=== PATIENT | female | born 1955 | race American Indian/Alaskan Native ===

== ENCOUNTER 2021-11-23 06:08 | Inpatient (IN) | payer MEDICARE, MEDICAID ==
--- NOTE | 2021-11-23 07:08 | Emergency Department Report ---
HPI - General Time Seen by Provider: 11/23/21 07:01 - HPI HPI: The patient came from [place] over the week. The last time she had hemodialysis with exactly 7 days prior to arrival. She has not been able to get set up for hemodialysis here. She just feels generally swollen but denies shortness of breath nausea vomiting fever chills chest pain focal weakness headache or any other associated symptoms. ED Past Medical Hx - Past Medical History Hx Hypertension: Yes Hx Renal Disease: Yes - Surgical History Additional Surgical History: Right anterior chest hemodialysis port - Family History Family history: no significant - Social History Smoking Status: Never Smoker Substance Use Type: None - Medications Home Medications: Home Medications Medication Instructions Recorded Confirmed Last Taken Type Albuterol Sulfate [Proair 2 puff IH Q6HR PRN 11/23/21 11/23/21 Unknown History Digihaler] Aspirin [Adult Aspirin] 81 mg PO DAILY 11/23/21 11/23/21 Unknown History Atorvastatin Calcium [Lipitor] 80 mg PO QHS 11/23/21 11/23/21 Unknown History Calcium Acetate 2 tab PO TID 11/23/21 11/23/21 Unknown History Clindamycin [Clindamycin CAP] 300 mg PO Q6H 11/23/21 11/23/21 Unknown History Fluticasone/Umeclidin/Vilanter 1 each IH DAILY 11/23/21 11/23/21 Unknown History [Trelegy Ellipta 100-62.5-25] Furosemide [Lasix TAB] 40 mg PO QDAY 11/23/21 11/23/21 Unknown History HYDROcodone/APAP 7.5-325 [[place] 1 each PO Q12HR 11/23/21 11/23/21 Unknown History 7.5/325] ISOSORBIDE MONOnitrate [Imdur ER] 60 mg PO QDAY 11/23/21 11/23/21 Unknown History Insulin Aspart (Nf) [NovoLOG 55 unit SQ TID 11/23/21 11/23/21 Unknown History Flexpen] Insulin Glargine [Lantus VIAL] 25 units SQ QHS 11/23/21 11/23/21 Unknown History Omeprazole 20 mg PO DAILY 11/23/21 11/23/21 Unknown History Sevelamer Carbonate [Renvela] 800 mg PO TIDWM 11/23/21 11/23/21 Unknown History Spironolactone [Aldactone] 100 mg PO QDAY 11/23/21 11/23/21 Unknown History amLODIPine [Norvasc] 10 mg PO DAILY 11/23/21 11/23/21 Unknown History carvediloL [Coreg] 25 mg PO BID 11/23/21 11/23/21 Unknown History lisinopriL [Lisinopril] 20 mg PO BID 11/23/21 11/23/21 Unknown History predniSONE 10 mg PO QDAY 11/23/21 11/23/21 Unknown History ED Review of Systems ROS: Stated complaint: ABD PAIN Other details as noted in HPI Physical Exam - Physical Exam Vital Signs: As charted per nursing, reviewed. Physical Exam: Physical Exam Constitutional: General: No acute distress. Appearance: No diaphoresis. HENT: Head: Normocephalic. Eyes: Pupils: Pupils are equal, round, and reactive to light. Neck: Musculoskeletal: Normal range of motion. Cardiovascular: Rate and Rhythm: Normal rate and regular rhythm. Pulses: Intact distal pulses. Heart sounds: Normal heart sounds. No murmur. Pulmonary: Effort: No respiratory distress. Breath sounds: No wheezing or rales. Chest: Chest wall: No tenderness. There is a right anterior chest hemodialysis port with no localized cellulitis. Abdominal: General: There is no distension. Palpations: There is no mass. Tenderness: There is no abdominal tenderness. There is no guarding or rebound. Musculoskeletal: Normal range of motion. Skin: General: Skin is warm and dry. Neurological: Mental Status: Alert and oriented to person, place, and time. Psychiatric: Mood and Affect: Mood and affect normal. Cognition and Memory: Memory normal. Judgment: Judgment normal. ED Course - Reevaluation(s) Reevaluation #1: 11/23/21 07:42 EKG done at 729 shows a rate of 65, normal. The rhythm is sinus rhythm, normal. There is an atrial premature complex with prolonged W[place] interval. There is a possible old anterolateral infarct. Right axis deviation. Reevaluation #2: 11/23/21 08:30 Chest x-ray shows fluid overload. Her chemistries were all within normal limits other than an elevated creatinine consistent with her ESRD. She will be coming into the hospital for hemodialysis. ED Medical Decision Making - Lab Data Result diagrams: 11/23/21 07:32 11/23/21 07:32 Critical care attestation.: If time is entered above; I have spent that time in minutes in the direct care of this critically ill patient, excluding procedure time. ED Disposition Clinical Impression: ESRD (end stage renal disease) on dialysis, Hypertension Disposition: 02 SHORT TERM HOSPITAL Is pt being admited?: Yes Does the pt Need Aspirin: No Condition: Stable Instructions: Hypertension (ED)
--- NOTE | 2021-11-23 07:43 | XRay Report ---
A chest single view INDICATION: Dyspnea IMPRESSION: Permacath terminates near the SVC/right atrial junction. The heart is enlarged and there is mild interstitial edema. Signer Name: Sylvain Rasheed MD Signed: 11/23/2021 7:39 AM Workstation Name: [email or web address]
[2021-11-23 08:00] LABS: Basophils % (Auto) 0.2 % (0.0-1.8); Eosinophils # (Auto) 0.2 K/mm3 (0.0-0.4); Eosinophils % (Auto) 3.4 % (0.0-4.3); Hematocrit 31.7 % (30.3-42.9); Hemoglobin 10.2 gm/dl (10.1-14.3); Lymphocytes # (Auto) 1.2 K/mm3 (1.2-5.4); Lymphocytes % (Auto) 22.5 % (13.4-35.0); Mean Corpuscular HGB Conc 32 % (30-34); Mean Corpuscular Volume 84 fl (79-97); Monocytes # (Auto) 0.7 K/mm3 (0.0-0.8); Monocytes % (Auto) 12.4 % (0.0-7.3); Platelet Count 133 K/mm3 (140-440); Red Blood Count 3.76 M/mm3 (3.65-5.03); Red Cell Distribution Width 19.7 % (13.2-15.2)
[2021-11-23] MEDS ORDERED: LISINOPRIL 20 MG TAB PO ONE (08:14)
[2021-11-23 08:19] LABS: Albumin 3.5 g/dL (3.9-5); Calcium 8.6 mg/dL (8.4-10.2)
[2021-11-23] MEDS ORDERED: ACETAMINOPHEN 325 MG TAB PO PRN (08:35)
[2021-11-23] MEDS ORDERED: oxyCODONE /ACETAMINOPHEN 5-325MG TAB PO PRN (08:35)
[2021-11-23] MEDS ORDERED: ONDANSETRON 4 MG/2 ML INJ IV PRN (08:35)
[2021-11-23] MEDS ORDERED: DOCUSATE SODIUM 100 MG CAP PO PRN (09:07)
[2021-11-23] MEDS ORDERED: MORPHINE 4 MG/1 ML INJ IV PRN (09:07)
[2021-11-23] MEDS: HEPARIN 5,000 UNIT/1 ML VIAL SUB-Q SCH ×2 (09:35→18:19)
[2021-11-23] MEDS ORDERED: FAMOTIDINE 20 MG TAB PO SCH (10:00)
--- NOTE | 2021-11-23 16:25 | Electrocardiograph Report ---
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
[2021-11-23] MEDS ORDERED: NON-FORMULARY EACH (Albuterol Sulfate [Proair Digihaler] 90 MCG Aer.Pw.Bas) IH PRN (16:30)
--- NOTE | 2021-11-23 16:33 | History and Physical Report ---
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 The patient describes having her last hemodialysis session last Wednesday due to her relocating from [place] to [place] to live with her daughter. The patient denied any fevers, chills, recent hospitalization, immobilization, history of DVT/PE, orthopnea, PND, or trauma. The patient does endorse having increased peripheral edema and tenderness in her lower extremities. She also endorses having nausea but denies upset stomach or diarrhea. In the ED the patient was found to be hypertensive at 203/102, tachypneic at 25, and tachycardic at 116. Patient quired 2 L nasal cannula. Her labs were remarkable for creatinine 9.1, alkaline phosphatase 231, and pro BNP 35,000. The patient is being admitted for further management of volume overload complicated by hypoxic respiratory failure in the setting of multiple missed hemodialysis sessions. Past History Past Medical History: acute IA, diabetes, dialysis, ESRD, heart failure, hypertension, hyperlipidemia, seizures, stroke Past Surgical History: cholecystectomy, Social history: single, lives with family, full code Family history: diabetes, hypertension Medications and Allergies Allergies Allergy/AdvReac Type Severity Reaction Status Date / Time No Known Allergies Allergy Verified 11/23/21 08:27 Home Medications Medication Instructions Recorded Confirmed Last Taken Type Albuterol Sulfate [Proair 2 puff IH Q6HR PRN 11/23/21 11/23/21 Unknown History Digihaler] Aspirin [Adult Aspirin] 81 mg PO DAILY 11/23/21 11/23/21 Unknown History Atorvastatin Calcium [Lipitor] 80 mg PO QHS 11/23/21 11/23/21 Unknown History Calcium Acetate 2 tab PO TID 11/23/21 11/23/21 Unknown History Clindamycin [Clindamycin CAP] 300 mg PO Q6H 11/23/21 11/23/21 Unknown History Fluticasone/Umeclidin/Vilanter 1 each IH DAILY 11/23/21 11/23/21 Unknown History [Trelegy Ellipta 100-62.5-25] Furosemide [Lasix TAB] 40 mg PO QDAY 11/23/21 11/23/21 Unknown History HYDROcodone/APAP 7.5-325 [[place] 1 each PO Q12HR 11/23/21 11/23/21 Unknown History 7.5/325] ISOSORBIDE MONOnitrate [Imdur ER] 60 mg PO QDAY 11/23/21 11/23/21 Unknown History Insulin Aspart (Nf) [NovoLOG 55 unit SQ TID 11/23/21 11/23/21 Unknown History Flexpen] Insulin Glargine [Lantus VIAL] 25 units SQ QHS 11/23/21 11/23/21 Unknown History Omeprazole 20 mg PO DAILY 11/23/21 11/23/21 Unknown History Sevelamer Carbonate [Renvela] 800 mg PO TIDWM 11/23/21 11/23/21 Unknown History Spironolactone [Aldactone] 100 mg PO QDAY 11/23/21 11/23/21 Unknown History amLODIPine [Norvasc] 10 mg PO DAILY 11/23/21 11/23/21 Unknown History carvediloL [Coreg] 25 mg PO BID 11/23/21 11/23/21 Unknown History lisinopriL [Lisinopril] 20 mg PO BID 11/23/21 11/23/21 Unknown History predniSONE 10 mg PO QDAY 11/23/21 11/23/21 Unknown History Active Meds: Active Medications Acetaminophen (Acetaminophen 325 Mg Tab) 650 mg PO Q4H PRN PRN Reason: Pain MILD(1-3)/Fever >100.5/MCKEON Docusate Sodium (Docusate Sodium 100 Mg Cap) 100 mg PO BID PRN PRN Reason: Constipation Famotidine (Famotidine 20 Mg Tab) 20 mg PO DAILY [facility] Last Admin: 11/23/21 10:45 Dose: 20 mg Heparin Sodium (Porcine) (Heparin 5,000 Unit/1 Ml Vial) 5,000 unit SUB-Q Q8H [facility] Last Admin: 11/23/21 09:35 Dose: 5,000 unit Morphine Sulfate (Morphine 4 Mg/1 Ml Inj) 2 mg IV Q4H PRN PRN Reason: Pain , Severe (7-10) Ondansetron HCl (Ondansetron 4 Mg/2 Ml Inj) 4 mg IV Q8H PRN PRN Reason: Nausea And Vomiting Oxycodone/Acetaminophen (Oxycodone /Acetaminophen 5-325mg Tab) 1 tab PO Q6H PRN PRN Reason: Pain, Moderate (4-6) Last Admin: 11/23/21 09:35 Dose: 1 tab Sodium Chloride (Sodium Chloride 0.9% 10 Ml Flush Syringe) 10 ml IV BID KRISTA Last Admin: 11/23/21 10:46 Dose: 10 ml Sodium Chloride (Sodium Chloride 0.9% 10 Ml Flush Syringe) 10 ml IV PRN PRN PRN Reason: LINE FLUSH Review of Systems All systems: negative Constitutional: fatigue Cardiovascular: leg edema Respiratory: cough Gastrointestinal: nausea Exam - Constitutional Vitals: Temp Pulse Resp BP Pulse Ox 97.6 F 59 L 16 133/70 97 11/23/21 15:22 11/23/21 15:22 11/23/21 10:12 11/23/21 15:22 11/23/21 15:22 General appearance: Present: no acute distress, well-nourished - EENT Eyes: Present: PERRL, EOM intact ENT: hearing intact, clear oral mucosa - Neck Neck: Present: supple, normal ROM - Respiratory Respiratory effort: normal Respiratory: bilateral: diminished (On 2 L nasal cannula) - Cardiovascular Rhythm: regular Heart Sounds: Present: S1 & S2 - Extremities Extremities: no ischemia, pulses intact, pulses symmetrical, normal temperature, normal color Extremity abnormal: edema (1+ pitting edema of bilateral lower extremities) Peripheral Pulses: within normal limits - Abdominal General gastrointestinal: Present: soft, non-tender, non-distended, normal bowel sounds Female genitourinary: Present: deferred - Rectal Rectal Exam: deferred - Integumentary Integumentary: Present: clear, warm, dry - Musculoskeletal Musculoskeletal: strength equal bilaterally - Psychiatric Psychiatric: appropriate mood/affect, intact judgment & insight, cooperative - Neurologic Neurologic: CNII-XII intact, moves all extremities - Allied Health Allied health notes reviewed: nursing Results - Labs CBC & Chem 7: 11/23/21 07:32 11/23/21 07:32 Labs: Laboratory Last Values WBC 5.4 K/mm3 (4.5-11.0) 11/23/21 07:32 RBC 3.76 M/mm3 (3.65-5.03) 11/23/21 07:32 Hgb 10.2 gm/dl (10.1-14.3) 11/23/21 07:32 Hct 31.7 % (30.3-42.9) 11/23/21 07:32 MCV 84 fl (79-97) 11/23/21 07:32 MCH 27 pg (28-32) L 11/23/21 07:32 MCHC 32 % (30-34) 11/23/21 07:32 RDW 19.7 % (13.2-15.2) H 11/23/21 07:32 Plt Count 133 K/mm3 (140-440) L 11/23/21 07:32 Lymph % (Auto) 22.5 % (13.4-35.0) 11/23/21 07:32 Jenkins % (Auto) 12.4 % (0.0-7.3) H 11/23/21 07:32 Eos % (Auto) 3.4 % (0.0-4.3) 11/23/21 07:32 Baso % (Auto) 0.2 % (0.0-1.8) 11/23/21 07:32 Lymph # (Auto) 1.2 K/mm3 (1.2-5.4) 11/23/21 07:32 Jenkins # (Auto) 0.7 K/mm3 (0.0-0.8) 11/23/21 07:32 Eos # (Auto) 0.2 K/mm3 (0.0-0.4) 11/23/21 07:32 Baso # (Auto) 0.0 K/mm3 (0.0-0.1) 11/23/21 07:32 Seg Neutrophils % 61.5 % (40.0-70.0) 11/23/21 07: Seg Neutrophils # 3.3 K/mm3 (1.8-7.7) 11/23/21 07:32 Sodium 145 mmol/L (137-145) 11/23/21 07:32 Potassium 4.5 mmol/L (3.6-5.0) 11/23/21 07:32 Chloride 103.4 mmol/L (98-107) 11/23/21 07:32 Carbon Dioxide 23 mmol/L (22-30) 11/23/21 07:32 Anion Gap 23 mmol/L 11/23/21 07:32 BUN 73 mg/dL (7-17) H 11/23/21 07:32 Creatinine 9.1 mg/dL (0.6-1.2) H 11/23/21 07:32 Estimated GFR 4 ml/min 11/23/21 07:32 BUN/Creatinine Ratio 8 % 11/23/21 07:32 Glucose 146 mg/dL (65-100) H 11/23/21 07:32 Calcium 8.6 mg/dL (8.4-10.2) 11/23/21 07:32 Phosphorus 6.00 mg/dL (2.5-4.5) H 11/23/21 09:21 Magnesium 2.80 mg/dL (1.7-2.3) H 11/23/21 09:20 Total Bilirubin 0.50 mg/dL (0.1-1.2) 11/23/21 07:32 AST 23 units/L (5-40) 11/23/21 07:32 ALT 18 units/L (7-56) 11/23/21 07:32 Alkaline Phosphatase 231 units/L (35-129) H 11/23/21 07:32 NT-Pro-B Natriuret Pep 34329 pg/mL (0-900) H 11/23/21 07:32 Total Protein 8.2 g/dL (6.3-8.2) 11/23/21 07:32 Albumin 3.5 g/dL (3.9-5) L 11/23/21 07:32 Albumin/Globulin Ratio 0.7 % 11/23/21 07:32 Johnson/IV: Voiding Method Toilet Assessment and Plan Assessment and plan: #ESRD on hemodialysis -Access: Permacath in the right upper chest -Outpatient schedule: [facility] -HD center: In [place]--> patient has relocated down to [place] -Nephrology consulted; appreciate recs. -Renally dose medications and avoid nephrotoxic drugs. Renal diet. #Congestive heart failure proBNP 35,000 Chest x-ray interpretation: Revealing increased interstitial edema, loss of bilateral costophrenic angles, increased cardiac silhouette, and right-sided PermCath Pending TTE to evaluate EF to determine if heart failure is a source of elevated proBNP versus multiple missed HD sessions Continue telemetry, strict I's/O's, fluid restriction of 1.5 L/day, and daily weights We will hold on diuresis as the patient does not produce urine Continue to monitor #Acute on chronic hypoxic respiratory failure - etiology: Volume overload in the setting of heart failure exacerbation versus missed HD sessions - baseline oxygen requirements: 2 L - supplemental oxygen: 3 L - Continue protocol: continue pulse oximetry, wean oxygen as tolerated, ordered incentive spirometry and educated patient on how to use it and its importance. - Walk test: We will attempt as patient clinically improves - continue to monitor #Elevated transaminases Alkaline phosphatase 231 Likely secondary to volume overload. Continue to monitor. No intervention at this time. #Hypertension #Hyperlipidemia - home medications: Imdur 60 mg daily, Coreg 25 mg twice daily, Lisinopril 20 mg twice daily, atorvastatin 80 mg daily, amlodipine 10 mg daily, Lasix 40 mg daily, Aldactone 100 mg daily - current medications: Imdur 60 mg daily, lisinopril 20 mg twice daily, atorvastatin 80 mg daily, amlodipine 10 mg daily, Aldactone 100 mg daily - SBP goal <160 and DBP goal <90 while inpatient - continue to monitor #Insulin dependent type II diabetes mellitus - hemoglobin A1c: Unknown - home regimen: Lantus 25 units nightly - current regimen: Lantus 25 units nightly - blood glucose goal 140-180 while inpatient - continue to monitor #GERD Continue home pantoprazole 40 mg daily #History of CVA with left-sided weakness (2007) Continue aspirin 81 mg daily and atorvastatin #CAD complicated by IA status post PCI (2007) Continue goal-directed therapy #Advanced care planning -Disease education conducted, care plan discussed, diagnoses discussed, progn osis discussed, and patient acknowledges understanding with care plan -Time: +30 min Advance Directives: Yes (Patient endorses having a living will) VTE prophylaxis?: Chemical Plan of care discussed with patient/family: Yes
[2021-11-23] MEDS ORDERED: NON-FORMULARY EACH (Spironolactone [Aldactone] 100 MG Tablet) PO SCH (16:45)
[2021-11-23] MEDS ORDERED: ALBUTEROL 2.5 MG/3 ML NEBU IH PRN (18:00)
[2021-11-23] MEDS: SEVELAMER CARBONATE 800 MG TAB PO SCH (18:19)
[2021-11-23] MEDS: amLODIPine 10 MG TAB PO SCH (18:20)
[2021-11-23] MEDS ORDERED: NON-FORMULARY EACH (Atorvastatin Calcium [Lipitor] 80 MG Tablet) PO SCH (22:00)
[2021-11-23] MEDS ORDERED: carvediloL 25 MG TAB PO SCH (22:00)
[2021-11-23] MEDS: LISINOPRIL 20 MG TAB PO SCH (22:27)
[2021-11-23] MEDS: INSULIN GLARGINE 100 UNITS/ML SUB-Q SCH (22:27)
[2021-11-24] MEDS: HEPARIN 5,000 UNIT/1 ML VIAL SUB-Q SCH ×4 (01:50→21:25)
[2021-11-24] MEDS ORDERED: SODIUM CHLORIDE 0.9% 100 ML IV PRN (08:00)
[2021-11-24 08:54] LABS: Albumin 3.3 g/dL (3.9-5); Calcium 8.6 mg/dL (8.4-10.2)
[2021-11-24] MEDS ORDERED: NON-FORMULARY EACH (Omeprazole [Omeprazole] 20 MG Capsule.Dr) PO SCH (10:00)
[2021-11-24] MEDS: SEVELAMER CARBONATE 800 MG TAB PO SCH ×3 (10:20→19:54)
[2021-11-24] MEDS: LISINOPRIL 20 MG TAB PO SCH ×2 (10:21→21:25)
[2021-11-24] MEDS: amLODIPine 10 MG TAB PO SCH ×2 (10:26→10:31)
[2021-11-24] MEDS: ASPIRIN EC 81 MG TAB PO SCH (10:26)
[2021-11-24] MEDS: PANTOPRAZOLE 20 MG TAB PO SCH (10:27)
--- NOTE | 2021-11-24 12:50 | Discharge Summary ---
Providers - Providers Date of Admission: 11/23/21 08:36 Date of discharge: 11/24/21 Attending physician: SIDRA LOPEZ MD 11/23/21 16:28 Consult to Physician [CONS] Routine Comment: Consulting Provider: LISA MANZANO Physician Instructions: Reason For Exam: ESRD requiring dialysis 11/24/21 11:14 Physical Therapy Evaluation and Treat [CONS] Routine Comment: Reason For Exam: Deconditioning Primary care physician: LOC GRADY Hospitalization Reason for admission: ESRD on dialysis, acute on chronic hypoxic resp failure, volume overload Condition: Stable Pertinent studies: Reviewed. Procedures: None. 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 The patient describes having her last hemodialysis session last Wednesday due to her relocating from [place] to [place] to live with her daughter. The patient denied any fevers, chills, recent hospitalization, immobilization, history of DVT/PE, orthopnea, PND, or trauma. The patient does endorse having increased peripheral edema and tenderness in her lower extremities. She also endorses having nausea but denies upset stomach or diarrhea. In the ED the patient was found to be hypertensive at 203/102, tachypneic at 25, and tachycardic at 116. Patient quired 2 L nasal cannula. Her labs were remarkable for creatinine 9.1, alkaline phosphatase 231, and pro BNP 35,000. The patient is being admitted for further management of volume overload complicated by hypoxic respiratory failure in the setting of multiple missed hemodialysis sessions. The patient received hemodialysis, and she remained hemodynamically stable with labs within normal limits. Patient will discharged with home health PT. Disposition: 01 HOME / SELF CARE / HOMELESS Final Discharge Diagnosis (Prints w/discharge instructions): ESRD on hemodialysis, congestive heart failure, acute on chronic hypoxic respiratory failure, elevated transaminases, hypertension, hyperlipidemia, insulin-dependent type 2 diabetes mellitus, GERD, history of CVA with left-sided weakness (2017), CAD complicated by HI status post PCI (2007) Time spent for discharge: 45 min Core Measure Documentation - Palliative Care Palliative Care/ Comfort Measures: Not Applicable - Core Measures Any of the following diagnoses?: history only Exam - Constitutional Vitals: Temp Pulse Resp BP Pulse Ox 98.4 F 63 16 153/71 100 11/24/21 08:03 11/24/21 10:31 11/24/21 08:03 11/24/21 10:31 11/24/21 08:03 General appearance: Present: no acute distress, well-nourished - EENT Eyes: Present: PERRL, EOM intact ENT: hearing intact, clear oral mucosa, dentition normal - Neck Neck: Present: supple, normal ROM, other (Permacath in right upper chest) - Respiratory Respiratory effort: normal Respiratory: bilateral: diminished (On baseline 2 L nasal cannula) - Cardiovascular Rhythm: regular Heart Sounds: Present: S1 & S2 - Extremities Extremities: no ischemia, pulses intact, pulses symmetrical, normal temperature, normal color, abnormal (AV fistula with palpable thrill in left upper extremity) Peripheral Pulses: within normal limits - Abdominal General gastrointestinal: Present: soft, non-tender, non-distended, normal bowel sounds Female genitourinary: Present: deferred - Rectal Rectal Exam: deferred - Integumentary Integumentary: Present: clear, warm, dry - Musculoskeletal Musculoskeletal: generalized weakness - Psychiatric Psychiatric: appropriate mood/affect, cooperative - Neurologic Neurologic: CNII-XII intact - Allied Health Allied health notes reviewed: nursing Plan Activity: advance as tolerated Diet: renal Additional Instructions: The patient is a 65-year-old female past medical history of hypertension, congestive heart failure, insulin-dependent type 2 diabetes mellitus, hyperlipidemia, seizure disorder, 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 The patient describes having her last hemodialysis session last Wednesday due to her relocating from [place] to [place] to live with her daughter. The patient denied any fevers, chills, recent hospitalization, immobilization, history of DVT/PE, orthopnea, PND, or trauma. The patient does endorse having increased peripheral edema and tenderness in her lower extremities. She also endorses having nausea but denies upset stomach or diarrhea. In the ED the patient was found to be hypertensive at 203/102, tachypneic at 25, and tachycardic at 116. Patient quired 2 L nasal cannula. Her labs were remarkable for creatinine 9.1, alkaline phosphatase 231, and pro BNP 35,000. The patient is being admitted for further management of volume overload complicated by hypoxic respiratory failure in the setting of multiple missed hemodialysis sessions. The patient received hemodialysis, and she remained hemodynamically stable with labs within normal limits. Patient will discharged with home health PT. Care Plan Goals: Patient is medically cleared for discharge. 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 The patient describes having her last hemodialysis session last Wednesday due to her relocating from [place] to [place] to live with her daughter. The patient denied any fevers, chills, recent hospitalization, immobilization, history of DVT/PE, orthopnea, PND, or trauma. The patient does endorse having increased peripheral edema and tenderness in her lower extremities. She also endorses having nausea but denies upset stomach or diarrhea. In the ED the patient was found to be hypertensive at 203/102, tachypneic at 25, and tachycardic at 116. Patient quired 2 L nasal cannula. Her labs were remarkable for creatinine 9.1, alkaline phosphatase 231, and pro BNP 35,000. The patient is being admitted for further management of volume overload complicated by hypoxic respiratory failure in the setting of multiple missed hemodialysis sessions. The patient received hemodialysis, and she remained hemodynamically stable with labs within normal limits. Patient will discharged with home health PT. Follow up with: LOC GRADY MD [Primary Care Provider] - 7 Days Prescriptions: Docusate Sodium [Colace CAP] 100 mg PO BID PRN #60 capsule PRN Reason: Constipation
--- NOTE | 2021-11-24 14:11 | Consultation ---
History of Present Illness - Reason for Consult end stage renal disease - History of Present Illness This is a pleasant 66-year-old -[place] female with a past medical history of end-stage renal disease secondary to hypertension, diabetes who recently moved from [place], presented to the emergency department secondary to chronic dialysis needs. She apparently has not had dialysis in over a week since she moved from [facility]. Nephrology was consulted for dialysis needs at this time. Past History Past Medical History: acute CA, diabetes, dialysis, ESRD, heart failure, hypertension, hyperlipidemia, seizures, stroke Past Surgical History: cholecystectomy, Social history: single, lives with family, full code Family history: diabetes, hypertension Medications and Allergies Allergies Allergy/AdvReac Type Severity Reaction Status Date / Time No Known Allergies Allergy Verified 11/23/21 08:27 Home Medications Medication Instructions Recorded Confirmed Last Taken Type Albuterol Sulfate [Proair 2 puff IH Q6HR PRN 11/23/21 11/23/21 Unknown History Digihaler] Aspirin [Adult Aspirin] 81 mg PO DAILY 11/23/21 11/23/21 Unknown History Atorvastatin Calcium [Lipitor] 80 mg PO QHS 11/23/21 11/23/21 Unknown History Calcium Acetate 2 tab PO TID 11/23/21 11/23/21 Unknown History Fluticasone/Umeclidin/Vilanter 1 each IH DAILY 11/23/21 11/23/21 Unknown History [Trelegy Ellipta 100-62.5-25] Furosemide [Lasix TAB] 40 mg PO QDAY 11/23/21 11/23/21 Unknown History ISOSORBIDE MONOnitrate [Imdur ER] 60 mg PO QDAY 11/23/21 11/23/21 Unknown History Insulin Aspart (Nf) [NovoLOG 55 unit SQ TID 11/23/21 11/23/21 Unknown History Flexpen] Insulin Glargine [Lantus VIAL] 25 units SQ QHS 11/23/21 11/23/21 Unknown History Omeprazole 20 mg PO DAILY 11/23/21 11/23/21 Unknown History Sevelamer Carbonate [Renvela] 800 mg PO TIDWM 11/23/21 11/23/21 Unknown History Spironolactone [Aldactone] 100 mg PO QDAY 11/23/21 11/23/21 Unknown History amLODIPine 10 mg PO DAILY 11/23/21 11/23/21 Unknown History carvediloL [Coreg] 25 mg PO BID 11/23/21 11/23/21 Unknown History lisinopriL [Lisinopril] 20 mg PO BID 11/23/21 11/23/21 Unknown History Docusate Sodium [Colace CAP] 100 mg PO BID PRN #60 capsule 11/24/21 Unknown Rx Active Meds: Active Medications Acetaminophen (Acetaminophen 325 Mg Tab) 650 mg PO Q4H PRN PRN Reason: Pain MILD(1-3)/Fever >100.5/MCKEON Albuterol (Albuterol 2.5 Mg/3 Ml Nebu) 2.5 mg IH Q6HR PRN PRN Reason: Wheezing Amlodipine Besylate (Amlodipine 10 Mg Tab) 10 mg PO DAILY [facility] Last Admin: 11/24/21 10:31 Dose: 10 mg Aspirin (Aspirin Ec 81 Mg Tab) 81 mg PO DAILY [facility] Last Admin: 11/24/21 10:26 Dose: 81 mg Atorvastatin Calcium (Atorvastatin 40 Mg Tab) 80 mg PO QHS [facility] Last Admin: 11/23/21 22:26 Dose: 80 mg Docusate Sodium (Docusate Sodium 100 Mg Cap) 100 mg PO BID PRN PRN Reason: Constipation Epoetin Karl-epbx (Epoetin Karl-Epbx 10,000 Unit/1 Ml Vial) 10,000 unit IV ABEL PRN PRN Reason: hemodialysis Heparin Sodium (Porcine) (Heparin 5,000 Unit/1 Ml Vial) 5,000 unit SUB-Q Q8H [facility] Last Admin: 11/24/21 10:39 Dose: 5,000 unit Sodium Chloride (Nacl 0.9%) 100 mls @ 999 mls/hr IV ABEL PRN PRN Reason: Hypotension Insulin Glargine (Insulin Glargine 100 Units/Ml) 25 units SUB-Q QHS [facility] Last Admin: 11/23/21 22:27 Dose: 25 units Isosorbide Mononitrate (Isosorbide Mononitrate Er 60 Mg Tab) 60 mg PO QDAY [facility] Last Admin: 11/24/21 10:27 Dose: 60 mg Lisinopril (Lisinopril 20 Mg Tab) 20 mg PO BID [facility] Last Admin: 11/24/21 10:21 Dose: 20 mg Morphine Sulfate (Morphine 4 Mg/1 Ml Inj) 2 mg IV Q4H PRN PRN Reason: Pain , Severe (7-10) Last Admin: 11/23/21 22:39 Dose: 2 mg Ondansetron HCl (Ondansetron 4 Mg/2 Ml Inj) 4 mg IV Q8H PRN PRN Reason: Nausea And Vomiting Oxycodone/Acetaminophen (Oxycodone /Acetaminophen 5-325mg Tab) 1 tab PO Q6H PRN PRN Reason: Pain, Moderate (4-6) Last Admin: 11/23/21 09:35 Dose: 1 tab Pantoprazole Sodium (Pantoprazole 20 Mg Tab) 20 mg PO QDAY [facility] Last Admin: 11/24/21 10:27 Dose: 20 mg Sevelamer Carbonate (Sevelamer Carbonate 800 Mg Tab) 800 mg PO TIDWM [facility] Last Admin: 11/24/21 10:20 Dose: 800 mg Sodium Chloride (Sodium Chloride 0.9% 10 Ml Flush Syringe) 10 ml IV BID [facility] Last Admin: 11/24/21 10:27 Dose: 10 ml Sodium Chloride (Sodium Chloride 0.9% 10 Ml Flush Syringe) 10 ml IV PRN PRN PRN Reason: LINE FLUSH Spironolactone (Spironolactone 50 Mg Tab) 100 mg PO QDAY [facility] Review of Systems All systems: negative Constitutional: fatigue, weakness Ears, nose, mouth and throat: deferred Cardiovascular: lightheadedness, shortness of breath Exam - Vital Signs Vital signs: Vital Signs Temp Pulse Resp BP Pulse Ox 98 F 116 H 18 203/102 100 11/23/21 06:20 11/23/21 06:20 11/23/21 06:20 11/23/21 06:20 11/23/21 06:20 - General Appearance General appearance: well-developed, appears stated age EENT: ATNC Neck: Present: neck supple, trachea midline Respiratory: Decreased Breath Sounds Heart: regular Gastrointestinal: Present: normal Integumentary: no rash, warm and dry Neurologic: no focal deficit, alert and oriented x3 Musculoskeletal: Present: deferred Psychiatric: cooperative Results - Lab Results 11/23/21 07:32 11/24/21 07:53 Most recent lab results Calcium 8.6 mg/dL (8.4-10.2) 11/24/21 07:53 Phosphorus 6.00 mg/dL (2.5-4.5) H 11/23/21 09:21 Magnesium 2.80 mg/dL (1.7-2.3) H 11/23/21 09:20 Assessment and Plan - Patient Problems (1) Fluid overload Current Visit: Yes Status: Acute Plan to address problem: We will try to optimize volume status with adequate ultrafiltration during dialysis today. (2) ESRD (end stage renal disease) on dialysis Current Visit: Yes Status: Chronic Plan to address problem: Orders placed for dialysis today. Patient recently moved from [place] and would benefit from case management assistance to help place in a outpatient dialysis facility in this area. He needs to be followed up by a hotel reservationist as an outpatient for chronic hemodialysis needs. (3) Hypertension Current Visit: Yes Status: Chronic Plan to address problem: Monitor blood pressures under current regimen. (4) Type 2 diabetes mellitus with diabetic chronic kidney disease Current Visit: Yes Status: Chronic Qualifiers: Chronic kidney disease stage: on chronic dialysis Plan to address problem: Diabetes management per primary attending.
[2021-11-24 16:01] LABS: Hepatitis B Surface Antigen Non-Reactive (Negative); Hepatitis C Virus Antibody Non-Reactive (NonReactive)
[2021-11-24] MEDS: EPOETIN ALFA-EPBX 10,000 UNIT/1 ML VIAL IV PRN (18:30)
[2021-11-24] MEDS: SPIRONOLACTONE 50 MG TAB PO SCH (19:53)
[2021-11-24] MEDS: INSULIN GLARGINE 100 UNITS/ML SUB-Q SCH (21:24)
[2021-11-25] MEDS: HEPARIN 5,000 UNIT/1 ML VIAL SUB-Q SCH ×3 (05:47→22:11)
[2021-11-25] MEDS ORDERED: DEXTROSE 50% IN WATER (25GM) 50 ML SYRINGE IV ONE (07:30)
[2021-11-25] MEDS: SEVELAMER CARBONATE 800 MG TAB PO SCH ×3 (08:38→20:18)
--- NOTE | 2021-11-25 09:17 | Progress Note ---
Assessment and Plan - Patient Problems (1) Fluid overload Current Visit: Yes Status: Acute Plan to address problem: We will try to optimize volume status with adequate ultrafiltration during dialysis. Respiratory status is stable at this time and she is on room air. (2) ESRD (end stage renal disease) on dialysis Current Visit: Yes Status: Chronic Plan to address problem: Patient tolerated hemodialysis yesterday without any issues. Patient recently moved from [place] and would benefit from case management assistance to help place in a outpatient dialysis facility in this area. Anup needs to be followed up by a aquatics coordinator as an outpatient for chronic hemodialysis needs. Would recommend sending referral to [facility] here in [facility]. (3) Hypertension Current Visit: Yes Status: Chronic Plan to address problem: Monitor blood pressures under current regimen. (4) Type 2 diabetes mellitus with diabetic chronic kidney disease Current Visit: Yes Status: Chronic Qualifiers: Chronic kidney disease stage: on chronic dialysis Plan to address problem: Diabetes management per primary attending. Subjective Date of service: 11/25/21 Interval history: No acute issues this morning. Tolerated hemodialysis well without any complaints. Eating breakfast. Case management working on outpatient dialysis placement. Objective - Vital Signs Vital signs: Vital Signs - 12hr 11/24/21 11/24/21 11/25/21 22:00 23:34 03:57 Temperature 99.0 F 97.2 F L Pulse Rate 67 61 Respiratory 16 18 Rate Blood Pressure 133/63 137/68 O2 Sat by Pulse 98 98 97 Oximetry 11/25/21 07:31 Temperature 98.6 F Pulse Rate 56 L Respiratory 18 Rate Blood Pressure 136/83 O2 Sat by Pulse 93 Oximetry - General Appearance General appearance: well-nourished, appears stated age EENT: ATNC Neck: no JVD Cardiology: regular Gastrointestinal: normal Integumentary: warm and dry Neurologic: no focal deficit Musculoskeletal: deferred Psychiatric: cooperative - Lab 11/23/21 07:32 11/24/21 07:53 Most recent lab results Calcium 8.6 mg/dL (8.4-10.2) 11/24/21 07:53 Phosphorus 6.00 mg/dL (2.5-4.5) H 11/23/21 09:21 Magnesium 2.80 mg/dL (1.7-2.3) H 11/23/21 09:20 Medications & Allergies - Medications Allergies/Adverse Reactions: Allergies No Known Allergies Allergy (Verified 11/23/21 08:27) Home Medications: Home Medications Medication Instructions Recorded Confirmed Last Taken Type Albuterol Sulfate [Proair 2 puff IH Q6HR PRN 11/23/21 11/23/21 Unknown History Digihaler] Aspirin [Adult Aspirin] 81 mg PO DAILY 11/23/21 11/23/21 Unknown History Atorvastatin Calcium [Lipitor] 80 mg PO QHS 11/23/21 11/23/21 Unknown History Calcium Acetate 2 tab PO TID 11/23/21 11/23/21 Unknown History Fluticasone/Umeclidin/Vilanter 1 each IH DAILY 11/23/21 11/23/21 Unknown History [Trelegy Ellipta 100-62.5-25] Furosemide [Lasix TAB] 40 mg PO QDAY 11/23/21 11/23/21 Unknown History ISOSORBIDE MONOnitrate [Imdur ER] 60 mg PO QDAY 11/23/21 11/23/21 Unknown History Insulin Aspart (Nf) [NovoLOG 55 unit SQ TID 11/23/21 11/23/21 Unknown History Flexpen] Insulin Glargine [Lantus VIAL] 25 units SQ QHS 11/23/21 11/23/21 Unknown History Omeprazole 20 mg PO DAILY 11/23/21 11/23/21 Unknown History Sevelamer Carbonate [Renvela] 800 mg PO TIDWM 11/23/21 11/23/21 Unknown History Spironolactone [Aldactone] 100 mg PO QDAY 11/23/21 11/23/21 Unknown History amLODIPine 10 mg PO DAILY 11/23/21 11/23/21 Unknown History carvediloL [Coreg] 25 mg PO BID 11/23/21 11/23/21 Unknown History lisinopriL [Lisinopril] 20 mg PO BID 11/23/21 11/23/21 Unknown History Docusate Sodium [Colace CAP] 100 mg PO BID PRN #60 capsule 11/24/21 Unknown Rx Active Medications: Generic Name Dose Route Start Last Admin Trade Name Freq PRN Reason Stop Dose Admin Acetaminophen 650 mg 11/23/21 08:35 Acetaminophen 325 Mg Tab PO Q4H PRN Pain MILD(1-3)/Fever >100.5/MCKEON Albuterol 2.5 mg 11/23/21 18:00 Albuterol 2.5 Mg/3 Ml Nebu IH Q6HR PRN Wheezing Amlodipine Besylate 10 mg 11/23/21 17:00 11/24/21 10:31 Amlodipine 10 Mg Tab PO 10 mg DAILY KRISTA Administration Aspirin 81 mg 11/24/21 10:00 11/24/21 10:26 Aspirin Ec 81 Mg Tab PO 81 mg DAILY KRISTA Administration Atorvastatin Calcium 80 mg 11/23/21 22:00 11/24/21 21:25 Atorvastatin 40 Mg Tab PO 80 mg QHS KRISTA Administration Docusate Sodium 100 mg 11/23/21 09:07 Docusate Sodium 100 Mg Cap PO BID PRN Constipation Epoetin Karl-epbx 10,000 unit 11/24/21 08:00 11/24/21 18:30 Epoetin Karl-Epbx 10,000 Unit/1 Ml Vial IV 10,000 unit ABEL PRN Administration hemodialysis Heparin Sodium (Porcine) 5,000 unit 11/24/21 22:00 11/25/21 05:47 Heparin 5,000 Unit/1 Ml Vial SUB-Q 5,000 unit Q8H [facility]STA Administration Sodium Chloride 100 mls @ 999 mls/hr 11/24/21 08:00 Nacl 0.9% IV ABEL PRN Hypotension Insulin Glargine 25 units 11/23/21 22:00 11/24/21 21:24 Insulin Glargine 100 Units/Ml SUB-Q 25 units QHS [facility]STA Administration Isosorbide Mononitrate 60 mg 11/24/21 10:00 11/24/21 10:27 Isosorbide Mononitrate Er 60 Mg Tab PO 60 mg QDAY [facility]STA Administration Lisinopril 20 mg 11/23/21 22:00 11/24/21 21:25 Lisinopril 20 Mg Tab PO 20 mg BID KRISTA Administration Morphine Sulfate 2 mg 11/23/21 09:07 11/23/21 22:39 Morphine 4 Mg/1 Ml Inj IV 2 mg Q4H PRN Administration Pain , Severe (7-10) Ondansetron HCl 4 mg 11/23/21 08:35 Ondansetron 4 Mg/2 Ml Inj IV Q8H PRN Nausea And Vomiting Oxycodone/Acetaminophen 1 tab 11/23/21 08:35 11/23/21 09:35 Oxycodone /Acetaminophen 5-325mg Tab PO 1 tab Q6H PRN Administration Pain, Moderate (4-6) Pantoprazole Sodium 20 mg 11/24/21 10:00 11/24/21 10:27 Pantoprazole 20 Mg Tab PO 20 mg QDAY KRISTA Administration Sevelamer Carbonate 800 mg 11/23/21 17:00 11/25/21 08:38 Sevelamer Carbonate 800 Mg Tab PO 800 mg TIDWM [facility]STA Administration Sodium Chloride 10 ml 11/23/21 10:00 11/24/21 21:25 Sodium Chloride 0.9% 10 Ml Flush Syringe IV 10 ml BID KRISTA Administration Sodium Chloride 10 ml 11/23/21 08:35 Sodium Chloride 0.9% 10 Ml Flush Syringe IV PRN PRN LINE FLUSH Spironolactone 100 mg 11/24/21 17:00 11/24/21 19:53 Spironolactone 50 Mg Tab PO 100 mg QDAY KRISTA Administration
[2021-11-25] MEDS: PANTOPRAZOLE 20 MG TAB PO SCH (10:03)
[2021-11-25] MEDS: amLODIPine 10 MG TAB PO SCH (10:03)
[2021-11-25] MEDS: ASPIRIN EC 81 MG TAB PO SCH (10:03)
[2021-11-25] MEDS: SPIRONOLACTONE 50 MG TAB PO SCH (10:05)
[2021-11-25] MEDS: LISINOPRIL 20 MG TAB PO SCH ×2 (10:05→22:11)
[2021-11-25 11:36] LABS: Calcium 8.6 mg/dL (8.4-10.2)
--- NOTE | 2021-11-25 13:01 | Progress Note ---
Assessment and Plan Assessment and plan: #ESRD on hemodialysis -Access: Permacath in the right upper chest -Outpatient schedule: [facility] -HD center: In [place]--> patient has relocated down to [place] -Nephrology consulted; appreciate recs. -Renally dose medications and avoid nephrotoxic drugs. Renal diet. -Pending outpatient chair placement #heart failure with reduced ejection fraction -not in acute exacerbation proBNP 35,000; TTE LVEF 35-40% Chest x-ray interpretation: Revealing increased interstitial edema, loss of bilateral costophrenic angles, increased cardiac silhouette, and right-sided PermCath Continue telemetry, strict I's/O's, fluid restriction of 1.5 L/day, and daily weights We will hold on diuresis as the patient does not produce urine -continue GDMT at home doses #Acute on chronic hypoxic respiratory failure - etiology: Volume overload in the setting of missed HD sessions - baseline oxygen requirements: 2 L - currently on RA - Continue protocol: continue pulse oximetry, wean oxygen as tolerated, ordered incentive spirometry and educated patient on how to use it and its importance. #Elevated transaminases Alkaline phosphatase 231 Likely secondary to volume overload. Continue to monitor. No intervention at this time. #Hypertension #Hyperlipidemia - home medications: Imdur 60 mg daily, Coreg 25 mg twice daily, Lisinopril 20 mg twice daily, atorvastatin 80 mg daily, amlodipine 10 mg daily, Lasix 40 mg daily, Aldactone 100 mg daily - current medications: Imdur 60 mg daily, lisinopril 20 mg twice daily, atorvastatin 80 mg daily, amlodipine 10 mg daily, Aldactone 100 mg daily - SBP goal <160 and DBP goal <90 while inpatient - continue to monitor #Insulin dependent type II diabetes mellitus - hemoglobin A1c: Unknown - home regimen: Lantus 25 units nightly - current regimen: Lantus 25 units nightly - blood glucose goal 140-180 while inpatient - continue to monitor #GERD Continue home pantoprazole 40 mg daily #History of CVA with left-sided weakness (2007) Continue aspirin 81 mg daily and atorvastatin #CAD complicated by CO status post PCI (2007) Continue goal-directed therapy #Advanced care planning -Disease education conducted, care plan discussed, diagnoses discussed, prognosis discussed, and patient acknowledges understanding with care plan -Time: +30 min History Interval history: No acute events overnight. Patient reports feeling better after dialysis. Has noticed improved lower extremity edema. Denies cough, shortness of breath and chest pain. Hospitalist Physical - Physical exam Narrative exam: GENERAL: Well-developed well-nourished. Sitting on the side of the bed in no acute distress. HEENT: Normocephalic. Atraumatic. NECK: Supple. CHEST/LUNGS: Permacath in right chest. CTAB on room air HEART/CARDIOVASCULAR: RRR. No murmur, rubs or gallops appreciated. ABDOMEN: +BS. NT/ND. SKIN: No rashes noted. NEURO: No focal motor deficit. Follows all commands and is ambulatory. MUSCULOSKELETAL: No joint effusion EXTREMITIES: Old AV fistula left upper extremity without bruit or thrill. PSYCH: Cooperative. - Constitutional Vitals: Temp Pulse Resp BP Pulse Ox 98.6 F 59 L 18 136/83 93 11/25/21 07:31 11/25/21 10:03 11/25/21 07:31 11/25/21 10:05 11/25/21 07:31 General appearance: Present: no acute distress, well-nourished Results - Labs CBC & Chem 7: 11/23/21 07:32 11/25/21 09:45 Labs: Laboratory Last Values WBC 5.4 K/mm3 (4.5-11.0) 11/23/21 07:32 RBC 3.76 M/mm3 (3.65-5.03) 11/23/21 07:32 Hgb 10.2 gm/dl (10.1-14.3) 11/23/21 07:32 Hct 31.7 % (30.3-42.9) 11/23/21 07:32 MCV 84 fl (79-97) 11/23/21 07:32 MCH 27 pg (28-32) L 11/23/21 07:32 MCHC 32 % (30-34) 11/23/21 07:32 RDW 19.7 % (13.2-15.2) H 11/23/21 07:32 Plt Count 133 K/mm3 (140-440) L 11/23/21 07:32 Lymph % (Auto) 22.5 % (13.4-35.0) 11/23/21 07:32 Fisher % (Auto) 12.4 % (0.0-7.3) H 11/23/21 07:32 Eos % (Auto) 3.4 % (0.0-4.3) 11/23/21 07:32 Baso % (Auto) 0.2 % (0.0-1.8) 11/23/21 07:32 Lymph # (Auto) 1.2 K/mm3 (1.2-5.4) 11/23/21 07:32 Fisher # (Auto) 0.7 K/mm3 (0.0-0.8) 11/23/21 07:32 Eos # (Auto) 0.2 K/mm3 (0.0-0.4) 11/23/21 07:32 Baso # (Auto) 0.0 K/mm3 (0.0-0.1) 11/23/21 07:32 Seg Neutrophils % 61.5 % (40.0-70.0) 11/23/21 07:32 Seg Neutrophils # 3.3 K/mm3 (1.8-7.7) 11/23/21 07:32 Sodium 138 mmol/L (137-145) 11/25/21 09:45 Potassium 4.1 mmol/L (3.6-5.0) 11/25/21 09:45 Chloride 97.2 mmol/L (98-107) L 11/25/21 09:45 Carbon Dioxide 23 mmol/L (22-30) 11/25/21 09:45 Anion Gap 22 mmol/L 11/25/21 09:45 BUN 40 mg/dL (7-17) H 11/25/21 09:45 Creatinine 5.7 mg/dL (0.6-1.2) H 11/25/21 09:45 Estimated GFR 9 ml/min 11/25/21 09:45 BUN/Creatinine Ratio 7 % 11/25/21 09:45 Glucose 85 mg/dL (65-100) 11/25/21 09:45 POC Glucose 104 mg/dL (70-105) 11/25/21 10:54 Calcium 8.6 mg/dL (8.4-10.2) 11/25/21 09:45 Phosphorus 6.00 mg/dL (2.5-4.5) H 11/23/21 09:21 Magnesium 2.80 mg/dL (1.7-2.3) H 11/23/21 09:20 Total Bilirubin 0.50 mg/dL (0.1-1.2) 11/24/21 07:53 AST 20 units/L (5-40) 11/24/21 07:53 ALT 15 units/L (7-56) 11/24/21 07:53 Alkaline Phosphatase 200 units/L (35-129) H 11/24/21 07:53 NT-Pro-B Natriuret Pep 47528 pg/mL (0-900) H 11/23/21 07:32 Total Protein 7.9 g/dL (6.3-8.2) 11/24/21 07:53 Albumin 3.3 g/dL (3.9-5) L 11/24/21 07:53 Albumin/Globulin Ratio 0.7 % 11/24/21 07:53 Hep Bs Antigen Non-reactive (Negative) 11/24/21 09:31 Hep B Core IgM Ab Non-reactive (NonReactive) 11/24/21 09:31 Hepatitis C Antibody Non-reactive (NonReactive) 11/24/21 09:31 Johnson/IV: Voiding Method Toilet Active Medications - Current Medications Current Medications: Generic Name Dose Route Start Last Admin Trade Name Freq PRN Reason Stop Dose Admin Acetaminophen 650 mg 11/23/21 08:35 Acetaminophen 325 Mg Tab PO Q4H PRN Pain MILD(1-3)/Fever >100.5/MCKEON Albuterol 2.5 mg 11/23/21 18:00 Albuterol 2.5 Mg/3 Ml Nebu IH Q6HR PRN Wheezing Amlodipine Besylate 10 mg 11/23/21 17:00 11/25/21 10:03 Amlodipine 10 Mg Tab PO 10 mg DAILY KRISTA Administration Aspirin 81 mg 11/24/21 10:00 11/25/21 10:03 Aspirin Ec 81 Mg Tab PO 81 mg DAILY KRISTA Administration Atorvastatin Calcium 80 mg 11/23/21 22:00 11/24/21 21:25 Atorvastatin 40 Mg Tab PO 80 mg QHS KRISTA Administration Docusate Sodium 100 mg 11/23/21 09:07 Docusate Sodium 100 Mg Cap PO BID PRN Constipation Epoetin Karl-epbx 10,000 unit 11/24/21 08:00 11/24/21 18:30 Epoetin Karl-Epbx 10,000 Unit/1 Ml Vial IV 10,000 unit ABEL PRN Administration hemodialysis Heparin Sodium (Porcine) 5,000 unit 11/24/21 22:00 11/25/21 05:47 Heparin 5,000 Unit/1 Ml Vial SUB-Q 5,000 unit Q8H KRISTA Administration Sodium Chloride 100 mls @ 999 mls/hr 11/24/21 08:00 Nacl 0.9% IV ABEL PRN Hypotension Insulin Glargine 25 units 11/23/21 22:00 11/24/21 21:24 Insulin Glargine 100 Units/Ml SUB-Q 25 units QHS KRISTA Administration Isosorbide Mononitrate 60 mg 11/24/21 10:00 11/25/21 09:59 Isosorbide Mononitrate Er 60 Mg Tab PO 60 mg QDAY KRISTA Administration Lisinopril 20 mg 11/23/21 22:00 11/25/21 10:05 Lisinopril 20 Mg Tab PO 20 mg BID KRISTA Administration Morphine Sulfate 2 mg 11/23/21 09:07 11/23/21 22:39 Morphine 4 Mg/1 Ml Inj IV 2 mg Q4H PRN Administration Pain , Severe (7-10) Ondansetron HCl 4 mg 11/23/21 08:35 Ondansetron 4 Mg/2 Ml Inj IV Q8H PRN Nausea And Vomiting Oxycodone/Acetaminophen 1 tab 11/23/21 08:35 11/23/21 09:35 Oxycodone /Acetaminophen 5-325mg Tab PO 1 tab Q6H PRN Administration Pain, Moderate (4-6) Pantoprazole Sodium 20 mg 11/24/21 10:00 11/25/21 10:03 Pantoprazole 20 Mg Tab PO 20 mg QDAY KRISTA Administration Sevelamer Carbonate 800 mg 11/23/21 17:00 11/25/21 08:38 Sevelamer Carbonate 800 Mg Tab PO 800 mg TIDWM KRISTA Administration Sodium Chloride 10 ml 11/23/21 10:00 11/25/21 10:07 Sodium Chloride 0.9% 10 Ml Flush Syringe IV 10 ml BID KRISTA Administration Sodium Chloride 10 ml 11/23/21 08:35 Sodium Chloride 0.9% 10 Ml Flush Syringe IV PRN PRN LINE FLUSH Spironolactone 100 mg 11/24/21 17:00 11/25/21 10:05 Spironolactone 50 Mg Tab PO 100 mg QDAY KRISTA Administration
[2021-11-25] MEDS: INSULIN GLARGINE 100 UNITS/ML SUB-Q SCH (22:11)
[2021-11-26] MEDS: HEPARIN 5,000 UNIT/1 ML VIAL SUB-Q SCH ×3 (05:05→22:07)
[2021-11-26] MEDS: SEVELAMER CARBONATE 800 MG TAB PO SCH ×3 (08:29→17:10)
[2021-11-26] MEDS: PANTOPRAZOLE 20 MG TAB PO SCH (10:10)
[2021-11-26] MEDS: ASPIRIN EC 81 MG TAB PO SCH (10:10)
--- NOTE | 2021-11-26 10:34 | Progress Note ---
Assessment and Plan - Patient Problems (1) Fluid overload Current Visit: Yes Status: Acute Plan to address problem: We will try to optimize volume status with adequate ultrafiltration during dialysis. . (2) ESRD (end stage renal disease) on dialysis Current Visit: Yes Status: Chronic Plan to address problem: Patient tolerated hemodialysis yesterday without any issues. Patient recently moved from [place] and would benefit from case management assistance to help place in a outpatient dialysis facility in this area. Shee needs to be followed up by a sugar cane grower as an outpatient for chronic hemodialysis needs. Would recommend sending referral to [facility] here in [facility]. Discussed with CM, pending call back and confirmation of chair time at [facility]. (3) Hypertension Current Visit: Yes Status: Chronic Plan to address problem: Monitor blood pressures under current regimen. (4) Type 2 diabetes mellitus with diabetic chronic kidney disease Current Visit: Yes Status: Chronic Qualifiers: Chronic kidney disease stage: on chronic dialysis Plan to address problem: Diabetes management per primary attending. Subjective Date of service: 11/26/21 Interval history: Patient pending HD. Working with PT this am. Objective - Vital Signs Vital signs: Vital Signs - 12hr 11/25/21 11/25/21 11/26/21 22:33 23:32 00:10 Temperature 98.4 F Pulse Rate 68 70 Respiratory 18 Rate Blood Pressure 126/63 Blood Pressure [Right] O2 Sat by Pulse 98 98 Oximetry 11/26/21 11/26/21 11/26/21 04:06 09:00 09:59 Temperature 98.4 F 98.8 F Pulse Rate 66 73 Respiratory 16 14 Rate Blood Pressure 142/76 Blood Pressure 147/78 [Right] O2 Sat by Pulse 98 96 98 Oximetry - General Appearance General appearance: well-developed EENT: ATNC Neck: no JVD Respiratory: Present: Clear to Ascultation Cardiology: regular Gastrointestinal: normal Integumentary: no rash Neurologic: no focal deficit Musculoskeletal: deferred Psychiatric: cooperative - Lab 11/23/21 07:32 11/25/21 09:45 Most recent lab results Calcium 8.6 mg/dL (8.4-10.2) 11/25/21 09:45 Phosphorus 6.00 mg/dL (2.5-4.5) H 11/23/21 09:21 Magnesium 2.80 mg/dL (1.7-2.3) H 11/23/21 09:20 - Allied health notes Allied health notes reviewed: nursing Medications & Allergies - Medications Allergies/Adverse Reactions: Allergies No Known Allergies Allergy (Verified 11/23/21 08:27) Home Medications: Home Medications Medication Instructions Recorded Confirmed Last Taken Type Albuterol Sulfate [Proair 2 puff IH Q6HR PRN 11/23/21 11/23/21 Unknown History Digihaler] Aspirin [Adult Aspirin] 81 mg PO DAILY 11/23/21 11/23/21 Unknown History Atorvastatin Calcium [Lipitor] 80 mg PO QHS 11/23/21 11/23/21 Unknown History Calcium Acetate 2 tab PO TID 11/23/21 11/23/21 Unknown History Fluticasone/Umeclidin/Vilanter 1 each IH DAILY 11/23/21 11/23/21 Unknown History [Trelegy Ellipta 100-62.5-25] Furosemide [Lasix TAB] 40 mg PO QDAY 11/23/21 11/23/21 Unknown History ISOSORBIDE MONOnitrate [Imdur ER] 60 mg PO QDAY 11/23/21 11/23/21 Unknown Histo ry Insulin Aspart (Nf) [NovoLOG 55 unit SQ TID 11/23/21 11/23/21 Unknown History Flexpen] Insulin Glargine [Lantus VIAL] 25 units SQ QHS 11/23/21 11/23/21 Unknown History Omeprazole 20 mg PO DAILY 11/23/21 11/23/21 Unknown History Sevelamer Carbonate [Renvela] 800 mg PO TIDWM 11/23/21 11/23/21 Unknown History Spironolactone [Aldactone] 100 mg PO QDAY 11/23/21 11/23/21 Unknown History amLODIPine 10 mg PO DAILY 11/23/21 11/23/21 Unknown History carvediloL [Coreg] 25 mg PO BID 11/23/21 11/23/21 Unknown History lisinopriL [Lisinopril] 20 mg PO BID 11/23/21 11/23/21 Unknown History Docusate Sodium [Colace CAP] 100 mg PO BID PRN #60 capsule 11/24/21 Unknown Rx Active Medications: Generic Name Dose Route Start Last Admin Trade Name Freq PRN Reason Stop Dose Admin Acetaminophen 650 mg 11/23/21 08:35 Acetaminophen 325 Mg Tab PO Q4H PRN Pain MILD(1-3)/Fever >100.5/MCKEON Albuterol 2.5 mg 11/23/21 18:00 Albuterol 2.5 Mg/3 Ml Nebu IH Q6HR PRN Wheezing Amlodipine Besylate 10 mg 11/23/21 17:00 11/25/21 10:03 Amlodipine 10 Mg Tab PO 10 mg DAILY KRISTA Administration Aspirin 81 mg 11/24/21 10:00 11/26/21 10:10 Aspirin Ec 81 Mg Tab PO 81 mg DAILY KRISTA Administration Atorvastatin Calcium 80 mg 11/23/21 22:00 11/25/21 22:11 Atorvastatin 40 Mg Tab PO 80 mg QHS [facility] Administration Docusate Sodium 100 mg 11/23/21 09:07 Docusate Sodium 100 Mg Cap PO BID PRN Constipation Epoetin Karl-epbx 10,000 unit 11/24/21 08:00 11/24/21 18:30 Epoetin Karl-Epbx 10,000 Unit/1 Ml Vial IV 10,000 unit ABEL PRN Administration hemodialysis Heparin Sodium (Porcine) 5,000 unit 11/24/21 22:00 11/26/21 05:05 Heparin 5,000 Unit/1 Ml Vial SUB-Q 5,000 unit Q8H [facility] Administration Sodium Chloride 100 mls @ 999 mls/hr 11/24/21 08:00 Nacl 0.9% IV ABEL PRN Hypotension Insulin Glargine 18 units 11/26/21 22:00 Insulin Glargine 100 Units/Ml SUB-Q QHS [facility] Isosorbide Mononitrate 60 mg 11/24/21 10:00 11/25/21 09:59 Isosorbide Mononitrate Er 60 Mg Tab PO 60 mg QDAY [facility] Administration Lisinopril 20 mg 11/23/21 22:00 11/25/21 22:11 Lisinopril 20 Mg Tab PO 20 mg BID [facility] Administration Morphine Sulfate 2 mg 11/23/21 09:07 11/23/21 22:39 Morphine 4 Mg/1 Ml Inj IV 2 mg Q4H PRN Administration Pain , Severe (7-10) Ondansetron HCl 4 mg 11/23/21 08:35 Ondansetron 4 Mg/2 Ml Inj IV Q8H PRN Nausea And Vomiting Oxycodone/Acetaminophen 1 tab 11/23/21 08:35 11/23/21 09:35 Oxycodone /Acetaminophen 5-325mg Tab PO 1 tab Q6H PRN Administration Pain, Moderate (4-6) Pantoprazole Sodium 20 mg 11/24/21 10:00 11/26/21 10:10 Pantoprazole 20 Mg Tab PO 20 mg QDAY KRISTA Administration Sevelamer Carbonate 800 mg 11/23/21 17:00 11/26/21 08:29 Sevelamer Carbonate 800 Mg Tab PO 800 mg TIDWM KRISTA Administration Sodium Chloride 10 ml 11/23/21 10:00 11/26/21 10:11 Sodium Chloride 0.9% 10 Ml Flush Syringe IV 10 ml BID KRISTA Administration Sodium Chloride 10 ml 11/23/21 08:35 Sodium Chloride 0.9% 10 Ml Flush Syringe IV PRN PRN LINE FLUSH Spironolactone 100 mg 11/24/21 17:00 11/25/21 10:05 Spironolactone 50 Mg Tab PO 100 mg QDAY KRISTA Administration
--- NOTE | 2021-11-26 11:29 | Discharge Summary ---
Providers - Providers Date of Admission: 11/23/21 08:36 Date of discharge: 11/26/21 Attending physician: CONOR CRUZ MD 11/23/21 16:28 Consult to Physician [CONS] Routine Comment: Consulting Provider: LISA MANZANO Physician Instructions: Reason For Exam: ESRD requiring dialysis 11/24/21 11:14 Physical Therapy Evaluation and Treat [CONS] Routine Comment: Reason For Exam: Deconditioning Primary care physician: LOC GRADY Hospitalization Reason for admission: HYPOXIC RESPIRATORY FAILURE Condition: Stable Hospital course: 65-year-old patient with history of hypertension, congestive heart failure and previous CVA who presented to the emergency department after having cough and shortness of breath after missing hemodialysis sessions. She recently relocated from [place] and had not yet had a hemodialysis center set up. Patient was admitted for hemodialysis. Case management was consulted to help with location of an outpatient hemodialysis chair. Once chair was secured, patient was discharged home with family. Disposition: 01 HOME / SELF CARE / HOMELESS Final Discharge Diagnosis (Prints w/discharge instructions): ESRD requiring hemodialysis. Heart failure with reduced ejection fraction. Acute on chronic hypoxic respiratory failure. Hypertension. Hyperlipidemia. Insulin-dependent type 2 diabetes mellitus. GERD. History of CVA with residual left-sided weakness. CAD complicated by [place] status post PCI Time spent for discharge: 30 MINUTES Core Measure Documentation - Palliative Care Palliative Care/ Comfort Measures: Not Applicable - Core Measures Any of the following diagnoses?: none, history only Exam - Physical Exam Narrative exam: GENERAL: Well-developed well-nourished. In no acute distress. CHEST/LUNGS: Permacath in right chest. CTAB on room air HEART/CARDIOVASCULAR: RRR. No murmur, rubs or gallops appreciated. ABDOMEN: +BS. NT/ND. SKIN: No rashes noted. NEURO: No focal motor deficit. EXTREMITIES: Old AV fistula left upper extremity without bruit or thrill. PSYCH: Cooperative. - Constitutional Vitals: Temp Pulse Resp BP Pulse Ox 98.8 F 73 14 147/78 98 11/26/21 09:00 11/26/21 09:00 11/26/21 09:00 11/26/21 09:00 11/26/21 09:59 Plan Care Plan Goals: Please make sure to find a primary care doctor in the area. You will start dialysis tomorrow. Below is the information for your new dialysis center. [facility] dialysis clinic [address],[facility]. [id number] Chair days/time: Wednesday,, Wednesday at 10am, 1st treatment outpatient is set for November patient will need to arrive at 9:30AM to dialysis clinic to sign paper work Assessment: The patient is a 65-year-old female past medical history of hypertension, congestive heart failure, insulin-dependent type 2 diabetes mellitus, hyperlipidemia, seizure disorder, 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 The patient describes having her last hemodialysis session last Wednesday due to her relocating from [place] to [place] to live with her daughter. The patient denied any fevers, chills, recent hospitalization, immobilization, history of DVT/PE, orthopnea, PND, or trauma. The patient does endorse having increased peripheral edema and tenderness in her lower extremities. She also endorses having nausea but denies upset stomach or diarrhea. In the ED the patient was found to be hypertensive at 203/102, tachypneic at 25, and tachycardic at 116. Patient quired 2 L nasal cannula. Her labs were remarkable for creatinine 9.1, alkaline phosphatase 231, and pro BNP 35,000. The patient is being admitted for further management of volume overload complicated by hypoxic respiratory failure in the setting of multiple missed hemodialysis sessions. The patient received hemodialysis, and she remained hemodynamically stable with labs within normal limits. Patient will discharged with home health PT. Follow up with: LOC GRADY MD [Primary Care Provider] - 7 Days Prescriptions: AtorvaSTATin [Lipitor] 80 mg PO QHS 90 Days #90 tablet Aspirin [Adult Aspirin] 81 mg PO DAILY 90 Days #90 tab amLODIPine 10 mg PO DAILY 90 Days #90 tab Docusate Sodium [Colace CAP] 100 mg PO BID PRN #60 capsule PRN Reason: Constipation carvediloL [Coreg] 25 mg PO BID 90 Days #180 tab Aspirin EC [Halfprin EC] 81 mg PO DAILY 90 Days #90 tablet ISOSORBIDE MONOnitrate [Imdur ER] 60 mg PO QDAY 90 Days #90 tab
[2021-11-26] MEDS: EPOETIN ALFA-EPBX 10,000 UNIT/1 ML VIAL IV PRN (14:15)
[2021-11-26] MEDS: SPIRONOLACTONE 50 MG TAB PO SCH (15:04)
[2021-11-26] MEDS: amLODIPine 10 MG TAB PO SCH (15:05)
[2021-11-26] MEDS: LISINOPRIL 20 MG TAB PO SCH ×2 (15:05→22:07)
[2021-11-26] MEDS ORDERED: INSULIN GLARGINE 100 UNITS/ML SUB-Q SCH (22:00)
[2021-11-27] MEDS: HEPARIN 5,000 UNIT/1 ML VIAL SUB-Q SCH (05:12)
[2021-11-27] MEDS ORDERED: DEXTROSE 50% IN WATER (25GM) 50 ML SYRINGE IV ONE (07:51)
[2021-11-27 15:07] VITALS: BP 153/77
== END 2021-11-27 15:42 | disposition home health service (06) | DRG 189 ==
LOC: ED 06:08 → 4A 08:36
PROVIDERS: ADMIT Student in an Organized Health Care Education/Training Program; ATTEND Student in an Organized Health Care Education/Training Program
PROC: 5A1D70Z Performance of Urinary Filtration, Intermittent, Less than 6 Hours Per Day (ICD-10-PCS; principal; 2021-11-24)
PROC: 5A1D70Z Performance of Urinary Filtration, Intermittent, Less than 6 Hours Per Day (ICD-10-PCS; 2021-11-26)
DX: J96.21 Acute and chronic respiratory failure with hypoxia (principal); N18.6 End stage renal disease; I13.2 Hypertensive heart and chronic kidney disease with heart failure and with stage 5 chronic kidney disease, or end stage renal disease; I50.22 Chronic systolic (congestive) heart failure; Z99.2 Dependence on renal dialysis; I25.10 Atherosclerotic heart disease of native coronary artery without angina pectoris; Z20.822 Contact with and (suspected) exposure to COVID-19; E78.5 Hyperlipidemia, unspecified; K21.9 Gastro-esophageal reflux disease without esophagitis; E11.22 Type 2 diabetes mellitus with diabetic chronic kidney disease; G40.909 Epilepsy, unspecified, not intractable, without status epilepticus; I25.2 Old myocardial infarction; Z90.49 Acquired absence of other specified parts of digestive tract; Z83.3 Family history of diabetes mellitus; Z82.49 Family history of ischemic heart disease and other diseases of the circulatory system; Z86.73 Personal history of transient ischemic attack (TIA), and cerebral infarction without residual deficits
CPT/HCPCS: 36415; 71045; 80048; 80053; 80074; 82947; 82962; 83735; 83880; 84100; 85025; 93005; 93306; G0378; J3490; C8929; J0885; J1644; J1815; J2270; U0003

== ENCOUNTER 2021-12-11 11:51 | Inpatient (IN) | payer MEDICARE, MEDICAID ==
[2021-12-11] MEDS ORDERED: KETOROLAC 30 MG/1 ML INJ IV ONE (12:36)
[2021-12-11] MEDS ORDERED: ONDANSETRON 4 MG/2 ML INJ IV ONE (12:36)
[2021-12-11] MEDS ORDERED: MORPHINE 4 MG/1 ML INJ IV ONE (12:36)
--- NOTE | 2021-12-11 12:40 | XRay Report ---
RIGHT HIP 2 VIEWS INDICATION: paim after fall. COMPARISON: None. IMPRESSION: Osteopenia is evident. No fracture or malalignment is detected. Minimal degenerative ch anges are noted at the right hip. The soft tissues are unremarkable. Bilateral iliac stents are noted . Signer Name: Charles Albert Jr, MD Signed: 12/11/2021 12:35 PM Workstation Name: [id number]
--- NOTE | 2021-12-11 14:51 | Emergency Department Report ---
ED Fall HPI - General Chief Complaint: Extremity Injury, Lower Stated Complaint: RT HIP PAIN Time Seen by Provider: 12/11/21 12:13 Source: patient, EMS Mode of arrival: Stretcher Limitations: No Limitations - History of Present Illness Initial Comments: 66-year-old female with a past medical history of diabetes - Related Data Home Medications Medication Instructions Recorded Confirmed Last Taken Albuterol Sulfate [Proair 2 puff IH Q6HR PRN 11/23/21 11/23/21 Unknown Digihaler] Calcium Acetate 2 tab PO TID 11/23/21 11/23/21 Unknown Fluticasone/Umeclidin/Vilanter 1 each IH DAILY 11/23/21 11/23/21 Unknown [Trelegy Ellipta 100-62.5-25] Furosemide [Lasix TAB] 40 mg PO QDAY 11/23/21 11/23/21 Unknown Insulin Aspart (Nf) [NovoLOG 55 unit SQ TID 11/23/21 11/23/21 Unknown Flexpen] Insulin Glargine [Lantus VIAL] 25 units SQ QHS 11/23/21 11/23/21 Unknown Omeprazole 20 mg PO DAILY 11/23/21 11/23/21 Unknown Spironolactone [Aldactone] 100 mg PO QDAY 11/23/21 11/23/21 Unknown lisinopriL [Lisinopril] 20 mg PO BID 11/23/21 11/23/21 Unknown Previous Rx's Medication Instructions Recorded Last Taken Type Docusate Sodium [Colace CAP] 100 mg PO BID PRN #60 capsule 11/24/21 Unknown Rx Aspirin EC [Halfprin EC] 81 mg PO DAILY 90 Days #90 tablet 11/26/21 Unknown Rx Aspirin [Adult Aspirin] 81 mg PO DAILY 90 Days #90 tab 11/26/21 Unknown Rx ISOSORBIDE MONOnitrate [Imdur ER] 60 mg PO QDAY 90 Days #90 tab 11/26/21 Unknown Rx Sevelamer Carbonate [Renvela] 800 mg PO TIDWM 90 Days #270 tab 11/26/21 Unknown Rx amLODIPine 10 mg PO DAILY 90 Days #90 tab 11/26/21 Unknown Rx carvediloL [Coreg] 25 mg PO BID 90 Days #180 tab 11/26/21 Unknown Rx Atorvastatin Calcium [Lipitor] 80 mg PO QHS 90 Days #90 tab 11/27/21 Unknown Rx Allergies Allergy/AdvReac Type Severity Reaction Status Date / Time No Known Allergies Allergy Verified 12/11/21 13:48 ED Review of Systems ROS: Stated complaint: RT HIP PAIN Other details as noted in HPI ED Past Medical Hx - Past Medical History Hx Hypertension: Yes Hx Heart Attack/AMI: Yes Hx GERD: Yes Hx Renal Disease: Yes - Surgical History Additional Surgical History: Right anterior chest hemodialysis port - Social History Smoking Status: Never Smoker - Medications Home Medications: Home Medications Medication Instructions Recorded Confirmed Last Taken Type Albuterol Sulfate [Proair 2 puff IH Q6HR PRN 11/23/21 11/23/21 Unknown History Digihaler] Calcium Acetate 2 tab PO TID 11/23/21 11/23/21 Unknown History Fluticasone/Umeclidin/Vilanter 1 each IH DAILY 11/23/21 11/23/21 Unknown History [Trelegy Ellipta 100-62.5-25] Furosemide [Lasix TAB] 40 mg PO QDAY 11/23/21 11/23/21 Unknown History Insulin Aspart (Nf) [NovoLOG 55 unit SQ TID 11/23/21 11/23/21 Unknown History Flexpen] Insulin Glargine [Lantus VIAL] 25 units SQ QHS 11/23/21 11/23/21 Unknown History Omeprazole 20 mg PO DAILY 11/23/21 11/23/21 Unknown History Spironolactone [Aldactone] 100 mg PO QDAY 11/23/21 11/23/21 Unknown History lisinopriL [Lisinopril] 20 mg PO BID 11/23/21 11/23/21 Unknown History Docusate Sodium [Colace CAP] 100 mg PO BID PRN #60 capsule 11/24/21 Unknown Rx Aspirin EC [Halfprin EC] 81 mg PO DAILY 90 Days #90 tablet 11/26/21 Unknown Rx Aspirin [Adult Aspirin] 81 mg PO DAILY 90 Days #90 tab 11/26/21 Unknown Rx ISOSORBIDE MONOnitrate [Imdur ER] 60 mg PO QDAY 90 Days #90 tab 11/26/21 Unknown Rx Sevelamer Carbonate [Renvela] 800 mg PO TIDWM 90 Days #270 tab 11/26/21 11/23/21 Unknown Rx amLODIPine 10 mg PO DAILY 90 Days #90 tab 11/26/21 Unknown Rx carvediloL [Coreg] 25 mg PO BID 90 Days #180 tab 11/26/21 Unknown Rx Atorvastatin Calcium [Lipitor] 80 mg PO QHS 90 Days #90 tab 11/27/21 Unknown Rx ED Physical Exam - General Limitations: Physical Limitation ED Course Vital Signs 12/11/21 12/11/21 12/11/21 11:55 13:37 13:46 Temperature 98.0 F 98.1 F Pulse Rate 86 82 85 Respiratory 16 18 18 Rate Blood Pressure 160/78 157/81 152/66 [Right] O2 Sat by Pulse 98 92 94 Oximetry Critical care attestation.: If time is entered above; I have spent that time in minutes in the direct care of this critically ill patient, excluding procedure time. ED Disposition Condition: Stable Referrals: PRIMARY CARE [Primary Care Provider] - 3-5 Days
--- NOTE | 2021-12-11 14:56 | Emergency Department Report ---
Chief Complaint: Extremity Injury, Lower Stated Complaint: RT HIP PAIN Time Seen by Provider: 12/11/21 12:13 - HPI History of Present Illness: 66-year-old female status post fall in her kitchen complaining of bilateral hip pain right greater than left. Right hip appears shortened and externally rotated. Patient having severe pain with difficulty providing history of present illness. As per nursing note reviewed is noted that patient missed her dialysis on Wednesday. On exam patient has right hip pain and wary of movement secondary to pain. Right x-ray reviewed without acute findings Due to persistent and severe pain CT lumbar spine and pelvis/hip ordered. IV morphine and Zofran provided for pain As per nursing note reviewed at this time patient missed her Wednesday dialysis. This was not included on her triage. I have ordered CBC and BMP. Patient to be fully assessed and evaluated by oncoming provider - Exam Vital Signs: Vital Signs 12/11/21 12/11/21 12/11/21 11:55 13:37 13:46 Temperature 98.0 F 98.1 F Pulse Rate 86 82 85 Respiratory 16 18 18 Rate Blood Pressure 160/78 157/81 152/66 [Right] O2 Sat by Pulse 98 92 94 Oximetry MSE screening note: Focused history and physical exam performed. Due to findings the following was ordered: ED Disposition for MSE Condition: Stable Referrals: PRIMARY CARE, [Primary Care Provider] - 3-5 Days
--- NOTE | 2021-12-11 15:04 | Cat Scan Report ---
CT PELVIS WITHOUT CONTRAST HISTORY: Right hip pain after fall TECHNIQUE: Helical CT was sagittal and coronal reformatted images. All CT scans at this location are performed using CT dose reduction for ALARA by means of automated exposure control. COMPARISON: Right hip films performed the same day FINDINGS: Osteopenia is again noted. No evidence for pelvic fracture, bone lesion or diastasis. Degen erative changes are noted in the lower lumbar spine, SI joints and bilateral hips. No osteonecrosis. The uterus, adnexa, bladder and visualized bowel loops in the pelvis are unremarkable. There is small pelvic ascites. No abscess or free air. Severe atherosclerotic disease is present in the arterial st ructures. Bilateral iliac stents are in place. The soft tissues are edematous but otherwise unremarka ble. IMPRESSION: No acute pelvic injury is appreciated. No right hip fracture. Degenerative changes as described. Small pelvic ascites. Signer Name: Charles Albert Jr, MD Signed: 12/11/2021 2:59 PM Workstation Name: [id number]
--- NOTE | 2021-12-11 15:08 | Cat Scan Report ---
CT LUMBAR SPINE: 12/11/2021 INDICATION / CLINICAL INFORMATION: pain after fall. COMPARISON: None available. FINDINGS: CT images of the lumbar spine were obtained. Images are evaluated in the axial, coronal, and sagittal planes. There is no evidence of acute abnormality. Left convex scoliosis is centered at the L3-4 level. Degenerative disc and facet changes are present throughout the lumbar spine. LEVEL BY LEVEL ANALYSIS: L5-S1: Mild diffuse disc bulging. L4-5: Prominent diffuse disc bulging and mild facet degenerative changes. Degenerative endplate irreg ularity is present. Severe central canal stenosis is present. L3-4: Moderate diffuse disc bulging and facet degenerative changes. Moderately severe central canal s tenosis. L2-3: Mild diffuse disc bulging. L1-2: Unremarkable. PARASPINAL STRUCTURES: Unremarkable. Incidental note is made of a lateral iliac artery stents. IMPRESSION: No evidence of acute traumatic injury. Extensive degenerative changes. All CT scans at this location are performed using dose reduction to ALARA by means of automated expos ure control. Signer Name: Jorgito Beltran MD Signed: 12/11/2021 3:04 PM Workstation Name: [id number]
--- NOTE | 2021-12-11 16:11 | XRay Report ---
CHEST 1 VIEW 12/11/2021 3:42 PM INDICATION / CLINICAL INFORMATION: dizziness. COMPARISON: 11/23/21 FINDINGS: SUPPORT DEVICES: Right PermCath is unchanged. HEART / MEDIASTINUM: Heart is enlarged but stable. LUNGS / PLEURA: Slight improvement in borderline interstitial pulmonary edema. No pneumothorax. ADDITIONAL FINDINGS: Surgical clips in the neck and left subclavian vascular stent are unchanged. IMPRESSION: 1. Slight improvement in pulmonary edema. Signer Name: Kourtney Trinidad MD Signed: 12/11/2021 4:00 PM Workstation Name: [id number]
[2021-12-11 16:24] LABS: Hematocrit 29.5 % (30.3-42.9); Hemoglobin 9.4 gm/dl (10.1-14.3); Mean Corpuscular HGB Conc 32 % (30-34); Mean Corpuscular Volume 83 fl (79-97); Platelet Count 119 K/mm3 (140-440); Red Blood Count 3.57 M/mm3 (3.65-5.03); Red Cell Distribution Width 17.8 % (13.2-15.2)
[2021-12-11 16:36] LABS: Albumin 3.6 g/dL (3.9-5); Calcium 7.7 mg/dL (8.4-10.2)
--- NOTE | 2021-12-11 16:49 | Cat Scan Report ---
CT cervical spine wo con, CT head/brain wo con INDICATION: blunt head injury. TECHNIQUE: CT head and cervical spine without contrast. All CT scans at this location are performed u sing CT dose reduction for ALARA by means of automated exposure control. COMPARISON: None. FINDINGS: HEAD: Intracranial: Encephalomalacia seen within the right MCA territory from remote infarction. There is a small quantity of increased attenuation seen within the central debora. The superior cerebellar pedunc le is atrophied. No surrounding vasogenic edema. Richey-white matter differentiation is maintained. No intracranial hemorrhage. No extra axial collection.. No hydrocephalus. No herniation. Sinuses: Paranasal sinuses and mastoid air cells are essentially clear. Orbits: Globes are intact Calvarium: No acute fracture. CERVICAL: Alignment: Reversal of lordosis. No traumatic listhesis identified Vertebrae: No fracture. Vertebral body heights are preserved. C1 and C2 are congruent. Atlantooccipi nathalia joint is maintained. Spondylolysis: Multilevel spondylosis without high-grade spinal canal stenosis. Soft tissues: No prevertebral soft tissue thickening. Additional findings: Multinodular enlarged thyroid gland with nodules present measuring over 1.5 cm. Postoperative clips are seen along the base the left brachiocephalic vein stent. Right internal jugul ar vein is dilated and there are numerous dilated collateral vessels seen within the neck.. RIJ CVC i s seen. There is a prominent left supraclavicular lymph node which is prominent measuring 2 cm long a xis and 1 cm in short axis, image 66 of series 5.. There are other multiple mildly prominent lymph no wilman seen. IMPRESSION: 1. Small quantity of increased attenuation seen within the central debora which is likely related to c alcification. Hemorrhage is not favored in this patient as there is no other evidence of trauma and h ypertensive hemorrhage would be expected to be more mass like and have mass effect and surrounding va sogenic edema. 2.No cervical spine fracture. 3. There are venous collateral seen within the base of neck and patient has a left brachiocephalic st ent, correlate clinically. 4. Nonspecific prominent left supraclavicular lymph node measure 1 cm in short axis. Correlate with h istory. Compare to prior exams. If not available and if indicted can follow up to ensure stabiliy. 5. Multinodular thyroid gland which meets criteria for dedicated thyroid ultrasound if not already pe rformed. Signer Name: Deejay Dominique MD Signed: 12/11/2021 4:44 PM Workstation Name: [id number]
[2021-12-11 16:53] LABS: Chol/HDL Ratio 1.75 %
--- NOTE | 2021-12-11 17:20 | Emergency Department Report ---
ED General Adult HPI - General Chief complaint: Extremity Injury, Lower Stated complaint: RT HIP PAIN Time Seen by Provider: 12/11/21 12:13 Source: patient, EMS Mode of arrival: Stretcher Limitations: Physical Limitation - History of Present Illness Initial comments: patient presents s/p fall, that occurred 2 days ago. States she did not trip or slip. States she felt dizzy and then found herself on the ground. Denies any CP, SOB, palpitations, diaphoresis prior to or after the fall. Has been having MCKEON,R hip, thigh, knee and leg pain since the fall. Patient also has ESRD and missed her last dialysis session. Severity scale (0 -10): 10 - Related Data Home Medications Medication Instructions Recorded Confirmed Last Taken Albuterol Sulfate [Proair 2 puff IH Q6HR PRN 11/23/21 11/23/21 Unknown Digihaler] Calcium Acetate 2 tab PO TID 11/23/21 11/23/21 Unknown Fluticasone/Umeclidin/Vilanter 1 each IH DAILY 11/23/21 11/23/21 Unknown [Trelegy Ellipta 100-62.5-25] Furosemide [Lasix TAB] 40 mg PO QDAY 11/23/21 11/23/21 Unknown Insulin Aspart (Nf) [NovoLOG 55 unit SQ TID 11/23/21 11/23/21 Unknown Flexpen] Insulin Glargine [Lantus VIAL] 25 units SQ QHS 11/23/21 11/23/21 Unknown Omeprazole 20 mg PO DAILY 11/23/21 11/23/21 Unknown Spironolactone [Aldactone] 100 mg PO QDAY 11/23/21 11/23/21 Unknown lisinopriL [Lisinopril] 20 mg PO BID 11/23/21 11/23/21 Unknown Previous Rx's Medication Instructions Recorded Last Taken Type Docusate Sodium [Colace CAP] 100 mg PO BID PRN #60 capsule 11/24/21 Unknown Rx Aspirin EC [Halfprin EC] 81 mg PO DAILY 90 Days #90 tablet 11/26/21 Unknown Rx Aspirin [Adult Aspirin] 81 mg PO DAILY 90 Days #90 tab 11/26/21 Unknown Rx ISOSORBIDE MONOnitrate [Imdur ER] 60 mg PO QDAY 90 Days #90 tab 11/26/21 Unknown Rx Sevelamer Carbonate [Renvela] 800 mg PO TIDWM 90 Days #270 tab 11/26/21 Unknown Rx amLODIPine 10 mg PO DAILY 90 Days #90 tab 11/26/21 Unknown Rx carvediloL [Coreg] 25 mg PO BID 90 Days #180 tab 11/26/21 Unknown Rx Atorvastatin Calcium [Lipitor] 80 mg PO QHS 90 Days #90 tab 11/27/21 Unknown Rx Allergies Allergy/AdvReac Type Severity Reaction Status Date / Time No Known Allergies Allergy Verified 12/11/21 22:19 ED Review of Systems ROS: Stated complaint: RT HIP PAIN Other details as noted in HPI Comment: All other systems reviewed and negative Constitutional: denies: chills, fever ED Past Medical Hx - Past Medical History Hx Hypertension: Yes Hx Heart Attack/AMI: Yes Hx GERD: Yes Hx Renal Disease: Yes - Surgical History Additional Surgical History: Right anterior chest hemodialysis port - Social History Smoking Status: Never Smoker - Medications Home Medications: Home Medications Medication Instructions Recorded Confirmed Last Taken Type Albuterol Sulfate [Proair 2 puff IH Q6HR PRN 11/23/21 11/23/21 Unknown History Digihaler] Calcium Acetate 2 tab PO TID 11/23/21 11/23/21 Unknown History Fluticasone/Umeclidin/Vilanter 1 each IH DAILY 11/23/21 11/23/21 Unknown History [Trelegy Ellipta 100-62.5-25] Furosemide [Lasix TAB] 40 mg PO QDAY 11/23/21 11/23/21 Unknown History Insulin Aspart (Nf) [NovoLOG 55 unit SQ TID 11/23/21 11/23/21 Unknown History Flexpen] Insulin Glargine [Lantus VIAL] 25 units SQ QHS 11/23/21 11/23/21 Unknown History Omeprazole 20 mg PO DAILY 11/23/21 11/23/21 Unknown History Spironolactone [Aldactone] 100 mg PO QDAY 11/23/21 11/23/21 Unknown History lisinopriL [Lisinopril] 20 mg PO BID 11/23/21 11/23/21 Unknown History Docusate Sodium [Colace CAP] 100 mg PO BID PRN #60 capsule 11/24/21 Unknown Rx Aspirin EC [Halfprin EC] 81 mg PO DAILY 90 Days #90 tablet 11/26/21 Unknown Rx Aspirin [Adult Aspirin] 81 mg PO DAILY 90 Days #90 tab 11/26/21 Unknown Rx ISOSORBIDE MONOnitrate [Imdur ER] 60 mg PO QDAY 90 Days #90 tab 11/26/21 Unknown Rx Sevelamer Carbonate [Renvela] 800 mg PO TIDWM 90 Days #270 tab 11/26/21 11/23/21 Unknown Rx amLODIPine 10 mg PO DAILY 90 Days #90 tab 11/26/21 Unknown Rx carvediloL [Coreg] 25 mg PO BID 90 Days #180 tab 11/26/21 Unknown Rx Atorvastatin Calcium [Lipitor] 80 mg PO QHS 90 Days #90 tab 11/27/21 Unknown Rx ED Physical Exam - General Limitations: No Limitations General appearance: alert, in no apparent distress - Head Head exam: Present: atraumatic, normocephalic - Eye Eye exam: Present: PERRL, EOMI - ENT ENT exam: Present: mucous membranes moist, other (airway patent) - Neck Neck exam: Present: other (painless full ROM; non tender; unable to clear by NEXUS criteria 2/2 possible distracting injury) - Respiratory Respiratory exam: Present: other (good air entry, nml I:E, bibasilar crackles; no use of JIMENA) - Cardiovascular Cardiovascular Exam: Present: regular rate. Absent: rubs, gallop - GI/Abdominal GI/Abdominal exam: Present: soft, normal bowel sounds. Absent: tenderness, guarding - Extremities Exam Extremities exam: Present: other (1+ pretibial edema bilateraslly; R=L; tender to palpation in R hip and along R thigh and parker and in anterior R knee but no defomrity; otherwise, full ROM without deformity, ecchymosis, tenderness in all other extremities; pelvis stable) - Back Exam Back exam: Present: other (no step offs). Absent: vertebral tenderness - Neurological Exam Neurological exam: Present: alert, oriented X3, CN II-XII intact. Absent: motor sensory deficit - Skin Skin exam: Present: warm, normal color ED Course Vital Signs 12/11/21 12/11/21 12/11/21 11:55 13:37 13:46 Temperature 98.0 F 98.1 F Pulse Rate 86 82 85 Respiratory 16 18 18 Rate Blood Pressure Blood Pressure 160/78 157/81 152/66 [Right] O2 Sat by Pulse 98 92 94 Oximetry 12/11/21 12/11/21 12/11/21 18:13 20:18 20:31 Temperature Pulse Rate 87 Respiratory 17 Rate Blood Pressure 107/52 Blood Pressure 119/65 [Right] O2 Sat by Pulse 92 84 81 L Oximetry 12/11/21 12/11/21 12/11/21 20:45 21:01 21:15 Temperature Pulse Rate Respiratory Rate Blood Pressure 107/52 109/61 109/61 Blood Pressure [Right] O2 Sat by Pulse 85 83 L 84 Oximetry 12/11/21 12/11/21 12/11/21 21:31 21:45 22:01 Temperature Pulse Rate Respiratory Rate Blood Pressure 110/59 110/59 108/60 Blood Pressure [Right] O2 Sat by Pulse 86 91 88 Oximetry 12/11/21 12/11/21 12/11/21 22:15 22:31 22:45 Temperature Pulse Rate Respiratory Rate Blood Pressure 108/60 103/58 103/58 Blood Pressure [Right] O2 Sat by Pulse 86 95 94 Oximetry 12/11/21 12/11/21 12/11/21 23:01 23:15 23:31 Temperature Pulse Rate Respiratory Rate Blood Pressure 103/58 103/58 113/64 Blood Pressure [Right] O2 Sat by Pulse 96 96 83 L Oximetry 12/11/21 12/11/21 12/12/21 23:43 23:45 00:01 Temperature Pulse Rate Respiratory Rate Blood Pressure 113/64 113/64 122/68 Blood Pressure [Right] O2 Sat by Pulse 97 95 95 Oximetry 12/12/21 12/12/21 12/12/21 00:15 00:31 00:45 Temperature Pulse Rate Respiratory Rate Blood Pressure 122/68 127/73 127/73 Blood Pressure [Right] O2 Sat by Pulse 93 97 94 Oximetry 12/12/21 01:01 Temperature Pulse Rate Respiratory Rate Blood Pressure 106/52 Blood Pressure [Right] O2 Sat by Pulse 86 Oximetry ED Medical Decision Making - Lab Data Result diagrams: 12/13/21 07:30 12/13/21 07:30 Laboratory Tests 12/11/21 12/11/21 14:52 15:40 WBC 10.4 RBC 3.57 L Hgb 9.4 L Hct 29.5 L MCV 83 MCH 26 L MCHC 32 RDW 17.8 H Plt Count 119 L Sodium 139 Potassium 4.4 Chloride 98.2 Carbon Dioxide 18 L Anion Gap 27 BUN 76 H Creatinine 9.2 H Estimated GFR 5 BUN/Creatinine Ratio 8 Glucose 83 Calcium 7.7 L Total Bilirubin 0.60 AST 22 ALT 13 Alkaline Phosphatase 237 H Troponin T 0.168 H* Total Protein 7.4 Albumin 3.6 L Albumin/Globulin Ratio 0.9 Triglycerides 92 Cholesterol 72 LDL Cholesterol Direct 16 L HDL Cholesterol 41 Cholesterol/HDL Ratio 1.75 EKG: HR 78, no clear cut p waves, regular RR (likely junctional rhythm), no significant ST deflections from isoelectric line in contiguous leads CXR: pulmonary edema CT head: no acute intracranial process CT C-spine: no fracture or traumatic subluxation CT pelvis: no acute fracture or dislocation XR L spine: no fracture or traumatic subluxation XR R tib fib: no acute fracture or dislocation XR R femur: no acute fracture or dislocation XR R hip with pelvis: no acute fracture or dislocation - Medical Decision Making Dr. Shaffer (cardiology) consulted. Recommends trending troponin Dr. Cody Stanford (nephrology) consulted. Will see patient in consultation and dialyze her Dr. Belle (hospitalist) called at 18:00. He is requesting that we call the next hospitalist at 21:00, as he is backed up at this time. diff dz: likely non-mechanical fall, probably due to uremia, and pulm edema from ESRD with overload. ICH ruled out. Ischemic CVA unlikely. Need to definitively r/o ACS. Critical care attestation.: If time is entered above; I have spent that time in minutes in the direct care of this critically ill patient, excluding procedure time. ED Disposition Clinical Impression: ESRD (end stage renal disease) on dialysis, Fluid overload, Pre-syncope, Elevated troponin, Contusion of right lower extremity Disposition: ADMITTED INPATIENT Is pt being admited?: Yes Does the pt Need Aspirin: Yes Condition: Stable Time of Disposition: 18:00 (Patient admitted to Dr. Fowler @ 21:30. Sign oput was given by me to the admitting physician. )
--- NOTE | 2021-12-11 18:20 | XRay Report ---
Right femur-5 views INDICATION: pain. Fall with right leg pain COMPARISON: None available. IMPRESSION: No acute osseous abnormality. Normal alignment. 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 No acute soft tissue abnormality identified. Signer Name: Justin Sims MD Signed: 12/11/2021 6:16 PM Workstation Name: [id number]
--- NOTE | 2021-12-11 18:24 | XRay Report ---
Right leg-4 views INDICATION: pain. COMPARISON: None available. IMPRESSION: A true frontal view was not provided. The fibula is poorly seen on the frontal images. N o gross fracture identified. Grossly normal alignment. No significant DJD. Soft tissues are unremar kable. Signer Name: Justin Sims MD Signed: 12/11/2021 6:20 PM Workstation Name: [id number]
[2021-12-11] MEDS ORDERED: ASPIRIN 81 MG TAB CHEW PO ONE (21:44)
[2021-12-11] MEDS ORDERED: MORPHINE 4 MG/1 ML INJ IV PRN (22:11)
[2021-12-11] MEDS ORDERED: NITROGLYCERIN 0.4 MG TAB SUBL SL PRN (22:11)
[2021-12-11] MEDS ORDERED: ALBUTEROL 2.5 MG/3 ML NEBU IH PRN (22:14)
--- NOTE | 2021-12-11 22:21 | History and Physical Report ---
History of Present Illness Date of examination: 12/11/21 Date of admission: 12/11/21 Chief complaint: Fall Right hip pain History of present illness: 66 years old female with history of hypertension, history of heart attack end- stage renal disease on hemodialysis and GERD was brought to the hospital because s/p fall, that occurred 2 days ago. States she did not trip or slip. States she felt dizzy and then found herself on the ground. Denies any CP, SOB, palpitat ions, diaphoresis prior to or after the fall. Has been having MCKEON,R hip, thigh, knee and leg pain since the fall. Patient also has ESRD and missed her last dialysis session. In the ER patient is found to have troponin of 0.168, BUN of 76 creatinine 9.2, potassium 4.4,CXR: pulmonary edema CT head: no acute intracranial process, CT C-spine: no fracture or traumatic subluxation CT pelvis: no acute fracture or dislocation, XR L spine: no fracture or traumatic subluxation XR R tib fib: no acute fracture or dislocatio,XR R femur: no acute fracture or dislocation, XR R hip with pelvis: no acute fracture or dislocation 's were going to admit the patient we will put the patient on chest pain pathway we also consult nephrology as well as cardiology for evaluation. Patient is on fall precaution Past History Past Medical History: acute CA, ESRD, GERD, hypertension, renal failure Past Surgical History: Other (Right anterior chest hemodialysis port) Social history: no significant social history Family history: no significant family history, hypertension Medications and Allergies Allergies Allergy/AdvReac Type Severity Reaction Status Date / Time No Known Allergies Allergy Verified 12/11/21 13:48 Home Medications Medication Instructions Recorded Confirmed Last Taken Type Albuterol Sulfate [Proair 2 puff IH Q6HR PRN 11/23/21 11/23/21 Unknown History Digihaler] Calcium Acetate 2 tab PO TID 11/23/21 11/23/21 Unknown History Fluticasone/Umeclidin/Vilanter 1 each IH DAILY 11/23/21 11/23/21 Unknown History [Trelegy Ellipta 100-62.5-25] Furosemide [Lasix TAB] 40 mg PO QDAY 11/23/21 11/23/21 Unknown History Insulin Aspart (Nf) [NovoLOG 55 unit SQ TID 11/23/21 11/23/21 Unknown History Flexpen] Insulin Glargine [Lantus VIAL] 25 units SQ QHS 11/23/21 11/23/21 Unknown History Omeprazole 20 mg PO DAILY 11/23/21 11/23/21 Unknown History Spironolactone [Aldactone] 100 mg PO QDAY 11/23/21 11/23/21 Unknown History lisinopriL [Lisinopril] 20 mg PO BID 11/23/21 11/23/21 Unknown History Docusate Sodium [Colace CAP] 100 mg PO BID PRN #60 capsule 11/24/21 Unknown Rx Aspirin EC [Halfprin EC] 81 mg PO DAILY 90 Days #90 tablet 11/26/21 Unknown Rx Aspirin [Adult Aspirin] 81 mg PO DAILY 90 Days #90 tab 11/26/21 Unknown Rx ISOSORBIDE MONOnitrate [Imdur ER] 60 mg PO QDAY 90 Days #90 tab 11/26/21 Unknown Rx Sevelamer Carbonate [Renvela] 800 mg PO TIDWM 90 Days #270 tab 11/26/21 11/23/21 Unknown Rx amLODIPine 10 mg PO DAILY 90 Days #90 tab 11/26/21 Unknown Rx carvediloL [Coreg] 25 mg PO BID 90 Days #180 tab 11/26/21 Unknown Rx Atorvastatin Calcium [Lipitor] 80 mg PO QHS 90 Days #90 tab 11/27/21 Unknown Rx Review of Systems All systems: negative Constitutional: weakness, other (Fall, right hip pain) Exam - Constitutional Vitals: Temp Pulse Resp BP Pulse Ox 98.1 F 87 17 119/65 92 12/11/21 13:37 12/11/21 18:13 12/11/21 18:13 12/11/21 18:13 12/11/21 18:13 General appearance: Present: no acute distress, well-nourished - EENT Eyes: Present: PERRL ENT: hearing intact, clear oral mucosa - Neck Neck: Present: supple, normal ROM - Respiratory Respiratory effort: normal Respiratory: bilateral: diminished - Cardiovascular Heart Sounds: Present: S1 & S2. Absent: rub, click - Extremities Extremities: pulses symmetrical, No edema Peripheral Pulses: within normal limits - Abdominal General gastrointestinal: Present: soft, non-tender, non-distended, normal bowel sounds Female genitourinary: Present: normal - Integumentary Integumentary: Present: clear, warm, dry - Musculoskeletal Musculoskeletal: gait normal, strength equal bilaterally - Psychiatric Psychiatric: appropriate mood/affect, intact judgment & insight - Neurologic Neurologic: CNII-XII intact, moves all extremities HEART Score - HEART Score Troponin: Troponin T 0.168 ng/mL (0.00-0.029) H* 12/11/21 15:40 Results - Labs CBC & Chem 7: 12/11/21 14:52 12/11/21 15:40 Labs: Laboratory Last Values WBC 10.4 K/mm3 (4.5-11.0) 12/11/21 14:52 RBC 3.57 M/mm3 (3.65-5.03) L 12/11/21 14:52 Hgb 9.4 gm/dl (10.1-14.3) L 12/11/21 14:52 Hct 29.5 % (30.3-42.9) L 12/11/21 14:52 MCV 83 fl (79-97) 12/11/21 14:52 MCH 26 pg (28-32) L 12/11/21 14:52 MCHC 32 % (30-34) 12/11/21 14:52 RDW 17.8 % (13.2-15.2) H 12/11/21 14:52 Plt Count 119 K/mm3 (140-440) L 12/11/21 14:52 Sodium 139 mmol/L (137-145) 12/11/21 15:40 Potassium 4.4 mmol/L (3.6-5.0) 12/11/21 15:40 Chloride 98.2 mmol/L (98-107) 12/11/21 15:40 Carbon Dioxide 18 mmol/L (22-30) L 12/11/21 15:40 Anion Gap 27 mmol/L 12/11/21 15:40 BUN 76 mg/dL (7-17) H 12/11/21 15:40 Creatinine 9.2 mg/dL (0.6-1.2) H 12/11/21 15:40 Estimated GFR 5 ml/min 12/11/21 15:40 BUN/Creatinine Ratio 8 % 12/11/21 15:40 Glucose 83 mg/dL (65-100) 12/11/21 15:40 Calcium 7.7 mg/dL (8.4-10.2) L 12/11/21 15:40 Total Bilirubin 0.60 mg/dL (0.1-1.2) 12/11/21 15:40 AST 22 units/L (5-40) 12/11/21 15:40 ALT 13 units/L (7-56) 12/11/21 15:40 Alkaline Phosphatase 237 units/L (35-129) H 12/11/21 15:40 Troponin T 0.168 ng/mL (0.00-0.029) H* 12/11/21 15:40 Total Protein 7.4 g/dL (6.3-8.2) 12/11/21 15:40 Albumin 3.6 g/dL (3.9-5) L 12/11/21 15:40 Albumin/Globulin Ratio 0.9 % 12/11/21 15:40 Triglycerides 92 mg/dL (2-149) 12/11/21 15:40 Cholesterol 72 mg/dL (50-199) 12/11/21 15:40 LDL Cholesterol Direct 16 mg/dL (50-130) L 12/11/21 15:40 HDL Cholesterol 41 mg/dL (40-59) 12/11/21 15:40 Cholesterol/HDL Ratio 1.75 % 12/11/21 15:40 - Imaging and Cardiology Chest x-ray: report reviewed CT Scan - head: report reviewed Assessment and Plan VTE prophylaxis?: Mechanical Plan of care discussed with patient/family: Yes - Patient Problems (1) Elevated troponin Current Visit: Yes Status: Acute Plan to address problem: Admit the patient to the medical telemetry. Aspirin 81 mg p.o. daily. Lipitor 80 mg p.o. daily. Nitroglycerin as needed. We do the serial cardiac enzyme. Echocardiogram. Cardiology evaluation (2) Contusion of right lower extremity Current Visit: Yes Status: Acute Plan to address problem: Patient is on fall precaution. Will consult physical therapy for evaluation. Tylenol 650 mg p.o. every 6 hours as needed (3) Pre-syncope Current Visit: Yes Status: Acute Plan to address problem: Aspirin 81 mg p.o. daily. Lipitor 80 mg p.o. daily. Nitroglycerin as needed. We do the serial cardiac enzyme. Echocardiogram. Cardiology evaluation (4) ESRD (end stage renal disease) on dialysis Current Visit: Yes Status: Chronic Plan to address problem: We consulted nephrology for hemodialysis. Avoid nephrotoxic drug. Renally dose medication. Recheck BMP in the morning (5) Hypertension Current Visit: No Status: Chronic Plan to address problem: Lisinopril 20 mg p.o. twice daily Imdur 60 mg p.o. daily. We continue the home medication (6) Type 2 diabetes mellitus with diabetic chronic kidney disease Current Visit: No Status: Chronic Plan to address problem: Humalog sliding scale moderate dose. Lantus 25 units subcu nightly. Diabetic education (7) DVT prophylaxis Current Visit: Yes Status: Acute Plan to address problem: SCD for DVT prophylaxis. Pepcid 20 mg p.o. twice daily for GI prophylaxis. Patient is a full code
[2021-12-12] MEDS: traMADol 50 MG TAB PO PRN (01:52)
[2021-12-12 05:10] LABS: Basophils % (Auto) 0.6 % (0.0-1.8); Hematocrit 30.6 % (30.3-42.9); Hemoglobin 10.1 gm/dl (10.1-14.3); Lymphocytes # (Auto) 0.3 K/mm3 (1.2-5.4); Mean Corpuscular HGB Conc 33 % (30-34); Mean Corpuscular Volume 82 fl (79-97); Monocytes # (Auto) 0.4 K/mm3 (0.0-0.8); Monocytes % (Auto) 5.4 % (0.0-7.3); Platelet Count 110 K/mm3 (140-440); Red Blood Count 3.73 M/mm3 (3.65-5.03); Red Cell Distribution Width 17.9 % (13.2-15.2)
[2021-12-12 05:29] LABS: Calcium 7.8 mg/dL (8.4-10.2)
[2021-12-12] MEDS: INSULIN LISPRO 100 UNIT/ML SUB-Q SCH ×4 (07:45→21:55)
[2021-12-12] MEDS: CALCIUM ACETATE 667 MG CAP PO SCH ×3 (08:25→21:55)
[2021-12-12] MEDS: SEVELAMER CARBONATE 800 MG TAB PO SCH ×3 (09:25→17:39)
[2021-12-12] MEDS: ASPIRIN 81 MG TAB CHEW PO SCH (09:27)
[2021-12-12] MEDS: FAMOTIDINE 20 MG TAB PO SCH ×2 (09:27→21:55)
[2021-12-12] MEDS ORDERED: carvediloL 25 MG TAB PO SCH (10:00)
[2021-12-12] MEDS ORDERED: LISINOPRIL 20 MG TAB PO SCH (10:00)
[2021-12-12] MEDS ORDERED: NON-FORMULARY EACH (Fluticasone/Umeclidin/Vilanter [Trelegy Ellipta 100-62.5-25] 1 EACH Bl IH SCH (10:00)
[2021-12-12] MEDS ORDERED: SPIRONOLACTONE 50 MG TAB PO SCH (10:00)
[2021-12-12] MEDS ORDERED: FUROSEMIDE 40 MG TAB PO SCH (10:00)
[2021-12-12] MEDS ORDERED: amLODIPine 10 MG TAB PO SCH (10:00)
[2021-12-12] MEDS ORDERED: SODIUM CHLORIDE 0.9% 100 ML IV PRN (12:00)
--- NOTE | 2021-12-12 12:04 | Consultation ---
History of Present Illness - Reason for Consult Consult date: 12/12/21 end stage renal disease Requesting physician: MELODY OTTO - History of Present Illness patient presents s/p fall, that occurred 2 days ago. States she did not trip or slip. States she felt dizzy and then found herself on the ground. Denies any CP, SOB, palpitations, diaphoresis prior to or after the fall. Has been having MCKEON,R hip, thigh, knee and leg pain since the fall. Patient also has ESRD and missed her last dialysis session. Severity scale (0 -10): 10 ROS: Stated complaint: RT HIP PAIN Other details as noted in HPI Comment: All other systems reviewed and negative Constitutional: denies: chills, fever - Past Medical History Hx Hypertension: Yes Hx Heart Attack/AMI: Yes Hx GERD: Yes Hx Renal Disease: Yes - Surgical History Additional Surgical History: Right anterior chest hemodialysis port - Social History Smoking Status: Never Smoker Past History Past Medical History: acute VA, ESRD, GERD, hypertension, renal failure Past Surgical History: Other (Right anterior chest hemodialysis port) Social history: no significant social history Family history: no significant family history, hypertension Medications and Allergies Allergies Allergy/AdvReac Type Severity Reaction Status Date / Time No Known Allergies Allergy Verified 12/11/21 22:19 Home Medications Medication Instructions Recorded Confirmed Last Taken Type Albuterol Sulfate [Proair 2 puff IH Q6HR PRN 11/23/21 11/23/21 Unknown History Digihaler] Calcium Acetate 2 tab PO TID 11/23/21 11/23/21 Unknown History Fluticasone/Umeclidin/Vilanter 1 each IH DAILY 11/23/21 11/23/21 Unknown History [Trelegy Ellipta 100-62.5-25] Furosemide [Lasix TAB] 40 mg PO QDAY 11/23/21 11/23/21 Unknown History Insulin Aspart (Nf) [NovoLOG 55 unit SQ TID 11/23/21 11/23/21 Unknown History Flexpen] Insulin Glargine [Lantus VIAL] 25 units SQ QHS 11/23/21 11/23/21 Unknown History Omeprazole 20 mg PO DAILY 11/23/21 11/23/21 Unknown History Spironolactone [Aldactone] 100 mg PO QDAY 11/23/21 11/23/21 Unknown History lisinopriL [Lisinopril] 20 mg PO BID 11/23/21 11/23/21 Unknown History Docusate Sodium [Colace CAP] 100 mg PO BID PRN #60 capsule 11/24/21 Unknown Rx Aspirin EC [Halfprin EC] 81 mg PO DAILY 90 Days #90 tablet 11/26/21 Unknown Rx Aspirin [Adult Aspirin] 81 mg PO DAILY 90 Days #90 tab 11/26/21 Unknown Rx ISOSORBIDE MONOnitrate [Imdur ER] 60 mg PO QDAY 90 Days #90 tab 11/26/21 Unknown Rx Sevelamer Carbonate [Renvela] 800 mg PO TIDWM 90 Days #270 tab 11/26/21 11/23/21 Unknown Rx amLODIPine 10 mg PO DAILY 90 Days #90 tab 11/26/21 Unknown Rx carvediloL [Coreg] 25 mg PO BID 90 Days #180 tab 11/26/21 Unknown Rx Atorvastatin Calcium [Lipitor] 80 mg PO QHS 90 Days #90 tab 11/27/21 Unknown Rx Active Meds: Active Medications Acetaminophen (Acetaminophen 325 Mg Tab) 650 mg PO Q6H PRN PRN Reason: Pain, Mild (1-3) Albuterol (Albuterol 2.5 Mg/3 Ml Nebu) 2.5 mg IH Q6HR PRN PRN Reason: Wheezing Amlodipine Besylate (Amlodipine 10 Mg Tab) 10 mg PO DAILY [facility] Last Admin: 12/12/21 09:27 Dose: 10 mg Aspirin (Aspirin 81 Mg Tab Chew) 81 mg PO QDAY [facility] Last Admin: 12/12/21 09:27 Dose: 81 mg Atorvastatin Calcium (Atorvastatin 40 Mg Tab) 80 mg PO QHS [facility] Calcium Acetate (Calcium Acetate 667 Mg Cap) 1,334 mg PO TID [facility] Last Admin: 12/12/21 08:25 Dose: 1,334 mg Carvedilol (Carvedilol 25 Mg Tab) 25 mg PO BID [facility] Last Admin: 12/12/21 09:27 Dose: 25 mg Dextrose (Dextrose 50% In Water (25gm) 50 Ml Syringe) 50 ml IV Q30MIN PRN; Protocol PRN Reason: Hypoglycemia Famotidine (Famotidine 20 Mg Tab) 20 mg PO BID [facility] Last Admin: 12/12/21 09:27 Dose: 20 mg Furosemide (Furosemide 40 Mg Tab) 40 mg PO QDAY [facility] Last Admin: 12/12/21 09:27 Dose: 40 mg Sodium Chloride (Nacl 0.9%) 100 mls @ 999 mls/hr IV ABEL PRN PRN Reason: Hypotension Insulin Human Lispro (Insulin Lispro 100 Unit/Ml) 0 unit SUB-Q ACHS [facility]; Protocol Isosorbide Mononitrate (Isosorbide Mononitrate Er 60 Mg Tab) 60 mg PO QDAY [facility] Last Admin: 12/12/21 09:27 Dose: 60 mg Lisinopril (Lisinopril 20 Mg Tab) 20 mg PO BID [facility] Last Admin: 12/12/21 09:27 Dose: 20 mg Miscellaneous Medication (Fluticasone/Umeclidin/Vilanter [Trelegy Ellipta 100-62.5-25]) 1 each IH DAILY [facility] Morphine Sulfate (Morphine 4 Mg/1 Ml Inj) 2 mg IV Q5MIN PRN PRN Reason: Chest Pain unrelieved by NTG Nitroglycerin (Nitroglycerin 0.4 Mg Tab Subl) 0.4 mg SL Q5M PRN PRN Reason: Chest Pain Sevelamer Carbonate (Sevelamer Carbonate 800 Mg Tab) 800 mg PO TIDWM [facility] Last Admin: 12/12/21 09:25 Dose: 800 mg Sodium Chloride (Sodium Chloride 0.9% 10 Ml Flush Syringe) 10 ml IV PRN PRN PRN Reason: LINE FLUSH Spironolactone (Spironolactone 50 Mg Tab) 100 mg PO QDAY [facility] Last Admin: 12/12/21 09:27 Dose: 100 mg Tramadol HCl (Tramadol 50 Mg Tab) 50 mg PO Q6H PRN PRN Reason: Pain, Moderate (4-6) Last Admin: 12/12/21 01:52 Dose: 50 mg Exam - Vital Signs Vital signs: Vital Signs Temp Pulse Resp BP Pulse Ox 98.0 F 86 16 160/78 98 12/11/21 11:55 12/11/21 11:55 12/11/21 11:55 12/11/21 11:55 12/11/21 11:55 - Physical Exam Narrative exam: - General Limitations: No Limitations General appearance: alert, in no apparent distress - Head Head exam: Present: atraumatic, normocephalic - Eye Eye exam: Present: PERRL, EOMI - ENT ENT exam: Present: mucous membranes moist, other (airway patent) - Neck Neck exam: Present: other (painless full ROM; non tender; unable to clear by NEXUS criteria 2/2 possible distracting injury) - Respiratory Respiratory exam: Present: other (good air entry, nml I:E, bibasilar crackles; no use of JIMENA) - Cardiovascular Cardiovascular Exam: Present: regular rate. Absent: rubs, gallop - GI/Abdominal GI/Abdominal exam: Present: soft, normal bowel sounds. Absent: tenderness, guarding - Extremities Exam Extremities exam: Present: other (1+ pretibial edema bilateraslly; R=L; tender to palpation in R hip and along R thigh and parker and in anterior R knee but no defomrity; otherwise, full ROM without deformity, ecchymosis, tenderness in all other extremities; pelvis stable) - Back Exam Back exam: Present: other (no step offs). Absent: vertebral tenderness - Neurological Exam Neurological exam: Present: alert, oriented X3, CN II-XII intact. Absent: motor sensory deficit - Skin Skin exam: Present: warm, normal color Results - Lab Results 12/12/21 04:43 12/12/21 04:43 Most recent lab results Calcium 7.8 mg/dL (8.4-10.2) L 12/12/21 04:43 Assessment and Plan Impression: * ESRD * s/p fall * hypotension * elevated troponin * type 2 DM * history of HTN Plan: * Hold bp meds * hold hd today as hypotensive * plan for HD in am if hemodynamically stable * renal diet, fluid restriction * strict i/os and daily lytes * uf as tolerated with hd * cardiac workup per primary team
[2021-12-12] MEDS ORDERED: SODIUM CHLORIDE 0.9% 500 ML 500 ML IV SCH (13:00)
--- NOTE | 2021-12-12 14:59 | Consultation ---
History of Present Illness Consult date: 12/12/21 Consult reason: syncope History of present illness: The patient is a 66-year-old woman with a history of hypertension, diabetes, end -stage renal disease on hemodialysis. She recently relocated here from [place] and was in this hospital 2 weeks ago after several missed dialysis sessions. She was treated for fluid overload, dialysis treatments were reinitiated. An echocardiogram during that presentation showed moderate severi ty cardiomyopathy with ejection fraction 35 to 40%. There was no apparent cardiology consultation assessment of fluid overload or cardiomyopathy. The patient's prior cardiac history while in [place] is poorly documented. On the current presentation, she came to the emergency room with right hip pain. She apparently fell on her hip following a fall at home, which was preceded by transient dizziness. There was no chest pain, there was no palpitations, she has no lower extremity edema. It will also be noted that she had missed 1 dialysis session prior to the event. Work-up in the hospital so far, EKG is sinus rhythm with nonspecific ST changes. Chest x-ray shows a mild to moderate severity cardiomegaly, but clear lungs. The cardiac troponin levels measured was 0.16, unchanged on serial measurements. Past History Past Medical History: ESRD, GERD, heart failure, hypertension, renal failure Past Surgical History: Other (Right anterior chest hemodialysis port) Social history: no significant social history Family history: no significant family history, hypertension Medications and Allergies Allergies Allergy/AdvReac Type Severity Reaction Status Date / Time No Known Allergies Allergy Verified 12/11/21 22:19 Home Medications Medication Instructions Recorded Confirmed Last Taken Type Albuterol Sulfate [Proair 2 puff IH Q6HR PRN 11/23/21 11/23/21 Unknown History Digihaler] Calcium Acetate 2 tab PO TID 11/23/21 11/23/21 Unknown History Fluticasone/Umeclidin/Vilanter 1 each IH DAILY 11/23/21 11/23/21 Unknown History [Trelegy Ellipta 100-62.5-25] Furosemide [Lasix TAB] 40 mg PO QDAY 11/23/21 11/23/21 Unknown History Insulin Aspart (Nf) [NovoLOG 55 unit SQ TID 11/23/21 11/23/21 Unknown History Flexpen] Insulin Glargine [Lantus VIAL] 25 units SQ QHS 11/23/21 11/23/21 Unknown History Omeprazole 20 mg PO DAILY 11/23/21 11/23/21 Unknown History Spironolactone [Aldactone] 100 mg PO QDAY 11/23/21 11/23/21 Unknown History lisinopriL [Lisinopril] 20 mg PO BID 11/23/21 11/23/21 Unknown History Docusate Sodium [Colace CAP] 100 mg PO BID PRN #60 capsule 11/24/21 Unknown Rx Aspirin EC [Halfprin EC] 81 mg PO DAILY 90 Days #90 tablet 11/26/21 Unknown Rx Aspirin [Adult Aspirin] 81 mg PO DAILY 90 Days #90 tab 11/26/21 Unknown Rx ISOSORBIDE MONOnitrate [Imdur ER] 60 mg PO QDAY 90 Days #90 tab 11/26/21 Unknown Rx Sevelamer Carbonate [Renvela] 800 mg PO TIDWM 90 Days #270 tab 11/26/21 11/23/21 Unknown Rx amLODIPine 10 mg PO DAILY 90 Days #90 tab 11/26/21 Unknown Rx carvediloL [Coreg] 25 mg PO BID 90 Days #180 tab 11/26/21 Unknown Rx Atorvastatin Calcium [Lipitor] 80 mg PO QHS 90 Days #90 tab 11/27/21 Unknown Rx Active Meds: Active Medications Acetaminophen (Acetaminophen 325 Mg Tab) 650 mg PO Q6H PRN PRN Reason: Pain, Mild (1-3) Albuterol (Albuterol 2.5 Mg/3 Ml Nebu) 2.5 mg IH Q6HR PRN PRN Reason: Wheezing Aspirin (Aspirin 81 Mg Tab Chew) 81 mg PO QDAY [facility] Last Admin: 12/12/21 09:27 Dose: 81 mg Atorvastatin Calcium (Atorvastatin 40 Mg Tab) 80 mg PO QHS [facility] Calcium Acetate (Calcium Acetate 667 Mg Cap) 1,334 mg PO TID [facility] Last Admin: 12/12/21 13:11 Dose: 1,334 mg Dextrose (Dextrose 50% In Water (25gm) 50 Ml Syringe) 50 ml IV Q30MIN PRN; Protocol PRN Reason: Hypoglycemia Famotidine (Famotidine 20 Mg Tab) 20 mg PO BID [facility] Last Admin: 12/12/21 09:27 Dose: 20 mg Furosemide (Furosemide 40 Mg Tab) 40 mg PO QDAY [facility] Last Admin: 12/12/21 09:27 Dose: 40 mg Sodium Chloride (Nacl 0.9%) 100 mls @ 999 mls/hr IV ABEL PRN PRN Reason: Hypotension Sodium Chloride (Nacl 0.9% 500 Ml) 500 mls @ 999 mls/hr IV ONCE@1300 [facility] Stop: 12/12/21 17:00 Last Admin: 12/12/21 13:12 Dose: 999 mls/hr Insulin Human Lispro (Insulin Lispro 100 Unit/Ml) 0 unit SUB-Q ACHS [facility]; Protocol Last Admin: 12/12/21 12:15 Dose: Not Given Isosorbide Mononitrate (Isosorbide Mononitrate Er 60 Mg Tab) 60 mg PO QDAY [facility] Last Admin: 12/12/21 09:27 Dose: 60 mg Miscellaneous Medication (Fluticasone/Umeclidin/Vilanter [Trelegy Ellipta 100-62.5-25]) 1 each IH DAILY [facility] Morphine Sulfate (Morphine 4 Mg/1 Ml Inj) 2 mg IV Q5MIN PRN PRN Reason: Chest Pain unrelieved by NTG Nitroglycerin (Nitroglycerin 0.4 Mg Tab Subl) 0.4 mg SL Q5M PRN PRN Reason: Chest Pain Sevelamer Carbonate (Sevelamer Carbonate 800 Mg Tab) 800 mg PO TIDWM [facility] Last Admin: 12/12/21 13:11 Dose: 800 mg Sodium Chloride (Sodium Chloride 0.9% 10 Ml Flush Syringe) 10 ml IV PRN PRN PRN Reason: LINE FLUSH Tramadol HCl (Tramadol 50 Mg Tab) 50 mg PO Q6H PRN PRN Reason: Pain, Moderate (4-6) Last Admin: 12/12/21 01:52 Dose: 50 mg Review of Systems Cardiovascular: syncope, shortness of breath, no chest pain, no orthopnea, no palpitations, no rapid/irregular heart beat, no edema, no lightheadedness Physical Examination Vital Signs Temp Pulse Resp BP Pulse Ox 98.0 F 86 16 160/78 98 12/11/21 11:55 12/11/21 11:55 12/11/21 11:55 12/11/21 11:55 12/11/21 11:55 General appearance: no acute distress HEENT: Positive: PERRL Neck: Positive: neck supple Cardiac: Positive: Reg Rate and Rhythm Lungs: Positive: clear to auscultation Neuro: Positive: Grossly Intact Abdomen: Positive: Soft Female genitourinary: deferred Skin: Positive: Clear Extremities: Absent: edema Results 12/12/21 04:43 12/12/21 04:43 Cardiac Enzymes 12/11/21 Range/Units 15:40 AST 22 (5-40) units/L Lipids 12/11/21 Range/Units 15:40 Triglycerides 92 (2-149) mg/dL Cholesterol 72 (50-199) mg/dL HDL Cholesterol 41 (40-59) mg/dL Cholesterol/HDL Ratio 1.75 % CBC 12/11/21 12/12/21 Range/Units 14:52 04:43 WBC 10.4 7.0 (4.5-11.0) K/mm3 RBC 3.57 L 3.73 (3.65-5.03) M/mm3 Hgb 9.4 L 10.1 (10.1-14.3) gm/dl Hct 29.5 L 30.6 (30.3-42.9) % Plt Count 119 L 110 L (140-440) K/mm3 Lymph # (Auto) 0.3 L (1.2-5.4) K/mm3 [place] # (Auto) 0.4 (0.0-0.8) K/mm3 Eos # (Auto) 0.0 (0.0-0.4) K/mm3 Baso # (Auto) 0.0 (0.0-0.1) K/mm3 Comprehensive Metabolic Panel 12/11/21 12/12/21 Range/Units 15:40 04:43 Sodium 139 136 L (137-145) mmol/L Potassium 4.4 4.3 (3.6-5.0) mmol/L Chloride 98.2 96.0 L (98-107) mmol/L Carbon Dioxide 18 L 22 (22-30) mmol/L BUN 76 H 85 H (7-17) mg/dL Creatinine 9.2 H 9.6 H (0.6-1.2) mg/dL Glucose 83 57 L (65-100) mg/dL Calcium 7.7 L 7.8 L (8.4-10.2) mg/dL AST 22 (5-40) units/L ALT 13 (7-56) units/L Alkaline Phosphatase 237 H (35-129) units/L Total Protein 7.4 (6.3-8.2) g/dL Albumin 3.6 L (3.9-5) g/dL EKG interpretations - Telemetry EKG Rhythm: Sinus Rhythm Assessment and Plan - Patient Problems (1) Syncope Current Visit: Yes Status: Acute Plan to address problem: Patient reports episode of transient dizziness causing a fall which resulted in right hip pain. She has end-stage renal disease on hemodialysis, has missed at least 1 dialysis session. She also has a moderate severity cardiomyopathy with ejection fraction 35 to 40% on an echocardiogram just 2 weeks ago. The etiology of her cardiomyopathy is not known at this time, we do not have her records from [place] for review. We will optimize guideline directed medical therapy directed at the underlying cardiomyopathy, and plan a predischarge Lexiscan thallium stress test for ischemia assessment. As outpatient, she may also benefit from extended event monitoring.
--- NOTE | 2021-12-12 15:20 | Progress Note ---
Assessment and Plan Assessment and plan: #History of hypertension #Hypotension -Lisinopril 20 mg p.o. twice daily Imdur 60 mg p.o. daily at home -Blood pressure medications currently held -Blood pressure responsive to fluid boluses -will continue to monitor #NSTEMI -Troponin peak 0.187, could be secondary to ESRD -Continue aspirin 81 mg and Lipitor 80 mg p.o. daily -Echocardiogram 11/23: EF 35-40% -Plan for stress test on Wednesday -Cardiology consulted, assistance appreciated #Contusion of right lower extremity #Fall -Right lower extremity imaging negative for acute findings -Continue fall precautions -Physical therapy eval ordered -As needed pain medications #Pre-syncope -Echocardiogram ordered -Orthostatic vital signs -Given patient fluctuation in blood pressure, likely cause may be orthostatic hypotension -Cardiology consulted, assistance appreciated #heart failure with reduced ejection fraction -not in acute exacerbation TTE LVEF 35-40% -holding GDMT due to hypotension #Chronic hypoxic respiratory failure-stable -baseline oxygen requirements: 2 L -currently using 2L NC #ESRD (end stage renal disease) on dialysis -Continue inpatient hemodialysis as blood pressure will allow -Nephrology consulted, assistance appreciated -Avoid nephrotoxins, renally dose medication #Normocytic anemia, chronic #Thrombocytopenia, chronic -will transfuse for hemoglobin less than 7 #Type 2 diabetes mellitus with diabetic chronic kidney disease #history of hypoglycemia -Lantus discontinued -will continue with sliding scale -Hypoglycemic protocol #Advanced care planning -Disease education conducted, care plan discussed, diagnoses discussed, prognosis discussed, and patient acknowledges understanding with care plan -Time: +30 min History Interval history: No acute events overnight. Patient reports extreme pain in her right leg. She has not asked for any pain medication. Denies chest pain or shortness of breath currently. Hospitalist Physical - Physical exam Narrative exam: GENERAL: Well-developed well-nourished. Sitting on the side of the bed in no acute distress. HEENT: 2LNC NECK: Supple. CHEST/LUNGS: CTAB on room air HEART/CARDIOVASCULAR: RRR. No murmur, rubs or gallops appreciated. ABDOMEN: +BS. NT/ND. SKIN: No rashes noted. NEURO: No focal motor deficit. Follows all commands. MUSCULOSKELETAL: Right hip tender to palpation. EXTREMITIES: Left upper extremity AV fistula with thrill. No cyanosis, clubbing or edema. PSYCH: Cooperative. - Constitutional Vitals: Temp Pulse Resp BP Pulse Ox 98.3 F 63 18 95/54 92 12/12/21 08:44 12/12/21 13:21 12/12/21 04:12 12/12/21 13:21 12/12/21 13:21 General appearance: Present: no acute distress HEART Score - HEART Score Troponin: Troponin T 0.175 ng/mL (0.00-0.029) H* 12/12/21 04:43 Results - Labs CBC & Chem 7: 12/13/21 07:30 12/13/21 07:30 Labs: Laboratory Last Values WBC 7.0 K/mm3 (4.5-11.0) 12/12/21 04:43 RBC 3.73 M/mm3 (3.65-5.03) 12/12/21 04:43 Hgb 10.1 gm/dl (10.1-14.3) 12/12/21 04:43 Hct 30.6 % (30.3-42.9) 12/12/21 04:43 MCV 82 fl (79-97) 12/12/21 04:43 MCH 27 pg (28-32) L 12/12/21 04:43 MCHC 33 % (30-34) 12/12/21 04:43 RDW 17.9 % (13.2-15.2) H 12/12/21 04:43 Plt Count 110 K/mm3 (140-440) L 12/12/21 04:43 Lymph % (Auto) 4.0 % (13.4-35.0) L 12/12/21 04:43 [place] % (Auto) 5.4 % (0.0-7.3) 12/12/21 04:43 Eos % (Auto) 0.0 % (0.0-4.3) 12/12/21 04:43 Baso % (Auto) 0.6 % (0.0-1.8) 12/12/21 04:43 Lymph # (Auto) 0.3 K/mm3 (1.2-5.4) L 12/12/21 04:43 [place] # (Auto) 0.4 K/mm3 (0.0-0.8) 12/12/21 04:43 Eos # (Auto) 0.0 K/mm3 (0.0-0.4) 12/12/21 04:43 Baso # (Auto) 0.0 K/mm3 (0.0-0.1) 12/12/21 04:43 Seg Neutrophils % 90.0 % (40.0-70.0) H 12/12/21 04:43 Seg Neutrophils # 6.3 K/mm3 (1.8-7.7) 12/12/21 04:43 Sodium 136 mmol/L (137-145) L 12/12/21 04:43 Potassium 4.3 mmol/L (3.6-5.0) 12/12/21 04:43 Chloride 96.0 mmol/L (98-107) L 12/12/21 04:43 Carbon Dioxide 22 mmol/L (22-30) 12/12/21 04:43 Anion Gap 22 mmol/L 12/12/21 04:43 BUN 85 mg/dL (7-17) H 12/12/21 04:43 Creatinine 9.6 mg/dL (0.6-1.2) H 12/12/21 04:43 Estimated GFR 5 ml/min 12/12/21 04:43 BUN/Creatinine Ratio 9 % 12/12/21 04:43 Glucose 57 mg/dL (65-100) L 12/12/21 04:43 Calcium 7.8 mg/dL (8.4-10.2) L 12/12/21 04:43 Total Bilirubin 0.60 mg/dL (0.1-1.2) 12/11/21 15:40 AST 22 units/L (5-40) 12/11/21 15:40 ALT 13 units/L (7-56) 12/11/21 15:40 Alkaline Phosphatase 237 units/L (35-129) H 12/11/21 15:40 Troponin T 0.175 ng/mL (0.00-0.029) H* 12/12/21 04:43 Total Protein 7.4 g/dL (6.3-8.2) 12/11/21 15:40 Albumin 3.6 g/dL (3.9-5) L 12/11/21 15:40 Albumin/Globulin Ratio 0.9 % 12/11/21 15:40 Triglycerides 92 mg/dL (2-149) 12/11/21 15:40 Cholesterol 72 mg/dL (50-199) 12/11/21 15:40 LDL Cholesterol Direct 16 mg/dL (50-130) L 12/11/21 15:40 HDL Cholesterol 41 mg/dL (40-59) 12/11/21 15:40 Cholesterol/HDL Ratio 1.75 % 12/11/21 15:40 Active Medications - Current Medications Current Medications: Generic Name Dose Route Start Last Admin Trade Name Freq PRN Reason Stop Dose Admin Acetaminophen 650 mg 12/11/21 22:11 Acetaminophen 325 Mg Tab PO Q6H PRN Pain, Mild (1-3) Albuterol 2.5 mg 12/11/21 22:14 Albuterol 2.5 Mg/3 Ml Nebu IH Q6HR PRN Wheezing Aspirin 81 mg 12/12/21 10:00 12/12/21 09:27 Aspirin 81 Mg Tab Chew PO 81 mg QDAY KRISTA Administration Atorvastatin Calcium 80 mg 12/12/21 22:00 Atorvastatin 40 Mg Tab PO QHS KRISTA Calcium Acetate 1,334 mg 12/12/21 08:00 12/12/21 13:11 Calcium Acetate 667 Mg Cap PO 1,334 mg TID KRISTA Administration Dextrose 50 ml 12/11/21 22:23 Dextrose 50% In Water (25gm) 50 Ml Syringe IV Q30MIN PRN Hypoglycemia Protocol Famotidine 20 mg 12/12/21 10:00 12/12/21 09:27 Famotidine 20 Mg Tab PO 20 mg BID KRISTA Administration Furosemide 40 mg 12/12/21 10:00 12/12/21 09:27 Furosemide 40 Mg Tab PO 40 mg QDAY KRISTA Administration Sodium Chloride 100 mls @ 999 mls/hr 12/12/21 12:00 Nacl 0.9% IV ABEL PRN Hypotension Sodium Chloride 500 mls @ 999 mls/hr 12/12/21 13:00 12/12/21 13:12 Nacl 0.9% 500 Ml IV 12/12/21 17:00 999 mls/hr ONCE@1300 KRISTA Administration Insulin Human Lispro 0 unit 12/12/21 07:30 12/12/21 12:15 Insulin Lispro 100 Unit/Ml SUB-Q Not Given ACHS KRISTA Protocol Isosorbide Mononitrate 60 mg 12/12/21 10:00 12/12/21 09:27 Isosorbide Mononitrate Er 60 Mg Tab PO 60 mg QDAY [facility]STA Administration Miscellaneous Medication 1 each 12/12/21 10:00 Fluticasone/Umeclidin/Vilanter [Trelegy Ellipta 100-62.5-25] IH DAILY KRISTA Morphine Sulfate 2 mg 12/11/21 22:11 Morphine 4 Mg/1 Ml Inj IV Q5MIN PRN Chest Pain unrelieved by NTG Nitroglycerin 0.4 mg 12/11/21 22:11 Nitroglycerin 0.4 Mg Tab Subl SL Q5M PRN Chest Pain Sevelamer Carbonate 800 mg 12/12/21 08:00 12/12/21 13:11 Sevelamer Carbonate 800 Mg Tab PO 800 mg TIDWM KRISTA Administration Sodium Chloride 10 ml 12/11/21 22:11 Sodium Chloride 0.9% 10 Ml Flush Syringe IV PRN PRN LINE FLUSH Tramadol HCl 50 mg 12/11/21 22:11 12/12/21 01:52 Tramadol 50 Mg Tab PO 50 mg Q6H PRN Administration Pain, Moderate (4-6) Nutrition/Malnutrition Assess - Dietary Evaluation Nutrition/Malnutrition Findings: Nutrition Notes Start: 12/12/21 11:57 Freq: Status: Active Protocol: Document 12/12/21 11:58 SERINA (Rec: 12/12/21 12:01 SERINA [id number]) Nutrition Notes Need for Assessment generated from: MD Order,Education Initial or Follow up Brief Note Current Diagnosis CKD (stage V CKD),Diabetes, Hypertension Other Pertinent Diagnosis s/p fall, (R) hip pain Current Diet Renal/Consistent CHO Weight Status Appropriate Subjective/Other Information RD consulted for diet education. Neither BP or BG elevated; lipid panel ok as well. Burn Absent Trauma Absent Minimum of two criteria No Nutrition Intervention Follow-Up By: 12/16/21 Additional Comments F/U: intakes
--- NOTE | 2021-12-12 17:14 | Electrocardiograph Report ---
[facility] Test Date: 2021-12-11 Test Time: 17:31:08 Pat Name: HEMAL WOO Department: Room: A485 1 Gender: F Sinter Feeder: REGULO : 1955 Requested By: KAMILAH DANIEL Order Number: [id number] Reading MD: Dmitriy Truong Measurements Intervals [place] Rate: 75 P: [place]: QRS: 45 QRSD: 89 T: 170 QT: 423 QTc: 473 Interpretive Statements Sinus rhythm with first-degree AV block Possible old anterior infarct Nonspecific T wave changes Compared to ECG 11/23/2021 07:29:15 No significant change Electronically Signed On 12-12-2021 17:14:14 EDT by Dmitriy Truong
--- NOTE | 2021-12-12 17:22 | Electrocardiograph Report ---
[facility] Test Date: 2021-12-12 Test Time: 10:57:39 Pat Name: HEMAL WOO Department: Room: A485 1 Gender: F Stripper Latex: CHINYERE : 1955 Requested By: KATHLEEN ALVAREZ Order Number: [id number] Reading MD: Dmitriy Truong Measurements Intervals [place] Rate: 68 P: 18 TN: 239 QRS: 79 QRSD: 96 T: 94 QT: 450 QTc: 478 Interpretive Statements Sinus rhythm Prolonged TN interval Low voltage, extremity and precordial leads Probable anteroseptal infarct, old Compared to ECG 12/11/2021 17:31:08 No significant change Electronically Signed On 12-12-2021 17:22:29 EDT by Dmitriy Truong
[2021-12-12] MEDS: SODIUM CHLORIDE 0.9% 500 ML 500 ML IV SCH (17:41)
[2021-12-12] MEDS ORDERED: NON-FORMULARY EACH (Atorvastatin Calcium [Lipitor] 80 MG Tablet) PO SCH (22:00)
[2021-12-12] MEDS ORDERED: INSULIN GLARGINE 100 UNITS/ML SUB-Q SCH (22:00)
[2021-12-13] MEDS: IPRATROPIUM/ALBUTEROL SULFATE 3 ML AMPUL.NEB IH SCH ×4 (03:45→22:05)
[2021-12-13 08:17] LABS: Basophils % (Auto) 0.1 % (0.0-1.8); Hemoglobin 9.7 gm/dl (10.1-14.3); Lymphocytes # (Auto) 0.3 K/mm3 (1.2-5.4); Lymphocytes % (Auto) 4.8 % (13.4-35.0); Mean Corpuscular HGB Conc 33 % (30-34); Mean Corpuscular Volume 82 fl (79-97); Monocytes # (Auto) 0.5 K/mm3 (0.0-0.8); Monocytes % (Auto) 6.9 % (0.0-7.3); Red Blood Count 3.66 M/mm3 (3.65-5.03)
[2021-12-13 08:21] LABS: Platelet Count 99 K/mm3 (140-440)
[2021-12-13 08:39] LABS: Calcium 7.6 mg/dL (8.4-10.2)
[2021-12-13] MEDS: BUDESONIDE 0.5 MG/2 ML NEBU IH SCH ×2 (08:50→22:05)
--- NOTE | 2021-12-13 08:53 | Progress Note ---
Assessment and Plan Assessment and plan: #History of hypertension #Hypotension -Lisinopril 20 mg p.o. twice daily Imdur 60 mg p.o. daily at home -Blood pressure medications currently held -Blood pressure responsive to fluid boluses -will start midodrine 5mg TID -will continue to monitor #NSTEMI -Troponin peak 0.187, could be secondary to ESRD -Continue aspirin 81 mg and Lipitor 80 mg p.o. daily -Echocardiogram 11/23: EF 35-40% -Plan for stress test on Wednesday -Cardiology consulted, assistance appreciated #Contusion of right lower extremity #Fall -Right lower extremity imaging negative for acute findings -Continue fall precautions -Physical therapy eval ordered -As needed pain medications #Pre-syncope -Echocardiogram ordered -Orthostatic vital signs -Given patient fluctuation in blood pressure, likely cause may be orthostatic hypotension -Cardiology consulted, assistance appreciated #heart failure with reduced ejection fraction -not in acute exacerbation TTE LVEF 35-40% -holding GDMT due to hypotension #Chronic hypoxic respiratory failure-stable -baseline oxygen requirements: 2 L -currently using 2L NC #History of CAD -continue ASA + statin #ESRD (end stage renal disease) on dialysis -Continue inpatient hemodialysis as blood pressure will allow -Nephrology consulted, assistance appreciated -Avoid nephrotoxins, renally dose medication #Normocytic anemia, chronic #Thrombocytopenia, chronic -will transfuse for hemoglobin less than 7 #Type 2 diabetes mellitus with diabetic chronic kidney disease #history of hypoglycemia -Lantus discontinued -will continue with sliding scale -Hypoglycemic protocol #Advanced care planning -Disease education conducted, care plan discussed, diagnoses discussed, prognosis discussed, and patient acknowledges understanding with care plan -Time: +30 min History Interval history: No acute events overnight. Patient tearful and complaining of right leg pain. Patient refused medication. Denying chest pain or shortness of breath. Hospitalist Physical - Physical exam Narrative exam: GENERAL: Well-developed well-nourished. Sitting on the side of the bed in no acute distress. HEENT: 2LNC NECK: Supple. CHEST/LUNGS: CTAB on room air HEART/CARDIOVASCULAR: RRR. No murmur, rubs or gallops appreciated. ABDOMEN: +BS. NT/ND. SKIN: No rashes noted. NEURO: No focal motor deficit. Follows all commands. MUSCULOSKELETAL: Right hip tender to palpation. EXTREMITIES: Left upper extremity AV fistula with thrill. No cyanosis, clubbing or edema. PSYCH: Cooperative. - Constitutional Vitals: Temp Pulse Resp BP Pulse Ox 98.0 F 82 16 104/57 91 12/13/21 08:04 12/13/21 08:04 12/13/21 08:04 12/13/21 08:04 12/13/21 08:04 General appearance: Present: no acute distress HEART Score - HEART Score Troponin: Troponin T 0.175 ng/mL (0.00-0.029) H* 12/12/21 04:43 Results - Labs CBC & Chem 7: 12/13/21 07:30 12/13/21 07:30 Labs: Laboratory Last Values WBC 6.7 K/mm3 (4.5-11.0) 12/13/21 07:30 RBC 3.66 M/mm3 (3.65-5.03) 12/13/21 07:30 Hgb 9.7 gm/dl (10.1-14.3) L 12/13/21 07:30 Hct 30.0 % (30.3-42.9) L 12/13/21 07:30 MCV 82 fl (79-97) 12/13/21 07:30 MCH 27 pg (28-32) L 12/13/21 07:30 MCHC 33 % (30-34) 12/13/21 07:30 RDW 18.0 % (13.2-15.2) H 12/13/21 07:30 Plt Count 99 K/mm3 (140-440) L 12/13/21 07:30 Lymph % (Auto) 4.8 % (13.4-35.0) L 12/13/21 07:30 [place] % (Auto) 6.9 % (0.0-7.3) 12/13/21 07:30 Eos % (Auto) 0.0 % (0.0-4.3) 12/13/21 07:30 Baso % (Auto) 0.1 % (0.0-1.8) 12/13/21 07:30 Lymph # (Auto) 0.3 K/mm3 (1.2-5.4) L 12/13/21 07:30 [place] # (Auto) 0.5 K/mm3 (0.0-0.8) 12/13/21 07:30 Eos # (Auto) 0.0 K/mm3 (0.0-0.4) 12/13/21 07:30 Baso # (Auto) 0.0 K/mm3 (0.0-0.1) 12/13/21 07:30 Seg Neutrophils % 88.2 % (40.0-70.0) H 12/13/21 07:30 Seg Neutrophils # 5.9 K/mm3 (1.8-7.7) 12/13/21 07:30 Sodium 139 mmol/L (137-145) 12/13/21 07:30 Potassium 5.1 mmol/L (3.6-5.0) H 12/13/21 07:30 Chloride 97.8 mmol/L (98-107) L 12/13/21 07:30 Carbon Dioxide 16 mmol/L (22-30) L 12/13/21 07:30 Anion Gap 30 mmol/L 12/13/21 07:30 BUN 92 mg/dL (7-17) H 12/13/21 07:30 Creatinine 10.6 mg/dL (0.6-1.2) H 12/13/21 07:30 Estimated GFR 4 ml/min 12/13/21 07:30 BUN/Creatinine Ratio 9 % 12/13/21 07:30 Glucose 121 mg/dL (65-100) H 12/13/21 07:30 POC Glucose 92 mg/dL (70-105) 12/12/21 21:11 Calcium 7.6 mg/dL (8.4-10.2) L 12/13/21 07:30 Total Bilirubin 0.60 mg/dL (0.1-1.2) 12/11/21 15:40 AST 22 units/L (5-40) 12/11/21 15:40 ALT 13 units/L (7-56) 12/11/21 15:40 Alkaline Phosphatase 237 units/L (35-129) H 12/11/21 15:40 Troponin T 0.175 ng/mL (0.00-0.029) H* 12/12/21 04:43 Total Protein 7.4 g/dL (6.3-8.2) 12/11/21 15:40 Albumin 3.6 g/dL (3.9-5) L 12/11/21 15:40 Albumin/Globulin Ratio 0.9 % 12/11/21 15:40 Triglycerides 92 mg/dL (2-149) 12/11/21 15:40 Cholesterol 72 mg/dL (50-199) 12/11/21 15:40 LDL Cholesterol Direct 16 mg/dL (50-130) L 12/11/21 15:40 HDL Cholesterol 41 mg/dL (40-59) 12/11/21 15:40 Cholesterol/HDL Ratio 1.75 % 12/11/21 15:40 Active Medications - Current Medications Current Medications: Generic Name Dose Route Start Last Admin Trade Name Freq PRN Reason Stop Dose Admin Acetaminophen 650 mg 12/11/21 22:11 Acetaminophen 325 Mg Tab PO Q6H PRN Pain, Mild (1-3) Albuterol 2.5 mg 12/11/21 22:14 Albuterol 2.5 Mg/3 Ml Nebu IH Q6HR PRN Wheezing Albuterol/Ipratropium 1 ampul 12/13/21 02:00 12/13/21 03:45 Ipratropium/Albuterol Sulfate 3 Ml Ampul.Neb IH Not Given Q6HRT KRISTA Aspirin 81 mg 12/12/21 10:00 12/12/21 09:27 Aspirin 81 Mg Tab Chew PO 81 mg QDAY KRISTA Administration Atorvastatin Calcium 80 mg 12/12/21 22:00 12/12/21 21:55 Atorvastatin 40 Mg Tab PO 80 mg QHS KRISTA Administration Budesonide 0.5 mg 12/13/21 08:00 Budesonide 0.5 Mg/2 Ml Nebu IH Q12HRT KRISTA Calcium Acetate 1,334 mg 12/12/21 08:00 12/12/21 21:55 Calcium Acetate 667 Mg Cap PO 1,334 mg TID KRISTA Administration Dextrose 50 ml 12/11/21 22:23 Dextrose 50% In Water (25gm) 50 Ml Syringe IV Q30MIN PRN Hypoglycemia Protocol Famotidine 20 mg 12/12/21 10:00 12/12/21 21:55 Famotidine 20 Mg Tab PO 20 mg BID KRISTA Administration Sodium Chloride 100 mls @ 999 mls/hr 12/12/21 12:00 Nacl 0.9% IV ABEL PRN Hypotension Sodium Chloride 500 mls @ 50 mls/hr 12/12/21 17:00 12/12/21 17:41 Nacl 0.9% 500 Ml IV 50 mls/hr DIRECT KRISTA Administration Insulin Human Lispro 0 unit 12/12/21 07:30 12/12/21 21:55 Insulin Lispro 100 Unit/Ml SUB-Q Not Given ACHS KRISTA Protocol Morphine Sulfate 2 mg 12/11/21 22:11 Morphine 4 Mg/1 Ml Inj IV Q5MIN PRN Chest Pain unrelieved by NTG Nitroglycerin 0.4 mg 12/11/21 22:11 Nitroglycerin 0.4 Mg Tab Subl SL Q5M PRN Chest Pain Sevelamer Carbonate 800 mg 12/12/21 08:00 12/12/21 17:39 Sevelamer Carbonate 800 Mg Tab PO 800 mg TIDWM KRISTA Administration Sodium Chloride 10 ml 12/11/21 22:11 Sodium Chloride 0.9% 10 Ml Flush Syringe IV PRN PRN LINE FLUSH Tramadol HCl 50 mg 12/11/21 22:11 12/12/21 01:52 Tramadol 50 Mg Tab PO 50 mg Q6H PRN Administration Pain, Moderate (4-6) Nutrition/Malnutrition Assess - Dietary Evaluation Nutrition/Malnutrition Findings: Nutrition Notes Start: 12/12/21 11: 57 Freq: Status: Active Protocol: Document 12/12/21 11:58 SERINA (Rec: 12/12/21 12:01 SERINA [id number]) Nutrition Notes Need for Assessment generated from: MD Order,Education Initial or Follow up Brief Note Current Diagnosis CKD (stage V CKD),Diabetes, Hypertension Other Pertinent Diagnosis s/p fall, (R) hip pain Current Diet Renal/Consistent CHO Weight Status Appropriate Subjective/Other Information RD consulted for diet education. Neither BP or BG elevated; lipid panel ok as well. Burn Absent Trauma Absent Minimum of two criteria No Nutrition Intervention Follow-Up By: 12/16/21 Additional Comments F/U: intakes
[2021-12-13] MEDS: SEVELAMER CARBONATE 800 MG TAB PO SCH ×3 (08:54→17:53)
[2021-12-13] MEDS: CALCIUM ACETATE 667 MG CAP PO SCH ×3 (08:54→21:20)
[2021-12-13] MEDS: FAMOTIDINE 20 MG TAB PO SCH (09:54)
[2021-12-13] MEDS: ASPIRIN 81 MG TAB CHEW PO SCH (09:54)
[2021-12-13] MEDS: INSULIN LISPRO 100 UNIT/ML SUB-Q SCH ×4 (09:55→21:17)
--- NOTE | 2021-12-13 10:05 | Progress Note ---
Assessment and Plan Impression: * ESRD * s/p fall * hypotension * elevated troponin * type 2 DM * history of HTN Plan: * held bp meds * plan for HD TTHSAT if hemodynamically stable * renal diet, fluid restriction * strict i/os and daily lytes * uf as tolerated with hd * cardiac workup, plans for stress testing noted Subjective Date of service: 12/13/21 Principal diagnosis: hypotension Interval history: resting in bed today events noted Objective - Exam Narrative Exam: - General Limitations: No Limitations General appearance: alert, in no apparent distress - Head Head exam: Present: atraumatic, normocephalic - Eye Eye exam: Present: PERRL, EOMI - ENT ENT exam: Present: mucous membranes moist, other (airway patent) - Neck Neck exam: Present: other (painless full ROM; non tender; unable to clear by NEXUS criteria 2/2 possible distracting injury) - Respiratory Respiratory exam: Present: other (good air entry, nml I:E, bibasilar crackles; no use of JIMENA) - Cardiovascular Cardiovascular Exam: Present: regular rate. Absent: rubs, gallop - GI/Abdominal GI/Abdominal exam: Present: soft, normal bowel sounds. Absent: tenderness, guarding - Extremities Exam Extremities exam: Present: other (1+ pretibial edema bilateraslly; R=L; tender to palpation in R hip and along R thigh and parker and in anterior R knee but no defomrity; otherwise, full ROM without deformity, ecchymosis, tenderness in all other extremities; pelvis stable) - Back Exam Back exam: Present: other (no step offs). Absent: vertebral tenderness - Neurological Exam Neurological exam: Present: alert, oriented X3, CN II-XII intact. Absent: motor sensory deficit - Skin Skin exam: Present: warm, normal color - Vital Signs Vital signs: Vital Signs - 12hr 12/13/21 12/13/21 12/13/21 00:36 04:11 07:58 Temperature 98.2 F 98.3 F Pulse Rate 77 69 Pulse Rate [ Anterior Bilateral Throughout] Respiratory 18 18 Rate Respiratory Rate [Anterior Bilateral Throughout] Blood Pressure 93/50 117/95 O2 Sat by Pulse 94 100 100 Oximetry 12/13/21 12/13/21 08:04 08:50 Temperature 98.0 F Pulse Rate 82 Pulse Rate [ 83 Anterior Bilateral Throughout] Respiratory 16 Rate Respiratory 18 Rate [Anterior Bilateral Throughout] Blood Pressure 104/57 O2 Sat by Pulse 91 98 Oximetry - Lab 12/13/21 07:30 12/13/21 07:30 Most recent lab results Calcium 7.6 mg/dL (8.4-10.2) L 12/13/21 07:30 Medications & Allergies - Medications Allergies/Adverse Reactions: Allergies No Known Allergies Allergy (Verified 12/11/21 22:19) Home Medications: Home Medications Medication Instructions Recorded Confirmed Last Taken Type Albuterol Sulfate [Proair 2 puff IH Q6HR PRN 11/23/21 11/23/21 Unknown History Digihaler] Calcium Acetate 2 tab PO TID 11/23/21 11/23/21 Unknown History Fluticasone/Umeclidin/Vilanter 1 each IH DAILY 11/23/21 11/23/21 Unknown History [Trelegy Ellipta 100-62.5-25] Furosemide [Lasix TAB] 40 mg PO QDAY 11/23/21 11/23/21 Unknown History Insulin Aspart (Nf) [NovoLOG 55 unit SQ TID 11/23/21 11/23/21 Unknown History Flexpen] Insulin Glargine [Lantus VIAL] 25 units SQ QHS 11/23/21 11/23/21 Unknown History Omeprazole 20 mg PO DAILY 11/23/21 11/23/21 Unknown History Spironolactone [Aldactone] 100 mg PO QDAY 11/23/21 11/23/21 Unknown History lisinopriL [Lisinopril] 20 mg PO BID 11/23/21 11/23/21 Unknown History Docusate Sodium [Colace CAP] 100 mg PO BID PRN #60 capsule 11/24/21 Unknown Rx Aspirin EC [Halfprin EC] 81 mg PO DAILY 90 Days #90 tablet 11/26/21 Unknown Rx Aspirin [Adult Aspirin] 81 mg PO DAILY 90 Days #90 tab 11/26/21 Unknown Rx ISOSORBIDE MONOnitrate [Imdur ER] 60 mg PO QDAY 90 Days #90 tab 11/26/21 Unknown Rx Sevelamer Carbonate [Renvela] 800 mg PO TIDWM 90 Days #270 tab 11/26/21 11/23/21 Unknown Rx amLODIPine 10 mg PO DAILY 90 Days #90 tab 11/26/21 Unknown Rx carvediloL [Coreg] 25 mg PO BID 90 Days #180 tab 11/26/21 Unknown Rx Atorvastatin Calcium [Lipitor] 80 mg PO QHS 90 Days #90 tab 11/27/21 Unknown Rx Active Medications: Generic Name Dose Route Start Last Admin Trade Name Freq PRN Reason Stop Dose Admin Acetaminophen 650 mg 12/11/21 22:11 Acetaminophen 325 Mg Tab PO Q6H PRN Pain, Mild (1-3) Albuterol 2.5 mg 12/11/21 22:14 Albuterol 2.5 Mg/3 Ml Nebu IH Q6HR PRN Wheezing Albuterol/Ipratropium 1 ampul 12/13/21 02:00 12/13/21 08:50 Ipratropium/Albuterol Sulfate 3 Ml Ampul.Neb IH 1 ampul Q6HRT KRISTA Administration Aspirin 81 mg 12/12/21 10:00 12/13/21 09:54 Aspirin 81 Mg Tab Chew PO 81 mg QDAY KRISTA Administration Atorvastatin Calcium 80 mg 12/12/21 22:00 12/12/21 21:55 Atorvastatin 40 Mg Tab PO 80 mg QHS KRISTA Administration Budesonide 0.5 mg 12/13/21 08:00 12/13/21 08:50 Budesonide 0.5 Mg/2 Ml Nebu IH 0.5 mg Q12HRT KRISTA Administration Calcium Acetate 1,334 mg 12/12/21 08:00 12/13/21 08:54 Calcium Acetate 667 Mg Cap PO 1,334 mg TID KRISTA Administration Dextrose 50 ml 12/11/21 22:23 Dextrose 50% In Water (25gm) 50 Ml Syringe IV Q30MIN PRN Hypoglycemia Protocol Famotidine 20 mg 12/12/21 10:00 12/13/21 09:54 Famotidine 20 Mg Tab PO 20 mg BID KRISTA Administration Sodium Chloride 100 mls @ 999 mls/hr 12/12/21 12:00 Nacl 0.9% IV ABEL PRN Hypotension Sodium Chloride 500 mls @ 50 mls/hr 12/12/21 17:00 12/12/21 17:41 Nacl 0.9% 500 Ml IV 50 mls/hr DIRECT KRISTA Administration Insulin Human Lispro 0 unit 12/12/21 07:30 12/13/21 09:55 Insulin Lispro 100 Unit/Ml SUB-Q Not Given ACHS KRISTA Protocol Morphine Sulfate 2 mg 12/11/21 22:11 Morphine 4 Mg/1 Ml Inj IV Q5MIN PRN Chest Pain unrelieved by NTG Nitroglycerin 0.4 mg 12/11/21 22:11 Nitroglycerin 0.4 Mg Tab Subl SL Q5M PRN Chest Pain Sevelamer Carbonate 800 mg 12/12/21 08:00 12/13/21 08:54 Sevelamer Carbonate 800 Mg Tab PO 800 mg TIDWM KRISTA Administration Sodium Chloride 10 ml 12/11/21 22:11 Sodium Chloride 0.9% 10 Ml Flush Syringe IV PRN PRN LINE FLUSH Tramadol HCl 50 mg 12/11/21 22:11 12/12/21 01:52 Tramadol 50 Mg Tab PO 50 mg Q6H PRN Administration Pain, Moderate (4-6)
[2021-12-13] MEDS: traMADol 50 MG TAB PO PRN (11:28)
[2021-12-13] MEDS: MIDODRINE 2.5 MG TAB PO SCH (17:40)
[2021-12-13] MEDS: ACETAMINOPHEN 325 MG TAB PO PRN ×2 (17:41→22:46)
[2021-12-13] MEDS ORDERED: SODIUM CHLORIDE 0.9% 250ML 250 ML IV ONE (18:14)
[2021-12-13] MEDS: SODIUM CHLORIDE 0.9% 500 ML 500 ML IV SCH (21:19)
[2021-12-13] MEDS: FAMOTIDINE 10 MG TAB PO SCH (21:20)
[2021-12-13] MEDS ORDERED: ACETAMINOPHEN 650 MG RECT SUPP PR PRN (23:00)
[2021-12-14] MEDS ORDERED: SODIUM CHLORIDE 0.9% 250ML 250 ML IV ONE ×2 (04:24→21:28)
[2021-12-14] MEDS: IPRATROPIUM/ALBUTEROL SULFATE 3 ML AMPUL.NEB IH SCH ×4 (05:17→20:32)
[2021-12-14] MEDS: BUDESONIDE 0.5 MG/2 ML NEBU IH SCH ×2 (07:37→20:32)
--- NOTE | 2021-12-14 08:54 | Progress Note ---
Assessment and Plan Assessment and plan: #History of hypertension #Hypotension -Lisinopril 20 mg p.o. twice daily Imdur 60 mg p.o. daily at home -Blood pressure medications currently held -Blood pressure responsive to fluid boluses -continue midodrine 5mg TID -will continue to monitor #SIRS #Fever #Tachycardia -patient with tachycardia and fever after HD -blood cultures ordered, RLE doppler ordered -no obvious source of infection at this time -will continue to monitor #NSTEMI -Troponin peak 0.187, could be secondary to ESRD -Continue aspirin 81 mg and Lipitor 80 mg p.o. daily -Echocardiogram 11/23: EF 35-40% -Plan for stress test on Wednesday -Cardiology consulted, assistance appreciated #Contusion of right lower extremity #Fall -Right lower extremity imaging negative for acute findings -doppler of R lower extremity ordered -Continue fall precautions -Physical therapy eval ordered -As needed pain medications #Pre-syncope -Echocardiogram ordered -Orthostatic vital signs -Given patient fluctuation in blood pressure, likely cause may be orthostatic hypotension -Cardiology consulted, assistance appreciated #heart failure with reduced ejection fraction -not in acute exacerbation TTE LVEF 35-40% -holding GDMT due to hypotension #Chronic hypoxic respiratory failure-stable -baseline oxygen requirements: 2 L -currently using 2L NC #History of CAD -continue ASA + statin #ESRD (end stage renal disease) on dialysis -Continue inpatient hemodialysis as blood pressure will allow -Nephrology consulted, assistance appreciated -Avoid nephrotoxins, renally dose medication #Normocytic anemia, chronic #Thrombocytopenia, chronic -will transfuse for hemoglobin less than 7 #Type 2 diabetes mellitus with diabetic chronic kidney disease #history of hypoglycemia -Lantus discontinued -will continue with sliding scale -Hypoglycemic protocol #Advanced care planning -Disease education conducted, care plan discussed, diagnoses discussed, prognosis discussed, and patient acknowledges understanding with care plan -Time: +30 min History Interval history: No acute events overnight. Patient refused medication overnight. She continues to have right leg pain. Did not participate in interview. Hospitalist Physical - Physical exam Narrative exam: GENERAL: Well-developed well-nourished. Sitting on the side of the bed in no acute distress. HEENT: 2LNC NECK: Supple. CHEST/LUNGS: CTAB on room air HEART/CARDIOVASCULAR: RRR. No murmur, rubs or gallops appreciated. ABDOMEN: +BS. NT/ND. SKIN: No rashes noted. NEURO: No focal motor deficit. Follows all commands. MUSCULOSKELETAL: Right hip tender to palpation. EXTREMITIES: Left upper extremity AV fistula with thrill. No cyanosis, clubbing or edema. PSYCH: Cooperative. - Constitutional Vitals: Temp Pulse Resp BP Pulse Ox 97.3 F L 67 18 98/37 100 12/14/21 08:19 12/14/21 08:19 12/14/21 08:19 12/14/21 08:19 12/14/21 08:19 General appearance: Present: no acute distress HEART Score - HEART Score Troponin: Troponin T 0.175 ng/mL (0.00-0.029) H* 12/12/21 04:43 Results - Labs CBC & Chem 7: 12/13/21 07:30 12/13/21 07:30 Labs: Laboratory Last Values WBC 6.7 K/mm3 (4.5-11.0) 12/13/21 07:30 RBC 3.66 M/mm3 (3.65-5.03) 12/13/21 07:30 Hgb 9.7 gm/dl (10.1-14.3) L 12/13/21 07:30 Hct 30.0 % (30.3-42.9) L 12/13/21 07:30 MCV 82 fl (79-97) 12/13/21 07:30 MCH 27 pg (28-32) L 12/13/21 07:30 MCHC 33 % (30-34) 12/13/21 07:30 RDW 18.0 % (13.2-15.2) H 12/13/21 07:30 Plt Count 99 K/mm3 (140-440) L 12/13/21 07:30 Lymph % (Auto) 4.8 % (13.4-35.0) L 12/13/21 07:30 [place] % (Auto) 6.9 % (0.0-7.3) 12/13/21 07:30 Eos % (Auto) 0.0 % (0.0-4.3) 12/13/21 07:30 Baso % (Auto) 0.1 % (0.0-1.8) 12/13/21 07:30 Lymph # (Auto) 0.3 K/mm3 (1.2-5.4) L 12/13/21 07:30 [place] # (Auto) 0.5 K/mm3 (0.0-0.8) 12/13/21 07:30 Eos # (Auto) 0.0 K/mm3 (0.0-0.4) 12/13/21 07:30 Baso # (Auto) 0.0 K/mm3 (0.0-0.1) 12/13/21 07:30 Seg Neutrophils % 88.2 % (40.0-70.0) H 12/13/21 07:30 Seg Neutrophils # 5.9 K/mm3 (1.8-7.7) 12/13/21 07:30 Sodium 139 mmol/L (137-145) 12/13/21 07:30 Potassium 5.1 mmol/L (3.6-5.0) H 12/13/21 07:30 Chloride 97.8 mmol/L (98-107) L 12/13/21 07:30 Carbon Dioxide 16 mmol/L (22-30) L 12/13/21 07:30 Anion Gap 30 mmol/L 12/13/21 07:30 BUN 92 mg/dL (7-17) H 12/13/21 07:30 Creatinine 10.6 mg/dL (0.6-1.2) H 12/13/21 07:30 Estimated GFR 4 ml/min 12/13/21 07:30 BUN/Creatinine Ratio 9 % 12/13/21 07:30 Glucose 121 mg/dL (65-100) H 12/13/21 07:30 POC Glucose 113 mg/dL (70-105) H 12/13/21 20:16 Calcium 7.6 mg/dL (8.4-10.2) L 12/13/21 07:30 Total Bilirubin 0.60 mg/dL (0.1-1.2) 12/11/21 15:40 AST 22 units/L (5-40) 12/11/21 15:40 ALT 13 units/L (7-56) 12/11/21 15:40 Alkaline Phosphatase 237 units/L (35-129) H 12/11/21 15:40 Troponin T 0.175 ng/mL (0.00-0.029) H* 12/12/21 04:43 Total Protein 7.4 g/dL (6.3-8.2) 12/11/21 15:40 Albumin 3.6 g/dL (3.9-5) L 12/11/21 15:40 Albumin/Globulin Ratio 0.9 % 12/11/21 15:40 Triglycerides 92 mg/dL (2-149) 12/11/21 15:40 Cholesterol 72 mg/dL (50-199) 12/11/21 15:40 LDL Cholesterol Direct 16 mg/dL (50-130) L 12/11/21 15:40 HDL Cholesterol 41 mg/dL (40-59) 12/11/21 15:40 Cholesterol/HDL Ratio 1.75 % 12/11/21 15:40 Microbiology: Microbiology 12/13/21 23:43 Peripheral/Venous Blood Culture - Preliminary Culture in Progress 12/13/21 23:47 Peripheral/Venous Blood Culture - Preliminary Culture in Progress Active Medications - Current Medications Current Medications: Generic Name Dose Route Start Last Admin Trade Name Freq PRN Reason Stop Dose Admin Acetaminophen 650 mg 12/11/21 22:11 12/13/21 17:41 Acetaminophen 325 Mg Tab PO 650 mg Q6H PRN Administration Pain, Mild (1-3) Acetaminophen 650 mg 12/13/21 23:00 12/13/21 23:18 Acetaminophen 650 Mg Rect Supp RI 650 mg Q4H PRN Administration Pain, Mild (1-3) Albuterol 2.5 mg 12/11/21 22:14 Albuterol 2.5 Mg/3 Ml Nebu IH Q6HR PRN Wheezing Albuterol/Ipratropium 1 ampul 12/14/21 08:00 12/14/21 07:37 Ipratropium/Albuterol Sulfate 3 Ml Ampul.Neb IH 1 ampul TIDRT KRISTA Administration Aspirin 81 mg 12/12/21 10:00 12/13/21 09:54 Aspirin 81 Mg Tab Chew PO 81 mg QDAY KRISTA Administration Atorvastatin Calcium 80 mg 12/12/21 22:00 12/13/21 21:20 Atorvastatin 40 Mg Tab PO Not Given QHS KRISTA Budesonide 0.5 mg 12/13/21 08:00 12/14/21 07:37 Budesonide 0.5 Mg/2 Ml Nebu IH 0.5 mg Q12HRT KRISTA Administration Calcium Acetate 1,334 mg 12/12/21 08:00 12/13/21 21:20 Calcium Acetate 667 Mg Cap PO Not Given TID KRISTA Dextrose 50 ml 12/11/21 22:23 Dextrose 50% In Water (25gm) 50 Ml Syringe IV Q30MIN PRN Hypoglycemia Protocol Famotidine 10 mg 12/13/21 22:00 12/13/21 21:20 Famotidine 10 Mg Tab PO Not Given BID KRISTA Sodium Chloride 100 mls @ 999 mls/hr 12/12/21 12:00 Nacl 0.9% IV ABEL PRN Hypotension Sodium Chloride 500 mls @ 50 mls/hr 12/12/21 17:00 12/13/21 21:19 Nacl 0.9% 500 Ml IV 50 mls/hr DIRECT KRISTA Administration Insulin Human Lispro 0 unit 12/12/21 07:30 12/13/21 21:17 Insulin Lispro 100 Unit/Ml SUB-Q Not Given ACHS [facility] Protocol Levetiracetam 500 mg 12/16/21 18:00 Levetiracetam 500 Mg Tab PO TuThSa [facility] Midodrine 5 mg 12/13/21 16:00 12/13/21 17:40 Midodrine 2.5 Mg Tab PO Not Given TID@0800,1200,1600 [facility] Morphine Sulfate 2 mg 12/11/21 22:11 Morphine 4 Mg/1 Ml Inj IV Q5MIN PRN Chest Pain unrelieved by NTG Nitroglycerin 0.4 mg 12/11/21 22:11 Nitroglycerin 0.4 Mg Tab Subl SL Q5M PRN Chest Pain Sevelamer Carbonate 800 mg 12/12/21 08:00 12/13/21 17:53 Sevelamer Carbonate 800 Mg Tab PO 800 mg TIDWM KRISTA Administration Sodium Chloride 10 ml 12/11/21 22:11 Sodium Chloride 0.9% 10 Ml Flush Syringe IV PRN PRN LINE FLUSH Tramadol HCl 50 mg 12/11/21 22:11 12/13/21 11:28 Tramadol 50 Mg Tab PO 50 mg Q6H PRN Administration Pain, Moderate (4-6) Nutrition/Malnutrition Assess - Dietary Evaluation Nutrition/Malnutrition Findings: Nutrition Notes Start: 12/12/21 11:57 Freq: Status: Active Protocol: Document 12/12/21 11:58 SERINA (Rec: 12/12/21 12:01 SERINA [id number]) Nutrition Notes Need for Assessment generated from: MD Order,Education Initial or Follow up Brief Note Current Diagnosis CKD (stage V CKD),Diabetes, Hypertension Other Pertinent Diagnosis s/p fall, (R) hip pain Current Diet Renal/Consistent CHO Weight Status Appropriate Subjective/Other Information RD consulted for diet education. Neither BP or BG elevated; lipid panel ok as well. Burn Absent Trauma Absent Minimum of two criteria No Nutrition Intervention Follow-Up By: 12/16/21 Additional Comments F/U: intakes
[2021-12-14] MEDS: SEVELAMER CARBONATE 800 MG TAB PO SCH ×3 (09:55→19:00)
[2021-12-14] MEDS: CALCIUM ACETATE 667 MG CAP PO SCH ×3 (09:55→21:22)
[2021-12-14] MEDS: FAMOTIDINE 10 MG TAB PO SCH ×2 (09:56→21:22)
[2021-12-14] MEDS: ASPIRIN 81 MG TAB CHEW PO SCH (09:56)
[2021-12-14] MEDS: INSULIN LISPRO 100 UNIT/ML SUB-Q SCH ×3 (09:57→23:25)
[2021-12-14] MEDS: traMADol 50 MG TAB PO PRN (09:58)
[2021-12-14] MEDS: MIDODRINE 2.5 MG TAB PO SCH ×3 (10:00→16:41)
--- NOTE | 2021-12-14 10:13 | Progress Note ---
Assessment and Plan Impression: * ESRD * s/p fall * hypotension * elevated troponin * type 2 DM * history of HTN Plan: * noted hypotension, has improved with hold some bp meds, apparently new * tolerated hd yesterday * plan for HD TTHSAT if hemodynamically stable * renal diet, fluid restriction * strict i/os and daily lytes * uf as tolerated with hd * cardiac workup, plans for stress testing noted Subjective Date of service: 12/14/21 Principal diagnosis: hypotension Interval history: resting in bed today events noted Objective - Exam Narrative Exam: - General Limitations: No Limitations General appearance: alert, in no apparent distress - Head Head exam: Present: atraumatic, normocephalic - Eye Eye exam: Present: PERRL, EOMI - ENT ENT exam: Present: mucous membranes moist, other (airway patent) - Neck Neck exam: Present: other (painless full ROM; non tender; unable to clear by N EXUS criteria 2/2 possible distracting injury) - Respiratory Respiratory exam: Present: other (good air entry, nml I:E, bibasilar crackles; no use of JIMENA) - Cardiovascular Cardiovascular Exam: Present: regular rate. Absent: rubs, gallop - GI/Abdominal GI/Abdominal exam: Present: soft, normal bowel sounds. Absent: tenderness, guarding - Extremities Exam Extremities exam: Present: other (1+ pretibial edema bilateraslly; R=L; tender to palpation in R hip and along R thigh and parker and in anterior R knee but no defomrity; otherwise, full ROM without deformity, ecchymosis, tenderness in all other extremities; pelvis stable) - Back Exam Back exam: Present: other (no step offs). Absent: vertebral tenderness - Neurological Exam Neurological exam: Present: alert, oriented X3, CN II-XII intact. Absent: motor sensory deficit - Skin Skin exam: Present: warm, normal color - Vital Signs Vital signs: Vital Signs - 12hr 12/13/21 12/14/21 12/14/21 23:18 00:35 05:13 Temperature Pulse Rate Respiratory 16 Rate Blood Pressure [Right] O2 Sat by Pulse 100 98 Oximetry 12/14/21 08:19 Temperature 97.3 F L Pulse Rate 67 Respiratory 18 Rate Blood Pressure 98/37 [Right] O2 Sat by Pulse 100 Oximetry - Lab 12/13/21 07:30 04/30/22 07:30 Most recent lab results Calcium 7.6 mg/dL (8.4-10.2) L 12/13/21 07:30 Medications & Allergies - Medications Allergies/Adverse Reactions: Allergies No Known Allergies Allergy (Verified 12/11/21 22:19) Home Medications: Home Medications Medication Instructions Recorded Confirmed Last Taken Type Albuterol Sulfate [Proair 2 puff IH Q6HR PRN 11/23/21 12/14/21 Unknown History Digihaler] Calcium Acetate 2 tab PO TID 11/23/21 12/14/21 Unknown History Fluticasone/Umeclidin/Vilanter 1 each IH DAILY 11/23/21 12/14/21 Unknown History [Treleallan Ellipta 100-62.5-25] Furosemide [Lasix TAB] 40 mg PO QDAY 11/23/21 12/14/21 Unknown History Insulin Aspart (Nf) [NovoLOG 55 unit SQ TID 11/23/21 12/14/21 Unknown History Flexpen] Insulin Glargine [Lantus VIAL] 25 units SQ QHS 11/23/21 12/14/21 Unknown History Omeprazole 20 mg PO DAILY 11/23/21 12/14/21 Unknown History Spironolactone [Aldactone] 100 mg PO QDAY 11/23/21 12/14/21 Unknown History lisinopriL [Lisinopril] 20 mg PO BID 11/23/21 12/14/21 12/06/21 History 500 MG Docusate Sodium [Colace CAP] 100 mg PO BID PRN #60 capsule 11/24/21 12/14/21 Unknown Rx Aspirin EC [Halfprin EC] 81 mg PO DAILY 90 Days #90 tablet 11/26/21 12/14/21 Unknown Rx Aspirin [Adult Aspirin] 81 mg PO DAILY 90 Days #90 tab 11/26/21 12/14/21 Unknown Rx ISOSORBIDE MONOnitrate [Imdur ER] 60 mg PO QDAY 90 Days #90 tab 11/26/21 12/14/21 Unknown Rx Sevelamer Carbonate [Renvela] 800 mg PO TIDWM 90 Days #270 tab 11/26/21 12/14/21 Unknown Rx amLODIPine 10 mg PO DAILY 90 Days #90 tab 11/26/21 12/14/21 Unknown Rx carvediloL [Coreg] 25 mg PO BID 90 Days #180 tab 11/26/21 12/14/21 Unknown Rx Atorvastatin Calcium [Lipitor] 80 mg PO QHS 90 Days #90 tab 11/27/21 12/14/21 Unknown Rx levETIRAcetam [Keppra TAB] 500 mg PO 3XW 12/14/21 12/14/21 12/06/21 History 500 MG Active Medications: Generic Name Dose Route Start Last Admin Trade Name Freq PRN Reason Stop Dose Admin Acetaminophen 650 mg 12/11/21 22:11 12/13/21 17:41 Acetaminophen 325 Mg Tab PO 650 mg Q6H PRN Administration Pain, Mild (1-3) Acetaminophen 650 mg 12/13/21 23:00 12/13/21 23:18 Acetaminophen 650 Mg Rect Supp [place] 650 mg Q4H PRN Administration Pain, Mild (1-3) Albuterol 2.5 mg 12/11/21 22:14 Albuterol 2.5 Mg/3 Ml Nebu IH Q6HR PRN Wheezing Albuterol/Ipratropium 1 ampul 12/14/21 08:00 12/14/21 07:37 Ipratropium/Albuterol Sulfate 3 Ml Ampul.Neb IH 1 ampul TIDRT KRISTA Administration Aspirin 81 mg 12/12/21 10:00 12/14/21 09:56 Aspirin 81 Mg Tab Chew PO 81 mg QDAY KRISTA Administration Atorvastatin Calcium 80 mg 12/12/21 22:00 12/13/21 21:20 Atorvastatin 40 Mg Tab PO Not Given QHS KRISTA Budesonide 0.5 mg 12/13/21 08:00 12/14/21 07:37 Budesonide 0.5 Mg/2 Ml Nebu IH 0.5 mg Q12HRT KRISTA Administration Calcium Acetate 1,334 mg 12/12/21 08:00 12/14/21 09:55 Calcium Acetate 667 Mg Cap PO 1,334 mg TID KRISTA Administration Dextrose 50 ml 12/11/21 22:23 Dextrose 50% In Water (25gm) 50 Ml Syringe IV Q30MIN PRN Hypoglycemia Protocol Famotidine 10 mg 12/13/21 22:00 12/14/21 09:56 Famotidine 10 Mg Tab PO 10 mg BID KRISTA Administration Sodium Chloride 100 mls @ 999 mls/hr 12/12/21 12:00 Nacl 0.9% IV ABEL PRN Hypotension Sodium Chloride 500 mls @ 50 mls/hr 12/12/21 17:00 12/13/21 21:19 Nacl 0.9% 500 Ml IV 50 mls/hr DIRECT [facility] Administration Insulin Human Lispro 0 unit 12/12/21 07:30 12/14/21 09:57 Insulin Lispro 100 Unit/Ml SUB-Q Not Given ACHS [facility] Protocol Levetiracetam 500 mg 12/16/21 18:00 Levetiracetam 500 Mg Tab PO TuThSa [facility] Midodrine 5 mg 12/13/21 16:00 12/14/21 10:00 Midodrine 2.5 Mg Tab PO 5 mg TID@0800,1200,1600 [facility] Administration Morphine Sulfate 2 mg 12/11/21 22:11 Morphine 4 Mg/1 Ml Inj IV Q5MIN PRN Chest Pain unrelieved by NTG Nitroglycerin 0.4 mg 12/11/21 22:11 Nitroglycerin 0.4 Mg Tab Subl SL Q5M PRN Chest Pain Sevelamer Carbonate 800 mg 12/12/21 08:00 12/14/21 09:55 Sevelamer Carbonate 800 Mg Tab PO 800 mg TIDWM KRISTA Administration Sodium Chloride 10 ml 12/11/21 22:11 Sodium Chloride 0.9% 10 Ml Flush Syringe IV PRN PRN LINE FLUSH Tramadol HCl 50 mg 12/11/21 22:11 12/14/21 09:58 Tramadol 50 Mg Tab PO 50 mg Q6H PRN Administration Pain, Moderate (4-6)
[2021-12-14 12:31] LABS: Basophils % (Auto) 0.1 % (0.0-1.8); Eosinophils # (Auto) 0.1 K/mm3 (0.0-0.4); Eosinophils % (Auto) 1.3 % (0.0-4.3); Hematocrit 30.6 % (30.3-42.9); Hemoglobin 9.9 gm/dl (10.1-14.3); Lymphocytes # (Auto) 0.4 K/mm3 (1.2-5.4); Lymphocytes % (Auto) 5.8 % (13.4-35.0); Mean Corpuscular HGB Conc 32 % (30-34); Mean Corpuscular Volume 82 fl (79-97); Monocytes # (Auto) 0.3 K/mm3 (0.0-0.8); Monocytes % (Auto) 4.5 % (0.0-7.3); Red Blood Count 3.73 M/mm3 (3.65-5.03); Red Cell Distribution Width 18.1 % (13.2-15.2)
[2021-12-14 12:42] LABS: Platelet Count 82 K/mm3 (140-440)
[2021-12-14 12:52] LABS: Calcium 8.6 mg/dL (8.4-10.2)
[2021-12-14] MEDS: NORepinephrine/NS 8 MG-250 ML 8 MG/250 ML INFUS..BTL IV SCH (23:16)
[2021-12-15] MEDS: traMADol 50 MG TAB PO PRN (02:38)
[2021-12-15 05:19] LABS: Hemoglobin 9.9 gm/dl (10.1-14.3); Mean Corpuscular HGB Conc 33 % (30-34); Mean Corpuscular Volume 81 fl (79-97); Red Blood Count 3.73 M/mm3 (3.65-5.03); Red Cell Distribution Width 18.4 % (13.2-15.2)
[2021-12-15 05:21] LABS: Platelet Count 57 K/mm3 (140-440)
[2021-12-15 05:33] LABS: Calcium 8.1 mg/dL (8.4-10.2)
[2021-12-15 06:19] LABS: Anisocytosis 1+; Band Neutrophils # (Manual) 1.2 K/mm3; Basophils % (Manual) 0 % (0.0-1.8); Eosinophils % (Manual) 0 % (0.0-4.3); Large Platelets Few; Myelocytes # (Manual) 0.1 K/mm3; Total Cells Counted 100
[2021-12-15 06:20] LABS: Hypochromasia 2+; Platelet Estimate Consistent w Auto
[2021-12-15] MEDS ORDERED: VANCOMYCIN/NS 1 GM/250 ML 1 GM/250 ML BAG IV ONE (07:45)
[2021-12-15] MEDS ORDERED: VANCOMYCIN PHARMACY TO DOSE IV SCH (08:00)
[2021-12-15] MEDS: IPRATROPIUM/ALBUTEROL SULFATE 3 ML AMPUL.NEB IH SCH ×3 (08:15→20:16)
[2021-12-15] MEDS: BUDESONIDE 0.5 MG/2 ML NEBU IH SCH ×2 (08:15→20:15)
[2021-12-15] MEDS: MIDODRINE 2.5 MG TAB PO SCH (08:48)
[2021-12-15] MEDS: INSULIN LISPRO 100 UNIT/ML SUB-Q SCH ×3 (08:59→23:40)
[2021-12-15] MEDS ORDERED: VANCOMYCIN 1,250 MG in SODIUM CHLORIDE 0.9% 250ML 250 ML IV SCH (09:00)
--- NOTE | 2021-12-15 09:00 | Progress Note ---
Assessment and Plan Impression: * ESRD * s/p fall * hypotension * elevated troponin * type 2 DM * history of HTN * GPC bacteremia Plan: * note soft BPs, hold antihypertensives * tolerated hd 12/13 * plan for HD TTHSAT if hemodynamically stable * renal diet, fluid restriction * strict i/os and daily lytes * uf as tolerated with hd * cardiac workup, plans for stress testing noted * note bacteremia- has permcath and AVF, unclear if AVF is working. Will remove permcath for now, consult IR, if unable to use AVF will need temp vascath while bacteremic Subjective Date of service: 12/15/21 Principal diagnosis: hypotension Interval history: Remains altered Objective - Exam Narrative Exam: Constitutional: mild acute distress Head: NC/AT Neck: supple Lungs: clear to auscultation CV: RRR, no M/R/G Abdomen: soft, non-tender, bowel sounds present Back: nontender Extremities: no edema, pulses WNL Skin: intact Neuro: altered - Vital Signs Vital signs: Vital Signs - 12hr 12/14/21 12/14/21 12/14/21 21:35 22:05 22:15 Temperature Pulse Rate 80 69 Pulse Rate [ Anterior Bilateral Throughout] Respiratory 17 19 Rate Respiratory Rate [Anterior Bilateral Throughout] Respiratory Rate [Right Hip ] Blood Pressure Blood Pressure 76/42 78/39 [Right] O2 Sat by Pulse 98 89 96 Oximetry 12/14/21 12/14/21 12/14/21 22:30 22:40 23:03 Temperature Pulse Rate 84 91 H 88 Pulse Rate [ Anterior Bilateral Throughout] Respiratory 18 19 9 L Rate Respiratory Rate [Anterior Bilateral Throughout] Respiratory Rate [Right Hip ] Blood Pressure Blood Pressure 73/39 72/39 [Right] O2 Sat by Pulse 99 99 Oximetry 12/14/21 12/14/21 12/14/21 23:11 23:21 23:25 Temperature Pulse Rate 86 79 85 Pulse Rate [ Anterior Bilateral Throughout] Respiratory 11 L 11 L Rate Respiratory Rate [Anterior Bilateral Throughout] Respiratory Rate [Right Hip ] Blood Pressure Blood Pressure [Right] O2 Sat by Pulse 92 95 Oximetry 12/14/21 12/14/21 12/14/21 23:31 23:41 23:51 Temperature Pulse Rate 83 85 85 Pulse Rate [ Anterior Bilateral Throughout] Respiratory 12 14 14 Rate Respiratory Rate [Anterior Bilateral Throughout] Respiratory Rate [Right Hip ] Blood Pressure 120/42 120/42 118/39 Blood Pressure [Right] O2 Sat by Pulse 97 98 98 Oximetry 12/15/21 12/15/21 12/15/21 00:00 00:11 00:20 Temperature 99.5 F Pulse Rate 84 85 83 Pulse Rate [ Anterior Bilateral Throughout] Respiratory 10 L 14 Rate Respiratory Rate [Anterior Bilateral Throughout] Respiratory Rate [Right Hip ] Blood Pressure 122/44 122/44 Blood Pressure [Right] O2 Sat by Pulse 98 97 Oximetry 12/15/21 12/15/21 12/15/21 00:21 00:25 00:30 Temperature Pulse Rate 86 84 Pulse Rate [ Anterior Bilateral Throughout] Respiratory 11 L 17 11 L Rate Respiratory Rate [Anterior Bilateral Throughout] Respiratory Rate [Right Hip ] Blood Pressure 145/43 119/44 Blood Pressure [Right] O2 Sat by Pulse 93 100 97 Oximetry 12/15/21 12/15/21 12/15/21 00:41 00:51 01:00 Temperature Pulse Rate 84 84 84 Pulse Rate [ Anterior Bilateral Throughout] Respiratory 12 12 11 L Rate Respiratory Rate [Anterior Bilateral Throughout] Respiratory Rate [Right Hip ] Blood Pressure 119/44 109/43 127/40 Blood Pressure [Right] O2 Sat by Pulse 99 99 98 Oximetry 12/15/21 12/15/21 12/15/21 01:11 01:15 01:21 Temperature Pulse Rate 83 84 Pulse Rate [ Anterior Bilateral Throughout] Respiratory 14 10 L Rate Respiratory Rate [Anterior Bilateral Throughout] Respiratory 14 Rate [Right Hip ] Blood Pressure 127/40 108/43 Blood Pressure [Right] O2 Sat by Pulse 99 100 Oximetry 12/15/21 12/15/21 12/15/21 01:30 01:41 01:51 Temperature Pulse Rate 84 83 82 Pulse Rate [ Anterior Bilateral Throughout] Respiratory 12 9 L 13 Rate Respiratory Rate [Anterior Bilateral Throughout] Respiratory Rate [Right Hip ] Blood Pressure 114/39 114/39 121/39 Blood Pressure [Right] O2 Sat by Pulse 99 100 99 Oximetry 12/15/21 12/15/21 12/15/21 02:00 02:11 02:20 Temperature Pulse Rate 83 83 83 Pulse Rate [ Anterior Bilateral Throughout] Respiratory 12 11 L Rate Respiratory Rate [Anterior Bilateral Throughout] Respiratory Rate [Right Hip ] Blood Pressure 118/40 118/40 Blood Pressure [Right] O2 Sat by Pulse 97 99 100 Oximetry 12/15/21 12/15/21 12/15/21 02:21 02:30 02:38 Temperature Pulse Rate 84 84 Pulse Rate [ Anterior Bilateral Throughout] Respiratory 13 11 L 16 Rate Respiratory Rate [Anterior Bilateral Throughout] Respiratory Rate [Right Hip ] Blood Pressure 119/41 113/43 Blood Pressure [Right] O2 Sat by Pulse 87 90 Oximetry 12/15/21 12/15/21 12/15/21 02:41 02:51 03:01 Temperature Pulse Rate 82 78 82 Pulse Rate [ Anterior Bilateral Throughout] Respiratory 19 11 L 16 Rate Respiratory Rate [Anterior Bilateral Throughout] Respiratory Rate [Right Hip ] Blood Pressure 113/43 100/41 110/38 Blood Pressure [Right] O2 Sat by Pulse 96 98 98 Oximetry 12/15/21 12/15/21 12/15/21 03:11 03:38 05:50 Temperature 100.2 F H Pulse Rate 81 Pulse Rate [ Anterior Bilateral Throughout] Respiratory 13 21 Rate Respiratory Rate [Anterior Bilateral Throughout] Respiratory Rate [Right Hip ] Blood Pressure 110/38 Blood Pressure [Right] O2 Sat by Pulse 100 100 Oximetry 12/15/21 12/15/21 12/15/21 07:00 07:11 07:21 Temperature Pulse Rate 82 81 80 Pulse Rate [ Anterior Bilateral Throughout] Respiratory 15 13 11 L Rate Respiratory Rate [Anterior Bilateral Throughout] Respiratory Rate [Right Hip ] Blood Pressure 115/46 120/53 114/46 Blood Pressure [Right] O2 Sat by Pulse 95 91 96 Oximetry 12/15/21 12/15/21 12/15/21 07:23 07:30 07:41 Temperature 99.5 F Pulse Rate 84 77 Pulse Rate [ Anterior Bilateral Throughout] Respiratory 17 17 Rate Respiratory Rate [Anterior Bilateral Throughout] Respiratory Rate [Right Hip ] Blood Pressure 111/43 111/43 Blood Pressure [Right] O2 Sat by Pulse 95 92 Oximetry 12/15/21 12/15/21 12/15/21 07:51 08:00 08:12 Temperature 99.5 F Pulse Rate 83 81 Pulse Rate [ Anterior Bilateral Throughout] Respiratory 12 13 Rate Respiratory Rate [Anterior Bilateral Throughout] Respiratory Rate [Right Hip ] Blood Pressure 112/37 104/42 Blood Pressure [Right] O2 Sat by Pulse 98 96 Oximetry 12/15/21 12/15/21 08:14 08:15 Temperature Pulse Rate Pulse Rate [ 77 Anterior Bilateral Throughout] Respiratory Rate Respiratory 16 Rate [Anterior Bilateral Throughout] Respiratory Rate [Right Hip ] Blood Pressure Blood Pressure [Right] O2 Sat by Pulse 97 Oximetry - Lab 12/15/21 04:11 12/15/21 04:11 Most recent lab results Calcium 8.1 mg/dL (8.4-10.2) L 12/15/21 04:11 Medications & Allergies - Medications Allergies/Adverse Reactions: Allergies No Known Allergies Allergy (Verified 12/11/21 22:19) Home Medications: Home Medications Medication Instructions Recorded Confirmed Last Taken Type Albuterol Sulfate [Proair 2 puff IH Q6HR PRN 11/23/21 12/14/21 Unknown History Digihaler] Calcium Acetate 2 tab PO TID 11/23/21 12/14/21 Unknown History Fluticasone/Umeclidin/Vilanter 1 each IH DAILY 11/23/21 12/14/21 Unknown History [Trelegy Ellipta 100-62.5-25] Furosemide [Lasix TAB] 40 mg PO QDAY 11/23/21 12/14/21 Unknown History Insulin Aspart (Nf) [NovoLOG 55 unit SQ TID 11/23/21 12/14/21 Unknown History Flexpen] Insulin Glargine [Lantus VIAL] 25 units SQ QHS 11/23/21 12/14/21 Unknown History Omeprazole 20 mg PO DAILY 11/23/21 12/14/21 Unknown History Spironolactone [Aldactone] 100 mg PO QDAY 11/23/21 12/14/21 Unknown History lisinopriL [Lisinopril] 20 mg PO BID 11/23/21 12/14/21 12/06/21 History 500 MG Docusate Sodium [Colace CAP] 100 mg PO BID PRN #60 capsule 11/24/21 12/14/21 Unknown Rx Aspirin EC [Halfprin EC] 81 mg PO DAILY 90 Days #90 tablet 11/26/21 12/14/21 Unknown Rx Aspirin [Adult Aspirin] 81 mg PO DAILY 90 Days #90 tab 11/26/21 12/14/21 Unknown Rx ISOSORBIDE MONOnitrate [Imdur ER] 60 mg PO QDAY 90 Days #90 tab 11/26/21 12/14/21 Unknown Rx Sevelamer Carbonate [Renvela] 800 mg PO TIDWM 90 Days #270 tab 11/26/21 12/14/21 Unknown Rx amLODIPine 10 mg PO DAILY 90 Days #90 tab 11/26/21 12/14/21 Unknown Rx carvediloL [Coreg] 25 mg PO BID 90 Days #180 tab 11/26/21 12/14/21 Unknown Rx Atorvastatin Calcium [Lipitor] 80 mg PO QHS 90 Days #90 tab 11/27/21 12/14/21 Unknown Rx levETIRAcetam [Keppra TAB] 500 mg PO 3XW 12/14/21 12/14/21 12/06/21 History 500 MG Active Medications: Generic Name Dose Route Start Last Admin Trade Name Freq PRN Reason Stop Dose Admin Acetaminophen 650 mg 12/13/21 23:00 12/13/21 23:18 Acetaminophen 650 Mg Rect Supp [place] 650 mg Q4H PRN Administration Pain, Mild (1-3) Albuterol 2.5 mg 12/11/21 22:14 Albuterol 2.5 Mg/3 Ml Nebu IH Q6HR PRN Wheezing Albuterol/Ipratropium 1 ampul 12/14/21 08:00 12/15/21 08:15 Ipratropium/Albuterol Sulfate 3 Ml Ampul.Neb IH 1 ampul TIDRT KRISTA Administration Aspirin 81 mg 12/12/21 10:00 12/14/21 09:56 Aspirin 81 Mg Tab Chew PO 81 mg QDAY KRISTA Administration Atorvastatin Calcium 80 mg 12/12/21 22:00 12/14/21 21:22 Atorvastatin 40 Mg Tab PO Not Given QHS KRISTA Budesonide 0.5 mg 12/13/21 08:00 12/15/21 08:15 Budesonide 0.5 Mg/2 Ml Nebu IH 0.5 mg Q12HRT KRISTA Administration Calcium Acetate 1,334 mg 12/12/21 08:00 12/14/21 21:22 Calcium Acetate 667 Mg Cap PO Not Given TID KRISTA Dextrose 50 ml 12/11/21 22:23 Dextrose 50% In Water (25gm) 50 Ml Syringe IV Q30MIN PRN Hypoglycemia Protocol Famotidine 10 mg 12/13/21 22:00 12/14/21 21:22 Famotidine 10 Mg Tab PO Not Given BID KRISTA Sodium Chloride 100 mls @ 999 mls/hr 12/12/21 12:00 Nacl 0.9% IV ABEL PRN Hypotension Sodium Chloride 500 mls @ 50 mls/hr 12/12/21 17:00 12/13/21 21:19 Nacl 0.9% 500 Ml IV 50 mls/hr DIRECT KRISTA Administration NORepinephrine/NS 8 MG-250 ML 8 mg in 250 mls @ 3.75 mls/hr 12/14/21 23:00 12/15/21 08:15 Norepinephrine/Ns 8 Mg-250 Ml (Double Conc) IV 2 mcg/min TITRATE KRISTA 3.75 mls/hr Titration Protocol 2 MCG/MIN Vancomycin HCl 1,250 mg/ 275 mls @ 166.667 mls/hr 12/15/21 09:00 Sodium Chloride IV 12/15/21 13:00 ONCE@0900 [facility] Insulin Human Lispro 0 unit 12/12/21 07:30 12/15/21 08:59 Insulin Lispro 100 Unit/Ml SUB-Q Not Given ACHS [facility] Protocol Levetiracetam 500 mg 12/16/21 18:00 Levetiracetam 500 Mg Tab PO TuThSa [facility] Midodrine 5 mg 12/13/21 16:00 12/15/21 08:48 Midodrine 2.5 Mg Tab PO 5 mg TID@0800,1200,1600 [facility] Administration Morphine Sulfate 2 mg 12/11/21 22:11 Morphine 4 Mg/1 Ml Inj IV Q5MIN PRN Chest Pain unrelieved by NTG Nitroglycerin 0.4 mg 12/11/21 22:11 Nitroglycerin 0.4 Mg Tab Subl SL Q5M PRN Chest Pain Sevelamer Carbonate 800 mg 12/12/21 08:00 12/14/21 19:00 Sevelamer Carbonate 800 Mg Tab PO Not Given TIDWM [facility] Sodium Chloride 10 ml 12/11/21 22:11 Sodium Chloride 0.9% 10 Ml Flush Syringe IV PRN PRN LINE FLUSH Tramadol HCl 50 mg 12/11/21 22:11 12/15/21 02:38 Tramadol 50 Mg Tab PO 50 mg Q6H PRN Administration Pain, Moderate (4-6)
--- NOTE | 2021-12-15 09:48 | Progress Note ---
Assessment and Plan Assessment and plan: This is a 66-year-old female with known past medical history of ESRD on HD, HTN, heart-attack, and GERD initially admitted to the floor s/p fall at home. Patient was transferred to the ICU this for septic shock requiring vasopressor. ICU Course to Date: 12/15: Transferred to ICU for hypotension s/p Levophed gtt, most likely septic shock. Off pressors this am, MAP in the low 60s this am, midodrine increased. Blood cultures with / GPC bacteremia, right upper chest permacath suspected source. Vancomycin initiated and ID was consulted. LUE AVF also noted, d/w Nephrology- unclear if AVF is still functional. Plan for IR consult for Permacath removal, if AVF is not working patient will need a Temporary VasCath access for HD. Patient is also encephalopathic this am most likely due to sepsis, reorientated as needed. Continue current IV Abx, will also repeat 2D echo to r/o vegetation and repeat blood cultures in the am. RUE swelling and pain also noted, orders placed for RUE XR and RUE doppler. Assessment and Plan #Septic Shock 09/17 #GPC Bacteremia - Suspected source right upper chest Permacath - Transferref to ICU for hypotension s/p 500cc IVF bolus and Levophed gtt - Recent Blood cultures + GPC in chains in / bottles - Fevers improved, no leukocytosis - Patient BP remains borderline this am - Midodrine increased - IV Abx- Vancomycin initial, pharmacy consulted for renal dosing - ID consulted - Repeat Blood cultures in the am - Repeat Echo to r/o vegetation - Continue blood pressure monitor per protocol - Maintain MAP above 65 - Continue to hold antihypertensive therapy due to hypotension #Heart Failure with Reduced Ejection Fraction #NSTEMI #H/o Hypertension #History of CAD - Troponin peak 0.187, could be secondary to ESRD - Now hypotensive, most likely due to severe sepsis - Continue to hold antihypertensive therapy due to hypotension - Midodrine increased - Cardiology consulted, assistance appreciated - Echocardiogram 11/23: EF 35-40% - Continue aspirin 81 mg and Lipitor 80 mg p.o. daily - Continue blood pressure monitor per protocol - Maintain MAP above 65 - Strick I&Os and daily weight #Acute Metabolic Encephalopathy - most likely due to severe sepsis - CT head with no acute intracranial process - Awake, moving all extremities but confused - Continue current IV abx - Frequent reorientation - Avoid benzodiazepine to reduce the possibility of delirium - Prn analgesia for pain management - Maintenance of sleep-wake cycle #Chronic Hypoxic Respiratory Failure - most likely due to fluid overload - Low SPO2 in the low 80s this am on 3L NC - Now on 40% Venturi Mask, SPO2 above 95 - HD per Nephro - Continue O2 supplementation and wean as tolerated - Continue SPO2 monitoring for SPO2 goal above 92% - CCM consulted, appreciate recommendations #ESRD (End Stage Renal Disease) on HD - Nephrology on consult, appreciated recommendation - Right upper chest permacath and LUE AVF noted - Unclear if AVF is function, permacath most likely source of bacteria - D/w Nephro plan for IR consult for permacath removal, if AVF is not working patient will need a Temporary VasCath access for HD - Continue HD per Nephro - Strict intake and output - Avoid nephrotoxic medications; Renally dose medications - Monitor and replace electrolytes as needed #S/p Fall at home #Contusion of right lower extremity #RUE Pain and Swelling - Imagings with no evidence of fractures or any acute findings - Now with RUE pain and swellin - Orders placed for RUE XR and RUE doppler - Continue fall precautions - Physical therapy eval ordered - PRN analgesia for pain management #Normocytic Anemia, chronic #Thrombocytopenia, chronic - H&H is stable - Platelet count continue to drop - Continue to hold AC for now - Continue to trend H&H and plt - Monitor for s/s of any active bleeding - Transfuse for hemoglobin less than 7 #Hypoglycemia #Type 2 Diabetes Mellitus - Probably due to low PO intake - Lantus discontinued, continue BG check and SSI - Continue Hypoglycemic Protocol - Avoid Hypoglycemia - DHT inserted, enteral nutrition initiated - Nutrition consulted #GI/DVT Prophylaxis - PPI- Pepcid - SCDs to bilateral lower extremities while in bed The high probability of a clinically significant, sudden or life threatening deterioration of the [multiple] system(s) required my full and direct attention, intervention and personal management. The aggregate critical care time was [60] minutes. This time is in addition to time spent performing reported procedures but includes the following: [x] Data Review and interpretation [x] Patient assessment and monitoring of vital signs [x] Documentation [x] Medication orders and management Disposition Plan: ICU Total Time Spent with Patient (Minutes): 60 History Interval history: Patient seen and examined at the bedside. Awake but confused, not following commands, only moaning and yelling with pain when RUE is touched or moved. Patient desated in the low 80s this am, now on 40% Venti mask, SPO2 at 95%. Patient is off pressors this am Hospitalist Physical - Constitutional Vitals: Temp Pulse Resp BP Pulse Ox 99.5 F 77 16 104/42 97 12/15/21 08:12 12/15/21 08:15 12/15/21 08:15 12/15/21 08:00 12/15/21 08:14 General appearance: Present: mild distress, other (Awake but confused, not following commands) - EENT Eyes: Present: PERRL ENT: hearing intact - Neck Neck: Present: normal ROM - Respiratory Respiratory effort: normal Respiratory: bilateral: diminished - Cardiovascular Rhythm: regular Heart Sounds: Present: S1 & S2 - Extremities Extremities: no ischemia, pulses intact, pulses symmetrical, abnormal (RUE swelling and pain) Extremity abnormal: edema - Peripheral Assessment Right Upper Extremity Edema Type: Non-pitting Edema Degree: 3+ Capillary Refill: < 3 seconds Skin Temperature: Warm Peripheral Pulses: within normal limits - Abdominal General gastrointestinal: soft, non-distended, normal bowel sounds - Integumentary Integumentary: Present: clear, warm, dry - Psychiatric Psychiatric: other (Awake but confused, not following commands) - Neurologic Neurologic: moves all extremities (limitted movement in RUE due to pain and swelling), other (Awake but confused, not following commands) - Allied Health Allied health notes reviewed: nursing HEART Score - HEART Score Troponin: Troponin T 0.175 ng/mL (0.00-0.029) H* 12/12/21 04:43 Results - Labs CBC & Chem 7: 12/15/21 04:11 12/15/21 04:11 Labs: Laboratory Last Values WBC 6.6 K/mm3 (4.5-11.0) 12/15/21 04:11 RBC 3.73 M/mm3 (3.65-5.03) 12/15/21 04:11 Hgb 9.9 gm/dl (10.1-14.3) L 12/15/21 04:11 Hct 30.0 % (30.3-42.9) L 12/15/21 04:11 MCV 81 fl (79-97) 12/15/21 04:11 MCH 27 pg (28-32) L 12/15/21 04:11 MCHC 33 % (30-34) 12/15/21 04:11 RDW 18.4 % (13.2-15.2) H 12/15/21 04:11 Plt Count 57 K/mm3 (140-440) L 12/15/21 04:11 Lymph % (Auto) 5.8 % (13.4-35.0) L 12/14/21 11:10 [place] % (Auto) 4.5 % (0.0-7.3) 12/14/21 11:10 Eos % (Auto) 1.3 % (0.0-4.3) 12/14/21 11:10 Baso % (Auto) 0.1 % (0.0-1.8) 12/14/21 11:10 Lymph # (Auto) 0.4 K/mm3 (1.2-5.4) L 12/14/21 11:10 [place] # (Auto) 0.3 K/mm3 (0.0-0.8) 12/14/21 11:10 Eos # (Auto) 0.1 K/mm3 (0.0-0.4) 12/14/21 11:10 Baso # (Auto) 0.0 K/mm3 (0.0-0.1) 12/14/21 11:10 Add Manual Diff Complete 12/15/21 04:11 Total Counted 100 12/15/21 04:11 Seg Neutrophils % 88.3 % (40.0-70.0) H 12/14/21 11:10 Seg Neuts % (Manual) 58.0 % (40.0-70.0) 12/15/21 04:11 Band Neutrophils % 18.0 % 12/15/21 04:11 Lymphocytes % (Manual) 9.0 % (13.4-35.0) L 12/15/21 04:11 Reactive Lymphs % (Man) 0 % 12/15/21 04:11 Monocytes % (Manual) 10.0 % (0.0-7.3) H 12/15/21 04:11 Eosinophils % (Manual) 0 % (0.0-4.3) 12/15/21 04:11 Basophils % (Manual) 0 % (0.0-1.8) 12/15/21 04:11 Metamyelocytes % 3.0 % 12/15/21 04:11 Myelocytes % 2.0 % 12/15/21 04:11 Promyelocytes % 0 % 12/15/21 04:11 Blast Cells % 0 % 12/15/21 04:11 Nucleated RBC % Not Reportable 12/15/21 04:11 Seg Neutrophils # 6.5 K/mm3 (1.8-7.7) 12/14/21 11:10 Seg Neutrophils # Man 3.8 K/mm3 (1.8-7.7) 12/15/21 04:11 Band Neutrophils # 1.2 K/mm3 12/15/21 04:11 Lymphocytes # (Manual) 0.6 K/mm3 (1.2-5.4) L 12/15/21 04:11 Abs React Lymphs (Man) 0.0 K/mm3 12/15/21 04:11 Monocytes # (Manual) 0.7 K/mm3 (0.0-0.8) 12/15/21 04:11 Eosinophils # (Manual) 0.0 K/mm3 (0.0-0.4) 12/15/21 04:11 Basophils # (Manual) 0.0 K/mm3 (0.0-0.1) 12/15/21 04:11 Metamyelocytes # 0.2 K/mm3 12/15/21 04:11 Myelocytes # 0.1 K/mm3 12/15/21 04:11 Promyelocytes # 0.0 K/mm3 12/15/21 04:11 Blast Cells # 0.0 K/mm3 12/15/21 04:11 WBC Morphology Not Reportable 12/15/21 04:11 Hypersegmented Neuts Not Reportable 12/15/21 04:11 Hyposegmented Neuts Not Reportable 12/15/21 04:11 Hypogranular Neuts Not Reportable 12/15/21 04:11 Smudge Cells Not Reportable 12/15/21 04:11 Toxic Granulation Not Reportable 12/15/21 04:11 Toxic Vacuolation Not Reportable 12/15/21 04:11 Dohle Bodies Not Reportable 12/15/21 04:11 Pelger-Huet Anomaly Not Reportable 12/15/21 04:11 Charles Rods Not Reportable 12/15/21 04:11 Platelet Estimate Consistent w auto 12/15/21 04:11 Clumped Platelets Not Reportable 12/15/21 04:11 Plt Clumps, EDTA Not Reportable 12/15/21 04:11 Large Platelets Few 12/15/21 04:11 Giant Platelets Not Reportable 12/15/21 04:11 Platelet Satelliting Not Reportable 12/15/21 04:11 Plt Morphology Comment Not Reportable 12/15/21 04:11 RBC Morphology Not Reportable 12/15/21 04:11 Dimorphic RBCs Not Reportable 12/15/21 04:11 Polychromasia Not Reportable 12/15/21 04:11 Hypochromasia 2+ 12/15/21 04:11 Poikilocytosis Not Reportable 12/15/21 04:11 Anisocytosis 1+ 12/15/21 04:11 Microcytosis 1+ 12/15/21 04:11 Macrocytosis Not Reportable 12/15/21 04:11 Spherocytes Not Reportable 12/15/21 04:11 Pappenheimer Bodies Not Reportable 12/15/21 04:11 Sickle Cells Not Reportable 12/15/21 04:11 Target Cells Not Reportable 12/15/21 04:11 Tear Drop Cells Not Reportable 12/15/21 04:11 Ovalocytes Not Reportable 12/15/21 04:11 Helmet Cells Not Reportable 12/15/21 04:11 [place] Bodies Not Reportable 12/15/21 04:11 [place] Rings Not Reportable 12/15/21 04:11 [place] Cells Not Reportable 12/15/21 04:11 Bite Cells Not Reportable 12/15/21 04:11 Crenated Cell Not Reportable 12/15/21 04:11 Elliptocytes Not Reportable 12/15/21 04:11 Acanthocytes (Spur) Not Reportable 12/15/21 04:11 Rouleaux Not Reportable 12/15/21 04:11 Hemoglobin C Crystals Not Reportable 12/15/21 04:11 Schistocytes Not Reportable 12/15/21 04:11 Malaria parasites Not Reportable 12/15/21 04:11 Bryson Bodies Not Reportable 12/15/21 04:11 Hem Pathologist Commnt No 12/15/21 04:11 Sodium 139 mmol/L (137-145) 12/15/21 04:11 Potassium 4.4 mmol/L (3.6-5.0) 12/15/21 04:11 Chloride 98.7 mmol/L (98-107) 12/15/21 04:11 Carbon Dioxide 19 mmol/L (22-30) L 12/15/21 04:11 Anion Gap 26 mmol/L 12/15/21 04:11 BUN 68 mg/dL (7-17) H 12/15/21 04:11 Creatinine 7.6 mg/dL (0.6-1.2) H 12/15/21 04:11 Estimated GFR 7 ml/min 12/15/21 04:11 BUN/Creatinine Ratio 9 % 12/15/21 04:11 Glucose 77 mg/dL (65-100) 12/15/21 04:11 POC Glucose 68 mg/dL (70-105) L 12/15/21 08:48 Calcium 8.1 mg/dL (8.4-10.2) L 12/15/21 04:11 Total Bilirubin 0.60 mg/dL (0.1-1.2) 12/11/21 15:40 AST 22 units/L (5-40) 12/11/21 15:40 ALT 13 units/L (7-56) 12/11/21 15:40 Alkaline Phosphatase 237 units/L (35-129) H 12/11/21 15:40 Troponin T 0.175 ng/mL (0.00-0.029) H* 12/12/21 04:43 Total Protein 7.4 g/dL (6.3-8.2) 12/11/21 15:40 Albumin 3.6 g/dL (3.9-5) L 12/11/21 15:40 Albumin/Globulin Ratio 0.9 % 12/11/21 15:40 Triglycerides 92 mg/dL (2-149) 12/11/21 15:40 Cholesterol 72 mg/dL (50-199) 12/11/21 15:40 LDL Cholesterol Direct 16 mg/dL (50-130) L 12/11/21 15:40 HDL Cholesterol 41 mg/dL (40-59) 12/11/21 15:40 Cholesterol/HDL Ratio 1.75 % 12/11/21 15:40 Microbiology: Microbiology 12/13/21 23:43 Peripheral/Venous Blood Culture - Preliminary 12/13/21 23:47 Peripheral/Venous Blood Culture - Preliminary Active Medications - Current Medications Current Medications: Generic Name Dose Route Start Last Admin Trade Name Freq PRN Reason Stop Dose Admin Acetaminophen 650 mg 12/13/21 23:00 12/13/21 23:18 Acetaminophen 650 Mg Rect Supp DC 650 mg Q4H PRN Administration Pain, Mild (1-3) Albuterol 2.5 mg 12/11/21 22:14 Albuterol 2.5 Mg/3 Ml Nebu IH Q6HR PRN Wheezing Albuterol/Ipratropium 1 ampul 12/14/21 08:00 12/15/21 08:15 Ipratropium/Albuterol Sulfate 3 Ml Ampul.Neb IH 1 ampul TIDRT KRISTA Administration Aspirin 81 mg 12/12/21 10:00 12/14/21 09:56 Aspirin 81 Mg Tab Chew PO 81 mg QDAY KRISTA Administration Atorvastatin Calcium 80 mg 12/12/21 22:00 12/14/21 21:22 Atorvastatin 40 Mg Tab PO Not Given QHS KRISTA Budesonide 0.5 mg 12/13/21 08:00 12/15/21 08:15 Budesonide 0.5 Mg/2 Ml Nebu IH 0.5 mg Q12HRT KRISTA Administration Calcium Acetate 1,334 mg 12/12/21 08:00 12/14/21 21:22 Calcium Acetate 667 Mg Cap PO Not Given TID KRISTA Dextrose 50 ml 12/11/21 22:23 Dextrose 50% In Water (25gm) 50 Ml Syringe IV Q30MIN PRN Hypoglycemia Protocol Famotidine 10 mg 12/13/21 22:00 12/14/21 21:22 Famotidine 10 Mg Tab PO Not Given BID KRISTA Sodium Chloride 100 mls @ 999 mls/hr 12/12/21 12:00 Nacl 0.9% IV ABEL PRN Hypotension Sodium Chloride 500 mls @ 50 mls/hr 12/12/21 17:00 12/13/21 21:19 Nacl 0.9% 500 Ml IV 50 mls/hr DIRECT KRISTA Administration NORepinephrine/NS 8 MG-250 ML 8 mg in 250 mls @ 3.75 mls/hr 12/14/21 23:00 12/15/21 08:15 Norepinephrine/Ns 8 Mg-250 Ml (Double Conc) IV 2 mcg/min TITRATE KRISTA 3.75 mls/hr Titration Protocol 2 MCG/MIN Vancomycin HCl 1,250 mg/ 275 mls @ 166.667 mls/hr 12/15/21 09:00 12/15/21 09:30 Sodium Chloride IV 12/15/21 13:00 166.667 mls/hr ONCE@0900 KRISTA Administration Insulin Human Lispro 0 unit 12/12/21 07:30 12/15/21 08:59 Insulin Lispro 100 Unit/Ml SUB-Q Not Given ACHS [facility] Protocol Levetiracetam 500 mg 12/16/21 18:00 Levetiracetam 500 Mg Tab PO TuThSa [facility] Midodrine 5 mg 12/13/21 16:00 12/15/21 08:48 Midodrine 2.5 Mg Tab PO 5 mg TID@0800,1200,1600 KRISTA Administration Morphine Sulfate 2 mg 12/11/21 22:11 Morphine 4 Mg/1 Ml Inj IV Q5MIN PRN Chest Pain unrelieved by NTG Nitroglycerin 0.4 mg 12/11/21 22:11 Nitroglycerin 0.4 Mg Tab Subl SL Q5M PRN Chest Pain Sevelamer Carbonate 800 mg 12/12/21 08:00 12/14/21 19:00 Sevelamer Carbonate 800 Mg Tab PO Not Given TIDWM KRISTA Sodium Chloride 10 ml 12/11/21 22:11 Sodium Chloride 0.9% 10 Ml Flush Syringe IV PRN PRN LINE FLUSH Tramadol HCl 50 mg 12/11/21 22:11 12/15/21 02:38 Tramadol 50 Mg Tab PO 50 mg Q6H PRN Administration Pain, Moderate (4-6) Nutrition/Malnutrition Assess - Dietary Evaluation Nutrition/Malnutrition Findings: Nutrition Notes Start: 12/12/21 11:57 Freq: Status: Active Protocol: Document 12/12/21 11:58 SERINA (Rec: 12/12/21 12:01 SERINA [id number]) Nutrition Notes Need for Assessment generated from: MD Order,Education Initial or Follow up Brief Note Current Diagnosis CKD (stage V CKD),Diabetes, Hypertension Other Pertinent Diagnosis s/p fall, (R) hip pain Current Diet Renal/Consistent CHO Weight Status Appropriate Subjective/Other Information RD consulted for diet education. Neither BP or BG elevated; lipid panel ok as well. Burn Absent Trauma Absent Minimum of two criteria No Nutrition Intervention Follow-Up By: 12/16/21 Additional Comments F/U: intakes
[2021-12-15] MEDS: CALCIUM ACETATE 667 MG CAP PO SCH (09:54)
[2021-12-15] MEDS: SEVELAMER CARBONATE 800 MG TAB PO SCH ×3 (09:55→16:20)
--- NOTE | 2021-12-15 09:56 | XRay Report ---
XR abdomen 1V ap INDICATION: s/p dht placement. COMPARISON: None available. FINDINGS: The tip of the feeding tube projects over the distal stomach. Signer Name: Julian Madrid MD Signed: 12/15/2021 9:51 AM Workstation Name: [employer]
[2021-12-15] MEDS: ASPIRIN 81 MG TAB CHEW FEEDTUBE SCH (10:27)
[2021-12-15] MEDS ORDERED: traMADol 50 MG TAB FEEDTUBE PRN (11:00)
[2021-12-15] MEDS ORDERED: SIMPLE SYRUP 15 ML FEEDTUBE ONE (11:00)
[2021-12-15] MEDS: DEXTROSE 50% IN WATER (25GM) 50 ML SYRINGE IV PRN (11:07)
--- NOTE | 2021-12-15 11:22 | Consultation ---
History of Present Illness Consult date: 12/15/21 Requesting physician: JONNATHAN TATUM Reason for consult: other (Septic Shock) History of present illness: PULMONARY/CCM CONSULT NOTE (Full dictation # [id number]) Please see dictated notes for full details Past History Past Medical History: ESRD, GERD, heart failure, hypertension, renal failure Past Surgical History: Other (Right anterior chest hemodialysis port) Social history: no significant social history Family history: no significant family history, hypertension Medications and Allergies Allergies Allergy/AdvReac Type Severity Reaction Status Date / Time No Known Allergies Allergy Verified 12/11/21 22:19 Home Medications Medication Instructions Recorded Confirmed Last Taken Type Albuterol Sulfate [Proair 2 puff IH Q6HR PRN 11/23/21 12/14/21 Unknown History Digihaler] Calcium Acetate 2 tab PO TID 11/23/21 12/14/21 Unknown History Fluticasone/Umeclidin/Vilanter 1 each IH DAILY 11/23/21 12/14/21 Unknown History [Trelegy Ellipta 100-62.5-25] Furosemide [Lasix TAB] 40 mg PO QDAY 11/23/21 12/14/21 Unknown History Insulin Aspart (Nf) [NovoLOG 55 unit SQ TID 11/23/21 12/14/21 Unknown History Flexpen] Insulin Glargine [Lantus VIAL] 25 units SQ QHS 11/23/21 12/14/21 Unknown History Omeprazole 20 mg PO DAILY 11/23/21 12/14/21 Unknown History Spironolactone [Aldactone] 100 mg PO QDAY 11/23/21 12/14/21 Unknown History lisinopriL [Lisinopril] 20 mg PO BID 11/23/21 12/14/21 12/06/21 History 500 MG Docusate Sodium [Colace CAP] 100 mg PO BID PRN #60 capsule 11/24/21 12/14/21 Unknown Rx Aspirin EC [Halfprin EC] 81 mg PO DAILY 90 Days #90 tablet 11/26/21 12/14/21 Unknown Rx Aspirin [Adult Aspirin] 81 mg PO DAILY 90 Days #90 tab 11/26/21 12/14/21 Unknown Rx ISOSORBIDE MONOnitrate [Imdur ER] 60 mg PO QDAY 90 Days #90 tab 11/26/2109/06 Unknown Rx Sevelamer Carbonate [Renvela] 800 mg PO TIDWM 90 Days #270 tab 11/26/21 12/14/21 Unknown Rx amLODIPine 10 mg PO DAILY 90 Days #90 tab 11/26/21 12/14/21 Unknown Rx carvediloL [Coreg] 25 mg PO BID 90 Days #180 tab 11/26/21 12/14/21 Unknown Rx Atorvastatin Calcium [Lipitor] 80 mg PO QHS 90 Days #90 tab 11/27/21 12/14/21 Unknown Rx levETIRAcetam [Keppra TAB] 500 mg PO 3XW 12/14/21 12/14/21 12/06/21 History 500 MG Active Meds: Active Medications Acetaminophen (Acetaminophen 650 Mg Rect Supp) 650 mg OR Q4H PRN PRN Reason: Pain, Mild (1-3) Last Admin: 12/13/21 23:18 Dose: 650 mg Albuterol (Albuterol 2.5 Mg/3 Ml Nebu) 2.5 mg IH Q6HR PRN PRN Reason: Wheezing Albuterol/Ipratropium (Ipratropium/Albuterol Sulfate 3 Ml Ampul.Neb) 1 ampul IH TIDRT KRISTA Last Admin: 12/15/21 08:15 Dose: 1 ampul Aspirin (Aspirin 81 Mg Tab Chew) 81 mg FEEDTUBE QDAY KRISTA Last Admin: 12/15/21 10:27 Dose: 81 mg Atorvastatin Calcium (Atorvastatin 40 Mg Tab) 80 mg FEEDTUBE QHS KRISTA Budesonide (Budesonide 0.5 Mg/2 Ml Nebu) 0.5 mg IH Q12HRT KRISTA Last Admin: 12/15/21 08:15 Dose: 0.5 mg Calcium Acetate (Calcium Acetate 667 Mg Cap) 1,334 mg FEEDTUBE TID KRISTA Dextrose (Dextrose 50% In Water (25gm) 50 Ml Syringe) 50 ml IV Q30MIN PRN; Protocol PRN Reason: Hypoglycemia Last Admin: 12/15/21 11:07 Dose: 15 ml Famotidine (Famotidine 10 Mg Tab) 10 mg FEEDTUBE BID KRISTA Sodium Chloride (Nacl 0.9%) 100 mls @ 999 mls/hr IV ABEL PRN PRN Reason: Hypotension Sodium Chloride (Nacl 0.9% 500 Ml) 500 mls @ 50 mls/hr IV DIRECT KRISTA Last Admin: 12/13/21 21:19 Dose: 50 mls/hr NORepinephrine/NS 8 MG-250 ML (Norepinephrine/Ns 8 Mg-250 Ml (Double Conc)) 8 mg in 250 mls @ 3.75 mls/hr IV TITRATE KRISTA; Protocol Last Titration: 12/15/21 08:30 Dose: 0 mcg/min, 0 mls/hr Vancomycin HCl 1,250 mg/ (Sodium Chloride) 275 mls @ 166.667 mls/hr IV ON CE@0900 [facility] Stop: 12/15/21 13:00 Last Admin: 12/15/21 09:30 Dose: 166.667 mls/hr Insulin Human Lispro (Insulin Lispro 100 Unit/Ml) 0 unit SUB-Q Q6HR [facility]; Protocol Levetiracetam (Levetiracetam 500 Mg/5 Ml Oral Liqd) 500 mg FEEDTUBE TuThSa [facility] Midodrine (Midodrine 10 Mg Tab) 10 mg FEEDTUBE TID@0800,1200,1600 [facility] Morphine Sulfate (Morphine 4 Mg/1 Ml Inj) 2 mg IV Q5MIN PRN PRN Reason: Chest Pain unrelieved by NTG Nitroglycerin (Nitroglycerin 0.4 Mg Tab Subl) 0.4 mg SL Q5M PRN PRN Reason: Chest Pain Sevelamer Carbonate (Sevelamer Carbonate 800 Mg Tab) 800 mg PO TIDWM [facility] Last Admin: 12/15/21 09:55 Dose: Not Given Sodium Chloride (Sodium Chloride 0.9% 10 Ml Flush Syringe) 10 ml IV PRN PRN PRN Reason: LINE FLUSH Tramadol HCl (Tramadol 50 Mg Tab) 50 mg FEEDTUBE Q6H PRN PRN Reason: Pain, Moderate (4-6) Last Admin: 12/15/21 11:10 Dose: 50 mg Physical Examination Vital signs: Vital Signs Temp Pulse Resp BP Pulse Ox 98.0 F 86 16 160/78 98 12/11/21 11:55 12/11/21 11:55 12/11/21 11:55 12/11/21 11:55 12/11/21 11:55 Results - Laboratory Findings CBC and BMP: 12/15/21 04:11 12/15/21 04:11 Abnormal lab findings: Abnormal Labs 12/11/21 12/11/21 12/12/21 14:52 15:40 04:43 RBC 3.57 L Hgb 9.4 L Hct 29.5 L MCH 26 L 27 L RDW 17.8 H 17.9 H Plt Count 119 L 110 L Lymph % (Auto) 4.0 L Lymph # (Auto) 0.3 L Seg Neutrophils % 90.0 H Lymphocytes % (Manual) Monocytes % (Manual) Lymphocytes # (Manual) Sodium Potassium Chloride Carbon Dioxide 18 L BUN 76 H Creatinine 9.2 H Glucose POC Glucose Calcium 7.7 L Alkaline Phosphatase 237 H Troponin T 0.168 H* Albumin 3.6 L LDL Cholesterol Direct 16 L 12/12/21 12/12/21 12/12/21 04:43 04:43 08:49 RBC Hgb Hct MCH RDW Plt Count Lymph % (Auto) Lymph # (Auto) Seg Neutrophils % Lymphocytes % (Manual) Monocytes % (Manual) Lymphocytes # (Manual) Sodium 136 L Potassium Chloride 96.0 L Carbon Dioxide BUN 85 H Creatinine 9.6 H Glucose 57 L POC Glucose 47 L Calcium 7.8 L Alkaline Phosphatase Troponin T 0.175 H* Albumin LDL Cholesterol Direct 12/12/21 12/13/21 12/13/21 11:12 07:30 07:30 RBC Hgb 9.7 L Hct 30.0 L MCH 27 L RDW 18.0 H Plt Count 99 L Lymph % (Auto) 4.8 L Lymph # (Auto) 0.3 L Seg Neutrophils % 88.2 H Lymphocytes % (Manual) Monocytes % (Manual) Lymphocytes # (Manual) Sodium Potassium 5.1 H Chloride 97.8 L Carbon Dioxide 16 L BUN 92 H Creatinine 10.6 H Glucose 121 H POC Glucose 64 L Calcium 7.6 L Alkaline Phosphatase Troponin T Albumin LDL Cholesterol Direct 12/13/21 12/13/21 12/13/21 08:06 11:32 16:59 RBC Hgb Hct MCH RDW Plt Count Lymph % (Auto) Lymph # (Auto) Seg Neutrophils % Lymphocytes % (Manual) Monocytes % (Manual) Lymphocytes # (Manual) Sodium Potassium Chloride Carbon Dioxide BUN Creatinine Glucose POC Glucose 118 H 128 H 130 H Calcium Alkaline Phosphatase Troponin T Albumin LDL Cholesterol Direct 12/13/21 12/14/21 12/14/21 20:16 11:10 11:10 RBC Hgb 9.9 L Hct MCH 27 L RDW 18.1 H Plt Count 82 L Lymph % (Auto) 5.8 L Lymph # (Auto) 0.4 L Seg Neutrophils % 88.3 H Lymphocytes % (Manual) Monocytes % (Manual) Lymphocytes # (Manual) Sodium Potassium Chloride Carbon Dioxide 21 L BUN 57 H Creatinine 7.1 H Glucose 105 H POC Glucose 113 H Calcium Alkaline Phosphatase Troponin T Albumin LDL Cholesterol Direct 12/14/21 12/14/21 12/15/21 11:46 16:41 04:11 RBC Hgb 9.9 L Hct 30.0 L MCH 27 L RDW 18.4 H Plt Count 57 L Lymph % (Auto) Lymph # (Auto) Seg Neutrophils % Lymphocytes % (Manual) 9.0 L Monocytes % (Manual) 10.0 H Lymphocytes # (Manual) 0.6 L Sodium Potassium Chloride Carbon Dioxide BUN Creatinine Glucose POC Glucose 108 H 111 H Calcium Alkaline Phosphatase Troponin T Albumin LDL Cholesterol Direct 12/15/21 12/15/21 12/15/21 04:11 08:48 10:02 RBC Hgb Hct MCH RDW Plt Count Lymph % (Auto) Lymph # (Auto) Seg Neutrophils % Lymphocytes % (Manual) Monocytes % (Manual) Lymphocytes # (Manual) Sodium Potassium Chloride Carbon Dioxide 19 L BUN 68 H Creatinine 7.6 H Glucose POC Glucose 68 L 65 L Calcium 8.1 L Alkaline Phosphatase Troponin T Albumin LDL Cholesterol Direct 12/15/21 12/15/21 10:20 10:51 RBC Hgb Hct MCH RDW Plt Count Lymph % (Auto) Lymph # (Auto) Seg Neutrophils % Lymphocytes % (Manual) Monocytes % (Manual) Lymphocytes # (Manual) Sodium Potassium Chloride Carbon Dioxide BUN Creatinine Glucose POC Glucose 59 L 60 L Calcium Alkaline Phosphatase Troponin T Albumin LDL Cholesterol Direct
[2021-12-15] MEDS ORDERED: MIDODRINE 2.5 MG TAB FEEDTUBE SCH ×2 (12:00)
--- NOTE | 2021-12-15 12:34 | XRay Report ---
RIGHT FOREARM 2 VIEWS INDICATION: Pain/Swelling s/p Fall. COMPARISON: None. IMPRESSION: Slightly limited exam and an uncooperative patient. There is diffuse distal soft tissue swelling or edema. No acute osseous abnormality is appreciated. RIGHT HAND 3 VIEWS INDICATION: Pain/Swelling s/p Fall. COMPARISON: None. IMPRESSION: There is severe diffuse soft tissue swelling or edema. No soft tissue gas or foreign bod y is identified. No acute osseous abnormality or significant joint pathology is appreciated. Signer Name: Charles Albert Jr, MD Signed: 12/15/2021 12:30 PM Workstation Name: [id number]
[2021-12-15] MEDS: MIDODRINE 10 MG TAB FEEDTUBE SCH ×2 (12:44→15:43)
--- NOTE | 2021-12-15 12:58 | Progress Note ---
Assessment and Plan - Patient Problems (1) Syncope Current Visit: Yes Status: Acute Plan to address problem: Patient admitted with episode of transient dizziness causing a fall which resulted in right hip pain. She has end-stage renal disease on hemodialysis, has missed at least 1 dialysis session prior to admission. Recently relocated here from [place]. Echocardiogram done in this hospital on a prior admission 2 weeks ago showed a moderate severity cardiomyopathy, ejection fraction 35 to 40%. The etiology of her cardiomyopathy is not known at this time, we do not have her records from [place] for review. Hospital course is now complicated by development of sepsis, with for positive blood cultures. Suspected source is the indwelling Vas-Cath. We will optimize guideline directed medical therapy as tolerated directed at the underlying cardiomyopathy, otherwise, conservative cardiac management at this time. Subjective Date of service: 12/15/21 Principal diagnosis: hypotension Interval history: The patient was transferred to the ICU over the weekend for development of hypotension, which appears due to severe sepsis. She has 4 blood cultures that are positive. The suspected source of infection is her indwelling Vas-Cath. 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 Objective Vital Signs Temp Pulse Pulse Resp Resp Resp BP 12/15/21 10:30 82 11 L 99/49 12/15/21 10:21 75 14 102/42 12/15/21 10:11 79 14 97/44 12/15/21 10:10 12/15/21 10:00 77 16 97/44 12/15/21 09:51 75 11 L 104/43 12/15/21 09:41 78 11 L 106/52 12/15/21 09:30 78 16 106/52 12/15/21 09:21 79 14 93/38 12/15/21 09:11 76 10 L 97/44 12/15/21 09:00 79 14 97/44 12/15/21 08:51 83 14 104/40 12/15/21 08:41 80 14 103/43 12/15/21 08:30 82 10 L 103/43 12/15/21 08:21 78 9 L 117/42 12/15/21 08:15 77 16 12/15/21 08:14 12/15/21 08:12 99.5 F 12/15/21 08:11 80 11 L 104/42 12/15/21 08:00 81 13 104/42 12/15/21 07:51 83 12 112/37 12/15/21 07:41 77 17 111/43 12/15/21 07:30 84 17 111/43 12/15/21 07:23 99.5 F 12/15/21 07:21 80 11 L 114/46 12/15/21 07:11 81 13 120/53 12/15/21 07:00 82 15 115/46 12/15/21 05:50 21 12/15/21 03:38 100.2 F H 12/15/21 03:11 81 13 110/38 12/15/21 03:01 82 16 110/38 12/15/21 02:51 78 11 L 100/41 12/15/21 02:41 82 19 113/43 12/15/21 02:38 16 12/15/21 02:30 84 11 L 113/43 12/15/21 02:21 84 13 119/41 12/15/21 02:20 83 12/15/21 02:11 83 11 L 118/40 12/15/21 02:00 83 12 118/40 12/15/21 01:51 82 13 121/39 12/15/21 01:41 83 9 L 114/39 12/15/21 01:30 84 12 114/39 12/15/21 01:21 84 10 L 108/43 12/15/21 01:15 14 12/15/21 01:11 83 14 127/40 12/15/21 01:00 84 11 L 127/40 12/15/21 00:51 84 12 109/43 12/15/21 00:41 84 12 119/44 12/15/21 00:30 84 11 L 119/44 12/15/21 00:25 17 12/15/21 00:21 86 11 L 145/43 02 00:20 83 02 00:11 85 14 122/44 12/15/21 00:00 99.5 F 84 10 L 122/44 12/14/21 23:51 85 14 118/39 12/14/21 23:41 85 14 120/42 12/14/21 23:31 83 12 120/42 12/14/21 23:25 85 12/14/21 23:21 79 11 L 12/14/21 23:11 86 11 L 12/14/21 23:03 88 9 L 12/14/21 22:40 91 H 19 12/14/21 22:30 84 18 12/14/21 22:15 69 19 12/14/21 22:05 80 17 12/14/21 21:35 12/14/21 20:35 74 18 12/14/21 20:00 89 12/14/21 15:37 97.5 F L 80 18 115/41 12/14/21 13:58 78 18 BP Pulse Ox 12/15/21 10:30 96 12/15/21 10:21 95 12/15/21 10:11 95 12/15/21 10:10 95 12/15/21 10:00 88 12/15/21 09:51 91 12/15/21 09:41 81 L 12/15/21 09:30 83 L 12/15/21 09:21 89 12/15/21 09:11 95 12/15/21 09:00 92 12/15/21 08:51 86 12/15/21 08:41 100 12/15/21 08:30 90 12/15/21 08:21 98 12/15/21 08:15 12/15/21 08:14 97 12/15/21 08:12 12/15/21 08:11 84 12/15/21 08:00 96 12/15/21 07:51 98 12/15/21 07:41 92 12/15/21 07:30 95 12/15/21 07:23 12/15/21 07:21 96 12/15/21 07:11 91 12/15/21 07:00 95 12/15/21 05:50 100 12/15/21 03:38 12/15/21 03:11 100 12/15/21 03:01 98 12/15/21 02:51 98 12/15/21 02:41 96 12/15/21 02:38 12/15/21 02:30 90 12/15/21 02:21 87 12/15/21 02:20 100 12/15/21 02:11 99 12/15/21 02:00 97 12/15/21 01:51 99 12/15/21 01:41 100 12/15/21 01:30 99 12/15/21 01:21 100 12/15/21 01:15 12/15/21 01:11 99 12/15/21 01:00 98 12/15/21 00:51 99 12/15/21 00:41 99 12/15/21 00:30 97 12/15/21 00:25 100 12/15/21 00:21 93 12/15/21 00:20 12/15/21 00:11 97 12/15/21 00:00 98 12/14/21 23:51 98 12/14/21 23:41 98 12/14/21 23:31 97 12/14/21 23:25 12/14/21 23:21 95 12/14/21 23:11 92 12/14/21 23:03 12/14/21 22:40 72/39 99 12/14/21 22:30 73/39 99 12/14/21 22:15 78/39 96 12/14/21 22:05 76/42 89 12/14/21 21:35 98 12/14/21 20:35 12/14/21 20:00 12/14/21 15:37 97 12/14/21 13:58 - Physical Examination General: Cachectic, Other (Sleepy and lethargic, on O2 facemask) HEENT: Positive: PERRL Neck: Positive: neck supple Cardiac: Positive: Reg Rate and Rhythm Lungs: Positive: Decreased Breath Sounds Neuro: Positive: Weakness (Generalized lethargy) Abdomen: Positive: Soft Skin: Positive: Clear Extremities: Absent: edema - Labs and Meds CBC 12/15/21 Range/Units 04:11 WBC 6.6 (4.5-11.0) K/mm3 RBC 3.73 (3.65-5.03) M/mm3 Hgb 9.9 L (10.1-14.3) gm/dl Hct 30.0 L (30.3-42.9) % Plt Count 57 L (140-440) K/mm3 Comprehensive Metabolic Panel 12/14/21 12/15/21 Range/Units 11:10 04:11 Sodium 139 (137-145) mmol/L Potassium 4.4 (3.6-5.0) mmol/L Chloride 98.7 (98-107) mmol/L Carbon Dioxide 19 L (22-30) mmol/L BUN 68 H (7-17) mg/dL Creatinine 7.1 H 7.6 H (0.6-1.2) mg/dL Glucose 77 (65-100) mg/dL Calcium 8.1 L (8.4-10.2) mg/dL
--- NOTE | 2021-12-15 13:24 | Electrocardiograph Report ---
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
--- NOTE | 2021-12-15 13:58 | Vascular Lab Report ---
DUPLEX DOPPLER UPPER EXTREMITY VENOUS, RIGHT INDICATION / CLINICAL INFORMATION: Right upper extremity pain and swelling. TECHNIQUE: Duplex doppler imaging was performed through the veins of the right upper extremity using venous compression and other maneuvers. COMPARISON: None available. FINDINGS: RIGHT INTERNAL JUGULAR VEIN: Negative. RIGHT SUBCLAVIAN VEIN: Negative. RIGHT AXILLARY VEIN: Negative. RIGHT BRACHIAL VEIN: Negative. RIGHT FOREARM VEINS: Negative. RIGHT BASILIC VEIN (SUPERFICIAL): Negative. ADDITIONAL FINDINGS: There is nonspecific subcutaneous edema. IMPRESSION: 1. No sonographic evidence for DVT. Signer Name: Charles Albert Jr, MD Signed: 12/15/2021 1:54 PM Workstation Name: [id number]
--- NOTE | 2021-12-15 15:41 | Consultation ---
History of Present Illness - Reason for Consult Consult date: 12/15/21 - History of Present Illness 66-year-old female past medical history hypertension, ESRD on HD, GERD presented to hospital after having a fall 2 days prior to admission. She felt dizzy at the time of the fall. Otherwise denies any complaints. She missed her dialysis session. The admission. No fracture seen on imaging. Intermittently febrile, T-max 101.3 white count has been normal during the admission. Blood cultures gram-positive cocci in 4 bottles. Imaging personally reviewed: Chest x-ray: Pulmonary edema Review of Systems: Bold if positive, otherwise negative General: fevers, chills, rigors HEENT: visual disturbance, diplopia, eye pain Respiratory: cough, sputum, hemoptysis, shortness of breath Cardiovascular: chest pain, syncope Gastrointestinal: nausea, vomiting, diarrhea, abdominal pain Genitourinary: dysuria, hematuria, flank pain Musculoskeletal: neck pain, back pain, joint pain, edema Neurologic: headaches, seizures Hematologic: easy bruising or bleeding Endocrine: night sweats, acute weight loss Skin: rash, jaundice, redness Psychiatric: suicidal, homicidal ideation Past History Past Medical History: ESRD, GERD, heart failure, hypertension, renal failure Past Surgical History: Other (Right anterior chest hemodialysis port) Social history: no significant social history Family history: no significant family history, hypertension Medications and Allergies Allergies Allergy/AdvReac Type Severity Reaction Status Date / Time No Known Allergies Allergy Verified 12/11/21 22:19 Home Medications Medication Instructions Recorded Confirmed Last Taken Type Albuterol Sulfate [Proair 2 puff IH Q6HR PRN 11/23/21 12/14/21 Unknown History Digihaler] Calcium Acetate 2 tab PO TID 11/23/21 12/14/21 Unknown History Fluticasone/Umeclidin/Vilanter 1 each IH DAILY 11/23/21 12/14/21 Unknown History [Trelegy Ellipta 100-62.5-25] Furosemide [Lasix TAB] 40 mg PO QDAY 11/23/21 12/14/21 Unknown History Insulin Aspart (Nf) [NovoLOG 55 unit SQ TID 11/23/21 12/14/21 Unknown History Flexpen] Insulin Glargine [Lantus VIAL] 25 units SQ QHS 11/23/21 12/14/21 Unknown History Omeprazole 20 mg PO DAILY 11/23/21 12/14/21 Unknown History Spironolactone [Aldactone] 100 mg PO QDAY 11/23/21 12/14/21 Unknown History lisinopriL [Lisinopril] 20 mg PO BID 11/23/21 12/14/21 12/06/21 History 500 MG Docusate Sodium [Colace CAP] 100 mg PO BID PRN #60 capsule 11/24/21 12/14/21 Unknown Rx Aspirin EC [Halfprin EC] 81 mg PO DAILY 90 Days #90 tablet 11/26/21 12/14/21 Unknown Rx Aspirin [Adult Aspirin] 81 mg PO DAILY 90 Days #90 tab 11/26/21 12/14/21 Unknown Rx ISOSORBIDE MONOnitrate [Imdur ER] 60 mg PO QDAY 90 Days #90 tab 11/26/21 12/14/21 Unknown Rx Sevelamer Carbonate [Renvela] 800 mg PO TIDWM 90 Days #270 tab 11/26/21 12/14/21 Unknown Rx amLODIPine 10 mg PO DAILY 90 Days #90 tab 11/26/21 12/14/21 Unknown Rx carvediloL [Coreg] 25 mg PO BID 90 Days #180 tab 11/26/21 12/14/21 Unknown Rx Atorvastatin Calcium [Lipitor] 80 mg PO QHS 90 Days #90 tab 11/27/21 12/14/21 Unknown Rx levETIRAcetam [Keppra TAB] 500 mg PO 3XW 12/14/21 12/14/21 12/06/21 History 500 MG Active Meds: Active Medications Acetaminophen (Acetaminophen 650 Mg Rect Supp) 650 mg TN Q4H PRN PRN Reason: Pain, Mild (1-3) Last Admin: 12/13/21 23:18 Dose: 650 mg Albuterol (Albuterol 2.5 Mg/3 Ml Nebu) 2.5 mg IH Q6HR PRN PRN Reason: Wheezing Albuterol/Ipratropium (Ipratropium/Albuterol Sulfate 3 Ml Ampul.Neb) 1 ampul IH TIDRT [facility] Last Admin: 12/15/21 14:56 Dose: 1 ampul Aspirin (Aspirin 81 Mg Tab Chew) 81 mg FEEDTUBE QDAY [facility] Last Admin: 12/15/21 10:27 Dose: 81 mg Atorvastatin Calcium (Atorvastatin 40 Mg Tab) 80 mg FEEDTUBE QHS KRISTA Budesonide (Budesonide 0.5 Mg/2 Ml Nebu) 0.5 mg IH Q12HRT [facility] Last Admin: 12/15/21 08:15 Dose: 0.5 mg Calcium Acetate (Calcium Acetate 667 Mg Cap) 1,334 mg FEEDTUBE TID [facility] Dextrose (Dextrose 50% In Water (25gm) 50 Ml Syringe) 50 ml IV Q30MIN PRN; Protocol PRN Reason: Hypoglycemia Last Admin: 12/15/21 11:07 Dose: 15 ml Famotidine (Famotidine 10 Mg Tab) 10 mg FEEDTUBE BID KRISTA Sodium Chloride (Nacl 0.9%) 100 mls @ 999 mls/hr IV ABEL PRN PRN Reason: Hypotension Sodium Chloride (Nacl 0.9% 500 Ml) 500 mls @ 50 mls/hr IV DIRECT KRISTA Last Admin: 12/13/21 21:19 Dose: 50 mls/hr NORepinephrine/NS 8 MG-250 ML (Norepinephrine/Ns 8 Mg-250 Ml (Double Conc)) 8 mg in 250 mls @ 3.75 mls/hr IV TITRATE [facility]; Protocol Last Titration: 12/15/21 08:30 Dose: 0 mcg/min, 0 mls/hr Insulin Human Lispro (Insulin Lispro 100 Unit/Ml) 0 unit SUB-Q Q6HR [facility]; Protocol Last Admin: 12/15/21 11:25 Dose: Not Given Levetiracetam (Levetiracetam 500 Mg/5 Ml Oral Liqd) 500 mg FEEDTUBE TuThSa [facility] Midodrine (Midodrine 10 Mg Tab) 10 mg FEEDTUBE TID@0800,1200,1600 [facility] Last Admin: 12/15/21 12:44 Dose: 10 mg Morphine Sulfate (Morphine 4 Mg/1 Ml Inj) 2 mg IV Q5MIN PRN PRN Reason: Chest Pain unrelieved by NTG Nitroglycerin (Nitroglycerin 0.4 Mg Tab Subl) 0.4 mg SL Q5M PRN PRN Reason: Chest Pain Sevelamer Carbonate (Sevelamer Carbonate 800 Mg Tab) 800 mg PO TIDWM [facility] Last Admin: 12/15/21 09:55 Dose: Not Given Sodium Chloride (Sodium Chloride 0.9% 10 Ml Flush Syringe) 10 ml IV PRN PRN PRN Reason: LINE FLUSH Tramadol HCl (Tramadol 50 Mg Tab) 50 mg FEEDTUBE Q6H PRN PRN Reason: Pain, Moderate (4-6) Last Admin: 12/15/21 11:10 Dose: 50 mg Physical Examination - Physical Exam Narrative exam: Physical Exam: Constitutional: Alert, cooperative. No acute distress Head, Ears, Nose: Normocephalic, atraumatic. External ears, nose normal Eyes: Conjunctivae/corneas clear. No icterus. No ptosis. Neck: Supple, no meningeal signs Oral: dentition fair, no thrush Cardiovascular: S1, S2 normal. Respiratory: Good air entry, clear to auscultation bilaterally GI: Soft, non-tender; bowel sounds normal. No peritoneal signs. Musculoskeletal: No pedal edema, no cyanosis. Skin: No rash or abscess Hem/Lymphatic: No palpable cervical or supraclavicular nodes. No lymphangitis Psych: Mood ok. Affect normal Neurological: Awake, alert, oriented. No gross abnormality - Constitutional Vitals: Vital Signs Temp Pulse Resp BP Pulse Ox 98.4 F 82 12 105/39 100 12/15/21 14:00 12/15/21 14:56 12/15/21 14:56 12/15/21 14:00 12/15/21 14:00 Temperature -Last 24 Hours Temperature 98.4 F Temperature 99.5 F Temperature 99.5 F Temperature 100.2 F Temperature 99.5 F Results - Labs CBC & Chem 7: 12/15/21 04:11 12/15/21 04:11 Labs: Abnormal lab results 12/14/21 12/15/21 12/15/21 Range/Units 16:41 04:11 04:11 Hgb 9.9 L (10.1-14.3) gm/dl Hct 30.0 L (30.3-42.9) % MCH 27 L (28-32) pg RDW 18.4 H (13.2-15.2) % Plt Count 57 L (140-440) K/mm3 Lymphocytes % (Manual) 9.0 L (13.4-35.0) % Monocytes % (Manual) 10.0 H (0.0-7.3) % Lymphocytes # (Manual) 0.6 L (1.2-5.4) K/mm3 Carbon Dioxide 19 L (22-30) mmol/L BUN 68 H (7-17) mg/dL Creatinine 7.6 H (0.6-1.2) mg/dL POC Glucose 111 H (70-105) mg/dL Lactic Acid (0.7-2.0) mmol/L Calcium 8.1 L (8.4-10.2) mg/dL 12/15/21 12/15/21 12/15/21 Range/Units 08:48 10:02 10:20 Hgb (10.1-14.3) gm/dl Hct (30.3-42.9) % MCH (28-32) pg RDW (13.2-15.2) % Plt Count (140-440) K/mm3 Lymphocytes % (Manual) (13.4-35.0) % Monocytes % (Manual) (0.0-7.3) % Lymphocytes # (Manual) (1.2-5.4) K/mm3 Carbon Dioxide (22-30) mmol/L BUN (7-17) mg/dL Creatinine (0.6-1.2) mg/dL POC Glucose 68 L 65 L 59 L (70-105) mg/dL Lactic Acid (0.7-2.0) mmol/L Calcium (8.4-10.2) mg/dL 12/15/21 12/15/21 Range/Units 10:51 14:40 Hgb (10.1-14.3) gm/dl Hct (30.3-42.9) % MCH (28-32) pg RDW (13.2-15.2) % Plt Count (140-440) K/mm3 Lymphocytes % (Manual) (13.4-35.0) % Monocytes % (Manual) (0.0-7.3) % Lymphocytes # (Manual) (1.2-5.4) K/mm3 Carbon Dioxide (22-30) mmol/L BUN (7-17) mg/dL Creatinine (0.6-1.2) mg/dL POC Glucose 60 L (70-105) mg/dL Lactic Acid 2.50 H* (0.7-2.0) mmol/L Calcium (8.4-10.2) mg/dL Assessment and Plan Cultures: Blood culture gram-positive cocci in chains and pairs A/P: 66-year-old female past medical history hypertension, ESRD on HD now with: #Gram-positive bacteremia: Awaiting culture finalization. Unclear source as yet. #ESRD on HD: Renally dose antibiotics Recs: -Vancomycin goal trough 10-20 -Repeat blood cultures ordered for a.m. labs -Check TTE -Follow-up blood cultures Thank you for the consult, we will continue to follow. Tien Shleby MD [facility] O: [phone] F: [phone]
[2021-12-15] MEDS ORDERED: SODIUM CHLORIDE 0.9% 250ML 500 ML IV ONE (16:00)
[2021-12-15] MEDS ORDERED: ALBUMIN HUMAN 25% (25 GM/100 ML) INJ IV NR (16:00)
[2021-12-15] MEDS: CALCIUM ACETATE 667 MG CAP FEEDTUBE SCH ×2 (16:20→20:46)
--- NOTE | 2021-12-15 17:10 | Consultation ---
History of Present Illness - Reason for Consult Consult date: 12/15/21 Permcath infection, dialysis Requesting physician: YUDITH SMALL - History of Present Illness 66 years old female with history of hypertension, history of heart attack end- stage renal disease on hemodialysis and GERD was brought to the hospital because s/p fall, that occurred 2 days ago. States she did not trip or slip. States she felt dizzy and then found herself on the ground. Denies any CP, SOB, palpitations, diaphoresis prior to or after the fall. Has been having MCKEON,R hip, thigh, knee and leg pain since the fall. Patient also has ESRD and missed her last dialysis session. In the ER patient is found to have troponin of 0.168, BUN of 76 creatinine 9.2, potassium 4.4,CXR: pulmonary edema CT head: no acute intracranial process, CT C-spine: no fracture or traumatic subluxation CT pelvis: no acute fracture or dislocation, XR L spine: no fracture or traumatic subluxation XR R tib fib: no acute fracture or dislocatio,XR R femur: no acute fracture or dislocation, XR R hip with pelvis: no acute fracture or dislocation Vascular consulted for bacteremia. Patient was altered, not responsive and wearing mittens on her hands. She was using a facemask for supplementary oxygen and her blood pressure was hypotensive at bedside. Given this issue, I decided to remove the PermCath immediately. 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 The daughter told me that the patient had a AV access thrombosis few weeks ago and had a PermCath placed. She subsequently underwent an AV access thrombectomy. They have been using her AV access in the interim. After PermCath removal, I discussed with the daughter about the patient's dialysis access. Discussed fistulogram, angioplasty, possible stenting with possible Vas-Cath placement if patient is not suitable for intervention tomorrow. Risk, benefits, terms discussed, patient's daughter agrees with procedure. Past History Past Medical History: ESRD, GERD, heart failure, hypertension, renal failure Past Surgical History: Other (Right anterior chest hemodialysis port) Social history: no significant social history Family history: no significant family history, hypertension Medications and Allergies Allergies Allergy/AdvReac Type Severity Reaction Status Date / Time No Known Allergies Allergy Verified 12/11/21 22:19 Home Medications Medication Instructions Recorded Confirmed Last Taken Type Albuterol Sulfate [Proair 2 puff IH Q6HR PRN 11/23/21 12/14/21 Unknown History Digihaler] Calcium Acetate 2 tab PO TID 11/23/21 12/14/21 Unknown History Fluticasone/Umeclidin/Vilanter 1 each IH DAILY 11/23/21 12/14/21 Unknown History [Trelegy Ellipta 100-62.5-25] Furosemide [Lasix TAB] 40 mg PO QDAY 11/23/21 12/14/21 Unknown History Insulin Aspart (Nf) [NovoLOG 55 unit SQ TID 11/23/21 12/14/21 Unknown History Flexpen] Insulin Glargine [Lantus VIAL] 25 units SQ QHS 11/23/21 12/14/21 Unknown History Omeprazole 20 mg PO DAILY 11/23/21 12/14/21 Unknown History Spironolactone [Aldactone] 100 mg PO QDAY 11/23/21 12/14/21 Unknown History lisinopriL [Lisinopril] 20 mg PO BID 11/23/21 12/14/21 12/06/21 History 500 MG Docusate Sodium [Colace CAP] 100 mg PO BID PRN #60 capsule 11/24/21 12/14/21 Unknown Rx Aspirin EC [Halfprin EC] 81 mg PO DAILY 90 Days #90 tablet 11/26/21 12/14/21 Unknown Rx Aspirin [Adult Aspirin] 81 mg PO DAILY 90 Days #90 tab 11/26/21 12/14/21 Unknown Rx ISOSORBIDE MONOnitrate [Imdur ER] 60 mg PO QDAY 90 Days #90 tab 11/26/21 12/14/21 Unknown Rx Sevelamer Carbonate [Renvela] 800 mg PO TIDWM 90 Days #270 tab 11/26/21 12/14/21 Unknown Rx amLODIPine 10 mg PO DAILY 90 Days #90 tab 11/26/21 12/14/21 Unknown Rx carvediloL [Coreg] 25 mg PO BID 90 Days #180 tab 11/26/21 12/14/21 Unknown Rx Atorvastatin Calcium [Lipitor] 80 mg PO QHS 90 Days #90 tab 11/27/21 12/14/21 Unknown Rx levETIRAcetam [Keppra TAB] 500 mg PO 3XW 12/14/21 12/14/21 12/06/21 History 500 MG Active Meds: Active Medications Acetaminophen (Acetaminophen 650 Mg Rect Supp) 650 mg [place] Q4H PRN PRN Reason: Pain, Mild (1-3) Last Admin: 12/13/21 23:18 Dose: 650 mg Albumin Human (Albumin Human 25% (25 Gm/100 Ml) Inj) 25 gm IV ONCE NR Stop: 12/15/21 22:00 Last Admin: 12/15/21 16:17 Dose: 25 gm Albuterol (Albuterol 2.5 Mg/3 Ml Nebu) 2.5 mg IH Q6HR PRN PRN Reason: Wheezing Albuterol/Ipratropium (Ipratropium/Albuterol Sulfate 3 Ml Ampul.Neb) 1 ampul IH TIDRT KRISTA Last Admin: 12/15/21 14:56 Dose: 1 ampul Aspirin (Aspirin 81 Mg Tab Chew) 81 mg FEEDTUBE QDAY KRISTA Last Admin: 12/15/21 10:27 Dose: 81 mg Atorvastatin Calcium (Atorvastatin 40 Mg Tab) 80 mg FEEDTUBE QHS KRISTA Budesonide (Budesonide 0.5 Mg/2 Ml Nebu) 0.5 mg IH Q12HRT KRISTA Last Admin: 12/15/21 08:15 Dose: 0.5 mg Calcium Acetate (Calcium Acetate 667 Mg Cap) 1,334 mg FEEDTUBE TID KRISTA Last Admin: 12/15/21 16:20 Dose: Not Given Dextrose (Dextrose 50% In Water (25gm) 50 Ml Syringe) 50 ml IV Q30MIN PRN; Protocol PRN Reason: Hypoglycemia Last Admin: 12/15/21 11:07 Dose: 15 ml Famotidine (Famotidine 10 Mg Tab) 10 mg FEEDTUBE BID KRISTA Sodium Chloride (Nacl 0.9%) 100 mls @ 999 mls/hr IV ABEL PRN PRN Reason: Hypotension Sodium Chloride (Nacl 0.9% 500 Ml) 500 mls @ 50 mls/hr IV DIRECT KRISTA Last Infusion: 12/14/21 07:19 Dose: Infused NORepinephrine/NS 8 MG-250 ML (Norepinephrine/Ns 8 Mg-250 Ml (Double Conc)) 8 mg in 250 mls @ 3.75 mls/hr IV TITRATE KRISTA; Protocol Last Titration: 12/15/21 17:04 Dose: 6 mcg/min, 11.25 mls/hr Sodium Chloride (Nacl 0.9% 250ml) 500 mls @ 250 mls/hr IV ONCE ONE Stop: 12/15/21 17:59 Last Admin: 12/15/21 16:03 Dose: 250 mls/hr Insulin Human Lispro (Insulin Lispro 100 Unit/Ml) 0 unit SUB-Q Q6HR [facility]; Protocol Last Admin: 12/15/21 11:25 Dose: Not Given Levetiracetam (Levetiracetam 500 Mg/5 Ml Oral Liqd) 500 mg FEEDTUBE TuThSa KRISTA Midodrine (Midodrine 10 Mg Tab) 10 mg FEEDTUBE TID@0800,1200,1600 [facility] Last Admin: 12/15/21 15:43 Dose: 10 mg Morphine Sulfate (Morphine 4 Mg/1 Ml Inj) 2 mg IV Q5MIN PRN PRN Reason: Chest Pain unrelieved by NTG Nitroglycerin (Nitroglycerin 0.4 Mg Tab Subl) 0.4 mg SL Q5M PRN PRN Reason: Chest Pain Sevelamer Carbonate (Sevelamer Carbonate 800 Mg Tab) 800 mg PO TIDWM [facility] Last Admin: 12/15/21 16:20 Dose: Not Given Sodium Chloride (Sodium Chloride 0.9% 10 Ml Flush Syringe) 10 ml IV PRN PRN PRN Reason: LINE FLUSH Tramadol HCl (Tramadol 50 Mg Tab) 50 mg FEEDTUBE Q6H PRN PRN Reason: Pain, Moderate (4-6) Last Admin: 12/15/21 11:10 Dose: 50 mg Review of Systems ROS unobtainable: due to mental status Exam - Constitutional Vitals: Temp Pulse Resp BP Pulse Ox 98.4 F 79 23 87/51 95 12/15/21 16:09 12/15/21 17:01 12/15/21 17:01 12/15/21 17:01 12/15/21 17:01 General appearance: Present: other (Altered) - EENT Eyes: Present: EOM intact ENT: other (Altered) - Neck Neck: Present: supple - Respiratory Respiratory effort: labored (Using face mask for supplementary oxygen) - Extremities Extremities: abnormal (Left arm AV graft pulsatile) - Abdominal General gastrointestinal: Present: soft, non-tender - Psychiatric Psychiatric: other (Somnolent) Results - Labs CBC & Chem 7: 12/15/21 04:11 12/15/21 04:11 Labs: Abnormal lab results 12/14/21 12/15/21 12/15/21 Range/Units 16:41 04:11 04:11 Hgb 9.9 L (10.1-14.3) gm/dl Hct 30.0 L (30.3-42.9) % MCH 27 L (28-32) pg RDW 18.4 H (13.2-15.2) % Plt Count 57 L (140-440) K/mm3 Lymphocytes % (Manual) 9.0 L (13.4-35.0) % Monocytes % (Manual) 10.0 H (0.0-7.3) % Lymphocytes # (Manual) 0.6 L (1.2-5.4) K/mm3 Carbon Dioxide 19 L (22-30) mmol/L BUN 68 H (7-17) mg/dL Creatinine 7.6 H (0.6-1.2) mg/dL POC Glucose 111 H (70-105) mg/dL Lactic Acid (0.7-2.0) mmol/L Calcium 8.1 L (8.4-10.2) mg/dL C-Reactive Protein (0.00-1.30) mg/dL 12/15/21 12/15/21 12/15/21 Range/Units 08:48 10:02 10:20 Hgb (10.1-14.3) gm/dl Hct (30.3-42.9) % MCH (28-32) pg RDW (13.2-15.2) % Plt Count (140-440) K/mm3 Lymphocytes % (Manual) (13.4-35.0) % Monocytes % (Manual) (0.0-7.3) % Lymphocytes # (Manual) (1.2-5.4) K/mm3 Carbon Dioxide (22-30) mmol/L BUN (7-17) mg/dL Creatinine (0.6-1.2) mg/dL POC Glucose 68 L 65 L 59 L (70-105) mg/dL Lactic Acid (0.7-2.0) mmol/L Calcium (8.4-10.2) mg/dL C-Reactive Protein (0.00-1.30) mg/dL 12/15/21 12/15/21 12/15/21 Range/Units 10:51 14:40 14:40 Hgb (10.1-14.3) gm/dl Hct (30.3-42.9) % MCH (28-32) pg RDW (13.2-15.2) % Plt Count (140-440) K/mm3 Lymphocytes % (Manual) (13.4-35.0) % Monocytes % (Manual) (0.0-7.3) % Lymphocytes # (Manual) (1.2-5.4) K/mm3 Carbon Dioxide (22-30) mmol/L BUN (7-17) mg/dL Creatinine (0.6-1.2) mg/dL POC Glucose 60 L (70-105) mg/dL Lactic Acid 2.50 H* (0.7-2.0) mmol/L Calcium (8.4-10.2) mg/dL C-Reactive Protein 38.50 H (0.00-1.30) mg/dL Assessment and Plan 66-year-old female with multiple medical issues including end-stage renal disease with presumed right internal jugular PermCath infection. Due to hypotension, supplementary oxygen requirements, and overall debility, I decided to remove the PermCath at bedside. PermCath was removed at bedside without issue. Tip was sent off for culture. Discussed with family regarding dialysis access. Discussed fistulogram, angioplasty, possible stenting with possible Vas-Cath placement if patient is not suitable for intervention tomorrow. Risk, benefits, terms discussed, patient's daughter agrees with procedure.
[2021-12-15] MEDS ORDERED: propofoL 200 MG/20 ML VIAL IV ONE (17:15)
--- NOTE | 2021-12-15 17:17 | Operative Report ---
Operative Report Operative Report: EXAM: Tunneled catheter removal DATE: 12/15/2021 INDICATION: Hypotension, bacteremia MEDICATIONS: Please see nursing report for full details. FINANCIAL INTERNSHIP: KRISTAL GORDON MD CONTRAST: None PROCEDURE: The patient was positioned with the head towards the contralateral side. The tunneled catheter was prepped and draped in a sterile fashion. Lidocaine was infiltrated at the dermatotomy site. Heparin was withdrawn from both lumens. Using a hemostat, blunt dissection was performed and the cuff was extracted. The catheter was extracted and pressure was held at the venotomy and dermatotomy site until hemostasis was achieved. Sterile bandage was then applied. The patient tolerated the procedure without issue. FINDINGS: Successful removal of the tunneled catheter. IMPRESSION: Successful removal of the right internal jugular vein tunneled catheter.
[2021-12-15] MEDS ORDERED: SODIUM CHLORIDE 0.9% 1000 ML 1,000 ML ONE (17:28)
--- NOTE | 2021-12-15 17:52 | XRay Report ---
CHEST - 1 VIEW INDICATION: ETT placement COMPARISON: 12/11/2021 FINDINGS: SUPPORT DEVICES: Endotracheal tube tip just below the level of the clavicles in satisfactory positio n. Dobbhoff tube tip projects below the [id number]. HEART: Stable cardiomediastinal silhouette. LUNGS/PLEURA: Minimal edema/atelectasis. No consolidation or pleural effusion. ADDITIONAL FINDINGS: None. IMPRESSION: Support devices as above. Signer Name: Justin Sims MD Signed: 12/15/2021 5:47 PM Workstation Name: [id number]
[2021-12-15] MEDS: fentaNYL DRIP Premix 2,000 MCG/100 ML BAG IV SCH (17:53)
[2021-12-15] MEDS: fentaNYL 100 MCG/2 ML INJ IV PRN (17:58)
[2021-12-15] MEDS ORDERED: DOBUTamine/D5W 500 MG/250 ML 500 MG/250 ML BAG IV SCH (18:00)
--- NOTE | 2021-12-15 19:03 | Procedure Note ---
Date of procedure: 12/15/21 Pre-op diagnosis: Septic Shock Post-op diagnosis: same Procedure: Left Femoral Central Line Placement Patient was evaluated and required Central line placement due to high pressor requirement Informed consent obtained from daughter, Kameron Chavarria, at the bedside. Consent signed, witnessed, and placed in the chart. A time-out was completed verifying correct patient, procedure, site, and positioning. Hand hygiene were performed immediately prior to the procedure and sterile technique was used throughout the procedure. The patient's left groin was prepped with chlorhexidine scrub then draped in a sterile fashion. 1% Lidocaine was used to anesthetize the surrounding skin area. Ultrasound was utilized to localize the left femoral vein without difficulty, then the vein was accessed and a triple lumen catheter was introduced using the Seldinger henrique hnique. The catheter threaded smoothly over the guidewire and advanced easily into the vein and brisk blood return was observed from each lumen. Each lumen were flushed and clamped, then the catheter was sutured in place, a Biopatch was placed at the insertion site, and covered with a sterile dressing. Patient tolerated the procedure well, no signs of any adverse reaction noted. CVC is okay to use. Total Time Spent with Patient (Minutes): 60 minutes Anesthesia: local Surgeon: JONNATHAN TATUM Estimated blood loss: minimal Condition: critical Disposition: ICU
--- NOTE | 2021-12-15 19:03 | Event Note ---
Date: 12/15/21 Patient quickly decompensated. Patient became more obtunded, MAP dropped in the 40s, SPO2 dropped in the low 70s. Patient's daughter, Kameron Chavarria, at the bedside. Patient's current condition and poor prognosis thoroughly discussed, including intubation and central line access placement. Patient's daughter agreed to intubation and central line placement. Code status was also addressed, she stated that she wants everything done for her mother. Patient remains a FULL code at this time. Patient was intubated by the printing pressman, patient is now stable on ventilatory support. Left femoral CVC successful placed. Several attempts at a left femoral arterial line with no success, guidewire would not thread. Patient is now on dobutamine and Levophed gtts, MAP improved in the 80s, mixed venous pending. Titrate Levophed gtt for MAP above 65. Patient's daughter updated by nursing staffs. Team will continue to follow with further update +CCT 60 minutes
[2021-12-15 20:01] LABS: ABG HCO3 21.4 mmol/L (20.0-26.0); ABG Methemoglobin 0.5 % (0.0-1.5); ABG Oxygen Saturation 99.6 % (95.0-99.0); ABG PCO2 32.1 mm Hg; ABG PH 7.442 pH Units (7.350-7.450)
[2021-12-15 20:10] LABS: ABG PO2 463.3 mm Hg (80.0-90.0); VBG PO2 > 258.0 (25.0-47.0)
[2021-12-15] MEDS: FAMOTIDINE 10 MG TAB FEEDTUBE SCH (21:06)
[2021-12-16] MEDS: NORepinephrine/NS 8 MG-250 ML 8 MG/250 ML INFUS..BTL IV SCH ×3 (01:59→16:18)
[2021-12-16 05:19] LABS: Hematocrit 29.4 % (30.3-42.9); Hemoglobin 9.6 gm/dl (10.1-14.3); Mean Corpuscular HGB Conc 33 % (30-34); Mean Corpuscular Volume 80 fl (79-97); Red Blood Count 3.69 M/mm3 (3.65-5.03); Red Cell Distribution Width 18.1 % (13.2-15.2)
[2021-12-16] MEDS ORDERED: SODIUM CHLORIDE 0.9% 1000 ML 1,000 ML IV ONE (05:42)
[2021-12-16 05:53] LABS: Calcium 8.3 mg/dL (8.4-10.2)
[2021-12-16 06:16] LABS: Total Cells Counted 100
[2021-12-16 06:17] LABS: Basophils % (Manual) 0 % (0.0-1.8); Eosinophils % (Manual) 0 % (0.0-4.3); Monocytes % (Manual) 0 % (0.0-7.3)
[2021-12-16 06:18] LABS: Anisocytosis 1+; Hypochromasia Few; Ovalocytes 1+
[2021-12-16 06:19] LABS: Platelet Estimate Consistent w Auto; Target Cells Few
[2021-12-16 06:24] LABS: Platelet Count 40 K/mm3 (140-440)
[2021-12-16] MEDS: DEXTROSE 50% IN WATER (25GM) 50 ML SYRINGE IV PRN (06:24)
[2021-12-16] MEDS: CALCIUM ACETATE 667 MG CAP FEEDTUBE SCH ×3 (08:48→20:45)
[2021-12-16] MEDS: SEVELAMER CARBONATE 800 MG TAB PO SCH ×2 (08:49→16:14)
[2021-12-16] MEDS: MIDODRINE 10 MG TAB FEEDTUBE SCH ×2 (08:51→16:14)
[2021-12-16] MEDS: ASPIRIN 81 MG TAB CHEW FEEDTUBE SCH (08:59)
[2021-12-16] MEDS: FAMOTIDINE 10 MG TAB FEEDTUBE SCH ×2 (08:59→21:06)
[2021-12-16] MEDS: fentaNYL DRIP Premix 2,000 MCG/100 ML BAG IV SCH ×2 (09:03→19:46)
[2021-12-16] MEDS: IPRATROPIUM/ALBUTEROL SULFATE 3 ML AMPUL.NEB IH SCH ×3 (09:03→19:33)
[2021-12-16] MEDS: BUDESONIDE 0.5 MG/2 ML NEBU IH SCH ×2 (09:03→19:33)
[2021-12-16] MEDS: VASOPRESSIN 20 UNIT in SODIUM CHLORIDE 0.9% 100 ML IV SCH ×2 (09:44→19:45)
--- NOTE | 2021-12-16 09:53 | Progress Note ---
Assessment and Plan Impression: * ESRD * s/p fall * hypotension * elevated troponin * type 2 DM * history of HTN * GPC bacteremia Plan: * maintain MAP>70, pressors prn * tolerated hd 12/13 * plan for HD TTHSAT if hemodynamically stable- plan for HD today with minimal UF given hypotension for solute/toxin removal, attempt to use AVF. If unable to run today, no emergent need for HD given lytes * renal diet, fluid restriction * strict i/os and daily lytes * uf as tolerated with hd * cardiac workup, plans for stress testing noted * note bacteremia- appreciate removal of PermCath. May need vascath if AVF not working, will decide prn if vascath is needed emergently. Note femoral triple lumen placed by primary team Subjective Date of service: 12/16/21 Principal diagnosis: hypotension Interval history: Had to be intubated since last visit, now on levophed and dobutamine gtt. FiO2 40% Objective - Exam Narrative Exam: Constitutional: ill appearing, intubated Head: NC/AT Neck: supple Lungs: coarse lung sounds CV: tachycardic Abdomen: soft, non-tender, bowel sounds present Back: nontender Extremities: no edema, pulses WNL Skin: intact Neuro: sedated - Vital Signs Vital signs: Vital Signs - 12hr 12/15/21 12/15/21 12/15/21 22:00 22:16 22:30 Temperature Pulse Rate 88 79 94 H Pulse Rate [ Anterior Bilateral Throughout] Respiratory 11 L 16 11 L Rate Respiratory Rate [Anterior Bilateral Throughout] Respiratory Rate [Right Hip ] Blood Pressure 175/74 169/70 169/70 O2 Sat by Pulse 100 100 100 Oximetry 12/15/21 12/15/21 12/15/21 22:46 23:00 23:05 Temperature Pulse Rate 78 85 84 Pulse Rate [ Anterior Bilateral Throughout] Respiratory 16 13 Rate Respiratory Rate [Anterior Bilateral Throughout] Respiratory Rate [Right Hip ] Blood Pressure 168/69 172/70 O2 Sat by Pulse 100 100 Oximetry 12/15/21 12/15/21 12/15/21 23:16 23:30 23:46 Temperature Pulse Rate 76 93 H 78 Pulse Rate [ Anterior Bilateral Throughout] Respiratory 16 20 16 Rate Respiratory Rate [Anterior Bilateral Throughout] Respiratory Rate [Right Hip ] Blood Pressure 172/70 172/70 166/68 O2 Sat by Pulse 100 100 100 Oximetry 12/16/21 12/16/21 12/16/21 00:00 00:05 00:06 Temperature 97.6 F Pulse Rate 79 79 78 Pulse Rate [ Anterior Bilateral Throughout] Respiratory 7 L 16 Rate Respiratory Rate [Anterior Bilateral Throughout] Respiratory 16 Rate [Right Hip ] Blood Pressure 152/66 152/66 152/66 O2 Sat by Pulse 100 100 100 Oximetry 12/16/21 12/16/21 12/16/21 00:16 00:30 00:46 Temperature Pulse Rate 82 78 86 Pulse Rate [ Anterior Bilateral Throughout] Respiratory 18 20 15 Rate Respiratory Rate [Anterior Bilateral Throughout] Respiratory Rate [Right Hip ] Blood Pressure 152/66 157/65 157/65 O2 Sat by Pulse 100 100 Oximetry 12/16/21 12/16/21 12/16/21 01:00 01:16 01:30 Temperature Pulse Rate 87 79 77 Pulse Rate [ Anterior Bilateral Throughout] Respiratory 14 22 18 Rate Respiratory Rate [Anterior Bilateral Throughout] Respiratory Rate [Right Hip ] Blood Pressure 142/60 142/60 123/52 O2 Sat by Pulse 100 100 100 Oximetry 12/16/21 12/16/21 12/16/21 01:46 02:00 02:16 Temperature Pulse Rate 84 79 81 Pulse Rate [ Anterior Bilateral Throughout] Respiratory 14 18 17 Rate Respiratory Rate [Anterior Bilateral Throughout] Respiratory Rate [Right Hip ] Blood Pressure 123/52 123/52 117/49 O2 Sat by Pulse 100 100 100 Oximetry 12/16/21 12/16/21 12/16/21 02:30 02:45 02:46 Temperature Pulse Rate 79 84 83 Pulse Rate [ Anterior Bilateral Throughout] Respiratory 11 L 24 Rate Respiratory Rate [Anterior Bilateral Throughout] Respiratory Rate [Right Hip ] Blood Pressure 126/54 126/54 O2 Sat by Pulse 100 100 100 Oximetry 12/16/21 12/16/21 12/16/21 03:00 03:16 03:30 Temperature Pulse Rate 84 76 82 Pulse Rate [ Anterior Bilateral Throughout] Respiratory 19 16 16 Rate Respiratory Rate [Anterior Bilateral Throughout] Respiratory Rate [Right Hip ] Blood Pressure 126/54 124/53 124/53 O2 Sat by Pulse 100 100 100 Oximetry 12/16/21 12/16/21 12/16/21 03:46 04:00 04:16 Temperature 98.3 F Pulse Rate 77 77 132 H Pulse Rate [ Anterior Bilateral Throughout] Respiratory 24 21 30 H Rate Respiratory Rate [Anterior Bilateral Throughout] Respiratory Rate [Right Hip ] Blood Pressure 114/54 130/52 130/52 O2 Sat by Pulse 100 100 100 Oximetry 12/16/21 12/16/21 12/16/21 04:30 04:46 05:00 Temperature Pulse Rate 121 H 120 H 118 H Pulse Rate [ Anterior Bilateral Throughout] Respiratory 17 25 H 18 Rate Respiratory Rate [Anterior Bilateral Throughout] Respiratory Rate [Right Hip ] Blood Pressure 130/52 130/52 140/59 O2 Sat by Pulse 100 100 100 Oximetry 12/16/21 12/16/21 12/16/21 05:16 05:30 05:46 Temperature Pulse Rate 127 H 116 H 132 H Pulse Rate [ Anterior Bilateral Throughout] Respiratory 12 36 H 16 Rate Respiratory Rate [Anterior Bilateral Throughout] Respiratory Rate [Right Hip ] Blood Pressure 140/59 153/102 119/65 O2 Sat by Pulse 100 100 100 Oximetry 12/16/21 12/16/21 12/16/21 06:00 06:16 06:30 Temperature Pulse Rate 124 H 119 H 116 H Pulse Rate [ Anterior Bilateral Throughout] Respiratory 18 18 13 Rate Respiratory Rate [Anterior Bilateral Throughout] Respiratory Rate [Right Hip ] Blood Pressure 119/65 135/55 135/55 O2 Sat by Pulse 100 100 100 Oximetry 12/16/21 12/16/21 12/16/21 06:46 06:51 09:03 Temperature Pulse Rate 109 H 109 H 125 H Pulse Rate [ 125 H Anterior Bilateral Throughout] Respiratory 17 Rate Respiratory 16 Rate [Anterior Bilateral Throughout] Respiratory Rate [Right Hip ] Blood Pressure 124/83 O2 Sat by Pulse 100 100 Oximetry - Lab 12/16/21 05:00 12/16/21 05:00 Most recent lab results ABG pH 7.442 pH Units (7.350-7.450) 12/15/21 19:50 ABG pCO2 32.1 mm Hg 12/15/21 19:50 ABG pO2 463.3 mm Hg (80.0-90.0) H 12/15/21 19:50 ABG HCO3 21.4 mmol/L (20.0-26.0) 12/15/21 19:50 ABG O2 Saturation 99.6 % (95.0-99.0) H 12/15/21 19:50 Calcium 8.3 mg/dL (8.4-10.2) L 12/16/21 05:00 Medications & Allergies - Medications Allergies/Adverse Reactions: Allergies No Known Allergies Allergy (Verified 12/11/21 22:19) Home Medications: Home Medications Medication Instructions Recorded Confirmed Last Taken Type Albuterol Sulfate [Proair 2 puff IH Q6HR PRN 11/23/21 12/14/21 Unknown History Digihaler] Calcium Acetate 2 tab PO TID 11/23/21 12/14/21 Unknown History Fluticasone/Umeclidin/Vilanter 1 each IH DAILY 11/23/21 12/14/21 Unknown History [Trelegy Ellipta 100-62.5-25] Furosemide [Lasix TAB] 40 mg PO QDAY 11/23/21 12/14/21 Unknown History Insulin Aspart (Nf) [NovoLOG 55 unit SQ TID 11/23/21 12/14/21 Unknown History Flexpen] Insulin Glargine [Lantus VIAL] 25 units SQ QHS 11/23/21 12/14/21 Unknown History Omeprazole 20 mg PO DAILY 11/23/21 12/14/21 Unknown History Spironolactone [Aldactone] 100 mg PO QDAY 11/23/21 12/14/21 Unknown History lisinopriL [Lisinopril] 20 mg PO BID 11/23/21 12/14/21 12/06/21 History 500 MG Docusate Sodium [Colace CAP] 100 mg PO BID PRN #60 capsule 11/24/21 12/14/21 Unknown Rx Aspirin EC [Halfprin EC] 81 mg PO DAILY 90 Days #90 tablet 11/26/21 12/14/21 Unknown Rx Aspirin [Adult Aspirin] 81 mg PO DAILY 90 Days #90 tab 11/26/21 12/14/21 Unknown Rx ISOSORBIDE MONOnitrate [Imdur ER] 60 mg PO QDAY 90 Days #90 tab 11/26/21 12/14/21 Unknown Rx Sevelamer Carbonate [Renvela] 800 mg PO TIDWM 90 Days #270 tab 11/26/21 12/14/21 Unknown Rx amLODIPine 10 mg PO DAILY 90 Days #90 tab 11/26/21 12/14/21 Unknown Rx carvediloL [Coreg] 25 mg PO BID 90 Days #180 tab 11/26/21 12/14/21 Unknown Rx Atorvastatin Calcium [Lipitor] 80 mg PO QHS 90 Days #90 tab 11/27/21 12/14/21 Unknown Rx levETIRAcetam [Keppra TAB] 500 mg PO 3XW 12/14/21 12/14/21 12/06/21 History 500 MG Active Medications: Generic Name Dose Route Start Last Admin Trade Name Freq PRN Reason Stop Dose Admin Acetaminophen 650 mg 12/13/21 23:00 12/13/21 23:18 Acetaminophen 650 Mg Rect Supp SC 650 mg Q4H PRN Administration Pain, Mild (1-3) Albuterol 2.5 mg 12/11/21 22:14 Albuterol 2.5 Mg/3 Ml Nebu IH Q6HR PRN Wheezing Albuterol/Ipratropium 1 ampul 12/14/21 08:00 12/16/21 09:03 Ipratropium/Albuterol Sulfate 3 Ml Ampul.Neb IH 1 ampul TIDRT KRISTA Administration Aspirin 81 mg 12/15/21 10:00 12/16/21 08:59 Aspirin 81 Mg Tab Chew FEEDTUBE 81 mg QDAY KRISTA Administration Atorvastatin Calcium 80 mg 12/15/21 22:00 12/15/21 21:06 Atorvastatin 40 Mg Tab FEEDTUBE 80 mg QHS KRISTA Administration Budesonide 0.5 mg 12/13/21 08:00 12/16/21 09:03 Budesonide 0.5 Mg/2 Ml Nebu IH 0.5 mg Q12HRT KRISTA Administration Calcium Acetate 1,334 mg 12/15/21 14:00 12/16/21 08:48 Calcium Acetate 667 Mg Cap FEEDTUBE 1,334 mg TID KRISTA Administration Dextrose 50 ml 12/11/21 22:23 12/16/21 06:24 Dextrose 50% In Water (25gm) 50 Ml Syringe IV 15 ml Q30MIN PRN Administration Hypoglycemia Protocol Famotidine 10 mg 12/15/21 22:00 12/16/21 08:59 Famotidine 10 Mg Tab FEEDTUBE 10 mg BID KRISTA Administration Fentanyl 50 mcg 12/15/21 17:19 12/15/21 17:58 Fentanyl 100 Mcg/2 Ml Inj IV 50 mcg Q10MIN PRN Administration ANALGESIA Sodium Chloride 100 mls @ 999 mls/hr 12/12/21 12:00 Nacl 0.9% IV ABEL PRN Hypotension NORepinephrine/NS 8 MG-250 ML 8 mg in 250 mls @ 3.75 mls/hr 12/14/21 23:00 12/16/21 08:45 Norepinephrine/Ns 8 Mg-250 Ml (Double Conc) IV 20 mcg/min TITRATE KRISTA 37.5 mls/hr Administration Protocol 2 MCG/MIN Dobutamine HCl/Dextrose 500 mg in 250 mls @ 8.835 mls/hr 12/15/21 18:00 12/15/21 19:05 Dobutrex Drip 500mg/D5w 250ml IV 5 mcg/kg/min DIRECT KRISTA 8.835 mls/hr Infusion Protocol 5 MCG/KG/MIN Fentanyl Citrate 2,000 mcg in 100 mls @ 2.945 mls/hr 12/15/21 18:00 12/16/21 09:03 Fentanyl Drip Premix IV 3 mcg/kg/hr TITR KRISTA 8.835 mls/hr Administration Protocol 1 MCG/KG/HR Sodium Chloride 1,000 mls @ 110 mls/hr 12/16/21 05:42 12/16/21 05:45 Nacl 0.9% 1000 Ml IV 12/16/21 14:47 110 mls/hr ONCE ONE Administration Vasopressin 20 unit/ Sodium 101 mls @ 9.09 mls/hr 12/16/21 10:00 12/16/21 09:44 Chloride IV 0.03 units/min TITR KRISTA 9.09 mls/hr Administration Protocol 0.03 UNITS/MIN Insulin Human Lispro 0 unit 12/15/21 12:00 12/15/21 23:40 Insulin Lispro 100 Unit/Ml SUB-Q Not Given Q6HR [facility] Protocol Levetiracetam 500 mg 12/16/21 18:00 Levetiracetam 500 Mg/5 Ml Oral Liqd FEEDTUBE TuThSa [facility] Midodrine 10 mg 12/15/21 12:00 12/16/21 08:51 Midodrine 10 Mg Tab FEEDTUBE 10 mg TID@0800,1200,1600 [facility] Administration Morphine Sulfate 2 mg 12/11/21 22:11 Morphine 4 Mg/1 Ml Inj IV Q5MIN PRN Chest Pain unrelieved by NTG Nitroglycerin 0.4 mg 12/11/21 22:11 Nitroglycerin 0.4 Mg Tab Subl SL Q5M PRN Chest Pain Sevelamer Carbonate 800 mg 12/12/21 08:00 12/16/21 08:49 Sevelamer Carbonate 800 Mg Tab PO 800 mg TIDWM KRISTA Administration Sodium Chloride 10 ml 12/11/21 22:11 12/16/21 08:59 Sodium Chloride 0.9% 10 Ml Flush Syringe IV 10 ml PRN PRN Administration LINE FLUSH Tramadol HCl 50 mg 12/15/21 11:00 12/15/21 11:10 Tramadol 50 Mg Tab FEEDTUBE 50 mg Q6H PRN Administration Pain, Moderate (4-6)
[2021-12-16 10:10] LABS: ABG Base Excess -2.9 mmol/L (-2.0-3.0); ABG Methemoglobin 0.6 % (0.0-1.5); ABG Oxygen Saturation 80.5 % (95.0-99.0); ABG PCO2 38.5 mm Hg; ABG PH 7.375 pH Units (7.350-7.450)
--- NOTE | 2021-12-16 10:25 | Electrocardiograph Report ---
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
[2021-12-16] MEDS ORDERED: LIPASE 10,500/PROTEASE 25,000/AMYLASE 43,750 (UNITS) DR CAP FEEDTUBE PRN (11:15)
[2021-12-16] MEDS ORDERED: SIMPLE SYRUP 15 ML FEEDTUBE PRN ×2 (11:15)
[2021-12-16] MEDS ORDERED: SODIUM BICARBONATE 325 MG TAB FEEDTUBE PRN (11:15)
--- NOTE | 2021-12-16 11:18 | Event Note ---
Date: 12/16/21 Patient has deteriorated since yesterday with increasing pressor requirement. Dialysis was able to use the left arm AV graft. Decided to cancel procedure. Can reassess AV graft with intervention to optimize flow once patient's acute issues have improved.
[2021-12-16 11:22] LABS: ABG Base Excess -0.3 mmol/L (-2.0-3.0); ABG HCO3 25.4 mmol/L (20.0-26.0); ABG Methemoglobin 0.6 % (0.0-1.5); ABG Oxygen Saturation 98.6 % (95.0-99.0); ABG PCO2 46.1 mm Hg; ABG PH 7.359 pH Units (7.350-7.450); ABG PO2 137.7 mm Hg (80.0-90.0)
--- NOTE | 2021-12-16 12:38 | Progress Note ---
Assessment and Plan Septic shock Bacteremia with gram-positive cocci End-stage renal disease on dialysis Acute toxic metabolic encephalopathy Non-ST elevation myocardial infarction A-Fib with RVR Hypertension Diabetes type 2 Anemia that is normocytic - stop Dobutamine - A-fib rate control per cardiology - AV graft working well for dialysis - RUExt dopplers negative for DVT - follow C&S report - wean vasopressors for target MAP > 65 mmHg - continue care as below otherwise; - Daily SAT and SBT assessment as tolerated - continue to wean supplemental oxygen for target O2 sat's > 90% acutely - VAP bundle addressed - continue lung protective strategies - continue bronchodilators with pulmonary hygiene per RT - wean per pulmonary driven protocols otherwise - continue HD/UF for toxin and volume clearance - avoid nephrotoxins, renally dose all medications - continue to avoid benzodiazepine's, reduce the possibility of delirium - complete AB's per ID rec's (On Vancomycin) - prn analgesia per CPOT score - Maintenance of sleep-wake cycle, avoid delirium - continue enteral nutritional support at goal rate as tolerated - G.I. & VTE prophylaxis - PT/OT/ROM exercises - continue mobility protocols for pressure ulcer prophylaxis - Monitor hemodynamics closely - continue other care per attending / other consultants - discharge planning ongoing concurrently .... Re-evaluate in am & prn CONDITION: CRITICAL PROGNOSIS: GUARDED CODE STATUS: FULL CODE The high probability of a clinically significant, sudden or life-threatening deterioration of the [respiratory, cardiovascular, renal & neurologic] system(s) required my full and direct attention, intervention and personal management. The aggregate critical care time was [36] minutes without overlap. Time includes spent on; [x] Data Review and interpretation [x] Patient assessment and monitoring of vital signs [x] Documentation [x] Medication orders and management Subjective Date of service: 12/16/21 Principal diagnosis: Septic shock ; Bacteremia; ESRD on dialysis; AMS; NSTEMI; HTN; DM II Interval history: Patient is seen today for: Septic shock ; gm +ve Bacteremia; ESRD on dialysis; AMS; NSTEMI; Hypertension; DM II Seen and examined at bedside; 24hour events reviewed; nursing and respiratory care staff consulted; no adverse overnight events reported to me; resting peacefully in bed; started on Dobutamine and Vasopressin overnight; HD/UF ongoing; infiltration noted at right forearm site; sedated; no seizure activity Objective Vital Signs - 12hr 12/16/21 12/16/21 12/16/21 00:46 01:00 01:16 Temperature Pulse Rate 86 87 79 Pulse Rate [ Anterior Bilateral Throughout] Pulse Rate [ From Monitor] Respiratory 15 14 22 Rate Respiratory Rate [Anterior Bilateral Throughout] Blood Pressure 157/65 142/60 142/60 O2 Sat by Pulse 100 100 Oximetry O2 Sat by Pulse Oximetry [ Anterior Bilateral Throughout] 12/16/21 12/16/21 12/16/21 01:30 01:46 02:00 Temperature Pulse Rate 77 84 79 Pulse Rate [ Anterior Bilateral Throughout] Pulse Rate [ From Monitor] Respiratory 18 14 18 Rate Respiratory Rate [Anterior Bilateral Throughout] Blood Pressure 123/52 123/52 123/52 O2 Sat by Pulse 100 100 100 Oximetry O2 Sat by Pulse Oximetry [ Anterior Bilateral Throughout] 12/16/21 12/16/21 12/16/21 02:16 02:30 02:45 Temperature Pulse Rate 81 79 84 Pulse Rate [ Anterior Bilateral Throughout] Pulse Rate [ From Monitor] Respiratory 17 11 L Rate Respiratory Rate [Anterior Bilateral Throughout] Blood Pressure 117/49 126/54 O2 Sat by Pulse 100 100 100 Oximetry O2 Sat by Pulse Oximetry [ Anterior Bilateral Throughout] 12/16/21 12/16/21 12/16/21 02:46 03:00 03:16 Temperature Pulse Rate 83 84 76 Pulse Rate [ Anterior Bilateral Throughout] Pulse Rate [ From Monitor] Respiratory 24 19 16 Rate Respiratory Rate [Anterior Bilateral Throughout] Blood Pressure 126/54 126/54 124/53 O2 Sat by Pulse 100 100 100 Oximetry O2 Sat by Pulse Oximetry [ Anterior Bilateral Throughout] 12/16/21 12/16/21 12/16/21 03:30 03:46 04:00 Temperature 98.3 F Pulse Rate 82 77 77 Pulse Rate [ Anterior Bilateral Throughout] Pulse Rate [ From Monitor] Respiratory 16 24 21 Rate Respiratory Rate [Anterior Bilateral Throughout] Blood Pressure 124/53 114/54 130/52 O2 Sat by Pulse 100 100 100 Oximetry O2 Sat by Pulse Oximetry [ Anterior Bilateral Throughout] 12/16/21 12/16/21 12/16/21 04:16 04:30 04:46 Temperature Pulse Rate 132 H 121 H 120 H Pulse Rate [ Anterior Bilateral Throughout] Pulse Rate [ From Monitor] Respiratory 30 H 17 25 H Rate Respiratory Rate [Anterior Bilateral Throughout] Blood Pressure 130/52 130/52 130/52 O2 Sat by Pulse 100 100 100 Oximetry O2 Sat by Pulse Oximetry [ Anterior Bilateral Throughout] 12/16/21 12/16/21 12/16/21 05:00 05:16 05:30 Temperature Pulse Rate 118 H 127 H 116 H Pulse Rate [ Anterior Bilateral Throughout] Pulse Rate [ From Monitor] Respiratory 18 12 36 H Rate Respiratory Rate [Anterior Bilateral Throughout] Blood Pressure 140/59 140/59 153/102 O2 Sat by Pulse 100 100 100 Oximetry O2 Sat by Pulse Oximetry [ Anterior Bilateral Throughout] 12/16/21 12/16/21 12/16/21 05:46 06:00 06:16 Temperature Pulse Rate 132 H 124 H 119 H Pulse Rate [ Anterior Bilateral Throughout] Pulse Rate [ From Monitor] Respiratory 16 18 18 Rate Respiratory Rate [Anterior Bilateral Throughout] Blood Pressure 119/65 119/65 135/55 O2 Sat by Pulse 100 100 100 Oximetry O2 Sat by Pulse Oximetry [ Anterior Bilateral Throughout] 12/16/21 12/16/21 12/16/21 06:30 06:46 06:51 Temperature Pulse Rate 116 H 109 H 109 H Pulse Rate [ Anterior Bilateral Throughout] Pulse Rate [ From Monitor] Respiratory 13 17 Rate Respiratory Rate [Anterior Bilateral Throughout] Blood Pressure 135/55 124/83 O2 Sat by Pulse 100 100 Oximetry O2 Sat by Pulse Oximetry [ Anterior Bilateral Throughout] 12/16/21 12/16/21 12/16/21 07:00 07:16 07:30 Temperature Pulse Rate 105 H 111 H 123 H Pulse Rate [ Anterior Bilateral Throughout] Pulse Rate [ From Monitor] Respiratory 15 16 16 Rate Respiratory Rate [Anterior Bilateral Throughout] Blood Pressure 124/83 124/58 124/58 O2 Sat by Pulse 100 100 100 Oximetry O2 Sat by Pulse Oximetry [ Anterior Bilateral Throughout] 12/16/21 12/16/21 12/16/21 07:46 08:00 08:10 Temperature 98.8 F Pulse Rate 114 H 124 H 110 H Pulse Rate [ Anterior Bilateral Throughout] Pulse Rate [ 110 H From Monitor] Respiratory 16 16 16 Rate Respiratory Rate [Anterior Bilateral Throughout] Blood Pressure 125/63 125/63 O2 Sat by Pulse 100 100 100 Oximetry O2 Sat by Pulse Oximetry [ Anterior Bilateral Throughout] 12/16/21 12/16/21 12/16/21 08:16 08:30 08:46 Temperature Pulse Rate 105 H 147 H 110 H Pulse Rate [ Anterior Bilateral Throughout] Pulse Rate [ From Monitor] Respiratory 16 16 16 Rate Respiratory Rate [Anterior Bilateral Throughout] Blood Pressure 111/48 111/48 120/79 O2 Sat by Pulse 100 100 100 Oximetry O2 Sat by Pulse Oximetry [ Anterior Bilateral Throughout] 12/16/21 12/16/21 12/16/21 09:00 09:03 09:16 Temperature Pulse Rate 105 H 125 H 120 H Pulse Rate [ 125 H Anterior Bilateral Throughout] Pulse Rate [ From Monitor] Respiratory 16 16 Rate Respiratory 16 Rate [Anterior Bilateral Throughout] Blood Pressure 120/79 113/61 O2 Sat by Pulse 100 100 100 Oximetry O2 Sat by Pulse Oximetry [ Anterior Bilateral Throughout] 12/16/21 12/16/21 12/16/21 09:30 09:46 10:00 Temperature Pulse Rate 133 H 122 H 128 H Pulse Rate [ Anterior Bilateral Throughout] Pulse Rate [ From Monitor] Respiratory 16 16 16 Rate Respiratory Rate [Anterior Bilateral Throughout] Blood Pressure 118/61 113/46 129/74 O2 Sat by Pulse 100 100 100 Oximetry O2 Sat by Pulse Oximetry [ Anterior Bilateral Throughout] 12/16/21 12/16/21 12/16/21 10:16 10:45 11:00 Temperature 98.8 F Pulse Rate 111 H 99 H 91 H Pulse Rate [ Anterior Bilateral Throughout] Pulse Rate [ From Monitor] Respiratory 16 16 Rate Respiratory Rate [Anterior Bilateral Throughout] Blood Pressure 129/74 142/98 132/74 O2 Sat by Pulse 100 Oximetry O2 Sat by Pulse 100 Oximetry [ Anterior Bilateral Throughout] 12/16/21 12/16/21 12/16/21 11:15 11:30 11:32 Temperature Pulse Rate 99 H 80 110 H Pulse Rate [ Anterior Bilateral Throughout] Pulse Rate [ From Monitor] Respiratory Rate Respiratory Rate [Anterior Bilateral Throughout] Blood Pressure 124/68 122/58 122/58 O2 Sat by Pulse 100 Oximetry O2 Sat by Pulse Oximetry [ Anterior Bilateral Throughout] 12/16/21 12/16/21 11:45 12:00 Temperature Pulse Rate 100 H 93 H Pulse Rate [ Anterior Bilateral Throughout] Pulse Rate [ From Monitor] Respiratory Rate Respiratory Rate [Anterior Bilateral Throughout] Blood Pressure 131/50 140/83 O2 Sat by Pulse Oximetry O2 Sat by Pulse Oximetry [ Anterior Bilateral Throughout] Constitutional: no acute distress (sedated), other (elderly female with mildly increrased respiratory effort at rest) Eyes: non-icteric ENT: oropharynx moist, other (ETT 23 cm JUSTIN) Neck: supple, no JVD Effort: mildly labored Ascultation: Bilateral: rhonchi Percussion: Bilateral: not dull Cardiovascular: regular rate and rhythm Gastrointestinal: normoactive bowel sounds, soft, non-tender, non-distended (protuberant) Integumentary: other (Left upper extremity AV graft; right forearm blisters (closed) and induration; no erythema or pus) Extremities: no cyanosis, pulses normal, edema (right upper extremity) Neurologic: non-focal exam (grossly), pupils equal and round, unable to assess Psychiatric: other (unable to assess re: AMS) CBC and BMP: 12/16/21 05:00 12/16/21 05:00 ABG, PT/INR, D-dimer: ABG ABG pH 7.359 pH Units (7.350-7.450) 12/16/21 11:06 ABG pCO2 46.1 mm Hg 12/16/21 11:06 ABG pO2 137.7 mm Hg (80.0-90.0) H 12/16/21 11:06 ABG O2 Saturation 98.6 % (95.0-99.0) 12/16/21 11:06 Abnormal lab findings: Abnormal Labs 12/11/21 12/11/21 12/12/21 14:52 15:40 04:43 WBC RBC 3.57 L Hgb 9.4 L Hct 29.5 L MCH 26 L 27 L RDW 17.8 H 17.9 H Plt Count 119 L 110 L Lymph % (Auto) 4.0 L Lymph # (Auto) 0.3 L Seg Neutrophils % 90.0 H Seg Neuts % (Manual) Lymphocytes % (Manual) Monocytes % (Manual) Seg Neutrophils # Man Lymphocytes # (Manual) ABG pO2 ABG O2 Saturation ABG Base Excess ABG Hemoglobin VBG pO2 Oxyhemoglobin Sodium Potassium Chloride Carbon Dioxide 18 L BUN 76 H Creatinine 9.2 H Glucose POC Glucose Lactic Acid Calcium 7.7 L Alkaline Phosphatase 237 H Troponin T 0.168 H* C-Reactive Protein Albumin 3.6 L LDL Cholesterol Direct 16 L 12/12/21 12/12/21 12/12/21 04:43 04:43 08:49 WBC RBC Hgb Hct MCH RDW Plt Count Lymph % (Auto) Lymph # (Auto) Seg Neutrophils % Seg Neuts % (Manual) Lymphocytes % (Manual) Monocytes % (Manual) Seg Neutrophils # Man Lymphocytes # (Manual) ABG pO2 ABG O2 Saturation ABG Base Excess ABG Hemoglobin VBG pO2 Oxyhemoglobin Sodium 136 L Potassium Chloride 96.0 L Carbon Dioxide BUN 85 H Creatinine 9.6 H Glucose 57 L POC Glucose 47 L Lactic Acid Calcium 7.8 L Alkaline Phosphatase Troponin T 0.175 H* C-Reactive Protein Albumin LDL Cholesterol Direct 12/12/21 12/13/21 12/13/21 11:12 07:30 07:30 WBC RBC Hgb 9.7 L Hct 30.0 L MCH 27 L RDW 18.0 H Plt Count 99 L Lymph % (Auto) 4.8 L Lymph # (Auto) 0.3 L Seg Neutrophils % 88.2 H Seg Neuts % (Manual) Lymphocytes % (Manual) Monocytes % (Manual) Seg Neutrophils # Man Lymphocytes # (Manual) ABG pO2 ABG O2 Saturation ABG Base Excess ABG Hemoglobin VBG pO2 Oxyhemoglobin Sodium Potassium 5.1 H Chloride 97.8 L Carbon Dioxide 16 L BUN 92 H Creatinine 10.6 H Glucose 121 H POC Glucose 64 L Lactic Acid Calcium 7.6 L Alkaline Phosphatase Troponin T C-Reactive Protein Albumin LDL Cholesterol Direct 12/13/21 12/13/21 12/13/21 08:06 11:32 16:59 WBC RBC Hgb Hct MCH RDW Plt Count Lymph % (Auto) Lymph # (Auto) Seg Neutrophils % Seg Neuts % (Manual) Lymphocytes % (Manual) Monocytes % (Manual) Seg Neutrophils # Man Lymphocytes # (Manual) ABG pO2 ABG O2 Saturation ABG Base Excess ABG Hemoglobin VBG pO2 Oxyhemoglobin Sodium Potassium Chloride Carbon Dioxide BUN Creatinine Glucose POC Glucose 118 H 128 H 130 H Lactic Acid Calcium Alkaline Phosphatase Troponin T C-Reactive Protein Albumin LDL Cholesterol Direct 12/13/21 12/14/21 12/14/21 20:16 11:10 11:10 WBC RBC Hgb 9.9 L Hct MCH 27 L RDW 18.1 H Plt Count 82 L Lymph % (Auto) 5.8 L Lymph # (Auto) 0.4 L Seg Neutrophils % 88.3 H Seg Neuts % (Manual) Lymphocytes % (Manual) Monocytes % (Manual) Seg Neutrophils # Man Lymphocytes # (Manual) ABG pO2 ABG O2 Saturation ABG Base Excess ABG Hemoglobin VBG pO2 Oxyhemoglobin Sodium Potassium Chloride Carbon Dioxide 21 L BUN 57 H Creatinine 7.1 H Glucose 105 H POC Glucose 113 H Lactic Acid Calcium Alkaline Phosphatase Troponin T C-Reactive Protein Albumin LDL Cholesterol Direct 12/14/21 12/14/21 12/15/21 11:46 16:41 04:11 WBC RBC Hgb 9.9 L Hct 30.0 L MCH 27 L RDW 18.4 H Plt Count 57 L Lymph % (Auto) Lymph # (Auto) Seg Neutrophils % Seg Neuts % (Manual) Lymphocytes % (Manual) 9.0 L Monocytes % (Manual) 10.0 H Seg Neutrophils # Man Lymphocytes # (Manual) 0.6 L ABG pO2 ABG O2 Saturation ABG Base Excess ABG Hemoglobin VBG pO2 Oxyhemoglobin Sodium Potassium Chloride Carbon Dioxide BUN Creatinine Glucose POC Glucose 108 H 111 H Lactic Acid Calcium Alkaline Phosphatase Troponin T C-Reactive Protein Albumin LDL Cholesterol Direct 12/15/21 12/15/21 12/15/21 04:11 08:48 10:02 WBC RBC Hgb Hct MCH RDW Plt Count Lymph % (Auto) Lymph # (Auto) Seg Neutrophils % Seg Neuts % (Manual) Lymphocytes % (Manual) Monocytes % (Manual) Seg Neutrophils # Man Lymphocytes # (Manual) ABG pO2 ABG O2 Saturation ABG Base Excess ABG Hemoglobin VBG pO2 Oxyhemoglobin Sodium Potassium Chloride Carbon Dioxide 19 L BUN 68 H Creatinine 7.6 H Glucose POC Glucose 68 L 65 L Lactic Acid Calcium 8.1 L Alkaline Phosphatase Troponin T C-Reactive Protein Albumin LDL Cholesterol Direct 12/15/21 12/15/21 12/15/21 10:20 10:51 14:40 WBC RBC Hgb Hct MCH RDW Plt Count Lymph % (Auto) Lymph # (Auto) Seg Neutrophils % Seg Neuts % (Manual) Lymphocytes % (Manual) Monocytes % (Manual) Seg Neutrophils # Man Lymphocytes # (Manual) ABG pO2 ABG O2 Saturation ABG Base Excess ABG Hemoglobin VBG pO2 Oxyhemoglobin Sodium Potassium Chloride Carbon Dioxide BUN Creatinine Glucose POC Glucose 59 L 60 L Lactic Acid 2.50 H* Calcium Alkaline Phosphatase Troponin T C-Reactive Protein Albumin LDL Cholesterol Direct 12/15/21 12/15/21 12/16/21 14:40 19:50 05:00 WBC 12.4 H RBC Hgb 9.6 L Hct 29.4 L MCH 26 L RDW 18.1 H Plt Count 40 L Lymph % (Auto) Lymph # (Auto) Seg Neutrophils % Seg Neuts % (Manual) 95.0 H Lymphocytes % (Manual) 5.0 L Monocytes % (Manual) Seg Neutrophils # Man 11.8 H Lymphocytes # (Manual) 0.6 L ABG pO2 463.3 H ABG O2 Saturation 99.6 H ABG Base Excess ABG Hemoglobin 10.9 L VBG pO2 > 258.0 H Oxyhemoglobin Sodium Potassium Chloride Carbon Dioxide BUN Creatinine Glucose POC Glucose Lactic Acid Calcium Alkaline Phosphatase Troponin T C-Reactive Protein 38.50 H Albumin LDL Cholesterol Direct 12/16/21 12/16/21 12/16/21 05:00 06:15 09:58 WBC RBC Hgb Hct MCH RDW Plt Count Lymph % (Auto) Lymph # (Auto) Seg Neutrophils % Seg Neuts % (Manual) Lymphocytes % (Manual) Monocytes % (Manual) Seg Neutrophils # Man Lymphocytes # (Manual) ABG pO2 48.0 L ABG O2 Saturation 80.5 L ABG Base Excess -2.9 L ABG Hemoglobin 11.2 L VBG pO2 Oxyhemoglobin 78.8 L Sodium Potassium Chloride Carbon Dioxide BUN 75 H Creatinine 7.7 H Glucose POC Glucose 67 L Lactic Acid Calcium 8.3 L Alkaline Phosphatase Troponin T C-Reactive Protein Albumin LDL Cholesterol Direct 12/16/21 11:06 WBC RBC Hgb Hct MCH RDW Plt Count Lymph % (Auto) Lymph # (Auto) Seg Neutrophils % Seg Neuts % (Manual) Lymphocytes % (Manual) Monocytes % (Manual) Seg Neutrophils # Man Lymphocytes # (Manual) ABG pO2 137.7 H ABG O2 Saturation ABG Base Excess ABG Hemoglobin 9.9 L VBG pO2 Oxyhemoglobin Sodium Potassium Chloride Carbon Dioxide BUN Creatinine Glucose POC Glucose Lactic Acid Calcium Alkaline Phosphatase Troponin T C-Reactive Protein Albumin LDL Cholesterol Direct Chest x-ray: image reviewed (ETT in good position) Allied health notes reviewed: nursing
--- NOTE | 2021-12-16 13:51 | Progress Note ---
Assessment and Plan - Patient Problems (1) Syncope Current Visit: Yes Status: Acute Plan to address problem: Patient admitted with episode of transient dizziness causing a fall which resulted in right hip pain. She has end-stage renal disease on hemodialysis, had missed at least 1 dialysis session prior to admission. Recently relocated here from [place]. Echocardiogram done in this hospital on a prior admission 2 weeks ago showed a moderate severity cardiomyopathy, ejection fraction 35 to 40%. The etiology of her cardiomyopathy is not known at this time, we do not have her records from [place] for review. Hospital course is now complicated by development of sepsis, with four positive blood cultures. Suspected source is the indwelling Vas-Cath. We will order a repeat transthoracic echo, to evaluate for valvular vegetations. Subjective Date of service: 12/16/21 Principal diagnosis: Septic shock ; Bacteremia; ESRD on dialysis; AMS; NSTEMI; HTN; DM II Interval history: Events as above, patient is currently on the vent following episode of respiratory failure. The Vas-Cath was removed due to ongoing bacterial sepsis. Currently receiving hemodialysis via an AV fistula. Objective Vital Signs Temp Pulse Pulse Pulse Resp Resp Resp 12/16/21 13:30 87 12/16/21 13:16 117 H 16 12/16/21 13:15 98 H 12/16/21 13:00 106 H 16 12/16/21 12:46 108 H 19 12/16/21 12:45 102 H 12/16/21 12:30 118 H 16 12/16/21 12:16 98 H 16 12/16/21 12:15 90 12/16/21 12:00 105 H 16 12/16/21 11:46 114 H 12/16/21 11:45 100 H 12/16/21 11:32 110 H 12/16/21 11:30 114 H 16 12/16/21 11:16 113 H 17 12/16/21 11:15 99 H 12/16/21 11:00 107 H 17 12/16/21 10:46 113 H 12/16/21 10:45 98.8 F 99 H 16 12/16/21 10:30 126 H 16 12/16/21 10:16 111 H 16 12/16/21 10:00 128 H 16 12/16/21 09:46 122 H 16 12/16/21 09:30 133 H 16 12/16/21 09:16 120 H 16 12/16/21 09:03 125 H 125 H 16 12/16/21 09:00 105 H 16 12/16/21 08:46 110 H 16 12/16/21 08:30 147 H 16 12/16/21 08:16 105 H 16 12/16/21 08:10 110 H 110 H 16 12/16/21 08:00 98.8 F 124 H 16 12/16/21 07:46 114 H 16 12/16/21 07:30 123 H 16 12/16/21 07:16 111 H 16 12/16/21 07:00 105 H 15 12/16/21 06:51 109 H 12/16/21 06:46 109 H 17 12/16/21 06:30 116 H 13 12/16/21 06:16 119 H 18 12/16/21 06:00 124 H 18 12/16/21 05:46 132 H 16 12/16/21 05:30 116 H 36 H 12/16/21 05:16 127 H 12 12/16/21 05:00 118 H 18 12/16/21 04:46 120 H 25 H 12/16/21 04:30 121 H 17 12/16/21 04:16 132 H 30 H 12/16/21 04:00 98.3 F 77 21 12/16/21 03:46 77 24 12/16/21 03:30 82 16 12/16/21 03:16 76 16 12/16/21 03:00 84 19 12/16/21 02:46 83 24 12/16/21 02:45 84 12/16/21 02:30 79 11 L 12/16/21 02:16 81 17 12/16/21 02:00 79 18 12/16/21 01:46 84 14 12/16/21 01:30 77 18 12/16/21 01:16 79 22 12/16/21 01:00 87 14 12/16/21 00:46 86 15 12/16/21 00:30 78 20 12/16/21 00:16 82 18 12/16/21 00:06 78 16 12/16/21 00:05 79 03 00:00 97.6 F 79 7 L 16 12/15/21 23:46 78 16 12/15/21 23:30 93 H 20 12/15/21 23:16 76 16 12/15/21 23:05 84 12/15/21 23:00 85 13 12/15/21 22:46 78 16 12/15/21 22:30 94 H 11 L 12/15/21 22:16 79 16 12/15/21 22:00 88 11 L 12/15/21 21:46 79 17 12/15/21 21:30 87 14 12/15/21 21:16 83 16 12/15/21 21:00 84 16 12/15/21 20:58 16 12/15/21 20:49 82 12/15/21 20:46 81 18 12/15/21 20:30 78 20 12/15/21 20:16 78 76 21 20 12/15/21 20:00 97.6 F 75 20 12/15/21 19:46 81 18 12/15/21 19:30 83 21 12/15/21 19:16 89 20 12/15/21 19:05 84 12/15/21 19:00 87 12 12/15/21 18:46 85 20 12/15/21 18:30 80 20 12/15/21 18:16 77 22 12/15/21 18:00 96 H 15 12/15/21 17:48 83 19 12/15/21 17:31 80 20 12/15/21 17:25 94 H 12/15/21 17:15 85 11 L 12/15/21 17:01 79 23 12/15/21 16:51 76 15 12/15/21 16:41 82 12 12/15/21 16:31 85 22 12/15/21 16:21 77 9 L 12/15/21 16:11 82 88 12 12/15/21 16:09 98.4 F 12/15/21 16:00 83 14 12/15/21 15:51 81 15 12/15/21 15:41 76 11 L 12/15/21 15:30 79 10 L 12/15/21 15:21 80 10 L 12/15/21 15:11 78 13 12/15/21 15:00 80 12 12/15/21 14:56 82 12 12/15/21 14:51 85 13 12/15/21 14:41 77 12 12/15/21 14:31 75 11 L 12/15/21 14:21 75 10 L 12/15/21 14:11 75 12 12/15/21 14:00 98.4 F 80 13 12/15/21 13:51 83 16 BP Pulse Ox Pulse Ox 12/16/21 13:30 112/46 12/16/21 13:16 148/111 100 12/16/21 13:15 149/97 12/16/21 13:00 126/67 100 12/16/21 12:46 132/64 100 12/16/21 12:45 126/67 12/16/21 12:30 132/64 100 12/16/21 12:16 140/83 100 12/16/21 12:15 132/64 12/16/21 12:00 140/83 100 12/16/21 11:46 131/50 100 12/16/21 11:45 131/50 12/16/21 11:32 122/58 100 12/16/21 11:30 124/68 100 12/16/21 11:16 124/68 100 12/16/21 11:15 124/68 12/16/21 11:00 132/74 99 12/16/21 10:46 158/117 100 12/16/21 10:45 142/98 100 12/16/21 10:30 158/117 100 12/16/21 10:16 129/74 100 12/16/21 10:00 129/74 100 12/16/21 09:46 113/46 100 12/16/21 09:30 118/61 100 12/16/21 09:16 113/61 100 12/16/21 09:03 100 12/16/21 09:00 120/79 100 12/16/21 08:46 120/79 100 12/16/21 08:30 111/48 100 12/16/21 08:16 111/48 100 12/16/21 08:10 100 12/16/21 08:00 125/63 100 12/16/21 07:46 125/63 100 12/16/21 07:30 124/58 100 12/16/21 07:16 124/58 100 12/16/21 07:00 124/83 100 12/16/21 06:51 05 06:46 124/83 100 12/16/21 06:30 135/55 100 12/16/21 06:16 135/55 100 05 06:00 119/65 100 05 05:46 119/65 100 05 05:30 153/102 100 05 05:16 140/59 100 05 05:00 140/59 100 12/16/21 04:46 130/52 100 05 04:30 130/52 100 05 04:16 130/52 100 05 04:00 130/52 100 05 03:46 114/54 100 05 03:30 124/53 100 05 03:16 124/53 100 05 03:00 126/54 100 05 02:46 126/54 100 05 02:45 100 12/16/21 02:30 126/54 100 05 02:16 117/49 100 05 02:00 123/52 100 05 01:46 123/52 100 05 01:30 123/52 100 12/16/21 01:16 142/60 100 05 01:00 142/60 100 05 00:46 157/65 05 00:30 157/65 100 05 00:16 152/66 100 12/16/21 00:06 152/66 100 12/16/21 00:05 152/66 100 05 00:00 152/66 100 0502 23:46 166/68 100 05 23:30 172/70 100 0502 23:16 172/70 100 05 23:05 05 23:00 172/70 100 05 22:46 168/69 100 0502 22:30 169/70 100 0502 22:16 169/70 100 05 22:00 175/74 100 05 21:46 175/74 100 05/02 21:30 175/74 100 0502 21:16 165/71 100 05 21:00 167/72 100 0510/07 20:58 100 05/02/22 20:49 100 12/15/21 20:46 167/72 94 12/15/21 20:30 143/71 95 12/15/21 20:16 182/72 97 12/15/21 20:00 159/63 100 12/15/21 19:46 159/81 100 12/15/21 19:30 140/83 100 12/15/21 19:16 140/83 100 12/15/21 19:05 12/15/21 19:00 175/67 100 12/15/21 18:46 175/67 100 12/15/21 18:30 180/72 94 12/15/21 18:16 180/72 92 12/15/21 18:00 80 L 12/15/21 17:48 90 12/15/21 17:31 100/52 100 12/15/21 17:25 100/52 100 12/15/21 17:15 104/68 67 L 12/15/21 17:01 87/51 95 12/15/21 16:51 98/43 100 12/15/21 16:41 98/43 100 12/15/21 16:31 98/43 100 12/15/21 16:21 98/43 97 12/15/21 16:11 98/43 100 12/15/21 16:09 12/15/21 16:00 98/43 97 12/15/21 15:51 88/38 99 12/15/21 15:41 90/41 98 12/15/21 15:30 103/37 100 12/15/21 15:21 95/44 99 12/15/21 15:11 95/44 100 12/15/21 15:00 95/44 100 12/15/21 14:56 12/15/21 14:51 102/39 98 12/15/21 14:41 83/38 99 12/15/21 14:31 105/39 99 12/15/21 14:21 105/39 98 12/15/21 14:11 105/39 99 12/15/21 14:00 105/39 100 12/15/21 13:51 98/40 100 - Physical Examination General: Other (Sedated, on the vent) HEENT: Positive: PERRL Neck: Positive: neck supple Cardiac: Positive: Reg Rate and Rhythm Lungs: Positive: Decreased Breath Sounds Neuro: Positive: Other (Sedated, on the vent) Abdomen: Positive: Soft Skin: Positive: Clear Extremities: Absent: edema - Labs and Meds CBC 12/16/21 Range/Units 05:00 WBC 12.4 H (4.5-11.0) K/mm3 RBC 3.69 (3.65-5.03) M/mm3 Hgb 9.6 L (10.1-14.3) gm/dl Hct 29.4 L (30.3-42.9) % Plt Count 40 L (140-440) K/mm3 Comprehensive Metabolic Panel 12/16/21 Range/Units 05:00 Sodium 138 (137-145) mmol/L Potassium 4.0 (3.6-5.0) mmol/L Chloride 99.0 (98-107) mmol/L Carbon Dioxide 22 (22-30) mmol/L BUN 75 H (7-17) mg/dL Creatinine 7.7 H (0.6-1.2) mg/dL Glucose 91 (65-100) mg/dL Calcium 8.3 L (8.4-10.2) mg/dL - Allied health notes Allied health notes reviewed: nursing
[2021-12-16] MEDS ORDERED: MINERAL OIL/PETROLATUM, WHITE OPHTH OINT 3.5 GM OU PRN (14:10)
[2021-12-16] MEDS ORDERED: LIP THERAPY VASELINE TP PRN (14:30)
--- NOTE | 2021-12-16 14:57 | Progress Note ---
Assessment and Plan Cultures: Blood culture group B strep Blood culture 12/16/2021 pending A/P: 66-year-old female past medical history hypertension, ESRD on HD now with: #Group B strep bacteremia: Source possibly from dialysis #ESRD on HD: Renally dose antibiotics Recs: -Vancomycin goal trough 10-20 -Repeat blood cultures ordered for a.m. labs -Check TTE -Follow-up repeat blood cultures Thank you for the consult, we will continue to follow. Tien Shelby MD [facility] O: [phone] F: [phone] Subjective Date of service: 12/16/21 Principal diagnosis: Septic shock ; Bacteremia; ESRD on dialysis; AMS; NSTEMI; HTN; DM II Interval history: Afebrile, white count 12.4 which is slightly higher today. Blood culture with group B strep repeat cultures pending. CXR: No acute change, support is in place. Objective - Exam Narrative Exam: Physical Exam: Constitutional: Alert, cooperative. No acute distress Head, Ears, Nose: Normocephalic, atraumatic. External ears, nose normal Eyes: Conjunctivae/corneas clear. No icterus. No ptosis. Neck: Supple, no meningeal signs Oral: dentition fair, no thrush Cardiovascular: S1, S2 normal. Respiratory: Good air entry, clear to auscultation bilaterally GI: Soft, non-tender; bowel sounds normal. No peritoneal signs. Musculoskeletal: No pedal edema, no cyanosis. Skin: No rash or abscess Hem/Lymphatic: No palpable cervical or supraclavicular nodes. No lymphangitis Psych: Mood ok. Affect normal Neurological: Awake, alert, oriented. No gross abnormality - Constitutional Vitals: Vital Signs Temp Pulse Resp BP Pulse Ox 98.8 F 87 16 112/46 100 12/16/21 10:45 12/16/21 13:30 12/16/21 13:16 12/16/21 13:30 12/16/21 13:16 Temperature -Last 24 Hours Temperature 98.8 F Temperature 98.8 F Temperature 98.3 F Temperature 97.6 F Temperature 97.6 F Temperature 98.4 F - Labs CBC & Chem 7: 12/16/21 05:00 12/16/21 05:00 Labs: Abnormal lab results 12/15/21 12/15/21 12/15/21 Range/Units 14:40 14:40 19:50 WBC (4.5-11.0) K/mm3 Hgb (10.1-14.3) gm/dl Hct (30.3-42.9) % MCH (28-32) pg RDW (13.2-15.2) % Plt Count (140-440) K/mm3 Seg Neuts % (Manual) (40.0-70.0) % Lymphocytes % (Manual) (13.4-35.0) % Seg Neutrophils # Man (1.8-7.7) K/mm3 Lymphocytes # (Manual) (1.2-5.4) K/mm3 ABG pO2 463.3 H (80.0-90.0) mm Hg ABG O2 Saturation 99.6 H (95.0-99.0) % ABG Base Excess (-2.0-3.0) mmol/L ABG Hemoglobin 10.9 L (12.0-16.0) gm/dl VBG pO2 > 258.0 H (25.0-47.0) Oxyhemoglobin (95.0-99.0) % BUN (7-17) mg/dL Creatinine (0.6-1.2) mg/dL POC Glucose (70-105) mg/dL Lactic Acid 2.50 H* (0.7-2.0) mmol/L Calcium (8.4-10.2) mg/dL C-Reactive Protein 38.50 H (0.00-1.30) mg/dL 12/16/21 12/16/21 12/16/21 Range/Units 05:00 05:00 06:15 WBC 12.4 H (4.5-11.0) K/mm3 Hgb 9.6 L (10.1-14.3) gm/dl Hct 29.4 L (30.3-42.9) % MCH 26 L (28-32) pg RDW 18.1 H (13.2-15.2) % Plt Count 40 L (140-440) K/mm3 Seg Neuts % (Manual) 95.0 H (40.0-70.0) % Lymphocytes % (Manual) 5.0 L (13.4-35.0) % Seg Neutrophils # Man 11.8 H (1.8-7.7) K/mm3 Lymphocytes # (Manual) 0.6 L (1.2-5.4) K/mm3 ABG pO2 (80.0-90.0) mm Hg ABG O2 Saturation (95.0-99.0) % ABG Base Excess (-2.0-3.0) mmol/L ABG Hemoglobin (12.0-16.0) gm/dl VBG pO2 (25.0-47.0) Oxyhemoglobin (95.0-99.0) % BUN 75 H (7-17) mg/dL Creatinine 7.7 H (0.6-1.2) mg/dL POC Glucose 67 L (70-105) mg/dL Lactic Acid (0.7-2.0) mmol/L Calcium 8.3 L (8.4-10.2) mg/dL C-Reactive Protein (0.00-1.30) mg/dL 12/16/21 12/16/21 Range/Units 09:58 11:06 WBC (4.5-11.0) K/mm3 Hgb (10.1-14.3) gm/dl Hct (30.3-42.9) % MCH (28-32) pg RDW (13.2-15.2) % Plt Count (140-440) K/mm3 Seg Neuts % (Manual) (40.0-70.0) % Lymphocytes % (Manual) (13.4-35.0) % Seg Neutrophils # Man (1.8-7.7) K/mm3 Lymphocytes # (Manual) (1.2-5.4) K/mm3 ABG pO2 48.0 L 137.7 H (80.0-90.0) mm Hg ABG O2 Saturation 80.5 L (95.0-99.0) % ABG Base Excess -2.9 L (-2.0-3.0) mmol/L ABG Hemoglobin 11.2 L 9.9 L (12.0-16.0) gm/dl VBG pO2 (25.0-47.0) Oxyhemoglobin 78.8 L (95.0-99.0) % BUN (7-17) mg/dL Creatinine (0.6-1.2) mg/dL POC Glucose (70-105) mg/dL Lactic Acid (0.7-2.0) mmol/L Calcium (8.4-10.2) mg/dL C-Reactive Protein (0.00-1.30) mg/dL
[2021-12-16] MEDS: cefTRIAXone/NS 2 GM/100 ML 2 GM/100 ML BAG IV SCH (16:15)
--- NOTE | 2021-12-16 16:25 | Progress Note ---
Assessment and Plan Assessment and plan: This is a 66-year-old female with HTN, [place] (2007), seizure disorder, CVA (2007), CHF, CAD, ESRD on HD, GERD admitted with presyncope however now with beta- hemolytic Streptococcus group B bacteremia, sepsis, acute proximal respiratory failure Neuro: Acute metabolic encephalopathy, h/o seizure disorder and 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 -Sedated with fentanyl -RASS goal 0 to -1 -Avoid delirium -Reorientation as needed -Maintain sleep-wake cycle -Aspiration/seizure precautions -Keppra -As needed analgesia -CT head showed small quantity of increased attenuation in the central debora likely related to calcification and hemorrhage not favored, venous collaterals seen within the base of the neck and patient has a left brachiocephalic stent, nonspecific prominent left supraclavicular lymph node, multinodular nodular thyroid gland -Neurology consulted, appreciate recommendations Cardiac: NSTEMI, severe cardiomyopathy with reduced EF, h/o HTN, AZ, CAD with AZ (2007) s/p PCI , HLD -Cardiology consulted, appreciate recommendations -Blood pressure monitoring per protocol -Vasopressor support with Levophed and vasopressin -MAP goal greater than 65 -Per cardio: Echocardiogram (completed 2 weeks prior to this admission) showed a moderate severity cardiomyopathy, ejection fraction 35 to 40%. -S/p dobutamine -Continue Lipitor and aspirin -Midodrine -Hold home antihypertensive regimen in setting of hypotension Respiratory: Acute hypoxic respiratory failure -[facility] consulted, appreciate recommendations -Intubated 5/2 with 7.5 oett at 20 at the lips -A.m. vent settings: Assist-control rate 16, tidal volume 450, PEEP 8, FiO2 40% -See RT notes for titration -A.m. ABG and CXR noted -VAP bundle -SPO2 monitoring GI: Protein calorie malnutrition, h/o GERD -24 hours +977 mL -PPI -NTR consulted for tube feedings -BR: Senokot : ESRD on HD -Nephrology consulted, appreciate recommendations -HD per nephrology -Received HD 5/3 -Strict intake and output -Renally dose medications -Avoid nephrotoxic medications -Daily weights -Chente and Maru ID: Sepsis secondary to beta-hemolytic strep group B -Infectious disease consulted, appreciate recommendations -S/p removal of right upper chest PermCath -Antibiotic therapy with ceftriaxone -f/u blood culture and TTE -Monitor WBC and temperature curve Endo: Multinodular thyroid gland, h/o IDDM -Multinodular thyroid gland noted on CT head -Dedicated thyroid ultrasound recommended -Avoid hypoglycemia -SSI -Accu-Cheks ACHS Heme: Leukocytosis, AOCD, thrombocyopenia -Trend CBC -Transfuse hemoglobin less than 7 -Monitor for signs of bleeding -SCDs to BLE while in bed -heparin subq -Monitor plts -may have spetic component but platelets on 11/23 was 133 MS: S/p fall at home with contusion of right lower extremity, pain and swelling -CT head/C-spine/pelvis showed no acute fracture or dislocation -XR L-spine/right tib-fib/fib/right femur/right hip and pelvis showed no acute fracture or dislocation. -PT consulted The high probability of a clinically significant, sudden or life threatening deterioration of the [multi] system(s) required my full and direct attention, intervention and personal management. The aggregate critical care time was [60] minutes. This time is in addition to time spent performing reported procedures but includes the following: [x] Data Review and interpretation [x] Patient assessment and monitoring of vital signs [x] Documentation [x] Medication orders and management Disposition Plan: icu Total Time Spent with Patient (Minutes): 60 History Interval history: This is a 66 year old female with HTN, seizure disorder, type II DM, 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, [place] (2007 (s/p PCI, ESRD on HD, CHF, CAD GERD who presented to the hospital on 12/11 s/p fall which occurred 2 days prior to arrival. Patient stated that she felt dizzy and then found herself on the ground. In the emergency department patient was found to have elevated troponin, elevated BUN/creatinine at 9.2/76, CXR showed pulmonary edema and CT head/C-spine/pelvis showed no acute fracture or dislocation and x-ray L- spine/right tib-fib/fib/right femur/right hip and pelvis showed no acute fracture or dislocation. Patient was admitted to the hospitalist service with consults to nephrology and cardiology. Hospital course to date: 12/12: No acute events overnight, reports extreme pain in her right leg, denies chest pain or shortness of breath 12/13: No acute events overnight, patient tearful and complaining of right leg pain however she is refusing analgesic medication 12/14: Continues to have right leg pain, does not participate in interview 12/15: Patient transferred to the ICU for hypotension on Levophed drip however she was weaned off by morning and midodrine was increased due to borderline MAP. Blood cultures grew 4/4 gram-positive cocci with suspected right upper chest permacath source. Patient started on vancomycin and infectious disease consulted. Plan for IR consult for permacath removal and assessment of aVF functioning. Possible temporary Vas-Cath placement for hemodialysis. Patient is encephalopathic likely secondary to sepsis. Continue current antibiotics and repeat 2D echo and blood cultures in the a.m. Right upper extremity swelling and pain noted and right upper extremity XR and Doppler ordered. 12/16: Patient noted to have blisters on left arm and RN asked to elevate and place cool compresses to site. AV fistula on left upper extremity access by hemodialysis nurse and hemodialysis ongoing. Vasopressin ordered in efforts to wean Levophed while on hemodialysis. Echocardiogram repeated. Blood cultures grew beta-hemolytic strep group B and antibiotics changed to ceftriaxone. Dobutamine drip discontinued. Remained sedated on fentanyl drip. Hospitalist Physical - Constitutional Vitals: Temp Pulse Resp BP Pulse Ox 98.8 F 102 H 16 141/67 97 12/16/21 15:08 12/16/21 16:10 12/16/21 15:08 12/16/21 16:10 12/16/21 16:10 General appearance: Present: no acute distress, other (intubated) - EENT Eyes: Present: PERRL, EOM intact - Neck Neck: Present: normal ROM - Respiratory Respiratory effort: normal Respiratory: bilateral: diminished - Cardiovascular Rhythm: regular Heart Sounds: Present: S1 & S2. Absent: systolic murmur, diastolic murmur - Extremities Extremities: no ischemia, pulses intact, pulses symmetrical, normal temperature, normal color Extremity abnormal: edema, other (blisters to right FA) - Abdominal General gastrointestinal: soft, non-tender, non-distended, normal bowel sounds - Integumentary Integumentary: Present: warm, dry - Psychiatric Psychiatric: other (sedated) - Neurologic Neurologic: moves all extremities - Allied Health Allied health notes reviewed: nursing, RT HEART Score - HEART Score Troponin: Troponin T 0.175 ng/mL (0.00-0.029) H* 12/12/21 04:43 Results - Labs CBC & Chem 7: 12/16/21 05:00 12/16/21 05:00 Labs: Laboratory Last Values WBC 12.4 K/mm3 (4.5-11.0) H 12/16/21 05:00 RBC 3.69 M/mm3 (3.65-5.03) 12/16/21 05:00 Hgb 9.6 gm/dl (10.1-14.3) L 12/16/21 05:00 Hct 29.4 % (30.3-42.9) L 12/16/21 05:00 MCV 80 fl (79-97) 12/16/21 05:00 MCH 26 pg (28-32) L 12/16/21 05:00 MCHC 33 % (30-34) 12/16/21 05:00 RDW 18.1 % (13.2-15.2) H 12/16/21 05:00 Plt Count 40 K/mm3 (140-440) L 12/16/21 05:00 Lymph % (Auto) 5.8 % (13.4-35.0) L 12/14/21 11:10 [place] % (Auto) 4.5 % (0.0-7.3) 12/14/21 11:10 Eos % (Auto) 1.3 % (0.0-4.3) 12/14/21 11:10 Baso % (Auto) 0.1 % (0.0-1.8) 12/14/21 11:10 Lymph # (Auto) 0.4 K/mm3 (1.2-5.4) L 12/14/21 11:10 [place] # (Auto) 0.3 K/mm3 (0.0-0.8) 12/14/21 11:10 Eos # (Auto) 0.1 K/mm3 (0.0-0.4) 12/14/21 11:10 Baso # (Auto) 0.0 K/mm3 (0.0-0.1) 12/14/21 11:10 Add Manual Diff Complete 12/16/21 05:00 Total Counted 100 12/16/21 05:00 Seg Neutrophils % 88.3 % (40.0-70.0) H 12/14/21 11:10 Seg Neuts % (Manual) 95.0 % (40.0-70.0) H 12/16/21 05:00 Band Neutrophils % 0 % 12/16/21 05:00 Lymphocytes % (Manual) 5.0 % (13.4-35.0) L 12/16/21 05:00 Reactive Lymphs % (Man) 0 % 12/16/21 05:00 Monocytes % (Manual) 0 % (0.0-7.3) 12/16/21 05:00 Eosinophils % (Manual) 0 % (0.0-4.3) 12/16/21 05:00 Basophils % (Manual) 0 % (0.0-1.8) 12/16/21 05:00 Metamyelocytes % 0 % 12/16/21 05:00 Myelocytes % 0 % 12/16/21 05:00 Promyelocytes % 0 % 12/16/21 05:00 Blast Cells % 0 % 12/16/21 05:00 Nucleated RBC % Not Reportable 12/16/21 05:00 Seg Neutrophils # 6.5 K/mm3 (1.8-7.7) 12/14/21 11:10 Seg Neutrophils # Man 11.8 K/mm3 (1.8-7.7) H 12/16/21 05:00 Band Neutrophils # 0.0 K/mm3 12/16/21 05:00 Lymphocytes # (Manual) 0.6 K/mm3 (1.2-5.4) L 12/16/21 05:00 Abs React Lymphs (Man) 0.0 K/mm3 12/16/21 05:00 Monocytes # (Manual) 0.0 K/mm3 (0.0-0.8) 12/16/21 05:00 Eosinophils # (Manual) 0.0 K/mm3 (0.0-0.4) 12/16/21 05:00 Basophils # (Manual) 0.0 K/mm3 (0.0-0.1) 12/16/21 05:00 Metamyelocytes # 0.0 K/mm3 12/16/21 05:00 Myelocytes # 0.0 K/mm3 12/16/21 05:00 Promyelocytes # 0.0 K/mm3 12/16/21 05:00 Blast Cells # 0.0 K/mm3 12/16/21 05:00 WBC Morphology Not Reportable 12/16/21 05:00 Hypersegmented Neuts Not Reportable 12/16/21 05:00 Hyposegmented Neuts Not Reportable 12/16/21 05:00 Hypogranular Neuts Not Reportable 12/16/21 05:00 Smudge Cells Not Reportable 12/16/21 05:00 Toxic Granulation Not Reportable 12/16/21 05:00 Toxic Vacuolation Not Reportable 12/16/21 05:00 Dohle Bodies Not Reportable 12/16/21 05:00 Pelger-Huet Anomaly Not Reportable 12/16/21 05:00 Charles Rods Not Reportable 12/16/21 05:00 Platelet Estimate Consistent w auto 12/16/21 05:00 Clumped Platelets Not Reportable 12/16/21 05:00 Plt Clumps, EDTA Not Reportable 12/16/21 05:00 Large Platelets Not Reportable 12/16/21 05:00 Giant Platelets Not Reportable 12/16/21 05:00 Platelet Satelliting Not Reportable 12/16/21 05:00 Plt Morphology Comment Not Reportable 12/16/21 05:00 RBC Morphology Not Reportable 12/16/21 05:00 Dimorphic RBCs Not Reportable 12/16/21 05:00 Polychromasia Not Reportable 12/16/21 05:00 Hypochromasia Few 12/16/21 05:00 Poikilocytosis Not Reportable 12/16/21 05:00 Anisocytosis 1+ 12/16/21 05:00 Microcytosis Few 12/16/21 05:00 Macrocytosis Not Reportable 12/16/21 05:00 Spherocytes Not Reportable 12/16/21 05:00 Pappenheimer Bodies Not Reportable 12/16/21 05:00 Sickle Cells Not Reportable 12/16/21 05:00 Target Cells Few 12/16/21 05:00 Tear Drop Cells Not Reportable 12/16/21 05:00 Ovalocytes 1+ 12/16/21 05:00 Helmet Cells Not Reportable 12/16/21 05:00 Murphy-Wing Bodies Not Reportable 12/16/21 05:00 [place] Rings Not Reportable 12/16/21 05:00 Olivia Cells Not Reportable 12/16/21 05:00 Bite Cells Not Reportable 12/16/21 05:00 Crenated Cell Not Reportable 12/16/21 05:00 Elliptocytes Not Reportable 12/16/21 05:00 Acanthocytes (Spur) Not Reportable 12/16/21 05:00 Rouleaux Not Reportable 12/16/21 05:00 Hemoglobin C Crystals Not Reportable 12/16/21 05:00 Schistocytes Not Reportable 12/16/21 05:00 Malaria parasites Not Reportable 12/16/21 05:00 Bryson Bodies Not Reportable 12/16/21 05:00 Hem Pathologist Commnt No 12/16/21 05:00 ABG pH 7.359 pH Units (7.350-7.450) 12/16/21 11:06 ABG pCO2 46.1 mm Hg 12/16/21 11:06 ABG pO2 137.7 mm Hg (80.0-90.0) H 12/16/21 11:06 ABG HCO3 25.4 mmol/L (20.0-26.0) 12/16/21 11:06 ABG O2 Saturation 98.6 % (95.0-99.0) 12/16/21 11:06 ABG O2 Content 13.8 (0.0-44) 12/16/21 11:06 ABG Base Excess -0.3 mmol/L (-2.0-3.0) 12/16/21 11:06 ABG Hemoglobin 9.9 gm/dl (12.0-16.0) L 12/16/21 11:06 ABG Carboxyhemoglobin 1.4 % (0.0-5.0) 12/16/21 11:06 ABG Methemoglobin 0.6 % (0.0-1.5) 12/16/21 11:06 VBG pO2 > 258.0 (25.0-47.0) H 12/15/21 19:50 Oxyhemoglobin 96.6 % (95.0-99.0) 12/16/21 11:06 FiO2 40 % 12/16/21 11:06 Sodium 138 mmol/L (137-145) 12/16/21 05:00 Potassium 4.0 mmol/L (3.6-5.0) 12/16/21 05:00 Chloride 99.0 mmol/L (98-107) 12/16/21 05:00 Carbon Dioxide 22 mmol/L (22-30) 12/16/21 05:00 Anion Gap 21 mmol/L 12/16/21 05:00 BUN 75 mg/dL (7-17) H 12/16/21 05:00 Creatinine 7.7 mg/dL (0.6-1.2) H 12/16/21 05:00 Estimated GFR 6 ml/min 12/16/21 05:00 BUN/Creatinine Ratio 10 % 12/16/21 05:00 Glucose 91 mg/dL (65-100) 12/16/21 05:00 POC Glucose 102 mg/dL (70-105) 12/16/21 06:52 Lactic Acid 1.90 mmol/L (0.7-2.0) 12/16/21 05:00 Calcium 8.3 mg/dL (8.4-10.2) L 12/16/21 05:00 Total Bilirubin 0.60 mg/dL (0.1-1.2) 12/11/21 15:40 AST 22 units/L (5-40) 12/11/21 15:40 ALT 13 units/L (7-56) 12/11/21 15:40 Alkaline Phosphatase 237 units/L (35-129) H 12/11/21 15:40 Troponin T 0.175 ng/mL (0.00-0.029) H* 12/12/21 04:43 C-Reactive Protein 38.50 mg/dL (0.00-1.30) H 12/15/21 14:40 Total Protein 7.4 g/dL (6.3-8.2) 12/11/21 15:40 Albumin 3.6 g/dL (3.9-5) L 12/11/21 15:40 Albumin/Globulin Ratio 0.9 % 12/11/21 15:40 Triglycerides 92 mg/dL (2-149) 12/11/21 15:40 Cholesterol 72 mg/dL (50-199) 12/11/21 15:40 LDL Cholesterol Direct 16 mg/dL (50-130) L 12/11/21 15:40 HDL Cholesterol 41 mg/dL (40-59) 12/11/21 15:40 Cholesterol/HDL Ratio 1.75 % 12/11/21 15:40 Procalcitonin 46.16 ng/mL (<0.15) 12/15/21 04:11 Random Vancomycin 15.6 ug/mL (0-40.0) 12/16/21 05:00 Microbiology: Microbiology 12/13/21 23:43 Peripheral/Venous Blood Culture - Final Beta Hemolytic Strep Group B 12/13/21 23:47 Peripheral/Venous Blood Culture - Final Beta Hemolytic Strep Group B 12/16/21 10:03 Peripheral/Venous Blood Culture - Preliminary Culture in Progress 12/16/21 09:57 Peripheral/Venous Blood Culture - Preliminary Culture in Progress Active Medications - Current Medications Current Medications: Generic Name Dose Route Start Last Admin Trade Name Freq PRN Reason Stop Dose Admin Acetaminophen 650 mg 12/13/21 23:00 12/13/21 23:18 Acetaminophen 650 Mg Rect Supp MA 650 mg Q4H PRN Administration Pain, Mild (1-3) Albuterol 2.5 mg 12/11/21 22:14 Albuterol 2.5 Mg/3 Ml Nebu IH Q6HR PRN Wheezing Albuterol/Ipratropium 1 ampul 12/14/21 08:00 12/16/21 09:03 Ipratropium/Albuterol Sulfate 3 Ml Ampul.Neb IH 1 ampul TIDRT KRISTA Administration Lipase/Protease/Amylase 1 each 12/16/21 11:15 Lipase 10,500/Protease 25,000/Amylase 43,750 (Units) Cap FEEDTUBE PRN PRN For Clogged Feeding Tube Aspirin 81 mg 12/15/21 10:00 12/16/21 08:59 Aspirin 81 Mg Tab Chew FEEDTUBE 81 mg QDAY KRISTA Administration Atorvastatin Calcium 80 mg 12/15/21 22:00 12/15/21 21:06 Atorvastatin 40 Mg Tab FEEDTUBE 80 mg QHS KRISTA Administration Budesonide 0.5 mg 12/13/21 08:00 12/16/21 09:03 Budesonide 0.5 Mg/2 Ml Nebu IH 0.5 mg Q12HRT KRISTA Administration Calcium Acetate 1,334 mg 12/15/21 14:00 12/16/21 16:14 Calcium Acetate 667 Mg Cap FEEDTUBE 1,334 mg TID KRISTA Administration Dextrose 50 ml 12/11/21 22:23 12/16/21 06:24 Dextrose 50% In Water (25gm) 50 Ml Syringe IV 15 ml Q30MIN PRN Administration Hypoglycemia Protocol Famotidine 10 mg 12/15/21 22:00 12/16/21 08:59 Famotidine 10 Mg Tab FEEDTUBE 10 mg BID KRISTA Administration Fentanyl 50 mcg 12/15/21 17:19 12/15/21 17:58 Fentanyl 100 Mcg/2 Ml Inj IV 50 mcg Q10MIN PRN Administration ANALGESIA Hydrophilic Ointment 1 applic 12/16/21 14:30 Lip Therapy Vaseline TP Q2HR PRN Dry Lips Sodium Chloride 100 mls @ 999 mls/hr 12/12/21 12:00 Nacl 0.9% IV ABEL PRN Hypotension NORepinephrine/NS 8 MG-250 ML 8 mg in 250 mls @ 3.75 mls/hr 12/14/21 23:00 12/16/21 16:18 Norepinephrine/Ns 8 Mg-250 Ml (Double Conc) IV 12 mcg/min TITRATE KRISTA 22.5 mls/hr Administration Protocol 2 MCG/MIN Fentanyl Citrate 2,000 mcg in 100 mls @ 2.945 mls/hr 12/15/21 18:00 12/16/21 09:03 Fentanyl Drip Premix IV 3 mcg/kg/hr TITR KRISTA 8.835 mls/hr Administration Protocol 1 MCG/KG/HR Vasopressin 20 unit/ Sodium 101 mls @ 9.09 mls/hr 12/16/21 10:00 12/16/21 09:44 Chloride IV 0.03 units/min TITR KRISTA 9.09 mls/hr Administration Protocol 0.03 UNITS/MIN Ceftriaxone Sodium 2 gm in 100 mls @ 200 mls/hr 12/16/21 15:00 12/16/21 16:15 Rocephin/Ns 2 Gm/100 Ml IV 200 mls/hr Q24H [facility] Administration Protocol Insulin Human Lispro 0 unit 12/15/21 12:00 12/15/21 23:40 Insulin Lispro 100 Unit/Ml SUB-Q Not Given Q6HR [facility] Protocol Levetiracetam 500 mg 12/16/21 18:00 Levetiracetam 500 Mg/5 Ml Oral Liqd FEEDTUBE TuThSa [facility] Midodrine 10 mg 12/15/21 12:00 12/16/21 16:14 Midodrine 10 Mg Tab FEEDTUBE 10 mg TID@0800,1200,1600 [facility] Administration Morphine Sulfate 2 mg 12/11/21 22:11 Morphine 4 Mg/1 Ml Inj IV Q5MIN PRN Chest Pain unrelieved by NTG Multi-Ingred Cream/Lotion/Oil/Oint 1 applic 12/16/21 14:10 Mineral Oil/Petrolatum, White Ophth Oint 3.5 Gm OU Q4HR PRN Dry Eye(s) Nitroglycerin 0.4 mg 12/11/21 22:11 Nitroglycerin 0.4 Mg Tab Subl SL Q5M PRN Chest Pain Senna/Docusate Sodium 1 tab 12/16/21 22:00 Sennosides/Docusate Sodium 8.6/50 Mg Tab FEEDTUBE BID KRISTA Sevelamer Carbonate 800 mg 12/12/21 08:00 12/16/21 16:14 Sevelamer Carbonate 800 Mg Tab PO 800 mg TIDWM KRISTA Administration Simple Syrup 15 ml 12/16/21 11:15 Simple Syrup 15 Ml FEEDTUBE PRN PRN Hypoglycemia Simple Syrup 30 ml 12/16/21 11:15 Simple Syrup 15 Ml FEEDTUBE PRN PRN Hypoglycemia Sodium Bicarbonate 325 mg 12/16/21 11:15 Sodium Bicarbonate 325 Mg Tab FEEDTUBE PRN PRN For Clogged Feeding Tube Sodium Chloride 10 ml 12/11/21 22:11 12/16/21 08:59 Sodium Chloride 0.9% 10 Ml Flush Syringe IV 10 ml PRN PRN Administration LINE FLUSH Tramadol HCl 50 mg 12/15/21 11:00 12/15/21 11:10 Tramadol 50 Mg Tab FEEDTUBE 50 mg Q6H PRN Administration Pain, Moderate (4-6) Nutrition/Malnutrition Assess - Dietary Evaluation Nutrition/Malnutrition Findings: Nutrition Notes Start: 12/12/21 11:57 Freq: Status: Active Protocol: Document 12/16/21 12:42 EVERARDO (Rec: 12/16/21 13:25 EVERARDO [id number]) Nutrition Notes Need for Assessment generated from: MD Order Initial or Follow up Reassessment Current Diagnosis CKD (stage V CKD),Diabetes, Sepsis,Hypertension, Respiratory Failure Other Pertinent Diagnosis CKD+HD, Hypotension, GPC Bacteremia, s/p Fall, ... Current Diet TF-Nepro w/CARBSTEADY @ 30 ml/ hr (from L 12/17). Labs/Tests 12/16: BUN 75, Crea 7.7, Ca 8. 3. Pertinent Medications 11/16: Vasopressin 20 U/101 ml @ 9.09 ml/hr, others nutritionally unremarkable. Height 4 ft 11 in Weight 58.9 kg [place] Body Weight (kg) 43.18 BMI 26.2 Weight change and time frame No body weight change reported . Weight Status Appropriate Subjective/Other Information RD consult for write/manage TF . TF was already prepared yesterday, I will place the order. Pt is on Mechanical ventilation, O2 saturation @ 100%, according to Physical Assessment History notes. Pt's HD is running on L-arm AV Graft, according to Progress notes. On 12/16, HD had to be suspended, due to Pt's worsening condition and increasing Pressor requirement , according to Event note. Percent of energy/protein needs met: Prescribed TF-Nepro w/ CARBSTEADY @ 30 ml/hr provides for energy/protein needs (1, 296 Kcal/58 g) during LOS, 103 % Kcal; 82% AA. Burn Absent Trauma Absent GI Symptoms None Difficulty In Swallowing Food Allergy No Skin Integrity/Comment R-Arm area of concern. Current % PO Other Minimum of two criteria No #1 Nutrition Diagnosis Inadequate oral intake Etiology Encephalopathy and Pt now on Mechanical Ventilation. As Evidenced by Signs and Symptoms Pt continues on NPO. Is patient on ventilator? Yes Is Patient Ambulatory and/or Out of Bed No REE-([facility]-confined to bed) [phone] Calculation Used for Recommendations [facility] Additional Notes Protein: >1.2 g/Kg ABW; >71 g/ day. Fluids: 1-1.5 L/day, or as per MD. Nutrition Intervention Nutrition Support: Start TF-Nepro w/CARBSTEADY @ 30 ml/hr. Flush: 130 ml water Q 4 hr, or as per MD. Kcal 1,296 Protein (gm) 58 Carbohydrates (gm) 116 Fat (gm) 69 Fluid (mL) 523 Fiber (gm) 9 % RDI: 103% Kcal; 82% AA. Goal #1 Provide at least 75% of energy /protein needs through Enteral Feeding during LOS. Goal #2 Maintain body weight within +/ -3% of admission body weight during LOS. Follow-Up By: 12/19/21 Additional Comments Start monitoring TF tolerance and BM.
[2021-12-16] MEDS: INSULIN LISPRO 100 UNIT/ML SUB-Q SCH (18:57)
[2021-12-16] MEDS: levETIRAcetam 500 MG/5 ML ORAL LIQD FEEDTUBE SCH (20:45)
[2021-12-16] MEDS: SENNOSIDES/DOCUSATE SODIUM 8.6/50 MG TAB FEEDTUBE SCH (21:06)
[2021-12-17] MEDS: NORepinephrine/NS 8 MG-250 ML 8 MG/250 ML INFUS..BTL IV SCH ×2 (01:35→19:30)
--- NOTE | 2021-12-17 03:45 | XRay Report ---
CHEST 1 VIEW INDICATION / CLINICAL INFORMATION: follow up respiratory failure. COMPARISON: Chest x-ray 01/02/2022 FINDINGS: SUPPORT DEVICES: No significant change in positioning of tubes/lines. No evidence of malposition. HEART / MEDIASTINUM: No significant abnormality. LUNGS / PLEURA: Bilateral lung opacities demonstrate no significant interval change. BONES: No significant osseous abnormality. ADDITIONAL FINDINGS: No significant additional findings. IMPRESSION: 1. No significant change. Signer Name: Branden Ba II, MD Signed: 12/17/2021 3:41 AM Workstation Name: [id number]
[2021-12-17 06:02] LABS: Basophils # (Auto) 0.1 K/mm3 (0.0-0.1); Basophils % (Auto) 0.8 % (0.0-1.8); Eosinophils % (Auto) 0.4 % (0.0-4.3); Hematocrit 26.5 % (30.3-42.9); Hemoglobin 8.8 gm/dl (10.1-14.3); Lymphocytes # (Auto) 0.7 K/mm3 (1.2-5.4); Lymphocytes % (Auto) 5.9 % (13.4-35.0); Mean Corpuscular HGB Conc 33 % (30-34); Mean Corpuscular Volume 80 fl (79-97); Monocytes # (Auto) 0.6 K/mm3 (0.0-0.8); Monocytes % (Auto) 4.6 % (0.0-7.3); Red Blood Count 3.32 M/mm3 (3.65-5.03)
[2021-12-17 06:04] LABS: Calcium 7.8 mg/dL (8.4-10.2)
[2021-12-17] MEDS: fentaNYL DRIP Premix 2,000 MCG/100 ML BAG IV SCH ×2 (06:09→16:59)
[2021-12-17] MEDS: VASOPRESSIN 20 UNIT in SODIUM CHLORIDE 0.9% 100 ML IV SCH (06:10)
[2021-12-17 06:11] LABS: Platelet Count 27 K/mm3 (140-440)
[2021-12-17] MEDS: INSULIN LISPRO 100 UNIT/ML SUB-Q SCH ×4 (06:13→17:02)
[2021-12-17] MEDS ORDERED: MAGNESIUM SULFATE 2 GM/50 ML BAG IV SCH (08:00)
[2021-12-17] MEDS: IPRATROPIUM/ALBUTEROL SULFATE 3 ML AMPUL.NEB IH SCH ×3 (08:05→20:37)
[2021-12-17] MEDS: BUDESONIDE 0.5 MG/2 ML NEBU IH SCH ×2 (08:06→20:37)
[2021-12-17] MEDS: SEVELAMER CARBONATE 800 MG TAB PO SCH (08:11)
[2021-12-17] MEDS: CALCIUM ACETATE 667 MG CAP FEEDTUBE SCH (08:12)
[2021-12-17] MEDS: MIDODRINE 10 MG TAB FEEDTUBE SCH ×3 (08:14→15:46)
--- NOTE | 2021-12-17 09:07 | Progress Note ---
Assessment and Plan Impression: * ESRD * s/p fall * hypotension * elevated troponin * type 2 DM * history of HTN * GPC bacteremia Plan: * maintain MAP>70, pressors prn * tolerated hd 5/4 via AVF * plan for HD TTHSAT if hemodynamically stable- no indication for additional HD today * will attempt UF removal as able given soft BPs * renal diet, fluid restriction * strict i/os and daily lytes * uf as tolerated with hd * cardiac workup, plans for stress testing noted * note bacteremia- appreciate removal of PermCath. AVF working well enough, no indication for acute intervention, appreciate IR/vascular * antibiotics per ID Subjective Date of service: 12/17/21 Principal diagnosis: Septic shock ; Bacteremia; ESRD on dialysis; AMS; NSTEMI; HTN; DM II Interval history: Remains intubated, FiO2 30%. On Levophed, vaso. Did tolerate HD yesterday with use of AVF Objective - Exam Narrative Exam: Constitutional: ill appearing, intubated Head: NC/AT Neck: supple Lungs: coarse lung sounds CV: tachycardic Abdomen: soft, non-tender, bowel sounds present Back: nontender Extremities: no edema, pulses WNL Skin: intact Neuro: sedated - Vital Signs Vital signs: Vital Signs - 12hr 12/16/21 12/16/21 12/16/21 21:15 21:30 21:46 Temperature Pulse Rate 109 H 108 H Pulse Rate [ Anterior Bilateral Throughout] Pulse Rate [ From Monitor] Pulse Rate [ 71 None] Respiratory 16 16 16 Rate Respiratory Rate [Anterior Bilateral Throughout] Blood Pressure 111/74 111/74 114/62 O2 Sat by Pulse 100 100 100 Oximetry 12/16/21 12/16/21 12/16/21 22:00 22:16 22:30 Temperature Pulse Rate 109 H 103 H 116 H Pulse Rate [ Anterior Bilateral Throughout] Pulse Rate [ From Monitor] Pulse Rate [ None] Respiratory 16 16 16 Rate Respiratory Rate [Anterior Bilateral Throughout] Blood Pressure 115/83 127/67 136/73 O2 Sat by Pulse 100 100 99 Oximetry 12/16/21 12/16/21 12/16/21 22:45 23:00 23:16 Temperature Pulse Rate 96 H 112 H 106 H Pulse Rate [ Anterior Bilateral Throughout] Pulse Rate [ From Monitor] Pulse Rate [ None] Respiratory 16 16 16 Rate Respiratory Rate [Anterior Bilateral Throughout] Blood Pressure 130/75 140/85 123/78 O2 Sat by Pulse 100 100 100 Oximetry 12/16/21 12/16/21 12/17/21 23:30 23:46 00:00 Temperature 97.9 F Pulse Rate 103 H 114 H 101 H Pulse Rate [ Anterior Bilateral Throughout] Pulse Rate [ 101 H From Monitor] Pulse Rate [ None] Respiratory 16 16 16 Rate Respiratory Rate [Anterior Bilateral Throughout] Blood Pressure 123/78 118/80 124/79 O2 Sat by Pulse 99 99 100 Oximetry 12/17/21 12/17/21 12/17/21 00:02 00:16 00:30 Temperature Pulse Rate 111 H 97 H 100 H Pulse Rate [ Anterior Bilateral Throughout] Pulse Rate [ From Monitor] Pulse Rate [ None] Respiratory 15 16 Rate Respiratory Rate [Anterior Bilateral Throughout] Blood Pressure 118/80 131/73 118/82 O2 Sat by Pulse 99 100 100 Oximetry 12/17/21 12/17/21 12/17/21 00:45 01:00 01:15 Temperature Pulse Rate 96 H 105 H 100 H Pulse Rate [ Anterior Bilateral Throughout] Pulse Rate [ From Monitor] Pulse Rate [ None] Respiratory 16 16 16 Rate Respiratory Rate [Anterior Bilateral Throughout] Blood Pressure 118/82 119/79 120/82 O2 Sat by Pulse 100 100 100 Oximetry 12/17/21 12/17/21 12/17/21 01:31 01:45 02:00 Temperature Pulse Rate 99 H 125 H 100 H Pulse Rate [ Anterior Bilateral Throughout] Pulse Rate [ From Monitor] Pulse Rate [ None] Respiratory 15 16 14 Rate Respiratory Rate [Anterior Bilateral Throughout] Blood Pressure 111/86 116/83 130/73 O2 Sat by Pulse 100 100 100 Oximetry 12/17/21 12/17/21 12/17/21 02:15 02:30 02:45 Temperature Pulse Rate 100 H 102 H 102 H Pulse Rate [ Anterior Bilateral Throughout] Pulse Rate [ From Monitor] Pulse Rate [ None] Respiratory 4 L 0 L 5 L Rate Respiratory Rate [Anterior Bilateral Throughout] Blood Pressure 116/72 111/81 111/81 O2 Sat by Pulse 100 100 100 Oximetry 12/17/21 12/17/21 12/17/21 03:00 03:15 03:30 Temperature Pulse Rate 92 H 100 H 103 H Pulse Rate [ Anterior Bilateral Throughout] Pulse Rate [ From Monitor] Pulse Rate [ None] Respiratory 0 L 0 L 20 Rate Respiratory Rate [Anterior Bilateral Throughout] Blood Pressure 114/78 117/76 123/51 O2 Sat by Pulse 100 100 100 Oximetry 12/17/21 12/17/21 12/17/21 03:45 04:00 04:01 Temperature 98 F Pulse Rate 94 H 67 103 H Pulse Rate [ Anterior Bilateral Throughout] Pulse Rate [ 103 H From Monitor] Pulse Rate [ None] Respiratory 14 16 16 Rate Respiratory Rate [Anterior Bilateral Throughout] Blood Pressure 112/72 109/57 118/71 O2 Sat by Pulse 100 100 100 Oximetry 12/17/21 12/17/21 12/17/21 04:15 04:30 04:45 Temperature Pulse Rate 92 H 81 68 Pulse Rate [ Anterior Bilateral Throughout] Pulse Rate [ From Monitor] Pulse Rate [ None] Respiratory 16 14 14 Rate Respiratory Rate [Anterior Bilateral Throughout] Blood Pressure 118/69 125/45 109/57 O2 Sat by Pulse 100 100 100 Oximetry 12/17/21 12/17/21 12/17/21 05:00 05:15 05:30 Temperature Pulse Rate 67 73 67 Pulse Rate [ Anterior Bilateral Throughout] Pulse Rate [ From Monitor] Pulse Rate [ None] Respiratory 12 16 16 Rate Respiratory Rate [Anterior Bilateral Throughout] Blood Pressure 106/61 94/55 94/50 O2 Sat by Pulse 100 98 100 Oximetry 12/17/21 12/17/21 12/17/21 05:45 06:00 06:15 Temperature Pulse Rate 66 65 65 Pulse Rate [ Anterior Bilateral Throughout] Pulse Rate [ From Monitor] Pulse Rate [ None] Respiratory 16 0 L 0 L Rate Respiratory Rate [Anterior Bilateral Throughout] Blood Pressure 94/57 101/56 103/55 O2 Sat by Pulse 100 100 100 Oximetry 12/17/21 12/17/21 12/17/21 06:30 06:45 07:00 Temperature Pulse Rate 68 66 66 Pulse Rate [ Anterior Bilateral Throughout] Pulse Rate [ From Monitor] Pulse Rate [ None] Respiratory 16 0 L 14 Rate Respiratory Rate [Anterior Bilateral Throughout] Blood Pressure 103/57 103/58 97/64 O2 Sat by Pulse 100 100 100 Oximetry 12/17/21 12/17/21 12/17/21 07:15 07:30 07:45 Temperature Pulse Rate 65 63 63 Pulse Rate [ Anterior Bilateral Throughout] Pulse Rate [ From Monitor] Pulse Rate [ None] Respiratory 10 L 7 L 4 L Rate Respiratory Rate [Anterior Bilateral Throughout] Blood Pressure 101/59 95/55 92/53 O2 Sat by Pulse 100 100 100 Oximetry 12/17/21 12/17/21 12/17/21 07:55 08:00 08:09 Temperature 97.6 F Pulse Rate 66 Pulse Rate [ 68 Anterior Bilateral Throughout] Pulse Rate [ From Monitor] Pulse Rate [ None] Respiratory 16 Rate Respiratory 16 Rate [Anterior Bilateral Throughout] Blood Pressure 94/61 O2 Sat by Pulse 100 Oximetry 12/17/21 12/17/21 12/17/21 08:15 08:30 08:45 Temperature Pulse Rate 63 63 67 Pulse Rate [ Anterior Bilateral Throughout] Pulse Rate [ From Monitor] Pulse Rate [ None] Respiratory 0 L 11 L 0 L Rate Respiratory Rate [Anterior Bilateral Throughout] Blood Pressure 97/54 95/51 98/53 O2 Sat by Pulse 100 100 100 Oximetry 12/17/21 09:00 Temperature Pulse Rate 67 Pulse Rate [ Anterior Bilateral Throughout] Pulse Rate [ From Monitor] Pulse Rate [ None] Respiratory 0 L Rate Respiratory Rate [Anterior Bilateral Throughout] Blood Pressure 99/56 O2 Sat by Pulse 100 Oximetry - Lab 12/17/21 04:00 12/17/21 04:30 Most recent lab results ABG pH 7.359 pH Units (7.350-7.450) 12/16/21 11:06 ABG pCO2 46.1 mm Hg 12/16/21 11:06 ABG pO2 137.7 mm Hg (80.0-90.0) H 12/16/21 11:06 ABG HCO3 25.4 mmol/L (20.0-26.0) 12/16/21 11:06 ABG O2 Saturation 98.6 % (95.0-99.0) 12/16/21 11:06 Calcium 7.8 mg/dL (8.4-10.2) L 12/17/21 04:30 Phosphorus 1.90 mg/dL (2.5-4.5) L 12/17/21 04:30 Magnesium 1.60 mg/dL (1.7-2.3) L 12/17/21 04:30 Medications & Allergies - Medications Allergies/Adverse Reactions: Allergies No Known Allergies Allergy (Verified 12/11/21 22:19) Home Medications: Home Medications Medication Instructions Recorded Confirmed Last Taken Type Albuterol Sulfate [Proair 2 puff IH Q6HR PRN 11/23/21 12/14/21 Unknown History Digihaler] Calcium Acetate 2 tab PO TID 11/23/21 12/14/21 Unknown History Fluticasone/Umeclidin/Vilanter 1 each IH DAILY 11/23/21 12/14/21 Unknown History [Trelegy Ellipta 100-62.5-25] Furosemide [Lasix TAB] 40 mg PO QDAY 11/23/21 12/14/21 Unknown History Insulin Aspart (Nf) [NovoLOG 55 unit SQ TID 11/23/21 12/14/21 Unknown History Flexpen] Insulin Glargine [Lantus VIAL] 25 units SQ QHS 11/23/21 12/14/21 Unknown History Omeprazole 20 mg PO DAILY 11/23/21 12/14/21 Unknown History Spironolactone [Aldactone] 100 mg PO QDAY 11/23/21 12/14/21 Unknown History lisinopriL [Lisinopril] 20 mg PO BID 11/23/21 12/14/21 12/06/21 History 500 MG Docusate Sodium [Colace CAP] 100 mg PO BID PRN #60 capsule 11/24/21 12/14/21 Unknown Rx Aspirin EC [Halfprin EC] 81 mg PO DAILY 90 Days #90 tablet 11/26/21 12/14/21 Unknown Rx Aspirin [Adult Aspirin] 81 mg PO DAILY 90 Days #90 tab 11/26/21 12/14/21 Unknown Rx ISOSORBIDE MONOnitrate [Imdur ER] 60 mg PO QDAY 90 Days #90 tab 11/26/21 12/14/21 Unknown Rx Sevelamer Carbonate [Renvela] 800 mg PO TIDWM 90 Days #270 tab 11/26/21 12/14/21 Unknown Rx amLODIPine 10 mg PO DAILY 90 Days #90 tab 11/26/21 12/14/21 Unknown Rx carvediloL [Coreg] 25 mg PO BID 90 Days #180 tab 11/26/21 12/14/21 Unknown Rx Atorvastatin Calcium [Lipitor] 80 mg PO QHS 90 Days #90 tab 11/27/21 12/14/21 Unknown Rx levETIRAcetam [Keppra TAB] 500 mg PO 3XW 12/14/21 12/14/21 12/06/21 History 500 MG Active Medications: Generic Name Dose Route Start Last Admin Trade Name Freq PRN Reason Stop Dose Admin Acetaminophen 650 mg 12/13/21 23:00 12/13/21 23:18 Acetaminophen 650 Mg Rect Supp [place] 650 mg Q4H PRN Administration Pain, Mild (1-3) Albuterol 2.5 mg 12/11/21 22:14 Albuterol 2.5 Mg/3 Ml Nebu IH Q6HR PRN Wheezing Albuterol/Ipratropium 1 ampul 12/14/21 08:00 12/17/21 08:05 Ipratropium/Albuterol Sulfate 3 Ml Ampul.Neb IH 1 ampul TIDRT KRISTA Administration Lipase/Protease/Amylase 1 each 12/16/21 11:15 Lipase 10,500/Protease 25,000/Amylase 43,750 (Units) Dr Blanco FEEDTUBE PRN PRN For Clogged Feeding Tube Aspirin 81 mg 12/15/21 10:00 12/16/21 08:59 Aspirin 81 Mg Tab Chew FEEDTUBE 81 mg QDAY KRISTA Administration Atorvastatin Calcium 80 mg 12/15/21 22:00 12/16/21 21:06 Atorvastatin 40 Mg Tab FEEDTUBE 80 mg QHS RKISTA Administration Budesonide 0.5 mg 12/13/21 08:00 12/17/21 08:06 Budesonide 0.5 Mg/2 Ml Nebu IH 0.5 mg Q12HRT KRISTA Administration Dextrose 50 ml 12/11/21 22:23 12/16/21 06:24 Dextrose 50% In Water (25gm) 50 Ml Syringe IV 15 ml Q30MIN PRN Administration Hypoglycemia Protocol Famotidine 10 mg 12/15/21 22:00 12/16/21 21:06 Famotidine 10 Mg Tab FEEDTUBE 10 mg BID KRISTA Administration Fentanyl 50 mcg 12/15/21 17:19 12/15/21 17:58 Fentanyl 100 Mcg/2 Ml Inj IV 50 mcg Q10MIN PRN Administration ANALGESIA Hydrophilic Ointment 1 applic 12/16/21 14:30 Lip Therapy Vaseline TP Q2HR PRN Dry Lips Sodium Chloride 100 mls @ 999 mls/hr 12/12/21 12:00 Nacl 0.9% IV ABEL PRN Hypotension NORepinephrine/NS 8 MG-250 ML 8 mg in 250 mls @ 3.75 mls/hr 12/14/21 23:00 12/17/21 04:05 Norepinephrine/Ns 8 Mg-250 Ml (Double Conc) IV 8 mcg/min TITRATE KRISTA 15 mls/hr Titration Protocol 2 MCG/MIN Fentanyl Citrate 2,000 mcg in 100 mls @ 2.945 mls/hr 12/15/21 18:00 12/17/21 06:09 Fentanyl Drip Premix IV 3 mcg/kg/hr TITR KRISTA 8.835 mls/hr Administration Protocol 1 MCG/KG/HR Vasopressin 20 unit/ Sodium 101 mls @ 9.09 mls/hr 12/16/21 10:00 12/17/21 06:10 Chloride IV 0.03 units/min TITR KRISTA 9.09 mls/hr Administration Protocol 0.03 UNITS/MIN Ceftriaxone Sodium 2 gm in 100 mls @ 200 mls/hr 12/16/21 15:00 12/16/21 16:15 Rocephin/Ns 2 Gm/100 Ml IV 200 mls/hr Q24H KRISTA Administration Protocol Magnesium Sulfate 2 gm in 50 mls @ 25 mls/hr 12/17/21 08:00 12/17/21 08:14 Magnesium Sulfate 2gm/50ml IV 12/17/21 12:00 25 mls/hr ONCE@0800 [facility] Administration Insulin Human Lispro 0 unit 12/15/21 12:00 12/17/21 06:13 Insulin Lispro 100 Unit/Ml SUB-Q Not Given Q6HR [facility] Protocol Levetiracetam 500 mg 12/16/21 18:00 12/16/21 20:45 Levetiracetam 500 Mg/5 Ml Oral Liqd [facility]BE [facility] Administration Midodrine 10 mg 12/15/21 12:00 12/17/21 08:14 Midodrine 10 Mg Tab FEEDTUBE 10 mg TID@0800,1200,1600 [facility] Administration Morphine Sulfate 2 mg 12/11/21 22:11 Morphine 4 Mg/1 Ml Inj IV Q5MIN PRN Chest Pain unrelieved by NTG Multi-Ingred Cream/Lotion/Oil/Oint 1 applic 12/16/21 14:10 Mineral Oil/Petrolatum, White Ophth Oint 3.5 Gm OU Q4HR PRN Dry Eye(s) Nitroglycerin 0.4 mg 12/11/21 22:11 Nitroglycerin 0.4 Mg Tab Subl SL Q5M PRN Chest Pain Senna/Docusate Sodium 1 tab 12/16/21 22:00 12/16/21 21:06 Sennosides/Docusate Sodium 8.6/50 Mg Tab FEEDTUBE 1 tab BID KRISTA Administration Simple Syrup 15 ml 12/16/21 11:15 Simple Syrup 15 Ml FEEDTUBE PRN PRN Hypoglycemia Simple Syrup 30 ml 12/16/21 11:15 Simple Syrup 15 Ml FEEDTUBE PRN PRN Hypoglycemia Sodium Bicarbonate 325 mg 12/16/21 11:15 Sodium Bicarbonate 325 Mg Tab FEEDTUBE PRN PRN For Clogged Feeding Tube Sodium Chloride 10 ml 12/11/21 22:11 12/16/21 08:59 Sodium Chloride 0.9% 10 Ml Flush Syringe IV 10 ml PRN PRN Administration LINE FLUSH
[2021-12-17] MEDS: SENNOSIDES/DOCUSATE SODIUM 8.6/50 MG TAB FEEDTUBE SCH ×2 (09:48→21:47)
[2021-12-17] MEDS: ASPIRIN 81 MG TAB CHEW FEEDTUBE SCH (09:48)
[2021-12-17] MEDS: FAMOTIDINE 10 MG TAB FEEDTUBE SCH ×2 (09:48→21:46)
--- NOTE | 2021-12-17 10:46 | Progress Note ---
Assessment and Plan - Patient Problems (1) Syncope Current Visit: Yes Status: Acute Plan to address problem: Patient admitted with episode of transient dizziness causing a fall which resulted in right hip pain. She has end-stage renal disease on hemodialysis, had missed at least 1 dialysis session prior to admission. Recently relocated here from [place]. Echocardiogram done in this hospital on a prior admission 2 weeks ago showed a moderate severity cardiomyopathy, ejection fraction 35 to 40%. The etiology of her cardiomyopathy is not known at this time, we do not have her records from [place] for review. Hospital course is now complicated by development of sepsis, with four positive blood cultures. Suspected source is the indwelling Vas-Cath. Transthoracic echo shows no evidence of valvular vegetation. Subjective Date of service: 12/17/21 Principal diagnosis: Sepsis, respiratory failure Interval history: Patient is sedated, on the vent. On groundwater monitoring technician has a sinus rhythm at 65. Objective Vital Signs Temp Pulse Pulse Pulse Pulse Resp Resp 12/17/21 10:30 69 11 L 12/17/21 10:15 67 0 L 12/17/21 10:00 68 5 L 12/17/21 09:45 66 0 L 12/17/21 09:30 66 7 L 12/17/21 09:15 65 0 L 12/17/21 09:00 67 0 L 12/17/21 08:45 67 0 L 12/17/21 08:30 63 11 L 12/17/21 08:15 63 0 L 12/17/21 08:09 68 16 12/17/21 08:00 66 103 H 16 12/17/21 07:55 97.6 F 12/17/21 07:45 63 4 L 12/17/21 07:30 63 7 L 12/17/21 07:15 65 10 L 12/17/21 07:00 66 14 12/17/21 06:45 66 0 L 12/17/21 06:30 68 16 12/17/21 06:15 65 0 L 12/17/21 06:00 65 0 L 12/17/21 05:45 66 16 12/17/21 05:30 67 16 12/17/21 05:15 73 16 12/17/21 05:00 67 12 12/17/21 04:45 68 14 12/17/21 04:30 81 14 12/17/21 04:15 92 H 16 12/17/21 04:01 103 H 16 12/17/21 04:00 98 F 67 103 H 16 12/17/21 03:45 94 H 14 12/17/21 03:30 103 H 20 12/17/21 03:15 100 H 0 L 12/17/21 03:00 92 H 0 L 12/17/21 02:45 102 H 5 L 12/17/21 02:30 102 H 0 L 12/17/21 02:15 100 H 4 L 12/17/21 02:00 100 H 14 12/17/21 01:45 125 H 16 12/17/21 01:31 99 H 15 12/17/21 01:15 100 H 16 12/17/21 01:00 105 H 16 12/17/21 00:45 96 H 16 12/17/21 00:30 100 H 16 12/17/21 00:16 97 H 15 12/17/21 00:02 111 H 12/17/21 00:00 97.9 F 101 H 101 H 16 12/16/21 23:46 114 H 16 12/16/21 23:30 103 H 16 12/16/21 23:16 106 H 16 12/16/21 23:00 112 H 16 12/16/21 22:45 96 H 16 12/16/21 22:30 116 H 16 12/16/21 22:16 103 H 16 12/16/21 22:00 109 H 16 12/16/21 21:46 108 H 16 12/16/21 21:30 109 H 16 12/16/21 21:15 71 16 12/16/21 21:00 112 H 16 12/16/21 20:46 113 H 16 12/16/21 20:30 96 H 15 12/16/21 20:16 99 H 16 12/16/21 20:00 98.2 F 100 H 100 H 14 12/16/21 19:46 103 H 27 H 12/16/21 19:38 102 H 16 12/16/21 19:33 100 H 12/16/21 19:30 100 H 15 12/16/21 19:16 101 H 12 12/16/21 19:00 96 H 20 12/16/21 18:46 97 H 35 H 12/16/21 18:30 121 H 16 12/16/21 18:16 113 H 15 05/03/22 18:00 100 H 16 12/16/21 17:46 104 H 16 12/16/21 17:30 112 H 16 12/16/21 17:16 112 H 16 12/16/21 17:00 108 H 16 12/16/21 16:46 113 H 16 12/16/21 16:30 112 H 16 12/16/21 16:16 115 H 16 12/16/21 16:10 102 H 95 H 16 12/16/21 16:00 98.7 F 95 H 95 H 16 12/16/21 15:46 96 H 16 12/16/21 15:30 94 H 12 12/16/21 15:16 97 H 16 12/16/21 15:08 98.8 F 87 16 12/16/21 15:00 94 H 16 12/16/21 14:46 89 19 12/16/21 14:30 109 H 17 12/16/21 14:16 107 H 17 12/16/21 14:15 87 12/16/21 14:00 102 H 16 12/16/21 13:46 111 H 19 12/16/21 13:45 90 12/16/21 13:30 107 H 15 12/16/21 13:16 117 H 16 12/16/21 13:15 98 H 12/16/21 13:00 106 H 16 12/16/21 12:46 108 H 19 12/16/21 12:45 102 H 12/16/21 12:30 118 H 16 12/16/21 12:16 98 H 16 12/16/21 12:15 90 12/16/21 12:00 98.4 F 116 H 116 H 19 12/16/21 11:46 114 H 16 12/16/21 11:45 100 H 12/16/21 11:32 110 H 12/16/21 11:30 114 H 16 12/16/21 11:16 113 H 17 12/16/21 11:15 99 H 12/16/21 11:00 107 H 17 12/16/21 10:46 113 H 16 BP Pulse Ox Pulse Ox 12/17/21 10:30 98/53 100 12/17/21 10:15 91/48 100 12/17/21 10:00 91/48 100 12/17/21 09:45 95/40 100 05 09:30 95/40 100 12/17/21 09:15 103/61 100 12/17/21 09:00 99/56 100 12/17/21 08:45 98/53 100 12/17/21 08:30 95/51 100 12/17/21 08:15 97/54 100 12/17/21 08:09 12/17/21 08:00 94/61 100 12/17/21 07:55 05 07:45 92/53 100 12/17/21 07:30 95/55 100 12/17/21 07:15 101/59 100 12/17/21 07:00 97/64 100 12/17/21 06:45 103/58 100 12/17/21 06:30 103/57 100 12/17/21 06:15 103/55 100 12/17/21 06:00 101/56 100 12/17/21 05:45 94/57 100 12/17/21 05:30 94/50 100 12/17/21 05:15 94/55 98 12/17/21 05:00 106/61 100 12/17/21 04:45 109/57 100 12/17/21 04:30 125/45 100 12/17/21 04:15 118/69 100 12/17/21 04:01 118/71 100 12/17/21 04:00 109/57 100 12/17/21 03:45 112/72 100 12/17/21 03:30 123/51 100 12/17/21 03:15 117/76 100 05 03:00 114/78 100 12/17/21 02:45 111/81 100 05 02:30 111/81 100 12/17/21 02:15 116/72 100 05 02:00 130/73 100 12/17/21 01:45 116/83 100 12/17/21 01:31 111/86 100 12/17/21 01:15 120/82 100 12/17/21 01:00 119/79 100 12/17/21 00:45 118/82 100 05 00:30 118/82 100 05 00:16 131/73 100 12/17/21 00:02 118/80 99 12/17/21 00:00 124/79 100 05 23:46 118/80 99 05 23:30 123/78 99 05 23:16 123/78 100 05 23:00 140/85 100 05 22:45 130/75 100 05 22:30 136/73 99 05 22:16 127/67 100 05 22:00 115/83 100 05 21:46 114/62 100 05 21:30 111/74 100 05 21:15 111/74 100 05 21:00 159/69 100 05 20:46 159/69 100 05 20:30 159/69 100 05 20:16 159/69 100 05 20:00 129/75 100 05 19:46 129/75 100 05 19:38 05 19:33 129/75 100 05 19:30 129/75 100 12/16/21 19:16 135/70 100 05 19:00 130/66 100 05 18:46 143/66 100 12/16/21 18:30 143/66 98 05 18:16 143/66 100 12/16/21 18:00 128/61 99 05 17:46 128/61 100 12/16/21 17:30 110/68 99 05 17:16 110/68 98 05 17:00 109/64 98 05 16:46 125/56 99 05 16:30 122/47 05 16:16 141/67 100 05 16:10 141/67 97 05 16:00 150/59 98 05 15:46 150/59 99 05 15:30 152/71 97 05 15:16 152/71 95 05/03 15:08 152/71 95 05 15:00 149/76 96 05 14:46 149/76 96 05 14:30 128/95 100 12/16/21 14:16 145/98 100 12/16/21 14:15 112/74 12/16/21 14:00 112/46 100 12/16/21 13:46 112/46 100 12/16/21 13:45 145/98 12/16/21 13:30 149/97 100 12/16/21 13:16 148/111 100 12/16/21 13:15 149/97 12/16/21 13:00 126/67 100 12/16/21 12:46 132/64 100 12/16/21 12:45 126/67 12/16/21 12:30 132/64 100 12/16/21 12:16 140/83 100 12/16/21 12:15 132/64 12/16/21 12:00 140/83 100 12/16/21 11:46 131/50 100 12/16/21 11:45 131/50 12/16/21 11:32 122/58 100 12/16/21 11:30 124/68 100 12/16/21 11:16 124/68 100 12/16/21 11:15 124/68 12/16/21 11:00 132/74 99 12/16/21 10:46 158/117 100 - Physical Examination General: Other (Sedated, on the vent) HEENT: Positive: PERRL Neck: Positive: neck supple Cardiac: Positive: Reg Rate and Rhythm Lungs: Positive: Decreased Breath Sounds Neuro: Positive: Other (Sedated, on the vent) Abdomen: Positive: Soft Skin: Positive: Clear Extremities: Absent: edema - Labs and Meds CBC 12/17/21 Range/Units 04:00 WBC 12.3 H (4.5-11.0) K/mm3 RBC 3.32 L (3.65-5.03) M/mm3 Hgb 8.8 L (10.1-14.3) gm/dl Hct 26.5 L (30.3-42.9) % Plt Count 27 L (140-440) K/mm3 Lymph # (Auto) 0.7 L (1.2-5.4) K/mm3 Baxter # (Auto) 0.6 (0.0-0.8) K/mm3 Eos # (Auto) 0.0 (0.0-0.4) K/mm3 Baso # (Auto) 0.1 (0.0-0.1) K/mm3 Comprehensive Metabolic Panel 12/17/21 Range/Units 04:30 Sodium 138 (137-145) mmol/L Potassium 3.6 (3.6-5.0) mmol/L Chloride 100.2 (98-107) mmol/L Carbon Dioxide 22 (22-30) mmol/L BUN 43 H (7-17) mg/dL Creatinine 5.0 H (0.6-1.2) mg/dL Glucose 129 H (65-100) mg/dL Calcium 7.8 L (8.4-10.2) mg/dL - Allied health notes Allied health notes reviewed: nursing
--- NOTE | 2021-12-17 13:51 | Progress Note ---
Assessment and Plan Septic shock Bacteremia with gram-positive cocci End-stage renal disease on dialysis Acute toxic metabolic encephalopathy Non-ST elevation myocardial infarction A-Fib with RVR Hypertension Diabetes type 2 Anemia that is normocytic - follow ABG and address - repeat ECHO shows EF 30-35% - IVNS @ 100 ml's/hr X 2 liters re: sepsis and hypotension - Solumedrol 60 mg IV q8h re: hypotension / thrombocytopenia - Hematology consult placed also - HIT assay sent; SCD's for now - growing group B beta hemolytic strep; AB's de-escalated to Rocephin - wean vasopressors for target MAP > 65 mmHg - continue care as below otherwise; - Daily SAT and SBT assessment as tolerated - continue to wean supplemental oxygen for target O2 sat's > 90% acutely - VAP bundle addressed - continue lung protective strategies - continue bronchodilators with pulmonary hygiene per RT - wean per pulmonary driven protocols otherwise - continue HD/UF for toxin and volume clearance - avoid nephrotoxins, renally dose all medications - continue to avoid benzodiazepine's, reduce the possibility of delirium - complete AB's per ID rec's (On Vancomycin) - prn analgesia per CPOT score - Maintenance of sleep-wake cycle, avoid delirium - continue enteral nutritional support at goal rate as tolerated - G.I. & VTE prophylaxis - PT/OT/ROM exercises - continue mobility protocols for pressure ulcer prophylaxis - Monitor hemodynamics closely - continue other care per attending / other consultants - discharge planning ongoing concurrently .... Re-evaluate in am & prn CONDITION: CRITICAL PROGNOSIS: GUARDED CODE STATUS: FULL CODE The high probability of a clinically significant, sudden or life-threatening deterioration of the [respiratory, cardiovascular, renal & neurologic] system(s) required my full and direct attention, intervention and personal management. The aggregate critical care time was [32] minutes without overlap. Time includes spent on; [x] Data Review and interpretation [x] Patient assessment and monitoring of vital signs [x] Documentation [x] Medication orders and management Subjective Date of service: 12/17/21 Principal diagnosis: Septic shock ; Bacteremia; ESRD on dialysis; AMS; NSTEMI; HTN; DM II Interval history: Patient is seen today for: Septic shock ; gm +ve Bacteremia; ESRD on dialysis; A MS; NSTEMI; Hypertension; DM II Seen and examined at bedside; 24hour events reviewed; nursing and respiratory care staff consulted; no adverse overnight events reported to me; resting peacefully in bed; off Dobutamine; off Vasopressin but remains on Levophed; tachycartdia has resolved; AMS is persistent; no emesis or overt aspiration; thrombocytopenia is worse Objective Vital Signs - 12hr 12/17/21 12/17/21 12/17/21 02:00 02:15 02:30 Temperature Pulse Rate 100 H 100 H 102 H Pulse Rate [ Anterior Bilateral Throughout] Pulse Rate [ From Monitor] Respiratory 14 4 L 0 L Rate Respiratory Rate [Anterior Bilateral Throughout] Blood Pressure 130/73 116/72 111/81 O2 Sat by Pulse 100 100 100 Oximetry 12/17/21 12/17/21 12/17/21 02:45 03:00 03:15 Temperature Pulse Rate 102 H 92 H 100 H Pulse Rate [ Anterior Bilateral Throughout] Pulse Rate [ From Monitor] Respiratory 5 L 0 L 0 L Rate Respiratory Rate [Anterior Bilateral Throughout] Blood Pressure 111/81 114/78 117/76 O2 Sat by Pulse 100 100 100 Oximetry 12/17/21 12/17/21 12/17/21 03:30 03:45 04:00 Temperature 98 F Pulse Rate 103 H 94 H 67 Pulse Rate [ Anterior Bilateral Throughout] Pulse Rate [ 103 H From Monitor] Respiratory 20 14 16 Rate Respiratory Rate [Anterior Bilateral Throughout] Blood Pressure 123/51 112/72 109/57 O2 Sat by Pulse 100 100 100 Oximetry 12/17/21 12/17/21 12/17/21 04:01 04:15 04:30 Temperature Pulse Rate 103 H 92 H 81 Pulse Rate [ Anterior Bilateral Throughout] Pulse Rate [ From Monitor] Respiratory 16 16 14 Rate Respiratory Rate [Anterior Bilateral Throughout] Blood Pressure 118/71 118/69 125/45 O2 Sat by Pulse 100 100 100 Oximetry 12/17/21 12/17/21 12/17/21 04:45 05:00 05:15 Temperature Pulse Rate 68 67 73 Pulse Rate [ Anterior Bilateral Throughout] Pulse Rate [ From Monitor] Respiratory 14 12 16 Rate Respiratory Rate [Anterior Bilateral Throughout] Blood Pressure 109/57 106/61 94/55 O2 Sat by Pulse 100 100 98 Oximetry 12/17/21 12/17/21 12/17/21 05:30 05:45 06:00 Temperature Pulse Rate 67 66 65 Pulse Rate [ Anterior Bilateral Throughout] Pulse Rate [ From Monitor] Respiratory 16 16 0 L Rate Respiratory Rate [Anterior Bilateral Throughout] Blood Pressure 94/50 94/57 101/56 O2 Sat by Pulse 100 100 100 Oximetry 12/17/21 12/17/21 12/17/21 06:15 06:30 06:45 Temperature Pulse Rate 65 68 66 Pulse Rate [ Anterior Bilateral Throughout] Pulse Rate [ From Monitor] Respiratory 0 L 16 0 L Rate Respiratory Rate [Anterior Bilateral Throughout] Blood Pressure 103/55 103/57 103/58 O2 Sat by Pulse 100 100 100 Oximetry 12/17/21 12/17/21 12/17/21 07:00 07:15 07:30 Temperature Pulse Rate 66 65 63 Pulse Rate [ Anterior Bilateral Throughout] Pulse Rate [ From Monitor] Respiratory 14 10 L 7 L Rate Respiratory Rate [Anterior Bilateral Throughout] Blood Pressure 97/64 101/59 95/55 O2 Sat by Pulse 100 100 100 Oximetry 12/17/21 12/17/21 12/17/21 07:45 07:55 08:00 Temperature 97.6 F Pulse Rate 63 66 Pulse Rate [ Anterior Bilateral Throughout] Pulse Rate [ 64 From Monitor] Respiratory 4 L 16 Rate Respiratory Rate [Anterior Bilateral Throughout] Blood Pressure 92/53 94/61 O2 Sat by Pulse 100 100 Oximetry 12/17/21 12/17/21 12/17/21 08:09 08:15 08:30 Temperature Pulse Rate 63 63 Pulse Rate [ 68 Anterior Bilateral Throughout] Pulse Rate [ From Monitor] Respiratory 0 L 11 L Rate Respiratory 16 Rate [Anterior Bilateral Throughout] Blood Pressure 97/54 95/51 O2 Sat by Pulse 100 100 Oximetry 12/17/21 12/17/21 12/17/21 08:45 09:00 09:15 Temperature Pulse Rate 67 67 65 Pulse Rate [ Anterior Bilateral Throughout] Pulse Rate [ From Monitor] Respiratory 0 L 0 L 0 L Rate Respiratory Rate [Anterior Bilateral Throughout] Blood Pressure 98/53 99/56 103/61 O2 Sat by Pulse 100 100 100 Oximetry 12/17/21 12/17/21 12/17/21 09:30 09:45 10:00 Temperature Pulse Rate 66 66 68 Pulse Rate [ Anterior Bilateral Throughout] Pulse Rate [ From Monitor] Respiratory 7 L 0 L 5 L Rate Respiratory Rate [Anterior Bilateral Throughout] Blood Pressure 95/40 95/40 91/48 O2 Sat by Pulse 100 100 100 Oximetry 12/17/21 12/17/21 12/17/21 10:15 10:30 10:45 Temperature Pulse Rate 67 69 70 Pulse Rate [ Anterior Bilateral Throughout] Pulse Rate [ From Monitor] Respiratory 0 L 11 L 12 Rate Respiratory Rate [Anterior Bilateral Throughout] Blood Pressure 91/48 98/53 102/51 O2 Sat by Pulse 100 100 100 Oximetry 12/17/21 12/17/21 12/17/21 11:00 11:15 11:30 Temperature Pulse Rate 70 70 63 Pulse Rate [ Anterior Bilateral Throughout] Pulse Rate [ From Monitor] Respiratory 14 16 0 L Rate Respiratory Rate [Anterior Bilateral Throughout] Blood Pressure 113/74 97/54 98/55 O2 Sat by Pulse 100 100 100 Oximetry 12/17/21 12/17/21 12/17/21 11:45 12:00 12:19 Temperature 97.7 F Pulse Rate 60 62 65 Pulse Rate [ Anterior Bilateral Throughout] Pulse Rate [ 62 From Monitor] Respiratory 0 L 0 L Rate Respiratory Rate [Anterior Bilateral Throughout] Blood Pressure 104/52 96/45 102/53 O2 Sat by Pulse 100 100 100 Oximetry Constitutional: no acute distress (sedated), other (elderly female with mildly increased respiratory effort at rest) Eyes: non-icteric ENT: oropharynx moist, other (ETT 23 cm JUSTIN) Neck: supple, no JVD Effort: mildly labored Ascultation: Bilateral: rhonchi Percussion: Bilateral: not dull Cardiovascular: regular rate and rhythm Gastrointestinal: normoactive bowel sounds, soft, non-tender, non-distended (protuberant) Integumentary: other (Left upper extremity AV graft; right forearm blisters (closed) and induration; no erythema or pus) Extremities: no cyanosis, pulses normal, edema (right upper extremity) Neurologic: non-focal exam (grossly), pupils equal and round, unable to assess Psychiatric: other (unable to assess re: AMS) CBC and BMP: 12/17/21 04:00 12/17/21 04:30 ABG, PT/INR, D-dimer: ABG ABG pH 7.359 pH Units (7.350-7.450) 12/16/21 11:06 ABG pCO2 46.1 mm Hg 12/16/21 11:06 ABG pO2 137.7 mm Hg (80.0-90.0) H 12/16/21 11:06 ABG O2 Saturation 98.6 % (95.0-99.0) 12/16/21 11:06 Abnormal lab findings: Abnormal Labs 12/11/21 12/11/21 12/12/21 14:52 15:40 04:43 WBC RBC 3.57 L Hgb 9.4 L Hct 29.5 L MCH 26 L 27 L RDW 17.8 H 17.9 H Plt Count 119 L 110 L Lymph % (Auto) 4.0 L Lymph # (Auto) 0.3 L Seg Neutrophils % 90.0 H Seg Neuts % (Manual) Lymphocytes % (Manual) Monocytes % (Manual) Seg Neutrophils # Seg Neutrophils # Man Lymphocytes # (Manual) ABG pO2 ABG O2 Saturation ABG Base Excess ABG Hemoglobin VBG pO2 Oxyhemoglobin Sodium Potassium Chloride Carbon Dioxide 18 L BUN 76 H Creatinine 9.2 H Glucose POC Glucose Lactic Acid Calcium 7.7 L Phosphorus Magnesium Alkaline Phosphatase 237 H Troponin T 0.168 H* C-Reactive Protein Albumin 3.6 L LDL Cholesterol Direct 16 L 12/12/21 12/12/21 12/12/21 04:43 04:43 08:49 WBC RBC Hgb Hct MCH RDW Plt Count Lymph % (Auto) Lymph # (Auto) Seg Neutrophils % Seg Neuts % (Manual) Lymphocytes % (Manual) Monocytes % (Manual) Seg Neutrophils # Seg Neutrophils # Man Lymphocytes # (Manual) ABG pO2 ABG O2 Saturation ABG Base Excess ABG Hemoglobin VBG pO2 Oxyhemoglobin Sodium 136 L Potassium Chloride 96.0 L Carbon Dioxide BUN 85 H Creatinine 9.6 H Glucose 57 L POC Glucose 47 L Lactic Acid Calcium 7.8 L Phosphorus Magnesium Alkaline Phosphatase Troponin T 0.175 H* C-Reactive Protein Albumin LDL Cholesterol Direct 12/12/21 12/13/21 12/13/21 11:12 07:30 07:30 WBC RBC Hgb 9.7 L Hct 30.0 L MCH 27 L RDW 18.0 H Plt Count 99 L Lymph % (Auto) 4.8 L Lymph # (Auto) 0.3 L Seg Neutrophils % 88.2 H Seg Neuts % (Manual) Lymphocytes % (Manual) Monocytes % (Manual) Seg Neutrophils # Seg Neutrophils # Man Lymphocytes # (Manual) ABG pO2 ABG O2 Saturation ABG Base Excess ABG Hemoglobin VBG pO2 Oxyhemoglobin Sodium Potassium 5.1 H Chloride 97.8 L Carbon Dioxide 16 L BUN 92 H Creatinine 10.6 H Glucose 121 H POC Glucose 64 L Lactic Acid Calcium 7.6 L Phosphorus Magnesium Alkaline Phosphatase Troponin T C-Reactive Protein Albumin LDL Cholesterol Direct 12/13/21 12/13/21 12/13/21 08:06 11:32 16:59 WBC RBC Hgb Hct MCH RDW Plt Count Lymph % (Auto) Lymph # (Auto) Seg Neutrophils % Seg Neuts % (Manual) Lymphocytes % (Manual) Monocytes % (Manual) Seg Neutrophils # Seg Neutrophils # Man Lymphocytes # (Manual) ABG pO2 ABG O2 Saturation ABG Base Excess ABG Hemoglobin VBG pO2 Oxyhemoglobin Sodium Potassium Chloride Carbon Dioxide BUN Creatinine Glucose POC Glucose 118 H 128 H 130 H Lactic Acid Calcium Phosphorus Magnesium Alkaline Phosphatase Troponin T C-Reactive Protein Albumin LDL Cholesterol Direct 12/13/21 12/14/21 12/14/21 20:16 11:10 11:10 WBC RBC Hgb 9.9 L Hct MCH 27 L RDW 18.1 H Plt Count 82 L Lymph % (Auto) 5.8 L Lymph # (Auto) 0.4 L Seg Neutrophils % 88.3 H Seg Neuts % (Manual) Lymphocytes % (Manual) Monocytes % (Manual) Seg Neutrophils # Seg Neutrophils # Man Lymphocytes # (Manual) ABG pO2 ABG O2 Saturation ABG Base Excess ABG Hemoglobin VBG pO2 Oxyhemoglobin Sodium Potassium Chloride Carbon Dioxide 21 L BUN 57 H Creatinine 7.1 H Glucose 105 H POC Glucose 113 H Lactic Acid Calcium Phosphorus Magnesium Alkaline Phosphatase Troponin T C-Reactive Protein Albumin LDL Cholesterol Direct 12/14/21 12/14/21 12/15/21 11:46 16:41 04:11 WBC RBC Hgb 9.9 L Hct 30.0 L MCH 27 L RDW 18.4 H Plt Count 57 L Lymph % (Auto) Lymph # (Auto) Seg Neutrophils % Seg Neuts % (Manual) Lymphocytes % (Manual) 9.0 L Monocytes % (Manual) 10.0 H Seg Neutrophils # Seg Neutrophils # Man Lymphocytes # (Manual) 0.6 L ABG pO2 ABG O2 Saturation ABG Base Excess ABG Hemoglobin VBG pO2 Oxyhemoglobin Sodium Potassium Chloride Carbon Dioxide BUN Creatinine Glucose POC Glucose 108 H 111 H Lactic Acid Calcium Phosphorus Magnesium Alkaline Phosphatase Troponin T C-Reactive Protein Albumin LDL Cholesterol Direct 12/15/21 12/15/21 12/15/21 04:11 08:48 10:02 WBC RBC Hgb Hct MCH RDW Plt Count Lymph % (Auto) Lymph # (Auto) Seg Neutrophils % Seg Neuts % (Manual) Lymphocytes % (Manual) Monocytes % (Manual) Seg Neutrophils # Seg Neutrophils # Man Lymphocytes # (Manual) ABG pO2 ABG O2 Saturation ABG Base Excess ABG Hemoglobin VBG pO2 Oxyhemoglobin Sodium Potassium Chloride Carbon Dioxide 19 L BUN 68 H Creatinine 7.6 H Glucose POC Glucose 68 L 65 L Lactic Acid Calcium 8.1 L Phosphorus Magnesium Alkaline Phosphatase Troponin T C-Reactive Protein Albumin LDL Cholesterol Direct 12/15/21 12/15/21 12/15/21 10:20 10:51 14:40 WBC RBC Hgb Hct MCH RDW Plt Count Lymph % (Auto) Lymph # (Auto) Seg Neutrophils % Seg Neuts % (Manual) Lymphocytes % (Manual) Monocytes % (Manual) Seg Neutrophils # Seg Neutrophils # Man Lymphocytes # (Manual) ABG pO2 ABG O2 Saturation ABG Base Excess ABG Hemoglobin VBG pO2 Oxyhemoglobin Sodium Potassium Chloride Carbon Dioxide BUN Creatinine Glucose POC Glucose 59 L 60 L Lactic Acid 2.50 H* Calcium Phosphorus Magnesium Alkaline Phosphatase Troponin T C-Reactive Protein Albumin LDL Cholesterol Direct 12/15/21 12/15/21 12/16/21 14:40 19:50 05:00 WBC 12.4 H RBC Hgb 9.6 L Hct 29.4 L MCH 26 L RDW 18.1 H Plt Count 40 L Lymph % (Auto) Lymph # (Auto) Seg Neutrophils % Seg Neuts % (Manual) 95.0 H Lymphocytes % (Manual) 5.0 L Monocytes % (Manual) Seg Neutrophils # Seg Neutrophils # Man 11.8 H Lymphocytes # (Manual) 0.6 L ABG pO2 463.3 H ABG O2 Saturation 99.6 H ABG Base Excess ABG Hemoglobin 10.9 L VBG pO2 > 258.0 H Oxyhemoglobin Sodium Potassium Chloride Carbon Dioxide BUN Creatinine Glucose POC Glucose Lactic Acid Calcium Phosphorus Magnesium Alkaline Phosphatase Troponin T C-Reactive Protein 38.50 H Albumin LDL Cholesterol Direct 12/16/21 12/16/21 12/16/21 05:00 06:15 09:58 WBC RBC Hgb Hct MCH RDW Plt Count Lymph % (Auto) Lymph # (Auto) Seg Neutrophils % Seg Neuts % (Manual) Lymphocytes % (Manual) Monocytes % (Manual) Seg Neutrophils # Seg Neutrophils # Man Lymphocytes # (Manual) ABG pO2 48.0 L ABG O2 Saturation 80.5 L ABG Base Excess -2.9 L ABG Hemoglobin 11.2 L VBG pO2 Oxyhemoglobin 78.8 L Sodium Potassium Chloride Carbon Dioxide BUN 75 H Creatinine 7.7 H Glucose POC Glucose 67 L Lactic Acid Calcium 8.3 L Phosphorus Magnesium Alkaline Phosphatase Troponin T C-Reactive Protein Albumin LDL Cholesterol Direct 12/16/21 12/16/21 12/17/21 11:06 23:24 04:00 WBC 12.3 H RBC 3.32 L Hgb 8.8 L Hct 26.5 L MCH 26 L RDW 18.0 H Plt Count 27 L Lymph % (Auto) 5.9 L Lymph # (Auto) 0.7 L Seg Neutrophils % 88.3 H Seg Neuts % (Manual) Lymphocytes % (Manual) Monocytes % (Manual) Seg Neutrophils # 10.9 H Seg Neutrophils # Man Lymphocytes # (Manual) ABG pO2 137.7 H ABG O2 Saturation ABG Base Excess ABG Hemoglobin 9.9 L VBG pO2 Oxyhemoglobin Sodium Potassium Chloride Carbon Dioxide BUN Creatinine Glucose POC Glucose 110 H Lactic Acid Calcium Phosphorus Magnesium Alkaline Phosphatase Troponin T C-Reactive Protein Albumin LDL Cholesterol Direct 12/17/21 12/17/21 04:30 04:30 WBC RBC Hgb Hct MCH RDW Plt Count Lymph % (Auto) Lymph # (Auto) Seg Neutrophils % Seg Neuts % (Manual) Lymphocytes % (Manual) Monocytes % (Manual) Seg Neutrophils # Seg Neutrophils # Man Lymphocytes # (Manual) ABG pO2 ABG O2 Saturation ABG Base Excess ABG Hemoglobin VBG pO2 Oxyhemoglobin Sodium Potassium Chloride Carbon Dioxide BUN 43 H Creatinine 5.0 H Glucose 129 H POC Glucose Lactic Acid Calcium 7.8 L Phosphorus 1.90 L Magnesium 1.60 L Alkaline Phosphatase Troponin T C-Reactive Protein Albumin LDL Cholesterol Direct Chest x-ray: image reviewed (stable lines & tubes; increased interstitial markings) Allied health notes reviewed: nursing
[2021-12-17] MEDS: methylPREDNISolone Sod Succinate 125 MG/2 ML INJ IV SCH ×3 (14:07→21:47)
[2021-12-17] MEDS ORDERED: SODIUM CHLORIDE 0.9% 1000 ML 2,000 ML ONE (14:12)
[2021-12-17] MEDS: cefTRIAXone/NS 2 GM/100 ML 2 GM/100 ML BAG IV SCH (14:15)
[2021-12-17] MEDS: SODIUM CHLORIDE 0.9% 1000 ML 1,000 ML IV SCH (14:40)
--- NOTE | 2021-12-17 14:40 | Progress Note ---
Assessment and Plan Assessment and plan: This is a 66-year-old female with HTN, MA (2007), seizure disorder, CVA (2007), CHF, CAD, ESRD on HD, GERD admitted with presyncope however now with beta- hemolytic Streptococcus group B bacteremia, sepsis, acute proximal respiratory failure Neuro: Acute metabolic encephalopathy, h/o seizure disorder and 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 -Sedated with fentanyl -RASS goal 0 to -1 -Avoid delirium -Reorientation as needed -Maintain sleep-wake cycle -Aspiration/seizure precautions -Keppra -As needed analgesia -CT head showed small quantity of increased attenuation in the central debora likely related to calcification and hemorrhage not favored, venous collaterals seen within the base of the neck and patient has a left brachiocephalic stent, nonspecific prominent left supraclavicular lymph node, multinodular nodular thyroid gland -Neurology consulted, appreciate recommendations Cardiac: NSTEMI, severe cardiomyopathy with reduced EF, h/o HTN, MA, CAD with MA (2007) s/p PCI , HLD -Cardiology consulted, appreciate recommendations -Blood pressure monitoring per protocol -Vasopressor support with Levophed and vasopressin -MAP goal greater than 65 -Per cardio: Echocardiogram (completed 2 weeks prior to this admission) showed a moderate severity cardiomyopathy, ejection fraction 35 to 40%. -Echo thsi admit shows LVEF 30 to 35%, no valvular vegetations -S/p dobutamine -Continue Lipitor and aspirin -Midodrine -steroids -Hold home antihypertensive regimen in setting of hypotension Respiratory: Acute hypoxic respiratory failure -CCM consulted, appreciate recommendations -Intubated 5/2 with 7.5 oett at 20 at the lips -A.m. vent settings: Assist-control rate 16, tidal volume 450, PEEP 8, FiO2 40% -See RT notes for titration -A.m. ABG and CXR noted -VAP bundle -SPO2 monitoring GI: Protein calorie malnutrition, h/o GERD -24 hours -593 mL -PPI -NTR consulted for tube feedings -BR: Senokot : ESRD on HD, hypomagnesemia, hypophosphatemia -Nephrology consulted, appreciate recommendations -HD per nephrology -Strict intake and output -Renally dose medications -Avoid nephrotoxic medications -Daily weights -PhosLo and Renvela -d/c d/t low phos -Replete Mag ID: Sepsis secondary to beta-hemolytic strep group B -Infectious disease consulted, appreciate recommendations -S/p removal of right upper chest PermCath -cath culture with beta-hemolytic strep group B -Antibiotic therapy with ceftriaxone -f/u blood culture -SHOAIB without vegetation -Monitor WBC and temperature curve Endo: Multinodular thyroid gland, h/o IDDM -Multinodular thyroid gland noted on CT head -Dedicated thyroid ultrasound recommended -Avoid hypoglycemia -SSI -Accu-Cheks ACHS Heme: Leukocytosis, AOCD, thrombocyopenia -Trend CBC -Transfuse hemoglobin less than 7 -Monitor for signs of bleeding -SCDs to BLE while in bed -heparin subq dc -HIT panel sent -Hematology/oncology consulted -Steroids -Monitor plts MS: S/p fall at home with contusion of right lower extremity, pain and swelling -CT head/C-spine/pelvis showed no acute fracture or dislocation -XR L-spine/right tib-fib/fib/right femur/right hip and pelvis showed no acute fracture or dislocation. -PT consulted The high probability of a clinically significant, sudden or life threatening deterioration of the [multi] system(s) required my full and direct attention, intervention and personal management. The aggregate critical care time was [60] minutes. This time is in addition to time spent performing reported procedures but includes the following: [x] Data Review and interpretation [x] Patient assessment and monitoring of vital signs [x] Documentation [x] Medication orders and management Disposition Plan: icu Total Time Spent with Patient (Minutes): 60 History Interval history: This is a 66 year old female with HTN, seizure disorder, type II DM, 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, MA (2007 (s/p PCI, ESRD on HD, CHF, CAD GERD who presented to the hospital on 12/11 s/p fall which occurred 2 days prior to arrival. Patient stated that she felt dizzy and then found herself on the ground. In the emergency department patient was found to have elevated troponin, elevated BUN/creatinine at 9.2/76, CXR showed pulmonary edema and CT head/C-spine/pelvis showed no acute fracture or dislocation and x-ray L- spine/right tib-fib/fib/right femur/right hip and pelvis showed no acute fracture or dislocation. Patient was admitted to the hospitalist service with consults to nephrology and cardiology. Hospital course to date: 12/12: No acute events overnight, reports extreme pain in her right leg, denies chest pain or shortness of breath 12/13: No acute events overnight, patient tearful and complaining of right leg pain however she is refusing analgesic medication 12/14: Continues to have right leg pain, does not participate in interview 12/15: Patient transferred to the ICU for hypotension on Levophed drip however she was weaned off by morning and midodrine was increased due to borderline MAP. Blood cultures grew 11/17 gram-positive cocci with suspected right upper chest p ermacath source. Patient started on vancomycin and infectious disease consulted. Plan for IR consult for permacath removal and assessment of aVF functioning. Possible temporary Vas-Cath placement for hemodialysis. Patient is encephalopathic likely secondary to sepsis. Continue current antibiotics and repeat 2D echo and blood cultures in the a.m. Right upper extremity swelling and pain noted and right upper extremity XR and Doppler ordered. 12/16: Patient noted to have blisters on left arm and RN asked to elevate and place cool compresses to site. AV fistula on left upper extremity access by hemodialysis nurse and hemodialysis ongoing. Vasopressin ordered in efforts to wean Levophed while on hemodialysis. Echocardiogram repeated. Blood cultures grew beta-hemolytic strep group B and antibiotics changed to ceftriaxone. Dobutamine drip discontinued. Remained sedated on fentanyl drip. 12/17: Thrombocytopenia worse today, unable to tolerate being off vasopressin, started on steroids, HIT assay ordered-discontinued. SCDs for now. [facility] will like to give normal saline 100 ml/hr for 2 L. Hospitalist Physical - Constitutional Vitals: Temp Pulse Resp BP Pulse Ox 97.7 F 66 16 100/56 100 12/17/21 12:00 12/17/21 14:16 12/17/21 14:16 12/17/21 13:45 12/17/21 13:45 General appearance: Present: no acute distress, other (intubated) - EENT Eyes: Present: PERRL, EOM intact ENT: poor dentition - Neck Neck: Present: normal ROM - Respiratory Respiratory effort: normal Respiratory: bilateral: diminished - Cardiovascular Rhythm: regular Heart Sounds: Present: S1 & S2. Absent: systolic murmur, diastolic murmur - Extremities Extremities: no ischemia, pulses intact, pulses symmetrical, normal temperature, normal color Peripheral Pulses: within normal limits - Abdominal General gastrointestinal: soft, non-tender, non-distended, normal bowel sounds - Integumentary Integumentary: Present: warm (multiple not intact blisters to RUE, one intact blister), dry - Psychiatric Psychiatric: other - Neurologic Neurologic: other (opens eyes to verbal stimuli, withdraw to pain) - Allied Health Allied health notes reviewed: nursing, RT, social work HEART Score - HEART Score Troponin: Troponin T 0.175 ng/mL (0.00-0.029) H* 12/12/21 04:43 Results - Labs CBC & Chem 7: 12/17/21 04:00 12/17/21 04:30 Labs: Laboratory Last Values WBC 12.3 K/mm3 (4.5-11.0) H 12/17/21 04:00 RBC 3.32 M/mm3 (3.65-5.03) L 12/17/21 04:00 Hgb 8.8 gm/dl (10.1-14.3) L 12/17/21 04:00 Hct 26.5 % (30.3-42.9) L 12/17/21 04:00 MCV 80 fl (79-97) 12/17/21 04:00 MCH 26 pg (28-32) L 12/17/21 04:00 MCHC 33 % (30-34) 12/17/21 04:00 RDW 18.0 % (13.2-15.2) H 12/17/21 04:00 Plt Count 27 K/mm3 (140-440) L 12/17/21 04:00 Lymph % (Auto) 5.9 % (13.4-35.0) L 12/17/21 04:00 [place] % (Auto) 4.6 % (0.0-7.3) 12/17/21 04:00 Eos % (Auto) 0.4 % (0.0-4.3) 12/17/21 04:00 Baso % (Auto) 0.8 % (0.0-1.8) 12/17/21 04:00 Lymph # (Auto) 0.7 K/mm3 (1.2-5.4) L 12/17/21 04:00 [place] # (Auto) 0.6 K/mm3 (0.0-0.8) 12/17/21 04:00 Eos # (Auto) 0.0 K/mm3 (0.0-0.4) 12/17/21 04:00 Baso # (Auto) 0.1 K/mm3 (0.0-0.1) 12/17/21 04:00 Add Manual Diff Complete 12/16/21 05:00 Total Counted 100 12/16/21 05:00 Seg Neutrophils % 88.3 % (40.0-70.0) H 12/17/21 04:00 Seg Neuts % (Manual) 95.0 % (40.0-70.0) H 12/16/21 05:00 Band Neutrophils % 0 % 12/16/21 05:00 Lymphocytes % (Manual) 5.0 % (13.4-35.0) L 12/16/21 05:00 Reactive Lymphs % (Man) 0 % 12/16/21 05:00 Monocytes % (Manual) 0 % (0.0-7.3) 12/16/21 05:00 Eosinophils % (Manual) 0 % (0.0-4.3) 12/16/21 05:00 Basophils % (Manual) 0 % (0.0-1.8) 12/16/21 05:00 Metamyelocytes % 0 % 12/16/21 05:00 Myelocytes % 0 % 12/16/21 05:00 Promyelocytes % 0 % 12/16/21 05:00 Blast Cells % 0 % 12/16/21 05:00 Nucleated RBC % Not Reportable 12/16/21 05:00 Seg Neutrophils # 10.9 K/mm3 (1.8-7.7) H 12/17/21 04:00 Seg Neutrophils # Man 11.8 K/mm3 (1.8-7.7) H 12/16/21 05:00 Band Neutrophils # 0.0 K/mm3 12/16/21 05:00 Lymphocytes # (Manual) 0.6 K/mm3 (1.2-5.4) L 12/16/21 05:00 Abs React Lymphs (Man) 0.0 K/mm3 12/16/21 05:00 Monocytes # (Manual) 0.0 K/mm3 (0.0-0.8) 12/16/21 05:00 Eosinophils # (Manual) 0.0 K/mm3 (0.0-0.4) 12/16/21 05:00 Basophils # (Manual) 0.0 K/mm3 (0.0-0.1) 12/16/21 05:00 Metamyelocytes # 0.0 K/mm3 12/16/21 05:00 Myelocytes # 0.0 K/mm3 12/16/21 05:00 Promyelocytes # 0.0 K/mm3 12/16/21 05:00 Blast Cells # 0.0 K/mm3 12/16/21 05:00 WBC Morphology Not Reportable 12/16/21 05:00 Hypersegmented Neuts Not Reportable 12/16/21 05:00 Hyposegmented Neuts Not Reportable 12/16/21 05:00 Hypogranular Neuts Not Reportable 12/16/21 05:00 Smudge Cells Not Reportable 12/16/21 05:00 Toxic Granulation Not Reportable 12/16/21 05:00 Toxic Vacuolation Not Reportable 12/16/21 05:00 Dohle Bodies Not Reportable 12/16/21 05:00 Pelger-Huet Anomaly Not Reportable 12/16/21 05:00 Charles Rods Not Reportable 12/16/21 05:00 Platelet Estimate Consistent w auto 12/16/21 05:00 Clumped Platelets Not Reportable 12/16/21 05:00 Plt Clumps, EDTA Not Reportable 12/16/21 05:00 Large Platelets Not Reportable 12/16/21 05:00 Giant Platelets Not Reportable 12/16/21 05:00 Platelet Satelliting Not Reportable 12/16/21 05:00 Plt Morphology Comment Not Reportable 12/16/21 05:00 RBC Morphology Not Reportable 12/16/21 05:00 Dimorphic RBCs Not Reportable 12/16/21 05:00 Polychromasia Not Reportable 12/16/21 05:00 Hypochromasia Few 12/16/21 05:00 Poikilocytosis Not Reportable 12/16/21 05:00 Anisocytosis 1+ 12/16/21 05:00 Microcytosis Few 12/16/21 05:00 Macrocytosis Not Reportable 12/16/21 05:00 Spherocytes Not Reportable 12/16/21 05:00 Pappenheimer Bodies Not Reportable 12/16/21 05:00 Sickle Cells Not Reportable 12/16/21 05:00 Target Cells Few 12/16/21 05:00 Tear Drop Cells Not Reportable 12/16/21 05:00 Ovalocytes 1+ 12/16/21 05:00 Helmet Cells Not Reportable 12/16/21 05:00 [place] Bodies Not Reportable 12/16/21 05:00 [place] Rings Not Reportable 12/16/21 05:00 [place] Cells Not Reportable 12/16/21 05:00 Bite Cells Not Reportable 12/16/21 05:00 Crenated Cell Not Reportable 12/16/21 05:00 Elliptocytes Not Reportable 12/16/21 05:00 Acanthocytes (Spur) Not Reportable 12/16/21 05:00 Rouleaux Not Reportable 12/16/21 05:00 Hemoglobin C Crystals Not Reportable 12/16/21 05:00 Schistocytes Not Reportable 12/16/21 05:00 Malaria parasites Not Reportable 12/16/21 05:00 [place]son Bodies Not Reportable 12/16/21 05:00 Hem Pathologist Commnt No 12/16/21 05:00 ABG pH 7.359 pH Units (7.350-7.450) 12/16/21 11:06 ABG pCO2 46.1 mm Hg 12/16/21 11:06 ABG pO2 137.7 mm Hg (80.0-90.0) H 12/16/21 11:06 ABG HCO3 25.4 mmol/L (20.0-26.0) 12/16/21 11:06 ABG O2 Saturation 98.6 % (95.0-99.0) 12/16/21 11:06 ABG O2 Content 13.8 (0.0-44) 12/16/21 11:06 ABG Base Excess -0.3 mmol/L (-2.0-3.0) 12/16/21 11:06 ABG Hemoglobin 9.9 gm/dl (12.0-16.0) L 12/16/21 11:06 ABG Carboxyhemoglobin 1.4 % (0.0-5.0) 12/16/21 11:06 ABG Methemoglobin 0.6 % (0.0-1.5) 12/16/21 11:06 VBG pO2 > 258.0 (25.0-47.0) H 12/15/21 19:50 Oxyhemoglobin 96.6 % (95.0-99.0) 12/16/21 11:06 FiO2 40 % 12/16/21 11:06 Sodium 138 mmol/L (137-145) 12/17/21 04:30 Potassium 3.6 mmol/L (3.6-5.0) 12/17/21 04:30 Chloride 100.2 mmol/L (98-107) 12/17/21 04:30 Carbon Dioxide 22 mmol/L (22-30) 12/17/21 04:30 Anion Gap 19 mmol/L 12/17/21 04:30 BUN 43 mg/dL (7-17) H 12/17/21 04:30 Creatinine 5.0 mg/dL (0.6-1.2) H 12/17/21 04:30 Estimated GFR 11 ml/min 12/17/21 04:30 BUN/Creatinine Ratio 9 % 12/17/21 04:30 Glucose 129 mg/dL (65-100) H 12/17/21 04:30 POC Glucose 110 mg/dL (70-105) H 12/16/21 23:24 Lactic Acid 1.90 mmol/L (0.7-2.0) 12/16/21 05:00 Calcium 7.8 mg/dL (8.4-10.2) L 12/17/21 04:30 Phosphorus 1.90 mg/dL (2.5-4.5) L 12/17/21 04:30 Magnesium 1.60 mg/dL (1.7-2.3) L 12/17/21 04:30 Total Bilirubin 0.60 mg/dL (0.1-1.2) 12/11/21 15:40 AST 22 units/L (5-40) 12/11/21 15:40 ALT 13 units/L (7-56) 12/11/21 15:40 Alkaline Phosphatase 237 units/L (35-129) H 12/11/21 15:40 Troponin T 0.175 ng/mL (0.00-0.029) H* 12/12/21 04:43 C-Reactive Protein 38.50 mg/dL (0.00-1.30) H 12/15/21 14:40 Total Protein 7.4 g/dL (6.3-8.2) 12/11/21 15:40 Albumin 3.6 g/dL (3.9-5) L 12/11/21 15:40 Albumin/Globulin Ratio 0.9 % 12/11/21 15:40 Triglycerides 92 mg/dL (2-149) 12/11/21 15:40 Cholesterol 72 mg/dL (50-199) 12/11/21 15:40 LDL Cholesterol Direct 16 mg/dL (50-130) L 12/11/21 15:40 HDL Cholesterol 41 mg/dL (40-59) 12/11/21 15:40 Cholesterol/HDL Ratio 1.75 % 12/11/21 15:40 Procalcitonin 46.16 ng/mL (<0.15) 12/15/21 04:11 Random Vancomycin 15.6 ug/mL (0-40.0) 12/16/21 05:00 Blood Type O POSITIVE 12/17/21 09:30 Antibody Screen Negative 12/17/21 09:30 Microbiology: Microbiology 12/16/21 09:57 Peripheral/Venous Blood Culture - Preliminary NO GROWTH AFTER 24 HOURS 12/16/21 10:03 Peripheral/Venous Blood Culture - Preliminary NO GROWTH AFTER 24 HOURS 12/15/21 20:00 Tracheal Aspirate Sputum Culture - Preliminary 12/15/21 15:53 Vascular Cath Catheter Tip Culture - Preliminary Beta Hemolytic Strep Group B 12/13/21 23:43 Peripheral/Venous Blood Culture - Final Beta Hemolytic Strep Group B 12/13/21 23:47 Peripheral/Venous Blood Culture - Final Beta Hemolytic Strep Group B Active Medications - Current Medications Current Medications: Generic Name Dose Route Start Last Admin Trade Name Freq PRN Reason Stop Dose Admin Acetaminophen 650 mg 12/13/21 23:00 12/13/21 23:18 Acetaminophen 650 Mg Rect Supp ID 650 mg Q4H PRN Administration Pain, Mild (1-3) Albuterol 2.5 mg 12/11/21 22:14 Albuterol 2.5 Mg/3 Ml Nebu IH Q6HR PRN Wheezing Albuterol/Ipratropium 1 ampul 12/14/21 08:00 12/17/21 13:58 Ipratropium/Albuterol Sulfate 3 Ml Ampul.Neb IH 1 ampul TIDRT KRISTA Administration Lipase/Protease/Amylase 1 each 12/16/21 11:15 Lipase 10,500/Protease 25,000/Amylase 43,750 (Units) Dr Cap FEEDTUBE PRN PRN For Clogged Feeding Tube Aspirin 81 mg 12/15/21 10:00 12/17/21 09:48 Aspirin 81 Mg Tab Chew FEEDTUBE 81 mg QDAY KRISTA Administration Atorvastatin Calcium 80 mg 12/15/21 22:00 12/16/21 21:06 Atorvastatin 40 Mg Tab FEEDTUBE 80 mg QHS KRISTA Administration Budesonide 0.5 mg 12/13/21 08:00 12/17/21 08:06 Budesonide 0.5 Mg/2 Ml Nebu IH 0.5 mg Q12HRT KRISTA Administration Dextrose 50 ml 12/11/21 22:23 12/16/21 06:24 Dextrose 50% In Water (25gm) 50 Ml Syringe IV 15 ml Q30MIN PRN Administration Hypoglycemia Protocol Famotidine 10 mg 12/15/21 22:00 12/17/21 09:48 Famotidine 10 Mg Tab FEEDTUBE 10 mg BID KRISTA Administration Fentanyl 50 mcg 12/15/21 17:19 12/15/21 17:58 Fentanyl 100 Mcg/2 Ml Inj IV 50 mcg Q10MIN PRN Administration ANALGESIA Hydrophilic Ointment 1 applic 12/16/21 14:30 Lip Therapy Vaseline TP Q2HR PRN Dry Lips Sodium Chloride 100 mls @ 999 mls/hr 12/12/21 12:00 Nacl 0.9% IV ABLE PRN Hypotension NORepinephrine/NS 8 MG-250 ML 8 mg in 250 mls @ 3.75 mls/hr 12/14/21 23:00 12/17/21 11:47 Norepinephrine/Ns 8 Mg-250 Ml (Double Conc) IV 6 mcg/min TITRATE KRISTA 11.25 mls/hr Titration Protocol 2 MCG/MIN Fentanyl Citrate 2,000 mcg in 100 mls @ 2.945 mls/hr 12/15/21 18:00 12/17/21 06:09 Fentanyl Drip Premix IV 3 mcg/kg/hr TITR KRISTA 8.835 mls/hr Administration Protocol 1 MCG/KG/HR Vasopressin 20 unit/ Sodium 101 mls @ 9.09 mls/hr 12/16/21 10:00 12/17/21 10:28 Chloride IV 0.03 units/min TITR KRISTA 9.09 mls/hr Titration Protocol 0.03 UNITS/MIN Ceftriaxone Sodium 2 gm in 100 mls @ 200 mls/hr 12/16/21 15:00 12/17/21 14:15 Rocephin/Ns 2 Gm/100 Ml IV 200 mls/hr Q24H KRISTA Administration Protocol Sodium Chloride 1,000 mls @ 100 mls/hr 12/17/21 14:15 Nacl 0.9% 1000 Ml IV 12/19/21 00:14 DIRECT KRISTA Insulin Human Lispro 0 unit 12/15/21 12:00 12/17/21 11:29 Insulin Lispro 100 Unit/Ml SUB-Q Not Given Q6HR [facility] Protocol Levetiracetam 500 mg 12/16/21 18:00 12/16/21 20:45 Levetiracetam 500 Mg/5 Ml Oral Liqd FEEDTUBE 500 mg TuThSa KRISTA Administration Methylprednisolone Sodium Succinate 60 mg 12/17/21 14:00 12/17/21 14:16 Methylprednisolone Sod Succinate 125 Mg/2 Ml Inj IV 12/20/21 13:59 60 mg Q8HR KRISTA Administration Midodrine 10 mg 12/15/21 12:00 12/17/21 11:41 Midodrine 10 Mg Tab FEEDTUBE 10 mg TID@0800,1200,1600 KRISTA Administration Morphine Sulfate 2 mg 12/11/21 22:11 Morphine 4 Mg/1 Ml Inj IV Q5MIN PRN Chest Pain unrelieved by NTG Multi-Ingred Cream/Lotion/Oil/Oint 1 applic 12/16/21 14:10 Mineral Oil/Petrolatum, White Ophth Oint 3.5 Gm OU Q4HR PRN Dry Eye(s) Nitroglycerin 0.4 mg 12/11/21 22:11 Nitroglycerin 0.4 Mg Tab Subl SL Q5M PRN Chest Pain Senna/Docusate Sodium 1 tab 12/16/21 22:00 12/17/21 09:48 Sennosides/Docusate Sodium 8.6/50 Mg Tab FEEDTUBE 1 tab BID KRISTA Administration Simple Syrup 15 ml 12/16/21 11:15 Simple Syrup 15 Ml FEEDTUBE PRN PRN Hypoglycemia Simple Syrup 30 ml 12/16/21 11:15 Simple Syrup 15 Ml FEEDTUBE PRN PRN Hypoglycemia Sodium Bicarbonate 325 mg 12/16/21 11:15 Sodium Bicarbonate 325 Mg Tab FEEDTUBE PRN PRN For Clogged Feeding Tube Sodium Chloride 10 ml 12/11/21 22:11 12/16/21 08:59 Sodium Chloride 0.9% 10 Ml Flush Syringe IV 10 ml PRN PRN Administration LINE FLUSH Nutrition/Malnutrition Assess - Dietary Evaluation Nutrition/Malnutrition Findings: Nutrition Notes Start: 12/12/21 11:57 Freq: Status: Active Protocol: Document 12/16/21 12:42 EVERARDO (Rec: 12/16/21 13:25 EVERARDO [id number]) Nutrition Notes Need for Assessment generated from: MD Order Initial or Follow up Reassessment Current Diagnosis CKD (stage V CKD),Diabetes, Sepsis,Hypertension, Respiratory Failure Other Pertinent Diagnosis CKD+HD, Hypotension, GPC Bacteremia, s/p Fall, ... Current Diet TF-Nepro w/CARBSTEADY @ 30 ml/ hr (from L 12/17). Labs/Tests 12/16: BUN 75, Crea 7.7, Ca 8. 3. Pertinent Medications 11/16: Vasopressin 20 U/101 ml @ 9.09 ml/hr, others nutritionally unremarkable. Height 4 ft 11 in Weight 58.9 kg [place] Body Weight (kg) 43.18 BMI 26.2 Weight change and time frame No body weight change reported . Weight Status Appropriate Subjective/Other Information RD consult for write/manage TF . TF was already prepared yesterday, I will place the order. Pt is on Mechanical ventilation, O2 saturation @ 100%, according to Physical Assessment History notes. Pt's HD is running on L-arm AV Graft, according to Progress notes. On 12/16, HD had to be suspended, due to Pt's worsening condition and increasing Pressor requirement , according to Event note. Percent of energy/protein needs met: Prescribed TF-Nepro w/ CARBSTEADY @ 30 ml/hr provides for energy/protein needs (1, 296 Kcal/58 g) during LOS, 103 % Kcal; 82% AA. Burn Absent Trauma Absent GI Symptoms None Difficulty In Swallowing Food Allergy No Skin Integrity/Comment R-Arm area of concern. Current % PO Other Minimum of two criteria No #1 Nutrition Diagnosis Inadequate oral intake Etiology Encephalopathy and Pt now on Mechanical Ventilation. As Evidenced by Signs and Symptoms Pt continues on NPO. Is patient on ventilator? Yes Is Patient Ambulatory and/or Out of Bed No [facility] 1258.99 Calculation Used for Recommendations [facility] Additional Notes Protein: >1.2 g/Kg ABW; >71 g/ day. Fluids: 1-1.5 L/day, or as per MD. Nutrition Intervention Nutrition Support: Start TF-Nepro w/CARBSTEADY @ 30 ml/hr. Flush: 130 ml water Q 4 hr, or as per MD. Kcal 1,296 Protein (gm) 58 Carbohydrates (gm) 116 Fat (gm) 69 Fluid (mL) 523 Fiber (gm) 9 % RDI: 103% Kcal; 82% AA. Goal #1 Provide at least 75% of energy /protein needs through Enteral Feeding during LOS. Goal #2 Maintain body weight within +/ -3% of admission body weight during LOS. Follow-Up By: 12/19/21 Additional Comments Start monitoring TF tolerance and BM.
[2021-12-17 14:51] LABS: ABG Base Excess -3.3 mmol/L (-2.0-3.0); ABG HCO3 22.8 mmol/L (20.0-26.0); ABG Methemoglobin 0.5 % (0.0-1.5); ABG Oxygen Saturation 93.7 % (95.0-99.0); ABG PCO2 45.6 mm Hg; ABG PH 7.316 pH Units (7.350-7.450)
--- NOTE | 2021-12-17 16:04 | Hem/Onc Consultation ---
History of Present Illness - Reason for Consult Consult date: 12/17/21 Thrombocytopenia - History of Present Illness Heme consult note Discussed with RN, televisit cart unavailable CPT 83239 Dx Thrombocytopenia This is a 66yo female who presented to [facility] ED on 12/11 s/p fall which occurred 2 days prior to arrival. Patient stated that she felt dizzy and then found herself on the ground. 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 In the emergency department patient was found to have elevated troponin, elevated BUN/creatinine at 9.2/76, CXR showed pulmonary edema and CT head/C-spine/pelvis showed no acute fracture or dislocation and x-ray L- spine/right tib-fib/fib/right femur/right hip and pelvis showed no acute fracture or dislocation. Patient decompensated 12/15, requiring intubation. Sepsis secondary to beta-hemolytic strep group B. Platelets noted decreasing. Hematology consulted for evaluation of thrombocytopenia. DATA REVIEWED BELOW IMP: Thrombocytopenia, ITP due to sepsis vs HIT Microcytic anemia, due to acute illness, and renal insufficiency, iron deficiency is possible Doubt heme malignancy PLAN: Continue solu medrol 1mg/kg BID Pf4 ab pending Labs to include iron studies, fibrinogen, ldh, retic, haptoglobin Transfuse 1 dose of plts whenever plt count <20 Laboratory Last Values WBC 12.3 K/mm3 (4.5-11.0) H 12/17/21 04:00 Hgb 8.8 gm/dl (10.1-14.3) L 12/17/21 04:00 Hct 26.5 % (30.3-42.9) L 12/17/21 04:00 MCV 80 fl (79-97) 12/17/21 04:00 Plt Count 27 K/mm3 (140-440) L 12/17/21 04:00 Lymph % (Auto) 5.9 % (13.4-35.0) L 12/17/21 04:00 Lymph # (Auto) 0.7 K/mm3 (1.2-5.4) L 12/17/21 04:00 Seg Neutrophils % 88.3 % (40.0-70.0) H 12/17/21 04:00 Seg Neuts % (Manual) 95.0 % (40.0-70.0) H 12/16/21 05:00 Lymphocytes % (Manual) 5.0 % (13.4-35.0) L 12/16/21 05:00 Seg Neutrophils # 10.9 K/mm3 (1.8-7.7) H 12/17/21 04:00 Seg Neutrophils # Man 11.8 K/mm3 (1.8-7.7) H 12/16/21 05:00 Band Neutrophils # 0.0 K/mm3 12/16/21 05:00 Lymphocytes # (Manual) 0.6 K/mm3 (1.2-5.4) L 12/16/21 05:00 Creatinine 5.0 mg/dL (0.6-1.2) H 12/17/21 04:30 AST 22 units/L (5-40) 12/11/21 15:40 ALT 13 units/L (7-56) 12/11/21 15:40 Alkaline Phosphatase 237 units/L (35-129) H 12/11/21 15:40 Troponin T 0.175 ng/mL (0.00-0.029) H* 12/12/21 04:43 C-Reactive Protein 38.50 mg/dL (0.00-1.30) H 12/15/21 14:40 Blood Type O POSITIVE 12/17/21 09:30 Antibody Screen Negative 12/17/21 09:30 Past History Past Medical History: ESRD, GERD, heart failure, hypertension, renal failure Past Surgical History: Other (Right anterior chest hemodialysis port) Social history: no significant social history Family history: no significant family history, hypertension Medications and Allergies Allergies Allergy/AdvReac Type Severity Reaction Status Date / Time No Known Allergies Allergy Verified 12/11/21 22:19 Home Medications Medication Instructions Recorded Confirmed Last Taken Type Albuterol Sulfate [Proair 2 puff IH Q6HR PRN 11/23/21 12/14/21 Unknown History Digihaler] Calcium Acetate 2 tab PO TID 11/23/21 12/14/21 Unknown History Fluticasone/Umeclidin/Vilanter 1 each IH DAILY 11/23/21 12/14/21 Unknown History [Trelegy Ellipta 100-62.5-25] Furosemide [Lasix TAB] 40 mg PO QDAY 11/23/21 12/14/21 Unknown History Insulin Aspart (Nf) [NovoLOG 55 unit SQ TID 11/23/21 12/14/21 Unknown History Flexpen] Insulin Glargine [Lantus VIAL] 25 units SQ QHS 11/23/21 12/14/21 Unknown History Omeprazole 20 mg PO DAILY 11/23/21 12/14/21 Unknown History Spironolactone [Aldactone] 100 mg PO QDAY 11/23/21 12/14/21 Unknown History lisinopriL [Lisinopril] 20 mg PO BID 11/23/21 12/14/21 12/06/21 History 500 MG Docusate Sodium [Colace CAP] 100 mg PO BID PRN #60 capsule 11/24/21 12/14/21 Unknown Rx Aspirin EC [Halfprin EC] 81 mg PO DAILY 90 Days #90 tablet 11/26/21 12/14/21 Unknown Rx Aspirin [Adult Aspirin] 81 mg PO DAILY 90 Days #90 tab 11/26/21 12/14/21 Unknown Rx ISOSORBIDE MONOnitrate [Imdur ER] 60 mg PO QDAY 90 Days #90 tab 11/26/21 12/14/21 Unknown Rx Sevelamer Carbonate [Renvela] 800 mg PO TIDWM 90 Days #270 tab 11/26/21 12/14/21 Unknown Rx amLODIPine 10 mg PO DAILY 90 Days #90 tab 11/26/21 12/14/21 Unknown Rx carvediloL [Coreg] 25 mg PO BID 90 Days #180 tab 11/26/21 12/14/21 Unknown Rx Atorvastatin Calcium [Lipitor] 80 mg PO QHS 90 Days #90 tab 11/27/21 12/14/21 Unknown Rx levETIRAcetam [Keppra TAB] 500 mg PO 3XW 12/14/21 12/14/21 12/06/21 History 500 MG Active Meds: Active Medications Acetaminophen (Acetaminophen 650 Mg Rect Supp) 650 mg NM Q4H PRN PRN Reason: Pain, Mild (1-3) Last Admin: 12/13/21 23:18 Dose: 650 mg Albuterol (Albuterol 2.5 Mg/3 Ml Nebu) 2.5 mg IH Q6HR PRN PRN Reason: Wheezing Albuterol/Ipratropium (Ipratropium/Albuterol Sulfate 3 Ml Ampul.Neb) 1 ampul IH TIDRT [facility] Last Admin: 12/17/21 13:58 Dose: 1 ampul Lipase/Protease/Amylase (Lipase 10,500/Protease 25,000/Amylase 43,750 (Units) Dr Cap) 1 each FEEDTUBE PRN PRN PRN Reason: For Clogged Feeding Tube Aspirin (Aspirin 81 Mg Tab Chew) 81 mg FEEDTUBE QDAY [facility] Last Admin: 12/17/21 09:48 Dose: 81 mg Atorvastatin Calcium (Atorvastatin 40 Mg Tab) 80 mg FEEDTUBE QHS [facility] Last Admin: 12/16/21 21:06 Dose: 80 mg Budesonide (Budesonide 0.5 Mg/2 Ml Nebu) 0.5 mg IH Q12HRT [facility] Last Admin: 12/17/21 08:06 Dose: 0.5 mg Dextrose (Dextrose 50% In Water (25gm) 50 Ml Syringe) 50 ml IV Q30MIN PRN; Protocol PRN Reason: Hypoglycemia Last Admin: 12/16/21 06:24 Dose: 15 ml Famotidine (Famotidine 10 Mg Tab) 10 mg FEEDTUBE BID [facility] Last Admin: 12/17/21 09:48 Dose: 10 mg Fentanyl (Fentanyl 100 Mcg/2 Ml Inj) 50 mcg IV Q10MIN PRN PRN Reason: ANALGESIA Last Admin: 12/15/21 17:58 Dose: 50 mcg Hydrophilic Ointment (Lip Therapy Vaseline) 1 applic TP Q2HR PRN PRN Reason: Dry Lips Sodium Chloride (Nacl 0.9%) 100 mls @ 999 mls/hr IV ABEL PRN PRN Reason: Hypotension NORepinephrine/NS 8 MG-250 ML (Norepinephrine/Ns 8 Mg-250 Ml (Double Conc)) 8 mg in 250 mls @ 3.75 mls/hr IV TITRATE KRISTA; Protocol Last Titration: 12/17/21 15:50 Dose: 8 mcg/min, 15 mls/hr Fentanyl Citrate (Fentanyl Drip Premix) 2,000 mcg in 100 mls @ 2.945 mls/hr IV TITR KRISTA; Protocol Last Admin: 12/17/21 06:09 Dose: 3 mcg/kg/hr, 8.835 mls/hr Vasopressin 20 unit/ Sodium (Chloride) 101 mls @ 9.09 mls/hr IV TITR KRISTA; Protocol Last Titration: 12/17/21 10:28 Dose: 0.03 units/min, 9.09 mls/hr Ceftriaxone Sodium (Rocephin/Ns 2 Gm/100 Ml) 2 gm in 100 mls @ 200 mls/hr IV Q24H [facility]; Protocol Last Admin: 12/17/21 14:15 Dose: 200 mls/hr Sodium Chloride (Nacl 0.9% 1000 Ml) 1,000 mls @ 100 mls/hr IV DIRECT [facility] Stop: 12/19/21 00:14 Last Admin: 12/17/21 14:40 Dose: 100 mls/hr Insulin Human Lispro (Insulin Lispro 100 Unit/Ml) 0 unit SUB-Q Q6HR [facility]; Protocol Last Admin: 12/17/21 11:29 Dose: Not Given Levetiracetam (Levetiracetam 500 Mg/5 Ml Oral Liqd) 500 mg FEEDTUBE TuThSa [facility] Last Admin: 12/16/21 20:45 Dose: 500 mg Methylprednisolone Sodium Succinate (Methylprednisolone Sod Succinate 125 Mg/2 Ml Inj) 60 mg IV Q8HR [facility] Stop: 12/20/21 13:59 Last Admin: 12/17/21 14:16 Dose: 60 mg Midodrine (Midodrine 10 Mg Tab) 10 mg FEEDTUBE TID@0800,1200,1600 [facility] Last Admin: 12/17/21 15:46 Dose: 10 mg Morphine Sulfate (Morphine 4 Mg/1 Ml Inj) 2 mg IV Q5MIN PRN PRN Reason: Chest Pain unrelieved by NTG Multi-Ingred Cream/Lotion/Oil/Oint (Mineral Oil/Petrolatum, White Ophth Oint 3.5 Gm) 1 applic OU Q4HR PRN PRN Reason: Dry Eye(s) Nitroglycerin (Nitroglycerin 0.4 Mg Tab Subl) 0.4 mg SL Q5M PRN PRN Reason: Chest Pain Senna/Docusate Sodium (Sennosides/Docusate Sodium 8.6/50 Mg Tab) 1 tab FEEDTUBE BID [facility] Last Admin: 12/17/21 09:48 Dose: 1 tab Simple Syrup (Simple Syrup 15 Ml) 15 ml FEEDTUBE PRN PRN PRN Reason: Hypoglycemia Simple Syrup (Simple Syrup 15 Ml) 30 ml FEEDTUBE PRN PRN PRN Reason: Hypoglycemia Sodium Bicarbonate (Sodium Bicarbonate 325 Mg Tab) 325 mg FEEDTUBE PRN PRN PRN Reason: For Clogged Feeding Tube Sodium Chloride (Sodium Chloride 0.9% 10 Ml Flush Syringe) 10 ml IV PRN PRN PRN Reason: LINE FLUSH Last Admin: 12/16/21 08:59 Dose: 10 ml Exam - Constitutional Vitals: Last Vital Signs Temp 97.7 F 12/17/21 12:00 Pulse 60 12/17/21 15:01 Resp 19 12/17/21 15:01 BP 99/50 12/17/21 15:01 Pulse Ox 100 12/17/21 15:01 Results - Labs lab Results: Laboratory Results - last 24 hr 12/16/21 12/16/21 12/17/21 18:57 23:24 04:00 WBC 12.3 H RBC 3.32 L Hgb 8.8 L Hct 26.5 L MCV 80 MCH 26 L MCHC 33 RDW 18.0 H Plt Count 27 L Lymph % (Auto) 5.9 L [place] % (Auto) 4.6 Eos % (Auto) 0.4 Baso % (Auto) 0.8 Lymph # (Auto) 0.7 L [place] # (Auto) 0.6 Eos # (Auto) 0.0 Baso # (Auto) 0.1 Seg Neutrophils % 88.3 H Seg Neutrophils # 10.9 H ABG pH ABG pCO2 ABG pO2 ABG HCO3 ABG O2 Saturation ABG O2 Content ABG Base Excess ABG Hemoglobin ABG Carboxyhemoglobin ABG Methemoglobin Oxyhemoglobin FiO2 Sodium Potassium Chloride Carbon Dioxide Anion Gap BUN Creatinine Estimated GFR BUN/Creatinine Ratio Glucose POC Glucose 98 110 H Calcium Phosphorus Magnesium Blood Type Antibody Screen 12/17/21 12/17/21 12/17/21 04:30 04:30 09:30 WBC RBC Hgb Hct MCV MCH MCHC RDW Plt Count Lymph % (Auto) [place] % (Auto) Eos % (Auto) Baso % (Auto) Lymph # (Auto) [place] # (Auto) Eos # (Auto) Baso # (Auto) Seg Neutrophils % Seg Neutrophils # ABG pH ABG pCO2 ABG pO2 ABG HCO3 ABG O2 Saturation ABG O2 Content ABG Base Excess ABG Hemoglobin ABG Carboxyhemoglobin ABG Methemoglobin Oxyhemoglobin FiO2 Sodium 138 Potassium 3.6 Chloride 100.2 Carbon Dioxide 22 Anion Gap 19 BUN 43 H Creatinine 5.0 H Estimated GFR 11 BUN/Creatinine Ratio 9 Glucose 129 H POC Glucose Calcium 7.8 L Phosphorus 1.90 L Magnesium 1.60 L Blood Type O POSITIVE Antibody Screen Negative 12/17/21 14:35 WBC RBC Hgb Hct MCV MCH MCHC RDW Plt Count Lymph % (Auto) [place] % (Auto) Eos % (Auto) Baso % (Auto) Lymph # (Auto) [place] # (Auto) Eos # (Auto) Baso # (Auto) Seg Neutrophils % Seg Neutrophils # ABG pH 7.316 L ABG pCO2 45.6 ABG pO2 74.0 L ABG HCO3 22.8 ABG O2 Saturation 93.7 L ABG O2 Content 11.4 ABG Base Excess -3.3 L ABG Hemoglobin 8.8 L ABG Carboxyhemoglobin 1.6 ABG Methemoglobin 0.5 Oxyhemoglobin 91.7 L FiO2 30 Sodium Potassium Chloride Carbon Dioxide Anion Gap BUN Creatinine Estimated GFR BUN/Creatinine Ratio Glucose POC Glucose Calcium Phosphorus Magnesium Blood Type Antibody Screen
--- NOTE | 2021-12-17 18:35 | Progress Note ---
Assessment and Plan Cultures: Blood culture group B strep Catheter tip culture: Group B strep Blood culture 12/16/2021 pending A/P: 66-year-old female past medical history hypertension, ESRD on HD now with: #Group B strep bacteremia: Source possibly from dialysis. Catheter since been removed. TTE without evidence of vegetations. #Thrombocytopenia: Positive secondary to sepsis. #ESRD on HD: Renally dose antibiotics Recs: -Continue ceftriaxone 2 g every 24 hours we will plan 2 weeks of antibiotics -Follow-up repeat blood cultures Thank you for the consult, we will continue to follow. Tien Shelby MD [facility] O: [phone] F: [phone] Subjective Date of service: 12/17/21 Principal diagnosis: Septic shock ; Bacteremia; ESRD on dialysis; AMS; NSTEMI; HTN; DM II Interval history: Afebrile, white count 12.3 just similar to yesterday. Objective - Exam Narrative Exam: Physical Exam: Constitutional: Alert, cooperative. No acute distress Head, Ears, Nose: Normocephalic, atraumatic. External ears, nose normal Eyes: Conjunctivae/corneas clear. No icterus. No ptosis. Neck: Supple, no meningeal signs Oral: dentition fair, no thrush Cardiovascular: S1, S2 normal. Respiratory: Good air entry, clear to auscultation bilaterally GI: Soft, non-tender; bowel sounds normal. No peritoneal signs. Musculoskeletal: No pedal edema, no cyanosis. Skin: No rash or abscess Hem/Lymphatic: No palpable cervical or supraclavicular nodes. No lymphangitis Psych: Mood ok. Affect normal Neurological: Awake, alert, oriented. No gross abnormality - Constitutional Vitals: Vital Signs Temp Pulse Resp BP Pulse Ox 98.8 F 58 L 17 106/50 100 12/17/21 17:08 12/17/21 18:15 12/17/21 18:15 12/17/21 18:15 12/17/21 18:15 Temperature -Last 24 Hours Temperature 98.8 F Temperature 97.7 F Temperature 97.6 F Temperature 98 F Temperature 97.9 F Temperature 98.2 F - Labs CBC & Chem 7: 12/17/21 04:00 12/17/21 04:30 Labs: Abnormal lab results 12/16/21 12/17/21 12/17/21 Range/Units 23:24 04:00 04:30 WBC 12.3 H (4.5-11.0) K/mm3 RBC 3.32 L (3.65-5.03) M/mm3 Hgb 8.8 L (10.1-14.3) gm/dl Hct 26.5 L (30.3-42.9) % MCH 26 L (28-32) pg RDW 18.0 H (13.2-15.2) % Plt Count 27 L (140-440) K/mm3 Lymph % (Auto) 5.9 L (13.4-35.0) % Lymph # (Auto) 0.7 L (1.2-5.4) K/mm3 Seg Neutrophils % 88.3 H (40.0-70.0) % Seg Neutrophils # 10.9 H (1.8-7.7) K/mm3 ABG pH (7.350-7.450) pH Units ABG pO2 (80.0-90.0) mm Hg ABG O2 Saturation (95.0-99.0) % ABG Base Excess (-2.0-3.0) mmol/L ABG Hemoglobin (12.0-16.0) gm/dl Oxyhemoglobin (95.0-99.0) % BUN 43 H (7-17) mg/dL Creatinine 5.0 H (0.6-1.2) mg/dL Glucose 129 H (65-100) mg/dL POC Glucose 110 H (70-105) mg/dL Calcium 7.8 L (8.4-10.2) mg/dL Phosphorus (2.5-4.5) mg/dL Magnesium (1.7-2.3) mg/dL 12/17/21 12/17/21 12/17/21 Range/Units 04:30 11:18 14:35 WBC (4.5-11.0) K/mm3 RBC (3.65-5.03) M/mm3 Hgb (10.1-14.3) gm/dl Hct (30.3-42.9) % MCH (28-32) pg RDW (13.2-15.2) % Plt Count (140-440) K/mm3 Lymph % (Auto) (13.4-35.0) % Lymph # (Auto) (1.2-5.4) K/mm3 Seg Neutrophils % (40.0-70.0) % Seg Neutrophils # (1.8-7.7) K/mm3 ABG pH 7.316 L (7.350-7.450) pH Units ABG pO2 74.0 L (80.0-90.0) mm Hg ABG O2 Saturation 93.7 L (95.0-99.0) % ABG Base Excess -3.3 L (-2.0-3.0) mmol/L ABG Hemoglobin 8.8 L (12.0-16.0) gm/dl Oxyhemoglobin 91.7 L (95.0-99.0) % BUN (7-17) mg/dL Creatinine (0.6-1.2) mg/dL Glucose (65-100) mg/dL POC Glucose 149 H (70-105) mg/dL Calcium (8.4-10.2) mg/dL Phosphorus 1.90 L (2.5-4.5) mg/dL Magnesium 1.60 L (1.7-2.3) mg/dL 12/17/21 Range/Units 16:58 WBC (4.5-11.0) K/mm3 RBC (3.65-5.03) M/mm3 Hgb (10.1-14.3) gm/dl Hct (30.3-42.9) % MCH (28-32) pg RDW (13.2-15.2) % Plt Count (140-440) K/mm3 Lymph % (Auto) (13.4-35.0) % Lymph # (Auto) (1.2-5.4) K/mm3 Seg Neutrophils % (40.0-70.0) % Seg Neutrophils # (1.8-7.7) K/mm3 ABG pH (7.350-7.450) pH Units ABG pO2 (80.0-90.0) mm Hg ABG O2 Saturation (95.0-99.0) % ABG Base Excess (-2.0-3.0) mmol/L ABG Hemoglobin (12.0-16.0) gm/dl Oxyhemoglobin (95.0-99.0) % BUN (7-17) mg/dL Creatinine (0.6-1.2) mg/dL Glucose (65-100) mg/dL POC Glucose 219 H (70-105) mg/dL Calcium (8.4-10.2) mg/dL Phosphorus (2.5-4.5) mg/dL Magnesium (1.7-2.3) mg/dL
[2021-12-17 18:58] LABS: INR 1.27 (0.87-1.13)
[2021-12-18] MEDS: SODIUM CHLORIDE 0.9% 1000 ML 1,000 ML IV SCH (00:45)
--- NOTE | 2021-12-18 04:01 | XRay Report ---
CHEST 1 VIEW INDICATION / CLINICAL INFORMATION: follow up respiratory failure. COMPARISON: Chest x-ray 12/17/2021 FINDINGS: SUPPORT DEVICES: Stable, satisfactory device positioning. HEART / MEDIASTINUM: Stable interval appearance of the cardiomediastinal silhouette. LUNGS / PLEURA: Bilateral lung opacities demonstrate no significant interval change. There may be min imal improvement in aeration of the left lung base. BONES: No significant osseous abnormality. ADDITIONAL FINDINGS: No significant additional findings. IMPRESSION: 1. Diffuse bilateral lung opacities remain present suggesting pulmonary edema or infection. Minimal i mprovement in aeration of left lung base is suggested. Signer Name: Branden Ba II, MD Signed: 12/18/2021 3:57 AM Workstation Name: [id number]
[2021-12-18 05:28] LABS: Hematocrit 25.7 % (30.3-42.9); Hemoglobin 8.4 gm/dl (10.1-14.3); Mean Corpuscular HGB Conc 33 % (30-34); Mean Corpuscular Volume 79 fl (79-97); Red Blood Count 3.25 M/mm3 (3.65-5.03); Red Cell Distribution Width 18.2 % (13.2-15.2)
[2021-12-18 05:31] LABS: Platelet Count 28 K/mm3 (140-440)
[2021-12-18] MEDS: methylPREDNISolone Sod Succinate 125 MG/2 ML INJ IV SCH ×3 (05:47→22:37)
[2021-12-18] MEDS: INSULIN LISPRO 100 UNIT/ML SUB-Q SCH ×4 (06:14→18:07)
[2021-12-18 06:20] LABS: Basophils % (Manual) 0 % (0.0-1.8); Eosinophils % (Manual) 0 % (0.0-4.3); Hypochromasia 1+; Monocytes % (Manual) 0 % (0.0-7.3); Total Cells Counted 100
[2021-12-18 06:21] LABS: Anisocytosis 1+; Ovalocytes Few
[2021-12-18 06:22] LABS: Target Cells Few
[2021-12-18 06:23] LABS: Platelet Estimate Consistent w Auto; Schistocytes Few
[2021-12-18] MEDS: fentaNYL DRIP Premix 2,000 MCG/100 ML BAG IV SCH (08:41)
[2021-12-18] MEDS: BUDESONIDE 0.5 MG/2 ML NEBU IH SCH ×2 (08:43→20:36)
[2021-12-18] MEDS: IPRATROPIUM/ALBUTEROL SULFATE 3 ML AMPUL.NEB IH SCH ×3 (08:44→20:36)
--- NOTE | 2021-12-18 08:58 | Progress Note ---
Assessment and Plan Impression: * ESRD * s/p fall * hypotension * elevated troponin * type 2 DM * history of HTN * GPC bacteremia Plan: * maintain MAP>70, continue pressors prn * tolerated hd 5/3 via AVF * plan for HD TTHSAT if hemodynamically stable, due today * will attempt UF removal as able given soft BPs * renal diet, fluid restriction * strict i/os and daily lytes * uf as tolerated with hd * note bacteremia- appreciate removal of PermCath. AVF working, no indication for acute intervention, appreciate IR/vascular * antibiotics per ID Subjective Date of service: 12/18/21 Principal diagnosis: Septic shock ; Bacteremia; ESRD on dialysis; AMS; NSTEMI; HTN; DM II Interval history: Remains intubated, FiO2 30%. On Levophed. Objective - Exam Narrative Exam: Constitutional: ill appearing, intubated Head: NC/AT Neck: supple Lungs: coarse lung sounds CV: tachycardic Abdomen: soft, non-tender, bowel sounds present Back: nontender Extremities: no edema, pulses WNL Skin: intact Neuro: sedated - Vital Signs Vital signs: Vital Signs - 12hr 12/17/21 12/17/21 12/17/21 21:00 21:15 21:30 Temperature Pulse Rate 62 62 61 Pulse Rate [ Anterior Bilateral Throughout] Pulse Rate [ From Monitor] Respiratory 17 17 15 Rate Respiratory Rate [Anterior Bilateral Throughout] Blood Pressure 101/51 102/52 100/54 O2 Sat by Pulse 100 100 100 Oximetry 12/17/21 12/17/21 12/17/21 21:45 22:00 22:15 Temperature Pulse Rate 62 62 60 Pulse Rate [ Anterior Bilateral Throughout] Pulse Rate [ From Monitor] Respiratory 12 13 20 Rate Respiratory Rate [Anterior Bilateral Throughout] Blood Pressure 101/55 102/53 105/54 O2 Sat by Pulse 100 100 100 Oximetry 12/17/21 12/17/21 12/17/21 22:30 22:45 23:00 Temperature Pulse Rate 60 65 61 Pulse Rate [ Anterior Bilateral Throughout] Pulse Rate [ From Monitor] Respiratory 18 16 13 Rate Respiratory Rate [Anterior Bilateral Throughout] Blood Pressure 103/49 109/56 109/61 O2 Sat by Pulse 100 100 100 Oximetry 12/17/21 12/17/21 12/17/21 23:15 23:30 23:31 Temperature Pulse Rate 62 61 60 Pulse Rate [ Anterior Bilateral Throughout] Pulse Rate [ From Monitor] Respiratory 14 19 16 Rate Respiratory Rate [Anterior Bilateral Throughout] Blood Pressure 110/55 108/54 108/54 O2 Sat by Pulse 100 100 100 Oximetry 12/17/21 12/18/21 12/18/21 23:45 00:00 00:04 Temperature 98.8 F Pulse Rate 62 62 62 Pulse Rate [ Anterior Bilateral Throughout] Pulse Rate [ 63 From Monitor] Respiratory 17 16 Rate Respiratory Rate [Anterior Bilateral Throughout] Blood Pressure 101/58 103/56 103/56 O2 Sat by Pulse 100 100 100 Oximetry 12/18/21 12/18/21 12/18/21 00:15 00:30 00:45 Temperature Pulse Rate 63 62 62 Pulse Rate [ Anterior Bilateral Throughout] Pulse Rate [ From Monitor] Respiratory 13 14 14 Rate Respiratory Rate [Anterior Bilateral Throughout] Blood Pressure 98/51 101/54 106/59 O2 Sat by Pulse 100 100 100 Oximetry 12/18/21 12/18/21 12/18/21 01:00 01:15 01:30 Temperature Pulse Rate 62 62 62 Pulse Rate [ Anterior Bilateral Throughout] Pulse Rate [ From Monitor] Respiratory 16 20 14 Rate Respiratory Rate [Anterior Bilateral Throughout] Blood Pressure 105/58 106/56 103/54 O2 Sat by Pulse 100 100 100 Oximetry 12/18/21 12/18/21 12/18/21 01:45 02:00 02:15 Temperature Pulse Rate 61 64 62 Pulse Rate [ Anterior Bilateral Throughout] Pulse Rate [ From Monitor] Respiratory 20 15 14 Rate Respiratory Rate [Anterior Bilateral Throughout] Blood Pressure 101/54 101/54 102/53 O2 Sat by Pulse 100 100 100 Oximetry 12/18/21 12/18/21 12/18/21 02:30 02:46 03:00 Temperature Pulse Rate 62 59 L 64 Pulse Rate [ Anterior Bilateral Throughout] Pulse Rate [ From Monitor] Respiratory 20 22 21 Rate Respiratory Rate [Anterior Bilateral Throughout] Blood Pressure 101/48 101/52 O2 Sat by Pulse 100 100 100 Oximetry 12/18/21 12/18/21 12/18/21 03:15 03:30 03:45 Temperature Pulse Rate 63 63 62 Pulse Rate [ Anterior Bilateral Throughout] Pulse Rate [ From Monitor] Respiratory 21 21 20 Rate Respiratory Rate [Anterior Bilateral Throughout] Blood Pressure 96/50 104/53 99/47 O2 Sat by Pulse 100 100 100 Oximetry 12/18/21 12/18/21 12/18/21 04:00 04:10 04:15 Temperature 98.3 F Pulse Rate 61 62 60 Pulse Rate [ Anterior Bilateral Throughout] Pulse Rate [ 61 From Monitor] Respiratory 20 20 Rate Respiratory Rate [Anterior Bilateral Throughout] Blood Pressure 101/53 101/53 101/53 O2 Sat by Pulse 100 100 100 Oximetry 12/18/21 12/18/21 12/18/21 04:30 04:45 05:00 Temperature Pulse Rate 61 61 64 Pulse Rate [ Anterior Bilateral Throughout] Pulse Rate [ From Monitor] Respiratory 20 20 21 Rate Respiratory Rate [Anterior Bilateral Throughout] Blood Pressure 101/56 104/53 100/54 O2 Sat by Pulse 100 100 100 Oximetry 12/18/21 12/18/21 12/18/21 05:15 05:30 05:45 Temperature Pulse Rate 68 61 61 Pulse Rate [ Anterior Bilateral Throughout] Pulse Rate [ From Monitor] Respiratory 19 21 17 Rate Respiratory Rate [Anterior Bilateral Throughout] Blood Pressure 99/57 98/47 95/53 O2 Sat by Pulse 100 100 100 Oximetry 12/18/21 12/18/21 12/18/21 06:00 06:15 06:30 Temperature Pulse Rate 62 62 61 Pulse Rate [ Anterior Bilateral Throughout] Pulse Rate [ From Monitor] Respiratory 19 21 16 Rate Respiratory Rate [Anterior Bilateral Throughout] Blood Pressure 99/43 97/51 95/55 O2 Sat by Pulse 100 100 100 Oximetry 12/18/21 12/18/21 12/18/21 06:45 07:00 07:15 Temperature Pulse Rate 61 62 63 Pulse Rate [ Anterior Bilateral Throughout] Pulse Rate [ From Monitor] Respiratory 16 16 20 Rate Respiratory Rate [Anterior Bilateral Throughout] Blood Pressure 93/50 89/48 86/46 O2 Sat by Pulse 100 100 99 Oximetry 12/18/21 12/18/21 12/18/21 07:17 07:30 07:45 Temperature 98.8 F Pulse Rate 61 62 Pulse Rate [ Anterior Bilateral Throughout] Pulse Rate [ From Monitor] Respiratory 21 20 Rate Respiratory Rate [Anterior Bilateral Throughout] Blood Pressure 100/55 94/49 O2 Sat by Pulse 99 100 Oximetry 12/18/21 12/18/21 12/18/21 08:00 08:15 08:44 Temperature Pulse Rate 62 65 64 Pulse Rate [ Anterior Bilateral Throughout] Pulse Rate [ 62 From Monitor] Respiratory 21 20 Rate Respiratory Rate [Anterior Bilateral Throughout] Blood Pressure 95/52 94/58 100/72 O2 Sat by Pulse 100 100 99 Oximetry 12/18/21 08:47 Temperature Pulse Rate Pulse Rate [ 65 Anterior Bilateral Throughout] Pulse Rate [ From Monitor] Respiratory Rate Respiratory 16 Rate [Anterior Bilateral Throughout] Blood Pressure O2 Sat by Pulse Oximetry - Lab 12/18/21 05:00 12/18/21 05:00 Most recent lab results ABG pH 7.316 pH Units (7.350-7.450) L 12/17/21 14:35 ABG pCO2 45.6 mm Hg 12/17/21 14:35 ABG pO2 74.0 mm Hg (80.0-90.0) L 12/17/21 14:35 ABG HCO3 22.8 mmol/L (20.0-26.0) 12/17/21 14:35 ABG O2 Saturation 93.7 % (95.0-99.0) L 12/17/21 14:35 Calcium 8.0 mg/dL (8.4-10.2) L 12/18/21 05:00 Phosphorus 1.90 mg/dL (2.5-4.5) L 12/17/21 04:30 Magnesium 1.60 mg/dL (1.7-2.3) L 12/17/21 04:30 Medications & Allergies - Medications Allergies/Adverse Reactions: Allergies No Known Allergies Allergy (Verified 12/11/21 22:19) Home Medications: Home Medications Medication Instructions Recorded Confirmed Last Taken Type Albuterol Sulfate [Proair 2 puff IH Q6HR PRN 11/23/21 12/14/21 Unknown History Digihaler] Calcium Acetate 2 tab PO TID 11/23/21 12/14/21 Unknown History Fluticasone/Umeclidin/Vilanter 1 each IH DAILY 11/23/21 12/14/21 Unknown History [Trelegy Ellipta 100-62.5-25] Furosemide [Lasix TAB] 40 mg PO QDAY 11/23/21 12/14/21 Unknown History Insulin Aspart (Nf) [NovoLOG 55 unit SQ TID 11/23/21 12/14/21 Unknown History Flexpen] Insulin Glargine [Lantus VIAL] 25 units SQ QHS 11/23/21 12/14/21 Unknown History Omeprazole 20 mg PO DAILY 11/23/21 12/14/21 Unknown History Spironolactone [Aldactone] 100 mg PO QDAY 11/23/21 12/14/21 Unknown History lisinopriL [Lisinopril] 20 mg PO BID 11/23/21 12/14/21 12/06/21 History 500 MG Docusate Sodium [Colace CAP] 100 mg PO BID PRN #60 capsule 11/24/21 12/14/21 Unknown Rx Aspirin EC [Halfprin EC] 81 mg PO DAILY 90 Days #90 tablet 11/26/21 12/14/21 Unknown Rx Aspirin [Adult Aspirin] 81 mg PO DAILY 90 Days #90 tab 11/26/21 12/14/21 Unknown Rx ISOSORBIDE MONOnitrate [Imdur ER] 60 mg PO QDAY 90 Days #90 tab 11/26/21 12/14/21 Unknown Rx Sevelamer Carbonate [Renvela] 800 mg PO TIDWM 90 Days #270 tab 11/26/21 12/14/21 Unknown Rx amLODIPine 10 mg PO DAILY 90 Days #90 tab 11/26/21 12/14/21 Unknown Rx carvediloL [Coreg] 25 mg PO BID 90 Days #180 tab 11/26/21 12/14/21 Unknown Rx Atorvastatin Calcium [Lipitor] 80 mg PO QHS 90 Days #90 tab 11/27/21 12/14/21 Unknown Rx levETIRAcetam [Keppra TAB] 500 mg PO 3XW 12/14/21 12/14/21 12/06/21 History 500 MG Active Medications: Generic Name Dose Route Start Last Admin Trade Name Freq PRN Reason Stop Dose Admin Acetaminophen 650 mg 12/13/21 23:00 12/13/21 23:18 Acetaminophen 650 Mg Rect Supp [place] 650 mg Q4H PRN Administration Pain, Mild (1-3) Albuterol 2.5 mg 12/11/21 22:14 Albuterol 2.5 Mg/3 Ml Nebu IH Q6HR PRN Wheezing Albuterol/Ipratropium 1 ampul 12/14/21 08:00 12/18/21 08:44 Ipratropium/Albuterol Sulfate 3 Ml Ampul.Neb IH 1 ampul TIDRT KRISTA Administration Lipase/Protease/Amylase 1 each 12/16/21 11:15 Lipase 10,500/Protease 25,000/Amylase 43,750 (Units) Dr Cap FEEDTUBE PRN PRN For Clogged Feeding Tube Aspirin 81 mg 12/15/21 10:00 12/17/21 09:48 Aspirin 81 Mg Tab Chew FEEDTUBE 81 mg QDAY KRISTA Administration Atorvastatin Calcium 80 mg 12/15/21 22:00 12/17/21 21:47 Atorvastatin 40 Mg Tab FEEDTUBE 80 mg QHS KRISTA Administration Budesonide 0.5 mg 12/13/21 08:00 12/18/21 08:43 Budesonide 0.5 Mg/2 Ml Nebu IH 0.5 mg Q12HRT KRISTA Administration Dextrose 50 ml 12/11/21 22:23 12/16/21 06:24 Dextrose 50% In Water (25gm) 50 Ml Syringe IV 15 ml Q30MIN PRN Administration Hypoglycemia Protocol Famotidine 10 mg 12/15/21 22:00 12/17/21 21:46 Famotidine 10 Mg Tab FEEDTUBE 10 mg BID KRISTA Administration Fentanyl 50 mcg 12/15/21 17:19 12/15/21 17:58 Fentanyl 100 Mcg/2 Ml Inj IV 50 mcg Q10MIN PRN Administration ANALGESIA Hydrophilic Ointment 1 applic 12/16/21 14:30 Lip Therapy Vaseline TP Q2HR PRN Dry Lips Sodium Chloride 100 mls @ 999 mls/hr 12/12/21 12:00 Nacl 0.9% IV ABEL PRN Hypotension NORepinephrine/NS 8 MG-250 ML 8 mg in 250 mls @ 3.75 mls/hr 12/14/21 23:00 12/18/21 08:47 Norepinephrine/Ns 8 Mg-250 Ml (Double Conc) IV 2 mcg/min TITRATE KRISTA 3.75 mls/hr Titration Protocol 2 MCG/MIN Fentanyl Citrate 2,000 mcg in 100 mls @ 2.945 mls/hr 12/15/21 18:00 12/18/21 08:41 Fentanyl Drip Premix IV 2 mcg/kg/hr TITR KRISTA 5.89 mls/hr Administration Protocol 1 MCG/KG/HR Vasopressin 20 unit/ Sodium 101 mls @ 9.09 mls/hr 12/16/21 10:00 12/17/21 18:27 Chloride IV 0 units/min TITR KRISTA 0 mls/hr Titration Protocol 0.03 UNITS/MIN Ceftriaxone Sodium 2 gm in 100 mls @ 200 mls/hr 12/16/21 15:00 12/17/21 14:15 Rocephin/Ns 2 Gm/100 Ml IV 12/29/21 15:29 200 mls/hr Q24H KRISTA Administration Protocol Sodium Chloride 1,000 mls @ 100 mls/hr 12/17/21 14:15 12/18/21 00:45 Nacl 0.9% 1000 Ml IV 12/19/21 00:14 100 mls/hr DIRECT KRISTA Administration Insulin Human Lispro 0 unit 12/15/21 12:00 12/18/21 06:14 Insulin Lispro 100 Unit/Ml SUB-Q 1 unit Q6HR KRISTA Administration Protocol Levetiracetam 500 mg 12/16/21 18:00 12/16/21 20:45 Levetiracetam 500 Mg/5 Ml Oral Liqd FEEDTUBE 500 mg TuThSa KRISTA Administration Methylprednisolone Sodium Succinate 60 mg 12/17/21 14:00 12/18/21 05:47 Methylprednisolone Sod Succinate 125 Mg/2 Ml Inj IV 12/20/21 13:59 60 mg Q8HR KRISTA Administration Midodrine 10 mg 12/15/21 12:00 12/17/21 15:46 Midodrine 10 Mg Tab FEEDTUBE 10 mg TID@0800,1200,1600 KRISTA Administration Morphine Sulfate 2 mg 12/11/21 22:11 Morphine 4 Mg/1 Ml Inj IV Q5MIN PRN Chest Pain unrelieved by NTG Multi-Ingred Cream/Lotion/Oil/Oint 1 applic 12/16/21 14:10 Mineral Oil/Petrolatum, White Ophth Oint 3.5 Gm OU Q4HR PRN Dry Eye(s) Nitroglycerin 0.4 mg 12/11/21 22:11 Nitroglycerin 0.4 Mg Tab Subl SL Q5M PRN Chest Pain Senna/Docusate Sodium 1 tab 12/16/21 22:00 12/17/21 21:47 Sennosides/Docusate Sodium 8.6/50 Mg Tab FEEDTUBE 1 tab BID KRISTA Administration Simple Syrup 15 ml 12/16/21 11:15 Simple Syrup 15 Ml FEEDTUBE PRN PRN Hypoglycemia Simple Syrup 30 ml 12/16/21 11:15 Simple Syrup 15 Ml FEEDTUBE PRN PRN Hypoglycemia Sodium Bicarbonate 325 mg 12/16/21 11:15 Sodium Bicarbonate 325 Mg Tab FEEDTUBE PRN PRN For Clogged Feeding Tube Sodium Chloride 10 ml 12/11/21 22:11 12/16/21 08:59 Sodium Chloride 0.9% 10 Ml Flush Syringe IV 10 ml PRN PRN Administration LINE FLUSH
[2021-12-18] MEDS: MIDODRINE 10 MG TAB FEEDTUBE SCH ×3 (09:21→15:46)
[2021-12-18] MEDS: ASPIRIN 81 MG TAB CHEW FEEDTUBE SCH (09:21)
[2021-12-18] MEDS: SENNOSIDES/DOCUSATE SODIUM 8.6/50 MG TAB FEEDTUBE SCH ×2 (09:21→22:39)
[2021-12-18] MEDS: FAMOTIDINE 10 MG TAB FEEDTUBE SCH ×2 (09:21→22:39)
--- NOTE | 2021-12-18 10:13 | Hem/Onc Progress Note ---
Subjective Date of service: 12/18/21 Interval history: Heme progress note Televisit via Amplify CPT 65252 Dx Thrombocytopenia This is a 66yo female who presented to [facility] ED on 12/11 s/p fall which occurred 2 days prior to arrival. Patient stated that she felt dizzy and then found herself on the ground. 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 In the emergency department patient was found to have elevated troponin, elevated BUN/creatinine at 9.2/76, CXR showed pulmonary edema and CT head/C-spine/pelvis showed no acute fracture or dislocation and x-ray L- spine/right tib-fib/fib/right femur/right hip and pelvis showed no acute fracture or dislocation. Patient decompensated 12/15, requiring intubation. Sepsis secondary to beta-hemolytic strep group B. Platelets noted decreasing. Hematology following for thrombocytopenia. Patient intubated and sedated, as per RN more alert, opens eyes to stimulation. No bleeding noted or reported. HD today. DATA REVIEWED BELOW IMP: Thrombocytopenia, ITP likely due to sepsis ---r/o HIT, pending result Microcytic anemia, due to acute illness, and renal insufficiency, iron deficiency with iron sat 13% PLAN: Continue solu medrol 1mg/kg BID Pf4 ab pending IV Ferrlicet 125mg x3 daily Transfuse 1 dose of plts whenever plt count <20 Labs to include hemoglobin electrophoresis Laboratory Last Values WBC 15.3 K/mm3 (4.5-11.0) H 12/18/21 05:00 Hgb 8.4 gm/dl (10.1-14.3) L 12/18/21 05:00 Hct 25.7 % (30.3-42.9) L 12/18/21 05:00 MCV 79 fl (79-97) 12/18/21 05:00 MCH 26 pg (28-32) L 12/18/21 05:00 Plt Count 28 K/mm3 (140-440) L 12/18/21 05:00 PT 17.4 Sec. (12.2-14.9) H 12/17/21 18:32 INR 1.27 (0.87-1.13) H 12/17/21 18:32 Fibrinogen 481 mg/dl (211-480) H 12/18/21 05:00 Creatinine 5.2 mg/dL (0.6-1.2) H 12/18/21 05:00 Iron 13 ug/dL (37-170) L 12/18/21 05:00 TIBC 109 mcg/dL (250-450) L 12/18/21 05:00 Ferritin 383.4 ng/mL (10.0-200.0) H 12/18/21 05:00 Total Bilirubin 0.60 mg/dL (0.1-1.2) 12/11/21 15:40 AST 22 units/L (5-40) 12/11/21 15:40 ALT 13 units/L (7-56) 12/11/21 15:40 Alkaline Phosphatase 237 units/L (35-129) H 12/11/21 15:40 Lactate Dehydrogenase 154 units/L (91-180) 12/18/21 05:00 Blood Type O POSITIVE 12/17/21 09:30 Antibody Screen Negative 12/17/21 09:30 Objective - Constitutional Vitals: Last Vital Signs Temp 98.8 F 12/18/21 07:17 Pulse 63 12/18/21 10:00 Resp 21 12/18/21 10:00 BP 101/59 12/18/21 10:00 Pulse Ox 94 12/18/21 10:00 - Labs Lab Results: Laboratory Results - last 24 hr 12/17/21 12/17/21 12/17/21 09:30 11:18 14:35 WBC RBC Hgb Hct MCV MCH MCHC RDW Plt Count Add Manual Diff Total Counted Seg Neutrophils % Seg Neuts % (Manual) Band Neutrophils % Lymphocytes % (Manual) Reactive Lymphs % (Man) Monocytes % (Manual) Eosinophils % (Manual) Basophils % (Manual) Metamyelocytes % Myelocytes % Promyelocytes % Blast Cells % Nucleated RBC % Seg Neutrophils # Man Band Neutrophils # Lymphocytes # (Manual) Abs React Lymphs (Man) Monocytes # (Manual) Eosinophils # (Manual) Basophils # (Manual) Metamyelocytes # Myelocytes # Promyelocytes # Blast Cells # WBC Morphology Hypersegmented Neuts Hyposegmented Neuts Hypogranular Neuts Smudge Cells Toxic Granulation Toxic Vacuolation Dohle Bodies Pelger-Huet Anomaly Charles Rods Platelet Estimate Clumped Platelets Plt Clumps, EDTA Large Platelets Giant Platelets Platelet Satelliting Plt Morphology Comment RBC Morphology Dimorphic RBCs Polychromasia Hypochromasia Poikilocytosis Anisocytosis Microcytosis Macrocytosis Spherocytes Pappenheimer Bodies Sickle Cells Target Cells Tear Drop Cells Ovalocytes Helmet Cells [place] Bodies [place] Rings Olivia Cells Bite Cells Crenated Cell Elliptocytes Acanthocytes (Spur) Rouleaux Hemoglobin C Crystals Schistocytes Malaria parasites Percent Retic Bryson Bodies Hem Pathologist Commnt PT INR Fibrinogen ABG pH 7.316 L ABG pCO2 45.6 ABG pO2 74.0 L ABG HCO3 22.8 ABG O2 Saturation 93.7 L ABG O2 Content 11.4 ABG Base Excess -3.3 L ABG Hemoglobin 8.8 L ABG Carboxyhemoglobin 1.6 ABG Methemoglobin 0.5 Oxyhemoglobin 91.7 L FiO2 30 Sodium Potassium Chloride Carbon Dioxide Anion Gap BUN Creatinine Estimated GFR BUN/Creatinine Ratio Glucose POC Glucose 149 H Calcium Iron TIBC Ferritin Lactate Dehydrogenase Blood Type O POSITIVE Antibody Screen Negative 12/17/21 12/17/21 12/17/21 16:58 18:32 23:19 WBC RBC Hgb Hct MCV MCH MCHC RDW Plt Count Add Manual Diff Total Counted Seg Neutrophils % Seg Neuts % (Manual) Band Neutrophils % Lymphocytes % (Manual) Reactive Lymphs % (Man) Monocytes % (Manual) Eosinophils % (Manual) Basophils % (Manual) Metamyelocytes % Myelocytes % Promyelocytes % Blast Cells % Nucleated RBC % Seg Neutrophils # Man Band Neutrophils # Lymphocytes # (Manual) Abs React Lymphs (Man) Monocytes # (Manual) Eosinophils # (Manual) Basophils # (Manual) Metamyelocytes # Myelocytes # Promyelocytes # Blast Cells # WBC Morphology Hypersegmented Neuts Hyposegmented Neuts Hypogranular Neuts Smudge Cells Toxic Granulation Toxic Vacuolation Dohle Bodies Pelger-Huet Anomaly Charles Rods Platelet Estimate Clumped Platelets Plt Clumps, EDTA Large Platelets Giant Platelets Platelet Satelliting Plt Morphology Comment RBC Morphology Dimorphic RBCs Polychromasia Hypochromasia Poikilocytosis Anisocytosis Microcytosis Macrocytosis Spherocytes Pappenheimer Bodies Sickle Cells Target Cells Tear Drop Cells Ovalocytes Helmet Cells [place] Bodies [place] Rings [place] Cells Bite Cells Crenated Cell Elliptocytes Acanthocytes (Spur) Rouleaux Hemoglobin C Crystals Schistocytes Malaria parasites Percent Retic Bryson Bodies Hem Pathologist Commnt PT 17.4 H INR 1.27 H Fibrinogen 486 H ABG pH ABG pCO2 ABG pO2 ABG HCO3 ABG O2 Saturation ABG O2 Content ABG Base Excess ABG Hemoglobin ABG Carboxyhemoglobin ABG Methemoglobin Oxyhemoglobin FiO2 Sodium Potassium Chloride Carbon Dioxide Anion Gap BUN Creatinine Estimated GFR BUN/Creatinine Ratio Glucose POC Glucose 219 H 313 H Calcium Iron TIBC Ferritin Lactate Dehydrogenase Blood Type Antibody Screen 12/18/21 12/18/21 12/18/21 05:00 05:00 05:00 WBC 15.3 H RBC 3.25 L Hgb 8.4 L Hct 25.7 L MCV 79 MCH 26 L MCHC 33 RDW 18.2 H Plt Count 28 L Add Manual Diff Complete Total Counted 100 Seg Neutrophils % Community Organizer Seg Neuts % (Manual) 99.0 H Band Neutrophils % 0 Lymphocytes % (Manual) 1.0 L Reactive Lymphs % (Man) 0 Monocytes % (Manual) 0 Eosinophils % (Manual) 0 Basophils % (Manual) 0 Metamyelocytes % 0 Myelocytes % 0 Promyelocytes % 0 Blast Cells % 0 Nucleated RBC % 1.0 H Seg Neutrophils # Man 15.1 H Band Neutrophils # 0.0 Lymphocytes # (Manual) 0.2 L Abs React Lymphs (Man) 0.0 Monocytes # (Manual) 0.0 Eosinophils # (Manual) 0.0 Basophils # (Manual) 0.0 Metamyelocytes # 0.0 Myelocytes # 0.0 Promyelocytes # 0.0 Blast Cells # 0.0 WBC Morphology Not Reportable Hypersegmented Neuts Not Reportable Hyposegmented Neuts Not Reportable Hypogranular Neuts Not Reportable Smudge Cells Not Reportable Toxic Granulation Not Reportable Toxic Vacuolation Not Reportable Dohle Bodies Not Reportable Pelger-Huet Anomaly Not Reportable Charles Rods Not Reportable Platelet Estimate Consistent w auto Clumped Platelets Not Reportable Plt Clumps, EDTA Not Reportable Large Platelets Not Reportable Giant Platelets Not Reportable Platelet Satelliting Not Reportable Plt Morphology Comment Not Reportable RBC Morphology Not Reportable Dimorphic RBCs Not Reportable Polychromasia Not Reportable Hypochromasia 1+ Poikilocytosis Not Reportable Anisocytosis 1+ Microcytosis Not Reportable Macrocytosis Not Reportable Spherocytes Not Reportable Pappenheimer Bodies Not Reportable Sickle Cells Not Reportable Target Cells Few Tear Drop Cells Not Reportable Ovalocytes Few Helmet Cells Not Reportable [place] Bodies Not Reportable [place] Rings Not Reportable [place] Cells Not Reportable Bite Cells Not Reportable Crenated Cell Not Reportable Elliptocytes Not Reportable Acanthocytes (Spur) Not Reportable Rouleaux Not Reportable Hemoglobin C Crystals Not Reportable Schistocytes Few Malaria parasites Not Reportable Percent Retic 0.37 L Bryson Bodies Not Reportable Hem Pathologist Commnt No PT INR Fibrinogen 481 H ABG pH ABG pCO2 ABG pO2 ABG HCO3 ABG O2 Saturation ABG O2 Content ABG Base Excess ABG Hemoglobin ABG Carboxyhemoglobin ABG Methemoglobin Oxyhemoglobin FiO2 Sodium 135 L Potassium 3.9 Chloride 100.0 Carbon Dioxide 20 L Anion Gap 19 BUN 53 H Creatinine 5.2 H Estimated GFR 10 BUN/Creatinine Ratio 10 Glucose 307 H POC Glucose Calcium 8.0 L Iron 13 L TIBC 109 L Ferritin Lactate Dehydrogenase 154 Blood Type Antibody Screen 12/18/21 05:00 WBC RBC Hgb Hct MCV MCH MCHC RDW Plt Count Add Manual Diff Total Counted Seg Neutrophils % Seg Neuts % (Manual) Band Neutrophils % Lymphocytes % (Manual) Reactive Lymphs % (Man) Monocytes % (Manual) Eosinophils % (Manual) Basophils % (Manual) Metamyelocytes % Myelocytes % Promyelocytes % Blast Cells % Nucleated RBC % Seg Neutrophils # Man Band Neutrophils # Lymphocytes # (Manual) Abs React Lymphs (Man) Monocytes # (Manual) Eosinophils # (Manual) Basophils # (Manual) Metamyelocytes # Myelocytes # Promyelocytes # Blast Cells # WBC Morphology Hypersegmented Neuts Hyposegmented Neuts Hypogranular Neuts Smudge Cells Toxic Granulation Toxic Vacuolation Dohle Bodies Pelger-Huet Anomaly Charles Rods Platelet Estimate Clumped Platelets Plt Clumps, EDTA Large Platelets Giant Platelets Platelet Satelliting Plt Morphology Comment RBC Morphology Dimorphic RBCs Polychromasia Hypochromasia Poikilocytosis Anisocytosis Microcytosis Macrocytosis Spherocytes Pappenheimer Bodies Sickle Cells Target Cells Tear Drop Cells Ovalocytes Helmet Cells [place] Bodies [place] Rings [address] Cells Bite Cells Crenated Cell Elliptocytes Acanthocytes (Spur) Rouleaux Hemoglobin C Crystals Schistocytes Malaria parasites Percent Retic Bryson Bodies Hem Pathologist Commnt PT INR Fibrinogen ABG pH ABG pCO2 ABG pO2 ABG HCO3 ABG O2 Saturation ABG O2 Content ABG Base Excess ABG Hemoglobin ABG Carboxyhemoglobin ABG Methemoglobin Oxyhemoglobin FiO2 Sodium Potassium Chloride Carbon Dioxide Anion Gap BUN Creatinine Estimated GFR BUN/Creatinine Ratio Glucose POC Glucose Calcium Iron TIBC Ferritin 383.4 H Lactate Dehydrogenase Blood Type Antibody Screen Medications & Allergies - Medications Allergies/Adverse Reactions: Allergies No Known Allergies Allergy (Verified 12/11/21 22:19) Home Medications: Home Medications Medication Instructions Recorded Confirmed Last Taken Type Albuterol Sulfate [Proair 2 puff IH Q6HR PRN 11/23/21 12/14/21 Unknown History Digihaler] Calcium Acetate 2 tab PO TID 11/23/21 12/14/21 Unknown History Fluticasone/Umeclidin/Vilanter 1 each IH DAILY 11/23/21 12/14/21 Unknown History [Trelegy Ellipta 100-62.5-25] Furosemide [Lasix TAB] 40 mg PO QDAY 11/23/21 12/14/21 Unknown History Insulin Aspart (Nf) [NovoLOG 55 unit SQ TID 11/23/21 12/14/21 Unknown History Flexpen] Insulin Glargine [Lantus VIAL] 25 units SQ QHS 11/23/21 12/14/21 Unknown History Omeprazole 20 mg PO DAILY 11/23/21 12/14/21 Unknown History Spironolactone [Aldactone] 100 mg PO QDAY 11/23/21 12/14/21 Unknown History lisinopriL [Lisinopril] 20 mg PO BID 11/23/21 12/14/21 12/06/21 History 500 MG Docusate Sodium [Colace CAP] 100 mg PO BID PRN #60 capsule 11/24/21 12/14/21 Unknown Rx Aspirin EC [Halfprin EC] 81 mg PO DAILY 90 Days #90 tablet 11/26/21 12/14/21 Unknown Rx Aspirin [Adult Aspirin] 81 mg PO DAILY 90 Days #90 tab 11/26/21 12/14/21 Unknown Rx ISOSORBIDE MONOnitrate [Imdur ER] 60 mg PO QDAY 90 Days #90 tab 11/26/21 12/14/21 Unknown Rx Sevelamer Carbonate [Renvela] 800 mg PO TIDWM 90 Days #270 tab 11/26/21 12/14/21 Unknown Rx amLODIPine 10 mg PO DAILY 90 Days #90 tab 11/26/21 12/14/21 Unknown Rx carvediloL [Coreg] 25 mg PO BID 90 Days #180 tab 11/26/21 12/14/21 Unknown Rx Atorvastatin Calcium [Lipitor] 80 mg PO QHS 90 Days #90 tab 11/27/21 12/14/21 Unknown Rx levETIRAcetam [Keppra TAB] 500 mg PO 3XW 12/14/21 12/14/21 12/06/21 History 500 MG Active Medications: Generic Name Dose Route Start Last Admin Trade Name Freq PRN Reason Stop Dose Admin Acetaminophen 650 mg 12/13/21 23:00 12/13/21 23:18 Acetaminophen 650 Mg Rect Supp SC 650 mg Q4H PRN Administration Pain, Mild (1-3) Albuterol 2.5 mg 12/11/21 22:14 Albuterol 2.5 Mg/3 Ml Nebu IH Q6HR PRN Wheezing Albuterol/Ipratropium 1 ampul 12/14/21 08:00 12/18/21 08:44 Ipratropium/Albuterol Sulfate 3 Ml Ampul.Neb IH 1 ampul TIDRT KRISTA Administration Lipase/Protease/Amylase 1 each 12/16/21 11:15 Lipase 10,500/Protease 25,000/Amylase 43,750 (Units) Dr Blanco FEEDTUBE PRN PRN For Clogged Feeding Tube Aspirin 81 mg 12/15/21 10:00 12/18/21 09:21 Aspirin 81 Mg Tab Chew FEEDTUBE 81 mg QDAY KRISTA Administration Atorvastatin Calcium 80 mg 12/15/21 22:00 12/17/21 21:47 Atorvastatin 40 Mg Tab FEEDTUBE 80 mg QHS KRISTA Administration Budesonide 0.5 mg 12/13/21 08:00 12/18/21 08:43 Budesonide 0.5 Mg/2 Ml Nebu IH 0.5 mg Q12HRT KRISTA Administration Dextrose 50 ml 12/11/21 22:23 12/16/21 06:24 Dextrose 50% In Water (25gm) 50 Ml Syringe IV 15 ml Q30MIN PRN Administration Hypoglycemia Protocol Famotidine 10 mg 12/15/21 22:00 12/18/21 09:21 Famotidine 10 Mg Tab FEEDTUBE 10 mg BID KRISTA Administration Fentanyl 50 mcg 12/15/21 17:19 12/15/21 17:58 Fentanyl 100 Mcg/2 Ml Inj IV 50 mcg Q10MIN PRN Administration ANALGESIA Hydrophilic Ointment 1 applic 12/16/21 14:30 Lip Therapy Vaseline TP Q2HR PRN Dry Lips Sodium Chloride 100 mls @ 999 mls/hr 12/12/21 12:00 Nacl 0.9% IV ABEL PRN Hypotension NORepinephrine/NS 8 MG-250 ML 8 mg in 250 mls @ 3.75 mls/hr 12/14/21 23:00 12/18/21 09:20 Norepinephrine/Ns 8 Mg-250 Ml (Double Conc) IV 4 mcg/min TITRATE KRISTA 7.5 mls/hr Titration Protocol 2 MCG/MIN Fentanyl Citrate 2,000 mcg in 100 mls @ 2.945 mls/hr 12/15/21 18:00 12/18/21 09:19 Fentanyl Drip Premix IV 1 mcg/kg/hr TITR KRISTA 2.945 mls/hr Titration Protocol 1 MCG/KG/HR Vasopressin 20 unit/ Sodium 101 mls @ 9.09 mls/hr 12/16/21 10:00 12/17/21 18:27 Chloride IV 0 units/min TITR KRISTA 0 mls/hr Titration Protocol 0.03 UNITS/MIN Ceftriaxone Sodium 2 gm in 100 mls @ 200 mls/hr 12/16/21 15:00 12/17/21 14:15 Rocephin/Ns 2 Gm/100 Ml IV 12/29/21 15:29 200 mls/hr Q24H KRISTA Administration Protocol Sodium Chloride 1,000 mls @ 100 mls/hr 12/17/21 14:15 12/18/21 00:45 Nacl 0.9% 1000 Ml IV 12/19/21 00:14 100 mls/hr DIRECT KRISTA Administration Ferric Sodium Gluconate 110 mls @ 100 mls/hr 12/18/21 11:00 Complex 125 mg/ Sodium IV 12/21/21 23:59 Chloride DAILY KRISTA Insulin Human Lispro 0 unit 12/15/21 12:00 12/18/21 06:14 Insulin Lispro 100 Unit/Ml SUB-Q 1 unit Q6HR KRISTA Administration Protocol Levetiracetam 500 mg 12/16/21 18:00 12/16/21 20:45 Levetiracetam 500 Mg/5 Ml Oral Liqd FEEDTUBE 500 mg TuThSa KRISTA Administration Methylprednisolone Sodium Succinate 60 mg 12/17/21 14:00 12/18/21 05:47 Methylprednisolone Sod Succinate 125 Mg/2 Ml Inj IV 12/20/21 13:59 60 mg Q8HR KRISTA Administration Midodrine 10 mg 12/15/21 12:00 12/18/21 09:21 Midodrine 10 Mg Tab FEEDTUBE 10 mg TID@0800,1200,1600 KRISTA Administration Morphine Sulfate 2 mg 12/11/21 22:11 Morphine 4 Mg/1 Ml Inj IV Q5MIN PRN Chest Pain unrelieved by NTG Multi-Ingred Cream/Lotion/Oil/Oint 1 applic 12/16/21 14:10 Mineral Oil/Petrolatum, White Ophth Oint 3.5 Gm OU Q4HR PRN Dry Eye(s) Nitroglycerin 0.4 mg 12/11/21 22:11 Nitroglycerin 0.4 Mg Tab Subl SL Q5M PRN Chest Pain Senna/Docusate Sodium 1 tab 12/16/21 22:00 12/18/21 09:21 Sennosides/Docusate Sodium 8.6/50 Mg Tab FEEDTUBE 1 tab BID KRISTA Administration Simple Syrup 15 ml 12/16/21 11:15 Simple Syrup 15 Ml FEEDTUBE PRN PRN Hypoglycemia Simple Syrup 30 ml 12/16/21 11:15 Simple Syrup 15 Ml FEEDTUBE PRN PRN Hypoglycemia Sodium Bicarbonate 325 mg 12/16/21 11:15 Sodium Bicarbonate 325 Mg Tab FEEDTUBE PRN PRN For Clogged Feeding Tube Sodium Chloride 10 ml 12/11/21 22:11 12/18/21 09:21 Sodium Chloride 0.9% 10 Ml Flush Syringe IV 10 ml PRN PRN Administration LINE FLUSH
[2021-12-18 10:48] LABS: ABG Base Excess -3.6 mmol/L (-2.0-3.0); ABG HCO3 20.6 mmol/L (20.0-26.0); ABG Methemoglobin 0.6 % (0.0-1.5); ABG Oxygen Saturation 81.7 % (95.0-99.0); ABG PCO2 33.4 mm Hg; ABG PH 7.407 pH Units (7.350-7.450); ABG PO2 50.2 mm Hg (80.0-90.0)
[2021-12-18] MEDS: SODIUM FERRIC GLUCON/SUCRO 125 MG in SODIUM CHLORIDE 0.9% 100 ML IV SCH (11:26)
--- NOTE | 2021-12-18 11:39 | Progress Note ---
Assessment and Plan - Patient Problems (1) Syncope Current Visit: Yes Status: Acute Plan to address problem: Patient admitted with episode of transient dizziness causing a fall which resulted in right hip pain. She has end-stage renal disease on hemodialysis, had missed at least 1 dialysis session prior to admission. Recently relocated here from [place]. Echocardiogram done in this hospital on a prior admission 2 weeks ago showed a moderate severity cardiomyopathy, ejection fraction 35 to 40%. The etiology of her cardiomyopathy is not known at this time, we do not have her records from [place] for review. Hospital course is now complicated by development of sepsis, with four positive blood cultures. Suspected source is the indwelling Vas-Cath. Transthoracic echo shows no evidence of valvular vegetation. Subjective Date of service: 12/18/21 Principal diagnosis: Septic shock ; Bacteremia; ESRD on dialysis; AMS; NSTEMI; HTN; DM II Interval history: Patient is sedated, on the vent. On chairman ceo has a sinus rhythm at 63. Objective Vital Signs Temp Pulse Pulse Pulse Resp Resp BP 12/18/21 11:15 98.1 F 12/18/21 11:00 62 16 92/50 12/18/21 10:45 62 18 92/50 12/18/21 10:30 63 21 93/49 12/18/21 10:15 62 20 102/58 12/18/21 10:00 63 21 101/59 12/18/21 09:45 61 20 96/50 12/18/21 09:30 60 19 103/52 12/18/21 09:15 62 20 88/45 12/18/21 09:00 62 21 95/35 12/18/21 08:47 65 16 12/18/21 08:45 63 19 100/72 12/18/21 08:44 64 100/72 12/18/21 08:30 65 21 99/45 12/18/21 08:15 65 20 94/58 12/18/21 08:00 62 62 21 95/52 12/18/21 07:45 62 20 94/49 12/18/21 07:30 61 21 100/55 12/18/21 07:17 98.8 F 12/18/21 07:15 63 20 86/46 12/18/21 07:00 62 16 89/48 12/18/21 06:45 61 16 93/50 05/05/22 06:30 61 16 95/55 05/05/22 06:15 62 21 97/51 05/05/22 06:00 62 19 99/43 05/05/22 05:45 61 17 95/53 05/05/22 05:30 61 21 98/47 05/05/22 05:15 68 19 99/57 05/05/22 05:00 64 21 100/54 05/05/22 04:45 61 20 104/53 05/05/22 04:30 61 20 101/56 05/05/22 04:15 60 20 101/53 05/05/22 04:10 62 101/53 05/05/22 04:00 98.3 F 61 61 20 101/53 05/05/22 03:45 62 20 99/47 05/05/22 03:30 63 21 104/53 05/05/22 03:15 63 21 96/50 05/05/22 03:00 64 21 101/52 05/05/22 02:46 59 L 22 05/05/22 02:30 62 20 101/48 05/05/22 02:15 62 14 102/53 05/05/22 02:00 64 15 101/54 05/05/22 01:45 61 20 101/54 05/05/22 01:30 62 14 103/54 05/05/22 01:15 62 20 106/56 05/05/22 01:00 62 16 105/58 05/05/22 00:45 62 14 106/59 05/05/22 00:30 62 14 101/54 05/05/22 00:15 63 13 98/51 05/05/22 00:04 62 103/56 05/05/22 00:00 98.8 F 62 63 16 103/56 05/04/22 23:45 62 17 101/58 05/04/22 23:31 60 16 108/54 05/04/22 23:30 61 19 108/54 05/04/22 23:15 62 14 110/55 05/04/22 23:00 61 13 109/61 05/04/22 22:45 65 16 109/56 05/04/22 22:30 60 18 103/49 05/04/22 22:15 60 20 105/54 05/04/22 22:00 62 13 102/53 05/04/22 21:45 62 12 101/55 12/17/21 21:30 61 15 100/54 12/17/21 21:15 62 17 102/52 12/17/21 21:00 62 17 101/51 12/17/21 20:45 63 13 102/55 12/17/21 20:38 64 20 12/17/21 20:31 62 101/52 12/17/21 20:30 61 16 101/52 12/17/21 20:15 63 15 88/46 12/17/21 20:00 98.3 F 63 62 20 92/48 12/17/21 19:45 63 18 92/34 12/17/21 19:31 63 13 90/42 12/17/21 19:15 62 15 90/42 12/17/21 19:00 63 13 87/45 12/17/21 18:45 63 16 91/34 12/17/21 18:31 65 20 91/34 12/17/21 18:15 58 L 17 106/50 12/17/21 18:00 58 L 17 97/50 12/17/21 17:45 59 L 13 95/46 12/17/21 17:31 57 L 13 101/29 12/17/21 17:15 61 11 L 112/55 12/17/21 17:08 98.8 F 12/17/21 17:01 61 14 108/46 12/17/21 16:45 61 10 L 108/46 12/17/21 16:30 61 12 106/50 12/17/21 16:15 63 13 104/42 12/17/21 16:10 60 99/47 12/17/21 16:00 61 60 12 99/47 12/17/21 15:45 62 12 109/49 12/17/21 15:30 62 17 108/53 12/17/21 15:15 60 13 108/54 12/17/21 15:01 60 19 99/50 12/17/21 14:45 59 L 19 82/36 12/17/21 14:30 70 13 79/42 12/17/21 14:16 66 16 12/17/21 14:15 65 16 109/52 12/17/21 14:00 60 16 109/52 12/17/21 13:45 65 16 100/56 12/17/21 13:30 59 L 16 97/51 12/17/21 13:15 59 L 16 95/50 12/17/21 13:00 68 16 92/56 12/17/21 12:45 63 16 92/46 12/17/21 12:30 68 16 95/48 12/17/21 12:19 65 102/53 12/17/21 12:15 63 0 L 102/53 12/17/21 12:00 97.7 F 62 62 0 L 96/45 12/17/21 11:45 60 0 L 104/52 Pulse Ox 12/18/21 11:15 12/18/21 11:00 100 12/18/21 10:45 99 12/18/21 10:30 97 12/18/21 10:15 100 12/18/21 10:00 94 12/18/21 09:45 99 12/18/21 09:30 99 12/18/21 09:15 100 12/18/21 09:00 99 12/18/21 08:47 05 08:45 100 12/18/21 08:44 99 12/18/21 08:30 99 12/18/21 08:15 100 12/18/21 08:00 100 12/18/21 07:45 100 12/18/21 07:30 99 12/18/21 07:17 12/18/21 07:15 99 12/18/21 07:00 100 12/18/21 06:45 100 12/18/21 06:30 100 12/18/21 06:15 100 12/18/21 06:00 100 12/18/21 05:45 100 12/18/21 05:30 100 05 05:15 100 05 05:00 100 12/18/21 04:45 100 05 04:30 100 05 04:15 100 05 04:10 100 12/18/21 04:00 100 12/18/21 03:45 100 05 03:30 100 12/18/21 03:15 100 12/18/21 03:00 100 0505 02:46 100 05 02:30 100 0505 02:15 100 05 02:00 100 12/18/21 01:45 100 05 01:30 100 05 01:15 100 05 01:00 100 05 00:45 100 05 00:30 100 05 00:15 100 05 00:04 100 12/18/21 00:00 100 12/17/21 23:45 100 12/17/21 23:31 100 05 23:30 100 12/17/21 23:15 100 05 23:00 100 12/17/21 22:45 100 12/17/21 22:30 100 05 22:15 100 05 22:00 100 12/17/21 21:45 100 12/17/21 21:30 100 12/17/21 21:15 100 12/17/21 21:00 100 12/17/21 20:45 100 12/17/21 20:38 05 20:31 100 12/17/21 20:30 100 12/17/21 20:15 100 12/17/21 20:00 100 12/17/21 19:45 100 12/17/21 19:31 100 12/17/21 19:15 100 12/17/21 19:00 100 12/17/21 18:45 100 12/17/21 18:31 100 12/17/21 18:15 100 12/17/21 18:00 100 12/17/21 17:45 100 12/17/21 17:31 100 12/17/21 17:15 100 12/17/21 17:08 12/17/21 17:01 100 12/17/21 16:45 100 12/17/21 16:30 100 12/17/21 16:15 100 12/17/21 16:10 100 12/17/21 16:00 100 12/17/21 15:45 100 12/17/21 15:30 100 12/17/21 15:15 100 12/17/21 15:01 100 12/17/21 14:45 100 12/17/21 14:30 98 12/17/21 14:16 05 14:15 100 12/17/21 14:00 100 12/17/21 13:45 12/17/21 13:30 12/17/21 13:15 12/17/21 13:00 12/17/21 12:45 12/17/21 12:30 12/17/21 12:19 12/17/21 12:15 12/17/21 12:00 12/17/21 11:45 100 - Physical Examination General: Other (Sedated, on the vent) HEENT: Positive: PERRL Neck: Positive: neck supple Cardiac: Positive: Reg Rate and Rhythm Lungs: Positive: Decreased Breath Sounds Neuro: Positive: Other (Sedated, on the vent) Abdomen: Positive: Soft Skin: Positive: Clear Extremities: Absent: edema - Labs and Meds Cardiac Enzymes 12/18/21 Range/Units 05:00 Lactate Dehydrogenase 154 (91-180) units/L Coagulation 12/17/21 Range/Units 18:32 PT 17.4 H (12.2-14.9) Sec. INR 1.27 H (0.87-1.13) CBC 12/18/21 Range/Units 05:00 WBC 15.3 H (4.5-11.0) K/mm3 RBC 3.25 L (3.65-5.03) M/mm3 Hgb 8.4 L (10.1-14.3) gm/dl Hct 25.7 L (30.3-42.9) % Plt Count 28 L (140-440) K/mm3 Comprehensive Metabolic Panel 12/18/21 Range/Units 05:00 Sodium 135 L (137-145) mmol/L Potassium 3.9 (3.6-5.0) mmol/L Chloride 100.0 (98-107) mmol/L Carbon Dioxide 20 L (22-30) mmol/L BUN 53 H (7-17) mg/dL Creatinine 5.2 H (0.6-1.2) mg/dL Glucose 307 H (65-100) mg/dL Calcium 8.0 L (8.4-10.2) mg/dL - Allied health notes Allied health notes reviewed: nursing
[2021-12-18 11:40] LABS: ABG Base Excess -3.8 mmol/L (-2.0-3.0); ABG HCO3 19.8 mmol/L (20.0-26.0); ABG Methemoglobin 0.4 % (0.0-1.5); ABG Oxygen Saturation 97.5 % (95.0-99.0); ABG PCO2 29.7 mm Hg; ABG PH 7.443 pH Units (7.350-7.450); ABG PO2 92.7 mm Hg (80.0-90.0)
--- NOTE | 2021-12-18 14:21 | Progress Note ---
Assessment and Plan Septic shock Bacteremia with gram-positive cocci End-stage renal disease on dialysis Acute toxic metabolic encephalopathy Non-ST elevation myocardial infarction A-Fib with RVR Hypertension Diabetes type 2 Anemia that is normocytic - wound care consult placed - placed on SBT via PSV mode with p-supp @ 12 and pulling good volumes - get ABG after 2-4 hours - wean vasopressors for target MAP > 65 mmHg - appreciate hematology input - continue Solumedrol 60 mg IV but bid - follow HIT assay sent - continue care as below otherwise; - Daily SAT and SBT assessment as tolerated - continue to wean supplemental oxygen for target O2 sat's > 90% acutely - VAP bundle addressed - continue lung protective strategies - continue bronchodilators with pulmonary hygiene per RT - wean per pulmonary driven protocols otherwise - continue HD/UF for toxin and volume clearance - avoid nephrotoxins, renally dose all medications - continue to avoid benzodiazepine's, reduce the possibility of delirium - complete AB's per ID rec's (On Rocephin) - prn analgesia per CPOT score - Maintenance of sleep-wake cycle, avoid delirium - continue enteral nutritional support at goal rate as tolerated - G.I. & VTE prophylaxis - PT/OT/ROM exercises - continue mobility protocols for pressure ulcer prophylaxis - Monitor hemodynamics closely - continue other care per attending / other consultants - discharge planning ongoing concurrently .... Re-evaluate in am & prn CONDITION: CRITICAL PROGNOSIS: GUARDED CODE STATUS: FULL CODE The high probability of a clinically significant, sudden or life-threatening deterioration of the [respiratory, cardiovascular, renal & neurologic] system(s) required my full and direct attention, intervention and personal management. The aggregate critical care time was [34] minutes without overlap. Time includes spent on; [x] Data Review and interpretation [x] Patient assessment and monitoring of vital signs [x] Documentation [x] Medication orders and management Subjective Date of service: 12/18/21 Principal diagnosis: Septic shock ; Bacteremia; ESRD on dialysis; AMS; NSTEMI; HTN; DM II Interval history: Patient is seen today for: Septic shock ; gm +ve Bacteremia; ESRD on dialysis; AMS; NSTEMI; Hypertension; DM II Seen and examined at bedside; 24hour events reviewed; nursing and respiratory care staff consulted; no adverse overnight events reported to me; resting peacefully in bed; remains on Levophed drip @ 4 jeff's/min; HD/UF about to begin; blisters to right arm begining to open; she is arousable and purposeful but does not follow prompts; no emesis or overt aspiration Objective Vital Signs - 12hr 12/18/21 12/18/21 12/18/21 02:30 02:46 03:00 Temperature Pulse Rate 62 59 L 64 Pulse Rate [ Anterior Bilateral Throughout] Pulse Rate [ From Monitor] Respiratory 20 22 21 Rate Respiratory Rate [Anterior Bilateral Throughout] Blood Pressure 101/48 101/52 O2 Sat by Pulse 100 100 100 Oximetry O2 Sat by Pulse Oximetry [ Anterior Bilateral Throughout] 12/18/21 12/18/21 12/18/21 03:15 03:30 03:45 Temperature Pulse Rate 63 63 62 Pulse Rate [ Anterior Bilateral Throughout] Pulse Rate [ From Monitor] Respiratory 21 21 20 Rate Respiratory Rate [Anterior Bilateral Throughout] Blood Pressure 96/50 104/53 99/47 O2 Sat by Pulse 100 100 100 Oximetry O2 Sat by Pulse Oximetry [ Anterior Bilateral Throughout] 12/18/21 12/18/21 12/18/21 04:00 04:10 04:15 Temperature 98.3 F Pulse Rate 61 62 60 Pulse Rate [ Anterior Bilateral Throughout] Pulse Rate [ 61 From Monitor] Respiratory 20 20 Rate Respiratory Rate [Anterior Bilateral Throughout] Blood Pressure 101/53 101/53 101/53 O2 Sat by Pulse 100 100 100 Oximetry O2 Sat by Pulse Oximetry [ Anterior Bilateral Throughout] 12/18/21 12/18/21 12/18/21 04:30 04:45 05:00 Temperature Pulse Rate 61 61 64 Pulse Rate [ Anterior Bilateral Throughout] Pulse Rate [ From Monitor] Respiratory 20 20 21 Rate Respiratory Rate [Anterior Bilateral Throughout] Blood Pressure 101/56 104/53 100/54 O2 Sat by Pulse 100 100 100 Oximetry O2 Sat by Pulse Oximetry [ Anterior Bilateral Throughout] 12/18/21 12/18/21 12/18/21 05:15 05:30 05:45 Temperature Pulse Rate 68 61 61 Pulse Rate [ Anterior Bilateral Throughout] Pulse Rate [ From Monitor] Respiratory 19 21 17 Rate Respiratory Rate [Anterior Bilateral Throughout] Blood Pressure 99/57 98/47 95/53 O2 Sat by Pulse 100 100 100 Oximetry O2 Sat by Pulse Oximetry [ Anterior Bilateral Throughout] 12/18/21 12/18/21 12/18/21 06:00 06:15 06:30 Temperature Pulse Rate 62 62 61 Pulse Rate [ Anterior Bilateral Throughout] Pulse Rate [ From Monitor] Respiratory 19 21 16 Rate Respiratory Rate [Anterior Bilateral Throughout] Blood Pressure 99/43 97/51 95/55 O2 Sat by Pulse 100 100 100 Oximetry O2 Sat by Pulse Oximetry [ Anterior Bilateral Throughout] 12/18/21 12/18/21 12/18/21 06:45 07:00 07:15 Temperature Pulse Rate 61 62 63 Pulse Rate [ Anterior Bilateral Throughout] Pulse Rate [ From Monitor] Respiratory 16 16 20 Rate Respiratory Rate [Anterior Bilateral Throughout] Blood Pressure 93/50 89/48 86/46 O2 Sat by Pulse 100 100 99 Oximetry O2 Sat by Pulse Oximetry [ Anterior Bilateral Throughout] 12/18/21 12/18/21 12/18/21 07:17 07:30 07:45 Temperature 98.8 F Pulse Rate 61 62 Pulse Rate [ Anterior Bilateral Throughout] Pulse Rate [ From Monitor] Respiratory 21 20 Rate Respiratory Rate [Anterior Bilateral Throughout] Blood Pressure 100/55 94/49 O2 Sat by Pulse 99 100 Oximetry O2 Sat by Pulse Oximetry [ Anterior Bilateral Throughout] 12/18/21 12/18/21 12/18/21 08:00 08:15 08:30 Temperature Pulse Rate 62 65 65 Pulse Rate [ Anterior Bilateral Throughout] Pulse Rate [ 62 From Monitor] Respiratory 21 20 21 Rate Respiratory Rate [Anterior Bilateral Throughout] Blood Pressure 95/52 94/58 99/45 O2 Sat by Pulse 100 100 99 Oximetry O2 Sat by Pulse Oximetry [ Anterior Bilateral Throughout] 12/18/21 12/18/21 12/18/21 08:44 08:45 08:47 Temperature Pulse Rate 64 63 Pulse Rate [ 65 Anterior Bilateral Throughout] Pulse Rate [ From Monitor] Respiratory 19 Rate Respiratory 16 Rate [Anterior Bilateral Throughout] Blood Pressure 100/72 100/72 O2 Sat by Pulse 99 100 Oximetry O2 Sat by Pulse Oximetry [ Anterior Bilateral Throughout] 12/18/21 12/18/21 12/18/21 09:00 09:15 09:30 Temperature Pulse Rate 62 62 60 Pulse Rate [ Anterior Bilateral Throughout] Pulse Rate [ From Monitor] Respiratory 21 20 19 Rate Respiratory Rate [Anterior Bilateral Throughout] Blood Pressure 95/35 88/45 103/52 O2 Sat by Pulse 99 100 99 Oximetry O2 Sat by Pulse Oximetry [ Anterior Bilateral Throughout] 12/18/21 12/18/21 12/18/21 09:45 10:00 10:15 Temperature Pulse Rate 61 63 62 Pulse Rate [ Anterior Bilateral Throughout] Pulse Rate [ From Monitor] Respiratory 20 21 20 Rate Respiratory Rate [Anterior Bilateral Throughout] Blood Pressure 96/50 101/59 102/58 O2 Sat by Pulse 99 94 100 Oximetry O2 Sat by Pulse Oximetry [ Anterior Bilateral Throughout] 12/18/21 12/18/21 12/18/21 10:30 10:45 11:00 Temperature Pulse Rate 63 62 62 Pulse Rate [ Anterior Bilateral Throughout] Pulse Rate [ From Monitor] Respiratory 21 18 16 Rate Respiratory Rate [Anterior Bilateral Throughout] Blood Pressure 93/49 92/50 92/50 O2 Sat by Pulse 97 99 100 Oximetry O2 Sat by Pulse Oximetry [ Anterior Bilateral Throughout] 12/18/21 12/18/21 12/18/21 11:15 11:30 11:45 Temperature 98.1 F Pulse Rate 60 63 61 Pulse Rate [ Anterior Bilateral Throughout] Pulse Rate [ From Monitor] Respiratory 20 20 16 Rate Respiratory Rate [Anterior Bilateral Throughout] Blood Pressure 94/41 92/52 94/52 O2 Sat by Pulse 100 100 99 Oximetry O2 Sat by Pulse Oximetry [ Anterior Bilateral Throughout] 12/18/21 12/18/21 12/18/21 12:00 12:03 12:15 Temperature Pulse Rate 62 62 63 Pulse Rate [ Anterior Bilateral Throughout] Pulse Rate [ 61 From Monitor] Respiratory 18 21 Rate Respiratory Rate [Anterior Bilateral Throughout] Blood Pressure 99/49 99/49 96/50 O2 Sat by Pulse 100 100 96 Oximetry O2 Sat by Pulse Oximetry [ Anterior Bilateral Throughout] 12/18/21 12/18/21 12/18/21 12:30 12:45 13:00 Temperature Pulse Rate 63 62 63 Pulse Rate [ Anterior Bilateral Throughout] Pulse Rate [ From Monitor] Respiratory 17 18 16 Rate Respiratory Rate [Anterior Bilateral Throughout] Blood Pressure 98/53 95/53 96/51 O2 Sat by Pulse 95 100 97 Oximetry O2 Sat by Pulse Oximetry [ Anterior Bilateral Throughout] 12/18/21 12/18/21 12/18/21 13:15 13:30 13:45 Temperature 98.1 F Pulse Rate 59 L 61 61 Pulse Rate [ Anterior Bilateral Throughout] Pulse Rate [ From Monitor] Respiratory 17 16 Rate Respiratory Rate [Anterior Bilateral Throughout] Blood Pressure 103/48 102/54 105/54 O2 Sat by Pulse 100 100 Oximetry O2 Sat by Pulse 100 Oximetry [ Anterior Bilateral Throughout] 12/18/21 14:00 Temperature Pulse Rate 61 Pulse Rate [ Anterior Bilateral Throughout] Pulse Rate [ From Monitor] Respiratory Rate Respiratory Rate [Anterior Bilateral Throughout] Blood Pressure 102/55 O2 Sat by Pulse Oximetry O2 Sat by Pulse Oximetry [ Anterior Bilateral Throughout] Constitutional: no acute distress, other (elderly female with mildly increased respiratory effort at rest) Eyes: non-icteric ENT: oropharynx moist, other (ETT 23 cm JUSTIN) Neck: supple, no JVD Effort: mildly labored Ascultation: Bilateral: rhonchi (scant) Percussion: Bilateral: not dull Cardiovascular: regular rate and rhythm Gastrointestinal: normoactive bowel sounds, soft, non-tender, non-distended (protuberant) Integumentary: rash (right groin / ? scar), other (Left upper extremity AV graft; right forearm blisters (open and closed) and induration; no pus) Extremities: no cyanosis, pulses normal, no ischemia or petechiae, edema (right upper extremity) Neurologic: non-focal exam (grossly), pupils equal and round, unable to assess Psychiatric: other (unable to assess re: AMS) CBC and BMP: 12/18/21 05:00 12/18/21 05:00 ABG, PT/INR, D-dimer: ABG ABG pH 7.443 pH Units (7.350-7.450) 12/18/21 11:10 ABG pCO2 29.7 mm Hg 12/18/21 11:10 ABG pO2 92.7 mm Hg (80.0-90.0) H 12/18/21 11:10 ABG O2 Saturation 97.5 % (95.0-99.0) 12/18/21 11:10 PT/INR, D-dimer PT 17.4 Sec. (12.2-14.9) H 12/17/21 18:32 INR 1.27 (0.87-1.13) H 12/17/21 18:32 Abnormal lab findings: Abnormal Labs 12/11/21 12/11/21 12/12/21 14:52 15:40 04:43 WBC RBC 3.57 L Hgb 9.4 L Hct 29.5 L MCH 26 L 27 L RDW 17.8 H 17.9 H Plt Count 119 L 110 L Lymph % (Auto) 4.0 L Lymph # (Auto) 0.3 L Seg Neutrophils % 90.0 H Seg Neuts % (Manual) Lymphocytes % (Manual) Monocytes % (Manual) Nucleated RBC % Seg Neutrophils # Seg Neutrophils # Man Lymphocytes # (Manual) Percent Retic PT INR Fibrinogen ABG pH ABG pO2 ABG HCO3 ABG O2 Saturation ABG Base Excess ABG Hemoglobin VBG pO2 Oxyhemoglobin Sodium Potassium Chloride Carbon Dioxide 18 L BUN 76 H Creatinine 9.2 H Glucose POC Glucose Lactic Acid Calcium 7.7 L Phosphorus Magnesium Iron TIBC Ferritin Alkaline Phosphatase 237 H Troponin T 0.168 H* C-Reactive Protein Albumin 3.6 L LDL Cholesterol Direct 16 L 12/12/21 12/12/21 12/12/21 04:43 04:43 08:49 WBC RBC Hgb Hct MCH RDW Plt Count Lymph % (Auto) Lymph # (Auto) Seg Neutrophils % Seg Neuts % (Manual) Lymphocytes % (Manual) Monocytes % (Manual) Nucleated RBC % Seg Neutrophils # Seg Neutrophils # Man Lymphocytes # (Manual) Percent Retic PT INR Fibrinogen ABG pH ABG pO2 ABG HCO3 ABG O2 Saturation ABG Base Excess ABG Hemoglobin VBG pO2 Oxyhemoglobin Sodium 136 L Potassium Chloride 96.0 L Carbon Dioxide BUN 85 H Creatinine 9.6 H Glucose 57 L POC Glucose 47 L Lactic Acid Calcium 7.8 L Phosphorus Magnesium Iron TIBC Ferritin Alkaline Phosphatase Troponin T 0.175 H* C-Reactive Protein Albumin LDL Cholesterol Direct 12/12/21 12/13/21 12/13/21 11:12 07:30 07:30 WBC RBC Hgb 9.7 L Hct 30.0 L MCH 27 L RDW 18.0 H Plt Count 99 L Lymph % (Auto) 4.8 L Lymph # (Auto) 0.3 L Seg Neutrophils % 88.2 H Seg Neuts % (Manual) Lymphocytes % (Manual) Monocytes % (Manual) Nucleated RBC % Seg Neutrophils # Seg Neutrophils # Man Lymphocytes # (Manual) Percent Retic PT INR Fibrinogen ABG pH ABG pO2 ABG HCO3 ABG O2 Saturation ABG Base Excess ABG Hemoglobin VBG pO2 Oxyhemoglobin Sodium Potassium 5.1 H Chloride 97.8 L Carbon Dioxide 16 L BUN 92 H Creatinine 10.6 H Glucose 121 H POC Glucose 64 L Lactic Acid Calcium 7.6 L Phosphorus Magnesium Iron TIBC Ferritin Alkaline Phosphatase Troponin T C-Reactive Protein Albumin LDL Cholesterol Direct 12/13/21 12/13/21 12/13/21 08:06 11:32 16:59 WBC RBC Hgb Hct MCH RDW Plt Count Lymph % (Auto) Lymph # (Auto) Seg Neutrophils % Seg Neuts % (Manual) Lymphocytes % (Manual) Monocytes % (Manual) Nucleated RBC % Seg Neutrophils # Seg Neutrophils # Man Lymphocytes # (Manual) Percent Retic PT INR Fibrinogen ABG pH ABG pO2 ABG HCO3 ABG O2 Saturation ABG Base Excess ABG Hemoglobin VBG pO2 Oxyhemoglobin Sodium Potassium Chloride Carbon Dioxide BUN Creatinine Glucose POC Glucose 118 H 128 H 130 H Lactic Acid Calcium Phosphorus Magnesium Iron TIBC Ferritin Alkaline Phosphatase Troponin T C-Reactive Protein Albumin LDL Cholesterol Direct 12/13/21 12/14/21 12/14/21 20:16 11:10 11:10 WBC RBC Hgb 9.9 L Hct MCH 27 L RDW 18.1 H Plt Count 82 L Lymph % (Auto) 5.8 L Lymph # (Auto) 0.4 L Seg Neutrophils % 88.3 H Seg Neuts % (Manual) Lymphocytes % (Manual) Monocytes % (Manual) Nucleated RBC % Seg Neutrophils # Seg Neutrophils # Man Lymphocytes # (Manual) Percent Retic PT INR Fibrinogen ABG pH ABG pO2 ABG HCO3 ABG O2 Saturation ABG Base Excess ABG Hemoglobin VBG pO2 Oxyhemoglobin Sodium Potassium Chloride Carbon Dioxide 21 L BUN 57 H Creatinine 7.1 H Glucose 105 H POC Glucose 113 H Lactic Acid Calcium Phosphorus Magnesium Iron TIBC Ferritin Alkaline Phosphatase Troponin T C-Reactive Protein Albumin LDL Cholesterol Direct 12/14/21 12/14/21 12/15/21 11:46 16:41 04:11 WBC RBC Hgb 9.9 L Hct 30.0 L MCH 27 L RDW 18.4 H Plt Count 57 L Lymph % (Auto) Lymph # (Auto) Seg Neutrophils % Seg Neuts % (Manual) Lymphocytes % (Manual) 9.0 L Monocytes % (Manual) 10.0 H Nucleated RBC % Seg Neutrophils # Seg Neutrophils # Man Lymphocytes # (Manual) 0.6 L Percent Retic PT INR Fibrinogen ABG pH ABG pO2 ABG HCO3 ABG O2 Saturation ABG Base Excess ABG Hemoglobin VBG pO2 Oxyhemoglobin Sodium Potassium Chloride Carbon Dioxide BUN Creatinine Glucose POC Glucose 108 H 111 H Lactic Acid Calcium Phosphorus Magnesium Iron TIBC Ferritin Alkaline Phosphatase Troponin T C-Reactive Protein Albumin LDL Cholesterol Direct 12/15/21 12/15/21 12/15/21 04:11 08:48 10:02 WBC RBC Hgb Hct MCH RDW Plt Count Lymph % (Auto) Lymph # (Auto) Seg Neutrophils % Seg Neuts % (Manual) Lymphocytes % (Manual) Monocytes % (Manual) Nucleated RBC % Seg Neutrophils # Seg Neutrophils # Man Lymphocytes # (Manual) Percent Retic PT INR Fibrinogen ABG pH ABG pO2 ABG HCO3 ABG O2 Saturation ABG Base Excess ABG Hemoglobin VBG pO2 Oxyhemoglobin Sodium Potassium Chloride Carbon Dioxide 19 L BUN 68 H Creatinine 7.6 H Glucose POC Glucose 68 L 65 L Lactic Acid Calcium 8.1 L Phosphorus Magnesium Iron TIBC Ferritin Alkaline Phosphatase Troponin T C-Reactive Protein Albumin LDL Cholesterol Direct 12/15/21 12/15/21 12/15/21 10:20 10:51 14:40 WBC RBC Hgb Hct MCH RDW Plt Count Lymph % (Auto) Lymph # (Auto) Seg Neutrophils % Seg Neuts % (Manual) Lymphocytes % (Manual) Monocytes % (Manual) Nucleated RBC % Seg Neutrophils # Seg Neutrophils # Man Lymphocytes # (Manual) Percent Retic PT INR Fibrinogen ABG pH ABG pO2 ABG HCO3 ABG O2 Saturation ABG Base Excess ABG Hemoglobin VBG pO2 Oxyhemoglobin Sodium Potassium Chloride Carbon Dioxide BUN Creatinine Glucose POC Glucose 59 L 60 L Lactic Acid 2.50 H* Calcium Phosphorus Magnesium Iron TIBC Ferritin Alkaline Phosphatase Troponin T C-Reactive Protein Albumin LDL Cholesterol Direct 12/15/21 12/15/21 12/16/21 14:40 19:50 05:00 WBC 12.4 H RBC Hgb 9.6 L Hct 29.4 L MCH 26 L RDW 18.1 H Plt Count 40 L Lymph % (Auto) Lymph # (Auto) Seg Neutrophils % Seg Neuts % (Manual) 95.0 H Lymphocytes % (Manual) 5.0 L Monocytes % (Manual) Nucleated RBC % Seg Neutrophils # Seg Neutrophils # Man 11.8 H Lymphocytes # (Manual) 0.6 L Percent Retic PT INR Fibrinogen ABG pH ABG pO2 463.3 H ABG HCO3 ABG O2 Saturation 99.6 H ABG Base Excess ABG Hemoglobin 10.9 L VBG pO2 > 258.0 H Oxyhemoglobin Sodium Potassium Chloride Carbon Dioxide BUN Creatinine Glucose POC Glucose Lactic Acid Calcium Phosphorus Magnesium Iron TIBC Ferritin Alkaline Phosphatase Troponin T C-Reactive Protein 38.50 H Albumin LDL Cholesterol Direct 12/16/21 12/16/21 12/16/21 05:00 06:15 09:58 WBC RBC Hgb Hct MCH RDW Plt Count Lymph % (Auto) Lymph # (Auto) Seg Neutrophils % Seg Neuts % (Manual) Lymphocytes % (Manual) Monocytes % (Manual) Nucleated RBC % Seg Neutrophils # Seg Neutrophils # Man Lymphocytes # (Manual) Percent Retic PT INR Fibrinogen ABG pH ABG pO2 48.0 L ABG HCO3 ABG O2 Saturation 80.5 L ABG Base Excess -2.9 L ABG Hemoglobin 11.2 L VBG pO2 Oxyhemoglobin 78.8 L Sodium Potassium Chloride Carbon Dioxide BUN 75 H Creatinine 7.7 H Glucose POC Glucose 67 L Lactic Acid Calcium 8.3 L Phosphorus Magnesium Iron TIBC Ferritin Alkaline Phosphatase Troponin T C-Reactive Protein Albumin LDL Cholesterol Direct 12/16/21 12/16/21 12/17/21 11:06 23:24 04:00 WBC 12.3 H RBC 3.32 L Hgb 8.8 L Hct 26.5 L MCH 26 L RDW 18.0 H Plt Count 27 L Lymph % (Auto) 5.9 L Lymph # (Auto) 0.7 L Seg Neutrophils % 88.3 H Seg Neuts % (Manual) Lymphocytes % (Manual) Monocytes % (Manual) Nucleated RBC % Seg Neutrophils # 10.9 H Seg Neutrophils # Man Lymphocytes # (Manual) Percent Retic PT INR Fibrinogen ABG pH ABG pO2 137.7 H ABG HCO3 ABG O2 Saturation ABG Base Excess ABG Hemoglobin 9.9 L VBG pO2 Oxyhemoglobin Sodium Potassium Chloride Carbon Dioxide BUN Creatinine Glucose POC Glucose 110 H Lactic Acid Calcium Phosphorus Magnesium Iron TIBC Ferritin Alkaline Phosphatase Troponin T C-Reactive Protein Albumin LDL Cholesterol Direct 12/17/21 12/17/21 12/17/21 04:30 04:30 11:18 WBC RBC Hgb Hct MCH RDW Plt Count Lymph % (Auto) Lymph # (Auto) Seg Neutrophils % Seg Neuts % (Manual) Lymphocytes % (Manual) Monocytes % (Manual) Nucleated RBC % Seg Neutrophils # Seg Neutrophils # Man Lymphocytes # (Manual) Percent Retic PT INR Fibrinogen ABG pH ABG pO2 ABG HCO3 ABG O2 Saturation ABG Base Excess ABG Hemoglobin VBG pO2 Oxyhemoglobin Sodium Potassium Chloride Carbon Dioxide BUN 43 H Creatinine 5.0 H Glucose 129 H POC Glucose 149 H Lactic Acid Calcium 7.8 L Phosphorus 1.90 L Magnesium 1.60 L Iron TIBC Ferritin Alkaline Phosphatase Troponin T C-Reactive Protein Albumin LDL Cholesterol Direct 12/17/21 12/17/21 12/17/21 14:35 16:58 18:32 WBC RBC Hgb Hct MCH RDW Plt Count Lymph % (Auto) Lymph # (Auto) Seg Neutrophils % Seg Neuts % (Manual) Lymphocytes % (Manual) Monocytes % (Manual) Nucleated RBC % Seg Neutrophils # Seg Neutrophils # Man Lymphocytes # (Manual) Percent Retic PT 17.4 H INR 1.27 H Fibrinogen 486 H ABG pH 7.316 L ABG pO2 74.0 L ABG HCO3 ABG O2 Saturation 93.7 L ABG Base Excess -3.3 L ABG Hemoglobin 8.8 L VBG pO2 Oxyhemoglobin 91.7 L Sodium Potassium Chloride Carbon Dioxide BUN Creatinine Glucose POC Glucose 219 H Lactic Acid Calcium Phosphorus Magnesium Iron TIBC Ferritin Alkaline Phosphatase Troponin T C-Reactive Protein Albumin LDL Cholesterol Direct 12/17/21 12/18/21 12/18/21 23:19 05:00 05:00 WBC 15.3 H RBC 3.25 L Hgb 8.4 L Hct 25.7 L MCH 26 L RDW 18.2 H Plt Count 28 L Lymph % (Auto) Lymph # (Auto) Seg Neutrophils % Seg Neuts % (Manual) 99.0 H Lymphocytes % (Manual) 1.0 L Monocytes % (Manual) Nucleated RBC % 1.0 H Seg Neutrophils # Seg Neutrophils # Man 15.1 H Lymphocytes # (Manual) 0.2 L Percent Retic 0.37 L PT INR Fibrinogen ABG pH ABG pO2 ABG HCO3 ABG O2 Saturation ABG Base Excess ABG Hemoglobin VBG pO2 Oxyhemoglobin Sodium 135 L Potassium Chloride Carbon Dioxide 20 L BUN 53 H Creatinine 5.2 H Glucose 307 H POC Glucose 313 H Lactic Acid Calcium 8.0 L Phosphorus Magnesium Iron 13 L TIBC 109 L Ferritin Alkaline Phosphatase Troponin T C-Reactive Protein Albumin LDL Cholesterol Direct 12/18/21 12/18/21 12/18/21 05:00 05:00 09:00 WBC RBC Hgb Hct MCH RDW Plt Count Lymph % (Auto) Lymph # (Auto) Seg Neutrophils % Seg Neuts % (Manual) Lymphocytes % (Manual) Monocytes % (Manual) Nucleated RBC % Seg Neutrophils # Seg Neutrophils # Man Lymphocytes # (Manual) Percent Retic PT INR Fibrinogen 481 H ABG pH ABG pO2 50.2 L ABG HCO3 ABG O2 Saturation 81.7 L ABG Base Excess -3.6 L ABG Hemoglobin 8.0 L VBG pO2 Oxyhemoglobin 80.0 L Sodium Potassium Chloride Carbon Dioxide BUN Creatinine Glucose POC Glucose Lactic Acid Calcium Phosphorus Magnesium Iron TIBC Ferritin 383.4 H Alkaline Phosphatase Troponin T C-Reactive Protein Albumin LDL Cholesterol Direct 12/18/21 12/18/21 12/18/21 10:56 11:10 12:00 WBC RBC Hgb Hct MCH RDW Plt Count Lymph % (Auto) Lymph # (Auto) Seg Neutrophils % Seg Neuts % (Manual) Lymphocytes % (Manual) Monocytes % (Manual) Nucleated RBC % Seg Neutrophils # Seg Neutrophils # Man Lymphocytes # (Manual) Percent Retic PT INR Fibrinogen ABG pH ABG pO2 92.7 H ABG HCO3 19.8 L ABG O2 Saturation ABG Base Excess -3.8 L ABG Hemoglobin 6.6 L VBG pO2 Oxyhemoglobin Sodium Potassium Chloride Carbon Dioxide BUN Creatinine Glucose POC Glucose 190 H Lactic Acid Calcium Phosphorus 2.40 L D Magnesium Iron TIBC Ferritin Alkaline Phosphatase Troponin T C-Reactive Protein Albumin LDL Cholesterol Direct Chest x-ray: image reviewed (persistent bilateral infiltrates / edema) Allied health notes reviewed: nursing
--- NOTE | 2021-12-18 16:02 | Progress Note ---
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 -Sedated with fentanyl -RASS goal 0 to -1 -Avoid delirium -Reorientation as needed -Maintain sleep-wake cycle -Aspiration/seizure precautions -Keppra -As needed analgesia -CT head showed small quantity of increased attenuation in the central debora likely related to calcification and hemorrhage not favored, venous collaterals seen within the base of the neck and patient has a left brachiocephalic stent, nonspecific prominent left supraclavicular lymph node, multinodular nodular thyroid gland -Neurology consulted, appreciate recommendations Cardiac: NSTEMI, severe cardiomyopathy with reduced EF, h/o HTN, UT, CAD with UT (2007) s/p PCI , HLD -Cardiology consulted, appreciate recommendations -Blood pressure monitoring per protocol -Vasopressor support with Levophed -MAP goal greater than 65 -Per cardio: Echocardiogram (completed 2 weeks prior to this admission) showed a moderate severity cardiomyopathy, ejection fraction 35 to 40%. -Echo thsi admit shows LVEF 30 to 35%, no valvular vegetations -S/p dobutamine -Lipitor, aspirin, Midodrine -Hold home antihypertensive regimen in setting of hypotension Respiratory: Acute hypoxic respiratory failure -CCM consulted, appreciate recommendations -Intubated 5/2 with 7.5 oett at 20 at the lips -A.m. vent settings: Assist-control rate 16, tidal volume 450, PEEP 8, FiO2 30% -See RT notes for titration -PSV this afternoon -A.m. ABG noted -VAP bundle -SPO2 monitoring GI: Protein calorie malnutrition, h/o GERD -24 hours +2299 mL -PPI -NTR consulted for tube feedings -BR: Senokot : ESRD on HD, hypophosphatemia -Nephrology consulted, appreciate recommendations -HD per nephrology -HD today -Strict intake and output -Renally dose medications -Avoid nephrotoxic medications -Daily weights -PhosLo and Renvela -d/c d/t low phos -Replete phos ID: Sepsis secondary to beta-hemolytic strep group B, RUE infiltration of NS and possible Levophed -Infectious disease consulted, appreciate recommendations -S/p removal of right upper chest PermCath -cath culture with beta-hemolytic strep group B -Antibiotic therapy with ceftriaxone -f/u blood culture -SHOAIB without vegetation -WOCN consult -Dressing changes per nursing -Antidote for levo not available -Cold compress and elevation -Monitor WBC and temperature curve Endo: Multi-nodular thyroid gland, h/o IDDM -Multinodular thyroid gland noted on CT head -Dedicated thyroid ultrasound recommended -Avoid hypoglycemia -SSI -Accu-Cheks ACHS Heme: Leukocytosis, AOCD, thrombocyopenia -Trend CBC -Transfuse hemoglobin less than 7 -Monitor for signs of bleeding -SCDs to BLE while in bed -heparin subq dc -HIT panel sent -Hematology/oncology consulted -Steroids BID -IV iron -Monitor plts MS: S/p fall at home with contusion of right lower extremity, pain and swelling -CT head/C-spine/pelvis showed no acute fracture or dislocation -XR L-spine/right tib-fib/fib/right femur/right hip and pelvis showed no acute fracture or dislocation. -PT consulted The high probability of a clinically significant, sudden or life threatening deterioration of the [multi] system(s) required my full and direct attention, intervention and personal management. The aggregate critical care time was [60] minutes. This time is in addition to time spent performing reported procedures but includes the following: [x] Data Review and interpretation [x] Patient assessment and monitoring of vital signs [x] Documentation [x] Medication orders and management Disposition Plan: icu Total Time Spent with Patient (Minutes): 60 History Interval history: This is a 66 year old female with HTN, seizure disorder, type II DM, 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, UT (2007 (s/p PCI, ESRD on HD, CHF, CAD GERD who presented to the hospital on 12/11 s/p fall which occurred 2 days prior to arrival. Patient stated that she felt dizzy and then found herself on the ground. In the emergency department patient was found to have elevated troponin, elevated BUN/creatinine at 9.2/76, CXR showed pulmonary edema and CT head/C-spine/pelvis showed no acute fracture or dislocation and x-ray L- spine/right tib-fib/fib/right femur/right hip and pelvis showed no acute fracture or dislocation. Patient was admitted to the hospitalist service with consults to nephrology and cardiology. Hospital course to date: 12/12: No acute events overnight, reports extreme pain in her right leg, denies chest pain or shortness of breath 12/13: No acute events overnight, patient tearful and complaining of right leg pain however she is refusing analgesic medication 12/14: Continues to have right leg pain, does not participate in interview 12/15: Patient transferred to the ICU for hypotension on Levophed drip however she was weaned off by morning and midodrine was increased due to borderline MAP. Blood cultures grew 11/17 gram-positive cocci with suspected right upper chest permacath source. Patient started on vancomycin and infectious disease consulted. Plan for IR consult for permacath removal and assessment of aVF functioning. Possible temporary Vas-Cath placement for hemodialysis. Patient is encephalopathic likely secondary to sepsis. Continue current antibiotics and repeat 2D echo and blood cultures in the a.m. Right upper extremity swelling and pain noted and right upper extremity XR and Doppler ordered. 12/16: Patient noted to have blisters on left arm and RN asked to elevate and place cool compresses to site. AV fistula on left upper extremity access by hemodialysis nurse and hemodialysis ongoing. Vasopressin ordered in efforts to wean Levophed while on hemodialysis. Echocardiogram repeated. Blood cultures grew beta-hemolytic strep group B and antibiotics changed to ceftriaxone. Dobutamine drip discontinued. Remained sedated on fentanyl drip. 12/17: Thrombocytopenia worse today, unable to tolerate being off vasopressin, started on steroids, HIT assay ordered-discontinued. SCDs for now. [facility] will like to give normal saline 100 ml/hr for 2 L. 12/18: Wound care consult placed for right upper extremity, PSV trials today, wean ing Levophed, dialysis planned for today. Hematology/oncology consulted yesterday who recommends twice daily Solu-Medrol. No acute events reported overnight. Patient will be started on IV iron Hospitalist Physical - Constitutional Vitals: Temp Pulse Resp BP Pulse Ox 98.1 F 62 9 L 104/61 98 12/18/21 13:30 12/18/21 15:00 12/18/21 15:00 12/18/21 15:00 12/18/21 15:00 General appearance: Present: no acute distress, other (intubated) - EENT Eyes: Present: PERRL, EOM intact ENT: poor dentition - Neck Neck: Present: normal ROM - Respiratory Respiratory effort: normal Respiratory: bilateral: CTA, diminished - Cardiovascular Rhythm: regular Heart Sounds: Present: S1 & S2. Absent: systolic murmur, diastolic murmur - Extremities Extremities: pulses intact, pulses symmetrical Extremity abnormal: edema, ulceration Peripheral Pulses: within normal limits - Abdominal General gastrointestinal: soft, non-tender, non-distended, normal bowel sounds - Integumentary Integumentary: Present: warm (LUE with open and closed blisters) - Psychiatric Psychiatric: other - Neurologic Neurologic: other (intact cough/gag, attempts to focus, ? follow commands) HEART Score - HEART Score Troponin: Troponin T 0.175 ng/mL (0.00-0.029) H* 12/12/21 04:43 Results - Labs CBC & Chem 7: 12/18/21 05:00 12/18/21 05:00 Labs: Laboratory Last Values WBC 15.3 K/mm3 (4.5-11.0) H 12/18/21 05:00 RBC 3.25 M/mm3 (3.65-5.03) L 12/18/21 05:00 Hgb 8.4 gm/dl (10.1-14.3) L 12/18/21 05:00 Hct 25.7 % (30.3-42.9) L 12/18/21 05:00 MCV 79 fl (79-97) 12/18/21 05:00 MCH 26 pg (28-32) L 12/18/21 05:00 MCHC 33 % (30-34) 12/18/21 05:00 RDW 18.2 % (13.2-15.2) H 12/18/21 05:00 Plt Count 28 K/mm3 (140-440) L 12/18/21 05:00 Lymph % (Auto) 5.9 % (13.4-35.0) L 12/17/21 04:00 [place] % (Auto) 4.6 % (0.0-7.3) 12/17/21 04:00 Eos % (Auto) 0.4 % (0.0-4.3) 12/17/21 04:00 Baso % (Auto) 0.8 % (0.0-1.8) 12/17/21 04:00 Lymph # (Auto) 0.7 K/mm3 (1.2-5.4) L 12/17/21 04:00 [place] # (Auto) 0.6 K/mm3 (0.0-0.8) 12/17/21 04:00 Eos # (Auto) 0.0 K/mm3 (0.0-0.4) 12/17/21 04:00 Baso # (Auto) 0.1 K/mm3 (0.0-0.1) 12/17/21 04:00 Add Manual Diff Complete 12/18/21 05:00 Total Counted 100 12/18/21 05:00 Seg Neutrophils % Hearing Care Professional 12/18/21 05:00 Seg Neuts % (Manual) 99.0 % (40.0-70.0) H 12/18/21 05:00 Band Neutrophils % 0 % 12/18/21 05:00 Lymphocytes % (Manual) 1.0 % (13.4-35.0) L 12/18/21 05:00 Reactive Lymphs % (Man) 0 % 12/18/21 05:00 Monocytes % (Manual) 0 % (0.0-7.3) 12/18/21 05:00 Eosinophils % (Manual) 0 % (0.0-4.3) 12/18/21 05:00 Basophils % (Manual) 0 % (0.0-1.8) 12/18/21 05:00 Metamyelocytes % 0 % 12/18/21 05:00 Myelocytes % 0 % 12/18/21 05:00 Promyelocytes % 0 % 12/18/21 05:00 Blast Cells % 0 % 12/18/21 05:00 Nucleated RBC % 1.0 % (0.0-0.9) H 12/18/21 05:00 Seg Neutrophils # 10.9 K/mm3 (1.8-7.7) H 12/17/21 04:00 Seg Neutrophils # Man 15.1 K/mm3 (1.8-7.7) H 12/18/21 05:00 Band Neutrophils # 0.0 K/mm3 12/18/21 05:00 Lymphocytes # (Manual) 0.2 K/mm3 (1.2-5.4) L 12/18/21 05:00 Abs React Lymphs (Man) 0.0 K/mm3 12/18/21 05:00 Monocytes # (Manual) 0.0 K/mm3 (0.0-0.8) 12/18/21 05:00 Eosinophils # (Manual) 0.0 K/mm3 (0.0-0.4) 12/18/21 05:00 Basophils # (Manual) 0.0 K/mm3 (0.0-0.1) 12/18/21 05:00 Metamyelocytes # 0.0 K/mm3 12/18/21 05:00 Myelocytes # 0.0 K/mm3 12/18/21 05:00 Promyelocytes # 0.0 K/mm3 12/18/21 05:00 Blast Cells # 0.0 K/mm3 12/18/21 05:00 WBC Morphology Not Reportable 12/18/21 05:00 Hypersegmented Neuts Not Reportable 12/18/21 05:00 Hyposegmented Neuts Not Reportable 12/18/21 05:00 Hypogranular Neuts Not Reportable 12/18/21 05:00 Smudge Cells Not Reportable 12/18/21 05:00 Toxic Granulation Not Reportable 12/18/21 05:00 Toxic Vacuolation Not Reportable 12/18/21 05:00 Dohle Bodies Not Reportable 12/18/21 05:00 Pelger-Huet Anomaly Not Reportable 12/18/21 05:00 Charles Rods Not Reportable 12/18/21 05:00 Platelet Estimate Consistent w auto 12/18/21 05:00 Clumped Platelets Not Reportable 12/18/21 05:00 Plt Clumps, EDTA Not Reportable 12/18/21 05:00 Large Platelets Not Reportable 12/18/21 05:00 Giant Platelets Not Reportable 12/18/21 05:00 Platelet Satelliting Not Reportable 12/18/21 05:00 Plt Morphology Comment Not Reportable 12/18/21 05:00 RBC Morphology Not Reportable 12/18/21 05:00 Dimorphic RBCs Not Reportable 12/18/21 05:00 Polychromasia Not Reportable 12/18/21 05:00 Hypochromasia 1+ 12/18/21 05:00 Poikilocytosis Not Reportable 12/18/21 05:00 Anisocytosis 1+ 12/18/21 05:00 Microcytosis Not Reportable 12/18/21 05:00 Macrocytosis Not Reportable 12/18/21 05:00 Spherocytes Not Reportable 12/18/21 05:00 Pappenheimer Bodies Not Reportable 12/18/21 05:00 Sickle Cells Not Reportable 12/18/21 05:00 Target Cells Few 12/18/21 05:00 Tear Drop Cells Not Reportable 12/18/21 05:00 Ovalocytes Few 12/18/21 05:00 Helmet Cells Not Reportable 12/18/21 05:00 Murphy-Samak Bodies Not Reportable 12/18/21 05:00 [place] Rings Not Reportable 12/18/21 05:00 [place] Cells Not Reportable 12/18/21 05:00 Bite Cells Not Reportable 12/18/21 05:00 Crenated Cell Not Reportable 12/18/21 05:00 Elliptocytes Not Reportable 12/18/21 05:00 Acanthocytes (Spur) Not Reportable 12/18/21 05:00 Rouleaux Not Reportable 12/18/21 05:00 Hemoglobin C Crystals Not Reportable 12/18/21 05:00 Schistocytes Few 12/18/21 05:00 Malaria parasites Not Reportable 12/18/21 05:00 Percent Retic 0.37 % (0.78-2.58) L 12/18/21 05:00 Bryson Bodies Not Reportable 12/18/21 05:00 Hem Pathologist Commnt No 12/18/21 05:00 PT 17.4 Sec. (12.2-14.9) H 12/17/21 18:32 INR 1.27 (0.87-1.13) H 12/17/21 18:32 Fibrinogen 481 mg/dl (211-480) H 12/18/21 05:00 ABG pH 7.443 pH Units (7.350-7.450) 12/18/21 11:10 ABG pCO2 29.7 mm Hg 12/18/21 11:10 ABG pO2 92.7 mm Hg (80.0-90.0) H 12/18/21 11:10 ABG HCO3 19.8 mmol/L (20.0-26.0) L 12/18/21 11:10 ABG O2 Saturation 97.5 % (95.0-99.0) 12/18/21 11:10 ABG O2 Content 9.1 (0.0-44) 12/18/21 11:10 ABG Base Excess -3.8 mmol/L (-2.0-3.0) L 12/18/21 11:10 ABG Hemoglobin 6.6 gm/dl (12.0-16.0) L 12/18/21 11:10 ABG Carboxyhemoglobin 1.3 % (0.0-5.0) 12/18/21 11:10 ABG Methemoglobin 0.4 % (0.0-1.5) 12/18/21 11:10 VBG pO2 > 258.0 (25.0-47.0) H 12/15/21 19:50 Oxyhemoglobin 95.8 % (95.0-99.0) 12/18/21 11:10 FiO2 21 % 12/18/21 11:10 Sodium 135 mmol/L (137-145) L 12/18/21 05:00 Potassium 3.9 mmol/L (3.6-5.0) 12/18/21 05:00 Chloride 100.0 mmol/L (98-107) 12/18/21 05:00 Carbon Dioxide 20 mmol/L (22-30) L 12/18/21 05:00 Anion Gap 19 mmol/L 12/18/21 05:00 BUN 53 mg/dL (7-17) H 12/18/21 05:00 Creatinine 5.2 mg/dL (0.6-1.2) H 12/18/21 05:00 Estimated GFR 10 ml/min 12/18/21 05:00 BUN/Creatinine Ratio 10 % 12/18/21 05:00 Glucose 307 mg/dL (65-100) H 12/18/21 05:00 POC Glucose 190 mg/dL (70-105) H 12/18/21 10:56 Lactic Acid 1.90 mmol/L (0.7-2.0) 12/16/21 05:00 Calcium 8.0 mg/dL (8.4-10.2) L 12/18/21 05:00 Phosphorus 2.40 mg/dL (2.5-4.5) L D 12/18/21 12:00 Magnesium 2.10 mg/dL (1.7-2.3) 12/18/21 12:00 Iron 13 ug/dL (37-170) L 12/18/21 05:00 TIBC 109 mcg/dL (250-450) L 12/18/21 05:00 Ferritin 383.4 ng/mL (10.0-200.0) H 12/18/21 05:00 Total Bilirubin 0.60 mg/dL (0.1-1.2) 12/11/21 15:40 AST 22 units/L (5-40) 12/11/21 15:40 ALT 13 units/L (7-56) 12/11/21 15:40 Alkaline Phosphatase 237 units/L (35-129) H 12/11/21 15:40 Lactate Dehydrogenase 154 units/L (91-180) 12/18/21 05:00 Troponin T 0.175 ng/mL (0.00-0.029) H* 12/12/21 04:43 C-Reactive Protein 38.50 mg/dL (0.00-1.30) H 12/15/21 14:40 Total Protein 7.4 g/dL (6.3-8.2) 12/11/21 15:40 Albumin 3.6 g/dL (3.9-5) L 12/11/21 15:40 Albumin/Globulin Ratio 0.9 % 12/11/21 15:40 Triglycerides 92 mg/dL (2-149) 12/11/21 15:40 Cholesterol 72 mg/dL (50-199) 12/11/21 15:40 LDL Cholesterol Direct 16 mg/dL (50-130) L 12/11/21 15:40 HDL Cholesterol 41 mg/dL (40-59) 12/11/21 15:40 Cholesterol/HDL Ratio 1.75 % 12/11/21 15:40 Procalcitonin 46.16 ng/mL (<0.15) 12/15/21 04:11 Random Vancomycin 15.6 ug/mL (0-40.0) 12/16/21 05:00 Blood Type O POSITIVE 12/17/21 09:30 Antibody Screen Negative 12/17/21 09:30 Microbiology: Microbiology 12/16/21 10:03 Peripheral/Venous Blood Culture - Preliminary NO GROWTH AFTER 48 HOURS 12/16/21 09:57 Peripheral/Venous Blood Culture - Preliminary NO GROWTH AFTER 48 HOURS Active Medications - Current Medications Current Medications: Generic Name Dose Route Start Last Admin Trade Name Freq PRN Reason Stop Dose Admin Acetaminophen 650 mg 12/13/21 23:00 12/13/21 23:18 Acetaminophen 650 Mg Rect Supp MI 650 mg Q4H PRN Administration Pain, Mild (1-3) Albuterol 2.5 mg 12/11/21 22:14 Albuterol 2.5 Mg/3 Ml Nebu IH Q6HR PRN Wheezing Albuterol/Ipratropium 1 ampul 12/14/21 08:00 12/18/21 14:52 Ipratropium/Albuterol Sulfate 3 Ml Ampul.Neb IH 1 ampul TIDRT KRISTA Administration Lipase/Protease/Amylase 1 each 12/16/21 11:15 Lipase 10,500/Protease 25,000/Amylase 43,750 (Units) Dr Blanco FEEDTUBE PRN PRN For Clogged Feeding Tube Aspirin 81 mg 12/15/21 10:00 12/18/21 09:21 Aspirin 81 Mg Tab Chew FEEDTUBE 81 mg QDAY KRISTA Administration Atorvastatin Calcium 80 mg 12/15/21 22:00 12/17/21 21:47 Atorvastatin 40 Mg Tab FEEDTUBE 80 mg QHS KRISTA Administration Budesonide 0.5 mg 12/13/21 08:00 12/18/21 08:43 Budesonide 0.5 Mg/2 Ml Nebu IH 0.5 mg Q12HRT KRISTA Administration Dextrose 50 ml 12/11/21 22:23 12/16/21 06:24 Dextrose 50% In Water (25gm) 50 Ml Syringe IV 15 ml Q30MIN PRN Administration Hypoglycemia Protocol Famotidine 10 mg 12/15/21 22:00 12/18/21 09:21 Famotidine 10 Mg Tab FEEDTUBE 10 mg BID KRISTA Administration Fentanyl 50 mcg 12/15/21 17:19 12/15/21 17:58 Fentanyl 100 Mcg/2 Ml Inj IV 50 mcg Q10MIN PRN Administration ANALGESIA Hydrophilic Ointment 1 applic 12/16/21 14:30 Lip Therapy Vaseline TP Q2HR PRN Dry Lips Sodium Chloride 100 mls @ 999 mls/hr 12/12/21 12:00 Nacl 0.9% IV ABEL PRN Hypotension NORepinephrine/NS 8 MG-250 ML 8 mg in 250 mls @ 3.75 mls/hr 12/14/21 23:00 12/18/21 13:45 Norepinephrine/Ns 8 Mg-250 Ml (Double Conc) IV 4 mcg/min TITRATE KRISTA 7.5 mls/hr Titration Protocol 2 MCG/MIN Fentanyl Citrate 2,000 mcg in 100 mls @ 2.945 mls/hr 12/15/21 18:00 12/18/21 09:19 Fentanyl Drip Premix IV 1 mcg/kg/hr TITR KRISTA 2.945 mls/hr Titration Protocol 1 MCG/KG/HR Vasopressin 20 unit/ Sodium 101 mls @ 9.09 mls/hr 12/16/21 10:00 12/17/21 18:27 Chloride IV 0 units/min TITR KRISTA 0 mls/hr Titration Protocol 0.03 UNITS/MIN Ceftriaxone Sodium 2 gm in 100 mls @ 200 mls/hr 12/16/21 15:00 12/17/21 14:15 Rocephin/Ns 2 Gm/100 Ml IV 12/29/21 15:29 200 mls/hr Q24H KRISTA Administration Protocol Sodium Chloride 1,000 mls @ 100 mls/hr 12/17/21 14:15 12/18/21 00:45 Nacl 0.9% 1000 Ml IV 12/19/21 00:14 100 mls/hr DIRECT KRISTA Administration Ferric Sodium Gluconate 110 mls @ 100 mls/hr 12/18/21 11:00 12/18/21 11:26 Complex 125 mg/ Sodium IV 12/21/21 23:59 100 mls/hr Chloride DAILY KRISTA Administration Insulin Human Lispro 0 unit 12/15/21 12:00 12/18/21 11:38 Insulin Lispro 100 Unit/Ml SUB-Q 3 unit Q6HR KRISTA Administration Protocol Levetiracetam 500 mg 12/16/21 18:00 12/16/21 20:45 Levetiracetam 500 Mg/5 Ml Oral Liqd FEEDTUBE 500 mg TuThSa KRISTA Administration Methylprednisolone Sodium Succinate 60 mg 12/18/21 22:00 Methylprednisolone Sod Succinate 125 Mg/2 Ml Inj IV 12/21/21 21:59 Q12HR KRISTA Midodrine 10 mg 12/15/21 12:00 12/18/21 15:46 Midodrine 10 Mg Tab FEEDTUBE 10 mg TID@0800,1200,1600 KRISTA Administration Morphine Sulfate 2 mg 12/11/21 22:11 Morphine 4 Mg/1 Ml Inj IV Q5MIN PRN Chest Pain unrelieved by NTG Multi-Ingred Cream/Lotion/Oil/Oint 1 applic 12/16/21 14:10 Mineral Oil/Petrolatum, White Ophth Oint 3.5 Gm OU Q4HR PRN Dry Eye(s) Nitroglycerin 0.4 mg 12/11/21 22:11 Nitroglycerin 0.4 Mg Tab Subl SL Q5M PRN Chest Pain Senna/Docusate Sodium 1 tab 12/16/21 22:00 12/18/21 09:21 Sennosides/Docusate Sodium 8.6/50 Mg Tab FEEDTUBE 1 tab BID KRISTA Administration Simple Syrup 15 ml 12/16/21 11:15 Simple Syrup 15 Ml FEEDTUBE PRN PRN Hypoglycemia Simple Syrup 30 ml 12/16/21 11:15 Simple Syrup 15 Ml FEEDTUBE PRN PRN Hypoglycemia Sodium Bicarbonate 325 mg 12/16/21 11:15 Sodium Bicarbonate 325 Mg Tab FEEDTUBE PRN PRN For Clogged Feeding Tube Sodium Chloride 10 ml 12/11/21 22:11 12/18/21 09:21 Sodium Chloride 0.9% 10 Ml Flush Syringe IV 10 ml PRN PRN Administration LINE FLUSH Nutrition/Malnutrition Assess - Dietary Evaluation Nutrition/Malnutrition Findings: Nutrition Notes Start: 12/12/21 11:57 Freq: Status: Active Protocol: Document 12/16/21 12:42 EVERARDO (Rec: 12/16/21 13:25 EVERARDO [id number]) Nutrition Notes Need for Assessment generated from: MD Order Initial or Follow up Reassessment Current Diagnosis CKD (stage V CKD),Diabetes, Sepsis,Hypertension, Respiratory Failure Other Pertinent Diagnosis CKD+HD, Hypotension, GPC Bacteremia, s/p Fall, ... Current Diet TF-Nepro w/CARBSTEADY @ 30 ml/ hr (from L 12/17). Labs/Tests 12/16: BUN 75, Crea 7.7, Ca 8. 3. Pertinent Medications 11/16: Vasopressin 20 U/101 ml @ 9.09 ml/hr, others nutritionally unremarkable. Height 4 ft 11 in Weight 58.9 kg [place] Body Weight (kg) 43.18 BMI 26.2 Weight change and time frame No body weight change reported . Weight Status Appropriate Subjective/Other Information RD consult for write/manage TF . TF was already prepared yesterday, I will place the order. Pt is on Mechanical ventilation, O2 saturation @ 100%, according to Physical Assessment History notes. Pt's HD is running on L-arm AV Graft, according to Progress notes. On 12/16, HD had to be suspended, due to Pt's worsening condition and increasing Pressor requirement , according to Event note. Percent of energy/protein needs met: Prescribed TF-Nepro w/ CARBSTEADY @ 30 ml/hr provides for energy/protein needs (1, 296 Kcal/58 g) during LOS, 103 % Kcal; 82% AA. Burn Absent Trauma Absent GI Symptoms None Difficulty In Swallowing Food Allergy No Skin Integrity/Comment R-Arm area of concern. Current % PO Other Minimum of two criteria No #1 Nutrition Diagnosis Inadequate oral intake Etiology Encephalopathy and Pt now on Mechanical Ventilation. As Evidenced by Signs and Symptoms Pt continues on NPO. Is patient on ventilator? Yes Is Patient Ambulatory and/or Out of Bed No REE-([facility]-confined to bed) [phone] Calculation Used for Recommendations [facility] Additional Notes Protein: >1.2 g/Kg ABW; >71 g/ day. Fluids: 1-1.5 L/day, or as per MD. Nutrition Intervention Nutrition Support: Start TF-Nepro w/CARBSTEADY @ 30 ml/hr. Flush: 130 ml water Q 4 hr, or as per MD. Kcal 1,296 Protein (gm) 58 Carbohydrates (gm) 116 Fat (gm) 69 Fluid (mL) 523 Fiber (gm) 9 % RDI: 103% Kcal; 82% AA. Goal #1 Provide at least 75% of energy /protein needs through Enteral Feeding during LOS. Goal #2 Maintain body weight within +/ -3% of admission body weight during LOS. Follow-Up By: 12/19/21 Additional Comments Start monitoring TF tolerance and BM. <JHON JEFF - Last Filed: 12/25/21 08:57> Assessment and Plan Assessment and plan: I saw and evaluated the patient. Discussed with the nurse practitioner and agree with their findings and plan as documented in this note. Hospitalist Physical - Constitutional Vitals: Temp Pulse Resp BP Pulse Ox 99.6 F 90 18 98/57 100 12/25/21 07:24 12/25/21 07:17 12/25/21 07:17 12/25/21 06:00 12/25/21 07:17 HEART Score - HEART Score Troponin: Troponin T 0.175 ng/mL (0.00-0.029) H* 12/12/21 04:43 Results - Labs CBC & Chem 7: 12/25/21 05:12 12/25/21 05:12 Labs: Laboratory Last Values WBC 17.4 K/mm3 (4.5-11.0) H 12/25/21 05:12 RBC 3.10 M/mm3 (3.65-5.03) L 12/25/21 05:12 Hgb 8.3 gm/dl (10.1-14.3) L 12/25/21 05:12 Hct 24.7 % (30.3-42.9) L 12/25/21 05:12 MCV 80 fl (79-97) 12/25/21 05:12 MCH 27 pg (28-32) L 12/25/21 05:12 MCHC 34 % (30-34) 12/25/21 05:12 RDW 17.7 % (13.2-15.2) H 12/25/21 05:12 Plt Count 105 K/mm3 (140-440) L 12/25/21 05:12 Lymph % (Auto) 5.9 % (13.4-35.0) L 12/17/21 04:00 [place] % (Auto) 4.6 % (0.0-7.3) 12/17/21 04:00 Eos % (Auto) 0.4 % (0.0-4.3) 12/17/21 04:00 Baso % (Auto) 0.8 % (0.0-1.8) 12/17/21 04:00 Lymph # (Auto) 0.7 K/mm3 (1.2-5.4) L 12/17/21 04:00 [place] # (Auto) 0.6 K/mm3 (0.0-0.8) 12/17/21 04:00 Eos # (Auto) 0.0 K/mm3 (0.0-0.4) 12/17/21 04:00 Baso # (Auto) 0.1 K/mm3 (0.0-0.1) 12/17/21 04:00 Add Manual Diff Complete 12/18/21 05:00 Total Counted 100 12/19/21 05:00 Seg Neutrophils % Hearing Care Professional 12/19/21 05:00 Seg Neuts % (Manual) 93.0 % (40.0-70.0) H 12/19/21 05:00 Band Neutrophils % 2.0 % 12/19/21 05:00 Lymphocytes % (Manual) 2.0 % (13.4-35.0) L 12/19/21 05:00 Reactive Lymphs % (Man) 0 % 12/19/21 05:00 Monocytes % (Manual) 1.0 % (0.0-7.3) 12/19/21 05:00 Eosinophils % (Manual) 0 % (0.0-4.3) 12/19/21 05:00 Basophils % (Manual) 0 % (0.0-1.8) 12/19/21 05:00 Metamyelocytes % 2.0 % 12/19/21 05:00 Myelocytes % 0 % 12/19/21 05:00 Promyelocytes % 0 % 12/19/21 05:00 Blast Cells % 0 % 12/19/21 05:00 Nucleated RBC % Not Reportable 12/19/21 05:00 Seg Neutrophils # 10.9 K/mm3 (1.8-7.7) H 12/17/21 04:00 Seg Neutrophils # Man 17.6 K/mm3 (1.8-7.7) H 12/19/21 05:00 Band Neutrophils # 0.4 K/mm3 12/19/21 05:00 Lymphocytes # (Manual) 0.4 K/mm3 (1.2-5.4) L 12/19/21 05:00 Abs React Lymphs (Man) 0.0 K/mm3 12/19/21 05:00 Monocytes # (Manual) 0.2 K/mm3 (0.0-0.8) 12/19/21 05:00 Eosinophils # (Manual) 0.0 K/mm3 (0.0-0.4) 12/19/21 05:00 Basophils # (Manual) 0.0 K/mm3 (0.0-0.1) 12/19/21 05:00 Metamyelocytes # 0.4 K/mm3 12/19/21 05:00 Myelocytes # 0.0 K/mm3 12/19/21 05:00 Promyelocytes # 0.0 K/mm3 12/19/21 05:00 Blast Cells # 0.0 K/mm3 12/19/21 05:00 WBC Morphology Not Reportable 12/19/21 05:00 Hypersegmented Neuts Not Reportable 12/19/21 05:00 Hyposegmented Neuts 1+ 12/19/21 05:00 Hypogranular Neuts Not Reportable 12/19/21 05:00 Smudge Cells Not Reportable 12/19/21 05:00 Toxic Granulation Not Reportable 12/19/21 05:00 Toxic Vacuolation Not Reportable 12/19/21 05:00 Dohle Bodies Not Reportable 12/19/21 05:00 Pelger-Huet Anomaly Not Reportable 12/19/21 05:00 Charles Rods Not Reportable 12/19/21 05:00 Platelet Estimate Consistent w auto 12/19/21 05:00 Clumped Platelets Not Reportable 12/19/21 05:00 Plt Clumps, EDTA Not Reportable 12/19/21 05:00 Large Platelets Not Reportable 12/19/21 05:00 Giant Platelets Not Reportable 12/19/21 05:00 Platelet Satelliting Not Reportable 12/19/21 05:00 Plt Morphology Comment Not Reportable 12/19/21 05:00 RBC Morphology Not Reportable 12/19/21 05:00 Dimorphic RBCs Not Reportable 12/19/21 05:00 Polychromasia Not Reportable 12/19/21 05:00 Hypochromasia 1+ 12/19/21 05:00 Poikilocytosis Few 12/19/21 05:00 Anisocytosis Few 12/19/21 05:00 Microcytosis Not Reportable 12/19/21 05:00 Macrocytosis Not Reportable 12/19/21 05:00 Spherocytes Not Reportable 12/19/21 05:00 Pappenheimer Bodies Not Reportable 12/19/21 05:00 Sickle Cells Not Reportable 12/19/21 05:00 Target Cells Rare 12/19/21 05:00 Tear Drop Cells Not Reportable 12/19/21 05:00 Ovalocytes Rare 12/19/21 05:00 Helmet Cells Not Reportable 12/19/21 05:00 Murphy-Samak Bodies Not Reportable 12/19/21 05:00 [place] Rings Not Reportable 12/19/21 05:00 Olivia Cells Not Reportable 12/19/21 05:00 Bite Cells Not Reportable 12/19/21 05:00 Crenated Cell Not Reportable 12/19/21 05:00 Elliptocytes Not Reportable 12/19/21 05:00 Acanthocytes (Spur) Not Reportable 12/19/21 05:00 Rouleaux Rare 12/19/21 05:00 Hemoglobin C Crystals Not Reportable 12/19/21 05:00 Schistocytes Rare 12/19/21 05:00 Malaria parasites Not Reportable 12/19/21 05:00 Percent Retic 0.37 % (0.78-2.58) L 12/18/21 05:00 Bryson Bodies Not Reportable 12/19/21 05:00 Haptoglobin 193 mg/dL (43-212) 12/18/21 05:00 Hem Pathologist Commnt Not Reportable 12/19/21 05:00 PT 17.7 Sec. (12.2-14.9) H 12/22/21 14:05 INR 1.30 (0.87-1.13) H 12/22/21 14:05 Fibrinogen 351 mg/dl (211-480) 12/21/21 08:35 Heparin Anti-Xa, Unfract Negative (Negative) 12/17/21 09:30 ABG pH 7.450 pH Units (7.350-7.450) 12/24/21 Unknown POC ABG pCO2 36.0 mmHg (32.0-48.0) 12/21/21 10:20 ABG pCO2 39.1 mm Hg 12/24/21 Unknown POC ABG pO2 126.1 mmHg (83-108) H 12/21/21 10:20 ABG pO2 109.1 mm Hg (80.0-90.0) H 12/24/21 Unknown POC ABG HCO3 24.3 12/21/21 10:20 ABG HCO3 26.6 mmol/L (20.0-26.0) H 12/24/21 Unknown ABG O2 Saturation 98.1 % (95.0-99.0) 12/24/21 Unknown ABG O2 Content 9.4 (0.0-44) 12/24/21 Unknown POC ABG Base Excess 0.6 12/21/21 10:20 ABG Base Excess 2.4 mmol/L (-2.0-3.0) 12/24/21 Unknown ABG Hemoglobin 6.8 gm/dl (12.0-16.0) L 12/24/21 Unknown ABG Oxyhemoglobin 97.4 (94-98) 12/21/21 10:20 ABG Carboxyhemoglobin 1.8 % (0.0-5.0) 12/24/21 Unknown ABG Methemoglobin 0.5 % (0.0-1.5) 12/24/21 Unknown ABG Sodium Not Reportable 12/21/21 10:20 ABG Potassium Not Reportable 12/21/21 10:20 ABG Chloride Not Reportable 12/21/21 10:20 ABG Glucose Not Reportable 12/21/21 10:20 VBG pO2 > 258.0 (25.0-47.0) H 12/15/21 19:50 Oxyhemoglobin 95.8 % (95.0-99.0) 12/24/21 Unknown Carboxyhemoglobin 0.9 (0.5-1.5) 12/21/21 10:20 FiO2 30 % 12/24/21 Unknown FiO2 % 30.0 12/21/21 10:20 Sodium 138 mmol/L (137-145) 12/25/21 05:12 Potassium 3.5 mmol/L (3.6-5.0) L 12/25/21 05:12 Chloride 99.3 mmol/L (98-107) 12/25/21 05:12 Carbon Dioxide 25 mmol/L (22-30) 12/25/21 05:12 Anion Gap 17 mmol/L 12/25/21 05:12 BUN 38 mg/dL (7-17) H 12/25/21 05:12 Creatinine 3.7 mg/dL (0.6-1.2) H 12/25/21 05:12 Estimated GFR 15 ml/min 12/25/21 05:12 BUN/Creatinine Ratio 10 % 12/25/21 05:12 Glucose 201 mg/dL (65-100) H 12/25/21 05:12 POC Glucose 174 mg/dL (70-105) H 12/24/21 23:54 Lactic Acid 1.90 mmol/L (0.7-2.0) 12/16/21 05:00 Calcium 8.0 mg/dL (8.4-10.2) L 12/25/21 05:12 Phosphorus 4.90 mg/dL (2.5-4.5) H 12/23/21 04:39 Magnesium 1.90 mg/dL (1.7-2.3) 12/23/21 04:39 Iron 13 ug/dL (37-170) L 12/18/21 05:00 TIBC 109 mcg/dL (250-450) L 12/18/21 05:00 Ferritin 383.4 ng/mL (10.0-200.0) H 12/18/21 05:00 Total Bilirubin 0.60 mg/dL (0.1-1.2) 12/11/21 15:40 AST 22 units/L (5-40) 12/11/21 15:40 ALT 13 units/L (7-56) 12/11/21 15:40 Alkaline Phosphatase 237 units/L (35-129) H 12/11/21 15:40 Lactate Dehydrogenase 249 units/L (91-180) H 12/21/21 08:35 Troponin T 0.175 ng/mL (0.00-0.029) H* 12/12/21 04:43 C-Reactive Protein 38.50 mg/dL (0.00-1.30) H 12/15/21 14:40 Total Protein 7.4 g/dL (6.3-8.2) 12/11/21 15:40 Albumin 3.6 g/dL (3.9-5) L 12/11/21 15:40 Albumin/Globulin Ratio 0.9 % 12/11/21 15:40 Triglycerides 92 mg/dL (2-149) 12/11/21 15:40 Cholesterol 72 mg/dL (50-199) 12/11/21 15:40 LDL Cholesterol Direct 16 mg/dL (50-130) L 12/11/21 15:40 HDL Cholesterol 41 mg/dL (40-59) 12/11/21 15:40 Cholesterol/HDL Ratio 1.75 % 12/11/21 15:40 Serotonin Release Assay See scanned result 12/17/21 09:30 Procalcitonin 46.16 ng/mL (<0.15) 12/15/21 04:11 Arterial Blood Glucose Not Reportable 12/21/21 10:20 Random Vancomycin 15.6 ug/mL (0-40.0) 12/16/21 05:00 Heparin-induced Plt Ab Negative (Negative) 12/17/21 09:30 UF Heparin High Dose 1 % Release 12/17/21 09:30 JAMILAH UFH Low Dose 0.1 0 % Release 12/17/21 09:30 JAMILAH UFH Low Dose 0.5 0 % Release 12/17/21 09:30 Blood Type O POSITIVE 12/23/21 16:20 Antibody Screen Negative 12/23/21 16:20 Crossmatch See Detail 12/23/21 16:20 Johnson/IV: Voiding Method Incontinent Active Medications - Current Medications Current Medications: Generic Name Dose Route Start Last Admin Trade Name Freq PRN Reason Stop Dose Admin Acetaminophen 650 mg 12/13/21 23:00 12/13/21 23:18 Acetaminophen 650 Mg Rect Supp MI 650 mg Q4H PRN Administration Pain, Mild (1-3) Acetaminophen 650 mg 12/24/21 14:02 12/25/21 02:04 Acetaminophen 325 Mg/10.15 Ml Oral Liqd Unit Dose FEEDTUBE 650 mg Q6H PRN Administration Pain, Mild (1-3) Albuterol 2.5 mg 12/11/21 22:14 Albuterol 2.5 Mg/3 Ml Nebu IH Q6HR PRN Wheezing Albuterol/Ipratropium 1 ampul 12/14/21 08:00 12/25/21 07:17 Ipratropium/Albuterol Sulfate 3 Ml Ampul.Neb IH 1 ampul TIDRT KRISTA Administration Lipase/Protease/Amylase 1 each 12/16/21 11:15 Lipase 10,500/Protease 25,000/Amylase 43,750 (Units) Dr Blanco FEEDTUBE PRN PRN For Clogged Feeding Tube Atorvastatin Calcium 80 mg 12/15/21 22:00 12/24/21 22:00 Atorvastatin 40 Mg Tab FEEDTUBE 80 mg QHS KRISTA Administration Budesonide 0.5 mg 04/30/22 08:00 12/25/21 07:17 Budesonide 0.5 Mg/2 Ml Nebu IH 0.5 mg Q12HRT KRISTA Administration Dextrose 50 ml 12/11/21 22:23 12/16/21 06:24 Dextrose 50% In Water (25gm) 50 Ml Syringe IV 15 ml Q30MIN PRN Administration Hypoglycemia Protocol Hydrophilic Ointment 1 applic 12/16/21 14:30 Lip Therapy Vaseline TP Q2HR PRN Dry Lips Sodium Chloride 100 mls @ 999 mls/hr 12/12/21 12:00 Nacl 0.9% IV ABEL PRN Hypotension Ceftriaxone Sodium 2 gm in 100 mls @ 200 mls/hr 12/16/21 15:00 12/24/21 14:07 Rocephin/Ns 2 Gm/100 Ml IV 12/29/21 15:29 200 mls/hr Q24H KRISTA Administration Protocol Insulin Glargine 5 units 12/25/21 22:00 Insulin Glargine 100 Units/Ml SUB-Q QHS KRISTA Insulin Human Lispro 0 unit 12/15/21 12:00 12/25/21 06:05 Insulin Lispro 100 Unit/Ml SUB-Q 4 unit Q6HR KRISTA Administration Protocol Lansoprazole 30 mg 12/25/21 10:00 Lansoprazole 30 Mg Solutab FEEDTUBE QDAY KRISTA Levetiracetam 500 mg 12/16/21 18:00 12/23/21 17:32 Levetiracetam 500 Mg/5 Ml Oral Liqd FEEDTUBE 500 mg TuThSa [facility] Administration Midodrine 5 mg 12/24/21 12:00 12/24/21 16:40 Midodrine 5 Mg Tab FEEDTUBE Not Given TID@0800,1200,1600 KRISTA Morphine Sulfate 2 mg 12/11/21 22:11 12/24/21 03:20 Morphine 4 Mg/1 Ml Inj IV 2 mg Q5MIN PRN Administration Chest Pain unrelieved by NTG Multi-Ingred Cream/Lotion/Oil/Oint 1 applic 12/16/21 14:10 Mineral Oil/Petrolatum, White Ophth Oint 3.5 Gm OU Q4HR PRN Dry Eye(s) Nitroglycerin 0.4 mg 12/11/21 22:11 Nitroglycerin 0.4 Mg Tab Subl SL Q5M PRN Chest Pain Senna/Docusate Sodium 1 tab 12/16/21 22:00 12/24/21 22:00 Sennosides/Docusate Sodium 8.6/50 Mg Tab FEEDTUBE 1 tab BID KRISTA Administration Simple Syrup 15 ml 12/16/21 11:15 Simple Syrup 15 Ml FEEDTUBE PRN PRN Hypoglycemia Simple Syrup 30 ml 12/16/21 11:15 Simple Syrup 15 Ml FEEDTUBE PRN PRN Hypoglycemia Sodium Bicarbonate 325 mg 12/16/21 11:15 Sodium Bicarbonate 325 Mg Tab FEEDTUBE PRN PRN For Clogged Feeding Tube Sodium Chloride 10 ml 12/11/21 22:11 12/24/21 09:24 Sodium Chloride 0.9% 10 Ml Flush Syringe IV 10 ml PRN PRN Administration LINE FLUSH Nutrition/Malnutrition Assess - Dietary Evaluation Nutrition/Malnutrition Findings: Nutrition Notes Start: 12/12/21 11:57 Freq: Status: Active Protocol: Document 12/24/21 17:36 EVERARDO (Rec: 12/24/21 17:55 EVERARDO [id number]) Nutrition Notes Initial or Follow up Brief Note Current Diagnosis CKD (stage V CKD),Coronary Artery Disease,Sepsis, Hypertension,Heart Failure, Respiratory Failure Other Pertinent Diagnosis Colitis, Bacteremia, ESRD+HD, Septic Shock, Thrombocytopenia , Anemia,... Current Diet TF-Nepro w/CARBSTEADY @ 30 ml/ hr (from L 12/24). Height 4 ft 11 in Weight 61.9 kg [place] Body Weight (kg) 43.18 BMI 27.6 Weight change and time frame No body weight change in 2 days reported. Weight Status Overweight Subjective/Other Information RD consult for TF continuation . TF resumed on L 12/24. Pt continues on Mechanical ventilation, O2 saturation @ 98%, according to MV notes. Percent of energy/protein needs met: Prescribed TF-Nepro w/ CARBSTEADY @ 30 ml/hr provides for energy/protein needs (1, 296 Kcal/58 g) during LOS, 103 % Kcal; 82% AA. #1 Nutrition Diagnosis Inadequate oral intake Diagnosis Progress(for reassessment Continues documentation) Is patient on ventilator? Yes Is Patient Ambulatory and/or Out of Bed No REE-([facility]-confined to bed) [phone] Calculation Used for Recommendations Tyler Gomezcarito Additional Notes Protein: >1.2 g/Kg ABW; >74 g/ day. Fluids: 1-1.5 L/day, or as per MD. Nutrition Intervention Nutrition Support: Continue TF-Nepro w/CARBSTEADY @ 30 ml/hr. Flush: 130 ml water Q 4 hr, or as per MD. Kcal 1,269 Protein (gm) 58 Carbohydrates (gm) 116 Fat (gm) 69 Fluid (mL) 523 Fiber (gm) 9 % RDI: 103% Kcal; 82% AA. Goal #1 Provide at least 75% of energy /protein needs through Enteral Feeding during LOS. Goal #2 Maintain body weight within +/ -3% of admission body weight during LOS. Follow-Up By: 12/31/21 Additional Comments Continue monitoring, Ventilation status, renal function, GI Bleed, TF tolerance and BM.
--- NOTE | 2021-12-18 17:55 | Progress Note ---
Assessment and Plan Cultures: Blood culture group B strep Catheter tip culture: Group B strep Blood culture 12/16/2021 pending A/P: 66-year-old female past medical history hypertension, ESRD on HD now with: #Group B strep bacteremia: Source possibly from dialysis. Catheter since been removed. TTE without evidence of vegetations. #Thrombocytopenia: Positive secondary to sepsis. #ESRD on HD: Renally dose antibiotics Recs: -Continue ceftriaxone 2 g every 24 hours we will plan 2 weeks of antibiotics -Follow-up repeat blood cultures Thank you for the consult, we will continue to follow. Tien Shelby MD [facility] O: [phone] F: [phone] Subjective Date of service: 12/18/21 Principal diagnosis: Septic shock ; Bacteremia; ESRD on dialysis; AMS; NSTEMI; HTN; DM II Interval history: Afebrile, white count 15.3 which is increasing. Remains on the vent. Objective - Exam Narrative Exam: Physical Exam: Constitutional: Alert, cooperative. No acute distress Head, Ears, Nose: Normocephalic, atraumatic. External ears, nose normal Eyes: Conjunctivae/corneas clear. No icterus. No ptosis. Neck: Supple, no meningeal signs Oral: dentition fair, no thrush Cardiovascular: S1, S2 normal. Respiratory: Good air entry, clear to auscultation bilaterally GI: Soft, non-tender; bowel sounds normal. No peritoneal signs. Musculoskeletal: No pedal edema, no cyanosis. Skin: No rash or abscess Hem/Lymphatic: No palpable cervical or supraclavicular nodes. No lymphangitis Psych: Mood ok. Affect normal Neurological: Awake, alert, oriented. No gross abnormality - Constitutional Vitals: Vital Signs Temp Pulse Resp BP Pulse Ox 98.1 F 65 11 L 109/51 98 12/18/21 17:45 12/18/21 17:45 12/18/21 17:45 12/18/21 17:45 12/18/21 17:45 Temperature -Last 24 Hours Temperature 98.1 F Temperature 98.1 F Temperature 98.1 F Temperature 98.8 F Temperature 98.3 F Temperature 98.8 F Temperature 98.3 F - Labs CBC & Chem 7: 12/18/21 05:00 12/18/21 05:00 Labs: Abnormal lab results 12/17/21 12/17/21 12/18/21 Range/Units 18:32 23:19 05:00 WBC 15.3 H (4.5-11.0) K/mm3 RBC 3.25 L (3.65-5.03) M/mm3 Hgb 8.4 L (10.1-14.3) gm/dl Hct 25.7 L (30.3-42.9) % MCH 26 L (28-32) pg RDW 18.2 H (13.2-15.2) % Plt Count 28 L (140-440) K/mm3 Seg Neuts % (Manual) 99.0 H (40.0-70.0) % Lymphocytes % (Manual) 1.0 L (13.4-35.0) % Nucleated RBC % 1.0 H (0.0-0.9) % Seg Neutrophils # Man 15.1 H (1.8-7.7) K/mm3 Lymphocytes # (Manual) 0.2 L (1.2-5.4) K/mm3 Percent Retic 0.37 L (0.78-2.58) % PT 17.4 H (12.2-14.9) Sec. INR 1.27 H (0.87-1.13) Fibrinogen 486 H (211-480) mg/dl ABG pO2 (80.0-90.0) mm Hg ABG HCO3 (20.0-26.0) mmol/L ABG O2 Saturation (95.0-99.0) % ABG Base Excess (-2.0-3.0) mmol/L ABG Hemoglobin (12.0-16.0) gm/dl Oxyhemoglobin (95.0-99.0) % Sodium (137-145) mmol/L Carbon Dioxide (22-30) mmol/L BUN (7-17) mg/dL Creatinine (0.6-1.2) mg/dL Glucose (65-100) mg/dL POC Glucose 313 H (70-105) mg/dL Calcium (8.4-10.2) mg/dL Phosphorus (2.5-4.5) mg/dL Iron (37-170) ug/dL TIBC (250-450) mcg/dL Ferritin (10.0-200.0) ng/mL 12/18/21 12/18/21 12/18/21 Range/Units 05:00 05:00 05:00 WBC (4.5-11.0) K/mm3 RBC (3.65-5.03) M/mm3 Hgb (10.1-14.3) gm/dl Hct (30.3-42.9) % MCH (28-32) pg RDW (13.2-15.2) % Plt Count (140-440) K/mm3 Seg Neuts % (Manual) (40.0-70.0) % Lymphocytes % (Manual) (13.4-35.0) % Nucleated RBC % (0.0-0.9) % Seg Neutrophils # Man (1.8-7.7) K/mm3 Lymphocytes # (Manual) (1.2-5.4) K/mm3 Percent Retic (0.78-2.58) % PT (12.2-14.9) Sec. INR (0.87-1.13) Fibrinogen 481 H (211-480) mg/dl ABG pO2 (80.0-90.0) mm Hg ABG HCO3 (20.0-26.0) mmol/L ABG O2 Saturation (95.0-99.0) % ABG Base Excess (-2.0-3.0) mmol/L ABG Hemoglobin (12.0-16.0) gm/dl Oxyhemoglobin (95.0-99.0) % Sodium 135 L (137-145) mmol/L Carbon Dioxide 20 L (22-30) mmol/L BUN 53 H (7-17) mg/dL Creatinine 5.2 H (0.6-1.2) mg/dL Glucose 307 H (65-100) mg/dL POC Glucose (70-105) mg/dL Calcium 8.0 L (8.4-10.2) mg/dL Phosphorus (2.5-4.5) mg/dL Iron 13 L (37-170) ug/dL TIBC 109 L (250-450) mcg/dL Ferritin 383.4 H (10.0-200.0) ng/mL 12/18/21 12/18/21 12/18/21 Range/Units 09:00 10:56 11:10 WBC (4.5-11.0) K/mm3 RBC (3.65-5.03) M/mm3 Hgb (10.1-14.3) gm/dl Hct (30.3-42.9) % MCH (28-32) pg RDW (13.2-15.2) % Plt Count (140-440) K/mm3 Seg Neuts % (Manual) (40.0-70.0) % Lymphocytes % (Manual) (13.4-35.0) % Nucleated RBC % (0.0-0.9) % Seg Neutrophils # Man (1.8-7.7) K/mm3 Lymphocytes # (Manual) (1.2-5.4) K/mm3 Percent Retic (0.78-2.58) % PT (12.2-14.9) Sec. INR (0.87-1.13) Fibrinogen (211-480) mg/dl ABG pO2 50.2 L 92.7 H (80.0-90.0) mm Hg ABG HCO3 19.8 L (20.0-26.0) mmol/L ABG O2 Saturation 81.7 L (95.0-99.0) % ABG Base Excess -3.6 L -3.8 L (-2.0-3.0) mmol/L ABG Hemoglobin 8.0 L 6.6 L (12.0-16.0) gm/dl Oxyhemoglobin 80.0 L (95.0-99.0) % Sodium (137-145) mmol/L Carbon Dioxide (22-30) mmol/L BUN (7-17) mg/dL Creatinine (0.6-1.2) mg/dL Glucose (65-100) mg/dL POC Glucose 190 H (70-105) mg/dL Calcium (8.4-10.2) mg/dL Phosphorus (2.5-4.5) mg/dL Iron (37-170) ug/dL TIBC (250-450) mcg/dL Ferritin (10.0-200.0) ng/mL 12/18/21 Range/Units 12:00 WBC (4.5-11.0) K/mm3 RBC (3.65-5.03) M/mm3 Hgb (10.1-14.3) gm/dl Hct (30.3-42.9) % MCH (28-32) pg RDW (13.2-15.2) % Plt Count (140-440) K/mm3 Seg Neuts % (Manual) (40.0-70.0) % Lymphocytes % (Manual) (13.4-35.0) % Nucleated RBC % (0.0-0.9) % Seg Neutrophils # Man (1.8-7.7) K/mm3 Lymphocytes # (Manual) (1.2-5.4) K/mm3 Percent Retic (0.78-2.58) % PT (12.2-14.9) Sec. INR (0.87-1.13) Fibrinogen (211-480) mg/dl ABG pO2 (80.0-90.0) mm Hg ABG HCO3 (20.0-26.0) mmol/L ABG O2 Saturation (95.0-99.0) % ABG Base Excess (-2.0-3.0) mmol/L ABG Hemoglobin (12.0-16.0) gm/dl Oxyhemoglobin (95.0-99.0) % Sodium (137-145) mmol/L Carbon Dioxide (22-30) mmol/L BUN (7-17) mg/dL Creatinine (0.6-1.2) mg/dL Glucose (65-100) mg/dL POC Glucose (70-105) mg/dL Calcium (8.4-10.2) mg/dL Phosphorus 2.40 L D (2.5-4.5) mg/dL Iron (37-170) ug/dL TIBC (250-450) mcg/dL Ferritin (10.0-200.0) ng/mL
[2021-12-18] MEDS: cefTRIAXone/NS 2 GM/100 ML 2 GM/100 ML BAG IV SCH (18:03)
[2021-12-18] MEDS: levETIRAcetam 500 MG/5 ML ORAL LIQD FEEDTUBE SCH (18:08)
[2021-12-18 20:10] LABS: ABG Base Excess 1.3 mmol/L (-2.0-3.0); ABG HCO3 26.6 mmol/L (20.0-26.0); ABG Methemoglobin 0.3 % (0.0-1.5); ABG Oxygen Saturation 91.7 % (95.0-99.0); ABG PCO2 45.6 mm Hg; ABG PH 7.383 pH Units (7.350-7.450); ABG PO2 62.5 mm Hg (80.0-90.0)
[2021-12-18] MEDS: PHOS-NAK POWDER PACKET PO SCH (22:39)
[2021-12-18 23:25] LABS: Hematocrit 27.8 % (30.3-42.9); Hemoglobin 8.8 gm/dl (10.1-14.3); Mean Corpuscular HGB Conc 32 % (30-34); Mean Corpuscular Volume 79 fl (79-97); Red Blood Count 3.51 M/mm3 (3.65-5.03); Red Cell Distribution Width 18.1 % (13.2-15.2)
[2021-12-18 23:29] LABS: Platelet Count 34 K/mm3 (140-440)
[2021-12-19] MEDS: INSULIN LISPRO 100 UNIT/ML SUB-Q SCH ×4 (00:44→18:28)
--- NOTE | 2021-12-19 05:22 | XRay Report ---
CHEST 1 VIEW INDICATION / CLINICAL INFORMATION: follow up respiratory failure. COMPARISON: Chest x-ray 12/18/2021 FINDINGS: SUPPORT DEVICES: No significant change in positioning of tubes/lines. No evidence of malposition. HEART / MEDIASTINUM: Stable interval appearance of the cardiomediastinal silhouette. LUNGS / PLEURA: Bilateral lung opacities demonstrate no significant interval change. BONES: No significant osseous abnormality. ADDITIONAL FINDINGS: No significant additional findings. IMPRESSION: 1. No significant change. Signer Name: Branden Ba II, MD Signed: 12/19/2021 5:17 AM Workstation Name: [id number]
[2021-12-19 05:24] LABS: Hemoglobin 8.4 gm/dl (10.1-14.3); Mean Corpuscular HGB Conc 33 % (30-34); Mean Corpuscular Volume 79 fl (79-97); Red Blood Count 3.29 M/mm3 (3.65-5.03); Red Cell Distribution Width 18.2 % (13.2-15.2)
[2021-12-19 05:25] LABS: Platelet Count 34 K/mm3 (140-440)
[2021-12-19 05:43] LABS: Calcium 8.2 mg/dL (8.4-10.2)
[2021-12-19] MEDS: IPRATROPIUM/ALBUTEROL SULFATE 3 ML AMPUL.NEB IH SCH ×3 (08:07→19:59)
[2021-12-19] MEDS: BUDESONIDE 0.5 MG/2 ML NEBU IH SCH ×2 (08:07→19:59)
[2021-12-19] MEDS: MIDODRINE 10 MG TAB FEEDTUBE SCH ×3 (08:59→15:54)
--- NOTE | 2021-12-19 09:40 | Progress Note ---
Assessment and Plan Impression: * ESRD * s/p fall * hypotension * elevated troponin * type 2 DM * history of HTN * GPC bacteremia Plan: * maintain MAP>70, continue pressors prn * tolerated hd 5/5 via AVF * plan for HD TTHSAT if hemodynamically stable, due tomorrow * will attempt UF removal as able given soft but improving BPs * renal diet, fluid restriction * strict i/os and daily lytes * uf as tolerated with hd * note bacteremia- appreciate removal of PermCath. AVF working, no indication for acute intervention, appreciate IR/vascular * antibiotics per ID Subjective Date of service: 12/19/21 Principal diagnosis: Septic shock ; Bacteremia; ESRD on dialysis; AMS; NSTEMI; HTN; DM II Interval history: Remains intubated but more awake. FiO2 30%. On Levophed. Objective - Exam Narrative Exam: Constitutional: ill appearing, intubated, opening eyes today Head: NC/AT Neck: supple Lungs: coarse lung sounds CV: tachycardic Abdomen: soft, non-tender, bowel sounds present Back: nontender Extremities: no edema, pulses WNL Skin: intact Neuro: awake - Vital Signs Vital signs: Vital Signs - 12hr 12/18/21 12/18/21 12/18/21 21:45 22:00 22:10 Temperature Pulse Rate 63 63 63 Pulse Rate [ From Monitor] Respiratory 11 L 8 L 12 Rate Blood Pressure 102/51 99/50 99/50 O2 Sat by Pulse 100 100 100 Oximetry 12/18/21 12/18/21 12/18/21 22:15 22:30 22:46 Temperature Pulse Rate 63 66 65 Pulse Rate [ From Monitor] Respiratory 12 9 L 11 L Rate Blood Pressure 98/55 112/42 103/36 O2 Sat by Pulse 100 100 100 Oximetry 12/18/21 12/18/21 12/18/21 23:00 23:15 23:30 Temperature Pulse Rate 69 64 65 Pulse Rate [ From Monitor] Respiratory 10 L 12 13 Rate Blood Pressure 112/57 117/55 108/48 O2 Sat by Pulse 100 100 100 Oximetry 12/18/21 12/18/21 12/19/21 23:45 23:47 00:00 Temperature 98.2 F Pulse Rate 63 66 63 Pulse Rate [ 60 From Monitor] Respiratory 12 10 L Rate Blood Pressure 105/42 105/42 112/61 O2 Sat by Pulse 100 100 100 Oximetry 12/19/21 12/19/21 12/19/21 00:15 00:30 00:45 Temperature Pulse Rate 63 65 63 Pulse Rate [ From Monitor] Respiratory 12 12 9 L Rate Blood Pressure 107/50 112/59 105/53 O2 Sat by Pulse 100 100 100 Oximetry 12/19/21 12/19/21 12/19/21 01:00 01:15 01:30 Temperature Pulse Rate 63 69 60 Pulse Rate [ From Monitor] Respiratory 12 10 L 12 Rate Blood Pressure 103/56 99/57 102/49 O2 Sat by Pulse 100 100 100 Oximetry 12/19/21 12/19/21 12/19/21 01:45 02:00 02:15 Temperature Pulse Rate 64 63 62 Pulse Rate [ From Monitor] Respiratory 13 12 12 Rate Blood Pressure 107/57 106/49 103/56 O2 Sat by Pulse 100 100 100 Oximetry 12/19/21 12/19/21 12/19/21 02:30 02:45 03:00 Temperature Pulse Rate 62 66 62 Pulse Rate [ From Monitor] Respiratory 12 12 12 Rate Blood Pressure 105/47 108/54 98/42 O2 Sat by Pulse 100 100 100 Oximetry 12/19/21 12/19/21 12/19/21 03:15 03:30 03:45 Temperature Pulse Rate 63 63 62 Pulse Rate [ From Monitor] Respiratory 12 12 13 Rate Blood Pressure 109/49 109/49 109/49 O2 Sat by Pulse 100 100 100 Oximetry 12/19/21 12/19/21 12/19/21 03:53 04:00 04:12 Temperature 97.2 F L 97.1 F L Pulse Rate 62 62 Pulse Rate [ 60 From Monitor] Respiratory 12 Rate Blood Pressure 101/50 108/53 O2 Sat by Pulse 100 100 Oximetry 12/19/21 12/19/21 12/19/21 04:15 04:30 04:45 Temperature Pulse Rate 63 62 58 L Pulse Rate [ From Monitor] Respiratory 12 12 14 Rate Blood Pressure 108/53 107/54 103/49 O2 Sat by Pulse 100 100 100 Oximetry 12/19/21 12/19/21 12/19/21 05:00 05:16 05:30 Temperature Pulse Rate 67 61 60 Pulse Rate [ From Monitor] Respiratory 13 12 12 Rate Blood Pressure 113/59 117/52 115/56 O2 Sat by Pulse 100 100 100 Oximetry 12/19/21 12/19/21 12/19/21 05:46 06:00 06:15 Temperature Pulse Rate 59 L 60 62 Pulse Rate [ From Monitor] Respiratory 14 12 12 Rate Blood Pressure 112/55 110/53 112/59 O2 Sat by Pulse 100 100 100 Oximetry 12/19/21 12/19/21 12/19/21 06:30 06:45 07:00 Temperature Pulse Rate 62 62 60 Pulse Rate [ From Monitor] Respiratory 13 11 L 12 Rate Blood Pressure 127/55 136/58 113/62 O2 Sat by Pulse 100 100 100 Oximetry 12/19/21 12/19/21 12/19/21 07:15 07:30 07:45 Temperature Pulse Rate 61 61 63 Pulse Rate [ From Monitor] Respiratory 12 12 12 Rate Blood Pressure 121/59 120/57 120/57 O2 Sat by Pulse 100 100 100 Oximetry 12/19/21 12/19/21 12/19/21 08:00 08:07 08:15 Temperature 98.9 F Pulse Rate 63 663 H 70 Pulse Rate [ 63 From Monitor] Respiratory 14 13 Rate Blood Pressure 120/73 120/73 120/73 O2 Sat by Pulse 100 100 100 Oximetry 12/19/21 12/19/21 12/19/21 08:23 08:25 08:27 Temperature Pulse Rate 68 65 63 Pulse Rate [ From Monitor] Respiratory 13 14 14 Rate Blood Pressure 129/73 129/73 129/73 O2 Sat by Pulse 100 100 100 Oximetry 12/19/21 12/19/21 12/19/21 08:29 08:30 08:31 Temperature Pulse Rate 63 63 65 Pulse Rate [ From Monitor] Respiratory 11 L 13 12 Rate Blood Pressure 129/73 129/73 129/73 O2 Sat by Pulse 100 100 100 Oximetry 12/19/21 12/19/21 12/19/21 08:33 08:35 08:37 Temperature Pulse Rate 65 66 69 Pulse Rate [ From Monitor] Respiratory 13 16 13 Rate Blood Pressure 129/73 129/73 129/73 O2 Sat by Pulse 100 100 100 Oximetry 12/19/21 12/19/21 12/19/21 08:39 08:41 08:43 Temperature Pulse Rate 72 85 84 Pulse Rate [ From Monitor] Respiratory 14 14 13 Rate Blood Pressure 129/73 129/73 129/73 O2 Sat by Pulse 100 88 97 Oximetry 12/19/21 12/19/21 12/19/21 08:45 08:47 08:49 Temperature Pulse Rate 82 83 76 Pulse Rate [ From Monitor] Respiratory 15 15 15 Rate Blood Pressure 129/73 151/83 151/83 O2 Sat by Pulse 99 96 100 Oximetry 12/19/21 12/19/21 12/19/21 08:51 08:53 08:55 Temperature Pulse Rate 74 77 81 Pulse Rate [ From Monitor] Respiratory 13 11 L 13 Rate Blood Pressure 151/83 151/83 151/83 O2 Sat by Pulse 100 100 100 Oximetry 12/19/21 12/19/21 12/19/21 08:57 08:59 09:01 Temperature Pulse Rate 82 73 70 Pulse Rate [ From Monitor] Respiratory 16 17 11 L Rate Blood Pressure 151/83 151/83 120/33 O2 Sat by Pulse 93 99 100 Oximetry 12/19/21 12/19/21 12/19/21 09:03 09:05 09:07 Temperature Pulse Rate 70 71 69 Pulse Rate [ From Monitor] Respiratory 9 L 10 L 11 L Rate Blood Pressure 120/33 120/33 120/33 O2 Sat by Pulse 92 94 99 Oximetry 12/19/21 12/19/21 12/19/21 09:09 09:11 09:13 Temperature Pulse Rate 70 69 67 Pulse Rate [ From Monitor] Respiratory 12 12 12 Rate Blood Pressure 120/33 120/33 120/33 O2 Sat by Pulse 99 99 98 Oximetry 12/19/21 12/19/21 09:15 09:17 Temperature Pulse Rate 67 65 Pulse Rate [ From Monitor] Respiratory 12 12 Rate Blood Pressure 120/60 120/60 O2 Sat by Pulse 100 100 Oximetry - Lab 12/19/21 05:00 12/19/21 05:00 Most recent lab results ABG pH 7.383 pH Units (7.350-7.450) 12/18/21 20:00 ABG pCO2 45.6 mm Hg 12/18/21 20:00 ABG pO2 62.5 mm Hg (80.0-90.0) L 12/18/21 20:00 ABG HCO3 26.6 mmol/L (20.0-26.0) H 12/18/21 20:00 ABG O2 Saturation 91.7 % (95.0-99.0) L 12/18/21 20:00 Calcium 8.2 mg/dL (8.4-10.2) L 12/19/21 05:00 Phosphorus 2.40 mg/dL (2.5-4.5) L D 12/18/21 12:00 Magnesium 2.10 mg/dL (1.7-2.3) 12/18/21 12:00 Medications & Allergies - Medications Allergies/Adverse Reactions: Allergies No Known Allergies Allergy (Verified 12/11/21 22:19) Home Medications: Home Medications Medication Instructions Recorded Confirmed Last Taken Type Albuterol Sulfate [Proair 2 puff IH Q6HR PRN 11/23/21 12/14/21 Unknown History Digihaler] Calcium Acetate 2 tab PO TID 11/23/21 12/14/21 Unknown History Fluticasone/Umeclidin/Vilanter 1 each IH DAILY 11/23/21 12/14/21 Unknown History [Trelegy Ellipta 100-62.5-25] Furosemide [Lasix TAB] 40 mg PO QDAY 11/23/21 12/14/21 Unknown History Insulin Aspart (Nf) [NovoLOG 55 unit SQ TID 11/23/21 12/14/21 Unknown History Flexpen] Insulin Glargine [Lantus VIAL] 25 units SQ QHS 11/23/21 12/14/21 Unknown History Omeprazole 20 mg PO DAILY 11/23/21 12/14/21 Unknown History Spironolactone [Aldactone] 100 mg PO QDAY 11/23/21 12/14/21 Unknown History lisinopriL [Lisinopril] 20 mg PO BID 11/23/21 12/14/21 12/06/21 History 500 MG Docusate Sodium [Colace CAP] 100 mg PO BID PRN #60 capsule 11/24/21 12/14/21 Unknown Rx Aspirin EC [Halfprin EC] 81 mg PO DAILY 90 Days #90 tablet 11/26/21 12/14/21 Unknown Rx Aspirin [Adult Aspirin] 81 mg PO DAILY 90 Days #90 tab 11/26/21 12/14/21 Unknown Rx ISOSORBIDE MONOnitrate [Imdur ER] 60 mg PO QDAY 90 Days #90 tab 11/26/21 12/14/21 Unknown Rx Sevelamer Carbonate [Renvela] 800 mg PO TIDWM 90 Days #270 tab 11/26/21 12/14/21 Unknown Rx amLODIPine 10 mg PO DAILY 90 Days #90 tab 11/26/21 12/14/21 Unknown Rx carvediloL [Coreg] 25 mg PO BID 90 Days #180 tab 11/26/21 12/14/21 Unknown Rx Atorvastatin Calcium [Lipitor] 80 mg PO QHS 90 Days #90 tab 11/27/21 12/14/21 Unknown Rx levETIRAcetam [Keppra TAB] 500 mg PO 3XW 12/14/21 12/14/21 12/06/21 History 500 MG Active Medications: Generic Name Dose Route Start Last Admin Trade Name Freq PRN Reason Stop Dose Admin Acetaminophen 650 mg 12/13/21 23:00 12/13/21 23:18 Acetaminophen 650 Mg Rect Supp [place] 650 mg Q4H PRN Administration Pain, Mild (1-3) Albuterol 2.5 mg 12/11/21 22:14 Albuterol 2.5 Mg/3 Ml Nebu IH Q6HR PRN Wheezing Albuterol/Ipratropium 1 ampul 12/14/21 08:00 12/19/21 08:07 Ipratropium/Albuterol Sulfate 3 Ml Ampul.Neb IH 1 ampul TIDRT KRISTA Administration Lipase/Protease/Amylase 1 each 12/16/21 11:15 Lipase 10,500/Protease 25,000/Amylase 43,750 (Units) Dr Blanco FEEDTUBE PRN PRN For Clogged Feeding Tube Aspirin 81 mg 12/15/21 10:00 12/18/21 09:21 Aspirin 81 Mg Tab Chew FEEDTUBE 81 mg QDAY KRISTA Administration Atorvastatin Calcium 80 mg 12/15/21 22:00 12/18/21 22:39 Atorvastatin 40 Mg Tab FEEDTUBE 80 mg QHS KRISTA Administration Budesonide 0.5 mg 12/13/21 08:00 12/19/21 08:07 Budesonide 0.5 Mg/2 Ml Nebu IH 0.5 mg Q12HRT KRISTA Administration Dextrose 50 ml 12/11/21 22:23 12/16/21 06:24 Dextrose 50% In Water (25gm) 50 Ml Syringe IV 15 ml Q30MIN PRN Administration Hypoglycemia Protocol Famotidine 10 mg 12/15/21 22:00 12/18/21 22:39 Famotidine 10 Mg Tab FEEDTUBE 10 mg BID KRISTA Administration Fentanyl 50 mcg 12/15/21 17:19 12/15/21 17:58 Fentanyl 100 Mcg/2 Ml Inj IV 50 mcg Q10MIN PRN Administration ANALGESIA Hydrophilic Ointment 1 applic 12/16/21 14:30 Lip Therapy Vaseline TP Q2HR PRN Dry Lips Sodium Chloride 100 mls @ 999 mls/hr 12/12/21 12:00 Nacl 0.9% IV ABEL PRN Hypotension NORepinephrine/NS 8 MG-250 ML 8 mg in 250 mls @ 3.75 mls/hr 12/14/21 23:00 12/18/21 19:02 Norepinephrine/Ns 8 Mg-250 Ml (Double Conc) IV 0 mcg/min TITRATE KRISTA 0 mls/hr Titration Protocol 2 MCG/MIN Fentanyl Citrate 2,000 mcg in 100 mls @ 2.945 mls/hr 12/15/21 18:00 12/19/21 08:58 Fentanyl Drip Premix IV 2 mcg/kg/hr TITR KRISTA 5.89 mls/hr Titration Protocol 1 MCG/KG/HR Vasopressin 20 unit/ Sodium 101 mls @ 9.09 mls/hr 12/16/21 10:00 12/17/21 18:27 Chloride IV 0 units/min TITR KRISTA 0 mls/hr Titration Protocol 0.03 UNITS/MIN Ceftriaxone Sodium 2 gm in 100 mls @ 200 mls/hr 12/16/21 15:00 12/18/21 18:03 Rocephin/Ns 2 Gm/100 Ml IV 12/29/21 15:29 200 mls/hr Q24H KRISTA Administration Protocol Ferric Sodium Gluconate 110 mls @ 100 mls/hr 12/18/21 11:00 12/18/21 11:26 Complex 125 mg/ Sodium IV 12/21/21 23:59 100 mls/hr Chloride DAILY KRISTA Administration Insulin Human Lispro 0 unit 12/15/21 12:00 12/19/21 05:46 Insulin Lispro 100 Unit/Ml SUB-Q Not Given Q6HR KRISTA Protocol Levetiracetam 500 mg 12/16/21 18:00 12/18/21 18:08 Levetiracetam 500 Mg/5 Ml Oral Liqd FEEDTUBE 500 mg TuThSa KRISTA Administration Methylprednisolone Sodium Succinate 60 mg 12/18/21 22:00 12/18/21 22:37 Methylprednisolone Sod Succinate 125 Mg/2 Ml Inj IV 12/21/21 21:59 60 mg Q12HR KRISTA Administration Metoclopramide HCl 5 mg 12/19/21 09:00 Metoclopramide 10 Mg/2 Ml Inj IV 12/21/21 08:59 Q6H KRISTA Midodrine 10 mg 12/15/21 12:00 12/19/21 08:59 Midodrine 10 Mg Tab FEEDTUBE Not Given TID@0800,1200,1600 KRISTA Morphine Sulfate 2 mg 12/11/21 22:11 Morphine 4 Mg/1 Ml Inj IV Q5MIN PRN Chest Pain unrelieved by NTG Multi-Ingred Cream/Lotion/Oil/Oint 1 applic 12/16/21 14:10 Mineral Oil/Petrolatum, White Ophth Oint 3.5 Gm OU Q4HR PRN Dry Eye(s) Nitroglycerin 0.4 mg 12/11/21 22:11 Nitroglycerin 0.4 Mg Tab Subl SL Q5M PRN Chest Pain Potassium Phos/Sodium Phos 1 each 12/18/21 22:00 12/18/21 22:39 Phos-Nak Powder Packet PO 12/19/21 21:59 1 each Q12HR KRISTA Administration Senna/Docusate Sodium 1 tab 12/16/21 22:00 12/18/21 22:39 Sennosides/Docusate Sodium 8.6/50 Mg Tab FEEDTUBE 1 tab BID KRISTA Administration Simple Syrup 15 ml 12/16/21 11:15 Simple Syrup 15 Ml FEEDTUBE PRN PRN Hypoglycemia Simple Syrup 30 ml 12/16/21 11:15 Simple Syrup 15 Ml FEEDTUBE PRN PRN Hypoglycemia Sodium Bicarbonate 325 mg 12/16/21 11:15 Sodium Bicarbonate 325 Mg Tab FEEDTUBE PRN PRN For Clogged Feeding Tube Sodium Chloride 10 ml 12/11/21 22:11 12/18/21 09:21 Sodium Chloride 0.9% 10 Ml Flush Syringe IV 10 ml PRN PRN Administration LINE FLUSH
[2021-12-19] MEDS: METOCLOPRAMIDE 10 MG/2 ML INJ IV SCH ×3 (09:51→21:27)
[2021-12-19] MEDS: SENNOSIDES/DOCUSATE SODIUM 8.6/50 MG TAB FEEDTUBE SCH ×2 (09:51→21:27)
[2021-12-19] MEDS: methylPREDNISolone Sod Succinate 125 MG/2 ML INJ IV SCH ×2 (09:51→21:28)
[2021-12-19] MEDS: PHOS-NAK POWDER PACKET PO SCH (09:51)
[2021-12-19] MEDS: FAMOTIDINE 10 MG TAB FEEDTUBE SCH ×2 (09:52→21:27)
[2021-12-19] MEDS: SODIUM FERRIC GLUCON/SUCRO 125 MG in SODIUM CHLORIDE 0.9% 100 ML IV SCH (09:52)
[2021-12-19] MEDS: ASPIRIN 81 MG TAB CHEW FEEDTUBE SCH (09:52)
--- NOTE | 2021-12-19 10:12 | Hem/Onc Progress Note ---
Subjective Date of service: 12/19/21 Interval history: Heme progress note Televisit via [facility] CPT 99983 Dx Thrombocytopenia 66yo female s/p fall which occurred 2 days prior to arrival. 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 found to have elevated troponin, elevated BUN/creatinine at 9.2/76, CXR showed pulmonary edema CT head/C-spine/pelvis showed no acute fracture or dislocation and x-ray L- spine/right tib-fib/fib/right femur/right hip and pelvis showed no acute fracture or dislocation. Patient decompensated 12/15, requiring intubation. Sepsis secondary to beta- hemolytic strep group B. Platelets noted decreasing. Hematology following for thrombocytopenia. Patient intubated and sedated. No bleeding noted or reported. 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 (12.2-14.9) H 12/17/21 18:32 INR 1.27 (0.87-1.13) H 12/17/21 18:32 Fibrinogen 481 mg/dl (211-480) H 12/18/21 05:00 Creatinine 3.1 mg/dL (0.6-1.2) H 12/19/21 05:00 Iron 13 ug/dL (37-170) L 12/18/21 05:00 TIBC 109 mcg/dL (250-450) L 12/18/21 05:00 Ferritin 383.4 ng/mL (10.0-200.0) H 12/18/21 05:00 Total Bilirubin 0.60 mg/dL (0.1-1.2) 12/11/21 15:40 AST 22 units/L (5-40) 12/11/21 15:40 ALT 13 units/L (7-56) 12/11/21 15:40 Alkaline Phosphatase 237 units/L (35-129) H 12/11/21 15:40 Blood Type O POSITIVE 12/17/21 09:30 Antibody Screen Negative 12/17/21 09:30 Objective - Constitutional Vitals: Last Vital Signs Temp 98.9 F 12/19/21 08:00 Pulse 72 12/19/21 09:20 Resp 8 L 12/19/21 09:20 BP 120/60 12/19/21 09:17 Pulse Ox 100 12/19/21 09:20 - Labs Lab Results: Laboratory Results - last 24 hr 12/18/21 12/18/21 12/18/21 09:00 10:56 11:10 WBC RBC Hgb Hct MCV MCH MCHC RDW Plt Count Seg Neutrophils % ABG pH 7.407 7.443 ABG pCO2 33.4 29.7 ABG pO2 50.2 L 92.7 H ABG HCO3 20.6 19.8 L ABG O2 Saturation 81.7 L 97.5 ABG O2 Content 9.1 9.1 ABG Base Excess -3.6 L -3.8 L ABG Hemoglobin 8.0 L 6.6 L ABG Carboxyhemoglobin 1.5 1.3 ABG Methemoglobin 0.6 0.4 Oxyhemoglobin 80.0 L 95.8 FiO2 30 21 Sodium Potassium Chloride Carbon Dioxide Anion Gap BUN Creatinine Estimated GFR BUN/Creatinine Ratio Glucose POC Glucose 190 H Calcium Phosphorus Magnesium 12/18/21 12/18/21 12/18/21 12:00 18:06 20:00 WBC RBC Hgb Hct MCV MCH MCHC RDW Plt Count Seg Neutrophils % ABG pH 7.383 ABG pCO2 45.6 ABG pO2 62.5 L ABG HCO3 26.6 H ABG O2 Saturation 91.7 L ABG O2 Content 10.7 ABG Base Excess 1.3 ABG Hemoglobin 8.4 L ABG Carboxyhemoglobin 1.7 ABG Methemoglobin 0.3 Oxyhemoglobin 89.9 L FiO2 30 Sodium Potassium Chloride Carbon Dioxide Anion Gap BUN Creatinine Estimated GFR BUN/Creatinine Ratio Glucose POC Glucose 156 H Calcium Phosphorus 2.40 L D Magnesium 2.10 12/18/21 12/18/21 12/19/21 23:05 23:54 05:00 WBC 19.2 H 18.9 H RBC 3.51 L 3.29 L Hgb 8.8 L 8.4 L Hct 27.8 L 26.0 L MCV 79 79 MCH 25 L 26 L MCHC 32 33 RDW 18.1 H 18.2 H Plt Count 34 L 34 L Seg Neutrophils % Label Folder ABG pH ABG pCO2 ABG pO2 ABG HCO3 ABG O2 Saturation ABG O2 Content ABG Base Excess ABG Hemoglobin ABG Carboxyhemoglobin ABG Methemoglobin Oxyhemoglobin FiO2 Sodium Potassium Chloride Carbon Dioxide Anion Gap BUN Creatinine Estimated GFR BUN/Creatinine Ratio Glucose POC Glucose 122 H Calcium Phosphorus Magnesium 12/19/21 12/19/21 05:00 05:29 WBC RBC Hgb Hct MCV MCH MCHC RDW Plt Count Seg Neutrophils % ABG pH ABG pCO2 ABG pO2 ABG HCO3 ABG O2 Saturation ABG O2 Content ABG Base Excess ABG Hemoglobin ABG Carboxyhemoglobin ABG Methemoglobin Oxyhemoglobin FiO2 Sodium 137 Potassium 3.9 Chloride 98.8 Carbon Dioxide 26 Anion Gap 16 BUN 30 H Creatinine 3.1 H Estimated GFR 18 BUN/Creatinine Ratio 10 Glucose 155 H POC Glucose 153 H Calcium 8.2 L Phosphorus Magnesium Medications & Allergies - Medications Allergies/Adverse Reactions: Allergies No Known Allergies Allergy (Verified 12/11/21 22:19) Home Medications: Home Medications Medication Instructions Recorded Confirmed Last Taken Type Albuterol Sulfate [Proair 2 puff IH Q6HR PRN 11/23/21 12/14/21 Unknown History Digihaler] Calcium Acetate 2 tab PO TID 11/23/21 12/14/21 Unknown History Fluticasone/Umeclidin/Vilanter 1 each IH DAILY 11/23/21 12/14/21 Unknown History [Trelegy Ellipta 100-62.5-25] Furosemide [Lasix TAB] 40 mg PO QDAY 11/23/21 12/14/21 Unknown History Insulin Aspart (Nf) [NovoLOG 55 unit SQ TID 11/23/21 12/14/21 Unknown History Flexpen] Insulin Glargine [Lantus VIAL] 25 units SQ QHS 11/23/21 12/14/21 Unknown History Omeprazole 20 mg PO DAILY 11/23/21 12/14/21 Unknown History Spironolactone [Aldactone] 100 mg PO QDAY 11/23/21 12/14/21 Unknown History lisinopriL [Lisinopril] 20 mg PO BID 11/23/21 12/14/21 12/06/21 History 500 MG Docusate Sodium [Colace CAP] 100 mg PO BID PRN #60 capsule 11/24/21 12/14/21 Unk nown Rx Aspirin EC [Halfprin EC] 81 mg PO DAILY 90 Days #90 tablet 11/26/21 12/14/21 Unknown Rx Aspirin [Adult Aspirin] 81 mg PO DAILY 90 Days #90 tab 11/26/21 12/14/21 Unknown Rx ISOSORBIDE MONOnitrate [Imdur ER] 60 mg PO QDAY 90 Days #90 tab 11/26/21 12/14/21 Unknown Rx Sevelamer Carbonate [Renvela] 800 mg PO TIDWM 90 Days #270 tab 11/26/21 12/14/21 Unknown Rx amLODIPine 10 mg PO DAILY 90 Days #90 tab 11/26/21 12/14/21 Unknown Rx carvediloL [Coreg] 25 mg PO BID 90 Days #180 tab 11/26/21 12/14/21 Unknown Rx Atorvastatin Calcium [Lipitor] 80 mg PO QHS 90 Days #90 tab 11/27/21 12/14/21 Unknown Rx levETIRAcetam [Keppra TAB] 500 mg PO 3XW 12/14/21 12/14/21 12/06/21 History 500 MG Active Medications: Generic Name Dose Route Start Last Admin Trade Name Freq PRN Reason Stop Dose Admin Acetaminophen 650 mg 12/13/21 23:00 12/13/21 23:18 Acetaminophen 650 Mg Rect Supp [place] 650 mg Q4H PRN Administration Pain, Mild (1-3) Albuterol 2.5 mg 12/11/21 22:14 Albuterol 2.5 Mg/3 Ml Nebu IH Q6HR PRN Wheezing Albuterol/Ipratropium 1 ampul 12/14/21 08:00 12/19/21 08:07 Ipratropium/Albuterol Sulfate 3 Ml Ampul.Neb IH 1 ampul TIDRT KRISTA Administration Lipase/Protease/Amylase 1 each 12/16/21 11:15 Lipase 10,500/Protease 25,000/Amylase 43,750 (Units) Dr Cap FEEDTUBE PRN PRN For Clogged Feeding Tube Aspirin 81 mg 12/15/21 10:00 12/19/21 09:52 Aspirin 81 Mg Tab Chew FEEDTUBE 81 mg QDAY KRISTA Administration Atorvastatin Calcium 80 mg 12/15/21 22:00 12/18/21 22:39 Atorvastatin 40 Mg Tab FEEDTUBE 80 mg QHS KRISTA Administration Budesonide 0.5 mg 12/13/21 08:00 12/19/21 08:07 Budesonide 0.5 Mg/2 Ml Nebu IH 0.5 mg Q12HRT KRISTA Administration Dextrose 50 ml 12/11/21 22:23 12/16/21 06:24 Dextrose 50% In Water (25gm) 50 Ml Syringe IV 15 ml Q30MIN PRN Administration Hypoglycemia Protocol Famotidine 10 mg 12/15/21 22:00 12/19/21 09:52 Famotidine 10 Mg Tab FEEDTUBE 10 mg BID KRISTA Administration Fentanyl 50 mcg 12/15/21 17:19 12/15/21 17:58 Fentanyl 100 Mcg/2 Ml Inj IV 50 mcg Q10MIN PRN Administration ANALGESIA Hydrophilic Ointment 1 applic 12/16/21 14:30 Lip Therapy Vaseline TP Q2HR PRN Dry Lips Sodium Chloride 100 mls @ 999 mls/hr 12/12/21 12:00 Nacl 0.9% IV ABEL PRN Hypotension NORepinephrine/NS 8 MG-250 ML 8 mg in 250 mls @ 3.75 mls/hr 12/14/21 23:00 12/18/21 19:02 Norepinephrine/Ns 8 Mg-250 Ml (Double Conc) IV 0 mcg/min TITRATE KRISTA 0 mls/hr Titration Protocol 2 MCG/MIN Fentanyl Citrate 2,000 mcg in 100 mls @ 2.945 mls/hr 12/15/21 18:00 12/19/21 08:58 Fentanyl Drip Premix IV 2 mcg/kg/hr TITR KRISTA 5.89 mls/hr Titration Protocol 1 MCG/KG/HR Vasopressin 20 unit/ Sodium 101 mls @ 9.09 mls/hr 12/16/21 10:00 12/17/21 18:27 Chloride IV 0 units/min TITR KRISTA 0 mls/hr Titration Protocol 0.03 UNITS/MIN Ceftriaxone Sodium 2 gm in 100 mls @ 200 mls/hr 12/16/21 15:00 12/18/21 18:03 Rocephin/Ns 2 Gm/100 Ml IV 12/29/21 15:29 200 mls/hr Q24H KRISTA Administration Protocol Ferric Sodium Gluconate 110 mls @ 100 mls/hr 12/18/21 11:00 12/19/21 09:52 Complex 125 mg/ Sodium IV 12/21/21 23:59 100 mls/hr Chloride DAILY KRISTA Administration Insulin Human Lispro 0 unit 12/15/21 12:00 12/19/21 05:46 Insulin Lispro 100 Unit/Ml SUB-Q Not Given Q6HR [facility] Protocol Levetiracetam 500 mg 12/16/21 18:00 12/18/21 18:08 Levetiracetam 500 Mg/5 Ml Oral Liqd FEEDTUBE 500 mg TuThSa KRISTA Administration Methylprednisolone Sodium Succinate 60 mg 12/18/21 22:00 12/19/21 09:51 Methylprednisolone Sod Succinate 125 Mg/2 Ml Inj IV 12/21/21 21:59 60 mg Q12HR KRISTA Administration Metoclopramide HCl 5 mg 12/19/21 10:00 12/19/21 09:51 Metoclopramide 10 Mg/2 Ml Inj IV 12/21/21 09:59 5 mg Q6H KRISTA Administration Midodrine 10 mg 12/15/21 12:00 12/19/21 08:59 Midodrine 10 Mg Tab FEEDTUBE Not Given TID@0800,1200,1600 [facility] Morphine Sulfate 2 mg 12/11/21 22:11 Morphine 4 Mg/1 Ml Inj IV Q5MIN PRN Chest Pain unrelieved by NTG Multi-Ingred Cream/Lotion/Oil/Oint 1 applic 12/16/21 14:10 Mineral Oil/Petrolatum, White Ophth Oint 3.5 Gm OU Q4HR PRN Dry Eye(s) Nitroglycerin 0.4 mg 12/11/21 22:11 Nitroglycerin 0.4 Mg Tab Subl SL Q5M PRN Chest Pain Potassium Phos/Sodium Phos 1 each 12/18/21 22:00 12/19/21 09:51 Phos-Nak Powder Packet PO 12/19/21 21:59 1 each Q12HR KRISTA Administration Senna/Docusate Sodium 1 tab 12/16/21 22:00 12/19/21 09:51 Sennosides/Docusate Sodium 8.6/50 Mg Tab FEEDTUBE 1 tab BID KRISTA Administration Simple Syrup 15 ml 12/16/21 11:15 Simple Syrup 15 Ml FEEDTUBE PRN PRN Hypoglycemia Simple Syrup 30 ml 12/16/21 11:15 Simple Syrup 15 Ml FEEDTUBE PRN PRN Hypoglycemia Sodium Bicarbonate 325 mg 12/16/21 11:15 Sodium Bicarbonate 325 Mg Tab FEEDTUBE PRN PRN For Clogged Feeding Tube Sodium Chloride 10 ml 12/11/21 22:11 12/19/21 09:51 Sodium Chloride 0.9% 10 Ml Flush Syringe IV 10 ml PRN PRN Administration LINE FLUSH
--- NOTE | 2021-12-19 10:30 | Progress Note ---
Assessment and Plan - Patient Problems (1) Syncope Current Visit: Yes Status: Acute Plan to address problem: Patient admitted with episode of transient dizziness causing a fall which resulted in right hip pain. She has end-stage renal disease on hemodialysis, had missed at least 1 dialysis session prior to admission. Recently relocated here from [place]. Echocardiogram done in this hospital on a prior admission 2 weeks ago showed a moderate severity cardiomyopathy, ejection fraction 35 to 40%. The etiology of her cardiomyopathy is not known at this time, we do not have her records from [place] for review. Hospital course is now complicated by development of sepsis, with four positive blood cultures. Suspected source is the indwelling Vas-Cath. Transthoracic echo shows no evidence of valvular vegetation. Subjective Date of service: 12/19/21 Principal diagnosis: Septic shock ; Bacteremia; ESRD on dialysis; AMS; NSTEMI; HTN; DM II Interval history: Patient is sedated, on the vent. On ekg monitor tech has a sinus rhythm at 65. Objective Vital Signs Temp Pulse Pulse Pulse Resp Resp BP 12/19/21 09:20 72 8 L 12/19/21 09:17 65 12 120/60 12/19/21 09:15 67 12 120/60 12/19/21 09:13 67 12 120/33 12/19/21 09:11 69 12 120/33 12/19/21 09:09 70 12 120/33 12/19/21 09:07 69 11 L 120/33 12/19/21 09:05 71 10 L 120/33 12/19/21 09:03 70 9 L 120/33 12/19/21 09:01 70 11 L 120/33 12/19/21 08:59 73 17 151/83 12/19/21 08:57 82 16 151/83 12/19/21 08:55 81 13 151/83 12/19/21 08:53 77 11 L 151/83 12/19/21 08:51 74 13 151/83 12/19/21 08:49 76 15 151/83 12/19/21 08:47 83 15 151/83 12/19/21 08:45 82 15 129/73 12/19/21 08:43 84 13 129/73 12/19/21 08:41 85 14 129/73 12/19/21 08:39 72 14 129/73 05/06/22 08:37 69 13 129/73 05/06/22 08:35 66 16 129/73 05/06/22 08:33 65 13 129/73 05/0622 08:31 65 12 129/73 05/06/22 08:30 63 13 129/73 05/06/22 08:29 63 11 L 129/73 05/06/ 08:27 63 14 129/73 05/06/22 08:25 65 14 129/73 05/0622 08:23 68 13 129/73 05/06 08:15 70 13 120/73 05/06 08:07 663 H 120/73 05/06 08:06 63 13 05 08:00 98.9 F 63 63 14 120/73 05/06 07:45 63 12 120/57 05/06 07:30 61 12 120/57 05/06 07:15 61 12 121/59 05/06 07:00 60 12 113/62 0506 06:45 62 11 L 136/58 05/0622 06:30 62 13 127/55 05/0622 06:15 62 12 112/59 05/0622 06:00 60 12 110/53 05/06 05:46 59 L 14 112/55 05/06 05:30 60 12 115/56 05/06 05:16 61 12 117/52 05/06 05:00 67 13 113/59 05/06 04:45 58 L 14 103/49 05/06 04:30 62 12 107/54 0506 04:15 63 12 108/53 05/0622 04:12 62 108/53 05/0622 04:00 97.1 F L 62 60 12 101/50 05/0622 03:53 97.2 F L 05/06/22 03:45 62 13 109/49 05/06/22 03:30 63 12 109/49 05/06/22 03:15 63 12 109/49 05/0622 03:00 62 12 98/42 05/0622 02:45 66 12 108/54 05/0622 02:30 62 12 105/47 05/0622 02:15 62 12 103/56 05/0622 02:00 63 12 106/49 12/19/21 01:45 64 13 107/57 12/19/21 01:30 60 12 102/49 12/19/21 01:15 69 10 L 99/57 12/19/21 01:00 63 12 103/56 12/19/21 00:45 63 9 L 105/53 12/19/21 00:30 65 12 112/59 12/19/21 00:15 63 12 107/50 12/19/21 00:00 98.2 F 63 60 10 L 112/61 12/18/21 23:47 66 105/42 12/18/21 23:45 63 12 105/42 12/18/21 23:30 65 13 108/48 12/18/21 23:15 64 12 117/55 12/18/21 23:00 69 10 L 112/57 12/18/21 22:46 65 11 L 103/36 12/18/21 22:30 66 9 L 112/42 12/18/21 22:15 63 12 98/55 12/18/21 22:10 63 12 99/50 12/18/21 22:00 63 8 L 99/50 12/18/21 21:45 63 11 L 102/51 12/18/21 21:30 62 12 98/44 12/18/21 21:15 64 12 98/44 12/18/21 21:00 63 12 104/42 12/18/21 20:45 63 10 L 104/42 12/18/21 20:36 63 15 12/18/21 20:30 64 7 L 99/45 12/18/21 20:15 64 7 L 99/39 12/18/21 20:09 65 99/39 12/18/21 20:00 64 12 101/37 12/18/21 19:45 97.5 F L 68 11 L 111/51 12/18/21 19:30 66 10 L 107/44 12/18/21 19:15 66 8 L 112/57 12/18/21 19:00 66 6 L 108/49 12/18/21 18:45 64 8 L 108/57 12/18/21 18:30 64 12 97/48 12/18/21 18:15 66 9 L 92/39 12/18/21 18:00 64 8 L 94/44 05/05/22 17:45 98.1 F 64 11 L 109/51 05 17:30 66 12 108/51 05 17:15 73 15 103/53 12/18/21 17:00 68 11 L 94/54 12/18/21 16:45 61 8 L 94/54 12/18/21 16:30 62 8 L 96/59 12/18/21 16:15 66 9 L 102/58 12/18/21 16:00 65 71 13 103/53 12/18/21 15:45 63 8 L 103/53 12/18/21 15:30 63 9 L 113/50 12/18/21 15:15 69 12 115/58 12/18/21 15:00 62 9 L 104/61 12/18/21 14:52 75 17 12/18/21 14:45 65 9 L 102/60 12/18/21 14:30 64 8 L 100/59 12/18/21 14:15 63 16 100/58 12/18/21 14:00 62 16 102/55 12/18/21 13:45 61 16 105/54 12/18/21 13:30 98.1 F 61 16 102/54 12/18/21 13:15 59 L 17 103/48 12/18/21 13:00 63 16 96/51 12/18/21 12:45 62 18 95/53 12/18/21 12:30 63 17 98/53 12/18/21 12:15 63 21 96/50 12/18/21 12:03 62 99/49 12/18/21 12:00 62 61 18 99/49 12/18/21 11:45 61 16 94/52 12/18/21 11:30 63 20 92/52 12/18/21 11:15 98.1 F 60 20 94/41 12/18/21 11:00 62 16 92/50 0505 10:45 62 18 92/50 12/18/21 10:30 63 21 93/49 Pulse Ox Pulse Ox 12/19/21 09:20 100 12/19/21 09:17 100 12/19/21 09:15 100 12/19/21 09:13 98 12/19/21 09:11 99 12/19/21 09:09 99 12/19/21 09:07 99 12/19/21 09:05 94 12/19/21 09:03 92 12/19/21 09:01 100 12/19/21 08:59 99 12/19/21 08:57 93 12/19/21 08:55 100 12/19/21 08:53 100 12/19/21 08:51 100 12/19/21 08:49 100 12/19/21 08:47 96 12/19/21 08:45 99 12/19/21 08:43 97 12/19/21 08:41 88 12/19/21 08:39 100 12/19/21 08:37 100 12/19/21 08:35 100 12/19/21 08:33 100 12/19/21 08:31 100 12/19/21 08:30 100 12/19/21 08:29 100 12/19/21 08:27 100 12/19/21 08:25 100 12/19/21 08:23 100 12/19/21 08:15 100 12/19/21 08:07 100 12/19/21 08:06 12/19/21 08:00 100 12/19/21 07:45 100 12/19/21 07:30 100 12/19/21 07:15 100 12/19/21 07:00 100 12/19/21 06:45 100 12/19/21 06:30 100 12/19/21 06:15 100 12/19/21 06:00 100 12/19/21 05:46 100 12/19/21 05:30 100 12/19/21 05:16 100 12/19/21 05:00 100 12/19/21 04:45 100 12/19/21 04:30 100 12/19/21 04:15 100 12/19/21 04:12 100 12/19/21 04:00 100 12/19/21 03:53 05 03:45 100 12/19/21 03:30 100 12/19/21 03:15 100 12/19/21 03:00 100 12/19/21 02:45 100 12/19/21 02:30 100 05 02:15 100 05 02:00 100 12/19/21 01:45 100 12/19/21 01:30 100 05/0622 01:15 100 05/0622 01:00 100 05/0622 00:45 100 05/0622 00:30 100 05/0622 00:15 100 05/06 00:00 100 05/0522 23:47 100 05/0522 23:45 100 05/05/22 23:30 100 05/05/22 23:15 100 05/05/22 23:00 100 05/05/22 22:46 100 05/05/22 22:30 100 05/05/22 22:15 100 05/05/22 22:10 100 05/05/22 22:00 100 05/05/22 21:45 100 05/05/22 21:30 100 05/05/22 21:15 100 05/0522 21:00 100 05/05/22 20:45 100 05/05/22 20:36 05/05/22 20:30 100 05/05/22 20:15 100 05/05/22 20:09 100 05/0522 20:00 97 05/05/22 19:45 100 05/05/22 19:30 100 05/05/22 19:15 100 05/05/22 19:00 100 05/05/22 18:45 100 05/05/22 18:30 100 05/05/22 18:15 100 05/05/22 18:00 100 05/0522 17:45 95 98 05/05/22 17:30 99 05/05/22 17:15 92 05/05/22 17:00 100 05/0522 16:45 99 05/05/22 16:30 100 05/05/22 16:15 100 05/05/22 16:00 100 05/05/22 15:45 97 05/05/22 15:30 98 05/05/22 15:15 97 05/05/22 15:00 98 05/05/22 14:52 05/05/22 14:45 96 05/05/22 14:30 100 05/05/22 14:15 97 05/05/22 14:00 100 05/05/22 13:45 99 05/05/22 13:30 100 100 05/05/22 13:15 100 05/05/22 13:00 97 05/05/22 12:45 100 05/05/22 12:30 95 12/18/21 12:15 96 12/18/21 12:03 100 12/18/21 12:00 100 12/18/21 11:45 99 12/18/21 11:30 100 12/18/21 11:15 100 12/18/21 11:00 100 12/18/21 10:45 99 12/18/21 10:30 97 - Physical Examination General: Other (Sedated, on the vent) HEENT: Positive: PERRL Neck: Positive: neck supple Cardiac: Positive: Reg Rate and Rhythm Lungs: Positive: Decreased Breath Sounds Neuro: Positive: Other (Sedated, on the vent) Abdomen: Positive: Soft Skin: Positive: Clear Extremities: Absent: edema - Labs and Meds CBC 12/18/21 12/19/21 Range/Units 23:05 05:00 WBC 19.2 H 18.9 H (4.5-11.0) K/mm3 RBC 3.51 L 3.29 L (3.65-5.03) M/mm3 Hgb 8.8 L 8.4 L (10.1-14.3) gm/dl Hct 27.8 L 26.0 L (30.3-42.9) % Plt Count 34 L 34 L (140-440) K/mm3 Comprehensive Metabolic Panel 12/19/21 Range/Units 05:00 Sodium 137 (137-145) mmol/L Potassium 3.9 (3.6-5.0) mmol/L Chloride 98.8 (98-107) mmol/L Carbon Dioxide 26 (22-30) mmol/L BUN 30 H (7-17) mg/dL Creatinine 3.1 H (0.6-1.2) mg/dL Glucose 155 H (65-100) mg/dL Calcium 8.2 L (8.4-10.2) mg/dL - Allied health notes Allied health notes reviewed: nursing
[2021-12-19 11:00] LABS: Total Cells Counted 100
[2021-12-19 11:01] LABS: Band Neutrophils # (Manual) 0.4 K/mm3; Basophils % (Manual) 0 % (0.0-1.8); Eosinophils % (Manual) 0 % (0.0-4.3)
[2021-12-19 11:06] LABS: Anisocytosis Few; Poikilocytosis Few
[2021-12-19 11:07] LABS: Ovalocytes Rare; Platelet Estimate Consistent w Auto; Rouleaux Rare; Schistocytes Rare; Target Cells Rare
[2021-12-19 11:08] LABS: Hypochromasia 1+
--- NOTE | 2021-12-19 11:22 | XRay Report ---
ABDOMEN 1 VIEW 12/19/2021 9:21 AM INDICATION / CLINICAL INFORMATION: vomiting. COMPARISON: 12/15/21 FINDINGS: TUBES / LINES: Feeding tube is present in the distal stomach, unchanged. Left femoral venous line pro jects over the left common femoral vein. BOWEL GAS PATTERN: Moderate gaseous distention of the stomach. No dilated small or large bowel. FREE AIR / EXTRALUMINAL GAS: None. ADDITIONAL FINDINGS: Cholecystectomy clips in the right upper quadrant. Bilateral iliac artery stents IMPRESSION: 1. Feeding tube in expected position. 2. Moderate gaseous distention of the stomach. Signer Name: Kourtney Trinidad MD Signed: 12/19/2021 11:18 AM Workstation Name: [id number]
--- NOTE | 2021-12-19 12:53 | Progress Note ---
Assessment and Plan Cultures: Blood culture group B strep Catheter tip culture: Group B strep Blood culture 12/16/2021 pending A/P: 66-year-old female past medical history hypertension, ESRD on HD now with: #Group B strep bacteremia: Source possibly from dialysis. Catheter since been removed. TTE without evidence of vegetations. #Thrombocytopenia: Probably secondary to sepsis. Heme on board, patient receiving steroids. #ESRD on HD: Renally dose antibiotics Recs: -Continue ceftriaxone 2 g every 24 hours we will plan 2 weeks of antibiotics -Follow-up repeat blood cultures Thank you for the consult, we will continue to follow. Tien Shelby MD [facility] ([facility]) O: [phone] F: [phone] Subjective Date of service: 12/19/21 Principal diagnosis: Septic shock ; Bacteremia; ESRD on dialysis; AMS; NSTEMI; HTN; DM II Interval history: Afebrile, white count 18 point 9 repeat blood cultures no growth so far. Remains on the vent Imaging personally reviewed: Chest x-ray: Stable bilateral lung opacities Objective - Exam Narrative Exam: Physical Exam: Constitutional: Alert, cooperative. No acute distress Head, Ears, Nose: Normocephalic, atraumatic. External ears, nose normal Eyes: Conjunctivae/corneas clear. No icterus. No ptosis. Neck: Supple, no meningeal signs Oral: dentition fair, no thrush Cardiovascular: S1, S2 normal. Respiratory: Good air entry, clear to auscultation bilaterally GI: Soft, non-tender; bowel sounds normal. No peritoneal signs. Musculoskeletal: No pedal edema, no cyanosis. Skin: No rash or abscess Hem/Lymphatic: No palpable cervical or supraclavicular nodes. No lymphangitis Psych: Mood ok. Affect normal Neurological: Awake, alert, oriented. No gross abnormality - Constitutional Vitals: Vital Signs Temp Pulse Resp BP Pulse Ox 98.3 F 61 9 L 129/68 100 12/19/21 11:43 12/19/21 12:00 12/19/21 12:00 12/19/21 12:00 12/19/21 12:00 Temperature -Last 24 Hours Temperature 98.3 F Temperature 98.9 F Temperature 97.1 F Temperature 97.2 F Temperature 98.2 F Temperature 97.5 F Temperature 98.1 F Temperature 98.1 F - Labs CBC & Chem 7: 12/19/21 05:00 12/19/21 05:00 Labs: Abnormal lab results 12/18/21 12/18/21 12/18/21 Range/Units 10:56 12:00 18:06 WBC (4.5-11.0) K/mm3 RBC (3.65-5.03) M/mm3 Hgb (10.1-14.3) gm/dl Hct (30.3-42.9) % MCH (28-32) pg RDW (13.2-15.2) % Plt Count (140-440) K/mm3 Seg Neuts % (Manual) (40.0-70.0) % Lymphocytes % (Manual) (13.4-35.0) % Seg Neutrophils # Man (1.8-7.7) K/mm3 Lymphocytes # (Manual) (1.2-5.4) K/mm3 ABG pO2 (80.0-90.0) mm Hg ABG HCO3 (20.0-26.0) mmol/L ABG O2 Saturation (95.0-99.0) % ABG Hemoglobin (12.0-16.0) gm/dl Oxyhemoglobin (95.0-99.0) % BUN (7-17) mg/dL Creatinine (0.6-1.2) mg/dL Glucose (65-100) mg/dL POC Glucose 190 H 156 H (70-105) mg/dL Calcium (8.4-10.2) mg/dL Phosphorus 2.40 L D (2.5-4.5) mg/dL 12/18/21 12/18/21 12/18/21 Range/Units 20:00 23:05 23:54 WBC 19.2 H (4.5-11.0) K/mm3 RBC 3.51 L (3.65-5.03) M/mm3 Hgb 8.8 L (10.1-14.3) gm/dl Hct 27.8 L (30.3-42.9) % MCH 25 L (28-32) pg RDW 18.1 H (13.2-15.2) % Plt Count 34 L (140-440) K/mm3 Seg Neuts % (Manual) (40.0-70.0) % Lymphocytes % (Manual) (13.4-35.0) % Seg Neutrophils # Man (1.8-7.7) K/mm3 Lymphocytes # (Manual) (1.2-5.4) K/mm3 ABG pO2 62.5 L (80.0-90.0) mm Hg ABG HCO3 26.6 H (20.0-26.0) mmol/L ABG O2 Saturation 91.7 L (95.0-99.0) % ABG Hemoglobin 8.4 L (12.0-16.0) gm/dl Oxyhemoglobin 89.9 L (95.0-99.0) % BUN (7-17) mg/dL Creatinine (0.6-1.2) mg/dL Glucose (65-100) mg/dL POC Glucose 122 H (70-105) mg/dL Calcium (8.4-10.2) mg/dL Phosphorus (2.5-4.5) mg/dL 12/19/21 12/19/21 12/19/21 Range/Units 05:00 05:00 05:29 WBC 18.9 H (4.5-11.0) K/mm3 RBC 3.29 L (3.65-5.03) M/mm3 Hgb 8.4 L (10.1-14.3) gm/dl Hct 26.0 L (30.3-42.9) % MCH 26 L (28-32) pg RDW 18.2 H (13.2-15.2) % Plt Count 34 L (140-440) K/mm3 Seg Neuts % (Manual) 93.0 H (40.0-70.0) % Lymphocytes % (Manual) 2.0 L (13.4-35.0) % Seg Neutrophils # Man 17.6 H (1.8-7.7) K/mm3 Lymphocytes # (Manual) 0.4 L (1.2-5.4) K/mm3 ABG pO2 (80.0-90.0) mm Hg ABG HCO3 (20.0-26.0) mmol/L ABG O2 Saturation (95.0-99.0) % ABG Hemoglobin (12.0-16.0) gm/dl Oxyhemoglobin (95.0-99.0) % BUN 30 H (7-17) mg/dL Creatinine 3.1 H (0.6-1.2) mg/dL Glucose 155 H (65-100) mg/dL POC Glucose 153 H (70-105) mg/dL Calcium 8.2 L (8.4-10.2) mg/dL Phosphorus (2.5-4.5) mg/dL
--- NOTE | 2021-12-19 12:57 | Progress Note ---
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 -Sedated with fentanyl -RASS goal 0 to -1 -Avoid delirium -Reorientation as needed -Maintain sleep-wake cycle -Aspiration/seizure precautions -Keppra -As needed analgesia -CT head showed small quantity of increased attenuation in the central debora likely related to calcification and hemorrhage not favored, venous collaterals seen within the base of the neck and patient has a left brachiocephalic stent, nonspecific prominent left supraclavicular lymph node, multinodular nodular thyroid gland -Neurology consulted, appreciate recommendations Cardiac: NSTEMI, severe cardiomyopathy with reduced EF, h/o HTN, IA, CAD with IA (2007) s/p PCI , HLD -Cardiology consulted, appreciate recommendations -Blood pressure monitoring per protocol -Vasopressor support with Levophed -MAP goal greater than 65 -Per cardio: Echocardiogram (completed 2 weeks prior to this admission) showed a moderate severity cardiomyopathy, ejection fraction 35 to 40%. -Echo thsi admit shows LVEF 30 to 35%, no valvular vegetations -S/p dobutamine -Lipitor, aspirin, Midodrine -Hold home antihypertensive regimen in setting of hypotension Respiratory: Acute hypoxic respiratory failure -CCM consulted, appreciate recommendations -Intubated / with 7.5 oett at 20 at the lips -A.m. vent settings: Assist-control rate 16, tidal volume 450, PEEP 8, FiO2 30% -See RT notes for titration -PSV today -VAP bundle -SPO2 monitoring GI: Protein calorie malnutrition, h/o GERD -24 hours +2799 mL HD 12/18 with removal of 2L -PPI -NTR consulted for tube feedings -BR: Senokot -Reglan -KUB with no acute process : ESRD on HD, hypophosphatemia -Nephrology consulted, appreciate recommendations -HD per nephrology -Strict intake and output -Renally dose medications -Avoid nephrotoxic medications -Daily weights -PhosLo and Renvela -d/c d/t low phos ID: Sepsis secondary to beta-hemolytic strep group B (POA based on source), RUE infiltration of NS and possible Levophed -Infectious disease consulted, appreciate recommendations -S/p removal of right upper chest PermCath -cath culture with beta-hemolytic strep group B -Antibiotic therapy with ceftriaxone -f/u blood culture -SHOAIB without vegetation -WOCN consult -Dressing changes per nursing -Antidote for levo not available -Cold compress and elevation -Monitor WBC and temperature curve Endo: Multi-nodular thyroid gland, h/o IDDM -Multinodular thyroid gland noted on CT head -Dedicated thyroid ultrasound recommended -Avoid hypoglycemia -SSI -Accu-Cheks ACHS Heme: Leukocytosis, AOCD, thrombocyopenia -Trend CBC -Transfuse hemoglobin less than 7 -Monitor for signs of bleeding -SCDs to BLE while in bed -heparin subq dc -HIT panel ending -Hematology/oncology consulted -Continue solu medrol 1mg/kg BID -Transfuse 1 dose of plts whenever plt count <20 -Continue IV Ferrlicet 125mg x3 doses -Monitor plts and for bleeding MS: S/p fall at home with contusion of right lower extremity, pain and swelling -CT head/C-spine/pelvis showed no acute fracture or dislocation -XR L-spine/right tib-fib/fib/right femur/right hip and pelvis showed no acute fracture or dislocation. -PT consulted The high probability of a clinically significant, sudden or life threatening deterioration of the [multi] system(s) required my full and direct attention, intervention and personal management. The aggregate critical care time was [60] minutes. 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 Patient stated that she felt dizzy and then found herself on the ground. In the emergency department patient was found to have elevated troponin, elevated BUN/creatinine at 9.2/76, CXR showed pulmonary edema and CT head/C-spine/pelvis showed no acute fracture or dislocation and x-ray L- spine/right tib-fib/fib/right femur/right hip and pelvis showed no acute fracture or dislocation. Patient was admitted to the hospitalist service with consults to nephrology and cardiology. Hospital course to date: 12/12: No acute events overnight, reports extreme pain in her right leg, denies chest pain or shortness of breath 12/13: No acute events overnight, patient tearful and complaining of right leg pain however she is refusing analgesic medication 12/14: Continues to have right leg pain, does not participate in interview 12/15: Patient transferred to the ICU for hypotension on Levophed drip however she was weaned off by morning and midodrine was increased due to borderline MAP. Blood cultures grew 11/17 gram-positive cocci with suspected right upper chest permacath source. Patient started on vancomycin and infectious disease consulted. Plan for IR consult for permacath removal and assessment of aVF functioning. Possible temporary Vas-Cath placement for hemodialysis. Patient is encephalopathic likely secondary to sepsis. Continue current antibiotics and repeat 2D echo and blood cultures in the a.m. Right upper extremity swelling and pain noted and right upper extremity XR and Doppler ordered. 12/16: Patient noted to have blisters on left arm and RN asked to elevate and place cool compresses to site. AV fistula on left upper extremity access by hemodialysis nurse and hemodialysis ongoing. Vasopressin ordered in efforts to wean Levophed while on hemodialysis. Echocardiogram repeated. Blood cultures grew beta-hemolytic strep group B and antibiotics changed to ceftriaxone. Dobutamine drip discontinued. Remained sedated on fentanyl drip. 12/17: Thrombocytopenia worse today, unable to tolerate being off vasopressin, started on steroids, HIT assay ordered-discontinued. SCDs for now. [facility] will like to give normal saline 100 ml/hr for 2 L. 12/18: Wound care consult placed for right upper extremity, PSV trials today, weaning Levophed, dialysis planned for today. Hematology/oncology consulted yesterday who recommends twice daily Solu-Medrol. No acute events reported overnight. Patient will be started on IV iron 12/19: PSV today, mentation better and intermittently follows commands. Platelets stable. Reglan started for vomiting and will slowly increase TF. KUB with no acute process. Hospitalist Physical - Constitutional Vitals: Temp Pulse Resp BP Pulse Ox 98.3 F 61 9 L 129/68 100 12/19/21 11:43 12/19/21 12:00 12/19/21 12:00 12/19/21 12:00 12/19/21 12:00 General appearance: Present: no acute distress, other (intubated) - EENT Eyes: Present: PERRL, EOM intact ENT: hearing intact, clear oral mucosa, poor dentition - Respiratory Respiratory effort: normal Respiratory: bilateral: diminished - Cardiovascular Rhythm: regular Heart Sounds: Present: S1 & S2. Absent: systolic murmur, diastolic murmur - Extremities Extremities: no ischemia, pulses intact, pulses symmetrical, normal temperature, normal color Extremity abnormal: edema, other (open blisters with pink wound beds to RUE) Peripheral Pulses: within normal limits - Peripheral pulses radial pulse Pulse Strength: 2+ - Abdominal General gastrointestinal: soft, non-tender, non-distended, normal bowel sounds - Integumentary Integumentary: Present: warm, dry - Psychiatric Psychiatric: cooperative - Neurologic Neurologic: moves all extremities - Allied Health Allied health notes reviewed: nursing, RT, social work HEART Score - HEART Score Troponin: Troponin T 0.175 ng/mL (0.00-0.029) H* 12/12/21 04:43 Results - Labs CBC & Chem 7: 12/19/21 05:00 12/19/21 05:00 Labs: Laboratory Last Values WBC 18.9 K/mm3 (4.5-11.0) H 12/19/21 05:00 RBC 3.29 M/mm3 (3.65-5.03) L 12/19/21 05:00 Hgb 8.4 gm/dl (10.1-14.3) L 12/19/21 05:00 Hct 26.0 % (30.3-42.9) L 12/19/21 05:00 MCV 79 fl (79-97) 12/19/21 05:00 MCH 26 pg (28-32) L 12/19/21 05:00 MCHC 33 % (30-34) 12/19/21 05:00 RDW 18.2 % (13.2-15.2) H 12/19/21 05:00 Plt Count 34 K/mm3 (140-440) L 12/19/21 05:00 Lymph % (Auto) 5.9 % (13.4-35.0) L 12/17/21 04:00 [place] % (Auto) 4.6 % (0.0-7.3) 12/17/21 04:00 Eos % (Auto) 0.4 % (0.0-4.3) 12/17/21 04:00 Baso % (Auto) 0.8 % (0.0-1.8) 12/17/21 04:00 Lymph # (Auto) 0.7 K/mm3 (1.2-5.4) L 12/17/21 04:00 [place] # (Auto) 0.6 K/mm3 (0.0-0.8) 12/17/21 04:00 Eos # (Auto) 0.0 K/mm3 (0.0-0.4) 12/17/21 04:00 Baso # (Auto) 0.1 K/mm3 (0.0-0.1) 12/17/21 04:00 Add Manual Diff Complete 12/18/21 05:00 Total Counted 100 12/19/21 05:00 Seg Neutrophils % Physical Therapist Aide 12/19/21 05:00 Seg Neuts % (Manual) 93.0 % (40.0-70.0) H 12/19/21 05:00 Band Neutrophils % 2.0 % 12/19/21 05:00 Lymphocytes % (Manual) 2.0 % (13.4-35.0) L 12/19/21 05:00 Reactive Lymphs % (Man) 0 % 12/19/21 05:00 Monocytes % (Manual) 1.0 % (0.0-7.3) 12/19/21 05:00 Eosinophils % (Manual) 0 % (0.0-4.3) 12/19/21 05:00 Basophils % (Manual) 0 % (0.0-1.8) 12/19/21 05:00 Metamyelocytes % 2.0 % 12/19/21 05:00 Myelocytes % 0 % 12/19/21 05:00 Promyelocytes % 0 % 12/19/21 05:00 Blast Cells % 0 % 12/19/21 05:00 Nucleated RBC % Not Reportable 12/19/21 05:00 Seg Neutrophils # 10.9 K/mm3 (1.8-7.7) H 12/17/21 04:00 Seg Neutrophils # Man 17.6 K/mm3 (1.8-7.7) H 12/19/21 05:00 Band Neutrophils # 0.4 K/mm3 12/19/21 05:00 Lymphocytes # (Manual) 0.4 K/mm3 (1.2-5.4) L 12/19/21 05:00 Abs React Lymphs (Man) 0.0 K/mm3 12/19/21 05:00 Monocytes # (Manual) 0.2 K/mm3 (0.0-0.8) 12/19/21 05:00 Eosinophils # (Manual) 0.0 K/mm3 (0.0-0.4) 12/19/21 05:00 Basophils # (Manual) 0.0 K/mm3 (0.0-0.1) 12/19/21 05:00 Metamyelocytes # 0.4 K/mm3 12/19/21 05:00 Myelocytes # 0.0 K/mm3 12/19/21 05:00 Promyelocytes # 0.0 K/mm3 12/19/21 05:00 Blast Cells # 0.0 K/mm3 12/19/21 05:00 WBC Morphology Not Reportable 12/19/21 05:00 Hypersegmented Neuts Not Reportable 12/19/21 05:00 Hyposegmented Neuts 1+ 12/19/21 05:00 Hypogranular Neuts Not Reportable 12/19/21 05:00 Smudge Cells Not Reportable 12/19/21 05:00 Toxic Granulation Not Reportable 12/19/21 05:00 Toxic Vacuolation Not Reportable 12/19/21 05:00 Dohle Bodies Not Reportable 12/19/21 05:00 Pelger-Huet Anomaly Not Reportable 12/19/21 05:00 Charles Rods Not Reportable 12/19/21 05:00 Platelet Estimate Consistent w auto 12/19/21 05:00 Clumped Platelets Not Reportable 12/19/21 05:00 Plt Clumps, EDTA Not Reportable 12/19/21 05:00 Large Platelets Not Reportable 12/19/21 05:00 Giant Platelets Not Reportable 12/19/21 05:00 Platelet Satelliting Not Reportable 12/19/21 05:00 Plt Morphology Comment Not Reportable 12/19/21 05:00 RBC Morphology Not Reportable 12/19/21 05:00 Dimorphic RBCs Not Reportable 12/19/21 05:00 Polychromasia Not Reportable 12/19/21 05:00 Hypochromasia 1+ 12/19/21 05:00 Poikilocytosis Few 12/19/21 05:00 Anisocytosis Few 12/19/21 05:00 Microcytosis Not Reportable 12/19/21 05:00 Macrocytosis Not Reportable 12/19/21 05:00 Spherocytes Not Reportable 12/19/21 05:00 Pappenheimer Bodies Not Reportable 12/19/21 05:00 Sickle Cells Not Reportable 12/19/21 05:00 Target Cells Rare 12/19/21 05:00 Tear Drop Cells Not Reportable 12/19/21 05:00 Ovalocytes Rare 12/19/21 05:00 Helmet Cells Not Reportable 12/19/21 05:00 Murphy-Grygla Bodies Not Reportable 12/19/21 05:00 Cumming Rings Not Reportable 12/19/21 05:00 [place] Cells Not Reportable 12/19/21 05:00 Bite Cells Not Reportable 12/19/21 05:00 Crenated Cell Not Reportable 12/19/21 05:00 Elliptocytes Not Reportable 12/19/21 05:00 Acanthocytes (Spur) Not Reportable 12/19/21 05:00 Rouleaux Rare 12/19/21 05:00 Hemoglobin C Crystals Not Reportable 12/19/21 05:00 Schistocytes Rare 12/19/21 05:00 Malaria parasites Not Reportable 12/19/21 05:00 Percent Retic 0.37 % (0.78-2.58) L 12/18/21 05:00 Bryson Bodies Not Reportable 12/19/21 05:00 Hem Pathologist Commnt Not Reportable 12/19/21 05:00 PT 17.4 Sec. (12.2-14.9) H 12/17/21 18:32 INR 1.27 (0.87-1.13) H 12/17/21 18:32 Fibrinogen 481 mg/dl (211-480) H 12/18/21 05:00 ABG pH 7.383 pH Units (7.350-7.450) 12/18/21 20:00 ABG pCO2 45.6 mm Hg 12/18/21 20:00 ABG pO2 62.5 mm Hg (80.0-90.0) L 12/18/21 20:00 ABG HCO3 26.6 mmol/L (20.0-26.0) H 12/18/21 20:00 ABG O2 Saturation 91.7 % (95.0-99.0) L 12/18/21 20:00 ABG O2 Content 10.7 (0.0-44) 12/18/21 20:00 ABG Base Excess 1.3 mmol/L (-2.0-3.0) 12/18/21 20:00 ABG Hemoglobin 8.4 gm/dl (12.0-16.0) L 12/18/21 20:00 ABG Carboxyhemoglobin 1.7 % (0.0-5.0) 12/18/21 20:00 ABG Methemoglobin 0.3 % (0.0-1.5) 12/18/21 20:00 VBG pO2 > 258.0 (25.0-47.0) H 12/15/21 19:50 Oxyhemoglobin 89.9 % (95.0-99.0) L 12/18/21 20:00 FiO2 30 % 12/18/21 20:00 Sodium 137 mmol/L (137-145) 12/19/21 05:00 Potassium 3.9 mmol/L (3.6-5.0) 12/19/21 05:00 Chloride 98.8 mmol/L (98-107) 12/19/21 05:00 Carbon Dioxide 26 mmol/L (22-30) 12/19/21 05:00 Anion Gap 16 mmol/L 12/19/21 05:00 BUN 30 mg/dL (7-17) H 12/19/21 05:00 Creatinine 3.1 mg/dL (0.6-1.2) H 12/19/21 05:00 Estimated GFR 18 ml/min 12/19/21 05:00 BUN/Creatinine Ratio 10 % 12/19/21 05:00 Glucose 155 mg/dL (65-100) H 12/19/21 05:00 POC Glucose 153 mg/dL (70-105) H 12/19/21 05:29 Lactic Acid 1.90 mmol/L (0.7-2.0) 12/16/21 05:00 Calcium 8.2 mg/dL (8.4-10.2) L 12/19/21 05:00 Phosphorus 2.40 mg/dL (2.5-4.5) L D 12/18/21 12:00 Magnesium 2.10 mg/dL (1.7-2.3) 12/18/21 12:00 Iron 13 ug/dL (37-170) L 12/18/21 05:00 TIBC 109 mcg/dL (250-450) L 12/18/21 05:00 Ferritin 383.4 ng/mL (10.0-200.0) H 12/18/21 05:00 Total Bilirubin 0.60 mg/dL (0.1-1.2) 12/11/21 15:40 AST 22 units/L (5-40) 12/11/21 15:40 ALT 13 units/L (7-56) 12/11/21 15:40 Alkaline Phosphatase 237 units/L (35-129) H 12/11/21 15:40 Lactate Dehydrogenase 154 units/L (91-180) 12/18/21 05:00 Troponin T 0.175 ng/mL (0.00-0.029) H* 12/12/21 04:43 C-Reactive Protein 38.50 mg/dL (0.00-1.30) H 12/15/21 14:40 Total Protein 7.4 g/dL (6.3-8.2) 12/11/21 15:40 Albumin 3.6 g/dL (3.9-5) L 12/11/21 15:40 Albumin/Globulin Ratio 0.9 % 12/11/21 15:40 Triglycerides 92 mg/dL (2-149) 12/11/21 15:40 Cholesterol 72 mg/dL (50-199) 12/11/21 15:40 LDL Cholesterol Direct 16 mg/dL (50-130) L 12/11/21 15:40 HDL Cholesterol 41 mg/dL (40-59) 12/11/21 15:40 Cholesterol/HDL Ratio 1.75 % 12/11/21 15:40 Procalcitonin 46.16 ng/mL (<0.15) 12/15/21 04:11 Random Vancomycin 15.6 ug/mL (0-40.0) 12/16/21 05:00 Blood Type O POSITIVE 12/17/21 09:30 Antibody Screen Negative 12/17/21 09:30 Microbiology: Microbiology 12/16/21 10:03 Peripheral/Venous Blood Culture - Preliminary NO GROWTH AFTER 72 HOURS 12/16/21 09:57 Peripheral/Venous Blood Culture - Preliminary NO GROWTH AFTER 72 HOURS 12/15/21 20:00 Tracheal Aspirate Sputum Culture - Final 12/15/21 15:53 Vascular Cath Catheter Tip Culture - Final Beta Hemolytic Strep Group B Active Medications - Current Medications Current Medications: Generic Name Dose Route Start Last Admin Trade Name Freq PRN Reason Stop Dose Admin Acetaminophen 650 mg 12/13/21 23:00 12/13/21 23:18 Acetaminophen 650 Mg Rect Supp OH 650 mg Q4H PRN Administration Pain, Mild (1-3) Albuterol 2.5 mg 12/11/21 22:14 Albuterol 2.5 Mg/3 Ml Nebu IH Q6HR PRN Wheezing Albuterol/Ipratropium 1 ampul 12/14/21 08:00 12/19/21 08:07 Ipratropium/Albuterol Sulfate 3 Ml Ampul.Neb IH 1 ampul TIDRT KRISTA Administration Lipase/Protease/Amylase 1 each 12/16/21 11:15 Lipase 10,500/Protease 25,000/Amylase 43,750 (Units) Dr Blanco FEEDTUBE PRN PRN For Clogged Feeding Tube Aspirin 81 mg 12/15/21 10:00 12/19/21 09:52 Aspirin 81 Mg Tab Chew FEEDTUBE 81 mg QDAY KRISTA Administration Atorvastatin Calcium 80 mg 12/15/21 22:00 12/18/21 22:39 Atorvastatin 40 Mg Tab FEEDTUBE 80 mg QHS KRISTA Administration Budesonide 0.5 mg 12/13/21 08:00 12/19/21 08:07 Budesonide 0.5 Mg/2 Ml Nebu IH 0.5 mg Q12HRT KRISTA Administration Dextrose 50 ml 12/11/21 22:23 12/16/21 06:24 Dextrose 50% In Water (25gm) 50 Ml Syringe IV 15 ml Q30MIN PRN Administration Hypoglycemia Protocol Famotidine 10 mg 12/15/21 22:00 12/19/21 09:52 Famotidine 10 Mg Tab FEEDTUBE 10 mg BID KRISTA Administration Fentanyl 50 mcg 12/15/21 17:19 12/15/21 17:58 Fentanyl 100 Mcg/2 Ml Inj IV 50 mcg Q10MIN PRN Administration ANALGESIA Hydrophilic Ointment 1 applic 12/16/21 14:30 Lip Therapy Vaseline TP Q2HR PRN Dry Lips Sodium Chloride 100 mls @ 999 mls/hr 12/12/21 12:00 Nacl 0.9% IV ABEL PRN Hypotension NORepinephrine/NS 8 MG-250 ML 8 mg in 250 mls @ 3.75 mls/hr 12/14/21 23:00 12/18/21 19:02 Norepinephrine/Ns 8 Mg-250 Ml (Double Conc) IV 0 mcg/min TITRATE KRISTA 0 mls/hr Titration Protocol 2 MCG/MIN Fentanyl Citrate 2,000 mcg in 100 mls @ 2.945 mls/hr 12/15/21 18:00 12/19/21 12:14 Fentanyl Drip Premix IV 1 mcg/kg/hr TITR KRISTA 2.945 mls/hr Titration Protocol 1 MCG/KG/HR Vasopressin 20 unit/ Sodium 101 mls @ 9.09 mls/hr 12/16/21 10:00 12/17/21 18:27 Chloride IV 0 units/min TITR KRISTA 0 mls/hr Titration Protocol 0.03 UNITS/MIN Ceftriaxone Sodium 2 gm in 100 mls @ 200 mls/hr 12/16/21 15:00 12/18/21 18:03 Rocephin/Ns 2 Gm/100 Ml IV 12/29/21 15:29 200 mls/hr Q24H KRISTA Administration Protocol Ferric Sodium Gluconate 110 mls @ 100 mls/hr 12/18/21 11:00 12/19/21 09:52 Complex 125 mg/ Sodium IV 12/21/21 23:59 100 mls/hr Chloride DAILY KRISTA Administration Insulin Human Lispro 0 unit 12/15/21 12:00 12/19/21 11:52 Insulin Lispro 100 Unit/Ml SUB-Q 3 unit Q6HR KRISTA Administration Protocol Levetiracetam 500 mg 12/16/21 18:00 12/18/21 18:08 Levetiracetam 500 Mg/5 Ml Oral Liqd FEEDTUBE 500 mg TuThSa KRISTA Administration Methylprednisolone Sodium Succinate 60 mg 12/18/21 22:00 12/19/21 09:51 Methylprednisolone Sod Succinate 125 Mg/2 Ml Inj IV 12/21/21 21:59 60 mg Q12HR KRISTA Administration Metoclopramide HCl 5 mg 12/19/21 10:00 12/19/21 09:51 Metoclopramide 10 Mg/2 Ml Inj IV 12/21/21 09:59 5 mg Q6H KRISTA Administration Midodrine 10 mg 12/15/21 12:00 12/19/21 11:52 Midodrine 10 Mg Tab FEEDTUBE 10 mg TID@0800,1200,1600 KRISTA Administration Morphine Sulfate 2 mg 12/11/21 22:11 Morphine 4 Mg/1 Ml Inj IV Q5MIN PRN Chest Pain unrelieved by NTG Multi-Ingred Cream/Lotion/Oil/Oint 1 applic 12/16/21 14:10 Mineral Oil/Petrolatum, White Ophth Oint 3.5 Gm OU Q4HR PRN Dry Eye(s) Nitroglycerin 0.4 mg 12/11/21 22:11 Nitroglycerin 0.4 Mg Tab Subl SL Q5M PRN Chest Pain Potassium Phos/Sodium Phos 1 each 12/18/21 22:00 12/19/21 09:51 Phos-Nak Powder Packet PO 12/19/21 21:59 1 each Q12HR KRISTA Administration Senna/Docusate Sodium 1 tab 12/16/21 22:00 12/19/21 09:51 Sennosides/Docusate Sodium 8.6/50 Mg Tab FEEDTUBE 1 tab BID KRISTA Administration Simple Syrup 15 ml 12/16/21 11:15 Simple Syrup 15 Ml FEEDTUBE PRN PRN Hypoglycemia Simple Syrup 30 ml 12/16/21 11:15 Simple Syrup 15 Ml FEEDTUBE PRN PRN Hypoglycemia Sodium Bicarbonate 325 mg 12/16/21 11:15 Sodium Bicarbonate 325 Mg Tab FEEDTUBE PRN PRN For Clogged Feeding Tube Sodium Chloride 10 ml 12/11/21 22:11 12/19/21 09:51 Sodium Chloride 0.9% 10 Ml Flush Syringe IV 10 ml PRN PRN Administration LINE FLUSH Nutrition/Malnutrition Assess - Dietary Evaluation Nutrition/Malnutrition Findings: Nutrition Notes Start: 12/12/21 11:57 Freq: Status: Active Protocol: Document 12/16/21 12:42 EVERARDO (Rec: 12/16/21 13:25 EVERARDO [id number]) Nutrition Notes Need for Assessment generated from: Order Initial or Follow up Reassessment Current Diagnosis CKD (stage V CKD),Diabetes, Sepsis,Hypertension, Respiratory Failure Other Pertinent Diagnosis CKD+HD, Hypotension, GPC Bacteremia, s/p Fall, ... Current Diet TF-Nepro w/CARBSTEADY @ 30 ml/ hr (from L 12/17). Labs/Tests 12/16: BUN 75, Crea 7.7, Ca 8. 3. Pertinent Medications 11/16: Vasopressin 20 U/101 ml @ 9.09 ml/hr, others nutritionally unremarkable. Height 4 ft 11 in Weight 58.9 kg [place] Body Weight (kg) 43.18 BMI 26.2 Weight change and time frame No body weight change reported . Weight Status Appropriate Subjective/Other Information RD consult for write/manage TF . TF was already prepared yesterday, I will place the order. Pt is on Mechanical ventilation, O2 saturation @ 100%, according to Physical Assessment History notes. Pt's HD is running on L-arm AV Graft, according to Progress notes. On 12/16, HD had to be suspended, due to Pt's worsening condition and increasing Pressor requirement , according to Event note. Percent of energy/protein needs met: Prescribed TF-Nepro w/ CARBSTEADY @ 30 ml/hr provides for energy/protein needs (1, 296 Kcal/58 g) during LOS, 103 % Kcal; 82% AA. Burn Absent Trauma Absent GI Symptoms None Difficulty In Swallowing Food Allergy No Skin Integrity/Comment R-Arm area of concern. Current % PO Other Minimum of two criteria No #1 Nutrition Diagnosis Inadequate oral intake Etiology Encephalopathy and Pt now on Mechanical Ventilation. As Evidenced by Signs and Symptoms Pt continues on NPO. Is patient on ventilator? Yes Is Patient Ambulatory and/or Out of Bed No REE-([place]-St. Jeor-confined to bed) 0018.992 Calculation Used for Recommendations [facility] Additional Notes Protein: >1.2 g/Kg ABW; >71 g/ day. Fluids: 1-1.5 L/day, or as per MD. Nutrition Intervention Nutrition Support: Start TF-Nepro w/CARBSTEADY @ 30 ml/hr. Flush: 130 ml water Q 4 hr, or as per MD. Kcal 1,296 Protein (gm) 58 Carbohydrates (gm) 116 Fat (gm) 69 Fluid (mL) 523 Fiber (gm) 9 % RDI: 103% Kcal; 82% AA. Goal #1 Provide at least 75% of energy /protein needs through Enteral Feeding during LOS. Goal #2 Maintain body weight within +/ -3% of admission body weight during LOS. Follow-Up By: 12/19/21 Additional Comments Start monitoring TF tolerance and BM. <AUSTIN STARR - Last Filed: 12/20/21 07:19> Assessment and Plan Assessment and plan: I saw and evaluated the patient. I agree with the findings and the plan of care as documented in the Nurse Practitioner's~note, with the following corrections and additions. Hospitalist Physical - Constitutional Vitals: Temp Pulse Resp BP Pulse Ox 100.4 F H 88 14 113/59 100 12/20/21 03:54 12/20/21 04:02 12/20/21 04:00 12/20/21 04:02 12/20/21 04:02 HEART Score - HEART Score Troponin: Troponin T 0.175 ng/mL (0.00-0.029) H* 12/12/21 04:43 Results - Labs CBC & Chem 7: 12/20/21 04:45 12/20/21 04:45 Labs: Laboratory Last Values WBC 15.0 K/mm3 (4.5-11.0) H 12/20/21 04:45 RBC 3.39 M/mm3 (3.65-5.03) L 12/20/21 04:45 Hgb 8.4 gm/dl (10.1-14.3) L 12/20/21 04:45 Hct 26.8 % (30.3-42.9) L 12/20/21 04:45 MCV 79 fl (79-97) 12/20/21 04:45 MCH 25 pg (28-32) L 12/20/21 04:45 MCHC 32 % (30-34) 12/20/21 04:45 RDW 17.8 % (13.2-15.2) H 12/20/21 04:45 Plt Count 36 K/mm3 (140-440) L 12/20/21 04:45 Lymph % (Auto) 5.9 % (13.4-35.0) L 12/17/21 04:00 [place] % (Auto) 4.6 % (0.0-7.3) 12/17/21 04:00 Eos % (Auto) 0.4 % (0.0-4.3) 12/17/21 04:00 Baso % (Auto) 0.8 % (0.0-1.8) 12/17/21 04:00 Lymph # (Auto) 0.7 K/mm3 (1.2-5.4) L 12/17/21 04:00 [place] # (Auto) 0.6 K/mm3 (0.0-0.8) 12/17/21 04:00 Eos # (Auto) 0.0 K/mm3 (0.0-0.4) 12/17/21 04:00 Baso # (Auto) 0.1 K/mm3 (0.0-0.1) 12/17/21 04:00 Add Manual Diff Complete 12/18/21 05:00 Total Counted 100 12/19/21 05:00 Seg Neutrophils % Physical Therapist Aide 12/19/21 05:00 Seg Neuts % (Manual) 93.0 % (40.0-70.0) H 12/19/21 05:00 Band Neutrophils % 2.0 % 12/19/21 05:00 Lymphocytes % (Manual) 2.0 % (13.4-35.0) L 12/19/21 05:00 Reactive Lymphs % (Man) 0 % 12/19/21 05:00 Monocytes % (Manual) 1.0 % (0.0-7.3) 12/19/21 05:00 Eosinophils % (Manual) 0 % (0.0-4.3) 12/19/21 05:00 Basophils % (Manual) 0 % (0.0-1.8) 12/19/21 05:00 Metamyelocytes % 2.0 % 12/19/21 05:00 Myelocytes % 0 % 12/19/21 05:00 Promyelocytes % 0 % 12/19/21 05:00 Blast Cells % 0 % 12/19/21 05:00 Nucleated RBC % Not Reportable 12/19/21 05:00 Seg Neutrophils # 10.9 K/mm3 (1.8-7.7) H 12/17/21 04:00 Seg Neutrophils # Man 17.6 K/mm3 (1.8-7.7) H 12/19/21 05:00 Band Neutrophils # 0.4 K/mm3 12/19/21 05:00 Lymphocytes # (Manual) 0.4 K/mm3 (1.2-5.4) L 12/19/21 05:00 Abs React Lymphs (Man) 0.0 K/mm3 12/19/21 05:00 Monocytes # (Manual) 0.2 K/mm3 (0.0-0.8) 12/19/21 05:00 Eosinophils # (Manual) 0.0 K/mm3 (0.0-0.4) 12/19/21 05:00 Basophils # (Manual) 0.0 K/mm3 (0.0-0.1) 12/19/21 05:00 Metamyelocytes # 0.4 K/mm3 12/19/21 05:00 Myelocytes # 0.0 K/mm3 12/19/21 05:00 Promyelocytes # 0.0 K/mm3 12/19/21 05:00 Blast Cells # 0.0 K/mm3 12/19/21 05:00 WBC Morphology Not Reportable 12/19/21 05:00 Hypersegmented Neuts Not Reportable 12/19/21 05:00 Hyposegmented Neuts 1+ 12/19/21 05:00 Hypogranular Neuts Not Reportable 12/19/21 05:00 Smudge Cells Not Reportable 12/19/21 05:00 Toxic Granulation Not Reportable 12/19/21 05:00 Toxic Vacuolation Not Reportable 12/19/21 05:00 Dohle Bodies Not Reportable 12/19/21 05:00 Pelger-Huet Anomaly Not Reportable 12/19/21 05:00 Charles Rods Not Reportable 12/19/21 05:00 Platelet Estimate Consistent w auto 12/19/21 05:00 Clumped Platelets Not Reportable 12/19/21 05:00 Plt Clumps, EDTA Not Reportable 12/19/21 05:00 Large Platelets Not Reportable 12/19/21 05:00 Giant Platelets Not Reportable 12/19/21 05:00 Platelet Satelliting Not Reportable 12/19/21 05:00 Plt Morphology Comment Not Reportable 12/19/21 05:00 RBC Morphology Not Reportable 12/19/21 05:00 Dimorphic RBCs Not Reportable 12/19/21 05:00 Polychromasia Not Reportable 12/19/21 05:00 Hypochromasia 1+ 12/19/21 05:00 Poikilocytosis Few 12/19/21 05:00 Anisocytosis Few 12/19/21 05:00 Microcytosis Not Reportable 12/19/21 05:00 Macrocytosis Not Reportable 12/19/21 05:00 Spherocytes Not Reportable 12/19/21 05:00 Pappenheimer Bodies Not Reportable 12/19/21 05:00 Sickle Cells Not Reportable 12/19/21 05:00 Target Cells Rare 12/19/21 05:00 Tear Drop Cells Not Reportable 12/19/21 05:00 Ovalocytes Rare 12/19/21 05:00 Helmet Cells Not Reportable 12/19/21 05:00 Murphy-Grygla Bodies Not Reportable 12/19/21 05:00 Cumming Rings Not Reportable 12/19/21 05:00 [place] Cells Not Reportable 12/19/21 05:00 Bite Cells Not Reportable 12/19/21 05:00 Crenated Cell Not Reportable 12/19/21 05:00 Elliptocytes Not Reportable 12/19/21 05:00 Acanthocytes (Spur) Not Reportable 12/19/21 05:00 Rouleaux Rare 12/19/21 05:00 Hemoglobin C Crystals Not Reportable 12/19/21 05:00 Schistocytes Rare 12/19/21 05:00 Malaria parasites Not Reportable 12/19/21 05:00 Percent Retic 0.37 % (0.78-2.58) L 12/18/21 05:00 Bryson Bodies Not Reportable 12/19/21 05:00 Hem Pathologist Commnt Not Reportable 12/19/21 05:00 PT 17.4 Sec. (12.2-14.9) H 12/17/21 18:32 INR 1.27 (0.87-1.13) H 12/17/21 18:32 Fibrinogen 481 mg/dl (211-480) H 12/18/21 05:00 ABG pH 7.383 pH Units (7.350-7.450) 12/18/21 20:00 ABG pCO2 45.6 mm Hg 12/18/21 20:00 ABG pO2 62.5 mm Hg (80.0-90.0) L 12/18/21 20:00 ABG HCO3 26.6 mmol/L (20.0-26.0) H 12/18/21 20:00 ABG O2 Saturation 91.7 % (95.0-99.0) L 12/18/21 20:00 ABG O2 Content 10.7 (0.0-44) 12/18/21 20:00 ABG Base Excess 1.3 mmol/L (-2.0-3.0) 12/18/21 20:00 ABG Hemoglobin 8.4 gm/dl (12.0-16.0) L 12/18/21 20:00 ABG Carboxyhemoglobin 1.7 % (0.0-5.0) 12/18/21 20:00 ABG Methemoglobin 0.3 % (0.0-1.5) 12/18/21 20:00 VBG pO2 > 258.0 (25.0-47.0) H 12/15/21 19:50 Oxyhemoglobin 89.9 % (95.0-99.0) L 12/18/21 20:00 FiO2 30 % 12/18/21 20:00 Sodium 135 mmol/L (137-145) L 12/20/21 04:45 Potassium 4.2 mmol/L (3.6-5.0) 12/20/21 04:45 Chloride 96.1 mmol/L (98-107) L 12/20/21 04:45 Carbon Dioxide 22 mmol/L (22-30) 12/20/21 04:45 Anion Gap 21 mmol/L 12/20/21 04:45 BUN 48 mg/dL (7-17) H 12/20/21 04:45 Creatinine 3.9 mg/dL (0.6-1.2) H 12/20/21 04:45 Estimated GFR 14 ml/min 12/20/21 04:45 BUN/Creatinine Ratio 12 % 12/20/21 04:45 Glucose 188 mg/dL (65-100) H 12/20/21 04:45 POC Glucose 169 mg/dL (70-105) H 12/20/21 05:07 Lactic Acid 1.90 mmol/L (0.7-2.0) 12/16/21 05:00 Calcium 8.1 mg/dL (8.4-10.2) L 12/20/21 04:45 Phosphorus 4.50 mg/dL (2.5-4.5) D 12/19/21 21:19 Magnesium 2.10 mg/dL (1.7-2.3) 12/18/21 12:00 Iron 13 ug/dL (37-170) L 12/18/21 05:00 TIBC 109 mcg/dL (250-450) L 12/18/21 05:00 Ferritin 383.4 ng/mL (10.0-200.0) H 12/18/21 05:00 Total Bilirubin 0.60 mg/dL (0.1-1.2) 12/11/21 15:40 AST 22 units/L (5-40) 12/11/21 15:40 ALT 13 units/L (7-56) 12/11/21 15:40 Alkaline Phosphatase 237 units/L (35-129) H 12/11/21 15:40 Lactate Dehydrogenase 154 units/L (91-180) 12/18/21 05:00 Troponin T 0.175 ng/mL (0.00-0.029) H* 12/12/21 04:43 C-Reactive Protein 38.50 mg/dL (0.00-1.30) H 12/15/21 14:40 Total Protein 7.4 g/dL (6.3-8.2) 12/11/21 15:40 Albumin 3.6 g/dL (3.9-5) L 12/11/21 15:40 Albumin/Globulin Ratio 0.9 % 12/11/21 15:40 Triglycerides 92 mg/dL (2-149) 12/11/21 15:40 Cholesterol 72 mg/dL (50-199) 12/11/21 15:40 LDL Cholesterol Direct 16 mg/dL (50-130) L 12/11/21 15:40 HDL Cholesterol 41 mg/dL (40-59) 12/11/21 15:40 Cholesterol/HDL Ratio 1.75 % 12/11/21 15:40 Procalcitonin 46.16 ng/mL (<0.15) 12/15/21 04:11 Random Vancomycin 15.6 ug/mL (0-40.0) 12/16/21 05:00 Blood Type O POSITIVE 12/17/21 09:30 Antibody Screen Negative 12/17/21 09:30 Microbiology: Microbiology 12/16/21 10:03 Peripheral/Venous Blood Culture - Preliminary NO GROWTH AFTER 72 HOURS 12/16/21 09:57 Peripheral/Venous Blood Culture - Preliminary NO GROWTH AFTER 72 HOURS Active Medications - Current Medications Current Medications: Generic Name Dose Route Start Last Admin Trade Name Freq PRN Reason Stop Dose Admin Acetaminophen 650 mg 12/13/21 23:00 12/13/21 23:18 Acetaminophen 650 Mg Rect Supp OH 650 mg Q4H PRN Administration Pain, Mild (1-3) Albuterol 2.5 mg 12/11/21 22:14 Albuterol 2.5 Mg/3 Ml Nebu IH Q6HR PRN Wheezing Albuterol/Ipratropium 1 ampul 12/14/21 08:00 12/19/21 19:59 Ipratropium/Albuterol Sulfate 3 Ml Ampul.Neb IH 1 ampul TIDRT KRISTA Administration Lipase/Protease/Amylase 1 each 12/16/21 11:15 Lipase 10,500/Protease 25,000/Amylase 43,750 (Units) Dr Blanco FEEDTUBE PRN PRN For Clogged Feeding Tube Aspirin 81 mg 12/15/21 10:00 12/19/21 09:52 Aspirin 81 Mg Tab Chew FEEDTUBE 81 mg QDAY KRISTA Administration Atorvastatin Calcium 80 mg 12/15/21 22:00 12/19/21 21:27 Atorvastatin 40 Mg Tab FEEDTUBE 80 mg QHS KRISTA Administration Budesonide 0.5 mg 12/13/21 08:00 12/19/21 19:59 Budesonide 0.5 Mg/2 Ml Nebu IH 0.5 mg Q12HRT KRISTA Administration Dextrose 50 ml 12/11/21 22:23 12/16/21 06:24 Dextrose 50% In Water (25gm) 50 Ml Syringe IV 15 ml Q30MIN PRN Administration Hypoglycemia Protocol Famotidine 10 mg 12/15/21 22:00 12/19/21 21:27 Famotidine 10 Mg Tab FEEDTUBE 10 mg BID KRISTA Administration Fentanyl 50 mcg 12/15/21 17:19 12/15/21 17:58 Fentanyl 100 Mcg/2 Ml Inj IV 50 mcg Q10MIN PRN Administration ANALGESIA Hydrophilic Ointment 1 applic 12/16/21 14:30 Lip Therapy Vaseline TP Q2HR PRN Dry Lips Sodium Chloride 100 mls @ 999 mls/hr 12/12/21 12:00 Nacl 0.9% IV ABEL PRN Hypotension NORepinephrine/NS 8 MG-250 ML 8 mg in 250 mls @ 3.75 mls/hr 12/14/21 23:00 12/18/21 19:02 Norepinephrine/Ns 8 Mg-250 Ml (Double Conc) IV 0 mcg/min TITRATE KRISTA 0 mls/hr Titration Protocol 2 MCG/MIN Fentanyl Citrate 2,000 mcg in 100 mls @ 2.945 mls/hr 12/15/21 18:00 12/19/21 18:28 Fentanyl Drip Premix IV 0 mcg/kg/hr TITR KRISTA 0 mls/hr Titration Protocol 1 MCG/KG/HR Vasopressin 20 unit/ Sodium 101 mls @ 9.09 mls/hr 12/16/21 10:00 12/17/21 18:27 Chloride IV 0 units/min TITR KRISTA 0 mls/hr Titration Protocol 0.03 UNITS/MIN Ceftriaxone Sodium 2 gm in 100 mls @ 200 mls/hr 12/16/21 15:00 12/19/21 14:13 Rocephin/Ns 2 Gm/100 Ml IV 12/29/21 15:29 200 mls/hr Q24H KRISTA Administration Protocol Ferric Sodium Gluconate 110 mls @ 100 mls/hr 12/18/21 11:00 12/19/21 09:52 Complex 125 mg/ Sodium IV 12/21/21 23:59 100 mls/hr Chloride DAILY KRISTA Administration Insulin Human Lispro 0 unit 12/15/21 12:00 12/19/21 18:28 Insulin Lispro 100 Unit/Ml SUB-Q Not Given Q6HR KRISTA Protocol Levetiracetam 500 mg 12/16/21 18:00 12/18/21 18:08 Levetiracetam 500 Mg/5 Ml Oral Liqd FEEDTUBE 500 mg TuThSa KRISTA Administration Methylprednisolone Sodium Succinate 60 mg 12/18/21 22:00 12/19/21 21:28 Methylprednisolone Sod Succinate 125 Mg/2 Ml Inj IV 12/21/21 21:59 60 mg Q12HR KRISTA Administration Metoclopramide HCl 5 mg 12/19/21 10:00 12/20/21 04:45 Metoclopramide 10 Mg/2 Ml Inj IV 12/21/21 09:59 5 mg Q6H KRISTA Administration Midodrine 10 mg 12/15/21 12:00 12/19/21 15:54 Midodrine 10 Mg Tab FEEDTUBE 10 mg TID@0800,1200,1600 KRISTA Administration Morphine Sulfate 2 mg 12/11/21 22:11 Morphine 4 Mg/1 Ml Inj IV Q5MIN PRN Chest Pain unrelieved by NTG Multi-Ingred Cream/Lotion/Oil/Oint 1 applic 12/16/21 14:10 Mineral Oil/Petrolatum, White Ophth Oint 3.5 Gm OU Q4HR PRN Dry Eye(s) Nitroglycerin 0.4 mg 12/11/21 22:11 Nitroglycerin 0.4 Mg Tab Subl SL Q5M PRN Chest Pain Senna/Docusate Sodium 1 tab 12/16/21 22:00 12/19/21 21:27 Sennosides/Docusate Sodium 8.6/50 Mg Tab FEEDTUBE 1 tab BID KRISTA Administration Simple Syrup 15 ml 12/16/21 11:15 Simple Syrup 15 Ml FEEDTUBE PRN PRN Hypoglycemia Simple Syrup 30 ml 12/16/21 11:15 Simple Syrup 15 Ml FEEDTUBE PRN PRN Hypoglycemia Sodium Bicarbonate 325 mg 12/16/21 11:15 Sodium Bicarbonate 325 Mg Tab FEEDTUBE PRN PRN For Clogged Feeding Tube Sodium Chloride 10 ml 12/11/21 22:11 12/19/21 09:51 Sodium Chloride 0.9% 10 Ml Flush Syringe IV 10 ml PRN PRN Administration LINE FLUSH Nutrition/Malnutrition Assess - Dietary Evaluation Nutrition/Malnutrition Findings: Nutrition Notes Start: 12/12/21 11:57 Freq: Status: Active Protocol: Document 12/19/21 17:08 EVERARDO (Rec: 12/19/21 17:19 EVERARDO [id number]) Nutrition Notes Initial or Follow up Brief Note Current Diagnosis CKD (stage V CKD),Diabetes, Sepsis,Hypertension, Respiratory Failure Other Pertinent Diagnosis CKD+HD, Hypotension, GPC Bacteremia, s/p Fall, ... Current Diet TF-Nepro w/CARBSTEADY @ 30 ml/ hr (from L 12/17). Height 4 ft 11 in Weight 66.5 kg Alba Body Weight (kg) 43.18 BMI 29.6 Weight change and time frame 7.6 Kg body weight gain in 3 days reported. Weight Status Overweight Subjective/Other Information RD consult for routine F/U on TF tolerance assessment. TF continues as prescribed, TF restarted after belching episode. Will continue to monitor at F/U. RN Note on 12/19/21 09:29: 0730-Upon assessment of patient tube feedings noted to still be held at this time. Gastric residuals checked and contained 40cc of dark green bile. Patient had a small belching episode while assessment and oral care was going on. FIELD MECH[employer]IC made aware. Tube feeds to remain held at this time. Pending xray results of stomach. Reglan to be given ( See MAR). Addendum entered by FRED VIVEROS RN 12/19/21 09:52: 0950-FIELD MECH[employer]IC okayed to restart tube feeds at low rate (10cc/hr) for goal of 30 cc/ hr. Percent of energy/protein needs met: Prescribed TF-Nepro w/ CARBSTEADY @ 30 ml/hr provides for energy/protein needs (1, 296 Kcal/58 g) during LOS, 103 % Kcal; 82% AA. #1 Nutrition Diagnosis Inadequate oral intake Diagnosis Progress(for reassessment Continues documentation) Nutrition Intervention Nutrition Support: Continue TF-Nepro w/CARBSTEADY @ 30 ml/hr. Flush: 130 ml water Q 4 hr, or as per MD. Kcal 1,269 Protein (gm) 58 Carbohydrates (gm) 116 Fat (gm) 69 Fluid (mL) 523 Fiber (gm) 9 % RDI: 103% Kcal; 82% AA. Goal #1 Provide at least 75% of energy /protein needs through Enteral Feeding during LOS. Goal #2 Maintain body weight within +/ -3% of admission body weight during LOS. Follow-Up By: 12/22/21 Additional Comments Continue monitoring TF tolerance and BM.
--- NOTE | 2021-12-19 13:53 | Progress Note ---
Assessment and Plan Septic shock Bacteremia with gram-positive cocci End-stage renal disease on dialysis Acute toxic metabolic encephalopathy Non-ST elevation myocardial infarction A-Fib with RVR Hypertension Diabetes type 2 Anemia that is normocytic (AMS is the rate limiting factor for safe extubation so far) - will get EEG & repeat CT brain in light of worsening thrombocytopenia (? bleed) - stop all sedating medications - continue daytime SBT's as tolerated - repeat ABG at 9pm tonight if still on SBT - wound care per RN / WCN - prn vasopressors for target MAP > 65 mmHg - continue Solumedrol 60 mg IV bid - follow HIT assay - continue care as below otherwise; - Daily SAT and SBT assessment as tolerated - continue to wean supplemental oxygen for target O2 sat's > 90% acutely - VAP bundle addressed - continue lung protective strategies - continue bronchodilators with pulmonary hygiene per RT - wean per pulmonary driven protocols otherwise - continue HD/UF for toxin and volume clearance - avoid nephrotoxins, renally dose all medications - continue to avoid benzodiazepine's, reduce the possibility of delirium - complete AB's per ID rec's (On Rocephin) - prn analgesia per CPOT score - Maintenance of sleep-wake cycle, avoid delirium - continue enteral nutritional support at goal rate as tolerated - G.I. & VTE prophylaxis - PT/OT/ROM exercises - continue mobility protocols for pressure ulcer prophylaxis - Monitor hemodynamics closely - continue other care per attending / other consultants - discharge planning ongoing concurrently .... Re-evaluate in am & prn CONDITION: CRITICAL PROGNOSIS: GUARDED CODE STATUS: FULL CODE The high probability of a clinically significant, sudden or life-threatening deterioration of the [respiratory, cardiovascular, renal & neurologic] system(s) required my full and direct attention, intervention and personal management. The aggregate critical care time was [36] minutes without overlap. Time includes spent on; [x] Data Review and interpretation [x] Patient assessment and monitoring of vital signs [x] Documentation [x] Medication orders and management Subjective Date of service: 12/19/21 Principal diagnosis: Septic shock ; Bacteremia; ESRD on dialysis; AMS; NSTEMI; HTN; DM II Interval history: Patient is seen today for: Septic shock ; gm +ve Bacteremia; ESRD on dialysis; AMS; NSTEMI; Hypertension; DM II Seen and examined at bedside; 24hour events reviewed; nursing and respiratory care staff consulted; no adverse overnight events reported to me; resting peacefully in bed; now of Levophed; AMS is persistent with only slight improvement; she is tolerating SBT very well though today and her ABG yesterday showed good ventilation Objective Vital Signs - 12hr 12/19/21 12/19/21 12/19/21 02:00 02:15 02:30 Temperature Pulse Rate 63 62 62 Pulse Rate [ Anterior Bilateral Throughout] Pulse Rate [ From Monitor] Respiratory 12 12 Rate Respiratory Rate [Anterior Bilateral Throughout] Blood Pressure 106/49 103/56 105/47 O2 Sat by Pulse 100 100 100 Oximetry 12/19/21 12/19/21 12/19/21 02:45 03:00 03:15 Temperature Pulse Rate 66 62 63 Pulse Rate [ Anterior Bilateral Throughout] Pulse Rate [ From Monitor] Respiratory 07 27 12 Rate Respiratory Rate [Anterior Bilateral Throughout] Blood Pressure 108/54 98/42 109/49 O2 Sat by Pulse 100 100 100 Oximetry 12/19/21 12/19/21 12/19/21 03:30 03:45 03:53 Temperature 97.2 F L Pulse Rate 63 62 Pulse Rate [ Anterior Bilateral Throughout] Pulse Rate [ From Monitor] Respiratory 13 Rate Respiratory Rate [Anterior Bilateral Throughout] Blood Pressure 109/49 109/49 O2 Sat by Pulse 100 100 Oximetry 12/19/21 12/19/21 12/19/21 04:00 04:12 04:15 Temperature 97.1 F L Pulse Rate 62 62 63 Pulse Rate [ Anterior Bilateral Throughout] Pulse Rate [ 60 From Monitor] Respiratory 12 Rate Respiratory Rate [Anterior Bilateral Throughout] Blood Pressure 101/50 108/53 108/53 O2 Sat by Pulse 100 100 100 Oximetry 12/19/21 12/19/21 12/19/21 04:30 04:45 05:00 Temperature Pulse Rate 62 58 L 67 Pulse Rate [ Anterior Bilateral Throughout] Pulse Rate [ From Monitor] Respiratory 14 13 Rate Respiratory Rate [Anterior Bilateral Throughout] Blood Pressure 107/54 103/49 113/59 O2 Sat by Pulse 100 100 100 Oximetry 12/19/21 12/19/21 12/19/21 05:16 05:30 05:46 Temperature Pulse Rate 61 60 59 L Pulse Rate [ Anterior Bilateral Throughout] Pulse Rate [ From Monitor] Respiratory 12 14 Rate Respiratory Rate [Anterior Bilateral Throughout] Blood Pressure 117/52 115/56 112/55 O2 Sat by Pulse 100 100 100 Oximetry 12/19/21 12/19/21 12/19/21 06:00 06:15 06:30 Temperature Pulse Rate 60 62 62 Pulse Rate [ Anterior Bilateral Throughout] Pulse Rate [ From Monitor] Respiratory 12 12 13 Rate Respiratory Rate [Anterior Bilateral Throughout] Blood Pressure 110/53 112/59 127/55 O2 Sat by Pulse 100 100 100 Oximetry 12/19/21 12/19/21 12/19/21 06:45 07:00 07:15 Temperature Pulse Rate 62 60 61 Pulse Rate [ Anterior Bilateral Throughout] Pulse Rate [ From Monitor] Respiratory 11 L 12 12 Rate Respiratory Rate [Anterior Bilateral Throughout] Blood Pressure 136/58 113/62 121/59 O2 Sat by Pulse 100 100 100 Oximetry 12/19/21 12/19/21 12/19/21 07:30 07:45 08:00 Temperature 98.9 F Pulse Rate 61 63 63 Pulse Rate [ Anterior Bilateral Throughout] Pulse Rate [ 63 From Monitor] Respiratory 12 12 14 Rate Respiratory Rate [Anterior Bilateral Throughout] Blood Pressure 120/57 120/57 120/73 O2 Sat by Pulse 100 100 100 Oximetry 12/19/21 12/19/21 12/19/21 08:06 08:07 08:15 Temperature Pulse Rate 663 H 70 Pulse Rate [ 63 Anterior Bilateral Throughout] Pulse Rate [ From Monitor] Respiratory 13 Rate Respiratory 13 Rate [Anterior Bilateral Throughout] Blood Pressure 120/73 120/73 O2 Sat by Pulse 100 100 Oximetry 12/19/21 12/19/21 12/19/21 08:23 08:25 08:27 Temperature Pulse Rate 68 65 63 Pulse Rate [ Anterior Bilateral Throughout] Pulse Rate [ From Monitor] Respiratory 13 14 14 Rate Respiratory Rate [Anterior Bilateral Throughout] Blood Pressure 129/73 129/73 129/73 O2 Sat by Pulse 100 100 100 Oximetry 12/19/21 12/19/21 12/19/21 08:29 08:30 08:31 Temperature Pulse Rate 63 63 65 Pulse Rate [ Anterior Bilateral Throughout] Pulse Rate [ From Monitor] Respiratory 11 L 13 12 Rate Respiratory Rate [Anterior Bilateral Throughout] Blood Pressure 129/73 129/73 129/73 O2 Sat by Pulse 100 100 100 Oximetry 12/19/21 12/19/21 12/19/21 08:33 08:35 08:37 Temperature Pulse Rate 65 66 69 Pulse Rate [ Anterior Bilateral Throughout] Pulse Rate [ From Monitor] Respiratory 13 16 13 Rate Respiratory Rate [Anterior Bilateral Throughout] Blood Pressure 129/73 129/73 129/73 O2 Sat by Pulse 100 100 100 Oximetry 12/19/21 12/19/21 12/19/21 08:39 08:41 08:43 Temperature Pulse Rate 72 85 84 Pulse Rate [ Anterior Bilateral Throughout] Pulse Rate [ From Monitor] Respiratory 14 14 13 Rate Respiratory Rate [Anterior Bilateral Throughout] Blood Pressure 129/73 129/73 129/73 O2 Sat by Pulse 100 88 97 Oximetry 12/19/21 12/19/21 12/19/21 08:45 08:47 08:49 Temperature Pulse Rate 82 83 76 Pulse Rate [ Anterior Bilateral Throughout] Pulse Rate [ From Monitor] Respiratory 15 15 15 Rate Respiratory Rate [Anterior Bilateral Throughout] Blood Pressure 129/73 151/83 151/83 O2 Sat by Pulse 99 96 100 Oximetry 12/19/21 12/19/21 12/19/21 08:51 08:53 08:55 Temperature Pulse Rate 74 77 81 Pulse Rate [ Anterior Bilateral Throughout] Pulse Rate [ From Monitor] Respiratory 13 11 L 13 Rate Respiratory Rate [Anterior Bilateral Throughout] Blood Pressure 151/83 151/83 151/83 O2 Sat by Pulse 100 100 100 Oximetry 12/19/21 12/19/21 12/19/21 08:57 08:59 09:01 Temperature Pulse Rate 82 73 70 Pulse Rate [ Anterior Bilateral Throughout] Pulse Rate [ From Monitor] Respiratory 16 17 11 L Rate Respiratory Rate [Anterior Bilateral Throughout] Blood Pressure 151/83 151/83 120/33 O2 Sat by Pulse 93 99 100 Oximetry 12/19/21 12/19/21 12/19/21 09:03 09:05 09:07 Temperature Pulse Rate 70 71 69 Pulse Rate [ Anterior Bilateral Throughout] Pulse Rate [ From Monitor] Respiratory 9 L 10 L 11 L Rate Respiratory Rate [Anterior Bilateral Throughout] Blood Pressure 120/33 120/33 120/33 O2 Sat by Pulse 92 94 99 Oximetry 12/19/21 12/19/21 12/19/21 09:09 09:11 09:13 Temperature Pulse Rate 70 69 67 Pulse Rate [ Anterior Bilateral Throughout] Pulse Rate [ From Monitor] Respiratory 12 12 12 Rate Respiratory Rate [Anterior Bilateral Throughout] Blood Pressure 120/33 120/33 120/33 O2 Sat by Pulse 99 99 98 Oximetry 12/19/21 12/19/21 12/19/21 09:15 09:17 09:19 Temperature Pulse Rate 67 65 64 Pulse Rate [ Anterior Bilateral Throughout] Pulse Rate [ From Monitor] Respiratory 12 12 8 L Rate Respiratory Rate [Anterior Bilateral Throughout] Blood Pressure 120/60 120/60 120/60 O2 Sat by Pulse 100 100 100 Oximetry 12/19/21 12/19/21 12/19/21 09:20 09:21 09:23 Temperature Pulse Rate 72 72 72 Pulse Rate [ Anterior Bilateral Throughout] Pulse Rate [ From Monitor] Respiratory 8 L 7 L 11 L Rate Respiratory Rate [Anterior Bilateral Throughout] Blood Pressure 120/60 120/60 O2 Sat by Pulse 100 100 100 Oximetry 12/19/21 12/19/21 12/19/21 09:25 09:27 09:29 Temperature Pulse Rate 78 68 65 Pulse Rate [ Anterior Bilateral Throughout] Pulse Rate [ From Monitor] Respiratory 17 8 L 9 L Rate Respiratory Rate [Anterior Bilateral Throughout] Blood Pressure 120/60 120/60 120/60 O2 Sat by Pulse 100 100 Oximetry 12/19/21 12/19/21 12/19/21 09:30 09:31 09:33 Temperature Pulse Rate 67 68 66 Pulse Rate [ Anterior Bilateral Throughout] Pulse Rate [ From Monitor] Respiratory 10 L 9 L 8 L Rate Respiratory Rate [Anterior Bilateral Throughout] Blood Pressure 118/64 118/64 118/64 O2 Sat by Pulse 100 100 100 Oximetry 12/19/21 12/19/21 12/19/21 09:35 09:37 09:39 Temperature Pulse Rate 66 65 66 Pulse Rate [ Anterior Bilateral Throughout] Pulse Rate [ From Monitor] Respiratory 7 L 8 L 9 L Rate Respiratory Rate [Anterior Bilateral Throughout] Blood Pressure 118/64 118/64 118/64 O2 Sat by Pulse 100 100 100 Oximetry 12/19/21 12/19/21 12/19/21 09:41 09:43 09:45 Temperature Pulse Rate 65 62 62 Pulse Rate [ Anterior Bilateral Throughout] Pulse Rate [ From Monitor] Respiratory 9 L 8 L 8 L Rate Respiratory Rate [Anterior Bilateral Throughout] Blood Pressure 118/64 118/64 114/61 O2 Sat by Pulse 100 100 100 Oximetry 12/19/21 12/19/21 12/19/21 09:47 09:49 09:51 Temperature Pulse Rate 62 62 62 Pulse Rate [ Anterior Bilateral Throughout] Pulse Rate [ From Monitor] Respiratory 8 L 8 L 9 L Rate Respiratory Rate [Anterior Bilateral Throughout] Blood Pressure 114/61 114/61 114/61 O2 Sat by Pulse 100 100 100 Oximetry 12/19/21 12/19/21 12/19/21 09:53 09:55 09:57 Temperature Pulse Rate 61 60 62 Pulse Rate [ Anterior Bilateral Throughout] Pulse Rate [ From Monitor] Respiratory 10 L 7 L 9 L Rate Respiratory Rate [Anterior Bilateral Throughout] Blood Pressure 114/61 114/61 114/61 O2 Sat by Pulse 100 100 100 Oximetry 12/19/21 12/19/21 12/19/21 09:59 10:00 10:01 Temperature Pulse Rate 65 67 68 Pulse Rate [ Anterior Bilateral Throughout] Pulse Rate [ From Monitor] Respiratory 8 L 9 L 9 L Rate Respiratory Rate [Anterior Bilateral Throughout] Blood Pressure 114/61 122/62 122/62 O2 Sat by Pulse 100 100 100 Oximetry 12/19/21 12/19/21 12/19/21 10:03 10:05 10:07 Temperature Pulse Rate 64 61 61 Pulse Rate [ Anterior Bilateral Throughout] Pulse Rate [ From Monitor] Respiratory 6 L 6 L 8 L Rate Respiratory Rate [Anterior Bilateral Throughout] Blood Pressure 122/62 122/62 122/62 O2 Sat by Pulse 100 100 100 Oximetry 12/19/21 12/19/21 12/19/21 10:09 10:11 10:13 Temperature Pulse Rate 61 59 L 61 Pulse Rate [ Anterior Bilateral Throughout] Pulse Rate [ From Monitor] Respiratory 11 L 6 L 8 L Rate Respiratory Rate [Anterior Bilateral Throughout] Blood Pressure 122/62 122/62 122/62 O2 Sat by Pulse 100 100 100 Oximetry 12/19/21 12/19/21 12/19/21 10:15 10:17 10:19 Temperature Pulse Rate 60 61 62 Pulse Rate [ Anterior Bilateral Throughout] Pulse Rate [ From Monitor] Respiratory 7 L 10 L 7 L Rate Respiratory Rate [Anterior Bilateral Throughout] Blood Pressure 114/63 114/63 114/63 O2 Sat by Pulse 100 100 100 Oximetry 12/19/21 12/19/21 12/19/21 10:21 10:23 10:25 Temperature Pulse Rate 61 62 61 Pulse Rate [ Anterior Bilateral Throughout] Pulse Rate [ From Monitor] Respiratory 8 L 6 L 9 L Rate Respiratory Rate [Anterior Bilateral Throughout] Blood Pressure 114/63 114/63 114/63 O2 Sat by Pulse 100 100 100 Oximetry 12/19/21 12/19/21 12/19/21 10:27 10:29 10:30 Temperature Pulse Rate 62 63 67 Pulse Rate [ Anterior Bilateral Throughout] Pulse Rate [ From Monitor] Respiratory 10 L 7 L 8 L Rate Respiratory Rate [Anterior Bilateral Throughout] Blood Pressure 114/63 114/63 118/55 O2 Sat by Pulse 100 100 100 Oximetry 12/19/21 12/19/21 12/19/21 10:31 10:33 10:35 Temperature Pulse Rate 64 62 62 Pulse Rate [ Anterior Bilateral Throughout] Pulse Rate [ From Monitor] Respiratory 8 L 8 L 8 L Rate Respiratory Rate [Anterior Bilateral Throughout] Blood Pressure 118/55 118/55 118/55 O2 Sat by Pulse 100 100 100 Oximetry 12/19/21 12/19/21 12/19/21 10:37 10:39 10:41 Temperature Pulse Rate 63 62 62 Pulse Rate [ Anterior Bilateral Throughout] Pulse Rate [ From Monitor] Respiratory 7 L 8 L 9 L Rate Respiratory Rate [Anterior Bilateral Throughout] Blood Pressure 118/55 118/55 118/55 O2 Sat by Pulse 100 100 100 Oximetry 12/19/21 12/19/21 12/19/21 10:43 10:45 10:47 Temperature Pulse Rate 62 63 62 Pulse Rate [ Anterior Bilateral Throughout] Pulse Rate [ From Monitor] Respiratory 8 L 8 L 9 L Rate Respiratory Rate [Anterior Bilateral Throughout] Blood Pressure 118/55 127/60 127/60 O2 Sat by Pulse 100 100 100 Oximetry 12/19/21 12/19/21 12/19/21 10:49 10:51 10:53 Temperature Pulse Rate 63 62 62 Pulse Rate [ Anterior Bilateral Throughout] Pulse Rate [ From Monitor] Respiratory 8 L 8 L 8 L Rate Respiratory Rate [Anterior Bilateral Throughout] Blood Pressure 127/60 127/60 127/60 O2 Sat by Pulse 100 100 100 Oximetry 12/19/21 12/19/21 12/19/21 10:55 10:57 10:59 Temperature Pulse Rate 64 62 64 Pulse Rate [ Anterior Bilateral Throughout] Pulse Rate [ From Monitor] Respiratory 8 L 9 L 7 L Rate Respiratory Rate [Anterior Bilateral Throughout] Blood Pressure 127/60 127/60 127/60 O2 Sat by Pulse 100 100 100 Oximetry 12/19/21 12/19/21 12/19/21 11:00 11:01 11:03 Temperature Pulse Rate 64 63 62 Pulse Rate [ Anterior Bilateral Throughout] Pulse Rate [ From Monitor] Respiratory 9 L 8 L 7 L Rate Respiratory Rate [Anterior Bilateral Throughout] Blood Pressure 133/64 133/64 133/64 O2 Sat by Pulse 100 100 100 Oximetry 12/19/21 12/19/21 12/19/21 11:05 11:07 11:09 Temperature Pulse Rate 71 65 64 Pulse Rate [ Anterior Bilateral Throughout] Pulse Rate [ From Monitor] Respiratory 11 L 7 L 8 L Rate Respiratory Rate [Anterior Bilateral Throughout] Blood Pressure 133/64 133/64 133/64 O2 Sat by Pulse 100 100 100 Oximetry 12/19/21 12/19/21 12/19/21 11:11 11:13 11:15 Temperature Pulse Rate 62 65 63 Pulse Rate [ Anterior Bilateral Throughout] Pulse Rate [ From Monitor] Respiratory 8 L 8 L 8 L Rate Respiratory Rate [Anterior Bilateral Throughout] Blood Pressure 133/64 133/64 132/61 O2 Sat by Pulse 100 100 100 Oximetry 12/19/21 12/19/21 12/19/21 11:17 11:19 11:21 Temperature Pulse Rate 67 64 63 Pulse Rate [ Anterior Bilateral Throughout] Pulse Rate [ From Monitor] Respiratory 9 L 8 L 7 L Rate Respiratory Rate [Anterior Bilateral Throughout] Blood Pressure 132/61 132/61 132/61 O2 Sat by Pulse 100 100 100 Oximetry 12/19/21 12/19/21 12/19/21 11:23 11:25 11:27 Temperature Pulse Rate 63 61 61 Pulse Rate [ Anterior Bilateral Throughout] Pulse Rate [ From Monitor] Respiratory 9 L 7 L 7 L Rate Respiratory Rate [Anterior Bilateral Throughout] Blood Pressure 132/61 132/61 132/61 O2 Sat by Pulse 100 100 100 Oximetry 12/19/21 12/19/21 12/19/21 11:29 11:30 11:31 Temperature Pulse Rate 61 62 61 Pulse Rate [ Anterior Bilateral Throughout] Pulse Rate [ From Monitor] Respiratory 6 L 7 L 7 L Rate Respiratory Rate [Anterior Bilateral Throughout] Blood Pressure 132/61 123/66 123/66 O2 Sat by Pulse 100 100 100 Oximetry 12/19/21 12/19/21 12/19/21 11:33 11:35 11:37 Temperature Pulse Rate 61 61 61 Pulse Rate [ Anterior Bilateral Throughout] Pulse Rate [ From Monitor] Respiratory 6 L 8 L 8 L Rate Respiratory Rate [Anterior Bilateral Throughout] Blood Pressure 123/66 123/66 123/66 O2 Sat by Pulse 100 100 100 Oximetry 12/19/21 12/19/21 12/19/21 11:39 11:41 11:43 Temperature 98.3 F Pulse Rate 60 62 62 Pulse Rate [ Anterior Bilateral Throughout] Pulse Rate [ From Monitor] Respiratory 10 L 7 L Rate Respiratory Rate [Anterior Bilateral Throughout] Blood Pressure 123/66 123/66 O2 Sat by Pulse 100 100 Oximetry 12/19/21 12/19/21 11:49 12:00 Temperature Pulse Rate 63 62 Pulse Rate [ Anterior Bilateral Throughout] Pulse Rate [ 61 From Monitor] Respiratory 10 L 7 L Rate Respiratory Rate [Anterior Bilateral Throughout] Blood Pressure 127/64 129/68 O2 Sat by Pulse 100 100 Oximetry Constitutional: no acute distress, other (elderly female with mildly increased respiratory effort at rest) Eyes: non-icteric ENT: oropharynx moist, other (ETT 23 cm JUSTIN) Neck: supple, no JVD Effort: mildly labored Ascultation: Bilateral: rhonchi (scant) Percussion: Bilateral: not dull Cardiovascular: regular rate and rhythm Gastrointestinal: normoactive bowel sounds, soft, non-tender, non-distended (protuberant) Integumentary: rash (right groin / ? scar), other (Left upper extremity AV graft; right forearm blisters (open and closed) and induration; no pus) Extremities: no cyanosis, pulses normal, no ischemia or petechiae, edema (right upper extremity) Neurologic: non-focal exam (grossly), pupils equal and round, unable to assess Psychiatric: other (unable to assess re: AMS) CBC and BMP: 12/19/21 05:00 12/19/21 05:00 ABG, PT/INR, D-dimer: ABG ABG pH 7.383 pH Units (7.350-7.450) 12/18/21 20:00 ABG pCO2 45.6 mm Hg 12/18/21 20:00 ABG pO2 62.5 mm Hg (80.0-90.0) L 12/18/21 20:00 ABG O2 Saturation 91.7 % (95.0-99.0) L 12/18/21 20:00 PT/INR, D-dimer PT 17.4 Sec. (12.2-14.9) H 12/17/21 18:32 INR 1.27 (0.87-1.13) H 12/17/21 18:32 Abnormal lab findings: Abnormal Labs 12/11/21 12/11/21 12/12/21 14:52 15:40 04:43 WBC RBC 3.57 L Hgb 9.4 L Hct 29.5 L MCH 26 L 27 L RDW 17.8 H 17.9 H Plt Count 119 L 110 L Lymph % (Auto) 4.0 L Lymph # (Auto) 0.3 L Seg Neutrophils % 90.0 H Seg Neuts % (Manual) Lymphocytes % (Manual) Monocytes % (Manual) Nucleated RBC % Seg Neutrophils # Seg Neutrophils # Man Lymphocytes # (Manual) Percent Retic PT INR Fibrinogen ABG pH ABG pO2 ABG HCO3 ABG O2 Saturation ABG Base Excess ABG Hemoglobin VBG pO2 Oxyhemoglobin Sodium Potassium Chloride Carbon Dioxide 18 L BUN 76 H Creatinine 9.2 H Glucose POC Glucose Lactic Acid Calcium 7.7 L Phosphorus Magnesium Iron TIBC Ferritin Alkaline Phosphatase 237 H Troponin T 0.168 H* C-Reactive Protein Albumin 3.6 L LDL Cholesterol Direct 16 L 12/12/21 12/12/21 12/12/21 04:43 04:43 08:49 WBC RBC Hgb Hct MCH RDW Plt Count Lymph % (Auto) Lymph # (Auto) Seg Neutrophils % Seg Neuts % (Manual) Lymphocytes % (Manual) Monocytes % (Manual) Nucleated RBC % Seg Neutrophils # Seg Neutrophils # Man Lymphocytes # (Manual) Percent Retic PT INR Fibrinogen ABG pH ABG pO2 ABG HCO3 ABG O2 Saturation ABG Base Excess ABG Hemoglobin VBG pO2 Oxyhemoglobin Sodium 136 L Potassium Chloride 96.0 L Carbon Dioxide BUN 85 H Creatinine 9.6 H Glucose 57 L POC Glucose 47 L Lactic Acid Calcium 7.8 L Phosphorus Magnesium Iron TIBC Ferritin Alkaline Phosphatase Troponin T 0.175 H* C-Reactive Protein Albumin LDL Cholesterol Direct 12/12/21 12/13/21 12/13/21 11:12 07:30 07:30 WBC RBC Hgb 9.7 L Hct 30.0 L MCH 27 L RDW 18.0 H Plt Count 99 L Lymph % (Auto) 4.8 L Lymph # (Auto) 0.3 L Seg Neutrophils % 88.2 H Seg Neuts % (Manual) Lymphocytes % (Manual) Monocytes % (Manual) Nucleated RBC % Seg Neutrophils # Seg Neutrophils # Man Lymphocytes # (Manual) Percent Retic PT INR Fibrinogen ABG pH ABG pO2 ABG HCO3 ABG O2 Saturation ABG Base Excess ABG Hemoglobin VBG pO2 Oxyhemoglobin Sodium Potassium 5.1 H Chloride 97.8 L Carbon Dioxide 16 L BUN 92 H Creatinine 10.6 H Glucose 121 H POC Glucose 64 L Lactic Acid Calcium 7.6 L Phosphorus Magnesium Iron TIBC Ferritin Alkaline Phosphatase Troponin T C-Reactive Protein Albumin LDL Cholesterol Direct 12/13/21 12/13/21 12/13/21 08:06 11:32 16:59 WBC RBC Hgb Hct MCH RDW Plt Count Lymph % (Auto) Lymph # (Auto) Seg Neutrophils % Seg Neuts % (Manual) Lymphocytes % (Manual) Monocytes % (Manual) Nucleated RBC % Seg Neutrophils # Seg Neutrophils # Man Lymphocytes # (Manual) Percent Retic PT INR Fibrinogen ABG pH ABG pO2 ABG HCO3 ABG O2 Saturation ABG Base Excess ABG Hemoglobin VBG pO2 Oxyhemoglobin Sodium Potassium Chloride Carbon Dioxide BUN Creatinine Glucose POC Glucose 118 H 128 H 130 H Lactic Acid Calcium Phosphorus Magnesium Iron TIBC Ferritin Alkaline Phosphatase Troponin T C-Reactive Protein Albumin LDL Cholesterol Direct 12/13/21 12/14/21 12/14/21 20:16 11:10 11:10 WBC RBC Hgb 9.9 L Hct MCH 27 L RDW 18.1 H Plt Count 82 L Lymph % (Auto) 5.8 L Lymph # (Auto) 0.4 L Seg Neutrophils % 88.3 H Seg Neuts % (Manual) Lymphocytes % (Manual) Monocytes % (Manual) Nucleated RBC % Seg Neutrophils # Seg Neutrophils # Man Lymphocytes # (Manual) Percent Retic PT INR Fibrinogen ABG pH ABG pO2 ABG HCO3 ABG O2 Saturation ABG Base Excess ABG Hemoglobin VBG pO2 Oxyhemoglobin Sodium Potassium Chloride Carbon Dioxide 21 L BUN 57 H Creatinine 7.1 H Glucose 105 H POC Glucose 113 H Lactic Acid Calcium Phosphorus Magnesium Iron TIBC Ferritin Alkaline Phosphatase Troponin T C-Reactive Protein Albumin LDL Cholesterol Direct 12/14/21 12/14/21 12/15/21 11:46 16:41 04:11 WBC RBC Hgb 9.9 L Hct 30.0 L MCH 27 L RDW 18.4 H Plt Count 57 L Lymph % (Auto) Lymph # (Auto) Seg Neutrophils % Seg Neuts % (Manual) Lymphocytes % (Manual) 9.0 L Monocytes % (Manual) 10.0 H Nucleated RBC % Seg Neutrophils # Seg Neutrophils # Man Lymphocytes # (Manual) 0.6 L Percent Retic PT INR Fibrinogen ABG pH ABG pO2 ABG HCO3 ABG O2 Saturation ABG Base Excess ABG Hemoglobin VBG pO2 Oxyhemoglobin Sodium Potassium Chloride Carbon Dioxide BUN Creatinine Glucose POC Glucose 108 H 111 H Lactic Acid Calcium Phosphorus Magnesium Iron TIBC Ferritin Alkaline Phosphatase Troponin T C-Reactive Protein Albumin LDL Cholesterol Direct 12/15/21 12/15/21 12/15/21 04:11 08:48 10:02 WBC RBC Hgb Hct MCH RDW Plt Count Lymph % (Auto) Lymph # (Auto) Seg Neutrophils % Seg Neuts % (Manual) Lymphocytes % (Manual) Monocytes % (Manual) Nucleated RBC % Seg Neutrophils # Seg Neutrophils # Man Lymphocytes # (Manual) Percent Retic PT INR Fibrinogen ABG pH ABG pO2 ABG HCO3 ABG O2 Saturation ABG Base Excess ABG Hemoglobin VBG pO2 Oxyhemoglobin Sodium Potassium Chloride Carbon Dioxide 19 L BUN 68 H Creatinine 7.6 H Glucose POC Glucose 68 L 65 L Lactic Acid Calcium 8.1 L Phosphorus Magnesium Iron TIBC Ferritin Alkaline Phosphatase Troponin T C-Reactive Protein Albumin LDL Cholesterol Direct 12/15/21 12/15/21 12/15/21 10:20 10:51 14:40 WBC RBC Hgb Hct MCH RDW Plt Count Lymph % (Auto) Lymph # (Auto) Seg Neutrophils % Seg Neuts % (Manual) Lymphocytes % (Manual) Monocytes % (Manual) Nucleated RBC % Seg Neutrophils # Seg Neutrophils # Man Lymphocytes # (Manual) Percent Retic PT INR Fibrinogen ABG pH ABG pO2 ABG HCO3 ABG O2 Saturation ABG Base Excess ABG Hemoglobin VBG pO2 Oxyhemoglobin Sodium Potassium Chloride Carbon Dioxide BUN Creatinine Glucose POC Glucose 59 L 60 L Lactic Acid 2.50 H* Calcium Phosphorus Magnesium Iron TIBC Ferritin Alkaline Phosphatase Troponin T C-Reactive Protein Albumin LDL Cholesterol Direct 12/15/21 12/15/21 12/16/21 14:40 19:50 05:00 WBC 12.4 H RBC Hgb 9.6 L Hct 29.4 L MCH 26 L RDW 18.1 H Plt Count 40 L Lymph % (Auto) Lymph # (Auto) Seg Neutrophils % Seg Neuts % (Manual) 95.0 H Lymphocytes % (Manual) 5.0 L Monocytes % (Manual) Nucleated RBC % Seg Neutrophils # Seg Neutrophils # Man 11.8 H Lymphocytes # (Manual) 0.6 L Percent Retic PT INR Fibrinogen ABG pH ABG pO2 463.3 H ABG HCO3 ABG O2 Saturation 99.6 H ABG Base Excess ABG Hemoglobin 10.9 L VBG pO2 > 258.0 H Oxyhemoglobin Sodium Potassium Chloride Carbon Dioxide BUN Creatinine Glucose POC Glucose Lactic Acid Calcium Phosphorus Magnesium Iron TIBC Ferritin Alkaline Phosphatase Troponin T C-Reactive Protein 38.50 H Albumin LDL Cholesterol Direct 12/16/21 12/16/21 12/16/21 05:00 06:15 09:58 WBC RBC Hgb Hct MCH RDW Plt Count Lymph % (Auto) Lymph # (Auto) Seg Neutrophils % Seg Neuts % (Manual) Lymphocytes % (Manual) Monocytes % (Manual) Nucleated RBC % Seg Neutrophils # Seg Neutrophils # Man Lymphocytes # (Manual) Percent Retic PT INR Fibrinogen ABG pH ABG pO2 48.0 L ABG HCO3 ABG O2 Saturation 80.5 L ABG Base Excess -2.9 L ABG Hemoglobin 11.2 L VBG pO2 Oxyhemoglobin 78.8 L Sodium Potassium Chloride Carbon Dioxide BUN 75 H Creatinine 7.7 H Glucose POC Glucose 67 L Lactic Acid Calcium 8.3 L Phosphorus Magnesium Iron TIBC Ferritin Alkaline Phosphatase Troponin T C-Reactive Protein Albumin LDL Cholesterol Direct 12/16/21 12/16/21 12/17/21 11:06 23:24 04:00 WBC 12.3 H RBC 3.32 L Hgb 8.8 L Hct 26.5 L MCH 26 L RDW 18.0 H Plt Count 27 L Lymph % (Auto) 5.9 L Lymph # (Auto) 0.7 L Seg Neutrophils % 88.3 H Seg Neuts % (Manual) Lymphocytes % (Manual) Monocytes % (Manual) Nucleated RBC % Seg Neutrophils # 10.9 H Seg Neutrophils # Man Lymphocytes # (Manual) Percent Retic PT INR Fibrinogen ABG pH ABG pO2 137.7 H ABG HCO3 ABG O2 Saturation ABG Base Excess ABG Hemoglobin 9.9 L VBG pO2 Oxyhemoglobin Sodium Potassium Chloride Carbon Dioxide BUN Creatinine Glucose POC Glucose 110 H Lactic Acid Calcium Phosphorus Magnesium Iron TIBC Ferritin Alkaline Phosphatase Troponin T C-Reactive Protein Albumin LDL Cholesterol Direct 12/17/21 12/17/21 12/17/21 04:30 04:30 11:18 WBC RBC Hgb Hct MCH RDW Plt Count Lymph % (Auto) Lymph # (Auto) Seg Neutrophils % Seg Neuts % (Manual) Lymphocytes % (Manual) Monocytes % (Manual) Nucleated RBC % Seg Neutrophils # Seg Neutrophils # Man Lymphocytes # (Manual) Percent Retic PT INR Fibrinogen ABG pH ABG pO2 ABG HCO3 ABG O2 Saturation ABG Base Excess ABG Hemoglobin VBG pO2 Oxyhemoglobin Sodium Potassium Chloride Carbon Dioxide BUN 43 H Creatinine 5.0 H Glucose 129 H POC Glucose 149 H Lactic Acid Calcium 7.8 L Phosphorus 1.90 L Magnesium 1.60 L Iron TIBC Ferritin Alkaline Phosphatase Troponin T C-Reactive Protein Albumin LDL Cholesterol Direct 12/17/21 12/17/21 12/17/21 14:35 16:58 18:32 WBC RBC Hgb Hct MCH RDW Plt Count Lymph % (Auto) Lymph # (Auto) Seg Neutrophils % Seg Neuts % (Manual) Lymphocytes % (Manual) Monocytes % (Manual) Nucleated RBC % Seg Neutrophils # Seg Neutrophils # Man Lymphocytes # (Manual) Percent Retic PT 17.4 H INR 1.27 H Fibrinogen 486 H ABG pH 7.316 L ABG pO2 74.0 L ABG HCO3 ABG O2 Saturation 93.7 L ABG Base Excess -3.3 L ABG Hemoglobin 8.8 L VBG pO2 Oxyhemoglobin 91.7 L Sodium Potassium Chloride Carbon Dioxide BUN Creatinine Glucose POC Glucose 219 H Lactic Acid Calcium Phosphorus Magnesium Iron TIBC Ferritin Alkaline Phosphatase Troponin T C-Reactive Protein Albumin LDL Cholesterol Direct 12/17/21 12/18/21 12/18/21 23:19 05:00 05:00 WBC 15.3 H RBC 3.25 L Hgb 8.4 L Hct 25.7 L MCH 26 L RDW 18.2 H Plt Count 28 L Lymph % (Auto) Lymph # (Auto) Seg Neutrophils % Seg Neuts % (Manual) 99.0 H Lymphocytes % (Manual) 1.0 L Monocytes % (Manual) Nucleated RBC % 1.0 H Seg Neutrophils # Seg Neutrophils # Man 15.1 H Lymphocytes # (Manual) 0.2 L Percent Retic 0.37 L PT INR Fibrinogen ABG pH ABG pO2 ABG HCO3 ABG O2 Saturation ABG Base Excess ABG Hemoglobin VBG pO2 Oxyhemoglobin Sodium 135 L Potassium Chloride Carbon Dioxide 20 L BUN 53 H Creatinine 5.2 H Glucose 307 H POC Glucose 313 H Lactic Acid Calcium 8.0 L Phosphorus Magnesium Iron 13 L TIBC 109 L Ferritin Alkaline Phosphatase Troponin T C-Reactive Protein Albumin LDL Cholesterol Direct 12/18/21 12/18/21 12/18/21 05:00 05:00 09:00 WBC RBC Hgb Hct MCH RDW Plt Count Lymph % (Auto) Lymph # (Auto) Seg Neutrophils % Seg Neuts % (Manual) Lymphocytes % (Manual) Monocytes % (Manual) Nucleated RBC % Seg Neutrophils # Seg Neutrophils # Man Lymphocytes # (Manual) Percent Retic PT INR Fibrinogen 481 H ABG pH ABG pO2 50.2 L ABG HCO3 ABG O2 Saturation 81.7 L ABG Base Excess -3.6 L ABG Hemoglobin 8.0 L VBG pO2 Oxyhemoglobin 80.0 L Sodium Potassium Chloride Carbon Dioxide BUN Creatinine Glucose POC Glucose Lactic Acid Calcium Phosphorus Magnesium Iron TIBC Ferritin 383.4 H Alkaline Phosphatase Troponin T C-Reactive Protein Albumin LDL Cholesterol Direct 12/18/21 12/18/21 12/18/21 10:56 11:10 12:00 WBC RBC Hgb Hct MCH RDW Plt Count Lymph % (Auto) Lymph # (Auto) Seg Neutrophils % Seg Neuts % (Manual) Lymphocytes % (Manual) Monocytes % (Manual) Nucleated RBC % Seg Neutrophils # Seg Neutrophils # Man Lymphocytes # (Manual) Percent Retic PT INR Fibrinogen ABG pH ABG pO2 92.7 H ABG HCO3 19.8 L ABG O2 Saturation ABG Base Excess -3.8 L ABG Hemoglobin 6.6 L VBG pO2 Oxyhemoglobin Sodium Potassium Chloride Carbon Dioxide BUN Creatinine Glucose POC Glucose 190 H Lactic Acid Calcium Phosphorus 2.40 L D Magnesium Iron TIBC Ferritin Alkaline Phosphatase Troponin T C-Reactive Protein Albumin LDL Cholesterol Direct 12/18/21 12/18/21 12/18/21 18:06 20:00 23:05 WBC 19.2 H RBC 3.51 L Hgb 8.8 L Hct 27.8 L MCH 25 L RDW 18.1 H Plt Count 34 L Lymph % (Auto) Lymph # (Auto) Seg Neutrophils % Seg Neuts % (Manual) Lymphocytes % (Manual) Monocytes % (Manual) Nucleated RBC % Seg Neutrophils # Seg Neutrophils # Man Lymphocytes # (Manual) Percent Retic PT INR Fibrinogen ABG pH ABG pO2 62.5 L ABG HCO3 26.6 H ABG O2 Saturation 91.7 L ABG Base Excess ABG Hemoglobin 8.4 L VBG pO2 Oxyhemoglobin 89.9 L Sodium Potassium Chloride Carbon Dioxide BUN Creatinine Glucose POC Glucose 156 H Lactic Acid Calcium Phosphorus Magnesium Iron TIBC Ferritin Alkaline Phosphatase Troponin T C-Reactive Protein Albumin LDL Cholesterol Direct 12/18/21 12/19/21 12/19/21 23:54 05:00 05:00 WBC 18.9 H RBC 3.29 L Hgb 8.4 L Hct 26.0 L MCH 26 L RDW 18.2 H Plt Count 34 L Lymph % (Auto) Lymph # (Auto) Seg Neutrophils % Seg Neuts % (Manual) 93.0 H Lymphocytes % (Manual) 2.0 L Monocytes % (Manual) Nucleated RBC % Seg Neutrophils # Seg Neutrophils # Man 17.6 H Lymphocytes # (Manual) 0.4 L Percent Retic PT INR Fibrinogen ABG pH ABG pO2 ABG HCO3 ABG O2 Saturation ABG Base Excess ABG Hemoglobin VBG pO2 Oxyhemoglobin Sodium Potassium Chloride Carbon Dioxide BUN 30 H Creatinine 3.1 H Glucose 155 H POC Glucose 122 H Lactic Acid Calcium 8.2 L Phosphorus Magnesium Iron TIBC Ferritin Alkaline Phosphatase Troponin T C-Reactive Protein Albumin LDL Cholesterol Direct 12/19/21 05:29 WBC RBC Hgb Hct MCH RDW Plt Count Lymph % (Auto) Lymph # (Auto) Seg Neutrophils % Seg Neuts % (Manual) Lymphocytes % (Manual) Monocytes % (Manual) Nucleated RBC % Seg Neutrophils # Seg Neutrophils # Man Lymphocytes # (Manual) Percent Retic PT INR Fibrinogen ABG pH ABG pO2 ABG HCO3 ABG O2 Saturation ABG Base Excess ABG Hemoglobin VBG pO2 Oxyhemoglobin Sodium Potassium Chloride Carbon Dioxide BUN Creatinine Glucose POC Glucose 153 H Lactic Acid Calcium Phosphorus Magnesium Iron TIBC Ferritin Alkaline Phosphatase Troponin T C-Reactive Protein Albumin LDL Cholesterol Direct Allied health notes reviewed: nursing
[2021-12-19] MEDS: cefTRIAXone/NS 2 GM/100 ML 2 GM/100 ML BAG IV SCH (14:13)
--- NOTE | 2021-12-19 21:42 | Cat Scan Report ---
. CT HEAD WITHOUT CONTRAST INDICATION / CLINICAL INFORMATION: AMS. TECHNIQUE: All CT scans at this location are performed using CT dose reduction for ALARA by means of automated e xposure control. COMPARISON: CT 12/11/2021 FINDINGS: HEMORRHAGE: No evidence of intracranial hemorrhage or extra-axial fluid collection. EXTRA-AXIAL SPACES: Cortical sulci and sylvian fissures are mildly enlarged reflecting a degree of pa renchymal volume loss which is greater than expected for the patient's age of 66 years. Basilar ciste rns have an unremarkable appearance. VENTRICULAR SYSTEM: The third and lateral ventricles are mildly enlarged reflecting presence of age r elated parenchymal volume loss. CEREBRAL PARENCHYMA: Encephalomalacia is observed in the right parietal lobe secondary to remote righ t MCA infarction. Mild periventricular and deep white matter lucencies noted compatible with microvas cular ischemic change. These findings are stable. MIDLINE SHIFT OR HERNIATION: There is no mass effect. CEREBELLUM / BRAINSTEM: Increased attenuation is again demonstrated within the debora possibly due to d ystrophic calcification. Brainstem has an otherwise unremarkable appearance. No cerebellar abnormalit ies are identified. MIDLINE STRUCTURES:Pituitary gland has an unremarkable appearance. No abnormalities are seen in the p ineal region. INTRACRANIAL VESSELS:Calcified atherosclerotic plaque is present along the course of the cavernous se gments of both internal carotid arteries. Similar findings are seen at the distal vertebral arteries. CRANIOCERVICAL JUNCTION:No significant abnormality. ORBITS: visualized portions of the orbits have an unremarkable appearance. SOFT TISSUES of HEAD: No significant abnormality. CALVARIUM: Evaluation of bone windows reveals no abnormalities. PARANASAL SINUSES / MASTOID AIR CELLS: Paranasal sinuses are free from inflammatory mucosal disease. Mastoid air cells are normally pneumatized. ADDITIONAL FINDINGS: Nasoenteric tube is present in the left nasal cavity. Orotracheal tube is identi fied. IMPRESSION: 1. Moderate parenchymal volume loss and microvascular ischemic change greater than expected for age 8 4 years. 2. Remote right MCA infarction involving parietal lobe. 3. No acute intracranial abnormality. No significant interval change. Signer Name: Joss Miranda MD Signed: 12/19/2021 9:37 PM Workstation Name: [id number]
[2021-12-20] MEDS: METOCLOPRAMIDE 10 MG/2 ML INJ IV SCH ×4 (04:45→21:24)
[2021-12-20 05:15] LABS: Hematocrit 26.8 % (30.3-42.9); Hemoglobin 8.4 gm/dl (10.1-14.3); Mean Corpuscular HGB Conc 32 % (30-34); Mean Corpuscular Volume 79 fl (79-97); Red Blood Count 3.39 M/mm3 (3.65-5.03); Red Cell Distribution Width 17.8 % (13.2-15.2)
[2021-12-20 05:21] LABS: Platelet Count 36 K/mm3 (140-440)
[2021-12-20 05:29] LABS: Calcium 8.1 mg/dL (8.4-10.2)
[2021-12-20] MEDS: INSULIN LISPRO 100 UNIT/ML SUB-Q SCH ×4 (07:26→17:50)
[2021-12-20] MEDS: BUDESONIDE 0.5 MG/2 ML NEBU IH SCH ×2 (08:04→20:37)
[2021-12-20] MEDS: IPRATROPIUM/ALBUTEROL SULFATE 3 ML AMPUL.NEB IH SCH ×3 (08:04→20:37)
[2021-12-20] MEDS: MIDODRINE 10 MG TAB FEEDTUBE SCH ×3 (09:15→15:57)
[2021-12-20] MEDS: FAMOTIDINE 10 MG TAB FEEDTUBE SCH ×2 (09:16→21:20)
[2021-12-20] MEDS: ASPIRIN 81 MG TAB CHEW FEEDTUBE SCH (09:16)
[2021-12-20] MEDS: SENNOSIDES/DOCUSATE SODIUM 8.6/50 MG TAB FEEDTUBE SCH ×2 (09:16→21:20)
[2021-12-20] MEDS: methylPREDNISolone Sod Succinate 125 MG/2 ML INJ IV SCH ×2 (09:16→21:20)
[2021-12-20] MEDS: SODIUM FERRIC GLUCON/SUCRO 125 MG in SODIUM CHLORIDE 0.9% 100 ML IV SCH (09:37)
--- NOTE | 2021-12-20 10:46 | Progress Note ---
<ERICAVIV HWallace - Last Filed: 12/20/21 11:29> Assessment and Plan Assessment and plan: This is a 66-year-old female with HTN, [place] (2007), seizure disorder, CVA (2007), CHF, CAD, ESRD on HD, GERD admitted with presyncope however now with beta- hemolytic Streptococcus group B bacteremia, sepsis, acute proximal respiratory failure Neuro: Acute metabolic encephalopathy, h/o seizure disorder and 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 -Sedated with fentanyl -RASS goal 0 to -1 -Avoid delirium -Reorientation as needed -Maintain sleep-wake cycle -Aspiration/seizure precautions -Keppra -As needed analgesia -CT head showed small quantity of increased attenuation in the central debora likely related to calcification and hemorrhage not favored, venous collaterals seen within the base of the neck and patient has a left brachiocephalic stent, nonspecific prominent left supraclavicular lymph node, multinodular nodular thyroid gland -repeat CTH with no acute findings -EEG with slowing per tech, awaiting official read -Neurology consulted, appreciate recommendations Cardiac: NSTEMI, severe cardiomyopathy with reduced EF, h/o HTN, [place], CAD with [place] (2007) s/p PCI , HLD -Cardiology consulted, appreciate recommendations -Blood pressure monitoring per protocol -s/p Vasopressor support with Levophed and vasopressin -Per cardio: Echocardiogram (completed 2 weeks prior to this admission) showed a moderate severity cardiomyopathy, ejection fraction 35 to 40%. -Echo this admit shows LVEF 30 to 35%, no valvular vegetations -S/p dobutamine -Lipitor, aspirin, Midodrine -Hold home antihypertensive regimen in setting of hypotension Respiratory: Acute hypoxic respiratory failure -CCM consulted, appreciate recommendations -Intubated 12/15 with 7.5 oett at 20 at the lips -A.m. vent settings: Assist-control rate 16, tidal volume 450, PEEP 8, FiO2 30% -See RT notes for titration -PSV today -VAP bundle -SPO2 monitoring GI: Protein calorie malnutrition, h/o GERD -24 hours +725 mL HD 12/18 with removal of 2L, HD 12/20 -PPI -NTR consulted for tube feedings -BR: Senokot -Reglan -KUB with no acute process : ESRD on HD, -Nephrology consulted, appreciate recommendations -HD per nephrology -HD today -Strict intake and output -Renally dose medications -Avoid nephrotoxic medications -Daily weights -PhosLo and Renvela d/c d/t low phos ID: Sepsis secondary to beta-hemolytic strep group B (POA based on source), RUE infiltration of NS and possible Levophed -Infectious disease consulted, appreciate recommendations -S/p removal of right upper chest PermCath -cath culture with beta-hemolytic strep group B -Antibiotic therapy with ceftriaxone -f/u blood culture -SHOAIB without vegetation -WOCN consult -Dressing changes per nursing -Antidote for levo not available -Cold compress and elevation -Monitor WBC and temperature curve Endo: Multi-nodular thyroid gland, h/o IDDM -Multinodular thyroid gland noted on CT head -Dedicated thyroid ultrasound recommended -Avoid hypoglycemia -SSI -Accu-Cheks ACHS Heme: Leukocytosis, AOCD, thrombocyopenia -Trend CBC -Transfuse hemoglobin less than 7 -Monitor for signs of bleeding -SCDs to BLE while in bed -heparin subq dc -HIT panel pending -Hematology/oncology consulted -Continue solu medrol 1mg/kg BID -Transfuse 1 dose of plts whenever plt count <20 -Continue IV Ferrlicet 125mg x3 doses -Monitor plts and for bleeding MS: S/p fall at home with contusion of right lower extremity, pain and swelling -CT head/C-spine/pelvis showed no acute fracture or dislocation -XR L-spine/right tib-fib/fib/right femur/right hip and pelvis showed no acute fracture or dislocation. -PT consulted The high probability of a clinically significant, sudden or life threatening deterioration of the [multi] system(s) required my full and direct attention, i ntervention and personal management. The aggregate critical care time was [60] minutes. 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 Patient stated that she felt dizzy and then found herself on the ground. In the emergency department patient was found to have elevated trop onin, elevated BUN/creatinine at 9.2/76, CXR showed pulmonary edema and CT head/C-spine/pelvis showed no acute fracture or dislocation and x-ray L- spine/right tib-fib/fib/right femur/right hip and pelvis showed no acute fracture or dislocation. Patient was admitted to the hospitalist service with c onsults to nephrology and cardiology. Hospital course to date: 12/12: No acute events overnight, reports extreme pain in her right leg, denies chest pain or shortness of breath 12/13: No acute events overnight, patient tearful and complaining of right leg pain however she is refusing analgesic medication 12/14: Continues to have right leg pain, does not participate in interview 12/15: Patient transferred to the ICU for hypotension on Levophed drip however she was weaned off by morning and midodrine was increased due to borderline MAP. Blood cultures grew 11/17 gram-positive cocci with suspected right upper chest permacath source. Patient started on vancomycin and infectious disease consulted. Plan for IR consult for permacath removal and assessment of aVF functioning. Possible temporary Vas-Cath placement for hemodialysis. Patient is encephalopathic likely secondary to sepsis. Continue current antibiotics and repeat 2D echo and blood cultures in the a.m. Right upper extremity swelling and pain noted and right upper extremity XR and Doppler ordered. 12/16: Patient noted to have blisters on left arm and RN asked to elevate and place cool compresses to site. AV fistula on left upper extremity access by hemodialysis nurse and hemodialysis ongoing. Vasopressin ordered in efforts to wean Levophed while on hemodialysis. Echocardiogram repeated. Blood cultures grew beta-hemolytic strep group B and antibiotics changed to ceftriaxone. Dobutamine drip discontinued. Remained sedated on fentanyl drip. 12/17: Thrombocytopenia worse today, unable to tolerate being off vasopressin, started on steroids, HIT assay ordered-discontinued. SCDs for now. [facility] will like to give normal saline 100 ml/hr for 2 L. 12/18: Wound care consult placed for right upper extremity, PSV trials today, weaning Levophed, dialysis planned for today. Hematology/oncology consulted yesterday who recommends twice daily Solu-Medrol. No acute events reported overnight. Patient will be started on IV iron 12/19: PSV today, mentation better and intermittently follows commands. Platelets stable. Reglan started for vomiting and will slowly increase TF. KUB with no acute process. 12/20: PSV today, mentation unchanged, CTH without acute findings, Platelets remains stable with no signs of bleeding, high residuals reported overnight and TF was off from approximately [id number]. TF resumed around 0400 at currently at 20/hr. RN to increase as tolerated. [facility] plans extubation Wednesday. HD today. Will keep femoral line for now in setting of low plts Hospitalist Physical - Constitutional Vitals: Temp Pulse Resp BP Pulse Ox 100 F H 66 14 117/59 100 12/20/21 10:00 12/20/21 10:30 12/20/21 10:00 12/20/21 10:12/20/21 10:00 General appearance: Present: no acute distress, other (intubated) - EENT Eyes: Present: PERRL, EOM intact ENT: dentition normal - Neck Neck: Present: normal ROM - Respiratory Respiratory effort: normal Respiratory: bilateral: diminished - Cardiovascular Rhythm: regular Heart Sounds: Present: S1 & S2. Absent: systolic murmur, diastolic murmur - Extremities Extremities: no ischemia, pulses intact, pulses symmetrical, normal temperature, normal color Peripheral Pulses: within normal limits - Abdominal General gastrointestinal: soft, non-tender, non-distended, normal bowel sounds - Integumentary Integumentary: Present: warm, dry - Psychiatric Psychiatric: cooperative - Neurologic Neurologic: other (withdraw to pain, intermittantly floow commands but waxes and wanes) - Allied Health Allied health notes reviewed: nursing, RT HEART Score - HEART Score Troponin: Troponin T 0.175 ng/mL (0.00-0.029) H* 12/12/21 04:43 Results - Labs CBC & Chem 7: 12/20/21 04:45 12/20/21 04:45 Labs: Laboratory Last Values WBC 15.0 K/mm3 (4.5-11.0) H 12/20/21 04:45 RBC 3.39 M/mm3 (3.65-5.03) L 12/20/21 04:45 Hgb 8.4 gm/dl (10.1-14.3) L 12/20/21 04:45 Hct 26.8 % (30.3-42.9) L 12/20/21 04:45 MCV 79 fl (79-97) 12/20/21 04:45 MCH 25 pg (28-32) L 12/20/21 04:45 MCHC 32 % (30-34) 12/20/21 04:45 RDW 17.8 % (13.2-15.2) H 12/20/21 04:45 Plt Count 36 K/mm3 (140-440) L 12/20/21 04:45 Lymph % (Auto) 5.9 % (13.4-35.0) L 12/17/21 04:00 [place] % (Auto) 4.6 % (0.0-7.3) 12/17/21 04:00 Eos % (Auto) 0.4 % (0.0-4.3) 12/17/21 04:00 Baso % (Auto) 0.8 % (0.0-1.8) 12/17/21 04:00 Lymph # (Auto) 0.7 K/mm3 (1.2-5.4) L 12/17/21 04:00 [place] # (Auto) 0.6 K/mm3 (0.0-0.8) 12/17/21 04:00 Eos # (Auto) 0.0 K/mm3 (0.0-0.4) 12/17/21 04:00 Baso # (Auto) 0.1 K/mm3 (0.0-0.1) 12/17/21 04:00 Add Manual Diff Complete 12/18/21 05:00 Total Counted 100 12/19/21 05:00 Seg Neutrophils % Research Physicist 12/19/21 05:00 Seg Neuts % (Manual) 93.0 % (40.0-70.0) H 12/19/21 05:00 Band Neutrophils % 2.0 % 12/19/21 05:00 Lymphocytes % (Manual) 2.0 % (13.4-35.0) L 12/19/21 05:00 Reactive Lymphs % (Man) 0 % 12/19/21 05:00 Monocytes % (Manual) 1.0 % (0.0-7.3) 12/19/21 05:00 Eosinophils % (Manual) 0 % (0.0-4.3) 12/19/21 05:00 Basophils % (Manual) 0 % (0.0-1.8) 12/19/21 05:00 Metamyelocytes % 2.0 % 12/19/21 05:00 Myelocytes % 0 % 12/19/21 05:00 Promyelocytes % 0 % 12/19/21 05:00 Blast Cells % 0 % 12/19/21 05:00 Nucleated RBC % Not Reportable 12/19/21 05:00 Seg Neutrophils # 10.9 K/mm3 (1.8-7.7) H 12/17/21 04:00 Seg Neutrophils # Man 17.6 K/mm3 (1.8-7.7) H 12/19/21 05:00 Band Neutrophils # 0.4 K/mm3 12/19/21 05:00 Lymphocytes # (Manual) 0.4 K/mm3 (1.2-5.4) L 12/19/21 05:00 Abs React Lymphs (Man) 0.0 K/mm3 12/19/21 05:00 Monocytes # (Manual) 0.2 K/mm3 (0.0-0.8) 12/19/21 05:00 Eosinophils # (Manual) 0.0 K/mm3 (0.0-0.4) 12/19/21 05:00 Basophils # (Manual) 0.0 K/mm3 (0.0-0.1) 12/19/21 05:00 Metamyelocytes # 0.4 K/mm3 12/19/21 05:00 Myelocytes # 0.0 K/mm3 12/19/21 05:00 Promyelocytes # 0.0 K/mm3 12/19/21 05:00 Blast Cells # 0.0 K/mm3 12/19/21 05:00 WBC Morphology Not Reportable 12/19/21 05:00 Hypersegmented Neuts Not Reportable 12/19/21 05:00 Hyposegmented Neuts 1+ 12/19/21 05:00 Hypogranular Neuts Not Reportable 12/19/21 05:00 Smudge Cells Not Reportable 12/19/21 05:00 Toxic Granulation Not Reportable 12/19/21 05:00 Toxic Vacuolation Not Reportable 12/19/21 05:00 Dohle Bodies Not Reportable 12/19/21 05:00 Pelger-Huet Anomaly Not Reportable 12/19/21 05:00 Charles Rods Not Reportable 12/19/21 05:00 Platelet Estimate Consistent w auto 12/19/21 05:00 Clumped Platelets Not Reportable 12/19/21 05:00 Plt Clumps, EDTA Not Reportable 12/19/21 05:00 Large Platelets Not Reportable 12/19/21 05:00 Giant Platelets Not Reportable 12/19/21 05:00 Platelet Satelliting Not Reportable 12/19/21 05:00 Plt Morphology Comment Not Reportable 12/19/21 05:00 RBC Morphology Not Reportable 12/19/21 05:00 Dimorphic RBCs Not Reportable 12/19/21 05:00 Polychromasia Not Reportable 12/19/21 05:00 Hypochromasia 1+ 12/19/21 05:00 Poikilocytosis Few 12/19/21 05:00 Anisocytosis Few 12/19/21 05:00 Microcytosis Not Reportable 12/19/21 05:00 Macrocytosis Not Reportable 12/19/21 05:00 Spherocytes Not Reportable 12/19/21 05:00 Pappenheimer Bodies Not Reportable 12/19/21 05:00 Sickle Cells Not Reportable 12/19/21 05:00 Target Cells Rare 12/19/21 05:00 Tear Drop Cells Not Reportable 12/19/21 05:00 Ovalocytes Rare 12/19/21 05:00 Helmet Cells Not Reportable 12/19/21 05:00 Murphy-Gamaliel Bodies Not Reportable 12/19/21 05:00 [place] Rings Not Reportable 12/19/21 05:00 [place] Cells Not Reportable 12/19/21 05:00 Bite Cells Not Reportable 12/19/21 05:00 Crenated Cell Not Reportable 12/19/21 05:00 Elliptocytes Not Reportable 12/19/21 05:00 Acanthocytes (Spur) Not Reportable 12/19/21 05:00 Rouleaux Rare 12/19/21 05:00 Hemoglobin C Crystals Not Reportable 12/19/21 05:00 Schistocytes Rare 12/19/21 05:00 Malaria parasites Not Reportable 12/19/21 05:00 Percent Retic 0.37 % (0.78-2.58) L 12/18/21 05:00 Bryson Bodies Not Reportable 12/19/21 05:00 Hem Pathologist Commnt Not Reportable 12/19/21 05:00 PT 17.4 Sec. (12.2-14.9) H 12/17/21 18:32 INR 1.27 (0.87-1.13) H 12/17/21 18:32 Fibrinogen 481 mg/dl (211-480) H 12/18/21 05:00 ABG pH 7.383 pH Units (7.350-7.450) 12/18/21 20:00 ABG pCO2 45.6 mm Hg 12/18/21 20:00 ABG pO2 62.5 mm Hg (80.0-90.0) L 12/18/21 20:00 ABG HCO3 26.6 mmol/L (20.0-26.0) H 12/18/21 20:00 ABG O2 Saturation 91.7 % (95.0-99.0) L 12/18/21 20:00 ABG O2 Content 10.7 (0.0-44) 12/18/21 20:00 ABG Base Excess 1.3 mmol/L (-2.0-3.0) 12/18/21 20:00 ABG Hemoglobin 8.4 gm/dl (12.0-16.0) L 12/18/21 20:00 ABG Carboxyhemoglobin 1.7 % (0.0-5.0) 12/18/21 20:00 ABG Methemoglobin 0.3 % (0.0-1.5) 12/18/21 20:00 VBG pO2 > 258.0 (25.0-47.0) H 12/15/21 19:50 Oxyhemoglobin 89.9 % (95.0-99.0) L 12/18/21 20:00 FiO2 30 % 12/18/21 20:00 Sodium 135 mmol/L (137-145) L 12/20/21 04:45 Potassium 4.2 mmol/L (3.6-5.0) 12/20/21 04:45 Chloride 96.1 mmol/L (98-107) L 12/20/21 04:45 Carbon Dioxide 22 mmol/L (22-30) 12/20/21 04:45 Anion Gap 21 mmol/L 12/20/21 04:45 BUN 48 mg/dL (7-17) H 12/20/21 04:45 Creatinine 3.9 mg/dL (0.6-1.2) H 12/20/21 04:45 Estimated GFR 14 ml/min 12/20/21 04:45 BUN/Creatinine Ratio 12 % 12/20/21 04:45 Glucose 188 mg/dL (65-100) H 12/20/21 04:45 POC Glucose 169 mg/dL (70-105) H 12/20/21 05:07 Lactic Acid 1.90 mmol/L (0.7-2.0) 12/16/21 05:00 Calcium 8.1 mg/dL (8.4-10.2) L 12/20/21 04:45 Phosphorus 4.50 mg/dL (2.5-4.5) D 12/19/21 21:19 Magnesium 2.10 mg/dL (1.7-2.3) 12/18/21 12:00 Iron 13 ug/dL (37-170) L 12/18/21 05:00 TIBC 109 mcg/dL (250-450) L 12/18/21 05:00 Ferritin 383.4 ng/mL (10.0-200.0) H 12/18/21 05:00 Total Bilirubin 0.60 mg/dL (0.1-1.2) 12/11/21 15:40 AST 22 units/L (5-40) 12/11/21 15:40 ALT 13 units/L (7-56) 12/11/21 15:40 Alkaline Phosphatase 237 units/L (35-129) H 12/11/21 15:40 Lactate Dehydrogenase 154 units/L (91-180) 12/18/21 05:00 Troponin T 0.175 ng/mL (0.00-0.029) H* 12/12/21 04:43 C-Reactive Protein 38.50 mg/dL (0.00-1.30) H 12/15/21 14:40 Total Protein 7.4 g/dL (6.3-8.2) 12/11/21 15:40 Albumin 3.6 g/dL (3.9-5) L 12/11/21 15:40 Albumin/Globulin Ratio 0.9 % 12/11/21 15:40 Triglycerides 92 mg/dL (2-149) 12/11/21 15:40 Cholesterol 72 mg/dL (50-199) 12/11/21 15:40 LDL Cholesterol Direct 16 mg/dL (50-130) L 12/11/21 15:40 HDL Cholesterol 41 mg/dL (40-59) 12/11/21 15:40 Cholesterol/HDL Ratio 1.75 % 12/11/21 15:40 Procalcitonin 46.16 ng/mL (<0.15) 12/15/21 04:11 Random Vancomycin 15.6 ug/mL (0-40.0) 12/16/21 05:00 Blood Type O POSITIVE 12/17/21 09:30 Antibody Screen Negative 12/17/21 09:30 Microbiology: Microbiology 12/16/21 10:03 Peripheral/Venous Blood Culture - Preliminary NO GROWTH AFTER 72 HOURS 12/16/21 09:57 Peripheral/Venous Blood Culture - Preliminary NO GROWTH AFTER 72 HOURS Active Medications - Current Medications Current Medications: Generic Name Dose Route Start Last Admin Trade Name Freq PRN Reason Stop Dose Admin Acetaminophen 650 mg 12/13/21 23:00 12/13/21 23:18 Acetaminophen 650 Mg Rect Supp DE 650 mg Q4H PRN Administration Pain, Mild (1-3) Albuterol 2.5 mg 12/11/21 22:14 Albuterol 2.5 Mg/3 Ml Nebu IH Q6HR PRN Wheezing Albuterol/Ipratropium 1 ampul 12/14/21 08:00 12/20/21 08:04 Ipratropium/Albuterol Sulfate 3 Ml Ampul.Neb IH 1 ampul TIDRT KRISTA Administration Lipase/Protease/Amylase 1 each 12/16/21 11:15 Lipase 10,500/Protease 25,000/Amylase 43,750 (Units) Dr Blanco FEEDTUBE PRN PRN For Clogged Feeding Tube Aspirin 81 mg 12/15/21 10:00 12/20/21 09:16 Aspirin 81 Mg Tab Chew FEEDTUBE 81 mg QDAY KRISTA Administration Atorvastatin Calcium 80 mg 12/15/21 22:00 12/19/21 21:27 Atorvastatin 40 Mg Tab FEEDTUBE 80 mg QHS KRISTA Administration Budesonide 0.5 mg 12/13/21 08:00 12/20/21 08:04 Budesonide 0.5 Mg/2 Ml Nebu IH 0.5 mg Q12HRT KRISTA Administration Dextrose 50 ml 12/11/21 22:23 12/16/21 06:24 Dextrose 50% In Water (25gm) 50 Ml Syringe IV 15 ml Q30MIN PRN Administration Hypoglycemia Protocol Famotidine 10 mg 12/15/21 22:00 12/20/21 09:16 Famotidine 10 Mg Tab FEEDTUBE 10 mg BID KRISTA Administration Fentanyl 50 mcg 12/15/21 17:19 12/15/21 17:58 Fentanyl 100 Mcg/2 Ml Inj IV 50 mcg Q10MIN PRN Administration ANALGESIA Hydrophilic Ointment 1 applic 12/16/21 14:30 Lip Therapy Vaseline TP Q2HR PRN Dry Lips Sodium Chloride 100 mls @ 999 mls/hr 12/12/21 12:00 Nacl 0.9% IV ABEL PRN Hypotension NORepinephrine/NS 8 MG-250 ML 8 mg in 250 mls @ 3.75 mls/hr 12/14/21 23:00 12/18/21 19:02 Norepinephrine/Ns 8 Mg-250 Ml (Double Conc) IV 0 mcg/min TITRATE KRISTA 0 mls/hr Titration Protocol 2 MCG/MIN Fentanyl Citrate 2,000 mcg in 100 mls @ 2.945 mls/hr 12/15/21 18:00 12/19/21 18:28 Fentanyl Drip Premix IV 0 mcg/kg/hr TITR KRISTA 0 mls/hr Titration Protocol 1 MCG/KG/HR Vasopressin 20 unit/ Sodium 101 mls @ 9.09 mls/hr 12/16/21 10:00 12/17/21 18:27 Chloride IV 0 units/min TITR KRISTA 0 mls/hr Titration Protocol 0.03 UNITS/MIN Ceftriaxone Sodium 2 gm in 100 mls @ 200 mls/hr 12/16/21 15:00 12/19/21 14:13 Rocephin/Ns 2 Gm/100 Ml IV 12/29/21 15:29 200 mls/hr Q24H KRISTA Administration Protocol Ferric Sodium Gluconate 110 mls @ 100 mls/hr 12/18/21 11:00 12/20/21 09:37 Complex 125 mg/ Sodium IV 12/21/21 23:59 100 mls/hr Chloride DAILY KRISTA Administration Insulin Human Lispro 0 unit 12/15/21 12:00 12/20/21 07:27 Insulin Lispro 100 Unit/Ml SUB-Q Not Given Q6HR [facility] Protocol Levetiracetam 500 mg 12/16/21 18:00 12/18/21 18:08 Levetiracetam 500 Mg/5 Ml Oral Liqd FEEDTUBE 500 mg TuThSa KRISTA Administration Methylprednisolone Sodium Succinate 60 mg 12/18/21 22:00 12/20/21 09:16 Methylprednisolone Sod Succinate 125 Mg/2 Ml Inj IV 12/21/21 21:59 60 mg Q12HR KRISTA Administration Metoclopramide HCl 5 mg 12/19/21 10:00 12/20/21 09:18 Metoclopramide 10 Mg/2 Ml Inj IV 12/21/21 09:59 5 mg Q6H KRISTA Administration Midodrine 10 mg 12/15/21 12:00 12/20/21 09:15 Midodrine 10 Mg Tab FEEDTUBE 10 mg TID@0800,1200,1600 KRISTA Administration Morphine Sulfate 2 mg 12/11/21 22:11 Morphine 4 Mg/1 Ml Inj IV Q5MIN PRN Chest Pain unrelieved by NTG Multi-Ingred Cream/Lotion/Oil/Oint 1 applic 12/16/21 14:10 Mineral Oil/Petrolatum, White Ophth Oint 3.5 Gm OU Q4HR PRN Dry Eye(s) Nitroglycerin 0.4 mg 12/11/21 22:11 Nitroglycerin 0.4 Mg Tab Subl SL Q5M PRN Chest Pain Senna/Docusate Sodium 1 tab 12/16/21 22:00 12/20/21 09:16 Sennosides/Docusate Sodium 8.6/50 Mg Tab FEEDTUBE 1 tab BID KRISTA Administration Simple Syrup 15 ml 12/16/21 11:15 Simple Syrup 15 Ml FEEDTUBE PRN PRN Hypoglycemia Simple Syrup 30 ml 12/16/21 11:15 Simple Syrup 15 Ml FEEDTUBE PRN PRN Hypoglycemia Sodium Bicarbonate 325 mg 12/16/21 11:15 Sodium Bicarbonate 325 Mg Tab FEEDTUBE PRN PRN For Clogged Feeding Tube Sodium Chloride 10 ml 12/11/21 22:11 12/20/21 09:16 Sodium Chloride 0.9% 10 Ml Flush Syringe IV 10 ml PRN PRN Administration LINE FLUSH Nutrition/Malnutrition Assess - Dietary Evaluation Nutrition/Malnutrition Findings: Nutrition Notes Start: 12/12/21 11:57 Freq: Status: Active Protocol: Document 12/19/21 17:08 EVERARDO (Rec: 12/19/21 17:19 EVERARDO [id number]) Nutrition Notes Initial or Follow up Brief Note Current Diagnosis CKD (stage V CKD),Diabetes, Sepsis,Hypertension, Respiratory Failure Other Pertinent Diagnosis CKD+HD, Hypotension, GPC Bacteremia, s/p Fall, ... Current Diet TF-Nepro w/CARBSTEADY @ 30 ml/ hr (from L 12/17). Height 4 ft 11 in Weight 66.5 kg [place] Body Weight (kg) 43.18 BMI 29.6 Weight change and time frame 7.6 Kg body weight gain in 3 days reported. Weight Status Overweight Subjective/Other Information RD consult for routine F/U on TF tolerance assessment. TF continues as prescribed, TF restarted after belching episode. Will continue to monitor at F/U. RN Note on 12/19/21 09:29: 0730-Upon assessment of patient tube feedings noted to still be held at this time. Gastric residuals checked and contained 40cc of dark green bile. Patient had a small belching episode while assessment and oral care was going on. [employer] made aware. Tube feeds to remain held at this time. Pending xray results of stomach. Reglan to be given ( See MAR). Addendum entered by FRED VIVEROS RN 12/19/21 09:52: 0950-[employer] okayed to restart tube feeds at low rate (10cc/hr) for goal of 30 cc/ hr. Percent of energy/protein needs met: Prescribed TF-Nepro w/ CARBSTEADY @ 30 ml/hr provides for energy/protein needs (1, 296 Kcal/58 g) during LOS, 103 % Kcal; 82% AA. #1 Nutrition Diagnosis Inadequate oral intake Diagnosis Progress(for reassessment Continues documentation) Nutrition Intervention Nutrition Support: Continue TF-Nepro w/CARBSTEADY @ 30 ml/hr. Flush: 130 ml water Q 4 hr, or as per MD. Kcal 1,269 Protein (gm) 58 Carbohydrates (gm) 116 Fat (gm) 69 Fluid (mL) 523 Fiber (gm) 9 % RDI: 103% Kcal; 82% AA. Goal #1 Provide at least 75% of energy /protein needs through Enteral Feeding during LOS. Goal #2 Maintain body weight within +/ -3% of admission body weight during LOS. Follow-Up By: 12/22/21 Additional Comments Continue monitoring TF tolerance and BM. <KEITHINDIRAAUSTIN - Last Filed: 12/21/21 06:59> Assessment and Plan Assessment and plan: I saw and evaluated the patient. I agree with the findings and the plan of care as documented in the Nurse Practitioner's~note, with the following corrections a nd additions. Hospitalist Physical - Constitutional Vitals: Temp Pulse Resp BP Pulse Ox 98.3 F 75 11 L 133/66 100 12/21/21 04:00 12/21/21 06:00 12/21/21 06:00 12/21/21 06:00 12/21/21 06:00 HEART Score - HEART Score Troponin: Troponin T 0.175 ng/mL (0.00-0.029) H* 12/12/21 04:43 Results - Labs CBC & Chem 7: 12/20/21 04:45 12/20/21 04:45 Labs: Laboratory Last Values WBC 15.0 K/mm3 (4.5-11.0) H 12/20/21 04:45 RBC 3.39 M/mm3 (3.65-5.03) L 12/20/21 04:45 Hgb 8.4 gm/dl (10.1-14.3) L 12/20/21 04:45 Hct 26.8 % (30.3-42.9) L 12/20/21 04:45 MCV 79 fl (79-97) 12/20/21 04:45 MCH 25 pg (28-32) L 12/20/21 04:45 MCHC 32 % (30-34) 12/20/21 04:45 RDW 17.8 % (13.2-15.2) H 12/20/21 04:45 Plt Count 36 K/mm3 (140-440) L 12/20/21 04:45 Lymph % (Auto) 5.9 % (13.4-35.0) L 12/17/21 04:00 [place] % (Auto) 4.6 % (0.0-7.3) 12/17/21 04:00 Eos % (Auto) 0.4 % (0.0-4.3) 12/17/21 04:00 Baso % (Auto) 0.8 % (0.0-1.8) 12/17/21 04:00 Lymph # (Auto) 0.7 K/mm3 (1.2-5.4) L 12/17/21 04:00 [place] # (Auto) 0.6 K/mm3 (0.0-0.8) 12/17/21 04:00 Eos # (Auto) 0.0 K/mm3 (0.0-0.4) 12/17/21 04:00 Baso # (Auto) 0.1 K/mm3 (0.0-0.1) 12/17/21 04:00 Add Manual Diff Complete 12/18/21 05:00 Total Counted 100 12/19/21 05:00 Seg Neutrophils % Research Physicist 12/19/21 05:00 Seg Neuts % (Manual) 93.0 % (40.0-70.0) H 12/19/21 05:00 Band Neutrophils % 2.0 % 12/19/21 05:00 Lymphocytes % (Manual) 2.0 % (13.4-35.0) L 12/19/21 05:00 Reactive Lymphs % (Man) 0 % 12/19/21 05:00 Monocytes % (Manual) 1.0 % (0.0-7.3) 12/19/21 05:00 Eosinophils % (Manual) 0 % (0.0-4.3) 12/19/21 05:00 Basophils % (Manual) 0 % (0.0-1.8) 12/19/21 05:00 Metamyelocytes % 2.0 % 12/19/21 05:00 Myelocytes % 0 % 12/19/21 05:00 Promyelocytes % 0 % 12/19/21 05:00 Blast Cells % 0 % 12/19/21 05:00 Nucleated RBC % Not Reportable 12/19/21 05:00 Seg Neutrophils # 10.9 K/mm3 (1.8-7.7) H 12/17/21 04:00 Seg Neutrophils # Man 17.6 K/mm3 (1.8-7.7) H 12/19/21 05:00 Band Neutrophils # 0.4 K/mm3 12/19/21 05:00 Lymphocytes # (Manual) 0.4 K/mm3 (1.2-5.4) L 12/19/21 05:00 Abs React Lymphs (Man) 0.0 K/mm3 12/19/21 05:00 Monocytes # (Manual) 0.2 K/mm3 (0.0-0.8) 12/19/21 05:00 Eosinophils # (Manual) 0.0 K/mm3 (0.0-0.4) 12/19/21 05:00 Basophils # (Manual) 0.0 K/mm3 (0.0-0.1) 12/19/21 05:00 Metamyelocytes # 0.4 K/mm3 12/19/21 05:00 Myelocytes # 0.0 K/mm3 12/19/21 05:00 Promyelocytes # 0.0 K/mm3 12/19/21 05:00 Blast Cells # 0.0 K/mm3 12/19/21 05:00 WBC Morphology Not Reportable 12/19/21 05:00 Hypersegmented Neuts Not Reportable 12/19/21 05:00 Hyposegmented Neuts 1+ 12/19/21 05:00 Hypogranular Neuts Not Reportable 12/19/21 05:00 Smudge Cells Not Reportable 12/19/21 05:00 Toxic Granulation Not Reportable 12/19/21 05:00 Toxic Vacuolation Not Reportable 12/19/21 05:00 Dohle Bodies Not Reportable 12/19/21 05:00 Pelger-Huet Anomaly Not Reportable 12/19/21 05:00 Charles Rods Not Reportable 12/19/21 05:00 Platelet Estimate Consistent w auto 12/19/21 05:00 Clumped Platelets Not Reportable 12/19/21 05:00 Plt Clumps, EDTA Not Reportable 12/19/21 05:00 Large Platelets Not Reportable 12/19/21 05:00 Giant Platelets Not Reportable 12/19/21 05:00 Platelet Satelliting Not Reportable 12/19/21 05:00 Plt Morphology Comment Not Reportable 12/19/21 05:00 RBC Morphology Not Reportable 12/19/21 05:00 Dimorphic RBCs Not Reportable 12/19/21 05:00 Polychromasia Not Reportable 12/19/21 05:00 Hypochromasia 1+ 12/19/21 05:00 Poikilocytosis Few 12/19/21 05:00 Anisocytosis Few 12/19/21 05:00 Microcytosis Not Reportable 12/19/21 05:00 Macrocytosis Not Reportable 12/19/21 05:00 Spherocytes Not Reportable 12/19/21 05:00 Pappenheimer Bodies Not Reportable 12/19/21 05:00 Sickle Cells Not Reportable 12/19/21 05:00 Target Cells Rare 12/19/21 05:00 Tear Drop Cells Not Reportable 12/19/21 05:00 Ovalocytes Rare 12/19/21 05:00 Helmet Cells Not Reportable 12/19/21 05:00 Murphy-Gamaliel Bodies Not Reportable 12/19/21 05:00 [place] Rings Not Reportable 12/19/21 05:00 [place] Cells Not Reportable 12/19/21 05:00 Bite Cells Not Reportable 12/19/21 05:00 Crenated Cell Not Reportable 12/19/21 05:00 Elliptocytes Not Reportable 12/19/21 05:00 Acanthocytes (Spur) Not Reportable 12/19/21 05:00 Rouleaux Rare 12/19/21 05:00 Hemoglobin C Crystals Not Reportable 12/19/21 05:00 Schistocytes Rare 12/19/21 05:00 Malaria parasites Not Reportable 12/19/21 05:00 Percent Retic 0.37 % (0.78-2.58) L 12/18/21 05:00 Bryson Bodies Not Reportable 12/19/21 05:00 Hem Pathologist Commnt Not Reportable 12/19/21 05:00 PT 17.4 Sec. (12.2-14.9) H 12/17/21 18:32 INR 1.27 (0.87-1.13) H 12/17/21 18:32 Fibrinogen 481 mg/dl (211-480) H 12/18/21 05:00 ABG pH 7.383 pH Units (7.350-7.450) 12/18/21 20:00 ABG pCO2 45.6 mm Hg 12/18/21 20:00 ABG pO2 62.5 mm Hg (80.0-90.0) L 12/18/21 20:00 ABG HCO3 26.6 mmol/L (20.0-26.0) H 12/18/21 20:00 ABG O2 Saturation 91.7 % (95.0-99.0) L 12/18/21 20:00 ABG O2 Content 10.7 (0.0-44) 12/18/21 20:00 ABG Base Excess 1.3 mmol/L (-2.0-3.0) 12/18/21 20:00 ABG Hemoglobin 8.4 gm/dl (12.0-16.0) L 12/18/21 20:00 ABG Carboxyhemoglobin 1.7 % (0.0-5.0) 12/18/21 20:00 ABG Methemoglobin 0.3 % (0.0-1.5) 12/18/21 20:00 VBG pO2 > 258.0 (25.0-47.0) H 12/15/21 19:50 Oxyhemoglobin 89.9 % (95.0-99.0) L 12/18/21 20:00 FiO2 30 % 12/18/21 20:00 Sodium 135 mmol/L (137-145) L 12/20/21 04:45 Potassium 4.2 mmol/L (3.6-5.0) 12/20/21 04:45 Chloride 96.1 mmol/L (98-107) L 12/20/21 04:45 Carbon Dioxide 22 mmol/L (22-30) 12/20/21 04:45 Anion Gap 21 mmol/L 12/20/21 04:45 BUN 48 mg/dL (7-17) H 12/20/21 04:45 Creatinine 3.9 mg/dL (0.6-1.2) H 12/20/21 04:45 Estimated GFR 14 ml/min 12/20/21 04:45 BUN/Creatinine Ratio 12 % 12/20/21 04:45 Glucose 188 mg/dL (65-100) H 12/20/21 04:45 POC Glucose 176 mg/dL (70-105) H 12/20/21 23:50 Lactic Acid 1.90 mmol/L (0.7-2.0) 12/16/21 05:00 Calcium 8.1 mg/dL (8.4-10.2) L 12/20/21 04:45 Phosphorus 4.50 mg/dL (2.5-4.5) D 12/19/21 21:19 Magnesium 2.10 mg/dL (1.7-2.3) 12/18/21 12:00 Iron 13 ug/dL (37-170) L 12/18/21 05:00 TIBC 109 mcg/dL (250-450) L 12/18/21 05:00 Ferritin 383.4 ng/mL (10.0-200.0) H 12/18/21 05:00 Total Bilirubin 0.60 mg/dL (0.1-1.2) 12/11/21 15:40 AST 22 units/L (5-40) 12/11/21 15:40 ALT 13 units/L (7-56) 12/11/21 15:40 Alkaline Phosphatase 237 units/L (35-129) H 12/11/21 15:40 Lactate Dehydrogenase 154 units/L (91-180) 12/18/21 05:00 Troponin T 0.175 ng/mL (0.00-0.029) H* 12/12/21 04:43 C-Reactive Protein 38.50 mg/dL (0.00-1.30) H 12/15/21 14:40 Total Protein 7.4 g/dL (6.3-8.2) 12/11/21 15:40 Albumin 3.6 g/dL (3.9-5) L 12/11/21 15:40 Albumin/Globulin Ratio 0.9 % 12/11/21 15:40 Triglycerides 92 mg/dL (2-149) 12/11/21 15:40 Cholesterol 72 mg/dL (50-199) 12/11/21 15:40 LDL Cholesterol Direct 16 mg/dL (50-130) L 12/11/21 15:40 HDL Cholesterol 41 mg/dL (40-59) 12/11/21 15:40 Cholesterol/HDL Ratio 1.75 % 12/11/21 15:40 Procalcitonin 46.16 ng/mL (<0.15) 12/15/21 04:11 Random Vancomycin 15.6 ug/mL (0-40.0) 12/16/21 05:00 Blood Type O POSITIVE 12/17/21 09:30 Antibody Screen Negative 12/17/21 09:30 Microbiology: Microbiology 12/16/21 10:03 Peripheral/Venous Blood Culture - Preliminary NO GROWTH AFTER 4 DAYS 12/16/21 09:57 Peripheral/Venous Blood Culture - Preliminary NO GROWTH AFTER 4 DAYS Active Medications - Current Medications Current Medications: Generic Name Dose Route Start Last Admin Trade Name Freq PRN Reason Stop Dose Admin Acetaminophen 650 mg 12/13/21 23:00 12/13/21 23:18 Acetaminophen 650 Mg Rect Supp DE 650 mg Q4H PRN Administration Pain, Mild (1-3) Albuterol 2.5 mg 12/11/21 22:14 Albuterol 2.5 Mg/3 Ml Nebu IH Q6HR PRN Wheezing Albuterol/Ipratropium 1 ampul 12/14/21 08:00 12/20/21 20:37 Ipratropium/Albuterol Sulfate 3 Ml Ampul.Neb IH 1 ampul TIDRT KRISTA Administration Lipase/Protease/Amylase 1 each 12/16/21 11:15 Lipase 10,500/Protease 25,000/Amylase 43,750 (Units) Dr Blanco FEEDTUBE PRN PRN For Clogged Feeding Tube Aspirin 81 mg 12/15/21 10:00 12/20/21 09:16 Aspirin 81 Mg Tab Chew FEEDTUBE 81 mg QDAY KRISTA Administration Atorvastatin Calcium 80 mg 12/15/21 22:00 12/20/21 21:20 Atorvastatin 40 Mg Tab FEEDTUBE 80 mg QHS KRISTA Administration Budesonide 0.5 mg 12/13/21 08:00 12/20/21 20:37 Budesonide 0.5 Mg/2 Ml Nebu IH 0.5 mg Q12HRT KRISTA Administration Dextrose 50 ml 12/11/21 22:23 12/16/21 06:24 Dextrose 50% In Water (25gm) 50 Ml Syringe IV 15 ml Q30MIN PRN Administration Hypoglycemia Protocol Famotidine 10 mg 12/15/21 22:00 12/20/21 21:20 Famotidine 10 Mg Tab FEEDTUBE 10 mg BID KRISTA Administration Fentanyl 50 mcg 12/15/21 17:19 12/21/21 03:21 Fentanyl 100 Mcg/2 Ml Inj IV 50 mcg Q10MIN PRN Administration ANALGESIA Hydrophilic Ointment 1 applic 12/16/21 14:30 Lip Therapy Vaseline TP Q2HR PRN Dry Lips Sodium Chloride 100 mls @ 999 mls/hr 12/12/21 12:00 Nacl 0.9% IV ABEL PRN Hypotension NORepinephrine/NS 8 MG-250 ML 8 mg in 250 mls @ 3.75 mls/hr 12/14/21 23:00 12/18/21 19:02 Norepinephrine/Ns 8 Mg-250 Ml (Double Conc) IV 0 mcg/min TITRATE KRISTA 0 mls/hr Titration Protocol 2 MCG/MIN Fentanyl Citrate 2,000 mcg in 100 mls @ 2.945 mls/hr 12/15/21 18:00 12/19/21 18:28 Fentanyl Drip Premix IV 0 mcg/kg/hr TITR KRISTA 0 mls/hr Titration Protocol 1 MCG/KG/HR Vasopressin 20 unit/ Sodium 101 mls @ 9.09 mls/hr 12/16/21 10:00 12/17/21 18:27 Chloride IV 0 units/min TITR KRISTA 0 mls/hr Titration Protocol 0.03 UNITS/MIN Ceftriaxone Sodium 2 gm in 100 mls @ 200 mls/hr 12/16/21 15:00 12/20/21 15:57 Rocephin/Ns 2 Gm/100 Ml IV 12/29/21 15:29 200 mls/hr Q24H KRISTA Administration Protocol Ferric Sodium Gluconate 110 mls @ 100 mls/hr 12/18/21 11:00 12/20/21 09:37 Complex 125 mg/ Sodium IV 12/21/21 23:59 100 mls/hr Chloride DAILY KRISTA Administration Insulin Human Lispro 0 unit 12/15/21 12:00 12/21/21 06:04 Insulin Lispro 100 Unit/Ml SUB-Q 3 unit Q6HR KRISTA Administration Protocol Levetiracetam 500 mg 12/16/21 18:00 12/20/21 17:50 Levetiracetam 500 Mg/5 Ml Oral Liqd FEEDTUBE 500 mg TuThSa KRISTA Administration Methylprednisolone Sodium Succinate 60 mg 12/18/21 22:00 12/20/21 21:20 Methylprednisolone Sod Succinate 125 Mg/2 Ml Inj IV 12/21/21 21:59 60 mg Q12HR KRISTA Administration Metoclopramide HCl 5 mg 12/19/21 10:00 12/21/21 04:01 Metoclopramide 10 Mg/2 Ml Inj IV 12/21/21 09:59 5 mg Q6H KRISTA Administration Midodrine 10 mg 12/15/21 12:00 12/20/21 15:57 Midodrine 10 Mg Tab FEEDTUBE Not Given TID@0800,1200,1600 KRISTA Morphine Sulfate 2 mg 12/11/21 22:11 Morphine 4 Mg/1 Ml Inj IV Q5MIN PRN Chest Pain unrelieved by NTG Multi-Ingred Cream/Lotion/Oil/Oint 1 applic 12/16/21 14:10 Mineral Oil/Petrolatum, White Ophth Oint 3.5 Gm OU Q4HR PRN Dry Eye(s) Nitroglycerin 0.4 mg 12/11/21 22:11 Nitroglycerin 0.4 Mg Tab Subl SL Q5M PRN Chest Pain Senna/Docusate Sodium 1 tab 12/16/21 22:00 12/20/21 21:20 Sennosides/Docusate Sodium 8.6/50 Mg Tab FEEDTUBE 1 tab BID KRISTA Administration Simple Syrup 15 ml 12/16/21 11:15 Simple Syrup 15 Ml FEEDTUBE PRN PRN Hypoglycemia Simple Syrup 30 ml 12/16/21 11:15 Simple Syrup 15 Ml FEEDTUBE PRN PRN Hypoglycemia Sodium Bicarbonate 325 mg 12/16/21 11:15 Sodium Bicarbonate 325 Mg Tab FEEDTUBE PRN PRN For Clogged Feeding Tube Sodium Chloride 10 ml 12/11/21 22:11 12/20/21 09:16 Sodium Chloride 0.9% 10 Ml Flush Syringe IV 10 ml PRN PRN Administration LINE FLUSH Nutrition/Malnutrition Assess - Dietary Evaluation Nutrition/Malnutrition Findings: Nutrition Notes Start: 12/12/21 11:57 Freq: Status: Active Protocol: Document 12/19/21 17:08 EVERARDO (Rec: 12/19/21 17:19 EVERARDO [id number]) Nutrition Notes Initial or Follow up Brief Note Current Diagnosis CKD (stage V CKD),Diabetes, Sepsis,Hypertension, Respiratory Failure Other Pertinent Diagnosis CKD+HD, Hypotension, GPC Bacteremia, s/p Fall, ... Current Diet TF-Nepro w/CARBSTEADY @ 30 ml/ hr (from L 12/17). Height 4 ft 11 in Weight 66.5 kg [place] Body Weight (kg) 43.18 BMI 29.6 Weight change and time frame 7.6 Kg body weight gain in 3 days reported. Weight Status Overweight Subjective/Other Information RD consult for routine F/U on TF tolerance assessment. TF continues as prescribed, TF restarted after belching episode. Will continue to monitor at F/U. RN Note on 12/19/21 09:29: 0730-Upon assessment of patient tube feedings noted to still be held at this time. Gastric residuals checked and contained 40cc of dark green bile. Patient had a small belching episode while assessment and oral care was going on. [employer] made aware. Tube feeds to remain held at this time. Pending xray results of stomach. Reglan to be given ( See MAR). Addendum entered by FRED VIVEROS RN 12/19/21 09:52: 0950-[employer] okayed to restart tube feeds at low rate (10cc/hr) for goal of 30 cc/ hr. Percent of energy/protein needs met: Prescribed TF-Nepro w/ CARBSTEADY @ 30 ml/hr provides for energy/protein needs (1, 296 Kcal/58 g) during LOS, 103 % Kcal; 82% AA. #1 Nutrition Diagnosis Inadequate oral intake Diagnosis Progress(for reassessment Continues documentation) Nutrition Intervention Nutrition Support: Continue TF-Nepro w/CARBSTEADY @ 30 ml/hr. Flush: 130 ml water Q 4 hr, or as per MD. Kcal 1,269 Protein (gm) 58 Carbohydrates (gm) 116 Fat (gm) 69 Fluid (mL) 523 Fiber (gm) 9 % RDI: 103% Kcal; 82% AA. Goal #1 Provide at least 75% of energy /protein needs through Enteral Feeding during LOS. Goal #2 Maintain body weight within +/ -3% of admission body weight during LOS. Follow-Up By: 12/22/21 Additional Comments Continue monitoring TF tolerance and BM.
--- NOTE | 2021-12-20 11:07 | Progress Note ---
Assessment and Plan Septic shock Bacteremia with gram-positive cocci End-stage renal disease on dialysis Acute toxic metabolic encephalopathy Non-ST elevation myocardial infarction A-Fib with RVR Hypertension Diabetes type 2 Anemia that is normocytic (AMS is the rate limiting factor for safe extubation so far but improving) - follow EEG report (no clinical seizures) - continue daytime SBT's as tolerated - wound care per RN / WCN - prn vasopressors for target MAP > 65 mmHg - continue Solumedrol 60 mg IV bid (taper per hematology) - follow HIT assay - continue care as below otherwise; - Daily SAT and SBT assessment as tolerated - continue to wean supplemental oxygen for target O2 sat's > 90% acutely - VAP bundle addressed - continue lung protective strategies - continue bronchodilators with pulmonary hygiene per RT - wean per pulmonary driven protocols otherwise - continue HD/UF for toxin and volume clearance - avoid nephrotoxins, renally dose all medications - continue to avoid benzodiazepine's, reduce the possibility of delirium - complete AB's per ID rec's (On Rocephin) - prn analgesia per CPOT score - Maintenance of sleep-wake cycle, avoid delirium - continue enteral nutritional support at goal rate as tolerated - G.I. & VTE prophylaxis - PT/OT/ROM exercises - continue mobility protocols for pressure ulcer prophylaxis - Monitor hemodynamics closely - continue other care per attending / other consultants - discharge planning ongoing concurrently .... Re-evaluate in am & prn CONDITION: CRITICAL PROGNOSIS: GUARDED CODE STATUS: FULL CODE The high probability of a clinically significant, sudden or life-threatening deterioration of the [respiratory, cardiovascular, renal & neurologic] system(s) required my full and direct attention, intervention and personal management. The aggregate critical care time was [32] minutes without overlap. Time includes spent on; [x] Data Review and interpretation [x] Patient assessment and monitoring of vital signs [x] Documentation [x] Medication orders and management Subjective Date of service: 12/20/21 Principal diagnosis: Septic shock ; Bacteremia; ESRD on dialysis; AMS; NSTEMI; HTN; DM II Interval history: Patient is seen today for: Septic shock ; gm +ve Bacteremia; ESRD on dialysis; A MS; NSTEMI; Hypertension; DM II Seen and examined at bedside; 24hour events reviewed; nursing and respiratory care staff consulted; no adverse overnight events reported to me; resting peacefully in bed; remains on MVS; off vasopresors; AMS is persistent but improving; she followed some simple prompts with RN; no emesis or overt aspiration; afebrile; HD/UF ongoing at time of my evaluation Objective Vital Signs - 12hr 12/19/21 12/19/21 12/20/21 23:28 23:31 00:00 Temperature 99.8 F H Pulse Rate 85 96 H 77 Pulse Rate [ Anterior Bilateral Throughout] Pulse Rate [ 76 From Monitor] Respiratory 18 12 Rate Respiratory Rate [Anterior Bilateral Throughout] Blood Pressure 132/78 132/78 120/64 O2 Sat by Pulse 100 100 100 Oximetry O2 Sat by Pulse Oximetry [ Anterior Bilateral Throughout] 12/20/21 12/20/21 12/20/21 00:30 01:00 01:30 Temperature Pulse Rate 78 74 76 Pulse Rate [ Anterior Bilateral Throughout] Pulse Rate [ From Monitor] Respiratory 14 12 12 Rate Respiratory Rate [Anterior Bilateral Throughout] Blood Pressure 114/62 108/54 113/57 O2 Sat by Pulse 100 100 100 Oximetry O2 Sat by Pulse Oximetry [ Anterior Bilateral Throughout] 12/20/21 12/20/21 12/20/21 02:00 02:30 03:00 Temperature Pulse Rate 133 H 134 H 134 H Pulse Rate [ Anterior Bilateral Throughout] Pulse Rate [ From Monitor] Respiratory 14 14 14 Rate Respiratory Rate [Anterior Bilateral Throughout] Blood Pressure 130/70 123/65 123/65 O2 Sat by Pulse 100 100 100 Oximetry O2 Sat by Pulse Oximetry [ Anterior Bilateral Throughout] 12/20/21 12/20/21 12/20/21 03:30 03:54 04:00 Temperature 100.4 F H Pulse Rate 80 78 Pulse Rate [ Anterior Bilateral Throughout] Pulse Rate [ 77 From Monitor] Respiratory 13 14 Rate Respiratory Rate [Anterior Bilateral Throughout] Blood Pressure 110/56 113/59 O2 Sat by Pulse 100 100 Oximetry O2 Sat by Pulse Oximetry [ Anterior Bilateral Throughout] 12/20/21 12/20/21 12/20/21 04:02 04:30 05:00 Temperature Pulse Rate 88 71 68 Pulse Rate [ Anterior Bilateral Throughout] Pulse Rate [ From Monitor] Respiratory 12 9 L Rate Respiratory Rate [Anterior Bilateral Throughout] Blood Pressure 113/59 106/56 103/49 O2 Sat by Pulse 100 100 100 Oximetry O2 Sat by Pulse Oximetry [ Anterior Bilateral Throughout] 12/20/21 12/20/21 12/20/21 05:30 06:00 06:30 Temperature Pulse Rate 68 67 70 Pulse Rate [ Anterior Bilateral Throughout] Pulse Rate [ From Monitor] Respiratory 0 L 13 14 Rate Respiratory Rate [Anterior Bilateral Throughout] Blood Pressure 109/54 109/50 113/53 O2 Sat by Pulse 100 100 100 Oximetry O2 Sat by Pulse Oximetry [ Anterior Bilateral Throughout] 12/20/21 12/20/21 12/20/21 07:00 07:21 07:30 Temperature 100.0 F H Pulse Rate 73 70 Pulse Rate [ Anterior Bilateral Throughout] Pulse Rate [ From Monitor] Respiratory 21 13 Rate Respiratory Rate [Anterior Bilateral Throughout] Blood Pressure 114/58 115/59 O2 Sat by Pulse 100 100 Oximetry O2 Sat by Pulse Oximetry [ Anterior Bilateral Throughout] 12/20/21 12/20/21 12/20/21 07:53 08:00 08:04 Temperature 100.0 F H Pulse Rate 69 75 Pulse Rate [ 73 Anterior Bilateral Throughout] Pulse Rate [ 74 From Monitor] Respiratory 16 Rate Respiratory 14 Rate [Anterior Bilateral Throughout] Blood Pressure 119/57 123/67 O2 Sat by Pulse 100 100 Oximetry O2 Sat by Pulse Oximetry [ Anterior Bilateral Throughout] 12/20/21 12/20/21 12/20/21 08:30 09:00 10:00 Temperature 100 F H Pulse Rate 74 72 70 Pulse Rate [ Anterior Bilateral Throughout] Pulse Rate [ From Monitor] Respiratory 10 L 11 L 14 Rate Respiratory Rate [Anterior Bilateral Throughout] Blood Pressure 121/67 115/61 121/61 O2 Sat by Pulse 100 100 Oximetry O2 Sat by Pulse 100 Oximetry [ Anterior Bilateral Throughout] 12/20/21 12/20/21 12/20/21 10:15 10:30 10:45 Temperature Pulse Rate 68 66 65 Pulse Rate [ Anterior Bilateral Throughout] Pulse Rate [ From Monitor] Respiratory Rate Respiratory Rate [Anterior Bilateral Throughout] Blood Pressure 121/64 117/59 121/63 O2 Sat by Pulse Oximetry O2 Sat by Pulse Oximetry [ Anterior Bilateral Throughout] 12/20/21 11:00 Temperature Pulse Rate 65 Pulse Rate [ Anterior Bilateral Throughout] Pulse Rate [ From Monitor] Respiratory Rate Respiratory Rate [Anterior Bilateral Throughout] Blood Pressure 125/66 O2 Sat by Pulse Oximetry O2 Sat by Pulse Oximetry [ Anterior Bilateral Throughout] Constitutional: no acute distress, other (elderly female with mildly increased respiratory effort at rest) Eyes: non-icteric ENT: oropharynx moist, other (ETT 23 cm JUSTIN) Neck: supple, no JVD Effort: mildly labored Ascultation: Bilateral: rhonchi (scant) Percussion: Bilateral: not dull Cardiovascular: regular rate and rhythm Gastrointestinal: normoactive bowel sounds, soft, non-tender, non-distended (protuberant) Integumentary: rash (right groin / ? scar), other (Left upper extremity AV graft; right forearm blisters (open and closed) and induration; no pus) Extremities: no cyanosis, pulses normal, no ischemia or petechiae, edema (right upper extremity) Neurologic: non-focal exam (grossly), pupils equal and round, unable to assess Psychiatric: other (unable to assess re: AMS) CBC and BMP: 12/21/21 08:00 12/21/21 08:35 ABG, PT/INR, D-dimer: ABG ABG pH 7.383 pH Units (7.350-7.450) 12/18/21 20:00 ABG pCO2 45.6 mm Hg 12/18/21 20:00 ABG pO2 62.5 mm Hg (80.0-90.0) L 12/18/21 20:00 ABG O2 Saturation 91.7 % (95.0-99.0) L 12/18/21 20:00 PT/INR, D-dimer PT 17.4 Sec. (12.2-14.9) H 12/17/21 18:32 INR 1.27 (0.87-1.13) H 12/17/21 18:32 Abnormal lab findings: Abnormal Labs 12/11/21 12/11/21 12/12/21 14:52 15:40 04:43 WBC RBC 3.57 L Hgb 9.4 L Hct 29.5 L MCH 26 L 27 L RDW 17.8 H 17.9 H Plt Count 119 L 110 L Lymph % (Auto) 4.0 L Lymph # (Auto) 0.3 L Seg Neutrophils % 90.0 H Seg Neuts % (Manual) Lymphocytes % (Manual) Monocytes % (Manual) Nucleated RBC % Seg Neutrophils # Seg Neutrophils # Man Lymphocytes # (Manual) Percent Retic PT INR Fibrinogen ABG pH ABG pO2 ABG HCO3 ABG O2 Saturation ABG Base Excess ABG Hemoglobin VBG pO2 Oxyhemoglobin Sodium Potassium Chloride Carbon Dioxide 18 L BUN 76 H Creatinine 9.2 H Glucose POC Glucose Lactic Acid Calcium 7.7 L Phosphorus Magnesium Iron TIBC Ferritin Alkaline Phosphatase 237 H Troponin T 0.168 H* C-Reactive Protein Albumin 3.6 L LDL Cholesterol Direct 16 L 12/12/21 12/12/21 12/12/21 04:43 04:43 08:49 WBC RBC Hgb Hct MCH RDW Plt Count Lymph % (Auto) Lymph # (Auto) Seg Neutrophils % Seg Neuts % (Manual) Lymphocytes % (Manual) Monocytes % (Manual) Nucleated RBC % Seg Neutrophils # Seg Neutrophils # Man Lymphocytes # (Manual) Percent Retic PT INR Fibrinogen ABG pH ABG pO2 ABG HCO3 ABG O2 Saturation ABG Base Excess ABG Hemoglobin VBG pO2 Oxyhemoglobin Sodium 136 L Potassium Chloride 96.0 L Carbon Dioxide BUN 85 H Creatinine 9.6 H Glucose 57 L POC Glucose 47 L Lactic Acid Calcium 7.8 L Phosphorus Magnesium Iron TIBC Ferritin Alkaline Phosphatase Troponin T 0.175 H* C-Reactive Protein Albumin LDL Cholesterol Direct 12/12/21 12/13/21 12/13/21 11:12 07:30 07:30 WBC RBC Hgb 9.7 L Hct 30.0 L MCH 27 L RDW 18.0 H Plt Count 99 L Lymph % (Auto) 4.8 L Lymph # (Auto) 0.3 L Seg Neutrophils % 88.2 H Seg Neuts % (Manual) Lymphocytes % (Manual) Monocytes % (Manual) Nucleated RBC % Seg Neutrophils # Seg Neutrophils # Man Lymphocytes # (Manual) Percent Retic PT INR Fibrinogen ABG pH ABG pO2 ABG HCO3 ABG O2 Saturation ABG Base Excess ABG Hemoglobin VBG pO2 Oxyhemoglobin Sodium Potassium 5.1 H Chloride 97.8 L Carbon Dioxide 16 L BUN 92 H Creatinine 10.6 H Glucose 121 H POC Glucose 64 L Lactic Acid Calcium 7.6 L Phosphorus Magnesium Iron TIBC Ferritin Alkaline Phosphatase Troponin T C-Reactive Protein Albumin LDL Cholesterol Direct 12/13/21 12/13/21 12/13/21 08:06 11:32 16:59 WBC RBC Hgb Hct MCH RDW Plt Count Lymph % (Auto) Lymph # (Auto) Seg Neutrophils % Seg Neuts % (Manual) Lymphocytes % (Manual) Monocytes % (Manual) Nucleated RBC % Seg Neutrophils # Seg Neutrophils # Man Lymphocytes # (Manual) Percent Retic PT INR Fibrinogen ABG pH ABG pO2 ABG HCO3 ABG O2 Saturation ABG Base Excess ABG Hemoglobin VBG pO2 Oxyhemoglobin Sodium Potassium Chloride Carbon Dioxide BUN Creatinine Glucose POC Glucose 118 H 128 H 130 H Lactic Acid Calcium Phosphorus Magnesium Iron TIBC Ferritin Alkaline Phosphatase Troponin T C-Reactive Protein Albumin LDL Cholesterol Direct 12/13/21 12/14/21 12/14/21 20:16 11:10 11:10 WBC RBC Hgb 9.9 L Hct MCH 27 L RDW 18.1 H Plt Count 82 L Lymph % (Auto) 5.8 L Lymph # (Auto) 0.4 L Seg Neutrophils % 88.3 H Seg Neuts % (Manual) Lymphocytes % (Manual) Monocytes % (Manual) Nucleated RBC % Seg Neutrophils # Seg Neutrophils # Man Lymphocytes # (Manual) Percent Retic PT INR Fibrinogen ABG pH ABG pO2 ABG HCO3 ABG O2 Saturation ABG Base Excess ABG Hemoglobin VBG pO2 Oxyhemoglobin Sodium Potassium Chloride Carbon Dioxide 21 L BUN 57 H Creatinine 7.1 H Glucose 105 H POC Glucose 113 H Lactic Acid Calcium Phosphorus Magnesium Iron TIBC Ferritin Alkaline Phosphatase Troponin T C-Reactive Protein Albumin LDL Cholesterol Direct 12/14/21 12/14/21 12/15/21 11:46 16:41 04:11 WBC RBC Hgb 9.9 L Hct 30.0 L MCH 27 L RDW 18.4 H Plt Count 57 L Lymph % (Auto) Lymph # (Auto) Seg Neutrophils % Seg Neuts % (Manual) Lymphocytes % (Manual) 9.0 L Monocytes % (Manual) 10.0 H Nucleated RBC % Seg Neutrophils # Seg Neutrophils # Man Lymphocytes # (Manual) 0.6 L Percent Retic PT INR Fibrinogen ABG pH ABG pO2 ABG HCO3 ABG O2 Saturation ABG Base Excess ABG Hemoglobin VBG pO2 Oxyhemoglobin Sodium Potassium Chloride Carbon Dioxide BUN Creatinine Glucose POC Glucose 108 H 111 H Lactic Acid Calcium Phosphorus Magnesium Iron TIBC Ferritin Alkaline Phosphatase Troponin T C-Reactive Protein Albumin LDL Cholesterol Direct 12/15/21 12/15/21 12/15/21 04:11 08:48 10:02 WBC RBC Hgb Hct MCH RDW Plt Count Lymph % (Auto) Lymph # (Auto) Seg Neutrophils % Seg Neuts % (Manual) Lymphocytes % (Manual) Monocytes % (Manual) Nucleated RBC % Seg Neutrophils # Seg Neutrophils # Man Lymphocytes # (Manual) Percent Retic PT INR Fibrinogen ABG pH ABG pO2 ABG HCO3 ABG O2 Saturation ABG Base Excess ABG Hemoglobin VBG pO2 Oxyhemoglobin Sodium Potassium Chloride Carbon Dioxide 19 L BUN 68 H Creatinine 7.6 H Glucose POC Glucose 68 L 65 L Lactic Acid Calcium 8.1 L Phosphorus Magnesium Iron TIBC Ferritin Alkaline Phosphatase Troponin T C-Reactive Protein Albumin LDL Cholesterol Direct 12/15/21 12/15/21 12/15/21 10:20 10:51 14:40 WBC RBC Hgb Hct MCH RDW Plt Count Lymph % (Auto) Lymph # (Auto) Seg Neutrophils % Seg Neuts % (Manual) Lymphocytes % (Manual) Monocytes % (Manual) Nucleated RBC % Seg Neutrophils # Seg Neutrophils # Man Lymphocytes # (Manual) Percent Retic PT INR Fibrinogen ABG pH ABG pO2 ABG HCO3 ABG O2 Saturation ABG Base Excess ABG Hemoglobin VBG pO2 Oxyhemoglobin Sodium Potassium Chloride Carbon Dioxide BUN Creatinine Glucose POC Glucose 59 L 60 L Lactic Acid 2.50 H* Calcium Phosphorus Magnesium Iron TIBC Ferritin Alkaline Phosphatase Troponin T C-Reactive Protein Albumin LDL Cholesterol Direct 12/15/21 12/15/21 12/16/21 14:40 19:50 05:00 WBC 12.4 H RBC Hgb 9.6 L Hct 29.4 L MCH 26 L RDW 18.1 H Plt Count 40 L Lymph % (Auto) Lymph # (Auto) Seg Neutrophils % Seg Neuts % (Manual) 95.0 H Lymphocytes % (Manual) 5.0 L Monocytes % (Manual) Nucleated RBC % Seg Neutrophils # Seg Neutrophils # Man 11.8 H Lymphocytes # (Manual) 0.6 L Percent Retic PT INR Fibrinogen ABG pH ABG pO2 463.3 H ABG HCO3 ABG O2 Saturation 99.6 H ABG Base Excess ABG Hemoglobin 10.9 L VBG pO2 > 258.0 H Oxyhemoglobin Sodium Potassium Chloride Carbon Dioxide BUN Creatinine Glucose POC Glucose Lactic Acid Calcium Phosphorus Magnesium Iron TIBC Ferritin Alkaline Phosphatase Troponin T C-Reactive Protein 38.50 H Albumin LDL Cholesterol Direct 12/16/21 12/16/21 12/16/21 05:00 06:15 09:58 WBC RBC Hgb Hct MCH RDW Plt Count Lymph % (Auto) Lymph # (Auto) Seg Neutrophils % Seg Neuts % (Manual) Lymphocytes % (Manual) Monocytes % (Manual) Nucleated RBC % Seg Neutrophils # Seg Neutrophils # Man Lymphocytes # (Manual) Percent Retic PT INR Fibrinogen ABG pH ABG pO2 48.0 L ABG HCO3 ABG O2 Saturation 80.5 L ABG Base Excess -2.9 L ABG Hemoglobin 11.2 L VBG pO2 Oxyhemoglobin 78.8 L Sodium Potassium Chloride Carbon Dioxide BUN 75 H Creatinine 7.7 H Glucose POC Glucose 67 L Lactic Acid Calcium 8.3 L Phosphorus Magnesium Iron TIBC Ferritin Alkaline Phosphatase Troponin T C-Reactive Protein Albumin LDL Cholesterol Direct 12/16/21 12/16/21 12/17/21 11:06 23:24 04:00 WBC 12.3 H RBC 3.32 L Hgb 8.8 L Hct 26.5 L MCH 26 L RDW 18.0 H Plt Count 27 L Lymph % (Auto) 5.9 L Lymph # (Auto) 0.7 L Seg Neutrophils % 88.3 H Seg Neuts % (Manual) Lymphocytes % (Manual) Monocytes % (Manual) Nucleated RBC % Seg Neutrophils # 10.9 H Seg Neutrophils # Man Lymphocytes # (Manual) Percent Retic PT INR Fibrinogen ABG pH ABG pO2 137.7 H ABG HCO3 ABG O2 Saturation ABG Base Excess ABG Hemoglobin 9.9 L VBG pO2 Oxyhemoglobin Sodium Potassium Chloride Carbon Dioxide BUN Creatinine Glucose POC Glucose 110 H Lactic Acid Calcium Phosphorus Magnesium Iron TIBC Ferritin Alkaline Phosphatase Troponin T C-Reactive Protein Albumin LDL Cholesterol Direct 12/17/21 12/17/21 12/17/21 04:30 04:30 11:18 WBC RBC Hgb Hct MCH RDW Plt Count Lymph % (Auto) Lymph # (Auto) Seg Neutrophils % Seg Neuts % (Manual) Lymphocytes % (Manual) Monocytes % (Manual) Nucleated RBC % Seg Neutrophils # Seg Neutrophils # Man Lymphocytes # (Manual) Percent Retic PT INR Fibrinogen ABG pH ABG pO2 ABG HCO3 ABG O2 Saturation ABG Base Excess ABG Hemoglobin VBG pO2 Oxyhemoglobin Sodium Potassium Chloride Carbon Dioxide BUN 43 H Creatinine 5.0 H Glucose 129 H POC Glucose 149 H Lactic Acid Calcium 7.8 L Phosphorus 1.90 L Magnesium 1.60 L Iron TIBC Ferritin Alkaline Phosphatase Troponin T C-Reactive Protein Albumin LDL Cholesterol Direct 12/17/21 12/17/21 12/17/21 14:35 16:58 18:32 WBC RBC Hgb Hct MCH RDW Plt Count Lymph % (Auto) Lymph # (Auto) Seg Neutrophils % Seg Neuts % (Manual) Lymphocytes % (Manual) Monocytes % (Manual) Nucleated RBC % Seg Neutrophils # Seg Neutrophils # Man Lymphocytes # (Manual) Percent Retic PT 17.4 H INR 1.27 H Fibrinogen 486 H ABG pH 7.316 L ABG pO2 74.0 L ABG HCO3 ABG O2 Saturation 93.7 L ABG Base Excess -3.3 L ABG Hemoglobin 8.8 L VBG pO2 Oxyhemoglobin 91.7 L Sodium Potassium Chloride Carbon Dioxide BUN Creatinine Glucose POC Glucose 219 H Lactic Acid Calcium Phosphorus Magnesium Iron TIBC Ferritin Alkaline Phosphatase Troponin T C-Reactive Protein Albumin LDL Cholesterol Direct 12/17/21 12/18/21 12/18/21 23:19 05:00 05:00 WBC 15.3 H RBC 3.25 L Hgb 8.4 L Hct 25.7 L MCH 26 L RDW 18.2 H Plt Count 28 L Lymph % (Auto) Lymph # (Auto) Seg Neutrophils % Seg Neuts % (Manual) 99.0 H Lymphocytes % (Manual) 1.0 L Monocytes % (Manual) Nucleated RBC % 1.0 H Seg Neutrophils # Seg Neutrophils # Man 15.1 H Lymphocytes # (Manual) 0.2 L Percent Retic 0.37 L PT INR Fibrinogen ABG pH ABG pO2 ABG HCO3 ABG O2 Saturation ABG Base Excess ABG Hemoglobin VBG pO2 Oxyhemoglobin Sodium 135 L Potassium Chloride Carbon Dioxide 20 L BUN 53 H Creatinine 5.2 H Glucose 307 H POC Glucose 313 H Lactic Acid Calcium 8.0 L Phosphorus Magnesium Iron 13 L TIBC 109 L Ferritin Alkaline Phosphatase Troponin T C-Reactive Protein Albumin LDL Cholesterol Direct 12/18/21 12/18/21 12/18/21 05:00 05:00 09:00 WBC RBC Hgb Hct MCH RDW Plt Count Lymph % (Auto) Lymph # (Auto) Seg Neutrophils % Seg Neuts % (Manual) Lymphocytes % (Manual) Monocytes % (Manual) Nucleated RBC % Seg Neutrophils # Seg Neutrophils # Man Lymphocytes # (Manual) Percent Retic PT INR Fibrinogen 481 H ABG pH ABG pO2 50.2 L ABG HCO3 ABG O2 Saturation 81.7 L ABG Base Excess -3.6 L ABG Hemoglobin 8.0 L VBG pO2 Oxyhemoglobin 80.0 L Sodium Potassium Chloride Carbon Dioxide BUN Creatinine Glucose POC Glucose Lactic Acid Calcium Phosphorus Magnesium Iron TIBC Ferritin 383.4 H Alkaline Phosphatase Troponin T C-Reactive Protein Albumin LDL Cholesterol Direct 12/18/21 12/18/21 12/18/21 10:56 11:10 12:00 WBC RBC Hgb Hct MCH RDW Plt Count Lymph % (Auto) Lymph # (Auto) Seg Neutrophils % Seg Neuts % (Manual) Lymphocytes % (Manual) Monocytes % (Manual) Nucleated RBC % Seg Neutrophils # Seg Neutrophils # Man Lymphocytes # (Manual) Percent Retic PT INR Fibrinogen ABG pH ABG pO2 92.7 H ABG HCO3 19.8 L ABG O2 Saturation ABG Base Excess -3.8 L ABG Hemoglobin 6.6 L VBG pO2 Oxyhemoglobin Sodium Potassium Chloride Carbon Dioxide BUN Creatinine Glucose POC Glucose 190 H Lactic Acid Calcium Phosphorus 2.40 L D Magnesium Iron TIBC Ferritin Alkaline Phosphatase Troponin T C-Reactive Protein Albumin LDL Cholesterol Direct 12/18/21 12/18/21 12/18/21 18:06 20:00 23:05 WBC 19.2 H RBC 3.51 L Hgb 8.8 L Hct 27.8 L MCH 25 L RDW 18.1 H Plt Count 34 L Lymph % (Auto) Lymph # (Auto) Seg Neutrophils % Seg Neuts % (Manual) Lymphocytes % (Manual) Monocytes % (Manual) Nucleated RBC % Seg Neutrophils # Seg Neutrophils # Man Lymphocytes # (Manual) Percent Retic PT INR Fibrinogen ABG pH ABG pO2 62.5 L ABG HCO3 26.6 H ABG O2 Saturation 91.7 L ABG Base Excess ABG Hemoglobin 8.4 L VBG pO2 Oxyhemoglobin 89.9 L Sodium Potassium Chloride Carbon Dioxide BUN Creatinine Glucose POC Glucose 156 H Lactic Acid Calcium Phosphorus Magnesium Iron TIBC Ferritin Alkaline Phosphatase Troponin T C-Reactive Protein Albumin LDL Cholesterol Direct 12/18/21 12/19/21 12/19/21 23:54 05:00 05:00 WBC 18.9 H RBC 3.29 L Hgb 8.4 L Hct 26.0 L MCH 26 L RDW 18.2 H Plt Count 34 L Lymph % (Auto) Lymph # (Auto) Seg Neutrophils % Seg Neuts % (Manual) 93.0 H Lymphocytes % (Manual) 2.0 L Monocytes % (Manual) Nucleated RBC % Seg Neutrophils # Seg Neutrophils # Man 17.6 H Lymphocytes # (Manual) 0.4 L Percent Retic PT INR Fibrinogen ABG pH ABG pO2 ABG HCO3 ABG O2 Saturation ABG Base Excess ABG Hemoglobin VBG pO2 Oxyhemoglobin Sodium Potassium Chloride Carbon Dioxide BUN 30 H Creatinine 3.1 H Glucose 155 H POC Glucose 122 H Lactic Acid Calcium 8.2 L Phosphorus Magnesium Iron TIBC Ferritin Alkaline Phosphatase Troponin T C-Reactive Protein Albumin LDL Cholesterol Direct 12/19/21 12/19/21 12/19/21 05:29 11:41 17:48 WBC RBC Hgb Hct MCH RDW Plt Count Lymph % (Auto) Lymph # (Auto) Seg Neutrophils % Seg Neuts % (Manual) Lymphocytes % (Manual) Monocytes % (Manual) Nucleated RBC % Seg Neutrophils # Seg Neutrophils # Man Lymphocytes # (Manual) Percent Retic PT INR Fibrinogen ABG pH ABG pO2 ABG HCO3 ABG O2 Saturation ABG Base Excess ABG Hemoglobin VBG pO2 Oxyhemoglobin Sodium Potassium Chloride Carbon Dioxide BUN Creatinine Glucose POC Glucose 153 H 164 H 113 H Lactic Acid Calcium Phosphorus Magnesium Iron TIBC Ferritin Alkaline Phosphatase Troponin T C-Reactive Protein Albumin LDL Cholesterol Direct 12/19/21 12/20/21 12/20/21 23:53 04:45 04:45 WBC 15.0 H RBC 3.39 L Hgb 8.4 L Hct 26.8 L MCH 25 L RDW 17.8 H Plt Count 36 L Lymph % (Auto) Lymph # (Auto) Seg Neutrophils % Seg Neuts % (Manual) Lymphocytes % (Manual) Monocytes % (Manual) Nucleated RBC % Seg Neutrophils # Seg Neutrophils # Man Lymphocytes # (Manual) Percent Retic PT INR Fibrinogen ABG pH ABG pO2 ABG HCO3 ABG O2 Saturation ABG Base Excess ABG Hemoglobin VBG pO2 Oxyhemoglobin Sodium 135 L Potassium Chloride 96.1 L Carbon Dioxide BUN 48 H Creatinine 3.9 H Glucose 188 H POC Glucose 157 H Lactic Acid Calcium 8.1 L Phosphorus Magnesium Iron TIBC Ferritin Alkaline Phosphatase Troponin T C-Reactive Protein Albumin LDL Cholesterol Direct 12/20/21 05:07 WBC RBC Hgb Hct MCH RDW Plt Count Lymph % (Auto) Lymph # (Auto) Seg Neutrophils % Seg Neuts % (Manual) Lymphocytes % (Manual) Monocytes % (Manual) Nucleated RBC % Seg Neutrophils # Seg Neutrophils # Man Lymphocytes # (Manual) Percent Retic PT INR Fibrinogen ABG pH ABG pO2 ABG HCO3 ABG O2 Saturation ABG Base Excess ABG Hemoglobin VBG pO2 Oxyhemoglobin Sodium Potassium Chloride Carbon Dioxide BUN Creatinine Glucose POC Glucose 169 H Lactic Acid Calcium Phosphorus Magnesium Iron TIBC Ferritin Alkaline Phosphatase Troponin T C-Reactive Protein Albumin LDL Cholesterol Direct Additional Studies: CT head -ve for bleed Allied health notes reviewed: nursing
--- NOTE | 2021-12-20 11:11 | Progress Note ---
Assessment and Plan - Patient Problems (1) Syncope Current Visit: Yes Status: Acute Plan to address problem: Patient admitted with episode of transient dizziness causing a fall which resulted in right hip pain. She has end-stage renal disease on hemodialysis, had missed at least 1 dialysis session prior to admission. Recently relocated here from [place]. Echocardiogram done in this hospital on a prior admission 2 weeks ago showed a moderate severity cardiomyopathy, ejection fraction 35 to 40%. The etiology of her cardiomyopathy is not known at this time, we do not have her records from [place] for review. Hospital course is now complicated by development of sepsis, with four positive blood cultures. Suspected source is the indwelling Vas-Cath. Transthoracic echo shows no evidence of valvular vegetation. Subjective Date of service: 12/20/21 Principal diagnosis: Septic shock ; Bacteremia; ESRD on dialysis; AMS; NSTEMI; HTN; DM II Interval history: Patient is on the vent, currently undergoing dialysis. She opens eyes but unable to follow commands. Stable sinus rhythm at 68, systolic blood pressure 121. Objective Vital Signs Temp Pulse Pulse Pulse Resp Resp BP 12/20/21 11:00 65 125/66 12/20/21 10:45 65 121/63 12/20/21 10:30 66 117/59 12/20/21 10:15 68 121/64 12/20/21 10:00 100 F H 70 14 121/61 12/20/21 09:00 72 11 L 115/61 12/20/21 08:30 74 10 L 121/67 12/20/21 08:04 73 14 12/20/21 08:00 100.0 F H 75 74 16 123/67 12/20/21 07:53 69 119/57 12/20/21 07:30 70 13 115/59 12/20/21 07:21 100.0 F H 12/20/21 07:00 73 21 114/58 12/20/21 06:30 70 14 113/53 12/20/21 06:00 67 13 109/50 12/20/21 05:30 68 0 L 109/54 12/20/21 05:00 68 9 L 103/49 12/20/21 04:30 71 12 106/56 12/20/21 04:02 88 113/59 12/20/21 04:00 78 77 14 113/59 12/20/21 03:54 100.4 F H 12/20/21 03:30 80 13 110/56 12/20/21 03:00 134 H 14 123/65 12/20/21 02:30 134 H 14 123/65 12/20/21 02:00 133 H 14 130/70 12/20/21 01:30 76 12 113/57 12/20/21 01:00 74 12 108/54 12/20/21 00:30 78 14 114/62 12/20/21 00:00 99.8 F H 77 76 12 120/64 12/19/21 23:31 96 H 18 132/78 12/19/21 23:28 85 132/78 12/19/21 23:00 66 12 107/53 12/19/21 22:30 66 12 107/57 12/19/21 22:00 66 12 114/64 12/19/21 21:30 66 11 L 121/58 12/19/21 21:00 65 12 113/54 12/19/21 20:39 64 12 121/58 12/19/21 20:30 65 12 121/58 12/19/21 20:00 66 68 12 125/53 12/19/21 19:59 69 12 12/19/21 19:39 70 138/77 12/19/21 19:30 70 12 132/70 12/19/21 19:28 99.1 F 12/19/21 19:00 71 8 L 143/69 12/19/21 18:30 69 9 L 141/66 12/19/21 18:00 76 22 145/75 12/19/21 17:30 69 18 138/65 12/19/21 17:00 66 8 L 126/64 12/19/21 16:47 67 8 L 144/94 12/19/21 16:00 85 14 144/94 12/19/21 15:38 60 9 L 12/19/21 15:37 98.3 F 61 12/19/21 15:31 60 7 L 132/60 12/19/21 15:01 61 7 L 125/64 12/19/21 14:45 61 13 12/19/21 14:30 61 8 L 117/67 12/19/21 14:00 70 11 L 116/76 12/19/21 13:30 64 7 L 122/71 12/19/21 13:00 66 7 L 124/67 12/19/21 12:30 61 8 L 128/68 12/19/21 12:00 62 61 7 L 129/68 12/19/21 11:49 63 10 L 127/64 12/19/21 11:43 98.3 F 62 12/19/21 11:41 62 7 L 123/66 12/19/21 11:39 60 10 L 123/66 12/19/21 11:37 61 8 L 123/66 12/19/21 11:35 61 8 L 123/66 12/19/21 11:33 61 6 L 123/66 12/19/21 11:31 61 7 L 123/66 12/19/21 11:30 62 7 L 123/66 12/19/21 11:29 61 6 L 132/61 12/19/21 11:27 61 7 L 132/61 12/19/21 11:25 61 7 L 132/61 12/19/21 11:23 63 9 L 132/61 12/19/21 11:21 63 7 L 132/61 12/19/21 11:19 64 8 L 132/61 12/19/21 11:17 67 9 L 132/61 12/19/21 11:15 63 8 L 132/61 12/19/21 11:13 65 8 L 133/64 12/19/21 11:11 62 8 L 133/64 Pulse Ox Pulse Ox 12/20/21 11:00 12/20/21 10:45 12/20/21 10:30 12/20/21 10:15 12/20/21 10:00 100 12/20/21 09:00 100 12/20/21 08:30 100 12/20/21 08:04 12/20/21 08:00 100 12/20/21 07:53 100 12/20/21 07:30 100 12/20/21 07:21 12/20/21 07:00 100 12/20/21 06:30 100 12/20/21 06:00 100 12/20/21 05:30 100 12/20/21 05:00 100 12/20/21 04:30 100 12/20/21 04:02 100 12/20/21 04:00 100 12/20/21 03:54 12/20/21 03:30 100 12/20/21 03:00 100 12/20/21 02:30 100 12/20/21 02:00 100 12/20/21 01:30 100 12/20/21 01:00 100 12/20/21 00:30 100 12/20/21 00:00 100 12/19/21 23:31 100 12/19/21 23:28 100 12/19/21 23:00 100 12/19/21 22:30 100 12/19/21 22:00 100 12/19/21 21:30 100 12/19/21 21:00 100 12/19/21 20:39 100 12/19/21 20:30 100 12/19/21 20:00 100 12/19/21 19:59 05 19:39 100 12/19/21 19:30 100 12/19/21 19:28 12/19/21 19:00 100 12/19/21 18:30 100 12/19/21 18:00 100 12/19/21 17:30 100 12/19/21 17:00 100 12/19/21 16:47 12/19/21 16:00 79 L 12/19/21 15:38 100 12/19/21 15:37 12/19/21 15:31 98 12/19/21 15:01 100 12/19/21 14:45 12/19/21 14:30 100 12/19/21 14:00 100 12/19/21 13:30 99 12/19/21 13:00 100 12/19/21 12:30 100 12/19/21 12:00 100 12/19/21 11:49 100 12/19/21 11:43 05 11:41 100 12/19/21 11:39 100 12/19/21 11:37 100 12/19/21 11:35 100 12/19/21 11:33 100 12/19/21 11:31 100 12/19/21 11:30 100 12/19/21 11:29 100 05 11:27 100 12/19/21 11:25 100 12/19/21 11:23 100 05 11:21 100 05 11:19 100 05 11:17 100 12/19/21 11:15 100 12/19/21 11:13 100 12/19/21 11:11 100 - Physical Examination General: Other (Sedated, on the vent) HEENT: Positive: PERRL Neck: Positive: neck supple Cardiac: Positive: Reg Rate and Rhythm Lungs: Positive: Decreased Breath Sounds Neuro: Positive: Other (Sedated, on the vent) Abdomen: Positive: Soft Skin: Positive: Clear Extremities: Absent: edema - Labs and Meds CBC 12/20/21 Range/Units 04:45 WBC 15.0 H (4.5-11.0) K/mm3 RBC 3.39 L (3.65-5.03) M/mm3 Hgb 8.4 L (10.1-14.3) gm/dl Hct 26.8 L (30.3-42.9) % Plt Count 36 L (140-440) K/mm3 Comprehensive Metabolic Panel 12/20/21 Range/Units 04:45 Sodium 135 L (137-145) mmol/L Potassium 4.2 (3.6-5.0) mmol/L Chloride 96.1 L (98-107) mmol/L Carbon Dioxide 22 (22-30) mmol/L BUN 48 H (7-17) mg/dL Creatinine 3.9 H (0.6-1.2) mg/dL Glucose 188 H (65-100) mg/dL Calcium 8.1 L (8.4-10.2) mg/dL - Allied health notes Allied health notes reviewed: nursing
--- NOTE | 2021-12-20 11:28 | Progress Note ---
Assessment and Plan Impression: * ESRD * s/p fall * hypotension * elevated troponin * type 2 DM * history of HTN * GPC bacteremia Plan: * maintain MAP>70, continue pressors prn * tolerated hd 5/5 via AVF * plan for HD TTHSAT if hemodynamically stable, seen on HD today * will attempt UF removal as able given soft but improving BPs * renal diet, fluid restriction * strict i/os and daily lytes * uf as tolerated with hd * note bacteremia- appreciate removal of PermCath. AVF working, no indication for acute intervention, appreciate IR/vascular * antibiotics per ID Subjective Date of service: 12/20/21 Principal diagnosis: Septic shock ; Bacteremia; ESRD on dialysis; AMS; NSTEMI; HTN; DM II Interval history: Remains intubated. FiO2 30%. Off Levophed. Undergoing dialysis, no issues noted per dialysis nurse at bedside Objective - Exam Narrative Exam: Constitutional: ill appearing, intubated, opening eyes today Head: NC/AT Neck: supple Lungs: coarse lung sounds CV: tachycardic Abdomen: soft, non-tender, bowel sounds present Back: nontender Extremities: no edema, pulses WNL Skin: intact Neuro: awake - Vital Signs Vital signs: Vital Signs - 12hr 12/19/21 12/19/21 12/20/21 23:28 23:31 00:00 Temperature 99.8 F H Pulse Rate 85 96 H 77 Pulse Rate [ Anterior Bilateral Throughout] Pulse Rate [ 76 From Monitor] Respiratory 18 12 Rate Respiratory Rate [Anterior Bilateral Throughout] Blood Pressure 132/78 132/78 120/64 O2 Sat by Pulse 100 100 100 Oximetry O2 Sat by Pulse Oximetry [ Anterior Bilateral Throughout] 12/20/21 12/20/21 12/20/21 00:30 01:00 01:30 Temperature Pulse Rate 78 74 76 Pulse Rate [ Anterior Bilateral Throughout] Pulse Rate [ From Monitor] Respiratory 14 12 12 Rate Respiratory Rate [Anterior Bilateral Throughout] Blood Pressure 114/62 108/54 113/57 O2 Sat by Pulse 100 100 100 Oximetry O2 Sat by Pulse Oximetry [ Anterior Bilateral Throughout] 12/20/21 12/20/21 12/20/21 02:00 02:30 03:00 Temperature Pulse Rate 133 H 134 H 134 H Pulse Rate [ Anterior Bilateral Throughout] Pulse Rate [ From Monitor] Respiratory 14 14 14 Rate Respiratory Rate [Anterior Bilateral Throughout] Blood Pressure 130/70 123/65 123/65 O2 Sat by Pulse 100 100 100 Oximetry O2 Sat by Pulse Oximetry [ Anterior Bilateral Throughout] 12/20/21 12/20/21 12/20/21 03:30 03:54 04:00 Temperature 100.4 F H Pulse Rate 80 78 Pulse Rate [ Anterior Bilateral Throughout] Pulse Rate [ 77 From Monitor] Respiratory 13 14 Rate Respiratory Rate [Anterior Bilateral Throughout] Blood Pressure 110/56 113/59 O2 Sat by Pulse 100 100 Oximetry O2 Sat by Pulse Oximetry [ Anterior Bilateral Throughout] 12/20/21 12/20/21 12/20/21 04:02 04:30 05:00 Temperature Pulse Rate 88 71 68 Pulse Rate [ Anterior Bilateral Throughout] Pulse Rate [ From Monitor] Respiratory 12 9 L Rate Respiratory Rate [Anterior Bilateral Throughout] Blood Pressure 113/59 106/56 103/49 O2 Sat by Pulse 100 100 100 Oximetry O2 Sat by Pulse Oximetry [ Anterior Bilateral Throughout] 12/20/21 12/20/21 12/20/21 05:30 06:00 06:30 Temperature Pulse Rate 68 67 70 Pulse Rate [ Anterior Bilateral Throughout] Pulse Rate [ From Monitor] Respiratory 0 L 13 14 Rate Respiratory Rate [Anterior Bilateral Throughout] Blood Pressure 109/54 109/50 113/53 O2 Sat by Pulse 100 100 100 Oximetry O2 Sat by Pulse Oximetry [ Anterior Bilateral Throughout] 12/20/21 12/20/21 12/20/21 07:00 07:21 07:30 Temperature 100.0 F H Pulse Rate 73 70 Pulse Rate [ Anterior Bilateral Throughout] Pulse Rate [ From Monitor] Respiratory 21 13 Rate Respiratory Rate [Anterior Bilateral Throughout] Blood Pressure 114/58 115/59 O2 Sat by Pulse 100 100 Oximetry O2 Sat by Pulse Oximetry [ Anterior Bilateral Throughout] 12/20/21 12/20/21 12/20/21 07:53 08:00 08:04 Temperature 100.0 F H Pulse Rate 69 75 Pulse Rate [ 73 Anterior Bilateral Throughout] Pulse Rate [ 74 From Monitor] Respiratory 16 Rate Respiratory 14 Rate [Anterior Bilateral Throughout] Blood Pressure 119/57 123/67 O2 Sat by Pulse 100 100 Oximetry O2 Sat by Pulse Oximetry [ Anterior Bilateral Throughout] 12/20/21 12/20/21 12/20/21 08:30 09:00 10:00 Temperature 100 F H Pulse Rate 74 72 70 Pulse Rate [ Anterior Bilateral Throughout] Pulse Rate [ From Monitor] Respiratory 10 L 11 L 14 Rate Respiratory Rate [Anterior Bilateral Throughout] Blood Pressure 121/67 115/61 121/61 O2 Sat by Pulse 100 100 Oximetry O2 Sat by Pulse 100 Oximetry [ Anterior Bilateral Throughout] 12/20/21 12/20/21 12/20/21 10:15 10:30 10:45 Temperature Pulse Rate 68 66 65 Pulse Rate [ Anterior Bilateral Throughout] Pulse Rate [ From Monitor] Respiratory Rate Respiratory Rate [Anterior Bilateral Throughout] Blood Pressure 121/64 117/59 121/63 O2 Sat by Pulse Oximetry O2 Sat by Pulse Oximetry [ Anterior Bilateral Throughout] 12/20/21 12/20/21 11:00 11:15 Temperature Pulse Rate 65 64 Pulse Rate [ Anterior Bilateral Throughout] Pulse Rate [ From Monitor] Respiratory Rate Respiratory Rate [Anterior Bilateral Throughout] Blood Pressure 125/66 122/67 O2 Sat by Pulse Oximetry O2 Sat by Pulse Oximetry [ Anterior Bilateral Throughout] Seen On HD: BP stable, UF goal 1.5L, Qb 350 via AVF - Lab 12/20/21 04:45 12/20/21 04:45 Most recent lab results ABG pH 7.383 pH Units (7.350-7.450) 12/18/21 20:00 ABG pCO2 45.6 mm Hg 12/18/21 20:00 ABG pO2 62.5 mm Hg (80.0-90.0) L 12/18/21 20:00 ABG HCO3 26.6 mmol/L (20.0-26.0) H 12/18/21 20:00 ABG O2 Saturation 91.7 % (95.0-99.0) L 12/18/21 20:00 Calcium 8.1 mg/dL (8.4-10.2) L 12/20/21 04:45 Phosphorus 4.50 mg/dL (2.5-4.5) D 12/19/21 21:19 Magnesium 2.10 mg/dL (1.7-2.3) 12/18/21 12:00 Medications & Allergies - Medications Allergies/Adverse Reactions: Allergies No Known Allergies Allergy (Verified 12/11/21 22:19) Home Medications: Home Medications Medication Instructions Recorded Confirmed Last Taken Type Albuterol Sulfate [Proair 2 puff IH Q6HR PRN 11/23/21 12/14/21 Unknown History Digihaler] Calcium Acetate 2 tab PO TID 11/23/21 12/14/21 Unknown History Fluticasone/Umeclidin/Vilanter 1 each IH DAILY 11/23/21 12/14/21 Unknown History [Treleallan Ellipta 100-62.5-25] Furosemide [Lasix TAB] 40 mg PO QDAY 11/23/21 12/14/21 Unknown History Insulin Aspart (Nf) [NovoLOG 55 unit SQ TID 11/23/21 12/14/21 Unknown History Flexpen] Insulin Glargine [Lantus VIAL] 25 units SQ QHS 11/23/21 12/14/21 Unknown History Omeprazole 20 mg PO DAILY 11/23/21 12/14/21 Unknown History Spironolactone [Aldactone] 100 mg PO QDAY 11/23/21 12/14/21 Unknown History lisinopriL [Lisinopril] 20 mg PO BID 11/23/21 12/14/21 12/06/21 History 500 MG Docusate Sodium [Colace CAP] 100 mg PO BID PRN #60 capsule 11/24/21 12/14/21 Unknown Rx Aspirin EC [Halfprin EC] 81 mg PO DAILY 90 Days #90 tablet 11/26/21 12/14/21 Unknown Rx Aspirin [Adult Aspirin] 81 mg PO DAILY 90 Days #90 tab 11/26/21 12/14/21 Unknown Rx ISOSORBIDE MONOnitrate [Imdur ER] 60 mg PO QDAY 90 Days #90 tab 11/26/2109/06 Unknown Rx Sevelamer Carbonate [Renvela] 800 mg PO TIDWM 90 Days #270 tab 11/26/21 12/14/21 Unknown Rx amLODIPine 10 mg PO DAILY 90 Days #90 tab 11/26/21 12/14/21 Unknown Rx carvediloL [Coreg] 25 mg PO BID 90 Days #180 tab 11/26/21 12/14/21 Unknown Rx Atorvastatin Calcium [Lipitor] 80 mg PO QHS 90 Days #90 tab 11/27/21 12/14/21 Unknown Rx levETIRAcetam [Keppra TAB] 500 mg PO 3XW 12/14/21 12/14/21 12/06/21 History 500 MG Active Medications: Generic Name Dose Route Start Last Admin Trade Name Freq PRN Reason Stop Dose Admin Acetaminophen 650 mg 12/13/21 23:00 12/13/21 23:18 Acetaminophen 650 Mg Rect Supp ND 650 mg Q4H PRN Administration Pain, Mild (1-3) Albuterol 2.5 mg 12/11/21 22:14 Albuterol 2.5 Mg/3 Ml Nebu IH Q6HR PRN Wheezing Albuterol/Ipratropium 1 ampul 12/14/21 08:00 12/20/21 08:04 Ipratropium/Albuterol Sulfate 3 Ml Ampul.Neb IH 1 ampul TIDRT KRISTA Administration Lipase/Protease/Amylase 1 each 12/16/21 11:15 Lipase 10,500/Protease 25,000/Amylase 43,750 (Units) Dr Blanco FEEDTUBE PRN PRN For Clogged Feeding Tube Aspirin 81 mg 12/15/21 10:00 12/20/21 09:16 Aspirin 81 Mg Tab Chew FEEDTUBE 81 mg QDAY KRISTA Administration Atorvastatin Calcium 80 mg 12/15/21 22:00 12/19/21 21:27 Atorvastatin 40 Mg Tab FEEDTUBE 80 mg QHS KRISTA Administration Budesonide 0.5 mg 12/13/21 08:00 12/20/21 08:04 Budesonide 0.5 Mg/2 Ml Nebu IH 0.5 mg Q12HRT KRISTA Administration Dextrose 50 ml 12/11/21 22:23 12/16/21 06:24 Dextrose 50% In Water (25gm) 50 Ml Syringe IV 15 ml Q30MIN PRN Administration Hypoglycemia Protocol Famotidine 10 mg 12/15/21 22:00 12/20/21 09:16 Famotidine 10 Mg Tab FEEDTUBE 10 mg BID KRISTA Administration Fentanyl 50 mcg 12/15/21 17:19 12/15/21 17:58 Fentanyl 100 Mcg/2 Ml Inj IV 50 mcg Q10MIN PRN Administration ANALGESIA Hydrophilic Ointment 1 applic 12/16/21 14:30 Lip Therapy Vaseline TP Q2HR PRN Dry Lips Sodium Chloride 100 mls @ 999 mls/hr 12/12/21 12:00 Nacl 0.9% IV ABEL PRN Hypotension NORepinephrine/NS 8 MG-250 ML 8 mg in 250 mls @ 3.75 mls/hr 12/14/21 23:00 12/18/21 19:02 Norepinephrine/Ns 8 Mg-250 Ml (Double Conc) IV 0 mcg/min TITRATE KRISTA 0 mls/hr Titration Protocol 2 MCG/MIN Fentanyl Citrate 2,000 mcg in 100 mls @ 2.945 mls/hr 12/15/21 18:00 12/19/21 18:28 Fentanyl Drip Premix IV 0 mcg/kg/hr TITR KRISTA 0 mls/hr Titration Protocol 1 MCG/KG/HR Vasopressin 20 unit/ Sodium 101 mls @ 9.09 mls/hr 12/16/21 10:00 12/17/21 18:27 Chloride IV 0 units/min TITR KRISTA 0 mls/hr Titration Protocol 0.03 UNITS/MIN Ceftriaxone Sodium 2 gm in 100 mls @ 200 mls/hr 12/16/21 15:00 12/19/21 14:13 Rocephin/Ns 2 Gm/100 Ml IV 12/29/21 15:29 200 mls/hr Q24H KRISTA Administration Protocol Ferric Sodium Gluconate 110 mls @ 100 mls/hr 12/18/21 11:00 12/20/21 09:37 Complex 125 mg/ Sodium IV 12/21/21 23:59 100 mls/hr Chloride DAILY KRISTA Administration Insulin Human Lispro 0 unit 12/15/21 12:00 12/20/21 07:27 Insulin Lispro 100 Unit/Ml SUB-Q Not Given Q6HR KRISTA Protocol Levetiracetam 500 mg 12/16/21 18:00 12/18/21 18:08 Levetiracetam 500 Mg/5 Ml Oral Liqd FEEDTUBE 500 mg TuThSa KRISTA Administration Methylprednisolone Sodium Succinate 60 mg 12/18/21 22:00 12/20/21 09:16 Methylprednisolone Sod Succinate 125 Mg/2 Ml Inj IV 12/21/21 21:59 60 mg Q12HR KRISTA Administration Metoclopramide HCl 5 mg 12/19/21 10:00 12/20/21 09:18 Metoclopramide 10 Mg/2 Ml Inj IV 12/21/21 09:59 5 mg Q6H KRISTA Administration Midodrine 10 mg 12/15/21 12:00 12/20/21 09:15 Midodrine 10 Mg Tab FEEDTUBE 10 mg TID@0800,1200,1600 KRISTA Administration Morphine Sulfate 2 mg 12/11/21 22:11 Morphine 4 Mg/1 Ml Inj IV Q5MIN PRN Chest Pain unrelieved by NTG Multi-Ingred Cream/Lotion/Oil/Oint 1 applic 12/16/21 14:10 Mineral Oil/Petrolatum, White Ophth Oint 3.5 Gm OU Q4HR PRN Dry Eye(s) Nitroglycerin 0.4 mg 12/11/21 22:11 Nitroglycerin 0.4 Mg Tab Subl SL Q5M PRN Chest Pain Senna/Docusate Sodium 1 tab 12/16/21 22:00 12/20/21 09:16 Sennosides/Docusate Sodium 8.6/50 Mg Tab FEEDTUBE 1 tab BID KRISTA Administration Simple Syrup 15 ml 12/16/21 11:15 Simple Syrup 15 Ml FEEDTUBE PRN PRN Hypoglycemia Simple Syrup 30 ml 12/16/21 11:15 Simple Syrup 15 Ml FEEDTUBE PRN PRN Hypoglycemia Sodium Bicarbonate 325 mg 12/16/21 11:15 Sodium Bicarbonate 325 Mg Tab FEEDTUBE PRN PRN For Clogged Feeding Tube Sodium Chloride 10 ml 12/11/21 22:11 12/20/21 09:16 Sodium Chloride 0.9% 10 Ml Flush Syringe IV 10 ml PRN PRN Administration LINE FLUSH
[2021-12-20] MEDS: cefTRIAXone/NS 2 GM/100 ML 2 GM/100 ML BAG IV SCH (15:57)
[2021-12-20] MEDS: levETIRAcetam 500 MG/5 ML ORAL LIQD FEEDTUBE SCH (17:50)
[2021-12-21] MEDS: INSULIN LISPRO 100 UNIT/ML SUB-Q SCH ×4 (00:06→17:19)
[2021-12-21] MEDS: fentaNYL 100 MCG/2 ML INJ IV PRN (03:21)
[2021-12-21] MEDS: METOCLOPRAMIDE 10 MG/2 ML INJ IV SCH ×4 (04:01→21:21)
[2021-12-21] MEDS: IPRATROPIUM/ALBUTEROL SULFATE 3 ML AMPUL.NEB IH SCH ×3 (08:17→20:27)
[2021-12-21] MEDS: BUDESONIDE 0.5 MG/2 ML NEBU IH SCH ×2 (08:17→20:28)
[2021-12-21 08:27] LABS: Hematocrit 29.2 % (30.3-42.9); Hemoglobin 9.3 gm/dl (10.1-14.3); Mean Corpuscular HGB Conc 32 % (30-34); Mean Corpuscular Volume 79 fl (79-97); Red Cell Distribution Width 18.5 % (13.2-15.2)
[2021-12-21 08:30] LABS: Platelet Count 62 K/mm3 (140-440)
[2021-12-21] MEDS: MIDODRINE 10 MG TAB FEEDTUBE SCH ×3 (08:45→17:17)
[2021-12-21] MEDS ORDERED: METOCLOPRAMIDE 10 MG/2 ML INJ IV SCH (09:00)
[2021-12-21] MEDS ORDERED: INSULIN GLARGINE 100 UNITS/ML SUB-Q SCH ×2 (09:00)
[2021-12-21] MEDS: ASPIRIN 81 MG TAB CHEW FEEDTUBE SCH (09:14)
[2021-12-21] MEDS: FAMOTIDINE 10 MG TAB FEEDTUBE SCH ×2 (09:14→21:21)
[2021-12-21] MEDS: methylPREDNISolone Sod Succinate 125 MG/2 ML INJ IV SCH (09:14)
[2021-12-21] MEDS: SENNOSIDES/DOCUSATE SODIUM 8.6/50 MG TAB FEEDTUBE SCH ×2 (09:15→21:22)
[2021-12-21 09:18] LABS: INR 1.18 (0.87-1.13)
[2021-12-21 09:22] LABS: Calcium 8.3 mg/dL (8.4-10.2)
[2021-12-21] MEDS: SODIUM FERRIC GLUCON/SUCRO 125 MG in SODIUM CHLORIDE 0.9% 100 ML IV SCH (10:00)
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
--- NOTE | 2021-12-21 10:21 | Progress Note ---
<ERICAVIV RomeroWallace - Last Filed: 12/21/21 10:46> Assessment and Plan Assessment and plan: This is a 66-year-old female with HTN, SC (2007), seizure disorder, CVA (2007), CHF, CAD, ESRD on HD, GERD admitted with presyncope however now with beta- hemolytic Streptococcus group B bacteremia, sepsis, acute proximal respiratory failure Neuro: Acute metabolic encephalopathy, h/o seizure disorder and 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 -Avoid delirium -Reorientation as needed -Maintain sleep-wake cycle -Aspiration/seizure precautions -Keppra -As needed analgesia -CT head showed small quantity of increased attenuation in the central de[place]a likely related to calcification and hemorrhage not favored, venous collaterals seen within the base of the neck and patient has a left brachiocephalic stent, n onspecific prominent left supraclavicular lymph node, multinodular nodular thyroid gland -repeat CTH with no acute findings -EEG with slowing per tech, awaiting official read -Neurology consulted, appreciate recommendations Cardiac: NSTEMI, severe cardiomyopathy with reduced EF, h/o HTN, SC, CAD with SC (2007) s/p PCI , HLD -Cardiology consulted, appreciate recommendations -Blood pressure monitoring per protocol -s/p Vasopressor support with Levophed and vasopressin -Per cardio: Echocardiogram (completed 2 weeks prior to this admission) showed a moderate severity cardiomyopathy, ejection fraction 35 to 40%. -Echo this admit shows LVEF 30 to 35%, no valvular vegetations -S/p dobutamine -Lipitor, aspirin, Midodrine -Hold home antihypertensive regimen in setting of hypotension Respiratory: Acute hypoxic respiratory failure -CCM consulted, appreciate recommendations -Intubated 12/15 with 7.5 oett at 20 at the lips -A.m. vent settings: Assist-control rate 16, tidal volume 450, PEEP 8, FiO2 30% -See RT notes for titration -PSV today -VAP bundle -SPO2 monitoring GI: Protein calorie malnutrition, h/o GERD -24 hours +825 mL HD 12/20 with removal 2 Liters -PPI -NTR consulted for tube feedings -BR: Senokot -Reglan -KUB with no acute process : ESRD on HD, -Nephrology consulted, appreciate recommendations -HD per nephrology -Strict intake and output -Renally dose medications -Avoid nephrotoxic medications -Daily weights -PhosLo and Renvela d/c d/t low phos ID: Sepsis secondary to beta-hemolytic strep group B (POA based on source), RUE infiltration of NS and possible Levophed -Infectious disease consulted, appreciate recommendations -S/p removal of right upper chest PermCath -cath culture with beta-hemolytic strep group B -Antibiotic therapy with ceftriaxone -f/u blood culture -SHOAIB without vegetation -WOCN consult -Dressing changes per nursing -Antidote for levo not available -Cold compress and elevation -Monitor WBC and temperature curve Endo: Multi-nodular thyroid gland, h/o IDDM -Multinodular thyroid gland noted on CT head -Dedicated thyroid ultrasound recommended -Avoid hypoglycemia -SSI -Accu-Cheks ACHS Heme: Leukocytosis, AOCD, thrombocyopenia (improving), LGIB -Trend CBC -Transfuse hemoglobin less than 7 -Monitor for signs of bleeding -SCDs to BLE while in bed -HIT panel pending -Hematology/oncology consulted -Continue solu medrol 1mg/kg BID -Transfuse 1 dose of plts whenever plt count <20 -Continue IV Ferrlicet 125mg x3 doses -Monitor plts and for bleeding -Bloody BM today -GI consulted, appreciate recommendations -coags sent (PT 16.4, INR 1.18, Fibrinogen 351, LDH 249) MS: S/p fall at home with contusion of right lower extremity with pain and swelling on admit -CT head/C-spine/pelvis showed no acute fracture or dislocation -XR L-spine/right tib-fib/fib/right femur/right hip and pelvis showed no acute fracture or dislocation. -PT consulted The high probability of a clinically significant, sudden or life threatening deterioration of the [multi] system(s) required my full and direct attention, intervention and personal management. The aggregate critical care time was [60] minutes. This time is in addition to time spent performing reported procedures but includes the following: [x] Data Review and interpretation [x] Patient assessment and monitoring of vital signs [x] Documentation [x] Medication orders and management Disposition Plan: icu Total Time Spent with Patient (Minutes): 60 History Interval history: This is a 66 year old female with HTN, seizure disorder, type II DM, 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, SC (2007 (s/p PCI, ESRD on HD, CHF, CAD GERD who presented to the hospital on 12/11 s/p fall which occurred 2 days prior to arrival. Patient stated that she felt dizzy and then found herself on the sharath und. In the emergency department patient was found to have elevated troponin, elevated BUN/creatinine at 9.2/76, CXR showed pulmonary edema and CT head/C- spine/pelvis showed no acute fracture or dislocation and x-ray L-spine/right tib-fib/fib/right femur/right hip and pelvis showed no acute fracture or dislocation. Patient was admitted to the hospitalist service with consults to nephrology and cardiology. Hospital course to date: 12/12: No acute events overnight, reports extreme pain in her right leg, denies chest pain or shortness of breath 12/13: No acute events overnight, patient tearful and complaining of right leg pain however she is refusing analgesic medication 12/14: Continues to have right leg pain, does not participate in interview 12/15: Patient transferred to the ICU for hypotension on Levophed drip however she was weaned off by morning and midodrine was increased due to borderline MAP. Blood cultures grew 11/17 gram-positive cocci with suspected right upper chest permacath source. Patient started on vancomycin and infectious disease consulted. Plan for IR consult for permacath removal and assessment of aVF functioning. Possible temporary Vas-Cath placement for hemodialysis. Patient is encephalopathic likely secondary to sepsis. Continue current antibiotics and repeat 2D echo and blood cultures in the a.m. Right upper extremity swelling and pain noted and right upper extremity XR and Doppler ordered. 12/16: Patient noted to have blisters on left arm and RN asked to elevate and place cool compresses to site. AV fistula on left upper extremity access by hemodialysis nurse and hemodialysis ongoing. Vasopressin ordered in efforts to wean Levophed while on hemodialysis. Echocardiogram repeated. Blood cultures grew beta-hemolytic strep group B and antibiotics changed to ceftriaxone. Dobutamine drip discontinued. Remained sedated on fentanyl drip. 12/17: Thrombocytopenia worse today, unable to tolerate being off vasopressin, started on steroids, HIT assay ordered-discontinued. SCDs for now. [facility] will like to give normal saline 100 ml/hr for 2 L. 12/18: Wound care consult placed for right upper extremity, PSV trials today, weaning Levophed, dialysis planned for today. Hematology/oncology consulted yesterday who recommends twice daily Solu-Medrol. No acute events reported overnight. Patient will be started on IV iron 12/19: PSV today, mentation better and intermittently follows commands. Platelets stable. Reglan started for vomiting and will slowly increase TF. KUB with no acute process. 12/20: PSV today, mentation unchanged, CTH without acute findings, Platelets remains stable with no signs of bleeding, high residuals reported overnight and TF was off from approximately [id number]. TF resumed around 0400 at currently at 20/hr. RN to increase as tolerated. [facility] plans extubation Wednesday. HD today. Will keep femoral line for now in setting of low plts 12/21: Patient had moderate BM today with bright red and dark red blood->CBC pending, coags, LDH ordered, GI consulted and Dr. Lambert alerted. PSV again today. Patient is still intermittently following commands. Hospitalist Physical - Constitutional Vitals: Temp Pulse Resp BP Pulse Ox 98.8 F 94 H 21 160/72 100 12/21/21 08:00 12/21/21 09:00 12/21/21 09:00 12/21/21 09:00 12/21/21 09:00 General appearance: Present: no acute distress, other (intubated) - EENT Eyes: Present: PERRL, EOM intact ENT: poor dentition - Neck Neck: Present: normal ROM - Respiratory Respiratory effort: normal Respiratory: bilateral: diminished - Cardiovascular Rhythm: regular Heart Sounds: Present: S1 & S2. Absent: systolic murmur, diastolic murmur - Extremities Extremities: no ischemia, pulses intact, pulses symmetrical, No edema, normal temperature, normal color Peripheral Pulses: within normal limits - Abdominal General gastrointestinal: soft, non-tender, non-distended, normal bowel sounds - Integumentary Integumentary: Present: warm, dry. Absent: clear (right arm with open bl isters/vaseline gauze changed. no necrotic areas noted per RN, no drainage) - Psychiatric Psychiatric: cooperative - Neurologic Neurologic: other (follows commands intermittently, intact cough/gag, PERRL) - Allied Health Allied health notes reviewed: nursing, RT HEART Score - HEART Score Troponin: Troponin T 0.175 ng/mL (0.00-0.029) H* 12/12/21 04:43 Results - Labs CBC & Chem 7: 12/21/21 08:00 12/21/21 08:35 Labs: Laboratory Last Values WBC 16.7 K/mm3 (4.5-11.0) H 12/21/21 08:00 RBC 3.70 M/mm3 (3.65-5.03) 12/21/21 08:00 Hgb 9.3 gm/dl (10.1-14.3) L 12/21/21 08:00 Hct 29.2 % (30.3-42.9) L 12/21/21 08:00 MCV 79 fl (79-97) 12/21/21 08:00 MCH 25 pg (28-32) L 12/21/21 08:00 MCHC 32 % (30-34) 12/21/21 08:00 RDW 18.5 % (13.2-15.2) H 12/21/21 08:00 Plt Count 62 K/mm3 (140-440) L 12/21/21 08:00 Lymph % (Auto) 5.9 % (13.4-35.0) L 12/17/21 04:00 [place] % (Auto) 4.6 % (0.0-7.3) 12/17/21 04:00 Eos % (Auto) 0.4 % (0.0-4.3) 12/17/21 04:00 Baso % (Auto) 0.8 % (0.0-1.8) 12/17/21 04:00 Lymph # (Auto) 0.7 K/mm3 (1.2-5.4) L 12/17/21 04:00 [place] # (Auto) 0.6 K/mm3 (0.0-0.8) 12/17/21 04:00 Eos # (Auto) 0.0 K/mm3 (0.0-0.4) 12/17/21 04:00 Baso # (Auto) 0.1 K/mm3 (0.0-0.1) 12/17/21 04:00 Add Manual Diff Complete 12/18/21 05:00 Total Counted 100 12/19/21 05:00 Seg Neutrophils % [employer] 12/19/21 05:00 Seg Neuts % (Manual) 93.0 % (40.0-70.0) H 12/19/21 05:00 Band Neutrophils % 2.0 % 12/19/21 05:00 Lymphocytes % (Manual) 2.0 % (13.4-35.0) L 12/19/21 05:00 Reactive Lymphs % (Man) 0 % 12/19/21 05:00 Monocytes % (Manual) 1.0 % (0.0-7.3) 12/19/21 05:00 Eosinophils % (Manual) 0 % (0.0-4.3) 12/19/21 05:00 Basophils % (Manual) 0 % (0.0-1.8) 12/19/21 05:00 Metamyelocytes % 2.0 % 12/19/21 05:00 Myelocytes % 0 % 12/19/21 05:00 Promyelocytes % 0 % 12/19/21 05:00 Blast Cells % 0 % 12/19/21 05:00 Nucleated RBC % Not Reportable 12/19/21 05:00 Seg Neutrophils # 10.9 K/mm3 (1.8-7.7) H 12/17/21 04:00 Seg Neutrophils # Man 17.6 K/mm3 (1.8-7.7) H 12/19/21 05:00 Band Neutrophils # 0.4 K/mm3 12/19/21 05:00 Lymphocytes # (Manual) 0.4 K/mm3 (1.2-5.4) L 12/19/21 05:00 Abs React Lymphs (Man) 0.0 K/mm3 12/19/21 05:00 Monocytes # (Manual) 0.2 K/mm3 (0.0-0.8) 12/19/21 05:00 Eosinophils # (Manual) 0.0 K/mm3 (0.0-0.4) 12/19/21 05:00 Basophils # (Manual) 0.0 K/mm3 (0.0-0.1) 12/19/21 05:00 Metamyelocytes # 0.4 K/mm3 12/19/21 05:00 Myelocytes # 0.0 K/mm3 12/19/21 05:00 Promyelocytes # 0.0 K/mm3 12/19/21 05:00 Blast Cells # 0.0 K/mm3 12/19/21 05:00 WBC Morphology Not Reportable 12/19/21 05:00 Hypersegmented Neuts Not Reportable 12/19/21 05:00 Hyposegmented Neuts 1+ 12/19/21 05:00 Hypogranular Neuts Not Reportable 12/19/21 05:00 Smudge Cells Not Reportable 12/19/21 05:00 Toxic Granulation Not Reportable 12/19/21 05:00 Toxic Vacuolation Not Reportable 12/19/21 05:00 Dohle Bodies Not Reportable 12/19/21 05:00 Pelger-Huet Anomaly Not Reportable 12/19/21 05:00 Charles Rods Not Reportable 12/19/21 05:00 Platelet Estimate Consistent w auto 12/19/21 05:00 Clumped Platelets Not Reportable 12/19/21 05:00 Plt Clumps, EDTA Not Reportable 12/19/21 05:00 Large Platelets Not Reportable 12/19/21 05:00 Giant Platelets Not Reportable 12/19/21 05:00 Platelet Satelliting Not Reportable 12/19/21 05:00 Plt Morphology Comment Not Reportable 12/19/21 05:00 RBC Morphology Not Reportable 12/19/21 05:00 Dimorphic RBCs Not Reportable 12/19/21 05:00 Polychromasia Not Reportable 12/19/21 05:00 Hypochromasia 1+ 12/19/21 05:00 Poikilocytosis Few 12/19/21 05:00 Anisocytosis Few 12/19/21 05:00 Microcytosis Not Reportable 12/19/21 05:00 Macrocytosis Not Reportable 12/19/21 05:00 Spherocytes Not Reportable 12/19/21 05:00 Pappenheimer Bodies Not Reportable 12/19/21 05:00 Sickle Cells Not Reportable 12/19/21 05:00 Target Cells Rare 12/19/21 05:00 Tear Drop Cells Not Reportable 12/19/21 05:00 Ovalocytes Rare 12/19/21 05:00 Helmet Cells Not Reportable 12/19/21 05:00 [place] Bodies Not Reportable 12/19/21 05:00 [place] Rings Not Reportable 12/19/21 05:00 [place] Cells Not Reportable 12/19/21 05:00 Bite Cells Not Reportable 12/19/21 05:00 Crenated Cell Not Reportable 12/19/21 05:00 Elliptocytes Not Reportable 12/19/21 05:00 Acanthocytes (Spur) Not Reportable 12/19/21 05:00 Rouleaux Rare 12/19/21 05:00 Hemoglobin C Crystals Not Reportable 12/19/21 05:00 Schistocytes Rare 12/19/21 05:00 Malaria parasites Not Reportable 12/19/21 05:00 Percent Retic 0.37 % (0.78-2.58) L 12/18/21 05:00 [place]son Bodies Not Reportable 12/19/21 05:00 Hem Pathologist Commnt Not Reportable 12/19/21 05:00 PT 16.4 Sec. (12.2-14.9) H 12/21/21 08:35 INR 1.18 (0.87-1.13) H 12/21/21 08:35 Fibrinogen 351 mg/dl (211-480) 12/21/21 08:35 ABG pH 7.383 pH Units (7.350-7.450) 12/18/21 20:00 ABG pCO2 45.6 mm Hg 12/18/21 20:00 ABG pO2 62.5 mm Hg (80.0-90.0) L 12/18/21 20:00 ABG HCO3 26.6 mmol/L (20.0-26.0) H 12/18/21 20:00 ABG O2 Saturation 91.7 % (95.0-99.0) L 12/18/21 20:00 ABG O2 Content 10.7 (0.0-44) 12/18/21 20:00 ABG Base Excess 1.3 mmol/L (-2.0-3.0) 12/18/21 20:00 ABG Hemoglobin 8.4 gm/dl (12.0-16.0) L 12/18/21 20:00 ABG Carboxyhemoglobin 1.7 % (0.0-5.0) 12/18/21 20:00 ABG Methemoglobin 0.3 % (0.0-1.5) 12/18/21 20:00 VBG pO2 > 258.0 (25.0-47.0) H 12/15/21 19:50 Oxyhemoglobin 89.9 % (95.0-99.0) L 12/18/21 20:00 FiO2 30 % 12/18/21 20:00 Sodium 140 mmol/L (137-145) 12/21/21 08:35 Potassium 3.5 mmol/L (3.6-5.0) L 12/21/21 08:35 Chloride 101.3 mmol/L (98-107) 12/21/21 08:35 Carbon Dioxide 27 mmol/L (22-30) 12/21/21 08:35 Anion Gap 15 mmol/L 12/21/21 08:35 BUN 36 mg/dL (7-17) H 12/21/21 08:35 Creatinine 2.7 mg/dL (0.6-1.2) H 12/21/21 08:35 Estimated GFR 21 ml/min 12/21/21 08:35 BUN/Creatinine Ratio 13 % 12/21/21 08:35 Glucose 174 mg/dL (65-100) H 12/21/21 08:35 POC Glucose 185 mg/dL (70-105) H 12/21/21 05:58 Lactic Acid 1.90 mmol/L (0.7-2.0) 12/16/21 05:00 Calcium 8.3 mg/dL (8.4-10.2) L 12/21/21 08:35 Phosphorus 4.50 mg/dL (2.5-4.5) D 12/19/21 21:19 Magnesium 2.10 mg/dL (1.7-2.3) 12/18/21 12:00 Iron 13 ug/dL (37-170) L 12/18/21 05:00 TIBC 109 mcg/dL (250-450) L 12/18/21 05:00 Ferritin 383.4 ng/mL (10.0-200.0) H 12/18/21 05:00 Total Bilirubin 0.60 mg/dL (0.1-1.2) 12/11/21 15:40 AST 22 units/L (5-40) 12/11/21 15:40 ALT 13 units/L (7-56) 12/11/21 15:40 Alkaline Phosphatase 237 units/L (35-129) H 12/11/21 15:40 Lactate Dehydrogenase 249 units/L (91-180) H 12/21/21 08:35 Troponin T 0.175 ng/mL (0.00-0.029) H* 04/29/22 04:43 C-Reactive Protein 38.50 mg/dL (0.00-1.30) H 12/15/21 14:40 Total Protein 7.4 g/dL (6.3-8.2) 12/11/21 15:40 Albumin 3.6 g/dL (3.9-5) L 12/11/21 15:40 Albumin/Globulin Ratio 0.9 % 12/11/21 15:40 Triglycerides 92 mg/dL (2-149) 12/11/21 15:40 Cholesterol 72 mg/dL (50-199) 12/11/21 15:40 LDL Cholesterol Direct 16 mg/dL (50-130) L 12/11/21 15:40 HDL Cholesterol 41 mg/dL (40-59) 12/11/21 15:40 Cholesterol/HDL Ratio 1.75 % 12/11/21 15:40 Procalcitonin 46.16 ng/mL (<0.15) 12/15/21 04:11 Random Vancomycin 15.6 ug/mL (0-40.0) 12/16/21 05:00 Blood Type O POSITIVE 12/17/21 09:30 Antibody Screen Negative 12/17/21 09:30 Microbiology: Microbiology 12/16/21 10:03 Peripheral/Venous Blood Culture - Preliminary NO GROWTH AFTER 4 DAYS 12/16/21 09:57 Peripheral/Venous Blood Culture - Preliminary NO GROWTH AFTER 4 DAYS Active Medications - Current Medications Current Medications: Generic Name Dose Route Start Last Admin Trade Name Freq PRN Reason Stop Dose Admin Acetaminophen 650 mg 12/13/21 23:00 12/13/21 23:18 Acetaminophen 650 Mg Rect Supp [place] 650 mg Q4H PRN Administration Pain, Mild (1-3) Albuterol 2.5 mg 12/11/21 22:14 Albuterol 2.5 Mg/3 Ml Nebu IH Q6HR PRN Wheezing Albuterol/Ipratropium 1 ampul 12/14/21 08:00 12/21/21 08:17 Ipratropium/Albuterol Sulfate 3 Ml Ampul.Neb IH 1 ampul TIDRT KRISTA Administration Lipase/Protease/Amylase 1 each 12/16/21 11:15 Lipase 10,500/Protease 25,000/Amylase 43,750 (Units) Dr Blanco FEEDTUBE PRN PRN For Clogged Feeding Tube Aspirin 81 mg 12/15/21 10:00 12/21/21 09:14 Aspirin 81 Mg Tab Chew FEEDTUBE 81 mg QDAY KRISTA Administration Atorvastatin Calcium 80 mg 12/15/21 22:00 12/20/21 21:20 Atorvastatin 40 Mg Tab FEEDTUBE 80 mg QHS KRISTA Administration Budesonide 0.5 mg 12/13/21 08:00 12/21/21 08:17 Budesonide 0.5 Mg/2 Ml Nebu IH 0.5 mg Q12HRT KRISTA Administration Dextrose 50 ml 12/11/21 22:23 12/16/21 06:24 Dextrose 50% In Water (25gm) 50 Ml Syringe IV 15 ml Q30MIN PRN Administration Hypoglycemia Protocol Famotidine 10 mg 12/15/21 22:00 12/21/21 09:14 Famotidine 10 Mg Tab FEEDTUBE 10 mg BID KRISTA Administration Fentanyl 50 mcg 12/15/21 17:19 12/21/21 03:21 Fentanyl 100 Mcg/2 Ml Inj IV 50 mcg Q10MIN PRN Administration ANALGESIA Hydrophilic Ointment 1 applic 12/16/21 14:30 Lip Therapy Vaseline TP Q2HR PRN Dry Lips Sodium Chloride 100 mls @ 999 mls/hr 12/12/21 12:00 Nacl 0.9% IV ABEL PRN Hypotension NORepinephrine/NS 8 MG-250 ML 8 mg in 250 mls @ 3.75 mls/hr 12/14/21 23:00 12/18/21 19:02 Norepinephrine/Ns 8 Mg-250 Ml (Double Conc) IV 0 mcg/min TITRATE KRISTA 0 mls/hr Titration Protocol 2 MCG/MIN Fentanyl Citrate 2,000 mcg in 100 mls @ 2.945 mls/hr 12/15/21 18:00 12/19/21 18:28 Fentanyl Drip Premix IV 0 mcg/kg/hr TITR KRISTA 0 mls/hr Titration Protocol 1 MCG/KG/HR Vasopressin 20 unit/ Sodium 101 mls @ 9.09 mls/hr 12/16/21 10:00 12/17/21 18:27 Chloride IV 0 units/min TITR KRISTA 0 mls/hr Titration Protocol 0.03 UNITS/MIN Ceftriaxone Sodium 2 gm in 100 mls @ 200 mls/hr 12/16/21 15:00 12/20/21 15:57 Rocephin/Ns 2 Gm/100 Ml IV 12/29/21 15:29 200 mls/hr Q24H KRISTA Administration Protocol Ferric Sodium Gluconate 110 mls @ 100 mls/hr 12/18/21 11:00 12/21/21 10:00 Complex 125 mg/ Sodium IV 12/21/21 23:59 100 mls/hr Chloride DAILY KRISTA Administration Insulin Glargine 5 units 12/21/21 22:00 Insulin Glargine 100 Units/Ml SUB-Q QHS KRISTA Insulin Human Lispro 0 unit 12/15/21 12:00 12/21/21 06:04 Insulin Lispro 100 Unit/Ml SUB-Q 3 unit Q6HR KRISTA Administration Protocol Levetiracetam 500 mg 12/16/21 18:00 12/20/21 17:50 Levetiracetam 500 Mg/5 Ml Oral Liqd FEEDTUBE 500 mg TuThSa KRISTA Administration Methylprednisolone Sodium Succinate 60 mg 12/18/21 22:00 12/21/21 09:14 Methylprednisolone Sod Succinate 125 Mg/2 Ml Inj IV 12/21/21 21:59 60 mg Q12HR KRISTA Administration Metoclopramide HCl 2.5 mg 12/21/21 10:00 12/21/21 09:15 Metoclopramide 10 Mg/2 Ml Inj IV 2.5 mg Q6H KRISTA Administration Midodrine 10 mg 12/15/21 12:00 12/21/21 08:45 Midodrine 10 Mg Tab FEEDTUBE Not Given TID@0800,1200,1600 [facility] Morphine Sulfate 2 mg 12/11/21 22:11 Morphine 4 Mg/1 Ml Inj IV Q5MIN PRN Chest Pain unrelieved by NTG Multi-Ingred Cream/Lotion/Oil/Oint 1 applic 12/16/21 14:10 Mineral Oil/Petrolatum, White Ophth Oint 3.5 Gm OU Q4HR PRN Dry Eye(s) Nitroglycerin 0.4 mg 12/11/21 22:11 Nitroglycerin 0.4 Mg Tab Subl SL Q5M PRN Chest Pain Senna/Docusate Sodium 1 tab 12/16/21 22:00 12/21/21 09:15 Sennosides/Docusate Sodium 8.6/50 Mg Tab FEEDTUBE Not Given BID [facility] Simple Syrup 15 ml 12/16/21 11:15 Simple Syrup 15 Ml FEEDTUBE PRN PRN Hypoglycemia Simple Syrup 30 ml 12/16/21 11:15 Simple Syrup 15 Ml FEEDTUBE PRN PRN Hypoglycemia Sodium Bicarbonate 325 mg 12/16/21 11:15 Sodium Bicarbonate 325 Mg Tab FEEDTUBE PRN PRN For Clogged Feeding Tube Sodium Chloride 10 ml 12/11/21 22:11 12/21/21 09:15 Sodium Chloride 0.9% 10 Ml Flush Syringe IV 10 ml PRN PRN Administration LINE FLUSH Nutrition/Malnutrition Assess - Dietary Evaluation Nutrition/Malnutrition Findings: Nutrition Notes Start: 12/12/21 11:57 Freq: Status: Active Protocol: Document 12/19/21 17:08 EVERARDO (Rec: 12/19/21 17:19 EVERARDO [id number]) Nutrition Notes Initial or Follow up Brief Note Current Diagnosis CKD (stage V CKD),Diabetes, Sepsis,Hypertension, Respiratory Failure Other Pertinent Diagnosis CKD+HD, Hypotension, GPC Bacteremia, s/p Fall, ... Current Diet TF-Nepro w/CARBSTEADY @ 30 ml/ hr (from L 12/17). Height 4 ft 11 in Weight 66.5 kg [place] Body Weight (kg) 43.18 BMI 29.6 Weight change and time frame 7.6 Kg body weight gain in 3 days reported. Weight Status Overweight Subjective/Other Information RD consult for routine F/U on TF tolerance assessment. TF continues as prescribed, TF restarted after belching episode. Will continue to monitor at F/U. RN Note on 12/19/21 09:29: 0730-Upon assessment of patient tube feedings noted to still be held at this time. Gastric residuals checked and contained 40cc of dark green bile. Patient had a small belching episode while assessment and oral care was going on. BUDGET CONTROLLER made aware. Tube feeds to remain held at this time. Pending xray results of stomach. Reglan to be given ( See MAR). Addendum entered by FRED VIVEROS RN 12/19/21 09:52: 0950-BUDGET CONTROLLER okayed to restart tube feeds at low rate (10cc/hr) for goal of 30 cc/ hr. Percent of energy/protein needs met: Prescribed TF-Nepro w/ CARBSTEADY @ 30 ml/hr provides for energy/protein needs (1, 296 Kcal/58 g) during LOS, 103 % Kcal; 82% AA. #1 Nutrition Diagnosis Inadequate oral intake Diagnosis Progress(for reassessment Continues documentation) Nutrition Intervention Nutrition Support: Continue TF-Nepro w/CARBSTEADY @ 30 ml/hr. Flush: 130 ml water Q 4 hr, or as per MD. Kcal 1,269 Protein (gm) 58 Carbohydrates (gm) 116 Fat (gm) 69 Fluid (mL) 523 Fiber (gm) 9 % RDI: 103% Kcal; 82% AA. Goal #1 Provide at least 75% of energy /protein needs through Enteral Feeding during LOS. Goal #2 Maintain body weight within +/ -3% of admission body weight during LOS. Follow-Up By: 12/22/21 Additional Comments Continue monitoring TF tolerance and BM. <AUSTIN STARR - Last Filed: 12/21/21 13:58> Assessment and Plan Assessment and plan: I saw and evaluated the patient. I agree with the findings and the plan of care as documented in the Nurse Practitioner's~note, with the following corrections and additions. Hospitalist Physical - Constitutional Vitals: Temp Pulse Resp BP Pulse Ox 99.0 F 94 H 17 151/83 100 12/21/21 12:00 12/21/21 13:01 12/21/21 13:01 12/21/21 13:00 12/21/21 13:00 HEART Score - HEART Score Troponin: Troponin T 0.175 ng/mL (0.00-0.029) H* 12/12/21 04:43 Results - Labs CBC & Chem 7: 12/21/21 08:00 12/21/21 08:35 Labs: Laboratory Last Values WBC 16.7 K/mm3 (4.5-11.0) H 12/21/21 08:00 RBC 3.70 M/mm3 (3.65-5.03) 12/21/21 08:00 Hgb 9.3 gm/dl (10.1-14.3) L 12/21/21 08:00 Hct 29.2 % (30.3-42.9) L 12/21/21 08:00 MCV 79 fl (79-97) 12/21/21 08:00 MCH 25 pg (28-32) L 12/21/21 08:00 MCHC 32 % (30-34) 12/21/21 08:00 RDW 18.5 % (13.2-15.2) H 12/21/21 08:00 Plt Count 62 K/mm3 (140-440) L 12/21/21 08:00 Lymph % (Auto) 5.9 % (13.4-35.0) L 12/17/21 04:00 [place] % (Auto) 4.6 % (0.0-7.3) 12/17/21 04:00 Eos % (Auto) 0.4 % (0.0-4.3) 12/17/21 04:00 Baso % (Auto) 0.8 % (0.0-1.8) 12/17/21 04:00 Lymph # (Auto) 0.7 K/mm3 (1.2-5.4) L 12/17/21 04:00 [place] # (Auto) 0.6 K/mm3 (0.0-0.8) 12/17/21 04:00 Eos # (Auto) 0.0 K/mm3 (0.0-0.4) 12/17/21 04:00 Baso # (Auto) 0.1 K/mm3 (0.0-0.1) 12/17/21 04:00 Add Manual Diff Complete 12/18/21 05:00 Total Counted 100 12/19/21 05:00 Seg Neutrophils % [employer] 12/19/21 05:00 Seg Neuts % (Manual) 93.0 % (40.0-70.0) H 12/19/21 05:00 Band Neutrophils % 2.0 % 12/19/21 05:00 Lymphocytes % (Manual) 2.0 % (13.4-35.0) L 12/19/21 05:00 Reactive Lymphs % (Man) 0 % 12/19/21 05:00 Monocytes % (Manual) 1.0 % (0.0-7.3) 12/19/21 05:00 Eosinophils % (Manual) 0 % (0.0-4.3) 12/19/21 05:00 Basophils % (Manual) 0 % (0.0-1.8) 12/19/21 05:00 Metamyelocytes % 2.0 % 12/19/21 05:00 Myelocytes % 0 % 12/19/21 05:00 Promyelocytes % 0 % 12/19/21 05:00 Blast Cells % 0 % 12/19/21 05:00 Nucleated RBC % Not Reportable 12/19/21 05:00 Seg Neutrophils # 10.9 K/mm3 (1.8-7.7) H 12/17/21 04:00 Seg Neutrophils # Man 17.6 K/mm3 (1.8-7.7) H 12/19/21 05:00 Band Neutrophils # 0.4 K/mm3 12/19/21 05:00 Lymphocytes # (Manual) 0.4 K/mm3 (1.2-5.4) L 12/19/21 05:00 Abs React Lymphs (Man) 0.0 K/mm3 12/19/21 05:00 Monocytes # (Manual) 0.2 K/mm3 (0.0-0.8) 12/19/21 05:00 Eosinophils # (Manual) 0.0 K/mm3 (0.0-0.4) 12/19/21 05:00 Basophils # (Manual) 0.0 K/mm3 (0.0-0.1) 12/19/21 05:00 Metamyelocytes # 0.4 K/mm3 12/19/21 05:00 Myelocytes # 0.0 K/mm3 12/19/21 05:00 Promyelocytes # 0.0 K/mm3 12/19/21 05:00 Blast Cells # 0.0 K/mm3 12/19/21 05:00 WBC Morphology Not Reportable 12/19/21 05:00 Hypersegmented Neuts Not Reportable 12/19/21 05:00 Hyposegmented Neuts 1+ 12/19/21 05:00 Hypogranular Neuts Not Reportable 12/19/21 05:00 Smudge Cells Not Reportable 12/19/21 05:00 Toxic Granulation Not Reportable 12/19/21 05:00 Toxic Vacuolation Not Reportable 12/19/21 05:00 Dohle Bodies Not Reportable 12/19/21 05:00 Pelger-Huet Anomaly Not Reportable 12/19/21 05:00 Charles Rods Not Reportable 12/19/21 05:00 Platelet Estimate Consistent w auto 12/19/21 05:00 Clumped Platelets Not Reportable 12/19/21 05:00 Plt Clumps, EDTA Not Reportable 12/19/21 05:00 Large Platelets Not Reportable 12/19/21 05:00 Giant Platelets Not Reportable 12/19/21 05:00 Platelet Satelliting Not Reportable 12/19/21 05:00 Plt Morphology Comment Not Reportable 12/19/21 05:00 RBC Morphology Not Reportable 12/19/21 05:00 Dimorphic RBCs Not Reportable 12/19/21 05:00 Polychromasia Not Reportable 12/19/21 05:00 Hypochromasia 1+ 12/19/21 05:00 Poikilocytosis Few 12/19/21 05:00 Anisocytosis Few 12/19/21 05:00 Microcytosis Not Reportable 12/19/21 05:00 Macrocytosis Not Reportable 12/19/21 05:00 Spherocytes Not Reportable 12/19/21 05:00 Pappenheimer Bodies Not Reportable 12/19/21 05:00 Sickle Cells Not Reportable 12/19/21 05:00 Target Cells Rare 12/19/21 05:00 Tear Drop Cells Not Reportable 12/19/21 05:00 Ovalocytes Rare 12/19/21 05:00 Helmet Cells Not Reportable 12/19/21 05:00 [place] Bodies Not Reportable 12/19/21 05:00 [place] Rings Not Reportable 12/19/21 05:00 [place] Cells Not Reportable 12/19/21 05:00 Bite Cells Not Reportable 12/19/21 05:00 Crenated Cell Not Reportable 12/19/21 05:00 Elliptocytes Not Reportable 12/19/21 05:00 Acanthocytes (Spur) Not Reportable 12/19/21 05:00 Rouleaux Rare 12/19/21 05:00 Hemoglobin C Crystals Not Reportable 12/19/21 05:00 Schistocytes Rare 12/19/21 05:00 Malaria parasites Not Reportable 12/19/21 05:00 Percent Retic 0.37 % (0.78-2.58) L 12/18/21 05:00 [place] Bodies Not Reportable 12/19/21 05:00 Hem Pathologist Commnt Not Reportable 12/19/21 05:00 PT 16.4 Sec. (12.2-14.9) H 12/21/21 08:35 INR 1.18 (0.87-1.13) H 12/21/21 08:35 Fibrinogen 351 mg/dl (211-480) 12/21/21 08:35 ABG pH 7.448 (7.320-7.450) 12/21/21 10:20 POC ABG pCO2 36.0 mmHg (32.0-48.0) 12/21/21 10:20 ABG pCO2 45.6 mm Hg 12/18/21 20:00 POC ABG pO2 126.1 mmHg (83-108) H 12/21/21 10:20 ABG pO2 62.5 mm Hg (80.0-90.0) L 12/18/21 20:00 POC ABG HCO3 24.3 12/21/21 10:20 ABG HCO3 26.6 mmol/L (20.0-26.0) H 12/18/21 20:00 ABG O2 Saturation 98.6 (0-100) 12/21/21 10:20 ABG O2 Content 10.7 (0.0-44) 12/18/21 20:00 POC ABG Base Excess 0.6 12/21/21 10:20 ABG Base Excess 1.3 mmol/L (-2.0-3.0) 12/18/21 20:00 ABG Hemoglobin 11.1 (12.0-17.5) L 12/21/21 10:20 ABG Oxyhemoglobin 97.4 (94-98) 12/21/21 10:20 ABG Carboxyhemoglobin 1.7 % (0.0-5.0) 12/18/21 20:00 ABG Methemoglobin 0.3 (0.0-1.5) 12/21/21 10:20 ABG Sodium Not Reportable 12/21/21 10:20 ABG Potassium Not Reportable 12/21/21 10:20 ABG Chloride Not Reportable 12/21/21 10:20 ABG Glucose Not Reportable 12/21/21 10:20 VBG pO2 > 258.0 (25.0-47.0) H 12/15/21 19:50 Oxyhemoglobin 89.9 % (95.0-99.0) L 12/18/21 20:00 Carboxyhemoglobin 0.9 (0.5-1.5) 12/21/21 10:20 FiO2 30 % 12/18/21 20:00 FiO2 % 30.0 12/21/21 10:20 Sodium 140 mmol/L (137-145) 12/21/21 08:35 Potassium 3.5 mmol/L (3.6-5.0) L 12/21/21 08:35 Chloride 101.3 mmol/L (98-107) 12/21/21 08:35 Carbon Dioxide 27 mmol/L (22-30) 12/21/21 08:35 Anion Gap 15 mmol/L 12/21/21 08:35 BUN 36 mg/dL (7-17) H 12/21/21 08:35 Creatinine 2.7 mg/dL (0.6-1.2) H 12/21/21 08:35 Estimated GFR 21 ml/min 12/21/21 08:35 BUN/Creatinine Ratio 13 % 12/21/21 08:35 Glucose 174 mg/dL (65-100) H 12/21/21 08:35 POC Glucose 181 mg/dL (70-105) H 12/21/21 11:18 Lactic Acid 1.90 mmol/L (0.7-2.0) 12/16/21 05:00 Calcium 8.3 mg/dL (8.4-10.2) L 12/21/21 08:35 Phosphorus 4.50 mg/dL (2.5-4.5) D 12/19/21 21:19 Magnesium 2.10 mg/dL (1.7-2.3) 12/18/21 12:00 Iron 13 ug/dL (37-170) L 12/18/21 05:00 TIBC 109 mcg/dL (250-450) L 12/18/21 05:00 Ferritin 383.4 ng/mL (10.0-200.0) H 12/18/21 05:00 Total Bilirubin 0.60 mg/dL (0.1-1.2) 12/11/21 15:40 AST 22 units/L (5-40) 12/11/21 15:40 ALT 13 units/L (7-56) 12/11/21 15:40 Alkaline Phosphatase 237 units/L (35-129) H 12/11/21 15:40 Lactate Dehydrogenase 249 units/L (91-180) H 12/21/21 08:35 Troponin T 0.175 ng/mL (0.00-0.029) H* 12/12/21 04:43 C-Reactive Protein 38.50 mg/dL (0.00-1.30) H 12/15/21 14:40 Total Protein 7.4 g/dL (6.3-8.2) 12/11/21 15:40 Albumin 3.6 g/dL (3.9-5) L 12/11/21 15:40 Albumin/Globulin Ratio 0.9 % 12/11/21 15:40 Triglycerides 92 mg/dL (2-149) 12/11/21 15:40 Cholesterol 72 mg/dL (50-199) 12/11/21 15:40 LDL Cholesterol Direct 16 mg/dL (50-130) L 12/11/21 15:40 HDL Cholesterol 41 mg/dL (40-59) 12/11/21 15:40 Cholesterol/HDL Ratio 1.75 % 12/11/21 15:40 Procalcitonin 46.16 ng/mL (<0.15) 12/15/21 04:11 Arterial Blood Glucose Not Reportable 12/21/21 10:20 Random Vancomycin 15.6 ug/mL (0-40.0) 12/16/21 05:00 Blood Type O POSITIVE 12/17/21 09:30 Antibody Screen Negative 12/17/21 09:30 Microbiology: Microbiology 12/16/21 10:03 Peripheral/Venous Blood Culture - Final NO GROWTH AFTER 5 DAYS 12/16/21 09:57 Peripheral/Venous Blood Culture - Final NO GROWTH AFTER 5 DAYS Active Medications - Current Medications Current Medications: Generic Name Dose Route Start Last Admin Trade Name Freq PRN Reason Stop Dose Admin Acetaminophen 650 mg 12/13/21 23:00 12/13/21 23:18 Acetaminophen 650 Mg Rect Supp [place] 650 mg Q4H PRN Administration Pain, Mild (1-3) Albuterol 2.5 mg 12/11/21 22:14 Albuterol 2.5 Mg/3 Ml Nebu IH Q6HR PRN Wheezing Albuterol/Ipratropium 1 ampul 12/14/21 08:00 12/21/21 13:00 Ipratropium/Albuterol Sulfate 3 Ml Ampul.Neb IH 1 ampul TIDRT KRISTA Administration Lipase/Protease/Amylase 1 each 12/16/21 11:15 Lipase 10,500/Protease 25,000/Amylase 43,750 (Units) Dr Cap FEEDTUBE PRN PRN For Clogged Feeding Tube Aspirin 81 mg 12/15/21 10:00 12/21/21 09:14 Aspirin 81 Mg Tab Chew FEEDTUBE 81 mg QDAY KRISTA Administration Atorvastatin Calcium 80 mg 12/15/21 22:00 12/20/21 21:20 Atorvastatin 40 Mg Tab FEEDTUBE 80 mg QHS KRISTA Administration Budesonide 0.5 mg 12/13/21 08:00 12/21/21 08:17 Budesonide 0.5 Mg/2 Ml Nebu IH 0.5 mg Q12HRT KRISTA Administration Dextrose 50 ml 12/11/21 22:23 12/16/21 06:24 Dextrose 50% In Water (25gm) 50 Ml Syringe IV 15 ml Q30MIN PRN Administration Hypoglycemia Protocol Famotidine 10 mg 12/15/21 22:00 12/21/21 09:14 Famotidine 10 Mg Tab FEEDTUBE 10 mg BID KRISTA Administration Fentanyl 50 mcg 12/15/21 17:19 12/21/21 03:21 Fentanyl 100 Mcg/2 Ml Inj IV 50 mcg Q10MIN PRN Administration ANALGESIA Hydrophilic Ointment 1 applic 12/16/21 14:30 Lip Therapy Vaseline TP Q2HR PRN Dry Lips Sodium Chloride 100 mls @ 999 mls/hr 12/12/21 12:00 Nacl 0.9% IV ABEL PRN Hypotension NORepinephrine/NS 8 MG-250 ML 8 mg in 250 mls @ 3.75 mls/hr 12/14/21 23:00 12/18/21 19:02 Norepinephrine/Ns 8 Mg-250 Ml (Double Conc) IV 0 mcg/min TITRATE KRISTA 0 mls/hr Titration Protocol 2 MCG/MIN Fentanyl Citrate 2,000 mcg in 100 mls @ 2.945 mls/hr 12/15/21 18:00 12/19/21 18:28 Fentanyl Drip Premix IV 0 mcg/kg/hr TITR KRISTA 0 mls/hr Titration Protocol 1 MCG/KG/HR Vasopressin 20 unit/ Sodium 101 mls @ 9.09 mls/hr 12/16/21 10:00 12/17/21 18:27 Chloride IV 0 units/min TITR KRISTA 0 mls/hr Titration Protocol 0.03 UNITS/MIN Ceftriaxone Sodium 2 gm in 100 mls @ 200 mls/hr 12/16/21 15:00 12/20/21 15:57 Rocephin/Ns 2 Gm/100 Ml IV 12/29/21 15:29 200 mls/hr Q24H KRISTA Administration Protocol Ferric Sodium Gluconate 110 mls @ 100 mls/hr 12/18/21 11:00 12/21/21 10:00 Complex 125 mg/ Sodium IV 12/21/21 23:59 100 mls/hr Chloride DAILY KRISTA Administration Insulin Glargine 5 units 12/21/21 22:00 Insulin Glargine 100 Units/Ml SUB-Q QHS [facility] Insulin Human Lispro 0 unit 12/15/21 12:00 12/21/21 11:35 Insulin Lispro 100 Unit/Ml SUB-Q 3 unit Q6HR KRISTA Administration Protocol Levetiracetam 500 mg 12/16/21 18:00 12/20/21 17:50 Levetiracetam 500 Mg/5 Ml Oral Liqd FEEDTUBE 500 mg TuThSa [facility] Administration Methylprednisolone Sodium Succinate 60 mg 12/18/21 22:00 12/21/21 09:14 Methylprednisolone Sod Succinate 125 Mg/2 Ml Inj IV 12/21/21 21:59 60 mg Q12HR KRISTA Administration Metoclopramide HCl 2.5 mg 12/21/21 10:00 12/21/21 09:15 Metoclopramide 10 Mg/2 Ml Inj IV 2.5 mg Q6H KRISTA Administration Midodrine 10 mg 12/15/21 12:00 12/21/21 12:30 Midodrine 10 Mg Tab FEEDTUBE Not Given TID@0800,1200,1600 [facility] Morphine Sulfate 2 mg 12/11/21 22:11 Morphine 4 Mg/1 Ml Inj IV Q5MIN PRN Chest Pain unrelieved by NTG Multi-Ingred Cream/Lotion/Oil/Oint 1 applic 12/16/21 14:10 Mineral Oil/Petrolatum, White Ophth Oint 3.5 Gm OU Q4HR PRN Dry Eye(s) Nitroglycerin 0.4 mg 12/11/21 22:11 Nitroglycerin 0.4 Mg Tab Subl SL Q5M PRN Chest Pain Senna/Docusate Sodium 1 tab 12/16/21 22:00 12/21/21 09:15 Sennosides/Docusate Sodium 8.6/50 Mg Tab FEEDTUBE Not Given BID KRISTA Simple Syrup 15 ml 12/16/21 11:15 Simple Syrup 15 Ml FEEDTUBE PRN PRN Hypoglycemia Simple Syrup 30 ml 12/16/21 11:15 Simple Syrup 15 Ml FEEDTUBE PRN PRN Hypoglycemia Sodium Bicarbonate 325 mg 12/16/21 11:15 Sodium Bicarbonate 325 Mg Tab FEEDTUBE PRN PRN For Clogged Feeding Tube Sodium Chloride 10 ml 12/11/21 22:11 12/21/21 09:15 Sodium Chloride 0.9% 10 Ml Flush Syringe IV 10 ml PRN PRN Administration LINE FLUSH Nutrition/Malnutrition Assess - Dietary Evaluation Nutrition/Malnutrition Findings: Nutrition Notes Start: 12/12/21 11:57 Freq: Status: Active Protocol: Document 12/19/21 17:08 EVERARDO (Rec: 12/19/21 17:19 EVERARDO [id number]) Nutrition Notes Initial or Follow up Brief Note Current Diagnosis CKD (stage V CKD),Diabetes, Sepsis,Hypertension, Respiratory Failure Other Pertinent Diagnosis CKD+HD, Hypotension, GPC Bacteremia, s/p Fall, ... Current Diet TF-Nepro w/CARBSTEADY @ 30 ml/ hr (from L 12/17). Height 4 ft 11 in Weight 66.5 kg [place] Body Weight (kg) 43.18 BMI 29.6 Weight change and time frame 7.6 Kg body weight gain in 3 days reported. Weight Status Overweight Subjective/Other Information RD consult for routine F/U on TF tolerance assessment. TF continues as prescribed, TF restarted after belching episode. Will continue to monitor at F/U. RN Note on 12/19/21 09:29: 0730-Upon assessment of patient tube feedings noted to still be held at this time. Gastric residuals checked and contained 40cc of dark green bile. Patient had a small belching episode while assessment and oral care was going on. BUDGET CONTROLLER made aware. Tube feeds to remain held at this time. Pending xray results of stomach. Reglan to be given ( See MAR). Addendum entered by FRED VIVEROS RN 12/19/21 09:52: 0950-BUDGET CONTROLLER okayed to restart tube feeds at low rate (10cc/hr) for goal of 30 cc/ hr. Percent of energy/protein needs met: Prescribed TF-Nepro w/ CARBSTEADY @ 30 ml/hr provides for energy/protein needs (1, 296 Kcal/58 g) during LOS, 103 % Kcal; 82% AA. #1 Nutrition Diagnosis Inadequate oral intake Diagnosis Progress(for reassessment Continues documentation) Nutrition Intervention Nutrition Support: Continue TF-Nepro w/CARBSTEADY @ 30 ml/hr. Flush: 130 ml water Q 4 hr, or as per MD. Kcal 1,269 Protein (gm) 58 Carbohydrates (gm) 116 Fat (gm) 69 Fluid (mL) 523 Fiber (gm) 9 % RDI: 103% Kcal; 82% AA. Goal #1 Provide at least 75% of energy /protein needs through Enteral Feeding during LOS. Goal #2 Maintain body weight within +/ -3% of admission body weight during LOS. Follow-Up By: 12/22/21 Additional Comments Continue monitoring TF tolerance and BM.
--- NOTE | 2021-12-21 12:55 | Progress Note ---
Assessment and Plan Septic shock Bacteremia with gram-positive cocci End-stage renal disease on dialysis Acute toxic metabolic encephalopathy Thrombocytopenia Non-ST elevation myocardial infarction A-Fib with RVR Hypertension Diabetes type 2 Anemia that is normocytic (AMS is the rate limiting factor for safe extubation so far but improving) - tentative extubation tomorrow - get ABG after 2 hour SBT in am - continue wound care per RN / WCN - prn vasopressors for target MAP > 65 mmHg - thrombocytopenia is improving - continue Solumedrol 60 mg IV bid (taper per hematology) - follow HIT assay - continue care as below otherwise; - Daily SAT and SBT assessment as tolerated - continue to wean supplemental oxygen for target O2 sat's > 90% acutely - VAP bundle addressed - continue lung protective strategies - continue bronchodilators with pulmonary hygiene per RT - wean per pulmonary driven protocols otherwise - continue HD/UF for toxin and volume clearance - avoid nephrotoxins, renally dose all medications - continue to avoid benzodiazepine's, reduce the possibility of delirium - complete AB's per ID rec's (On Rocephin) - prn analgesia per CPOT score - Maintenance of sleep-wake cycle, avoid delirium - continue enteral nutritional support at goal rate as tolerated - G.I. & VTE prophylaxis - PT/OT/ROM exercises - continue mobility protocols for pressure ulcer prophylaxis - Monitor hemodynamics closely - continue other care per attending / other consultants - discharge planning ongoing concurrently .... Re-evaluate in am & prn CONDITION: CRITICAL PROGNOSIS: GUARDED CODE STATUS: FULL CODE The high probability of a clinically significant, sudden or life-threatening deterioration of the [respiratory, cardiovascular, renal & neurologic] system(s) required my full and direct attention, intervention and personal management. The aggregate critical care time was [33] minutes without overlap. Time includes spent on; [x] Data Review and interpretation [x] Patient assessment and monitoring of vital signs [x] Documentation [x] Medication orders and management Subjective Date of service: 12/21/21 Principal diagnosis: Septic shock ; Bacteremia; ESRD on dialysis; AMS; NSTEMI; HTN; DM II Interval history: Patient is seen today for: Septic shock ; gm +ve Bacteremia; ESRD on dialysis; AMS; NSTEMI; Hypertension; DM II Seen and examined at bedside; 24hour events reviewed; nursing and respiratory care staff consulted; no adverse overnight events reported to me; resting peacefully in bed; on SBT and tolerating well; following commands appropriately including second order; denies acute chest pains; no hematemesis Objective Vital Signs - 12hr 12/21/21 12/21/21 12/21/21 01:00 02:00 03:00 Temperature Pulse Rate 91 H 70 81 Pulse Rate [ Anterior Bilateral Throughout] Pulse Rate [ From Monitor] Respiratory 12 10 L 14 Rate Respiratory Rate [Anterior Bilateral Throughout] Blood Pressure 142/84 154/70 125/87 O2 Sat by Pulse 100 100 100 Oximetry 12/21/21 12/21/21 12/21/21 03:13 03:21 04:00 Temperature 98.3 F Pulse Rate 78 Pulse Rate [ Anterior Bilateral Throughout] Pulse Rate [ 69 From Monitor] Respiratory 14 13 Rate Respiratory Rate [Anterior Bilateral Throughout] Blood Pressure 132/73 O2 Sat by Pulse 100 100 Oximetry 12/21/21 12/21/21 12/21/21 04:58 05:00 06:00 Temperature Pulse Rate 78 78 75 Pulse Rate [ Anterior Bilateral Throughout] Pulse Rate [ From Monitor] Respiratory 15 11 L Rate Respiratory Rate [Anterior Bilateral Throughout] Blood Pressure 130/82 131/72 133/66 O2 Sat by Pulse 100 100 100 Oximetry 12/21/21 12/21/21 12/21/21 07:00 07:06 08:00 Temperature 98.8 F 98.8 F Pulse Rate 82 69 Pulse Rate [ Anterior Bilateral Throughout] Pulse Rate [ 69 From Monitor] Respiratory 16 14 Rate Respiratory Rate [Anterior Bilateral Throughout] Blood Pressure 134/78 126/64 O2 Sat by Pulse 100 100 Oximetry 12/21/21 12/21/21 12/21/21 08:18 08:26 09:00 Temperature Pulse Rate 70 70 94 H Pulse Rate [ 66 Anterior Bilateral Throughout] Pulse Rate [ From Monitor] Respiratory 21 Rate Respiratory 13 Rate [Anterior Bilateral Throughout] Blood Pressure 125/67 125/67 160/72 O2 Sat by Pulse 100 100 100 Oximetry 12/21/21 12/21/21 12/21/21 10:06 11:00 11:25 Temperature 99.0 F Pulse Rate 84 93 H Pulse Rate [ Anterior Bilateral Throughout] Pulse Rate [ From Monitor] Respiratory 21 22 Rate Respiratory Rate [Anterior Bilateral Throughout] Blood Pressure 158/98 O2 Sat by Pulse 100 100 Oximetry 12/21/21 12:00 Temperature 99.0 F Pulse Rate 86 Pulse Rate [ Anterior Bilateral Throughout] Pulse Rate [ 86 From Monitor] Respiratory 17 Rate Respiratory Rate [Anterior Bilateral Throughout] Blood Pressure 140/80 O2 Sat by Pulse 100 Oximetry Constitutional: no acute distress, other (elderly female with normal respiratory effort at rest) Eyes: non-icteric ENT: oropharynx moist, other (ETT 23 cm JUSTIN) Neck: supple, no JVD Effort: normal Ascultation: Bilateral: rhonchi (scant) Percussion: Bilateral: not dull Cardiovascular: regular rate and rhythm Gastrointestinal: normoactive bowel sounds, soft, non-tender, non-distended (protuberant) Integumentary: rash (right groin / ? scar), other (Left upper extremity AV graft; right forearm blisters (open and closed) and induration; no pus) Extremities: no cyanosis, pulses normal, no ischemia or petechiae, edema (right upper extremity) Neurologic: non-focal exam (grossly), pupils equal and round, unable to assess Psychiatric: other (unable to assess re: AMS) CBC and BMP: 12/21/21 08:00 12/21/21 08:35 ABG, PT/INR, D-dimer: ABG ABG pH 7.448 (7.320-7.450) 12/21/21 10:20 POC ABG pCO2 36.0 mmHg (32.0-48.0) 12/21/21 10:20 ABG pCO2 45.6 mm Hg 12/18/21 20:00 POC ABG pO2 126.1 mmHg (83-108) H 12/21/21 10:20 ABG pO2 62.5 mm Hg (80.0-90.0) L 12/18/21 20:00 POC ABG HCO3 24.3 12/21/21 10:20 ABG O2 Saturation 98.6 (0-100) 12/21/21 10:20 PT/INR, D-dimer PT 16.4 Sec. (12.2-14.9) H 12/21/21 08:35 INR 1.18 (0.87-1.13) H 12/21/21 08:35 Abnormal lab findings: Abnormal Labs 12/11/21 12/11/21 12/12/21 14:52 15:40 04:43 WBC RBC 3.57 L Hgb 9.4 L Hct 29.5 L MCH 26 L 27 L RDW 17.8 H 17.9 H Plt Count 119 L 110 L Lymph % (Auto) 4.0 L Lymph # (Auto) 0.3 L Seg Neutrophils % 90.0 H Seg Neuts % (Manual) Lymphocytes % (Manual) Monocytes % (Manual) Nucleated RBC % Seg Neutrophils # Seg Neutrophils # Man Lymphocytes # (Manual) Percent Retic PT INR Fibrinogen ABG pH POC ABG pO2 ABG pO2 ABG HCO3 ABG O2 Saturation ABG Base Excess ABG Hemoglobin VBG pO2 Oxyhemoglobin Sodium Potassium Chloride Carbon Dioxide 18 L BUN 76 H Creatinine 9.2 H Glucose POC Glucose Lactic Acid Calcium 7.7 L Phosphorus Magnesium Iron TIBC Ferritin Alkaline Phosphatase 237 H Lactate Dehydrogenase Troponin T 0.168 H* C-Reactive Protein Albumin 3.6 L LDL Cholesterol Direct 16 L 12/12/21 12/12/21 12/12/21 04:43 04:43 08:49 WBC RBC Hgb Hct MCH RDW Plt Count Lymph % (Auto) Lymph # (Auto) Seg Neutrophils % Seg Neuts % (Manual) Lymphocytes % (Manual) Monocytes % (Manual) Nucleated RBC % Seg Neutrophils # Seg Neutrophils # Man Lymphocytes # (Manual) Percent Retic PT INR Fibrinogen ABG pH POC ABG pO2 ABG pO2 ABG HCO3 ABG O2 Saturation ABG Base Excess ABG Hemoglobin VBG pO2 Oxyhemoglobin Sodium 136 L Potassium Chloride 96.0 L Carbon Dioxide BUN 85 H Creatinine 9.6 H Glucose 57 L POC Glucose 47 L Lactic Acid Calcium 7.8 L Phosphorus Magnesium Iron TIBC Ferritin Alkaline Phosphatase Lactate Dehydrogenase Troponin T 0.175 H* C-Reactive Protein Albumin LDL Cholesterol Direct 12/12/21 12/13/21 12/13/21 11:12 07:30 07:30 WBC RBC Hgb 9.7 L Hct 30.0 L MCH 27 L RDW 18.0 H Plt Count 99 L Lymph % (Auto) 4.8 L Lymph # (Auto) 0.3 L Seg Neutrophils % 88.2 H Seg Neuts % (Manual) Lymphocytes % (Manual) Monocytes % (Manual) Nucleated RBC % Seg Neutrophils # Seg Neutrophils # Man Lymphocytes # (Manual) Percent Retic PT INR Fibrinogen ABG pH POC ABG pO2 ABG pO2 ABG HCO3 ABG O2 Saturation ABG Base Excess ABG Hemoglobin VBG pO2 Oxyhemoglobin Sodium Potassium 5.1 H Chloride 97.8 L Carbon Dioxide 16 L BUN 92 H Creatinine 10.6 H Glucose 121 H POC Glucose 64 L Lactic Acid Calcium 7.6 L Phosphorus Magnesium Iron TIBC Ferritin Alkaline Phosphatase Lactate Dehydrogenase Troponin T C-Reactive Protein Albumin LDL Cholesterol Direct 12/13/21 12/13/21 12/13/21 08:06 11:32 16:59 WBC RBC Hgb Hct MCH RDW Plt Count Lymph % (Auto) Lymph # (Auto) Seg Neutrophils % Seg Neuts % (Manual) Lymphocytes % (Manual) Monocytes % (Manual) Nucleated RBC % Seg Neutrophils # Seg Neutrophils # Man Lymphocytes # (Manual) Percent Retic PT INR Fibrinogen ABG pH POC ABG pO2 ABG pO2 ABG HCO3 ABG O2 Saturation ABG Base Excess ABG Hemoglobin VBG pO2 Oxyhemoglobin Sodium Potassium Chloride Carbon Dioxide BUN Creatinine Glucose POC Glucose 118 H 128 H 130 H Lactic Acid Calcium Phosphorus Magnesium Iron TIBC Ferritin Alkaline Phosphatase Lactate Dehydrogenase Troponin T C-Reactive Protein Albumin LDL Cholesterol Direct 12/13/21 12/14/21 12/14/21 20:16 11:10 11:10 WBC RBC Hgb 9.9 L Hct MCH 27 L RDW 18.1 H Plt Count 82 L Lymph % (Auto) 5.8 L Lymph # (Auto) 0.4 L Seg Neutrophils % 88.3 H Seg Neuts % (Manual) Lymphocytes % (Manual) Monocytes % (Manual) Nucleated RBC % Seg Neutrophils # Seg Neutrophils # Man Lymphocytes # (Manual) Percent Retic PT INR Fibrinogen ABG pH POC ABG pO2 ABG pO2 ABG HCO3 ABG O2 Saturation ABG Base Excess ABG Hemoglobin VBG pO2 Oxyhemoglobin Sodium Potassium Chloride Carbon Dioxide 21 L BUN 57 H Creatinine 7.1 H Glucose 105 H POC Glucose 113 H Lactic Acid Calcium Phosphorus Magnesium Iron TIBC Ferritin Alkaline Phosphatase Lactate Dehydrogenase Troponin T C-Reactive Protein Albumin LDL Cholesterol Direct 12/14/21 12/14/21 12/15/21 11:46 16:41 04:11 WBC RBC Hgb 9.9 L Hct 30.0 L MCH 27 L RDW 18.4 H Plt Count 57 L Lymph % (Auto) Lymph # (Auto) Seg Neutrophils % Seg Neuts % (Manual) Lymphocytes % (Manual) 9.0 L Monocytes % (Manual) 10.0 H Nucleated RBC % Seg Neutrophils # Seg Neutrophils # Man Lymphocytes # (Manual) 0.6 L Percent Retic PT INR Fibrinogen ABG pH POC ABG pO2 ABG pO2 ABG HCO3 ABG O2 Saturation ABG Base Excess ABG Hemoglobin VBG pO2 Oxyhemoglobin Sodium Potassium Chloride Carbon Dioxide BUN Creatinine Glucose POC Glucose 108 H 111 H Lactic Acid Calcium Phosphorus Magnesium Iron TIBC Ferritin Alkaline Phosphatase Lactate Dehydrogenase Troponin T C-Reactive Protein Albumin LDL Cholesterol Direct 12/15/21 12/15/21 12/15/21 04:11 08:48 10:02 WBC RBC Hgb Hct MCH RDW Plt Count Lymph % (Auto) Lymph # (Auto) Seg Neutrophils % Seg Neuts % (Manual) Lymphocytes % (Manual) Monocytes % (Manual) Nucleated RBC % Seg Neutrophils # Seg Neutrophils # Man Lymphocytes # (Manual) Percent Retic PT INR Fibrinogen ABG pH POC ABG pO2 ABG pO2 ABG HCO3 ABG O2 Saturation ABG Base Excess ABG Hemoglobin VBG pO2 Oxyhemoglobin Sodium Potassium Chloride Carbon Dioxide 19 L BUN 68 H Creatinine 7.6 H Glucose POC Glucose 68 L 65 L Lactic Acid Calcium 8.1 L Phosphorus Magnesium Iron TIBC Ferritin Alkaline Phosphatase Lactate Dehydrogenase Troponin T C-Reactive Protein Albumin LDL Cholesterol Direct 12/15/21 12/15/21 12/15/21 10:20 10:51 14:40 WBC RBC Hgb Hct MCH RDW Plt Count Lymph % (Auto) Lymph # (Auto) Seg Neutrophils % Seg Neuts % (Manual) Lymphocytes % (Manual) Monocytes % (Manual) Nucleated RBC % Seg Neutrophils # Seg Neutrophils # Man Lymphocytes # (Manual) Percent Retic PT INR Fibrinogen ABG pH POC ABG pO2 ABG pO2 ABG HCO3 ABG O2 Saturation ABG Base Excess ABG Hemoglobin VBG pO2 Oxyhemoglobin Sodium Potassium Chloride Carbon Dioxide BUN Creatinine Glucose POC Glucose 59 L 60 L Lactic Acid 2.50 H* Calcium Phosphorus Magnesium Iron TIBC Ferritin Alkaline Phosphatase Lactate Dehydrogenase Troponin T C-Reactive Protein Albumin LDL Cholesterol Direct 12/15/21 12/15/21 12/16/21 14:40 19:50 05:00 WBC 12.4 H RBC Hgb 9.6 L Hct 29.4 L MCH 26 L RDW 18.1 H Plt Count 40 L Lymph % (Auto) Lymph # (Auto) Seg Neutrophils % Seg Neuts % (Manual) 95.0 H Lymphocytes % (Manual) 5.0 L Monocytes % (Manual) Nucleated RBC % Seg Neutrophils # Seg Neutrophils # Man 11.8 H Lymphocytes # (Manual) 0.6 L Percent Retic PT INR Fibrinogen ABG pH POC ABG pO2 ABG pO2 463.3 H ABG HCO3 ABG O2 Saturation 99.6 H ABG Base Excess ABG Hemoglobin 10.9 L VBG pO2 > 258.0 H Oxyhemoglobin Sodium Potassium Chloride Carbon Dioxide BUN Creatinine Glucose POC Glucose Lactic Acid Calcium Phosphorus Magnesium Iron TIBC Ferritin Alkaline Phosphatase Lactate Dehydrogenase Troponin T C-Reactive Protein 38.50 H Albumin LDL Cholesterol Direct 12/16/21 12/16/21 12/16/21 05:00 06:15 09:58 WBC RBC Hgb Hct MCH RDW Plt Count Lymph % (Auto) Lymph # (Auto) Seg Neutrophils % Seg Neuts % (Manual) Lymphocytes % (Manual) Monocytes % (Manual) Nucleated RBC % Seg Neutrophils # Seg Neutrophils # Man Lymphocytes # (Manual) Percent Retic PT INR Fibrinogen ABG pH POC ABG pO2 ABG pO2 48.0 L ABG HCO3 ABG O2 Saturation 80.5 L ABG Base Excess -2.9 L ABG Hemoglobin 11.2 L VBG pO2 Oxyhemoglobin 78.8 L Sodium Potassium Chloride Carbon Dioxide BUN 75 H Creatinine 7.7 H Glucose POC Glucose 67 L Lactic Acid Calcium 8.3 L Phosphorus Magnesium Iron TIBC Ferritin Alkaline Phosphatase Lactate Dehydrogenase Troponin T C-Reactive Protein Albumin LDL Cholesterol Direct 12/16/21 12/16/21 12/17/21 11:06 23:24 04:00 WBC 12.3 H RBC 3.32 L Hgb 8.8 L Hct 26.5 L MCH 26 L RDW 18.0 H Plt Count 27 L Lymph % (Auto) 5.9 L Lymph # (Auto) 0.7 L Seg Neutrophils % 88.3 H Seg Neuts % (Manual) Lymphocytes % (Manual) Monocytes % (Manual) Nucleated RBC % Seg Neutrophils # 10.9 H Seg Neutrophils # Man Lymphocytes # (Manual) Percent Retic PT INR Fibrinogen ABG pH POC ABG pO2 ABG pO2 137.7 H ABG HCO3 ABG O2 Saturation ABG Base Excess ABG Hemoglobin 9.9 L VBG pO2 Oxyhemoglobin Sodium Potassium Chloride Carbon Dioxide BUN Creatinine Glucose POC Glucose 110 H Lactic Acid Calcium Phosphorus Magnesium Iron TIBC Ferritin Alkaline Phosphatase Lactate Dehydrogenase Troponin T C-Reactive Protein Albumin LDL Cholesterol Direct 12/17/21 12/17/21 12/17/21 04:30 04:30 11:18 WBC RBC Hgb Hct MCH RDW Plt Count Lymph % (Auto) Lymph # (Auto) Seg Neutrophils % Seg Neuts % (Manual) Lymphocytes % (Manual) Monocytes % (Manual) Nucleated RBC % Seg Neutrophils # Seg Neutrophils # Man Lymphocytes # (Manual) Percent Retic PT INR Fibrinogen ABG pH POC ABG pO2 ABG pO2 ABG HCO3 ABG O2 Saturation ABG Base Excess ABG Hemoglobin VBG pO2 Oxyhemoglobin Sodium Potassium Chloride Carbon Dioxide BUN 43 H Creatinine 5.0 H Glucose 129 H POC Glucose 149 H Lactic Acid Calcium 7.8 L Phosphorus 1.90 L Magnesium 1.60 L Iron TIBC Ferritin Alkaline Phosphatase Lactate Dehydrogenase Troponin T C-Reactive Protein Albumin LDL Cholesterol Direct 12/17/21 12/17/21 12/17/21 14:35 16:58 18:32 WBC RBC Hgb Hct MCH RDW Plt Count Lymph % (Auto) Lymph # (Auto) Seg Neutrophils % Seg Neuts % (Manual) Lymphocytes % (Manual) Monocytes % (Manual) Nucleated RBC % Seg Neutrophils # Seg Neutrophils # Man Lymphocytes # (Manual) Percent Retic PT 17.4 H INR 1.27 H Fibrinogen 486 H ABG pH 7.316 L POC ABG pO2 ABG pO2 74.0 L ABG HCO3 ABG O2 Saturation 93.7 L ABG Base Excess -3.3 L ABG Hemoglobin 8.8 L VBG pO2 Oxyhemoglobin 91.7 L Sodium Potassium Chloride Carbon Dioxide BUN Creatinine Glucose POC Glucose 219 H Lactic Acid Calcium Phosphorus Magnesium Iron TIBC Ferritin Alkaline Phosphatase Lactate Dehydrogenase Troponin T C-Reactive Protein Albumin LDL Cholesterol Direct 12/17/21 12/18/21 12/18/21 23:19 05:00 05:00 WBC 15.3 H RBC 3.25 L Hgb 8.4 L Hct 25.7 L MCH 26 L RDW 18.2 H Plt Count 28 L Lymph % (Auto) Lymph # (Auto) Seg Neutrophils % Seg Neuts % (Manual) 99.0 H Lymphocytes % (Manual) 1.0 L Monocytes % (Manual) Nucleated RBC % 1.0 H Seg Neutrophils # Seg Neutrophils # Man 15.1 H Lymphocytes # (Manual) 0.2 L Percent Retic 0.37 L PT INR Fibrinogen ABG pH POC ABG pO2 ABG pO2 ABG HCO3 ABG O2 Saturation ABG Base Excess ABG Hemoglobin VBG pO2 Oxyhemoglobin Sodium 135 L Potassium Chloride Carbon Dioxide 20 L BUN 53 H Creatinine 5.2 H Glucose 307 H POC Glucose 313 H Lactic Acid Calcium 8.0 L Phosphorus Magnesium Iron 13 L TIBC 109 L Ferritin Alkaline Phosphatase Lactate Dehydrogenase Troponin T C-Reactive Protein Albumin LDL Cholesterol Direct 12/18/21 12/18/21 12/18/21 05:00 05:00 09:00 WBC RBC Hgb Hct MCH RDW Plt Count Lymph % (Auto) Lymph # (Auto) Seg Neutrophils % Seg Neuts % (Manual) Lymphocytes % (Manual) Monocytes % (Manual) Nucleated RBC % Seg Neutrophils # Seg Neutrophils # Man Lymphocytes # (Manual) Percent Retic PT INR Fibrinogen 481 H ABG pH POC ABG pO2 ABG pO2 50.2 L ABG HCO3 ABG O2 Saturation 81.7 L ABG Base Excess -3.6 L ABG Hemoglobin 8.0 L VBG pO2 Oxyhemoglobin 80.0 L Sodium Potassium Chloride Carbon Dioxide BUN Creatinine Glucose POC Glucose Lactic Acid Calcium Phosphorus Magnesium Iron TIBC Ferritin 383.4 H Alkaline Phosphatase Lactate Dehydrogenase Troponin T C-Reactive Protein Albumin LDL Cholesterol Direct 12/18/21 12/18/21 12/18/21 10:56 11:10 12:00 WBC RBC Hgb Hct MCH RDW Plt Count Lymph % (Auto) Lymph # (Auto) Seg Neutrophils % Seg Neuts % (Manual) Lymphocytes % (Manual) Monocytes % (Manual) Nucleated RBC % Seg Neutrophils # Seg Neutrophils # Man Lymphocytes # (Manual) Percent Retic PT INR Fibrinogen ABG pH POC ABG pO2 ABG pO2 92.7 H ABG HCO3 19.8 L ABG O2 Saturation ABG Base Excess -3.8 L ABG Hemoglobin 6.6 L VBG pO2 Oxyhemoglobin Sodium Potassium Chloride Carbon Dioxide BUN Creatinine Glucose POC Glucose 190 H Lactic Acid Calcium Phosphorus 2.40 L D Magnesium Iron TIBC Ferritin Alkaline Phosphatase Lactate Dehydrogenase Troponin T C-Reactive Protein Albumin LDL Cholesterol Direct 12/18/21 12/18/21 12/18/21 18:06 20:00 23:05 WBC 19.2 H RBC 3.51 L Hgb 8.8 L Hct 27.8 L MCH 25 L RDW 18.1 H Plt Count 34 L Lymph % (Auto) Lymph # (Auto) Seg Neutrophils % Seg Neuts % (Manual) Lymphocytes % (Manual) Monocytes % (Manual) Nucleated RBC % Seg Neutrophils # Seg Neutrophils # Man Lymphocytes # (Manual) Percent Retic PT INR Fibrinogen ABG pH POC ABG pO2 ABG pO2 62.5 L ABG HCO3 26.6 H ABG O2 Saturation 91.7 L ABG Base Excess ABG Hemoglobin 8.4 L VBG pO2 Oxyhemoglobin 89.9 L Sodium Potassium Chloride Carbon Dioxide BUN Creatinine Glucose POC Glucose 156 H Lactic Acid Calcium Phosphorus Magnesium Iron TIBC Ferritin Alkaline Phosphatase Lactate Dehydrogenase Troponin T C-Reactive Protein Albumin LDL Cholesterol Direct 12/18/21 12/19/21 12/19/21 23:54 05:00 05:00 WBC 18.9 H RBC 3.29 L Hgb 8.4 L Hct 26.0 L MCH 26 L RDW 18.2 H Plt Count 34 L Lymph % (Auto) Lymph # (Auto) Seg Neutrophils % Seg Neuts % (Manual) 93.0 H Lymphocytes % (Manual) 2.0 L Monocytes % (Manual) Nucleated RBC % Seg Neutrophils # Seg Neutrophils # Man 17.6 H Lymphocytes # (Manual) 0.4 L Percent Retic PT INR Fibrinogen ABG pH POC ABG pO2 ABG pO2 ABG HCO3 ABG O2 Saturation ABG Base Excess ABG Hemoglobin VBG pO2 Oxyhemoglobin Sodium Potassium Chloride Carbon Dioxide BUN 30 H Creatinine 3.1 H Glucose 155 H POC Glucose 122 H Lactic Acid Calcium 8.2 L Phosphorus Magnesium Iron TIBC Ferritin Alkaline Phosphatase Lactate Dehydrogenase Troponin T C-Reactive Protein Albumin LDL Cholesterol Direct 12/19/21 12/19/21 12/19/21 05:29 11:41 17:48 WBC RBC Hgb Hct MCH RDW Plt Count Lymph % (Auto) Lymph # (Auto) Seg Neutrophils % Seg Neuts % (Manual) Lymphocytes % (Manual) Monocytes % (Manual) Nucleated RBC % Seg Neutrophils # Seg Neutrophils # Man Lymphocytes # (Manual) Percent Retic PT INR Fibrinogen ABG pH POC ABG pO2 ABG pO2 ABG HCO3 ABG O2 Saturation ABG Base Excess ABG Hemoglobin VBG pO2 Oxyhemoglobin Sodium Potassium Chloride Carbon Dioxide BUN Creatinine Glucose POC Glucose 153 H 164 H 113 H Lactic Acid Calcium Phosphorus Magnesium Iron TIBC Ferritin Alkaline Phosphatase Lactate Dehydrogenase Troponin T C-Reactive Protein Albumin LDL Cholesterol Direct 12/19/21 12/20/21 12/20/21 23:53 04:45 04:45 WBC 15.0 H RBC 3.39 L Hgb 8.4 L Hct 26.8 L MCH 25 L RDW 17.8 H Plt Count 36 L Lymph % (Auto) Lymph # (Auto) Seg Neutrophils % Seg Neuts % (Manual) Lymphocytes % (Manual) Monocytes % (Manual) Nucleated RBC % Seg Neutrophils # Seg Neutrophils # Man Lymphocytes # (Manual) Percent Retic PT INR Fibrinogen ABG pH POC ABG pO2 ABG pO2 ABG HCO3 ABG O2 Saturation ABG Base Excess ABG Hemoglobin VBG pO2 Oxyhemoglobin Sodium 135 L Potassium Chloride 96.1 L Carbon Dioxide BUN 48 H Creatinine 3.9 H Glucose 188 H POC Glucose 157 H Lactic Acid Calcium 8.1 L Phosphorus Magnesium Iron TIBC Ferritin Alkaline Phosphatase Lactate Dehydrogenase Troponin T C-Reactive Protein Albumin LDL Cholesterol Direct 12/20/21 12/20/21 12/20/21 05:07 11:13 16:35 WBC RBC Hgb Hct MCH RDW Plt Count Lymph % (Auto) Lymph # (Auto) Seg Neutrophils % Seg Neuts % (Manual) Lymphocytes % (Manual) Monocytes % (Manual) Nucleated RBC % Seg Neutrophils # Seg Neutrophils # Man Lymphocytes # (Manual) Percent Retic PT INR Fibrinogen ABG pH POC ABG pO2 ABG pO2 ABG HCO3 ABG O2 Saturation ABG Base Excess ABG Hemoglobin VBG pO2 Oxyhemoglobin Sodium Potassium Chloride Carbon Dioxide BUN Creatinine Glucose POC Glucose 169 H 198 H 198 H Lactic Acid Calcium Phosphorus Magnesium Iron TIBC Ferritin Alkaline Phosphatase Lactate Dehydrogenase Troponin T C-Reactive Protein Albumin LDL Cholesterol Direct 12/20/21 12/21/21 12/21/21 23:50 05:58 08:00 WBC 16.7 H RBC Hgb 9.3 L Hct 29.2 L MCH 25 L RDW 18.5 H Plt Count 62 L Lymph % (Auto) Lymph # (Auto) Seg Neutrophils % Seg Neuts % (Manual) Lymphocytes % (Manual) Monocytes % (Manual) Nucleated RBC % Seg Neutrophils # Seg Neutrophils # Man Lymphocytes # (Manual) Percent Retic PT INR Fibrinogen ABG pH POC ABG pO2 ABG pO2 ABG HCO3 ABG O2 Saturation ABG Base Excess ABG Hemoglobin VBG pO2 Oxyhemoglobin Sodium Potassium Chloride Carbon Dioxide BUN Creatinine Glucose POC Glucose 176 H 185 H Lactic Acid Calcium Phosphorus Magnesium Iron TIBC Ferritin Alkaline Phosphatase Lactate Dehydrogenase Troponin T C-Reactive Protein Albumin LDL Cholesterol Direct 12/21/21 12/21/21 12/21/21 08:35 08:35 10:20 WBC RBC Hgb Hct MCH RDW Plt Count Lymph % (Auto) Lymph # (Auto) Seg Neutrophils % Seg Neuts % (Manual) Lymphocytes % (Manual) Monocytes % (Manual) Nucleated RBC % Seg Neutrophils # Seg Neutrophils # Man Lymphocytes # (Manual) Percent Retic PT 16.4 H INR 1.18 H Fibrinogen ABG pH POC ABG pO2 126.1 H ABG pO2 ABG HCO3 ABG O2 Saturation ABG Base Excess ABG Hemoglobin 11.1 L VBG pO2 Oxyhemoglobin Sodium Potassium 3.5 L Chloride Carbon Dioxide BUN 36 H Creatinine 2.7 H Glucose 174 H POC Glucose Lactic Acid Calcium 8.3 L Phosphorus Magnesium Iron TIBC Ferritin Alkaline Phosphatase Lactate Dehydrogenase 249 H Troponin T C-Reactive Protein Albumin LDL Cholesterol Direct 12/21/21 11:18 WBC RBC Hgb Hct MCH RDW Plt Count Lymph % (Auto) Lymph # (Auto) Seg Neutrophils % Seg Neuts % (Manual) Lymphocytes % (Manual) Monocytes % (Manual) Nucleated RBC % Seg Neutrophils # Seg Neutrophils # Man Lymphocytes # (Manual) Percent Retic PT INR Fibrinogen ABG pH POC ABG pO2 ABG pO2 ABG HCO3 ABG O2 Saturation ABG Base Excess ABG Hemoglobin VBG pO2 Oxyhemoglobin Sodium Potassium Chloride Carbon Dioxide BUN Creatinine Glucose POC Glucose 181 H Lactic Acid Calcium Phosphorus Magnesium Iron TIBC Ferritin Alkaline Phosphatase Lactate Dehydrogenase Troponin T C-Reactive Protein Albumin LDL Cholesterol Direct Allied health notes reviewed: nursing
--- NOTE | 2021-12-21 14:47 | Progress Note ---
Assessment and Plan Impression: * ESRD * s/p fall * hypotension * elevated troponin * type 2 DM * history of HTN * GPC bacteremia Plan: * maintain MAP>70, continue pressors prn * tolerated hd 5/5 via AVF * plan for HD TTHSAT if hemodynamically stable, last yesterday, no need for additionaL HD today * will attempt UF removal as able given soft but improving BPs * renal diet, fluid restriction * strict i/os and daily lytes * uf as tolerated with hd * note bacteremia- appreciate removal of PermCath. AVF working, no indication for acute intervention, appreciate IR/vascular * antibiotics per ID Subjective Date of service: 12/21/21 Principal diagnosis: Septic shock ; Bacteremia; ESRD on dialysis; AMS; NSTEMI; HTN; DM II Interval history: Remains intubated. FiO2 30%. Opens eyes Objective - Exam Narrative Exam: Constitutional: ill appearing, intubated, opening eyes today Head: NC/AT Neck: supple Lungs: coarse lung sounds CV: tachycardic Abdomen: soft, non-tender, bowel sounds present Back: nontender Extremities: no edema, pulses WNL Skin: intact Neuro: awake - Vital Signs Vital signs: Vital Signs - 12hr 12/21/21 12/21/21 12/21/21 03:00 03:13 03:21 Temperature Pulse Rate 81 Pulse Rate [ Anterior Bilateral Throughout] Pulse Rate [ From Monitor] Respiratory 14 14 Rate Respiratory Rate [Anterior Bilateral Throughout] Blood Pressure 125/87 O2 Sat by Pulse 100 100 Oximetry 12/21/21 12/21/21 12/21/21 04:00 04:58 05:00 Temperature 98.3 F Pulse Rate 78 78 78 Pulse Rate [ Anterior Bilateral Throughout] Pulse Rate [ 69 From Monitor] Respiratory 13 15 Rate Respiratory Rate [Anterior Bilateral Throughout] Blood Pressure 132/73 130/82 131/72 O2 Sat by Pulse 100 100 100 Oximetry 12/21/21 12/21/21 12/21/21 06:00 07:00 07:06 Temperature 98.8 F Pulse Rate 75 82 Pulse Rate [ Anterior Bilateral Throughout] Pulse Rate [ From Monitor] Respiratory 11 L 16 Rate Respiratory Rate [Anterior Bilateral Throughout] Blood Pressure 133/66 134/78 O2 Sat by Pulse 100 100 Oximetry 12/21/21 12/21/21 12/21/21 08:00 08:18 08:26 Temperature 98.8 F Pulse Rate 69 70 70 Pulse Rate [ 82 Anterior Bilateral Throughout] Pulse Rate [ 69 From Monitor] Respiratory 14 Rate Respiratory 20 Rate [Anterior Bilateral Throughout] Blood Pressure 126/64 125/67 125/67 O2 Sat by Pulse 100 100 100 Oximetry 12/21/21 12/21/21 12/21/21 09:00 10:06 11:00 Temperature Pulse Rate 94 H 84 93 H Pulse Rate [ Anterior Bilateral Throughout] Pulse Rate [ From Monitor] Respiratory 21 21 22 Rate Respiratory Rate [Anterior Bilateral Throughout] Blood Pressure 160/72 158/98 O2 Sat by Pulse 100 100 100 Oximetry 12/21/21 12/21/21 12/21/21 11:25 12:00 12:57 Temperature 99.0 F 99.0 F Pulse Rate 86 86 Pulse Rate [ Anterior Bilateral Throughout] Pulse Rate [ 86 From Monitor] Respiratory 17 Rate Respiratory Rate [Anterior Bilateral Throughout] Blood Pressure 140/80 160/73 O2 Sat by Pulse 100 100 Oximetry 12/21/21 12/21/21 13:00 13:01 Temperature Pulse Rate 83 Pulse Rate [ 94 H Anterior Bilateral Throughout] Pulse Rate [ From Monitor] Respiratory 21 Rate Respiratory 17 Rate [Anterior Bilateral Throughout] Blood Pressure 151/83 O2 Sat by Pulse 100 Oximetry - Lab 12/21/21 08:00 12/21/21 08:35 Most recent lab results ABG pH 7.448 (7.320-7.450) 12/21/21 10:20 ABG pCO2 45.6 mm Hg 12/18/21 20:00 ABG pO2 62.5 mm Hg (80.0-90.0) L 12/18/21 20:00 ABG HCO3 26.6 mmol/L (20.0-26.0) H 12/18/21 20:00 ABG O2 Saturation 98.6 (0-100) 12/21/21 10:20 Calcium 8.3 mg/dL (8.4-10.2) L 12/21/21 08:35 Phosphorus 4.50 mg/dL (2.5-4.5) D 12/19/21 21:19 Magnesium 2.10 mg/dL (1.7-2.3) 12/18/21 12:00 Medications & Allergies - Medications Allergies/Adverse Reactions: Allergies No Known Allergies Allergy (Verified 12/11/21 22:19) Home Medications: Home Medications Medication Instructions Recorded Confirmed Last Taken Type Albuterol Sulfate [Proair 2 puff IH Q6HR PRN 11/23/21 12/14/21 Unknown History Digihaler] Calcium Acetate 2 tab PO TID 11/23/21 12/14/21 Unknown History Fluticasone/Umeclidin/Vilanter 1 each IH DAILY 11/23/21 12/14/21 Unknown History [Trelegy Ellipta 100-62.5-25] Furosemide [Lasix TAB] 40 mg PO QDAY 11/23/21 12/14/21 Unknown History Insulin Aspart (Nf) [NovoLOG 55 unit SQ TID 11/23/21 12/14/21 Unknown History Flexpen] Insulin Glargine [Lantus VIAL] 25 units SQ QHS 11/23/21 12/14/21 Unknown History Omeprazole 20 mg PO DAILY 11/23/21 12/14/21 Unknown History Spironolactone [Aldactone] 100 mg PO QDAY 11/23/21 12/14/21 Unknown History lisinopriL [Lisinopril] 20 mg PO BID 11/23/21 12/14/21 12/06/21 History 500 MG Docusate Sodium [Colace CAP] 100 mg PO BID PRN #60 capsule 11/24/21 12/14/21 Unknown Rx Aspirin EC [Halfprin EC] 81 mg PO DAILY 90 Days #90 tablet 11/26/21 12/14/21 Unknown Rx Aspirin [Adult Aspirin] 81 mg PO DAILY 90 Days #90 tab 11/26/21 12/14/21 Unknown Rx ISOSORBIDE MONOnitrate [Imdur ER] 60 mg PO QDAY 90 Days #90 tab 11/26/21 12/14/21 Unknown Rx Sevelamer Carbonate [Renvela] 800 mg PO TIDWM 90 Days #270 tab 11/26/21 12/14/21 Unknown Rx amLODIPine 10 mg PO DAILY 90 Days #90 tab 11/26/21 12/14/21 Unknown Rx carvediloL [Coreg] 25 mg PO BID 90 Days #180 tab 11/26/21 12/14/21 Unknown Rx Atorvastatin Calcium [Lipitor] 80 mg PO QHS 90 Days #90 tab 11/27/21 12/14/21 Unknown Rx levETIRAcetam [Keppra TAB] 500 mg PO 3XW 05/01/22 05/01/22 04/23/22 History 500 MG Active Medications: Generic Name Dose Route Start Last Admin Trade Name Freq PRN Reason Stop Dose Admin Acetaminophen 650 mg 12/13/21 23:00 12/13/21 23:18 Acetaminophen 650 Mg Rect Supp NE 650 mg Q4H PRN Administration Pain, Mild (1-3) Albuterol 2.5 mg 12/11/21 22:14 Albuterol 2.5 Mg/3 Ml Nebu IH Q6HR PRN Wheezing Albuterol/Ipratropium 1 ampul 12/14/21 08:00 12/21/21 13:00 Ipratropium/Albuterol Sulfate 3 Ml Ampul.Neb IH 1 ampul TIDRT KRISTA Administration Lipase/Protease/Amylase 1 each 12/16/21 11:15 Lipase 10,500/Protease 25,000/Amylase 43,750 (Units) Dr Blanco FEEDTUBE PRN PRN For Clogged Feeding Tube Aspirin 81 mg 12/15/21 10:00 12/21/21 09:14 Aspirin 81 Mg Tab Chew FEEDTUBE 81 mg QDAY KRISTA Administration Atorvastatin Calcium 80 mg 12/15/21 22:00 12/20/21 21:20 Atorvastatin 40 Mg Tab FEEDTUBE 80 mg QHS KRISTA Administration Budesonide 0.5 mg 12/13/21 08:00 12/21/21 08:17 Budesonide 0.5 Mg/2 Ml Nebu IH 0.5 mg Q12HRT KRISTA Administration Dextrose 50 ml 12/11/21 22:23 12/16/21 06:24 Dextrose 50% In Water (25gm) 50 Ml Syringe IV 15 ml Q30MIN PRN Administration Hypoglycemia Protocol Famotidine 10 mg 12/15/21 22:00 12/21/21 09:14 Famotidine 10 Mg Tab FEEDTUBE 10 mg BID KRISTA Administration Fentanyl 50 mcg 12/15/21 17:19 12/21/21 03:21 Fentanyl 100 Mcg/2 Ml Inj IV 50 mcg Q10MIN PRN Administration ANALGESIA Hydrophilic Ointment 1 applic 12/16/21 14:30 Lip Therapy Vaseline TP Q2HR PRN Dry Lips Sodium Chloride 100 mls @ 999 mls/hr 12/12/21 12:00 Nacl 0.9% IV ABEL PRN Hypotension NORepinephrine/NS 8 MG-250 ML 8 mg in 250 mls @ 3.75 mls/hr 12/14/21 23:00 12/18/21 19:02 Norepinephrine/Ns 8 Mg-250 Ml (Double Conc) IV 0 mcg/min TITRATE KRISTA 0 mls/hr Titration Protocol 2 MCG/MIN Fentanyl Citrate 2,000 mcg in 100 mls @ 2.945 mls/hr 12/15/21 18:00 12/19/21 18:28 Fentanyl Drip Premix IV 0 mcg/kg/hr TITR KRISTA 0 mls/hr Titration Protocol 1 MCG/KG/HR Vasopressin 20 unit/ Sodium 101 mls @ 9.09 mls/hr 12/16/21 10:00 12/17/21 18:27 Chloride IV 0 units/min TITR KRISTA 0 mls/hr Titration Protocol 0.03 UNITS/MIN Ceftriaxone Sodium 2 gm in 100 mls @ 200 mls/hr 12/16/21 15:00 12/20/21 15:57 Rocephin/Ns 2 Gm/100 Ml IV 12/29/21 15:29 200 mls/hr Q24H KRISTA Administration Protocol Ferric Sodium Gluconate 110 mls @ 100 mls/hr 12/18/21 11:00 12/21/21 10:00 Complex 125 mg/ Sodium IV 12/21/21 23:59 100 mls/hr Chloride DAILY KRISTA Administration Insulin Glargine 5 units 12/21/21 22:00 Insulin Glargine 100 Units/Ml SUB-Q QHS KRISTA Insulin Human Lispro 0 unit 12/15/21 12:00 12/21/21 11:35 Insulin Lispro 100 Unit/Ml SUB-Q 3 unit Q6HR KRISTA Administration Protocol Levetiracetam 500 mg 12/16/21 18:00 12/20/21 17:50 Levetiracetam 500 Mg/5 Ml Oral Liqd FEEDTUBE 500 mg TuThSa KRISTA Administration Methylprednisolone Sodium Succinate 60 mg 12/18/21 22:00 12/21/21 09:14 Methylprednisolone Sod Succinate 125 Mg/2 Ml Inj IV 12/21/21 21:59 60 mg Q12HR KRISTA Administration Metoclopramide HCl 2.5 mg 12/21/21 10:00 12/21/21 09:15 Metoclopramide 10 Mg/2 Ml Inj IV 2.5 mg Q6H KRISTA Administration Midodrine 10 mg 12/15/21 12:00 12/21/21 12:30 Midodrine 10 Mg Tab FEEDTUBE Not Given TID@0800,1200,1600 KRISTA Morphine Sulfate 2 mg 12/11/21 22:11 Morphine 4 Mg/1 Ml Inj IV Q5MIN PRN Chest Pain unrelieved by NTG Multi-Ingred Cream/Lotion/Oil/Oint 1 applic 12/16/21 14:10 Mineral Oil/Petrolatum, White Ophth Oint 3.5 Gm OU Q4HR PRN Dry Eye(s) Nitroglycerin 0.4 mg 12/11/21 22:11 Nitroglycerin 0.4 Mg Tab Subl SL Q5M PRN Chest Pain Senna/Docusate Sodium 1 tab 12/16/21 22:00 12/21/21 09:15 Sennosides/Docusate Sodium 8.6/50 Mg Tab FEEDTUBE Not Given BID KRISTA Simple Syrup 15 ml 12/16/21 11:15 Simple Syrup 15 Ml FEEDTUBE PRN PRN Hypoglycemia Simple Syrup 30 ml 12/16/21 11:15 Simple Syrup 15 Ml FEEDTUBE PRN PRN Hypoglycemia Sodium Bicarbonate 325 mg 12/16/21 11:15 Sodium Bicarbonate 325 Mg Tab FEEDTUBE PRN PRN For Clogged Feeding Tube Sodium Chloride 10 ml 12/11/21 22:11 12/21/21 09:15 Sodium Chloride 0.9% 10 Ml Flush Syringe IV 10 ml PRN PRN Administration LINE FLUSH
[2021-12-21] MEDS: cefTRIAXone/NS 2 GM/100 ML 2 GM/100 ML BAG IV SCH (15:27)
[2021-12-21 16:21] LABS: Heparin-Induced Platelet Antib Negative (Negative); Unfractionated Heparin Negative (Negative)
--- NOTE | 2021-12-21 16:27 | Progress Note ---
Assessment and Plan - Patient Problems (1) Syncope Current Visit: Yes Status: Acute Plan to address problem: Patient with end-stage renal disease on hemodialysis, admitted with transient dizziness and sepsis, suspected source indwelling Vas-Cath. History of a moderate severity cardiomyopathy, ejection fraction 35 to 40%. Follow-up 2D echocardiogram on this presentation showed no evidence of valvular vegetation. The etiology of her cardiomyopathy is not known at this time, we do not have her records from [place] for review. Continue guideline directed medical therapy as tolerated by clinical status. Subjective Date of service: 12/21/21 Principal diagnosis: Septic shock ; Bacteremia; ESRD on dialysis; AMS; NSTEMI; HTN; DM II Interval history: Patient is on the vent, currently undergoing dialysis. She opens eyes but unable to follow commands. Stable sinus rhythm at 68, systolic blood pressure 121. Objective Vital Signs Temp Pulse Pulse Pulse Resp Resp BP 12/21/21 16:00 79 79 22 144/87 12/21/21 15:00 83 23 151/87 12/21/21 14:00 89 20 163/83 12/21/21 13:01 94 H 17 12/21/21 13:00 83 21 151/83 12/21/21 12:57 86 160/73 12/21/21 12:00 99.0 F 86 86 17 140/80 12/21/21 11:25 99.0 F 12/21/21 11:00 93 H 22 158/98 12/21/21 10:06 84 21 12/21/21 09:00 94 H 21 160/72 12/21/21 08:26 70 125/67 12/21/21 08:18 70 82 20 125/67 12/21/21 08:00 98.8 F 69 69 14 126/64 12/21/21 07:06 98.8 F 12/21/21 07:00 82 16 134/78 12/21/21 06:00 75 11 L 133/66 12/21/21 05:00 78 15 131/72 12/21/21 04:58 78 130/82 12/21/21 04:00 98.3 F 78 69 13 132/73 12/21/21 03:21 14 12/21/21 03:13 12/21/21 03:00 81 14 125/87 12/21/21 02:00 70 10 L 154/70 12/21/21 01:00 91 H 12 142/84 12/21/21 00:00 98.9 F 85 66 22 131/63 12/20/21 23:00 76 19 132/79 12/20/21 22:17 64 12 127/69 12/20/21 22:00 63 13 126/68 12/20/21 21:01 60 19 130/47 12/20/21 20:37 70 14 12/20/21 20:30 66 135/53 12/20/21 20:00 99.3 F 64 16 126/61 12/20/21 19:43 65 15 12/20/21 19:40 65 12/20/21 19:00 64 14 127/67 12/20/21 18:00 70 15 131/58 12/20/21 16:48 98.0 F 12/20/21 16:30 66 17 124/55 Pulse Ox 12/21/21 16:00 100 12/21/21 15:00 100 12/21/21 14:00 100 12/21/21 13:01 12/21/21 13:00 100 12/21/21 12:57 100 12/21/21 12:00 100 12/21/21 11:25 12/21/21 11:00 100 12/21/21 10:06 100 12/21/21 09:00 100 12/21/21 08:26 100 12/21/21 08:18 100 12/21/21 08:00 100 12/21/21 07:06 12/21/21 07:00 100 12/21/21 06:00 100 12/21/21 05:00 100 12/21/21 04:58 100 12/21/21 04:00 100 12/21/21 03:21 12/21/21 03:13 100 12/21/21 03:00 100 12/21/21 02:00 100 12/21/21 01:00 100 12/21/21 00:00 100 12/20/21 23:00 100 12/20/21 22:17 100 12/20/21 22:00 100 12/20/21 21:01 100 12/20/21 20:37 12/20/21 20:30 100 12/20/21 20:00 100 12/20/21 19:43 100 12/20/21 19:40 12/20/21 19:00 100 12/20/21 18:00 100 12/20/21 16:48 12/20/21 16:30 100 - Physical Examination General: Other (Sedated, on the vent) HEENT: Positive: PERRL Neck: Positive: neck supple Cardiac: Positive: Reg Rate and Rhythm Lungs: Positive: Decreased Breath Sounds Neuro: Positive: Other (Sedated, on the vent) Abdomen: Positive: Soft Skin: Positive: Clear Extremities: Absent: edema - Labs and Meds Cardiac Enzymes 12/21/21 Range/Units 08:35 Lactate Dehydrogenase 249 H (91-180) units/L Coagulation 12/21/21 Range/Units 08:35 PT 16.4 H (12.2-14.9) Sec. INR 1.18 H (0.87-1.13) CBC 12/21/21 Range/Units 08:00 WBC 16.7 H (4.5-11.0) K/mm3 RBC 3.70 (3.65-5.03) M/mm3 Hgb 9.3 L (10.1-14.3) gm/dl Hct 29.2 L (30.3-42.9) % Plt Count 62 L (140-440) K/mm3 Comprehensive Metabolic Panel 12/21/21 Range/Units 08:35 Sodium 140 (137-145) mmol/L Potassium 3.5 L (3.6-5.0) mmol/L Chloride 101.3 (98-107) mmol/L Carbon Dioxide 27 (22-30) mmol/L BUN 36 H (7-17) mg/dL Creatinine 2.7 H (0.6-1.2) mg/dL Glucose 174 H (65-100) mg/dL Calcium 8.3 L (8.4-10.2) mg/dL - Allied health notes Allied health notes reviewed: nursing
[2021-12-21 18:19] LABS: Hematocrit 31.8 % (30.3-42.9); Hemoglobin 9.9 gm/dl (10.1-14.3); Mean Corpuscular HGB Conc 31 % (30-34); Mean Corpuscular Volume 79 fl (79-97); Red Blood Count 4.01 M/mm3 (3.65-5.03)
[2021-12-21 18:20] LABS: Platelet Count 60 K/mm3 (140-440)
[2021-12-21] MEDS: INSULIN GLARGINE 100 UNITS/ML SUB-Q SCH (21:21)
[2021-12-22] MEDS: INSULIN LISPRO 100 UNIT/ML SUB-Q SCH ×4 (00:04→19:03)
[2021-12-22] MEDS: METOCLOPRAMIDE 10 MG/2 ML INJ IV SCH ×4 (03:50→21:02)
[2021-12-22 04:54] LABS: Hematocrit 33.9 % (30.3-42.9); Hemoglobin 10.6 gm/dl (10.1-14.3); Mean Corpuscular HGB Conc 31 % (30-34); Mean Corpuscular Volume 79 fl (79-97); Red Blood Count 4.28 M/mm3 (3.65-5.03); Red Cell Distribution Width 17.8 % (13.2-15.2)
[2021-12-22 04:55] LABS: Platelet Count 68 K/mm3 (140-440)
[2021-12-22 05:14] LABS: Calcium 8.1 mg/dL (8.4-10.2)
[2021-12-22] MEDS: IPRATROPIUM/ALBUTEROL SULFATE 3 ML AMPUL.NEB IH SCH ×3 (08:07→20:05)
[2021-12-22] MEDS: BUDESONIDE 0.5 MG/2 ML NEBU IH SCH ×2 (08:07→20:05)
[2021-12-22] MEDS: MIDODRINE 10 MG TAB FEEDTUBE SCH ×3 (09:16→16:47)
[2021-12-22] MEDS: SENNOSIDES/DOCUSATE SODIUM 8.6/50 MG TAB FEEDTUBE SCH ×2 (09:16→21:01)
[2021-12-22] MEDS: ASPIRIN 81 MG TAB CHEW FEEDTUBE SCH (09:16)
[2021-12-22] MEDS: fentaNYL 100 MCG/2 ML INJ IV PRN ×3 (09:17→23:01)
[2021-12-22] MEDS ORDERED: PANTOPRAZOLE 40 MG INJ IV SCH (10:00)
--- NOTE | 2021-12-22 10:15 | Progress Note ---
Assessment and Plan Cultures: Blood culture group B strep Catheter tip culture: Group B strep Blood culture 12/16/2021: No growth A/P: 66-year-old female past medical history hypertension, ESRD on HD now with: #Septic shock secondary to Group B strep bacteremia: Source possibly from dialysis. Catheter since been removed. TTE without evidence of vegetations. #Thrombocytopenia: Probably secondary to sepsis. Heme on board, patient receiving steroids. #ESRD on HD: Renally dose antibiotics #Acute GI bleed, anemia #Thrombocytopenia: Stable to improving Recs: -Continue ceftriaxone 2 g every 24 hours x 2 weeks -Monitor left femoral central line site, at risk of worsening wound and bacteremia -Wound care -monitor WBC Garcia Bowens MD, FACP, [facility] O: [phone] F: [phone] C: [phone] Subjective Date of service: 12/22/21 Principal diagnosis: Septic shock ; Bacteremia; ESRD on dialysis; AMS; NSTEMI; HTN; DM II Interval history: No fever. Remains on the vent. Remains off pressors. Having some bloody stools per RN. Objective - Exam Narrative Exam: Physical Exam: Constitutional: sedated, intubated, on the vent Head, Ears, Nose: Normocephalic, atraumatic. External ears, nose normal Eyes: Conjunctivae/corneas clear. No icterus. No ptosis. Neck: intubated Oral: intubated Cardiovascular: S1, S2 + Respiratory: AE fair bilaterally and equal GI: Soft, bowel sounds + Musculoskeletal: No pedal edema, no cyanosis. Skin: No rash or abscess. Left groin central line, site with erythema, skin breakdown Hem/Lymphatic: No palpable cervical or supraclavicular nodes. No lymphangitis Psych: no agitation Neurological: sedated, intubated, on the vent, exam limited - Constitutional Vitals: Vital Signs Temp Pulse Resp BP Pulse Ox 98.7 F 92 H 18 125/76 100 12/22/21 07:19 12/22/21 08:07 12/22/21 08:07 12/22/21 08:07 12/22/21 08:07 Temperature -Last 24 Hours Temperature 98.7 F Temperature 99.1 F Temperature 98.4 F Temperature 98.4 F Temperature 98.4 F Temperature 99.0 F Temperature 99.0 F - Labs CBC & Chem 7: 12/22/21 04:14 12/22/21 04:14 Labs: Abnormal lab results 12/21/21 12/21/21 12/21/21 Range/Units 10:20 11:18 17:14 WBC (4.5-11.0) K/mm3 Hgb (10.1-14.3) gm/dl MCH (28-32) pg RDW (13.2-15.2) % Plt Count (140-440) K/mm3 POC ABG pO2 126.1 H (83-108) mmHg ABG Hemoglobin 11.1 L (12.0-17.5) Sodium (137-145) mmol/L Potassium (3.6-5.0) mmol/L BUN (7-17) mg/dL Creatinine (0.6-1.2) mg/dL Glucose (65-100) mg/dL POC Glucose 181 H 222 H (70-105) mg/dL Calcium (8.4-10.2) mg/dL 12/21/21 12/21/21 12/21/21 Range/Units 18:00 19:26 23:28 WBC 20.2 H (4.5-11.0) K/mm3 Hgb 9.9 L (10.1-14.3) gm/dl MCH 25 L (28-32) pg RDW 18.0 H (13.2-15.2) % Plt Count 60 L (140-440) K/mm3 POC ABG pO2 (83-108) mmHg ABG Hemoglobin (12.0-17.5) Sodium (137-145) mmol/L Potassium (3.6-5.0) mmol/L BUN (7-17) mg/dL Creatinine (0.6-1.2) mg/dL Glucose (65-100) mg/dL POC Glucose 214 H 260 H (70-105) mg/dL Calcium (8.4-10.2) mg/dL 12/22/21 12/22/21 12/22/21 Range/Units 04:14 04:14 05:28 WBC 23.9 H (4.5-11.0) K/mm3 Hgb (10.1-14.3) gm/dl MCH 25 L (28-32) pg RDW 17.8 H (13.2-15.2) % Plt Count 68 L (140-440) K/mm3 POC ABG pO2 (83-108) mmHg ABG Hemoglobin (12.0-17.5) Sodium 136 L (137-145) mmol/L Potassium 3.0 L (3.6-5.0) mmol/L BUN 52 H (7-17) mg/dL Creatinine 3.5 H (0.6-1.2) mg/dL Glucose 202 H (65-100) mg/dL POC Glucose 223 H (70-105) mg/dL Calcium 8.1 L (8.4-10.2) mg/dL - Imaging and cardiology Chest x-ray: report reviewed, image reviewed (ETT +)
--- NOTE | 2021-12-22 11:14 | Gastroenterology Progress Note ---
Assessment and Plan Acute rectal bleed in the setting of severe thrombocytopenia Differential diagnosis includes AVMs, hemorrhoids, polyps, mass, etc. Patient currently acutely ill in the ICU intubated and still with thrombocytopenia, therefore given stable hemoglobin recommend close clinical monitoring and trending of hemoglobin as risks of colonoscopy outweigh the benefits at this juncture If patient has continued bleeding with continued decrease in hemoglobin despite improving platelet count then she would require colonoscopy GI will continue to follow with you - Patient Problems (1) Rectal bleeding Current Visit: Yes Status: Acute (2) Elevated troponin Current Visit: Yes Status: Acute (3) Syncope Current Visit: Yes Status: Acute (4) ESRD (end stage renal disease) on dialysis Current Visit: Yes Status: Chronic Subjective Date of service: 12/22/21 Principal diagnosis: Septic shock ; Bacteremia; ESRD on dialysis; AMS; NSTEMI; HTN; DM II Interval history: Hemoglobin stable However patient has had 2 episodes of rectal bleeding this day and I spoke with the patient's nurse who says in addition to the episode documented in the chart at 4 AM patient had more blood about an hour ago rectal tube was placed no further output since then Objective - Constitutional Vitals: Temp Pulse Resp BP Pulse Ox 98.7 F 81 20 122/76 97 12/22/21 07:19 12/22/21 10:00 12/22/21 10:00 12/22/21 10:00 12/22/21 10:00 General appearance: other (Intubated) - Respiratory Respiratory effort: other (Mechanically ventilated) - Gastrointestinal General gastrointestinal: Present: soft - Integumentary Integumentary: Present: dry - Labs CBC & Chem 7: 12/22/21 04:14 12/22/21 04:14 Labs: Laboratory Results - last 24 hr 12/17/21 12/18/21 12/21/21 09:30 05:00 10:20 WBC RBC Hgb Hct MCV MCH MCHC RDW Plt Count Haptoglobin 193 Heparin Anti-Xa, Unfract Negative ABG pH 7.448 POC ABG pCO2 36.0 POC ABG pO2 126.1 H POC ABG HCO3 24.3 ABG O2 Saturation 98.6 POC ABG Base Excess 0.6 ABG Hemoglobin 11.1 L ABG Oxyhemoglobin 97.4 ABG Methemoglobin 0.3 ABG Sodium Not Reportable ABG Potassium Not Reportable ABG Chloride Not Reportable ABG Glucose Not Reportable Carboxyhemoglobin 0.9 FiO2 % 30.0 Sodium Potassium Chloride Carbon Dioxide Anion Gap BUN Creatinine Estimated GFR BUN/Creatinine Ratio Glucose POC Glucose Calcium Arterial Blood Glucose Not Reportable Heparin-induced Plt Ab Negative UF Heparin High Dose 1 JAMILAH UFH Low Dose 0.1 0 JAMILAH UFH Low Dose 0.5 0 12/21/21 12/21/21 12/21/21 11:18 17:14 18:00 WBC 20.2 H RBC 4.01 Hgb 9.9 L Hct 31.8 MCV 79 MCH 25 L MCHC 31 RDW 18.0 H Plt Count 60 L Haptoglobin Heparin Anti-Xa, Unfract ABG pH POC ABG pCO2 POC ABG pO2 POC ABG HCO3 ABG O2 Saturation POC ABG Base Excess ABG Hemoglobin ABG Oxyhemoglobin ABG Methemoglobin ABG Sodium ABG Potassium ABG Chloride ABG Glucose Carboxyhemoglobin FiO2 % Sodium Potassium Chloride Carbon Dioxide Anion Gap BUN Creatinine Estimated GFR BUN/Creatinine Ratio Glucose POC Glucose 181 H 222 H Calcium Arterial Blood Glucose Heparin-induced Plt Ab UF Heparin High Dose JAMILAH UFH Low Dose 0.1 JAMILAH UFH Low Dose 0.5 12/21/21 12/21/21 12/22/21 19:26 23:28 04:14 WBC 23.9 H RBC 4.28 Hgb 10.6 Hct 33.9 MCV 79 MCH 25 L MCHC 31 RDW 17.8 H Plt Count 68 L Haptoglobin Heparin Anti-Xa, Unfract ABG pH POC ABG pCO2 POC ABG pO2 POC ABG HCO3 ABG O2 Saturation POC ABG Base Excess ABG Hemoglobin ABG Oxyhemoglobin ABG Methemoglobin ABG Sodium ABG Potassium ABG Chloride ABG Glucose Carboxyhemoglobin FiO2 % Sodium Potassium Chloride Carbon Dioxide Anion Gap BUN Creatinine Estimated GFR BUN/Creatinine Ratio Glucose POC Glucose 214 H 260 H Calcium Arterial Blood Glucose Heparin-induced Plt Ab UF Heparin High Dose JAMILAH UFH Low Dose 0.1 JAMILAH UFH Low Dose 0.5 12/22/21 12/22/21 04:14 05:28 WBC RBC Hgb Hct MCV MCH MCHC RDW Plt Count Haptoglobin Heparin Anti-Xa, Unfract ABG pH POC ABG pCO2 POC ABG pO2 POC ABG HCO3 ABG O2 Saturation POC ABG Base Excess ABG Hemoglobin ABG Oxyhemoglobin ABG Methemoglobin ABG Sodium ABG Potassium ABG Chloride ABG Glucose Carboxyhemoglobin FiO2 % Sodium 136 L Potassium 3.0 L Chloride 98.5 Carbon Dioxide 23 Anion Gap 18 BUN 52 H Creatinine 3.5 H Estimated GFR 16 BUN/Creatinine Ratio 15 Glucose 202 H POC Glucose 223 H Calcium 8.1 L Arterial Blood Glucose Heparin-induced Plt Ab UF Heparin High Dose JAMILAH UFH Low Dose 0.1 JAMILAH UFH Low Dose 0.5
--- NOTE | 2021-12-22 11:17 | Progress Note ---
Assessment and Plan - Patient Problems (1) Syncope Current Visit: Yes Status: Acute Plan to address problem: Patient with end-stage renal disease on hemodialysis, admitted with transient dizziness and sepsis, suspected source indwelling Vas-Cath. History of a moderate severity cardiomyopathy, ejection fraction 35 to 40%. Follow-up 2D echocardiogram on this presentation showed no evidence of valvular vegetation. The etiology of her cardiomyopathy is not known at this time, we do not have her records from [place] for review. Continue guideline directed medical therapy as tolerated by clinical status. Subjective Date of service: 12/22/21 Principal diagnosis: Septic shock ; Bacteremia; ESRD on dialysis; AMS; NSTEMI; HTN; DM II Interval history: Patient is on the vent, currently undergoing dialysis. She opens eyes but unable to follow commands. Stable sinus rhythm at 68, systolic blood pressure 121. Objective Vital Signs Temp Pulse Pulse Pulse Resp Resp BP 12/22/21 10:00 81 20 122/76 12/22/21 08:07 93 H 92 H 18 125/76 12/22/21 08:00 88 15 125/76 12/22/21 07:19 98.7 F 12/22/21 07:00 82 16 122/62 12/22/21 06:00 84 15 123/54 12/22/21 05:00 83 12 130/64 12/22/21 04:05 80 2 L 133/67 12/22/21 04:00 99.1 F 81 81 15 128/68 12/22/21 03:00 79 21 133/67 12/22/21 02:00 85 0 L 119/53 12/22/21 01:00 84 4 L 98/41 12/22/21 00:00 98.4 F 89 89 14 120/66 12/21/21 23:32 76 8 L 132/79 12/21/21 23:00 87 17 118/71 12/21/21 22:10 79 15 132/79 12/21/21 22:00 76 15 132/79 12/21/21 21:00 85 11 L 135/88 12/21/21 20:35 84 8 L 132/79 12/21/21 20:30 82 20 12/21/21 20:00 98.4 F 82 91 H 19 127/58 12/21/21 19:00 81 19 134/83 12/21/21 18:00 82 20 134/84 12/21/21 17:33 98.4 F 12/21/21 16:59 79 143/92 12/21/21 16:00 79 79 22 144/87 12/21/21 15:00 83 23 151/87 12/21/21 14:00 89 20 163/83 12/21/21 13:01 94 H 17 12/21/21 13:00 83 21 151/83 12/21/21 12:57 86 160/73 12/21/21 12:00 99.0 F 86 86 17 140/80 12/21/21 11:25 99.0 F Pulse Ox 12/22/21 10:00 97 12/22/21 08:07 100 12/22/21 08:00 100 12/22/21 07:19 12/22/21 07:00 100 12/22/21 06:00 96 12/22/21 05:00 100 12/22/21 04:05 99 12/22/21 04:00 96 12/22/21 03:00 12/22/21 02:00 96 12/22/21 01:00 98 12/22/21 00:00 98 12/21/21 23:32 100 12/21/21 23:00 97 12/21/21 22:10 100 12/21/21 22:00 100 12/21/21 21:00 100 12/21/21 20:35 100 12/21/21 20:30 12/21/21 20:00 100 12/21/21 19:00 100 12/21/21 18:00 12/21/21 17:33 12/21/21 16:59 100 12/21/21 16:00 100 12/21/21 15:00 100 12/21/21 14:00 100 12/21/21 13:01 12/21/21 13:00 100 12/21/21 12:57 100 12/21/21 12:00 100 12/21/21 11:25 - Physical Examination General: Other (Sedated, on the vent) HEENT: Positive: PERRL Neck: Positive: neck supple Cardiac: Positive: Reg Rate and Rhythm Lungs: Positive: Decreased Breath Sounds Neuro: Positive: Other (Sedated, on the vent) Abdomen: Positive: Soft Skin: Positive: Clear Extremities: Absent: edema - Labs and Meds CBC 12/21/21 12/22/21 Range/Units 18:00 04:14 WBC 20.2 H 23.9 H (4.5-11.0) K/mm3 RBC 4.01 4.28 (3.65-5.03) M/mm3 Hgb 9.9 L 10.6 (10.1-14.3) gm/dl Hct 31.8 33.9 (30.3-42.9) % Plt Count 60 L 68 L (140-440) K/mm3 Comprehensive Metabolic Panel 12/22/21 Range/Units 04:14 Sodium 136 L (137-145) mmol/L Potassium 3.0 L (3.6-5.0) mmol/L Chloride 98.5 (98-107) mmol/L Carbon Dioxide 23 (22-30) mmol/L BUN 52 H (7-17) mg/dL Creatinine 3.5 H (0.6-1.2) mg/dL Glucose 202 H (65-100) mg/dL Calcium 8.1 L (8.4-10.2) mg/dL - Allied health notes Allied health notes reviewed: nursing
--- NOTE | 2021-12-22 11:22 | Progress Note ---
<JONNATHAN TATUM - Last Filed: 12/22/21 18:43> Assessment and Plan Assessment and plan: This is a 66-year-old female with known past medical history of ESRD on HD, HTN, heart-attack, and GERD initially admitted to the floor s/p fall at home. Patient was transferred to the ICU due to septic shock /2 GPC bacteremia requiring vasopressor. Hospital Course to Date: 12/12: No acute events overnight, reports extreme pain in her right leg, denies chest pain or shortness of breath 12/13: No acute events overnight, patient tearful and complaining of right leg pain however she is refusing analgesic medication 12/14: Continues to have right leg pain, does not participate in interview 12/15: Patient transferred to the ICU for hypotension on Levophed drip however she was weaned off by morning and midodrine was increased due to borderline MAP. Blood cultures grew 11/17 gram-positive cocci with suspected right upper chest permacath source. Patient started on vancomycin and infectious disease consu lted. Plan for IR consult for permacath removal and assessment of aVF functioning. Possible temporary Vas-Cath placement for hemodialysis. Patient is encephalopathic likely secondary to sepsis. Continue current antibiotics and repeat 2D echo and blood cultures in the a.m. Right upper extremity swelling and pain noted and right upper extremity XR and Doppler ordered. 12/16: Patient noted to have blisters on left arm and RN asked to elevate and place cool compresses to site. AV fistula on left upper extremity access by hemodialysis nurse and hemodialysis ongoing. Vasopressin ordered in efforts to wean Levophed while on hemodialysis. Echocardiogram repeated. Blood cultures grew beta-hemolytic strep group B and antibiotics changed to ceftriaxone. Dobutamine drip discontinued. Remained sedated on fentanyl drip. 12/17: Thrombocytopenia worse today, unable to tolerate being off vasopressin, started on steroids, HIT assay ordered-discontinued. SCDs for now. [facility] will like to give normal saline 100 ml/hr for 2 L. 12/18: Wound care consult placed for right upper extremity, PSV trials today, weaning Levophed, dialysis planned for today. Hematology/oncology consulted yesterday who recommends twice daily Solu-Medrol. No acute events reported overnight. Patient will be started on IV iron 12/19: PSV today, mentation better and intermittently follows commands. Platelets stable. Reglan started for vomiting and will slowly increase TF. KUB with no acute process. 12/20: PSV today, mentation unchanged, CTH without acute findings, Platelets remains stable with no signs of bleeding, high residuals reported overnight and TF was off from approximately 2429-9025. TF resumed around 0400 at currently at 20/hr. RN to increase as tolerated. [facility] plans extubation Wednesday. HD today. Will keep femoral line for now in setting of low plts 12/21: Patient had moderate BM today with bright red and dark red blood->CBC pending, coags, LDH ordered, GI consulted and Dr. Lambert alerted. PSV again today. Patient is still intermittently following commands. 12/22: Remains on the vent, more somnolent this am. Patient also with persistent bloody stools, H&H remains stable, GI is also following. Will keep patient NPO for now, IV PPI, and serial H&H. Patient is tolerating PSV trial, However, intubation postpone due to increased lethargy and GIB. Awaiting on GI recommendations. Assessment and Plan #Septic Shock 09/17 #GPC Bacteremia #Leukocytosis - Suspected source right upper chest Permacath, removed on 12/15 - Intial Blood cultures + beta-hemolytic strep group B in / bottles, repeat B.Cultures with NGTD - With persistent leukocytosis, afebrile - ID on consult, appreciated recommendations - Echo with no evidence of vegetation - Continue current IV Abx per ID - Continue to F/U on B.cult - Daily CBC monitor - Plan to discontinue femoral CVC, once new access is established. off pressors but no further vascular access re: AV graft and Right arm wounds #Heart Failure with Reduced Ejection Fraction #Severe Cardiomyopathy #NSTEMI #H/o Hypertension #History of CAD - Cardiology consulted, assistance appreciated - went in septic shock 09/17 bacteremia- s/p dobutamine and vaspressors - Echocardiogram 11/23: EF 35-40% - Repeat Echo this admit shows LVEF 30 to 35%, no valvular vegetations - Continue aspirin 81 mg and Lipitor 80 mg p.o. 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 #S/p Fall at home - most likely due to severe sepsis - CT head with no acute intracranial process - Imagings with no evidence of fractures or any acute findings - On the vent, not on any sedations, but lethargic - Continue current IV abx per ID - Frequent reorientation - Avoid benzodiazepine to reduce the possibility of delirium - Prn analgesia for pain management - Maintenance of sleep-wake cycle - Aspiration/seizure precautions - Continue fall precautions - Physical therapy eval ordered #Acute on Chronic Hypoxic Respiratory Failure - most likely due to fluid overload/sepsis shock - Decompensated on 12/15 was emergently intubated - Vent setting:PRVC-30%,6,12,450 - AM ABG pending - CCM consulted, appreciate recommendations - Continue HD per Nephro and IV Abx per ID - VAP bundle addressed - Aspiration precaution HOB above 30 - Daily SBT and SAT trials as tolerated - PRN ABG and CXR - Continue SPO2 monitoring for SPO2 goal above 92% #ESRD (End Stage Renal Disease) on HD - Nephrology on consult, appreciated recommendation - BRICE AV-fistula is functioning, patient tolerating HD - Continue HD per Nephro - Strict intake and output - Avoid nephrotoxic medications; Renally dose medications - Monitor and replace electrolytes as needed #Extravasation of RUE #Sacral Wounds - RUE extravasation of RUE- possibly levophed- Antidote not available - RUE doppler negative DVT - WOCN consult- continue dressing changes per nursing - PRN analgesia for pain management #Normocytic Anemia, chronic #Thrombocytopenia, chronic #Acute GI Bleed - Acute bloody stools since 12/21, probably due to low plt - H&H remains stable, Platelet count is improving - HIT panel pending - GI on consult - No plan for interventions at this time - Keep patient NPO, continue IV PPI and trend H&H - Continue to hold AC for now - Hematology is also following - Continue solu medrol 1mg/kg BID - Monitor for s/s of any active bleeding - Transfuse 1 unit of plts whenever plt count <20 - Transfuse for hemoglobin less than 7 #Type 2 Diabetes Mellitus # Multi-nodular thyroid gland - Continue BG check and SSI - Continue Hypoglycemic Protocol - Avoid Hypoglycemia - Multinodular thyroid gland noted on CT head - Possible thyroid US when more stable vs outpatient #GI/DVT Prophylaxis - PPI- IV Protonix - SCDs to bilateral lower extremities while in bed The high probability of a clinically significant, sudden or life threatening deterioration of the [multiple] system(s) required my full and direct attention, intervention and personal management. The aggregate critical care time was [60] minutes. This time is in addition to time spent performing reported procedures but includes the following: [x] Data Review and interpretation [x] Patient assessment and monitoring of vital signs [x] Documentation [x] Medication orders and management Disposition Plan: ICU Total Time Spent with Patient (Minutes): 60 History Interval history: Patient seen and examined at the bedside. Remains on the vent, not on any sedation. Lethargic and more somnolent this am. Patient with large bloody stools overnight and this am, VSS. Hospitalist Physical - Constitutional Vitals: Temp Pulse Resp BP Pulse Ox 99.2 F 81 20 122/76 97 12/22/21 11:19 12/22/21 10:00 12/22/21 10:00 12/22/21 10:00 12/22/21 10:00 General appearance: Present: no acute distress, other (On the vent.) - EENT Eyes: Present: PERRL - Neck Neck: Present: normal ROM - Respiratory Respiratory effort: normal Respiratory: bilateral: diminished - Cardiovascular Rhythm: regular Heart Sounds: Present: S1 & S2 - Extremities Extremities: abnormal (RUE extravasation) Extremity abnormal: edema - Peripheral Assessment Bilateral Upper Extremity Edema Type: Pitting Edema Degree: 3+ Capillary Refill: < 3 seconds Skin Temperature: Warm Peripheral Pulses: within normal limits - Abdominal General gastrointestinal: soft, non-distended, normal bowel sounds - Integumentary Integumentary: Present: warm, dry - Psychiatric Psychiatric: other (Arousable but more lethargic this am. Remains on the vent) - Neurologic Neurologic: other (Arousable but more lethargic this am. Remains on the vent) - Allied Health Allied health notes reviewed: nursing, case management HEART Score - HEART Score Troponin: Troponin T 0.175 ng/mL (0.00-0.029) H* 12/12/21 04:43 Results - Labs CBC & Chem 7: 12/22/21 Unknown 12/22/21 04:14 Labs: Laboratory Last Values WBC 23.9 K/mm3 (4.5-11.0) H 12/22/21 04:14 RBC 4.28 M/mm3 (3.65-5.03) 12/22/21 04:14 Hgb 10.6 gm/dl (10.1-14.3) 12/22/21 04:14 Hct 33.9 % (30.3-42.9) 12/22/21 04:14 MCV 79 fl (79-97) 12/22/21 04:14 MCH 25 pg (28-32) L 12/22/21 04:14 MCHC 31 % (30-34) 12/22/21 04:14 RDW 17.8 % (13.2-15.2) H 12/22/21 04:14 Plt Count 68 K/mm3 (140-440) L 12/22/21 04:14 Lymph % (Auto) 5.9 % (13.4-35.0) L 12/17/21 04:00 Platte % (Auto) 4.6 % (0.0-7.3) 12/17/21 04:00 Eos % (Auto) 0.4 % (0.0-4.3) 12/17/21 04:00 Baso % (Auto) 0.8 % (0.0-1.8) 12/17/21 04:00 Lymph # (Auto) 0.7 K/mm3 (1.2-5.4) L 12/17/21 04:00 Platte # (Auto) 0.6 K/mm3 (0.0-0.8) 12/17/21 04:00 Eos # (Auto) 0.0 K/mm3 (0.0-0.4) 12/17/21 04:00 Baso # (Auto) 0.1 K/mm3 (0.0-0.1) 12/17/21 04:00 Add Manual Diff Complete 12/18/21 05:00 Total Counted 100 12/19/21 05:00 Seg Neutrophils % Acid Wash Operator 12/19/21 05:00 Seg Neuts % (Manual) 93.0 % (40.0-70.0) H 12/19/21 05:00 Band Neutrophils % 2.0 % 12/19/21 05:00 Lymphocytes % (Manual) 2.0 % (13.4-35.0) L 12/19/21 05:00 Reactive Lymphs % (Man) 0 % 12/19/21 05:00 Monocytes % (Manual) 1.0 % (0.0-7.3) 12/19/21 05:00 Eosinophils % (Manual) 0 % (0.0-4.3) 12/19/21 05:00 Basophils % (Manual) 0 % (0.0-1.8) 12/19/21 05:00 Metamyelocytes % 2.0 % 12/19/21 05:00 Myelocytes % 0 % 12/19/21 05:00 Promyelocytes % 0 % 12/19/21 05:00 Blast Cells % 0 % 12/19/21 05:00 Nucleated RBC % Not Reportable 12/19/21 05:00 Seg Neutrophils # 10.9 K/mm3 (1.8-7.7) H 12/17/21 04:00 Seg Neutrophils # Man 17.6 K/mm3 (1.8-7.7) H 12/19/21 05:00 Band Neutrophils # 0.4 K/mm3 12/19/21 05:00 Lymphocytes # (Manual) 0.4 K/mm3 (1.2-5.4) L 12/19/21 05:00 Abs React Lymphs (Man) 0.0 K/mm3 12/19/21 05:00 Monocytes # (Manual) 0.2 K/mm3 (0.0-0.8) 12/19/21 05:00 Eosinophils # (Manual) 0.0 K/mm3 (0.0-0.4) 12/19/21 05:00 Basophils # (Manual) 0.0 K/mm3 (0.0-0.1) 12/19/21 05:00 Metamyelocytes # 0.4 K/mm3 12/19/21 05:00 Myelocytes # 0.0 K/mm3 12/19/21 05:00 Promyelocytes # 0.0 K/mm3 12/19/21 05:00 Blast Cells # 0.0 K/mm3 12/19/21 05:00 WBC Morphology Not Reportable 12/19/21 05:00 Hypersegmented Neuts Not Reportable 12/19/21 05:00 Hyposegmented Neuts 1+ 12/19/21 05:00 Hypogranular Neuts Not Reportable 12/19/21 05:00 Smudge Cells Not Reportable 12/19/21 05:00 Toxic Granulation Not Reportable 12/19/21 05:00 Toxic Vacuolation Not Reportable 12/19/21 05:00 Dohle Bodies Not Reportable 12/19/21 05:00 Pelger-Huet Anomaly Not Reportable 12/19/21 05:00 Charles Rods Not Reportable 12/19/21 05:00 Platelet Estimate Consistent w auto 12/19/21 05:00 Clumped Platelets Not Reportable 12/19/21 05:00 Plt Clumps, EDTA Not Reportable 12/19/21 05:00 Large Platelets Not Reportable 12/19/21 05:00 Giant Platelets Not Reportable 12/19/21 05:00 Platelet Satelliting Not Reportable 12/19/21 05:00 Plt Morphology Comment Not Reportable 12/19/21 05:00 RBC Morphology Not Reportable 12/19/21 05:00 Dimorphic RBCs Not Reportable 12/19/21 05:00 Polychromasia Not Reportable 12/19/21 05:00 Hypochromasia 1+ 12/19/21 05:00 Poikilocytosis Few 12/19/21 05:00 Anisocytosis Few 12/19/21 05:00 Microcytosis Not Reportable 12/19/21 05:00 Macrocytosis Not Reportable 12/19/21 05:00 Spherocytes Not Reportable 12/19/21 05:00 Pappenheimer Bodies Not Reportable 12/19/21 05:00 Sickle Cells Not Reportable 12/19/21 05:00 Target Cells Rare 12/19/21 05:00 Tear Drop Cells Not Reportable 12/19/21 05:00 Ovalocytes Rare 12/19/21 05:00 Helmet Cells Not Reportable 12/19/21 05:00 Murphy-[place] Bodies Not Reportable 12/19/21 05:00 [place] Rings Not Reportable 12/19/21 05:00 Mcgregor Cells Not Reportable 12/19/21 05:00 Bite Cells Not Reportable 12/19/21 05:00 Crenated Cell Not Reportable 12/19/21 05:00 Elliptocytes Not Reportable 12/19/21 05:00 Acanthocytes (Spur) Not Reportable 12/19/21 05:00 Rouleaux Rare 12/19/21 05:00 Hemoglobin C Crystals Not Reportable 12/19/21 05:00 Schistocytes Rare 12/19/21 05:00 Malaria parasites Not Reportable 12/19/21 05:00 Percent Retic 0.37 % (0.78-2.58) L 12/18/21 05:00 Bryson Bodies Not Reportable 12/19/21 05:00 Haptoglobin 193 mg/dL (43-212) 12/18/21 05:00 Hem Pathologist Commnt Not Reportable 12/19/21 05:00 PT 16.4 Sec. (12.2-14.9) H 12/21/21 08:35 INR 1.18 (0.87-1.13) H 12/21/21 08:35 Fibrinogen 351 mg/dl (211-480) 12/21/21 08:35 Heparin Anti-Xa, Unfract Negative (Negative) 12/17/21 09:30 ABG pH 7.448 (7.320-7.450) 12/21/21 10:20 POC ABG pCO2 36.0 mmHg (32.0-48.0) 12/21/21 10:20 ABG pCO2 45.6 mm Hg 12/18/21 20:00 POC ABG pO2 126.1 mmHg (83-108) H 12/21/21 10:20 ABG pO2 62.5 mm Hg (80.0-90.0) L 12/18/21 20:00 POC ABG HCO3 24.3 12/21/21 10:20 ABG HCO3 26.6 mmol/L (20.0-26.0) H 12/18/21 20:00 ABG O2 Saturation 98.6 (0-100) 12/21/21 10:20 ABG O2 Content 10.7 (0.0-44) 12/18/21 20:00 POC ABG Base Excess 0.6 12/21/21 10:20 ABG Base Excess 1.3 mmol/L (-2.0-3.0) 12/18/21 20:00 ABG Hemoglobin 11.1 (12.0-17.5) L 12/21/21 10:20 ABG Oxyhemoglobin 97.4 (94-98) 12/21/21 10:20 ABG Carboxyhemoglobin 1.7 % (0.0-5.0) 12/18/21 20:00 ABG Methemoglobin 0.3 (0.0-1.5) 12/21/21 10:20 ABG Sodium Not Reportable 12/21/21 10:20 ABG Potassium Not Reportable 12/21/21 10:20 ABG Chloride Not Reportable 12/21/21 10:20 ABG Glucose Not Reportable 12/21/21 10:20 VBG pO2 > 258.0 (25.0-47.0) H 12/15/21 19:50 Oxyhemoglobin 89.9 % (95.0-99.0) L 12/18/21 20:00 Carboxyhemoglobin 0.9 (0.5-1.5) 12/21/21 10:20 FiO2 30 % 12/18/21 20:00 FiO2 % 30.0 12/21/21 10:20 Sodium 136 mmol/L (137-145) L 12/22/21 04:14 Potassium 3.0 mmol/L (3.6-5.0) L 12/22/21 04:14 Chloride 98.5 mmol/L (98-107) 12/22/21 04:14 Carbon Dioxide 23 mmol/L (22-30) 12/22/21 04:14 Anion Gap 18 mmol/L 12/22/21 04:14 BUN 52 mg/dL (7-17) H 12/22/21 04:14 Creatinine 3.5 mg/dL (0.6-1.2) H 12/22/21 04:14 Estimated GFR 16 ml/min 12/22/21 04:14 BUN/Creatinine Ratio 15 % 12/22/21 04:14 Glucose 202 mg/dL (65-100) H 12/22/21 04:14 POC Glucose 223 mg/dL (70-105) H 12/22/21 05:28 Lactic Acid 1.90 mmol/L (0.7-2.0) 12/16/21 05:00 Calcium 8.1 mg/dL (8.4-10.2) L 12/22/21 04:14 Phosphorus 4.50 mg/dL (2.5-4.5) D 12/19/21 21:19 Magnesium 2.10 mg/dL (1.7-2.3) 12/18/21 12:00 Iron 13 ug/dL (37-170) L 12/18/21 05:00 TIBC 109 mcg/dL (250-450) L 12/18/21 05:00 Ferritin 383.4 ng/mL (10.0-200.0) H 12/18/21 05:00 Total Bilirubin 0.60 mg/dL (0.1-1.2) 12/11/21 15:40 AST 22 units/L (5-40) 12/11/21 15:40 ALT 13 units/L (7-56) 12/11/21 15:40 Alkaline Phosphatase 237 units/L (35-129) H 12/11/21 15:40 Lactate Dehydrogenase 249 units/L (91-180) H 12/21/21 08:35 Troponin T 0.175 ng/mL (0.00-0.029) H* 12/12/21 04:43 C-Reactive Protein 38.50 mg/dL (0.00-1.30) H 12/15/21 14:40 Total Protein 7.4 g/dL (6.3-8.2) 12/11/21 15:40 Albumin 3.6 g/dL (3.9-5) L 12/11/21 15:40 Albumin/Globulin Ratio 0.9 % 12/11/21 15:40 Triglycerides 92 mg/dL (2-149) 12/11/21 15:40 Cholesterol 72 mg/dL (50-199) 12/11/21 15:40 LDL Cholesterol Direct 16 mg/dL (50-130) L 12/11/21 15:40 HDL Cholesterol 41 mg/dL (40-59) 12/11/21 15:40 Cholesterol/HDL Ratio 1.75 % 12/11/21 15:40 Procalcitonin 46.16 ng/mL (<0.15) 12/15/21 04:11 Arterial Blood Glucose Not Reportable 12/21/21 10:20 Random Vancomycin 15.6 ug/mL (0-40.0) 12/16/21 05:00 Heparin-induced Plt Ab Negative (Negative) 12/17/21 09:30 UF Heparin High Dose 1 % Release 12/17/21 09:30 JAMILAH UFH Low Dose 0.1 0 % Release 12/17/21 09:30 JAMILAH UFH Low Dose 0.5 0 % Release 12/17/21 09:30 Blood Type O POSITIVE 12/17/21 09:30 Antibody Screen Negative 12/17/21 09:30 Microbiology: Microbiology 12/16/21 10:03 Peripheral/Venous Blood Culture - Final NO GROWTH AFTER 5 DAYS 12/16/21 09:57 Peripheral/Venous Blood Culture - Final NO GROWTH AFTER 5 DAYS Active Medications - Current Medications Current Medications: Generic Name Dose Route Start Last Admin Trade Name Freq PRN Reason Stop Dose Admin Acetaminophen 650 mg 12/13/21 23:00 12/13/21 23:18 Acetaminophen 650 Mg Rect Supp TN 650 mg Q4H PRN Administration Pain, Mild (1-3) Albuterol 2.5 mg 12/11/21 22:14 Albuterol 2.5 Mg/3 Ml Nebu IH Q6HR PRN Wheezing Albuterol/Ipratropium 1 ampul 12/14/21 08:00 12/22/21 08:07 Ipratropium/Albuterol Sulfate 3 Ml Ampul.Neb IH 1 ampul TIDRT KRISTA Administration Lipase/Protease/Amylase 1 each 12/16/21 11:15 Lipase 10,500/Protease 25,000/Amylase 43,750 (Units) Dr Blanco FEEDTUBE PRN PRN For Clogged Feeding Tube Aspirin 81 mg 12/15/21 10:00 12/22/21 09:16 Aspirin 81 Mg Tab Chew FEEDTUBE 81 mg QDAY KRISTA Administration Atorvastatin Calcium 80 mg 12/15/21 22:00 12/21/21 21:21 Atorvastatin 40 Mg Tab FEEDTUBE 80 mg QHS KRISTA Administration Budesonide 0.5 mg 12/13/21 08:00 12/22/21 08:07 Budesonide 0.5 Mg/2 Ml Nebu IH 0.5 mg Q12HRT KRISTA Administration Dextrose 50 ml 12/11/21 22:23 12/16/21 06:24 Dextrose 50% In Water (25gm) 50 Ml Syringe IV 15 ml Q30MIN PRN Administration Hypoglycemia Protocol Famotidine 10 mg 12/22/21 22:00 Famotidine 10 Mg Tab FEEDTUBE BID KRISTA Fentanyl 50 mcg 12/15/21 17:19 12/22/21 09:17 Fentanyl 100 Mcg/2 Ml Inj IV 50 mcg Q10MIN PRN Administration ANALGESIA Hydrophilic Ointment 1 applic 12/16/21 14:30 Lip Therapy Vaseline TP Q2HR PRN Dry Lips Sodium Chloride 100 mls @ 999 mls/hr 12/12/21 12:00 Nacl 0.9% IV ABEL PRN Hypotension NORepinephrine/NS 8 MG-250 ML 8 mg in 250 mls @ 3.75 mls/hr 12/14/21 23:00 12/18/21 19:02 Norepinephrine/Ns 8 Mg-250 Ml (Double Conc) IV 0 mcg/min TITRATE KRISTA 0 mls/hr Titration Protocol 2 MCG/MIN Fentanyl Citrate 2,000 mcg in 100 mls @ 2.945 mls/hr 12/15/21 18:00 12/19/21 18:28 Fentanyl Drip Premix IV 0 mcg/kg/hr TITR KRISTA 0 mls/hr Titration Protocol 1 MCG/KG/HR Ceftriaxone Sodium 2 gm in 100 mls @ 200 mls/hr 12/16/21 15:00 12/21/21 15:27 Rocephin/Ns 2 Gm/100 Ml IV 12/29/21 15:29 200 mls/hr Q24H KRISTA Administration Protocol Insulin Glargine 5 units 12/21/21 22:00 12/21/21 21:21 Insulin Glargine 100 Units/Ml SUB-Q 5 units QHS KRISTA Administration Insulin Human Lispro 0 unit 12/15/21 12:00 12/22/21 05:36 Insulin Lispro 100 Unit/Ml SUB-Q 4 unit Q6HR KRISTA Administration Protocol Levetiracetam 500 mg 12/16/21 18:00 12/20/21 17:50 Levetiracetam 500 Mg/5 Ml Oral Liqd FEEDTUBE 500 mg TuThSa KRISTA Administration Metoclopramide HCl 2.5 mg 12/21/21 10:00 12/22/21 09:17 Metoclopramide 10 Mg/2 Ml Inj IV 2.5 mg Q6H KRISTA Administration Midodrine 10 mg 12/15/21 12:00 12/22/21 09:16 Midodrine 10 Mg Tab FEEDTUBE 10 mg TID@0800,1200,1600 KRISTA Administration Morphine Sulfate 2 mg 12/11/21 22:11 Morphine 4 Mg/1 Ml Inj IV Q5MIN PRN Chest Pain unrelieved by NTG Multi-Ingred Cream/Lotion/Oil/Oint 1 applic 12/16/21 14:10 Mineral Oil/Petrolatum, White Ophth Oint 3.5 Gm OU Q4HR PRN Dry Eye(s) Nitroglycerin 0.4 mg 12/11/21 22:11 Nitroglycerin 0.4 Mg Tab Subl SL Q5M PRN Chest Pain Senna/Docusate Sodium 1 tab 12/16/21 22:00 12/22/21 09:16 Sennosides/Docusate Sodium 8.6/50 Mg Tab FEEDTUBE 1 tab BID KRISTA Administration Simple Syrup 15 ml 12/16/21 11:15 Simple Syrup 15 Ml FEEDTUBE PRN PRN Hypoglycemia Simple Syrup 30 ml 12/16/21 11:15 Simple Syrup 15 Ml FEEDTUBE PRN PRN Hypoglycemia Sodium Bicarbonate 325 mg 12/16/21 11:15 Sodium Bicarbonate 325 Mg Tab FEEDTUBE PRN PRN For Clogged Feeding Tube Sodium Chloride 10 ml 12/11/21 22:11 12/22/21 09:17 Sodium Chloride 0.9% 10 Ml Flush Syringe IV 10 ml PRN PRN Administration LINE FLUSH Nutrition/Malnutrition Assess - Dietary Evaluation Nutrition/Malnutrition Findings: Nutrition Notes Start: 12/12/21 11:57 Freq: Status: Active Protocol: Document 12/19/21 17:08 EVERARDO (Rec: 12/19/21 17:19 EVERARDO [email or web address]) Nutrition Notes Initial or Follow up Brief Note Current Diagnosis CKD (stage V CKD),Diabetes, Sepsis,Hypertension, Respiratory Failure Other Pertinent Diagnosis CKD+HD, Hypotension, GPC Bacteremia, s/p Fall, ... Current Diet TF-Nepro w/CARBSTEADY @ 30 ml/ hr (from L 12/17). Height 4 ft 11 in Weight 66.5 kg Douglas Body Weight (kg) 43.18 BMI 29.6 Weight change and time frame 7.6 Kg body weight gain in 3 days reported. Weight Status Overweight Subjective/Other Information RD consult for routine F/U on TF tolerance assessment. TF continues as prescribed, TF restarted after belching episode. Will continue to monitor at F/U. RN Note on 12/19/21 09:29: 0730-Upon assessment of patient tube feedings noted to still be held at this time. Gastric residuals checked and contained 40cc of dark green bile. Patient had a small belching episode while assessment and oral care was going on. FLEECE TIER made aware. Tube feeds to remain held at this time. Pending xray results of stomach. Reglan to be given ( See MAR). Addendum entered by FRED VIVEROS RN 12/19/21 09:52: 0950-FLEECE TIER okayed to restart tube feeds at low rate (10cc/hr) for goal of 30 cc/ hr. Percent of energy/protein needs met: Prescribed TF-Nepro w/ CARBSTEADY @ 30 ml/hr provides for energy/protein needs (1, 296 Kcal/58 g) during LOS, 103 % Kcal; 82% AA. #1 Nutrition Diagnosis Inadequate oral intake Diagnosis Progress(for reassessment Continues documentation) Nutrition Intervention Nutrition Support: Continue TF-Nepro w/CARBSTEADY @ 30 ml/hr. Flush: 130 ml water Q 4 hr, or as per MD. Kcal 1,269 Protein (gm) 58 Carbohydrates (gm) 116 Fat (gm) 69 Fluid (mL) 523 Fiber (gm) 9 % RDI: 103% Kcal; 82% AA. Goal #1 Provide at least 75% of energy /protein needs through Enteral Feeding during LOS. Goal #2 Maintain body weight within +/ -3% of admission body weight during LOS. Follow-Up By: 12/22/21 Additional Comments Continue monitoring TF tolerance and BM. <AUSTIN STARR - Last Filed: 12/23/21 07:35> Assessment and Plan Assessment and plan: I saw and evaluated the patient. I agree with the findings and the plan of care as documented in the Nurse Practitioner's~note, with the following corrections and additions. Hospitalist Physical - Constitutional Vitals: Temp Pulse Resp BP Pulse Ox 99 F 77 13 111/57 100 12/23/21 04:00 12/23/21 06:00 12/23/21 06:00 12/23/21 06:00 12/23/21 06:00 HEART Score - HEART Score Troponin: Troponin T 0.175 ng/mL (0.00-0.029) H* 12/12/21 04:43 Results - Labs CBC & Chem 7: 12/23/21 04:39 12/23/21 04:39 Labs: Laboratory Last Values WBC 21.1 K/mm3 (4.5-11.0) H 12/23/21 04:39 RBC 3.94 M/mm3 (3.65-5.03) 12/23/21 04:39 Hgb 10.0 gm/dl (10.1-14.3) L 12/23/21 04:39 Hct 31.2 % (30.3-42.9) 12/23/21 04:39 MCV 79 fl (79-97) 12/23/21 04:39 MCH 26 pg (28-32) L 12/23/21 04:39 MCHC 32 % (30-34) 12/23/21 04:39 RDW 17.6 % (13.2-15.2) H 12/23/21 04:39 Plt Count 79 K/mm3 (140-440) L 12/23/21 04:39 Lymph % (Auto) 5.9 % (13.4-35.0) L 12/17/21 04:00 [place]atte % (Auto) 4.6 % (0.0-7.3) 12/17/21 04:00 Eos % (Auto) 0.4 % (0.0-4.3) 12/17/21 04:00 Baso % (Auto) 0.8 % (0.0-1.8) 12/17/21 04:00 Lymph # (Auto) 0.7 K/mm3 (1.2-5.4) L 12/17/21 04:00 [place] # (Auto) 0.6 K/mm3 (0.0-0.8) 12/17/21 04:00 Eos # (Auto) 0.0 K/mm3 (0.0-0.4) 12/17/21 04:00 Baso # (Auto) 0.1 K/mm3 (0.0-0.1) 12/17/21 04:00 Add Manual Diff Complete 12/18/21 05:00 Total Counted 100 12/19/21 05:00 Seg Neutrophils % Acid Wash Operator 12/19/21 05:00 Seg Neuts % (Manual) 93.0 % (40.0-70.0) H 12/19/21 05:00 Band Neutrophils % 2.0 % 12/19/21 05:00 Lymphocytes % (Manual) 2.0 % (13.4-35.0) L 12/19/21 05:00 Reactive Lymphs % (Man) 0 % 12/19/21 05:00 Monocytes % (Manual) 1.0 % (0.0-7.3) 12/19/21 05:00 Eosinophils % (Manual) 0 % (0.0-4.3) 12/19/21 05:00 Basophils % (Manual) 0 % (0.0-1.8) 12/19/21 05:00 Metamyelocytes % 2.0 % 12/19/21 05:00 Myelocytes % 0 % 12/19/21 05:00 Promyelocytes % 0 % 12/19/21 05:00 Blast Cells % 0 % 12/19/21 05:00 Nucleated RBC % Not Reportable 12/19/21 05:00 Seg Neutrophils # 10.9 K/mm3 (1.8-7.7) H 12/17/21 04:00 Seg Neutrophils # Man 17.6 K/mm3 (1.8-7.7) H 12/19/21 05:00 Band Neutrophils # 0.4 K/mm3 12/19/21 05:00 Lymphocytes # (Manual) 0.4 K/mm3 (1.2-5.4) L 12/19/21 05:00 Abs React Lymphs (Man) 0.0 K/mm3 12/19/21 05:00 Monocytes # (Manual) 0.2 K/mm3 (0.0-0.8) 12/19/21 05:00 Eosinophils # (Manual) 0.0 K/mm3 (0.0-0.4) 12/19/21 05:00 Basophils # (Manual) 0.0 K/mm3 (0.0-0.1) 12/19/21 05:00 Metamyelocytes # 0.4 K/mm3 12/19/21 05:00 Myelocytes # 0.0 K/mm3 12/19/21 05:00 Promyelocytes # 0.0 K/mm3 12/19/21 05:00 Blast Cells # 0.0 K/mm3 12/19/21 05:00 WBC Morphology Not Reportable 12/19/21 05:00 Hypersegmented Neuts Not Reportable 12/19/21 05:00 Hyposegmented Neuts 1+ 12/19/21 05:00 Hypogranular Neuts Not Reportable 12/19/21 05:00 Smudge Cells Not Reportable 12/19/21 05:00 Toxic Granulation Not Reportable 12/19/21 05:00 Toxic Vacuolation Not Reportable 12/19/21 05:00 Dohle Bodies Not Reportable 12/19/21 05:00 Pelger-Huet Anomaly Not Reportable 12/19/21 05:00 Charles Rods Not Reportable 12/19/21 05:00 Platelet Estimate Consistent w auto 12/19/21 05:00 Clumped Platelets Not Reportable 12/19/21 05:00 Plt Clumps, EDTA Not Reportable 12/19/21 05:00 Large Platelets Not Reportable 12/19/21 05:00 Giant Platelets Not Reportable 12/19/21 05:00 Platelet Satelliting Not Reportable 12/19/21 05:00 Plt Morphology Comment Not Reportable 12/19/21 05:00 RBC Morphology Not Reportable 12/19/21 05:00 Dimorphic RBCs Not Reportable 12/19/21 05:00 Polychromasia Not Reportable 12/19/21 05:00 Hypochromasia 1+ 12/19/21 05:00 Poikilocytosis Few 12/19/21 05:00 Anisocytosis Few 12/19/21 05:00 Microcytosis Not Reportable 12/19/21 05:00 Macrocytosis Not Reportable 12/19/21 05:00 Spherocytes Not Reportable 12/19/21 05:00 Pappenheimer Bodies Not Reportable 12/19/21 05:00 Sickle Cells Not Reportable 12/19/21 05:00 Target Cells Rare 12/19/21 05:00 Tear Drop Cells Not Reportable 12/19/21 05:00 Ovalocytes Rare 12/19/21 05:00 Helmet Cells Not Reportable 12/19/21 05:00 Murphy-[place] Bodies Not Reportable 12/19/21 05:00 [place] Rings Not Reportable 12/19/21 05:00 Mcgregor Cells Not Reportable 12/19/21 05:00 Bite Cells Not Reportable 12/19/21 05:00 Crenated Cell Not Reportable 12/19/21 05:00 Elliptocytes Not Reportable 12/19/21 05:00 Acanthocytes (Spur) Not Reportable 12/19/21 05:00 Rouleaux Rare 12/19/21 05:00 Hemoglobin C Crystals Not Reportable 12/19/21 05:00 Schistocytes Rare 12/19/21 05:00 Malaria parasites Not Reportable 12/19/21 05:00 Percent Retic 0.37 % (0.78-2.58) L 12/18/21 05:00 Bryson Bodies Not Reportable 12/19/21 05:00 Haptoglobin 193 mg/dL (43-212) 12/18/21 05:00 Hem Pathologist Commnt Not Reportable 12/19/21 05:00 PT 17.7 Sec. (12.2-14.9) H 12/22/21 14:05 INR 1.30 (0.87-1.13) H 12/22/21 14:05 Fibrinogen 351 mg/dl (211-480) 12/21/21 08:35 Heparin Anti-Xa, Unfract Negative (Negative) 12/17/21 09:30 ABG pH 7.448 (7.320-7.450) 12/21/21 10:20 POC ABG pCO2 36.0 mmHg (32.0-48.0) 12/21/21 10:20 ABG pCO2 45.6 mm Hg 12/18/21 20:00 POC ABG pO2 126.1 mmHg (83-108) H 12/21/21 10:20 ABG pO2 62.5 mm Hg (80.0-90.0) L 12/18/21 20:00 POC ABG HCO3 24.3 12/21/21 10:20 ABG HCO3 26.6 mmol/L (20.0-26.0) H 12/18/21 20:00 ABG O2 Saturation 98.6 (0-100) 12/21/21 10:20 ABG O2 Content 10.7 (0.0-44) 12/18/21 20:00 POC ABG Base Excess 0.6 12/21/21 10:20 ABG Base Excess 1.3 mmol/L (-2.0-3.0) 12/18/21 20:00 ABG Hemoglobin 11.1 (12.0-17.5) L 12/21/21 10:20 ABG Oxyhemoglobin 97.4 (94-98) 12/21/21 10:20 ABG Carboxyhemoglobin 1.7 % (0.0-5.0) 12/18/21 20:00 ABG Methemoglobin 0.3 (0.0-1.5) 12/21/21 10:20 ABG Sodium Not Reportable 12/21/21 10:20 ABG Potassium Not Reportable 12/21/21 10:20 ABG Chloride Not Reportable 12/21/21 10:20 ABG Glucose Not Reportable 12/21/21 10:20 VBG pO2 > 258.0 (25.0-47.0) H 12/15/21 19:50 Oxyhemoglobin 89.9 % (95.0-99.0) L 12/18/21 20:00 Carboxyhemoglobin 0.9 (0.5-1.5) 12/21/21 10:20 FiO2 30 % 12/18/21 20:00 FiO2 % 30.0 12/21/21 10:20 Sodium 136 mmol/L (137-145) L 12/23/21 04:39 Potassium 4.0 mmol/L (3.6-5.0) D 12/23/21 04:39 Chloride 100.9 mmol/L (98-107) 12/23/21 04:39 Carbon Dioxide 19 mmol/L (22-30) L 12/23/21 04:39 Anion Gap 20 mmol/L 12/23/21 04:39 BUN 61 mg/dL (7-17) H 12/23/21 04:39 Creatinine 4.5 mg/dL (0.6-1.2) H 12/23/21 04:39 Estimated GFR 12 ml/min 12/23/21 04:39 BUN/Creatinine Ratio 14 % 12/23/21 04:39 Glucose 113 mg/dL (65-100) H 12/23/21 04:39 POC Glucose 109 mg/dL (70-105) H 12/23/21 05:11 Lactic Acid 1.90 mmol/L (0.7-2.0) 12/16/21 05:00 Calcium 7.9 mg/dL (8.4-10.2) L 12/23/21 04:39 Phosphorus 4.90 mg/dL (2.5-4.5) H 12/23/21 04:39 Magnesium 1.90 mg/dL (1.7-2.3) 12/23/21 04:39 Iron 13 ug/dL (37-170) L 12/18/21 05:00 TIBC 109 mcg/dL (250-450) L 12/18/21 05:00 Ferritin 383.4 ng/mL (10.0-200.0) H 12/18/21 05:00 Total Bilirubin 0.60 mg/dL (0.1-1.2) 12/11/21 15:40 AST 22 units/L (5-40) 12/11/21 15:40 ALT 13 units/L (7-56) 12/11/21 15:40 Alkaline Phosphatase 237 units/L (35-129) H 12/11/21 15:40 Lactate Dehydrogenase 249 units/L (91-180) H 12/21/21 08:35 Troponin T 0.175 ng/mL (0.00-0.029) H* 12/12/21 04:43 C-Reactive Protein 38.50 mg/dL (0.00-1.30) H 12/15/21 14:40 Total Protein 7.4 g/dL (6.3-8.2) 12/11/21 15:40 Albumin 3.6 g/dL (3.9-5) L 12/11/21 15:40 Albumin/Globulin Ratio 0.9 % 12/11/21 15:40 Triglycerides 92 mg/dL (2-149) 12/11/21 15:40 Cholesterol 72 mg/dL (50-199) 12/11/21 15:40 LDL Cholesterol Direct 16 mg/dL (50-130) L 12/11/21 15:40 HDL Cholesterol 41 mg/dL (40-59) 12/11/21 15:40 Cholesterol/HDL Ratio 1.75 % 12/11/21 15:40 Procalcitonin 46.16 ng/mL (<0.15) 12/15/21 04:11 Arterial Blood Glucose Not Reportable 12/21/21 10:20 Random Vancomycin 15.6 ug/mL (0-40.0) 12/16/21 05:00 Heparin-induced Plt Ab Negative (Negative) 12/17/21 09:30 UF Heparin High Dose 1 % Release 12/17/21 09:30 JAMILAH UFH Low Dose 0.1 0 % Release 12/17/21 09:30 JAMILAH UFH Low Dose 0.5 0 % Release 12/17/21 09:30 Blood Type O POSITIVE 12/17/21 09:30 Antibody Screen Negative 12/17/21 09:30 Active Medications - Current Medications Current Medications: Generic Name Dose Route Start Last Admin Trade Name Freq PRN Reason Stop Dose Admin Acetaminophen 650 mg 12/13/21 23:00 12/13/21 23:18 Acetaminophen 650 Mg Rect Supp TN 650 mg Q4H PRN Administration Pain, Mild (1-3) Albuterol 2.5 mg 12/11/21 22:14 Albuterol 2.5 Mg/3 Ml Nebu IH Q6HR PRN Wheezing Albuterol/Ipratropium 1 ampul 12/14/21 08:00 12/22/21 20:05 Ipratropium/Albuterol Sulfate 3 Ml Ampul.Neb IH 1 ampul TIDRT KRISTA Administration Lipase/Protease/Amylase 1 each 12/16/21 11:15 Lipase 10,500/Protease 25,000/Amylase 43,750 (Units) Cap FEEDTUBE PRN PRN For Clogged Feeding Tube Aspirin 81 mg 12/15/21 10:00 12/22/21 09:16 Aspirin 81 Mg Tab Chew FEEDTUBE 81 mg QDAY KRISTA Administration Atorvastatin Calcium 80 mg 12/15/21 22:00 12/22/21 21:03 Atorvastatin 40 Mg Tab FEEDTUBE 80 mg QHS KRISTA Administration Budesonide 0.5 mg 12/13/21 08:00 12/22/21 20:05 Budesonide 0.5 Mg/2 Ml Nebu IH 0.5 mg Q12HRT KRISTA Administration Dextrose 50 ml 12/11/21 22:23 12/16/21 06:24 Dextrose 50% In Water (25gm) 50 Ml Syringe IV 15 ml Q30MIN PRN Administration Hypoglycemia Protocol Hydrophilic Ointment 1 applic 12/16/21 14:30 Lip Therapy Vaseline TP Q2HR PRN Dry Lips Sodium Chloride 100 mls @ 999 mls/hr 12/12/21 12:00 Nacl 0.9% IV ABEL PRN Hypotension NORepinephrine/NS 8 MG-250 ML 8 mg in 250 mls @ 3.75 mls/hr 12/14/21 23:00 12/18/21 19:02 Norepinephrine/Ns 8 Mg-250 Ml (Double Conc) IV 0 mcg/min TITRATE KRISTA 0 mls/hr Titration Protocol 2 MCG/MIN Fentanyl Citrate 2,000 mcg in 100 mls @ 2.945 mls/hr 12/15/21 18:00 12/19/21 18:28 Fentanyl Drip Premix IV 0 mcg/kg/hr TITR KRISTA 0 mls/hr Titration Protocol 1 MCG/KG/HR Ceftriaxone Sodium 2 gm in 100 mls @ 200 mls/hr 12/16/21 15:00 12/22/21 16:45 Rocephin/Ns 2 Gm/100 Ml IV 12/29/21 15:29 200 mls/hr Q24H [facility] Administration Protocol Dextrose 1,000 mls @ 25 mls/hr 12/23/21 01:00 12/23/21 00:38 D10w IV 25 mls/hr DIRECT KRISTA Administration Insulin Glargine 5 units 12/21/21 22:00 12/22/21 21:00 Insulin Glargine 100 Units/Ml SUB-Q Not Given QHS [facility] Insulin Human Lispro 0 unit 12/15/21 12:00 12/23/21 05:28 Insulin Lispro 100 Unit/Ml SUB-Q Not Given Q6HR [facility] Protocol Levetiracetam 500 mg 12/16/21 18:00 12/20/21 17:50 Levetiracetam 500 Mg/5 Ml Oral Liqd FEEDTUBE 500 mg TuThSa [facility] Administration Metoclopramide HCl 2.5 mg 12/21/21 10:00 12/23/21 03:35 Metoclopramide 10 Mg/2 Ml Inj IV Not Given Q6H [facility] Midodrine 10 mg 12/15/21 12:00 12/22/21 16:47 Midodrine 10 Mg Tab FEEDTUBE 10 mg TID@0800,1200,1600 [facility] Administration Morphine Sulfate 2 mg 12/11/21 22:11 Morphine 4 Mg/1 Ml Inj IV Q5MIN PRN Chest Pain unrelieved by NTG Multi-Ingred Cream/Lotion/Oil/Oint 1 applic 12/16/21 14:10 Mineral Oil/Petrolatum, White Ophth Oint 3.5 Gm OU Q4HR PRN Dry Eye(s) Nitroglycerin 0.4 mg 12/11/21 22:11 Nitroglycerin 0.4 Mg Tab Subl SL Q5M PRN Chest Pain Pantoprazole Sodium 40 mg 12/22/21 22:00 12/22/21 21:04 Pantoprazole 40 Mg Inj IV 40 mg BID KRISTA Administration Senna/Docusate Sodium 1 tab 12/16/21 22:00 12/22/21 21:01 Sennosides/Docusate Sodium 8.6/50 Mg Tab FEEDTUBE Not Given BID KRISTA Simple Syrup 15 ml 12/16/21 11:15 Simple Syrup 15 Ml FEEDTUBE PRN PRN Hypoglycemia Simple Syrup 30 ml 12/16/21 11:15 Simple Syrup 15 Ml FEEDTUBE PRN PRN Hypoglycemia Sodium Bicarbonate 325 mg 12/16/21 11:15 Sodium Bicarbonate 325 Mg Tab FEEDTUBE PRN PRN For Clogged Feeding Tube Sodium Chloride 10 ml 12/11/21 22:11 12/22/21 09:17 Sodium Chloride 0.9% 10 Ml Flush Syringe IV 10 ml PRN PRN Administration LINE FLUSH Nutrition/Malnutrition Assess - Dietary Evaluation Nutrition/Malnutrition Findings: Nutrition Notes Start: 12/12/21 11:57 Freq: Status: Active Protocol: Document 12/22/21 14:20 [facility] (Rec: 12/22/21 14:29 [facility] [id number]) Nutrition Notes Initial or Follow up Reassessment Current Diagnosis CKD (stage V CKD),Coronary Artery Disease,Sepsis, Hypertension,Heart Failure, Respiratory Failure Other Pertinent Diagnosis Rectal bleeding, syncope, s/p fall, (R) hip pain Current Diet TF - Nepro at 30ml/hr Labs/Tests Na 136 K 3 BG 202 BUN 52 Cr 3.5 Pertinent Medications Lantus, Reglan, Protonix, Senokot Height 4 ft 11 in Weight 61.9 kg [place] Body Weight (kg) 43.18 BMI 27.6 Weight Status Overweight Subjective/Other Information TF off at time of visit (12:49 ). Per RN, TF off sec to GIB. Per GI, continue close clinical monitoring and trending of Hgb. Pt remains on vent support. Burn Absent Trauma Absent #1 Nutrition Diagnosis Inadequate oral intake Diagnosis Progress(for reassessment Continues documentation) Is patient on ventilator? Yes Is Patient Ambulatory and/or Out of Bed No REE-([facility]-confined to bed) [phone] Calculation Used for Recommendations [facility] Additional Notes Protein >1.2g/kg: >74g/day Fluids: 1-1.5 L/day. Nutrition Intervention Nutrition Support: Resume TF when medically feasible Goal #1 Resume TF to meet nutrient needs Follow-Up By: 12/24/21 Additional Comments F/U: TF restart, vent status, renal function, GIB
--- NOTE | 2021-12-22 12:16 | Progress Note ---
Assessment and Plan Septic shock Bacteremia with gram-positive cocci End-stage renal disease on dialysis Acute toxic metabolic encephalopathy Thrombocytopenia Non-ST elevation myocardial infarction A-Fib with RVR Hypertension Diabetes type 2 Anemia that is normocytic (AMS is the rate limiting factor for safe extubation so far but improving) - follow next H&H - discussed with GI team, will re-assess for endoscopy after next H&H - continue SBT but will hold on extubation till GI issues resolved - will plan to get RIJ CVL and discontinue femoral access (off pressors but no further vascular access re: AV graft and Right arm wounds) - follow HIT assay - continue care as below otherwise; - continue wound care per RN / WCN - prn vasopressors for target MAP > 65 mmHg - thrombocytopenia is improving - Daily SAT and SBT assessment as tolerated - continue to wean supplemental oxygen for target O2 sat's > 90% acutely - VAP bundle addressed - continue lung protective strategies - continue bronchodilators with pulmonary hygiene per RT - wean per pulmonary driven protocols otherwise - continue HD/UF for toxin and volume clearance - avoid nephrotoxins, renally dose all medications - continue to avoid benzodiazepine's, reduce the possibility of delirium - complete AB's per ID rec's (On Rocephin) - prn analgesia per CPOT score - Maintenance of sleep-wake cycle, avoid delirium - continue enteral nutritional support at goal rate as tolerated - G.I. & VTE prophylaxis - PT/OT/ROM exercises - continue mobility protocols for pressure ulcer prophylaxis - Monitor hemodynamics closely - continue other care per attending / other consultants - discharge planning ongoing concurrently .... Re-evaluate in am & prn CONDITION: CRITICAL PROGNOSIS: GUARDED CODE STATUS: FULL CODE The high probability of a clinically significant, sudden or life-threatening deterioration of the [respiratory, cardiovascular, renal & neurologic] system(s) required my full and direct attention, intervention and personal management. The aggregate critical care time was [35] minutes without overlap. Time includes spent on; [x] Data Review and interpretation [x] Patient assessment and monitoring of vital signs [x] Documentation [x] Medication orders and management Subjective Date of service: 12/22/21 Principal diagnosis: Septic shock ; Bacteremia; ESRD on dialysis; AMS; NSTEMI; HTN; DM II Interval history: Patient is seen today for: Septic shock ; gm +ve Bacteremia; ESRD on dialysis; AMS; NSTEMI; Hypertension; DM II Seen and examined at bedside; 24hour events reviewed; nursing and respiratory care staff consulted; no adverse overnight events reported to me; resting peacefully in bed; on SBT and tolerating well; she is however now with increas ing amounts of maroon colored stool; no overt hemodynamic decompensation and denies chest or abdominal pain Objective Vital Signs - 12hr 12/22/21 12/22/21 12/22/21 01:00 02:00 03:00 Temperature Pulse Rate 84 85 79 Pulse Rate [ Anterior Bilateral Throughout] Pulse Rate [ From Monitor] Respiratory 4 L 0 L 21 Rate Respiratory Rate [Anterior Bilateral Throughout] Blood Pressure 98/41 119/53 133/67 O2 Sat by Pulse 98 96 Oximetry 12/22/21 12/22/21 12/22/21 04:00 04:05 05:00 Temperature 99.1 F Pulse Rate 81 80 83 Pulse Rate [ Anterior Bilateral Throughout] Pulse Rate [ 81 From Monitor] Respiratory 15 2 L 12 Rate Respiratory Rate [Anterior Bilateral Throughout] Blood Pressure 128/68 133/67 130/64 O2 Sat by Pulse 96 99 100 Oximetry 12/22/21 12/22/21 12/22/21 06:00 07:00 07:19 Temperature 98.7 F Pulse Rate 84 82 Pulse Rate [ Anterior Bilateral Throughout] Pulse Rate [ From Monitor] Respiratory 15 16 Rate Respiratory Rate [Anterior Bilateral Throughout] Blood Pressure 123/54 122/62 O2 Sat by Pulse 96 100 Oximetry 12/22/21 12/22/21 12/22/21 08:00 08:07 09:00 Temperature Pulse Rate 88 93 H 89 Pulse Rate [ 92 H Anterior Bilateral Throughout] Pulse Rate [ From Monitor] Respiratory 15 14 Rate Respiratory 18 Rate [Anterior Bilateral Throughout] Blood Pressure 125/76 125/76 123/81 O2 Sat by Pulse 100 100 100 Oximetry 12/22/21 12/22/21 12/22/21 10:00 11:00 11:19 Temperature 99.2 F Pulse Rate 83 88 Pulse Rate [ Anterior Bilateral Throughout] Pulse Rate [ From Monitor] Respiratory 13 20 Rate Respiratory Rate [Anterior Bilateral Throughout] Blood Pressure 110/61 136/79 O2 Sat by Pulse 90 89 Oximetry 12/22/21 11:32 Temperature Pulse Rate Pulse Rate [ Anterior Bilateral Throughout] Pulse Rate [ From Monitor] Respiratory 21 Rate Respiratory Rate [Anterior Bilateral Throughout] Blood Pressure 140/84 O2 Sat by Pulse 98 Oximetry Constitutional: no acute distress, other (elderly female with normal respiratory effort at rest) Eyes: non-icteric ENT: oropharynx moist, other (ETT 23 cm JUSTIN) Neck: supple, no JVD Effort: normal Ascultation: Bilateral: rhonchi (scant) Percussion: Bilateral: not dull Cardiovascular: regular rate and rhythm Gastrointestinal: normoactive bowel sounds, soft, non-tender, non-distended (protuberant) Integumentary: rash (right groin / ? scar), other (Left upper extremity AV graft; right forearm blisters (open and closed) and induration; no pus) Extremities: no cyanosis, pulses normal, no ischemia or petechiae, edema (right upper extremity) Neurologic: non-focal exam (grossly), pupils equal and round, unable to assess Psychiatric: other (flat affect) CBC and BMP: 12/23/21 04:39 12/23/21 04:39 ABG, PT/INR, D-dimer: ABG ABG pH 7.448 (7.320-7.450) 12/21/21 10:20 POC ABG pCO2 36.0 mmHg (32.0-48.0) 12/21/21 10:20 ABG pCO2 45.6 mm Hg 12/18/21 20:00 POC ABG pO2 126.1 mmHg (83-108) H 12/21/21 10:20 ABG pO2 62.5 mm Hg (80.0-90.0) L 12/18/21 20:00 POC ABG HCO3 24.3 12/21/21 10:20 ABG O2 Saturation 98.6 (0-100) 12/21/21 10:20 PT/INR, D-dimer PT 16.4 Sec. (12.2-14.9) H 12/21/21 08:35 INR 1.18 (0.87-1.13) H 12/21/21 08:35 Abnormal lab findings: Abnormal Labs 12/11/21 12/11/21 12/12/21 14:52 15:40 04:43 WBC RBC 3.57 L Hgb 9.4 L Hct 29.5 L MCH 26 L 27 L RDW 17.8 H 17.9 H Plt Count 119 L 110 L Lymph % (Auto) 4.0 L Lymph # (Auto) 0.3 L Seg Neutrophils % 90.0 H Seg Neuts % (Manual) Lymphocytes % (Manual) Monocytes % (Manual) Nucleated RBC % Seg Neutrophils # Seg Neutrophils # Man Lymphocytes # (Manual) Percent Retic PT INR Fibrinogen ABG pH POC ABG pO2 ABG pO2 ABG HCO3 ABG O2 Saturation ABG Base Excess ABG Hemoglobin VBG pO2 Oxyhemoglobin Sodium Potassium Chloride Carbon Dioxide 18 L BUN 76 H Creatinine 9.2 H Glucose POC Glucose Lactic Acid Calcium 7.7 L Phosphorus Magnesium Iron TIBC Ferritin Alkaline Phosphatase 237 H Lactate Dehydrogenase Troponin T 0.168 H* C-Reactive Protein Albumin 3.6 L LDL Cholesterol Direct 16 L 12/12/21 12/12/21 12/12/21 04:43 04:43 08:49 WBC RBC Hgb Hct MCH RDW Plt Count Lymph % (Auto) Lymph # (Auto) Seg Neutrophils % Seg Neuts % (Manual) Lymphocytes % (Manual) Monocytes % (Manual) Nucleated RBC % Seg Neutrophils # Seg Neutrophils # Man Lymphocytes # (Manual) Percent Retic PT INR Fibrinogen ABG pH POC ABG pO2 ABG pO2 ABG HCO3 ABG O2 Saturation ABG Base Excess ABG Hemoglobin VBG pO2 Oxyhemoglobin Sodium 136 L Potassium Chloride 96.0 L Carbon Dioxide BUN 85 H Creatinine 9.6 H Glucose 57 L POC Glucose 47 L Lactic Acid Calcium 7.8 L Phosphorus Magnesium Iron TIBC Ferritin Alkaline Phosphatase Lactate Dehydrogenase Troponin T 0.175 H* C-Reactive Protein Albumin LDL Cholesterol Direct 12/12/21 12/13/21 12/13/21 11:12 07:30 07:30 WBC RBC Hgb 9.7 L Hct 30.0 L MCH 27 L RDW 18.0 H Plt Count 99 L Lymph % (Auto) 4.8 L Lymph # (Auto) 0.3 L Seg Neutrophils % 88.2 H Seg Neuts % (Manual) Lymphocytes % (Manual) Monocytes % (Manual) Nucleated RBC % Seg Neutrophils # Seg Neutrophils # Man Lymphocytes # (Manual) Percent Retic PT INR Fibrinogen ABG pH POC ABG pO2 ABG pO2 ABG HCO3 ABG O2 Saturation ABG Base Excess ABG Hemoglobin VBG pO2 Oxyhemoglobin Sodium Potassium 5.1 H Chloride 97.8 L Carbon Dioxide 16 L BUN 92 H Creatinine 10.6 H Glucose 121 H POC Glucose 64 L Lactic Acid Calcium 7.6 L Phosphorus Magnesium Iron TIBC Ferritin Alkaline Phosphatase Lactate Dehydrogenase Troponin T C-Reactive Protein Albumin LDL Cholesterol Direct 12/13/21 12/13/21 12/13/21 08:06 11:32 16:59 WBC RBC Hgb Hct MCH RDW Plt Count Lymph % (Auto) Lymph # (Auto) Seg Neutrophils % Seg Neuts % (Manual) Lymphocytes % (Manual) Monocytes % (Manual) Nucleated RBC % Seg Neutrophils # Seg Neutrophils # Man Lymphocytes # (Manual) Percent Retic PT INR Fibrinogen ABG pH POC ABG pO2 ABG pO2 ABG HCO3 ABG O2 Saturation ABG Base Excess ABG Hemoglobin VBG pO2 Oxyhemoglobin Sodium Potassium Chloride Carbon Dioxide BUN Creatinine Glucose POC Glucose 118 H 128 H 130 H Lactic Acid Calcium Phosphorus Magnesium Iron TIBC Ferritin Alkaline Phosphatase Lactate Dehydrogenase Troponin T C-Reactive Protein Albumin LDL Cholesterol Direct 12/13/21 12/14/21 12/14/21 20:16 11:10 11:10 WBC RBC Hgb 9.9 L Hct MCH 27 L RDW 18.1 H Plt Count 82 L Lymph % (Auto) 5.8 L Lymph # (Auto) 0.4 L Seg Neutrophils % 88.3 H Seg Neuts % (Manual) Lymphocytes % (Manual) Monocytes % (Manual) Nucleated RBC % Seg Neutrophils # Seg Neutrophils # Man Lymphocytes # (Manual) Percent Retic PT INR Fibrinogen ABG pH POC ABG pO2 ABG pO2 ABG HCO3 ABG O2 Saturation ABG Base Excess ABG Hemoglobin VBG pO2 Oxyhemoglobin Sodium Potassium Chloride Carbon Dioxide 21 L BUN 57 H Creatinine 7.1 H Glucose 105 H POC Glucose 113 H Lactic Acid Calcium Phosphorus Magnesium Iron TIBC Ferritin Alkaline Phosphatase Lactate Dehydrogenase Troponin T C-Reactive Protein Albumin LDL Cholesterol Direct 12/14/21 12/14/21 12/15/21 11:46 16:41 04:11 WBC RBC Hgb 9.9 L Hct 30.0 L MCH 27 L RDW 18.4 H Plt Count 57 L Lymph % (Auto) Lymph # (Auto) Seg Neutrophils % Seg Neuts % (Manual) Lymphocytes % (Manual) 9.0 L Monocytes % (Manual) 10.0 H Nucleated RBC % Seg Neutrophils # Seg Neutrophils # Man Lymphocytes # (Manual) 0.6 L Percent Retic PT INR Fibrinogen ABG pH POC ABG pO2 ABG pO2 ABG HCO3 ABG O2 Saturation ABG Base Excess ABG Hemoglobin VBG pO2 Oxyhemoglobin Sodium Potassium Chloride Carbon Dioxide BUN Creatinine Glucose POC Glucose 108 H 111 H Lactic Acid Calcium Phosphorus Magnesium Iron TIBC Ferritin Alkaline Phosphatase Lactate Dehydrogenase Troponin T C-Reactive Protein Albumin LDL Cholesterol Direct 12/15/21 12/15/21 12/15/21 04:11 08:48 10:02 WBC RBC Hgb Hct MCH RDW Plt Count Lymph % (Auto) Lymph # (Auto) Seg Neutrophils % Seg Neuts % (Manual) Lymphocytes % (Manual) Monocytes % (Manual) Nucleated RBC % Seg Neutrophils # Seg Neutrophils # Man Lymphocytes # (Manual) Percent Retic PT INR Fibrinogen ABG pH POC ABG pO2 ABG pO2 ABG HCO3 ABG O2 Saturation ABG Base Excess ABG Hemoglobin VBG pO2 Oxyhemoglobin Sodium Potassium Chloride Carbon Dioxide 19 L BUN 68 H Creatinine 7.6 H Glucose POC Glucose 68 L 65 L Lactic Acid Calcium 8.1 L Phosphorus Magnesium Iron TIBC Ferritin Alkaline Phosphatase Lactate Dehydrogenase Troponin T C-Reactive Protein Albumin LDL Cholesterol Direct 12/15/21 12/15/21 12/15/21 10:20 10:51 14:40 WBC RBC Hgb Hct MCH RDW Plt Count Lymph % (Auto) Lymph # (Auto) Seg Neutrophils % Seg Neuts % (Manual) Lymphocytes % (Manual) Monocytes % (Manual) Nucleated RBC % Seg Neutrophils # Seg Neutrophils # Man Lymphocytes # (Manual) Percent Retic PT INR Fibrinogen ABG pH POC ABG pO2 ABG pO2 ABG HCO3 ABG O2 Saturation ABG Base Excess ABG Hemoglobin VBG pO2 Oxyhemoglobin Sodium Potassium Chloride Carbon Dioxide BUN Creatinine Glucose POC Glucose 59 L 60 L Lactic Acid 2.50 H* Calcium Phosphorus Magnesium Iron TIBC Ferritin Alkaline Phosphatase Lactate Dehydrogenase Troponin T C-Reactive Protein Albumin LDL Cholesterol Direct 12/15/21 12/15/21 12/16/21 14:40 19:50 05:00 WBC 12.4 H RBC Hgb 9.6 L Hct 29.4 L MCH 26 L RDW 18.1 H Plt Count 40 L Lymph % (Auto) Lymph # (Auto) Seg Neutrophils % Seg Neuts % (Manual) 95.0 H Lymphocytes % (Manual) 5.0 L Monocytes % (Manual) Nucleated RBC % Seg Neutrophils # Seg Neutrophils # Man 11.8 H Lymphocytes # (Manual) 0.6 L Percent Retic PT INR Fibrinogen ABG pH POC ABG pO2 ABG pO2 463.3 H ABG HCO3 ABG O2 Saturation 99.6 H ABG Base Excess ABG Hemoglobin 10.9 L VBG pO2 > 258.0 H Oxyhemoglobin Sodium Potassium Chloride Carbon Dioxide BUN Creatinine Glucose POC Glucose Lactic Acid Calcium Phosphorus Magnesium Iron TIBC Ferritin Alkaline Phosphatase Lactate Dehydrogenase Troponin T C-Reactive Protein 38.50 H Albumin LDL Cholesterol Direct 12/16/21 12/16/21 12/16/21 05:00 06:15 09:58 WBC RBC Hgb Hct MCH RDW Plt Count Lymph % (Auto) Lymph # (Auto) Seg Neutrophils % Seg Neuts % (Manual) Lymphocytes % (Manual) Monocytes % (Manual) Nucleated RBC % Seg Neutrophils # Seg Neutrophils # Man Lymphocytes # (Manual) Percent Retic PT INR Fibrinogen ABG pH POC ABG pO2 ABG pO2 48.0 L ABG HCO3 ABG O2 Saturation 80.5 L ABG Base Excess -2.9 L ABG Hemoglobin 11.2 L VBG pO2 Oxyhemoglobin 78.8 L Sodium Potassium Chloride Carbon Dioxide BUN 75 H Creatinine 7.7 H Glucose POC Glucose 67 L Lactic Acid Calcium 8.3 L Phosphorus Magnesium Iron TIBC Ferritin Alkaline Phosphatase Lactate Dehydrogenase Troponin T C-Reactive Protein Albumin LDL Cholesterol Direct 12/16/21 12/16/21 12/17/21 11:06 23:24 04:00 WBC 12.3 H RBC 3.32 L Hgb 8.8 L Hct 26.5 L MCH 26 L RDW 18.0 H Plt Count 27 L Lymph % (Auto) 5.9 L Lymph # (Auto) 0.7 L Seg Neutrophils % 88.3 H Seg Neuts % (Manual) Lymphocytes % (Manual) Monocytes % (Manual) Nucleated RBC % Seg Neutrophils # 10.9 H Seg Neutrophils # Man Lymphocytes # (Manual) Percent Retic PT INR Fibrinogen ABG pH POC ABG pO2 ABG pO2 137.7 H ABG HCO3 ABG O2 Saturation ABG Base Excess ABG Hemoglobin 9.9 L VBG pO2 Oxyhemoglobin Sodium Potassium Chloride Carbon Dioxide BUN Creatinine Glucose POC Glucose 110 H Lactic Acid Calcium Phosphorus Magnesium Iron TIBC Ferritin Alkaline Phosphatase Lactate Dehydrogenase Troponin T C-Reactive Protein Albumin LDL Cholesterol Direct 12/17/21 12/17/21 12/17/21 04:30 04:30 11:18 WBC RBC Hgb Hct MCH RDW Plt Count Lymph % (Auto) Lymph # (Auto) Seg Neutrophils % Seg Neuts % (Manual) Lymphocytes % (Manual) Monocytes % (Manual) Nucleated RBC % Seg Neutrophils # Seg Neutrophils # Man Lymphocytes # (Manual) Percent Retic PT INR Fibrinogen ABG pH POC ABG pO2 ABG pO2 ABG HCO3 ABG O2 Saturation ABG Base Excess ABG Hemoglobin VBG pO2 Oxyhemoglobin Sodium Potassium Chloride Carbon Dioxide BUN 43 H Creatinine 5.0 H Glucose 129 H POC Glucose 149 H Lactic Acid Calcium 7.8 L Phosphorus 1.90 L Magnesium 1.60 L Iron TIBC Ferritin Alkaline Phosphatase Lactate Dehydrogenase Troponin T C-Reactive Protein Albumin LDL Cholesterol Direct 12/17/21 12/17/21 12/17/21 14:35 16:58 18:32 WBC RBC Hgb Hct MCH RDW Plt Count Lymph % (Auto) Lymph # (Auto) Seg Neutrophils % Seg Neuts % (Manual) Lymphocytes % (Manual) Monocytes % (Manual) Nucleated RBC % Seg Neutrophils # Seg Neutrophils # Man Lymphocytes # (Manual) Percent Retic PT 17.4 H INR 1.27 H Fibrinogen 486 H ABG pH 7.316 L POC ABG pO2 ABG pO2 74.0 L ABG HCO3 ABG O2 Saturation 93.7 L ABG Base Excess -3.3 L ABG Hemoglobin 8.8 L VBG pO2 Oxyhemoglobin 91.7 L Sodium Potassium Chloride Carbon Dioxide BUN Creatinine Glucose POC Glucose 219 H Lactic Acid Calcium Phosphorus Magnesium Iron TIBC Ferritin Alkaline Phosphatase Lactate Dehydrogenase Troponin T C-Reactive Protein Albumin LDL Cholesterol Direct 12/17/21 12/18/21 12/18/21 23:19 05:00 05:00 WBC 15.3 H RBC 3.25 L Hgb 8.4 L Hct 25.7 L MCH 26 L RDW 18.2 H Plt Count 28 L Lymph % (Auto) Lymph # (Auto) Seg Neutrophils % Seg Neuts % (Manual) 99.0 H Lymphocytes % (Manual) 1.0 L Monocytes % (Manual) Nucleated RBC % 1.0 H Seg Neutrophils # Seg Neutrophils # Man 15.1 H Lymphocytes # (Manual) 0.2 L Percent Retic 0.37 L PT INR Fibrinogen ABG pH POC ABG pO2 ABG pO2 ABG HCO3 ABG O2 Saturation ABG Base Excess ABG Hemoglobin VBG pO2 Oxyhemoglobin Sodium 135 L Potassium Chloride Carbon Dioxide 20 L BUN 53 H Creatinine 5.2 H Glucose 307 H POC Glucose 313 H Lactic Acid Calcium 8.0 L Phosphorus Magnesium Iron 13 L TIBC 109 L Ferritin Alkaline Phosphatase Lactate Dehydrogenase Troponin T C-Reactive Protein Albumin LDL Cholesterol Direct 12/18/21 12/18/21 12/18/21 05:00 05:00 09:00 WBC RBC Hgb Hct MCH RDW Plt Count Lymph % (Auto) Lymph # (Auto) Seg Neutrophils % Seg Neuts % (Manual) Lymphocytes % (Manual) Monocytes % (Manual) Nucleated RBC % Seg Neutrophils # Seg Neutrophils # Man Lymphocytes # (Manual) Percent Retic PT INR Fibrinogen 481 H ABG pH POC ABG pO2 ABG pO2 50.2 L ABG HCO3 ABG O2 Saturation 81.7 L ABG Base Excess -3.6 L ABG Hemoglobin 8.0 L VBG pO2 Oxyhemoglobin 80.0 L Sodium Potassium Chloride Carbon Dioxide BUN Creatinine Glucose POC Glucose Lactic Acid Calcium Phosphorus Magnesium Iron TIBC Ferritin 383.4 H Alkaline Phosphatase Lactate Dehydrogenase Troponin T C-Reactive Protein Albumin LDL Cholesterol Direct 12/18/21 12/18/21 12/18/21 10:56 11:10 12:00 WBC RBC Hgb Hct MCH RDW Plt Count Lymph % (Auto) Lymph # (Auto) Seg Neutrophils % Seg Neuts % (Manual) Lymphocytes % (Manual) Monocytes % (Manual) Nucleated RBC % Seg Neutrophils # Seg Neutrophils # Man Lymphocytes # (Manual) Percent Retic PT INR Fibrinogen ABG pH POC ABG pO2 ABG pO2 92.7 H ABG HCO3 19.8 L ABG O2 Saturation ABG Base Excess -3.8 L ABG Hemoglobin 6.6 L VBG pO2 Oxyhemoglobin Sodium Potassium Chloride Carbon Dioxide BUN Creatinine Glucose POC Glucose 190 H Lactic Acid Calcium Phosphorus 2.40 L D Magnesium Iron TIBC Ferritin Alkaline Phosphatase Lactate Dehydrogenase Troponin T C-Reactive Protein Albumin LDL Cholesterol Direct 12/18/21 12/18/21 12/18/21 18:06 20:00 23:05 WBC 19.2 H RBC 3.51 L Hgb 8.8 L Hct 27.8 L MCH 25 L RDW 18.1 H Plt Count 34 L Lymph % (Auto) Lymph # (Auto) Seg Neutrophils % Seg Neuts % (Manual) Lymphocytes % (Manual) Monocytes % (Manual) Nucleated RBC % Seg Neutrophils # Seg Neutrophils # Man Lymphocytes # (Manual) Percent Retic PT INR Fibrinogen ABG pH POC ABG pO2 ABG pO2 62.5 L ABG HCO3 26.6 H ABG O2 Saturation 91.7 L ABG Base Excess ABG Hemoglobin 8.4 L VBG pO2 Oxyhemoglobin 89.9 L Sodium Potassium Chloride Carbon Dioxide BUN Creatinine Glucose POC Glucose 156 H Lactic Acid Calcium Phosphorus Magnesium Iron TIBC Ferritin Alkaline Phosphatase Lactate Dehydrogenase Troponin T C-Reactive Protein Albumin LDL Cholesterol Direct 12/18/21 12/19/21 12/19/21 23:54 05:00 05:00 WBC 18.9 H RBC 3.29 L Hgb 8.4 L Hct 26.0 L MCH 26 L RDW 18.2 H Plt Count 34 L Lymph % (Auto) Lymph # (Auto) Seg Neutrophils % Seg Neuts % (Manual) 93.0 H Lymphocytes % (Manual) 2.0 L Monocytes % (Manual) Nucleated RBC % Seg Neutrophils # Seg Neutrophils # Man 17.6 H Lymphocytes # (Manual) 0.4 L Percent Retic PT INR Fibrinogen ABG pH POC ABG pO2 ABG pO2 ABG HCO3 ABG O2 Saturation ABG Base Excess ABG Hemoglobin VBG pO2 Oxyhemoglobin Sodium Potassium Chloride Carbon Dioxide BUN 30 H Creatinine 3.1 H Glucose 155 H POC Glucose 122 H Lactic Acid Calcium 8.2 L Phosphorus Magnesium Iron TIBC Ferritin Alkaline Phosphatase Lactate Dehydrogenase Troponin T C-Reactive Protein Albumin LDL Cholesterol Direct 12/19/21 12/19/21 12/19/21 05:29 11:41 17:48 WBC RBC Hgb Hct MCH RDW Plt Count Lymph % (Auto) Lymph # (Auto) Seg Neutrophils % Seg Neuts % (Manual) Lymphocytes % (Manual) Monocytes % (Manual) Nucleated RBC % Seg Neutrophils # Seg Neutrophils # Man Lymphocytes # (Manual) Percent Retic PT INR Fibrinogen ABG pH POC ABG pO2 ABG pO2 ABG HCO3 ABG O2 Saturation ABG Base Excess ABG Hemoglobin VBG pO2 Oxyhemoglobin Sodium Potassium Chloride Carbon Dioxide BUN Creatinine Glucose POC Glucose 153 H 164 H 113 H Lactic Acid Calcium Phosphorus Magnesium Iron TIBC Ferritin Alkaline Phosphatase Lactate Dehydrogenase Troponin T C-Reactive Protein Albumin LDL Cholesterol Direct 12/19/21 12/20/21 12/20/21 23:53 04:45 04:45 WBC 15.0 H RBC 3.39 L Hgb 8.4 L Hct 26.8 L MCH 25 L RDW 17.8 H Plt Count 36 L Lymph % (Auto) Lymph # (Auto) Seg Neutrophils % Seg Neuts % (Manual) Lymphocytes % (Manual) Monocytes % (Manual) Nucleated RBC % Seg Neutrophils # Seg Neutrophils # Man Lymphocytes # (Manual) Percent Retic PT INR Fibrinogen ABG pH POC ABG pO2 ABG pO2 ABG HCO3 ABG O2 Saturation ABG Base Excess ABG Hemoglobin VBG pO2 Oxyhemoglobin Sodium 135 L Potassium Chloride 96.1 L Carbon Dioxide BUN 48 H Creatinine 3.9 H Glucose 188 H POC Glucose 157 H Lactic Acid Calcium 8.1 L Phosphorus Magnesium Iron TIBC Ferritin Alkaline Phosphatase Lactate Dehydrogenase Troponin T C-Reactive Protein Albumin LDL Cholesterol Direct 12/20/21 12/20/21 12/20/21 05:07 11:13 16:35 WBC RBC Hgb Hct MCH RDW Plt Count Lymph % (Auto) Lymph # (Auto) Seg Neutrophils % Seg Neuts % (Manual) Lymphocytes % (Manual) Monocytes % (Manual) Nucleated RBC % Seg Neutrophils # Seg Neutrophils # Man Lymphocytes # (Manual) Percent Retic PT INR Fibrinogen ABG pH POC ABG pO2 ABG pO2 ABG HCO3 ABG O2 Saturation ABG Base Excess ABG Hemoglobin VBG pO2 Oxyhemoglobin Sodium Potassium Chloride Carbon Dioxide BUN Creatinine Glucose POC Glucose 169 H 198 H 198 H Lactic Acid Calcium Phosphorus Magnesium Iron TIBC Ferritin Alkaline Phosphatase Lactate Dehydrogenase Troponin T C-Reactive Protein Albumin LDL Cholesterol Direct 12/20/21 12/21/21 12/21/21 23:50 05:58 08:00 WBC 16.7 H RBC Hgb 9.3 L Hct 29.2 L MCH 25 L RDW 18.5 H Plt Count 62 L Lymph % (Auto) Lymph # (Auto) Seg Neutrophils % Seg Neuts % (Manual) Lymphocytes % (Manual) Monocytes % (Manual) Nucleated RBC % Seg Neutrophils # Seg Neutrophils # Man Lymphocytes # (Manual) Percent Retic PT INR Fibrinogen ABG pH POC ABG pO2 ABG pO2 ABG HCO3 ABG O2 Saturation ABG Base Excess ABG Hemoglobin VBG pO2 Oxyhemoglobin Sodium Potassium Chloride Carbon Dioxide BUN Creatinine Glucose POC Glucose 176 H 185 H Lactic Acid Calcium Phosphorus Magnesium Iron TIBC Ferritin Alkaline Phosphatase Lactate Dehydrogenase Troponin T C-Reactive Protein Albumin LDL Cholesterol Direct 12/21/21 12/21/21 12/21/21 08:35 08:35 10:20 WBC RBC Hgb Hct MCH RDW Plt Count Lymph % (Auto) Lymph # (Auto) Seg Neutrophils % Seg Neuts % (Manual) Lymphocytes % (Manual) Monocytes % (Manual) Nucleated RBC % Seg Neutrophils # Seg Neutrophils # Man Lymphocytes # (Manual) Percent Retic PT 16.4 H INR 1.18 H Fibrinogen ABG pH POC ABG pO2 126.1 H ABG pO2 ABG HCO3 ABG O2 Saturation ABG Base Excess ABG Hemoglobin 11.1 L VBG pO2 Oxyhemoglobin Sodium Potassium 3.5 L Chloride Carbon Dioxide BUN 36 H Creatinine 2.7 H Glucose 174 H POC Glucose Lactic Acid Calcium 8.3 L Phosphorus Magnesium Iron TIBC Ferritin Alkaline Phosphatase Lactate Dehydrogenase 249 H Troponin T C-Reactive Protein Albumin LDL Cholesterol Direct 12/21/21 12/21/21 12/21/21 11:18 17:14 18:00 WBC 20.2 H RBC Hgb 9.9 L Hct MCH 25 L RDW 18.0 H Plt Count 60 L Lymph % (Auto) Lymph # (Auto) Seg Neutrophils % Seg Neuts % (Manual) Lymphocytes % (Manual) Monocytes % (Manual) Nucleated RBC % Seg Neutrophils # Seg Neutrophils # Man Lymphocytes # (Manual) Percent Retic PT INR Fibrinogen ABG pH POC ABG pO2 ABG pO2 ABG HCO3 ABG O2 Saturation ABG Base Excess ABG Hemoglobin VBG pO2 Oxyhemoglobin Sodium Potassium Chloride Carbon Dioxide BUN Creatinine Glucose POC Glucose 181 H 222 H Lactic Acid Calcium Phosphorus Magnesium Iron TIBC Ferritin Alkaline Phosphatase Lactate Dehydrogenase Troponin T C-Reactive Protein Albumin LDL Cholesterol Direct 12/21/21 12/21/21 12/22/21 19:26 23:28 04:14 WBC 23.9 H RBC Hgb Hct MCH 25 L RDW 17.8 H Plt Count 68 L Lymph % (Auto) Lymph # (Auto) Seg Neutrophils % Seg Neuts % (Manual) Lymphocytes % (Manual) Monocytes % (Manual) Nucleated RBC % Seg Neutrophils # Seg Neutrophils # Man Lymphocytes # (Manual) Percent Retic PT INR Fibrinogen ABG pH POC ABG pO2 ABG pO2 ABG HCO3 ABG O2 Saturation ABG Base Excess ABG Hemoglobin VBG pO2 Oxyhemoglobin Sodium Potassium Chloride Carbon Dioxide BUN Creatinine Glucose POC Glucose 214 H 260 H Lactic Acid Calcium Phosphorus Magnesium Iron TIBC Ferritin Alkaline Phosphatase Lactate Dehydrogenase Troponin T C-Reactive Protein Albumin LDL Cholesterol Direct 12/22/21 12/22/21 04:14 05:28 WBC RBC Hgb Hct MCH RDW Plt Count Lymph % (Auto) Lymph # (Auto) Seg Neutrophils % Seg Neuts % (Manual) Lymphocytes % (Manual) Monocytes % (Manual) Nucleated RBC % Seg Neutrophils # Seg Neutrophils # Man Lymphocytes # (Manual) Percent Retic PT INR Fibrinogen ABG pH POC ABG pO2 ABG pO2 ABG HCO3 ABG O2 Saturation ABG Base Excess ABG Hemoglobin VBG pO2 Oxyhemoglobin Sodium 136 L Potassium 3.0 L Chloride Carbon Dioxide BUN 52 H Creatinine 3.5 H Glucose 202 H POC Glucose 223 H Lactic Acid Calcium 8.1 L Phosphorus Magnesium Iron TIBC Ferritin Alkaline Phosphatase Lactate Dehydrogenase Troponin T C-Reactive Protein Albumin LDL Cholesterol Direct Chest x-ray: other (none today) Allied health notes reviewed: nursing
--- NOTE | 2021-12-22 13:13 | Hem/Onc Progress Note ---
Subjective Date of service: 12/22/21 Interval history: Heme progress note Televisit via [facility] CPT 43715 Dx Thrombocytopenia 66yo female s/p fall which occurred 2 days prior to arrival. 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 found to have elevated troponin, elevated BUN/creatinine at 9.2/76, CXR showed pulmonary edema CT head/C-spine/pelvis showed no acute fracture or dislocation and x-ray L- spine/right tib-fib/fib/right femur/right hip and pelvis showed no acute fracture or dislocation. Patient decompensated 12/15, requiring intubation. Sepsis secondary to beta- hemolytic strep group B. Platelets noted decreasing. Hematology following for thrombocytopenia. Patient intubated and sedated. Reports of rectal bleeding starting yesterday 12/21/21. 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 (12.2-14.9) H 12/21/21 08:35 INR 1.18 (0.87-1.13) H 12/21/21 08:35 Fibrinogen 351 mg/dl (211-480) 12/21/21 08:35 Heparin Anti-Xa, Unfract Negative (Negative) 12/17/21 09:30 Creatinine 3.5 mg/dL (0.6-1.2) H 12/22/21 04:14 Iron 13 ug/dL (37-170) L 12/18/21 05:00 TIBC 109 mcg/dL (250-450) L 12/18/21 05:00 Ferritin 383.4 ng/mL (10.0-200.0) H 12/18/21 05:00 Total Bilirubin 0.60 mg/dL (0.1-1.2) 12/11/21 15:40 AST 22 units/L (5-40) 12/11/21 15:40 ALT 13 units/L (7-56) 12/11/21 15:40 Alkaline Phosphatase 237 units/L (35-129) H 12/11/21 15:40 Lactate Dehydrogenase 249 units/L (91-180) H 12/21/21 08:35 Heparin-induced Plt Ab Negative (Negative) 12/17/21 09:30 UF Heparin High Dose 1 % Release 12/17/21 09:30 JAMILAH UFH Low Dose 0.1 0 % Release 12/17/21 09:30 JAMILAH UFH Low Dose 0.5 0 % Release 12/17/21 09:30 Blood Type O POSITIVE 12/17/21 09:30 Antibody Screen Negative 12/17/21 09:30 Objective - Constitutional Vitals: Last Vital Signs Temp 99.2 F 12/22/21 11:19 Pulse 88 12/22/21 11:00 Resp 21 12/22/21 11:32 BP 140/84 12/22/21 11:32 Pulse Ox 98 12/22/21 11:32 - Labs Lab Results: Laboratory Results - last 24 hr 12/17/21 12/18/21 12/21/21 09:30 05:00 17:14 WBC RBC Hgb Hct MCV MCH MCHC RDW Plt Count Haptoglobin 193 Heparin Anti-Xa, Unfract Negative Sodium Potassium Chloride Carbon Dioxide Anion Gap BUN Creatinine Estimated GFR BUN/Creatinine Ratio Glucose POC Glucose 222 H Calcium Heparin-induced Plt Ab Negative UF Heparin High Dose 1 JAMILAH UFH Low Dose 0.1 0 JAMILAH UFH Low Dose 0.5 0 12/21/21 12/21/21 12/21/21 18:00 19:26 23:28 WBC 20.2 H RBC 4.01 Hgb 9.9 L Hct 31.8 MCV 79 MCH 25 L MCHC 31 RDW 18.0 H Plt Count 60 L Haptoglobin Heparin Anti-Xa, Unfract Sodium Potassium Chloride Carbon Dioxide Anion Gap BUN Creatinine Estimated GFR BUN/Creatinine Ratio Glucose POC Glucose 214 H 260 H Calcium Heparin-induced Plt Ab UF Heparin High Dose JAMILAH UFH Low Dose 0.1 JAMILAH UFH Low Dose 0.5 12/22/21 12/22/21 12/22/21 04:14 04:14 05:28 WBC 23.9 H RBC 4.28 Hgb 10.6 Hct 33.9 MCV 79 MCH 25 L MCHC 31 RDW 17.8 H Plt Count 68 L Haptoglobin Heparin Anti-Xa, Unfract Sodium 136 L Potassium 3.0 L Chloride 98.5 Carbon Dioxide 23 Anion Gap 18 BUN 52 H Creatinine 3.5 H Estimated GFR 16 BUN/Creatinine Ratio 15 Glucose 202 H POC Glucose 223 H Calcium 8.1 L Heparin-induced Plt Ab UF Heparin High Dose JAMILAH UFH Low Dose 0.1 JAMILAH UFH Low Dose 0.5 Medications & Allergies - Medications Allergies/Adverse Reactions: Allergies No Known Allergies Allergy (Verified 12/11/21 22:19) Home Medications: Home Medications Medication Instructions Recorded Confirmed Last Taken Type Albuterol Sulfate [Proair 2 puff IH Q6HR PRN 11/23/21 12/14/21 Unknown History Digihaler] Calcium Acetate 2 tab PO TID 11/23/21 12/14/21 Unknown History Fluticasone/Umeclidin/Vilanter 1 each IH DAILY 11/23/21 12/14/21 Unknown History [Trelegy Ellipta 100-62.5-25] Furosemide [Lasix TAB] 40 mg PO QDAY 11/23/21 12/14/21 Unknown History Insulin Aspart (Nf) [NovoLOG 55 unit SQ TID 11/23/21 12/14/21 Unknown History Flexpen] Insulin Glargine [Lantus VIAL] 25 units SQ QHS 11/23/21 12/14/21 Unknown History Omeprazole 20 mg PO DAILY 11/23/21 12/14/21 Unknown History Spironolactone [Aldactone] 100 mg PO QDAY 11/23/21 12/14/21 Unknown History lisinopriL [Lisinopril] 20 mg PO BID 11/23/21 12/14/21 12/06/21 History 500 MG Docusate Sodium [Colace CAP] 100 mg PO BID PRN #60 capsule 11/24/21 12/14/21 Unknown Rx Aspirin EC [Halfprin EC] 81 mg PO DAILY 90 Days #90 tablet 11/26/21 12/14/21 Unknown Rx Aspirin [Adult Aspirin] 81 mg PO DAILY 90 Days #90 tab 11/26/21 12/14/21 Unknown Rx ISOSORBIDE MONOnitrate [Imdur ER] 60 mg PO QDAY 90 Days #90 tab 11/26/21 12/14/21 Unknown Rx Sevelamer Carbonate [Renvela] 800 mg PO TIDWM 90 Days #270 tab 11/26/21 12/14/21 Unknown Rx amLODIPine 10 mg PO DAILY 90 Days #90 tab 11/26/21 12/14/21 Unknown Rx carvediloL [Coreg] 25 mg PO BID 90 Days #180 tab 11/26/21 12/14/21 Unknown Rx Atorvastatin Calcium [Lipitor] 80 mg PO QHS 90 Days #90 tab 11/27/21 12/14/21 Unknown Rx levETIRAcetam [Keppra TAB] 500 mg PO 3XW 12/14/21 12/14/21 12/06/21 History 500 MG Active Medications: Generic Name Dose Route Start Last Admin Trade Name Freq PRN Reason Stop Dose Admin Acetaminophen 650 mg 12/13/21 23:00 12/13/21 23:18 Acetaminophen 650 Mg Rect Supp AR 650 mg Q4H PRN Administration Pain, Mild (1-3) Albuterol 2.5 mg 12/11/21 22:14 Albuterol 2.5 Mg/3 Ml Nebu IH Q6HR PRN Wheezing Albuterol/Ipratropium 1 ampul 12/14/21 08:00 12/22/21 08:07 Ipratropium/Albuterol Sulfate 3 Ml Ampul.Neb IH 1 ampul TIDRT KRISTA Administration Lipase/Protease/Amylase 1 each 12/16/21 11:15 Lipase 10,500/Protease 25,000/Amylase 43,750 (Units) Dr Blanco FEEDTUBE PRN PRN For Clogged Feeding Tube Aspirin 81 mg 12/15/21 10:00 12/22/21 09:16 Aspirin 81 Mg Tab Chew FEEDTUBE 81 mg QDAY KRISTA Administration Atorvastatin Calcium 80 mg 12/15/21 22:00 12/21/21 21:21 Atorvastatin 40 Mg Tab FEEDTUBE 80 mg QHS KRISTA Administration Budesonide 0.5 mg 12/13/21 08:00 12/22/21 08:07 Budesonide 0.5 Mg/2 Ml Nebu IH 0.5 mg Q12HRT KRISTA Administration Dextrose 50 ml 12/11/21 22:23 12/16/21 06:24 Dextrose 50% In Water (25gm) 50 Ml Syringe IV 15 ml Q30MIN PRN Administration Hypoglycemia Protocol Famotidine 10 mg 12/22/21 22:00 Famotidine 10 Mg Tab FEEDTUBE BID KRISTA Fentanyl 50 mcg 12/15/21 17:19 12/22/21 09:17 Fentanyl 100 Mcg/2 Ml Inj IV 50 mcg Q10MIN PRN Administration ANALGESIA Hydrophilic Ointment 1 applic 12/16/21 14:30 Lip Therapy Vaseline TP Q2HR PRN Dry Lips Sodium Chloride 100 mls @ 999 mls/hr 12/12/21 12:00 Nacl 0.9% IV ABEL PRN Hypotension NORepinephrine/NS 8 MG-250 ML 8 mg in 250 mls @ 3.75 mls/hr 12/14/21 23:00 12/18/21 19:02 Norepinephrine/Ns 8 Mg-250 Ml (Double Conc) IV 0 mcg/min TITRATE KRISTA 0 mls/hr Titration Protocol 2 MCG/MIN Fentanyl Citrate 2,000 mcg in 100 mls @ 2.945 mls/hr 12/15/21 18:00 12/19/21 18:28 Fentanyl Drip Premix IV 0 mcg/kg/hr TITR KRISTA 0 mls/hr Titration Protocol 1 MCG/KG/HR Ceftriaxone Sodium 2 gm in 100 mls @ 200 mls/hr 12/16/21 15:00 12/21/21 15:27 Rocephin/Ns 2 Gm/100 Ml IV 12/29/21 15:29 200 mls/hr Q24H KRISTA Administration Protocol Insulin Glargine 5 units 12/21/21 22:00 12/21/21 21:21 Insulin Glargine 100 Units/Ml SUB-Q 5 units QHS KRISTA Administration Insulin Human Lispro 0 unit 12/15/21 12:00 12/22/21 12:46 Insulin Lispro 100 Unit/Ml SUB-Q 3 unit Q6HR KRISTA Administration Protocol Levetiracetam 500 mg 12/16/21 18:00 12/20/21 17:50 Levetiracetam 500 Mg/5 Ml Oral Liqd FEEDTUBE 500 mg TuThSa KRISTA Administration Metoclopramide HCl 2.5 mg 12/21/21 10:00 12/22/21 09:17 Metoclopramide 10 Mg/2 Ml Inj IV 2.5 mg Q6H KRISTA Administration Midodrine 10 mg 12/15/21 12:00 12/22/21 12:46 Midodrine 10 Mg Tab FEEDTUBE 10 mg TID@0800,1200,1600 KRISTA Administration Morphine Sulfate 2 mg 12/11/21 22:11 Morphine 4 Mg/1 Ml Inj IV Q5MIN PRN Chest Pain unrelieved by NTG Multi-Ingred Cream/Lotion/Oil/Oint 1 applic 12/16/21 14:10 Mineral Oil/Petrolatum, White Ophth Oint 3.5 Gm OU Q4HR PRN Dry Eye(s) Nitroglycerin 0.4 mg 12/11/21 22:11 Nitroglycerin 0.4 Mg Tab Subl SL Q5M PRN Chest Pain Senna/Docusate Sodium 1 tab 12/16/21 22:00 12/22/21 09:16 Sennosides/Docusate Sodium 8.6/50 Mg Tab FEEDTUBE 1 tab BID KRISTA Administration Simple Syrup 15 ml 12/16/21 11:15 Simple Syrup 15 Ml FEEDTUBE PRN PRN Hypoglycemia Simple Syrup 30 ml 12/16/21 11:15 Simple Syrup 15 Ml FEEDTUBE PRN PRN Hypoglycemia Sodium Bicarbonate 325 mg 12/16/21 11:15 Sodium Bicarbonate 325 Mg Tab FEEDTUBE PRN PRN For Clogged Feeding Tube Sodium Chloride 10 ml 12/11/21 22:11 12/22/21 09:17 Sodium Chloride 0.9% 10 Ml Flush Syringe IV 10 ml PRN PRN Administration LINE FLUSH
--- NOTE | 2021-12-22 15:01 | Procedure Note ---
Date of procedure: 12/22/21 Pre-op diagnosis: Septic Shock Post-op diagnosis: same Procedure: Right Internal Jugular Central Line Placement Patient was evaluated and required Central line placement due to no vascular access 2/2 AV graft and Right arm wounds and Left femoral CVC need to be replaced, high risk for worsening wounds and bacteremia Telephone consent obtained from patient's daughter, Kameron Chavarria. Consent signed, witnessed, and placed in the chart. A time-out was completed verifying correct patient, procedure, site, and positioning. Hand hygiene were performed immediately prior to the procedure and sterile technique was used throughout the procedure. The patient's right neck was prepped with chlorhexidine scrub then draped in a sterile fashion. 1% Lidocaine was used to anesthetize the surrounding skin area. Ultrasound was utilized to localize the right internal jugular vein without difficulty, then the vein was accessed and a triple lumen catheter was introduced using the Seldinger technique. The catheter threaded smoothly over the guidewire and advan hi easily into the vein and brisk blood return was observed from each lumen. Each lumen were flushed and clamped, then the catheter was sutured in place, a Biopatch was placed at the insertion site, and covered with a sterile dressing. Patient tolerated the procedure well, no signs of any adverse reaction noted. CXR shows good placement without PTX, CVC is okay to use. Total Time Spent with Patient (Minutes): 60 minutes Anesthesia: local Surgeon: JONNATHAN TATUM Estimated blood loss: minimal Condition: stable Disposition: ICU
--- NOTE | 2021-12-22 15:10 | Progress Note ---
Assessment and Plan Impression: * ESRD * s/p fall * hypotension * elevated troponin * type 2 DM * history of HTN * GPC bacteremia Plan: * maintain MAP>70, continue pressors prn * tolerated hd 5/7 via AVF * plan for HD TTHSAT if hemodynamically stable, no indication for additionaL HD today, due tomorrow * Increase to 3K bath * will attempt UF removal as able * renal diet, fluid restriction * strict i/os and daily lytes * uf as tolerated with hd * note bacteremia- appreciate removal of PermCath. AVF working, no indication for acute intervention, appreciate IR/vascular * antibiotics per ID Subjective Date of service: 12/22/21 Principal diagnosis: Septic shock ; Bacteremia; ESRD on dialysis; AMS; NSTEMI; HTN; DM II Interval history: Remains intubated. FiO2 30%. Opens eyes Objective - Exam Narrative Exam: Constitutional: ill appearing, intubated, opening eyes today Head: NC/AT Neck: supple Lungs: coarse lung sounds CV: tachycardic Abdomen: soft, non-tender, bowel sounds present Back: nontender Extremities: no edema, pulses WNL Skin: intact Neuro: awake - Vital Signs Vital signs: Vital Signs - 12hr 12/22/21 12/22/21 12/22/21 04:00 04:05 05:00 Temperature 99.1 F Pulse Rate 81 80 83 Pulse Rate [ Anterior Bilateral Throughout] Pulse Rate [ 81 From Monitor] Respiratory 15 2 L 12 Rate Respiratory Rate [Anterior Bilateral Throughout] Blood Pressure 128/68 133/67 130/64 O2 Sat by Pulse 96 99 100 Oximetry 12/22/21 12/22/21 12/22/21 06:00 07:00 07:19 Temperature 98.7 F Pulse Rate 84 82 Pulse Rate [ Anterior Bilateral Throughout] Pulse Rate [ From Monitor] Respiratory 15 16 Rate Respiratory Rate [Anterior Bilateral Throughout] Blood Pressure 123/54 122/62 O2 Sat by Pulse 96 100 Oximetry 12/22/21 12/22/21 12/22/21 08:00 08:07 09:00 Temperature Pulse Rate 86 93 H 89 Pulse Rate [ 92 H Anterior Bilateral Throughout] Pulse Rate [ From Monitor] Respiratory 15 14 Rate Respiratory 18 Rate [Anterior Bilateral Throughout] Blood Pressure 125/76 125/76 123/81 O2 Sat by Pulse 100 100 100 Oximetry 12/22/21 12/22/21 12/22/21 10:00 11:00 11:19 Temperature 99.2 F Pulse Rate 83 88 Pulse Rate [ Anterior Bilateral Throughout] Pulse Rate [ From Monitor] Respiratory 13 20 Rate Respiratory Rate [Anterior Bilateral Throughout] Blood Pressure 110/61 136/79 O2 Sat by Pulse 90 89 Oximetry 12/22/21 12/22/21 12/22/21 11:32 12:00 13:00 Temperature Pulse Rate 85 84 Pulse Rate [ Anterior Bilateral Throughout] Pulse Rate [ From Monitor] Respiratory 21 20 19 Rate Respiratory Rate [Anterior Bilateral Throughout] Blood Pressure 140/84 121/73 125/79 O2 Sat by Pulse 98 97 97 Oximetry 12/22/21 12/22/21 13:09 14:00 Temperature Pulse Rate 84 Pulse Rate [ 72 Anterior Bilateral Throughout] Pulse Rate [ From Monitor] Respiratory 20 Rate Respiratory 20 Rate [Anterior Bilateral Throughout] Blood Pressure 130/64 O2 Sat by Pulse 96 Oximetry - Lab 12/22/21 04:14 12/22/21 04:14 Most recent lab results ABG pH 7.448 (7.320-7.450) 12/21/21 10:20 ABG pCO2 45.6 mm Hg 12/18/21 20:00 ABG pO2 62.5 mm Hg (80.0-90.0) L 12/18/21 20:00 ABG HCO3 26.6 mmol/L (20.0-26.0) H 12/18/21 20:00 ABG O2 Saturation 98.6 (0-100) 12/21/21 10:20 Calcium 8.1 mg/dL (8.4-10.2) L 12/22/21 04:14 Phosphorus 4.50 mg/dL (2.5-4.5) D 12/19/21 21:19 Magnesium 2.10 mg/dL (1.7-2.3) 12/18/21 12:00 Medications & Allergies - Medications Allergies/Adverse Reactions: Allergies No Known Allergies Allergy (Verified 12/11/21 22:19) Home Medications: Home Medications Medication Instructions Recorded Confirmed Last Taken Type Albuterol Sulfate [Proair 2 puff IH Q6HR PRN 11/23/21 12/14/21 Unknown History Digihaler] Calcium Acetate 2 tab PO TID 11/23/21 12/14/21 Unknown History Fluticasone/Umeclidin/Vilanter 1 each IH DAILY 11/23/21 12/14/21 Unknown History [Trelegy Ellipta 100-62.5-25] Furosemide [Lasix TAB] 40 mg PO QDAY 11/23/21 12/14/21 Unknown History Insulin Aspart (Nf) [NovoLOG 55 unit SQ TID 11/23/21 12/14/21 Unknown History Flexpen] Insulin Glargine [Lantus VIAL] 25 units SQ QHS 11/23/21 12/14/21 Unknown History Omeprazole 20 mg PO DAILY 11/23/21 12/14/21 Unknown History Spironolactone [Aldactone] 100 mg PO QDAY 11/23/21 12/14/21 Unknown History lisinopriL [Lisinopril] 20 mg PO BID 11/23/21 12/14/21 12/06/21 History 500 MG Docusate Sodium [Colace CAP] 100 mg PO BID PRN #60 capsule 11/24/21 12/14/21 U nknown Rx Aspirin EC [Halfprin EC] 81 mg PO DAILY 90 Days #90 tablet 11/26/21 12/14/21 Unknown Rx Aspirin [Adult Aspirin] 81 mg PO DAILY 90 Days #90 tab 11/26/21 12/14/21 Unknown Rx ISOSORBIDE MONOnitrate [Imdur ER] 60 mg PO QDAY 90 Days #90 tab 11/26/21 12/14/21 Unknown Rx Sevelamer Carbonate [Renvela] 800 mg PO TIDWM 90 Days #270 tab 11/26/21 12/14/21 Unknown Rx amLODIPine 10 mg PO DAILY 90 Days #90 tab 11/26/21 12/14/21 Unknown Rx carvediloL [Coreg] 25 mg PO BID 90 Days #180 tab 11/26/21 12/14/21 Unknown Rx Atorvastatin Calcium [Lipitor] 80 mg PO QHS 90 Days #90 tab 11/27/21 12/14/21 Unknown Rx levETIRAcetam [Keppra TAB] 500 mg PO 3XW 12/14/21 12/14/21 12/06/21 History 500 MG Active Medications: Generic Name Dose Route Start Last Admin Trade Name Freq PRN Reason Stop Dose Admin Acetaminophen 650 mg 12/13/21 23:00 12/13/21 23:18 Acetaminophen 650 Mg Rect Supp [place] 650 mg Q4H PRN Administration Pain, Mild (1-3) Albuterol 2.5 mg 12/11/21 22:14 Albuterol 2.5 Mg/3 Ml Nebu IH Q6HR PRN Wheezing Albuterol/Ipratropium 1 ampul 12/14/21 08:00 12/22/21 13:09 Ipratropium/Albuterol Sulfate 3 Ml Ampul.Neb IH 1 ampul TIDRT KRISTA Administration Lipase/Protease/Amylase 1 each 12/16/21 11:15 Lipase 10,500/Protease 25,000/Amylase 43,750 (Units) Dr Blanco FEEDTUBE PRN PRN For Clogged Feeding Tube Aspirin 81 mg 12/15/21 10:00 12/22/21 09:16 Aspirin 81 Mg Tab Chew FEEDTUBE 81 mg QDAY KRISTA Administration Atorvastatin Calcium 80 mg 12/15/21 22:00 12/21/21 21:21 Atorvastatin 40 Mg Tab FEEDTUBE 80 mg QHS KRISTA Administration Budesonide 0.5 mg 12/13/21 08:00 12/22/21 08:07 Budesonide 0.5 Mg/2 Ml Nebu IH 0.5 mg Q12HRT KRISTA Administration Dextrose 50 ml 12/11/21 22:23 12/16/21 06:24 Dextrose 50% In Water (25gm) 50 Ml Syringe IV 15 ml Q30MIN PRN Administration Hypoglycemia Protocol Famotidine 10 mg 12/22/21 22:00 Famotidine 10 Mg Tab FEEDTUBE BID KRISTA Fentanyl 50 mcg 12/15/21 17:19 12/22/21 09:17 Fentanyl 100 Mcg/2 Ml Inj IV 50 mcg Q10MIN PRN Administration ANALGESIA Hydrophilic Ointment 1 applic 12/16/21 14:30 Lip Therapy Vaseline TP Q2HR PRN Dry Lips Sodium Chloride 100 mls @ 999 mls/hr 12/12/21 12:00 Nacl 0.9% IV ABEL PRN Hypotension NORepinephrine/NS 8 MG-250 ML 8 mg in 250 mls @ 3.75 mls/hr 12/14/21 23:00 12/18/21 19:02 Norepinephrine/Ns 8 Mg-250 Ml (Double Conc) IV 0 mcg/min TITRATE KRISTA 0 mls/hr Titration Protocol 2 MCG/MIN Fentanyl Citrate 2,000 mcg in 100 mls @ 2.945 mls/hr 12/15/21 18:00 12/19/21 18:28 Fentanyl Drip Premix IV 0 mcg/kg/hr TITR KRISTA 0 mls/hr Titration Protocol 1 MCG/KG/HR Ceftriaxone Sodium 2 gm in 100 mls @ 200 mls/hr 12/16/21 15:00 12/21/21 15:27 Rocephin/Ns 2 Gm/100 Ml IV 12/29/21 15:29 200 mls/hr Q24H KRISTA Administration Protocol Potassium Chloride 20 meq in 100 mls @ 100 mls/hr 12/22/21 16:00 Kcl 20meq/100ml IV 12/22/21 17:59 Q1H KRISTA Insulin Glargine 5 units 12/21/21 22:00 12/21/21 21:21 Insulin Glargine 100 Units/Ml SUB-Q 5 units QHS [facility] Administration Insulin Human Lispro 0 unit 12/15/21 12:00 12/22/21 12:46 Insulin Lispro 100 Unit/Ml SUB-Q 3 unit Q6HR [facility] Administration Protocol Levetiracetam 500 mg 12/16/21 18:00 12/20/21 17:50 Levetiracetam 500 Mg/5 Ml Oral Liqd FEEDTUBE 500 mg TuThSa [facility] Administration Metoclopramide HCl 2.5 mg 12/21/21 10:00 12/22/21 09:17 Metoclopramide 10 Mg/2 Ml Inj IV 2.5 mg Q6H KRISTA Administration Midodrine 10 mg 12/15/21 12:00 12/22/21 12:46 Midodrine 10 Mg Tab FEEDTUBE 10 mg TID@0800,1200,1600 [facility] Administration Morphine Sulfate 2 mg 12/11/21 22:11 Morphine 4 Mg/1 Ml Inj IV Q5MIN PRN Chest Pain unrelieved by NTG Multi-Ingred Cream/Lotion/Oil/Oint 1 applic 12/16/21 14:10 Mineral Oil/Petrolatum, White Ophth Oint 3.5 Gm OU Q4HR PRN Dry Eye(s) Nitroglycerin 0.4 mg 12/11/21 22:11 Nitroglycerin 0.4 Mg Tab Subl SL Q5M PRN Chest Pain Senna/Docusate Sodium 1 tab 12/16/21 22:00 12/22/21 09:16 Sennosides/Docusate Sodium 8.6/50 Mg Tab FEEDTUBE 1 tab BID KRISTA Administration Simple Syrup 15 ml 12/16/21 11:15 Simple Syrup 15 Ml FEEDTUBE PRN PRN Hypoglycemia Simple Syrup 30 ml 12/16/21 11:15 Simple Syrup 15 Ml FEEDTUBE PRN PRN Hypoglycemia Sodium Bicarbonate 325 mg 12/16/21 11:15 Sodium Bicarbonate 325 Mg Tab FEEDTUBE PRN PRN For Clogged Feeding Tube Sodium Chloride 10 ml 12/11/21 22:11 12/22/21 09:17 Sodium Chloride 0.9% 10 Ml Flush Syringe IV 10 ml PRN PRN Administration LINE FLUSH
--- NOTE | 2021-12-22 15:12 | XRay Report ---
CHEST 1 VIEW 12/22/2021 2:05 PM INDICATION / CLINICAL INFORMATION: Central Line Placement. COMPARISON: 12/19/21. FINDINGS: SUPPORT DEVICES: There is a new right jugular CVL with the tip overlying the upper cavoatrial junctio n. The positions of the endotracheal tube and feeding tube have not changed. HEART / MEDIASTINUM: Unchanged. LUNGS / PLEURA: Mild patchy opacities in both mid to lower lung zones have cleared. No new pulmonary or pleural abnormality. No pneumothorax. ADDITIONAL FINDINGS: Left subclavian stent graft is again noted. IMPRESSION: Right jugular CVL placement without complication. Signer Name: Zen Frazier MD Signed: 12/22/2021 3:07 PM Workstation Name: [email or web address]
[2021-12-22 15:24] LABS: Hematocrit 33.1 % (30.3-42.9); Hemoglobin 10.8 gm/dl (10.1-14.3)
[2021-12-22 15:35] LABS: INR 1.3 (0.87-1.13)
[2021-12-22] MEDS: cefTRIAXone/NS 2 GM/100 ML 2 GM/100 ML BAG IV SCH (16:45)
[2021-12-22] MEDS: POTASSIUM CHLORIDE 20 MEQ 20 MEQ/100 ML BAG IV SCH ×2 (17:59→18:57)
[2021-12-22] MEDS: INSULIN GLARGINE 100 UNITS/ML SUB-Q SCH (21:00)
[2021-12-22] MEDS: PANTOPRAZOLE 40 MG INJ IV SCH (21:04)
[2021-12-22] MEDS ORDERED: FAMOTIDINE 10 MG TAB FEEDTUBE SCH (22:00)
[2021-12-22 23:05] LABS: Hematocrit 33.3 % (30.3-42.9); Hemoglobin 10.4 gm/dl (10.1-14.3)
[2021-12-23] MEDS: INSULIN LISPRO 100 UNIT/ML SUB-Q SCH ×4 (00:24→17:31)
[2021-12-23] MEDS ORDERED: DEXTROSE 10% IN WATER 1,000 ML IV SCH (01:00)
[2021-12-23] MEDS: METOCLOPRAMIDE 10 MG/2 ML INJ IV SCH ×2 (03:35→09:17)
[2021-12-23 05:16] LABS: Hematocrit 31.2 % (30.3-42.9); Mean Corpuscular HGB Conc 32 % (30-34); Mean Corpuscular Volume 79 fl (79-97); Red Blood Count 3.94 M/mm3 (3.65-5.03); Red Cell Distribution Width 17.6 % (13.2-15.2)
[2021-12-23 05:22] LABS: Platelet Count 79 K/mm3 (140-440)
[2021-12-23 05:34] LABS: Calcium 7.9 mg/dL (8.4-10.2)
[2021-12-23] MEDS: IPRATROPIUM/ALBUTEROL SULFATE 3 ML AMPUL.NEB IH SCH ×3 (08:11→20:15)
--- NOTE | 2021-12-23 08:48 | Progress Note ---
Subjective Principal diagnosis: Septic shock ; Bacteremia; ESRD on dialysis; AMS; NSTEMI; HTN; DM II Interval history: Assessment and plan #End-stage kidney disease: Patient will continue to receive hemodialysis treatment 3 times a week on Wednesday and Wednesday schedule from renal standpoint her hemoglobin is 10 point Potassium 4.0 phosphorus 4.9 as of today Monitor dialysis related labs/monitor for any access issues Fluid restriction 1200 cc/day high-protein diet #Access: Noted to have bacteremia permacath removed fistula is currently working Antibiotic dose and duration per infectious disease # Blood presure and volume: Patient was admitted with fall and hypotension, judicious ultrafiltration during dialysis nurse to monitor closely Dialysate bath was changed to 3.0, she currently does not have any significant edema peripherally, except for the right upper arm and hand, currently on midodrine to monitor and follow #Anemia in end-stage kidney disease: To monitor and follow erythropoietin perio dically goal hemoglobin between 10-11-1/2 Minimize lab draw in dialysis patients, if possible consider limiting to dialysis days Bone mineral disorder and secondary hyperparathyroidism; Monitor phosphorus binders as necessary goal phosphorus less than 5-1/2 #Diet and nutrition: High-protein diet, multivitamin, Nepro, #Medication recommendation: no changes necessary today Time spent in critical care 34 minutes We'll continue to follow and make recommendation for renal standpoint. Progress note by: Sagar Kent MD [address] [place] [id number] Tele [phone] [employer] Patient was seen today for follow-up of multiple renal related issues currently intubated ventilator dependent, critically ill in the ICU Events of 24 hours vitals labs intake output medications were reviewed Past medical history: Reviewed Family history: Reviewed Social history: Reviewed Allergies: Reviewed Physical examination: Vitals: Reviewed HEENT: intubated Neck: Supple no JVD no thyromegaly Chest: Bilateral clear to auscultation anteriorly Heart: Regular rate and rhythm S1-S2 heard no S3-S4 Abdomen: Soft nontender no voluntary guarding rigidity rebound Extremity: fistula in the left upper arm has good thrill and bruit, right forearm appears to have some loss of skin Psychiatric: No evidence of agitation and aggression noted Dermatology: No petechial rashes Labs and x-rays: Reviewed from today Objective - Vital Signs Vital signs: Vital Signs - 12hr 12/22/21 12/22/21 12/22/21 21:00 21:09 22:00 Temperature Pulse Rate 74 80 80 Pulse Rate [ Anterior Bilateral Throughout] Pulse Rate [ From Monitor] Respiratory 19 18 Rate Respiratory Rate [Anterior Bilateral Throughout] Blood Pressure 126/70 116/52 O2 Sat by Pulse 100 100 Oximetry 12/22/21 12/22/21 12/22/21 23:00 23:06 23:57 Temperature Pulse Rate 77 77 Pulse Rate [ Anterior Bilateral Throughout] Pulse Rate [ From Monitor] Respiratory 19 16 Rate Respiratory Rate [Anterior Bilateral Throughout] Blood Pressure 114/54 114/54 94/41 O2 Sat by Pulse 100 100 100 Oximetry 12/23/21 12/23/21 12/23/21 00:00 00:01 01:00 Temperature 99.1 F Pulse Rate 76 76 Pulse Rate [ Anterior Bilateral Throughout] Pulse Rate [ 80 From Monitor] Respiratory 14 13 Rate Respiratory Rate [Anterior Bilateral Throughout] Blood Pressure 99/41 109/56 O2 Sat by Pulse 100 100 100 Oximetry 12/23/21 12/23/21 12/23/21 02:00 03:00 03:57 Temperature Pulse Rate 77 77 Pulse Rate [ Anterior Bilateral Throughout] Pulse Rate [ From Monitor] Respiratory 13 12 Rate Respiratory Rate [Anterior Bilateral Throughout] Blood Pressure 107/88 121/61 111/66 O2 Sat by Pulse 100 100 100 Oximetry 12/23/21 12/23/21 12/23/21 04:00 05:00 06:00 Temperature 99 F Pulse Rate 79 80 77 Pulse Rate [ Anterior Bilateral Throughout] Pulse Rate [ 80 From Monitor] Respiratory 14 12 13 Rate Respiratory Rate [Anterior Bilateral Throughout] Blood Pressure 99/75 104/59 111/57 O2 Sat by Pulse 100 100 100 Oximetry 12/23/21 08:00 Temperature 98.3 F Pulse Rate 76 Pulse Rate [ 77 Anterior Bilateral Throughout] Pulse Rate [ From Monitor] Respiratory Rate Respiratory 12 Rate [Anterior Bilateral Throughout] Blood Pressure 107/49 O2 Sat by Pulse 100 Oximetry - Lab 12/25/21 05:12 12/25/21 05:12 Most recent lab results ABG pH 7.448 (7.320-7.450) 12/21/21 10:20 ABG pCO2 45.6 mm Hg 12/18/21 20:00 ABG pO2 62.5 mm Hg (80.0-90.0) L 12/18/21 20:00 ABG HCO3 26.6 mmol/L (20.0-26.0) H 12/18/21 20:00 ABG O2 Saturation 98.6 (0-100) 12/21/21 10:20 Calcium 7.9 mg/dL (8.4-10.2) L 12/23/21 04:39 Phosphorus 4.90 mg/dL (2.5-4.5) H 12/23/21 04:39 Magnesium 1.90 mg/dL (1.7-2.3) 12/23/21 04:39 Medications & Allergies - Medications Allergies/Adverse Reactions: Allergies No Known Allergies Allergy (Verified 12/11/21 22:19) Home Medications: Home Medications Medication Instructions Recorded Confirmed Last Taken Type Albuterol Sulfate [Proair 2 puff IH Q6HR PRN 11/23/21 12/14/21 Unknown History Digihaler] Calcium Acetate 2 tab PO TID 11/23/21 12/14/21 Unknown History Fluticasone/Umeclidin/Vilanter 1 each IH DAILY 11/23/21 12/14/21 Unknown History [Trelegy Ellipta 100-62.5-25] Furosemide [Lasix TAB] 40 mg PO QDAY 11/23/21 12/14/21 Unknown History Insulin Aspart (Nf) [NovoLOG 55 unit SQ TID 11/23/21 12/14/21 Unknown History Flexpen] Insulin Glargine [Lantus VIAL] 25 units SQ QHS 11/23/21 12/14/21 Unknown History Omeprazole 20 mg PO DAILY 11/23/21 12/14/21 Unknown History Spironolactone [Aldactone] 100 mg PO QDAY 11/23/21 12/14/21 Unknown History lisinopriL [Lisinopril] 20 mg PO BID 11/23/21 12/14/21 12/06/21 History 500 MG Docusate Sodium [Colace CAP] 100 mg PO BID PRN #60 capsule 11/24/21 12/14/21 Unknown Rx Aspirin EC [Halfprin EC] 81 mg PO DAILY 90 Days #90 tablet 11/26/21 12/14/21 Unknown Rx Aspirin [Adult Aspirin] 81 mg PO DAILY 90 Days #90 tab 11/26/21 12/14/21 Unknown Rx ISOSORBIDE MONOnitrate [Imdur ER] 60 mg PO QDAY 90 Days #90 tab 11/26/21 12/14/21 Unknown Rx Sevelamer Carbonate [Renvela] 800 mg PO TIDWM 90 Days #270 tab 11/26/21 12/14/21 Unknown Rx amLODIPine 10 mg PO DAILY 90 Days #90 tab 11/26/21 12/14/21 Unknown Rx carvediloL [Coreg] 25 mg PO BID 90 Days #180 tab 11/26/21 12/14/21 Unknown Rx Atorvastatin Calcium [Lipitor] 80 mg PO QHS 90 Days #90 tab 11/27/21 12/14/21 Unknown Rx levETIRAcetam [Keppra TAB] 500 mg PO 3XW 12/14/21 12/14/21 12/06/21 History 500 MG Active Medications: Generic Name Dose Route Start Last Admin Trade Name Freq PRN Reason Stop Dose Admin Acetaminophen 650 mg 12/13/21 23:00 12/13/21 23:18 Acetaminophen 650 Mg Rect Supp NC 650 mg Q4H PRN Administration Pain, Mild (1-3) Albuterol 2.5 mg 12/11/21 22:14 Albuterol 2.5 Mg/3 Ml Nebu IH Q6HR PRN Wheezing Albuterol/Ipratropium 1 ampul 12/14/21 08:00 12/23/21 08:11 Ipratropium/Albuterol Sulfate 3 Ml Ampul.Neb IH 1 ampul TIDRT KRISTA Administration Lipase/Protease/Amylase 1 each 12/16/21 11:15 Lipase 10,500/Protease 25,000/Amylase 43,750 (Units) Dr Blanco FEEDTUBE PRN PRN For Clogged Feeding Tube Aspirin 81 mg 12/15/21 10:00 12/22/21 09:16 Aspirin 81 Mg Tab Chew FEEDTUBE 81 mg QDAY KRSITA Administration Atorvastatin Calcium 80 mg 12/15/21 22:00 12/22/21 21:03 Atorvastatin 40 Mg Tab FEEDTUBE 80 mg QHS KRISTA Administration Budesonide 0.5 mg 12/13/21 08:00 12/22/21 20:05 Budesonide 0.5 Mg/2 Ml Nebu IH 0.5 mg Q12HRT KRISTA Administration Dextrose 50 ml 12/11/21 22:23 12/16/21 06:24 Dextrose 50% In Water (25gm) 50 Ml Syringe IV 15 ml Q30MIN PRN Administration Hypoglycemia Protocol Hydrophilic Ointment 1 applic 12/16/21 14:30 Lip Therapy Vaseline TP Q2HR PRN Dry Lips Sodium Chloride 100 mls @ 999 mls/hr 12/12/21 12:00 Nacl 0.9% IV ABEL PRN Hypotension Ceftriaxone Sodium 2 gm in 100 mls @ 200 mls/hr 12/16/21 15:00 12/22/21 16:45 Rocephin/Ns 2 Gm/100 Ml IV 12/29/21 15:29 200 mls/hr Q24H KRISTA Administration Protocol Dextrose 1,000 mls @ 25 mls/hr 12/23/21 01:00 12/23/21 00:38 D10w IV 25 mls/hr DIRECT KRISTA Administration Insulin Glargine 5 units 12/21/21 22:00 12/22/21 21:00 Insulin Glargine 100 Units/Ml SUB-Q Not Given QHS KRISTA Insulin Human Lispro 0 unit 12/15/21 12:00 12/23/21 05:28 Insulin Lispro 100 Unit/Ml SUB-Q Not Given Q6HR KRISTA Protocol Levetiracetam 500 mg 12/16/21 18:00 12/20/21 17:50 Levetiracetam 500 Mg/5 Ml Oral Liqd FEEDTUBE 500 mg TuThSa KRISTA Administration Metoclopramide HCl 2.5 mg 12/21/21 10:00 12/23/21 03:35 Metoclopramide 10 Mg/2 Ml Inj IV Not Given Q6H KRISTA Midodrine 10 mg 12/15/21 12:00 12/22/21 16:47 Midodrine 10 Mg Tab FEEDTUBE 10 mg TID@0800,1200,1600 KRISTA Administration Morphine Sulfate 2 mg 12/11/21 22:11 Morphine 4 Mg/1 Ml Inj IV Q5MIN PRN Chest Pain unrelieved by NTG Multi-Ingred Cream/Lotion/Oil/Oint 1 applic 12/16/21 14:10 Mineral Oil/Petrolatum, White Ophth Oint 3.5 Gm OU Q4HR PRN Dry Eye(s) Nitroglycerin 0.4 mg 12/11/21 22:11 Nitroglycerin 0.4 Mg Tab Subl SL Q5M PRN Chest Pain Pantoprazole Sodium 40 mg 12/22/21 22:00 12/22/21 21:04 Pantoprazole 40 Mg Inj IV 40 mg BID KRISTA Administration Senna/Docusate Sodium 1 tab 12/16/21 22:00 12/22/21 21:01 Sennosides/Docusate Sodium 8.6/50 Mg Tab FEEDTUBE Not Given BID KRISTA Simple Syrup 15 ml 12/16/21 11:15 Simple Syrup 15 Ml FEEDTUBE PRN PRN Hypoglycemia Simple Syrup 30 ml 12/16/21 11:15 Simple Syrup 15 Ml FEEDTUBE PRN PRN Hypoglycemia Sodium Bicarbonate 325 mg 12/16/21 11:15 Sodium Bicarbonate 325 Mg Tab FEEDTUBE PRN PRN For Clogged Feeding Tube Sodium Chloride 10 ml 12/11/21 22:11 12/22/21 09:17 Sodium Chloride 0.9% 10 Ml Flush Syringe IV 10 ml PRN PRN Administration LINE FLUSH
[2021-12-23] MEDS: BUDESONIDE 0.5 MG/2 ML NEBU IH SCH ×2 (09:15→20:15)
[2021-12-23] MEDS: SENNOSIDES/DOCUSATE SODIUM 8.6/50 MG TAB FEEDTUBE SCH ×2 (09:18→21:12)
[2021-12-23] MEDS: MIDODRINE 10 MG TAB FEEDTUBE SCH ×3 (09:33→17:32)
[2021-12-23] MEDS: ASPIRIN 81 MG TAB CHEW FEEDTUBE SCH (09:33)
[2021-12-23] MEDS: PANTOPRAZOLE 40 MG INJ IV SCH ×2 (09:33→21:12)
--- NOTE | 2021-12-23 09:58 | Progress Note ---
Assessment and Plan Septic shock Bacteremia with gram-positive cocci End-stage renal disease on dialysis Acute toxic metabolic encephalopathy Thrombocytopenia Non-ST elevation myocardial infarction A-Fib with RVR Hypertension Diabetes type 2 Anemia that is normocytic (AMS is the rate limiting factor for safe extubation so far but improving) - attempting to reach daughter for endoscopy consent - preferably will extubate after endoscopy - tolerating SBT well - for dialysis today - continue to trend H&H - continue SBT but will hold on extubation till GI issues resolved - now with RIJ CVL - continue care as below otherwise; - continue wound care per RN / WCN - prn vasopressors for target MAP > 65 mmHg - thrombocytopenia is improving (HIT assay) - Daily SAT and SBT assessment as tolerated - continue to wean supplemental oxygen for target O2 sat's > 90% acutely - VAP bundle addressed - continue lung protective strategies - continue bronchodilators with pulmonary hygiene per RT - wean per pulmonary driven protocols otherwise - continue HD/UF for toxin and volume clearance - avoid nephrotoxins, renally dose all medications - continue to avoid benzodiazepine's, reduce the possibility of delirium - complete AB's per ID rec's (On Rocephin) - prn analgesia per CPOT score - Maintenance of sleep-wake cycle, avoid delirium - continue enteral nutritional support at goal rate as tolerated - G.I. & VTE prophylaxis - PT/OT/ROM exercises - continue mobility protocols for pressure ulcer prophylaxis - Monitor hemodynamics closely - continue other care per attending / other consultants - discharge planning ongoing concurrently .... Re-evaluate in am & prn CONDITION: CRITICAL PROGNOSIS: GUARDED CODE STATUS: FULL CODE The high probability of a clinically significant, sudden or life-threatening deterioration of the [respiratory, cardiovascular, renal & neurologic] system(s) required my full and direct attention, intervention and personal management. The aggregate critical care time was [31] minutes without overlap. Time includes spent on; [x] Data Review and interpretation [x] Patient assessment and monitoring of vital signs [x] Documentation [x] Medication orders and management Subjective Date of service: 12/23/21 Principal diagnosis: Septic shock ; Bacteremia; ESRD on dialysis; AMS; NSTEMI; HTN; DM II Interval history: Patient is seen today for: Septic shock ; gm +ve Bacteremia; ESRD on dialysis; AMS; NSTEMI; Hypertension; DM II Seen and examined at bedside; 24hour events reviewed; nursing and respiratory care staff consulted; no adverse overnight events reported to me; resting peac efully in bed; alert and appropriate; still with FMS bleeding (? Colon); H&H holding; denies acute chest pain; afebrile Objective Vital Signs - 12hr 12/22/21 12/22/21 12/22/21 22:00 23:00 23:06 Temperature Pulse Rate 80 77 77 Pulse Rate [ Anterior Bilateral Throughout] Pulse Rate [ From Monitor] Respiratory 18 19 16 Rate Respiratory Rate [Anterior Bilateral Throughout] Blood Pressure 116/52 114/54 114/54 O2 Sat by Pulse 100 100 100 Oximetry 12/22/21 12/23/21 12/23/21 23:57 00:00 00:01 Temperature 99.1 F Pulse Rate 76 Pulse Rate [ Anterior Bilateral Throughout] Pulse Rate [ 80 From Monitor] Respiratory 14 Rate Respiratory Rate [Anterior Bilateral Throughout] Blood Pressure 94/41 99/41 O2 Sat by Pulse 100 100 100 Oximetry 12/23/21 12/23/21 12/23/21 01:00 02:00 03:00 Temperature Pulse Rate 76 77 77 Pulse Rate [ Anterior Bilateral Throughout] Pulse Rate [ From Monitor] Respiratory 13 13 12 Rate Respiratory Rate [Anterior Bilateral Throughout] Blood Pressure 109/56 107/88 121/61 O2 Sat by Pulse 100 100 100 Oximetry 12/23/21 12/23/21 12/23/21 03:57 04:00 05:00 Temperature 99 F Pulse Rate 79 80 Pulse Rate [ Anterior Bilateral Throughout] Pulse Rate [ 80 From Monitor] Respiratory 14 12 Rate Respiratory Rate [Anterior Bilateral Throughout] Blood Pressure 111/66 99/75 104/59 O2 Sat by Pulse 100 100 100 Oximetry 12/23/21 12/23/21 06:00 08:00 Temperature 98.3 F Pulse Rate 77 76 Pulse Rate [ 77 Anterior Bilateral Throughout] Pulse Rate [ From Monitor] Respiratory 13 Rate Respiratory 12 Rate [Anterior Bilateral Throughout] Blood Pressure 111/57 107/49 O2 Sat by Pulse 100 100 Oximetry Constitutional: no acute distress, other (elderly female with normal respiratory effort at rest) Eyes: non-icteric ENT: oropharynx moist, other (ETT 23 cm JUSTIN) Neck: supple, no JVD Effort: normal Ascultation: Bilateral: rhonchi (scant) Percussion: Bilateral: not dull Cardiovascular: regular rate and rhythm Gastrointestinal: normoactive bowel sounds, soft, non-tender, non-distended (protuberant) Integumentary: rash (right groin / ? scar), other (Left upper extremity AV graft; right forearm blisters (open and closed) and induration; no pus) Extremities: no cyanosis, pulses normal, no ischemia or petechiae, edema (right upper extremity) Neurologic: non-focal exam (grossly), pupils equal and round, CN II-XII normal, motor strength normal and Psychiatric: mood appropriate, affect normal CBC and BMP: 12/24/21 06:00 12/24/21 06:00 ABG, PT/INR, D-dimer: ABG ABG pH 7.448 (7.320-7.450) 12/21/21 10:20 POC ABG pCO2 36.0 mmHg (32.0-48.0) 12/21/21 10:20 ABG pCO2 45.6 mm Hg 12/18/21 20:00 POC ABG pO2 126.1 mmHg (83-108) H 12/21/21 10:20 ABG pO2 62.5 mm Hg (80.0-90.0) L 12/18/21 20:00 POC ABG HCO3 24.3 12/21/21 10:20 ABG O2 Saturation 98.6 (0-100) 12/21/21 10:20 PT/INR, D-dimer PT 17.7 Sec. (12.2-14.9) H 12/22/21 14:05 INR 1.30 (0.87-1.13) H 12/22/21 14:05 Abnormal lab findings: Abnormal Labs 12/11/21 12/11/21 12/12/21 14:52 15:40 04:43 WBC RBC 3.57 L Hgb 9.4 L Hct 29.5 L MCH 26 L 27 L RDW 17.8 H 17.9 H Plt Count 119 L 110 L Lymph % (Auto) 4.0 L Lymph # (Auto) 0.3 L Seg Neutrophils % 90.0 H Seg Neuts % (Manual) Lymphocytes % (Manual) Monocytes % (Manual) Nucleated RBC % Seg Neutrophils # Seg Neutrophils # Man Lymphocytes # (Manual) Percent Retic PT INR Fibrinogen ABG pH POC ABG pO2 ABG pO2 ABG HCO3 ABG O2 Saturation ABG Base Excess ABG Hemoglobin VBG pO2 Oxyhemoglobin Sodium Potassium Chloride Carbon Dioxide 18 L BUN 76 H Creatinine 9.2 H Glucose POC Glucose Lactic Acid Calcium 7.7 L Phosphorus Magnesium Iron TIBC Ferritin Alkaline Phosphatase 237 H Lactate Dehydrogenase Troponin T 0.168 H* C-Reactive Protein Albumin 3.6 L LDL Cholesterol Direct 16 L 12/12/21 12/12/21 12/12/21 04:43 04:43 08:49 WBC RBC Hgb Hct MCH RDW Plt Count Lymph % (Auto) Lymph # (Auto) Seg Neutrophils % Seg Neuts % (Manual) Lymphocytes % (Manual) Monocytes % (Manual) Nucleated RBC % Seg Neutrophils # Seg Neutrophils # Man Lymphocytes # (Manual) Percent Retic PT INR Fibrinogen ABG pH POC ABG pO2 ABG pO2 ABG HCO3 ABG O2 Saturation ABG Base Excess ABG Hemoglobin VBG pO2 Oxyhemoglobin Sodium 136 L Potassium Chloride 96.0 L Carbon Dioxide BUN 85 H Creatinine 9.6 H Glucose 57 L POC Glucose 47 L Lactic Acid Calcium 7.8 L Phosphorus Magnesium Iron TIBC Ferritin Alkaline Phosphatase Lactate Dehydrogenase Troponin T 0.175 H* C-Reactive Protein Albumin LDL Cholesterol Direct 12/12/21 12/13/21 12/13/21 11:12 07:30 07:30 WBC RBC Hgb 9.7 L Hct 30.0 L MCH 27 L RDW 18.0 H Plt Count 99 L Lymph % (Auto) 4.8 L Lymph # (Auto) 0.3 L Seg Neutrophils % 88.2 H Seg Neuts % (Manual) Lymphocytes % (Manual) Monocytes % (Manual) Nucleated RBC % Seg Neutrophils # Seg Neutrophils # Man Lymphocytes # (Manual) Percent Retic PT INR Fibrinogen ABG pH POC ABG pO2 ABG pO2 ABG HCO3 ABG O2 Saturation ABG Base Excess ABG Hemoglobin VBG pO2 Oxyhemoglobin Sodium Potassium 5.1 H Chloride 97.8 L Carbon Dioxide 16 L BUN 92 H Creatinine 10.6 H Glucose 121 H POC Glucose 64 L Lactic Acid Calcium 7.6 L Phosphorus Magnesium Iron TIBC Ferritin Alkaline Phosphatase Lactate Dehydrogenase Troponin T C-Reactive Protein Albumin LDL Cholesterol Direct 12/13/21 12/13/21 12/13/21 08:06 11:32 16:59 WBC RBC Hgb Hct MCH RDW Plt Count Lymph % (Auto) Lymph # (Auto) Seg Neutrophils % Seg Neuts % (Manual) Lymphocytes % (Manual) Monocytes % (Manual) Nucleated RBC % Seg Neutrophils # Seg Neutrophils # Man Lymphocytes # (Manual) Percent Retic PT INR Fibrinogen ABG pH POC ABG pO2 ABG pO2 ABG HCO3 ABG O2 Saturation ABG Base Excess ABG Hemoglobin VBG pO2 Oxyhemoglobin Sodium Potassium Chloride Carbon Dioxide BUN Creatinine Glucose POC Glucose 118 H 128 H 130 H Lactic Acid Calcium Phosphorus Magnesium Iron TIBC Ferritin Alkaline Phosphatase Lactate Dehydrogenase Troponin T C-Reactive Protein Albumin LDL Cholesterol Direct 12/13/21 12/14/21 12/14/21 20:16 11:10 11:10 WBC RBC Hgb 9.9 L Hct MCH 27 L RDW 18.1 H Plt Count 82 L Lymph % (Auto) 5.8 L Lymph # (Auto) 0.4 L Seg Neutrophils % 88.3 H Seg Neuts % (Manual) Lymphocytes % (Manual) Monocytes % (Manual) Nucleated RBC % Seg Neutrophils # Seg Neutrophils # Man Lymphocytes # (Manual) Percent Retic PT INR Fibrinogen ABG pH POC ABG pO2 ABG pO2 ABG HCO3 ABG O2 Saturation ABG Base Excess ABG Hemoglobin VBG pO2 Oxyhemoglobin Sodium Potassium Chloride Carbon Dioxide 21 L BUN 57 H Creatinine 7.1 H Glucose 105 H POC Glucose 113 H Lactic Acid Calcium Phosphorus Magnesium Iron TIBC Ferritin Alkaline Phosphatase Lactate Dehydrogenase Troponin T C-Reactive Protein Albumin LDL Cholesterol Direct 12/14/21 12/14/21 12/15/21 11:46 16:41 04:11 WBC RBC Hgb 9.9 L Hct 30.0 L MCH 27 L RDW 18.4 H Plt Count 57 L Lymph % (Auto) Lymph # (Auto) Seg Neutrophils % Seg Neuts % (Manual) Lymphocytes % (Manual) 9.0 L Monocytes % (Manual) 10.0 H Nucleated RBC % Seg Neutrophils # Seg Neutrophils # Man Lymphocytes # (Manual) 0.6 L Percent Retic PT INR Fibrinogen ABG pH POC ABG pO2 ABG pO2 ABG HCO3 ABG O2 Saturation ABG Base Excess ABG Hemoglobin VBG pO2 Oxyhemoglobin Sodium Potassium Chloride Carbon Dioxide BUN Creatinine Glucose POC Glucose 108 H 111 H Lactic Acid Calcium Phosphorus Magnesium Iron TIBC Ferritin Alkaline Phosphatase Lactate Dehydrogenase Troponin T C-Reactive Protein Albumin LDL Cholesterol Direct 12/15/21 12/15/21 12/15/21 04:11 08:48 10:02 WBC RBC Hgb Hct MCH RDW Plt Count Lymph % (Auto) Lymph # (Auto) Seg Neutrophils % Seg Neuts % (Manual) Lymphocytes % (Manual) Monocytes % (Manual) Nucleated RBC % Seg Neutrophils # Seg Neutrophils # Man Lymphocytes # (Manual) Percent Retic PT INR Fibrinogen ABG pH POC ABG pO2 ABG pO2 ABG HCO3 ABG O2 Saturation ABG Base Excess ABG Hemoglobin VBG pO2 Oxyhemoglobin Sodium Potassium Chloride Carbon Dioxide 19 L BUN 68 H Creatinine 7.6 H Glucose POC Glucose 68 L 65 L Lactic Acid Calcium 8.1 L Phosphorus Magnesium Iron TIBC Ferritin Alkaline Phosphatase Lactate Dehydrogenase Troponin T C-Reactive Protein Albumin LDL Cholesterol Direct 12/15/21 12/15/21 12/15/21 10:20 10:51 14:40 WBC RBC Hgb Hct MCH RDW Plt Count Lymph % (Auto) Lymph # (Auto) Seg Neutrophils % Seg Neuts % (Manual) Lymphocytes % (Manual) Monocytes % (Manual) Nucleated RBC % Seg Neutrophils # Seg Neutrophils # Man Lymphocytes # (Manual) Percent Retic PT INR Fibrinogen ABG pH POC ABG pO2 ABG pO2 ABG HCO3 ABG O2 Saturation ABG Base Excess ABG Hemoglobin VBG pO2 Oxyhemoglobin Sodium Potassium Chloride Carbon Dioxide BUN Creatinine Glucose POC Glucose 59 L 60 L Lactic Acid 2.50 H* Calcium Phosphorus Magnesium Iron TIBC Ferritin Alkaline Phosphatase Lactate Dehydrogenase Troponin T C-Reactive Protein Albumin LDL Cholesterol Direct 12/15/21 12/15/21 12/16/21 14:40 19:50 05:00 WBC 12.4 H RBC Hgb 9.6 L Hct 29.4 L MCH 26 L RDW 18.1 H Plt Count 40 L Lymph % (Auto) Lymph # (Auto) Seg Neutrophils % Seg Neuts % (Manual) 95.0 H Lymphocytes % (Manual) 5.0 L Monocytes % (Manual) Nucleated RBC % Seg Neutrophils # Seg Neutrophils # Man 11.8 H Lymphocytes # (Manual) 0.6 L Percent Retic PT INR Fibrinogen ABG pH POC ABG pO2 ABG pO2 463.3 H ABG HCO3 ABG O2 Saturation 99.6 H ABG Base Excess ABG Hemoglobin 10.9 L VBG pO2 > 258.0 H Oxyhemoglobin Sodium Potassium Chloride Carbon Dioxide BUN Creatinine Glucose POC Glucose Lactic Acid Calcium Phosphorus Magnesium Iron TIBC Ferritin Alkaline Phosphatase Lactate Dehydrogenase Troponin T C-Reactive Protein 38.50 H Albumin LDL Cholesterol Direct 12/16/21 12/16/21 12/16/21 05:00 06:15 09:58 WBC RBC Hgb Hct MCH RDW Plt Count Lymph % (Auto) Lymph # (Auto) Seg Neutrophils % Seg Neuts % (Manual) Lymphocytes % (Manual) Monocytes % (Manual) Nucleated RBC % Seg Neutrophils # Seg Neutrophils # Man Lymphocytes # (Manual) Percent Retic PT INR Fibrinogen ABG pH POC ABG pO2 ABG pO2 48.0 L ABG HCO3 ABG O2 Saturation 80.5 L ABG Base Excess -2.9 L ABG Hemoglobin 11.2 L VBG pO2 Oxyhemoglobin 78.8 L Sodium Potassium Chloride Carbon Dioxide BUN 75 H Creatinine 7.7 H Glucose POC Glucose 67 L Lactic Acid Calcium 8.3 L Phosphorus Magnesium Iron TIBC Ferritin Alkaline Phosphatase Lactate Dehydrogenase Troponin T C-Reactive Protein Albumin LDL Cholesterol Direct 12/16/21 12/16/21 12/17/21 11:06 23:24 04:00 WBC 12.3 H RBC 3.32 L Hgb 8.8 L Hct 26.5 L MCH 26 L RDW 18.0 H Plt Count 27 L Lymph % (Auto) 5.9 L Lymph # (Auto) 0.7 L Seg Neutrophils % 88.3 H Seg Neuts % (Manual) Lymphocytes % (Manual) Monocytes % (Manual) Nucleated RBC % Seg Neutrophils # 10.9 H Seg Neutrophils # Man Lymphocytes # (Manual) Percent Retic PT INR Fibrinogen ABG pH POC ABG pO2 ABG pO2 137.7 H ABG HCO3 ABG O2 Saturation ABG Base Excess ABG Hemoglobin 9.9 L VBG pO2 Oxyhemoglobin Sodium Potassium Chloride Carbon Dioxide BUN Creatinine Glucose POC Glucose 110 H Lactic Acid Calcium Phosphorus Magnesium Iron TIBC Ferritin Alkaline Phosphatase Lactate Dehydrogenase Troponin T C-Reactive Protein Albumin LDL Cholesterol Direct 12/17/21 12/17/21 12/17/21 04:30 04:30 11:18 WBC RBC Hgb Hct MCH RDW Plt Count Lymph % (Auto) Lymph # (Auto) Seg Neutrophils % Seg Neuts % (Manual) Lymphocytes % (Manual) Monocytes % (Manual) Nucleated RBC % Seg Neutrophils # Seg Neutrophils # Man Lymphocytes # (Manual) Percent Retic PT INR Fibrinogen ABG pH POC ABG pO2 ABG pO2 ABG HCO3 ABG O2 Saturation ABG Base Excess ABG Hemoglobin VBG pO2 Oxyhemoglobin Sodium Potassium Chloride Carbon Dioxide BUN 43 H Creatinine 5.0 H Glucose 129 H POC Glucose 149 H Lactic Acid Calcium 7.8 L Phosphorus 1.90 L Magnesium 1.60 L Iron TIBC Ferritin Alkaline Phosphatase Lactate Dehydrogenase Troponin T C-Reactive Protein Albumin LDL Cholesterol Direct 12/17/21 12/17/21 12/17/21 14:35 16:58 18:32 WBC RBC Hgb Hct MCH RDW Plt Count Lymph % (Auto) Lymph # (Auto) Seg Neutrophils % Seg Neuts % (Manual) Lymphocytes % (Manual) Monocytes % (Manual) Nucleated RBC % Seg Neutrophils # Seg Neutrophils # Man Lymphocytes # (Manual) Percent Retic PT 17.4 H INR 1.27 H Fibrinogen 486 H ABG pH 7.316 L POC ABG pO2 ABG pO2 74.0 L ABG HCO3 ABG O2 Saturation 93.7 L ABG Base Excess -3.3 L ABG Hemoglobin 8.8 L VBG pO2 Oxyhemoglobin 91.7 L Sodium Potassium Chloride Carbon Dioxide BUN Creatinine Glucose POC Glucose 219 H Lactic Acid Calcium Phosphorus Magnesium Iron TIBC Ferritin Alkaline Phosphatase Lactate Dehydrogenase Troponin T C-Reactive Protein Albumin LDL Cholesterol Direct 12/17/21 12/18/21 12/18/21 23:19 05:00 05:00 WBC 15.3 H RBC 3.25 L Hgb 8.4 L Hct 25.7 L MCH 26 L RDW 18.2 H Plt Count 28 L Lymph % (Auto) Lymph # (Auto) Seg Neutrophils % Seg Neuts % (Manual) 99.0 H Lymphocytes % (Manual) 1.0 L Monocytes % (Manual) Nucleated RBC % 1.0 H Seg Neutrophils # Seg Neutrophils # Man 15.1 H Lymphocytes # (Manual) 0.2 L Percent Retic 0.37 L PT INR Fibrinogen ABG pH POC ABG pO2 ABG pO2 ABG HCO3 ABG O2 Saturation ABG Base Excess ABG Hemoglobin VBG pO2 Oxyhemoglobin Sodium 135 L Potassium Chloride Carbon Dioxide 20 L BUN 53 H Creatinine 5.2 H Glucose 307 H POC Glucose 313 H Lactic Acid Calcium 8.0 L Phosphorus Magnesium Iron 13 L TIBC 109 L Ferritin Alkaline Phosphatase Lactate Dehydrogenase Troponin T C-Reactive Protein Albumin LDL Cholesterol Direct 12/18/21 12/18/21 12/18/21 05:00 05:00 09:00 WBC RBC Hgb Hct MCH RDW Plt Count Lymph % (Auto) Lymph # (Auto) Seg Neutrophils % Seg Neuts % (Manual) Lymphocytes % (Manual) Monocytes % (Manual) Nucleated RBC % Seg Neutrophils # Seg Neutrophils # Man Lymphocytes # (Manual) Percent Retic PT INR Fibrinogen 481 H ABG pH POC ABG pO2 ABG pO2 50.2 L ABG HCO3 ABG O2 Saturation 81.7 L ABG Base Excess -3.6 L ABG Hemoglobin 8.0 L VBG pO2 Oxyhemoglobin 80.0 L Sodium Potassium Chloride Carbon Dioxide BUN Creatinine Glucose POC Glucose Lactic Acid Calcium Phosphorus Magnesium Iron TIBC Ferritin 383.4 H Alkaline Phosphatase Lactate Dehydrogenase Troponin T C-Reactive Protein Albumin LDL Cholesterol Direct 12/18/21 12/18/21 12/18/21 10:56 11:10 12:00 WBC RBC Hgb Hct MCH RDW Plt Count Lymph % (Auto) Lymph # (Auto) Seg Neutrophils % Seg Neuts % (Manual) Lymphocytes % (Manual) Monocytes % (Manual) Nucleated RBC % Seg Neutrophils # Seg Neutrophils # Man Lymphocytes # (Manual) Percent Retic PT INR Fibrinogen ABG pH POC ABG pO2 ABG pO2 92.7 H ABG HCO3 19.8 L ABG O2 Saturation ABG Base Excess -3.8 L ABG Hemoglobin 6.6 L VBG pO2 Oxyhemoglobin Sodium Potassium Chloride Carbon Dioxide BUN Creatinine Glucose POC Glucose 190 H Lactic Acid Calcium Phosphorus 2.40 L D Magnesium Iron TIBC Ferritin Alkaline Phosphatase Lactate Dehydrogenase Troponin T C-Reactive Protein Albumin LDL Cholesterol Direct 12/18/21 12/18/21 12/18/21 18:06 20:00 23:05 WBC 19.2 H RBC 3.51 L Hgb 8.8 L Hct 27.8 L MCH 25 L RDW 18.1 H Plt Count 34 L Lymph % (Auto) Lymph # (Auto) Seg Neutrophils % Seg Neuts % (Manual) Lymphocytes % (Manual) Monocytes % (Manual) Nucleated RBC % Seg Neutrophils # Seg Neutrophils # Man Lymphocytes # (Manual) Percent Retic PT INR Fibrinogen ABG pH POC ABG pO2 ABG pO2 62.5 L ABG HCO3 26.6 H ABG O2 Saturation 91.7 L ABG Base Excess ABG Hemoglobin 8.4 L VBG pO2 Oxyhemoglobin 89.9 L Sodium Potassium Chloride Carbon Dioxide BUN Creatinine Glucose POC Glucose 156 H Lactic Acid Calcium Phosphorus Magnesium Iron TIBC Ferritin Alkaline Phosphatase Lactate Dehydrogenase Troponin T C-Reactive Protein Albumin LDL Cholesterol Direct 12/18/21 12/19/21 12/19/21 23:54 05:00 05:00 WBC 18.9 H RBC 3.29 L Hgb 8.4 L Hct 26.0 L MCH 26 L RDW 18.2 H Plt Count 34 L Lymph % (Auto) Lymph # (Auto) Seg Neutrophils % Seg Neuts % (Manual) 93.0 H Lymphocytes % (Manual) 2.0 L Monocytes % (Manual) Nucleated RBC % Seg Neutrophils # Seg Neutrophils # Man 17.6 H Lymphocytes # (Manual) 0.4 L Percent Retic PT INR Fibrinogen ABG pH POC ABG pO2 ABG pO2 ABG HCO3 ABG O2 Saturation ABG Base Excess ABG Hemoglobin VBG pO2 Oxyhemoglobin Sodium Potassium Chloride Carbon Dioxide BUN 30 H Creatinine 3.1 H Glucose 155 H POC Glucose 122 H Lactic Acid Calcium 8.2 L Phosphorus Magnesium Iron TIBC Ferritin Alkaline Phosphatase Lactate Dehydrogenase Troponin T C-Reactive Protein Albumin LDL Cholesterol Direct 12/19/21 12/19/21 12/19/21 05:29 11:41 17:48 WBC RBC Hgb Hct MCH RDW Plt Count Lymph % (Auto) Lymph # (Auto) Seg Neutrophils % Seg Neuts % (Manual) Lymphocytes % (Manual) Monocytes % (Manual) Nucleated RBC % Seg Neutrophils # Seg Neutrophils # Man Lymphocytes # (Manual) Percent Retic PT INR Fibrinogen ABG pH POC ABG pO2 ABG pO2 ABG HCO3 ABG O2 Saturation ABG Base Excess ABG Hemoglobin VBG pO2 Oxyhemoglobin Sodium Potassium Chloride Carbon Dioxide BUN Creatinine Glucose POC Glucose 153 H 164 H 113 H Lactic Acid Calcium Phosphorus Magnesium Iron TIBC Ferritin Alkaline Phosphatase Lactate Dehydrogenase Troponin T C-Reactive Protein Albumin LDL Cholesterol Direct 12/19/21 12/20/21 12/20/21 23:53 04:45 04:45 WBC 15.0 H RBC 3.39 L Hgb 8.4 L Hct 26.8 L MCH 25 L RDW 17.8 H Plt Count 36 L Lymph % (Auto) Lymph # (Auto) Seg Neutrophils % Seg Neuts % (Manual) Lymphocytes % (Manual) Monocytes % (Manual) Nucleated RBC % Seg Neutrophils # Seg Neutrophils # Man Lymphocytes # (Manual) Percent Retic PT INR Fibrinogen ABG pH POC ABG pO2 ABG pO2 ABG HCO3 ABG O2 Saturation ABG Base Excess ABG Hemoglobin VBG pO2 Oxyhemoglobin Sodium 135 L Potassium Chloride 96.1 L Carbon Dioxide BUN 48 H Creatinine 3.9 H Glucose 188 H POC Glucose 157 H Lactic Acid Calcium 8.1 L Phosphorus Magnesium Iron TIBC Ferritin Alkaline Phosphatase Lactate Dehydrogenase Troponin T C-Reactive Protein Albumin LDL Cholesterol Direct 12/20/21 12/20/21 12/20/21 05:07 11:13 16:35 WBC RBC Hgb Hct MCH RDW Plt Count Lymph % (Auto) Lymph # (Auto) Seg Neutrophils % Seg Neuts % (Manual) Lymphocytes % (Manual) Monocytes % (Manual) Nucleated RBC % Seg Neutrophils # Seg Neutrophils # Man Lymphocytes # (Manual) Percent Retic PT INR Fibrinogen ABG pH POC ABG pO2 ABG pO2 ABG HCO3 ABG O2 Saturation ABG Base Excess ABG Hemoglobin VBG pO2 Oxyhemoglobin Sodium Potassium Chloride Carbon Dioxide BUN Creatinine Glucose POC Glucose 169 H 198 H 198 H Lactic Acid Calcium Phosphorus Magnesium Iron TIBC Ferritin Alkaline Phosphatase Lactate Dehydrogenase Troponin T C-Reactive Protein Albumin LDL Cholesterol Direct 12/20/21 12/21/21 12/21/21 23:50 05:58 08:00 WBC 16.7 H RBC Hgb 9.3 L Hct 29.2 L MCH 25 L RDW 18.5 H Plt Count 62 L Lymph % (Auto) Lymph # (Auto) Seg Neutrophils % Seg Neuts % (Manual) Lymphocytes % (Manual) Monocytes % (Manual) Nucleated RBC % Seg Neutrophils # Seg Neutrophils # Man Lymphocytes # (Manual) Percent Retic PT INR Fibrinogen ABG pH POC ABG pO2 ABG pO2 ABG HCO3 ABG O2 Saturation ABG Base Excess ABG Hemoglobin VBG pO2 Oxyhemoglobin Sodium Potassium Chloride Carbon Dioxide BUN Creatinine Glucose POC Glucose 176 H 185 H Lactic Acid Calcium Phosphorus Magnesium Iron TIBC Ferritin Alkaline Phosphatase Lactate Dehydrogenase Troponin T C-Reactive Protein Albumin LDL Cholesterol Direct 12/21/21 12/21/21 12/21/21 08:35 08:35 10:20 WBC RBC Hgb Hct MCH RDW Plt Count Lymph % (Auto) Lymph # (Auto) Seg Neutrophils % Seg Neuts % (Manual) Lymphocytes % (Manual) Monocytes % (Manual) Nucleated RBC % Seg Neutrophils # Seg Neutrophils # Man Lymphocytes # (Manual) Percent Retic PT 16.4 H INR 1.18 H Fibrinogen ABG pH POC ABG pO2 126.1 H ABG pO2 ABG HCO3 ABG O2 Saturation ABG Base Excess ABG Hemoglobin 11.1 L VBG pO2 Oxyhemoglobin Sodium Potassium 3.5 L Chloride Carbon Dioxide BUN 36 H Creatinine 2.7 H Glucose 174 H POC Glucose Lactic Acid Calcium 8.3 L Phosphorus Magnesium Iron TIBC Ferritin Alkaline Phosphatase Lactate Dehydrogenase 249 H Troponin T C-Reactive Protein Albumin LDL Cholesterol Direct 12/21/21 12/21/21 12/21/21 11:18 17:14 18:00 WBC 20.2 H RBC Hgb 9.9 L Hct MCH 25 L RDW 18.0 H Plt Count 60 L Lymph % (Auto) Lymph # (Auto) Seg Neutrophils % Seg Neuts % (Manual) Lymphocytes % (Manual) Monocytes % (Manual) Nucleated RBC % Seg Neutrophils # Seg Neutrophils # Man Lymphocytes # (Manual) Percent Retic PT INR Fibrinogen ABG pH POC ABG pO2 ABG pO2 ABG HCO3 ABG O2 Saturation ABG Base Excess ABG Hemoglobin VBG pO2 Oxyhemoglobin Sodium Potassium Chloride Carbon Dioxide BUN Creatinine Glucose POC Glucose 181 H 222 H Lactic Acid Calcium Phosphorus Magnesium Iron TIBC Ferritin Alkaline Phosphatase Lactate Dehydrogenase Troponin T C-Reactive Protein Albumin LDL Cholesterol Direct 12/21/21 12/21/21 12/22/21 19:26 23:28 04:14 WBC 23.9 H RBC Hgb Hct MCH 25 L RDW 17.8 H Plt Count 68 L Lymph % (Auto) Lymph # (Auto) Seg Neutrophils % Seg Neuts % (Manual) Lymphocytes % (Manual) Monocytes % (Manual) Nucleated RBC % Seg Neutrophils # Seg Neutrophils # Man Lymphocytes # (Manual) Percent Retic PT INR Fibrinogen ABG pH POC ABG pO2 ABG pO2 ABG HCO3 ABG O2 Saturation ABG Base Excess ABG Hemoglobin VBG pO2 Oxyhemoglobin Sodium Potassium Chloride Carbon Dioxide BUN Creatinine Glucose POC Glucose 214 H 260 H Lactic Acid Calcium Phosphorus Magnesium Iron TIBC Ferritin Alkaline Phosphatase Lactate Dehydrogenase Troponin T C-Reactive Protein Albumin LDL Cholesterol Direct 12/22/21 12/22/21 12/22/21 04:14 05:28 11:12 WBC RBC Hgb Hct MCH RDW Plt Count Lymph % (Auto) Lymph # (Auto) Seg Neutrophils % Seg Neuts % (Manual) Lymphocytes % (Manual) Monocytes % (Manual) Nucleated RBC % Seg Neutrophils # Seg Neutrophils # Man Lymphocytes # (Manual) Percent Retic PT INR Fibrinogen ABG pH POC ABG pO2 ABG pO2 ABG HCO3 ABG O2 Saturation ABG Base Excess ABG Hemoglobin VBG pO2 Oxyhemoglobin Sodium 136 L Potassium 3.0 L Chloride Carbon Dioxide BUN 52 H Creatinine 3.5 H Glucose 202 H POC Glucose 223 H 191 H Lactic Acid Calcium 8.1 L Phosphorus Magnesium Iron TIBC Ferritin Alkaline Phosphatase Lactate Dehydrogenase Troponin T C-Reactive Protein Albumin LDL Cholesterol Direct 12/22/21 12/22/21 12/23/21 14:05 17:57 04:39 WBC 21.1 H RBC Hgb 10.0 L Hct MCH 26 L RDW 17.6 H Plt Count 79 L Lymph % (Auto) Lymph # (Auto) Seg Neutrophils % Seg Neuts % (Manual) Lymphocytes % (Manual) Monocytes % (Manual) Nucleated RBC % Seg Neutrophils # Seg Neutrophils # Man Lymphocytes # (Manual) Percent Retic PT 17.7 H INR 1.30 H Fibrinogen ABG pH POC ABG pO2 ABG pO2 ABG HCO3 ABG O2 Saturation ABG Base Excess ABG Hemoglobin VBG pO2 Oxyhemoglobin Sodium Potassium Chloride Carbon Dioxide BUN Creatinine Glucose POC Glucose 140 H Lactic Acid Calcium Phosphorus Magnesium Iron TIBC Ferritin Alkaline Phosphatase Lactate Dehydrogenase Troponin T C-Reactive Protein Albumin LDL Cholesterol Direct 12/23/21 12/23/21 04:39 05:11 WBC RBC Hgb Hct MCH RDW Plt Count Lymph % (Auto) Lymph # (Auto) Seg Neutrophils % Seg Neuts % (Manual) Lymphocytes % (Manual) Monocytes % (Manual) Nucleated RBC % Seg Neutrophils # Seg Neutrophils # Man Lymphocytes # (Manual) Percent Retic PT INR Fibrinogen ABG pH POC ABG pO2 ABG pO2 ABG HCO3 ABG O2 Saturation ABG Base Excess ABG Hemoglobin VBG pO2 Oxyhemoglobin Sodium 136 L Potassium Chloride Carbon Dioxide 19 L BUN 61 H Creatinine 4.5 H Glucose 113 H POC Glucose 109 H Lactic Acid Calcium 7.9 L Phosphorus 4.90 H Magnesium Iron TIBC Ferritin Alkaline Phosphatase Lactate Dehydrogenase Troponin T C-Reactive Protein Albumin LDL Cholesterol Direct Chest x-ray: image reviewed (none today) Allied health notes reviewed: nursing
--- NOTE | 2021-12-23 10:13 | Gastroenterology Progress Note ---
Assessment and Plan Acute rectal bleed in the setting of severe thrombocytopenia but the thrombocytopenia is improving Differential diagnosis includes AVMs, hemorrhoids, polyps, mass, etc. Given continued rectal bleeding, declining hgb, all despite improving platelets, Colonoscopy would be beneficial I tried calling the patient's daughter for consent, could not get through I spoke with ICU staff, they will try to contact the daughter so I can talk with her and get consent for a colonoscopy tomorrow In the meantime hold tube feeds in case can get consent for the procedure tomorrow GI will continue to follow with you - Patient Problems (1) Rectal bleeding Current Visit: Yes Status: Acute (2) Elevated troponin Current Visit: Yes Status: Acute (3) Syncope Current Visit: Yes Status: Acute (4) ESRD (end stage renal disease) on dialysis Current Visit: Yes Status: Chronic Subjective Date of service: 12/23/21 Principal diagnosis: Septic shock ; Bacteremia; ESRD on dialysis; AMS; NSTEMI; HTN; DM II Interval history: Hemoglobin trending down less than 1g though patient with More than 400 mL of diaz blood in her back from the rectal tube Objective - Constitutional Vitals: Temp Pulse Resp BP Pulse Ox 98.3 F 74 12 93/35 100 12/23/21 08:00 12/23/21 09:01 12/23/21 09:01 12/23/21 09:01 12/23/21 09:01 General appearance: other (intubated) - Cardiovascular Rhythm: regular - Gastrointestinal General gastrointestinal: Present: soft Rectal Exam: other (400+cc diaz blood in bag from rectal tube) - Labs CBC & Chem 7: 12/23/21 04:39 12/23/21 04:39 Labs: Laboratory Results - last 24 hr 12/22/21 12/22/21 12/22/21 11:12 14:05 14:05 WBC RBC Hgb 10.8 Hct 33.1 MCV MCH MCHC RDW Plt Count PT 17.7 H INR 1.30 H Sodium Potassium Chloride Carbon Dioxide Anion Gap BUN Creatinine Estimated GFR BUN/Creatinine Ratio Glucose POC Glucose 191 H Calcium Phosphorus Magnesium 12/22/21 12/22/21 12/22/21 17:57 20:55 22:56 WBC RBC Hgb 10.4 Hct 33.3 MCV MCH MCHC RDW Plt Count PT INR Sodium Potassium Chloride Carbon Dioxide Anion Gap BUN Creatinine Estimated GFR BUN/Creatinine Ratio Glucose POC Glucose 140 H 105 Calcium Phosphorus Magnesium 12/23/21 12/23/21 12/23/21 00:20 04:39 04:39 WBC 21.1 H RBC 3.94 Hgb 10.0 L Hct 31.2 MCV 79 MCH 26 L MCHC 32 RDW 17.6 H Plt Count 79 L PT INR Sodium 136 L Potassium 4.0 D Chloride 100.9 Carbon Dioxide 19 L Anion Gap 20 BUN 61 H Creatinine 4.5 H Estimated GFR 12 BUN/Creatinine Ratio 14 Glucose 113 H POC Glucose 84 Calcium 7.9 L Phosphorus 4.90 H Magnesium 1.90 12/23/21 05:11 WBC RBC Hgb Hct MCV MCH MCHC RDW Plt Count PT INR Sodium Potassium Chloride Carbon Dioxide Anion Gap BUN Creatinine Estimated GFR BUN/Creatinine Ratio Glucose POC Glucose 109 H Calcium Phosphorus Magnesium
--- NOTE | 2021-12-23 10:37 | Progress Note ---
<JONNATHAN TATUM - Last Filed: 12/23/21 16:22> Assessment and Plan Assessment and plan: This is a 66-year-old female with known past medical history of ESRD on HD, HTN, heart-attack, and GERD initially admitted to the floor s/p fall at home. Patient was transferred to the ICU due to septic shock /2 GPC bacteremia requiring vasopressor. Hospital Course to Date: 12/12: No acute events overnight, reports extreme pain in her right leg, denies chest pain or shortness of breath 12/13: No acute events overnight, patient tearful and complaining of right leg pain however she is refusing analgesic medication 12/14: Continues to have right leg pain, does not participate in interview 12/15: Patient transferred to the ICU for hypotension on Levophed drip however she was weaned off by morning and midodrine was increased due to borderline MAP. Blood cultures grew 11/17 gram-positive cocci with suspected right upper chest permacath source. Patient started on vancomycin and infectious disease consu lted. Plan for IR consult for permacath removal and assessment of aVF functioning. Possible temporary Vas-Cath placement for hemodialysis. Patient is encephalopathic likely secondary to sepsis. Continue current antibiotics and repeat 2D echo and blood cultures in the a.m. Right upper extremity swelling and pain noted and right upper extremity XR and Doppler ordered. 12/16: Patient noted to have blisters on left arm and RN asked to elevate and place cool compresses to site. AV fistula on left upper extremity access by hemodialysis nurse and hemodialysis ongoing. Vasopressin ordered in efforts to wean Levophed while on hemodialysis. Echocardiogram repeated. Blood cultures grew beta-hemolytic strep group B and antibiotics changed to ceftriaxone. Dobutamine drip discontinued. Remained sedated on fentanyl drip. 12/17: Thrombocytopenia worse today, unable to tolerate being off vasopressin, started on steroids, HIT assay ordered-discontinued. SCDs for now. [facility] will like to give normal saline 100 ml/hr for 2 L. 12/18: Wound care consult placed for right upper extremity, PSV trials today, weaning Levophed, dialysis planned for today. Hematology/oncology consulted yesterday who recommends twice daily Solu-Medrol. No acute events reported overnight. Patient will be started on IV iron 12/19: PSV today, mentation better and intermittently follows commands. Platelets stable. Reglan started for vomiting and will slowly increase TF. KUB with no acute process. 12/20: PSV today, mentation unchanged, CTH without acute findings, Platelets remains stable with no signs of bleeding, high residuals reported overnight and TF was off from approximately [id number]. TF resumed around 0400 at currently at 20/hr. RN to increase as tolerated. [facility] plans extubation Wednesday. HD today. Will keep femoral line for now in setting of low plts 12/21: Patient had moderate BM today with bright red and dark red blood->CBC pending, coags, LDH ordered, GI consulted and Dr. Lambert alerted. PSV again today. Patient is still intermittently following commands. 12/22: Remains on the vent, more somnolent this am. Patient also with persistent bloody stools, H&H remains stable, GI is also following. Will keep patient NPO for now, IV PPI, and serial H&H. Patient is tolerating PSV trial, However, intubation postpone due to increased lethargy and GIB. Awaiting on GI recommendations. 12/23: With persistent rectal bleeding, H&H and vital signs remain stable. GI is on the case, plan for possible colonoscopy tomorrow. Keep patient NPO, continue IV PPI and serial H&H. Hypoglycemic overnight, most likely due to NPO status, continue D10W for now. D/W CCM continue PSV trial, possible extubation tomorrow. Continue HD per Nephro Assessment and Plan #Septic Shock 2/ #GPC Bacteremia #Leukocytosis - Suspected source right upper chest Permacath, removed on 12/15 - Intial Blood cultures + beta-hemolytic strep group B in 4/4 bottles, repeat B.Cultures with NGTD - With persistent leukocytosis, afebrile - ID on consult, appreciated recommendations - Echo with no evidence of vegetation - Continue current IV Abx, Rocephin, per ID - Continue to F/U on B.cult - Daily CBC monitor - Plan to discontinue femoral CVC, once new access is established. off pressors but no further vascular access re: AV graft and Right arm wounds #Heart Failure with Reduced Ejection Fraction #Severe Cardiomyopathy #NSTEMI #H/o Hypertension #History of CAD - Cardiology consulted, assistance appreciated - went in septic shock 2/2 bacteremia- s/p dobutamine and vaspressors - Echocardiogram 4/10: EF 35-40% - Repeat Echo this admit shows LVEF 30 to 35%, no valvular vegetations - Continue aspirin 81 mg and Lipitor 80 mg p.o. 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 #S/p Fall at home - most likely due to severe sepsis - CT head with no acute intracranial process - Imagings with no evidence of fractures or any acute findings - On the vent, not on any sedations, but lethargic - Continue current IV abx per ID - Frequent reorientation - Avoid benzodiazepine to reduce the possibility of delirium - Prn analgesia for pain management - Maintenance of sleep-wake cycle - Aspiration/seizure precautions - Continue fall precautions - Physical therapy eval ordered #Acute on Chronic Hypoxic Respiratory Failure - most likely due to fluid overload/sepsis shock - Decompensated on 12/15 was emergently intubated - Vent setting:PRVC-30%,6,12,450 - AM ABG noted - CCM consulted, appreciate recommendations - Continue HD per Nephro and IV Abx per ID - VAP bundle addressed - Aspiration precaution HOB above 30 - Daily SBT and SAT trials as tolerated - PRN ABG and CXR - Continue SPO2 monitoring for SPO2 goal above 92% - Possible extubation tomorrow #ESRD (End Stage Renal Disease) on HD - Nephrology on consult, appreciated recommendation - BRICE AV-fistula is functioning, patient tolerating HD - Continue HD per Nephro - Strict intake and output - Avoid nephrotoxic medications; Renally dose medications - Monitor and replace electrolytes as needed #Extravasation of RUE #Sacral Wounds - RUE extravasation of RUE- possibly levophed- Antidote not available - RUE doppler negative DVT - WOCN consult- continue dressing changes per nursing - PRN analgesia for pain management #Normocytic Anemia, chronic #Thrombocytopenia, chronic #Acute GI Bleed - Acute bloody stools since 12/21, probably due to low plt - H&H remains stable, Platelet count is improving - HIT panel pending - GI on consult - Possible colonoscopy tomorrow - Keep patient NPO, continue IV PPI and trend H&H - Continue to hold AC for now - Hematology is also following - Monitor for s/s of any active bleeding - Transfuse 1 unit of plts whenever plt count <20 - Transfuse for hemoglobin less than 7 #Type 2 Diabetes Mellitus # Multi-nodular thyroid gland - Episode of hypoglycemia overnight, most likely due to NPO status - Continue D10W gtt while NPO - Continue BG check and SSI - Continue Hypoglycemic Protocol - Avoid Hypoglycemia - Multinodular thyroid gland noted on CT head - Possible thyroid US when more stable vs outpatient #GI/DVT Prophylaxis - PPI- IV Protonix - SCDs to bilateral lower extremities while in bed The high probability of a clinically significant, sudden or life threatening deterioration of the [multiple] system(s) required my full and direct attention, intervention and personal management. The aggregate critical care time was [60] minutes. This time is in addition to time spent performing reported procedures but includes the following: [x] Data Review and interpretation [x] Patient assessment and monitoring of vital signs [x] Documentation [x] Medication orders and management Disposition Plan: ICU Total Time Spent with Patient (Minutes): 60 History Interval history: Patient seen and examined at the bedside. Remains on the vent, not on any sedation. Lethargic but arousable, following commands. Rectal bleeding still noted this am, H&H and vital signs remain stable. Hypoglycemic overnight, now on D10W. No significant event overnight Hospitalist Physical - Physical exam Narrative exam: General appearance: Present: no acute distress, other (On the vent., arousable, following commands) - EENT Eyes: Present: PERRL - Neck Neck: Present: normal ROM - Respiratory Respiratory effort: normal Respiratory: bilateral: diminished - Cardiovascular Rhythm: regular Heart Sounds: Present: S1 & S2 - Extremities Extremities: abnormal (RUE extravasation) Extremity abnormal: edema - Peripheral Assessment Bilateral Upper Extremity Edema Type: Pitting Edema Degree: 3+ Capillary Refill: < 3 seconds Skin Temperature: Warm Peripheral Pulses: within normal limits - Abdominal General gastrointestinal: soft, non-distended, normal bowel sounds - Integumentary Integumentary: Present: warm, dry - Psychiatric Psychiatric: other (Lethargic, arousable & following commands. Remains on the vent) - Neurologic Neurologic: other (Lethargic, arousable & following commands. Remains on the vent) - Allied Health Allied health notes reviewed: nursing, case management - Constitutional Vitals: Temp Pulse Resp BP Pulse Ox 98.3 F 74 12 93/35 100 12/23/21 08:00 12/23/21 09:01 12/23/21 09:01 12/23/21 09:01 12/23/21 09:01 HEART Score - HEART Score Troponin: Troponin T 0.175 ng/mL (0.00-0.029) H* 12/12/21 04:43 Results - Labs CBC & Chem 7: 12/23/21 14:05 12/23/21 04:39 Labs: Laboratory Last Values WBC 21.1 K/mm3 (4.5-11.0) H 12/23/21 04:39 RBC 3.94 M/mm3 (3.65-5.03) 12/23/21 04:39 Hgb 10.0 gm/dl (10.1-14.3) L 12/23/21 04:39 Hct 31.2 % (30.3-42.9) 12/23/21 04:39 MCV 79 fl (79-97) 12/23/21 04:39 MCH 26 pg (28-32) L 12/23/21 04:39 MCHC 32 % (30-34) 12/23/21 04:39 RDW 17.6 % (13.2-15.2) H 12/23/21 04:39 Plt Count 79 K/mm3 (140-440) L 12/23/21 04:39 Lymph % (Auto) 5.9 % (13.4-35.0) L 12/17/21 04:00 [place] % (Auto) 4.6 % (0.0-7.3) 12/17/21 04:00 Eos % (Auto) 0.4 % (0.0-4.3) 12/17/21 04:00 Baso % (Auto) 0.8 % (0.0-1.8) 12/17/21 04:00 Lymph # (Auto) 0.7 K/mm3 (1.2-5.4) L 12/17/21 04:00 [place] # (Auto) 0.6 K/mm3 (0.0-0.8) 12/17/21 04:00 Eos # (Auto) 0.0 K/mm3 (0.0-0.4) 12/17/21 04:00 Baso # (Auto) 0.1 K/mm3 (0.0-0.1) 12/17/21 04:00 Add Manual Diff Complete 12/18/21 05:00 Total Counted 100 12/19/21 05:00 Seg Neutrophils % Clinic Coordinator 12/19/21 05:00 Seg Neuts % (Manual) 93.0 % (40.0-70.0) H 12/19/21 05:00 Band Neutrophils % 2.0 % 12/19/21 05:00 Lymphocytes % (Manual) 2.0 % (13.4-35.0) L 12/19/21 05:00 Reactive Lymphs % (Man) 0 % 12/19/21 05:00 Monocytes % (Manual) 1.0 % (0.0-7.3) 12/19/21 05:00 Eosinophils % (Manual) 0 % (0.0-4.3) 12/19/21 05:00 Basophils % (Manual) 0 % (0.0-1.8) 12/19/21 05:00 Metamyelocytes % 2.0 % 12/19/21 05:00 Myelocytes % 0 % 12/19/21 05:00 Promyelocytes % 0 % 12/19/21 05:00 Blast Cells % 0 % 12/19/21 05:00 Nucleated RBC % Not Reportable 12/19/21 05:00 Seg Neutrophils # 10.9 K/mm3 (1.8-7.7) H 12/17/21 04:00 Seg Neutrophils # Man 17.6 K/mm3 (1.8-7.7) H 12/19/21 05:00 Band Neutrophils # 0.4 K/mm3 12/19/21 05:00 Lymphocytes # (Manual) 0.4 K/mm3 (1.2-5.4) L 12/19/21 05:00 Abs React Lymphs (Man) 0.0 K/mm3 12/19/21 05:00 Monocytes # (Manual) 0.2 K/mm3 (0.0-0.8) 12/19/21 05:00 Eosinophils # (Manual) 0.0 K/mm3 (0.0-0.4) 12/19/21 05:00 Basophils # (Manual) 0.0 K/mm3 (0.0-0.1) 12/19/21 05:00 Metamyelocytes # 0.4 K/mm3 12/19/21 05:00 Myelocytes # 0.0 K/mm3 12/19/21 05:00 Promyelocytes # 0.0 K/mm3 12/19/21 05:00 Blast Cells # 0.0 K/mm3 12/19/21 05:00 WBC Morphology Not Reportable 12/19/21 05:00 Hypersegmented Neuts Not Reportable 12/19/21 05:00 Hyposegmented Neuts 1+ 12/19/21 05:00 Hypogranular Neuts Not Reportable 12/19/21 05:00 Smudge Cells Not Reportable 12/19/21 05:00 Toxic Granulation Not Reportable 12/19/21 05:00 Toxic Vacuolation Not Reportable 12/19/21 05:00 Dohle Bodies Not Reportable 12/19/21 05:00 Pelger-Huet Anomaly Not Reportable 12/19/21 05:00 Charles Rods Not Reportable 12/19/21 05:00 Platelet Estimate Consistent w auto 12/19/21 05:00 Clumped Platelets Not Reportable 12/19/21 05:00 Plt Clumps, EDTA Not Reportable 12/19/21 05:00 Large Platelets Not Reportable 12/19/21 05:00 Giant Platelets Not Reportable 12/19/21 05:00 Platelet Satelliting Not Reportable 12/19/21 05:00 Plt Morphology Comment Not Reportable 12/19/21 05:00 RBC Morphology Not Reportable 12/19/21 05:00 Dimorphic RBCs Not Reportable 12/19/21 05:00 Polychromasia Not Reportable 12/19/21 05:00 Hypochromasia 1+ 12/19/21 05:00 Poikilocytosis Few 12/19/21 05:00 Anisocytosis Few 12/19/21 05:00 Microcytosis Not Reportable 12/19/21 05:00 Macrocytosis Not Reportable 12/19/21 05:00 Spherocytes Not Reportable 12/19/21 05:00 Pappenheimer Bodies Not Reportable 12/19/21 05:00 Sickle Cells Not Reportable 12/19/21 05:00 Target Cells Rare 12/19/21 05:00 Tear Drop Cells Not Reportable 12/19/21 05:00 Ovalocytes Rare 12/19/21 05:00 Helmet Cells Not Reportable 12/19/21 05:00 [place] Bodies Not Reportable 12/19/21 05:00 Hoskins Rings Not Reportable 12/19/21 05:00 [place] Cells Not Reportable 12/19/21 05:00 Bite Cells Not Reportable 12/19/21 05:00 Crenated Cell Not Reportable 12/19/21 05:00 Elliptocytes Not Reportable 12/19/21 05:00 Acanthocytes (Spur) Not Reportable 12/19/21 05:00 Rouleaux Rare 12/19/21 05:00 Hemoglobin C Crystals Not Reportable 12/19/21 05:00 Schistocytes Rare 12/19/21 05:00 Malaria parasites Not Reportable 12/19/21 05:00 Percent Retic 0.37 % (0.78-2.58) L 12/18/21 05:00 Bryson Bodies Not Reportable 12/19/21 05:00 Haptoglobin 193 mg/dL (43-212) 12/18/21 05:00 Hem Pathologist Commnt Not Reportable 12/19/21 05:00 PT 17.7 Sec. (12.2-14.9) H 12/22/21 14:05 INR 1.30 (0.87-1.13) H 12/22/21 14:05 Fibrinogen 351 mg/dl (211-480) 12/21/21 08:35 Heparin Anti-Xa, Unfract Negative (Negative) 12/17/21 09:30 ABG pH 7.448 (7.320-7.450) 12/21/21 10:20 POC ABG pCO2 36.0 mmHg (32.0-48.0) 12/21/21 10:20 ABG pCO2 45.6 mm Hg 12/18/21 20:00 POC ABG pO2 126.1 mmHg (83-108) H 12/21/21 10:20 ABG pO2 62.5 mm Hg (80.0-90.0) L 12/18/21 20:00 POC ABG HCO3 24.3 12/21/21 10:20 ABG HCO3 26.6 mmol/L (20.0-26.0) H 12/18/21 20:00 ABG O2 Saturation 98.6 (0-100) 12/21/21 10:20 ABG O2 Content 10.7 (0.0-44) 12/18/21 20:00 POC ABG Base Excess 0.6 12/21/21 10:20 ABG Base Excess 1.3 mmol/L (-2.0-3.0) 12/18/21 20:00 ABG Hemoglobin 11.1 (12.0-17.5) L 12/21/21 10:20 ABG Oxyhemoglobin 97.4 (94-98) 12/21/21 10:20 ABG Carboxyhemoglobin 1.7 % (0.0-5.0) 12/18/21 20:00 ABG Methemoglobin 0.3 (0.0-1.5) 12/21/21 10:20 ABG Sodium Not Reportable 12/21/21 10:20 ABG Potassium Not Reportable 12/21/21 10:20 ABG Chloride Not Reportable 12/21/21 10:20 ABG Glucose Not Reportable 12/21/21 10:20 VBG pO2 > 258.0 (25.0-47.0) H 12/15/21 19:50 Oxyhemoglobin 89.9 % (95.0-99.0) L 12/18/21 20:00 Carboxyhemoglobin 0.9 (0.5-1.5) 12/21/21 10:20 FiO2 30 % 12/18/21 20:00 FiO2 % 30.0 12/21/21 10:20 Sodium 136 mmol/L (137-145) L 12/23/21 04:39 Potassium 4.0 mmol/L (3.6-5.0) D 12/23/21 04:39 Chloride 100.9 mmol/L (98-107) 12/23/21 04:39 Carbon Dioxide 19 mmol/L (22-30) L 12/23/21 04:39 Anion Gap 20 mmol/L 12/23/21 04:39 BUN 61 mg/dL (7-17) H 12/23/21 04:39 Creatinine 4.5 mg/dL (0.6-1.2) H 12/23/21 04:39 Estimated GFR 12 ml/min 12/23/21 04:39 BUN/Creatinine Ratio 14 % 12/23/21 04:39 Glucose 113 mg/dL (65-100) H 12/23/21 04:39 POC Glucose 109 mg/dL (70-105) H 12/23/21 05:11 Lactic Acid 1.90 mmol/L (0.7-2.0) 12/16/21 05:00 Calcium 7.9 mg/dL (8.4-10.2) L 12/23/21 04:39 Phosphorus 4.90 mg/dL (2.5-4.5) H 12/23/21 04:39 Magnesium 1.90 mg/dL (1.7-2.3) 12/23/21 04:39 Iron 13 ug/dL (37-170) L 12/18/21 05:00 TIBC 109 mcg/dL (250-450) L 12/18/21 05:00 Ferritin 383.4 ng/mL (10.0-200.0) H 12/18/21 05:00 Total Bilirubin 0.60 mg/dL (0.1-1.2) 12/11/21 15:40 AST 22 units/L (5-40) 12/11/21 15:40 ALT 13 units/L (7-56) 12/11/21 15:40 Alkaline Phosphatase 237 units/L (35-129) H 12/11/21 15:40 Lactate Dehydrogenase 249 units/L (91-180) H 12/21/21 08:35 Troponin T 0.175 ng/mL (0.00-0.029) H* 12/12/21 04:43 C-Reactive Protein 38.50 mg/dL (0.00-1.30) H 12/15/21 14:40 Total Protein 7.4 g/dL (6.3-8.2) 12/11/21 15:40 Albumin 3.6 g/dL (3.9-5) L 12/11/21 15:40 Albumin/Globulin Ratio 0.9 % 12/11/21 15:40 Triglycerides 92 mg/dL (2-149) 12/11/21 15:40 Cholesterol 72 mg/dL (50-199) 12/11/21 15:40 LDL Cholesterol Direct 16 mg/dL (50-130) L 12/11/21 15:40 HDL Cholesterol 41 mg/dL (40-59) 12/11/21 15:40 Cholesterol/HDL Ratio 1.75 % 12/11/21 15:40 Procalcitonin 46.16 ng/mL (<0.15) 12/15/21 04:11 Arterial Blood Glucose Not Reportable 12/21/21 10:20 Random Vancomycin 15.6 ug/mL (0-40.0) 12/16/21 05:00 Heparin-induced Plt Ab Negative (Negative) 12/17/21 09:30 UF Heparin High Dose 1 % Release 12/17/21 09:30 JAMILAH UFH Low Dose 0.1 0 % Release 12/17/21 09:30 JAMILAH UFH Low Dose 0.5 0 % Release 12/17/21 09:30 Blood Type O POSITIVE 12/17/21 09:30 Antibody Screen Negative 12/17/21 09:30 Active Medications - Current Medications Current Medications: Generic Name Dose Route Start Last Admin Trade Name Freq PRN Reason Stop Dose Admin Acetaminophen 650 mg 12/13/21 23:00 12/13/21 23:18 Acetaminophen 650 Mg Rect Supp CO 650 mg Q4H PRN Administration Pain, Mild (1-3) Albuterol 2.5 mg 12/11/21 22:14 Albuterol 2.5 Mg/3 Ml Nebu IH Q6HR PRN Wheezing Albuterol/Ipratropium 1 ampul 12/14/21 08:00 12/23/21 08:11 Ipratropium/Albuterol Sulfate 3 Ml Ampul.Neb IH 1 ampul TIDRT KRISTA Administration Lipase/Protease/Amylase 1 each 12/16/21 11:15 Lipase 10,500/Protease 25,000/Amylase 43,750 (Units) Dr Blanco FEEDTUBE PRN PRN For Clogged Feeding Tube Aspirin 81 mg 12/15/21 10:00 12/23/21 09:33 Aspirin 81 Mg Tab Chew FEEDTUBE 81 mg QDAY KRISTA Administration Atorvastatin Calcium 80 mg 12/15/21 22:00 12/22/21 21:03 Atorvastatin 40 Mg Tab FEEDTUBE 80 mg QHS KRISTA Administration Budesonide 0.5 mg 12/13/21 08:00 12/23/21 09:15 Budesonide 0.5 Mg/2 Ml Nebu IH 0.5 mg Q12HRT KRISTA Administration Dextrose 50 ml 12/11/21 22:23 12/16/21 06:24 Dextrose 50% In Water (25gm) 50 Ml Syringe IV 15 ml Q30MIN PRN Administration Hypoglycemia Protocol Hydrophilic Ointment 1 applic 12/16/21 14:30 Lip Therapy Vaseline TP Q2HR PRN Dry Lips Sodium Chloride 100 mls @ 999 mls/hr 12/12/21 12:00 Nacl 0.9% IV ABEL PRN Hypotension Ceftriaxone Sodium 2 gm in 100 mls @ 200 mls/hr 12/16/21 15:00 12/22/21 16:45 Rocephin/Ns 2 Gm/100 Ml IV 12/29/21 15:29 200 mls/hr Q24H KRISTA Administration Protocol Dextrose 1,000 mls @ 25 mls/hr 12/23/21 01:00 12/23/21 00:38 D10w IV 25 mls/hr DIRECT KRISTA Administration Insulin Human Lispro 0 unit 12/15/21 12:00 12/23/21 05:28 Insulin Lispro 100 Unit/Ml SUB-Q Not Given Q6HR [facility] Protocol Levetiracetam 500 mg 12/16/21 18:00 12/20/21 17:50 Levetiracetam 500 Mg/5 Ml Oral Liqd FEEDTUBE 500 mg TuThSa KRISTA Administration Midodrine 10 mg 12/15/21 12:00 12/23/21 09:33 Midodrine 10 Mg Tab FEEDTUBE 10 mg TID@0800,1200,1600 KRISTA Administration Morphine Sulfate 2 mg 12/11/21 22:11 Morphine 4 Mg/1 Ml Inj IV Q5MIN PRN Chest Pain unrelieved by NTG Multi-Ingred Cream/Lotion/Oil/Oint 1 applic 12/16/21 14:10 Mineral Oil/Petrolatum, White Ophth Oint 3.5 Gm OU Q4HR PRN Dry Eye(s) Nitroglycerin 0.4 mg 12/11/21 22:11 Nitroglycerin 0.4 Mg Tab Subl SL Q5M PRN Chest Pain Pantoprazole Sodium 40 mg 12/22/21 22:00 12/23/21 09:33 Pantoprazole 40 Mg Inj IV 40 mg BID KRISTA Administration Senna/Docusate Sodium 1 tab 12/16/21 22:00 12/23/21 09:18 Sennosides/Docusate Sodium 8.6/50 Mg Tab FEEDTUBE Not Given BID KRISTA Simple Syrup 15 ml 12/16/21 11:15 Simple Syrup 15 Ml FEEDTUBE PRN PRN Hypoglycemia Simple Syrup 30 ml 12/16/21 11:15 Simple Syrup 15 Ml FEEDTUBE PRN PRN Hypoglycemia Sodium Bicarbonate 325 mg 12/16/21 11:15 Sodium Bicarbonate 325 Mg Tab FEEDTUBE PRN PRN For Clogged Feeding Tube Sodium Chloride 10 ml 12/11/21 22:11 12/22/21 09:17 Sodium Chloride 0.9% 10 Ml Flush Syringe IV 10 ml PRN PRN Administration LINE FLUSH Nutrition/Malnutrition Assess - Dietary Evaluation Nutrition/Malnutrition Findings: Nutrition Notes Start: 12/12/21 11:57 Freq: Status: Active Protocol: Document 12/22/21 14:20 [facility] (Rec: 12/22/21 14:29 [facility] [id number]) Nutrition Notes Initial or Follow up Reassessment Current Diagnosis CKD (stage V CKD),Coronary Artery Disease,Sepsis, Hypertension,Heart Failure, Respiratory Failure Other Pertinent Diagnosis Rectal bleeding, syncope, s/p fall, (R) hip pain Current Diet TF - Nepro at 30ml/hr Labs/Tests Na 136 K 3 BG 202 BUN 52 Cr 3.5 Pertinent Medications Lantus, Reglan, Protonix, Senokot Height 4 ft 11 in Weight 61.9 kg [place] Body Weight (kg) 43.18 BMI 27.6 Weight Status Overweight Subjective/Other Information TF off at time of visit (12:49 ). Per RN, TF off sec to GIB. Per GI, continue close clinical monitoring and trending of Hgb. Pt remains on vent support. Burn Absent Trauma Absent #1 Nutrition Diagnosis Inadequate oral intake Diagnosis Progress(for reassessment Continues documentation) Is patient on ventilator? Yes Is Patient Ambulatory and/or Out of Bed No REE-([place] Jeor-confined to bed) [phone] Calculation Used for Recommendations [place] Je[place] Additional Notes Protein >1.2g/kg: >74g/day Fluids: 1-1.5 L/day. Nutrition Intervention Nutrition Support: Resume TF when medically feasible Goal #1 Resume TF to meet nutrient needs Follow-Up By: 12/24/21 Additional Comments F/U: TF restart, vent status, renal function, GIB <AUSTIN STARR - Last Filed: 12/24/21 07:13> Assessment and Plan Assessment and plan: I saw and evaluated the patient. I agree with the findings and the plan of care as documented in the Nurse Practitioner's~note, with the following corrections and additions. Hospitalist Physical - Constitutional Vitals: Temp Pulse Resp BP Pulse Ox 98.3 F 81 12 166/73 100 12/24/21 03:43 12/24/21 05:00 12/24/21 05:00 12/24/21 05:00 12/24/21 05:00 HEART Score - HEART Score Troponin: Troponin T 0.175 ng/mL (0.00-0.029) H* 12/12/21 04:43 Results - Labs CBC & Chem 7: 12/24/21 06:00 12/24/21 06:00 Labs: Laboratory Last Values WBC 16.8 K/mm3 (4.5-11.0) H 12/24/21 06:00 RBC 2.96 M/mm3 (3.65-5.03) L 12/24/21 06:00 Hgb 7.5 gm/dl (10.1-14.3) L 12/24/21 06:00 Hct 23.3 % (30.3-42.9) L 12/24/21 06:00 MCV 79 fl (79-97) 12/24/21 06:00 MCH 26 pg (28-32) L 12/24/21 06:00 MCHC 32 % (30-34) 12/24/21 06:00 RDW 17.8 % (13.2-15.2) H 12/24/21 06:00 Plt Count 89 K/mm3 (140-440) L 12/24/21 06:00 Lymph % (Auto) 5.9 % (13.4-35.0) L 12/17/21 04:00 [place] % (Auto) 4.6 % (0.0-7.3) 12/17/21 04:00 Eos % (Auto) 0.4 % (0.0-4.3) 12/17/21 04:00 Baso % (Auto) 0.8 % (0.0-1.8) 12/17/21 04:00 Lymph # (Auto) 0.7 K/mm3 (1.2-5.4) L 12/17/21 04:00 [place] # (Auto) 0.6 K/mm3 (0.0-0.8) 12/17/21 04:00 Eos # (Auto) 0.0 K/mm3 (0.0-0.4) 12/17/21 04:00 Baso # (Auto) 0.1 K/mm3 (0.0-0.1) 12/17/21 04:00 Add Manual Diff Complete 12/18/21 05:00 Total Counted 100 12/19/21 05:00 Seg Neutrophils % Clinic Coordinator 12/19/21 05:00 Seg Neuts % (Manual) 93.0 % (40.0-70.0) H 12/19/21 05:00 Band Neutrophils % 2.0 % 12/19/21 05:00 Lymphocytes % (Manual) 2.0 % (13.4-35.0) L 12/19/21 05:00 Reactive Lymphs % (Man) 0 % 12/19/21 05:00 Monocytes % (Manual) 1.0 % (0.0-7.3) 12/19/21 05:00 Eosinophils % (Manual) 0 % (0.0-4.3) 12/19/21 05:00 Basophils % (Manual) 0 % (0.0-1.8) 12/19/21 05:00 Metamyelocytes % 2.0 % 12/19/21 05:00 Myelocytes % 0 % 12/19/21 05:00 Promyelocytes % 0 % 12/19/21 05:00 Blast Cells % 0 % 12/19/21 05:00 Nucleated RBC % Not Reportable 12/19/21 05:00 Seg Neutrophils # 10.9 K/mm3 (1.8-7.7) H 12/17/21 04:00 Seg Neutrophils # Man 17.6 K/mm3 (1.8-7.7) H 12/19/21 05:00 Band Neutrophils # 0.4 K/mm3 12/19/21 05:00 Lymphocytes # (Manual) 0.4 K/mm3 (1.2-5.4) L 12/19/21 05:00 Abs React Lymphs (Man) 0.0 K/mm3 12/19/21 05:00 Monocytes # (Manual) 0.2 K/mm3 (0.0-0.8) 12/19/21 05:00 Eosinophils # (Manual) 0.0 K/mm3 (0.0-0.4) 12/19/21 05:00 Basophils # (Manual) 0.0 K/mm3 (0.0-0.1) 12/19/21 05:00 Metamyelocytes # 0.4 K/mm3 12/19/21 05:00 Myelocytes # 0.0 K/mm3 12/19/21 05:00 Promyelocytes # 0.0 K/mm3 12/19/21 05:00 Blast Cells # 0.0 K/mm3 12/19/21 05:00 WBC Morphology Not Reportable 12/19/21 05:00 Hypersegmented Neuts Not Reportable 12/19/21 05:00 Hyposegmented Neuts 1+ 12/19/21 05:00 Hypogranular Neuts Not Reportable 12/19/21 05:00 Smudge Cells Not Reportable 12/19/21 05:00 Toxic Granulation Not Reportable 12/19/21 05:00 Toxic Vacuolation Not Reportable 12/19/21 05:00 Dohle Bodies Not Reportable 12/19/21 05:00 Pelger-Huet Anomaly Not Reportable 12/19/21 05:00 Charles Rods Not Reportable 12/19/21 05:00 Platelet Estimate Consistent w auto 12/19/21 05:00 Clumped Platelets Not Reportable 12/19/21 05:00 Plt Clumps, EDTA Not Reportable 12/19/21 05:00 Large Platelets Not Reportable 12/19/21 05:00 Giant Platelets Not Reportable 12/19/21 05:00 Platelet Satelliting Not Reportable 12/19/21 05:00 Plt Morphology Comment Not Reportable 12/19/21 05:00 RBC Morphology Not Reportable 12/19/21 05:00 Dimorphic RBCs Not Reportable 12/19/21 05:00 Polychromasia Not Reportable 12/19/21 05:00 Hypochromasia 1+ 12/19/21 05:00 Poikilocytosis Few 12/19/21 05:00 Anisocytosis Few 12/19/21 05:00 Microcytosis Not Reportable 12/19/21 05:00 Macrocytosis Not Reportable 12/19/21 05:00 Spherocytes Not Reportable 12/19/21 05:00 Pappenheimer Bodies Not Reportable 12/19/21 05:00 Sickle Cells Not Reportable 12/19/21 05:00 Target Cells Rare 12/19/21 05:00 Tear Drop Cells Not Reportable 12/19/21 05:00 Ovalocytes Rare 12/19/21 05:00 Helmet Cells Not Reportable 12/19/21 05:00 Murphy-[place] Cane Bodies Not Reportable 12/19/21 05:00 Hoskins Rings Not Reportable 12/19/21 05:00 [place] Cells Not Reportable 12/19/21 05:00 Bite Cells Not Reportable 12/19/21 05:00 Crenated Cell Not Reportable 12/19/21 05:00 Elliptocytes Not Reportable 12/19/21 05:00 Acanthocytes (Spur) Not Reportable 12/19/21 05:00 Rouleaux Rare 12/19/21 05:00 Hemoglobin C Crystals Not Reportable 12/19/21 05:00 Schistocytes Rare 12/19/21 05:00 Malaria parasites Not Reportable 12/19/21 05:00 Percent Retic 0.37 % (0.78-2.58) L 12/18/21 05:00 Bryson Bodies Not Reportable 12/19/21 05:00 Haptoglobin 193 mg/dL (43-212) 12/18/21 05:00 Hem Pathologist Commnt Not Reportable 12/19/21 05:00 PT 17.7 Sec. (12.2-14.9) H 12/22/21 14:05 INR 1.30 (0.87-1.13) H 12/22/21 14:05 Fibrinogen 351 mg/dl (211-480) 12/21/21 08:35 Heparin Anti-Xa, Unfract Negative (Negative) 12/17/21 09:30 ABG pH 7.448 (7.320-7.450) 12/21/21 10:20 POC ABG pCO2 36.0 mmHg (32.0-48.0) 12/21/21 10:20 ABG pCO2 45.6 mm Hg 12/18/21 20:00 POC ABG pO2 126.1 mmHg (83-108) H 12/21/21 10:20 ABG pO2 62.5 mm Hg (80.0-90.0) L 12/18/21 20:00 POC ABG HCO3 24.3 12/21/21 10:20 ABG HCO3 26.6 mmol/L (20.0-26.0) H 12/18/21 20:00 ABG O2 Saturation 98.6 (0-100) 12/21/21 10:20 ABG O2 Content 10.7 (0.0-44) 12/18/21 20:00 POC ABG Base Excess 0.6 12/21/21 10:20 ABG Base Excess 1.3 mmol/L (-2.0-3.0) 12/18/21 20:00 ABG Hemoglobin 11.1 (12.0-17.5) L 12/21/21 10:20 ABG Oxyhemoglobin 97.4 (94-98) 12/21/21 10:20 ABG Carboxyhemoglobin 1.7 % (0.0-5.0) 12/18/21 20:00 ABG Methemoglobin 0.3 (0.0-1.5) 12/21/21 10:20 ABG Sodium Not Reportable 12/21/21 10:20 ABG Potassium Not Reportable 12/21/21 10:20 ABG Chloride Not Reportable 12/21/21 10:20 ABG Glucose Not Reportable 12/21/21 10:20 VBG pO2 > 258.0 (25.0-47.0) H 12/15/21 19:50 Oxyhemoglobin 89.9 % (95.0-99.0) L 12/18/21 20:00 Carboxyhemoglobin 0.9 (0.5-1.5) 12/21/21 10:20 FiO2 30 % 12/18/21 20:00 FiO2 % 30.0 12/21/21 10:20 Sodium 137 mmol/L (137-145) 12/24/21 06:00 Potassium 3.3 mmol/L (3.6-5.0) L 12/24/21 06:00 Chloride 97.3 mmol/L (98-107) L 12/24/21 06:00 Carbon Dioxide 25 mmol/L (22-30) 12/24/21 06:00 Anion Gap 18 mmol/L 12/24/21 06:00 BUN 31 mg/dL (7-17) H 12/24/21 06:00 Creatinine 2.8 mg/dL (0.6-1.2) H 12/24/21 06:00 Estimated GFR 21 ml/min 12/24/21 06:00 BUN/Creatinine Ratio 11 % 12/24/21 06:00 Glucose 208 mg/dL (65-100) H 12/24/21 06:00 POC Glucose 199 mg/dL (70-105) H 12/24/21 03:45 Lactic Acid 1.90 mmol/L (0.7-2.0) 12/16/21 05:00 Calcium 7.6 mg/dL (8.4-10.2) L 12/24/21 06:00 Phosphorus 4.90 mg/dL (2.5-4.5) H 12/23/21 04:39 Magnesium 1.90 mg/dL (1.7-2.3) 12/23/21 04:39 Iron 13 ug/dL (37-170) L 12/18/21 05:00 TIBC 109 mcg/dL (250-450) L 12/18/21 05:00 Ferritin 383.4 ng/mL (10.0-200.0) H 12/18/21 05:00 Total Bilirubin 0.60 mg/dL (0.1-1.2) 12/11/21 15:40 AST 22 units/L (5-40) 12/11/21 15:40 ALT 13 units/L (7-56) 12/11/21 15:40 Alkaline Phosphatase 237 units/L (35-129) H 12/11/21 15:40 Lactate Dehydrogenase 249 units/L (91-180) H 12/21/21 08:35 Troponin T 0.175 ng/mL (0.00-0.029) H* 12/12/21 04:43 C-Reactive Protein 38.50 mg/dL (0.00-1.30) H 12/15/21 14:40 Total Protein 7.4 g/dL (6.3-8.2) 12/11/21 15:40 Albumin 3.6 g/dL (3.9-5) L 12/11/21 15:40 Albumin/Globulin Ratio 0.9 % 12/11/21 15:40 Triglycerides 92 mg/dL (2-149) 12/11/21 15:40 Cholesterol 72 mg/dL (50-199) 12/11/21 15:40 LDL Cholesterol Direct 16 mg/dL (50-130) L 12/11/21 15:40 HDL Cholesterol 41 mg/dL (40-59) 12/11/21 15:40 Cholesterol/HDL Ratio 1.75 % 12/11/21 15:40 Serotonin Release Assay See scanned result 12/17/21 09:30 Procalcitonin 46.16 ng/mL (<0.15) 12/15/21 04:11 Arterial Blood Glucose Not Reportable 12/21/21 10:20 Random Vancomycin 15.6 ug/mL (0-40.0) 12/16/21 05:00 Heparin-induced Plt Ab Negative (Negative) 12/17/21 09:30 UF Heparin High Dose 1 % Release 12/17/21 09:30 JAMILAH UFH Low Dose 0.1 0 % Release 12/17/21 09:30 JAMILAH UFH Low Dose 0.5 0 % Release 12/17/21 09:30 Blood Type O POSITIVE 12/23/21 16:20 Antibody Screen Negative 12/23/21 16:20 Johnson/IV: Voiding Method Incontinent Active Medications - Current Medications Current Medications: Generic Name Dose Route Start Last Admin Trade Name Freq PRN Reason Stop Dose Admin Acetaminophen 650 mg 12/13/21 23:00 12/13/21 23:18 Acetaminophen 650 Mg Rect Supp CO 650 mg Q4H PRN Administration Pain, Mild (1-3) Albuterol 2.5 mg 12/11/21 22:14 Albuterol 2.5 Mg/3 Ml Nebu IH Q6HR PRN Wheezing Albuterol/Ipratropium 1 ampul 12/14/21 08:00 12/23/21 20:15 Ipratropium/Albuterol Sulfate 3 Ml Ampul.Neb IH 1 ampul TIDRT KRISTA Administration Lipase/Protease/Amylase 1 each 12/16/21 11:15 Lipase 10,500/Protease 25,000/Amylase 43,750 (Units) Dr Blanco FEEDTUBE PRN PRN For Clogged Feeding Tube Atorvastatin Calcium 80 mg 12/15/21 22:00 12/23/21 21:12 Atorvastatin 40 Mg Tab FEEDTUBE Not Given QHS KRISTA Budesonide 0.5 mg 12/13/21 08:00 12/23/21 20:15 Budesonide 0.5 Mg/2 Ml Nebu IH 0.5 mg Q12HRT KRISTA Administration Dextrose 50 ml 12/11/21 22:23 12/16/21 06:24 Dextrose 50% In Water (25gm) 50 Ml Syringe IV 15 ml Q30MIN PRN Administration Hypoglycemia Protocol Hydrophilic Ointment 1 applic 12/16/21 14:30 Lip Therapy Vaseline TP Q2HR PRN Dry Lips Sodium Chloride 100 mls @ 999 mls/hr 12/12/21 12:00 Nacl 0.9% IV ABEL PRN Hypotension Ceftriaxone Sodium 2 gm in 100 mls @ 200 mls/hr 12/16/21 15:00 12/23/21 14:33 Rocephin/Ns 2 Gm/100 Ml IV 12/29/21 15:29 200 mls/hr Q24H KRISTA Administration Protocol Dextrose 1,000 mls @ 25 mls/hr 12/23/21 01:00 12/23/21 00:38 D10w IV 25 mls/hr DIRECT KRISTA Administration Potassium Chloride 10 meq in 100 mls @ 100 mls/hr 12/24/21 07:03 Kcl 10meq/100ml IV 12/24/21 08:02 ONCE ONE Insulin Human Lispro 0 unit 12/15/21 12:00 12/24/21 06:01 Insulin Lispro 100 Unit/Ml SUB-Q Not Given Q6HR KRISTA Protocol Levetiracetam 500 mg 12/16/21 18:00 12/23/21 17:32 Levetiracetam 500 Mg/5 Ml Oral Liqd FEEDTUBE 500 mg TuThSa KRISTA Administration Midodrine 10 mg 12/15/21 12:00 12/23/21 17:32 Midodrine 10 Mg Tab FEEDTUBE 10 mg TID@0800,1200,1600 KRISTA Administration Morphine Sulfate 2 mg 12/11/21 22:11 12/24/21 03:20 Morphine 4 Mg/1 Ml Inj IV 2 mg Q5MIN PRN Administration Chest Pain unrelieved by NTG Multi-Ingred Cream/Lotion/Oil/Oint 1 applic 12/16/21 14:10 Mineral Oil/Petrolatum, White Ophth Oint 3.5 Gm OU Q4HR PRN Dry Eye(s) Nitroglycerin 0.4 mg 12/11/21 22:11 Nitroglycerin 0.4 Mg Tab Subl SL Q5M PRN Chest Pain Pantoprazole Sodium 40 mg 05/09/22 22:00 12/23/21 21:12 Pantoprazole 40 Mg Inj IV 40 mg BID KRISTA Administration Polyethylene Glycol/Electrolytes 4,000 ml 12/23/21 14:48 12/23/21 17:44 Polyethylene Glycol/Elect Soln 4000 Ml NGTUBE 4,000 ml ONCE KRISTA Administration Senna/Docusate Sodium 1 tab 12/16/21 22:00 12/23/21 21:12 Sennosides/Docusate Sodium 8.6/50 Mg Tab FEEDTUBE Not Given BID KRISTA Simple Syrup 15 ml 12/16/21 11:15 Simple Syrup 15 Ml FEEDTUBE PRN PRN Hypoglycemia Simple Syrup 30 ml 12/16/21 11:15 Simple Syrup 15 Ml FEEDTUBE PRN PRN Hypoglycemia Sodium Bicarbonate 325 mg 12/16/21 11:15 Sodium Bicarbonate 325 Mg Tab FEEDTUBE PRN PRN For Clogged Feeding Tube Sodium Chloride 10 ml 12/11/21 22:11 12/24/21 03:22 Sodium Chloride 0.9% 10 Ml Flush Syringe IV 10 ml PRN PRN Administration LINE FLUSH Nutrition/Malnutrition Assess - Dietary Evaluation Nutrition/Malnutrition Findings: Nutrition Notes Start: 12/12/21 11:57 Freq: Status: Active Protocol: Document 12/22/21 14:20 SERINA (Rec: 12/22/21 14:29 [facility] [id number]) Nutrition Notes Initial or Follow up Reassessment Current Diagnosis CKD (stage V CKD),Coronary Artery Disease,Sepsis, Hypertension,Heart Failure, Respiratory Failure Other Pertinent Diagnosis Rectal bleeding, syncope, s/p fall, (R) hip pain Current Diet TF - Nepro at 30ml/hr Labs/Tests Na 136 K 3 BG 202 BUN 52 Cr 3.5 Pertinent Medications Lantus, Reglan, Protonix, Senokot Height 4 ft 11 in Weight 61.9 kg [place] Body Weight (kg) 43.18 BMI 27.6 Weight Status Overweight Subjective/Other Information TF off at time of visit (12:49 ). Per RN, TF off sec to GIB. Per GI, continue close clinical monitoring and trending of Hgb. Pt remains on vent support. Burn Absent Trauma Absent #1 Nutrition Diagnosis Inadequate oral intake Diagnosis Progress(for reassessment Continues documentation) Is patient on ventilator? Yes Is Patient Ambulatory and/or Out of Bed No REE-([facility]. Jear-confined to bed) [phone] Calculation Used for Recommendations [facility] Additional Notes Protein >1.2g/kg: >74g/day Fluids: 1-1.5 L/day. Nutrition Intervention Nutrition Support: Resume TF when medically feasible Goal #1 Resume TF to meet nutrient needs Follow-Up By: 12/24/21 Additional Comments F/U: TF restart, vent status, renal function, GIB
--- NOTE | 2021-12-23 10:43 | Progress Note ---
Assessment and Plan - Patient Problems (1) Syncope Current Visit: Yes Status: Acute Plan to address problem: Patient with end-stage renal disease on hemodialysis, admitted with transient dizziness and sepsis, suspected source indwelling Vas-Cath. History of a moderate severity cardiomyopathy, ejection fraction 35 to 40%. Follow-up 2D echocardiogram on this presentation showed no evidence of valvular vegetation. The etiology of her cardiomyopathy is not known at this time, we do not have her records from [place] for review. I have discontinued aspirin due to persistent rectal bleed. Conservative cardiac management. Subjective Date of service: 12/23/21 Principal diagnosis: Septic shock ; Bacteremia; ESRD on dialysis; AMS; NSTEMI; HTN; DM II Interval history: Patient is sedated, on the vent. Undergoing work-up for progressive thrombocytopenia, sepsis, and rectal bleeding. Objective Vital Signs Temp Pulse Pulse Pulse Resp Resp BP 12/23/21 09:01 74 12 93/35 12/23/21 08:15 12/23/21 08:01 75 13 107/49 12/23/21 08:00 98.3 F 76 77 12 107/49 12/23/21 07:00 76 12 111/58 12/23/21 06:00 77 13 111/57 12/23/21 05:00 80 12 104/59 12/23/21 04:00 99 F 79 80 14 99/75 12/23/21 03:57 111/66 12/23/21 03:00 77 12 121/61 12/23/21 02:00 77 13 107/88 12/23/21 01:00 76 13 109/56 12/23/21 00:01 76 14 99/41 12/23/21 00:00 99.1 F 80 12/22/21 23:57 94/41 12/22/21 23:06 77 16 114/54 12/22/21 23:00 77 19 114/54 12/22/21 22:00 80 18 116/52 12/22/21 21:09 80 12/22/21 21:00 74 19 126/70 12/22/21 20:00 76 82 80 21 14 124/53 12/22/21 19:29 98 F 12/22/21 19:00 81 20 129/66 12/22/21 18:11 98.0 F 12/22/21 18:00 80 18 118/72 12/22/21 17:00 84 9 L 112/79 12/22/21 16:00 84 84 19 126/70 12/22/21 15:30 18 117/62 12/22/21 15:00 82 16 124/67 12/22/21 14:00 84 20 130/64 12/22/21 13:09 72 20 12/22/21 13:00 84 19 125/79 12/22/21 12:00 85 80 20 121/73 12/22/21 11:32 21 140/84 12/22/21 11:19 99.2 F 12/22/21 11:00 88 20 136/79 Pulse Ox 12/23/21 09:01 100 12/23/21 08:15 100 12/23/21 08:01 100 12/23/21 08:00 100 12/23/21 07:00 100 12/23/21 06:00 100 12/23/21 05:00 100 12/23/21 04:00 100 12/23/21 03:57 100 12/23/21 03:00 100 12/23/21 02:00 100 12/23/21 01:00 100 12/23/21 00:01 100 12/23/21 00:00 100 12/22/21 23:57 100 12/22/21 23:06 100 12/22/21 23:00 100 12/22/21 22:00 100 12/22/21 21:09 12/22/21 21:00 100 12/22/21 20:00 100 12/22/21 19:29 12/22/21 19:00 99 12/22/21 18:11 12/22/21 18:00 91 12/22/21 17:00 100 12/22/21 16:00 100 12/22/21 15:30 100 12/22/21 15:00 100 12/22/21 14:00 96 12/22/21 13:09 12/22/21 13:00 97 12/22/21 12:00 100 12/22/21 11:32 98 12/22/21 11:19 12/22/21 11:00 89 - Physical Examination General: Other (Sedated, on the vent) HEENT: Positive: PERRL Neck: Positive: neck supple Cardiac: Positive: Reg Rate and Rhythm Lungs: Positive: Decreased Breath Sounds Neuro: Positive: Other (Sedated, on the vent) Abdomen: Positive: Soft Skin: Positive: Clear Extremities: Absent: edema - Labs and Meds Coagulation 12/22/21 Range/Units 14:05 PT 17.7 H (12.2-14.9) Sec. INR 1.30 H (0.87-1.13) CBC 12/22/21 12/22/21 12/23/21 Range/Units 14:05 22:56 04:39 WBC 21.1 H (4.5-11.0) K/mm3 RBC 3.94 (3.65-5.03) M/mm3 Hgb 10.8 10.4 10.0 L (10.1-14.3) gm/dl Hct 33.1 33.3 31.2 (30.3-42.9) % Plt Count 79 L (140-440) K/mm3 Comprehensive Metabolic Panel 12/23/21 Range/Units 04:39 Sodium 136 L (137-145) mmol/L Potassium 4.0 D (3.6-5.0) mmol/L Chloride 100.9 (98-107) mmol/L Carbon Dioxide 19 L (22-30) mmol/L BUN 61 H (7-17) mg/dL Creatinine 4.5 H (0.6-1.2) mg/dL Glucose 113 H (65-100) mg/dL Calcium 7.9 L (8.4-10.2) mg/dL - Allied health notes Allied health notes reviewed: nursing
--- NOTE | 2021-12-23 12:40 | Progress Note ---
Assessment and Plan Cultures: Blood culture: group B strep Catheter tip culture: Group B strep Blood culture 12/16/2021: No growth A/P: 66-year-old female past medical history hypertension, ESRD on HD now with: #Septic shock secondary to Group B strep bacteremia: Source possibly from dialysis. Catheter since been removed. TTE without evidence of vegetations. #Thrombocytopenia: Probably secondary to sepsis. Hematology evaluated. #ESRD on HD: Renally dose antibiotics #Acute GI bleed, anemia #Thrombocytopenia: Stable to improving Recs: -Continue ceftriaxone 2 g every 24 hours x 2 weeks -Wound care Garcia Bowens MD, FACP, [facility] O: [phone] F: [phone] C: [phone] Subjective Date of service: 12/23/21 Principal diagnosis: Septic shock ; Bacteremia; ESRD on dialysis; AMS; NSTEMI; HTN; DM II Interval history: No fever. Remains on the vent. Left femoral central line was removed. Objective - Exam Narrative Exam: Physical Exam: Constitutional: sedated, intubated, on the vent Head, Ears, Nose: Normocephalic, atraumatic. External ears, nose normal Eyes: Conjunctivae/corneas clear. No icterus. No ptosis. Neck: intubated Oral: intubated Cardiovascular: S1, S2 + Respiratory: AE fair bilaterally and equal GI: Soft, bowel sounds + Musculoskeletal: No pedal edema, no cyanosis. Skin: No rash or abscess. Hem/Lymphatic: No palpable cervical or supraclavicular nodes. No lymphangitis Psych: no agitation Neurological: sedated, intubated, on the vent, exam limited - Constitutional Vitals: Vital Signs Temp Pulse Resp BP Pulse Ox 99 F 76 21 115/55 100 12/23/21 11:51 12/23/21 12:00 12/23/21 12:00 12/23/21 12:00 12/23/21 12:00 Temperature -Last 24 Hours Temperature 99 F Temperature 98.3 F Temperature 99 F Temperature 99.1 F Temperature 98 F Temperature 98.0 F - Labs CBC & Chem 7: 12/23/21 04:39 12/23/21 04:39 Labs: Abnormal lab results 12/22/21 12/22/21 12/22/21 Range/Units 11:12 14:05 17:57 WBC (4.5-11.0) K/mm3 Hgb (10.1-14.3) gm/dl MCH (28-32) pg RDW (13.2-15.2) % Plt Count (140-440) K/mm3 PT 17.7 H (12.2-14.9) Sec. INR 1.30 H (0.87-1.13) Sodium (137-145) mmol/L Carbon Dioxide (22-30) mmol/L BUN (7-17) mg/dL Creatinine (0.6-1.2) mg/dL Glucose (65-100) mg/dL POC Glucose 191 H 140 H (70-105) mg/dL Calcium (8.4-10.2) mg/dL Phosphorus (2.5-4.5) mg/dL 12/23/21 12/23/21 12/23/21 Range/Units 04:39 04:39 05:11 WBC 21.1 H (4.5-11.0) K/mm3 Hgb 10.0 L (10.1-14.3) gm/dl MCH 26 L (28-32) pg RDW 17.6 H (13.2-15.2) % Plt Count 79 L (140-440) K/mm3 PT (12.2-14.9) Sec. INR (0.87-1.13) Sodium 136 L (137-145) mmol/L Carbon Dioxide 19 L (22-30) mmol/L BUN 61 H (7-17) mg/dL Creatinine 4.5 H (0.6-1.2) mg/dL Glucose 113 H (65-100) mg/dL POC Glucose 109 H (70-105) mg/dL Calcium 7.9 L (8.4-10.2) mg/dL Phosphorus 4.90 H (2.5-4.5) mg/dL
[2021-12-23 14:15] LABS: Hematocrit 28.7 % (30.3-42.9); Hemoglobin 9.3 gm/dl (10.1-14.3)
[2021-12-23] MEDS: cefTRIAXone/NS 2 GM/100 ML 2 GM/100 ML BAG IV SCH (14:33)
[2021-12-23] MEDS ORDERED: POLYETHYLENE GLYCOL/ELECT SOLN 4000 ML NGTUBE SCH (14:48)
--- NOTE | 2021-12-23 14:50 | Event Note ---
Date: 12/23/21 Spoke with the patient's daughter on the phone, discussed with her proceeding with colonoscopy tomorrow. Reviewed risk benefits and alternatives with her regarding the procedure as well as regarding anesthesia she is willing to proceed we will prep the patient for colonoscopy tomorrow
--- NOTE | 2021-12-23 14:50 | Hem/Onc Progress Note ---
Subjective Date of service: 12/23/21 Interval history: Heme progress note Televisit via [facility] CPT 71398 Dx Thrombocytopenia 66yo female s/p fall which occurred 2 days prior to arrival. 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 found to have elevated troponin, elevated BUN/creatinine at 9.2/76, CXR showed pulmonary edema CT head/C-spine/pelvis showed no acute fracture or dislocation and x-ray L- spine/right tib-fib/fib/right femur/right hip and pelvis showed no acute fracture or dislocation. Patient decompensated 12/15, requiring intubation. Sepsis secondary to beta- hemolytic strep group B. Platelets noted decreasing. Hematology following for thrombocytopenia. Patient intubated and sedated, but responding well to voice. Continues with rectal bleeding starting 12/21/21. Colonoscopy planned for tomorrow. 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 , improving Microcytic anemia, due to acute illness, and renal insufficiency, iron deficiency with iron sat 13% --S/p IV iron Coagulopathy, likely related to underlying sepsis, liver dysfunction Now with active GI bleed, h/h stable PLAN: Continue solu medrol 1mg/kg BID Monitor CBC Transfuse FFP 2 units every 6 hours for 24 hours due to active bleed Follow hemoglobin electrophoresis Laboratory Last Values WBC 21.1 K/mm3 (4.5-11.0) H 12/23/21 04:39 RBC 3.94 M/mm3 (3.65-5.03) 12/23/21 04:39 Hgb 9.3 gm/dl (10.1-14.3) L 12/23/21 14:05 Hct 28.7 % (30.3-42.9) L 12/23/21 14:05 MCV 79 fl (79-97) 12/23/21 04:39 MCH 26 pg (28-32) L 12/23/21 04:39 MCHC 32 % (30-34) 12/23/21 04:39 RDW 17.6 % (13.2-15.2) H 12/23/21 04:39 Plt Count 79 K/mm3 (140-440) L 12/23/21 04:39 Lymph % (Auto) 5.9 % (13.4-35.0) L 12/17/21 04:00 [place] % (Auto) 4.6 % (0.0-7.3) 12/17/21 04:00 Eos % (Auto) 0.4 % (0.0-4.3) 12/17/21 04:00 Baso % (Auto) 0.8 % (0.0-1.8) 12/17/21 04:00 Lymph # (Auto) 0.7 K/mm3 (1.2-5.4) L 12/17/21 04:00 [place] # (Auto) 0.6 K/mm3 (0.0-0.8) 12/17/21 04:00 Eos # (Auto) 0.0 K/mm3 (0.0-0.4) 12/17/21 04:00 Baso # (Auto) 0.1 K/mm3 (0.0-0.1) 12/17/21 04:00 Add Manual Diff Complete 12/18/21 05:00 Total Counted 100 12/19/21 05:00 Seg Neutrophils % [employer] 12/19/21 05:00 Seg Neuts % (Manual) 93.0 % (40.0-70.0) H 12/19/21 05:00 Band Neutrophils % 2.0 % 12/19/21 05:00 Lymphocytes % (Manual) 2.0 % (13.4-35.0) L 12/19/21 05:00 Reactive Lymphs % (Man) 0 % 12/19/21 05:00 Monocytes % (Manual) 1.0 % (0.0-7.3) 12/19/21 05:00 Eosinophils % (Manual) 0 % (0.0-4.3) 12/19/21 05:00 Basophils % (Manual) 0 % (0.0-1.8) 12/19/21 05:00 Metamyelocytes % 2.0 % 12/19/21 05:00 Myelocytes % 0 % 12/19/21 05:00 Promyelocytes % 0 % 12/19/21 05:00 Blast Cells % 0 % 12/19/21 05:00 Nucleated RBC % Not Reportable 12/19/21 05:00 Seg Neutrophils # 10.9 K/mm3 (1.8-7.7) H 12/17/21 04:00 Seg Neutrophils # Man 17.6 K/mm3 (1.8-7.7) H 12/19/21 05:00 Band Neutrophils # 0.4 K/mm3 12/19/21 05:00 Lymphocytes # (Manual) 0.4 K/mm3 (1.2-5.4) L 12/19/21 05:00 Abs React Lymphs (Man) 0.0 K/mm3 12/19/21 05:00 Monocytes # (Manual) 0.2 K/mm3 (0.0-0.8) 12/19/21 05:00 Eosinophils # (Manual) 0.0 K/mm3 (0.0-0.4) 12/19/21 05:00 Basophils # (Manual) 0.0 K/mm3 (0.0-0.1) 12/19/21 05:00 Metamyelocytes # 0.4 K/mm3 12/19/21 05:00 Myelocytes # 0.0 K/mm3 12/19/21 05:00 Promyelocytes # 0.0 K/mm3 12/19/21 05:00 Blast Cells # 0.0 K/mm3 12/19/21 05:00 WBC Morphology Not Reportable 12/19/21 05:00 Hypersegmented Neuts Not Reportable 12/19/21 05:00 Hyposegmented Neuts 1+ 12/19/21 05:00 Hypogranular Neuts Not Reportable 12/19/21 05:00 Smudge Cells Not Reportable 12/19/21 05:00 Toxic Granulation Not Reportable 12/19/21 05:00 Toxic Vacuolation Not Reportable 12/19/21 05:00 Dohle Bodies Not Reportable 12/19/21 05:00 Pelger-Huet Anomaly Not Reportable 12/19/21 05:00 Charles Rods Not Reportable 12/19/21 05:00 Platelet Estimate Consistent w auto 12/19/21 05:00 Clumped Platelets Not Reportable 12/19/21 05:00 Plt Clumps, EDTA Not Reportable 12/19/21 05:00 Large Platelets Not Reportable 12/19/21 05:00 Giant Platelets Not Reportable 12/19/21 05:00 Platelet Satelliting Not Reportable 12/19/21 05:00 Plt Morphology Comment Not Reportable 12/19/21 05:00 RBC Morphology Not Reportable 12/19/21 05:00 Dimorphic RBCs Not Reportable 12/19/21 05:00 Polychromasia Not Reportable 12/19/21 05:00 Hypochromasia 1+ 12/19/21 05:00 Poikilocytosis Few 12/19/21 05:00 Anisocytosis Few 12/19/21 05:00 Microcytosis Not Reportable 12/19/21 05:00 Macrocytosis Not Reportable 12/19/21 05:00 Spherocytes Not Reportable 12/19/21 05:00 Pappenheimer Bodies Not Reportable 12/19/21 05:00 Sickle Cells Not Reportable 12/19/21 05:00 Target Cells Rare 12/19/21 05:00 Tear Drop Cells Not Reportable 12/19/21 05:00 Ovalocytes Rare 12/19/21 05:00 Helmet Cells Not Reportable 12/19/21 05:00 [place] Bodies Not Reportable 12/19/21 05:00 [place] Rings Not Reportable 12/19/21 05:00 [place] Cells Not Reportable 12/19/21 05:00 Bite Cells Not Reportable 12/19/21 05:00 Crenated Cell Not Reportable 12/19/21 05:00 Elliptocytes Not Reportable 12/19/21 05:00 Acanthocytes (Spur) Not Reportable 12/19/21 05:00 Rouleaux Rare 12/19/21 05:00 Hemoglobin C Crystals Not Reportable 12/19/21 05:00 Schistocytes Rare 12/19/21 05:00 Malaria parasites Not Reportable 12/19/21 05:00 Percent Retic 0.37 % (0.78-2.58) L 12/18/21 05:00 [place] Bodies Not Reportable 12/19/21 05:00 Haptoglobin 193 mg/dL (43-212) 12/18/21 05:00 Hem Pathologist Commnt Not Reportable 12/19/21 05:00 PT 17.7 Sec. (12.2-14.9) H 12/22/21 14:05 INR 1.30 (0.87-1.13) H 12/22/21 14:05 Fibrinogen 351 mg/dl (211-480) 12/21/21 08:35 Heparin Anti-Xa, Unfract Negative (Negative) 12/17/21 09:30 Creatinine 4.5 mg/dL (0.6-1.2) H 12/23/21 04:39 Estimated GFR 12 ml/min 12/23/21 04:39 BUN/Creatinine Ratio 14 % 12/23/21 04:39 Glucose 113 mg/dL (65-100) H 12/23/21 04:39 POC Glucose 109 mg/dL (70-105) H 12/23/21 05:11 Lactic Acid 1.90 mmol/L (0.7-2.0) 12/16/21 05:00 Calcium 7.9 mg/dL (8.4-10.2) L 12/23/21 04:39 Phosphorus 4.90 mg/dL (2.5-4.5) H 12/23/21 04:39 Magnesium 1.90 mg/dL (1.7-2.3) 12/23/21 04:39 Iron 13 ug/dL (37-170) L 12/18/21 05:00 TIBC 109 mcg/dL (250-450) L 12/18/21 05:00 Ferritin 383.4 ng/mL (10.0-200.0) H 12/18/21 05:00 Total Bilirubin 0.60 mg/dL (0.1-1.2) 12/11/21 15:40 AST 22 units/L (5-40) 12/11/21 15:40 ALT 13 units/L (7-56) 12/11/21 15:40 Alkaline Phosphatase 237 units/L (35-129) H 12/11/21 15:40 Lactate Dehydrogenase 249 units/L (91-180) H 12/21/21 08:35 Troponin T 0.175 ng/mL (0.00-0.029) H* 12/12/21 04:43 C-Reactive Protein 38.50 mg/dL (0.00-1.30) H 12/15/21 14:40 Total Protein 7.4 g/dL (6.3-8.2) 12/11/21 15:40 Albumin 3.6 g/dL (3.9-5) L 12/11/21 15:40 Albumin/Globulin Ratio 0.9 % 12/11/21 15:40 Triglycerides 92 mg/dL (2-149) 12/11/21 15:40 Cholesterol 72 mg/dL (50-199) 12/11/21 15:40 LDL Cholesterol Direct 16 mg/dL (50-130) L 12/11/21 15:40 HDL Cholesterol 41 mg/dL (40-59) 12/11/21 15:40 Cholesterol/HDL Ratio 1.75 % 12/11/21 15:40 Serotonin Release Assay See scanned result 12/17/21 09:30 Procalcitonin 46.16 ng/mL (<0.15) 12/15/21 04:11 Arterial Blood Glucose Not Reportable 12/21/21 10:20 Random Vancomycin 15.6 ug/mL (0-40.0) 12/16/21 05:00 Heparin-induced Plt Ab Negative (Negative) 12/17/21 09:30 UF Heparin High Dose 1 % Release 12/17/21 09:30 JAMILAH UFH Low Dose 0.1 0 % Release 12/17/21 09:30 JAMILAH UFH Low Dose 0.5 0 % Release 12/17/21 09:30 Blood Type O POSITIVE 12/17/21 09:30 Antibody Screen Negative 12/17/21 09:30 Objective - Constitutional Vitals: Last Vital Signs Temp 99 F 12/23/21 11:51 Pulse 74 12/23/21 14:01 Resp 12 12/23/21 14:01 BP 104/52 12/23/21 14:01 Pulse Ox 100 12/23/21 14:01 - Labs Lab Results: Laboratory Results - last 24 hr 12/17/21 12/22/21 12/22/21 09:30 11:12 14:05 WBC RBC Hgb 10.8 Hct 33.1 MCV MCH MCHC RDW Plt Count PT INR Sodium Potassium Chloride Carbon Dioxide Anion Gap BUN Creatinine Estimated GFR BUN/Creatinine Ratio Glucose POC Glucose 191 H Calcium Phosphorus Magnesium Serotonin Release Assay See scanned result 12/22/21 12/22/21 12/22/21 14:05 17:57 20:55 WBC RBC Hgb Hct MCV MCH MCHC RDW Plt Count PT 17.7 H INR 1.30 H Sodium Potassium Chloride Carbon Dioxide Anion Gap BUN Creatinine Estimated GFR BUN/Creatinine Ratio Glucose POC Glucose 140 H 105 Calcium Phosphorus Magnesium Serotonin Release Assay 12/22/21 12/23/21 12/23/21 22:56 00:20 04:39 WBC 21.1 H RBC 3.94 Hgb 10.4 10.0 L Hct 33.3 31.2 MCV 79 MCH 26 L MCHC 32 RDW 17.6 H Plt Count 79 L PT INR Sodium Potassium Chloride Carbon Dioxide Anion Gap BUN Creatinine Estimated GFR BUN/Creatinine Ratio Glucose POC Glucose 84 Calcium Phosphorus Magnesium Serotonin Release Assay 12/23/21 12/23/21 12/23/21 04:39 05:11 14:05 WBC RBC Hgb 9.3 L Hct 28.7 L MCV MCH MCHC RDW Plt Count PT INR Sodium 136 L Potassium 4.0 D Chloride 100.9 Carbon Dioxide 19 L Anion Gap 20 BUN 61 H Creatinine 4.5 H Estimated GFR 12 BUN/Creatinine Ratio 14 Glucose 113 H POC Glucose 109 H Calcium 7.9 L Phosphorus 4.90 H Magnesium 1.90 Serotonin Release Assay Medications & Allergies - Medications Allergies/Adverse Reactions: Allergies No Known Allergies Allergy (Verified 12/11/21 22:19) Home Medications: Home Medications Medication Instructions Recorded Confirmed Last Taken Type Albuterol Sulfate [Proair 2 puff IH Q6HR PRN 11/23/21 12/14/21 Unknown History Digihaler] Calcium Acetate 2 tab PO TID 11/23/21 12/14/21 Unknown History Fluticasone/Umeclidin/Vilanter 1 each IH DAILY 11/23/21 12/14/21 Unknown History [Treleallan Ellipta 100-62.5-25] Furosemide [Lasix TAB] 40 mg PO QDAY 11/23/21 12/14/21 Unknown History Insulin Aspart (Nf) [NovoLOG 55 unit SQ TID 11/23/21 12/14/21 Unknown History Flexpen] Insulin Glargine [Lantus VIAL] 25 units SQ QHS 11/23/21 12/14/21 Unknown History Omeprazole 20 mg PO DAILY 11/23/21 12/14/21 Unknown History Spironolactone [Aldactone] 100 mg PO QDAY 11/23/21 12/14/21 Unknown History lisinopriL [Lisinopril] 20 mg PO BID 11/23/21 12/14/21 12/06/21 History 500 MG Docusate Sodium [Colace CAP] 100 mg PO BID PRN #60 capsule 11/24/21 12/14/21 Unknown Rx Aspirin EC [Halfprin EC] 81 mg PO DAILY 90 Days #90 tablet 11/26/21 12/14/21 Unknown Rx Aspirin [Adult Aspirin] 81 mg PO DAILY 90 Days #90 tab 11/26/21 12/14/21 Unknown Rx ISOSORBIDE MONOnitrate [Imdur ER] 60 mg PO QDAY 90 Days #90 tab 11/26/21 12/14/21 Unknown Rx Sevelamer Carbonate [Renvela] 800 mg PO TIDWM 90 Days #270 tab 11/26/21 12/14/21 Unknown Rx amLODIPine 10 mg PO DAILY 90 Days #90 tab 11/26/21 12/14/21 Unknown Rx carvediloL [Coreg] 25 mg PO BID 90 Days #180 tab 11/26/21 12/14/21 Unknown Rx Atorvastatin Calcium [Lipitor] 80 mg PO QHS 90 Days #90 tab 11/27/21 12/14/21 Unknown Rx levETIRAcetam [Keppra TAB] 500 mg PO 3XW 12/14/21 12/14/21 12/06/21 History 500 MG Active Medications: Generic Name Dose Route Start Last Admin Trade Name Freq PRN Reason Stop Dose Admin Acetaminophen 650 mg 12/13/21 23:00 12/13/21 23:18 Acetaminophen 650 Mg Rect Supp RI 650 mg Q4H PRN Administration Pain, Mild (1-3) Albuterol 2.5 mg 12/11/21 22:14 Albuterol 2.5 Mg/3 Ml Nebu IH Q6HR PRN Wheezing Albuterol/Ipratropium 1 ampul 12/14/21 08:00 12/23/21 08:11 Ipratropium/Albuterol Sulfate 3 Ml Ampul.Neb IH 1 ampul TIDRT KRISTA Administration Lipase/Protease/Amylase 1 each 12/16/21 11:15 Lipase 10,500/Protease 25,000/Amylase 43,750 (Units) Dr Blanco FEEDTUBE PRN PRN For Clogged Feeding Tube Atorvastatin Calcium 80 mg 12/15/21 22:00 12/22/21 21:03 Atorvastatin 40 Mg Tab FEEDTUBE 80 mg QHS KRISTA Administration Budesonide 0.5 mg 12/13/21 08:00 12/23/21 09:15 Budesonide 0.5 Mg/2 Ml Nebu IH 0.5 mg Q12HRT KRISTA Administration Dextrose 50 ml 12/11/21 22:23 12/16/21 06:24 Dextrose 50% In Water (25gm) 50 Ml Syringe IV 15 ml Q30MIN PRN Administration Hypoglycemia Protocol Hydrophilic Ointment 1 applic 12/16/21 14:30 Lip Therapy Vaseline TP Q2HR PRN Dry Lips Sodium Chloride 100 mls @ 999 mls/hr 12/12/21 12:00 Nacl 0.9% IV ABEL PRN Hypotension Ceftriaxone Sodium 2 gm in 100 mls @ 200 mls/hr 12/16/21 15:00 12/23/21 14:33 Rocephin/Ns 2 Gm/100 Ml IV 12/29/21 15:29 200 mls/hr Q24H KRISTA Administration Protocol Dextrose 1,000 mls @ 25 mls/hr 12/23/21 01:00 12/23/21 00:38 D10w IV 25 mls/hr DIRECT KRISTA Administration Insulin Human Lispro 0 unit 12/15/21 12:00 12/23/21 12:50 Insulin Lispro 100 Unit/Ml SUB-Q Not Given Q6HR [facility] Protocol Levetiracetam 500 mg 12/16/21 18:00 12/20/21 17:50 Levetiracetam 500 Mg/5 Ml Oral Liqd FEEDTUBE 500 mg TuThSa KRISTA Administration Midodrine 10 mg 12/15/21 12:00 12/23/21 12:31 Midodrine 10 Mg Tab FEEDTUBE 10 mg TID@0800,1200,1600 KRISTA Administration Morphine Sulfate 2 mg 12/11/21 22:11 Morphine 4 Mg/1 Ml Inj IV Q5MIN PRN Chest Pain unrelieved by NTG Multi-Ingred Cream/Lotion/Oil/Oint 1 applic 12/16/21 14:10 Mineral Oil/Petrolatum, White Ophth Oint 3.5 Gm OU Q4HR PRN Dry Eye(s) Nitroglycerin 0.4 mg 12/11/21 22:11 Nitroglycerin 0.4 Mg Tab Subl SL Q5M PRN Chest Pain Pantoprazole Sodium 40 mg 12/22/21 22:00 12/23/21 09:33 Pantoprazole 40 Mg Inj IV 40 mg BID KRISTA Administration Senna/Docusate Sodium 1 tab 12/16/21 22:00 12/23/21 09:18 Sennosides/Docusate Sodium 8.6/50 Mg Tab FEEDTUBE Not Given BID KRISTA Simple Syrup 15 ml 12/16/21 11:15 Simple Syrup 15 Ml FEEDTUBE PRN PRN Hypoglycemia Simple Syrup 30 ml 12/16/21 11:15 Simple Syrup 15 Ml FEEDTUBE PRN PRN Hypoglycemia Sodium Bicarbonate 325 mg 12/16/21 11:15 Sodium Bicarbonate 325 Mg Tab FEEDTUBE PRN PRN For Clogged Feeding Tube Sodium Chloride 10 ml 12/11/21 22:11 12/22/21 09:17 Sodium Chloride 0.9% 10 Ml Flush Syringe IV 10 ml PRN PRN Administration LINE FLUSH
[2021-12-23] MEDS ORDERED: SODIUM CHLORIDE 0.9% 500 ML 500 ML IV ONE (14:51)
[2021-12-23] MEDS: levETIRAcetam 500 MG/5 ML ORAL LIQD FEEDTUBE SCH (17:32)
[2021-12-24] MEDS: INSULIN LISPRO 100 UNIT/ML SUB-Q SCH ×4 (04:34→18:00)
[2021-12-24 06:22] LABS: Hematocrit 23.3 % (30.3-42.9); Hemoglobin 7.5 gm/dl (10.1-14.3); Mean Corpuscular HGB Conc 32 % (30-34); Mean Corpuscular Volume 79 fl (79-97); Red Blood Count 2.96 M/mm3 (3.65-5.03); Red Cell Distribution Width 17.8 % (13.2-15.2)
[2021-12-24 06:24] LABS: Platelet Count 89 K/mm3 (140-440)
[2021-12-24 06:41] LABS: Calcium 7.6 mg/dL (8.4-10.2)
[2021-12-24] MEDS ORDERED: POTASSIUM CHLORIDE 10 MEQ 10 MEQ/100 ML BAG IV SCH (08:00)
[2021-12-24] MEDS: IPRATROPIUM/ALBUTEROL SULFATE 3 ML AMPUL.NEB IH SCH ×3 (08:03→19:11)
[2021-12-24] MEDS ORDERED: EPINEPHrine 1 MG/10 ML SYRINGE ONE (08:03)
[2021-12-24] MEDS ORDERED: WATER FOR IRRIG STERILE 250 ML BOTTLE IR ONE (08:03)
[2021-12-24] MEDS ORDERED: WATER FOR IRRIG STERILE 1,000 ML BOTTLE ONE (08:03)
[2021-12-24] MEDS: BUDESONIDE 0.5 MG/2 ML NEBU IH SCH ×2 (08:03→19:11)
[2021-12-24] MEDS: MIDODRINE 10 MG TAB FEEDTUBE SCH (08:19)
--- NOTE | 2021-12-24 09:13 | Progress Note ---
Subjective Principal diagnosis: Septic shock ; Bacteremia; ESRD on dialysis; AMS; NSTEMI; HTN; DM II Interval history: Assessment and plan #End-stage kidney disease: Patient will continue to receive hemodialysis treatment 3 times a week on Wednesday and Wednesday schedule from renal standpoint her hemoglobin is around 10 #Access: Noted to have bacteremia permacath removed fistula is currently working Patient does have some swelling of the access arm Antibiotic dose and duration per infectious disease #Hypertension and volume: Patient was admitted with fall and hypotension, judicious ultrafiltration during dialysis nurse to monitor closely Dialysate bath was changed to 3.0 may need to change dialysis prescription with a higher sodium depending, may need to change dialysis prescription with a higher sodium depending, patient does not have any significant peripheral edema now #Anemia in end-stage kidney disease: To monitor and follow erythropoietin periodically goal hemoglobin between 10-11-1/2 Minimize lab draw in dialysis patients, if possible consider limiting to dialysis days Bone mineral disorder and secondary hyperparathyroidism; Monitor phosphorus binders as necessary goal phosphorus less than 5-1/2 Monitor dialysis related labs periodically renal care plan was discussed with ICU attending physician #Medication recommendation: no changes necessary today Overall prognosis appears to be guarded to poor We'll continue to follow and make recommendation for renal standpoint. Progress note by: Sagar Kent MD [address] [place] [id number] Tele [phone] [facility] was seen today for follow-up of multiple renal related issues currently intubated ventilator dependent Events of 24 hours vitals labs intake output medications were reviewed Past medical history: Reviewed Family history: Reviewed Social history: Reviewed Allergies: Reviewed Physical examination: Vitals: Reviewed HEENT: No pallor or icterus oral mucosa moist Neck: Supple no JVD no thyromegaly Chest: Bilateral clear to auscultation anteriorly Heart: Regular rate and rhythm S1-S2 heard no S3-S4 Abdomen: Soft nontender no voluntary guarding rigidity rebound Extremity: fistula in the left upper arm has good thrill and bruit, right forearm appears to have some loss of skin Psychiatric: No evidence of agitation and aggression noted Dermatology: No petechial rashes Labs and x-rays: Reviewed from today Objective - Vital Signs Vital signs: Vital Signs - 12hr 12/23/21 12/23/21 12/23/21 21:25 22:00 23:08 Temperature Pulse Rate 79 70 Pulse Rate [ Anterior Bilateral Throughout] Respiratory 12 13 12 Rate Respiratory Rate [Anterior Bilateral Throughout] Blood Pressure 145/73 O2 Sat by Pulse 100 100 93 Oximetry 12/23/21 12/23/21 12/24/21 23:10 23:56 00:00 Temperature 98.9 F Pulse Rate 67 70 Pulse Rate [ Anterior Bilateral Throughout] Respiratory 12 12 Rate Respiratory Rate [Anterior Bilateral Throughout] Blood Pressure 150/71 O2 Sat by Pulse 98 94 Oximetry 12/24/21 12/24/21 12/24/21 00:09 00:24 00:29 Temperature 98.9 F 98.0 F 98.0 F Pulse Rate 68 65 68 Pulse Rate [ Anterior Bilateral Throughout] Respiratory 12 12 12 Rate Respiratory Rate [Anterior Bilateral Throughout] Blood Pressure 154/74 159/78 159/78 O2 Sat by Pulse 100 100 100 Oximetry 12/24/21 12/24/21 12/24/21 00:54 01:00 01:38 Temperature 98.0 F 98.0 F Pulse Rate 68 73 72 Pulse Rate [ Anterior Bilateral Throughout] Respiratory 12 12 12 Rate Respiratory Rate [Anterior Bilateral Throughout] Blood Pressure 168/72 160/68 O2 Sat by Pulse 100 100 100 Oximetry 12/24/21 12/24/21 12/24/21 02:00 02:21 03:00 Temperature 98.0 F Pulse Rate 76 73 81 Pulse Rate [ Anterior Bilateral Throughout] Respiratory 13 12 12 Rate Respiratory Rate [Anterior Bilateral Throughout] Blood Pressure 155/67 168/72 175/70 O2 Sat by Pulse 100 100 96 Oximetry 12/24/21 12/24/21 12/24/21 03:01 03:02 03:20 Temperature 98.0 F 98.0 F Pulse Rate 70 70 Pulse Rate [ Anterior Bilateral Throughout] Respiratory 12 12 12 Rate Respiratory Rate [Anterior Bilateral Throughout] Blood Pressure 175/71 175/71 O2 Sat by Pulse 100 100 Oximetry 12/24/21 12/24/21 12/24/21 03:28 03:43 03:50 Temperature 98.3 F 98.3 F Pulse Rate 70 70 Pulse Rate [ Anterior Bilateral Throughout] Respiratory 12 12 14 Rate Respiratory Rate [Anterior Bilateral Throughout] Blood Pressure 154/68 O2 Sat by Pulse 99 100 Oximetry 12/24/21 12/24/21 12/24/21 04:00 04:45 05:00 Temperature Pulse Rate 77 81 Pulse Rate [ Anterior Bilateral Throughout] Respiratory 13 12 12 Rate Respiratory Rate [Anterior Bilateral Throughout] Blood Pressure 171/77 166/73 O2 Sat by Pulse 100 100 100 Oximetry 12/24/21 12/24/21 12/24/21 06:00 06:30 07:00 Temperature Pulse Rate 85 84 84 Pulse Rate [ Anterior Bilateral Throughout] Respiratory 12 12 Rate Respiratory Rate [Anterior Bilateral Throughout] Blood Pressure 181/77 165/71 O2 Sat by Pulse 100 98 Oximetry 12/24/21 12/24/21 07:58 08:00 Temperature 38.1 F L Pulse Rate 73 76 Pulse Rate [ 73 Anterior Bilateral Throughout] Respiratory 10 L Rate Respiratory 12 Rate [Anterior Bilateral Throughout] Blood Pressure 150/64 150/64 O2 Sat by Pulse 97 100 Oximetry - Lab 12/25/21 05:12 12/25/21 05:12 Most recent lab results ABG pH 7.448 (7.320-7.450) 12/21/21 10:20 ABG pCO2 45.6 mm Hg 12/18/21 20:00 ABG pO2 62.5 mm Hg (80.0-90.0) L 12/18/21 20:00 ABG HCO3 26.6 mmol/L (20.0-26.0) H 12/18/21 20:00 ABG O2 Saturation 98.6 (0-100) 12/21/21 10:20 Calcium 7.6 mg/dL (8.4-10.2) L 12/24/21 06:00 Phosphorus 4.90 mg/dL (2.5-4.5) H 12/23/21 04:39 Magnesium 1.90 mg/dL (1.7-2.3) 12/23/21 04:39 Medications & Allergies - Medications Allergies/Adverse Reactions: Allergies No Known Allergies Allergy (Verified 12/11/21 22:19) Home Medications: Home Medications Medication Instructions Recorded Confirmed Last Taken Type Albuterol Sulfate [Proair 2 puff IH Q6HR PRN 11/23/21 12/14/21 Unknown History Digihaler] Calcium Acetate 2 tab PO TID 11/23/21 12/14/21 Unknown History Fluticasone/Umeclidin/Vilanter 1 each IH DAILY 11/23/21 12/14/21 Unknown History [Trelegy Ellipta 100-62.5-25] Furosemide [Lasix TAB] 40 mg PO QDAY 11/23/21 12/14/21 Unknown History Insulin Aspart (Nf) [NovoLOG 55 unit SQ TID 11/23/21 12/14/21 Unknown History Flexpen] Insulin Glargine [Lantus VIAL] 25 units SQ QHS 11/23/21 12/14/21 Unknown History Omeprazole 20 mg PO DAILY 11/23/21 12/14/21 Unknown History Spironolactone [Aldactone] 100 mg PO QDAY 11/23/21 12/14/21 Unknown History lisinopriL [Lisinopril] 20 mg PO BID 11/23/21 12/14/21 12/06/21 History 500 MG Docusate Sodium [Colace CAP] 100 mg PO BID PRN #60 capsule 11/24/21 12/14/21 Unknown Rx Aspirin EC [Halfprin EC] 81 mg PO DAILY 90 Days #90 tablet 11/26/21 12/14/21 Unknown Rx Aspirin [Adult Aspirin] 81 mg PO DAILY 90 Days #90 tab 11/26/21 12/14/21 Unknown Rx ISOSORBIDE MONOnitrate [Imdur ER] 60 mg PO QDAY 90 Days #90 tab 11/26/21 12/14/21 Unknown Rx Sevelamer Carbonate [Renvela] 800 mg PO TIDWM 90 Days #270 tab 11/26/21 12/14/21 Unknown Rx amLODIPine 10 mg PO DAILY 90 Days #90 tab 11/26/21 12/14/21 Unknown Rx carvediloL [Coreg] 25 mg PO BID 90 Days #180 tab 11/26/21 12/14/21 Unknown Rx Atorvastatin Calcium [Lipitor] 80 mg PO QHS 90 Days #90 tab 11/27/21 12/14/21 Unknown Rx levETIRAcetam [Keppra TAB] 500 mg PO 3XW 12/14/21 12/14/21 12/06/21 History 500 MG Active Medications: Generic Name Dose Route Start Last Admin Trade Name Freq PRN Reason Stop Dose Admin Acetaminophen 650 mg 12/13/21 23:00 12/13/21 23:18 Acetaminophen 650 Mg Rect Supp MT 650 mg Q4H PRN Administration Pain, Mild (1-3) Albuterol 2.5 mg 12/11/21 22:14 Albuterol 2.5 Mg/3 Ml Nebu IH Q6HR PRN Wheezing Albuterol/Ipratropium 1 ampul 12/14/21 08:00 12/24/21 08:03 Ipratropium/Albuterol Sulfate 3 Ml Ampul.Neb IH 1 ampul TIDRT KRISTA Administration Lipase/Protease/Amylase 1 each 12/16/21 11:15 Lipase 10,500/Protease 25,000/Amylase 43,750 (Units) Dr Blanco FEEDTUBE PRN PRN For Clogged Feeding Tube Atorvastatin Calcium 80 mg 12/15/21 22:00 12/23/21 21:12 Atorvastatin 40 Mg Tab FEEDTUBE Not Given QHS KRISTA Budesonide 0.5 mg 12/13/21 08:00 12/24/21 08:03 Budesonide 0.5 Mg/2 Ml Nebu IH 0.5 mg Q12HRT KRISTA Administration Dextrose 50 ml 12/11/21 22:23 12/16/21 06:24 Dextrose 50% In Water (25gm) 50 Ml Syringe IV 15 ml Q30MIN PRN Administration Hypoglycemia Protocol Hydrophilic Ointment 1 applic 12/16/21 14:30 Lip Therapy Vaseline TP Q2HR PRN Dry Lips Sodium Chloride 100 mls @ 999 mls/hr 12/12/21 12:00 Nacl 0.9% IV ABEL PRN Hypotension Ceftriaxone Sodium 2 gm in 100 mls @ 200 mls/hr 12/16/21 15:00 12/23/21 14:33 Rocephin/Ns 2 Gm/100 Ml IV 12/29/21 15:29 200 mls/hr Q24H KRISTA Administration Protocol Dextrose 1,000 mls @ 25 mls/hr 12/23/21 01:00 12/23/21 00:38 D10w IV 25 mls/hr DIRECT KRISTA Administration Potassium Chloride 10 meq in 100 mls @ 100 mls/hr 12/24/21 08:00 12/24/21 08:25 Kcl 10meq/100ml IV 12/24/21 12:00 100 mls/hr ONCE@0800 KRISTA Administration Propofol 1,000 mg in 100 mls @ 1.857 mls/hr 12/24/21 08:00 12/24/21 08:43 Diprivan 10 Mg/Ml IV 15 mcg/kg/min TITR KRISTA 5.571 mls/hr Titration Protocol 5 MCG/KG/MIN Insulin Human Lispro 0 unit 12/15/21 12:00 12/24/21 06:01 Insulin Lispro 100 Unit/Ml SUB-Q Not Given Q6HR KRISTA Protocol Levetiracetam 500 mg 12/16/21 18:00 12/23/21 17:32 Levetiracetam 500 Mg/5 Ml Oral Liqd FEEDTUBE 500 mg TuThSa KRISTA Administration Midodrine 10 mg 12/15/21 12:00 12/24/21 08:19 Midodrine 10 Mg Tab FEEDTUBE Not Given TID@0800,1200,1600 [facility] Morphine Sulfate 2 mg 12/11/21 22:11 12/24/21 03:20 Morphine 4 Mg/1 Ml Inj IV 2 mg Q5MIN PRN Administration Chest Pain unrelieved by NTG Multi-Ingred Cream/Lotion/Oil/Oint 1 applic 12/16/21 14:10 Mineral Oil/Petrolatum, White Ophth Oint 3.5 Gm OU Q4HR PRN Dry Eye(s) Nitroglycerin 0.4 mg 12/11/21 22:11 Nitroglycerin 0.4 Mg Tab Subl SL Q5M PRN Chest Pain Pantoprazole Sodium 40 mg 12/22/21 22:00 12/23/21 21:12 Pantoprazole 40 Mg Inj IV 40 mg BID KRISTA Administration Polyethylene Glycol/Electrolytes 4,000 ml 12/23/21 14:48 12/23/21 17:44 Polyethylene Glycol/Elect Soln 4000 Ml NGTUBE 4,000 ml ONCE KRISTA Administration Senna/Docusate Sodium 1 tab 12/16/21 22:00 12/23/21 21:12 Sennosides/Docusate Sodium 8.6/50 Mg Tab FEEDTUBE Not Given BID KRISTA Simple Syrup 15 ml 12/16/21 11:15 Simple Syrup 15 Ml FEEDTUBE PRN PRN Hypoglycemia Simple Syrup 30 ml 12/16/21 11:15 Simple Syrup 15 Ml FEEDTUBE PRN PRN Hypoglycemia Sodium Bicarbonate 325 mg 12/16/21 11:15 Sodium Bicarbonate 325 Mg Tab FEEDTUBE PRN PRN For Clogged Feeding Tube Sodium Chloride 10 ml 12/11/21 22:11 12/24/21 03:22 Sodium Chloride 0.9% 10 Ml Flush Syringe IV 10 ml PRN PRN Administration LINE FLUSH
--- NOTE | 2021-12-24 09:15 | Operative Report ---
Operative Report Operative Report: DOS: 12/24/2021 SURGEON: Dequan Corado MD COLONOSCOPY WITH BIOPSY REPORT PREOPERATIVE AND POSTOPERATIVE DIAGNOSIS: GI bleed DESCRIPTION OF PROCEDURE: The colonoscope was passed to the terminal ileum as identified by the ileal tissue. Scope was carefully withdrawn. Retroflexion was performed in the rectum. At the end of procedure, the scope was cleaned using normal technique. Vital signs monitored continuously throughout. SEDATION: Provided by [facility]. Quality of the prep was fair COMPLICATIONS: None. ESTIMATED BLOOD LOSS: Minimal FINDINGS: * Normal terminal ileum * Diffuse severe colitis throughout the entire colon with erythema and edema and nodularity. Highest on the differential diagnosis is infectious or ischemic etiology. Endoscopic appearance is not classic for ulcerative colitis or Crohn's disease. Cold forceps used to obtain random biopsies throughout the entire colon RECOMMENDATIONS: Patient's rectal bleeding is from the diffuse colitis affecting the entire colon. No endoscopic interventions can treat this etiology. I will order stool studies rule out infectious etiologies such as C. difficile etc. to be thorough Otherwise recommend continue supportive care From GI perspective may resume tube feeds
[2021-12-24] MEDS: SENNOSIDES/DOCUSATE SODIUM 8.6/50 MG TAB FEEDTUBE SCH ×2 (09:21→22:00)
[2021-12-24] MEDS: PANTOPRAZOLE 40 MG INJ IV SCH ×2 (09:24→22:00)
--- NOTE | 2021-12-24 09:56 | Progress Note ---
<JONNATHAN TATUM - Last Filed: 12/24/21 16:03> Assessment and Plan Assessment and plan: This is a 66-year-old female with known past medical history of ESRD on HD, HTN, heart-attack, and GERD initially admitted to the floor s/p fall at home. Patient was transferred to the ICU due to septic shock /2 GPC bacteremia requiring vasopressor. Hospital Course to Date: 12/12: No acute events overnight, reports extreme pain in her right leg, denies chest pain or shortness of breath 12/13: No acute events overnight, patient tearful and complaining of right leg pain however she is refusing analgesic medication 12/14: Continues to have right leg pain, does not participate in interview 12/15: Patient transferred to the ICU for hypotension on Levophed drip however she was weaned off by morning and midodrine was increased due to borderline MAP. Blood cultures grew 11/17 gram-positive cocci with suspected right upper chest permacath source. Patient started on vancomycin and infectious disease consu lted. Plan for IR consult for permacath removal and assessment of aVF functioning. Possible temporary Vas-Cath placement for hemodialysis. Patient is encephalopathic likely secondary to sepsis. Continue current antibiotics and repeat 2D echo and blood cultures in the a.m. Right upper extremity swelling and pain noted and right upper extremity XR and Doppler ordered. 12/16: Patient noted to have blisters on left arm and RN asked to elevate and place cool compresses to site. AV fistula on left upper extremity access by hemodialysis nurse and hemodialysis ongoing. Vasopressin ordered in efforts to wean Levophed while on hemodialysis. Echocardiogram repeated. Blood cultures grew beta-hemolytic strep group B and antibiotics changed to ceftriaxone. Dobutamine drip discontinued. Remained sedated on fentanyl drip. 12/17: Thrombocytopenia worse today, unable to tolerate being off vasopressin, started on steroids, HIT assay ordered-discontinued. SCDs for now. [facility] will like to give normal saline 100 ml/hr for 2 L. 12/18: Wound care consult placed for right upper extremity, PSV trials today, weaning Levophed, dialysis planned for today. Hematology/oncology consulted yesterday who recommends twice daily Solu-Medrol. No acute events reported overnight. Patient will be started on IV iron 12/19: PSV today, mentation better and intermittently follows commands. Platelets stable. Reglan started for vomiting and will slowly increase TF. KUB with no acute process. 12/20: PSV today, mentation unchanged, CTH without acute findings, Platelets remains stable with no signs of bleeding, high residuals reported overnight and TF was off from approximately [id number]. TF resumed around 0400 at currently at 20/hr. RN to increase as tolerated. [facility] plans extubation Wednesday. HD today. Will keep femoral line for now in setting of low plts 12/21: Patient had moderate BM today with bright red and dark red blood->CBC pending, coags, LDH ordered, GI consulted and Dr. Lambert alerted. PSV again today. Patient is still intermittently following commands. 12/22: Remains on the vent, more somnolent this am. Patient also with persistent bloody stools, H&H remains stable, GI is also following. Will keep patient NPO for now, IV PPI, and serial H&H. Patient is tolerating PSV trial, However, intubation postpone due to increased lethargy and GIB. Awaiting on GI recommendations. 12/23: With persistent rectal bleeding, H&H and vital signs remain stable. GI is on the case, plan for possible colonoscopy tomorrow. Keep patient NPO, continue IV PPI and serial H&H. Hypoglycemic overnight, most likely due to NPO status, continue D10W for now. D/W CCM continue PSV trial, possible extubation tomorrow. Continue HD per Nephro 12/24: Post colonoscopy at the bedside this am. Patient stable on thevent but l ethargic. GI recommendations appreciated. Will resume TF, continue PPI and trend H&H X1more day. Leukocytosis improved this am, stool studies pending, Continue current IV antibiotics per ID. Plan for possible PSV trial today once more awake, possible extubation if patient tolerate PSV trial. Assessment and Plan #Septic Shock 09/17 #GPC Bacteremia #Severe Colitis #Leukocytosis - Suspected source right upper chest Permacath, removed on 12/15 - Intial Blood cultures + beta-hemolytic strep group B in 4/4 bottles, repeat B.Cultures with NGTD - Echo with no evidence of vegetation - With persistent leukocytosis, afebrile - Severe colitis throughout the entire colon noted from colonoscopy on 12/24 - Stool studies pending - ID on consult, appreciated recommendations - Continue current IV Abx, Rocephin, per ID - Continue to F/U on B.cult - Daily CBC monitor #Heart Failure with Reduced Ejection Fraction #Severe Cardiomyopathy #NSTEMI #H/o Hypertension #History of CAD - Cardiology consulted, assistance appreciated - went in septic shock 09/17 bacteremia- s/p dobutamine and vaspressors - Echocardiogram 11/23: EF 35-40% - Repeat Echo this admit shows LVEF 30 to 35%, no valvular vegetations - Continue statin, ASA held due to GIB - midodrine adjusted and parameters added - Continue blood pressure monitor per protocol - Maintain MAP above 65 - Strick I&Os and daily weight #Acute Metabolic Encephalopathy #h/o seizure disorder and 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 #S/p Fall at home - most likely due to severe sepsis - CT head with no acute intracranial process - Imagings with no evidence of fractures or any acute findings - On the vent, not on any sedations, but lethargic - Continue current IV abx per ID - Frequent reorientation - Avoid benzodiazepine to reduce the possibility of delirium - Prn analgesia for pain management - Maintenance of sleep-wake cycle - Aspiration/seizure precautions - Continue fall precautions - Physical therapy eval ordered #Acute on Chronic Hypoxic Respiratory Failure - most likely due to fluid overload/sepsis shock - Decompensated on 12/15 was emergently intubated - Vent setting:PRVC-30%,6,12,450 - AM ABG noted - CCM consulted, appreciate recommendations - Continue HD per Nephro and IV Abx per ID - VAP bundle addressed - Aspiration precaution HOB above 30 - Daily SBT and SAT trials as tolerated - PRN ABG and CXR - Continue SPO2 monitoring for SPO2 goal above 92% - Possible extubation today #ESRD (End Stage Renal Disease) on HD - Nephrology on consult, appreciated recommendation - BRICE AV-fistula is functioning, patient tolerating HD - Continue HD per Nephro - Strict intake and output - Avoid nephrotoxic medications; Renally dose medications - Monitor and replace electrolytes as needed #Extravasation of RUE #Sacral Wounds - RUE extravasation of RUE- possibly levophed- Antidote not available - RUE doppler negative DVT - WOCN consult- continue dressing changes per nursing - PRN analgesia for pain management #Normocytic Anemia, chronic #Thrombocytopenia-improved #Acute GI Bleed - Acute bloody stools since 12/21, probably due to low plt - H&H remains stable, Platelet count is improving - HIT panel hegative - GI on consult, appreciated recommendations - 12/24- s/p Colonoscopy- diffuse severe colitis throughout the entire colon with erythema and edema and nodularity probably due to infectious or ischemic etiology - stool studies ordered to rule out infectious etiologies - okay to resume TF - continue IV PPI and trend H&H X1 more day - Continue to hold AC for now - Hematology is also following - s/p 2units of FFP - Continue to monitor for s/s of any active bleeding - Transfuse 1 unit of plts whenever plt count <20 - Transfuse for hemoglobin less than 7 #Type 2 Diabetes Mellitus # Multi-nodular thyroid gland - Episode of hypoglycemia, most likely due to NPO status - Continue D10W gtt while NPO - Plan to resume TF today, D/C d10 once TF restarted - Continue BG check and SSI - Continue Hypoglycemic Protocol - Avoid Hypoglycemia - Multinodular thyroid gland noted on CT head - Possible thyroid US when more stable vs outpatient #GI/DVT Prophylaxis - PPI- IV Protonix - SCDs to bilateral lower extremities while in bed The high probability of a clinically significant, sudden or life threatening deterioration of the [multiple] system(s) required my full and direct attention, intervention and personal management. The aggregate critical care time was [60] minutes. This time is in addition to time spent performing reported procedures but includes the following: [x] Data Review and interpretation [x] Patient assessment and monitoring of vital signs [x] Documentation [x] Medication orders and management Disposition Plan: ICU Total Time Spent with Patient (Minutes): 60 History Interval history: Patient seen and examined at the bedside. Remains on the vent, not on any sedation. Lethargic post procedure, colonoscopy at the bedside. Remain of D10w. No significant event overnight Hospitalist Physical - Physical exam Narrative exam: General appearance: Present: no acute distress, other (On the vent.,Lethargic) - EENT Eyes: Present: PERRL - Neck Neck: Present: normal ROM - Respiratory Respiratory effort: normal Respiratory: bilateral: diminished - Cardiovascular Rhythm: regular Heart Sounds: Present: S1 & S2 - Extremities Extremities: abnormal (RUE extravasation) Extremity abnormal: edema - Peripheral Assessment Bilateral Upper Extremity Edema Type: Pitting Edema Degree: 3+ Capillary Refill: < 3 seconds Skin Temperature: Warm Peripheral Pulses: within normal limits - Abdominal General gastrointestinal: soft, non-distended, normal bowel sounds - Integumentary Integumentary: Present: warm, dry - Psychiatric Psychiatric: other (Lethargic but arousable. Remains on the vent) - Neurologic Neurologic: other (Lethargic but arousable. Remains on the vent) - Allied Health Allied health notes reviewed: nursing, case management - Constitutional Vitals: Temp Pulse Resp BP Pulse Ox 98.5 F 79 13 153/62 97 12/24/21 08:30 12/24/21 09:00 12/24/21 09:00 12/24/21 09:00 12/24/21 09:00 HEART Score - HEART Score Troponin: Troponin T 0.175 ng/mL (0.00-0.029) H* 12/12/21 04:43 Results - Labs CBC & Chem 7: 12/24/21 14:00 12/24/21 06:00 Labs: Laboratory Last Values WBC 16.8 K/mm3 (4.5-11.0) H 12/24/21 06:00 RBC 2.96 M/mm3 (3.65-5.03) L 12/24/21 06:00 Hgb 7.5 gm/dl (10.1-14.3) L 12/24/21 06:00 Hct 23.3 % (30.3-42.9) L 12/24/21 06:00 MCV 79 fl (79-97) 12/24/21 06:00 MCH 26 pg (28-32) L 12/24/21 06:00 MCHC 32 % (30-34) 12/24/21 06:00 RDW 17.8 % (13.2-15.2) H 12/24/21 06:00 Plt Count 89 K/mm3 (140-440) L 12/24/21 06:00 Lymph % (Auto) 5.9 % (13.4-35.0) L 12/17/21 04:00 [place] % (Auto) 4.6 % (0.0-7.3) 12/17/21 04:00 Eos % (Auto) 0.4 % (0.0-4.3) 12/17/21 04:00 Baso % (Auto) 0.8 % (0.0-1.8) 12/17/21 04:00 Lymph # (Auto) 0.7 K/mm3 (1.2-5.4) L 12/17/21 04:00 [place] # (Auto) 0.6 K/mm3 (0.0-0.8) 12/17/21 04:00 Eos # (Auto) 0.0 K/mm3 (0.0-0.4) 12/17/21 04:00 Baso # (Auto) 0.1 K/mm3 (0.0-0.1) 12/17/21 04:00 Add Manual Diff Complete 12/18/21 05:00 Total Counted 100 12/19/21 05:00 Seg Neutrophils % Entry Driver Operator 12/19/21 05:00 Seg Neuts % (Manual) 93.0 % (40.0-70.0) H 12/19/21 05:00 Band Neutrophils % 2.0 % 12/19/21 05:00 Lymphocytes % (Manual) 2.0 % (13.4-35.0) L 12/19/21 05:00 Reactive Lymphs % (Man) 0 % 12/19/21 05:00 Monocytes % (Manual) 1.0 % (0.0-7.3) 12/19/21 05:00 Eosinophils % (Manual) 0 % (0.0-4.3) 12/19/21 05:00 Basophils % (Manual) 0 % (0.0-1.8) 12/19/21 05:00 Metamyelocytes % 2.0 % 12/19/21 05:00 Myelocytes % 0 % 12/19/21 05:00 Promyelocytes % 0 % 12/19/21 05:00 Blast Cells % 0 % 12/19/21 05:00 Nucleated RBC % Not Reportable 12/19/21 05:00 Seg Neutrophils # 10.9 K/mm3 (1.8-7.7) H 12/17/21 04:00 Seg Neutrophils # Man 17.6 K/mm3 (1.8-7.7) H 12/19/21 05:00 Band Neutrophils # 0.4 K/mm3 12/19/21 05:00 Lymphocytes # (Manual) 0.4 K/mm3 (1.2-5.4) L 12/19/21 05:00 Abs React Lymphs (Man) 0.0 K/mm3 12/19/21 05:00 Monocytes # (Manual) 0.2 K/mm3 (0.0-0.8) 12/19/21 05:00 Eosinophils # (Manual) 0.0 K/mm3 (0.0-0.4) 12/19/21 05:00 Basophils # (Manual) 0.0 K/mm3 (0.0-0.1) 12/19/21 05:00 Metamyelocytes # 0.4 K/mm3 12/19/21 05:00 Myelocytes # 0.0 K/mm3 12/19/21 05:00 Promyelocytes # 0.0 K/mm3 12/19/21 05:00 Blast Cells # 0.0 K/mm3 12/19/21 05:00 WBC Morphology Not Reportable 12/19/21 05:00 Hypersegmented Neuts Not Reportable 12/19/21 05:00 Hyposegmented Neuts 1+ 12/19/21 05:00 Hypogranular Neuts Not Reportable 12/19/21 05:00 Smudge Cells Not Reportable 12/19/21 05:00 Toxic Granulation Not Reportable 12/19/21 05:00 Toxic Vacuolation Not Reportable 12/19/21 05:00 Dohle Bodies Not Reportable 12/19/21 05:00 Pelger-Huet Anomaly Not Reportable 12/19/21 05:00 Charles Rods Not Reportable 12/19/21 05:00 Platelet Estimate Consistent w auto 12/19/21 05:00 Clumped Platelets Not Reportable 12/19/21 05:00 Plt Clumps, EDTA Not Reportable 12/19/21 05:00 Large Platelets Not Reportable 12/19/21 05:00 Giant Platelets Not Reportable 12/19/21 05:00 Platelet Satelliting Not Reportable 12/19/21 05:00 Plt Morphology Comment Not Reportable 12/19/21 05:00 RBC Morphology Not Reportable 12/19/21 05:00 Dimorphic RBCs Not Reportable 12/19/21 05:00 Polychromasia Not Reportable 12/19/21 05:00 Hypochromasia 1+ 12/19/21 05:00 Poikilocytosis Few 12/19/21 05:00 Anisocytosis Few 12/19/21 05:00 Microcytosis Not Reportable 12/19/21 05:00 Macrocytosis Not Reportable 12/19/21 05:00 Spherocytes Not Reportable 12/19/21 05:00 Pappenheimer Bodies Not Reportable 12/19/21 05:00 Sickle Cells Not Reportable 12/19/21 05:00 Target Cells Rare 12/19/21 05:00 Tear Drop Cells Not Reportable 12/19/21 05:00 Ovalocytes Rare 12/19/21 05:00 Helmet Cells Not Reportable 12/19/21 05:00 Murphy-Bloomsbury Bodies Not Reportable 12/19/21 05:00 Stanton Rings Not Reportable 12/19/21 05:00 [place] Cells Not Reportable 12/19/21 05:00 Bite Cells Not Reportable 12/19/21 05:00 Crenated Cell Not Reportable 12/19/21 05:00 Elliptocytes Not Reportable 12/19/21 05:00 Acanthocytes (Spur) Not Reportable 12/19/21 05:00 Rouleaux Rare 12/19/21 05:00 Hemoglobin C Crystals Not Reportable 12/19/21 05:00 Schistocytes Rare 12/19/21 05:00 Malaria parasites Not Reportable 12/19/21 05:00 Percent Retic 0.37 % (0.78-2.58) L 12/18/21 05:00 Bryson Bodies Not Reportable 12/19/21 05:00 Haptoglobin 193 mg/dL (43-212) 12/18/21 05:00 Hem Pathologist Commnt Not Reportable 12/19/21 05:00 PT 17.7 Sec. (12.2-14.9) H 12/22/21 14:05 INR 1.30 (0.87-1.13) H 12/22/21 14:05 Fibrinogen 351 mg/dl (211-480) 12/21/21 08:35 Heparin Anti-Xa, Unfract Negative (Negative) 12/17/21 09:30 ABG pH 7.448 (7.320-7.450) 12/21/21 10:20 POC ABG pCO2 36.0 mmHg (32.0-48.0) 12/21/21 10:20 ABG pCO2 45.6 mm Hg 12/18/21 20:00 POC ABG pO2 126.1 mmHg (83-108) H 12/21/21 10:20 ABG pO2 62.5 mm Hg (80.0-90.0) L 12/18/21 20:00 POC ABG HCO3 24.3 12/21/21 10:20 ABG HCO3 26.6 mmol/L (20.0-26.0) H 12/18/21 20:00 ABG O2 Saturation 98.6 (0-100) 12/21/21 10:20 ABG O2 Content 10.7 (0.0-44) 12/18/21 20:00 POC ABG Base Excess 0.6 12/21/21 10:20 ABG Base Excess 1.3 mmol/L (-2.0-3.0) 12/18/21 20:00 ABG Hemoglobin 11.1 (12.0-17.5) L 12/21/21 10:20 ABG Oxyhemoglobin 97.4 (94-98) 12/21/21 10:20 ABG Carboxyhemoglobin 1.7 % (0.0-5.0) 12/18/21 20:00 ABG Methemoglobin 0.3 (0.0-1.5) 12/21/21 10:20 ABG Sodium Not Reportable 12/21/21 10:20 ABG Potassium Not Reportable 12/21/21 10:20 ABG Chloride Not Reportable 12/21/21 10:20 ABG Glucose Not Reportable 12/21/21 10:20 VBG pO2 > 258.0 (25.0-47.0) H 12/15/21 19:50 Oxyhemoglobin 89.9 % (95.0-99.0) L 12/18/21 20:00 Carboxyhemoglobin 0.9 (0.5-1.5) 12/21/21 10:20 FiO2 30 % 12/18/21 20:00 FiO2 % 30.0 12/21/21 10:20 Sodium 137 mmol/L (137-145) 12/24/21 06:00 Potassium 3.3 mmol/L (3.6-5.0) L 12/24/21 06:00 Chloride 97.3 mmol/L (98-107) L 12/24/21 06:00 Carbon Dioxide 25 mmol/L (22-30) 12/24/21 06:00 Anion Gap 18 mmol/L 12/24/21 06:00 BUN 31 mg/dL (7-17) H 12/24/21 06:00 Creatinine 2.8 mg/dL (0.6-1.2) H 12/24/21 06:00 Estimated GFR 21 ml/min 12/24/21 06:00 BUN/Creatinine Ratio 11 % 12/24/21 06:00 Glucose 208 mg/dL (65-100) H 12/24/21 06:00 POC Glucose 199 mg/dL (70-105) H 12/24/21 03:45 Lactic Acid 1.90 mmol/L (0.7-2.0) 12/16/21 05:00 Calcium 7.6 mg/dL (8.4-10.2) L 12/24/21 06:00 Phosphorus 4.90 mg/dL (2.5-4.5) H 12/23/21 04:39 Magnesium 1.90 mg/dL (1.7-2.3) 12/23/21 04:39 Iron 13 ug/dL (37-170) L 12/18/21 05:00 TIBC 109 mcg/dL (250-450) L 12/18/21 05:00 Ferritin 383.4 ng/mL (10.0-200.0) H 12/18/21 05:00 Total Bilirubin 0.60 mg/dL (0.1-1.2) 12/11/21 15:40 AST 22 units/L (5-40) 12/11/21 15:40 ALT 13 units/L (7-56) 12/11/21 15:40 Alkaline Phosphatase 237 units/L (35-129) H 12/11/21 15:40 Lactate Dehydrogenase 249 units/L (91-180) H 12/21/21 08:35 Troponin T 0.175 ng/mL (0.00-0.029) H* 12/12/21 04:43 C-Reactive Protein 38.50 mg/dL (0.00-1.30) H 12/15/21 14:40 Total Protein 7.4 g/dL (6.3-8.2) 12/11/21 15:40 Albumin 3.6 g/dL (3.9-5) L 12/11/21 15:40 Albumin/Globulin Ratio 0.9 % 12/11/21 15:40 Triglycerides 92 mg/dL (2-149) 12/11/21 15:40 Cholesterol 72 mg/dL (50-199) 12/11/21 15:40 LDL Cholesterol Direct 16 mg/dL (50-130) L 12/11/21 15:40 HDL Cholesterol 41 mg/dL (40-59) 12/11/21 15:40 Cholesterol/HDL Ratio 1.75 % 12/11/21 15:40 Serotonin Release Assay See scanned result 12/17/21 09:30 Procalcitonin 46.16 ng/mL (<0.15) 12/15/21 04:11 Arterial Blood Glucose Not Reportable 12/21/21 10:20 Random Vancomycin 15.6 ug/mL (0-40.0) 12/16/21 05:00 Heparin-induced Plt Ab Negative (Negative) 12/17/21 09:30 UF Heparin High Dose 1 % Release 12/17/21 09:30 JAMILAH UFH Low Dose 0.1 0 % Release 12/17/21 09:30 JAMILAH UFH Low Dose 0.5 0 % Release 12/17/21 09:30 Blood Type O POSITIVE 12/23/21 16:20 Antibody Screen Negative 12/23/21 16:20 Johnson/IV: Voiding Method Incontinent Active Medications - Current Medications Current Medications: Generic Name Dose Route Start Last Admin Trade Name Freq PRN Reason Stop Dose Admin Acetaminophen 650 mg 12/13/21 23:00 12/13/21 23:18 Acetaminophen 650 Mg Rect Supp OK 650 mg Q4H PRN Administration Pain, Mild (1-3) Albuterol 2.5 mg 12/11/21 22:14 Albuterol 2.5 Mg/3 Ml Nebu IH Q6HR PRN Wheezing Albuterol/Ipratropium 1 ampul 12/14/21 08:00 12/24/21 08:03 Ipratropium/Albuterol Sulfate 3 Ml Ampul.Neb IH 1 ampul TIDRT KRISTA Administration Lipase/Protease/Amylase 1 each 12/16/21 11:15 Lipase 10,500/Protease 25,000/Amylase 43,750 (Units) Dr Blanco FEEDTUBE PRN PRN For Clogged Feeding Tube Atorvastatin Calcium 80 mg 12/15/21 22:00 12/23/21 21:12 Atorvastatin 40 Mg Tab FEEDTUBE Not Given QHS KRISTA Budesonide 0.5 mg 12/13/21 08:00 12/24/21 08:03 Budesonide 0.5 Mg/2 Ml Nebu IH 0.5 mg Q12HRT KRISTA Administration Dextrose 50 ml 12/11/21 22:23 12/16/21 06:24 Dextrose 50% In Water (25gm) 50 Ml Syringe IV 15 ml Q30MIN PRN Administration Hypoglycemia Protocol Hydrophilic Ointment 1 applic 12/16/21 14:30 Lip Therapy Vaseline TP Q2HR PRN Dry Lips Sodium Chloride 100 mls @ 999 mls/hr 12/12/21 12:00 Nacl 0.9% IV ABEL PRN Hypotension Ceftriaxone Sodium 2 gm in 100 mls @ 200 mls/hr 12/16/21 15:00 12/23/21 14:33 Rocephin/Ns 2 Gm/100 Ml IV 12/29/21 15:29 200 mls/hr Q24H KRISTA Administration Protocol Dextrose 1,000 mls @ 25 mls/hr 12/23/21 01:00 12/23/21 00:38 D10w IV 25 mls/hr DIRECT KRISTA Administration Potassium Chloride 10 meq in 100 mls @ 100 mls/hr 12/24/21 08:00 12/24/21 08:25 Kcl 10meq/100ml IV 12/24/21 12:00 100 mls/hr ONCE@0800 KRISTA Administration Propofol 1,000 mg in 100 mls @ 1.857 mls/hr 12/24/21 08:00 12/24/21 09:24 Diprivan 10 Mg/Ml IV 0 mcg/kg/min TITR KRISTA 0 mls/hr Titration Protocol 5 MCG/KG/MIN Insulin Human Lispro 0 unit 12/15/21 12:00 12/24/21 06:01 Insulin Lispro 100 Unit/Ml SUB-Q Not Given Q6HR KRISTA Protocol Levetiracetam 500 mg 12/16/21 18:00 12/23/21 17:32 Levetiracetam 500 Mg/5 Ml Oral Liqd FEEDTUBE 500 mg TuThSa KRISTA Administration Midodrine 10 mg 12/15/21 12:00 12/24/21 08:19 Midodrine 10 Mg Tab FEEDTUBE Not Given TID@0800,1200,1600 KRISTA Morphine Sulfate 2 mg 12/11/21 22:11 12/24/21 03:20 Morphine 4 Mg/1 Ml Inj IV 2 mg Q5MIN PRN Administration Chest Pain unrelieved by NTG Multi-Ingred Cream/Lotion/Oil/Oint 1 applic 12/16/21 14:10 Mineral Oil/Petrolatum, White Ophth Oint 3.5 Gm OU Q4HR PRN Dry Eye(s) Nitroglycerin 0.4 mg 12/11/21 22:11 Nitroglycerin 0.4 Mg Tab Subl SL Q5M PRN Chest Pain Pantoprazole Sodium 40 mg 12/22/21 22:00 12/24/21 09:24 Pantoprazole 40 Mg Inj IV 40 mg BID KRISTA Administration Polyethylene Glycol/Electrolytes 4,000 ml 12/23/21 14:48 12/23/21 17:44 Polyethylene Glycol/Elect Soln 4000 Ml NGTUBE 4,000 ml ONCE KRISTA Administration Senna/Docusate Sodium 1 tab 12/16/21 22:00 12/24/21 09:21 Sennosides/Docusate Sodium 8.6/50 Mg Tab FEEDTUBE Not Given BID KRISTA Simple Syrup 15 ml 12/16/21 11:15 Simple Syrup 15 Ml FEEDTUBE PRN PRN Hypoglycemia Simple Syrup 30 ml 12/16/21 11:15 Simple Syrup 15 Ml FEEDTUBE PRN PRN Hypoglycemia Sodium Bicarbonate 325 mg 12/16/21 11:15 Sodium Bicarbonate 325 Mg Tab FEEDTUBE PRN PRN For Clogged Feeding Tube Sodium Chloride 10 ml 12/11/21 22:11 12/24/21 09:24 Sodium Chloride 0.9% 10 Ml Flush Syringe IV 10 ml PRN PRN Administration LINE FLUSH Nutrition/Malnutrition Assess - Dietary Evaluation Nutrition/Malnutrition Findings: Nutrition Notes Start: 12/12/21 11:57 Freq: Status: Active Protocol: Document 12/22/21 14:20 SERINA (Rec: 12/22/21 14:29 SERINA [id number]) Nutrition Notes Initial or Follow up Reassessment Current Diagnosis CKD (stage V CKD),Coronary Artery Disease,Sepsis, Hypertension,Heart Failure, Respiratory Failure Other Pertinent Diagnosis Rectal bleeding, syncope, s/p fall, (R) hip pain Current Diet TF - Nepro at 30ml/hr Labs/Tests Na 136 K 3 BG 202 BUN 52 Cr 3.5 Pertinent Medications Lantus, Reglan, Protonix, Senokot Height 4 ft 11 in Weight 61.9 kg [place] Body Weight (kg) 43.18 BMI 27.6 Weight Status Overweight Subjective/Other Information TF off at time of visit (12:49 ). Per RN, TF off sec to GIB. Per GI, continue close clinical monitoring and trending of Hgb. Pt remains on vent support. Burn Absent Trauma Absent #1 Nutrition Diagnosis Inadequate oral intake Diagnosis Progress(for reassessment Continues documentation) Is patient on ventilator? Yes Is Patient Ambulatory and/or Out of Bed No REE-([place] Jeor-confined to bed) [phone] Calculation Used for Recommendations [place] Je[place] Additional Notes Protein >1.2g/kg: >74g/day Fluids: 1-1.5 L/day. Nutrition Intervention Nutrition Support: Resume TF when medically feasible Goal #1 Resume TF to meet nutrient needs Follow-Up By: 12/24/21 Additional Comments F/U: TF restart, vent status, renal function, GIB <AUSTIN STARR - Last Filed: 12/25/21 07:16> Assessment and Plan Assessment and plan: I saw and evaluated the patient. I agree with the findings and the plan of care as documented in the Nurse Practitioner's~note, with the following corrections and additions. Hospitalist Physical - Constitutional Vitals: Temp Pulse Resp BP Pulse Ox 98.4 F 93 H 20 98/57 100 12/25/21 03:13 12/25/21 06:00 12/25/21 06:00 12/25/21 06:00 12/25/21 06:00 HEART Score - HEART Score Troponin: Troponin T 0.175 ng/mL (0.00-0.029) H* 12/12/21 04:43 Results - Labs CBC & Chem 7: 12/25/21 05:12 12/25/21 05:12 Labs: Laboratory Last Values WBC 17.4 K/mm3 (4.5-11.0) H 12/25/21 05:12 RBC 3.10 M/mm3 (3.65-5.03) L 12/25/21 05:12 Hgb 8.3 gm/dl (10.1-14.3) L 12/25/21 05:12 Hct 24.7 % (30.3-42.9) L 12/25/21 05:12 MCV 80 fl (79-97) 12/25/21 05:12 MCH 27 pg (28-32) L 12/25/21 05:12 MCHC 34 % (30-34) 12/25/21 05:12 RDW 17.7 % (13.2-15.2) H 12/25/21 05:12 Plt Count 105 K/mm3 (140-440) L 12/25/21 05:12 Lymph % (Auto) 5.9 % (13.4-35.0) L 12/17/21 04:00 [place] % (Auto) 4.6 % (0.0-7.3) 12/17/21 04:00 Eos % (Auto) 0.4 % (0.0-4.3) 12/17/21 04:00 Baso % (Auto) 0.8 % (0.0-1.8) 12/17/21 04:00 Lymph # (Auto) 0.7 K/mm3 (1.2-5.4) L 12/17/21 04:00 [place] # (Auto) 0.6 K/mm3 (0.0-0.8) 12/17/21 04:00 Eos # (Auto) 0.0 K/mm3 (0.0-0.4) 12/17/21 04:00 Baso # (Auto) 0.1 K/mm3 (0.0-0.1) 12/17/21 04:00 Add Manual Diff Complete 12/18/21 05:00 Total Counted 100 12/19/21 05:00 Seg Neutrophils % Entry Driver Operator 12/19/21 05:00 Seg Neuts % (Manual) 93.0 % (40.0-70.0) H 12/19/21 05:00 Band Neutrophils % 2.0 % 12/19/21 05:00 Lymphocytes % (Manual) 2.0 % (13.4-35.0) L 12/19/21 05:00 Reactive Lymphs % (Man) 0 % 12/19/21 05:00 Monocytes % (Manual) 1.0 % (0.0-7.3) 12/19/21 05:00 Eosinophils % (Manual) 0 % (0.0-4.3) 12/19/21 05:00 Basophils % (Manual) 0 % (0.0-1.8) 12/19/21 05:00 Metamyelocytes % 2.0 % 12/19/21 05:00 Myelocytes % 0 % 12/19/21 05:00 Promyelocytes % 0 % 12/19/21 05:00 Blast Cells % 0 % 12/19/21 05:00 Nucleated RBC % Not Reportable 12/19/21 05:00 Seg Neutrophils # 10.9 K/mm3 (1.8-7.7) H 12/17/21 04:00 Seg Neutrophils # Man 17.6 K/mm3 (1.8-7.7) H 12/19/21 05:00 Band Neutrophils # 0.4 K/mm3 12/19/21 05:00 Lymphocytes # (Manual) 0.4 K/mm3 (1.2-5.4) L 12/19/21 05:00 Abs React Lymphs (Man) 0.0 K/mm3 12/19/21 05:00 Monocytes # (Manual) 0.2 K/mm3 (0.0-0.8) 12/19/21 05:00 Eosinophils # (Manual) 0.0 K/mm3 (0.0-0.4) 12/19/21 05:00 Basophils # (Manual) 0.0 K/mm3 (0.0-0.1) 12/19/21 05:00 Metamyelocytes # 0.4 K/mm3 12/19/21 05:00 Myelocytes # 0.0 K/mm3 12/19/21 05:00 Promyelocytes # 0.0 K/mm3 12/19/21 05:00 Blast Cells # 0.0 K/mm3 12/19/21 05:00 WBC Morphology Not Reportable 12/19/21 05:00 Hypersegmented Neuts Not Reportable 12/19/21 05:00 Hyposegmented Neuts 1+ 12/19/21 05:00 Hypogranular Neuts Not Reportable 12/19/21 05:00 Smudge Cells Not Reportable 12/19/21 05:00 Toxic Granulation Not Reportable 12/19/21 05:00 Toxic Vacuolation Not Reportable 12/19/21 05:00 Dohle Bodies Not Reportable 12/19/21 05:00 Pelger-Huet Anomaly Not Reportable 12/19/21 05:00 Charles Rods Not Reportable 12/19/21 05:00 Platelet Estimate Consistent w auto 12/19/21 05:00 Clumped Platelets Not Reportable 12/19/21 05:00 Plt Clumps, EDTA Not Reportable 12/19/21 05:00 Large Platelets Not Reportable 12/19/21 05:00 Giant Platelets Not Reportable 12/19/21 05:00 Platelet Satelliting Not Reportable 12/19/21 05:00 Plt Morphology Comment Not Reportable 12/19/21 05:00 RBC Morphology Not Reportable 12/19/21 05:00 Dimorphic RBCs Not Reportable 12/19/21 05:00 Polychromasia Not Reportable 12/19/21 05:00 Hypochromasia 1+ 12/19/21 05:00 Poikilocytosis Few 12/19/21 05:00 Anisocytosis Few 12/19/21 05:00 Microcytosis Not Reportable 12/19/21 05:00 Macrocytosis Not Reportable 12/19/21 05:00 Spherocytes Not Reportable 12/19/21 05:00 Pappenheimer Bodies Not Reportable 12/19/21 05:00 Sickle Cells Not Reportable 12/19/21 05:00 Target Cells Rare 12/19/21 05:00 Tear Drop Cells Not Reportable 12/19/21 05:00 Ovalocytes Rare 12/19/21 05:00 Helmet Cells Not Reportable 12/19/21 05:00 Murphy-Bloomsbury Bodies Not Reportable 12/19/21 05:00 Stanton Rings Not Reportable 12/19/21 05:00 Manila Cells Not Reportable 12/19/21 05:00 Bite Cells Not Reportable 12/19/21 05:00 Crenated Cell Not Reportable 12/19/21 05:00 Elliptocytes Not Reportable 12/19/21 05:00 Acanthocytes (Spur) Not Reportable 12/19/21 05:00 Rouleaux Rare 12/19/21 05:00 Hemoglobin C Crystals Not Reportable 12/19/21 05:00 Schistocytes Rare 12/19/21 05:00 Malaria parasites Not Reportable 12/19/21 05:00 Percent Retic 0.37 % (0.78-2.58) L 12/18/21 05:00 Bryson Bodies Not Reportable 12/19/21 05:00 Haptoglobin 193 mg/dL (43-212) 12/18/21 05:00 Hem Pathologist Commnt Not Reportable 12/19/21 05:00 PT 17.7 Sec. (12.2-14.9) H 12/22/21 14:05 INR 1.30 (0.87-1.13) H 12/22/21 14:05 Fibrinogen 351 mg/dl (211-480) 12/21/21 08:35 Heparin Anti-Xa, Unfract Negative (Negative) 12/17/21 09:30 ABG pH 7.450 pH Units (7.350-7.450) 12/24/21 Unknown POC ABG pCO2 36.0 mmHg (32.0-48.0) 12/21/21 10:20 ABG pCO2 39.1 mm Hg 12/24/21 Unknown POC ABG pO2 126.1 mmHg (83-108) H 12/21/21 10:20 ABG pO2 109.1 mm Hg (80.0-90.0) H 12/24/21 Unknown POC ABG HCO3 24.3 12/21/21 10:20 ABG HCO3 26.6 mmol/L (20.0-26.0) H 12/24/21 Unknown ABG O2 Saturation 98.1 % (95.0-99.0) 12/24/21 Unknown ABG O2 Content 9.4 (0.0-44) 12/24/21 Unknown POC ABG Base Excess 0.6 12/21/21 10:20 ABG Base Excess 2.4 mmol/L (-2.0-3.0) 12/24/21 Unknown ABG Hemoglobin 6.8 gm/dl (12.0-16.0) L 12/24/21 Unknown ABG Oxyhemoglobin 97.4 (94-98) 12/21/21 10:20 ABG Carboxyhemoglobin 1.8 % (0.0-5.0) 12/24/21 Unknown ABG Methemoglobin 0.5 % (0.0-1.5) 12/24/21 Unknown ABG Sodium Not Reportable 12/21/21 10:20 ABG Potassium Not Reportable 12/21/21 10:20 ABG Chloride Not Reportable 12/21/21 10:20 ABG Glucose Not Reportable 12/21/21 10:20 VBG pO2 > 258.0 (25.0-47.0) H 12/15/21 19:50 Oxyhemoglobin 95.8 % (95.0-99.0) 12/24/21 Unknown Carboxyhemoglobin 0.9 (0.5-1.5) 12/21/21 10:20 FiO2 30 % 12/24/21 Unknown FiO2 % 30.0 12/21/21 10:20 Sodium 138 mmol/L (137-145) 12/25/21 05:12 Potassium 3.5 mmol/L (3.6-5.0) L 12/25/21 05:12 Chloride 99.3 mmol/L (98-107) 12/25/21 05:12 Carbon Dioxide 25 mmol/L (22-30) 12/25/21 05:12 Anion Gap 17 mmol/L 12/25/21 05:12 BUN 38 mg/dL (7-17) H 12/25/21 05:12 Creatinine 3.7 mg/dL (0.6-1.2) H 12/25/21 05:12 Estimated GFR 15 ml/min 12/25/21 05:12 BUN/Creatinine Ratio 10 % 12/25/21 05:12 Glucose 201 mg/dL (65-100) H 12/25/21 05:12 POC Glucose 174 mg/dL (70-105) H 12/24/21 23:54 Lactic Acid 1.90 mmol/L (0.7-2.0) 12/16/21 05:00 Calcium 8.0 mg/dL (8.4-10.2) L 12/25/21 05:12 Phosphorus 4.90 mg/dL (2.5-4.5) H 12/23/21 04:39 Magnesium 1.90 mg/dL (1.7-2.3) 12/23/21 04:39 Iron 13 ug/dL (37-170) L 12/18/21 05:00 TIBC 109 mcg/dL (250-450) L 12/18/21 05:00 Ferritin 383.4 ng/mL (10.0-200.0) H 12/18/21 05:00 Total Bilirubin 0.60 mg/dL (0.1-1.2) 12/11/21 15:40 AST 22 units/L (5-40) 12/11/21 15:40 ALT 13 units/L (7-56) 12/11/21 15:40 Alkaline Phosphatase 237 units/L (35-129) H 12/11/21 15:40 Lactate Dehydrogenase 249 units/L (91-180) H 12/21/21 08:35 Troponin T 0.175 ng/mL (0.00-0.029) H* 12/12/21 04:43 C-Reactive Protein 38.50 mg/dL (0.00-1.30) H 12/15/21 14:40 Total Protein 7.4 g/dL (6.3-8.2) 12/11/21 15:40 Albumin 3.6 g/dL (3.9-5) L 12/11/21 15:40 Albumin/Globulin Ratio 0.9 % 12/11/21 15:40 Triglycerides 92 mg/dL (2-149) 12/11/21 15:40 Cholesterol 72 mg/dL (50-199) 12/11/21 15:40 LDL Cholesterol Direct 16 mg/dL (50-130) L 12/11/21 15:40 HDL Cholesterol 41 mg/dL (40-59) 12/11/21 15:40 Cholesterol/HDL Ratio 1.75 % 12/11/21 15:40 Serotonin Release Assay See scanned result 12/17/21 09:30 Procalcitonin 46.16 ng/mL (<0.15) 12/15/21 04:11 Arterial Blood Glucose Not Reportable 12/21/21 10:20 Random Vancomycin 15.6 ug/mL (0-40.0) 12/16/21 05:00 Heparin-induced Plt Ab Negative (Negative) 12/17/21 09:30 UF Heparin High Dose 1 % Release 12/17/21 09:30 JAMILAH UFH Low Dose 0.1 0 % Release 12/17/21 09:30 JAMILAH UFH Low Dose 0.5 0 % Release 12/17/21 09:30 Blood Type O POSITIVE 12/23/21 16:20 Antibody Screen Negative 12/23/21 16:20 Crossmatch See Detail 12/23/21 16:20 Johnson/IV: Voiding Method Incontinent Active Medications - Current Medications Current Medications: Generic Name Dose Route Start Last Admin Trade Name Freq PRN Reason Stop Dose Admin Acetaminophen 650 mg 12/13/21 23:00 12/13/21 23:18 Acetaminophen 650 Mg Rect Supp OK 650 mg Q4H PRN Administration Pain, Mild (1-3) Acetaminophen 650 mg 12/24/21 14:02 12/25/21 02:04 Acetaminophen 325 Mg/10.15 Ml Oral Liqd Unit Dose FEEDTUBE 650 mg Q6H PRN Administration Pain, Mild (1-3) Albuterol 2.5 mg 12/11/21 22:14 Albuterol 2.5 Mg/3 Ml Nebu IH Q6HR PRN Wheezing Albuterol/Ipratropium 1 ampul 12/14/21 08:00 12/24/21 19:11 Ipratropium/Albuterol Sulfate 3 Ml Ampul.Neb IH 1 ampul TIDRT KRISTA Administration Lipase/Protease/Amylase 1 each 12/16/21 11:15 Lipase 10,500/Protease 25,000/Amylase 43,750 (Units) Dr Blanco FEEDTUBE PRN PRN For Clogged Feeding Tube Atorvastatin Calcium 80 mg 12/15/21 22:00 12/24/21 22:00 Atorvastatin 40 Mg Tab FEEDTUBE 80 mg QHS KRISTA Administration Budesonide 0.5 mg 12/13/21 08:00 12/24/21 19:11 Budesonide 0.5 Mg/2 Ml Nebu IH 0.5 mg Q12HRT KRISTA Administration Dextrose 50 ml 12/11/21 22:23 12/16/21 06:24 Dextrose 50% In Water (25gm) 50 Ml Syringe IV 15 ml Q30MIN PRN Administration Hypoglycemia Protocol Hydrophilic Ointment 1 applic 12/16/21 14:30 Lip Therapy Vaseline TP Q2HR PRN Dry Lips Sodium Chloride 100 mls @ 999 mls/hr 12/12/21 12:00 Nacl 0.9% IV ABEL PRN Hypotension Ceftriaxone Sodium 2 gm in 100 mls @ 200 mls/hr 12/16/21 15:00 12/24/21 14:07 Rocephin/Ns 2 Gm/100 Ml IV 12/29/21 15:29 200 mls/hr Q24H KRISTA Administration Protocol Insulin Human Lispro 0 unit 12/15/21 12:00 12/25/21 06:05 Insulin Lispro 100 Unit/Ml SUB-Q 4 unit Q6HR KRISTA Administration Protocol Levetiracetam 500 mg 12/16/21 18:00 12/23/21 17:32 Levetiracetam 500 Mg/5 Ml Oral Liqd FEEDTUBE 500 mg TuThSa KRISTA Administration Midodrine 5 mg 12/24/21 12:00 12/24/21 16:40 Midodrine 5 Mg Tab FEEDTUBE Not Given TID@0800,1200,1600 [facility] Morphine Sulfate 2 mg 12/11/21 22:11 12/24/21 03:20 Morphine 4 Mg/1 Ml Inj IV 2 mg Q5MIN PRN Administration Chest Pain unrelieved by NTG Multi-Ingred Cream/Lotion/Oil/Oint 1 applic 12/16/21 14:10 Mineral Oil/Petrolatum, White Ophth Oint 3.5 Gm OU Q4HR PRN Dry Eye(s) Nitroglycerin 0.4 mg 12/11/21 22:11 Nitroglycerin 0.4 Mg Tab Subl SL Q5M PRN Chest Pain Pantoprazole Sodium 40 mg 12/22/21 22:00 12/24/21 22:00 Pantoprazole 40 Mg Inj IV 40 mg BID KRISTA Administration Polyethylene Glycol/Electrolytes 4,000 ml 12/23/21 14:48 12/23/21 17:44 Polyethylene Glycol/Elect Soln 4000 Ml NGTUBE 4,000 ml ONCE KRISTA Administration Senna/Docusate Sodium 1 tab 12/16/21 22:00 12/24/21 22:00 Sennosides/Docusate Sodium 8.6/50 Mg Tab FEEDTUBE 1 tab BID KRISTA Administration Simple Syrup 15 ml 12/16/21 11:15 Simple Syrup 15 Ml FEEDTUBE PRN PRN Hypoglycemia Simple Syrup 30 ml 12/16/21 11:15 Simple Syrup 15 Ml FEEDTUBE PRN PRN Hypoglycemia Sodium Bicarbonate 325 mg 12/16/21 11:15 Sodium Bicarbonate 325 Mg Tab FEEDTUBE PRN PRN For Clogged Feeding Tube Sodium Chloride 10 ml 12/11/21 22:11 12/24/21 09:24 Sodium Chloride 0.9% 10 Ml Flush Syringe IV 10 ml PRN PRN Administration LINE FLUSH Nutrition/Malnutrition Assess - Dietary Evaluation Nutrition/Malnutrition Findings: Nutrition Notes Start: 12/12/21 11:57 Freq: Status: Active Protocol: Document 12/24/21 17:36 EVERARDO (Rec: 12/24/21 17:55 EVERARDO [id number]) Nutrition Notes Initial or Follow up Brief Note Current Diagnosis CKD (stage V CKD),Coronary Artery Disease,Sepsis, Hypertension,Heart Failure, Respiratory Failure Other Pertinent Diagnosis Colitis, Bacteremia, ESRD+HD, Septic Shock, Thrombocytopenia , Anemia,... Current Diet TF-Nepro w/CARBSTEADY @ 30 ml/ hr (from L 12/24). Height 4 ft 11 in Weight 61.9 kg [place] Body Weight (kg) 43.18 BMI 27.6 Weight change and time frame No body weight change in 2 days reported. Weight Status Overweight Subjective/Other Information RD consult for TF continuation . TF resumed on L 12/24. Pt continues on Mechanical ventilation, O2 saturation @ 98%, according to MV notes. Percent of energy/protein needs met: Prescribed TF-Nepro w/ CARBSTEADY @ 30 ml/hr provides for energy/protein needs (1, 296 Kcal/58 g) during LOS, 103 % Kcal; 82% AA. #1 Nutrition Diagnosis Inadequate oral intake Diagnosis Progress(for reassessment Continues documentation) Is patient on ventilator? Yes Is Patient Ambulatory and/or Out of Bed No REE-([facility]-confined to bed) [phone] Calculation Used for Recommendations [facility] Additional Notes Protein: >1.2 g/Kg ABW; >74 g/ day. Fluids: 1-1.5 L/day, or as per MD. Nutrition Intervention Nutrition Support: Continue TF-Nepro w/CARBSTEADY @ 30 ml/hr. Flush: 130 ml water Q 4 hr, or as per MD. Kcal 1,269 Protein (gm) 58 Carbohydrates (gm) 116 Fat (gm) 69 Fluid (mL) 523 Fiber (gm) 9 % RDI: 103% Kcal; 82% AA. Goal #1 Provide at least 75% of energy /protein needs through Enteral Feeding during LOS. Goal #2 Maintain body weight within +/ -3% of admission body weight during LOS. Follow-Up By: 12/31/21 Additional Comments Continue monitoring, Ventilation status, renal function, GI Bleed, TF tolerance and BM.
[2021-12-24] MEDS ORDERED: MIDODRINE 10 MG TAB FEEDTUBE SCH (10:04)
--- NOTE | 2021-12-24 10:55 | Progress Note ---
Assessment and Plan Cultures: Blood culture: group B strep Catheter tip culture: Group B strep Blood culture 12/16/2021: No growth A/P: 66-year-old female past medical history hypertension, ESRD on HD now with: #Septic shock secondary to Group B strep bacteremia: Source possibly from dialysis. Catheter since been removed. TTE without evidence of vegetations. #Diffuse severe colitis: Noted on colonoscopy. Per GI, endoscopic appearance not classic for IBD. Ischemic versus inflammatory. C. difficile PCR was ordered. #Thrombocytopenia: Probably secondary to sepsis. Hematology evaluated. #ESRD on HD: Renally dose antibiotics #Acute GI bleed, anemia #Thrombocytopenia: Stable to improving Recs: -Continue ceftriaxone 2 g every 24 hours x 2 weeks -Follow-up C. difficile PCR, monitor for any diarrhea -Wound care Garcia Bowens MD, FACP, [facility] O: [phone] F: [phone] C: [phone] Subjective Date of service: 12/24/21 Principal diagnosis: Septic shock ; Bacteremia; ESRD on dialysis; AMS; NSTEMI; HTN; DM II Interval history: No fever. Underwent colonoscopy, found to have diffuse severe colitis throughout the entire colon with edema and edema with nodularity, endoscopic appearance not classic for Crohn's disease or ulcerative colitis. Remains on the vent. Objective - Exam Narrative Exam: Physical Exam: Constitutional: sedated, intubated, on the vent Head, Ears, Nose: Normocephalic, atraumatic. External ears, nose normal Eyes: Conjunctivae/corneas clear. No icterus. No ptosis. Neck: intubated Oral: intubated Cardiovascular: S1, S2 + Respiratory: AE fair bilaterally and equal GI: Soft, bowel sounds + Musculoskeletal: No pedal edema, no cyanosis. Skin: No rash or abscess. Hem/Lymphatic: No palpable cervical or supraclavicular nodes. No lymphangitis Psych: no agitation Neurological: sedated, intubated, on the vent, exam limited - Constitutional Vitals: Vital Signs Temp Pulse Resp BP Pulse Ox 98.5 F 79 10 L 152/68 100 12/24/21 08:30 12/24/21 10:00 12/24/21 10:00 12/24/21 10:00 12/24/21 10:00 Temperature -Last 24 Hours Temperature 98.5 F Temperature 98.5 F Temperature 38.1 F Temperature 98.3 F Temperature 98.3 F Temperature 98.0 F Temperature 98.0 F Temperature 98.0 F Temperature 98.0 F Temperature 98.0 F Temperature 98.0 F Temperature 98.0 F Temperature 98.9 F Temperature 98.9 F Temperature 98.8 F Temperature 97.9 F Temperature 97.8 F Temperature 99.2 F Temperature 99 F - Labs CBC & Chem 7: 12/24/21 06:00 12/24/21 06:00 Labs: Abnormal lab results 12/23/21 12/23/21 12/23/21 Range/Units 11:44 14:05 16:59 WBC (4.5-11.0) K/mm3 RBC (3.65-5.03) M/mm3 Hgb 9.3 L (10.1-14.3) gm/dl Hct 28.7 L (30.3-42.9) % MCH (28-32) pg RDW (13.2-15.2) % Plt Count (140-440) K/mm3 Potassium (3.6-5.0) mmol/L Chloride (98-107) mmol/L BUN (7-17) mg/dL Creatinine (0.6-1.2) mg/dL Glucose (65-100) mg/dL POC Glucose 132 H 180 H (70-105) mg/dL Calcium (8.4-10.2) mg/dL 12/23/21 12/23/21 12/24/21 Range/Units 21:44 23:30 03:45 WBC (4.5-11.0) K/mm3 RBC (3.65-5.03) M/mm3 Hgb (10.1-14.3) gm/dl Hct (30.3-42.9) % MCH (28-32) pg RDW (13.2-15.2) % Plt Count (140-440) K/mm3 Potassium (3.6-5.0) mmol/L Chloride (98-107) mmol/L BUN (7-17) mg/dL Creatinine (0.6-1.2) mg/dL Glucose (65-100) mg/dL POC Glucose 141 H 146 H 199 H (70-105) mg/dL Calcium (8.4-10.2) mg/dL 12/24/21 12/24/21 Range/Units 06:00 06:00 WBC 16.8 H (4.5-11.0) K/mm3 RBC 2.96 L (3.65-5.03) M/mm3 Hgb 7.5 L (10.1-14.3) gm/dl Hct 23.3 L (30.3-42.9) % MCH 26 L (28-32) pg RDW 17.8 H (13.2-15.2) % Plt Count 89 L (140-440) K/mm3 Potassium 3.3 L (3.6-5.0) mmol/L Chloride 97.3 L (98-107) mmol/L BUN 31 H (7-17) mg/dL Creatinine 2.8 H (0.6-1.2) mg/dL Glucose 208 H (65-100) mg/dL POC Glucose (70-105) mg/dL Calcium 7.6 L (8.4-10.2) mg/dL
[2021-12-24] MEDS ORDERED: SCOPOLAMINE TRANSDERMAL PATCH 72 HR TD NR (11:53)
[2021-12-24] MEDS ORDERED: GLYCOPYRROLATE 0.4 MG/2 ML INJ IV ONE (12:00)
--- NOTE | 2021-12-24 12:13 | Progress Note ---
Assessment and Plan Septic shock Bacteremia with gram-positive cocci End-stage renal disease on dialysis Colitis Acute toxic metabolic encephalopathy Thrombocytopenia Non-ST elevation myocardial infarction A-Fib with RVR Hypertension Diabetes type 2 Anemia that is normocytic - ABG after 2 hour SBT - extubate if passes - Robinul 0.2mg IV X 1 now re: secretions - scopolamine patch X 1 dose - prn BIPAP post extubation - ? empiric Flagyl; awaiting assays for infectious etiology - continue to trend H&H - continue care as below otherwise; - continue wound care per RN / WCN - prn vasopressors for target MAP > 65 mmHg - thrombocytopenia is improving (HIT assay negative) - Daily SAT and SBT assessment as tolerated - continue to wean supplemental oxygen for target O2 sat's > 90% acutely - VAP bundle addressed - continue lung protective strategies - continue bronchodilators with pulmonary hygiene per RT - wean per pulmonary driven protocols otherwise - continue HD/UF for toxin and volume clearance - avoid nephrotoxins, renally dose all medications - continue to avoid benzodiazepine's, reduce the possibility of delirium - complete AB's per ID rec's (On Rocephin) - prn analgesia per CPOT score - Maintenance of sleep-wake cycle, avoid delirium - continue enteral nutritional support at goal rate as tolerated - G.I. & VTE prophylaxis - PT/OT/ROM exercises - continue mobility protocols for pressure ulcer prophylaxis - Monitor hemodynamics closely - continue other care per attending / other consultants - discharge planning ongoing concurrently .... Re-evaluate in am & prn CONDITION: CRITICAL PROGNOSIS: GUARDED CODE STATUS: FULL CODE The high probability of a clinically significant, sudden or life-threatening deterioration of the [respiratory, cardiovascular, renal & neurologic] system(s) required my full and direct attention, intervention and personal management. The aggregate critical care time was [34] minutes without overlap. Time includes spent on; [x] Data Review and interpretation [x] Patient assessment and monitoring of vital signs [x] Documentation [x] Medication orders and management Subjective Date of service: 12/24/21 Principal diagnosis: Septic shock ; Bacteremia; ESRD on dialysis; AMS; NSTEMI; HTN; DM II Interval history: Patient is seen today for: Septic shock ; gm +ve Bacteremia; ESRD on dialysis; AMS; NSTEMI; Hypertension; DM II Seen and examined at bedside; 24hour events reviewed; nursing and respiratory care staff consulted; no adverse overnight events reported to me; resting peacefully in bed; on SBT and tolerating well; s/p colonoscopy and "Diffuse severe colitis throughout the entire colon with erythema and edema and nodularity." noted; A&O; denies acute chest pain or increased SOB; afebrile Objective Vital Signs - 12hr 12/24/21 12/24/21 12/24/21 00:24 00:29 00:54 Temperature 98.0 F 98.0 F 98.0 F Pulse Rate 65 68 68 Pulse Rate [ Anterior Bilateral Throughout] Respiratory 12 12 12 Rate Respiratory Rate [Anterior Bilateral Throughout] Blood Pressure 159/78 159/78 168/72 O2 Sat by Pulse 100 100 100 Oximetry 12/24/21 12/24/21 12/24/21 01:00 01:38 02:00 Temperature 98.0 F Pulse Rate 73 72 76 Pulse Rate [ Anterior Bilateral Throughout] Respiratory 12 12 13 Rate Respiratory Rate [Anterior Bilateral Throughout] Blood Pressure 160/68 155/67 O2 Sat by Pulse 100 100 100 Oximetry 12/24/21 12/24/21 12/24/21 02:21 03:00 03:01 Temperature 98.0 F 98.0 F Pulse Rate 73 81 70 Pulse Rate [ Anterior Bilateral Throughout] Respiratory 12 12 12 Rate Respiratory Rate [Anterior Bilateral Throughout] Blood Pressure 168/72 175/70 175/71 O2 Sat by Pulse 100 96 100 Oximetry 12/24/21 12/24/21 12/24/21 03:02 03:20 03:28 Temperature 98.0 F 98.3 F Pulse Rate 70 70 Pulse Rate [ Anterior Bilateral Throughout] Respiratory 12 12 12 Rate Respiratory Rate [Anterior Bilateral Throughout] Blood Pressure 175/71 154/68 O2 Sat by Pulse 100 99 Oximetry 12/24/21 12/24/21 12/24/21 03:43 03:50 04:00 Temperature 98.3 F Pulse Rate 70 77 Pulse Rate [ Anterior Bilateral Throughout] Respiratory 12 14 13 Rate Respiratory Rate [Anterior Bilateral Throughout] Blood Pressure 171/77 O2 Sat by Pulse 100 100 Oximetry 12/24/21 12/24/21 12/24/21 04:45 05:00 06:00 Temperature Pulse Rate 81 85 Pulse Rate [ Anterior Bilateral Throughout] Respiratory 12 12 12 Rate Respiratory Rate [Anterior Bilateral Throughout] Blood Pressure 166/73 181/77 O2 Sat by Pulse 100 100 100 Oximetry 12/24/21 12/24/21 12/24/21 06:30 07:00 07:58 Temperature Pulse Rate 84 84 73 Pulse Rate [ Anterior Bilateral Throughout] Respiratory 12 Rate Respiratory Rate [Anterior Bilateral Throughout] Blood Pressure 165/71 150/64 O2 Sat by Pulse 98 97 Oximetry 12/24/21 12/24/21 12/24/21 08:00 08:30 09:00 Temperature 38.1 F L 98.5 F Pulse Rate 72 72 79 Pulse Rate [ 73 Anterior Bilateral Throughout] Respiratory 12 12 13 Rate Respiratory 12 Rate [Anterior Bilateral Throughout] Blood Pressure 150/64 150/64 153/62 O2 Sat by Pulse 100 100 97 Oximetry 12/24/21 12/24/21 12/24/21 09:05 10:00 11:00 Temperature Pulse Rate 76 79 76 Pulse Rate [ Anterior Bilateral Throughout] Respiratory 12 10 L 12 Rate Respiratory Rate [Anterior Bilateral Throughout] Blood Pressure 153/62 152/68 155/63 O2 Sat by Pulse 100 100 100 Oximetry 12/24/21 11:30 Temperature Pulse Rate 77 Pulse Rate [ Anterior Bilateral Throughout] Respiratory 16 Rate Respiratory Rate [Anterior Bilateral Throughout] Blood Pressure 155/63 O2 Sat by Pulse 100 Oximetry Constitutional: no acute distress, other (elderly female with normal respiratory effort at rest) Eyes: non-icteric ENT: oropharynx moist, oropharyngeal exudate pre (clear, moderate), other (ETT 23 cm JUSTIN) Neck: supple, no JVD Effort: normal Ascultation: Bilateral: rhonchi (scant) Percussion: Bilateral: not dull Cardiovascular: regular rate and rhythm Gastrointestinal: normoactive bowel sounds, soft, non-tender, non-distended (protuberant) Integumentary: rash (right groin / ? scar), other (Left upper extremity AV graft; right forearm blisters (open and closed) and induration; no pus) Extremities: no cyanosis, pulses normal, no ischemia or petechiae, edema (right upper extremity) Neurologic: non-focal exam (grossly), pupils equal and round, CN II-XII normal, motor strength normal and Psychiatric: mood appropriate, affect normal CBC and BMP: 12/24/21 06:00 12/24/21 06:00 ABG, PT/INR, D-dimer: ABG ABG pH 7.448 (7.320-7.450) 12/21/21 10:20 POC ABG pCO2 36.0 mmHg (32.0-48.0) 12/21/21 10:20 ABG pCO2 45.6 mm Hg 12/18/21 20:00 POC ABG pO2 126.1 mmHg (83-108) H 12/21/21 10:20 ABG pO2 62.5 mm Hg (80.0-90.0) L 12/18/21 20:00 POC ABG HCO3 24.3 12/21/21 10:20 ABG O2 Saturation 98.6 (0-100) 12/21/21 10:20 PT/INR, D-dimer PT 17.7 Sec. (12.2-14.9) H 12/22/21 14:05 INR 1.30 (0.87-1.13) H 12/22/21 14:05 Abnormal lab findings: Abnormal Labs 12/11/21 12/11/21 12/12/21 14:52 15:40 04:43 WBC RBC 3.57 L Hgb 9.4 L Hct 29.5 L MCH 26 L 27 L RDW 17.8 H 17.9 H Plt Count 119 L 110 L Lymph % (Auto) 4.0 L Lymph # (Auto) 0.3 L Seg Neutrophils % 90.0 H Seg Neuts % (Manual) Lymphocytes % (Manual) Monocytes % (Manual) Nucleated RBC % Seg Neutrophils # Seg Neutrophils # Man Lymphocytes # (Manual) Percent Retic PT INR Fibrinogen ABG pH POC ABG pO2 ABG pO2 ABG HCO3 ABG O2 Saturation ABG Base Excess ABG Hemoglobin VBG pO2 Oxyhemoglobin Sodium Potassium Chloride Carbon Dioxide 18 L BUN 76 H Creatinine 9.2 H Glucose POC Glucose Lactic Acid Calcium 7.7 L Phosphorus Magnesium Iron TIBC Ferritin Alkaline Phosphatase 237 H Lactate Dehydrogenase Troponin T 0.168 H* C-Reactive Protein Albumin 3.6 L LDL Cholesterol Direct 16 L 12/12/21 12/12/21 12/12/21 04:43 04:43 08:49 WBC RBC Hgb Hct MCH RDW Plt Count Lymph % (Auto) Lymph # (Auto) Seg Neutrophils % Seg Neuts % (Manual) Lymphocytes % (Manual) Monocytes % (Manual) Nucleated RBC % Seg Neutrophils # Seg Neutrophils # Man Lymphocytes # (Manual) Percent Retic PT INR Fibrinogen ABG pH POC ABG pO2 ABG pO2 ABG HCO3 ABG O2 Saturation ABG Base Excess ABG Hemoglobin VBG pO2 Oxyhemoglobin Sodium 136 L Potassium Chloride 96.0 L Carbon Dioxide BUN 85 H Creatinine 9.6 H Glucose 57 L POC Glucose 47 L Lactic Acid Calcium 7.8 L Phosphorus Magnesium Iron TIBC Ferritin Alkaline Phosphatase Lactate Dehydrogenase Troponin T 0.175 H* C-Reactive Protein Albumin LDL Cholesterol Direct 12/12/21 12/13/21 12/13/21 11:12 07:30 07:30 WBC RBC Hgb 9.7 L Hct 30.0 L MCH 27 L RDW 18.0 H Plt Count 99 L Lymph % (Auto) 4.8 L Lymph # (Auto) 0.3 L Seg Neutrophils % 88.2 H Seg Neuts % (Manual) Lymphocytes % (Manual) Monocytes % (Manual) Nucleated RBC % Seg Neutrophils # Seg Neutrophils # Man Lymphocytes # (Manual) Percent Retic PT INR Fibrinogen ABG pH POC ABG pO2 ABG pO2 ABG HCO3 ABG O2 Saturation ABG Base Excess ABG Hemoglobin VBG pO2 Oxyhemoglobin Sodium Potassium 5.1 H Chloride 97.8 L Carbon Dioxide 16 L BUN 92 H Creatinine 10.6 H Glucose 121 H POC Glucose 64 L Lactic Acid Calcium 7.6 L Phosphorus Magnesium Iron TIBC Ferritin Alkaline Phosphatase Lactate Dehydrogenase Troponin T C-Reactive Protein Albumin LDL Cholesterol Direct 12/13/21 12/13/21 12/13/21 08:06 11:32 16:59 WBC RBC Hgb Hct MCH RDW Plt Count Lymph % (Auto) Lymph # (Auto) Seg Neutrophils % Seg Neuts % (Manual) Lymphocytes % (Manual) Monocytes % (Manual) Nucleated RBC % Seg Neutrophils # Seg Neutrophils # Man Lymphocytes # (Manual) Percent Retic PT INR Fibrinogen ABG pH POC ABG pO2 ABG pO2 ABG HCO3 ABG O2 Saturation ABG Base Excess ABG Hemoglobin VBG pO2 Oxyhemoglobin Sodium Potassium Chloride Carbon Dioxide BUN Creatinine Glucose POC Glucose 118 H 128 H 130 H Lactic Acid Calcium Phosphorus Magnesium Iron TIBC Ferritin Alkaline Phosphatase Lactate Dehydrogenase Troponin T C-Reactive Protein Albumin LDL Cholesterol Direct 12/13/21 12/14/21 12/14/21 20:16 11:10 11:10 WBC RBC Hgb 9.9 L Hct MCH 27 L RDW 18.1 H Plt Count 82 L Lymph % (Auto) 5.8 L Lymph # (Auto) 0.4 L Seg Neutrophils % 88.3 H Seg Neuts % (Manual) Lymphocytes % (Manual) Monocytes % (Manual) Nucleated RBC % Seg Neutrophils # Seg Neutrophils # Man Lymphocytes # (Manual) Percent Retic PT INR Fibrinogen ABG pH POC ABG pO2 ABG pO2 ABG HCO3 ABG O2 Saturation ABG Base Excess ABG Hemoglobin VBG pO2 Oxyhemoglobin Sodium Potassium Chloride Carbon Dioxide 21 L BUN 57 H Creatinine 7.1 H Glucose 105 H POC Glucose 113 H Lactic Acid Calcium Phosphorus Magnesium Iron TIBC Ferritin Alkaline Phosphatase Lactate Dehydrogenase Troponin T C-Reactive Protein Albumin LDL Cholesterol Direct 12/14/21 12/14/21 12/15/21 11:46 16:41 04:11 WBC RBC Hgb 9.9 L Hct 30.0 L MCH 27 L RDW 18.4 H Plt Count 57 L Lymph % (Auto) Lymph # (Auto) Seg Neutrophils % Seg Neuts % (Manual) Lymphocytes % (Manual) 9.0 L Monocytes % (Manual) 10.0 H Nucleated RBC % Seg Neutrophils # Seg Neutrophils # Man Lymphocytes # (Manual) 0.6 L Percent Retic PT INR Fibrinogen ABG pH POC ABG pO2 ABG pO2 ABG HCO3 ABG O2 Saturation ABG Base Excess ABG Hemoglobin VBG pO2 Oxyhemoglobin Sodium Potassium Chloride Carbon Dioxide BUN Creatinine Glucose POC Glucose 108 H 111 H Lactic Acid Calcium Phosphorus Magnesium Iron TIBC Ferritin Alkaline Phosphatase Lactate Dehydrogenase Troponin T C-Reactive Protein Albumin LDL Cholesterol Direct 12/15/21 12/15/21 12/15/21 04:11 08:48 10:02 WBC RBC Hgb Hct MCH RDW Plt Count Lymph % (Auto) Lymph # (Auto) Seg Neutrophils % Seg Neuts % (Manual) Lymphocytes % (Manual) Monocytes % (Manual) Nucleated RBC % Seg Neutrophils # Seg Neutrophils # Man Lymphocytes # (Manual) Percent Retic PT INR Fibrinogen ABG pH POC ABG pO2 ABG pO2 ABG HCO3 ABG O2 Saturation ABG Base Excess ABG Hemoglobin VBG pO2 Oxyhemoglobin Sodium Potassium Chloride Carbon Dioxide 19 L BUN 68 H Creatinine 7.6 H Glucose POC Glucose 68 L 65 L Lactic Acid Calcium 8.1 L Phosphorus Magnesium Iron TIBC Ferritin Alkaline Phosphatase Lactate Dehydrogenase Troponin T C-Reactive Protein Albumin LDL Cholesterol Direct 12/15/21 12/15/21 12/15/21 10:20 10:51 14:40 WBC RBC Hgb Hct MCH RDW Plt Count Lymph % (Auto) Lymph # (Auto) Seg Neutrophils % Seg Neuts % (Manual) Lymphocytes % (Manual) Monocytes % (Manual) Nucleated RBC % Seg Neutrophils # Seg Neutrophils # Man Lymphocytes # (Manual) Percent Retic PT INR Fibrinogen ABG pH POC ABG pO2 ABG pO2 ABG HCO3 ABG O2 Saturation ABG Base Excess ABG Hemoglobin VBG pO2 Oxyhemoglobin Sodium Potassium Chloride Carbon Dioxide BUN Creatinine Glucose POC Glucose 59 L 60 L Lactic Acid 2.50 H* Calcium Phosphorus Magnesium Iron TIBC Ferritin Alkaline Phosphatase Lactate Dehydrogenase Troponin T C-Reactive Protein Albumin LDL Cholesterol Direct 12/15/21 12/15/21 12/16/21 14:40 19:50 05:00 WBC 12.4 H RBC Hgb 9.6 L Hct 29.4 L MCH 26 L RDW 18.1 H Plt Count 40 L Lymph % (Auto) Lymph # (Auto) Seg Neutrophils % Seg Neuts % (Manual) 95.0 H Lymphocytes % (Manual) 5.0 L Monocytes % (Manual) Nucleated RBC % Seg Neutrophils # Seg Neutrophils # Man 11.8 H Lymphocytes # (Manual) 0.6 L Percent Retic PT INR Fibrinogen ABG pH POC ABG pO2 ABG pO2 463.3 H ABG HCO3 ABG O2 Saturation 99.6 H ABG Base Excess ABG Hemoglobin 10.9 L VBG pO2 > 258.0 H Oxyhemoglobin Sodium Potassium Chloride Carbon Dioxide BUN Creatinine Glucose POC Glucose Lactic Acid Calcium Phosphorus Magnesium Iron TIBC Ferritin Alkaline Phosphatase Lactate Dehydrogenase Troponin T C-Reactive Protein 38.50 H Albumin LDL Cholesterol Direct 12/16/21 12/16/21 12/16/21 05:00 06:15 09:58 WBC RBC Hgb Hct MCH RDW Plt Count Lymph % (Auto) Lymph # (Auto) Seg Neutrophils % Seg Neuts % (Manual) Lymphocytes % (Manual) Monocytes % (Manual) Nucleated RBC % Seg Neutrophils # Seg Neutrophils # Man Lymphocytes # (Manual) Percent Retic PT INR Fibrinogen ABG pH POC ABG pO2 ABG pO2 48.0 L ABG HCO3 ABG O2 Saturation 80.5 L ABG Base Excess -2.9 L ABG Hemoglobin 11.2 L VBG pO2 Oxyhemoglobin 78.8 L Sodium Potassium Chloride Carbon Dioxide BUN 75 H Creatinine 7.7 H Glucose POC Glucose 67 L Lactic Acid Calcium 8.3 L Phosphorus Magnesium Iron TIBC Ferritin Alkaline Phosphatase Lactate Dehydrogenase Troponin T C-Reactive Protein Albumin LDL Cholesterol Direct 12/16/21 12/16/21 12/17/21 11:06 23:24 04:00 WBC 12.3 H RBC 3.32 L Hgb 8.8 L Hct 26.5 L MCH 26 L RDW 18.0 H Plt Count 27 L Lymph % (Auto) 5.9 L Lymph # (Auto) 0.7 L Seg Neutrophils % 88.3 H Seg Neuts % (Manual) Lymphocytes % (Manual) Monocytes % (Manual) Nucleated RBC % Seg Neutrophils # 10.9 H Seg Neutrophils # Man Lymphocytes # (Manual) Percent Retic PT INR Fibrinogen ABG pH POC ABG pO2 ABG pO2 137.7 H ABG HCO3 ABG O2 Saturation ABG Base Excess ABG Hemoglobin 9.9 L VBG pO2 Oxyhemoglobin Sodium Potassium Chloride Carbon Dioxide BUN Creatinine Glucose POC Glucose 110 H Lactic Acid Calcium Phosphorus Magnesium Iron TIBC Ferritin Alkaline Phosphatase Lactate Dehydrogenase Troponin T C-Reactive Protein Albumin LDL Cholesterol Direct 12/17/21 12/17/21 12/17/21 04:30 04:30 11:18 WBC RBC Hgb Hct MCH RDW Plt Count Lymph % (Auto) Lymph # (Auto) Seg Neutrophils % Seg Neuts % (Manual) Lymphocytes % (Manual) Monocytes % (Manual) Nucleated RBC % Seg Neutrophils # Seg Neutrophils # Man Lymphocytes # (Manual) Percent Retic PT INR Fibrinogen ABG pH POC ABG pO2 ABG pO2 ABG HCO3 ABG O2 Saturation ABG Base Excess ABG Hemoglobin VBG pO2 Oxyhemoglobin Sodium Potassium Chloride Carbon Dioxide BUN 43 H Creatinine 5.0 H Glucose 129 H POC Glucose 149 H Lactic Acid Calcium 7.8 L Phosphorus 1.90 L Magnesium 1.60 L Iron TIBC Ferritin Alkaline Phosphatase Lactate Dehydrogenase Troponin T C-Reactive Protein Albumin LDL Cholesterol Direct 12/17/21 12/17/21 12/17/21 14:35 16:58 18:32 WBC RBC Hgb Hct MCH RDW Plt Count Lymph % (Auto) Lymph # (Auto) Seg Neutrophils % Seg Neuts % (Manual) Lymphocytes % (Manual) Monocytes % (Manual) Nucleated RBC % Seg Neutrophils # Seg Neutrophils # Man Lymphocytes # (Manual) Percent Retic PT 17.4 H INR 1.27 H Fibrinogen 486 H ABG pH 7.316 L POC ABG pO2 ABG pO2 74.0 L ABG HCO3 ABG O2 Saturation 93.7 L ABG Base Excess -3.3 L ABG Hemoglobin 8.8 L VBG pO2 Oxyhemoglobin 91.7 L Sodium Potassium Chloride Carbon Dioxide BUN Creatinine Glucose POC Glucose 219 H Lactic Acid Calcium Phosphorus Magnesium Iron TIBC Ferritin Alkaline Phosphatase Lactate Dehydrogenase Troponin T C-Reactive Protein Albumin LDL Cholesterol Direct 12/17/21 12/18/21 12/18/21 23:19 05:00 05:00 WBC 15.3 H RBC 3.25 L Hgb 8.4 L Hct 25.7 L MCH 26 L RDW 18.2 H Plt Count 28 L Lymph % (Auto) Lymph # (Auto) Seg Neutrophils % Seg Neuts % (Manual) 99.0 H Lymphocytes % (Manual) 1.0 L Monocytes % (Manual) Nucleated RBC % 1.0 H Seg Neutrophils # Seg Neutrophils # Man 15.1 H Lymphocytes # (Manual) 0.2 L Percent Retic 0.37 L PT INR Fibrinogen ABG pH POC ABG pO2 ABG pO2 ABG HCO3 ABG O2 Saturation ABG Base Excess ABG Hemoglobin VBG pO2 Oxyhemoglobin Sodium 135 L Potassium Chloride Carbon Dioxide 20 L BUN 53 H Creatinine 5.2 H Glucose 307 H POC Glucose 313 H Lactic Acid Calcium 8.0 L Phosphorus Magnesium Iron 13 L TIBC 109 L Ferritin Alkaline Phosphatase Lactate Dehydrogenase Troponin T C-Reactive Protein Albumin LDL Cholesterol Direct 12/18/21 12/18/21 12/18/21 05:00 05:00 09:00 WBC RBC Hgb Hct MCH RDW Plt Count Lymph % (Auto) Lymph # (Auto) Seg Neutrophils % Seg Neuts % (Manual) Lymphocytes % (Manual) Monocytes % (Manual) Nucleated RBC % Seg Neutrophils # Seg Neutrophils # Man Lymphocytes # (Manual) Percent Retic PT INR Fibrinogen 481 H ABG pH POC ABG pO2 ABG pO2 50.2 L ABG HCO3 ABG O2 Saturation 81.7 L ABG Base Excess -3.6 L ABG Hemoglobin 8.0 L VBG pO2 Oxyhemoglobin 80.0 L Sodium Potassium Chloride Carbon Dioxide BUN Creatinine Glucose POC Glucose Lactic Acid Calcium Phosphorus Magnesium Iron TIBC Ferritin 383.4 H Alkaline Phosphatase Lactate Dehydrogenase Troponin T C-Reactive Protein Albumin LDL Cholesterol Direct 12/18/21 12/18/21 12/18/21 10:56 11:10 12:00 WBC RBC Hgb Hct MCH RDW Plt Count Lymph % (Auto) Lymph # (Auto) Seg Neutrophils % Seg Neuts % (Manual) Lymphocytes % (Manual) Monocytes % (Manual) Nucleated RBC % Seg Neutrophils # Seg Neutrophils # Man Lymphocytes # (Manual) Percent Retic PT INR Fibrinogen ABG pH POC ABG pO2 ABG pO2 92.7 H ABG HCO3 19.8 L ABG O2 Saturation ABG Base Excess -3.8 L ABG Hemoglobin 6.6 L VBG pO2 Oxyhemoglobin Sodium Potassium Chloride Carbon Dioxide BUN Creatinine Glucose POC Glucose 190 H Lactic Acid Calcium Phosphorus 2.40 L D Magnesium Iron TIBC Ferritin Alkaline Phosphatase Lactate Dehydrogenase Troponin T C-Reactive Protein Albumin LDL Cholesterol Direct 12/18/21 12/18/21 12/18/21 18:06 20:00 23:05 WBC 19.2 H RBC 3.51 L Hgb 8.8 L Hct 27.8 L MCH 25 L RDW 18.1 H Plt Count 34 L Lymph % (Auto) Lymph # (Auto) Seg Neutrophils % Seg Neuts % (Manual) Lymphocytes % (Manual) Monocytes % (Manual) Nucleated RBC % Seg Neutrophils # Seg Neutrophils # Man Lymphocytes # (Manual) Percent Retic PT INR Fibrinogen ABG pH POC ABG pO2 ABG pO2 62.5 L ABG HCO3 26.6 H ABG O2 Saturation 91.7 L ABG Base Excess ABG Hemoglobin 8.4 L VBG pO2 Oxyhemoglobin 89.9 L Sodium Potassium Chloride Carbon Dioxide BUN Creatinine Glucose POC Glucose 156 H Lactic Acid Calcium Phosphorus Magnesium Iron TIBC Ferritin Alkaline Phosphatase Lactate Dehydrogenase Troponin T C-Reactive Protein Albumin LDL Cholesterol Direct 12/18/21 12/19/21 12/19/21 23:54 05:00 05:00 WBC 18.9 H RBC 3.29 L Hgb 8.4 L Hct 26.0 L MCH 26 L RDW 18.2 H Plt Count 34 L Lymph % (Auto) Lymph # (Auto) Seg Neutrophils % Seg Neuts % (Manual) 93.0 H Lymphocytes % (Manual) 2.0 L Monocytes % (Manual) Nucleated RBC % Seg Neutrophils # Seg Neutrophils # Man 17.6 H Lymphocytes # (Manual) 0.4 L Percent Retic PT INR Fibrinogen ABG pH POC ABG pO2 ABG pO2 ABG HCO3 ABG O2 Saturation ABG Base Excess ABG Hemoglobin VBG pO2 Oxyhemoglobin Sodium Potassium Chloride Carbon Dioxide BUN 30 H Creatinine 3.1 H Glucose 155 H POC Glucose 122 H Lactic Acid Calcium 8.2 L Phosphorus Magnesium Iron TIBC Ferritin Alkaline Phosphatase Lactate Dehydrogenase Troponin T C-Reactive Protein Albumin LDL Cholesterol Direct 12/19/21 12/19/21 12/19/21 05:29 11:41 17:48 WBC RBC Hgb Hct MCH RDW Plt Count Lymph % (Auto) Lymph # (Auto) Seg Neutrophils % Seg Neuts % (Manual) Lymphocytes % (Manual) Monocytes % (Manual) Nucleated RBC % Seg Neutrophils # Seg Neutrophils # Man Lymphocytes # (Manual) Percent Retic PT INR Fibrinogen ABG pH POC ABG pO2 ABG pO2 ABG HCO3 ABG O2 Saturation ABG Base Excess ABG Hemoglobin VBG pO2 Oxyhemoglobin Sodium Potassium Chloride Carbon Dioxide BUN Creatinine Glucose POC Glucose 153 H 164 H 113 H Lactic Acid Calcium Phosphorus Magnesium Iron TIBC Ferritin Alkaline Phosphatase Lactate Dehydrogenase Troponin T C-Reactive Protein Albumin LDL Cholesterol Direct 12/19/21 12/20/21 12/20/21 23:53 04:45 04:45 WBC 15.0 H RBC 3.39 L Hgb 8.4 L Hct 26.8 L MCH 25 L RDW 17.8 H Plt Count 36 L Lymph % (Auto) Lymph # (Auto) Seg Neutrophils % Seg Neuts % (Manual) Lymphocytes % (Manual) Monocytes % (Manual) Nucleated RBC % Seg Neutrophils # Seg Neutrophils # Man Lymphocytes # (Manual) Percent Retic PT INR Fibrinogen ABG pH POC ABG pO2 ABG pO2 ABG HCO3 ABG O2 Saturation ABG Base Excess ABG Hemoglobin VBG pO2 Oxyhemoglobin Sodium 135 L Potassium Chloride 96.1 L Carbon Dioxide BUN 48 H Creatinine 3.9 H Glucose 188 H POC Glucose 157 H Lactic Acid Calcium 8.1 L Phosphorus Magnesium Iron TIBC Ferritin Alkaline Phosphatase Lactate Dehydrogenase Troponin T C-Reactive Protein Albumin LDL Cholesterol Direct 12/20/21 12/20/21 12/20/21 05:07 11:13 16:35 WBC RBC Hgb Hct MCH RDW Plt Count Lymph % (Auto) Lymph # (Auto) Seg Neutrophils % Seg Neuts % (Manual) Lymphocytes % (Manual) Monocytes % (Manual) Nucleated RBC % Seg Neutrophils # Seg Neutrophils # Man Lymphocytes # (Manual) Percent Retic PT INR Fibrinogen ABG pH POC ABG pO2 ABG pO2 ABG HCO3 ABG O2 Saturation ABG Base Excess ABG Hemoglobin VBG pO2 Oxyhemoglobin Sodium Potassium Chloride Carbon Dioxide BUN Creatinine Glucose POC Glucose 169 H 198 H 198 H Lactic Acid Calcium Phosphorus Magnesium Iron TIBC Ferritin Alkaline Phosphatase Lactate Dehydrogenase Troponin T C-Reactive Protein Albumin LDL Cholesterol Direct 05/07/22 05/08/22 05/08/22 23:50 05:58 08:00 WBC 16.7 H RBC Hgb 9.3 L Hct 29.2 L MCH 25 L RDW 18.5 H Plt Count 62 L Lymph % (Auto) Lymph # (Auto) Seg Neutrophils % Seg Neuts % (Manual) Lymphocytes % (Manual) Monocytes % (Manual) Nucleated RBC % Seg Neutrophils # Seg Neutrophils # Man Lymphocytes # (Manual) Percent Retic PT INR Fibrinogen ABG pH POC ABG pO2 ABG pO2 ABG HCO3 ABG O2 Saturation ABG Base Excess ABG Hemoglobin VBG pO2 Oxyhemoglobin Sodium Potassium Chloride Carbon Dioxide BUN Creatinine Glucose POC Glucose 176 H 185 H Lactic Acid Calcium Phosphorus Magnesium Iron TIBC Ferritin Alkaline Phosphatase Lactate Dehydrogenase Troponin T C-Reactive Protein Albumin LDL Cholesterol Direct 12/21/21 12/21/21 12/21/21 08:35 08:35 10:20 WBC RBC Hgb Hct MCH RDW Plt Count Lymph % (Auto) Lymph # (Auto) Seg Neutrophils % Seg Neuts % (Manual) Lymphocytes % (Manual) Monocytes % (Manual) Nucleated RBC % Seg Neutrophils # Seg Neutrophils # Man Lymphocytes # (Manual) Percent Retic PT 16.4 H INR 1.18 H Fibrinogen ABG pH POC ABG pO2 126.1 H ABG pO2 ABG HCO3 ABG O2 Saturation ABG Base Excess ABG Hemoglobin 11.1 L VBG pO2 Oxyhemoglobin Sodium Potassium 3.5 L Chloride Carbon Dioxide BUN 36 H Creatinine 2.7 H Glucose 174 H POC Glucose Lactic Acid Calcium 8.3 L Phosphorus Magnesium Iron TIBC Ferritin Alkaline Phosphatase Lactate Dehydrogenase 249 H Troponin T C-Reactive Protein Albumin LDL Cholesterol Direct 12/21/21 12/21/21 12/21/21 11:18 17:14 18:00 WBC 20.2 H RBC Hgb 9.9 L Hct MCH 25 L RDW 18.0 H Plt Count 60 L Lymph % (Auto) Lymph # (Auto) Seg Neutrophils % Seg Neuts % (Manual) Lymphocytes % (Manual) Monocytes % (Manual) Nucleated RBC % Seg Neutrophils # Seg Neutrophils # Man Lymphocytes # (Manual) Percent Retic PT INR Fibrinogen ABG pH POC ABG pO2 ABG pO2 ABG HCO3 ABG O2 Saturation ABG Base Excess ABG Hemoglobin VBG pO2 Oxyhemoglobin Sodium Potassium Chloride Carbon Dioxide BUN Creatinine Glucose POC Glucose 181 H 222 H Lactic Acid Calcium Phosphorus Magnesium Iron TIBC Ferritin Alkaline Phosphatase Lactate Dehydrogenase Troponin T C-Reactive Protein Albumin LDL Cholesterol Direct 12/21/21 12/21/21 12/22/21 19:26 23:28 04:14 WBC 23.9 H RBC Hgb Hct MCH 25 L RDW 17.8 H Plt Count 68 L Lymph % (Auto) Lymph # (Auto) Seg Neutrophils % Seg Neuts % (Manual) Lymphocytes % (Manual) Monocytes % (Manual) Nucleated RBC % Seg Neutrophils # Seg Neutrophils # Man Lymphocytes # (Manual) Percent Retic PT INR Fibrinogen ABG pH POC ABG pO2 ABG pO2 ABG HCO3 ABG O2 Saturation ABG Base Excess ABG Hemoglobin VBG pO2 Oxyhemoglobin Sodium Potassium Chloride Carbon Dioxide BUN Creatinine Glucose POC Glucose 214 H 260 H Lactic Acid Calcium Phosphorus Magnesium Iron TIBC Ferritin Alkaline Phosphatase Lactate Dehydrogenase Troponin T C-Reactive Protein Albumin LDL Cholesterol Direct 12/22/21 12/22/21 12/22/21 04:14 05:28 11:12 WBC RBC Hgb Hct MCH RDW Plt Count Lymph % (Auto) Lymph # (Auto) Seg Neutrophils % Seg Neuts % (Manual) Lymphocytes % (Manual) Monocytes % (Manual) Nucleated RBC % Seg Neutrophils # Seg Neutrophils # Man Lymphocytes # (Manual) Percent Retic PT INR Fibrinogen ABG pH POC ABG pO2 ABG pO2 ABG HCO3 ABG O2 Saturation ABG Base Excess ABG Hemoglobin VBG pO2 Oxyhemoglobin Sodium 136 L Potassium 3.0 L Chloride Carbon Dioxide BUN 52 H Creatinine 3.5 H Glucose 202 H POC Glucose 223 H 191 H Lactic Acid Calcium 8.1 L Phosphorus Magnesium Iron TIBC Ferritin Alkaline Phosphatase Lactate Dehydrogenase Troponin T C-Reactive Protein Albumin LDL Cholesterol Direct 12/22/21 12/22/21 12/23/21 14:05 17:57 04:39 WBC 21.1 H RBC Hgb 10.0 L Hct MCH 26 L RDW 17.6 H Plt Count 79 L Lymph % (Auto) Lymph # (Auto) Seg Neutrophils % Seg Neuts % (Manual) Lymphocytes % (Manual) Monocytes % (Manual) Nucleated RBC % Seg Neutrophils # Seg Neutrophils # Man Lymphocytes # (Manual) Percent Retic PT 17.7 H INR 1.30 H Fibrinogen ABG pH POC ABG pO2 ABG pO2 ABG HCO3 ABG O2 Saturation ABG Base Excess ABG Hemoglobin VBG pO2 Oxyhemoglobin Sodium Potassium Chloride Carbon Dioxide BUN Creatinine Glucose POC Glucose 140 H Lactic Acid Calcium Phosphorus Magnesium Iron TIBC Ferritin Alkaline Phosphatase Lactate Dehydrogenase Troponin T C-Reactive Protein Albumin LDL Cholesterol Direct 12/23/21 12/23/21 12/23/21 04:39 05:11 11:44 WBC RBC Hgb Hct MCH RDW Plt Count Lymph % (Auto) Lymph # (Auto) Seg Neutrophils % Seg Neuts % (Manual) Lymphocytes % (Manual) Monocytes % (Manual) Nucleated RBC % Seg Neutrophils # Seg Neutrophils # Man Lymphocytes # (Manual) Percent Retic PT INR Fibrinogen ABG pH POC ABG pO2 ABG pO2 ABG HCO3 ABG O2 Saturation ABG Base Excess ABG Hemoglobin VBG pO2 Oxyhemoglobin Sodium 136 L Potassium Chloride Carbon Dioxide 19 L BUN 61 H Creatinine 4.5 H Glucose 113 H POC Glucose 109 H 132 H Lactic Acid Calcium 7.9 L Phosphorus 4.90 H Magnesium Iron TIBC Ferritin Alkaline Phosphatase Lactate Dehydrogenase Troponin T C-Reactive Protein Albumin LDL Cholesterol Direct 12/23/21 12/23/21 12/23/21 14:05 16:59 21:44 WBC RBC Hgb 9.3 L Hct 28.7 L MCH RDW Plt Count Lymph % (Auto) Lymph # (Auto) Seg Neutrophils % Seg Neuts % (Manual) Lymphocytes % (Manual) Monocytes % (Manual) Nucleated RBC % Seg Neutrophils # Seg Neutrophils # Man Lymphocytes # (Manual) Percent Retic PT INR Fibrinogen ABG pH POC ABG pO2 ABG pO2 ABG HCO3 ABG O2 Saturation ABG Base Excess ABG Hemoglobin VBG pO2 Oxyhemoglobin Sodium Potassium Chloride Carbon Dioxide BUN Creatinine Glucose POC Glucose 180 H 141 H Lactic Acid Calcium Phosphorus Magnesium Iron TIBC Ferritin Alkaline Phosphatase Lactate Dehydrogenase Troponin T C-Reactive Protein Albumin LDL Cholesterol Direct 12/23/21 12/24/21 12/24/21 23:30 03:45 06:00 WBC 16.8 H RBC 2.96 L Hgb 7.5 L Hct 23.3 L MCH 26 L RDW 17.8 H Plt Count 89 L Lymph % (Auto) Lymph # (Auto) Seg Neutrophils % Seg Neuts % (Manual) Lymphocytes % (Manual) Monocytes % (Manual) Nucleated RBC % Seg Neutrophils # Seg Neutrophils # Man Lymphocytes # (Manual) Percent Retic PT INR Fibrinogen ABG pH POC ABG pO2 ABG pO2 ABG HCO3 ABG O2 Saturation ABG Base Excess ABG Hemoglobin VBG pO2 Oxyhemoglobin Sodium Potassium Chloride Carbon Dioxide BUN Creatinine Glucose POC Glucose 146 H 199 H Lactic Acid Calcium Phosphorus Magnesium Iron TIBC Ferritin Alkaline Phosphatase Lactate Dehydrogenase Troponin T C-Reactive Protein Albumin LDL Cholesterol Direct 12/24/21 06:00 WBC RBC Hgb Hct MCH RDW Plt Count Lymph % (Auto) Lymph # (Auto) Seg Neutrophils % Seg Neuts % (Manual) Lymphocytes % (Manual) Monocytes % (Manual) Nucleated RBC % Seg Neutrophils # Seg Neutrophils # Man Lymphocytes # (Manual) Percent Retic PT INR Fibrinogen ABG pH POC ABG pO2 ABG pO2 ABG HCO3 ABG O2 Saturation ABG Base Excess ABG Hemoglobin VBG pO2 Oxyhemoglobin Sodium Potassium 3.3 L Chloride 97.3 L Carbon Dioxide BUN 31 H Creatinine 2.8 H Glucose 208 H POC Glucose Lactic Acid Calcium 7.6 L Phosphorus Magnesium Iron TIBC Ferritin Alkaline Phosphatase Lactate Dehydrogenase Troponin T C-Reactive Protein Albumin LDL Cholesterol Direct Allied health notes reviewed: nursing
[2021-12-24] MEDS: MIDODRINE 5 MG TAB FEEDTUBE SCH ×2 (12:40→16:40)
[2021-12-24 13:19] LABS: ABG Base Excess 2.4 mmol/L (-2.0-3.0); ABG HCO3 26.6 mmol/L (20.0-26.0); ABG Methemoglobin 0.5 % (0.0-1.5); ABG Oxygen Saturation 98.1 % (95.0-99.0); ABG PCO2 39.1 mm Hg; ABG PH 7.45 pH Units (7.350-7.450); ABG PO2 109.1 mm Hg (80.0-90.0)
--- NOTE | 2021-12-24 13:38 | Hem/Onc Progress Note ---
Subjective Date of service: 12/24/21 Interval history: Heme progress note Televisit via [facility] CPT 68164 Dx Thrombocytopenia 66yo female s/p fall which occurred 2 days prior to arrival. 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 found to have elevated troponin, elevated BUN/creatinine at 9.2/76, CXR showed pulmonary edema CT head/C-spine/pelvis showed no acute fracture or dislocation and x-ray L- spine/right tib-fib/fib/right femur/right hip and pelvis showed no acute fracture or dislocation. Patient decompensated 12/15, requiring intubation. Sepsis secondary to beta- hemolytic strep group B. Platelets noted decreasing. Hematology following for thrombocytopenia. Patient intubated, awake and alert. S/p colonoscopy which showed bleeding from colitis. No bleeding noted or reported today; S/p FFP transfusions. 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 , improving Microcytic anemia, due to acute illness, and renal insufficiency, iron deficiency with iron sat 13% --S/p IV iron Coagulopathy, likely related to underlying sepsis, liver dysfunction Now with active GI bleed, colitis PLAN: Monitor CBC Transfuse 1 unit RBC whenever hct <23 Follow hemoglobin electrophoresis Laboratory Last Values WBC 16.8 K/mm3 (4.5-11.0) H 12/24/21 06:00 RBC 2.96 M/mm3 (3.65-5.03) L 12/24/21 06:00 Hgb 7.5 gm/dl (10.1-14.3) L 12/24/21 06:00 Hct 23.3 % (30.3-42.9) L 12/24/21 06:00 MCV 79 fl (79-97) 12/24/21 06:00 MCH 26 pg (28-32) L 12/24/21 06:00 MCHC 32 % (30-34) 12/24/21 06:00 RDW 17.8 % (13.2-15.2) H 12/24/21 06:00 Plt Count 89 K/mm3 (140-440) L 12/24/21 06:00 Lymph % (Auto) 5.9 % (13.4-35.0) L 12/17/21 04:00 Johnston % (Auto) 4.6 % (0.0-7.3) 12/17/21 04:00 Eos % (Auto) 0.4 % (0.0-4.3) 12/17/21 04:00 Baso % (Auto) 0.8 % (0.0-1.8) 12/17/21 04:00 Lymph # (Auto) 0.7 K/mm3 (1.2-5.4) L 12/17/21 04:00 Johnston # (Auto) 0.6 K/mm3 (0.0-0.8) 12/17/21 04:00 Eos # (Auto) 0.0 K/mm3 (0.0-0.4) 12/17/21 04:00 Baso # (Auto) 0.1 K/mm3 (0.0-0.1) 12/17/21 04:00 Add Manual Diff Complete 12/18/21 05:00 Total Counted 100 12/19/21 05:00 Seg Neutrophils % Nail Technician Teacher 12/19/21 05:00 Seg Neuts % (Manual) 93.0 % (40.0-70.0) H 12/19/21 05:00 Band Neutrophils % 2.0 % 12/19/21 05:00 Lymphocytes % (Manual) 2.0 % (13.4-35.0) L 12/19/21 05:00 Reactive Lymphs % (Man) 0 % 12/19/21 05:00 Monocytes % (Manual) 1.0 % (0.0-7.3) 12/19/21 05:00 Eosinophils % (Manual) 0 % (0.0-4.3) 12/19/21 05:00 Basophils % (Manual) 0 % (0.0-1.8) 12/19/21 05:00 Metamyelocytes % 2.0 % 12/19/21 05:00 Myelocytes % 0 % 12/19/21 05:00 Promyelocytes % 0 % 12/19/21 05:00 Blast Cells % 0 % 12/19/21 05:00 Nucleated RBC % Not Reportable 12/19/21 05:00 Seg Neutrophils # 10.9 K/mm3 (1.8-7.7) H 12/17/21 04:00 Seg Neutrophils # Man 17.6 K/mm3 (1.8-7.7) H 12/19/21 05:00 Band Neutrophils # 0.4 K/mm3 12/19/21 05:00 Lymphocytes # (Manual) 0.4 K/mm3 (1.2-5.4) L 12/19/21 05:00 Abs React Lymphs (Man) 0.0 K/mm3 12/19/21 05:00 Monocytes # (Manual) 0.2 K/mm3 (0.0-0.8) 12/19/21 05:00 Eosinophils # (Manual) 0.0 K/mm3 (0.0-0.4) 12/19/21 05:00 Basophils # (Manual) 0.0 K/mm3 (0.0-0.1) 12/19/21 05:00 Metamyelocytes # 0.4 K/mm3 12/19/21 05:00 Myelocytes # 0.0 K/mm3 12/19/21 05:00 Promyelocytes # 0.0 K/mm3 12/19/21 05:00 Blast Cells # 0.0 K/mm3 12/19/21 05:00 WBC Morphology Not Reportable 12/19/21 05:00 Hypersegmented Neuts Not Reportable 12/19/21 05:00 Hyposegmented Neuts 1+ 12/19/21 05:00 Hypogranular Neuts Not Reportable 12/19/21 05:00 Smudge Cells Not Reportable 12/19/21 05:00 Toxic Granulation Not Reportable 12/19/21 05:00 Toxic Vacuolation Not Reportable 12/19/21 05:00 Dohle Bodies Not Reportable 12/19/21 05:00 Pelger-Huet Anomaly Not Reportable 12/19/21 05:00 Charles Rods Not Reportable 12/19/21 05:00 Platelet Estimate Consistent w auto 12/19/21 05:00 Clumped Platelets Not Reportable 12/19/21 05:00 Plt Clumps, EDTA Not Reportable 12/19/21 05:00 Large Platelets Not Reportable 12/19/21 05:00 Giant Platelets Not Reportable 12/19/21 05:00 Platelet Satelliting Not Reportable 12/19/21 05:00 Plt Morphology Comment Not Reportable 12/19/21 05:00 RBC Morphology Not Reportable 12/19/21 05:00 Dimorphic RBCs Not Reportable 12/19/21 05:00 Polychromasia Not Reportable 12/19/21 05:00 Hypochromasia 1+ 12/19/21 05:00 Poikilocytosis Few 12/19/21 05:00 Anisocytosis Few 12/19/21 05:00 Microcytosis Not Reportable 12/19/21 05:00 Macrocytosis Not Reportable 12/19/21 05:00 Spherocytes Not Reportable 12/19/21 05:00 Pappenheimer Bodies Not Reportable 12/19/21 05:00 Sickle Cells Not Reportable 12/19/21 05:00 Target Cells Rare 12/19/21 05:00 Tear Drop Cells Not Reportable 12/19/21 05:00 Ovalocytes Rare 12/19/21 05:00 Helmet Cells Not Reportable 12/19/21 05:00 Murphy-Mulat Bodies Not Reportable 12/19/21 05:00 [place] Rings Not Reportable 12/19/21 05:00 [place] Cells Not Reportable 12/19/21 05:00 Bite Cells Not Reportable 12/19/21 05:00 Crenated Cell Not Reportable 12/19/21 05:00 Elliptocytes Not Reportable 12/19/21 05:00 Acanthocytes (Spur) Not Reportable 12/19/21 05:00 Rouleaux Rare 12/19/21 05:00 Hemoglobin C Crystals Not Reportable 12/19/21 05:00 Schistocytes Rare 12/19/21 05:00 Malaria parasites Not Reportable 12/19/21 05:00 Percent Retic 0.37 % (0.78-2.58) L 12/18/21 05:00 Bryson Bodies Not Reportable 12/19/21 05:00 Haptoglobin 193 mg/dL (43-212) 12/18/21 05:00 Hem Pathologist Commnt Not Reportable 12/19/21 05:00 PT 17.7 Sec. (12.2-14.9) H 12/22/21 14:05 INR 1.30 (0.87-1.13) H 12/22/21 14:05 Fibrinogen 351 mg/dl (211-480) 12/21/21 08:35 Heparin Anti-Xa, Unfract Negative (Negative) 12/17/21 09:30 ABG pH 7.450 pH Units (7.350-7.450) 12/24/21 Unknown POC ABG pCO2 36.0 mmHg (32.0-48.0) 12/21/21 10:20 ABG pCO2 39.1 mm Hg 12/24/21 Unknown POC ABG pO2 126.1 mmHg (83-108) H 12/21/21 10:20 ABG pO2 109.1 mm Hg (80.0-90.0) H 12/24/21 Unknown POC ABG HCO3 24.3 12/21/21 10:20 ABG HCO3 26.6 mmol/L (20.0-26.0) H 12/24/21 Unknown ABG O2 Saturation 98.1 % (95.0-99.0) 12/24/21 Unknown ABG O2 Content 9.4 (0.0-44) 12/24/21 Unknown POC ABG Base Excess 0.6 12/21/21 10:20 ABG Base Excess 2.4 mmol/L (-2.0-3.0) 12/24/21 Unknown ABG Hemoglobin 6.8 gm/dl (12.0-16.0) L 12/24/21 Unknown ABG Oxyhemoglobin 97.4 (94-98) 12/21/21 10:20 ABG Carboxyhemoglobin 1.8 % (0.0-5.0) 12/24/21 Unknown ABG Methemoglobin 0.5 % (0.0-1.5) 12/24/21 Unknown ABG Sodium Not Reportable 12/21/21 10:20 ABG Potassium Not Reportable 12/21/21 10:20 ABG Chloride Not Reportable 12/21/21 10:20 ABG Glucose Not Reportable 12/21/21 10:20 VBG pO2 > 258.0 (25.0-47.0) H 12/15/21 19:50 Oxyhemoglobin 95.8 % (95.0-99.0) 12/24/21 Unknown Carboxyhemoglobin 0.9 (0.5-1.5) 12/21/21 10:20 FiO2 30 % 12/24/21 Unknown FiO2 % 30.0 12/21/21 10:20 Sodium 137 mmol/L (137-145) 12/24/21 06:00 Potassium 3.3 mmol/L (3.6-5.0) L 12/24/21 06:00 Chloride 97.3 mmol/L (98-107) L 12/24/21 06:00 Carbon Dioxide 25 mmol/L (22-30) 12/24/21 06:00 Anion Gap 18 mmol/L 12/24/21 06:00 BUN 31 mg/dL (7-17) H 12/24/21 06:00 Creatinine 2.8 mg/dL (0.6-1.2) H 12/24/21 06:00 Estimated GFR 21 ml/min 12/24/21 06:00 BUN/Creatinine Ratio 11 % 12/24/21 06:00 Glucose 208 mg/dL (65-100) H 12/24/21 06:00 POC Glucose 181 mg/dL (70-105) H 12/24/21 12:37 Lactic Acid 1.90 mmol/L (0.7-2.0) 12/16/21 05:00 Calcium 7.6 mg/dL (8.4-10.2) L 12/24/21 06:00 Phosphorus 4.90 mg/dL (2.5-4.5) H 12/23/21 04:39 Magnesium 1.90 mg/dL (1.7-2.3) 12/23/21 04:39 Iron 13 ug/dL (37-170) L 12/18/21 05:00 TIBC 109 mcg/dL (250-450) L 12/18/21 05:00 Ferritin 383.4 ng/mL (10.0-200.0) H 12/18/21 05:00 Total Bilirubin 0.60 mg/dL (0.1-1.2) 12/11/21 15:40 AST 22 units/L (5-40) 12/11/21 15:40 ALT 13 units/L (7-56) 12/11/21 15:40 Alkaline Phosphatase 237 units/L (35-129) H 12/11/21 15:40 Lactate Dehydrogenase 249 units/L (91-180) H 12/21/21 08:35 Troponin T 0.175 ng/mL (0.00-0.029) H* 12/12/21 04:43 C-Reactive Protein 38.50 mg/dL (0.00-1.30) H 12/15/21 14:40 Total Protein 7.4 g/dL (6.3-8.2) 12/11/21 15:40 Albumin 3.6 g/dL (3.9-5) L 12/11/21 15:40 Albumin/Globulin Ratio 0.9 % 12/11/21 15:40 Triglycerides 92 mg/dL (2-149) 12/11/21 15:40 Cholesterol 72 mg/dL (50-199) 12/11/21 15:40 LDL Cholesterol Direct 16 mg/dL (50-130) L 12/11/21 15:40 HDL Cholesterol 41 mg/dL (40-59) 12/11/21 15:40 Cholesterol/HDL Ratio 1.75 % 12/11/21 15:40 Serotonin Release Assay See scanned result 12/17/21 09:30 Procalcitonin 46.16 ng/mL (<0.15) 12/15/21 04:11 Arterial Blood Glucose Not Reportable 12/21/21 10:20 Random Vancomycin 15.6 ug/mL (0-40.0) 12/16/21 05:00 Heparin-induced Plt Ab Negative (Negative) 12/17/21 09:30 UF Heparin High Dose 1 % Release 12/17/21 09:30 JAMILAH UFH Low Dose 0.1 0 % Release 12/17/21 09:30 JAMILAH UFH Low Dose 0.5 0 % Release 12/17/21 09:30 Blood Type O POSITIVE 12/23/21 16:20 Antibody Screen Negative 12/23/21 16:20 Objective - Constitutional Vitals: Last Vital Signs Temp 98.6 F 12/24/21 12:00 Pulse 93 H 12/24/21 13:00 Resp 14 12/24/21 13:00 BP 153/67 12/24/21 13:00 Pulse Ox 89 12/24/21 13:00 - Labs Lab Results: Laboratory Results - last 24 hr 12/17/21 12/23/21 12/23/21 09:30 11:44 14:05 WBC RBC Hgb 9.3 L Hct 28.7 L MCV MCH MCHC RDW Plt Count ABG pH ABG pCO2 ABG pO2 ABG HCO3 ABG O2 Saturation ABG O2 Content ABG Base Excess ABG Hemoglobin ABG Carboxyhemoglobin ABG Methemoglobin Oxyhemoglobin FiO2 Sodium Potassium Chloride Carbon Dioxide Anion Gap BUN Creatinine Estimated GFR BUN/Creatinine Ratio Glucose POC Glucose 132 H Calcium Serotonin Release Assay See scanned result Blood Type Antibody Screen 12/23/21 12/23/21 12/23/21 16:20 16:59 21:44 WBC RBC Hgb Hct MCV MCH MCHC RDW Plt Count ABG pH ABG pCO2 ABG pO2 ABG HCO3 ABG O2 Saturation ABG O2 Content ABG Base Excess ABG Hemoglobin ABG Carboxyhemoglobin ABG Methemoglobin Oxyhemoglobin FiO2 Sodium Potassium Chloride Carbon Dioxide Anion Gap BUN Creatinine Estimated GFR BUN/Creatinine Ratio Glucose POC Glucose 180 H 141 H Calcium Serotonin Release Assay Blood Type O POSITIVE Antibody Screen Negative 12/23/21 12/24/21 12/24/21 23:30 03:45 06:00 WBC 16.8 H RBC 2.96 L Hgb 7.5 L Hct 23.3 L MCV 79 MCH 26 L MCHC 32 RDW 17.8 H Plt Count 89 L ABG pH ABG pCO2 ABG pO2 ABG HCO3 ABG O2 Saturation ABG O2 Content ABG Base Excess ABG Hemoglobin ABG Carboxyhemoglobin ABG Methemoglobin Oxyhemoglobin FiO2 Sodium Potassium Chloride Carbon Dioxide Anion Gap BUN Creatinine Estimated GFR BUN/Creatinine Ratio Glucose POC Glucose 146 H 199 H Calcium Serotonin Release Assay Blood Type Antibody Screen 12/24/21 12/24/21 12/24/21 06:00 12:37 Unknown WBC RBC Hgb Hct MCV MCH MCHC RDW Plt Count ABG pH 7.450 ABG pCO2 39.1 ABG pO2 109.1 H ABG HCO3 26.6 H ABG O2 Saturation 98.1 ABG O2 Content 9.4 ABG Base Excess 2.4 ABG Hemoglobin 6.8 L ABG Carboxyhemoglobin 1.8 ABG Methemoglobin 0.5 Oxyhemoglobin 95.8 FiO2 30 Sodium 137 Potassium 3.3 L Chloride 97.3 L Carbon Dioxide 25 Anion Gap 18 BUN 31 H Creatinine 2.8 H Estimated GFR 21 BUN/Creatinine Ratio 11 Glucose 208 H POC Glucose 181 H Calcium 7.6 L Serotonin Release Assay Blood Type Antibody Screen Medications & Allergies - Medications Allergies/Adverse Reactions: Allergies No Known Allergies Allergy (Verified 12/11/21 22:19) Home Medications: Home Medications Medication Instructions Recorded Confirmed Last Taken Type Albuterol Sulfate [Proair 2 puff IH Q6HR PRN 11/23/21 12/14/21 Unknown History Digihaler] Calcium Acetate 2 tab PO TID 11/23/21 12/14/21 Unknown History Fluticasone/Umeclidin/Vilanter 1 each IH DAILY 11/23/21 12/14/21 Unknown History [Trelegy Ellipta 100-62.5-25] Furosemide [Lasix TAB] 40 mg PO QDAY 11/23/21 12/14/21 Unknown History Insulin Aspart (Nf) [NovoLOG 55 unit SQ TID 11/23/21 12/14/21 Unknown History Flexpen] Insulin Glargine [Lantus VIAL] 25 units SQ QHS 11/23/21 12/14/21 Unknown History Omeprazole 20 mg PO DAILY 11/23/21 12/14/21 Unknown History Spironolactone [Aldactone] 100 mg PO QDAY 11/23/21 12/14/21 Unknown History lisinopriL [Lisinopril] 20 mg PO BID 11/23/21 12/14/21 12/06/21 History 500 MG Docusate Sodium [Colace CAP] 100 mg PO BID PRN #60 capsule 11/24/21 12/14/21 Unknown Rx Aspirin EC [Halfprin EC] 81 mg PO DAILY 90 Days #90 tablet 11/26/21 12/14/21 Unknown Rx Aspirin [Adult Aspirin] 81 mg PO DAILY 90 Days #90 tab 11/26/21 12/14/21 Unknown Rx ISOSORBIDE MONOnitrate [Imdur ER] 60 mg PO QDAY 90 Days #90 tab 11/26/21 12/14/21 Unknown Rx Sevelamer Carbonate [Renvela] 800 mg PO TIDWM 90 Days #270 tab 11/26/21 12/14/21 Unknown Rx amLODIPine 10 mg PO DAILY 90 Days #90 tab 11/26/21 12/14/21 Unknown Rx carvediloL [Coreg] 25 mg PO BID 90 Days #180 tab 11/26/21 12/14/21 Unknown Rx Atorvastatin Calcium [Lipitor] 80 mg PO QHS 90 Days #90 tab 11/27/21 12/14/21 Unknown Rx levETIRAcetam [Keppra TAB] 500 mg PO 3XW 12/14/21 12/14/21 12/06/21 History 500 MG Active Medications: Generic Name Dose Route Start Last Admin Trade Name Freq PRN Reason Stop Dose Admin Acetaminophen 650 mg 12/13/21 23:00 12/13/21 23:18 Acetaminophen 650 Mg Rect Supp NC 650 mg Q4H PRN Administration Pain, Mild (1-3) Albuterol 2.5 mg 12/11/21 22:14 Albuterol 2.5 Mg/3 Ml Nebu IH Q6HR PRN Wheezing Albuterol/Ipratropium 1 ampul 12/14/21 08:00 12/24/21 08:03 Ipratropium/Albuterol Sulfate 3 Ml Ampul.Neb IH 1 ampul TIDRT KRISTA Administration Lipase/Protease/Amylase 1 each 12/16/21 11:15 Lipase 10,500/Protease 25,000/Amylase 43,750 (Units) Dr Blanco FEEDTUBE PRN PRN For Clogged Feeding Tube Atorvastatin Calcium 80 mg 12/15/21 22:00 12/23/21 21:12 Atorvastatin 40 Mg Tab FEEDTUBE Not Given QHS KRISTA Budesonide 0.5 mg 12/13/21 08:00 12/24/21 08:03 Budesonide 0.5 Mg/2 Ml Nebu IH 0.5 mg Q12HRT KRISTA Administration Dextrose 50 ml 12/11/21 22:23 12/16/21 06:24 Dextrose 50% In Water (25gm) 50 Ml Syringe IV 15 ml Q30MIN PRN Administration Hypoglycemia Protocol Hydrophilic Ointment 1 applic 12/16/21 14:30 Lip Therapy Vaseline TP Q2HR PRN Dry Lips Sodium Chloride 100 mls @ 999 mls/hr 12/12/21 12:00 Nacl 0.9% IV ABEL PRN Hypotension Ceftriaxone Sodium 2 gm in 100 mls @ 200 mls/hr 12/16/21 15:00 12/23/21 14:33 Rocephin/Ns 2 Gm/100 Ml IV 12/29/21 15:29 200 mls/hr Q24H KRISTA Administration Protocol Insulin Human Lispro 0 unit 12/15/21 12:00 12/24/21 12:40 Insulin Lispro 100 Unit/Ml SUB-Q 3 unit Q6HR KRISTA Administration Protocol Levetiracetam 500 mg 12/16/21 18:00 12/23/21 17:32 Levetiracetam 500 Mg/5 Ml Oral Liqd FEEDTUBE 500 mg TuThSa KRISTA Administration Midodrine 5 mg 12/24/21 12:00 12/24/21 12:40 Midodrine 5 Mg Tab FEEDTUBE Not Given TID@0800,1200,1600 KRISTA Morphine Sulfate 2 mg 12/11/21 22:11 12/24/21 03:20 Morphine 4 Mg/1 Ml Inj IV 2 mg Q5MIN PRN Administration Chest Pain unrelieved by NTG Multi-Ingred Cream/Lotion/Oil/Oint 1 applic 12/16/21 14:10 Mineral Oil/Petrolatum, White Ophth Oint 3.5 Gm OU Q4HR PRN Dry Eye(s) Nitroglycerin 0.4 mg 12/11/21 22:11 Nitroglycerin 0.4 Mg Tab Subl SL Q5M PRN Chest Pain Pantoprazole Sodium 40 mg 12/22/21 22:00 12/24/21 09:24 Pantoprazole 40 Mg Inj IV 40 mg BID KRISTA Administration Polyethylene Glycol/Electrolytes 4,000 ml 12/23/21 14:48 12/23/21 17:44 Polyethylene Glycol/Elect Soln 4000 Ml NGTUBE 4,000 ml ONCE KRISTA Administration Scopolamine 1 each 12/24/21 11:53 Scopolamine Transdermal Patch 72 Hr TD 12/24/21 23:59 ONCE NR Senna/Docusate Sodium 1 tab 12/16/21 22:00 12/24/21 09:21 Sennosides/Docusate Sodium 8.6/50 Mg Tab FEEDTUBE Not Given BID KRISTA Simple Syrup 15 ml 12/16/21 11:15 Simple Syrup 15 Ml FEEDTUBE PRN PRN Hypoglycemia Simple Syrup 30 ml 12/16/21 11:15 Simple Syrup 15 Ml FEEDTUBE PRN PRN Hypoglycemia Sodium Bicarbonate 325 mg 12/16/21 11:15 Sodium Bicarbonate 325 Mg Tab FEEDTUBE PRN PRN For Clogged Feeding Tube Sodium Chloride 10 ml 12/11/21 22:11 12/24/21 09:24 Sodium Chloride 0.9% 10 Ml Flush Syringe IV 10 ml PRN PRN Administration LINE FLUSH
[2021-12-24] MEDS ORDERED: ACETAMINOPHEN 325 MG/10.15 ML ORAL LIQD UNIT DOSE ONE (14:02)
[2021-12-24] MEDS: cefTRIAXone/NS 2 GM/100 ML 2 GM/100 ML BAG IV SCH (14:07)
--- NOTE | 2021-12-24 14:14 | Progress Note ---
Assessment and Plan - Patient Problems (1) Syncope Current Visit: Yes Status: Acute Plan to address problem: Patient with end-stage renal disease on hemodialysis, admitted with transient dizziness and sepsis, suspected source indwelling Vas-Cath. History of a moderate severity cardiomyopathy, ejection fraction 35 to 40%. Follow-up 2D echocardiogram on this presentation showed no evidence of valvular vegetation. The etiology of her cardiomyopathy is not known at this time, we do not have her records from [place] for review. I have discontinued aspirin due to persistent rectal bleed. Conservative cardiac management. Subjective Date of service: 12/24/21 Principal diagnosis: Septic shock ; Bacteremia; ESRD on dialysis; AMS; NSTEMI; HTN; DM II Interval history: Patient is sedated, on the vent. Undergoing work-up for progressive thrombocytopenia, sepsis, and rectal bleeding. Objective Vital Signs Temp Pulse Pulse Pulse Pulse Resp Resp 12/24/21 13:00 93 H 14 12/24/21 12:00 98.6 F 75 17 12/24/21 11:30 77 16 12/24/21 11:00 76 12 12/24/21 10:00 79 10 L 12/24/21 09:05 76 12 12/24/21 09:00 79 13 12/24/21 08:30 98.5 F 72 12 12/24/21 08:00 38.1 F L 72 73 12 12 12/24/21 07:58 73 12/24/21 07:00 84 12 12/24/21 06:30 84 12/24/21 06:00 85 12 12/24/21 05:00 81 12 12/24/21 04:45 12 12/24/21 04:00 77 13 12/24/21 03:50 14 12/24/21 03:43 98.3 F 70 12 12/24/21 03:28 98.3 F 70 12 12/24/21 03:20 12 12/24/21 03:02 98.0 F 70 12 12/24/21 03:01 98.0 F 70 12 12/24/21 03:00 81 12 12/24/21 02:21 98.0 F 73 12 12/24/21 02:00 76 13 12/24/21 01:38 98.0 F 72 12 12/24/21 01:00 73 12 12/24/21 00:54 98.0 F 68 12 12/24/21 00:29 98.0 F 68 12 12/24/21 00:24 98.0 F 65 12 12/24/21 00:09 98.9 F 68 12 12/24/21 00:00 70 12 12/23/21 23:56 98.9 F 12/23/21 23:10 67 12 12/23/21 23:08 70 12 12/23/21 22:00 79 13 12/23/21 21:25 12 12/23/21 21:00 78 12 12/23/21 20:25 78 75 12 12/23/21 20:00 78 80 11 L 13 12/23/21 19:32 98.8 F 12/23/21 19:20 75 12 12/23/21 19:00 74 16 12/23/21 18:05 97.9 F 76 13 12/23/21 18:00 75 13 12/23/21 17:45 83 12/23/21 17:30 84 12/23/21 17:15 82 12/23/21 17:06 81 15 12/23/21 17:01 80 13 12/23/21 17:00 83 12/23/21 16:45 83 12/23/21 16:30 84 12/23/21 16:15 82 12/23/21 16:01 85 18 12/23/21 16:00 97.8 F 90 84 12/23/21 15:59 84 12/23/21 15:45 76 12/23/21 15:30 84 12/23/21 15:15 81 12/23/21 15:00 78 12 12/23/21 14:59 76 12/23/21 14:55 99.2 F 73 15 BP Pulse Ox Pulse Ox 12/24/21 13:00 153/67 89 12/24/21 12:00 169/73 95 12/24/21 11:30 155/63 100 12/24/21 11:00 155/63 100 12/24/21 10:00 152/68 100 12/24/21 09:05 153/62 100 12/24/21 09:00 153/62 97 12/24/21 08:30 150/64 100 12/24/21 08:00 150/64 100 12/24/21 07:58 150/64 97 12/24/21 07:00 165/71 98 12/24/21 06:30 12/24/21 06:00 181/77 100 12/24/21 05:00 166/73 100 12/24/21 04:45 100 12/24/21 04:00 171/77 100 12/24/21 03:50 12/24/21 03:43 100 12/24/21 03:28 154/68 99 12/24/21 03:20 12/24/21 03:02 175/71 100 12/24/21 03:01 175/71 100 12/24/21 03:00 175/70 96 12/24/21 02:21 168/72 100 12/24/21 02:00 155/67 100 12/24/21 01:38 100 12/24/21 01:00 160/68 100 12/24/21 00:54 168/72 100 12/24/21 00:29 159/78 100 12/24/21 00:24 159/78 100 12/24/21 00:09 154/74 100 12/24/21 00:00 150/71 94 12/23/21 23:56 12/23/21 23:10 98 12/23/21 23:08 93 12/23/21 22:00 145/73 100 12/23/21 21:25 100 12/23/21 21:00 153/75 97 12/23/21 20:25 100 12/23/21 20:00 120/68 98 12/23/21 19:32 12/23/21 19:20 100 12/23/21 19:00 132/66 100 12/23/21 18:05 120/59 100 12/23/21 18:00 111/54 100 12/23/21 17:45 96/54 12/23/21 17:30 103/56 12/23/21 17:15 96/57 12/23/21 17:06 91/56 100 12/23/21 17:01 47/24 100 12/23/21 17:00 91/56 12/23/21 16:45 86/34 12/23/21 16:30 92/38 12/23/21 16:15 83/41 12/23/21 16:01 /35 100 12/23/21 16:00 /35 100 12/23/21 15:59 05/10/22 15:45 99/41 12/23/21 15:30 108/47 12/23/21 15:15 101/55 12/23/21 15:00 100 12/23/21 14:59 /62 100 12/23/21 14:55 94/56 97 - Physical Examination General: Other (Sedated, on the vent) HEENT: Positive: PERRL Neck: Positive: neck supple Cardiac: Positive: Reg Rate and Rhythm Lungs: Positive: Decreased Breath Sounds Neuro: Positive: Other (Sedated, on the vent) Abdomen: Positive: Soft Skin: Positive: Clear Extremities: Absent: edema - Labs and Meds CBC 12/23/21 12/24/21 Range/Units 14:05 06:00 WBC 16.8 H (4.5-11.0) K/mm3 RBC 2.96 L (3.65-5.03) M/mm3 Hgb 9.3 L 7.5 L (10.1-14.3) gm/dl Hct 28.7 L 23.3 L (30.3-42.9) % Plt Count 89 L (140-440) K/mm3 Comprehensive Metabolic Panel 12/24/21 Range/Units 06:00 Sodium 137 (137-145) mmol/L Potassium 3.3 L (3.6-5.0) mmol/L Chloride 97.3 L (98-107) mmol/L Carbon Dioxide 25 (22-30) mmol/L BUN 31 H (7-17) mg/dL Creatinine 2.8 H (0.6-1.2) mg/dL Glucose 208 H (65-100) mg/dL Calcium 7.6 L (8.4-10.2) mg/dL - Allied health notes Allied health notes reviewed: nursing
[2021-12-24 14:18] LABS: Hemoglobin 7.4 gm/dl (10.1-14.3)
[2021-12-24] MEDS: ACETAMINOPHEN 325 MG/10.15 ML ORAL LIQD UNIT DOSE FEEDTUBE PRN ×2 (14:22→20:15)
[2021-12-24] MEDS ORDERED: SODIUM CHLORIDE 0.9% 500 ML 500 ML IV SCH (14:30)
[2021-12-24 22:22] LABS: Hematocrit 25.9 % (30.3-42.9); Hemoglobin 8.8 gm/dl (10.1-14.3)
--- NOTE | 2021-12-25 00:25 | XRay Report ---
ABDOMEN 1 VIEW 12/24/2021 INDICATION / CLINICAL INFORMATION: Check Dobhoff Tube placement. COMPARISON: 12/19/2021 FINDINGS: TUBES / LINES: Enteric tube terminates within the stomach. BOWEL GAS PATTERN: No significant abnormality. FREE AIR / EXTRALUMINAL GAS: None seen. ADDITIONAL FINDINGS: No significant additional findings. IMPRESSION: 1. Enteric tube terminating in the stomach. Signer Name: Timothy Wilson DO Signed: 12/25/2021 12:20 AM Workstation Name: [id number]
[2021-12-25] MEDS: INSULIN LISPRO 100 UNIT/ML SUB-Q SCH ×4 (00:30→17:01)
[2021-12-25] MEDS: ACETAMINOPHEN 325 MG/10.15 ML ORAL LIQD UNIT DOSE FEEDTUBE PRN ×2 (02:04→17:05)
[2021-12-25 06:50] LABS: Hematocrit 24.7 % (30.3-42.9); Hemoglobin 8.3 gm/dl (10.1-14.3); Mean Corpuscular HGB Conc 34 % (30-34); Mean Corpuscular Volume 80 fl (79-97); Platelet Count 105 K/mm3 (140-440); Red Cell Distribution Width 17.7 % (13.2-15.2)
[2021-12-25] MEDS: BUDESONIDE 0.5 MG/2 ML NEBU IH SCH ×2 (07:17→20:10)
[2021-12-25] MEDS: IPRATROPIUM/ALBUTEROL SULFATE 3 ML AMPUL.NEB IH SCH ×3 (07:17→20:10)
--- NOTE | 2021-12-25 08:35 | Progress Note ---
Subjective Principal diagnosis: Septic shock ; Bacteremia; ESRD on dialysis; AMS; NSTEMI; HTN; DM II Interval history: Assessment and plan ESRD: Continue with hemodialysis treatment on Wednesday, ultrafiltration only as tolerated, Her access arm appears to be swollen, now that patient is doing better we would consider obtaining vascular evaluation Anemia in end-stage renal disease: To monitor and follow, erythropoietin as needed, Bone mineral disorder and secondary hyperparathyroidism, periodically check phosphorus and PTH level Hypotension, currently on midodrine judicious ultrafiltration with hemodialysis, will change dialysis prescription to a sodium of 140 bicarbonate 35, dialysate temperature 35.5 Cardiovascular moderately severe cardiomyopathy ejection fraction 35 to 40% Bacteremia, group B strep dialysis catheter has been removed, no evidence of any valvular vegetation cardiology notes appreciated, Thrombocytopenia: Of multifactorial etiology, being followed by primary team as well as hematology, HIT test was negative Multiple other comorbidities including but not limited to hypertension, seizure, diabetes, CVA, left-sided weakness, TX, PCI placement, gastroesophageal reflux disorder congestive heart failure, and many others Time spent in critical care 35 minutes If there are any further renal questions please feel free to reach us We'll continue to follow and make recommendation for renal standpoint. Progress note by: Sagar Kent MD [address] [place] [id number] Tele [phone] [employer] Patient was seen today for follow-up of multiple renal related issues She is currently extubated, alert awake following commands Events of 24 hours vitals labs intake output medications were reviewed Past medical history: Reviewed Family history: Reviewed Social history: Reviewed Allergies: Reviewed Physical examination: Vitals: Reviewed HEENT: No pallor or icterus oral mucosa moist Neck: Supple no JVD no thyromegaly Chest: Bilateral clear to auscultation anteriorly Heart: Regular rate and rhythm S1-S2 heard no S3-S4 Abdomen: Soft nontender no voluntary guarding rigidity rebound Extremity: Dry skin less than 1+ peripheral edema Continues to have swelling of the left upper extremity which is generalized without any peripheral cyanosis Psychiatric: No evidence of agitation and aggression noted Dermatology: No petechial rashes Labs and x-rays: Reviewed from today Objective - Vital Signs Vital signs: Vital Signs - 12hr 12/24/21 12/24/21 12/24/21 21:00 21:15 22:00 Temperature Pulse Rate 95 H 89 Pulse Rate [ Anterior Bilateral Throughout] Pulse Rate [ From Monitor] Respiratory 18 18 20 Rate Respiratory Rate [Anterior Bilateral Throughout] Blood Pressure 88/49 89/53 O2 Sat by Pulse 100 100 Oximetry 12/24/21 12/24/21 12/25/21 23:00 23:50 00:00 Temperature 98.1 F Pulse Rate 91 H 87 86 Pulse Rate [ Anterior Bilateral Throughout] Pulse Rate [ 86 From Monitor] Respiratory 16 22 23 Rate Respiratory Rate [Anterior Bilateral Throughout] Blood Pressure 83/48 83/48 120/77 O2 Sat by Pulse 95 96 100 Oximetry 12/25/21 12/25/21 12/25/21 00:05 01:00 02:00 Temperature Pulse Rate 86 87 88 Pulse Rate [ Anterior Bilateral Throughout] Pulse Rate [ From Monitor] Respiratory 23 21 23 Rate Respiratory Rate [Anterior Bilateral Throughout] Blood Pressure 120/77 94/63 98/55 O2 Sat by Pulse 100 99 100 Oximetry 12/25/21 12/25/21 12/25/21 02:04 03:00 03:04 Temperature Pulse Rate 88 Pulse Rate [ Anterior Bilateral Throughout] Pulse Rate [ From Monitor] Respiratory 21 20 17 Rate Respiratory Rate [Anterior Bilateral Throughout] Blood Pressure 97/55 O2 Sat by Pulse 100 Oximetry 12/25/21 12/25/21 12/25/21 03:13 04:00 05:00 Temperature 98.4 F Pulse Rate 94 H 98 H Pulse Rate [ Anterior Bilateral Throughout] Pulse Rate [ 94 H From Monitor] Respiratory 23 22 Rate Respiratory Rate [Anterior Bilateral Throughout] Blood Pressure 90/56 100/60 O2 Sat by Pulse 100 100 Oximetry 12/25/21 12/25/21 12/25/21 06:00 07:17 07:24 Temperature 99.6 F Pulse Rate 93 H Pulse Rate [ 90 Anterior Bilateral Throughout] Pulse Rate [ From Monitor] Respiratory 20 Rate Respiratory 18 Rate [Anterior Bilateral Throughout] Blood Pressure 98/57 O2 Sat by Pulse 100 100 Oximetry - Lab 12/25/21 05:12 12/25/21 05:12 Most recent lab results ABG pH 7.450 pH Units (7.350-7.450) 12/24/21 Unknown ABG pCO2 39.1 mm Hg 12/24/21 Unknown ABG pO2 109.1 mm Hg (80.0-90.0) H 12/24/21 Unknown ABG HCO3 26.6 mmol/L (20.0-26.0) H 12/24/21 Unknown ABG O2 Saturation 98.1 % (95.0-99.0) 12/24/21 Unknown Calcium 8.0 mg/dL (8.4-10.2) L 12/25/21 05:12 Phosphorus 4.90 mg/dL (2.5-4.5) H 12/23/21 04:39 Magnesium 1.90 mg/dL (1.7-2.3) 12/23/21 04:39 Medications & Allergies - Medications Allergies/Adverse Reactions: Allergies No Known Allergies Allergy (Verified 12/11/21 22:19) Home Medications: Home Medications Medication Instructions Recorded Confirmed Last Taken Type Albuterol Sulfate [Proair 2 puff IH Q6HR PRN 11/23/21 12/14/21 Unknown History Digihaler] Calcium Acetate 2 tab PO TID 11/23/21 12/14/21 Unknown History Fluticasone/Umeclidin/Vilanter 1 each IH DAILY 11/23/21 12/14/21 Unknown History [Trelegy Ellipta 100-62.5-25] Furosemide [Lasix TAB] 40 mg PO QDAY 11/23/21 12/14/21 Unknown History Insulin Aspart (Nf) [NovoLOG 55 unit SQ TID 11/23/21 12/14/21 Unknown History Flexpen] Insulin Glargine [Lantus VIAL] 25 units SQ QHS 11/23/21 12/14/21 Unknown History Omeprazole 20 mg PO DAILY 11/23/21 12/14/21 Unknown History Spironolactone [Aldactone] 100 mg PO QDAY 11/23/21 12/14/21 Unknown History lisinopriL [Lisinopril] 20 mg PO BID 11/23/21 12/14/21 12/06/21 History 500 MG Docusate Sodium [Colace CAP] 100 mg PO BID PRN #60 capsule 11/24/21 12/14/21 Unknown Rx Aspirin EC [Halfprin EC] 81 mg PO DAILY 90 Days #90 tablet 11/26/21 12/14/21 Unknown Rx Aspirin [Adult Aspirin] 81 mg PO DAILY 90 Days #90 tab 11/26/21 12/14/21 Unknown Rx ISOSORBIDE MONOnitrate [Imdur ER] 60 mg PO QDAY 90 Days #90 tab 11/26/21 12/14/21 Unknown Rx Sevelamer Carbonate [Renvela] 800 mg PO TIDWM 90 Days #270 tab 11/26/21 12/14/21 Unknown Rx amLODIPine 10 mg PO DAILY 90 Days #90 tab 11/26/21 12/14/21 Unknown Rx carvediloL [Coreg] 25 mg PO BID 90 Days #180 tab 11/26/21 12/14/21 Unknown Rx Atorvastatin Calcium [Lipitor] 80 mg PO QHS 90 Days #90 tab 11/27/21 12/14/21 Unknown Rx levETIRAcetam [Keppra TAB] 500 mg PO 3XW 12/14/21 12/14/21 12/06/21 History 500 MG Active Medications: Generic Name Dose Route Start Last Admin Trade Name Freq PRN Reason Stop Dose Admin Acetaminophen 650 mg 12/13/21 23:00 12/13/21 23:18 Acetaminophen 650 Mg Rect Supp [place] 650 mg Q4H PRN Administration Pain, Mild (1-3) Acetaminophen 650 mg 12/24/21 14:02 12/25/21 02:04 Acetaminophen 325 Mg/10.15 Ml Oral Liqd Unit Dose FEEDTUBE 650 mg Q6H PRN Administration Pain, Mild (1-3) Albuterol 2.5 mg 12/11/21 22:14 Albuterol 2.5 Mg/3 Ml Nebu IH Q6HR PRN Wheezing Albuterol/Ipratropium 1 ampul 12/14/21 08:00 12/25/21 07:17 Ipratropium/Albuterol Sulfate 3 Ml Ampul.Neb IH 1 ampul TIDRT KRISTA Administration Lipase/Protease/Amylase 1 each 12/16/21 11:15 Lipase 10,500/Protease 25,000/Amylase 43,750 (Units) Dr Blanco FEEDTUBE PRN PRN For Clogged Feeding Tube Atorvastatin Calcium 80 mg 12/15/21 22:00 12/24/21 22:00 Atorvastatin 40 Mg Tab FEEDTUBE 80 mg QHS KRISTA Administration Budesonide 0.5 mg 12/13/21 08:00 12/25/21 07:17 Budesonide 0.5 Mg/2 Ml Nebu IH 0.5 mg Q12HRT KRISTA Administration Dextrose 50 ml 12/11/21 22:23 12/16/21 06:24 Dextrose 50% In Water (25gm) 50 Ml Syringe IV 15 ml Q30MIN PRN Administration Hypoglycemia Protocol Hydrophilic Ointment 1 applic 12/16/21 14:30 Lip Therapy Vaseline TP Q2HR PRN Dry Lips Sodium Chloride 100 mls @ 999 mls/hr 12/12/21 12:00 Nacl 0.9% IV ABEL PRN Hypotension Ceftriaxone Sodium 2 gm in 100 mls @ 200 mls/hr 12/16/21 15:00 12/24/21 14:07 Rocephin/Ns 2 Gm/100 Ml IV 12/29/21 15:29 200 mls/hr Q24H KRISTA Administration Protocol Insulin Glargine 5 units 12/25/21 22:00 Insulin Glargine 100 Units/Ml SUB-Q QHS KRISTA Insulin Human Lispro 0 unit 12/15/21 12:00 12/25/21 06:05 Insulin Lispro 100 Unit/Ml SUB-Q 4 unit Q6HR KRISTA Administration Protocol Lansoprazole 30 mg 12/25/21 10:00 Lansoprazole 30 Mg Solutab FEEDTUBE QDAY KRISTA Levetiracetam 500 mg 12/16/21 18:00 12/23/21 17:32 Levetiracetam 500 Mg/5 Ml Oral Liqd FEEDTUBE 500 mg TuThSa KRISTA Administration Midodrine 5 mg 12/24/21 12:00 12/24/21 16:40 Midodrine 5 Mg Tab FEEDTUBE Not Given TID@0800,1200,1600 [facility] Morphine Sulfate 2 mg 12/11/21 22:11 12/24/21 03:20 Morphine 4 Mg/1 Ml Inj IV 2 mg Q5MIN PRN Administration Chest Pain unrelieved by NTG Multi-Ingred Cream/Lotion/Oil/Oint 1 applic 12/16/21 14:10 Mineral Oil/Petrolatum, White Ophth Oint 3.5 Gm OU Q4HR PRN Dry Eye(s) Nitroglycerin 0.4 mg 12/11/21 22:11 Nitroglycerin 0.4 Mg Tab Subl SL Q5M PRN Chest Pain Senna/Docusate Sodium 1 tab 12/16/21 22:00 12/24/21 22:00 Sennosides/Docusate Sodium 8.6/50 Mg Tab FEEDTUBE 1 tab BID KRISTA Administration Simple Syrup 15 ml 12/16/21 11:15 Simple Syrup 15 Ml FEEDTUBE PRN PRN Hypoglycemia Simple Syrup 30 ml 12/16/21 11:15 Simple Syrup 15 Ml FEEDTUBE PRN PRN Hypoglycemia Sodium Bicarbonate 325 mg 12/16/21 11:15 Sodium Bicarbonate 325 Mg Tab FEEDTUBE PRN PRN For Clogged Feeding Tube Sodium Chloride 10 ml 12/11/21 22:11 12/24/21 09:24 Sodium Chloride 0.9% 10 Ml Flush Syringe IV 10 ml PRN PRN Administration LINE FLUSH
--- NOTE | 2021-12-25 08:52 | Progress Note ---
Assessment and Plan Septic shock Bacteremia with gram-positive cocci End-stage renal disease on dialysis Colitis Acute toxic metabolic encephalopathy Thrombocytopenia Non-ST elevation myocardial infarction A-Fib with RVR Hypertension Diabetes type 2 Anemia that is normocytic - prn BIPAP - follow C-diff assay - swallow evaluation - continue care as below otherwise; - continue wound care per RN / WCN - thrombocytopenia is improving (HIT assay negative) - continue to wean supplemental oxygen for target O2 sat's > 90% acutely - VAP bundle addressed - continue lung protective strategies - continue bronchodilators with pulmonary hygiene per RT - wean per pulmonary driven protocols otherwise - continue HD/UF for toxin and volume clearance - avoid nephrotoxins, renally dose all medications - continue to avoid benzodiazepine's, reduce the possibility of delirium - complete AB's per ID rec's (On Rocephin) - prn analgesia per pain score - Maintenance of sleep-wake cycle, avoid delirium - continue enteral nutritional support at goal rate as tolerated - G.I. & VTE prophylaxis - PT/OT/ROM exercises - continue mobility protocols for pressure ulcer prophylaxis - Monitor hemodynamics closely - continue other care per attending / other consultants - discharge planning ongoing concurrently .... Re-evaluate in am & prn ..... transfer to medical floor Subjective Date of service: 12/25/21 Principal diagnosis: Septic shock ; Bacteremia; ESRD on dialysis; AMS; NSTEMI; HTN; DM II Interval history: Patient is seen today for: Septic shock ; gm +ve Bacteremia; ESRD on dialysis; AMS; NSTEMI; Hypertension; DM II Seen and examined at bedside; 24hour events reviewed; nursing and respiratory care staff consulted; no adverse overnight events reported to me; resting peacefully in bed; extubated yesterday and doing well so far; denies acute chest pains or palpitations; no N/V/F/C Objective Vital Signs - 12hr 12/24/21 12/24/21 12/24/21 21:00 21:15 22:00 Temperature Pulse Rate 95 H 89 Pulse Rate [ Anterior Bilateral Throughout] Pulse Rate [ From Monitor] Respiratory 18 18 20 Rate Respiratory Rate [Anterior Bilateral Throughout] Blood Pressure 88/49 89/53 O2 Sat by Pulse 100 100 Oximetry 12/24/21 12/24/21 12/25/21 23:00 23:50 00:00 Temperature 98.1 F Pulse Rate 91 H 87 86 Pulse Rate [ Anterior Bilateral Throughout] Pulse Rate [ 86 From Monitor] Respiratory 16 22 23 Rate Respiratory Rate [Anterior Bilateral Throughout] Blood Pressure 83/48 83/48 120/77 O2 Sat by Pulse 95 96 100 Oximetry 12/25/21 12/25/21 12/25/21 00:05 01:00 02:00 Temperature Pulse Rate 86 87 88 Pulse Rate [ Anterior Bilateral Throughout] Pulse Rate [ From Monitor] Respiratory 23 21 23 Rate Respiratory Rate [Anterior Bilateral Throughout] Blood Pressure 120/77 94/63 98/55 O2 Sat by Pulse 100 99 100 Oximetry 12/25/21 12/25/21 12/25/21 02:04 03:00 03:04 Temperature Pulse Rate 88 Pulse Rate [ Anterior Bilateral Throughout] Pulse Rate [ From Monitor] Respiratory 21 20 17 Rate Respiratory Rate [Anterior Bilateral Throughout] Blood Pressure 97/55 O2 Sat by Pulse 100 Oximetry 12/25/21 12/25/21 12/25/21 03:13 04:00 05:00 Temperature 98.4 F Pulse Rate 94 H 98 H Pulse Rate [ Anterior Bilateral Throughout] Pulse Rate [ 94 H From Monitor] Respiratory 23 22 Rate Respiratory Rate [Anterior Bilateral Throughout] Blood Pressure 90/56 100/60 O2 Sat by Pulse 100 100 Oximetry 12/25/21 12/25/21 12/25/21 06:00 07:17 07:24 Temperature 99.6 F Pulse Rate 93 H Pulse Rate [ 90 Anterior Bilateral Throughout] Pulse Rate [ From Monitor] Respiratory 20 Rate Respiratory 18 Rate [Anterior Bilateral Throughout] Blood Pressure 98/57 O2 Sat by Pulse 100 100 Oximetry Constitutional: no acute distress, other (elderly female with normal respiratory effort at rest) Eyes: non-icteric ENT: oropharynx moist, other (extubated) Neck: supple, no JVD Effort: normal Ascultation: Bilateral: rhonchi (scant) Percussion: Bilateral: not dull Cardiovascular: regular rate and rhythm Gastrointestinal: normoactive bowel sounds, soft, non-tender, non-distended (protuberant) Integumentary: rash (right groin / ? scar), other (Left upper extremity AV graft; right forearm blisters (open and closed) and induration; no pus) Extremities: no cyanosis, pulses normal, no ischemia or petechiae, edema (right upper extremity) Neurologic: non-focal exam (grossly), pupils equal and round, CN II-XII normal, motor strength normal and Psychiatric: mood appropriate, affect normal CBC and BMP: 12/25/21 05:12 12/25/21 05:12 ABG, PT/INR, D-dimer: ABG ABG pH 7.450 pH Units (7.350-7.450) 12/24/21 Unknown POC ABG pCO2 36.0 mmHg (32.0-48.0) 12/21/21 10:20 ABG pCO2 39.1 mm Hg 12/24/21 Unknown POC ABG pO2 126.1 mmHg (83-108) H 12/21/21 10:20 ABG pO2 109.1 mm Hg (80.0-90.0) H 12/24/21 Unknown POC ABG HCO3 24.3 12/21/21 10:20 ABG O2 Saturation 98.1 % (95.0-99.0) 12/24/21 Unknown PT/INR, D-dimer PT 17.7 Sec. (12.2-14.9) H 12/22/21 14:05 INR 1.30 (0.87-1.13) H 12/22/21 14:05 Abnormal lab findings: Abnormal Labs 12/11/21 12/11/21 12/12/21 14:52 15:40 04:43 WBC RBC 3.57 L Hgb 9.4 L Hct 29.5 L MCH 26 L 27 L RDW 17.8 H 17.9 H Plt Count 119 L 110 L Lymph % (Auto) 4.0 L Lymph # (Auto) 0.3 L Seg Neutrophils % 90.0 H Seg Neuts % (Manual) Lymphocytes % (Manual) Monocytes % (Manual) Nucleated RBC % Seg Neutrophils # Seg Neutrophils # Man Lymphocytes # (Manual) Percent Retic PT INR Fibrinogen ABG pH POC ABG pO2 ABG pO2 ABG HCO3 ABG O2 Saturation ABG Base Excess ABG Hemoglobin VBG pO2 Oxyhemoglobin Sodium Potassium Chloride Carbon Dioxide 18 L BUN 76 H Creatinine 9.2 H Glucose POC Glucose Lactic Acid Calcium 7.7 L Phosphorus Magnesium Iron TIBC Ferritin Alkaline Phosphatase 237 H Lactate Dehydrogenase Troponin T 0.168 H* C-Reactive Protein Albumin 3.6 L LDL Cholesterol Direct 16 L Crossmatch 12/12/21 12/12/21 12/12/21 04:43 04:43 08:49 WBC RBC Hgb Hct MCH RDW Plt Count Lymph % (Auto) Lymph # (Auto) Seg Neutrophils % Seg Neuts % (Manual) Lymphocytes % (Manual) Monocytes % (Manual) Nucleated RBC % Seg Neutrophils # Seg Neutrophils # Man Lymphocytes # (Manual) Percent Retic PT INR Fibrinogen ABG pH POC ABG pO2 ABG pO2 ABG HCO3 ABG O2 Saturation ABG Base Excess ABG Hemoglobin VBG pO2 Oxyhemoglobin Sodium 136 L Potassium Chloride 96.0 L Carbon Dioxide BUN 85 H Creatinine 9.6 H Glucose 57 L POC Glucose 47 L Lactic Acid Calcium 7.8 L Phosphorus Magnesium Iron TIBC Ferritin Alkaline Phosphatase Lactate Dehydrogenase Troponin T 0.175 H* C-Reactive Protein Albumin LDL Cholesterol Direct Crossmatch 12/12/21 12/13/21 12/13/21 11:12 07:30 07:30 WBC RBC Hgb 9.7 L Hct 30.0 L MCH 27 L RDW 18.0 H Plt Count 99 L Lymph % (Auto) 4.8 L Lymph # (Auto) 0.3 L Seg Neutrophils % 88.2 H Seg Neuts % (Manual) Lymphocytes % (Manual) Monocytes % (Manual) Nucleated RBC % Seg Neutrophils # Seg Neutrophils # Man Lymphocytes # (Manual) Percent Retic PT INR Fibrinogen ABG pH POC ABG pO2 ABG pO2 ABG HCO3 ABG O2 Saturation ABG Base Excess ABG Hemoglobin VBG pO2 Oxyhemoglobin Sodium Potassium 5.1 H Chloride 97.8 L Carbon Dioxide 16 L BUN 92 H Creatinine 10.6 H Glucose 121 H POC Glucose 64 L Lactic Acid Calcium 7.6 L Phosphorus Magnesium Iron TIBC Ferritin Alkaline Phosphatase Lactate Dehydrogenase Troponin T C-Reactive Protein Albumin LDL Cholesterol Direct Crossmatch 12/13/21 12/13/21 12/13/21 08:06 11:32 16:59 WBC RBC Hgb Hct MCH RDW Plt Count Lymph % (Auto) Lymph # (Auto) Seg Neutrophils % Seg Neuts % (Manual) Lymphocytes % (Manual) Monocytes % (Manual) Nucleated RBC % Seg Neutrophils # Seg Neutrophils # Man Lymphocytes # (Manual) Percent Retic PT INR Fibrinogen ABG pH POC ABG pO2 ABG pO2 ABG HCO3 ABG O2 Saturation ABG Base Excess ABG Hemoglobin VBG pO2 Oxyhemoglobin Sodium Potassium Chloride Carbon Dioxide BUN Creatinine Glucose POC Glucose 118 H 128 H 130 H Lactic Acid Calcium Phosphorus Magnesium Iron TIBC Ferritin Alkaline Phosphatase Lactate Dehydrogenase Troponin T C-Reactive Protein Albumin LDL Cholesterol Direct Crossmatch 12/13/21 12/14/21 12/14/21 20:16 11:10 11:10 WBC RBC Hgb 9.9 L Hct MCH 27 L RDW 18.1 H Plt Count 82 L Lymph % (Auto) 5.8 L Lymph # (Auto) 0.4 L Seg Neutrophils % 88.3 H Seg Neuts % (Manual) Lymphocytes % (Manual) Monocytes % (Manual) Nucleated RBC % Seg Neutrophils # Seg Neutrophils # Man Lymphocytes # (Manual) Percent Retic PT INR Fibrinogen ABG pH POC ABG pO2 ABG pO2 ABG HCO3 ABG O2 Saturation ABG Base Excess ABG Hemoglobin VBG pO2 Oxyhemoglobin Sodium Potassium Chloride Carbon Dioxide 21 L BUN 57 H Creatinine 7.1 H Glucose 105 H POC Glucose 113 H Lactic Acid Calcium Phosphorus Magnesium Iron TIBC Ferritin Alkaline Phosphatase Lactate Dehydrogenase Troponin T C-Reactive Protein Albumin LDL Cholesterol Direct Crossmatch 12/14/21 12/14/21 12/15/21 11:46 16:41 04:11 WBC RBC Hgb 9.9 L Hct 30.0 L MCH 27 L RDW 18.4 H Plt Count 57 L Lymph % (Auto) Lymph # (Auto) Seg Neutrophils % Seg Neuts % (Manual) Lymphocytes % (Manual) 9.0 L Monocytes % (Manual) 10.0 H Nucleated RBC % Seg Neutrophils # Seg Neutrophils # Man Lymphocytes # (Manual) 0.6 L Percent Retic PT INR Fibrinogen ABG pH POC ABG pO2 ABG pO2 ABG HCO3 ABG O2 Saturation ABG Base Excess ABG Hemoglobin VBG pO2 Oxyhemoglobin Sodium Potassium Chloride Carbon Dioxide BUN Creatinine Glucose POC Glucose 108 H 111 H Lactic Acid Calcium Phosphorus Magnesium Iron TIBC Ferritin Alkaline Phosphatase Lactate Dehydrogenase Troponin T C-Reactive Protein Albumin LDL Cholesterol Direct Crossmatch 12/15/21 12/15/21 12/15/21 04:11 08:48 10:02 WBC RBC Hgb Hct MCH RDW Plt Count Lymph % (Auto) Lymph # (Auto) Seg Neutrophils % Seg Neuts % (Manual) Lymphocytes % (Manual) Monocytes % (Manual) Nucleated RBC % Seg Neutrophils # Seg Neutrophils # Man Lymphocytes # (Manual) Percent Retic PT INR Fibrinogen ABG pH POC ABG pO2 ABG pO2 ABG HCO3 ABG O2 Saturation ABG Base Excess ABG Hemoglobin VBG pO2 Oxyhemoglobin Sodium Potassium Chloride Carbon Dioxide 19 L BUN 68 H Creatinine 7.6 H Glucose POC Glucose 68 L 65 L Lactic Acid Calcium 8.1 L Phosphorus Magnesium Iron TIBC Ferritin Alkaline Phosphatase Lactate Dehydrogenase Troponin T C-Reactive Protein Albumin LDL Cholesterol Direct Crossmatch 12/15/21 12/15/21 12/15/21 10:20 10:51 14:40 WBC RBC Hgb Hct MCH RDW Plt Count Lymph % (Auto) Lymph # (Auto) Seg Neutrophils % Seg Neuts % (Manual) Lymphocytes % (Manual) Monocytes % (Manual) Nucleated RBC % Seg Neutrophils # Seg Neutrophils # Man Lymphocytes # (Manual) Percent Retic PT INR Fibrinogen ABG pH POC ABG pO2 ABG pO2 ABG HCO3 ABG O2 Saturation ABG Base Excess ABG Hemoglobin VBG pO2 Oxyhemoglobin Sodium Potassium Chloride Carbon Dioxide BUN Creatinine Glucose POC Glucose 59 L 60 L Lactic Acid 2.50 H* Calcium Phosphorus Magnesium Iron TIBC Ferritin Alkaline Phosphatase Lactate Dehydrogenase Troponin T C-Reactive Protein Albumin LDL Cholesterol Direct Crossmatch 12/15/21 12/15/21 12/16/21 14:40 19:50 05:00 WBC 12.4 H RBC Hgb 9.6 L Hct 29.4 L MCH 26 L RDW 18.1 H Plt Count 40 L Lymph % (Auto) Lymph # (Auto) Seg Neutrophils % Seg Neuts % (Manual) 95.0 H Lymphocytes % (Manual) 5.0 L Monocytes % (Manual) Nucleated RBC % Seg Neutrophils # Seg Neutrophils # Man 11.8 H Lymphocytes # (Manual) 0.6 L Percent Retic PT INR Fibrinogen ABG pH POC ABG pO2 ABG pO2 463.3 H ABG HCO3 ABG O2 Saturation 99.6 H ABG Base Excess ABG Hemoglobin 10.9 L VBG pO2 > 258.0 H Oxyhemoglobin Sodium Potassium Chloride Carbon Dioxide BUN Creatinine Glucose POC Glucose Lactic Acid Calcium Phosphorus Magnesium Iron TIBC Ferritin Alkaline Phosphatase Lactate Dehydrogenase Troponin T C-Reactive Protein 38.50 H Albumin LDL Cholesterol Direct Crossmatch 12/16/21 12/16/21 12/16/21 05:00 06:15 09:58 WBC RBC Hgb Hct MCH RDW Plt Count Lymph % (Auto) Lymph # (Auto) Seg Neutrophils % Seg Neuts % (Manual) Lymphocytes % (Manual) Monocytes % (Manual) Nucleated RBC % Seg Neutrophils # Seg Neutrophils # Man Lymphocytes # (Manual) Percent Retic PT INR Fibrinogen ABG pH POC ABG pO2 ABG pO2 48.0 L ABG HCO3 ABG O2 Saturation 80.5 L ABG Base Excess -2.9 L ABG Hemoglobin 11.2 L VBG pO2 Oxyhemoglobin 78.8 L Sodium Potassium Chloride Carbon Dioxide BUN 75 H Creatinine 7.7 H Glucose POC Glucose 67 L Lactic Acid Calcium 8.3 L Phosphorus Magnesium Iron TIBC Ferritin Alkaline Phosphatase Lactate Dehydrogenase Troponin T C-Reactive Protein Albumin LDL Cholesterol Direct Crossmatch 12/16/21 12/16/21 12/17/21 11:06 23:24 04:00 WBC 12.3 H RBC 3.32 L Hgb 8.8 L Hct 26.5 L MCH 26 L RDW 18.0 H Plt Count 27 L Lymph % (Auto) 5.9 L Lymph # (Auto) 0.7 L Seg Neutrophils % 88.3 H Seg Neuts % (Manual) Lymphocytes % (Manual) Monocytes % (Manual) Nucleated RBC % Seg Neutrophils # 10.9 H Seg Neutrophils # Man Lymphocytes # (Manual) Percent Retic PT INR Fibrinogen ABG pH POC ABG pO2 ABG pO2 137.7 H ABG HCO3 ABG O2 Saturation ABG Base Excess ABG Hemoglobin 9.9 L VBG pO2 Oxyhemoglobin Sodium Potassium Chloride Carbon Dioxide BUN Creatinine Glucose POC Glucose 110 H Lactic Acid Calcium Phosphorus Magnesium Iron TIBC Ferritin Alkaline Phosphatase Lactate Dehydrogenase Troponin T C-Reactive Protein Albumin LDL Cholesterol Direct Crossmatch 12/17/21 12/17/21 12/17/21 04:30 04:30 11:18 WBC RBC Hgb Hct MCH RDW Plt Count Lymph % (Auto) Lymph # (Auto) Seg Neutrophils % Seg Neuts % (Manual) Lymphocytes % (Manual) Monocytes % (Manual) Nucleated RBC % Seg Neutrophils # Seg Neutrophils # Man Lymphocytes # (Manual) Percent Retic PT INR Fibrinogen ABG pH POC ABG pO2 ABG pO2 ABG HCO3 ABG O2 Saturation ABG Base Excess ABG Hemoglobin VBG pO2 Oxyhemoglobin Sodium Potassium Chloride Carbon Dioxide BUN 43 H Creatinine 5.0 H Glucose 129 H POC Glucose 149 H Lactic Acid Calcium 7.8 L Phosphorus 1.90 L Magnesium 1.60 L Iron TIBC Ferritin Alkaline Phosphatase Lactate Dehydrogenase Troponin T C-Reactive Protein Albumin LDL Cholesterol Direct Crossmatch 12/17/21 12/17/21 12/17/21 14:35 16:58 18:32 WBC RBC Hgb Hct MCH RDW Plt Count Lymph % (Auto) Lymph # (Auto) Seg Neutrophils % Seg Neuts % (Manual) Lymphocytes % (Manual) Monocytes % (Manual) Nucleated RBC % Seg Neutrophils # Seg Neutrophils # Man Lymphocytes # (Manual) Percent Retic PT 17.4 H INR 1.27 H Fibrinogen 486 H ABG pH 7.316 L POC ABG pO2 ABG pO2 74.0 L ABG HCO3 ABG O2 Saturation 93.7 L ABG Base Excess -3.3 L ABG Hemoglobin 8.8 L VBG pO2 Oxyhemoglobin 91.7 L Sodium Potassium Chloride Carbon Dioxide BUN Creatinine Glucose POC Glucose 219 H Lactic Acid Calcium Phosphorus Magnesium Iron TIBC Ferritin Alkaline Phosphatase Lactate Dehydrogenase Troponin T C-Reactive Protein Albumin LDL Cholesterol Direct Crossmatch 12/17/21 12/18/21 12/18/21 23:19 05:00 05:00 WBC 15.3 H RBC 3.25 L Hgb 8.4 L Hct 25.7 L MCH 26 L RDW 18.2 H Plt Count 28 L Lymph % (Auto) Lymph # (Auto) Seg Neutrophils % Seg Neuts % (Manual) 99.0 H Lymphocytes % (Manual) 1.0 L Monocytes % (Manual) Nucleated RBC % 1.0 H Seg Neutrophils # Seg Neutrophils # Man 15.1 H Lymphocytes # (Manual) 0.2 L Percent Retic 0.37 L PT INR Fibrinogen ABG pH POC ABG pO2 ABG pO2 ABG HCO3 ABG O2 Saturation ABG Base Excess ABG Hemoglobin VBG pO2 Oxyhemoglobin Sodium 135 L Potassium Chloride Carbon Dioxide 20 L BUN 53 H Creatinine 5.2 H Glucose 307 H POC Glucose 313 H Lactic Acid Calcium 8.0 L Phosphorus Magnesium Iron 13 L TIBC 109 L Ferritin Alkaline Phosphatase Lactate Dehydrogenase Troponin T C-Reactive Protein Albumin LDL Cholesterol Direct Crossmatch 12/18/21 12/18/21 12/18/21 05:00 05:00 09:00 WBC RBC Hgb Hct MCH RDW Plt Count Lymph % (Auto) Lymph # (Auto) Seg Neutrophils % Seg Neuts % (Manual) Lymphocytes % (Manual) Monocytes % (Manual) Nucleated RBC % Seg Neutrophils # Seg Neutrophils # Man Lymphocytes # (Manual) Percent Retic PT INR Fibrinogen 481 H ABG pH POC ABG pO2 ABG pO2 50.2 L ABG HCO3 ABG O2 Saturation 81.7 L ABG Base Excess -3.6 L ABG Hemoglobin 8.0 L VBG pO2 Oxyhemoglobin 80.0 L Sodium Potassium Chloride Carbon Dioxide BUN Creatinine Glucose POC Glucose Lactic Acid Calcium Phosphorus Magnesium Iron TIBC Ferritin 383.4 H Alkaline Phosphatase Lactate Dehydrogenase Troponin T C-Reactive Protein Albumin LDL Cholesterol Direct Crossmatch 12/18/21 12/18/21 12/18/21 10:56 11:10 12:00 WBC RBC Hgb Hct MCH RDW Plt Count Lymph % (Auto) Lymph # (Auto) Seg Neutrophils % Seg Neuts % (Manual) Lymphocytes % (Manual) Monocytes % (Manual) Nucleated RBC % Seg Neutrophils # Seg Neutrophils # Man Lymphocytes # (Manual) Percent Retic PT INR Fibrinogen ABG pH POC ABG pO2 ABG pO2 92.7 H ABG HCO3 19.8 L ABG O2 Saturation ABG Base Excess -3.8 L ABG Hemoglobin 6.6 L VBG pO2 Oxyhemoglobin Sodium Potassium Chloride Carbon Dioxide BUN Creatinine Glucose POC Glucose 190 H Lactic Acid Calcium Phosphorus 2.40 L D Magnesium Iron TIBC Ferritin Alkaline Phosphatase Lactate Dehydrogenase Troponin T C-Reactive Protein Albumin LDL Cholesterol Direct Crossmatch 12/18/21 12/18/21 12/18/21 18:06 20:00 23:05 WBC 19.2 H RBC 3.51 L Hgb 8.8 L Hct 27.8 L MCH 25 L RDW 18.1 H Plt Count 34 L Lymph % (Auto) Lymph # (Auto) Seg Neutrophils % Seg Neuts % (Manual) Lymphocytes % (Manual) Monocytes % (Manual) Nucleated RBC % Seg Neutrophils # Seg Neutrophils # Man Lymphocytes # (Manual) Percent Retic PT INR Fibrinogen ABG pH POC ABG pO2 ABG pO2 62.5 L ABG HCO3 26.6 H ABG O2 Saturation 91.7 L ABG Base Excess ABG Hemoglobin 8.4 L VBG pO2 Oxyhemoglobin 89.9 L Sodium Potassium Chloride Carbon Dioxide BUN Creatinine Glucose POC Glucose 156 H Lactic Acid Calcium Phosphorus Magnesium Iron TIBC Ferritin Alkaline Phosphatase Lactate Dehydrogenase Troponin T C-Reactive Protein Albumin LDL Cholesterol Direct Crossmatch 12/18/21 12/19/21 12/19/21 23:54 05:00 05:00 WBC 18.9 H RBC 3.29 L Hgb 8.4 L Hct 26.0 L MCH 26 L RDW 18.2 H Plt Count 34 L Lymph % (Auto) Lymph # (Auto) Seg Neutrophils % Seg Neuts % (Manual) 93.0 H Lymphocytes % (Manual) 2.0 L Monocytes % (Manual) Nucleated RBC % Seg Neutrophils # Seg Neutrophils # Man 17.6 H Lymphocytes # (Manual) 0.4 L Percent Retic PT INR Fibrinogen ABG pH POC ABG pO2 ABG pO2 ABG HCO3 ABG O2 Saturation ABG Base Excess ABG Hemoglobin VBG pO2 Oxyhemoglobin Sodium Potassium Chloride Carbon Dioxide BUN 30 H Creatinine 3.1 H Glucose 155 H POC Glucose 122 H Lactic Acid Calcium 8.2 L Phosphorus Magnesium Iron TIBC Ferritin Alkaline Phosphatase Lactate Dehydrogenase Troponin T C-Reactive Protein Albumin LDL Cholesterol Direct Crossmatch 12/19/21 12/19/21 12/19/21 05:29 11:41 17:48 WBC RBC Hgb Hct MCH RDW Plt Count Lymph % (Auto) Lymph # (Auto) Seg Neutrophils % Seg Neuts % (Manual) Lymphocytes % (Manual) Monocytes % (Manual) Nucleated RBC % Seg Neutrophils # Seg Neutrophils # Man Lymphocytes # (Manual) Percent Retic PT INR Fibrinogen ABG pH POC ABG pO2 ABG pO2 ABG HCO3 ABG O2 Saturation ABG Base Excess ABG Hemoglobin VBG pO2 Oxyhemoglobin Sodium Potassium Chloride Carbon Dioxide BUN Creatinine Glucose POC Glucose 153 H 164 H 113 H Lactic Acid Calcium Phosphorus Magnesium Iron TIBC Ferritin Alkaline Phosphatase Lactate Dehydrogenase Troponin T C-Reactive Protein Albumin LDL Cholesterol Direct Crossmatch 12/19/21 12/20/21 12/20/21 23:53 04:45 04:45 WBC 15.0 H RBC 3.39 L Hgb 8.4 L Hct 26.8 L MCH 25 L RDW 17.8 H Plt Count 36 L Lymph % (Auto) Lymph # (Auto) Seg Neutrophils % Seg Neuts % (Manual) Lymphocytes % (Manual) Monocytes % (Manual) Nucleated RBC % Seg Neutrophils # Seg Neutrophils # Man Lymphocytes # (Manual) Percent Retic PT INR Fibrinogen ABG pH POC ABG pO2 ABG pO2 ABG HCO3 ABG O2 Saturation ABG Base Excess ABG Hemoglobin VBG pO2 Oxyhemoglobin Sodium 135 L Potassium Chloride 96.1 L Carbon Dioxide BUN 48 H Creatinine 3.9 H Glucose 188 H POC Glucose 157 H Lactic Acid Calcium 8.1 L Phosphorus Magnesium Iron TIBC Ferritin Alkaline Phosphatase Lactate Dehydrogenase Troponin T C-Reactive Protein Albumin LDL Cholesterol Direct Crossmatch 12/20/21 12/20/21 12/20/21 05:07 11:13 16:35 WBC RBC Hgb Hct MCH RDW Plt Count Lymph % (Auto) Lymph # (Auto) Seg Neutrophils % Seg Neuts % (Manual) Lymphocytes % (Manual) Monocytes % (Manual) Nucleated RBC % Seg Neutrophils # Seg Neutrophils # Man Lymphocytes # (Manual) Percent Retic PT INR Fibrinogen ABG pH POC ABG pO2 ABG pO2 ABG HCO3 ABG O2 Saturation ABG Base Excess ABG Hemoglobin VBG pO2 Oxyhemoglobin Sodium Potassium Chloride Carbon Dioxide BUN Creatinine Glucose POC Glucose 169 H 198 H 198 H Lactic Acid Calcium Phosphorus Magnesium Iron TIBC Ferritin Alkaline Phosphatase Lactate Dehydrogenase Troponin T C-Reactive Protein Albumin LDL Cholesterol Direct Crossmatch 12/20/21 12/21/21 12/21/21 23:50 05:58 08:00 WBC 16.7 H RBC Hgb 9.3 L Hct 29.2 L MCH 25 L RDW 18.5 H Plt Count 62 L Lymph % (Auto) Lymph # (Auto) Seg Neutrophils % Seg Neuts % (Manual) Lymphocytes % (Manual) Monocytes % (Manual) Nucleated RBC % Seg Neutrophils # Seg Neutrophils # Man Lymphocytes # (Manual) Percent Retic PT INR Fibrinogen ABG pH POC ABG pO2 ABG pO2 ABG HCO3 ABG O2 Saturation ABG Base Excess ABG Hemoglobin VBG pO2 Oxyhemoglobin Sodium Potassium Chloride Carbon Dioxide BUN Creatinine Glucose POC Glucose 176 H 185 H Lactic Acid Calcium Phosphorus Magnesium Iron TIBC Ferritin Alkaline Phosphatase Lactate Dehydrogenase Troponin T C-Reactive Protein Albumin LDL Cholesterol Direct Crossmatch 12/21/21 12/21/21 12/21/21 08:35 08:35 10:20 WBC RBC Hgb Hct MCH RDW Plt Count Lymph % (Auto) Lymph # (Auto) Seg Neutrophils % Seg Neuts % (Manual) Lymphocytes % (Manual) Monocytes % (Manual) Nucleated RBC % Seg Neutrophils # Seg Neutrophils # Man Lymphocytes # (Manual) Percent Retic PT 16.4 H INR 1.18 H Fibrinogen ABG pH POC ABG pO2 126.1 H ABG pO2 ABG HCO3 ABG O2 Saturation ABG Base Excess ABG Hemoglobin 11.1 L VBG pO2 Oxyhemoglobin Sodium Potassium 3.5 L Chloride Carbon Dioxide BUN 36 H Creatinine 2.7 H Glucose 174 H POC Glucose Lactic Acid Calcium 8.3 L Phosphorus Magnesium Iron TIBC Ferritin Alkaline Phosphatase Lactate Dehydrogenase 249 H Troponin T C-Reactive Protein Albumin LDL Cholesterol Direct Crossmatch 12/21/21 12/21/21 12/21/21 11:18 17:14 18:00 WBC 20.2 H RBC Hgb 9.9 L Hct MCH 25 L RDW 18.0 H Plt Count 60 L Lymph % (Auto) Lymph # (Auto) Seg Neutrophils % Seg Neuts % (Manual) Lymphocytes % (Manual) Monocytes % (Manual) Nucleated RBC % Seg Neutrophils # Seg Neutrophils # Man Lymphocytes # (Manual) Percent Retic PT INR Fibrinogen ABG pH POC ABG pO2 ABG pO2 ABG HCO3 ABG O2 Saturation ABG Base Excess ABG Hemoglobin VBG pO2 Oxyhemoglobin Sodium Potassium Chloride Carbon Dioxide BUN Creatinine Glucose POC Glucose 181 H 222 H Lactic Acid Calcium Phosphorus Magnesium Iron TIBC Ferritin Alkaline Phosphatase Lactate Dehydrogenase Troponin T C-Reactive Protein Albumin LDL Cholesterol Direct Crossmatch 12/21/21 12/21/21 12/22/21 19:26 23:28 04:14 WBC 23.9 H RBC Hgb Hct MCH 25 L RDW 17.8 H Plt Count 68 L Lymph % (Auto) Lymph # (Auto) Seg Neutrophils % Seg Neuts % (Manual) Lymphocytes % (Manual) Monocytes % (Manual) Nucleated RBC % Seg Neutrophils # Seg Neutrophils # Man Lymphocytes # (Manual) Percent Retic PT INR Fibrinogen ABG pH POC ABG pO2 ABG pO2 ABG HCO3 ABG O2 Saturation ABG Base Excess ABG Hemoglobin VBG pO2 Oxyhemoglobin Sodium Potassium Chloride Carbon Dioxide BUN Creatinine Glucose POC Glucose 214 H 260 H Lactic Acid Calcium Phosphorus Magnesium Iron TIBC Ferritin Alkaline Phosphatase Lactate Dehydrogenase Troponin T C-Reactive Protein Albumin LDL Cholesterol Direct Crossmatch 12/22/21 12/22/21 12/22/21 04:14 05:28 11:12 WBC RBC Hgb Hct MCH RDW Plt Count Lymph % (Auto) Lymph # (Auto) Seg Neutrophils % Seg Neuts % (Manual) Lymphocytes % (Manual) Monocytes % (Manual) Nucleated RBC % Seg Neutrophils # Seg Neutrophils # Man Lymphocytes # (Manual) Percent Retic PT INR Fibrinogen ABG pH POC ABG pO2 ABG pO2 ABG HCO3 ABG O2 Saturation ABG Base Excess ABG Hemoglobin VBG pO2 Oxyhemoglobin Sodium 136 L Potassium 3.0 L Chloride Carbon Dioxide BUN 52 H Creatinine 3.5 H Glucose 202 H POC Glucose 223 H 191 H Lactic Acid Calcium 8.1 L Phosphorus Magnesium Iron TIBC Ferritin Alkaline Phosphatase Lactate Dehydrogenase Troponin T C-Reactive Protein Albumin LDL Cholesterol Direct Crossmatch 0512/22/21 12/23/21 14:05 17:57 04:39 WBC 21.1 H RBC Hgb 10.0 L Hct MCH 26 L RDW 17.6 H Plt Count 79 L Lymph % (Auto) Lymph # (Auto) Seg Neutrophils % Seg Neuts % (Manual) Lymphocytes % (Manual) Monocytes % (Manual) Nucleated RBC % Seg Neutrophils # Seg Neutrophils # Man Lymphocytes # (Manual) Percent Retic PT 17.7 H INR 1.30 H Fibrinogen ABG pH POC ABG pO2 ABG pO2 ABG HCO3 ABG O2 Saturation ABG Base Excess ABG Hemoglobin VBG pO2 Oxyhemoglobin Sodium Potassium Chloride Carbon Dioxide BUN Creatinine Glucose POC Glucose 140 H Lactic Acid Calcium Phosphorus Magnesium Iron TIBC Ferritin Alkaline Phosphatase Lactate Dehydrogenase Troponin T C-Reactive Protein Albumin LDL Cholesterol Direct Crossmatch 12/23/21 12/23/21 12/23/21 04:39 05:11 11:44 WBC RBC Hgb Hct MCH RDW Plt Count Lymph % (Auto) Lymph # (Auto) Seg Neutrophils % Seg Neuts % (Manual) Lymphocytes % (Manual) Monocytes % (Manual) Nucleated RBC % Seg Neutrophils # Seg Neutrophils # Man Lymphocytes # (Manual) Percent Retic PT INR Fibrinogen ABG pH POC ABG pO2 ABG pO2 ABG HCO3 ABG O2 Saturation ABG Base Excess ABG Hemoglobin VBG pO2 Oxyhemoglobin Sodium 136 L Potassium Chloride Carbon Dioxide 19 L BUN 61 H Creatinine 4.5 H Glucose 113 H POC Glucose 109 H 132 H Lactic Acid Calcium 7.9 L Phosphorus 4.90 H Magnesium Iron TIBC Ferritin Alkaline Phosphatase Lactate Dehydrogenase Troponin T C-Reactive Protein Albumin LDL Cholesterol Direct Crossmatch 12/23/21 12/23/21 12/23/21 14:05 16:20 16:59 WBC RBC Hgb 9.3 L Hct 28.7 L MCH RDW Plt Count Lymph % (Auto) Lymph # (Auto) Seg Neutrophils % Seg Neuts % (Manual) Lymphocytes % (Manual) Monocytes % (Manual) Nucleated RBC % Seg Neutrophils # Seg Neutrophils # Man Lymphocytes # (Manual) Percent Retic PT INR Fibrinogen ABG pH POC ABG pO2 ABG pO2 ABG HCO3 ABG O2 Saturation ABG Base Excess ABG Hemoglobin VBG pO2 Oxyhemoglobin Sodium Potassium Chloride Carbon Dioxide BUN Creatinine Glucose POC Glucose 180 H Lactic Acid Calcium Phosphorus Magnesium Iron TIBC Ferritin Alkaline Phosphatase Lactate Dehydrogenase Troponin T C-Reactive Protein Albumin LDL Cholesterol Direct Crossmatch See Detail 12/23/21 12/23/21 12/24/21 21:44 23:30 03:45 WBC RBC Hgb Hct MCH RDW Plt Count Lymph % (Auto) Lymph # (Auto) Seg Neutrophils % Seg Neuts % (Manual) Lymphocytes % (Manual) Monocytes % (Manual) Nucleated RBC % Seg Neutrophils # Seg Neutrophils # Man Lymphocytes # (Manual) Percent Retic PT INR Fibrinogen ABG pH POC ABG pO2 ABG pO2 ABG HCO3 ABG O2 Saturation ABG Base Excess ABG Hemoglobin VBG pO2 Oxyhemoglobin Sodium Potassium Chloride Carbon Dioxide BUN Creatinine Glucose POC Glucose 141 H 146 H 199 H Lactic Acid Calcium Phosphorus Magnesium Iron TIBC Ferritin Alkaline Phosphatase Lactate Dehydrogenase Troponin T C-Reactive Protein Albumin LDL Cholesterol Direct Crossmatch 12/24/21 12/24/21 12/24/21 06:00 06:00 12:37 WBC 16.8 H RBC 2.96 L Hgb 7.5 L Hct 23.3 L MCH 26 L RDW 17.8 H Plt Count 89 L Lymph % (Auto) Lymph # (Auto) Seg Neutrophils % Seg Neuts % (Manual) Lymphocytes % (Manual) Monocytes % (Manual) Nucleated RBC % Seg Neutrophils # Seg Neutrophils # Man Lymphocytes # (Manual) Percent Retic PT INR Fibrinogen ABG pH POC ABG pO2 ABG pO2 ABG HCO3 ABG O2 Saturation ABG Base Excess ABG Hemoglobin VBG pO2 Oxyhemoglobin Sodium Potassium 3.3 L Chloride 97.3 L Carbon Dioxide BUN 31 H Creatinine 2.8 H Glucose 208 H POC Glucose 181 H Lactic Acid Calcium 7.6 L Phosphorus Magnesium Iron TIBC Ferritin Alkaline Phosphatase Lactate Dehydrogenase Troponin T C-Reactive Protein Albumin LDL Cholesterol Direct Crossmatch 12/24/21 12/24/21 12/24/21 14:00 17:23 21:50 WBC RBC Hgb 7.4 L 8.8 L Hct 22.0 L 25.9 L MCH RDW Plt Count Lymph % (Auto) Lymph # (Auto) Seg Neutrophils % Seg Neuts % (Manual) Lymphocytes % (Manual) Monocytes % (Manual) Nucleated RBC % Seg Neutrophils # Seg Neutrophils # Man Lymphocytes # (Manual) Percent Retic PT INR Fibrinogen ABG pH POC ABG pO2 ABG pO2 ABG HCO3 ABG O2 Saturation ABG Base Excess ABG Hemoglobin VBG pO2 Oxyhemoglobin Sodium Potassium Chloride Carbon Dioxide BUN Creatinine Glucose POC Glucose 167 H Lactic Acid Calcium Phosphorus Magnesium Iron TIBC Ferritin Alkaline Phosphatase Lactate Dehydrogenase Troponin T C-Reactive Protein Albumin LDL Cholesterol Direct Crossmatch 12/24/21 12/24/21 12/25/21 23:54 Unknown 05:12 WBC 17.4 H RBC 3.10 L Hgb 8.3 L Hct 24.7 L MCH 27 L RDW 17.7 H Plt Count 105 L Lymph % (Auto) Lymph # (Auto) Seg Neutrophils % Seg Neuts % (Manual) Lymphocytes % (Manual) Monocytes % (Manual) Nucleated RBC % Seg Neutrophils # Seg Neutrophils # Man Lymphocytes # (Manual) Percent Retic PT INR Fibrinogen ABG pH POC ABG pO2 ABG pO2 109.1 H ABG HCO3 26.6 H ABG O2 Saturation ABG Base Excess ABG Hemoglobin 6.8 L VBG pO2 Oxyhemoglobin Sodium Potassium Chloride Carbon Dioxide BUN Creatinine Glucose POC Glucose 174 H Lactic Acid Calcium Phosphorus Magnesium Iron TIBC Ferritin Alkaline Phosphatase Lactate Dehydrogenase Troponin T C-Reactive Protein Albumin LDL Cholesterol Direct Crossmatch 12/25/21 05:12 WBC RBC Hgb Hct MCH RDW Plt Count Lymph % (Auto) Lymph # (Auto) Seg Neutrophils % Seg Neuts % (Manual) Lymphocytes % (Manual) Monocytes % (Manual) Nucleated RBC % Seg Neutrophils # Seg Neutrophils # Man Lymphocytes # (Manual) Percent Retic PT INR Fibrinogen ABG pH POC ABG pO2 ABG pO2 ABG HCO3 ABG O2 Saturation ABG Base Excess ABG Hemoglobin VBG pO2 Oxyhemoglobin Sodium Potassium 3.5 L Chloride Carbon Dioxide BUN 38 H Creatinine 3.7 H Glucose 201 H POC Glucose Lactic Acid Calcium 8.0 L Phosphorus Magnesium Iron TIBC Ferritin Alkaline Phosphatase Lactate Dehydrogenase Troponin T C-Reactive Protein Albumin LDL Cholesterol Direct Crossmatch Allied health notes reviewed: nursing
[2021-12-25] MEDS: SENNOSIDES/DOCUSATE SODIUM 8.6/50 MG TAB FEEDTUBE SCH ×2 (09:43→22:37)
[2021-12-25] MEDS: LANSOPRAZOLE 30 MG SOLUTAB FEEDTUBE SCH (09:43)
[2021-12-25] MEDS: MIDODRINE 5 MG TAB FEEDTUBE SCH ×3 (09:43→16:51)
--- NOTE | 2021-12-25 11:13 | Progress Note ---
<JONNATHAN TATUM - Last Filed: 12/25/21 17:29> Assessment and Plan Assessment and plan: This is a 66-year-old female with known past medical history of ESRD on HD, HTN, heart-attack, and GERD initially admitted to the floor s/p fall at home. Patient was transferred to the ICU due to septic shock /2 GPC bacteremia requiring vasopressor. Hospital Course to Date: 12/12: No acute events overnight, reports extreme pain in her right leg, denies chest pain or shortness of breath 12/13: No acute events overnight, patient tearful and complaining of right leg pain however she is refusing analgesic medication 12/14: Continues to have right leg pain, does not participate in interview 12/15: Patient transferred to the ICU for hypotension on Levophed drip however she was weaned off by morning and midodrine was increased due to borderline MAP. Blood cultures grew 11/17 gram-positive cocci with suspected right upper chest permacath source. Patient started on vancomycin and infectious disease consu lted. Plan for IR consult for permacath removal and assessment of aVF functioning. Possible temporary Vas-Cath placement for hemodialysis. Patient is encephalopathic likely secondary to sepsis. Continue current antibiotics and repeat 2D echo and blood cultures in the a.m. Right upper extremity swelling and pain noted and right upper extremity XR and Doppler ordered. 12/16: Patient noted to have blisters on left arm and RN asked to elevate and place cool compresses to site. AV fistula on left upper extremity access by hemodialysis nurse and hemodialysis ongoing. Vasopressin ordered in efforts to wean Levophed while on hemodialysis. Echocardiogram repeated. Blood cultures grew beta-hemolytic strep group B and antibiotics changed to ceftriaxone. Dobutamine drip discontinued. Remained sedated on fentanyl drip. 12/17: Thrombocytopenia worse today, unable to tolerate being off vasopressin, started on steroids, HIT assay ordered-discontinued. SCDs for now. [facility] will like to give normal saline 100 ml/hr for 2 L. 12/18: Wound care consult placed for right upper extremity, PSV trials today, weaning Levophed, dialysis planned for today. Hematology/oncology consulted yesterday who recommends twice daily Solu-Medrol. No acute events reported overnight. Patient will be started on IV iron 12/19: PSV today, mentation better and intermittently follows commands. Platelets stable. Reglan started for vomiting and will slowly increase TF. KUB with no acute process. 12/20: PSV today, mentation unchanged, CTH without acute findings, Platelets remains stable with no signs of bleeding, high residuals reported overnight and TF was off from approximately [id number]. TF resumed around 0400 at currently at 20/hr. RN to increase as tolerated. [facility] plans extubation Wednesday. HD today. Will keep femoral line for now in setting of low plts 12/21: Patient had moderate BM today with bright red and dark red blood->CBC pending, coags, LDH ordered, GI consulted and Dr. Lambert alerted. PSV again today. Patient is still intermittently following commands. 12/22: Remains on the vent, more somnolent this am. Patient also with persistent bloody stools, H&H remains stable, GI is also following. Will keep patient NPO for now, IV PPI, and serial H&H. Patient is tolerating PSV trial, However, intubation postpone due to increased lethargy and GIB. Awaiting on GI recommendations. 12/23: With persistent rectal bleeding, H&H and vital signs remain stable. GI is on the case, plan for possible colonoscopy tomorrow. Keep patient NPO, continue IV PPI and serial H&H. Hypoglycemic overnight, most likely due to NPO status, continue D10W for now. D/W CCM continue PSV trial, possible extubation tomorrow. Continue HD per Nephro 12/24: Post colonoscopy at the bedside this am. Patient stable on thevent but l ethargic. GI recommendations appreciated. Will resume TF, continue PPI and trend H&H X1 day. Leukocytosis improved this am, stool studies pending, Continue current IV antibiotics per ID. Plan for possible PSV trial today once more awake, possible extubation if patient tolerate PSV trial. 12/25: s/p extubation now stable on 3L NC. Post colonoscopy, still with blood tinge losse stools, stool studies pending. Continue current IV antiobiotics per ID. S/p 1unit of PRBCs, H&H is stable this am, thrombocytopenia improved. Continue to hold AC, trend CBC, and PPI. Consult placed to general surgery for RUE wound eval and management, wound care consult pending. D/w CCM, patient is stable for transfer to Telemetry. Assessment and Plan #Septic Shock 09/17 #GPC Bacteremia #Severe Colitis #Leukocytosis - Suspected source right upper chest Permacath, removed on 12/15 - Intial Blood cultures + beta-hemolytic strep group B in 4/4 bottles, repeat B.Cultures with NGTD - Echo with no evidence of vegetation - With persistent leukocytosis, afebrile - Severe colitis throughout the entire colon noted from colonoscopy on 12/24 - Stool studies pending - ID on consult, appreciated recommendations - Continue current IV Abx, Rocephin, per ID - Continue to F/U on B.cult - Daily CBC monitor #Heart Failure with Reduced Ejection Fraction #Severe Cardiomyopathy #NSTEMI #H/o Hypertension #History of CAD - Cardiology consulted, assistance appreciated - went in septic shock 09/17 bacteremia- s/p dobutamine and vaspressors - Echocardiogram 11/23: EF 35-40% - Repeat Echo this admit shows LVEF 30 to 35%, no valvular vegetations - Continue statin, ASA held due to GIB - midodrine adjusted and parameters added - Continue blood pressure monitor per protocol - Maintain MAP above 65 - Strick I&Os and daily weight #Acute Metabolic Encephalopathy #h/o seizure disorder and 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 #S/p Fall at home - most likely due to severe sepsis - CT head with no acute intracranial process - Imagings with no evidence of fractures or any acute findings - On the vent, not on any sedations, but lethargic - Continue current IV abx per ID - Frequent reorientation - Avoid benzodiazepine to reduce the possibility of delirium - Prn analgesia for pain management - Maintenance of sleep-wake cycle - Aspiration/seizure precautions - Continue fall precautions - Physical therapy eval ordered #Acute on Chronic Hypoxic Respiratory Failure - most likely due to fluid overload/sepsis shock - Decompensated on 12/15 was emergently intubated - Extubated on 12/24, now stable on 3L NC - CCM consulted, appreciate recommendations - Aspiration precaution HOB above 30 - Continue O2 supplementation and SPO2 monitoring for SPO2 goal above 92% #ESRD (End Stage Renal Disease) on HD - Nephrology on consult, appreciated recommendation - BRICE AV-fistula is functioning, patient tolerating HD - Continue HD per Nephro - Strict intake and output - Avoid nephrotoxic medications; Renally dose medications - Monitor and replace electrolytes as needed #Extravasation of RUE #Sacral Wounds - RUE extravasation of RUE- possibly levophed- Antidote not available - RUE doppler negative DVT - WOCN consult pending - General Surgery consulted for wound eval and management - PRN analgesia for pain management #Normocytic Anemia, chronic #Thrombocytopenia-improved #Acute GI Bleed - Acute bloody stools since 12/21, probably due to low plt - H&H remains stable, Platelet count is improving - s/p 2units of FFP and 1unit of PRBCs - HIT panel negative - GI on consult, appreciated recommendations - 12/24- s/p Colonoscopy- diffuse severe colitis throughout the entire colon with erythema and edema and nodularity probably due to infectious or ischemic etiology - stool studies ordered to rule out infectious etiologies - Tolerating TF, still with bloody tinge loose stools - continue PPI and trend CBC - Continue to hold AC for now - Hematology is also following - Continue to monitor for s/s of any active bleeding - Transfuse 1 unit of plts whenever plt count <20 - Transfuse for hemoglobin less than 7 #Type 2 Diabetes Mellitus # Multi-nodular thyroid gland - Episode of hypoglycemia, most likely due to NPO status - Tolerating TF, continue enteral nutrition for now - Speech swallow eval ordered - Continue BG check and SSI Q6hrs - Continue Hypoglycemic Protocol - Avoid Hypoglycemia - Multinodular thyroid gland noted on CT head - Possible thyroid US when more stable vs outpatient #GI/DVT Prophylaxis - PPI- IV Protonix - SCDs to bilateral lower extremities while in bed The high probability of a clinically significant, sudden or life threatening deterioration of the [multiple] system(s) required my full and direct attention, intervention and personal management. The aggregate critical care time was [60] minutes. This time is in addition to time spent performing reported procedures but includes the following: [x] Data Review and interpretation [x] Patient assessment and monitoring of vital signs [x] Documentation [x] Medication orders and management Disposition Plan: ICU Total Time Spent with Patient (Minutes): 60 History Interval history: Patient seen and examined at the bedside. S/p extubation, now stable on 3L NC SPO2 above 95%. Patient is awake but confused, easily reoriented. Loose blood tinge stools noted from rectal tube this am. Patient is s/p 1unit of PRBCs, H&H is stable this am. Otherwise no significant event overnight Hospitalist Physical - Constitutional Vitals: Temp Pulse Resp BP Pulse Ox 99.6 F 97 H 21 112/65 98 12/25/21 07:24 12/25/21 10:00 12/25/21 10:00 12/25/21 10:00 12/25/21 10:00 General appearance: Present: no acute distress, obese - EENT Eyes: Present: PERRL ENT: hearing intact - Neck Neck: Present: normal ROM - Respiratory Respiratory effort: normal Respiratory: bilateral: diminished - Cardiovascular Rhythm: regular Heart Sounds: Present: S1 & S2 - Extremities Extremities: pulses intact, pulses symmetrical, abnormal ((RUE extravasation)) Extremity abnormal: edema - Peripheral Assessment Bilateral Upper Extremity Edema Type: Pitting Edema Degree: 3+ Capillary Refill: < 3 seconds Skin Temperature: Warm Peripheral Pulses: within normal limits - Abdominal General gastrointestinal: soft, non-distended, normal bowel sounds - Integumentary Integumentary: Present: warm ((RUE extravasation)) - Psychiatric Psychiatric: appropriate mood/affect, cooperative, other (Confused, easily reoriented) - Neurologic Neurologic: moves all extremities (Limited range motion RUE), other (Awake but confused, easily reoriented) - Allied Health Allied health notes reviewed: nursing, case management HEART Score - HEART Score Troponin: Troponin T 0.175 ng/mL (0.00-0.029) H* 12/12/21 04:43 Results - Labs CBC & Chem 7: 12/25/21 05:12 12/25/21 05:12 Labs: Laboratory Last Values WBC 17.4 K/mm3 (4.5-11.0) H 12/25/21 05:12 RBC 3.10 M/mm3 (3.65-5.03) L 12/25/21 05:12 Hgb 8.3 gm/dl (10.1-14.3) L 12/25/21 05:12 Hct 24.7 % (30.3-42.9) L 12/25/21 05:12 MCV 80 fl (79-97) 12/25/21 05:12 MCH 27 pg (28-32) L 12/25/21 05:12 MCHC 34 % (30-34) 12/25/21 05:12 RDW 17.7 % (13.2-15.2) H 12/25/21 05:12 Plt Count 105 K/mm3 (140-440) L 12/25/21 05:12 Lymph % (Auto) 5.9 % (13.4-35.0) L 12/17/21 04:00 [place] % (Auto) 4.6 % (0.0-7.3) 12/17/21 04:00 Eos % (Auto) 0.4 % (0.0-4.3) 12/17/21 04:00 Baso % (Auto) 0.8 % (0.0-1.8) 12/17/21 04:00 Lymph # (Auto) 0.7 K/mm3 (1.2-5.4) L 12/17/21 04:00 [place] # (Auto) 0.6 K/mm3 (0.0-0.8) 12/17/21 04:00 Eos # (Auto) 0.0 K/mm3 (0.0-0.4) 12/17/21 04:00 Baso # (Auto) 0.1 K/mm3 (0.0-0.1) 12/17/21 04:00 Add Manual Diff Complete 12/18/21 05:00 Total Counted 100 12/19/21 05:00 Seg Neutrophils % Criminal Legal Assistant 12/19/21 05:00 Seg Neuts % (Manual) 93.0 % (40.0-70.0) H 12/19/21 05:00 Band Neutrophils % 2.0 % 12/19/21 05:00 Lymphocytes % (Manual) 2.0 % (13.4-35.0) L 12/19/21 05:00 Reactive Lymphs % (Man) 0 % 12/19/21 05:00 Monocytes % (Manual) 1.0 % (0.0-7.3) 12/19/21 05:00 Eosinophils % (Manual) 0 % (0.0-4.3) 12/19/21 05:00 Basophils % (Manual) 0 % (0.0-1.8) 12/19/21 05:00 Metamyelocytes % 2.0 % 12/19/21 05:00 Myelocytes % 0 % 12/19/21 05:00 Promyelocytes % 0 % 12/19/21 05:00 Blast Cells % 0 % 12/19/21 05:00 Nucleated RBC % Not Reportable 12/19/21 05:00 Seg Neutrophils # 10.9 K/mm3 (1.8-7.7) H 12/17/21 04:00 Seg Neutrophils # Man 17.6 K/mm3 (1.8-7.7) H 12/19/21 05:00 Band Neutrophils # 0.4 K/mm3 12/19/21 05:00 Lymphocytes # (Manual) 0.4 K/mm3 (1.2-5.4) L 12/19/21 05:00 Abs React Lymphs (Man) 0.0 K/mm3 12/19/21 05:00 Monocytes # (Manual) 0.2 K/mm3 (0.0-0.8) 12/19/21 05:00 Eosinophils # (Manual) 0.0 K/mm3 (0.0-0.4) 12/19/21 05:00 Basophils # (Manual) 0.0 K/mm3 (0.0-0.1) 12/19/21 05:00 Metamyelocytes # 0.4 K/mm3 12/19/21 05:00 Myelocytes # 0.0 K/mm3 12/19/21 05:00 Promyelocytes # 0.0 K/mm3 12/19/21 05:00 Blast Cells # 0.0 K/mm3 12/19/21 05:00 WBC Morphology Not Reportable 12/19/21 05:00 Hypersegmented Neuts Not Reportable 12/19/21 05:00 Hyposegmented Neuts 1+ 12/19/21 05:00 Hypogranular Neuts Not Reportable 12/19/21 05:00 Smudge Cells Not Reportable 12/19/21 05:00 Toxic Granulation Not Reportable 12/19/21 05:00 Toxic Vacuolation Not Reportable 12/19/21 05:00 Dohle Bodies Not Reportable 12/19/21 05:00 Pelger-Huet Anomaly Not Reportable 12/19/21 05:00 Charles Rods Not Reportable 12/19/21 05:00 Platelet Estimate Consistent w auto 12/19/21 05:00 Clumped Platelets Not Reportable 12/19/21 05:00 Plt Clumps, EDTA Not Reportable 12/19/21 05:00 Large Platelets Not Reportable 12/19/21 05:00 Giant Platelets Not Reportable 12/19/21 05:00 Platelet Satelliting Not Reportable 12/19/21 05:00 Plt Morphology Comment Not Reportable 12/19/21 05:00 RBC Morphology Not Reportable 12/19/21 05:00 Dimorphic RBCs Not Reportable 12/19/21 05:00 Polychromasia Not Reportable 12/19/21 05:00 Hypochromasia 1+ 12/19/21 05:00 Poikilocytosis Few 12/19/21 05:00 Anisocytosis Few 12/19/21 05:00 Microcytosis Not Reportable 12/19/21 05:00 Macrocytosis Not Reportable 12/19/21 05:00 Spherocytes Not Reportable 12/19/21 05:00 Pappenheimer Bodies Not Reportable 12/19/21 05:00 Sickle Cells Not Reportable 12/19/21 05:00 Target Cells Rare 12/19/21 05:00 Tear Drop Cells Not Reportable 12/19/21 05:00 Ovalocytes Rare 12/19/21 05:00 Helmet Cells Not Reportable 12/19/21 05:00 Murphy-Granton Bodies Not Reportable 12/19/21 05:00 [place] Rings Not Reportable 12/19/21 05:00 Narrows Cells Not Reportable 12/19/21 05:00 Bite Cells Not Reportable 12/19/21 05:00 Crenated Cell Not Reportable 12/19/21 05:00 Elliptocytes Not Reportable 12/19/21 05:00 Acanthocytes (Spur) Not Reportable 12/19/21 05:00 Rouleaux Rare 12/19/21 05:00 Hemoglobin C Crystals Not Reportable 12/19/21 05:00 Schistocytes Rare 12/19/21 05:00 Malaria parasites Not Reportable 12/19/21 05:00 Percent Retic 0.37 % (0.78-2.58) L 12/18/21 05:00 Bryson Bodies Not Reportable 12/19/21 05:00 Haptoglobin 193 mg/dL (43-212) 12/18/21 05:00 Hem Pathologist Commnt Not Reportable 12/19/21 05:00 PT 17.7 Sec. (12.2-14.9) H 12/22/21 14:05 INR 1.30 (0.87-1.13) H 12/22/21 14:05 Fibrinogen 351 mg/dl (211-480) 12/21/21 08:35 Heparin Anti-Xa, Unfract Negative (Negative) 12/17/21 09:30 ABG pH 7.450 pH Units (7.350-7.450) 12/24/21 Unknown POC ABG pCO2 36.0 mmHg (32.0-48.0) 12/21/21 10:20 ABG pCO2 39.1 mm Hg 12/24/21 Unknown POC ABG pO2 126.1 mmHg (83-108) H 12/21/21 10:20 ABG pO2 109.1 mm Hg (80.0-90.0) H 12/24/21 Unknown POC ABG HCO3 24.3 12/21/21 10:20 ABG HCO3 26.6 mmol/L (20.0-26.0) H 12/24/21 Unknown ABG O2 Saturation 98.1 % (95.0-99.0) 12/24/21 Unknown ABG O2 Content 9.4 (0.0-44) 12/24/21 Unknown POC ABG Base Excess 0.6 12/21/21 10:20 ABG Base Excess 2.4 mmol/L (-2.0-3.0) 12/24/21 Unknown ABG Hemoglobin 6.8 gm/dl (12.0-16.0) L 12/24/21 Unknown ABG Oxyhemoglobin 97.4 (94-98) 12/21/21 10:20 ABG Carboxyhemoglobin 1.8 % (0.0-5.0) 12/24/21 Unknown ABG Methemoglobin 0.5 % (0.0-1.5) 12/24/21 Unknown ABG Sodium Not Reportable 12/21/21 10:20 ABG Potassium Not Reportable 12/21/21 10:20 ABG Chloride Not Reportable 12/21/21 10:20 ABG Glucose Not Reportable 12/21/21 10:20 VBG pO2 > 258.0 (25.0-47.0) H 12/15/21 19:50 Oxyhemoglobin 95.8 % (95.0-99.0) 12/24/21 Unknown Carboxyhemoglobin 0.9 (0.5-1.5) 12/21/21 10:20 FiO2 30 % 12/24/21 Unknown FiO2 % 30.0 12/21/21 10:20 Sodium 138 mmol/L (137-145) 12/25/21 05:12 Potassium 3.5 mmol/L (3.6-5.0) L 12/25/21 05:12 Chloride 99.3 mmol/L (98-107) 12/25/21 05:12 Carbon Dioxide 25 mmol/L (22-30) 12/25/21 05:12 Anion Gap 17 mmol/L 12/25/21 05:12 BUN 38 mg/dL (7-17) H 12/25/21 05:12 Creatinine 3.7 mg/dL (0.6-1.2) H 12/25/21 05:12 Estimated GFR 15 ml/min 12/25/21 05:12 BUN/Creatinine Ratio 10 % 12/25/21 05:12 Glucose 201 mg/dL (65-100) H 12/25/21 05:12 POC Glucose 174 mg/dL (70-105) H 12/24/21 23:54 Lactic Acid 1.90 mmol/L (0.7-2.0) 12/16/21 05:00 Calcium 8.0 mg/dL (8.4-10.2) L 12/25/21 05:12 Phosphorus 4.90 mg/dL (2.5-4.5) H 12/23/21 04:39 Magnesium 1.90 mg/dL (1.7-2.3) 12/23/21 04:39 Iron 13 ug/dL (37-170) L 12/18/21 05:00 TIBC 109 mcg/dL (250-450) L 12/18/21 05:00 Ferritin 383.4 ng/mL (10.0-200.0) H 12/18/21 05:00 Total Bilirubin 0.60 mg/dL (0.1-1.2) 12/11/21 15:40 AST 22 units/L (5-40) 12/11/21 15:40 ALT 13 units/L (7-56) 12/11/21 15:40 Alkaline Phosphatase 237 units/L (35-129) H 12/11/21 15:40 Lactate Dehydrogenase 249 units/L (91-180) H 12/21/21 08:35 Troponin T 0.175 ng/mL (0.00-0.029) H* 12/12/21 04:43 C-Reactive Protein 38.50 mg/dL (0.00-1.30) H 12/15/21 14:40 Total Protein 7.4 g/dL (6.3-8.2) 12/11/21 15:40 Albumin 3.6 g/dL (3.9-5) L 12/11/21 15:40 Albumin/Globulin Ratio 0.9 % 12/11/21 15:40 Triglycerides 92 mg/dL (2-149) 12/11/21 15:40 Cholesterol 72 mg/dL (50-199) 12/11/21 15:40 LDL Cholesterol Direct 16 mg/dL (50-130) L 12/11/21 15:40 HDL Cholesterol 41 mg/dL (40-59) 12/11/21 15:40 Cholesterol/HDL Ratio 1.75 % 12/11/21 15:40 Serotonin Release Assay See scanned result 12/17/21 09:30 Procalcitonin 46.16 ng/mL (<0.15) 12/15/21 04:11 Arterial Blood Glucose Not Reportable 12/21/21 10:20 Random Vancomycin 15.6 ug/mL (0-40.0) 12/16/21 05:00 Heparin-induced Plt Ab Negative (Negative) 12/17/21 09:30 UF Heparin High Dose 1 % Release 12/17/21 09:30 JAMILAH UFH Low Dose 0.1 0 % Release 12/17/21 09:30 JAMILAH UFH Low Dose 0.5 0 % Release 12/17/21 09:30 Blood Type O POSITIVE 12/23/21 16:20 Antibody Screen Negative 12/23/21 16:20 Crossmatch See Detail 12/23/21 16:20 Johnson/IV: Voiding Method Incontinent Active Medications - Current Medications Current Medications: Generic Name Dose Route Start Last Admin Trade Name Freq PRN Reason Stop Dose Admin Acetaminophen 650 mg 12/13/21 23:00 12/13/21 23:18 Acetaminophen 650 Mg Rect Supp [place] 650 mg Q4H PRN Administration Pain, Mild (1-3) Acetaminophen 650 mg 12/24/21 14:02 12/25/21 02:04 Acetaminophen 325 Mg/10.15 Ml Oral Liqd Unit Dose FEEDTUBE 650 mg Q6H PRN Administration Pain, Mild (1-3) Albuterol 2.5 mg 12/11/21 22:14 Albuterol 2.5 Mg/3 Ml Nebu IH Q6HR PRN Wheezing Albuterol/Ipratropium 1 ampul 12/14/21 08:00 12/25/21 07:17 Ipratropium/Albuterol Sulfate 3 Ml Ampul.Neb IH 1 ampul TIDRT KRISTA Administration Lipase/Protease/Amylase 1 each 12/16/21 11:15 Lipase 10,500/Protease 25,000/Amylase 43,750 (Units) Dr Blanco FEEDTUBE PRN PRN For Clogged Feeding Tube Atorvastatin Calcium 80 mg 12/15/21 22:00 12/24/21 22:00 Atorvastatin 40 Mg Tab FEEDTUBE 80 mg QHS KRISTA Administration Budesonide 0.5 mg 12/13/21 08:00 12/25/21 07:17 Budesonide 0.5 Mg/2 Ml Nebu IH 0.5 mg Q12HRT KRISTA Administration Dextrose 50 ml 12/11/21 22:23 12/16/21 06:24 Dextrose 50% In Water (25gm) 50 Ml Syringe IV 15 ml Q30MIN PRN Administration Hypoglycemia Protocol Hydrophilic Ointment 1 applic 12/16/21 14:30 Lip Therapy Vaseline TP Q2HR PRN Dry Lips Sodium Chloride 100 mls @ 999 mls/hr 12/12/21 12:00 Nacl 0.9% IV ABEL PRN Hypotension Ceftriaxone Sodium 2 gm in 100 mls @ 200 mls/hr 12/16/21 15:00 12/24/21 14:07 Rocephin/Ns 2 Gm/100 Ml IV 12/29/21 15:29 200 mls/hr Q24H KRISTA Administration Protocol Insulin Glargine 5 units 12/25/21 22:00 Insulin Glargine 100 Units/Ml SUB-Q QHS KRISTA Insulin Human Lispro 0 unit 12/15/21 12:00 12/25/21 06:05 Insulin Lispro 100 Unit/Ml SUB-Q 4 unit Q6HR KRISTA Administration Protocol Lansoprazole 30 mg 12/25/21 10:00 12/25/21 09:43 Lansoprazole 30 Mg Solutab FEEDTUBE 30 mg QDAY KRISTA Administration Levetiracetam 500 mg 12/16/21 18:00 12/23/21 17:32 Levetiracetam 500 Mg/5 Ml Oral Liqd FEEDTUBE 500 mg TuThSa KRISAT Administration Midodrine 5 mg 12/24/21 12:00 12/25/21 09:43 Midodrine 5 Mg Tab FEEDTUBE 5 mg TID@0800,1200,1600 KRISTA Administration Morphine Sulfate 2 mg 12/11/21 22:11 12/24/21 03:20 Morphine 4 Mg/1 Ml Inj IV 2 mg Q5MIN PRN Administration Chest Pain unrelieved by NTG Multi-Ingred Cream/Lotion/Oil/Oint 1 applic 12/16/21 14:10 Mineral Oil/Petrolatum, White Ophth Oint 3.5 Gm OU Q4HR PRN Dry Eye(s) Nitroglycerin 0.4 mg 12/11/21 22:11 Nitroglycerin 0.4 Mg Tab Subl SL Q5M PRN Chest Pain Senna/Docusate Sodium 1 tab 12/16/21 22:00 12/25/21 09:43 Sennosides/Docusate Sodium 8.6/50 Mg Tab FEEDTUBE 1 tab BID KRISTA Administration Simple Syrup 15 ml 12/16/21 11:15 Simple Syrup 15 Ml FEEDTUBE PRN PRN Hypoglycemia Simple Syrup 30 ml 12/16/21 11:15 Simple Syrup 15 Ml FEEDTUBE PRN PRN Hypoglycemia Sodium Bicarbonate 325 mg 12/16/21 11:15 Sodium Bicarbonate 325 Mg Tab FEEDTUBE PRN PRN For Clogged Feeding Tube Sodium Chloride 10 ml 12/11/21 22:11 12/24/21 09:24 Sodium Chloride 0.9% 10 Ml Flush Syringe IV 10 ml PRN PRN Administration LINE FLUSH Nutrition/Malnutrition Assess - Dietary Evaluation Nutrition/Malnutrition Findings: Nutrition Notes Start: 12/12/21 11:57 Freq: Status: Active Protocol: Document 12/24/21 17:36 EVERARDO (Rec: 12/24/21 17:55 EVERARDO [id number]) Nutrition Notes Initial or Follow up Brief Note Current Diagnosis CKD (stage V CKD),Coronary Artery Disease,Sepsis, Hypertension,Heart Failure, Respiratory Failure Other Pertinent Diagnosis Colitis, Bacteremia, ESRD+HD, Septic Shock, Thrombocytopenia , Anemia,... Current Diet TF-Nepro w/CARBSTEADY @ 30 ml/ hr (from L 12/24). Height 4 ft 11 in Weight 61.9 kg [place] Body Weight (kg) 43.18 BMI 27.6 Weight change and time frame No body weight change in 2 days reported. Weight Status Overweight Subjective/Other Information RD consult for TF continuation . TF resumed on L 12/24. Pt continues on Mechanical ventilation, O2 saturation @ 98%, according to MV notes. Percent of energy/protein needs met: Prescribed TF-Nepro w/ CARBSTEADY @ 30 ml/hr provides for energy/protein needs (1, 296 Kcal/58 g) during LOS, 103 % Kcal; 82% AA. #1 Nutrition Diagnosis Inadequate oral intake Diagnosis Progress(for reassessment Continues documentation) Is patient on ventilator? Yes Is Patient Ambulatory and/or Out of Bed No REE-([place]-[facility]-confined to bed) [phone] Calculation Used for Recommendations [facility] Additional Notes Protein: >1.2 g/Kg ABW; >74 g/ day. Fluids: 1-1.5 L/day, or as per MD. Nutrition Intervention Nutrition Support: Continue TF-Nepro w/CARBSTEADY @ 30 ml/hr. Flush: 130 ml water Q 4 hr, or as per MD. Kcal 1,269 Protein (gm) 58 Carbohydrates (gm) 116 Fat (gm) 69 Fluid (mL) 523 Fiber (gm) 9 % RDI: 103% Kcal; 82% AA. Goal #1 Provide at least 75% of energy /protein needs through Enteral Feeding during LOS. Goal #2 Maintain body weight within +/ -3% of admission body weight during LOS. Follow-Up By: 12/31/21 Additional Comments Continue monitoring, Ventilation status, renal function, GI Bleed, TF tolerance and BM. <AUSTIN STARR - Last Filed: 12/26/21 07:26> Assessment and Plan Assessment and plan: I saw and evaluated the patient. I agree with the findings and the plan of care as documented in the Nurse Practitioner's~note, with the following corrections and additions. Hospitalist Physical - Constitutional Vitals: Temp Pulse Resp BP Pulse Ox 100.6 F H 103 H 18 161/60 93 12/26/21 03:52 12/26/21 03:52 12/26/21 04:00 12/26/21 03:52 12/26/21 04:00 HEART Score - HEART Score Troponin: Troponin T 0.175 ng/mL (0.00-0.029) H* 12/12/21 04:43 Results - Labs CBC & Chem 7: 12/25/21 05:12 12/25/21 05:12 Labs: Laboratory Last Values WBC 17.4 K/mm3 (4.5-11.0) H 12/25/21 05:12 RBC 3.10 M/mm3 (3.65-5.03) L 12/25/21 05:12 Hgb 8.3 gm/dl (10.1-14.3) L 12/25/21 05:12 Hct 24.7 % (30.3-42.9) L 12/25/21 05:12 MCV 80 fl (79-97) 12/25/21 05:12 MCH 27 pg (28-32) L 12/25/21 05:12 MCHC 34 % (30-34) 12/25/21 05:12 RDW 17.7 % (13.2-15.2) H 12/25/21 05:12 Plt Count 105 K/mm3 (140-440) L 12/25/21 05:12 Lymph % (Auto) 5.9 % (13.4-35.0) L 12/17/21 04:00 [place] % (Auto) 4.6 % (0.0-7.3) 12/17/21 04:00 Eos % (Auto) 0.4 % (0.0-4.3) 12/17/21 04:00 Baso % (Auto) 0.8 % (0.0-1.8) 12/17/21 04:00 Lymph # (Auto) 0.7 K/mm3 (1.2-5.4) L 12/17/21 04:00 [place] # (Auto) 0.6 K/mm3 (0.0-0.8) 12/17/21 04:00 Eos # (Auto) 0.0 K/mm3 (0.0-0.4) 12/17/21 04:00 Baso # (Auto) 0.1 K/mm3 (0.0-0.1) 12/17/21 04:00 Add Manual Diff Complete 12/18/21 05:00 Total Counted 100 12/19/21 05:00 Seg Neutrophils % Criminal Legal Assistant 12/19/21 05:00 Seg Neuts % (Manual) 93.0 % (40.0-70.0) H 12/19/21 05:00 Band Neutrophils % 2.0 % 12/19/21 05:00 Lymphocytes % (Manual) 2.0 % (13.4-35.0) L 12/19/21 05:00 Reactive Lymphs % (Man) 0 % 12/19/21 05:00 Monocytes % (Manual) 1.0 % (0.0-7.3) 12/19/21 05:00 Eosinophils % (Manual) 0 % (0.0-4.3) 12/19/21 05:00 Basophils % (Manual) 0 % (0.0-1.8) 12/19/21 05:00 Metamyelocytes % 2.0 % 12/19/21 05:00 Myelocytes % 0 % 12/19/21 05:00 Promyelocytes % 0 % 12/19/21 05:00 Blast Cells % 0 % 12/19/21 05:00 Nucleated RBC % Not Reportable 12/19/21 05:00 Seg Neutrophils # 10.9 K/mm3 (1.8-7.7) H 12/17/21 04:00 Seg Neutrophils # Man 17.6 K/mm3 (1.8-7.7) H 12/19/21 05:00 Band Neutrophils # 0.4 K/mm3 12/19/21 05:00 Lymphocytes # (Manual) 0.4 K/mm3 (1.2-5.4) L 12/19/21 05:00 Abs React Lymphs (Man) 0.0 K/mm3 12/19/21 05:00 Monocytes # (Manual) 0.2 K/mm3 (0.0-0.8) 12/19/21 05:00 Eosinophils # (Manual) 0.0 K/mm3 (0.0-0.4) 12/19/21 05:00 Basophils # (Manual) 0.0 K/mm3 (0.0-0.1) 12/19/21 05:00 Metamyelocytes # 0.4 K/mm3 12/19/21 05:00 Myelocytes # 0.0 K/mm3 12/19/21 05:00 Promyelocytes # 0.0 K/mm3 12/19/21 05:00 Blast Cells # 0.0 K/mm3 12/19/21 05:00 WBC Morphology Not Reportable 12/19/21 05:00 Hypersegmented Neuts Not Reportable 12/19/21 05:00 Hyposegmented Neuts 1+ 12/19/21 05:00 Hypogranular Neuts Not Reportable 12/19/21 05:00 Smudge Cells Not Reportable 12/19/21 05:00 Toxic Granulation Not Reportable 12/19/21 05:00 Toxic Vacuolation Not Reportable 12/19/21 05:00 Dohle Bodies Not Reportable 12/19/21 05:00 Pelger-Huet Anomaly Not Reportable 12/19/21 05:00 Charles Rods Not Reportable 12/19/21 05:00 Platelet Estimate Consistent w auto 12/19/21 05:00 Clumped Platelets Not Reportable 12/19/21 05:00 Plt Clumps, EDTA Not Reportable 12/19/21 05:00 Large Platelets Not Reportable 12/19/21 05:00 Giant Platelets Not Reportable 12/19/21 05:00 Platelet Satelliting Not Reportable 12/19/21 05:00 Plt Morphology Comment Not Reportable 12/19/21 05:00 RBC Morphology Not Reportable 12/19/21 05:00 Dimorphic RBCs Not Reportable 12/19/21 05:00 Polychromasia Not Reportable 12/19/21 05:00 Hypochromasia 1+ 12/19/21 05:00 Poikilocytosis Few 12/19/21 05:00 Anisocytosis Few 12/19/21 05:00 Microcytosis Not Reportable 12/19/21 05:00 Macrocytosis Not Reportable 12/19/21 05:00 Spherocytes Not Reportable 12/19/21 05:00 Pappenheimer Bodies Not Reportable 12/19/21 05:00 Sickle Cells Not Reportable 12/19/21 05:00 Target Cells Rare 12/19/21 05:00 Tear Drop Cells Not Reportable 12/19/21 05:00 Ovalocytes Rare 12/19/21 05:00 Helmet Cells Not Reportable 12/19/21 05:00 Murphy-Granton Bodies Not Reportable 12/19/21 05:00 [place] Rings Not Reportable 12/19/21 05:00 Narrows Cells Not Reportable 12/19/21 05:00 Bite Cells Not Reportable 12/19/21 05:00 Crenated Cell Not Reportable 12/19/21 05:00 Elliptocytes Not Reportable 12/19/21 05:00 Acanthocytes (Spur) Not Reportable 12/19/21 05:00 Rouleaux Rare 12/19/21 05:00 Hemoglobin C Crystals Not Reportable 12/19/21 05:00 Schistocytes Rare 12/19/21 05:00 Malaria parasites Not Reportable 12/19/21 05:00 Percent Retic 0.37 % (0.78-2.58) L 12/18/21 05:00 Bryson Bodies Not Reportable 12/19/21 05:00 Haptoglobin 193 mg/dL (43-212) 12/18/21 05:00 Hem Pathologist Commnt Not Reportable 12/19/21 05:00 PT 17.7 Sec. (12.2-14.9) H 12/22/21 14:05 INR 1.30 (0.87-1.13) H 12/22/21 14:05 Fibrinogen 351 mg/dl (211-480) 12/21/21 08:35 Heparin Anti-Xa, Unfract Negative (Negative) 12/17/21 09:30 ABG pH 7.450 pH Units (7.350-7.450) 12/24/21 Unknown POC ABG pCO2 36.0 mmHg (32.0-48.0) 12/21/21 10:20 ABG pCO2 39.1 mm Hg 12/24/21 Unknown POC ABG pO2 126.1 mmHg (83-108) H 12/21/21 10:20 ABG pO2 109.1 mm Hg (80.0-90.0) H 12/24/21 Unknown POC ABG HCO3 24.3 12/21/21 10:20 ABG HCO3 26.6 mmol/L (20.0-26.0) H 12/24/21 Unknown ABG O2 Saturation 98.1 % (95.0-99.0) 12/24/21 Unknown ABG O2 Content 9.4 (0.0-44) 12/24/21 Unknown POC ABG Base Excess 0.6 12/21/21 10:20 ABG Base Excess 2.4 mmol/L (-2.0-3.0) 12/24/21 Unknown ABG Hemoglobin 6.8 gm/dl (12.0-16.0) L 12/24/21 Unknown ABG Oxyhemoglobin 97.4 (94-98) 12/21/21 10:20 ABG Carboxyhemoglobin 1.8 % (0.0-5.0) 12/24/21 Unknown ABG Methemoglobin 0.5 % (0.0-1.5) 12/24/21 Unknown ABG Sodium Not Reportable 12/21/21 10:20 ABG Potassium Not Reportable 12/21/21 10:20 ABG Chloride Not Reportable 12/21/21 10:20 ABG Glucose Not Reportable 12/21/21 10:20 VBG pO2 > 258.0 (25.0-47.0) H 12/15/21 19:50 Oxyhemoglobin 95.8 % (95.0-99.0) 12/24/21 Unknown Carboxyhemoglobin 0.9 (0.5-1.5) 12/21/21 10:20 FiO2 30 % 12/24/21 Unknown FiO2 % 30.0 12/21/21 10:20 Sodium 138 mmol/L (137-145) 12/25/21 05:12 Potassium 3.5 mmol/L (3.6-5.0) L 12/25/21 05:12 Chloride 99.3 mmol/L (98-107) 12/25/21 05:12 Carbon Dioxide 25 mmol/L (22-30) 12/25/21 05:12 Anion Gap 17 mmol/L 12/25/21 05:12 BUN 38 mg/dL (7-17) H 12/25/21 05:12 Creatinine 3.7 mg/dL (0.6-1.2) H 12/25/21 05:12 Estimated GFR 15 ml/min 12/25/21 05:12 BUN/Creatinine Ratio 10 % 12/25/21 05:12 Glucose 201 mg/dL (65-100) H 12/25/21 05:12 POC Glucose 80 mg/dL (70-105) 12/26/21 06:10 Lactic Acid 1.90 mmol/L (0.7-2.0) 12/16/21 05:00 Calcium 8.0 mg/dL (8.4-10.2) L 12/25/21 05:12 Phosphorus 4.90 mg/dL (2.5-4.5) H 12/23/21 04:39 Magnesium 1.90 mg/dL (1.7-2.3) 12/23/21 04:39 Iron 13 ug/dL (37-170) L 12/18/21 05:00 TIBC 109 mcg/dL (250-450) L 12/18/21 05:00 Ferritin 383.4 ng/mL (10.0-200.0) H 12/18/21 05:00 Total Bilirubin 0.60 mg/dL (0.1-1.2) 12/11/21 15:40 AST 22 units/L (5-40) 12/11/21 15:40 ALT 13 units/L (7-56) 12/11/21 15:40 Alkaline Phosphatase 237 units/L (35-129) H 12/11/21 15:40 Lactate Dehydrogenase 249 units/L (91-180) H 12/21/21 08:35 Troponin T 0.175 ng/mL (0.00-0.029) H* 12/12/21 04:43 C-Reactive Protein 38.50 mg/dL (0.00-1.30) H 12/15/21 14:40 Total Protein 7.4 g/dL (6.3-8.2) 12/11/21 15:40 Albumin 3.6 g/dL (3.9-5) L 12/11/21 15:40 Albumin/Globulin Ratio 0.9 % 12/11/21 15:40 Triglycerides 92 mg/dL (2-149) 12/11/21 15:40 Cholesterol 72 mg/dL (50-199) 12/11/21 15:40 LDL Cholesterol Direct 16 mg/dL (50-130) L 12/11/21 15:40 HDL Cholesterol 41 mg/dL (40-59) 12/11/21 15:40 Cholesterol/HDL Ratio 1.75 % 12/11/21 15:40 Serotonin Release Assay See scanned result 12/17/21 09:30 Procalcitonin 46.16 ng/mL (<0.15) 12/15/21 04:11 Arterial Blood Glucose Not Reportable 12/21/21 10:20 Random Vancomycin 15.6 ug/mL (0-40.0) 12/16/21 05:00 Heparin-induced Plt Ab Negative (Negative) 12/17/21 09:30 UF Heparin High Dose 1 % Release 12/17/21 09:30 JAMILAH UFH Low Dose 0.1 0 % Release 12/17/21 09:30 JAMILAH UFH Low Dose 0.5 0 % Release 12/17/21 09:30 Blood Type O POSITIVE 12/23/21 16:20 Antibody Screen Negative 12/23/21 16:20 Crossmatch See Detail 12/23/21 16:20 Johnson/IV: Voiding Method Incontinent Active Medications - Current Medications Current Medications: Generic Name Dose Route Start Last Admin Trade Name Freq PRN Reason Stop Dose Admin Acetaminophen 650 mg 12/13/21 23:00 12/13/21 23:18 Acetaminophen 650 Mg Rect Supp [place] 650 mg Q4H PRN Administration Pain, Mild (1-3) Acetaminophen 650 mg 12/24/21 14:02 12/25/21 17:05 Acetaminophen 325 Mg/10.15 Ml Oral Liqd Unit Dose FEEDTUBE 650 mg Q6H PRN Administration Pain, Mild (1-3) Albuterol 2.5 mg 12/11/21 22:14 Albuterol 2.5 Mg/3 Ml Nebu IH Q6HR PRN Wheezing Albuterol/Ipratropium 1 ampul 12/14/21 08:00 12/25/21 20:10 Ipratropium/Albuterol Sulfate 3 Ml Ampul.Neb IH 1 ampul TIDRT KRISTA Administration Lipase/Protease/Amylase 1 each 12/16/21 11:15 Lipase 10,500/Protease 25,000/Amylase 43,750 (Units) Dr Blanco FEEDTUBE PRN PRN For Clogged Feeding Tube Atorvastatin Calcium 80 mg 12/15/21 22:00 12/25/21 22:38 Atorvastatin 40 Mg Tab FEEDTUBE 80 mg QHS KRISTA Administration Budesonide 0.5 mg 12/13/21 08:00 12/25/21 20:10 Budesonide 0.5 Mg/2 Ml Nebu IH 0.5 mg Q12HRT KRISTA Administration Dextrose 50 ml 12/11/21 22:23 12/16/21 06:24 Dextrose 50% In Water (25gm) 50 Ml Syringe IV 15 ml Q30MIN PRN Administration Hypoglycemia Protocol Haloperidol Lactate 2.5 mg 12/25/21 11:37 Haloperidol Lactate 5 Mg/1 Ml Inj IV Q6H PRN Agitation Hydrophilic Ointment 1 applic 12/16/21 14:30 Lip Therapy Vaseline TP Q2HR PRN Dry Lips Sodium Chloride 100 mls @ 999 mls/hr 12/12/21 12:00 Nacl 0.9% IV ABEL PRN Hypotension Ceftriaxone Sodium 2 gm in 100 mls @ 200 mls/hr 12/16/21 15:00 12/25/21 15:00 Rocephin/Ns 2 Gm/100 Ml IV 12/29/21 15:29 200 mls/hr Q24H KRISTA Administration Protocol Insulin Glargine 5 units 12/25/21 22:00 12/25/21 22:38 Insulin Glargine 100 Units/Ml SUB-Q 5 units QHS KRISTA Administration Insulin Human Lispro 0 unit 12/15/21 12:00 12/26/21 06:20 Insulin Lispro 100 Unit/Ml SUB-Q Not Given Q6HR [facility] Protocol Lansoprazole 30 mg 12/25/21 10:00 12/25/21 09:43 Lansoprazole 30 Mg Solutab FEEDTUBE 30 mg QDAY KRISTA Administration Levetiracetam 500 mg 12/16/21 18:00 12/25/21 22:38 Levetiracetam 500 Mg/5 Ml Oral Liqd FEEDTUBE 500 mg TuThSa KRISTA Administration Midodrine 5 mg 12/24/21 12:00 12/25/21 16:51 Midodrine 5 Mg Tab FEEDTUBE 5 mg TID@0800,1200,1600 KRISTA Administration Multi-Ingred Cream/Lotion/Oil/Oint 1 applic 12/16/21 14:10 Mineral Oil/Petrolatum, White Ophth Oint 3.5 Gm OU Q4HR PRN Dry Eye(s) Nitroglycerin 0.4 mg 12/11/21 22:11 Nitroglycerin 0.4 Mg Tab Subl SL Q5M PRN Chest Pain Senna/Docusate Sodium 1 tab 12/16/21 22:00 12/25/21 22:37 Sennosides/Docusate Sodium 8.6/50 Mg Tab FEEDTUBE 1 tab BID KRISTA Administration Simple Syrup 15 ml 12/16/21 11:15 Simple Syrup 15 Ml FEEDTUBE PRN PRN Hypoglycemia Simple Syrup 30 ml 12/16/21 11:15 Simple Syrup 15 Ml FEEDTUBE PRN PRN Hypoglycemia Sodium Bicarbonate 325 mg 12/16/21 11:15 Sodium Bicarbonate 325 Mg Tab FEEDTUBE PRN PRN For Clogged Feeding Tube Sodium Chloride 10 ml 12/11/21 22:11 12/24/21 09:24 Sodium Chloride 0.9% 10 Ml Flush Syringe IV 10 ml PRN PRN Administration LINE FLUSH Vancomycin HCl 125 mg 12/25/21 15:00 12/26/21 02:11 Vancomycin 250 Mg/10 Ml Oral Liqd PO 125 mg Q6H KRISTA Administration Protocol Nutrition/Malnutrition Assess - Dietary Evaluation Nutrition/Malnutrition Findings: Nutrition Notes Start: 12/12/21 1 1:57 Freq: Status: Active Protocol: Document 12/24/21 17:36 EVERARDO (Rec: 12/24/21 17:55 EVERARDO [id number]) Nutrition Notes Initial or Follow up Brief Note Current Diagnosis CKD (stage V CKD),Coronary Artery Disease,Sepsis, Hypertension,Heart Failure, Respiratory Failure Other Pertinent Diagnosis Colitis, Bacteremia, ESRD+HD, Septic Shock, Thrombocytopenia , Anemia,... Current Diet TF-Nepro w/CARBSTEADY @ 30 ml/ hr (from L 12/24). Height 4 ft 11 in Weight 61.9 kg [place] Body Weight (kg) 43.18 BMI 27.6 Weight change and time frame No body weight change in 2 days reported. Weight Status Overweight Subjective/Other Information RD consult for TF continuation . TF resumed on L 12/24. Pt continues on Mechanical ventilation, O2 saturation @ 98%, according to MV notes. Percent of energy/protein needs met: Prescribed TF-Nepro w/ CARBSTEADY @ 30 ml/hr provides for energy/protein needs (1, 296 Kcal/58 g) during LOS, 103 % Kcal; 82% AA. #1 Nutrition Diagnosis Inadequate oral intake Diagnosis Progress(for reassessment Continues documentation) Is patient on ventilator? Yes Is Patient Ambulatory and/or Out of Bed No REE-([place]-confined to bed) [phone] Calculation Used for Recommendations [place] Additional Notes Protein: >1.2 g/Kg ABW; >74 g/ day. Fluids: 1-1.5 L/day, or as per MD. Nutrition Intervention Nutrition Support: Continue TF-Nepro w/CARBSTEADY @ 30 ml/hr. Flush: 130 ml water Q 4 hr, or as per MD. Kcal 1,269 Protein (gm) 58 Carbohydrates (gm) 116 Fat (gm) 69 Fluid (mL) 523 Fiber (gm) 9 % RDI: 103% Kcal; 82% AA. Goal #1 Provide at least 75% of energy /protein needs through Enteral Feeding during LOS. Goal #2 Maintain body weight within +/ -3% of admission body weight during LOS. Follow-Up By: 12/31/21 Additional Comments Continue monitoring, Ventilation status, renal function, GI Bleed, TF tolerance and BM.
[2021-12-25] MEDS ORDERED: HALOPERIDOL LACTATE 5 MG/1 ML INJ IV PRN (11:37)
--- NOTE | 2021-12-25 12:29 | Progress Note ---
Assessment and Plan - Patient Problems (1) Syncope Current Visit: Yes Status: Acute Plan to address problem: Patient with end-stage renal disease on hemodialysis, admitted with transient dizziness and sepsis, suspected source indwelling Vas-Cath. She is status post respiratory failure, has been extubated successfully. History of a moderate severity cardiomyopathy, ejection fraction 35 to 40%. We will continue conservative cardiac management with medical therapy as tolerated. Subjective Date of service: 12/25/21 Principal diagnosis: Septic shock ; Bacteremia; ESRD on dialysis; AMS; NSTEMI; HTN; DM II Interval history: Patient is now extubated, breathing comfortably on room air, mildly lethargic but is awake and following commands. 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 Objective Vital Signs Temp Pulse Pulse Pulse Resp Resp BP 12/25/21 11:35 98.9 F 12/25/21 11:00 99 H 26 H 108/62 12/25/21 10:00 97 H 21 112/65 12/25/21 09:00 95 H 20 106/65 12/25/21 08:00 76 94 H 23 101/61 12/25/21 07:24 99.6 F 12/25/21 07:17 90 18 12/25/21 07:00 95 H 22 100/54 12/25/21 06:00 93 H 20 98/57 12/25/21 05:00 98 H 22 100/60 12/25/21 04:00 94 H 94 H 23 90/56 12/25/21 03:13 98.4 F 12/25/21 03:04 17 12/25/21 03:00 88 20 97/55 12/25/21 02:04 21 12/25/21 02:00 88 23 98/55 12/25/21 01:00 87 21 94/63 12/25/21 00:05 86 23 120/77 12/25/21 00:00 98.1 F 86 86 23 120/77 12/24/21 23:50 87 22 83/48 12/24/21 23:00 91 H 16 83/48 12/24/21 22:00 89 20 89/53 12/24/21 21:15 18 12/24/21 21:00 95 H 18 88/49 12/24/21 20:26 93 H 21 95/57 12/24/21 20:20 93 H 21 184/87 05/11/22 20:16 93 H 23 184/87 12/24/21 20:15 18 12/24/21 20:10 91 H 20 184/87 12/24/21 20:06 90 20 184/87 12/24/21 20:00 95 H 91 H 18 181/87 12/24/21 19:56 88 22 181/87 12/24/21 19:50 93 H 23 181/87 12/24/21 19:46 90 19 181/87 12/24/21 19:40 86 21 181/87 12/24/21 19:36 84 22 181/87 12/24/21 19:32 99 F 12/24/21 19:30 85 18 181/87 12/24/21 19:26 82 22 181/87 12/24/21 19:20 81 22 181/87 12/24/21 19:16 80 21 181/87 12/24/21 19:12 93 H 20 12/24/21 19:00 88 24 157/68 12/24/21 18:00 85 22 157/68 12/24/21 17:50 81 19 137/58 12/24/21 17:40 80 20 137/58 12/24/21 17:30 83 19 137/58 12/24/21 17:20 84 14 137/58 12/24/21 17:10 84 22 137/58 12/24/21 17:00 84 20 137/58 12/24/21 16:30 91 H 13 134/63 12/24/21 16:20 89 19 134/63 12/24/21 16:00 99 F 91 H 20 134/63 12/24/21 15:00 88 19 161/70 12/24/21 14:22 12/24/21 14:15 12/24/21 14:00 87 81 16 18 151/68 12/24/21 13:00 93 H 14 153/67 Pulse Ox 12/25/21 11:35 12/25/21 11:00 93 12/25/21 10:00 98 12/25/21 09:00 99 12/25/21 08:00 100 12/25/21 07:24 12/25/21 07:17 100 12/25/21 07:00 100 12/25/21 06:00 100 12/25/21 05:00 100 05/12/22 04:00 100 12/25/21 03:13 12/25/21 03:04 12/25/21 03:00 100 12/25/21 02:04 12/25/21 02:00 100 12/25/21 01:00 99 12/25/21 00:05 100 12/25/21 00:00 100 12/24/21 23:50 96 12/24/21 23:00 95 12/24/21 22:00 100 12/24/21 21:15 12/24/21 21:00 100 12/24/21 20:26 100 12/24/21 20:20 97 12/24/21 20:16 87 12/24/21 20:15 12/24/21 20:10 93 12/24/21 20:06 91 12/24/21 20:00 97 12/24/21 19:56 100 12/24/21 19:50 100 12/24/21 19:46 100 12/24/21 19:40 100 12/24/21 19:36 100 12/24/21 19:32 12/24/21 19:30 100 12/24/21 19:26 100 12/24/21 19:20 90 12/24/21 19:16 86 12/24/21 19:12 97 12/24/21 19:00 94 12/24/21 18:00 98 12/24/21 17:50 100 12/24/21 17:40 100 12/24/21 17:30 90 12/24/21 17:20 81 L 12/24/21 17:10 85 12/24/21 17:00 96 12/24/21 16:30 88 12/24/21 16:20 100 12/24/21 16:00 96 12/24/21 15:00 97 12/24/21 14:22 97 12/24/21 14:15 98 12/24/21 14:00 91 12/24/21 13:00 89 - Physical Examination General: No Apparent Distress HEENT: Positive: PERRL Neck: Positive: neck supple Cardiac: Positive: Reg Rate and Rhythm Lungs: Positive: Decreased Breath Sounds Neuro: Positive: Grossly Intact Abdomen: Positive: Soft Skin: Positive: Clear Extremities: Absent: edema - Labs and Meds CBC 12/24/21 12/24/21 12/25/21 Range/Units 14:00 21:50 05:12 WBC 17.4 H (4.5-11.0) K/mm3 RBC 3.10 L (3.65-5.03) M/mm3 Hgb 7.4 L 8.8 L 8.3 L (10.1-14.3) gm/dl Hct 22.0 L 25.9 L 24.7 L (30.3-42.9) % Plt Count 105 L (140-440) K/mm3 Comprehensive Metabolic Panel 12/25/21 Range/Units 05:12 Sodium 138 (137-145) mmol/L Potassium 3.5 L (3.6-5.0) mmol/L Chloride 99.3 (98-107) mmol/L Carbon Dioxide 25 (22-30) mmol/L BUN 38 H (7-17) mg/dL Creatinine 3.7 H (0.6-1.2) mg/dL Glucose 201 H (65-100) mg/dL Calcium 8.0 L (8.4-10.2) mg/dL - Allied health notes Allied health notes reviewed: nursing
--- NOTE | 2021-12-25 13:50 | Progress Note ---
Assessment and Plan Cultures: Blood culture: group B strep Catheter tip culture: Group B strep Blood culture 12/16/2021: No growth A/P: 66-year-old female past medical history hypertension, ESRD on HD now with: #Septic shock secondary to Group B strep bacteremia: Source possibly from dialysis. Catheter since been removed. TTE without evidence of vegetations. #Diffuse severe colitis: Noted on colonoscopy. Per GI, endoscopic appearance not classic for IBD. Ischemic versus inflammatory. C. difficile PCR was ordered. #Thrombocytopenia: Probably secondary to sepsis. Hematology evaluated. #ESRD on HD: Renally dose antibiotics #Acute GI bleed, anemia #Thrombocytopenia: Stable to improving Recs: -Continue ceftriaxone 2 g every 24 hours x 2 weeks ending 12/29/2021 -Will start p.o. vancomycin, discontinue if C. difficile PCR is negative -Wound care Garcia Bowens MD, FACP, [facility] O: [phone] F: [phone] C: [phone] Subjective Date of service: 12/25/21 Principal diagnosis: Septic shock ; Bacteremia; ESRD on dialysis; AMS; NSTEMI; HTN; DM II Interval history: No fever. Having some diarrhea. C. difficile not collected due to recent GoLytely prep. Objective - Exam Narrative Exam: Physical Exam: Constitutional: Alert, cooperative. No acute distress Head, Ears, Nose: Normocephalic, atraumatic. External ears, nose normal Eyes: Conjunctivae/corneas clear. No icterus. No ptosis. Neck: Supple, no meningeal signs Oral: dentition fair, no thrush Cardiovascular: S1, S2 + Respiratory: Good air entry, clear to auscultation bilaterally GI: Soft, non-tender; bowel sounds normal. No peritoneal signs Musculoskeletal: No pedal edema, no cyanosis. Skin: No rash or abscess Hem/Lymphatic: No palpable cervical or supraclavicular nodes. No lymphangitis Psych: Mood ok. Affect normal Neurological: Awake, alert, oriented. No gross abnormality - Constitutional Vitals: Vital Signs Temp Pulse Resp BP Pulse Ox 98.9 F 99 H 26 H 108/62 93 12/25/21 11:35 12/25/21 11:00 12/25/21 11:00 12/25/21 11:00 12/25/21 11:00 Temperature -Last 24 Hours Temperature 98.9 F Temperature 99.6 F Temperature 98.4 F Temperature 98.1 F Temperature 99 F Temperature 99 F - Labs CBC & Chem 7: 12/25/21 05:12 12/25/21 05:12 Labs: Abnormal lab results 12/23/21 12/24/21 12/24/21 Range/Units 16:20 14:00 17:23 WBC (4.5-11.0) K/mm3 RBC (3.65-5.03) M/mm3 Hgb 7.4 L (10.1-14.3) gm/dl Hct 22.0 L (30.3-42.9) % MCH (28-32) pg RDW (13.2-15.2) % Plt Count (140-440) K/mm3 Potassium (3.6-5.0) mmol/L BUN (7-17) mg/dL Creatinine (0.6-1.2) mg/dL Glucose (65-100) mg/dL POC Glucose 167 H (70-105) mg/dL Calcium (8.4-10.2) mg/dL Crossmatch See Detail 12/24/21 12/24/21 12/25/21 Range/Units 21:50 23:54 05:12 WBC 17.4 H (4.5-11.0) K/mm3 RBC 3.10 L (3.65-5.03) M/mm3 Hgb 8.8 L 8.3 L (10.1-14.3) gm/dl Hct 25.9 L 24.7 L (30.3-42.9) % MCH 27 L (28-32) pg RDW 17.7 H (13.2-15.2) % Plt Count 105 L (140-440) K/mm3 Potassium (3.6-5.0) mmol/L BUN (7-17) mg/dL Creatinine (0.6-1.2) mg/dL Glucose (65-100) mg/dL POC Glucose 174 H (70-105) mg/dL Calcium (8.4-10.2) mg/dL Crossmatch 12/25/21 Range/Units 05:12 WBC (4.5-11.0) K/mm3 RBC (3.65-5.03) M/mm3 Hgb (10.1-14.3) gm/dl Hct (30.3-42.9) % MCH (28-32) pg RDW (13.2-15.2) % Plt Count (140-440) K/mm3 Potassium 3.5 L (3.6-5.0) mmol/L BUN 38 H (7-17) mg/dL Creatinine 3.7 H (0.6-1.2) mg/dL Glucose 201 H (65-100) mg/dL POC Glucose (70-105) mg/dL Calcium 8.0 L (8.4-10.2) mg/dL Crossmatch
--- NOTE | 2021-12-25 14:24 | Hem/Onc Progress Note ---
Subjective Date of service: 12/25/21 Interval history: Heme progress note Televisit via [facility] CPT 03546 Dx Thrombocytopenia 66yo female s/p fall which occurred 2 days prior to arrival. 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 found to have elevated troponin, elevated BUN/creatinine at 9.2/76, CXR showed pulmonary edema CT head/C-spine/pelvis showed no acute fracture or dislocation and x-ray L- spine/right tib-fib/fib/right femur/right hip and pelvis showed no acute fracture or dislocation. Patient decompensated /, requiring intubation. Sepsis secondary to beta- hemolytic strep group B. Platelets noted decreasing. Hematology following for thrombocytopenia. Patient extubated. Awake and alert. S/p colonoscopy which showed bleeding from colitis. 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 , improving Microcytic anemia, due to acute illness, and renal insufficiency, iron deficiency with iron sat 13% --S/p IV iron Coagulopathy, likely related to underlying sepsis, liver dysfunction Recent GI bleed, colitis PLAN: Monitor CBC Transfuse 1 unit RBC whenever hct <23 Follow hemoglobin electrophoresis Laboratory Last Values WBC 17.4 K/mm3 (4.5-11.0) H 12/25/21 05:12 RBC 3.10 M/mm3 (3.65-5.03) L 12/25/21 05:12 Hgb 8.3 gm/dl (10.1-14.3) L 12/25/21 05:12 Hct 24.7 % (30.3-42.9) L 12/25/21 05:12 MCV 80 fl (79-97) 12/25/21 05:12 MCH 27 pg (28-32) L 12/25/21 05:12 MCHC 34 % (30-34) 12/25/21 05:12 RDW 17.7 % (13.2-15.2) H 12/25/21 05:12 Plt Count 105 K/mm3 (140-440) L 12/25/21 05:12 Lymph % (Auto) 5.9 % (13.4-35.0) L 12/17/21 04:00 [place] % (Auto) 4.6 % (0.0-7.3) 12/17/21 04:00 Eos % (Auto) 0.4 % (0.0-4.3) 12/17/21 04:00 Baso % (Auto) 0.8 % (0.0-1.8) 12/17/21 04:00 Lymph # (Auto) 0.7 K/mm3 (1.2-5.4) L 12/17/21 04:00 [place] # (Auto) 0.6 K/mm3 (0.0-0.8) 12/17/21 04:00 Eos # (Auto) 0.0 K/mm3 (0.0-0.4) 12/17/21 04:00 Baso # (Auto) 0.1 K/mm3 (0.0-0.1) 12/17/21 04:00 Add Manual Diff Complete 12/18/21 05:00 Total Counted 100 12/19/21 05:00 Seg Neutrophils % Mason Foreman/Superintendant 12/19/21 05:00 Seg Neuts % (Manual) 93.0 % (40.0-70.0) H 12/19/21 05:00 Band Neutrophils % 2.0 % 12/19/21 05:00 Lymphocytes % (Manual) 2.0 % (13.4-35.0) L 12/19/21 05:00 Reactive Lymphs % (Man) 0 % 12/19/21 05:00 Monocytes % (Manual) 1.0 % (0.0-7.3) 12/19/21 05:00 Eosinophils % (Manual) 0 % (0.0-4.3) 12/19/21 05:00 Basophils % (Manual) 0 % (0.0-1.8) 12/19/21 05:00 Metamyelocytes % 2.0 % 12/19/21 05:00 Myelocytes % 0 % 12/19/21 05:00 Promyelocytes % 0 % 12/19/21 05:00 Blast Cells % 0 % 12/19/21 05:00 Nucleated RBC % Not Reportable 12/19/21 05:00 Seg Neutrophils # 10.9 K/mm3 (1.8-7.7) H 12/17/21 04:00 Seg Neutrophils # Man 17.6 K/mm3 (1.8-7.7) H 12/19/21 05:00 Band Neutrophils # 0.4 K/mm3 12/19/21 05:00 Lymphocytes # (Manual) 0.4 K/mm3 (1.2-5.4) L 12/19/21 05:00 Abs React Lymphs (Man) 0.0 K/mm3 12/19/21 05:00 Monocytes # (Manual) 0.2 K/mm3 (0.0-0.8) 12/19/21 05:00 Eosinophils # (Manual) 0.0 K/mm3 (0.0-0.4) 12/19/21 05:00 Basophils # (Manual) 0.0 K/mm3 (0.0-0.1) 12/19/21 05:00 Metamyelocytes # 0.4 K/mm3 12/19/21 05:00 Myelocytes # 0.0 K/mm3 12/19/21 05:00 Promyelocytes # 0.0 K/mm3 12/19/21 05:00 Blast Cells # 0.0 K/mm3 12/19/21 05:00 WBC Morphology Not Reportable 12/19/21 05:00 Hypersegmented Neuts Not Reportable 12/19/21 05:00 Hyposegmented Neuts 1+ 12/19/21 05:00 Hypogranular Neuts Not Reportable 12/19/21 05:00 Smudge Cells Not Reportable 12/19/21 05:00 Toxic Granulation Not Reportable 12/19/21 05:00 Toxic Vacuolation Not Reportable 12/19/21 05:00 Dohle Bodies Not Reportable 12/19/21 05:00 Pelger-Huet Anomaly Not Reportable 12/19/21 05:00 Charles Rods Not Reportable 12/19/21 05:00 Platelet Estimate Consistent w auto 12/19/21 05:00 Clumped Platelets Not Reportable 12/19/21 05:00 Plt Clumps, EDTA Not Reportable 12/19/21 05:00 Large Platelets Not Reportable 12/19/21 05:00 Giant Platelets Not Reportable 12/19/21 05:00 Platelet Satelliting Not Reportable 12/19/21 05:00 Plt Morphology Comment Not Reportable 12/19/21 05:00 RBC Morphology Not Reportable 12/19/21 05:00 Dimorphic RBCs Not Reportable 12/19/21 05:00 Polychromasia Not Reportable 12/19/21 05:00 Hypochromasia 1+ 12/19/21 05:00 Poikilocytosis Few 12/19/21 05:00 Anisocytosis Few 12/19/21 05:00 Microcytosis Not Reportable 12/19/21 05:00 Macrocytosis Not Reportable 12/19/21 05:00 Spherocytes Not Reportable 12/19/21 05:00 Pappenheimer Bodies Not Reportable 12/19/21 05:00 Sickle Cells Not Reportable 12/19/21 05:00 Target Cells Rare 12/19/21 05:00 Tear Drop Cells Not Reportable 12/19/21 05:00 Ovalocytes Rare 12/19/21 05:00 Helmet Cells Not Reportable 12/19/21 05:00 Murphy-Bonnie Bodies Not Reportable 12/19/21 05:00 [place] Rings Not Reportable 12/19/21 05:00 Gerlach Cells Not Reportable 12/19/21 05:00 Bite Cells Not Reportable 12/19/21 05:00 Crenated Cell Not Reportable 12/19/21 05:00 Elliptocytes Not Reportable 12/19/21 05:00 Acanthocytes (Spur) Not Reportable 12/19/21 05:00 Rouleaux Rare 12/19/21 05:00 Hemoglobin C Crystals Not Reportable 12/19/21 05:00 Schistocytes Rare 12/19/21 05:00 Malaria parasites Not Reportable 12/19/21 05:00 Percent Retic 0.37 % (0.78-2.58) L 12/18/21 05:00 Bryson Bodies Not Reportable 12/19/21 05:00 Haptoglobin 193 mg/dL (43-212) 12/18/21 05:00 Hem Pathologist Commnt Not Reportable 12/19/21 05:00 PT 17.7 Sec. (12.2-14.9) H 12/22/21 14:05 INR 1.30 (0.87-1.13) H 12/22/21 14:05 Fibrinogen 351 mg/dl (211-480) 12/21/21 08:35 Heparin Anti-Xa, Unfract Negative (Negative) 12/17/21 09:30 ABG pH 7.450 pH Units (7.350-7.450) 12/24/21 Unknown POC ABG pCO2 36.0 mmHg (32.0-48.0) 12/21/21 10:20 ABG pCO2 39.1 mm Hg 12/24/21 Unknown POC ABG pO2 126.1 mmHg (83-108) H 12/21/21 10:20 ABG pO2 109.1 mm Hg (80.0-90.0) H 12/24/21 Unknown POC ABG HCO3 24.3 12/21/21 10:20 ABG HCO3 26.6 mmol/L (20.0-26.0) H 12/24/21 Unknown ABG O2 Saturation 98.1 % (95.0-99.0) 12/24/21 Unknown ABG O2 Content 9.4 (0.0-44) 12/24/21 Unknown POC ABG Base Excess 0.6 12/21/21 10:20 ABG Base Excess 2.4 mmol/L (-2.0-3.0) 12/24/21 Unknown ABG Hemoglobin 6.8 gm/dl (12.0-16.0) L 12/24/21 Unknown ABG Oxyhemoglobin 97.4 (94-98) 12/21/21 10:20 ABG Carboxyhemoglobin 1.8 % (0.0-5.0) 12/24/21 Unknown ABG Methemoglobin 0.5 % (0.0-1.5) 12/24/21 Unknown ABG Sodium Not Reportable 12/21/21 10:20 ABG Potassium Not Reportable 12/21/21 10:20 ABG Chloride Not Reportable 12/21/21 10:20 ABG Glucose Not Reportable 12/21/21 10:20 VBG pO2 > 258.0 (25.0-47.0) H 12/15/21 19:50 Oxyhemoglobin 95.8 % (95.0-99.0) 12/24/21 Unknown Carboxyhemoglobin 0.9 (0.5-1.5) 12/21/21 10:20 FiO2 30 % 12/24/21 Unknown FiO2 % 30.0 12/21/21 10:20 Sodium 138 mmol/L (137-145) 12/25/21 05:12 Potassium 3.5 mmol/L (3.6-5.0) L 12/25/21 05:12 Chloride 99.3 mmol/L (98-107) 12/25/21 05:12 Carbon Dioxide 25 mmol/L (22-30) 12/25/21 05:12 Anion Gap 17 mmol/L 12/25/21 05:12 BUN 38 mg/dL (7-17) H 12/25/21 05:12 Creatinine 3.7 mg/dL (0.6-1.2) H 12/25/21 05:12 Estimated GFR 15 ml/min 12/25/21 05:12 BUN/Creatinine Ratio 10 % 12/25/21 05:12 Glucose 201 mg/dL (65-100) H 12/25/21 05:12 POC Glucose 174 mg/dL (70-105) H 12/24/21 23:54 Lactic Acid 1.90 mmol/L (0.7-2.0) 12/16/21 05:00 Calcium 8.0 mg/dL (8.4-10.2) L 12/25/21 05:12 Phosphorus 4.90 mg/dL (2.5-4.5) H 12/23/21 04:39 Magnesium 1.90 mg/dL (1.7-2.3) 12/23/21 04:39 Iron 13 ug/dL (37-170) L 12/18/21 05:00 TIBC 109 mcg/dL (250-450) L 12/18/21 05:00 Ferritin 383.4 ng/mL (10.0-200.0) H 12/18/21 05:00 Total Bilirubin 0.60 mg/dL (0.1-1.2) 12/11/21 15:40 AST 22 units/L (5-40) 12/11/21 15:40 ALT 13 units/L (7-56) 12/11/21 15:40 Alkaline Phosphatase 237 units/L (35-129) H 12/11/21 15:40 Lactate Dehydrogenase 249 units/L (91-180) H 12/21/21 08:35 Troponin T 0.175 ng/mL (0.00-0.029) H* 12/12/21 04:43 C-Reactive Protein 38.50 mg/dL (0.00-1.30) H 12/15/21 14:40 Total Protein 7.4 g/dL (6.3-8.2) 12/11/21 15:40 Albumin 3.6 g/dL (3.9-5) L 12/11/21 15:40 Albumin/Globulin Ratio 0.9 % 12/11/21 15:40 Triglycerides 92 mg/dL (2-149) 12/11/21 15:40 Cholesterol 72 mg/dL (50-199) 12/11/21 15:40 LDL Cholesterol Direct 16 mg/dL (50-130) L 12/11/21 15:40 HDL Cholesterol 41 mg/dL (40-59) 12/11/21 15:40 Cholesterol/HDL Ratio 1.75 % 12/11/21 15:40 Serotonin Release Assay See scanned result 12/17/21 09:30 Procalcitonin 46.16 ng/mL (<0.15) 12/15/21 04:11 Arterial Blood Glucose Not Reportable 12/21/21 10:20 Random Vancomycin 15.6 ug/mL (0-40.0) 12/16/21 05:00 Heparin-induced Plt Ab Negative (Negative) 12/17/21 09:30 UF Heparin High Dose 1 % Release 12/17/21 09:30 JAMILAH UFH Low Dose 0.1 0 % Release 12/17/21 09:30 JAMILAH UFH Low Dose 0.5 0 % Release 12/17/21 09:30 Blood Type O POSITIVE 12/23/21 16:20 Antibody Screen Negative 12/23/21 16:20 Crossmatch See Detail 12/23/21 16:20 Objective - Constitutional Vitals: Last Vital Signs Temp 98.9 F 12/25/21 11:35 Pulse 90 12/25/21 14:00 Resp 18 12/25/21 14:00 BP 112/66 12/25/21 13:00 Pulse Ox 99 12/25/21 13:00 - Labs Lab Results: Laboratory Results - last 24 hr 12/23/21 12/24/21 12/24/21 16:20 17:23 21:50 WBC RBC Hgb 8.8 L Hct 25.9 L MCV MCH MCHC RDW Plt Count Sodium Potassium Chloride Carbon Dioxide Anion Gap BUN Creatinine Estimated GFR BUN/Creatinine Ratio Glucose POC Glucose 167 H Calcium Blood Type O POSITIVE Antibody Screen Negative Crossmatch See Detail 12/24/21 12/25/21 12/25/21 23:54 05:12 05:12 WBC 17.4 H RBC 3.10 L Hgb 8.3 L Hct 24.7 L MCV 80 MCH 27 L MCHC 34 RDW 17.7 H Plt Count 105 L Sodium 138 Potassium 3.5 L Chloride 99.3 Carbon Dioxide 25 Anion Gap 17 BUN 38 H Creatinine 3.7 H Estimated GFR 15 BUN/Creatinine Ratio 10 Glucose 201 H POC Glucose 174 H Calcium 8.0 L Blood Type Antibody Screen Crossmatch Medications & Allergies - Medications Allergies/Adverse Reactions: Allergies No Known Allergies Allergy (Verified 12/11/21 22:19) Home Medications: Home Medications Medication Instructions Recorded Confirmed Last Taken Type Albuterol Sulfate [Proair 2 puff IH Q6HR PRN 11/23/21 12/14/21 Unknown History Digihaler] Calcium Acetate 2 tab PO TID 11/23/21 12/14/21 Unknown History Fluticasone/Umeclidin/Vilanter 1 each IH DAILY 11/23/21 12/14/21 Unknown History [Trelegy Ellipta 100-62.5-25] Furosemide [Lasix TAB] 40 mg PO QDAY 11/23/21 12/14/21 Unknown History Insulin Aspart (Nf) [NovoLOG 55 unit SQ TID 11/23/21 12/14/21 Unknown History Flexpen] Insulin Glargine [Lantus VIAL] 25 units SQ QHS 11/23/21 12/14/21 Unknown History Omeprazole 20 mg PO DAILY 11/23/21 12/14/21 Unknown History Spironolactone [Aldactone] 100 mg PO QDAY 11/23/21 12/14/21 Unknown History lisinopriL [Lisinopril] 20 mg PO BID 11/23/21 12/14/21 12/06/21 History 500 MG Docusate Sodium [Colace CAP] 100 mg PO BID PRN #60 capsule 11/24/21 12/14/21 Unknown Rx Aspirin EC [Halfprin EC] 81 mg PO DAILY 90 Days #90 tablet 11/26/21 12/14/21 Unknown Rx Aspirin [Adult Aspirin] 81 mg PO DAILY 90 Days #90 tab 11/26/21 12/14/21 Unknown Rx ISOSORBIDE MONOnitrate [Imdur ER] 60 mg PO QDAY 90 Days #90 tab 11/26/21 12/14/21 Unknown Rx Sevelamer Carbonate [Renvela] 800 mg PO TIDWM 90 Days #270 tab 11/26/21 12/14/21 Unknown Rx amLODIPine 10 mg PO DAILY 90 Days #90 tab 11/26/21 12/14/21 Unknown Rx carvediloL [Coreg] 25 mg PO BID 90 Days #180 tab 11/26/21 12/14/21 Unknown Rx Atorvastatin Calcium [Lipitor] 80 mg PO QHS 90 Days #90 tab 11/27/21 12/14/21 Unknown Rx levETIRAcetam [Keppra TAB] 500 mg PO 3XW 12/14/21 12/14/21 12/06/21 History 500 MG Active Medications: Generic Name Dose Route Start Last Admin Trade Name Freq PRN Reason Stop Dose Admin Acetaminophen 650 mg 12/13/21 23:00 12/13/21 23:18 Acetaminophen 650 Mg Rect Supp HI 650 mg Q4H PRN Administration Pain, Mild (1-3) Acetaminophen 650 mg 12/24/21 14:02 12/25/21 02:04 Acetaminophen 325 Mg/10.15 Ml Oral Liqd Unit Dose FEEDTUBE 650 mg Q6H PRN Administration Pain, Mild (1-3) Albuterol 2.5 mg 12/11/21 22:14 Albuterol 2.5 Mg/3 Ml Nebu IH Q6HR PRN Wheezing Albuterol/Ipratropium 1 ampul 12/14/21 08:00 12/25/21 07:17 Ipratropium/Albuterol Sulfate 3 Ml Ampul.Neb IH 1 ampul TIDRT KRISTA Administration Lipase/Protease/Amylase 1 each 12/16/21 11:15 Lipase 10,500/Protease 25,000/Amylase 43,750 (Units) Dr Blanco FEEDTUBE PRN PRN For Clogged Feeding Tube Atorvastatin Calcium 80 mg 12/15/21 22:00 12/24/21 22:00 Atorvastatin 40 Mg Tab FEEDTUBE 80 mg QHS KRISTA Administration Budesonide 0.5 mg 12/13/21 08:00 12/25/21 07:17 Budesonide 0.5 Mg/2 Ml Nebu IH 0.5 mg Q12HRT KRISTA Administration Dextrose 50 ml 12/11/21 22:23 12/16/21 06:24 Dextrose 50% In Water (25gm) 50 Ml Syringe IV 15 ml Q30MIN PRN Administration Hypoglycemia Protocol Haloperidol Lactate 2.5 mg 12/25/21 11:37 Haloperidol Lactate 5 Mg/1 Ml Inj IV Q6H PRN Agitation Hydrophilic Ointment 1 applic 12/16/21 14:30 Lip Therapy Vaseline TP Q2HR PRN Dry Lips Sodium Chloride 100 mls @ 999 mls/hr 12/12/21 12:00 Nacl 0.9% IV ABEL PRN Hypotension Ceftriaxone Sodium 2 gm in 100 mls @ 200 mls/hr 12/16/21 15:00 12/24/21 14:07 Rocephin/Ns 2 Gm/100 Ml IV 12/29/21 15:29 200 mls/hr Q24H KRISTA Administration Protocol Insulin Glargine 5 units 12/25/21 22:00 Insulin Glargine 100 Units/Ml SUB-Q QHS KRISTA Insulin Human Lispro 0 unit 12/15/21 12:00 12/25/21 12:27 Insulin Lispro 100 Unit/Ml SUB-Q 3 unit Q6HR KRISTA Administration Protocol Lansoprazole 30 mg 12/25/21 10:00 12/25/21 09:43 Lansoprazole 30 Mg Solutab FEEDTUBE 30 mg QDAY KRISTA Administration Levetiracetam 500 mg 12/16/21 18:00 12/23/21 17:32 Levetiracetam 500 Mg/5 Ml Oral Liqd FEEDTUBE 500 mg TuThSa KRSITA Administration Midodrine 5 mg 12/24/21 12:00 12/25/21 12:27 Midodrine 5 Mg Tab FEEDTUBE 5 mg TID@0800,1200,1600 KRISTA Administration Multi-Ingred Cream/Lotion/Oil/Oint 1 applic 12/16/21 14:10 Mineral Oil/Petrolatum, White Ophth Oint 3.5 Gm OU Q4HR PRN Dry Eye(s) Nitroglycerin 0.4 mg 12/11/21 22:11 Nitroglycerin 0.4 Mg Tab Subl SL Q5M PRN Chest Pain Senna/Docusate Sodium 1 tab 12/16/21 22:00 12/25/21 09:43 Sennosides/Docusate Sodium 8.6/50 Mg Tab FEEDTUBE 1 tab BID KRISTA Administration Simple Syrup 15 ml 12/16/21 11:15 Simple Syrup 15 Ml FEEDTUBE PRN PRN Hypoglycemia Simple Syrup 30 ml 12/16/21 11:15 Simple Syrup 15 Ml FEEDTUBE PRN PRN Hypoglycemia Sodium Bicarbonate 325 mg 12/16/21 11:15 Sodium Bicarbonate 325 Mg Tab FEEDTUBE PRN PRN For Clogged Feeding Tube Sodium Chloride 10 ml 12/11/21 22:11 12/24/21 09:24 Sodium Chloride 0.9% 10 Ml Flush Syringe IV 10 ml PRN PRN Administration LINE FLUSH Vancomycin HCl 125 mg 12/25/21 15:00 Vancomycin 250 Mg/10 Ml Oral Liqd PO Q6H KRISTA Protocol
[2021-12-25] MEDS: cefTRIAXone/NS 2 GM/100 ML 2 GM/100 ML BAG IV SCH (15:00)
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
[2021-12-25] MEDS: VANCOMYCIN 250 MG/10 ML ORAL LIQD PO SCH ×2 (16:51→22:37)
[2021-12-25] MEDS ORDERED: INSULIN GLARGINE 100 UNITS/ML SUB-Q SCH (22:00)
[2021-12-25] MEDS: levETIRAcetam 500 MG/5 ML ORAL LIQD FEEDTUBE SCH (22:38)
[2021-12-26] MEDS: INSULIN LISPRO 100 UNIT/ML SUB-Q SCH ×4 (01:59→17:11)
[2021-12-26] MEDS: VANCOMYCIN 250 MG/10 ML ORAL LIQD PO SCH ×4 (02:11→20:00)
--- NOTE | 2021-12-26 08:16 | Gastroenterology Progress Note ---
Assessment and Plan Rectal bleeding was due to colitis, suspect ischemia vs infection f/u cdiff that was ordered continue supportive care No further GI interventions available, so GI will sign off Speech therapy notes seen; patient with acute event and hopefully she will improve and be able to safely swallow soon. If she cannot and requires mcc alternative method of feeding, please call us back to evaluate for PEG tube GI will sign off - Patient Problems (1) Rectal bleeding Current Visit: Yes Status: Acute (2) Elevated troponin Current Visit: Yes Status: Acute (3) Syncope Current Visit: Yes Status: Acute (4) ESRD (end stage renal disease) on dialysis Current Visit: Yes Status: Chronic Subjective Date of service: 12/26/21 Principal diagnosis: Septic shock ; Bacteremia; ESRD on dialysis; AMS; NSTEMI; HTN; DM II Interval history: Pt extubated Somewhat confused, has NGT in place no blood in rectal tube output, hgb fairly stable now Objective - Constitutional Vitals: Temp Pulse Resp BP Pulse Ox 100.6 F H 87 20 161/60 93 12/26/21 03:52 12/26/21 08:07 12/26/21 08:07 12/26/21 03:52 12/26/21 08:07 General appearance: no acute distress - EENT ENT: hearing intact - Neck Neck: supple - Gastrointestinal General gastrointestinal: Present: soft - Integumentary Integumentary: Present: dry - Labs CBC & Chem 7: 12/25/21 05:12 12/25/21 05:12 Labs: Laboratory Results - last 24 hr 12/25/21 12/25/21 12/25/21 05:27 11:08 12:23 POC Glucose 202 H 185 H 165 H 12/25/21 12/25/21 12/26/21 16:45 22:36 06:10 POC Glucose 109 H 133 H 80
--- NOTE | 2021-12-26 08:52 | Progress Note ---
Assessment and Plan Assessment and plan: This is a 66-year-old female with known past medical history of ESRD on HD, HTN, heart-attack, and GERD initially admitted to the floor s/p fall at home. Patient was transferred to the ICU due to septic shock 09/17 GPC bacteremia requiring vasopressor. Hospital Course to Date: 12/12: No acute events overnight, reports extreme pain in her right leg, denies chest pain or shortness of breath 12/13: No acute events overnight, patient tearful and complaining of right leg pain however she is refusing analgesic medication 12/14: Continues to have right leg pain, does not participate in interview 12/15: Patient transferred to the ICU for hypotension on Levophed drip however she was weaned off by morning and midodrine was increased due to borderline MAP. Blood cultures grew 11/17 gram-positive cocci with suspected right upper chest permacath source. Patient started on vancomycin and infectious disease consulted. Plan for IR consult for permacath removal and assessment of aVF functioning. Possible temporary Vas-Cath placement for hemodialysis. Patient is encephalopathic likely secondary to sepsis. Continue current antibiotics and repeat 2D echo and blood cultures in the a.m. Right upper extremity swelling and pain noted and right upper extremity XR and Doppler ordered. 12/16: Patient noted to have blisters on left arm and RN asked to elevate and place cool compresses to site. AV fistula on left upper extremity access by hemodialysis nurse and hemodialysis ongoing. Vasopressin ordered in efforts to wean Levophed while on hemodialysis. Echocardiogram repeated. Blood cultures grew beta-hemolytic strep group B and antibiotics changed to ceftriaxone. Dobutamine drip discontinued. Remained sedated on fentanyl drip. 12/17: Thrombocytopenia worse today, unable to tolerate being off vasopressin, started on steroids, HIT assay ordered-discontinued. SCDs for now. [facility] will like to give normal saline 100 ml/hr for 2 L. 12/18: Wound care consult placed for right upper extremity, PSV trials today, weaning Levophed, dialysis planned for today. Hematology/oncology consulted yesterday who recommends twice daily Solu-Medrol. No acute events reported overnight. Patient will be started on IV iron 12/19: PSV today, mentation better and intermittently follows commands. Platelets stable. Reglan started for vomiting and will slowly increase TF. KUB with no acute process. 12/20: PSV today, mentation unchanged, CTH without acute findings, Platelets remains stable with no signs of bleeding, high residuals reported overnight and TF was off from approximately [id number]. TF resumed around 0400 at currently at 20/hr. RN to increase as tolerated. [facility] plans extubation Wednesday. HD today. Will keep femoral line for now in setting of low plts 12/21: Patient had moderate BM today with bright red and dark red blood->CBC pending, coags, LDH ordered, GI consulted and Dr. Lambert alerted. PSV again today. Patient is still intermittently following commands. 12/22: Remains on the vent, more somnolent this am. Patient also with persistent bloody stools, H&H remains stable, GI is also following. Will keep patient NPO for now, IV PPI, and serial H&H. Patient is tolerating PSV trial, However, intubation postpone due to increased lethargy and GIB. Awaiting on GI recommend ations. 12/23: With persistent rectal bleeding, H&H and vital signs remain stable. GI is on the case, plan for possible colonoscopy tomorrow. Keep patient NPO, continue IV PPI and serial H&H. Hypoglycemic overnight, most likely due to NPO status, continue D10W for now. D/W CCM continue PSV trial, possible extubation tomorrow. Continue HD per Nephro 12/24: Post colonoscopy at the bedside this am. Patient stable on thevent but lethargic. GI recommendations appreciated. Will resume TF, continue PPI and trend H&H X1more day. Leukocytosis improved this am, stool studies pending, Continue current IV antibiotics per ID. Plan for possible PSV trial today once more awake, possible extubation if patient tolerate PSV trial. 12/25: s/p extubation now stable on 3L NC. Post colonoscopy, still with blood tinge losse stools, stool studies pending. Continue current IV antiobiotics per ID. S/p 1unit of PRBCs, H&H is stable this am, thrombocytopenia improved. Continue to hold AC, trend CBC, and PPI. Consult placed to general surgery for RUE wound eval and management, wound care consult pending. D/w CCM, patient is stable for transfer to Telemetry. 12/26: Patient remains very lethargic, failed swallow evaluation likely due to profound leathargy, Continue aspiration precautions, Monitor H/H closely, GI input noted, will purse PEG placement if patients mental status does not improve to tolerate oral diet. Continue abx per infectious disease specialist. She still has evidence of dark tarry stool in the FMS. We will monitor leukocytosis for resolution. Wound care input from surgical team appreciated patient will likely undergo debridement Aspiration precaution. Awaiting C. difficile testing also. Assessment and Plan #Septic Shock 09/17 #GPC Bacteremia #Severe Colitis #Leukocytosis - Suspected source right upper chest Permacath, removed on 12/15 - Intial Blood cultures + beta-hemolytic strep group B in 4/ bottles, repeat B.Cultures with NGTD - Echo with no evidence of vegetation - With persistent leukocytosis, afebrile - Severe colitis throughout the entire colon noted from colonoscopy on 12/24 - Stool studies pending - ID on consult, appreciated recommendations - Continue current IV Abx, Rocephin, per ID - Continue to F/U on B.cult - Daily CBC monitor #Heart Failure with Reduced Ejection Fraction #Severe Cardiomyopathy #NSTEMI #H/o Hypertension #History of CAD - Cardiology consulted, assistance appreciated - went in septic shock 09/17 bacteremia- s/p dobutamine and vaspressors - Echocardiogram 11/23: EF 35-40% - Repeat Echo this admit shows LVEF 30 to 35%, no valvular vegetations - Continue statin, ASA held due to GIB - midodrine adjusted and parameters added - Continue blood pressure monitor per protocol - Maintain MAP above 65 - Strick I&Os and daily weight #Acute Metabolic Encephalopathy #h/o seizure disorder and 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 #S/p Fall at home - most likely due to severe sepsis - CT head with no acute intracranial process - Imagings with no evidence of fractures or any acute findings - On the vent, not on any sedations, but lethargic - Continue current IV abx per ID - Frequent reorientation - Avoid benzodiazepine to reduce the possibility of delirium - Prn analgesia for pain management - Maintenance of sleep-wake cycle - Aspiration/seizure precautions - Continue fall precautions - Physical therapy eval ordered #Acute on Chronic Hypoxic Respiratory Failure - most likely due to fluid overload/sepsis shock - Decompensated on 12/15 was emergently intubated - Extubated on 12/24, now stable on 3L NC - CCM consulted, appreciate recommendations - Aspiration precaution HOB above 30 - Continue O2 supplementation and SPO2 monitoring for SPO2 goal above 92% #ESRD (End Stage Renal Disease) on HD - Nephrology on consult, appreciated recommendation - BRICE AV-fistula is functioning, patient tolerating HD - Continue HD per Nephro - Strict intake and output - Avoid nephrotoxic medications; Renally dose medications - Monitor and replace electrolytes as needed #Extravasation of RUE #Sacral Wounds - RUE extravasation of RUE- possibly levophed- Antidote not available - RUE doppler negative DVT - WOCN consult pending - General Surgery consulted for wound eval and management - PRN analgesia for pain management #Normocytic Anemia, chronic #Thrombocytopenia-improved #Acute GI Bleed - Acute bloody stools since 12/21, probably due to low plt - H&H remains stable, Platelet count is improving - s/p 2units of FFP and 1unit of PRBCs - HIT panel negative - GI on consult, appreciated recommendations - 12/24- s/p Colonoscopy- diffuse severe colitis throughout the entire colon with erythema and edema and nodularity probably due to infectious or ischemic etiology - stool studies ordered to rule out infectious etiologies - Tolerating TF, still with bloody tinge loose stools - continue PPI and trend CBC - Continue to hold AC for now - Hematology is also following - Continue to monitor for s/s of any active bleeding - Transfuse 1 unit of plts whenever plt count <20 - Transfuse for hemoglobin less than 7 #Type 2 Diabetes Mellitus # Multi-nodular thyroid gland - Episode of hypoglycemia, most likely due to NPO status - Tolerating TF, continue enteral nutrition for now - Speech swallow eval ordered - Continue BG check and SSI Q6hrs - Continue Hypoglycemic Protocol - Avoid Hypoglycemia - Multinodular thyroid gland noted on CT head - Possible thyroid US when more stable vs outpatient #GI/DVT Prophylaxis - PPI- IV Protonix - SCDs to bilateral lower extremities while in bed History Interval history: Patient seen and examined, she remains very lethargic did not pass swallow evaluation. Hospitalist Physical - Physical exam Narrative exam: General appearance: Present: no acute distress, obese - EENT Eyes: Present: PERRL ENT: hearing intact - Neck Neck: Present: normal ROM - Respiratory Respiratory effort: normal Respiratory: bilateral: diminished - Cardiovascular Rhythm: regular Heart Sounds: Present: S1 & S2 - Extremities Extremities: pulses intact, pulses symmetrical, abnormal ((RUE extravasation)) Extremity abnormal: edema - Peripheral Assessment Bilateral Upper Extremity Edema Type: Pitting Edema Degree: 3+ Capillary Refill: < 3 seconds Skin Temperature: Warm Peripheral Pulses: within normal limits - Abdominal General gastrointestinal: soft, non-distended, normal bowel sounds - Integumentary Integumentary: Present: warm ((RUE extravasation)) - Psychiatric Psychiatric: appropriate mood/affect, cooperative, other (Confused-still, easily reoriented) - Neurologic Neurologic: moves all extremities (Limited range motion RUE), other (Awake but confused, easily reoriented) - Allied Health Allied health notes reviewed: nursing, case management - Constitutional Vitals: Temp Pulse Resp BP Pulse Ox 100.6 F H 87 20 161/60 93 12/26/21 03:52 12/26/21 08:07 12/26/21 08:07 12/26/21 03:52 12/26/21 08:07 General appearance: Present: no acute distress, obese HEART Score - HEART Score Troponin: Troponin T 0.175 ng/mL (0.00-0.029) H* 12/12/21 04:43 Results - Labs CBC & Chem 7: 12/25/21 05:12 12/25/21 05:12 Labs: Laboratory Last Values WBC 17.4 K/mm3 (4.5-11.0) H 12/25/21 05:12 RBC 3.10 M/mm3 (3.65-5.03) L 12/25/21 05:12 Hgb 8.3 gm/dl (10.1-14.3) L 12/25/21 05:12 Hct 24.7 % (30.3-42.9) L 12/25/21 05:12 MCV 80 fl (79-97) 12/25/21 05:12 MCH 27 pg (28-32) L 12/25/21 05:12 MCHC 34 % (30-34) 12/25/21 05:12 RDW 17.7 % (13.2-15.2) H 12/25/21 05:12 Plt Count 105 K/mm3 (140-440) L 12/25/21 05:12 Lymph % (Auto) 5.9 % (13.4-35.0) L 12/17/21 04:00 [place] % (Auto) 4.6 % (0.0-7.3) 12/17/21 04:00 Eos % (Auto) 0.4 % (0.0-4.3) 12/17/21 04:00 Baso % (Auto) 0.8 % (0.0-1.8) 12/17/21 04:00 Lymph # (Auto) 0.7 K/mm3 (1.2-5.4) L 12/17/21 04:00 [place] # (Auto) 0.6 K/mm3 (0.0-0.8) 12/17/21 04:00 Eos # (Auto) 0.0 K/mm3 (0.0-0.4) 12/17/21 04:00 Baso # (Auto) 0.1 K/mm3 (0.0-0.1) 12/17/21 04:00 Add Manual Diff Complete 12/18/21 05:00 Total Counted 100 12/19/21 05:00 Seg Neutrophils % [employer] 12/19/21 05:00 Seg Neuts % (Manual) 93.0 % (40.0-70.0) H 12/19/21 05:00 Band Neutrophils % 2.0 % 12/19/21 05:00 Lymphocytes % (Manual) 2.0 % (13.4-35.0) L 12/19/21 05:00 Reactive Lymphs % (Man) 0 % 12/19/21 05:00 Monocytes % (Manual) 1.0 % (0.0-7.3) 12/19/21 05:00 Eosinophils % (Manual) 0 % (0.0-4.3) 12/19/21 05:00 Basophils % (Manual) 0 % (0.0-1.8) 12/19/21 05:00 Metamyelocytes % 2.0 % 12/19/21 05:00 Myelocytes % 0 % 12/19/21 05:00 Promyelocytes % 0 % 12/19/21 05:00 Blast Cells % 0 % 12/19/21 05:00 Nucleated RBC % Not Reportable 12/19/21 05:00 Seg Neutrophils # 10.9 K/mm3 (1.8-7.7) H 12/17/21 04:00 Seg Neutrophils # Man 17.6 K/mm3 (1.8-7.7) H 12/19/21 05:00 Band Neutrophils # 0.4 K/mm3 12/19/21 05:00 Lymphocytes # (Manual) 0.4 K/mm3 (1.2-5.4) L 12/19/21 05:00 Abs React Lymphs (Man) 0.0 K/mm3 12/19/21 05:00 Monocytes # (Manual) 0.2 K/mm3 (0.0-0.8) 12/19/21 05:00 Eosinophils # (Manual) 0.0 K/mm3 (0.0-0.4) 12/19/21 05:00 Basophils # (Manual) 0.0 K/mm3 (0.0-0.1) 12/19/21 05:00 Metamyelocytes # 0.4 K/mm3 12/19/21 05:00 Myelocytes # 0.0 K/mm3 12/19/21 05:00 Promyelocytes # 0.0 K/mm3 12/19/21 05:00 Blast Cells # 0.0 K/mm3 12/19/21 05:00 WBC Morphology Not Reportable 12/19/21 05:00 Hypersegmented Neuts Not Reportable 12/19/21 05:00 Hyposegmented Neuts 1+ 12/19/21 05:00 Hypogranular Neuts Not Reportable 12/19/21 05:00 Smudge Cells Not Reportable 12/19/21 05:00 Toxic Granulation Not Reportable 12/19/21 05:00 Toxic Vacuolation Not Reportable 12/19/21 05:00 Dohle Bodies Not Reportable 12/19/21 05:00 Pelger-Huet Anomaly Not Reportable 12/19/21 05:00 Charles Rods Not Reportable 12/19/21 05:00 Platelet Estimate Consistent w auto 12/19/21 05:00 Clumped Platelets Not Reportable 12/19/21 05:00 Plt Clumps, EDTA Not Reportable 12/19/21 05:00 Large Platelets Not Reportable 12/19/21 05:00 Giant Platelets Not Reportable 12/19/21 05:00 Platelet Satelliting Not Reportable 12/19/21 05:00 Plt Morphology Comment Not Reportable 12/19/21 05:00 RBC Morphology Not Reportable 12/19/21 05:00 Dimorphic RBCs Not Reportable 12/19/21 05:00 Polychromasia Not Reportable 12/19/21 05:00 Hypochromasia 1+ 12/19/21 05:00 Poikilocytosis Few 12/19/21 05:00 Anisocytosis Few 12/19/21 05:00 Microcytosis Not Reportable 12/19/21 05:00 Macrocytosis Not Reportable 12/19/21 05:00 Spherocytes Not Reportable 12/19/21 05:00 Pappenheimer Bodies Not Reportable 12/19/21 05:00 Sickle Cells Not Reportable 12/19/21 05:00 Target Cells Rare 12/19/21 05:00 Tear Drop Cells Not Reportable 12/19/21 05:00 Ovalocytes Rare 12/19/21 05:00 Helmet Cells Not Reportable 12/19/21 05:00 Murphy-Wallis Bodies Not Reportable 12/19/21 05:00 [place] Rings Not Reportable 12/19/21 05:00 [place] Cells Not Reportable 12/19/21 05:00 Bite Cells Not Reportable 12/19/21 05:00 Crenated Cell Not Reportable 12/19/21 05:00 Elliptocytes Not Reportable 12/19/21 05:00 Acanthocytes (Spur) Not Reportable 12/19/21 05:00 Rouleaux Rare 12/19/21 05:00 Hemoglobin C Crystals Not Reportable 12/19/21 05:00 Schistocytes Rare 12/19/21 05:00 Malaria parasites Not Reportable 12/19/21 05:00 Percent Retic 0.37 % (0.78-2.58) L 12/18/21 05:00 Bryson Bodies Not Reportable 12/19/21 05:00 Haptoglobin 193 mg/dL (43-212) 12/18/21 05:00 Hem Pathologist Commnt Not Reportable 12/19/21 05:00 PT 17.7 Sec. (12.2-14.9) H 12/22/21 14:05 INR 1.30 (0.87-1.13) H 12/22/21 14:05 Fibrinogen 351 mg/dl (211-480) 12/21/21 08:35 Heparin Anti-Xa, Unfract Negative (Negative) 12/17/21 09:30 ABG pH 7.450 pH Units (7.350-7.450) 12/24/21 Unknown POC ABG pCO2 36.0 mmHg (32.0-48.0) 12/21/21 10:20 ABG pCO2 39.1 mm Hg 12/24/21 Unknown POC ABG pO2 126.1 mmHg (83-108) H 12/21/21 10:20 ABG pO2 109.1 mm Hg (80.0-90.0) H 12/24/21 Unknown POC ABG HCO3 24.3 12/21/21 10:20 ABG HCO3 26.6 mmol/L (20.0-26.0) H 12/24/21 Unknown ABG O2 Saturation 98.1 % (95.0-99.0) 12/24/21 Unknown ABG O2 Content 9.4 (0.0-44) 12/24/21 Unknown POC ABG Base Excess 0.6 12/21/21 10:20 ABG Base Excess 2.4 mmol/L (-2.0-3.0) 12/24/21 Unknown ABG Hemoglobin 6.8 gm/dl (12.0-16.0) L 12/24/21 Unknown ABG Oxyhemoglobin 97.4 (94-98) 12/21/21 10:20 ABG Carboxyhemoglobin 1.8 % (0.0-5.0) 12/24/21 Unknown ABG Methemoglobin 0.5 % (0.0-1.5) 12/24/21 Unknown ABG Sodium Not Reportable 12/21/21 10:20 ABG Potassium Not Reportable 12/21/21 10:20 ABG Chloride Not Reportable 12/21/21 10:20 ABG Glucose Not Reportable 12/21/21 10:20 VBG pO2 > 258.0 (25.0-47.0) H 12/15/21 19:50 Oxyhemoglobin 95.8 % (95.0-99.0) 12/24/21 Unknown Carboxyhemoglobin 0.9 (0.5-1.5) 12/21/21 10:20 FiO2 30 % 12/24/21 Unknown FiO2 % 30.0 12/21/21 10:20 Sodium 138 mmol/L (137-145) 12/25/21 05:12 Potassium 3.5 mmol/L (3.6-5.0) L 12/25/21 05:12 Chloride 99.3 mmol/L (98-107) 12/25/21 05:12 Carbon Dioxide 25 mmol/L (22-30) 12/25/21 05:12 Anion Gap 17 mmol/L 12/25/21 05:12 BUN 38 mg/dL (7-17) H 12/25/21 05:12 Creatinine 3.7 mg/dL (0.6-1.2) H 12/25/21 05:12 Estimated GFR 15 ml/min 12/25/21 05:12 BUN/Creatinine Ratio 10 % 12/25/21 05:12 Glucose 201 mg/dL (65-100) H 12/25/21 05:12 POC Glucose 80 mg/dL (70-105) 12/26/21 06:10 Lactic Acid 1.90 mmol/L (0.7-2.0) 12/16/21 05:00 Calcium 8.0 mg/dL (8.4-10.2) L 12/25/21 05:12 Phosphorus 4.90 mg/dL (2.5-4.5) H 12/23/21 04:39 Magnesium 1.90 mg/dL (1.7-2.3) 12/23/21 04:39 Iron 13 ug/dL (37-170) L 12/18/21 05:00 TIBC 109 mcg/dL (250-450) L 12/18/21 05:00 Ferritin 383.4 ng/mL (10.0-200.0) H 12/18/21 05:00 Total Bilirubin 0.60 mg/dL (0.1-1.2) 12/11/21 15:40 AST 22 units/L (5-40) 12/11/21 15:40 ALT 13 units/L (7-56) 12/11/21 15:40 Alkaline Phosphatase 237 units/L (35-129) H 12/11/21 15:40 Lactate Dehydrogenase 249 units/L (91-180) H 12/21/21 08:35 Troponin T 0.175 ng/mL (0.00-0.029) H* 12/12/21 04:43 C-Reactive Protein 38.50 mg/dL (0.00-1.30) H 12/15/21 14:40 Total Protein 7.4 g/dL (6.3-8.2) 12/11/21 15:40 Albumin 3.6 g/dL (3.9-5) L 12/11/21 15:40 Albumin/Globulin Ratio 0.9 % 12/11/21 15:40 Triglycerides 92 mg/dL (2-149) 12/11/21 15:40 Cholesterol 72 mg/dL (50-199) 12/11/21 15:40 LDL Cholesterol Direct 16 mg/dL (50-130) L 12/11/21 15:40 HDL Cholesterol 41 mg/dL (40-59) 12/11/21 15:40 Cholesterol/HDL Ratio 1.75 % 12/11/21 15:40 Serotonin Release Assay See scanned result 12/17/21 09:30 Procalcitonin 46.16 ng/mL (<0.15) 12/15/21 04:11 Arterial Blood Glucose Not Reportable 12/21/21 10:20 Random Vancomycin 15.6 ug/mL (0-40.0) 12/16/21 05:00 Heparin-induced Plt Ab Negative (Negative) 12/17/21 09:30 UF Heparin High Dose 1 % Release 12/17/21 09:30 JAMILAH UFH Low Dose 0.1 0 % Release 12/17/21 09:30 JAMILAH UFH Low Dose 0.5 0 % Release 12/17/21 09:30 Blood Type O POSITIVE 12/23/21 16:20 Antibody Screen Negative 12/23/21 16:20 Crossmatch See Detail 12/23/21 16:20 Johnson/IV: Voiding Method Incontinent Active Medications - Current Medications Current Medications: Generic Name Dose Route Start Last Admin Trade Name Freq PRN Reason Stop Dose Admin Acetaminophen 650 mg 12/13/21 23:00 12/13/21 23:18 Acetaminophen 650 Mg Rect Supp ID 650 mg Q4H PRN Administration Pain, Mild (1-3) Acetaminophen 650 mg 12/24/21 14:02 12/25/21 17:05 Acetaminophen 325 Mg/10.15 Ml Oral Liqd Unit Dose FEEDTUBE 650 mg Q6H PRN Administration Pain, Mild (1-3) Albuterol 2.5 mg 12/11/21 22:14 Albuterol 2.5 Mg/3 Ml Nebu IH Q6HR PRN Wheezing Albuterol/Ipratropium 1 ampul 12/14/21 08:00 12/25/21 20:10 Ipratropium/Albuterol Sulfate 3 Ml Ampul.Neb IH 1 ampul TIDRT KRISTA Administration Lipase/Protease/Amylase 1 each 12/16/21 11:15 Lipase 10,500/Protease 25,000/Amylase 43,750 (Units) Dr Blanco FEEDTUBE PRN PRN For Clogged Feeding Tube Atorvastatin Calcium 80 mg 12/15/21 22:00 12/25/21 22:38 Atorvastatin 40 Mg Tab FEEDTUBE 80 mg QHS KRISTA Administration Budesonide 0.5 mg 12/13/21 08:00 12/25/21 20:10 Budesonide 0.5 Mg/2 Ml Nebu IH 0.5 mg Q12HRT KRISTA Administration Dextrose 50 ml 12/11/21 22:23 12/16/21 06:24 Dextrose 50% In Water (25gm) 50 Ml Syringe IV 15 ml Q30MIN PRN Administration Hypoglycemia Protocol Haloperidol Lactate 2.5 mg 12/25/21 11:37 Haloperidol Lactate 5 Mg/1 Ml Inj IV Q6H PRN Agitation Hydrophilic Ointment 1 applic 12/16/21 14:30 Lip Therapy Vaseline TP Q2HR PRN Dry Lips Sodium Chloride 100 mls @ 999 mls/hr 12/12/21 12:00 Nacl 0.9% IV ABEL PRN Hypotension Ceftriaxone Sodium 2 gm in 100 mls @ 200 mls/hr 12/16/21 15:00 12/25/21 15:00 Rocephin/Ns 2 Gm/100 Ml IV 12/29/21 15:29 200 mls/hr Q24H KRISTA Administration Protocol Insulin Glargine 5 units 12/25/21 22:00 12/25/21 22:38 Insulin Glargine 100 Units/Ml SUB-Q 5 units QHS KRISTA Administration Insulin Human Lispro 0 unit 12/15/21 12:00 12/26/21 06:20 Insulin Lispro 100 Unit/Ml SUB-Q Not Given Q6HR COUNTS INCLUDE 234 BEDS AT THE [facility] Protocol Lansoprazole 30 mg 12/25/21 10:00 12/25/21 09:43 Lansoprazole 30 Mg Solutab FEEDTUBE 30 mg QDAY KRISTA Administration Levetiracetam 500 mg 12/16/21 18:00 12/25/21 22:38 Levetiracetam 500 Mg/5 Ml Oral Liqd FEEDTUBE 500 mg TuThSa KRISTA Administration Midodrine 5 mg 12/24/21 12:00 12/25/21 16:51 Midodrine 5 Mg Tab FEEDTUBE 5 mg TID@0800,1200,1600 KRISTA Administration Multi-Ingred Cream/Lotion/Oil/Oint 1 applic 12/16/21 14:10 Mineral Oil/Petrolatum, White Ophth Oint 3.5 Gm OU Q4HR PRN Dry Eye(s) Nitroglycerin 0.4 mg 12/11/21 22:11 Nitroglycerin 0.4 Mg Tab Subl SL Q5M PRN Chest Pain Senna/Docusate Sodium 1 tab 12/16/21 22:00 12/25/21 22:37 Sennosides/Docusate Sodium 8.6/50 Mg Tab FEEDTUBE 1 tab BID KRISTA Administration Simple Syrup 15 ml 12/16/21 11:15 Simple Syrup 15 Ml FEEDTUBE PRN PRN Hypoglycemia Simple Syrup 30 ml 12/16/21 11:15 Simple Syrup 15 Ml FEEDTUBE PRN PRN Hypoglycemia Sodium Bicarbonate 325 mg 12/16/21 11:15 Sodium Bicarbonate 325 Mg Tab FEEDTUBE PRN PRN For Clogged Feeding Tube Sodium Chloride 10 ml 12/11/21 22:11 12/24/21 09:24 Sodium Chloride 0.9% 10 Ml Flush Syringe IV 10 ml PRN PRN Administration LINE FLUSH Vancomycin HCl 125 mg 12/25/21 15:00 12/26/21 02:11 Vancomycin 250 Mg/10 Ml Oral Liqd PO 125 mg Q6H KRISTA Administration Protocol Nutrition/Malnutrition Assess - Dietary Evaluation Nutrition/Malnutrition Findings: Nutrition Notes Start: 12/12/21 11:57 Freq: Status: Active Protocol: Document 12/24/21 17:36 EVERARDO (Rec: 12/24/21 17:55 EVERARDO [email or web address]) Nutrition Notes Initial or Follow up Brief Note Current Diagnosis CKD (stage V CKD),Coronary Artery Disease,Sepsis, Hypertension,Heart Failure, Respiratory Failure Other Pertinent Diagnosis Colitis, Bacteremia, ESRD+HD, Septic Shock, Thrombocytopenia , Anemia,... Current Diet TF-Nepro w/CARBSTEADY @ 30 ml/ hr (from L 12/24). Height 4 ft 11 in Weight 61.9 kg [place] Body Weight (kg) 43.18 BMI 27.6 Weight change and time frame No body weight change in 2 days reported. Weight Status Overweight Subjective/Other Information RD consult for TF continuation . TF resumed on L 12/24. Pt continues on Mechanical ventilation, O2 saturation @ 98%, according to MV notes. Percent of energy/protein needs met: Prescribed TF-Nepro w/ CARBSTEADY @ 30 ml/hr provides for energy/protein needs (1, 296 Kcal/58 g) during LOS, 103 % Kcal; 82% AA. #1 Nutrition Diagnosis Inadequate oral intake Diagnosis Progress(for reassessment Continues documentation) Is patient on ventilator? Yes Is Patient Ambulatory and/or Out of Bed No REE-([facility]-confined to bed) [phone] Calculation Used for Recommendations [facility] Additional Notes Protein: >1.2 g/Kg ABW; >74 g/ day. Fluids: 1-1.5 L/day, or as per MD. Nutrition Intervention Nutrition Support: Continue TF-Nepro w/CARBSTEADY @ 30 ml/hr. Flush: 130 ml water Q 4 hr, or as per MD. Kcal 1,269 Protein (gm) 58 Carbohydrates (gm) 116 Fat (gm) 69 Fluid (mL) 523 Fiber (gm) 9 % RDI: 103% Kcal; 82% AA. Goal #1 Provide at least 75% of energy /protein needs through Enteral Feeding during LOS. Goal #2 Maintain body weight within +/ -3% of admission body weight during LOS. Follow-Up By: 12/31/21 Additional Comments Continue monitoring, Ventilation status, renal function, GI Bleed, TF tolerance and BM.
--- NOTE | 2021-12-26 08:57 | Progress Note ---
Assessment and Plan 66 years old female with history of hypertension, history of heart attack end- stage renal disease on hemodialysis and GERD was brought to the hospital because s/p fall, that occurred 2 days ago. States she did not trip or slip. States she felt dizzy and then found herself on the ground. Denies any CP, SOB, palpitations, diaphoresis prior to or after the fall. Has been having MCKEON,R hip, thigh, knee and leg pain since the fall. Patient also has ESRD and missed her last dialysis session. In the ER patient is found to have troponin of 0.168, BUN of 76 creatinine 9.2, potassium 4.4,CXR: pulmonary edema CT head: no acute intracranial process, CT C-spine: no fracture or traumatic subluxation CT pelvis: no acute fracture or dislocation, XR L spine: no fracture or traumatic subluxation XR R tib fib: no acute fracture or dislocatio,XR R femur: no acute fracture or dislocation, XR R hip with pelvis: no acute fracture or dislocation Going to admit the patient we will put the patient on chest pain pathway. Patient is on fall precaution Past Medical History: acute [place], ESRD, GERD, hypertension, renal failure Past Surgical History: Other (Right anterior chest hemodialysis port) Social history: no significant social history Family history: no significant family history, hypertension Patient transfered to telemetry. Patient sleeping. Opening eyes for verbal stimulation. Following some commands. Not well oriented. Patient weak. Patient is on 2 litres O2. O2 saturation 100%. No acute respiratory distress. Patient running low grade temp. Has leukocytosis. Blood pressure 122/54 , Pulse 102, respirations 20. Chest xray done 12/22/21 reported Mild patchy opacities in both mid to lower lung zones have cleared. No new pulmonary or pleural abnormality. No pneumothorax. Patient is on cephazolin, vancomycin, Budesonide, albuterol/and atrovent aerosol treatments, Prevacid - Patient Problems (1) Pulmonary infiltrates Current Visit: Yes Status: Acute Plan to address problem: Patchy opacities in both mid to lower lung zones have cleared. No new pulmonary or pleural abnormality. No pneumothorax (2) Contusion of right lower extremity Current Visit: Yes Status: Acute Plan to address problem: Management as promary care and wound care. (3) Syncope Current Visit: Yes Status: Acute Plan to address problem: Blood pressure 118/61 Management as primary care and neurology. (4) ESRD (end stage renal disease) on dialysis Current Visit: Yes Status: Chronic Plan to address problem: Management as per nephrology. (5) Hypertension Current Visit: No Status: Chronic Plan to address problem: Management as per primary care. (6) Type 2 diabetes mellitus with diabetic chronic kidney disease Current Visit: No Status: Chronic Plan to address problem: Management as per primary care. Subjective Date of service: 12/26/21 Principal diagnosis: Septic shock ; Bacteremia; ESRD on dialysis; AMS; NSTEMI; HTN; DM II Interval history: 66 years old female with history of hypertension, history of heart attack end- stage renal disease on hemodialysis and GERD was brought to the hospital because s/p fall, that occurred 2 days ago. States she did not trip or slip. States she felt dizzy and then found herself on the ground. Denies any CP, SOB, palpitations, diaphoresis prior to or after the fall. Has been having MCKEON,R hip, thigh, knee and leg pain since the fall. Patient also has ESRD and missed her last dialysis session. In the ER patient is found to have troponin of 0.168, BUN of 76 creatinine 9.2, potassium 4.4,CXR: pulmonary edema CT head: no acute intracranial process, CT C-spine: no fracture or traumatic subluxation CT pelvis: no acute fracture or dislocation, XR L spine: no fracture or traumatic subluxation XR R tib fib: no acute fracture or dislocatio,XR R femur: no acute fracture or dislocation, XR R hip with pelvis: no acute fracture or dislocation Going to admit the patient we will put the patient on chest pain pathway. Patient is on fall precaution Past Medical History: acute [place], ESRD, GERD, hypertension, renal failure Past Surgical History: Other (Right anterior chest hemodialysis port) Social history: no significant social history Family history: no significant family history, hypertension Patient transfered to telemetry. Patient sleeping. Opening eyes for verbal stimulation. Following some commands. Not well oriented. Patient weak. Patient is on 2 litres O2. O2 saturation 100%. No acute respiratory distress. Patient running low grade temp. Has leukocytosis. Blood pressure 122/54 , Pulse 102, respirations 20. Chest xray done 12/22/21 reported Mild patchy opacities in both mid to lower lung zones have cleared. No new pulmonary or pleural abnormality. No pneumothorax. Patient is on cephazolin, vancomycin, Budesonide, albuterol/and atrovent aerosol treatments, Prevacid Objective Vital Signs - 12hr 12/25/21 12/25/21 12/25/21 21:00 21:15 21:30 Temperature Pulse Rate 90 95 H 90 Pulse Rate [ From Monitor] Pulse Rate [ None] Respiratory 24 Rate Blood Pressure 119/76 124/78 115/74 O2 Sat by Pulse 94 Oximetry O2 Sat by Pulse Oximetry [ Anterior Bilateral Throughout] 12/25/21 12/25/21 12/25/21 21:45 22:00 22:12 Temperature 97.9 F Pulse Rate 91 H 94 H 142 H Pulse Rate [ From Monitor] Pulse Rate [ None] Respiratory 22 23 Rate Blood Pressure 118/74 118/74 119/73 O2 Sat by Pulse 90 87 Oximetry O2 Sat by Pulse 95 Oximetry [ Anterior Bilateral Throughout] 12/25/21 12/25/21 12/25/21 22:20 22:30 22:40 Temperature Pulse Rate 93 H 96 H 94 H Pulse Rate [ From Monitor] Pulse Rate [ None] Respiratory 21 22 20 Rate Blood Pressure 123/75 125/74 125/74 O2 Sat by Pulse 87 100 92 Oximetry O2 Sat by Pulse Oximetry [ Anterior Bilateral Throughout] 12/25/21 12/25/21 12/25/21 22:50 23:00 23:29 Temperature 98.5 F Pulse Rate 96 H Pulse Rate [ From Monitor] Pulse Rate [ 92 H None] Respiratory 21 20 18 Rate Blood Pressure 128/77 125/74 184/61 O2 Sat by Pulse 99 97 Oximetry O2 Sat by Pulse Oximetry [ Anterior Bilateral Throughout] 12/26/21 12/26/21 12/26/21 00:00 03:52 04:00 Temperature 100.6 F H Pulse Rate 103 H Pulse Rate [ 87 From Monitor] Pulse Rate [ None] Respiratory 20 18 18 Rate Blood Pressure 161/60 O2 Sat by Pulse 93 100 93 Oximetry O2 Sat by Pulse Oximetry [ Anterior Bilateral Throughout] 12/26/21 08:07 Temperature Pulse Rate Pulse Rate [ 87 From Monitor] Pulse Rate [ None] Respiratory 20 Rate Blood Pressure O2 Sat by Pulse 93 Oximetry O2 Sat by Pulse Oximetry [ Anterior Bilateral Throughout] Constitutional: no acute distress, asleep, other (elderly female with normal respiratory effort at rest) Eyes: non-icteric ENT: oropharynx moist, other (extubated) Neck: supple, no JVD Effort: normal Ascultation: Bilateral: rhonchi (scant) Percussion: Bilateral: not dull Cardiovascular: regular rate and rhythm Gastrointestinal: normoactive bowel sounds, soft, non-tender, non-distended (protuberant) Integumentary: rash (right groin / ? scar), other (Left upper extremity AV graft; right forearm blisters (open and closed) and induration; no pus) Extremities: no cyanosis, pulses normal, no ischemia or petechiae, edema (right upper extremity) Neurologic: non-focal exam (grossly), pupils equal and round, CN II-XII normal Psychiatric: other (Patient sleepy.) CBC and BMP: 12/29/21 06:30 12/29/21 06:30 ABG, PT/INR, D-dimer: ABG ABG pH 7.450 pH Units (7.350-7.450) 12/24/21 Unknown POC ABG pCO2 36.0 mmHg (32.0-48.0) 12/21/21 10:20 ABG pCO2 39.1 mm Hg 12/24/21 Unknown POC ABG pO2 126.1 mmHg (83-108) H 12/21/21 10:20 ABG pO2 109.1 mm Hg (80.0-90.0) H 12/24/21 Unknown POC ABG HCO3 24.3 12/21/21 10:20 ABG O2 Saturation 98.1 % (95.0-99.0) 12/24/21 Unknown PT/INR, D-dimer PT 17.7 Sec. (12.2-14.9) H 12/22/21 14:05 INR 1.30 (0.87-1.13) H 12/22/21 14:05 Abnormal lab findings: Abnormal Labs 12/11/21 12/11/21 12/12/21 14:52 15:40 04:43 WBC RBC 3.57 L Hgb 9.4 L Hct 29.5 L MCH 26 L 27 L RDW 17.8 H 17.9 H Plt Count 119 L 110 L Lymph % (Auto) 4.0 L Lymph # (Auto) 0.3 L Seg Neutrophils % 90.0 H Seg Neuts % (Manual) Lymphocytes % (Manual) Monocytes % (Manual) Nucleated RBC % Seg Neutrophils # Seg Neutrophils # Man Lymphocytes # (Manual) Percent Retic PT INR Fibrinogen ABG pH POC ABG pO2 ABG pO2 ABG HCO3 ABG O2 Saturation ABG Base Excess ABG Hemoglobin VBG pO2 Oxyhemoglobin Sodium Potassium Chloride Carbon Dioxide 18 L BUN 76 H Creatinine 9.2 H Glucose POC Glucose Lactic Acid Calcium 7.7 L Phosphorus Magnesium Iron TIBC Ferritin Alkaline Phosphatase 237 H Lactate Dehydrogenase Troponin T 0.168 H* C-Reactive Protein Albumin 3.6 L LDL Cholesterol Direct 16 L Crossmatch 12/12/21 12/12/21 12/12/21 04:43 04:43 08:49 WBC RBC Hgb Hct MCH RDW Plt Count Lymph % (Auto) Lymph # (Auto) Seg Neutrophils % Seg Neuts % (Manual) Lymphocytes % (Manual) Monocytes % (Manual) Nucleated RBC % Seg Neutrophils # Seg Neutrophils # Man Lymphocytes # (Manual) Percent Retic PT INR Fibrinogen ABG pH POC ABG pO2 ABG pO2 ABG HCO3 ABG O2 Saturation ABG Base Excess ABG Hemoglobin VBG pO2 Oxyhemoglobin Sodium 136 L Potassium Chloride 96.0 L Carbon Dioxide BUN 85 H Creatinine 9.6 H Glucose 57 L POC Glucose 47 L Lactic Acid Calcium 7.8 L Phosphorus Magnesium Iron TIBC Ferritin Alkaline Phosphatase Lactate Dehydrogenase Troponin T 0.175 H* C-Reactive Protein Albumin LDL Cholesterol Direct Crossmatch 12/12/21 12/13/21 12/13/21 11:12 07:30 07:30 WBC RBC Hgb 9.7 L Hct 30.0 L MCH 27 L RDW 18.0 H Plt Count 99 L Lymph % (Auto) 4.8 L Lymph # (Auto) 0.3 L Seg Neutrophils % 88.2 H Seg Neuts % (Manual) Lymphocytes % (Manual) Monocytes % (Manual) Nucleated RBC % Seg Neutrophils # Seg Neutrophils # Man Lymphocytes # (Manual) Percent Retic PT INR Fibrinogen ABG pH POC ABG pO2 ABG pO2 ABG HCO3 ABG O2 Saturation ABG Base Excess ABG Hemoglobin VBG pO2 Oxyhemoglobin Sodium Potassium 5.1 H Chloride 97.8 L Carbon Dioxide 16 L BUN 92 H Creatinine 10.6 H Glucose 121 H POC Glucose 64 L Lactic Acid Calcium 7.6 L Phosphorus Magnesium Iron TIBC Ferritin Alkaline Phosphatase Lactate Dehydrogenase Troponin T C-Reactive Protein Albumin LDL Cholesterol Direct Crossmatch 12/13/21 12/13/21 12/13/21 08:06 11:32 16:59 WBC RBC Hgb Hct MCH RDW Plt Count Lymph % (Auto) Lymph # (Auto) Seg Neutrophils % Seg Neuts % (Manual) Lymphocytes % (Manual) Monocytes % (Manual) Nucleated RBC % Seg Neutrophils # Seg Neutrophils # Man Lymphocytes # (Manual) Percent Retic PT INR Fibrinogen ABG pH POC ABG pO2 ABG pO2 ABG HCO3 ABG O2 Saturation ABG Base Excess ABG Hemoglobin VBG pO2 Oxyhemoglobin Sodium Potassium Chloride Carbon Dioxide BUN Creatinine Glucose POC Glucose 118 H 128 H 130 H Lactic Acid Calcium Phosphorus Magnesium Iron TIBC Ferritin Alkaline Phosphatase Lactate Dehydrogenase Troponin T C-Reactive Protein Albumin LDL Cholesterol Direct Crossmatch 12/13/21 12/14/21 12/14/21 20:16 11:10 11:10 WBC RBC Hgb 9.9 L Hct MCH 27 L RDW 18.1 H Plt Count 82 L Lymph % (Auto) 5.8 L Lymph # (Auto) 0.4 L Seg Neutrophils % 88.3 H Seg Neuts % (Manual) Lymphocytes % (Manual) Monocytes % (Manual) Nucleated RBC % Seg Neutrophils # Seg Neutrophils # Man Lymphocytes # (Manual) Percent Retic PT INR Fibrinogen ABG pH POC ABG pO2 ABG pO2 ABG HCO3 ABG O2 Saturation ABG Base Excess ABG Hemoglobin VBG pO2 Oxyhemoglobin Sodium Potassium Chloride Carbon Dioxide 21 L BUN 57 H Creatinine 7.1 H Glucose 105 H POC Glucose 113 H Lactic Acid Calcium Phosphorus Magnesium Iron TIBC Ferritin Alkaline Phosphatase Lactate Dehydrogenase Troponin T C-Reactive Protein Albumin LDL Cholesterol Direct Crossmatch 12/14/21 12/14/21 12/15/21 11:46 16:41 04:11 WBC RBC Hgb 9.9 L Hct 30.0 L MCH 27 L RDW 18.4 H Plt Count 57 L Lymph % (Auto) Lymph # (Auto) Seg Neutrophils % Seg Neuts % (Manual) Lymphocytes % (Manual) 9.0 L Monocytes % (Manual) 10.0 H Nucleated RBC % Seg Neutrophils # Seg Neutrophils # Man Lymphocytes # (Manual) 0.6 L Percent Retic PT INR Fibrinogen ABG pH POC ABG pO2 ABG pO2 ABG HCO3 ABG O2 Saturation ABG Base Excess ABG Hemoglobin VBG pO2 Oxyhemoglobin Sodium Potassium Chloride Carbon Dioxide BUN Creatinine Glucose POC Glucose 108 H 111 H Lactic Acid Calcium Phosphorus Magnesium Iron TIBC Ferritin Alkaline Phosphatase Lactate Dehydrogenase Troponin T C-Reactive Protein Albumin LDL Cholesterol Direct Crossmatch 12/15/21 12/15/21 12/15/21 04:11 08:48 10:02 WBC RBC Hgb Hct MCH RDW Plt Count Lymph % (Auto) Lymph # (Auto) Seg Neutrophils % Seg Neuts % (Manual) Lymphocytes % (Manual) Monocytes % (Manual) Nucleated RBC % Seg Neutrophils # Seg Neutrophils # Man Lymphocytes # (Manual) Percent Retic PT INR Fibrinogen ABG pH POC ABG pO2 ABG pO2 ABG HCO3 ABG O2 Saturation ABG Base Excess ABG Hemoglobin VBG pO2 Oxyhemoglobin Sodium Potassium Chloride Carbon Dioxide 19 L BUN 68 H Creatinine 7.6 H Glucose POC Glucose 68 L 65 L Lactic Acid Calcium 8.1 L Phosphorus Magnesium Iron TIBC Ferritin Alkaline Phosphatase Lactate Dehydrogenase Troponin T C-Reactive Protein Albumin LDL Cholesterol Direct Crossmatch 12/15/21 12/15/21 12/15/21 10:20 10:51 14:40 WBC RBC Hgb Hct MCH RDW Plt Count Lymph % (Auto) Lymph # (Auto) Seg Neutrophils % Seg Neuts % (Manual) Lymphocytes % (Manual) Monocytes % (Manual) Nucleated RBC % Seg Neutrophils # Seg Neutrophils # Man Lymphocytes # (Manual) Percent Retic PT INR Fibrinogen ABG pH POC ABG pO2 ABG pO2 ABG HCO3 ABG O2 Saturation ABG Base Excess ABG Hemoglobin VBG pO2 Oxyhemoglobin Sodium Potassium Chloride Carbon Dioxide BUN Creatinine Glucose POC Glucose 59 L 60 L Lactic Acid 2.50 H* Calcium Phosphorus Magnesium Iron TIBC Ferritin Alkaline Phosphatase Lactate Dehydrogenase Troponin T C-Reactive Protein Albumin LDL Cholesterol Direct Crossmatch 12/15/21 12/15/21 12/16/21 14:40 19:50 05:00 WBC 12.4 H RBC Hgb 9.6 L Hct 29.4 L MCH 26 L RDW 18.1 H Plt Count 40 L Lymph % (Auto) Lymph # (Auto) Seg Neutrophils % Seg Neuts % (Manual) 95.0 H Lymphocytes % (Manual) 5.0 L Monocytes % (Manual) Nucleated RBC % Seg Neutrophils # Seg Neutrophils # Man 11.8 H Lymphocytes # (Manual) 0.6 L Percent Retic PT INR Fibrinogen ABG pH POC ABG pO2 ABG pO2 463.3 H ABG HCO3 ABG O2 Saturation 99.6 H ABG Base Excess ABG Hemoglobin 10.9 L VBG pO2 > 258.0 H Oxyhemoglobin Sodium Potassium Chloride Carbon Dioxide BUN Creatinine Glucose POC Glucose Lactic Acid Calcium Phosphorus Magnesium Iron TIBC Ferritin Alkaline Phosphatase Lactate Dehydrogenase Troponin T C-Reactive Protein 38.50 H Albumin LDL Cholesterol Direct Crossmatch 12/16/21 12/16/21 12/16/21 05:00 06:15 09:58 WBC RBC Hgb Hct MCH RDW Plt Count Lymph % (Auto) Lymph # (Auto) Seg Neutrophils % Seg Neuts % (Manual) Lymphocytes % (Manual) Monocytes % (Manual) Nucleated RBC % Seg Neutrophils # Seg Neutrophils # Man Lymphocytes # (Manual) Percent Retic PT INR Fibrinogen ABG pH POC ABG pO2 ABG pO2 48.0 L ABG HCO3 ABG O2 Saturation 80.5 L ABG Base Excess -2.9 L ABG Hemoglobin 11.2 L VBG pO2 Oxyhemoglobin 78.8 L Sodium Potassium Chloride Carbon Dioxide BUN 75 H Creatinine 7.7 H Glucose POC Glucose 67 L Lactic Acid Calcium 8.3 L Phosphorus Magnesium Iron TIBC Ferritin Alkaline Phosphatase Lactate Dehydrogenase Troponin T C-Reactive Protein Albumin LDL Cholesterol Direct Crossmatch 12/16/21 12/16/21 12/17/21 11:06 23:24 04:00 WBC 12.3 H RBC 3.32 L Hgb 8.8 L Hct 26.5 L MCH 26 L RDW 18.0 H Plt Count 27 L Lymph % (Auto) 5.9 L Lymph # (Auto) 0.7 L Seg Neutrophils % 88.3 H Seg Neuts % (Manual) Lymphocytes % (Manual) Monocytes % (Manual) Nucleated RBC % Seg Neutrophils # 10.9 H Seg Neutrophils # Man Lymphocytes # (Manual) Percent Retic PT INR Fibrinogen ABG pH POC ABG pO2 ABG pO2 137.7 H ABG HCO3 ABG O2 Saturation ABG Base Excess ABG Hemoglobin 9.9 L VBG pO2 Oxyhemoglobin Sodium Potassium Chloride Carbon Dioxide BUN Creatinine Glucose POC Glucose 110 H Lactic Acid Calcium Phosphorus Magnesium Iron TIBC Ferritin Alkaline Phosphatase Lactate Dehydrogenase Troponin T C-Reactive Protein Albumin LDL Cholesterol Direct Crossmatch 12/17/21 12/17/21 12/17/21 04:30 04:30 11:18 WBC RBC Hgb Hct MCH RDW Plt Count Lymph % (Auto) Lymph # (Auto) Seg Neutrophils % Seg Neuts % (Manual) Lymphocytes % (Manual) Monocytes % (Manual) Nucleated RBC % Seg Neutrophils # Seg Neutrophils # Man Lymphocytes # (Manual) Percent Retic PT INR Fibrinogen ABG pH POC ABG pO2 ABG pO2 ABG HCO3 ABG O2 Saturation ABG Base Excess ABG Hemoglobin VBG pO2 Oxyhemoglobin Sodium Potassium Chloride Carbon Dioxide BUN 43 H Creatinine 5.0 H Glucose 129 H POC Glucose 149 H Lactic Acid Calcium 7.8 L Phosphorus 1.90 L Magnesium 1.60 L Iron TIBC Ferritin Alkaline Phosphatase Lactate Dehydrogenase Troponin T C-Reactive Protein Albumin LDL Cholesterol Direct Crossmatch 12/17/21 12/17/21 12/17/21 14:35 16:58 18:32 WBC RBC Hgb Hct MCH RDW Plt Count Lymph % (Auto) Lymph # (Auto) Seg Neutrophils % Seg Neuts % (Manual) Lymphocytes % (Manual) Monocytes % (Manual) Nucleated RBC % Seg Neutrophils # Seg Neutrophils # Man Lymphocytes # (Manual) Percent Retic PT 17.4 H INR 1.27 H Fibrinogen 486 H ABG pH 7.316 L POC ABG pO2 ABG pO2 74.0 L ABG HCO3 ABG O2 Saturation 93.7 L ABG Base Excess -3.3 L ABG Hemoglobin 8.8 L VBG pO2 Oxyhemoglobin 91.7 L Sodium Potassium Chloride Carbon Dioxide BUN Creatinine Glucose POC Glucose 219 H Lactic Acid Calcium Phosphorus Magnesium Iron TIBC Ferritin Alkaline Phosphatase Lactate Dehydrogenase Troponin T C-Reactive Protein Albumin LDL Cholesterol Direct Crossmatch 12/17/21 12/18/21 12/18/21 23:19 05:00 05:00 WBC 15.3 H RBC 3.25 L Hgb 8.4 L Hct 25.7 L MCH 26 L RDW 18.2 H Plt Count 28 L Lymph % (Auto) Lymph # (Auto) Seg Neutrophils % Seg Neuts % (Manual) 99.0 H Lymphocytes % (Manual) 1.0 L Monocytes % (Manual) Nucleated RBC % 1.0 H Seg Neutrophils # Seg Neutrophils # Man 15.1 H Lymphocytes # (Manual) 0.2 L Percent Retic 0.37 L PT INR Fibrinogen ABG pH POC ABG pO2 ABG pO2 ABG HCO3 ABG O2 Saturation ABG Base Excess ABG Hemoglobin VBG pO2 Oxyhemoglobin Sodium 135 L Potassium Chloride Carbon Dioxide 20 L BUN 53 H Creatinine 5.2 H Glucose 307 H POC Glucose 313 H Lactic Acid Calcium 8.0 L Phosphorus Magnesium Iron 13 L TIBC 109 L Ferritin Alkaline Phosphatase Lactate Dehydrogenase Troponin T C-Reactive Protein Albumin LDL Cholesterol Direct Crossmatch 12/18/21 12/18/21 12/18/21 05:00 05:00 09:00 WBC RBC Hgb Hct MCH RDW Plt Count Lymph % (Auto) Lymph # (Auto) Seg Neutrophils % Seg Neuts % (Manual) Lymphocytes % (Manual) Monocytes % (Manual) Nucleated RBC % Seg Neutrophils # Seg Neutrophils # Man Lymphocytes # (Manual) Percent Retic PT INR Fibrinogen 481 H ABG pH POC ABG pO2 ABG pO2 50.2 L ABG HCO3 ABG O2 Saturation 81.7 L ABG Base Excess -3.6 L ABG Hemoglobin 8.0 L VBG pO2 Oxyhemoglobin 80.0 L Sodium Potassium Chloride Carbon Dioxide BUN Creatinine Glucose POC Glucose Lactic Acid Calcium Phosphorus Magnesium Iron TIBC Ferritin 383.4 H Alkaline Phosphatase Lactate Dehydrogenase Troponin T C-Reactive Protein Albumin LDL Cholesterol Direct Crossmatch 12/18/21 12/18/21 12/18/21 10:56 11:10 12:00 WBC RBC Hgb Hct MCH RDW Plt Count Lymph % (Auto) Lymph # (Auto) Seg Neutrophils % Seg Neuts % (Manual) Lymphocytes % (Manual) Monocytes % (Manual) Nucleated RBC % Seg Neutrophils # Seg Neutrophils # Man Lymphocytes # (Manual) Percent Retic PT INR Fibrinogen ABG pH POC ABG pO2 ABG pO2 92.7 H ABG HCO3 19.8 L ABG O2 Saturation ABG Base Excess -3.8 L ABG Hemoglobin 6.6 L VBG pO2 Oxyhemoglobin Sodium Potassium Chloride Carbon Dioxide BUN Creatinine Glucose POC Glucose 190 H Lactic Acid Calcium Phosphorus 2.40 L D Magnesium Iron TIBC Ferritin Alkaline Phosphatase Lactate Dehydrogenase Troponin T C-Reactive Protein Albumin LDL Cholesterol Direct Crossmatch 12/18/21 12/18/21 12/18/21 18:06 20:00 23:05 WBC 19.2 H RBC 3.51 L Hgb 8.8 L Hct 27.8 L MCH 25 L RDW 18.1 H Plt Count 34 L Lymph % (Auto) Lymph # (Auto) Seg Neutrophils % Seg Neuts % (Manual) Lymphocytes % (Manual) Monocytes % (Manual) Nucleated RBC % Seg Neutrophils # Seg Neutrophils # Man Lymphocytes # (Manual) Percent Retic PT INR Fibrinogen ABG pH POC ABG pO2 ABG pO2 62.5 L ABG HCO3 26.6 H ABG O2 Saturation 91.7 L ABG Base Excess ABG Hemoglobin 8.4 L VBG pO2 Oxyhemoglobin 89.9 L Sodium Potassium Chloride Carbon Dioxide BUN Creatinine Glucose POC Glucose 156 H Lactic Acid Calcium Phosphorus Magnesium Iron TIBC Ferritin Alkaline Phosphatase Lactate Dehydrogenase Troponin T C-Reactive Protein Albumin LDL Cholesterol Direct Crossmatch 12/18/21 12/19/21 12/19/21 23:54 05:00 05:00 WBC 18.9 H RBC 3.29 L Hgb 8.4 L Hct 26.0 L MCH 26 L RDW 18.2 H Plt Count 34 L Lymph % (Auto) Lymph # (Auto) Seg Neutrophils % Seg Neuts % (Manual) 93.0 H Lymphocytes % (Manual) 2.0 L Monocytes % (Manual) Nucleated RBC % Seg Neutrophils # Seg Neutrophils # Man 17.6 H Lymphocytes # (Manual) 0.4 L Percent Retic PT INR Fibrinogen ABG pH POC ABG pO2 ABG pO2 ABG HCO3 ABG O2 Saturation ABG Base Excess ABG Hemoglobin VBG pO2 Oxyhemoglobin Sodium Potassium Chloride Carbon Dioxide BUN 30 H Creatinine 3.1 H Glucose 155 H POC Glucose 122 H Lactic Acid Calcium 8.2 L Phosphorus Magnesium Iron TIBC Ferritin Alkaline Phosphatase Lactate Dehydrogenase Troponin T C-Reactive Protein Albumin LDL Cholesterol Direct Crossmatch 12/19/21 12/19/21 12/19/21 05:29 11:41 17:48 WBC RBC Hgb Hct MCH RDW Plt Count Lymph % (Auto) Lymph # (Auto) Seg Neutrophils % Seg Neuts % (Manual) Lymphocytes % (Manual) Monocytes % (Manual) Nucleated RBC % Seg Neutrophils # Seg Neutrophils # Man Lymphocytes # (Manual) Percent Retic PT INR Fibrinogen ABG pH POC ABG pO2 ABG pO2 ABG HCO3 ABG O2 Saturation ABG Base Excess ABG Hemoglobin VBG pO2 Oxyhemoglobin Sodium Potassium Chloride Carbon Dioxide BUN Creatinine Glucose POC Glucose 153 H 164 H 113 H Lactic Acid Calcium Phosphorus Magnesium Iron TIBC Ferritin Alkaline Phosphatase Lactate Dehydrogenase Troponin T C-Reactive Protein Albumin LDL Cholesterol Direct Crossmatch 12/19/21 12/20/21 12/20/21 23:53 04:45 04:45 WBC 15.0 H RBC 3.39 L Hgb 8.4 L Hct 26.8 L MCH 25 L RDW 17.8 H Plt Count 36 L Lymph % (Auto) Lymph # (Auto) Seg Neutrophils % Seg Neuts % (Manual) Lymphocytes % (Manual) Monocytes % (Manual) Nucleated RBC % Seg Neutrophils # Seg Neutrophils # Man Lymphocytes # (Manual) Percent Retic PT INR Fibrinogen ABG pH POC ABG pO2 ABG pO2 ABG HCO3 ABG O2 Saturation ABG Base Excess ABG Hemoglobin VBG pO2 Oxyhemoglobin Sodium 135 L Potassium Chloride 96.1 L Carbon Dioxide BUN 48 H Creatinine 3.9 H Glucose 188 H POC Glucose 157 H Lactic Acid Calcium 8.1 L Phosphorus Magnesium Iron TIBC Ferritin Alkaline Phosphatase Lactate Dehydrogenase Troponin T C-Reactive Protein Albumin LDL Cholesterol Direct Crossmatch 12/20/21 12/20/21 12/20/21 05:07 11:13 16:35 WBC RBC Hgb Hct MCH RDW Plt Count Lymph % (Auto) Lymph # (Auto) Seg Neutrophils % Seg Neuts % (Manual) Lymphocytes % (Manual) Monocytes % (Manual) Nucleated RBC % Seg Neutrophils # Seg Neutrophils # Man Lymphocytes # (Manual) Percent Retic PT INR Fibrinogen ABG pH POC ABG pO2 ABG pO2 ABG HCO3 ABG O2 Saturation ABG Base Excess ABG Hemoglobin VBG pO2 Oxyhemoglobin Sodium Potassium Chloride Carbon Dioxide BUN Creatinine Glucose POC Glucose 169 H 198 H 198 H Lactic Acid Calcium Phosphorus Magnesium Iron TIBC Ferritin Alkaline Phosphatase Lactate Dehydrogenase Troponin T C-Reactive Protein Albumin LDL Cholesterol Direct Crossmatch 12/20/21 12/21/21 12/21/21 23:50 05:58 08:00 WBC 16.7 H RBC Hgb 9.3 L Hct 29.2 L MCH 25 L RDW 18.5 H Plt Count 62 L Lymph % (Auto) Lymph # (Auto) Seg Neutrophils % Seg Neuts % (Manual) Lymphocytes % (Manual) Monocytes % (Manual) Nucleated RBC % Seg Neutrophils # Seg Neutrophils # Man Lymphocytes # (Manual) Percent Retic PT INR Fibrinogen ABG pH POC ABG pO2 ABG pO2 ABG HCO3 ABG O2 Saturation ABG Base Excess ABG Hemoglobin VBG pO2 Oxyhemoglobin Sodium Potassium Chloride Carbon Dioxide BUN Creatinine Glucose POC Glucose 176 H 185 H Lactic Acid Calcium Phosphorus Magnesium Iron TIBC Ferritin Alkaline Phosphatase Lactate Dehydrogenase Troponin T C-Reactive Protein Albumin LDL Cholesterol Direct Crossmatch 12/21/21 12/21/21 12/21/21 08:35 08:35 10:20 WBC RBC Hgb Hct MCH RDW Plt Count Lymph % (Auto) Lymph # (Auto) Seg Neutrophils % Seg Neuts % (Manual) Lymphocytes % (Manual) Monocytes % (Manual) Nucleated RBC % Seg Neutrophils # Seg Neutrophils # Man Lymphocytes # (Manual) Percent Retic PT 16.4 H INR 1.18 H Fibrinogen ABG pH POC ABG pO2 126.1 H ABG pO2 ABG HCO3 ABG O2 Saturation ABG Base Excess ABG Hemoglobin 11.1 L VBG pO2 Oxyhemoglobin Sodium Potassium 3.5 L Chloride Carbon Dioxide BUN 36 H Creatinine 2.7 H Glucose 174 H POC Glucose Lactic Acid Calcium 8.3 L Phosphorus Magnesium Iron TIBC Ferritin Alkaline Phosphatase Lactate Dehydrogenase 249 H Troponin T C-Reactive Protein Albumin LDL Cholesterol Direct Crossmatch 12/21/21 12/21/21 12/21/21 11:18 17:14 18:00 WBC 20.2 H RBC Hgb 9.9 L Hct MCH 25 L RDW 18.0 H Plt Count 60 L Lymph % (Auto) Lymph # (Auto) Seg Neutrophils % Seg Neuts % (Manual) Lymphocytes % (Manual) Monocytes % (Manual) Nucleated RBC % Seg Neutrophils # Seg Neutrophils # Man Lymphocytes # (Manual) Percent Retic PT INR Fibrinogen ABG pH POC ABG pO2 ABG pO2 ABG HCO3 ABG O2 Saturation ABG Base Excess ABG Hemoglobin VBG pO2 Oxyhemoglobin Sodium Potassium Chloride Carbon Dioxide BUN Creatinine Glucose POC Glucose 181 H 222 H Lactic Acid Calcium Phosphorus Magnesium Iron TIBC Ferritin Alkaline Phosphatase Lactate Dehydrogenase Troponin T C-Reactive Protein Albumin LDL Cholesterol Direct Crossmatch 12/21/21 12/21/21 12/22/21 19:26 23:28 04:14 WBC 23.9 H RBC Hgb Hct MCH 25 L RDW 17.8 H Plt Count 68 L Lymph % (Auto) Lymph # (Auto) Seg Neutrophils % Seg Neuts % (Manual) Lymphocytes % (Manual) Monocytes % (Manual) Nucleated RBC % Seg Neutrophils # Seg Neutrophils # Man Lymphocytes # (Manual) Percent Retic PT INR Fibrinogen ABG pH POC ABG pO2 ABG pO2 ABG HCO3 ABG O2 Saturation ABG Base Excess ABG Hemoglobin VBG pO2 Oxyhemoglobin Sodium Potassium Chloride Carbon Dioxide BUN Creatinine Glucose POC Glucose 214 H 260 H Lactic Acid Calcium Phosphorus Magnesium Iron TIBC Ferritin Alkaline Phosphatase Lactate Dehydrogenase Troponin T C-Reactive Protein Albumin LDL Cholesterol Direct Crossmatch 12/22/21 12/22/21 12/22/21 04:14 05:28 11:12 WBC RBC Hgb Hct MCH RDW Plt Count Lymph % (Auto) Lymph # (Auto) Seg Neutrophils % Seg Neuts % (Manual) Lymphocytes % (Manual) Monocytes % (Manual) Nucleated RBC % Seg Neutrophils # Seg Neutrophils # Man Lymphocytes # (Manual) Percent Retic PT INR Fibrinogen ABG pH POC ABG pO2 ABG pO2 ABG HCO3 ABG O2 Saturation ABG Base Excess ABG Hemoglobin VBG pO2 Oxyhemoglobin Sodium 136 L Potassium 3.0 L Chloride Carbon Dioxide BUN 52 H Creatinine 3.5 H Glucose 202 H POC Glucose 223 H 191 H Lactic Acid Calcium 8.1 L Phosphorus Magnesium Iron TIBC Ferritin Alkaline Phosphatase Lactate Dehydrogenase Troponin T C-Reactive Protein Albumin LDL Cholesterol Direct Crossmatch 12/22/21 12/22/21 12/23/21 14:05 17:57 04:39 WBC 21.1 H RBC Hgb 10.0 L Hct MCH 26 L RDW 17.6 H Plt Count 79 L Lymph % (Auto) Lymph # (Auto) Seg Neutrophils % Seg Neuts % (Manual) Lymphocytes % (Manual) Monocytes % (Manual) Nucleated RBC % Seg Neutrophils # Seg Neutrophils # Man Lymphocytes # (Manual) Percent Retic PT 17.7 H INR 1.30 H Fibrinogen ABG pH POC ABG pO2 ABG pO2 ABG HCO3 ABG O2 Saturation ABG Base Excess ABG Hemoglobin VBG pO2 Oxyhemoglobin Sodium Potassium Chloride Carbon Dioxide BUN Creatinine Glucose POC Glucose 140 H Lactic Acid Calcium Phosphorus Magnesium Iron TIBC Ferritin Alkaline Phosphatase Lactate Dehydrogenase Troponin T C-Reactive Protein Albumin LDL Cholesterol Direct Crossmatch 12/23/21 12/23/21 12/23/21 04:39 05:11 11:44 WBC RBC Hgb Hct MCH RDW Plt Count Lymph % (Auto) Lymph # (Auto) Seg Neutrophils % Seg Neuts % (Manual) Lymphocytes % (Manual) Monocytes % (Manual) Nucleated RBC % Seg Neutrophils # Seg Neutrophils # Man Lymphocytes # (Manual) Percent Retic PT INR Fibrinogen ABG pH POC ABG pO2 ABG pO2 ABG HCO3 ABG O2 Saturation ABG Base Excess ABG Hemoglobin VBG pO2 Oxyhemoglobin Sodium 136 L Potassium Chloride Carbon Dioxide 19 L BUN 61 H Creatinine 4.5 H Glucose 113 H POC Glucose 109 H 132 H Lactic Acid Calcium 7.9 L Phosphorus 4.90 H Magnesium Iron TIBC Ferritin Alkaline Phosphatase Lactate Dehydrogenase Troponin T C-Reactive Protein Albumin LDL Cholesterol Direct Crossmatch 0512/23/21 12/23/21 14:05 16:20 16:59 WBC RBC Hgb 9.3 L Hct 28.7 L MCH RDW Plt Count Lymph % (Auto) Lymph # (Auto) Seg Neutrophils % Seg Neuts % (Manual) Lymphocytes % (Manual) Monocytes % (Manual) Nucleated RBC % Seg Neutrophils # Seg Neutrophils # Man Lymphocytes # (Manual) Percent Retic PT INR Fibrinogen ABG pH POC ABG pO2 ABG pO2 ABG HCO3 ABG O2 Saturation ABG Base Excess ABG Hemoglobin VBG pO2 Oxyhemoglobin Sodium Potassium Chloride Carbon Dioxide BUN Creatinine Glucose POC Glucose 180 H Lactic Acid Calcium Phosphorus Magnesium Iron TIBC Ferritin Alkaline Phosphatase Lactate Dehydrogenase Troponin T C-Reactive Protein Albumin LDL Cholesterol Direct Crossmatch See Detail 12/23/21 12/23/21 12/24/21 21:44 23:30 03:45 WBC RBC Hgb Hct MCH RDW Plt Count Lymph % (Auto) Lymph # (Auto) Seg Neutrophils % Seg Neuts % (Manual) Lymphocytes % (Manual) Monocytes % (Manual) Nucleated RBC % Seg Neutrophils # Seg Neutrophils # Man Lymphocytes # (Manual) Percent Retic PT INR Fibrinogen ABG pH POC ABG pO2 ABG pO2 ABG HCO3 ABG O2 Saturation ABG Base Excess ABG Hemoglobin VBG pO2 Oxyhemoglobin Sodium Potassium Chloride Carbon Dioxide BUN Creatinine Glucose POC Glucose 141 H 146 H 199 H Lactic Acid Calcium Phosphorus Magnesium Iron TIBC Ferritin Alkaline Phosphatase Lactate Dehydrogenase Troponin T C-Reactive Protein Albumin LDL Cholesterol Direct Crossmatch 12/24/21 12/24/21 12/24/21 06:00 06:00 12:37 WBC 16.8 H RBC 2.96 L Hgb 7.5 L Hct 23.3 L MCH 26 L RDW 17.8 H Plt Count 89 L Lymph % (Auto) Lymph # (Auto) Seg Neutrophils % Seg Neuts % (Manual) Lymphocytes % (Manual) Monocytes % (Manual) Nucleated RBC % Seg Neutrophils # Seg Neutrophils # Man Lymphocytes # (Manual) Percent Retic PT INR Fibrinogen ABG pH POC ABG pO2 ABG pO2 ABG HCO3 ABG O2 Saturation ABG Base Excess ABG Hemoglobin VBG pO2 Oxyhemoglobin Sodium Potassium 3.3 L Chloride 97.3 L Carbon Dioxide BUN 31 H Creatinine 2.8 H Glucose 208 H POC Glucose 181 H Lactic Acid Calcium 7.6 L Phosphorus Magnesium Iron TIBC Ferritin Alkaline Phosphatase Lactate Dehydrogenase Troponin T C-Reactive Protein Albumin LDL Cholesterol Direct Crossmatch 12/24/21 12/24/21 12/24/21 14:00 17:23 21:50 WBC RBC Hgb 7.4 L 8.8 L Hct 22.0 L 25.9 L MCH RDW Plt Count Lymph % (Auto) Lymph # (Auto) Seg Neutrophils % Seg Neuts % (Manual) Lymphocytes % (Manual) Monocytes % (Manual) Nucleated RBC % Seg Neutrophils # Seg Neutrophils # Man Lymphocytes # (Manual) Percent Retic PT INR Fibrinogen ABG pH POC ABG pO2 ABG pO2 ABG HCO3 ABG O2 Saturation ABG Base Excess ABG Hemoglobin VBG pO2 Oxyhemoglobin Sodium Potassium Chloride Carbon Dioxide BUN Creatinine Glucose POC Glucose 167 H Lactic Acid Calcium Phosphorus Magnesium Iron TIBC Ferritin Alkaline Phosphatase Lactate Dehydrogenase Troponin T C-Reactive Protein Albumin LDL Cholesterol Direct Crossmatch 12/24/21 12/24/21 12/25/21 23:54 Unknown 05:12 WBC 17.4 H RBC 3.10 L Hgb 8.3 L Hct 24.7 L MCH 27 L RDW 17.7 H Plt Count 105 L Lymph % (Auto) Lymph # (Auto) Seg Neutrophils % Seg Neuts % (Manual) Lymphocytes % (Manual) Monocytes % (Manual) Nucleated RBC % Seg Neutrophils # Seg Neutrophils # Man Lymphocytes # (Manual) Percent Retic PT INR Fibrinogen ABG pH POC ABG pO2 ABG pO2 109.1 H ABG HCO3 26.6 H ABG O2 Saturation ABG Base Excess ABG Hemoglobin 6.8 L VBG pO2 Oxyhemoglobin Sodium Potassium Chloride Carbon Dioxide BUN Creatinine Glucose POC Glucose 174 H Lactic Acid Calcium Phosphorus Magnesium Iron TIBC Ferritin Alkaline Phosphatase Lactate Dehydrogenase Troponin T C-Reactive Protein Albumin LDL Cholesterol Direct Crossmatch 12/25/21 12/25/21 12/25/21 05:12 05:27 11:08 WBC RBC Hgb Hct MCH RDW Plt Count Lymph % (Auto) Lymph # (Auto) Seg Neutrophils % Seg Neuts % (Manual) Lymphocytes % (Manual) Monocytes % (Manual) Nucleated RBC % Seg Neutrophils # Seg Neutrophils # Man Lymphocytes # (Manual) Percent Retic PT INR Fibrinogen ABG pH POC ABG pO2 ABG pO2 ABG HCO3 ABG O2 Saturation ABG Base Excess ABG Hemoglobin VBG pO2 Oxyhemoglobin Sodium Potassium 3.5 L Chloride Carbon Dioxide BUN 38 H Creatinine 3.7 H Glucose 201 H POC Glucose 202 H 185 H Lactic Acid Calcium 8.0 L Phosphorus Magnesium Iron TIBC Ferritin Alkaline Phosphatase Lactate Dehydrogenase Troponin T C-Reactive Protein Albumin LDL Cholesterol Direct Crossmatch 12/25/21 12/25/21 12/25/21 12:23 16:45 22:36 WBC RBC Hgb Hct MCH RDW Plt Count Lymph % (Auto) Lymph # (Auto) Seg Neutrophils % Seg Neuts % (Manual) Lymphocytes % (Manual) Monocytes % (Manual) Nucleated RBC % Seg Neutrophils # Seg Neutrophils # Man Lymphocytes # (Manual) Percent Retic PT INR Fibrinogen ABG pH POC ABG pO2 ABG pO2 ABG HCO3 ABG O2 Saturation ABG Base Excess ABG Hemoglobin VBG pO2 Oxyhemoglobin Sodium Potassium Chloride Carbon Dioxide BUN Creatinine Glucose POC Glucose 165 H 109 H 133 H Lactic Acid Calcium Phosphorus Magnesium Iron TIBC Ferritin Alkaline Phosphatase Lactate Dehydrogenase Troponin T C-Reactive Protein Albumin LDL Cholesterol Direct Crossmatch Chest x-ray: report reviewed, image reviewed Additional Studies: CHEST 1 VIEW 12/22/2021 2:05 PM INDICATION / CLINICAL INFORMATION: Central Line Placement. COMPARISON: 12/19/21. FINDINGS: SUPPORT DEVICES: There is a new right jugular CVL with the tip overlying the upper cavoatrial junction. The positions of the endotracheal tube and feeding tube have not changed. HEART / MEDIASTINUM: Unchanged. LUNGS / PLEURA: Mild patchy opacities in both mid to lower lung zones have cleared. No new pulmonary or pleural abnormality. No pneumothorax. ADDITIONAL FINDINGS: Left subclavian stent graft is again noted. IMPRESSION: Right jugular CVL placement without complication. Allied health notes reviewed: nursing
[2021-12-26 09:23] LABS: Basophils # (Auto) 0.1 K/mm3 (0.0-0.1); Eosinophils # (Auto) 0.1 K/mm3 (0.0-0.4); Eosinophils % (Auto) 0.4 % (0.0-4.3); Hematocrit 25.1 % (30.3-42.9); Hemoglobin 8.5 gm/dl (10.1-14.3); Lymphocytes # (Auto) 1.1 K/mm3 (1.2-5.4); Mean Corpuscular HGB Conc 34 % (30-34); Mean Corpuscular Volume 80 fl (79-97); Monocytes # (Auto) 1.3 K/mm3 (0.0-0.8); Monocytes % (Auto) 8.9 % (0.0-7.3); Platelet Count 119 K/mm3 (140-440); Red Blood Count 3.14 M/mm3 (3.65-5.03); Red Cell Distribution Width 17.4 % (13.2-15.2)
[2021-12-26] MEDS: MIDODRINE 5 MG TAB FEEDTUBE SCH ×3 (09:39→17:11)
[2021-12-26] MEDS: LANSOPRAZOLE 30 MG SOLUTAB FEEDTUBE SCH (09:39)
[2021-12-26] MEDS: SENNOSIDES/DOCUSATE SODIUM 8.6/50 MG TAB FEEDTUBE SCH (09:40)
[2021-12-26] MEDS: IPRATROPIUM/ALBUTEROL SULFATE 3 ML AMPUL.NEB IH SCH ×3 (09:52→20:59)
[2021-12-26] MEDS: BUDESONIDE 0.5 MG/2 ML NEBU IH SCH ×2 (09:52→20:59)
--- NOTE | 2021-12-26 09:57 | Progress Note ---
Assessment and Plan - Patient Problems (1) Syncope Current Visit: Yes Status: Acute Plan to address problem: Patient with end-stage renal disease on hemodialysis, admitted with transient dizziness and sepsis, suspected source indwelling Vas-Cath. She is status post respiratory failure, has been extubated successfully. History of a moderate severity cardiomyopathy, ejection fraction 35 to 40%. We will continue conservative cardiac management with medical therapy as tolerated. Subjective Date of service: 12/26/21 Principal diagnosis: Septic shock ; Bacteremia; ESRD on dialysis; AMS; NSTEMI; HTN; DM II Interval history: Patient is comfortable, no new cardiac complaints. No new cardiac events reported. Objective Vital Signs Temp Pulse Pulse Pulse Pulse Resp Resp 12/26/21 09:55 12/26/21 09:52 101 H 16 12/26/21 08:07 87 20 12/26/21 04:00 18 12/26/21 03:52 100.6 F H 103 H 18 12/26/21 00:00 87 20 12/25/21 23:29 98.5 F 18 12/25/21 23:00 92 H 20 12/25/21 22:50 96 H 21 12/25/21 22:40 94 H 20 12/25/21 22:30 96 H 22 12/25/21 22:20 93 H 21 12/25/21 22:12 142 H 23 12/25/21 22:00 97.9 F 94 H 22 12/25/21 21:45 91 H 12/25/21 21:30 90 12/25/21 21:15 95 H 12/25/21 21:00 90 24 12/25/21 20:45 89 12/25/21 20:30 88 12/25/21 20:15 87 12/25/21 20:14 12/25/21 20:12 85 23 12/25/21 20:00 99.5 F 87 87 23 12/25/21 19:45 98.9 F 87 22 12/25/21 19:00 94 H 27 H 12/25/21 18:00 95 H 12 12/25/21 17:00 95 H 14 12/25/21 16:00 99.3 F 92 H 94 H 22 12/25/21 15:01 86 25 H 12/25/21 14:36 88 16 12/25/21 14:00 90 18 12/25/21 13:00 96 H 16 12/25/21 12:00 98 H 94 H 16 12/25/21 11:35 98.9 F 12/25/21 11:00 99 H 26 H 12/25/21 10:00 97 H 21 BP Pulse Ox Pulse Ox 12/26/21 09:55 97 12/26/21 09:52 12/26/21 08:07 93 12/26/21 04:00 93 12/26/21 03:52 161/60 100 12/26/21 00:00 93 12/25/21 23:29 184/61 12/25/21 23:00 125/74 97 12/25/21 22:50 128/77 99 12/25/21 22:40 125/74 92 12/25/21 22:30 125/74 100 12/25/21 22:20 123/75 87 12/25/21 22:12 119/73 87 12/25/21 22:00 118/74 90 95 12/25/21 21:45 118/74 12/25/21 21:30 115/74 12/25/21 21:15 124/78 12/25/21 21:00 119/76 94 12/25/21 20:45 128/28 12/25/21 20:30 136/78 12/25/21 20:15 142/81 12/25/21 20:14 100 12/25/21 20:12 12/25/21 20:00 135/77 93 12/25/21 19:45 131/87 94 12/25/21 19:00 121/71 100 12/25/21 18:00 121/71 99 12/25/21 17:00 126/76 100 12/25/21 16:00 120/75 100 12/25/21 15:01 98 12/25/21 14:36 12/25/21 14:00 12/25/21 13:00 112/66 99 12/25/21 12:00 113/72 99 12/25/21 11:35 12/25/21 11:00 108/62 93 12/25/21 10:00 112/65 98 - Physical Examination General: No Apparent Distress HEENT: Positive: PERRL Neck: Positive: neck supple Cardiac: Positive: Reg Rate and Rhythm Lungs: Positive: Decreased Breath Sounds Neuro: Positive: Grossly Intact Abdomen: Positive: Soft Skin: Positive: Clear Extremities: Absent: edema - Labs and Meds CBC 12/26/21 Range/Units Unknown WBC 14.2 H (4.5-11.0) K/mm3 RBC 3.14 L (3.65-5.03) M/mm3 Hgb 8.5 L (10.1-14.3) gm/dl Hct 25.1 L (30.3-42.9) % Plt Count 119 L (140-440) K/mm3 Lymph # (Auto) 1.1 L (1.2-5.4) K/mm3 [place] # (Auto) 1.3 H (0.0-0.8) K/mm3 Eos # (Auto) 0.1 (0.0-0.4) K/mm3 Baso # (Auto) 0.1 (0.0-0.1) K/mm3 - Allied health notes Allied health notes reviewed: nursing
--- NOTE | 2021-12-26 10:55 | Progress Note ---
Assessment and Plan Cultures: Blood culture: group B strep Catheter tip culture: Group B strep Blood culture 12/16/2021: No growth A/P: 66-year-old female past medical history hypertension, ESRD on HD now with: #Septic shock secondary to Group B strep bacteremia: Source possibly from dialysis cath. Catheter since been removed. TTE without evidence of vegetations. Repeat blood cultures negative. #Diffuse severe colitis: Noted on colonoscopy. Per GI, endoscopic appearance not classic for IBD. Ischemic versus inflammatory. C. difficile PCR was ordered. #Thrombocytopenia: Probably secondary to sepsis. Hematology evaluated. Better. #ESRD on HD: Renally dose antibiotics #Acute GI bleed, anemia #Thrombocytopenia: Stable to improving Recs: -Given diarrhea, colitis, will de-escalate from ceftriaxone to IV Ancef ending 12/29/2021 -continue with p.o. vancomycin 125 mg QID, discontinue if C. difficile PCR is negative -Wound care Garcia Bowens MD, FACP, [facility] O: [phone] F: [phone] C: [phone] Subjective Date of service: 12/26/21 Principal diagnosis: Septic shock ; Bacteremia; ESRD on dialysis; AMS; NSTEMI; HTN; DM II Interval history: Low-grade fever present. Complains of some abdominal pain. Diarrhea continues, has rectal tube. On tube feeds. Objective - Exam Narrative Exam: Physical Exam: Constitutional: Alert, cooperative. No acute distress Head, Ears, Nose: Normocephalic, atraumatic. External ears, nose normal Eyes: Conjunctivae/corneas clear. No icterus. No ptosis. Neck: Supple, no meningeal signs Cardiovascular: S1, S2 + Respiratory: Good air entry, clear to auscultation bilaterally GI: Soft, mild tenderness +; bowel sounds normal. No peritoneal signs Musculoskeletal: No pedal edema, no cyanosis. Skin: No rash or abscess Hem/Lymphatic: No palpable cervical or supraclavicular nodes. No lymphangitis Psych: Mood ok. Affect normal Neurological: Awake, alert, oriented. No gross abnormality - Constitutional Vitals: Vital Signs Temp Pulse Resp BP Pulse Ox 100.0 F H 101 H 16 122/54 97 12/26/21 08:32 12/26/21 09:52 12/26/21 09:52 12/26/21 08:32 12/26/21 09:55 Temperature -Last 24 Hours Temperature 100.0 F Temperature 100.6 F Temperature 98.5 F Temperature 97.9 F Temperature 99.5 F Temperature 98.9 F Temperature 99.3 F Temperature 98.9 F - Labs CBC & Chem 7: 12/26/21 Unknown 12/25/21 05:12 Labs: Abnormal lab results 12/25/21 12/25/21 12/25/21 Range/Units 05:27 11:08 12:23 WBC (4.5-11.0) K/mm3 RBC (3.65-5.03) M/mm3 Hgb (10.1-14.3) gm/dl Hct (30.3-42.9) % MCH (28-32) pg RDW (13.2-15.2) % Plt Count (140-440) K/mm3 Lymph % (Auto) (13.4-35.0) % [place] % (Auto) (0.0-7.3) % Lymph # (Auto) (1.2-5.4) K/mm3 [place] # (Auto) (0.0-0.8) K/mm3 Seg Neutrophils % (40.0-70.0) % Seg Neutrophils # (1.8-7.7) K/mm3 POC Glucose 202 H 185 H 165 H (70-105) mg/dL 12/25/21 12/25/21 12/26/21 Range/Units 16:45 22:36 Unknown WBC 14.2 H (4.5-11.0) K/mm3 RBC 3.14 L (3.65-5.03) M/mm3 Hgb 8.5 L (10.1-14.3) gm/dl Hct 25.1 L (30.3-42.9) % MCH 27 L (28-32) pg RDW 17.4 H (13.2-15.2) % Plt Count 119 L (140-440) K/mm3 Lymph % (Auto) 8.0 L (13.4-35.0) % [place] % (Auto) 8.9 H (0.0-7.3) % Lymph # (Auto) 1.1 L (1.2-5.4) K/mm3 [place] # (Auto) 1.3 H (0.0-0.8) K/mm3 Seg Neutrophils % 81.7 H (40.0-70.0) % Seg Neutrophils # 11.6 H (1.8-7.7) K/mm3 POC Glucose 109 H 133 H (70-105) mg/dL
[2021-12-26] MEDS: ISOSORB DINIT/HYDRALAZINE 20-37.5MG TAB PO SCH ×3 (11:30→21:49)
[2021-12-26] MEDS: carvediloL 6.25 MG TAB PO SCH ×2 (11:30→21:50)
[2021-12-26] MEDS: ceFAZolin/NS 1 GM/50 ML 1 GM/50 ML BAG IV SCH (17:10)
[2021-12-26] MEDS: DEXTROSE 50% IN WATER (25GM) 50 ML SYRINGE IV PRN (18:12)
--- NOTE | 2021-12-26 22:46 | Progress Note ---
Subjective Principal diagnosis: Septic shock ; Bacteremia; ESRD on dialysis; AMS; NSTEMI; HTN; DM II Interval history: Assessment and plan ESRD: Continue with hemodialysis treatment on Wednesday, ultrafiltration only as tolerated, Patient is currently s/p vascular evaluation, Will invite for evaluation of left upper extremity swelling Anemia in end-stage renal disease: To monitor and follow, erythropoietin as needed, Bone mineral disorder and secondary hyperparathyroidism, periodically check phosphorus and PTH level Hypotension, currently on midodrine judicious ultrafiltration with hemodialysis, will change dialysis prescription to a sodium of 140 bicarbonate 35, dialysate temperature 35.5 Cardiovascular moderately severe cardiomyopathy ejection fraction 35 to 40% Bacteremia, group B strep dialysis catheter has been removed, no evidence of any valvular vegetation cardiology notes appreciated, Thrombocytopenia: Of multifactorial etiology, being followed by primary team as well as hematology, HIT test was negative Multiple other comorbidities including but not limited to hypertension, seizure, diabetes, CVA, left-sided weakness, [place], PCI placement, gastroesophageal reflux disorder congestive heart failure, and many others If there are any questions in regards to this patient renal care please feel free to call me at [phone] Patient was seen today for follow-up of multiple renal related issues She is currently extubated, alert awake following commands Events of 24 hours vitals labs intake output medications were reviewed Past medical history: Reviewed Family history: Reviewed Social history: Reviewed Allergies: Reviewed Physical examination: Vitals: Reviewed HEENT: No pallor or icterus oral mucosa moist Neck: Supple no JVD no thyromegaly Chest: Bilateral clear to auscultation anteriorly Heart: Regular rate and rhythm S1-S2 heard no S3-S4 Abdomen: Soft nontender no voluntary guarding rigidity rebound Extremity: Dry skin less than 1+ peripheral edema Continues to have swelling of the left upper extremity which is generalized without any peripheral cyanosis Psychiatric: No evidence of agitation and aggression noted Dermatology: No petechial rashes Labs and x-rays: Reviewed from today Objective - Vital Signs Vital signs: Vital Signs - 12hr 12/26/21 12/26/21 12/26/21 11:20 16:05 19:20 Temperature 99.1 F 97.4 F L 99.1 F Pulse Rate 100 H 89 83 Pulse Rate [ Anterior Bilateral Throughout] Respiratory 18 18 18 Rate Respiratory Rate [Anterior Bilateral Throughout] Blood Pressure 122/74 130/84 134/63 O2 Sat by Pulse 100 100 96 Oximetry 12/26/21 12/26/21 12/26/21 20:59 21:04 21:49 Temperature Pulse Rate 84 Pulse Rate [ 84 Anterior Bilateral Throughout] Respiratory Rate Respiratory 16 Rate [Anterior Bilateral Throughout] Blood Pressure 134/64 O2 Sat by Pulse 100 Oximetry 12/26/21 21:50 Temperature Pulse Rate 84 Pulse Rate [ Anterior Bilateral Throughout] Respiratory Rate Respiratory Rate [Anterior Bilateral Throughout] Blood Pressure 134/63 O2 Sat by Pulse Oximetry - Lab 12/27/21 04:00 12/27/21 04:00 Most recent lab results ABG pH 7.450 pH Units (7.350-7.450) 12/24/21 Unknown ABG pCO2 39.1 mm Hg 12/24/21 Unknown ABG pO2 109.1 mm Hg (80.0-90.0) H 12/24/21 Unknown ABG HCO3 26.6 mmol/L (20.0-26.0) H 12/24/21 Unknown ABG O2 Saturation 98.1 % (95.0-99.0) 12/24/21 Unknown Calcium 8.0 mg/dL (8.4-10.2) L 12/25/21 05:12 Phosphorus 4.90 mg/dL (2.5-4.5) H 12/23/21 04:39 Magnesium 1.90 mg/dL (1.7-2.3) 12/23/21 04:39 Medications & Allergies - Medications Allergies/Adverse Reactions: Allergies No Known Allergies Allergy (Verified 12/11/21 22:19) Home Medications: Home Medications Medication Instructions Recorded Confirmed Last Taken Type Albuterol Sulfate [Proair 2 puff IH Q6HR PRN 11/23/21 12/14/21 Unknown History Digihaler] Calcium Acetate 2 tab PO TID 11/23/21 12/14/21 Unknown History Fluticasone/Umeclidin/Vilanter 1 each IH DAILY 11/23/21 12/14/21 Unknown History [Trelegy Ellipta 100-62.5-25] Furosemide [Lasix TAB] 40 mg PO QDAY 11/23/21 12/14/21 Unknown History Insulin Aspart (Nf) [NovoLOG 55 unit SQ TID 11/23/21 12/14/21 Unknown History Flexpen] Insulin Glargine [Lantus VIAL] 25 units SQ QHS 11/23/21 12/14/21 Unknown History Omeprazole 20 mg PO DAILY 11/23/21 12/14/21 Unknown History Spironolactone [Aldactone] 100 mg PO QDAY 11/23/21 12/14/21 Unknown History lisinopriL [Lisinopril] 20 mg PO BID 11/23/21 12/14/21 12/06/21 History 500 MG Docusate Sodium [Colace CAP] 100 mg PO BID PRN #60 capsule 11/24/21 12/14/21 Unknown Rx Aspirin EC [Halfprin EC] 81 mg PO DAILY 90 Days #90 tablet 11/26/21 12/14/21 Unknown Rx Aspirin [Adult Aspirin] 81 mg PO DAILY 90 Days #90 tab 11/26/21 12/14/21 Unknown Rx ISOSORBIDE MONOnitrate [Imdur ER] 60 mg PO QDAY 90 Days #90 tab 11/26/21 12/14/21 Unknown Rx Sevelamer Carbonate [Renvela] 800 mg PO TIDWM 90 Days #270 tab 11/26/21 12/14/21 Unknown Rx amLODIPine 10 mg PO DAILY 90 Days #90 tab 11/26/21 12/14/21 Unknown Rx carvediloL [Coreg] 25 mg PO BID 90 Days #180 tab 11/26/21 12/14/21 Unknown Rx Atorvastatin Calcium [Lipitor] 80 mg PO QHS 90 Days #90 tab 11/27/21 12/14/21 Unknown Rx levETIRAcetam [Keppra TAB] 500 mg PO 3XW 12/14/21 12/14/21 12/06/21 History 500 MG Active Medications: Generic Name Dose Route Start Last Admin Trade Name Freq PRN Reason Stop Dose Admin Acetaminophen 650 mg 12/13/21 23:00 12/13/21 23:18 Acetaminophen 650 Mg Rect Supp ND 650 mg Q4H PRN Administration Pain, Mild (1-3) Acetaminophen 650 mg 12/24/21 14:02 12/25/21 17:05 Acetaminophen 325 Mg/10.15 Ml Oral Liqd Unit Dose FEEDTUBE 650 mg Q6H PRN Administration Pain, Mild (1-3) Albuterol 2.5 mg 12/11/21 22:14 Albuterol 2.5 Mg/3 Ml Nebu IH Q6HR PRN Wheezing Albuterol/Ipratropium 1 ampul 12/14/21 08:00 12/26/21 20:59 Ipratropium/Albuterol Sulfate 3 Ml Ampul.Neb IH 1 ampul TIDRT KRISTA Administration Lipase/Protease/Amylase 1 each 12/16/21 11:15 Lipase 10,500/Protease 25,000/Amylase 43,750 (Units) Dr Blanco FEEDTUBE PRN PRN For Clogged Feeding Tube Atorvastatin Calcium 80 mg 12/15/21 22:00 12/26/21 21:50 Atorvastatin 40 Mg Tab FEEDTUBE 80 mg QHS KRISTA Administration Budesonide 0.5 mg 12/13/21 08:00 12/26/21 20:59 Budesonide 0.5 Mg/2 Ml Nebu IH 0.5 mg Q12HRT KRISTA Administration Carvedilol 6.25 mg 12/26/21 10:00 12/26/21 21:50 Carvedilol 6.25 Mg Tab PO 6.25 mg BID KRISTA Administration Dextrose 50 ml 12/11/21 22:23 12/26/21 18:12 Dextrose 50% In Water (25gm) 50 Ml Syringe IV 20 ml Q30MIN PRN Administration Hypoglycemia Protocol Haloperidol Lactate 2.5 mg 12/25/21 11:37 Haloperidol Lactate 5 Mg/1 Ml Inj IV Q6H PRN Agitation Hydrophilic Ointment 1 applic 12/16/21 14:30 Lip Therapy Vaseline TP Q2HR PRN Dry Lips Sodium Chloride 100 mls @ 999 mls/hr 12/12/21 12:00 Nacl 0.9% IV ABEL PRN Hypotension Cefazolin Sodium 1 gm in 50 mls @ 100 mls/hr 12/26/21 18:00 12/26/21 17:10 Ancef/Ns 1 Gm/50 Ml IV 12/29/21 17:59 100 mls/hr QPM KRISTA Administration Protocol Insulin Human Lispro 0 unit 12/15/21 12:00 12/26/21 17:11 Insulin Lispro 100 Unit/Ml SUB-Q Not Given Q6HR KRISTA Protocol Isosorbide Dinitrate/Hydralazine 1 each 12/26/21 10:00 12/26/21 21:49 Isosorb Dinit/Hydralazine 20-37.5mg Tab PO 1 each Q8HR KRISTA Administration Lansoprazole 30 mg 12/25/21 10:00 12/26/21 09:39 Lansoprazole 30 Mg Solutab FEEDTUBE 30 mg QDAY KRISTA Administration Levetiracetam 500 mg 12/16/21 18:00 12/25/21 22:38 Levetiracetam 500 Mg/5 Ml Oral Liqd FEEDTUBE 500 mg TuThSa KRISTA Administration Midodrine 5 mg 12/24/21 12:00 12/26/21 17:11 Midodrine 5 Mg Tab FEEDTUBE 5 mg TID@0800,1200,1600 KRISTA Administration Multi-Ingred Cream/Lotion/Oil/Oint 1 applic 12/16/21 14:10 Mineral Oil/Petrolatum, White Ophth Oint 3.5 Gm OU Q4HR PRN Dry Eye(s) Nitroglycerin 0.4 mg 12/11/21 22:11 Nitroglycerin 0.4 Mg Tab Subl SL Q5M PRN Chest Pain Simple Syrup 15 ml 12/16/21 11:15 Simple Syrup 15 Ml FEEDTUBE PRN PRN Hypoglycemia Simple Syrup 30 ml 12/16/21 11:15 12/26/21 17:10 Simple Syrup 15 Ml FEEDTUBE 30 ml PRN PRN Administration Hypoglycemia Sodium Bicarbonate 325 mg 12/16/21 11:15 Sodium Bicarbonate 325 Mg Tab FEEDTUBE PRN PRN For Clogged Feeding Tube Sodium Chloride 10 ml 12/11/21 22:11 12/26/21 21:46 Sodium Chloride 0.9% 10 Ml Flush Syringe IV 10 ml PRN PRN Administration LINE FLUSH Vancomycin HCl 125 mg 12/25/21 15:00 12/26/21 20:00 Vancomycin 250 Mg/10 Ml Oral Liqd PO 125 mg Q6H KRISTA Administration Protocol
[2021-12-27] MEDS: INSULIN LISPRO 100 UNIT/ML SUB-Q SCH ×4 (00:25→19:01)
[2021-12-27] MEDS: VANCOMYCIN 250 MG/10 ML ORAL LIQD PO SCH ×4 (02:17→22:06)
[2021-12-27] MEDS ORDERED: guaiFENesin DM 200/20 MG ORAL LIQD 10 ML PO PRN (05:30)
[2021-12-27 05:33] LABS: Hematocrit 22.6 % (30.3-42.9); Hemoglobin 7.7 gm/dl (10.1-14.3); Mean Corpuscular HGB Conc 34 % (30-34); Mean Corpuscular Volume 80 fl (79-97); Platelet Count 120 K/mm3 (140-440); Red Blood Count 2.81 M/mm3 (3.65-5.03)
[2021-12-27] MEDS: ISOSORB DINIT/HYDRALAZINE 20-37.5MG TAB PO SCH ×3 (05:33→22:05)
[2021-12-27 05:53] LABS: Albumin 1.7 g/dL (3.9-5)
--- NOTE | 2021-12-27 08:08 | Progress Note ---
Assessment and Plan This is a 66-year-old female with known past medical history of ESRD on HD, HTN, heart-attack, and GERD initially admitted to the floor s/p fall at home. Patient was transferred to the ICU due to septic shock 2/2 GPC bacteremia requiring v asopressor. Patient with right upper extremity wound continue local wound care Subjective Date of service: 12/27/21 Patient Reports: Positive: no new complaints Narrative: This is a 66-year-old female with known past medical history of ESRD on HD, HTN, heart-attack, and GERD initially admitted to the floor s/p fall at home. Patient was transferred to the ICU due to septic shock 2/2 GPC bacteremia requiring vasopressor. Patient with right upper extremity wound continue local wound care Objective Vital Signs - 12hr 12/26/21 12/26/21 12/26/21 20:59 21:04 21:49 Temperature Pulse Rate 84 Pulse Rate [ 84 Anterior Bilateral Throughout] Respiratory Rate Respiratory 16 Rate [Anterior Bilateral Throughout] Blood Pressure 134/64 Blood Pressure [Right] O2 Sat by Pulse 100 Oximetry 12/26/21 12/26/21 12/26/21 21:50 22:00 23:30 Temperature 99.3 F Pulse Rate 84 87 Pulse Rate [ Anterior Bilateral Throughout] Respiratory 18 Rate Respiratory Rate [Anterior Bilateral Throughout] Blood Pressure 134/63 123/49 Blood Pressure [Right] O2 Sat by Pulse 97 100 Oximetry 12/27/21 12/27/21 12/27/21 04:32 05:33 07:32 Temperature 97.5 F L 98.6 F Pulse Rate 85 86 Pulse Rate [ Anterior Bilateral Throughout] Respiratory 18 18 Rate Respiratory Rate [Anterior Bilateral Throughout] Blood Pressure 141/59 141/59 Blood Pressure 110/51 [Right] O2 Sat by Pulse 100 100 Oximetry - Labs 12/27/21 04:00 12/27/21 04:00 Diabetes panel 12/27/21 Range/Units 04:00 Sodium 139 (137-145) mmol/L Potassium 3.7 (3.6-5.0) mmol/L Chloride 100.5 (98-107) mmol/L Carbon Dioxide 26 (22-30) mmol/L BUN 39 H (7-17) mg/dL Creatinine 3.7 H (0.6-1.2) mg/dL Glucose 147 H (65-100) mg/dL Calcium 8.0 L (8.4-10.2) mg/dL AST 23 (5-40) units/L ALT 10 (7-56) units/L Alkaline Phosphatase 222 H (35-129) units/L Total Protein 5.9 L (6.3-8.2) g/dL Albumin 1.7 L (3.9-5) g/dL Calcium panel 12/27/21 Range/Units 04:00 Calcium 8.0 L (8.4-10.2) mg/dL Albumin 1.7 L (3.9-5) g/dL Pituitary panel 12/27/21 Range/Units 04:00 Sodium 139 (137-145) mmol/L Potassium 3.7 (3.6-5.0) mmol/L Chloride 100.5 (98-107) mmol/L Carbon Dioxide 26 (22-30) mmol/L BUN 39 H (7-17) mg/dL Creatinine 3.7 H (0.6-1.2) mg/dL Glucose 147 H (65-100) mg/dL Calcium 8.0 L (8.4-10.2) mg/dL Adrenal panel 12/27/21 Range/Units 04:00 Sodium 139 (137-145) mmol/L Potassium 3.7 (3.6-5.0) mmol/L Chloride 100.5 (98-107) mmol/L Carbon Dioxide 26 (22-30) mmol/L BUN 39 H (7-17) mg/dL Creatinine 3.7 H (0.6-1.2) mg/dL Glucose 147 H (65-100) mg/dL Calcium 8.0 L (8.4-10.2) mg/dL Total Bilirubin 0.50 (0.1-1.2) mg/dL AST 23 (5-40) units/L ALT 10 (7-56) units/L Alkaline Phosphatase 222 H (35-129) units/L Total Protein 5.9 L (6.3-8.2) g/dL Albumin 1.7 L (3.9-5) g/dL
--- NOTE | 2021-12-27 08:20 | Progress Note ---
Assessment and Plan Assessment and plan: This is a 66-year-old female with known past medical history of ESRD on HD, HTN, heart-attack, and GERD initially admitted to the floor s/p fall at home. Patient was transferred to the ICU due to septic shock 09/17 GPC bacteremia requiring vasopressor. Hospital Course to Date: 12/12: No acute events overnight, reports extreme pain in her right leg, denies chest pain or shortness of breath 12/13: No acute events overnight, patient tearful and complaining of right leg pain however she is refusing analgesic medication 12/14: Continues to have right leg pain, does not participate in interview 12/15: Patient transferred to the ICU for hypotension on Levophed drip however she was weaned off by morning and midodrine was increased due to borderline MAP. Blood cultures grew 11/17 gram-positive cocci with suspected right upper chest permacath source. Patient started on vancomycin and infectious disease consulted. Plan for IR consult for permacath removal and assessment of aVF functioning. Possible temporary Vas-Cath placement for hemodialysis. Patient is encephalopathic likely secondary to sepsis. Continue current antibiotics and repeat 2D echo and blood cultures in the a.m. Right upper extremity swelling and pain noted and right upper extremity XR and Doppler ordered. 12/16: Patient noted to have blisters on left arm and RN asked to elevate and place cool compresses to site. AV fistula on left upper extremity access by hemodialysis nurse and hemodialysis ongoing. Vasopressin ordered in efforts to wean Levophed while on hemodialysis. Echocardiogram repeated. Blood cultures grew beta-hemolytic strep group B and antibiotics changed to ceftriaxone. Dobutamine drip discontinued. Remained sedated on fentanyl drip. 12/17: Thrombocytopenia worse today, unable to tolerate being off vasopressin, started on steroids, HIT assay ordered-discontinued. SCDs for now. [facility] will like to give normal saline 100 ml/hr for 2 L. 12/18: Wound care consult placed for right upper extremity, PSV trials today, weaning Levophed, dialysis planned for today. Hematology/oncology consulted yesterday who recommends twice daily Solu-Medrol. No acute events reported overnight. Patient will be started on IV iron 12/19: PSV today, mentation better and intermittently follows commands. Platelets stable. Reglan started for vomiting and will slowly increase TF. KUB with no acute process. 12/20: PSV today, mentation unchanged, CTH without acute findings, Platelets remains stable with no signs of bleeding, high residuals reported overnight and TF was off from approximately [id number]. TF resumed around 0400 at currently at 20/hr. RN to increase as tolerated. [facility] plans extubation Wednesday. HD today. Will keep femoral line for now in setting of low plts 12/21: Patient had moderate BM today with bright red and dark red blood->CBC pending, coags, LDH ordered, GI consulted and Dr. Lambert alerted. PSV again today. Patient is still intermittently following commands. 12/22: Remains on the vent, more somnolent this am. Patient also with persistent bloody stools, H&H remains stable, GI is also following. Will keep patient NPO for now, IV PPI, and serial H&H. Patient is tolerating PSV trial, However, intubation postpone due to increased lethargy and GIB. Awaiting on GI recommend ations. 12/23: With persistent rectal bleeding, H&H and vital signs remain stable. GI is on the case, plan for possible colonoscopy tomorrow. Keep patient NPO, continue IV PPI and serial H&H. Hypoglycemic overnight, most likely due to NPO status, continue D10W for now. D/W CCM continue PSV trial, possible extubation tomorrow. Continue HD per Nephro 12/24: Post colonoscopy at the bedside this am. Patient stable on thevent but lethargic. GI recommendations appreciated. Will resume TF, continue PPI and trend H&H X1more day. Leukocytosis improved this am, stool studies pending, Continue current IV antibiotics per ID. Plan for possible PSV trial today once more awake, possible extubation if patient tolerate PSV trial. 12/25: s/p extubation now stable on 3L NC. Post colonoscopy, still with blood tinge losse stools, stool studies pending. Continue current IV antiobiotics per ID. S/p 1unit of PRBCs, H&H is stable this am, thrombocytopenia improved. Continue to hold AC, trend CBC, and PPI. Consult placed to general surgery for RUE wound eval and management, wound care consult pending. D/w CCM, patient is stable for transfer to Telemetry. 12/26: Patient remains very lethargic, failed swallow evaluation likely due to profound leathargy, Continue aspiration precautions, Monitor H/H closely, GI input noted, will purse PEG placement if patients mental status does not improve to tolerate oral diet. Continue abx per infectious disease specialist. She still has evidence of dark tarry stool in the FMS. We will monitor leukocytosis for resolution. Wound care input from surgical team appreciated patient will likely undergo debridement Aspiration precaution. Awaiting C. difficile testing also. 12/27: Patient still with diarrhea awaiting awaiting C. difficile cultures. Continue to hold all stool softeners. She is more awake this morning and if she was able to tolerate Robitussin and some COVID last night we will have speech team repeat swallow evaluation. Hemoglobin did drop by 1 g we will continue to monitor considering renal failure would not transfuse at this time unless less than 6. Aggressive PT OT Assessment and Plan #Septic Shock 09/17 #GPC Bacteremia #Severe Colitis #Leukocytosis - Suspected source right upper chest Permacath, removed on 12/15 - Intial Blood cultures + beta-hemolytic strep group B in 4/4 bottles, repeat B.Cultures with NGTD - Echo with no evidence of vegetation - With persistent leukocytosis, afebrile - Severe colitis throughout the entire colon noted from colonoscopy on 12/24 - Stool studies pending - ID on consult, appreciated recommendations - Continue current IV Abx, Rocephin, per ID - Continue to F/U on B.cult - Daily CBC monitor #Heart Failure with Reduced Ejection Fraction #Severe Cardiomyopathy #NSTEMI #H/o Hypertension #History of CAD - Cardiology consulted, assistance appreciated - went in septic shock 09/17 bacteremia- s/p dobutamine and vaspressors - Echocardiogram 11/23: EF 35-40% - Repeat Echo this admit shows LVEF 30 to 35%, no valvular vegetations - Continue statin, ASA held due to GIB - midodrine adjusted and parameters added - Continue blood pressure monitor per protocol - Maintain MAP above 65 - Strick I&Os and daily weight #Acute Metabolic Encephalopathy #h/o seizure disorder and 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 #S/p Fall at home - most likely due to severe sepsis - CT head with no acute intracranial process - Imagings with no evidence of fractures or any acute findings - On the vent, not on any sedations, but lethargic - Continue current IV abx per ID - Frequent reorientation - Avoid benzodiazepine to reduce the possibility of delirium - Prn analgesia for pain management - Maintenance of sleep-wake cycle - Aspiration/seizure precautions - Continue fall precautions - Physical therapy eval ordered #Acute on Chronic Hypoxic Respiratory Failure - most likely due to fluid overload/sepsis shock - Decompensated on 12/15 was emergently intubated - Extubated on 12/24, now stable on 3L NC - CCM consulted, appreciate recommendations - Aspiration precaution HOB above 30 - Continue O2 supplementation and SPO2 monitoring for SPO2 goal above 92% #ESRD (End Stage Renal Disease) on HD - Nephrology on consult, appreciated recommendation - BRICE AV-fistula is functioning, patient tolerating HD - Continue HD per Nephro - Strict intake and output - Avoid nephrotoxic medications; Renally dose medications - Monitor and replace electrolytes as needed #Extravasation of RUE #Sacral Wounds - RUE extravasation of RUE- possibly levophed- Antidote not available - RUE doppler negative DVT - WOCN consult pending - General Surgery consulted for wound eval and management - PRN analgesia for pain management #Normocytic Anemia, chronic #Thrombocytopenia-improved #Acute GI Bleed - Acute bloody stools since 12/21, probably due to low plt - H&H remains stable, Platelet count is improving - s/p 2units of FFP and 1unit of PRBCs - HIT panel negative - GI on consult, appreciated recommendations - 12/24- s/p Colonoscopy- diffuse severe colitis throughout the entire colon with erythema and edema and nodularity probably due to infectious or ischemic etiology - stool studies ordered to rule out infectious etiologies - Tolerating TF, still with bloody tinge loose stools - continue PPI and trend CBC - Continue to hold AC for now - Hematology is also following - Continue to monitor for s/s of any active bleeding - Transfuse 1 unit of plts whenever plt count <20 - Transfuse for hemoglobin less than 7 #Type 2 Diabetes Mellitus # Multi-nodular thyroid gland - Episode of hypoglycemia, most likely due to NPO status - Tolerating TF, continue enteral nutrition for now - Speech swallow eval ordered - Continue BG check and SSI Q6hrs - Continue Hypoglycemic Protocol - Avoid Hypoglycemia - Multinodular thyroid gland noted on CT head - Possible thyroid US when more stable vs outpatient #GI/DVT Prophylaxis - PPI- IV Protonix - SCDs to bilateral lower extremities while in bed History Interval history: Patient seen and examined, much more awake this morning. Compared to yesterday asking for cough medication I heard that she did take Robitussin last night. Hospitalist Physical - Physical exam Narrative exam: General appearance: Present: no acute distress, obese much more awake - EENT Eyes: Present: PERRL dry mucosal membrane ENT: hearing intact - Neck Neck: Present: normal ROM - Respiratory Respiratory effort: normal Respiratory: bilateral: diminished - Cardiovascular Rhythm: regular Heart Sounds: Present: S1 & S2 - Extremities Extremities: pulses intact, pulses symmetrical, abnormal ((RUE extravasation)) Extremity abnormal: edema - Peripheral Assessment Bilateral Upper Extremity Edema Type: Pitting Edema Degree: 3+ Capillary Refill: < 3 seconds Skin Temperature: Warm Peripheral Pulses: within normal limits - Abdominal General gastrointestinal: soft, non-distended, normal bowel sounds - Integumentary Integumentary: Present: warm ((RUE extravasation)) - Psychiatric Psychiatric: appropriate mood/affect, cooperative, other (Confused-still, easily reoriented) - Neurologic Neurologic: moves all extremities (Limited range motion RUE), other (Awake but confused, easily reoriented) - Allied Health Allied health notes reviewed: nursing, case management - Constitutional Vitals: Temp Pulse Resp BP Pulse Ox 98.6 F 86 18 110/51 100 12/27/21 07:32 12/27/21 07:32 12/27/21 07:32 12/27/21 07:32 12/27/21 07:32 General appearance: Present: no acute distress, obese HEART Score - HEART Score Troponin: Troponin T 0.175 ng/mL (0.00-0.029) H* 12/12/21 04:43 Results - Labs CBC & Chem 7: 12/27/21 04:00 12/27/21 04:00 Labs: Laboratory Last Values WBC 10.3 K/mm3 (4.5-11.0) 12/27/21 04:00 RBC 2.81 M/mm3 (3.65-5.03) L 12/27/21 04:00 Hgb 7.7 gm/dl (10.1-14.3) L 12/27/21 04:00 Hct 22.6 % (30.3-42.9) L 12/27/21 04:00 MCV 80 fl (79-97) 12/27/21 04:00 MCH 27 pg (28-32) L 12/27/21 04:00 MCHC 34 % (30-34) 12/27/21 04:00 RDW 18.0 % (13.2-15.2) H 12/27/21 04:00 Plt Count 120 K/mm3 (140-440) L 12/27/21 04:00 Lymph % (Auto) 8.0 % (13.4-35.0) L 12/26/21 Unknown [place] % (Auto) 8.9 % (0.0-7.3) H 12/26/21 Unknown Eos % (Auto) 0.4 % (0.0-4.3) 12/26/21 Unknown Baso % (Auto) 1.0 % (0.0-1.8) 12/26/21 Unknown Lymph # (Auto) 1.1 K/mm3 (1.2-5.4) L 12/26/21 Unknown [place] # (Auto) 1.3 K/mm3 (0.0-0.8) H 12/26/21 Unknown Eos # (Auto) 0.1 K/mm3 (0.0-0.4) 12/26/21 Unknown Baso # (Auto) 0.1 K/mm3 (0.0-0.1) 12/26/21 Unknown Add Manual Diff Complete 12/18/21 05:00 Total Counted 100 12/19/21 05:00 Seg Neutrophils % 81.7 % (40.0-70.0) H 12/26/21 Unknown Seg Neuts % (Manual) 93.0 % (40.0-70.0) H 12/19/21 05:00 Band Neutrophils % 2.0 % 12/19/21 05:00 Lymphocytes % (Manual) 2.0 % (13.4-35.0) L 12/19/21 05:00 Reactive Lymphs % (Man) 0 % 12/19/21 05:00 Monocytes % (Manual) 1.0 % (0.0-7.3) 12/19/21 05:00 Eosinophils % (Manual) 0 % (0.0-4.3) 12/19/21 05:00 Basophils % (Manual) 0 % (0.0-1.8) 12/19/21 05:00 Metamyelocytes % 2.0 % 12/19/21 05:00 Myelocytes % 0 % 12/19/21 05:00 Promyelocytes % 0 % 12/19/21 05:00 Blast Cells % 0 % 12/19/21 05:00 Nucleated RBC % Not Reportable 12/19/21 05:00 Seg Neutrophils # 11.6 K/mm3 (1.8-7.7) H 12/26/21 Unknown Seg Neutrophils # Man 17.6 K/mm3 (1.8-7.7) H 12/19/21 05:00 Band Neutrophils # 0.4 K/mm3 12/19/21 05:00 Lymphocytes # (Manual) 0.4 K/mm3 (1.2-5.4) L 12/19/21 05:00 Abs React Lymphs (Man) 0.0 K/mm3 12/19/21 05:00 Monocytes # (Manual) 0.2 K/mm3 (0.0-0.8) 12/19/21 05:00 Eosinophils # (Manual) 0.0 K/mm3 (0.0-0.4) 12/19/21 05:00 Basophils # (Manual) 0.0 K/mm3 (0.0-0.1) 12/19/21 05:00 Metamyelocytes # 0.4 K/mm3 12/19/21 05:00 Myelocytes # 0.0 K/mm3 12/19/21 05:00 Promyelocytes # 0.0 K/mm3 12/19/21 05:00 Blast Cells # 0.0 K/mm3 12/19/21 05:00 WBC Morphology Not Reportable 12/19/21 05:00 Hypersegmented Neuts Not Reportable 12/19/21 05:00 Hyposegmented Neuts 1+ 12/19/21 05:00 Hypogranular Neuts Not Reportable 12/19/21 05:00 Smudge Cells Not Reportable 12/19/21 05:00 Toxic Granulation Not Reportable 12/19/21 05:00 Toxic Vacuolation Not Reportable 12/19/21 05:00 Dohle Bodies Not Reportable 12/19/21 05:00 Pelger-Huet Anomaly Not Reportable 12/19/21 05:00 Charles Rods Not Reportable 12/19/21 05:00 Platelet Estimate Consistent w auto 12/19/21 05:00 Clumped Platelets Not Reportable 12/19/21 05:00 Plt Clumps, EDTA Not Reportable 12/19/21 05:00 Large Platelets Not Reportable 12/19/21 05:00 Giant Platelets Not Reportable 12/19/21 05:00 Platelet Satelliting Not Reportable 12/19/21 05:00 Plt Morphology Comment Not Reportable 12/19/21 05:00 RBC Morphology Not Reportable 12/19/21 05:00 Dimorphic RBCs Not Reportable 12/19/21 05:00 Polychromasia Not Reportable 12/19/21 05:00 Hypochromasia 1+ 12/19/21 05:00 Poikilocytosis Few 12/19/21 05:00 Anisocytosis Few 12/19/21 05:00 Microcytosis Not Reportable 12/19/21 05:00 Macrocytosis Not Reportable 12/19/21 05:00 Spherocytes Not Reportable 12/19/21 05:00 Pappenheimer Bodies Not Reportable 12/19/21 05:00 Sickle Cells Not Reportable 12/19/21 05:00 Target Cells Rare 12/19/21 05:00 Tear Drop Cells Not Reportable 12/19/21 05:00 Ovalocytes Rare 12/19/21 05:00 Helmet Cells Not Reportable 12/19/21 05:00 [employer] Bodies Not Reportable 12/19/21 05:00 Hickory Rings Not Reportable 12/19/21 05:00 Olivia Cells Not Reportable 12/19/21 05:00 Bite Cells Not Reportable 12/19/21 05:00 Crenated Cell Not Reportable 12/19/21 05:00 Elliptocytes Not Reportable 12/19/21 05:00 Acanthocytes (Spur) Not Reportable 12/19/21 05:00 Rouleaux Rare 12/19/21 05:00 Hemoglobin C Crystals Not Reportable 12/19/21 05:00 Schistocytes Rare 12/19/21 05:00 Malaria parasites Not Reportable 12/19/21 05:00 Percent Retic 0.37 % (0.78-2.58) L 12/18/21 05:00 Bryson Bodies Not Reportable 12/19/21 05:00 Haptoglobin 193 mg/dL (43-212) 12/18/21 05:00 Hem Pathologist Commnt Not Reportable 12/19/21 05:00 PT 17.7 Sec. (12.2-14.9) H 12/22/21 14:05 INR 1.30 (0.87-1.13) H 12/22/21 14:05 Fibrinogen 351 mg/dl (211-480) 12/21/21 08:35 Heparin Anti-Xa, Unfract Negative (Negative) 12/17/21 09:30 ABG pH 7.450 pH Units (7.350-7.450) 12/24/21 Unknown POC ABG pCO2 36.0 mmHg (32.0-48.0) 12/21/21 10:20 ABG pCO2 39.1 mm Hg 12/24/21 Unknown POC ABG pO2 126.1 mmHg (83-108) H 12/21/21 10:20 ABG pO2 109.1 mm Hg (80.0-90.0) H 12/24/21 Unknown POC ABG HCO3 24.3 12/21/21 10:20 ABG HCO3 26.6 mmol/L (20.0-26.0) H 12/24/21 Unknown ABG O2 Saturation 98.1 % (95.0-99.0) 12/24/21 Unknown ABG O2 Content 9.4 (0.0-44) 12/24/21 Unknown POC ABG Base Excess 0.6 12/21/21 10:20 ABG Base Excess 2.4 mmol/L (-2.0-3.0) 12/24/21 Unknown ABG Hemoglobin 6.8 gm/dl (12.0-16.0) L 12/24/21 Unknown ABG Oxyhemoglobin 97.4 (94-98) 12/21/21 10:20 ABG Carboxyhemoglobin 1.8 % (0.0-5.0) 12/24/21 Unknown ABG Methemoglobin 0.5 % (0.0-1.5) 12/24/21 Unknown ABG Sodium Not Reportable 12/21/21 10:20 ABG Potassium Not Reportable 12/21/21 10:20 ABG Chloride Not Reportable 12/21/21 10:20 ABG Glucose Not Reportable 12/21/21 10:20 VBG pO2 > 258.0 (25.0-47.0) H 12/15/21 19:50 Oxyhemoglobin 95.8 % (95.0-99.0) 12/24/21 Unknown Carboxyhemoglobin 0.9 (0.5-1.5) 12/21/21 10:20 FiO2 30 % 12/24/21 Unknown FiO2 % 30.0 12/21/21 10:20 Sodium 139 mmol/L (137-145) 12/27/21 04:00 Potassium 3.7 mmol/L (3.6-5.0) 12/27/21 04:00 Chloride 100.5 mmol/L (98-107) 12/27/21 04:00 Carbon Dioxide 26 mmol/L (22-30) 12/27/21 04:00 Anion Gap 16 mmol/L 12/27/21 04:00 BUN 39 mg/dL (7-17) H 12/27/21 04:00 Creatinine 3.7 mg/dL (0.6-1.2) H 12/27/21 04:00 Estimated GFR 15 ml/min 12/27/21 04:00 BUN/Creatinine Ratio 11 % 12/27/21 04:00 Glucose 147 mg/dL (65-100) H 12/27/21 04:00 POC Glucose 127 mg/dL (70-105) H 12/26/21 23:15 Lactic Acid 1.90 mmol/L (0.7-2.0) 12/16/21 05:00 Calcium 8.0 mg/dL (8.4-10.2) L 12/27/21 04:00 Phosphorus 4.90 mg/dL (2.5-4.5) H 12/23/21 04:39 Magnesium 1.90 mg/dL (1.7-2.3) 12/23/21 04:39 Iron 13 ug/dL (37-170) L 12/18/21 05:00 TIBC 109 mcg/dL (250-450) L 12/18/21 05:00 Ferritin 383.4 ng/mL (10.0-200.0) H 12/18/21 05:00 Total Bilirubin 0.50 mg/dL (0.1-1.2) 12/27/21 04:00 AST 23 units/L (5-40) 12/27/21 04:00 ALT 10 units/L (7-56) 12/27/21 04:00 Alkaline Phosphatase 222 units/L (35-129) H 12/27/21 04:00 Ammonia 26.0 umol/L (25-60) 12/26/21 Unknown Lactate Dehydrogenase 249 units/L (91-180) H 12/21/21 08:35 Troponin T 0.175 ng/mL (0.00-0.029) H* 12/12/21 04:43 C-Reactive Protein 38.50 mg/dL (0.00-1.30) H 12/15/21 14:40 Total Protein 5.9 g/dL (6.3-8.2) L 12/27/21 04:00 Albumin 1.7 g/dL (3.9-5) L 12/27/21 04:00 Albumin/Globulin Ratio 0.4 % 12/27/21 04:00 Triglycerides 92 mg/dL (2-149) 12/11/21 15:40 Cholesterol 72 mg/dL (50-199) 12/11/21 15:40 LDL Cholesterol Direct 16 mg/dL (50-130) L 12/11/21 15:40 HDL Cholesterol 41 mg/dL (40-59) 12/11/21 15:40 Cholesterol/HDL Ratio 1.75 % 12/11/21 15:40 Serotonin Release Assay See scanned result 12/17/21 09:30 Procalcitonin 46.16 ng/mL (<0.15) 12/15/21 04:11 Arterial Blood Glucose Not Reportable 12/21/21 10:20 Random Vancomycin 15.6 ug/mL (0-40.0) 12/16/21 05:00 Heparin-induced Plt Ab Negative (Negative) 12/17/21 09:30 UF Heparin High Dose 1 % Release 12/17/21 09:30 JAMILAH UFH Low Dose 0.1 0 % Release 12/17/21 09:30 JAMILAH UFH Low Dose 0.5 0 % Release 12/17/21 09:30 Blood Type O POSITIVE 12/23/21 16:20 Antibody Screen Negative 12/23/21 16:20 Crossmatch See Detail 12/23/21 16:20 Johnson/IV: Voiding Method Incontinent Active Medications - Current Medications Current Medications: Generic Name Dose Route Start Last Admin Trade Name Freq PRN Reason Stop Dose Admin Acetaminophen 650 mg 12/13/21 23:00 12/13/21 23:18 Acetaminophen 650 Mg Rect Supp CA 650 mg Q4H PRN Administration Pain, Mild (1-3) Acetaminophen 650 mg 12/24/21 14:02 12/25/21 17:05 Acetaminophen 325 Mg/10.15 Ml Oral Liqd Unit Dose FEEDTUBE 650 mg Q6H PRN Administration Pain, Mild (1-3) Albuterol 2.5 mg 12/11/21 22:14 Albuterol 2.5 Mg/3 Ml Nebu IH Q6HR PRN Wheezing Albuterol/Ipratropium 1 ampul 12/14/21 08:00 12/26/21 20:59 Ipratropium/Albuterol Sulfate 3 Ml Ampul.Neb IH 1 ampul TIDRT KRISTA Administration Lipase/Protease/Amylase 1 each 12/16/21 11:15 Lipase 10,500/Protease 25,000/Amylase 43,750 (Units) Dr Blanco FEEDTUBE PRN PRN For Clogged Feeding Tube Atorvastatin Calcium 80 mg 12/15/21 22:00 12/26/21 21:50 Atorvastatin 40 Mg Tab FEEDTUBE 80 mg QHS KRISTA Administration Budesonide 0.5 mg 12/13/21 08:00 12/26/21 20:59 Budesonide 0.5 Mg/2 Ml Nebu IH 0.5 mg Q12HRT KRISTA Administration Carvedilol 6.25 mg 12/26/21 10:00 12/26/21 21:50 Carvedilol 6.25 Mg Tab PO 6.25 mg BID KRISTA Administration Dextrose 50 ml 12/11/21 22:23 12/26/21 18:12 Dextrose 50% In Water (25gm) 50 Ml Syringe IV 20 ml Q30MIN PRN Administration Hypoglycemia Protocol Guaifenesin 10 ml 12/27/21 05:30 12/27/21 05:54 Guaifenesin Dm 200/20 Mg Oral Liqd 10 Ml PO 10 ml Q4H PRN Administration Cough Haloperidol Lactate 2.5 mg 12/25/21 11:37 Haloperidol Lactate 5 Mg/1 Ml Inj IV Q6H PRN Agitation Hydrophilic Ointment 1 applic 12/16/21 14:30 Lip Therapy Vaseline TP Q2HR PRN Dry Lips Sodium Chloride 100 mls @ 999 mls/hr 12/12/21 12:00 Nacl 0.9% IV ABEL PRN Hypotension Cefazolin Sodium 1 gm in 50 mls @ 100 mls/hr 12/26/21 18:00 12/26/21 17:10 Ancef/Ns 1 Gm/50 Ml IV 12/29/21 17:59 100 mls/hr QPM [facility] Administration Protocol Insulin Human Lispro 0 unit 12/15/21 12:00 12/27/21 06:14 Insulin Lispro 100 Unit/Ml SUB-Q Not Given Q6HR [facility] Protocol Isosorbide Dinitrate/Hydralazine 1 each 12/26/21 10:00 12/27/21 05:33 Isosorb Dinit/Hydralazine 20-37.5mg Tab PO Not Given Q8HR KRISTA Lansoprazole 30 mg 12/25/21 10:00 12/26/21 09:39 Lansoprazole 30 Mg Solutab FEEDTUBE 30 mg QDAY KRISTA Administration Levetiracetam 500 mg 12/16/21 18:00 12/25/21 22:38 Levetiracetam 500 Mg/5 Ml Oral Liqd FEEDTUBE 500 mg TuThSa [facility] Administration Midodrine 5 mg 12/24/21 12:00 12/26/21 17:11 Midodrine 5 Mg Tab FEEDTUBE 5 mg TID@0800,1200,1600 [facility] Administration Multi-Ingred Cream/Lotion/Oil/Oint 1 applic 12/16/21 14:10 Mineral Oil/Petrolatum, White Ophth Oint 3.5 Gm OU Q4HR PRN Dry Eye(s) Nitroglycerin 0.4 mg 12/11/21 22:11 Nitroglycerin 0.4 Mg Tab Subl SL Q5M PRN Chest Pain Simple Syrup 15 ml 12/16/21 11:15 Simple Syrup 15 Ml FEEDTUBE PRN PRN Hypoglycemia Simple Syrup 30 ml 12/16/21 11:15 12/26/21 17:10 Simple Syrup 15 Ml FEEDTUBE 30 ml PRN PRN Administration Hypoglycemia Sodium Bicarbonate 325 mg 12/16/21 11:15 Sodium Bicarbonate 325 Mg Tab FEEDTUBE PRN PRN For Clogged Feeding Tube Sodium Chloride 10 ml 12/11/21 22:11 12/26/21 21:46 Sodium Chloride 0.9% 10 Ml Flush Syringe IV 10 ml PRN PRN Administration LINE FLUSH Vancomycin HCl 125 mg 12/25/21 15:00 12/27/21 02:17 Vancomycin 250 Mg/10 Ml Oral Liqd PO 125 mg Q6H KRISTA Administration Protocol Nutrition/Malnutrition Assess - Dietary Evaluation Nutrition/Malnutrition Findings: Nutrition Notes Start: 12/12/21 11:57 Freq: Status: Active Protocol: Document 12/24/21 17:36 EVERARDO (Rec: 12/24/21 17:55 EVERARDO [id number]) Nutrition Notes Initial or Follow up Brief Note Current Diagnosis CKD (stage V CKD),Coronary Artery Disease,Sepsis, Hypertension,Heart Failure, Respiratory Failure Other Pertinent Diagnosis Colitis, Bacteremia, ESRD+HD, Septic Shock, Thrombocytopenia , Anemia,... Current Diet TF-Nepro w/CARBSTEADY @ 30 ml/ hr (from L 12/24). Height 4 ft 11 in Weight 61.9 kg [place] Body Weight (kg) 43.18 BMI 27.6 Weight change and time frame No body weight change in 2 days reported. Weight Status Overweight Subjective/Other Information RD consult for TF continuation . TF resumed on L 12/24. Pt continues on Mechanical ventilation, O2 saturation @ 98%, according to MV notes. Percent of energy/protein needs met: Prescribed TF-Nepro w/ CARBSTEADY @ 30 ml/hr provides for energy/protein needs (1, 296 Kcal/58 g) during LOS, 103 % Kcal; 82% AA. #1 Nutrition Diagnosis Inadequate oral intake Diagnosis Progress(for reassessment Continues documentation) Is patient on ventilator? Yes Is Patient Ambulatory and/or Out of Bed No REE-([facility]-confined to bed) [phone] Calculation Used for Recommendations [facility] Additional Notes Protein: >1.2 g/Kg ABW; >74 g/ day. Fluids: 1-1.5 L/day, or as per MD. Nutrition Intervention Nutrition Support: Continue TF-Nepro w/CARBSTEADY @ 30 ml/hr. Flush: 130 ml water Q 4 hr, or as per MD. Kcal 1,269 Protein (gm) 58 Carbohydrates (gm) 116 Fat (gm) 69 Fluid (mL) 523 Fiber (gm) 9 % RDI: 103% Kcal; 82% AA. Goal #1 Provide at least 75% of energy /protein needs through Enteral Feeding during LOS. Goal #2 Maintain body weight within +/ -3% of admission body weight during LOS. Follow-Up By: 12/31/21 Additional Comments Continue monitoring, Ventilation status, renal function, GI Bleed, TF tolerance and BM.
[2021-12-27] MEDS: IPRATROPIUM/ALBUTEROL SULFATE 3 ML AMPUL.NEB IH SCH ×3 (08:45→21:07)
[2021-12-27] MEDS: BUDESONIDE 0.5 MG/2 ML NEBU IH SCH ×2 (08:45→21:06)
[2021-12-27] MEDS: LANSOPRAZOLE 30 MG SOLUTAB FEEDTUBE SCH (09:19)
[2021-12-27] MEDS: MIDODRINE 5 MG TAB FEEDTUBE SCH ×3 (09:19→18:11)
--- NOTE | 2021-12-27 11:19 | Progress Note ---
Subjective Principal diagnosis: Septic shock ; Bacteremia; ESRD on dialysis; AMS; NSTEMI; HTN; DM II Interval history: Assessment and plan: #End-stage kidney disease: Patient will continue to receive hemodialysis treat ment 3 times a week on Wednesday and Wednesday schedule Monitor dialysis related labs/monitor for any access issues Fluid restriction 1200 cc/day high-protein diet #Access: Will need to be evaluated by Dr. 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: To monitor and follow erythropoietin periodically goal hemoglobin between 10-11-1/2 Minimize lab draw in dialysis patients, if possible consider limiting to dialysis days Bone mineral disorder and secondary hyperparathyroidism; Monitor phosphorus binders as necessary goal phosphorus less than 5-1/2 #Diet and nutrition: High-protein diet, multivitamin, Nepro, Progress note by: Sagar Kent MD [address] [place] [id number] Tele [phone] [email or web address] Patient was seen today for follow-up of multiple renal related issues Events of 24 hours vitals labs intake output medications were reviewed Past medical history: Reviewed Family history: Reviewed Social history: Reviewed Allergies: Reviewed Physical examination: Vitals: Reviewed HEENT: No pallor or icterus oral mucosa moist Neck: Supple no JVD no thyromegaly Chest: Bilateral clear to auscultation anteriorly Heart: Regular rate and rhythm S1-S2 heard no S3-S4 Abdomen: Soft nontender no voluntary guarding rigidity rebound Extremity: Amputation, Psychiatric: No evidence of agitation and aggression noted Dermatology: No petechial rashes Labs and x-rays: Reviewed from today Objective - Vital Signs Vital signs: Vital Signs - 12hr 12/26/21 12/27/21 12/27/21 23:30 04:32 05:33 Temperature 99.3 F 97.5 F L Pulse Rate 87 85 Pulse Rate [ Anterior Bilateral Throughout] Respiratory 18 18 Rate Respiratory Rate [Anterior Bilateral Throughout] Blood Pressure 123/49 141/59 141/59 Blood Pressure [Right] O2 Sat by Pulse 100 100 Oximetry 12/27/21 12/27/21 12/27/21 07:32 08:00 08:46 Temperature 98.6 F Pulse Rate 86 Pulse Rate [ 90 Anterior Bilateral Throughout] Respiratory 18 Rate Respiratory 18 Rate [Anterior Bilateral Throughout] Blood Pressure Blood Pressure 110/51 [Right] O2 Sat by Pulse 100 93 Oximetry 12/27/21 12/27/21 10:54 11:00 Temperature 98.0 F Pulse Rate 86 89 Pulse Rate [ Anterior Bilateral Throughout] Respiratory 18 Rate Respiratory Rate [Anterior Bilateral Throughout] Blood Pressure 115/67 Blood Pressure [Right] O2 Sat by Pulse 96 Oximetry - Lab 12/27/21 04:00 12/27/21 04:00 Most recent lab results ABG pH 7.450 pH Units (7.350-7.450) 12/24/21 Unknown ABG pCO2 39.1 mm Hg 12/24/21 Unknown ABG pO2 109.1 mm Hg (80.0-90.0) H 12/24/21 Unknown ABG HCO3 26.6 mmol/L (20.0-26.0) H 12/24/21 Unknown ABG O2 Saturation 98.1 % (95.0-99.0) 12/24/21 Unknown Calcium 8.0 mg/dL (8.4-10.2) L 12/27/21 04:00 Phosphorus 4.90 mg/dL (2.5-4.5) H 12/23/21 04:39 Magnesium 1.90 mg/dL (1.7-2.3) 12/23/21 04:39 Medications & Allergies - Medications Allergies/Adverse Reactions: Allergies No Known Allergies Allergy (Verified 12/11/21 22:19) Home Medications: Home Medications Medication Instructions Recorded Confirmed Last Taken Type RX: Albuterol Sulfate [Proair 2 puff IH Q6HR PRN 11/23/21 12/14/21 Unknown History Digihaler] RX: Calcium Acetate 2 tab PO TID 11/23/21 12/14/21 Unknown History RX: Fluticasone/Umeclidin/Vilanter 1 each IH DAILY 11/23/21 12/14/21 Unknown History [Trelegy Ellipta 100-62.5-25] RX: Furosemide [Lasix TAB] 40 mg PO QDAY 11/23/21 12/14/21 Unknown History RX: Insulin Aspart (Nf) [NovoLOG 55 unit SQ TID 11/23/21 12/14/21 Unknown History Flexpen] RX: Insulin Glargine [Lantus VIAL] 25 units SQ QHS 11/23/21 12/14/21 Unknown History RX: Omeprazole 20 mg PO DAILY 11/23/21 12/14/21 Unknown History RX: Spironolactone [Aldactone] 100 mg PO QDAY 11/23/21 12/14/21 Unknown History RX: lisinopriL [Lisinopril] 20 mg PO BID 11/23/21 12/14/21 12/06/21 History 500 MG RX: Docusate Sodium [Colace CAP] 100 mg PO BID PRN #60 capsule 11/24/21 12/14/21 Unknown Rx RX: Aspirin EC [Halfprin EC] 81 mg PO DAILY 90 Days #90 tablet 11/26/21 12/14/21 Unknown Rx RX: Aspirin [Adult Aspirin] 81 mg PO DAILY 90 Days #90 tab 11/26/21 12/14/21 Unk nown Rx RX: ISOSORBIDE MONOnitrate [Imdur 60 mg PO QDAY 90 Days #90 tab 11/26/21 12/14/21 Unknown Rx ER] RX: Sevelamer Carbonate [Renvela] 800 mg PO TIDWM 90 Days #270 tab 11/26/21 12/14/21 Unknown Rx RX: amLODIPine 10 mg PO DAILY 90 Days #90 tab 11/26/21 12/14/21 Unknown Rx RX: carvediloL [Coreg] 25 mg PO BID 90 Days #180 tab 11/26/21 12/14/21 Unknown Rx RX: Atorvastatin Calcium [Lipitor] 80 mg PO QHS 90 Days #90 tab 11/27/21 12/14/21 Unknown Rx RX: levETIRAcetam [Keppra TAB] 500 mg PO 3XW 12/14/21 12/14/21 12/06/21 History 500 MG Active Medications: Generic Name Dose Route Start Last Admin Trade Name Freq PRN Reason Stop Dose Admin Acetaminophen 650 mg 12/13/21 23:00 12/13/21 23:18 Acetaminophen 650 Mg Rect Supp [place] 650 mg Q4H PRN Administration Pain, Mild (1-3) Acetaminophen 650 mg 12/24/21 14:02 12/25/21 17:05 Acetaminophen 325 Mg/10.15 Ml Oral Liqd Unit Dose FEEDTUBE 650 mg Q6H PRN Administration Pain, Mild (1-3) Albuterol 2.5 mg 12/11/21 22:14 Albuterol 2.5 Mg/3 Ml Nebu IH Q6HR PRN Wheezing Albuterol/Ipratropium 1 ampul 12/14/21 08:00 12/27/21 08:45 Ipratropium/Albuterol Sulfate 3 Ml Ampul.Neb IH 1 ampul TIDRT KRISTA Administration Lipase/Protease/Amylase 1 each 12/16/21 11:15 Lipase 10,500/Protease 25,000/Amylase 43,750 (Units) Dr Blanco FEEDTUBE PRN PRN For Clogged Feeding Tube Atorvastatin Calcium 80 mg 12/15/21 22:00 12/26/21 21:50 Atorvastatin 40 Mg Tab FEEDTUBE 80 mg QHS KRISTA Administration Budesonide 0.5 mg 12/13/21 08:00 12/27/21 08:45 Budesonide 0.5 Mg/2 Ml Nebu IH 0.5 mg Q12HRT KRISTA Administration Carvedilol 6.25 mg 12/26/21 10:00 12/26/21 21:50 Carvedilol 6.25 Mg Tab PO 6.25 mg BID KRISTA Administration Dextrose 50 ml 12/11/21 22:23 12/26/21 18:12 Dextrose 50% In Water (25gm) 50 Ml Syringe IV 20 ml Q30MIN PRN Administration Hypoglycemia Protocol Guaifenesin 10 ml 12/27/21 05:30 12/27/21 05:54 Guaifenesin Dm 200/20 Mg Oral Liqd 10 Ml PO 10 ml Q4H PRN Administration Cough Haloperidol Lactate 2.5 mg 12/25/21 11:37 Haloperidol Lactate 5 Mg/1 Ml Inj IV Q6H PRN Agitation Hydrophilic Ointment 1 applic 12/16/21 14:30 Lip Therapy Vaseline TP Q2HR PRN Dry Lips Sodium Chloride 100 mls @ 999 mls/hr 12/12/21 12:00 Nacl 0.9% IV ABEL PRN Hypotension Cefazolin Sodium 1 gm in 50 mls @ 100 mls/hr 12/26/21 18:00 12/26/21 17:10 Ancef/Ns 1 Gm/50 Ml IV 12/29/21 17:59 100 mls/hr QPM KRISTA Administration Protocol Insulin Human Lispro 0 unit 12/15/21 12:00 12/27/21 06:14 Insulin Lispro 100 Unit/Ml SUB-Q Not Given Q6HR [facility] Protocol Isosorbide Dinitrate/Hydralazine 1 each 12/26/21 10:00 12/27/21 05:33 Isosorb Dinit/Hydralazine 20-37.5mg Tab PO Not Given Q8HR [facility] Lansoprazole 30 mg 12/25/21 10:00 12/27/21 09:19 Lansoprazole 30 Mg Solutab FEEDTUBE 30 mg QDAY KRISTA Administration Levetiracetam 500 mg 12/16/21 18:00 12/25/21 22:38 Levetiracetam 500 Mg/5 Ml Oral Liqd FEEDTUBE 500 mg TuThSa [facility] Administration Midodrine 5 mg 12/24/21 12:00 12/27/21 09:19 Midodrine 5 Mg Tab FEEDTUBE 5 mg TID@0800,1200,1600 [facility] Administration Multi-Ingred Cream/Lotion/Oil/Oint 1 applic 12/16/21 14:10 Mineral Oil/Petrolatum, White Ophth Oint 3.5 Gm OU Q4HR PRN Dry Eye(s) Nitroglycerin 0.4 mg 12/11/21 22:11 Nitroglycerin 0.4 Mg Tab Subl SL Q5M PRN Chest Pain Simple Syrup 15 ml 12/16/21 11:15 Simple Syrup 15 Ml FEEDTUBE PRN PRN Hypoglycemia Simple Syrup 30 ml 12/16/21 11:15 12/26/21 17:10 Simple Syrup 15 Ml FEEDTUBE 30 ml PRN PRN Administration Hypoglycemia Sodium Bicarbonate 325 mg 12/16/21 11:15 Sodium Bicarbonate 325 Mg Tab FEEDTUBE PRN PRN For Clogged Feeding Tube Sodium Chloride 10 ml 12/11/21 22:11 12/26/21 21:46 Sodium Chloride 0.9% 10 Ml Flush Syringe IV 10 ml PRN PRN Administration LINE FLUSH Vancomycin HCl 125 mg 12/25/21 15:00 12/27/21 09:19 Vancomycin 250 Mg/10 Ml Oral Liqd PO 125 mg Q6H KRISTA Administration Protocol
[2021-12-27] MEDS: carvediloL 6.25 MG TAB PO SCH ×2 (11:30→22:06)
[2021-12-27 12:41] LABS: Hepatitis B Surface Antigen Non-Reactive (Negative); Hepatitis C Virus Antibody Non-Reactive (NonReactive)
--- NOTE | 2021-12-27 13:32 | Progress Note ---
Assessment and Plan Septic shock Bacteremia with gram-positive cocci End-stage renal disease on dialysis Colitis Acute toxic metabolic encephalopathy Thrombocytopenia Non-ST elevation myocardial infarction A-Fib with RVR Hypertension Diabetes type 2 Anemia that is normocytic - continue prn BIPAP - C-diff assay negative - continue care as below otherwise; - continue wound care per RN / WCN - thrombocytopenia is improving (HIT assay negative) - continue to wean supplemental oxygen for target O2 sat's > 90% acutely - VAP bundle addressed - continue lung protective strategies - continue bronchodilators with pulmonary hygiene per RT - wean per pulmonary driven protocols otherwise - continue HD/UF for toxin and volume clearance - avoid nephrotoxins, renally dose all medications - continue to avoid benzodiazepine's, reduce the possibility of delirium - complete AB's per ID rec's (On Rocephin) - prn analgesia per pain score - Maintenance of sleep-wake cycle, avoid delirium - continue enteral nutritional support at goal rate as tolerated - G.I. & VTE prophylaxis - PT/OT/ROM exercises - continue mobility protocols for pressure ulcer prophylaxis - Monitor hemodynamics closely - continue other care per attending / other consultants - discharge planning ongoing concurrently .... Re-evaluate in am & prn Subjective Date of service: 12/27/21 Principal diagnosis: Septic shock ; Bacteremia; ESRD on dialysis; AMS; NSTEMI; HTN; DM II Interval history: Patient is seen today for: Septic shock ; gm +ve Bacteremia; ESRD on dialysis; AMS; NSTEMI; Hypertension; DM II Seen and examined at bedside; 24hour events reviewed; nursing and respiratory care staff consulted; no adverse overnight events reported to me; resting peacefully in bed; about to go for dialysis; denies acute chest pains or palpitations; no N/V/F/C Objective Vital Signs - 12hr 12/27/21 12/27/21 12/27/21 04:32 05:33 07:32 Temperature 97.5 F L 98.6 F Pulse Rate 85 86 Pulse Rate [ Anterior Bilateral Throughout] Pulse Rate [ From Monitor] Respiratory 18 18 Rate Respiratory Rate [Anterior Bilateral Throughout] Blood Pressure 141/59 141/59 Blood Pressure 110/51 [Right] O2 Sat by Pulse 100 100 Oximetry 12/27/21 12/27/21 12/27/21 08:00 08:46 10:00 Temperature Pulse Rate Pulse Rate [ 90 Anterior Bilateral Throughout] Pulse Rate [ 89 From Monitor] Respiratory 18 Rate Respiratory 18 Rate [Anterior Bilateral Throughout] Blood Pressure Blood Pressure [Right] O2 Sat by Pulse 93 96 Oximetry 12/27/21 12/27/21 10:54 11:00 Temperature 98.0 F Pulse Rate 86 89 Pulse Rate [ Anterior Bilateral Throughout] Pulse Rate [ From Monitor] Respiratory 18 Rate Respiratory Rate [Anterior Bilateral Throughout] Blood Pressure 115/67 Blood Pressure [Right] O2 Sat by Pulse 96 Oximetry Constitutional: no acute distress, other (elderly female with normal respiratory effort at rest) Eyes: non-icteric ENT: oropharynx moist, other (extubated) Neck: supple, no JVD Effort: normal Ascultation: Bilateral: rhonchi (scant) Percussion: Bilateral: not dull Cardiovascular: regular rate and rhythm Gastrointestinal: normoactive bowel sounds, soft, non-tender, non-distended (protuberant) Integumentary: rash (right groin / ? scar), other (Left upper extremity AV graft; right forearm blisters (open and closed) and induration; no pus) Extremities: no cyanosis, pulses normal, no ischemia or petechiae, edema (right upper extremity) Neurologic: non-focal exam (grossly), pupils equal and round, CN II-XII normal, motor strength normal and Psychiatric: mood appropriate, affect normal CBC and BMP: 12/27/21 04:00 12/27/21 04:00 ABG, PT/INR, D-dimer: ABG ABG pH 7.450 pH Units (7.350-7.450) 12/24/21 Unknown POC ABG pCO2 36.0 mmHg (32.0-48.0) 12/21/21 10:20 ABG pCO2 39.1 mm Hg 12/24/21 Unknown POC ABG pO2 126.1 mmHg (83-108) H 12/21/21 10:20 ABG pO2 109.1 mm Hg (80.0-90.0) H 12/24/21 Unknown POC ABG HCO3 24.3 12/21/21 10:20 ABG O2 Saturation 98.1 % (95.0-99.0) 12/24/21 Unknown PT/INR, D-dimer PT 17.7 Sec. (12.2-14.9) H 12/22/21 14:05 INR 1.30 (0.87-1.13) H 12/22/21 14:05 Abnormal lab findings: Abnormal Labs 12/11/21 12/11/21 12/12/21 14:52 15:40 04:43 WBC RBC 3.57 L Hgb 9.4 L Hct 29.5 L MCH 26 L 27 L RDW 17.8 H 17.9 H Plt Count 119 L 110 L Lymph % (Auto) 4.0 L [place] % (Auto) Lymph # (Auto) 0.3 L [place] # (Auto) Seg Neutrophils % 90.0 H Seg Neuts % (Manual) Lymphocytes % (Manual) Monocytes % (Manual) Nucleated RBC % Seg Neutrophils # Seg Neutrophils # Man Lymphocytes # (Manual) Percent Retic PT INR Fibrinogen ABG pH POC ABG pO2 ABG pO2 ABG HCO3 ABG O2 Saturation ABG Base Excess ABG Hemoglobin VBG pO2 Oxyhemoglobin Sodium Potassium Chloride Carbon Dioxide 18 L BUN 76 H Creatinine 9.2 H Glucose POC Glucose Lactic Acid Calcium 7.7 L Phosphorus Magnesium Iron TIBC Ferritin Alkaline Phosphatase 237 H Lactate Dehydrogenase Troponin T 0.168 H* C-Reactive Protein Total Protein Albumin 3.6 L LDL Cholesterol Direct 16 L Crossmatch 12/12/21 12/12/21 12/12/21 04:43 04:43 08:49 WBC RBC Hgb Hct MCH RDW Plt Count Lymph % (Auto) [place] % (Auto) Lymph # (Auto) [place] # (Auto) Seg Neutrophils % Seg Neuts % (Manual) Lymphocytes % (Manual) Monocytes % (Manual) Nucleated RBC % Seg Neutrophils # Seg Neutrophils # Man Lymphocytes # (Manual) Percent Retic PT INR Fibrinogen ABG pH POC ABG pO2 ABG pO2 ABG HCO3 ABG O2 Saturation ABG Base Excess ABG Hemoglobin VBG pO2 Oxyhemoglobin Sodium 136 L Potassium Chloride 96.0 L Carbon Dioxide BUN 85 H Creatinine 9.6 H Glucose 57 L POC Glucose 47 L Lactic Acid Calcium 7.8 L Phosphorus Magnesium Iron TIBC Ferritin Alkaline Phosphatase Lactate Dehydrogenase Troponin T 0.175 H* C-Reactive Protein Total Protein Albumin LDL Cholesterol Direct Crossmatch 12/12/21 12/13/21 12/13/21 11:12 07:30 07:30 WBC RBC Hgb 9.7 L Hct 30.0 L MCH 27 L RDW 18.0 H Plt Count 99 L Lymph % (Auto) 4.8 L [place] % (Auto) Lymph # (Auto) 0.3 L [place] # (Auto) Seg Neutrophils % 88.2 H Seg Neuts % (Manual) Lymphocytes % (Manual) Monocytes % (Manual) Nucleated RBC % Seg Neutrophils # Seg Neutrophils # Man Lymphocytes # (Manual) Percent Retic PT INR Fibrinogen ABG pH POC ABG pO2 ABG pO2 ABG HCO3 ABG O2 Saturation ABG Base Excess ABG Hemoglobin VBG pO2 Oxyhemoglobin Sodium Potassium 5.1 H Chloride 97.8 L Carbon Dioxide 16 L BUN 92 H Creatinine 10.6 H Glucose 121 H POC Glucose 64 L Lactic Acid Calcium 7.6 L Phosphorus Magnesium Iron TIBC Ferritin Alkaline Phosphatase Lactate Dehydrogenase Troponin T C-Reactive Protein Total Protein Albumin LDL Cholesterol Direct Crossmatch 12/13/21 12/13/21 12/13/21 08:06 11:32 16:59 WBC RBC Hgb Hct MCH RDW Plt Count Lymph % (Auto) [place] % (Auto) Lymph # (Auto) [place] # (Auto) Seg Neutrophils % Seg Neuts % (Manual) Lymphocytes % (Manual) Monocytes % (Manual) Nucleated RBC % Seg Neutrophils # Seg Neutrophils # Man Lymphocytes # (Manual) Percent Retic PT INR Fibrinogen ABG pH POC ABG pO2 ABG pO2 ABG HCO3 ABG O2 Saturation ABG Base Excess ABG Hemoglobin VBG pO2 Oxyhemoglobin Sodium Potassium Chloride Carbon Dioxide BUN Creatinine Glucose POC Glucose 118 H 128 H 130 H Lactic Acid Calcium Phosphorus Magnesium Iron TIBC Ferritin Alkaline Phosphatase Lactate Dehydrogenase Troponin T C-Reactive Protein Total Protein Albumin LDL Cholesterol Direct Crossmatch 12/13/21 12/14/21 12/14/21 20:16 11:10 11:10 WBC RBC Hgb 9.9 L Hct MCH 27 L RDW 18.1 H Plt Count 82 L Lymph % (Auto) 5.8 L [place] % (Auto) Lymph # (Auto) 0.4 L [place] # (Auto) Seg Neutrophils % 88.3 H Seg Neuts % (Manual) Lymphocytes % (Manual) Monocytes % (Manual) Nucleated RBC % Seg Neutrophils # Seg Neutrophils # Man Lymphocytes # (Manual) Percent Retic PT INR Fibrinogen ABG pH POC ABG pO2 ABG pO2 ABG HCO3 ABG O2 Saturation ABG Base Excess ABG Hemoglobin VBG pO2 Oxyhemoglobin Sodium Potassium Chloride Carbon Dioxide 21 L BUN 57 H Creatinine 7.1 H Glucose 105 H POC Glucose 113 H Lactic Acid Calcium Phosphorus Magnesium Iron TIBC Ferritin Alkaline Phosphatase Lactate Dehydrogenase Troponin T C-Reactive Protein Total Protein Albumin LDL Cholesterol Direct Crossmatch 12/14/21 12/14/21 12/15/21 11:46 16:41 04:11 WBC RBC Hgb 9.9 L Hct 30.0 L MCH 27 L RDW 18.4 H Plt Count 57 L Lymph % (Auto) [place] % (Auto) Lymph # (Auto) [place] # (Auto) Seg Neutrophils % Seg Neuts % (Manual) Lymphocytes % (Manual) 9.0 L Monocytes % (Manual) 10.0 H Nucleated RBC % Seg Neutrophils # Seg Neutrophils # Man Lymphocytes # (Manual) 0.6 L Percent Retic PT INR Fibrinogen ABG pH POC ABG pO2 ABG pO2 ABG HCO3 ABG O2 Saturation ABG Base Excess ABG Hemoglobin VBG pO2 Oxyhemoglobin Sodium Potassium Chloride Carbon Dioxide BUN Creatinine Glucose POC Glucose 108 H 111 H Lactic Acid Calcium Phosphorus Magnesium Iron TIBC Ferritin Alkaline Phosphatase Lactate Dehydrogenase Troponin T C-Reactive Protein Total Protein Albumin LDL Cholesterol Direct Crossmatch 12/15/21 12/15/21 12/15/21 04:11 08:48 10:02 WBC RBC Hgb Hct MCH RDW Plt Count Lymph % (Auto) [place] % (Auto) Lymph # (Auto) [place] # (Auto) Seg Neutrophils % Seg Neuts % (Manual) Lymphocytes % (Manual) Monocytes % (Manual) Nucleated RBC % Seg Neutrophils # Seg Neutrophils # Man Lymphocytes # (Manual) Percent Retic PT INR Fibrinogen ABG pH POC ABG pO2 ABG pO2 ABG HCO3 ABG O2 Saturation ABG Base Excess ABG Hemoglobin VBG pO2 Oxyhemoglobin Sodium Potassium Chloride Carbon Dioxide 19 L BUN 68 H Creatinine 7.6 H Glucose POC Glucose 68 L 65 L Lactic Acid Calcium 8.1 L Phosphorus Magnesium Iron TIBC Ferritin Alkaline Phosphatase Lactate Dehydrogenase Troponin T C-Reactive Protein Total Protein Albumin LDL Cholesterol Direct Crossmatch 12/15/21 12/15/21 12/15/21 10:20 10:51 14:40 WBC RBC Hgb Hct MCH RDW Plt Count Lymph % (Auto) [place] % (Auto) Lymph # (Auto) [place] # (Auto) Seg Neutrophils % Seg Neuts % (Manual) Lymphocytes % (Manual) Monocytes % (Manual) Nucleated RBC % Seg Neutrophils # Seg Neutrophils # Man Lymphocytes # (Manual) Percent Retic PT INR Fibrinogen ABG pH POC ABG pO2 ABG pO2 ABG HCO3 ABG O2 Saturation ABG Base Excess ABG Hemoglobin VBG pO2 Oxyhemoglobin Sodium Potassium Chloride Carbon Dioxide BUN Creatinine Glucose POC Glucose 59 L 60 L Lactic Acid 2.50 H* Calcium Phosphorus Magnesium Iron TIBC Ferritin Alkaline Phosphatase Lactate Dehydrogenase Troponin T C-Reactive Protein Total Protein Albumin LDL Cholesterol Direct Crossmatch 12/15/21 12/15/21 12/16/21 14:40 19:50 05:00 WBC 12.4 H RBC Hgb 9.6 L Hct 29.4 L MCH 26 L RDW 18.1 H Plt Count 40 L Lymph % (Auto) [place] % (Auto) Lymph # (Auto) [place] # (Auto) Seg Neutrophils % Seg Neuts % (Manual) 95.0 H Lymphocytes % (Manual) 5.0 L Monocytes % (Manual) Nucleated RBC % Seg Neutrophils # Seg Neutrophils # Man 11.8 H Lymphocytes # (Manual) 0.6 L Percent Retic PT INR Fibrinogen ABG pH POC ABG pO2 ABG pO2 463.3 H ABG HCO3 ABG O2 Saturation 99.6 H ABG Base Excess ABG Hemoglobin 10.9 L VBG pO2 > 258.0 H Oxyhemoglobin Sodium Potassium Chloride Carbon Dioxide BUN Creatinine Glucose POC Glucose Lactic Acid Calcium Phosphorus Magnesium Iron TIBC Ferritin Alkaline Phosphatase Lactate Dehydrogenase Troponin T C-Reactive Protein 38.50 H Total Protein Albumin LDL Cholesterol Direct Crossmatch 12/16/21 12/16/21 12/16/21 05:00 06:15 09:58 WBC RBC Hgb Hct MCH RDW Plt Count Lymph % (Auto) [place] % (Auto) Lymph # (Auto) [place] # (Auto) Seg Neutrophils % Seg Neuts % (Manual) Lymphocytes % (Manual) Monocytes % (Manual) Nucleated RBC % Seg Neutrophils # Seg Neutrophils # Man Lymphocytes # (Manual) Percent Retic PT INR Fibrinogen ABG pH POC ABG pO2 ABG pO2 48.0 L ABG HCO3 ABG O2 Saturation 80.5 L ABG Base Excess -2.9 L ABG Hemoglobin 11.2 L VBG pO2 Oxyhemoglobin 78.8 L Sodium Potassium Chloride Carbon Dioxide BUN 75 H Creatinine 7.7 H Glucose POC Glucose 67 L Lactic Acid Calcium 8.3 L Phosphorus Magnesium Iron TIBC Ferritin Alkaline Phosphatase Lactate Dehydrogenase Troponin T C-Reactive Protein Total Protein Albumin LDL Cholesterol Direct Crossmatch 12/16/21 12/16/21 12/17/21 11:06 23:24 04:00 WBC 12.3 H RBC 3.32 L Hgb 8.8 L Hct 26.5 L MCH 26 L RDW 18.0 H Plt Count 27 L Lymph % (Auto) 5.9 L [place] % (Auto) Lymph # (Auto) 0.7 L [place] # (Auto) Seg Neutrophils % 88.3 H Seg Neuts % (Manual) Lymphocytes % (Manual) Monocytes % (Manual) Nucleated RBC % Seg Neutrophils # 10.9 H Seg Neutrophils # Man Lymphocytes # (Manual) Percent Retic PT INR Fibrinogen ABG pH POC ABG pO2 ABG pO2 137.7 H ABG HCO3 ABG O2 Saturation ABG Base Excess ABG Hemoglobin 9.9 L VBG pO2 Oxyhemoglobin Sodium Potassium Chloride Carbon Dioxide BUN Creatinine Glucose POC Glucose 110 H Lactic Acid Calcium Phosphorus Magnesium Iron TIBC Ferritin Alkaline Phosphatase Lactate Dehydrogenase Troponin T C-Reactive Protein Total Protein Albumin LDL Cholesterol Direct Crossmatch 12/17/21 12/17/21 12/17/21 04:30 04:30 11:18 WBC RBC Hgb Hct MCH RDW Plt Count Lymph % (Auto) [place] % (Auto) Lymph # (Auto) [place] # (Auto) Seg Neutrophils % Seg Neuts % (Manual) Lymphocytes % (Manual) Monocytes % (Manual) Nucleated RBC % Seg Neutrophils # Seg Neutrophils # Man Lymphocytes # (Manual) Percent Retic PT INR Fibrinogen ABG pH POC ABG pO2 ABG pO2 ABG HCO3 ABG O2 Saturation ABG Base Excess ABG Hemoglobin VBG pO2 Oxyhemoglobin Sodium Potassium Chloride Carbon Dioxide BUN 43 H Creatinine 5.0 H Glucose 129 H POC Glucose 149 H Lactic Acid Calcium 7.8 L Phosphorus 1.90 L Magnesium 1.60 L Iron TIBC Ferritin Alkaline Phosphatase Lactate Dehydrogenase Troponin T C-Reactive Protein Total Protein Albumin LDL Cholesterol Direct Crossmatch 12/17/21 12/17/21 12/17/21 14:35 16:58 18:32 WBC RBC Hgb Hct MCH RDW Plt Count Lymph % (Auto) [place] % (Auto) Lymph # (Auto) [place] # (Auto) Seg Neutrophils % Seg Neuts % (Manual) Lymphocytes % (Manual) Monocytes % (Manual) Nucleated RBC % Seg Neutrophils # Seg Neutrophils # Man Lymphocytes # (Manual) Percent Retic PT 17.4 H INR 1.27 H Fibrinogen 486 H ABG pH 7.316 L POC ABG pO2 ABG pO2 74.0 L ABG HCO3 ABG O2 Saturation 93.7 L ABG Base Excess -3.3 L ABG Hemoglobin 8.8 L VBG pO2 Oxyhemoglobin 91.7 L Sodium Potassium Chloride Carbon Dioxide BUN Creatinine Glucose POC Glucose 219 H Lactic Acid Calcium Phosphorus Magnesium Iron TIBC Ferritin Alkaline Phosphatase Lactate Dehydrogenase Troponin T C-Reactive Protein Total Protein Albumin LDL Cholesterol Direct Crossmatch 12/17/21 12/18/21 12/18/21 23:19 05:00 05:00 WBC 15.3 H RBC 3.25 L Hgb 8.4 L Hct 25.7 L MCH 26 L RDW 18.2 H Plt Count 28 L Lymph % (Auto) [place] % (Auto) Lymph # (Auto) [place] # (Auto) Seg Neutrophils % Seg Neuts % (Manual) 99.0 H Lymphocytes % (Manual) 1.0 L Monocytes % (Manual) Nucleated RBC % 1.0 H Seg Neutrophils # Seg Neutrophils # Man 15.1 H Lymphocytes # (Manual) 0.2 L Percent Retic 0.37 L PT INR Fibrinogen ABG pH POC ABG pO2 ABG pO2 ABG HCO3 ABG O2 Saturation ABG Base Excess ABG Hemoglobin VBG pO2 Oxyhemoglobin Sodium 135 L Potassium Chloride Carbon Dioxide 20 L BUN 53 H Creatinine 5.2 H Glucose 307 H POC Glucose 313 H Lactic Acid Calcium 8.0 L Phosphorus Magnesium Iron 13 L TIBC 109 L Ferritin Alkaline Phosphatase Lactate Dehydrogenase Troponin T C-Reactive Protein Total Protein Albumin LDL Cholesterol Direct Crossmatch 12/18/21 12/18/21 12/18/21 05:00 05:00 09:00 WBC RBC Hgb Hct MCH RDW Plt Count Lymph % (Auto) [place] % (Auto) Lymph # (Auto) [place] # (Auto) Seg Neutrophils % Seg Neuts % (Manual) Lymphocytes % (Manual) Monocytes % (Manual) Nucleated RBC % Seg Neutrophils # Seg Neutrophils # Man Lymphocytes # (Manual) Percent Retic PT INR Fibrinogen 481 H ABG pH POC ABG pO2 ABG pO2 50.2 L ABG HCO3 ABG O2 Saturation 81.7 L ABG Base Excess -3.6 L ABG Hemoglobin 8.0 L VBG pO2 Oxyhemoglobin 80.0 L Sodium Potassium Chloride Carbon Dioxide BUN Creatinine Glucose POC Glucose Lactic Acid Calcium Phosphorus Magnesium Iron TIBC Ferritin 383.4 H Alkaline Phosphatase Lactate Dehydrogenase Troponin T C-Reactive Protein Total Protein Albumin LDL Cholesterol Direct Crossmatch 12/18/21 12/18/2122 10:56 11:10 12:00 WBC RBC Hgb Hct MCH RDW Plt Count Lymph % (Auto) [place] % (Auto) Lymph # (Auto) [place] # (Auto) Seg Neutrophils % Seg Neuts % (Manual) Lymphocytes % (Manual) Monocytes % (Manual) Nucleated RBC % Seg Neutrophils # Seg Neutrophils # Man Lymphocytes # (Manual) Percent Retic PT INR Fibrinogen ABG pH POC ABG pO2 ABG pO2 92.7 H ABG HCO3 19.8 L ABG O2 Saturation ABG Base Excess -3.8 L ABG Hemoglobin 6.6 L VBG pO2 Oxyhemoglobin Sodium Potassium Chloride Carbon Dioxide BUN Creatinine Glucose POC Glucose 190 H Lactic Acid Calcium Phosphorus 2.40 L D Magnesium Iron TIBC Ferritin Alkaline Phosphatase Lactate Dehydrogenase Troponin T C-Reactive Protein Total Protein Albumin LDL Cholesterol Direct Crossmatch 12/18/21 12/18/21 12/18/21 18:06 20:00 23:05 WBC 19.2 H RBC 3.51 L Hgb 8.8 L Hct 27.8 L MCH 25 L RDW 18.1 H Plt Count 34 L Lymph % (Auto) [place] % (Auto) Lymph # (Auto) [place] # (Auto) Seg Neutrophils % Seg Neuts % (Manual) Lymphocytes % (Manual) Monocytes % (Manual) Nucleated RBC % Seg Neutrophils # Seg Neutrophils # Man Lymphocytes # (Manual) Percent Retic PT INR Fibrinogen ABG pH POC ABG pO2 ABG pO2 62.5 L ABG HCO3 26.6 H ABG O2 Saturation 91.7 L ABG Base Excess ABG Hemoglobin 8.4 L VBG pO2 Oxyhemoglobin 89.9 L Sodium Potassium Chloride Carbon Dioxide BUN Creatinine Glucose POC Glucose 156 H Lactic Acid Calcium Phosphorus Magnesium Iron TIBC Ferritin Alkaline Phosphatase Lactate Dehydrogenase Troponin T C-Reactive Protein Total Protein Albumin LDL Cholesterol Direct Crossmatch 12/18/21 12/19/21 12/19/21 23:54 05:00 05:00 WBC 18.9 H RBC 3.29 L Hgb 8.4 L Hct 26.0 L MCH 26 L RDW 18.2 H Plt Count 34 L Lymph % (Auto) [place] % (Auto) Lymph # (Auto) [place] # (Auto) Seg Neutrophils % Seg Neuts % (Manual) 93.0 H Lymphocytes % (Manual) 2.0 L Monocytes % (Manual) Nucleated RBC % Seg Neutrophils # Seg Neutrophils # Man 17.6 H Lymphocytes # (Manual) 0.4 L Percent Retic PT INR Fibrinogen ABG pH POC ABG pO2 ABG pO2 ABG HCO3 ABG O2 Saturation ABG Base Excess ABG Hemoglobin VBG pO2 Oxyhemoglobin Sodium Potassium Chloride Carbon Dioxide BUN 30 H Creatinine 3.1 H Glucose 155 H POC Glucose 122 H Lactic Acid Calcium 8.2 L Phosphorus Magnesium Iron TIBC Ferritin Alkaline Phosphatase Lactate Dehydrogenase Troponin T C-Reactive Protein Total Protein Albumin LDL Cholesterol Direct Crossmatch 12/19/21 12/19/21 12/19/21 05:29 11:41 17:48 WBC RBC Hgb Hct MCH RDW Plt Count Lymph % (Auto) [place] % (Auto) Lymph # (Auto) [place] # (Auto) Seg Neutrophils % Seg Neuts % (Manual) Lymphocytes % (Manual) Monocytes % (Manual) Nucleated RBC % Seg Neutrophils # Seg Neutrophils # Man Lymphocytes # (Manual) Percent Retic PT INR Fibrinogen ABG pH POC ABG pO2 ABG pO2 ABG HCO3 ABG O2 Saturation ABG Base Excess ABG Hemoglobin VBG pO2 Oxyhemoglobin Sodium Potassium Chloride Carbon Dioxide BUN Creatinine Glucose POC Glucose 153 H 164 H 113 H Lactic Acid Calcium Phosphorus Magnesium Iron TIBC Ferritin Alkaline Phosphatase Lactate Dehydrogenase Troponin T C-Reactive Protein Total Protein Albumin LDL Cholesterol Direct Crossmatch 12/19/21 12/20/21 12/20/21 23:53 04:45 04:45 WBC 15.0 H RBC 3.39 L Hgb 8.4 L Hct 26.8 L MCH 25 L RDW 17.8 H Plt Count 36 L Lymph % (Auto) [place] % (Auto) Lymph # (Auto) [place] # (Auto) Seg Neutrophils % Seg Neuts % (Manual) Lymphocytes % (Manual) Monocytes % (Manual) Nucleated RBC % Seg Neutrophils # Seg Neutrophils # Man Lymphocytes # (Manual) Percent Retic PT INR Fibrinogen ABG pH POC ABG pO2 ABG pO2 ABG HCO3 ABG O2 Saturation ABG Base Excess ABG Hemoglobin VBG pO2 Oxyhemoglobin Sodium 135 L Potassium Chloride 96.1 L Carbon Dioxide BUN 48 H Creatinine 3.9 H Glucose 188 H POC Glucose 157 H Lactic Acid Calcium 8.1 L Phosphorus Magnesium Iron TIBC Ferritin Alkaline Phosphatase Lactate Dehydrogenase Troponin T C-Reactive Protein Total Protein Albumin LDL Cholesterol Direct Crossmatch 12/20/21 12/20/21 12/20/21 05:07 11:13 16:35 WBC RBC Hgb Hct MCH RDW Plt Count Lymph % (Auto) [place] % (Auto) Lymph # (Auto) [place] # (Auto) Seg Neutrophils % Seg Neuts % (Manual) Lymphocytes % (Manual) Monocytes % (Manual) Nucleated RBC % Seg Neutrophils # Seg Neutrophils # Man Lymphocytes # (Manual) Percent Retic PT INR Fibrinogen ABG pH POC ABG pO2 ABG pO2 ABG HCO3 ABG O2 Saturation ABG Base Excess ABG Hemoglobin VBG pO2 Oxyhemoglobin Sodium Potassium Chloride Carbon Dioxide BUN Creatinine Glucose POC Glucose 169 H 198 H 198 H Lactic Acid Calcium Phosphorus Magnesium Iron TIBC Ferritin Alkaline Phosphatase Lactate Dehydrogenase Troponin T C-Reactive Protein Total Protein Albumin LDL Cholesterol Direct Crossmatch 12/20/21 12/21/21 12/21/21 23:50 05:58 08:00 WBC 16.7 H RBC Hgb 9.3 L Hct 29.2 L MCH 25 L RDW 18.5 H Plt Count 62 L Lymph % (Auto) [place] % (Auto) Lymph # (Auto) [place] # (Auto) Seg Neutrophils % Seg Neuts % (Manual) Lymphocytes % (Manual) Monocytes % (Manual) Nucleated RBC % Seg Neutrophils # Seg Neutrophils # Man Lymphocytes # (Manual) Percent Retic PT INR Fibrinogen ABG pH POC ABG pO2 ABG pO2 ABG HCO3 ABG O2 Saturation ABG Base Excess ABG Hemoglobin VBG pO2 Oxyhemoglobin Sodium Potassium Chloride Carbon Dioxide BUN Creatinine Glucose POC Glucose 176 H 185 H Lactic Acid Calcium Phosphorus Magnesium Iron TIBC Ferritin Alkaline Phosphatase Lactate Dehydrogenase Troponin T C-Reactive Protein Total Protein Albumin LDL Cholesterol Direct Crossmatch 12/21/21 12/21/21 12/21/21 08:35 08:35 10:20 WBC RBC Hgb Hct MCH RDW Plt Count Lymph % (Auto) [place] % (Auto) Lymph # (Auto) [place] # (Auto) Seg Neutrophils % Seg Neuts % (Manual) Lymphocytes % (Manual) Monocytes % (Manual) Nucleated RBC % Seg Neutrophils # Seg Neutrophils # Man Lymphocytes # (Manual) Percent Retic PT 16.4 H INR 1.18 H Fibrinogen ABG pH POC ABG pO2 126.1 H ABG pO2 ABG HCO3 ABG O2 Saturation ABG Base Excess ABG Hemoglobin 11.1 L VBG pO2 Oxyhemoglobin Sodium Potassium 3.5 L Chloride Carbon Dioxide BUN 36 H Creatinine 2.7 H Glucose 174 H POC Glucose Lactic Acid Calcium 8.3 L Phosphorus Magnesium Iron TIBC Ferritin Alkaline Phosphatase Lactate Dehydrogenase 249 H Troponin T C-Reactive Protein Total Protein Albumin LDL Cholesterol Direct Crossmatch 12/21/21 12/21/21 12/21/21 11:18 17:14 18:00 WBC 20.2 H RBC Hgb 9.9 L Hct MCH 25 L RDW 18.0 H Plt Count 60 L Lymph % (Auto) [place] % (Auto) Lymph # (Auto) [place] # (Auto) Seg Neutrophils % Seg Neuts % (Manual) Lymphocytes % (Manual) Monocytes % (Manual) Nucleated RBC % Seg Neutrophils # Seg Neutrophils # Man Lymphocytes # (Manual) Percent Retic PT INR Fibrinogen ABG pH POC ABG pO2 ABG pO2 ABG HCO3 ABG O2 Saturation ABG Base Excess ABG Hemoglobin VBG pO2 Oxyhemoglobin Sodium Potassium Chloride Carbon Dioxide BUN Creatinine Glucose POC Glucose 181 H 222 H Lactic Acid Calcium Phosphorus Magnesium Iron TIBC Ferritin Alkaline Phosphatase Lactate Dehydrogenase Troponin T C-Reactive Protein Total Protein Albumin LDL Cholesterol Direct Crossmatch 12/21/21 12/21/21 12/22/21 19:26 23:28 04:14 WBC 23.9 H RBC Hgb Hct MCH 25 L RDW 17.8 H Plt Count 68 L Lymph % (Auto) [place] % (Auto) Lymph # (Auto) [place] # (Auto) Seg Neutrophils % Seg Neuts % (Manual) Lymphocytes % (Manual) Monocytes % (Manual) Nucleated RBC % Seg Neutrophils # Seg Neutrophils # Man Lymphocytes # (Manual) Percent Retic PT INR Fibrinogen ABG pH POC ABG pO2 ABG pO2 ABG HCO3 ABG O2 Saturation ABG Base Excess ABG Hemoglobin VBG pO2 Oxyhemoglobin Sodium Potassium Chloride Carbon Dioxide BUN Creatinine Glucose POC Glucose 214 H 260 H Lactic Acid Calcium Phosphorus Magnesium Iron TIBC Ferritin Alkaline Phosphatase Lactate Dehydrogenase Troponin T C-Reactive Protein Total Protein Albumin LDL Cholesterol Direct Crossmatch 12/22/21 12/22/21 12/22/21 04:14 05:28 11:12 WBC RBC Hgb Hct MCH RDW Plt Count Lymph % (Auto) [place] % (Auto) Lymph # (Auto) [place] # (Auto) Seg Neutrophils % Seg Neuts % (Manual) Lymphocytes % (Manual) Monocytes % (Manual) Nucleated RBC % Seg Neutrophils # Seg Neutrophils # Man Lymphocytes # (Manual) Percent Retic PT INR Fibrinogen ABG pH POC ABG pO2 ABG pO2 ABG HCO3 ABG O2 Saturation ABG Base Excess ABG Hemoglobin VBG pO2 Oxyhemoglobin Sodium 136 L Potassium 3.0 L Chloride Carbon Dioxide BUN 52 H Creatinine 3.5 H Glucose 202 H POC Glucose 223 H 191 H Lactic Acid Calcium 8.1 L Phosphorus Magnesium Iron TIBC Ferritin Alkaline Phosphatase Lactate Dehydrogenase Troponin T C-Reactive Protein Total Protein Albumin LDL Cholesterol Direct Crossmatch 12/22/21 12/22/21 12/23/21 14:05 17:57 04:39 WBC 21.1 H RBC Hgb 10.0 L Hct MCH 26 L RDW 17.6 H Plt Count 79 L Lymph % (Auto) [place] % (Auto) Lymph # (Auto) [place] # (Auto) Seg Neutrophils % Seg Neuts % (Manual) Lymphocytes % (Manual) Monocytes % (Manual) Nucleated RBC % Seg Neutrophils # Seg Neutrophils # Man Lymphocytes # (Manual) Percent Retic PT 17.7 H INR 1.30 H Fibrinogen ABG pH POC ABG pO2 ABG pO2 ABG HCO3 ABG O2 Saturation ABG Base Excess ABG Hemoglobin VBG pO2 Oxyhemoglobin Sodium Potassium Chloride Carbon Dioxide BUN Creatinine Glucose POC Glucose 140 H Lactic Acid Calcium Phosphorus Magnesium Iron TIBC Ferritin Alkaline Phosphatase Lactate Dehydrogenase Troponin T C-Reactive Protein Total Protein Albumin LDL Cholesterol Direct Crossmatch 12/23/21 12/23/21 12/23/21 04:39 05:11 11:44 WBC RBC Hgb Hct MCH RDW Plt Count Lymph % (Auto) [place] % (Auto) Lymph # (Auto) [place] # (Auto) Seg Neutrophils % Seg Neuts % (Manual) Lymphocytes % (Manual) Monocytes % (Manual) Nucleated RBC % Seg Neutrophils # Seg Neutrophils # Man Lymphocytes # (Manual) Percent Retic PT INR Fibrinogen ABG pH POC ABG pO2 ABG pO2 ABG HCO3 ABG O2 Saturation ABG Base Excess ABG Hemoglobin VBG pO2 Oxyhemoglobin Sodium 136 L Potassium Chloride Carbon Dioxide 19 L BUN 61 H Creatinine 4.5 H Glucose 113 H POC Glucose 109 H 132 H Lactic Acid Calcium 7.9 L Phosphorus 4.90 H Magnesium Iron TIBC Ferritin Alkaline Phosphatase Lactate Dehydrogenase Troponin T C-Reactive Protein Total Protein Albumin LDL Cholesterol Direct Crossmatch 12/23/21 12/23/21 12/23/21 14:05 16:20 16:59 WBC RBC Hgb 9.3 L Hct 28.7 L MCH RDW Plt Count Lymph % (Auto) [place] % (Auto) Lymph # (Auto) [place] # (Auto) Seg Neutrophils % Seg Neuts % (Manual) Lymphocytes % (Manual) Monocytes % (Manual) Nucleated RBC % Seg Neutrophils # Seg Neutrophils # Man Lymphocytes # (Manual) Percent Retic PT INR Fibrinogen ABG pH POC ABG pO2 ABG pO2 ABG HCO3 ABG O2 Saturation ABG Base Excess ABG Hemoglobin VBG pO2 Oxyhemoglobin Sodium Potassium Chloride Carbon Dioxide BUN Creatinine Glucose POC Glucose 180 H Lactic Acid Calcium Phosphorus Magnesium Iron TIBC Ferritin Alkaline Phosphatase Lactate Dehydrogenase Troponin T C-Reactive Protein Total Protein Albumin LDL Cholesterol Direct Crossmatch See Detail 12/23/21 12/23/21 12/24/21 21:44 23:30 03:45 WBC RBC Hgb Hct MCH RDW Plt Count Lymph % (Auto) [place] % (Auto) Lymph # (Auto) [place] # (Auto) Seg Neutrophils % Seg Neuts % (Manual) Lymphocytes % (Manual) Monocytes % (Manual) Nucleated RBC % Seg Neutrophils # Seg Neutrophils # Man Lymphocytes # (Manual) Percent Retic PT INR Fibrinogen ABG pH POC ABG pO2 ABG pO2 ABG HCO3 ABG O2 Saturation ABG Base Excess ABG Hemoglobin VBG pO2 Oxyhemoglobin Sodium Potassium Chloride Carbon Dioxide BUN Creatinine Glucose POC Glucose 141 H 146 H 199 H Lactic Acid Calcium Phosphorus Magnesium Iron TIBC Ferritin Alkaline Phosphatase Lactate Dehydrogenase Troponin T C-Reactive Protein Total Protein Albumin LDL Cholesterol Direct Crossmatch 12/24/21 12/24/21 12/24/21 06:00 06:00 12:37 WBC 16.8 H RBC 2.96 L Hgb 7.5 L Hct 23.3 L MCH 26 L RDW 17.8 H Plt Count 89 L Lymph % (Auto) [place] % (Auto) Lymph # (Auto) [place] # (Auto) Seg Neutrophils % Seg Neuts % (Manual) Lymphocytes % (Manual) Monocytes % (Manual) Nucleated RBC % Seg Neutrophils # Seg Neutrophils # Man Lymphocytes # (Manual) Percent Retic PT INR Fibrinogen ABG pH POC ABG pO2 ABG pO2 ABG HCO3 ABG O2 Saturation ABG Base Excess ABG Hemoglobin VBG pO2 Oxyhemoglobin Sodium Potassium 3.3 L Chloride 97.3 L Carbon Dioxide BUN 31 H Creatinine 2.8 H Glucose 208 H POC Glucose 181 H Lactic Acid Calcium 7.6 L Phosphorus Magnesium Iron TIBC Ferritin Alkaline Phosphatase Lactate Dehydrogenase Troponin T C-Reactive Protein Total Protein Albumin LDL Cholesterol Direct Crossmatch 05/07/0712/24/21 12/24/21 14:00 17:23 21:50 WBC RBC Hgb 7.4 L 8.8 L Hct 22.0 L 25.9 L MCH RDW Plt Count Lymph % (Auto) [place] % (Auto) Lymph # (Auto) [place] # (Auto) Seg Neutrophils % Seg Neuts % (Manual) Lymphocytes % (Manual) Monocytes % (Manual) Nucleated RBC % Seg Neutrophils # Seg Neutrophils # Man Lymphocytes # (Manual) Percent Retic PT INR Fibrinogen ABG pH POC ABG pO2 ABG pO2 ABG HCO3 ABG O2 Saturation ABG Base Excess ABG Hemoglobin VBG pO2 Oxyhemoglobin Sodium Potassium Chloride Carbon Dioxide BUN Creatinine Glucose POC Glucose 167 H Lactic Acid Calcium Phosphorus Magnesium Iron TIBC Ferritin Alkaline Phosphatase Lactate Dehydrogenase Troponin T C-Reactive Protein Total Protein Albumin LDL Cholesterol Direct Crossmatch 12/24/21 12/24/21 12/25/21 23:54 Unknown 05:12 WBC 17.4 H RBC 3.10 L Hgb 8.3 L Hct 24.7 L MCH 27 L RDW 17.7 H Plt Count 105 L Lymph % (Auto) [place] % (Auto) Lymph # (Auto) [place] # (Auto) Seg Neutrophils % Seg Neuts % (Manual) Lymphocytes % (Manual) Monocytes % (Manual) Nucleated RBC % Seg Neutrophils # Seg Neutrophils # Man Lymphocytes # (Manual) Percent Retic PT INR Fibrinogen ABG pH POC ABG pO2 ABG pO2 109.1 H ABG HCO3 26.6 H ABG O2 Saturation ABG Base Excess ABG Hemoglobin 6.8 L VBG pO2 Oxyhemoglobin Sodium Potassium Chloride Carbon Dioxide BUN Creatinine Glucose POC Glucose 174 H Lactic Acid Calcium Phosphorus Magnesium Iron TIBC Ferritin Alkaline Phosphatase Lactate Dehydrogenase Troponin T C-Reactive Protein Total Protein Albumin LDL Cholesterol Direct Crossmatch 12/25/21 12/25/21 12/25/21 05:12 05:27 11:08 WBC RBC Hgb Hct MCH RDW Plt Count Lymph % (Auto) [place] % (Auto) Lymph # (Auto) [place] # (Auto) Seg Neutrophils % Seg Neuts % (Manual) Lymphocytes % (Manual) Monocytes % (Manual) Nucleated RBC % Seg Neutrophils # Seg Neutrophils # Man Lymphocytes # (Manual) Percent Retic PT INR Fibrinogen ABG pH POC ABG pO2 ABG pO2 ABG HCO3 ABG O2 Saturation ABG Base Excess ABG Hemoglobin VBG pO2 Oxyhemoglobin Sodium Potassium 3.5 L Chloride Carbon Dioxide BUN 38 H Creatinine 3.7 H Glucose 201 H POC Glucose 202 H 185 H Lactic Acid Calcium 8.0 L Phosphorus Magnesium Iron TIBC Ferritin Alkaline Phosphatase Lactate Dehydrogenase Troponin T C-Reactive Protein Total Protein Albumin LDL Cholesterol Direct Crossmatch 12/25/21 12/25/21 12/25/21 12:23 16:45 22:36 WBC RBC Hgb Hct MCH RDW Plt Count Lymph % (Auto) [place] % (Auto) Lymph # (Auto) [place] # (Auto) Seg Neutrophils % Seg Neuts % (Manual) Lymphocytes % (Manual) Monocytes % (Manual) Nucleated RBC % Seg Neutrophils # Seg Neutrophils # Man Lymphocytes # (Manual) Percent Retic PT INR Fibrinogen ABG pH POC ABG pO2 ABG pO2 ABG HCO3 ABG O2 Saturation ABG Base Excess ABG Hemoglobin VBG pO2 Oxyhemoglobin Sodium Potassium Chloride Carbon Dioxide BUN Creatinine Glucose POC Glucose 165 H 109 H 133 H Lactic Acid Calcium Phosphorus Magnesium Iron TIBC Ferritin Alkaline Phosphatase Lactate Dehydrogenase Troponin T C-Reactive Protein Total Protein Albumin LDL Cholesterol Direct Crossmatch 12/26/21 12/26/21 12/26/21 11:19 16:03 17:56 WBC RBC Hgb Hct MCH RDW Plt Count Lymph % (Auto) [place] % (Auto) Lymph # (Auto) [place] # (Auto) Seg Neutrophils % Seg Neuts % (Manual) Lymphocytes % (Manual) Monocytes % (Manual) Nucleated RBC % Seg Neutrophils # Seg Neutrophils # Man Lymphocytes # (Manual) Percent Retic PT INR Fibrinogen ABG pH POC ABG pO2 ABG pO2 ABG HCO3 ABG O2 Saturation ABG Base Excess ABG Hemoglobin VBG pO2 Oxyhemoglobin Sodium Potassium Chloride Carbon Dioxide BUN Creatinine Glucose POC Glucose 59 L 41 L 51 L Lactic Acid Calcium Phosphorus Magnesium Iron TIBC Ferritin Alkaline Phosphatase Lactate Dehydrogenase Troponin T C-Reactive Protein Total Protein Albumin LDL Cholesterol Direct Crossmatch 12/26/21 12/26/21 12/26/21 19:19 23:15 Unknown WBC 14.2 H RBC 3.14 L Hgb 8.5 L Hct 25.1 L MCH 27 L RDW 17.4 H Plt Count 119 L Lymph % (Auto) 8.0 L [place] % (Auto) 8.9 H Lymph # (Auto) 1.1 L [place] # (Auto) 1.3 H Seg Neutrophils % 81.7 H Seg Neuts % (Manual) Lymphocytes % (Manual) Monocytes % (Manual) Nucleated RBC % Seg Neutrophils # 11.6 H Seg Neutrophils # Man Lymphocytes # (Manual) Percent Retic PT INR Fibrinogen ABG pH POC ABG pO2 ABG pO2 ABG HCO3 ABG O2 Saturation ABG Base Excess ABG Hemoglobin VBG pO2 Oxyhemoglobin Sodium Potassium Chloride Carbon Dioxide BUN Creatinine Glucose POC Glucose 110 H 127 H Lactic Acid Calcium Phosphorus Magnesium Iron TIBC Ferritin Alkaline Phosphatase Lactate Dehydrogenase Troponin T C-Reactive Protein Total Protein Albumin LDL Cholesterol Direct Crossmatch 12/27/21 12/27/21 12/27/21 04:00 04:00 05:18 WBC RBC 2.81 L Hgb 7.7 L Hct 22.6 L MCH 27 L RDW 18.0 H Plt Count 120 L Lymph % (Auto) [place] % (Auto) Lymph # (Auto) [place] # (Auto) Seg Neutrophils % Seg Neuts % (Manual) Lymphocytes % (Manual) Monocytes % (Manual) Nucleated RBC % Seg Neutrophils # Seg Neutrophils # Man Lymphocytes # (Manual) Percent Retic PT INR Fibrinogen ABG pH POC ABG pO2 ABG pO2 ABG HCO3 ABG O2 Saturation ABG Base Excess ABG Hemoglobin VBG pO2 Oxyhemoglobin Sodium Potassium Chloride Carbon Dioxide BUN 39 H Creatinine 3.7 H Glucose 147 H POC Glucose 130 H Lactic Acid Calcium 8.0 L Phosphorus Magnesium Iron TIBC Ferritin Alkaline Phosphatase 222 H Lactate Dehydrogenase Troponin T C-Reactive Protein Total Protein 5.9 L Albumin 1.7 L LDL Cholesterol Direct Crossmatch 12/27/21 10:59 WBC RBC Hgb Hct MCH RDW Plt Count Lymph % (Auto) [place] % (Auto) Lymph # (Auto) [place] # (Auto) Seg Neutrophils % Seg Neuts % (Manual) Lymphocytes % (Manual) Monocytes % (Manual) Nucleated RBC % Seg Neutrophils # Seg Neutrophils # Man Lymphocytes # (Manual) Percent Retic PT INR Fibrinogen ABG pH POC ABG pO2 ABG pO2 ABG HCO3 ABG O2 Saturation ABG Base Excess ABG Hemoglobin VBG pO2 Oxyhemoglobin Sodium Potassium Chloride Carbon Dioxide BUN Creatinine Glucose POC Glucose 182 H Lactic Acid Calcium Phosphorus Magnesium Iron TIBC Ferritin Alkaline Phosphatase Lactate Dehydrogenase Troponin T C-Reactive Protein Total Protein Albumin LDL Cholesterol Direct Crossmatch Allied health notes reviewed: nursing
[2021-12-27] MEDS: ACETAMINOPHEN 325 MG/10.15 ML ORAL LIQD UNIT DOSE FEEDTUBE PRN (14:22)
[2021-12-27] MEDS: ceFAZolin/NS 1 GM/50 ML 1 GM/50 ML BAG IV SCH (19:00)
[2021-12-27] MEDS: levETIRAcetam 500 MG/5 ML ORAL LIQD FEEDTUBE SCH (19:00)
[2021-12-28] MEDS: INSULIN LISPRO 100 UNIT/ML SUB-Q SCH ×4 (00:06→17:12)
[2021-12-28] MEDS: VANCOMYCIN 250 MG/10 ML ORAL LIQD PO SCH ×4 (02:03→21:24)
[2021-12-28] MEDS: ISOSORB DINIT/HYDRALAZINE 20-37.5MG TAB PO SCH ×3 (06:00→21:24)
--- NOTE | 2021-12-28 08:26 | Progress Note ---
Subjective Principal diagnosis: Septic shock ; Bacteremia; ESRD on dialysis; AMS; NSTEMI; HTN; DM II Interval history: Patient was seen today for follow-up of multiple renal related issueS She is resting comfortably in bed no acute distress Events of 24 hours vitals labs intake output medications were reviewed Past medical history: Reviewed Family history: Reviewed Social history: Reviewed Allergies: Reviewed Physical examination: Vitals: Reviewed HEENT: No pallor or icterus oral mucosa moist Neck: Supple no JVD no thyromegaly Chest: Bilateral clear to auscultation anteriorly Heart: Regular rate and rhythm S1-S2 heard no S3-S4 Abdomen: Soft nontender no voluntary guarding rigidity rebound Extremity: Dry skin less than 1+ peripheral edema Psychiatric: No evidence of agitation and aggression noted Dermatology: No petechial rashes Labs and x-rays: Reviewed from today Assessment and plan #End-stage kidney disease: Patient will continue to see hemodialysis treatment 3 times a week will continue on Wednesday and Wednesday Monitor dialysis related labs/monitor for any access issues Fluid restriction 1200 cc/day high-protein diet #Access: Needs to be seen and followed by vascular surgery Permacath was removed due to infection fistula is working well but patient does have swelling #Septic shock echocardiogram did not show any evidence of vegetations, ID following Permacath was removed, admitted with septic shock with gram-positive bacteremia was admitted in ICU with encephalopathy non-ST elevation [place] atrial fibrillation with rapid ventricular response, s/p fall at home #Hypertension and volume: To monitor and follow #Anemia in end-stage kidney disease: To monitor and follow erythropoietin periodically goal hemoglobin between 05-26-08/17 Thrombocytopenia: HIT negative We will check dialysis related labs periodically, We'll continue to follow and make recommendation for renal standpoint Objective - Vital Signs Vital signs: Vital Signs - 12hr 12/27/21 12/27/21 12/27/21 21:04 21:05 22:00 Temperature Pulse Rate 80 Pulse Rate [ 80 Anterior Bilateral Throughout] Pulse Rate [ 89 From Monitor] Respiratory 18 Rate Respiratory 16 Rate [Anterior Bilateral Throughout] Blood Pressure O2 Sat by Pulse 100 96 Oximetry 12/27/21 12/27/21 12/27/21 22:05 22:06 23:20 Temperature 98.6 F Pulse Rate 80 80 85 Pulse Rate [ Anterior Bilateral Throughout] Pulse Rate [ From Monitor] Respiratory 18 Rate Respiratory Rate [Anterior Bilateral Throughout] Blood Pressure 181/78 181/78 149/69 O2 Sat by Pulse 98 Oximetry 12/28/21 12/28/21 12/28/21 04:26 06:00 07:51 Temperature 98.6 F 98.2 F Pulse Rate 77 77 78 Pulse Rate [ Anterior Bilateral Throughout] Pulse Rate [ From Monitor] Respiratory 18 18 Rate Respiratory Rate [Anterior Bilateral Throughout] Blood Pressure 122/64 122/64 121/44 O2 Sat by Pulse 97 99 Oximetry - Lab 12/27/21 04:00 12/27/21 04:00 Most recent lab results ABG pH 7.450 pH Units (7.350-7.450) 12/24/21 Unknown ABG pCO2 39.1 mm Hg 12/24/21 Unknown ABG pO2 109.1 mm Hg (80.0-90.0) H 12/24/21 Unknown ABG HCO3 26.6 mmol/L (20.0-26.0) H 12/24/21 Unknown ABG O2 Saturation 98.1 % (95.0-99.0) 12/24/21 Unknown Calcium 8.0 mg/dL (8.4-10.2) L 12/27/21 04:00 Phosphorus 4.90 mg/dL (2.5-4.5) H 12/23/21 04:39 Magnesium 1.90 mg/dL (1.7-2.3) 12/23/21 04:39 Medications & Allergies - Medications Allergies/Adverse Reactions: Allergies No Known Allergies Allergy (Verified 12/11/21 22:19) Home Medications: Home Medications Medication Instructions Recorded Confirmed Last Taken Type Albuterol Sulfate [Proair 2 puff IH Q6HR PRN 11/23/21 12/14/21 Unknown History Digihaler] Calcium Acetate 2 tab PO TID 11/23/21 12/14/21 Unknown History Fluticasone/Umeclidin/Vilanter 1 each IH DAILY 11/23/21 12/14/21 Unknown History [Trelegy Ellipta 100-62.5-25] Furosemide [Lasix TAB] 40 mg PO QDAY 11/23/21 12/14/21 Unknown History Insulin Aspart (Nf) [NovoLOG 55 unit SQ TID 11/23/21 12/14/21 Unknown History Flexpen] Insulin Glargine [Lantus VIAL] 25 units SQ QHS 11/23/21 12/14/21 Unknown History Omeprazole 20 mg PO DAILY 11/23/21 12/14/21 Unknown History Spironolactone [Aldactone] 100 mg PO QDAY 11/23/21 12/14/21 Unknown History lisinopriL [Lisinopril] 20 mg PO BID 11/23/21 12/14/21 12/06/21 History 500 MG Docusate Sodium [Colace CAP] 100 mg PO BID PRN #60 capsule 11/24/21 12/14/21 Unknown Rx Aspirin EC [Halfprin EC] 81 mg PO DAILY 90 Days #90 tablet 11/26/21 12/14/21 Unknown Rx Aspirin [Adult Aspirin] 81 mg PO DAILY 90 Days #90 tab 11/26/21 12/14/21 Unknown Rx ISOSORBIDE MONOnitrate [Imdur ER] 60 mg PO QDAY 90 Days #90 tab 11/26/21 2 Unknown Rx Sevelamer Carbonate [Renvela] 800 mg PO TIDWM 90 Days #270 tab 11/26/21 12/14/21 Unknown Rx amLODIPine 10 mg PO DAILY 90 Days #90 tab 11/26/21 12/14/21 Unknown Rx carvediloL [Coreg] 25 mg PO BID 90 Days #180 tab 11/26/21 12/14/21 Unknown Rx Atorvastatin Calcium [Lipitor] 80 mg PO QHS 90 Days #90 tab 11/27/21 12/14/21 Unknown Rx levETIRAcetam [Keppra TAB] 500 mg PO 3XW 12/14/21 12/14/21 12/06/21 History 500 MG Active Medications: Generic Name Dose Route Start Last Admin Trade Name Freq PRN Reason Stop Dose Admin Acetaminophen 650 mg 12/13/21 23:00 12/13/21 23:18 Acetaminophen 650 Mg Rect Supp [place] 650 mg Q4H PRN Administration Pain, Mild (1-3) Acetaminophen 650 mg 12/24/21 14:02 12/27/21 14:22 Acetaminophen 325 Mg/10.15 Ml Oral Liqd Unit Dose FEEDTUBE 650 mg Q6H PRN Administration Pain, Mild (1-3) Albuterol 2.5 mg 12/11/21 22:14 Albuterol 2.5 Mg/3 Ml Nebu IH Q6HR PRN Wheezing Albuterol/Ipratropium 1 ampul 12/14/21 08:00 12/27/21 21:07 Ipratropium/Albuterol Sulfate 3 Ml Ampul.Neb IH 1 ampul TIDRT KRISTA Administration Lipase/Protease/Amylase 1 each 12/16/21 11:15 Lipase 10,500/Protease 25,000/Amylase 43,750 (Units) Dr Blanco FEEDTUBE PRN PRN For Clogged Feeding Tube Atorvastatin Calcium 80 mg 12/15/21 22:00 12/27/21 22:05 Atorvastatin 40 Mg Tab FEEDTUBE 80 mg QHS KRISTA Administration Budesonide 0.5 mg 12/13/21 08:00 12/27/21 21:06 Budesonide 0.5 Mg/2 Ml Nebu IH 0.5 mg Q12HRT KRISTA Administration Carvedilol 6.25 mg 12/26/21 10:00 12/27/21 22:06 Carvedilol 6.25 Mg Tab PO 6.25 mg BID KRISTA Administration Dextrose 50 ml 12/11/21 22:23 12/26/21 18:12 Dextrose 50% In Water (25gm) 50 Ml Syringe IV 20 ml Q30MIN PRN Administration Hypoglycemia Protocol Guaifenesin 10 ml 12/27/21 05:30 12/27/21 05:54 Guaifenesin Dm 200/20 Mg Oral Liqd 10 Ml PO 10 ml Q4H PRN Administration Cough Haloperidol Lactate 2.5 mg 12/25/21 11:37 12/28/21 01:35 Haloperidol Lactate 5 Mg/1 Ml Inj IV 2.5 mg Q6H PRN Administration Agitation Hydrophilic Ointment 1 applic 12/16/21 14:30 Lip Therapy Vaseline TP Q2HR PRN Dry Lips Sodium Chloride 100 mls @ 999 mls/hr 12/12/21 12:00 Nacl 0.9% IV ABEL PRN Hypotension Cefazolin Sodium 1 gm in 50 mls @ 100 mls/hr 12/26/21 18:00 12/27/21 19:00 Ancef/Ns 1 Gm/50 Ml IV 12/29/21 17:59 100 mls/hr QPM KRISTA Administration Protocol Insulin Human Lispro 0 unit 12/15/21 12:00 12/28/21 06:19 Insulin Lispro 100 Unit/Ml SUB-Q Not Given Q6HR [facility] Protocol Isosorbide Dinitrate/Hydralazine 1 each 12/26/21 10:00 12/28/21 06:00 Isosorb Dinit/Hydralazine 20-37.5mg Tab PO 1 each Q8HR KRISTA Administration Lansoprazole 30 mg 12/25/21 10:00 12/27/21 09:19 Lansoprazole 30 Mg Solutab FEEDTUBE 30 mg QDAY KRISTA Administration Levetiracetam 500 mg 12/16/21 18:00 12/27/21 19:00 Levetiracetam 500 Mg/5 Ml Oral Liqd FEEDTUBE 500 mg TuThSa [facility] Administration Midodrine 5 mg 12/24/21 12:00 12/27/21 18:11 Midodrine 5 Mg Tab FEEDTUBE Not Given TID@0800,1200,1600 [facility] Multi-Ingred Cream/Lotion/Oil/Oint 1 applic 12/16/21 14:10 Mineral Oil/Petrolatum, White Ophth Oint 3.5 Gm OU Q4HR PRN Dry Eye(s) Nitroglycerin 0.4 mg 12/11/21 22:11 Nitroglycerin 0.4 Mg Tab Subl SL Q5M PRN Chest Pain Simple Syrup 15 ml 12/16/21 11:15 Simple Syrup 15 Ml FEEDTUBE PRN PRN Hypoglycemia Simple Syrup 30 ml 12/16/21 11:15 12/26/21 17:10 Simple Syrup 15 Ml FEEDTUBE 30 ml PRN PRN Administration Hypoglycemia Sodium Bicarbonate 325 mg 12/16/21 11:15 Sodium Bicarbonate 325 Mg Tab FEEDTUBE PRN PRN For Clogged Feeding Tube Sodium Chloride 10 ml 12/11/21 22:11 12/27/21 22:07 Sodium Chloride 0.9% 10 Ml Flush Syringe IV 10 ml PRN PRN Administration LINE FLUSH Vancomycin HCl 125 mg 12/25/21 15:00 12/28/21 02:03 Vancomycin 250 Mg/10 Ml Oral Liqd PO 125 mg Q6H KRISTA Administration Protocol
--- NOTE | 2021-12-28 08:33 | Progress Note ---
Assessment and Plan Assessment and plan: This is a 66-year-old female with known past medical history of ESRD on HD, HTN, heart-attack, and GERD initially admitted to the floor s/p fall at home. Patient was transferred to the ICU due to septic shock 09/17 GPC bacteremia requiring vasopressor. Hospital Course to Date: 12/12: No acute events overnight, reports extreme pain in her right leg, denies chest pain or shortness of breath 12/13: No acute events overnight, patient tearful and complaining of right leg pain however she is refusing analgesic medication 12/14: Continues to have right leg pain, does not participate in interview 12/15: Patient transferred to the ICU for hypotension on Levophed drip however she was weaned off by morning and midodrine was increased due to borderline MAP. Blood cultures grew 11/17 gram-positive cocci with suspected right upper chest permacath source. Patient started on vancomycin and infectious disease consulted. Plan for IR consult for permacath removal and assessment of aVF functioning. Possible temporary Vas-Cath placement for hemodialysis. Patient is encephalopathic likely secondary to sepsis. Continue current antibiotics and repeat 2D echo and blood cultures in the a.m. Right upper extremity swelling and pain noted and right upper extremity XR and Doppler ordered. 12/16: Patient noted to have blisters on left arm and RN asked to elevate and place cool compresses to site. AV fistula on left upper extremity access by hemodialysis nurse and hemodialysis ongoing. Vasopressin ordered in efforts to wean Levophed while on hemodialysis. Echocardiogram repeated. Blood cultures grew beta-hemolytic strep group B and antibiotics changed to ceftriaxone. Dobutamine drip discontinued. Remained sedated on fentanyl drip. 12/17: Thrombocytopenia worse today, unable to tolerate being off vasopressin, started on steroids, HIT assay ordered-discontinued. SCDs for now. [facility] will like to give normal saline 100 ml/hr for 2 L. 12/18: Wound care consult placed for right upper extremity, PSV trials today, weaning Levophed, dialysis planned for today. Hematology/oncology consulted yesterday who recommends twice daily Solu-Medrol. No acute events reported overnight. Patient will be started on IV iron 12/19: PSV today, mentation better and intermittently follows commands. Platelets stable. Reglan started for vomiting and will slowly increase TF. KUB with no acute process. 12/20: PSV today, mentation unchanged, CTH without acute findings, Platelets remains stable with no signs of bleeding, high residuals reported overnight and TF was off from approximately 1155-0039. TF resumed around 0400 at currently at 20/hr. RN to increase as tolerated. [facility] plans extubation Wednesday. HD today. Will keep femoral line for now in setting of low plts 12/21: Patient had moderate BM today with bright red and dark red blood->CBC pending, coags, LDH ordered, GI consulted and Dr. Lambert alerted. PSV again today. Patient is still intermittently following commands. 12/22: Remains on the vent, more somnolent this am. Patient also with persistent bloody stools, H&H remains stable, GI is also following. Will keep patient NPO for now, IV PPI, and serial H&H. Patient is tolerating PSV trial, However, intubation postpone due to increased lethargy and GIB. Awaiting on GI recommend ations. 12/23: With persistent rectal bleeding, H&H and vital signs remain stable. GI is on the case, plan for possible colonoscopy tomorrow. Keep patient NPO, continue IV PPI and serial H&H. Hypoglycemic overnight, most likely due to NPO status, continue D10W for now. D/W CCM continue PSV trial, possible extubation tomorrow. Continue HD per Nephro 12/24: Post colonoscopy at the bedside this am. Patient stable on thevent but lethargic. GI recommendations appreciated. Will resume TF, continue PPI and trend H&H X1more day. Leukocytosis improved this am, stool studies pending, Continue current IV antibiotics per ID. Plan for possible PSV trial today once more awake, possible extubation if patient tolerate PSV trial. 12/25: s/p extubation now stable on 3L NC. Post colonoscopy, still with blood tinge losse stools, stool studies pending. Continue current IV antiobiotics per ID. S/p 1unit of PRBCs, H&H is stable this am, thrombocytopenia improved. Continue to hold AC, trend CBC, and PPI. Consult placed to general surgery for RUE wound eval and management, wound care consult pending. D/w CCM, patient is stable for transfer to Telemetry. 12/26: Patient remains very lethargic, failed swallow evaluation likely due to profound leathargy, Continue aspiration precautions, Monitor H/H closely, GI input noted, will purse PEG placement if patients mental status does not improve to tolerate oral diet. Continue abx per infectious disease specialist. She still has evidence of dark tarry stool in the FMS. We will monitor leukocytosis for resolution. Wound care input from surgical team appreciated patient will likely undergo debridement Aspiration precaution. Awaiting C. difficile testing also. 12/27: Patient still with diarrhea awaiting awaiting C. difficile cultures. Continue to hold all stool softeners. She is more awake this morning and if she was able to tolerate Robitussin and some COVID last night we will have speech team repeat swallow evaluation. Hemoglobin did drop by 1 g we will continue to monitor considering renal failure would not transfuse at this time unless less than 6. Aggressive PT OT 12/28: Continue supportive care. Awaiting PT OT evaluation. Patient appears more awake today and have asked the nurse to repeat swallow evaluation. Anticipate discharge in a.m. Continue hemodialysis Patient will benefit from wound care further right upper extremity wound on discharge. Surgical input on wound management appreciated. Assessment and Plan #Septic Shock 09/17 #GPC Bacteremia #Severe Colitis #Leukocytosis - Suspected source right upper chest Permacath, removed on 12/15 - Intial Blood cultures + beta-hemolytic strep group B in 4/4 bottles, repeat B.Cultures with NGTD - Echo with no evidence of vegetation - With persistent leukocytosis, afebrile - Severe colitis throughout the entire colon noted from colonoscopy on 12/24 - Stool studies pending - ID on consult, appreciated recommendations - Continue current IV Abx, Rocephin, per ID - Continue to F/U on B.cult - Daily CBC monitor #Heart Failure with Reduced Ejection Fraction #Severe Cardiomyopathy #NSTEMI #H/o Hypertension #History of CAD - Cardiology consulted, assistance appreciated - went in septic shock 09/17 bacteremia- s/p dobutamine and vaspressors - Echocardiogram 11/23: EF 35-40% - Repeat Echo this admit shows LVEF 30 to 35%, no valvular vegetations - Continue statin, ASA held due to GIB - midodrine adjusted and parameters added - Continue blood pressure monitor per protocol - Maintain MAP above 65 - Strick I&Os and daily weight #Acute Metabolic Encephalopathy #h/o seizure disorder and 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 #S/p Fall at home - most likely due to severe sepsis - CT head with no acute intracranial process - Imagings with no evidence of fractures or any acute findings - On the vent, not on any sedations, but lethargic - Continue current IV abx per ID - Frequent reorientation - Avoid benzodiazepine to reduce the possibility of delirium - Prn analgesia for pain management - Maintenance of sleep-wake cycle - Aspiration/seizure precautions - Continue fall precautions - Physical therapy eval ordered #Acute on Chronic Hypoxic Respiratory Failure - most likely due to fluid overload/sepsis shock - Decompensated on 12/15 was emergently intubated - Extubated on 12/24, now stable on 3L NC - CCM consulted, appreciate recommendations - Aspiration precaution HOB above 30 - Continue O2 supplementation and SPO2 monitoring for SPO2 goal above 92% #ESRD (End Stage Renal Disease) on HD - Nephrology on consult, appreciated recommendation - BRICE AV-fistula is functioning, patient tolerating HD - Continue HD per Nephro - Strict intake and output - Avoid nephrotoxic medications; Renally dose medications - Monitor and replace electrolytes as needed #Extravasation of RUE #Sacral Wounds - RUE extravasation of RUE- possibly levophed- Antidote not available - RUE doppler negative DVT - WOCN consult pending - General Surgery consulted for wound eval and management - PRN analgesia for pain management #Normocytic Anemia, chronic #Thrombocytopenia-improved #Acute GI Bleed - Acute bloody stools since 12/21, probably due to low plt - H&H remains stable, Platelet count is improving - s/p 2units of FFP and 1unit of PRBCs - HIT panel negative - GI on consult, appreciated recommendations - 12/24- s/p Colonoscopy- diffuse severe colitis throughout the entire colon with erythema and edema and nodularity probably due to infectious or ischemic etiology - stool studies ordered to rule out infectious etiologies - Tolerating TF, still with bloody tinge loose stools - continue PPI and trend CBC - Continue to hold AC for now - Hematology is also following - Continue to monitor for s/s of any active bleeding - Transfuse 1 unit of plts whenever plt count <20 - Transfuse for hemoglobin less than 7 #Type 2 Diabetes Mellitus # Multi-nodular thyroid gland - Episode of hypoglycemia, most likely due to NPO status - Tolerating TF, continue enteral nutrition for now - Speech swallow eval ordered - Continue BG check and SSI Q6hrs - Continue Hypoglycemic Protocol - Avoid Hypoglycemia - Multinodular thyroid gland noted on CT head - Possible thyroid US when more stable vs outpatient #GI/DVT Prophylaxis - PPI- IV Protonix - SCDs to bilateral lower extremities while in bed History Interval history: Patient seen and examined, much more awake this morning. Discussed with nursing staff no new complaints Hospitalist Physical - Physical exam Narrative exam: General appearance: Present: no acute distress, obese much more awake - EENT Eyes: Present: PERRL dry mucosal membrane ENT: hearing intact - Neck Neck: Present: normal ROM - Respiratory Respiratory effort: normal Respiratory: bilateral: diminished - Cardiovascular Rhythm: regular Heart Sounds: Present: S1 & S2 - Extremities Extremities: pulses intact, pulses symmetrical, abnormal ((RUE extravasation)) Extremity abnormal: edema right upper extremity worse than left - Peripheral Assessment Bilateral Upper Extremity Edema Type: Pitting Edema Degree: 3+ Capillary Refill: < 3 seconds Skin Temperature: Warm Peripheral Pulses: within normal limits - Abdominal General gastrointestinal: soft, non-distended, normal bowel sounds - Integumentary Integumentary: Present: warm ((RUE extravasation)) dressing to the right upper extremity - Psychiatric Psychiatric: appropriate mood/affect, cooperative, improved mentation - Neurologic Neurologic: moves all extremities (Limited range motion RUE), other (Awake but confused, easily reoriented) - Allied Health Allied health notes reviewed: nursing, case management - Constitutional Vitals: Temp Pulse Resp BP Pulse Ox 98.2 F 78 18 121/44 99 12/28/21 07:51 12/28/21 07:51 12/28/21 07:51 12/28/21 07:51 12/28/21 07:51 General appearance: Present: no acute distress, obese HEART Score - HEART Score Troponin: Troponin T 0.175 ng/mL (0.00-0.029) H* 12/12/21 04:43 Results - Labs CBC & Chem 7: 12/27/21 04:00 12/27/21 04:00 Labs: Laboratory Last Values WBC 10.3 K/mm3 (4.5-11.0) 12/27/21 04:00 RBC 2.81 M/mm3 (3.65-5.03) L 12/27/21 04:00 Hgb 7.7 gm/dl (10.1-14.3) L 12/27/21 04:00 Hct 22.6 % (30.3-42.9) L 12/27/21 04:00 MCV 80 fl (79-97) 12/27/21 04:00 MCH 27 pg (28-32) L 12/27/21 04:00 MCHC 34 % (30-34) 12/27/21 04:00 RDW 18.0 % (13.2-15.2) H 12/27/21 04:00 Plt Count 120 K/mm3 (140-440) L 12/27/21 04:00 Lymph % (Auto) 8.0 % (13.4-35.0) L 12/26/21 Unknown Jackson % (Auto) 8.9 % (0.0-7.3) H 12/26/21 Unknown Eos % (Auto) 0.4 % (0.0-4.3) 12/26/21 Unknown Baso % (Auto) 1.0 % (0.0-1.8) 12/26/21 Unknown Lymph # (Auto) 1.1 K/mm3 (1.2-5.4) L 12/26/21 Unknown Jackson # (Auto) 1.3 K/mm3 (0.0-0.8) H 12/26/21 Unknown Eos # (Auto) 0.1 K/mm3 (0.0-0.4) 12/26/21 Unknown Baso # (Auto) 0.1 K/mm3 (0.0-0.1) 12/26/21 Unknown Add Manual Diff Complete 12/18/21 05:00 Total Counted 100 12/19/21 05:00 Seg Neutrophils % 81.7 % (40.0-70.0) H 12/26/21 Unknown Seg Neuts % (Manual) 93.0 % (40.0-70.0) H 12/19/21 05:00 Band Neutrophils % 2.0 % 12/19/21 05:00 Lymphocytes % (Manual) 2.0 % (13.4-35.0) L 12/19/21 05:00 Reactive Lymphs % (Man) 0 % 12/19/21 05:00 Monocytes % (Manual) 1.0 % (0.0-7.3) 12/19/21 05:00 Eosinophils % (Manual) 0 % (0.0-4.3) 12/19/21 05:00 Basophils % (Manual) 0 % (0.0-1.8) 12/19/21 05:00 Metamyelocytes % 2.0 % 12/19/21 05:00 Myelocytes % 0 % 12/19/21 05:00 Promyelocytes % 0 % 12/19/21 05:00 Blast Cells % 0 % 12/19/21 05:00 Nucleated RBC % Not Reportable 12/19/21 05:00 Seg Neutrophils # 11.6 K/mm3 (1.8-7.7) H 12/26/21 Unknown Seg Neutrophils # Man 17.6 K/mm3 (1.8-7.7) H 12/19/21 05:00 Band Neutrophils # 0.4 K/mm3 12/19/21 05:00 Lymphocytes # (Manual) 0.4 K/mm3 (1.2-5.4) L 12/19/21 05:00 Abs React Lymphs (Man) 0.0 K/mm3 12/19/21 05:00 Monocytes # (Manual) 0.2 K/mm3 (0.0-0.8) 12/19/21 05:00 Eosinophils # (Manual) 0.0 K/mm3 (0.0-0.4) 12/19/21 05:00 Basophils # (Manual) 0.0 K/mm3 (0.0-0.1) 12/19/21 05:00 Metamyelocytes # 0.4 K/mm3 12/19/21 05:00 Myelocytes # 0.0 K/mm3 12/19/21 05:00 Promyelocytes # 0.0 K/mm3 12/19/21 05:00 Blast Cells # 0.0 K/mm3 12/19/21 05:00 WBC Morphology Not Reportable 12/19/21 05:00 Hypersegmented Neuts Not Reportable 12/19/21 05:00 Hyposegmented Neuts 1+ 12/19/21 05:00 Hypogranular Neuts Not Reportable 12/19/21 05:00 Smudge Cells Not Reportable 12/19/21 05:00 Toxic Granulation Not Reportable 12/19/21 05:00 Toxic Vacuolation Not Reportable 12/19/21 05:00 Dohle Bodies Not Reportable 12/19/21 05:00 Pelger-Huet Anomaly Not Reportable 12/19/21 05:00 Charles Rods Not Reportable 12/19/21 05:00 Platelet Estimate Consistent w auto 12/19/21 05:00 Clumped Platelets Not Reportable 12/19/21 05:00 Plt Clumps, EDTA Not Reportable 12/19/21 05:00 Large Platelets Not Reportable 12/19/21 05:00 Giant Platelets Not Reportable 12/19/21 05:00 Platelet Satelliting Not Reportable 12/19/21 05:00 Plt Morphology Comment Not Reportable 12/19/21 05:00 RBC Morphology Not Reportable 12/19/21 05:00 Dimorphic RBCs Not Reportable 12/19/21 05:00 Polychromasia Not Reportable 12/19/21 05:00 Hypochromasia 1+ 12/19/21 05:00 Poikilocytosis Few 12/19/21 05:00 Anisocytosis Few 12/19/21 05:00 Microcytosis Not Reportable 12/19/21 05:00 Macrocytosis Not Reportable 12/19/21 05:00 Spherocytes Not Reportable 12/19/21 05:00 Pappenheimer Bodies Not Reportable 12/19/21 05:00 Sickle Cells Not Reportable 12/19/21 05:00 Target Cells Rare 12/19/21 05:00 Tear Drop Cells Not Reportable 12/19/21 05:00 Ovalocytes Rare 12/19/21 05:00 Helmet Cells Not Reportable 12/19/21 05:00 Murphy-[place] Bodies Not Reportable 12/19/21 05:00 Palmetto Rings Not Reportable 12/19/21 05:00 Thomas Cells Not Reportable 12/19/21 05:00 Bite Cells Not Reportable 12/19/21 05:00 Crenated Cell Not Reportable 12/19/21 05:00 Elliptocytes Not Reportable 12/19/21 05:00 Acanthocytes (Spur) Not Reportable 12/19/21 05:00 Rouleaux Rare 12/19/21 05:00 Hemoglobin C Crystals Not Reportable 12/19/21 05:00 Schistocytes Rare 12/19/21 05:00 Malaria parasites Not Reportable 12/19/21 05:00 Percent Retic 0.37 % (0.78-2.58) L 12/18/21 05:00 Bryson Bodies Not Reportable 12/19/21 05:00 Haptoglobin 193 mg/dL (43-212) 12/18/21 05:00 Hem Pathologist Commnt Not Reportable 12/19/21 05:00 PT 17.7 Sec. (12.2-14.9) H 12/22/21 14:05 INR 1.30 (0.87-1.13) H 12/22/21 14:05 Fibrinogen 351 mg/dl (211-480) 12/21/21 08:35 Heparin Anti-Xa, Unfract Negative (Negative) 12/17/21 09:30 ABG pH 7.450 pH Units (7.350-7.450) 12/24/21 Unknown POC ABG pCO2 36.0 mmHg (32.0-48.0) 12/21/21 10:20 ABG pCO2 39.1 mm Hg 12/24/21 Unknown POC ABG pO2 126.1 mmHg (83-108) H 12/21/21 10:20 ABG pO2 109.1 mm Hg (80.0-90.0) H 12/24/21 Unknown POC ABG HCO3 24.3 12/21/21 10:20 ABG HCO3 26.6 mmol/L (20.0-26.0) H 12/24/21 Unknown ABG O2 Saturation 98.1 % (95.0-99.0) 12/24/21 Unknown ABG O2 Content 9.4 (0.0-44) 12/24/21 Unknown POC ABG Base Excess 0.6 12/21/21 10:20 ABG Base Excess 2.4 mmol/L (-2.0-3.0) 12/24/21 Unknown ABG Hemoglobin 6.8 gm/dl (12.0-16.0) L 12/24/21 Unknown ABG Oxyhemoglobin 97.4 (94-98) 12/21/21 10:20 ABG Carboxyhemoglobin 1.8 % (0.0-5.0) 12/24/21 Unknown ABG Methemoglobin 0.5 % (0.0-1.5) 12/24/21 Unknown ABG Sodium Not Reportable 12/21/21 10:20 ABG Potassium Not Reportable 12/21/21 10:20 ABG Chloride Not Reportable 12/21/21 10:20 ABG Glucose Not Reportable 12/21/21 10:20 VBG pO2 > 258.0 (25.0-47.0) H 12/15/21 19:50 Oxyhemoglobin 95.8 % (95.0-99.0) 12/24/21 Unknown Carboxyhemoglobin 0.9 (0.5-1.5) 12/21/21 10:20 FiO2 30 % 12/24/21 Unknown FiO2 % 30.0 12/21/21 10:20 Sodium 139 mmol/L (137-145) 12/27/21 04:00 Potassium 3.7 mmol/L (3.6-5.0) 12/27/21 04:00 Chloride 100.5 mmol/L (98-107) 12/27/21 04:00 Carbon Dioxide 26 mmol/L (22-30) 12/27/21 04:00 Anion Gap 16 mmol/L 12/27/21 04:00 BUN 39 mg/dL (7-17) H 12/27/21 04:00 Creatinine 3.7 mg/dL (0.6-1.2) H 12/27/21 04:00 Estimated GFR 15 ml/min 12/27/21 04:00 BUN/Creatinine Ratio 11 % 12/27/21 04:00 Glucose 147 mg/dL (65-100) H 12/27/21 04:00 POC Glucose 110 mg/dL (70-105) H 12/28/21 06:06 Lactic Acid 1.90 mmol/L (0.7-2.0) 12/16/21 05:00 Calcium 8.0 mg/dL (8.4-10.2) L 12/27/21 04:00 Phosphorus 4.90 mg/dL (2.5-4.5) H 12/23/21 04:39 Magnesium 1.90 mg/dL (1.7-2.3) 12/23/21 04:39 Iron 13 ug/dL (37-170) L 12/18/21 05:00 TIBC 109 mcg/dL (250-450) L 12/18/21 05:00 Ferritin 383.4 ng/mL (10.0-200.0) H 12/18/21 05:00 Total Bilirubin 0.50 mg/dL (0.1-1.2) 12/27/21 04:00 AST 23 units/L (5-40) 12/27/21 04:00 ALT 10 units/L (7-56) 12/27/21 04:00 Alkaline Phosphatase 222 units/L (35-129) H 12/27/21 04:00 Ammonia 26.0 umol/L (25-60) 12/26/21 Unknown Lactate Dehydrogenase 249 units/L (91-180) H 12/21/21 08:35 Troponin T 0.175 ng/mL (0.00-0.029) H* 12/12/21 04:43 C-Reactive Protein 38.50 mg/dL (0.00-1.30) H 12/15/21 14:40 Total Protein 5.9 g/dL (6.3-8.2) L 12/27/21 04:00 Albumin 1.7 g/dL (3.9-5) L 12/27/21 04:00 Albumin/Globulin Ratio 0.4 % 12/27/21 04:00 Triglycerides 92 mg/dL (2-149) 12/11/21 15:40 Cholesterol 72 mg/dL (50-199) 12/11/21 15:40 LDL Cholesterol Direct 16 mg/dL (50-130) L 12/11/21 15:40 HDL Cholesterol 41 mg/dL (40-59) 12/11/21 15:40 Cholesterol/HDL Ratio 1.75 % 12/11/21 15:40 Serotonin Release Assay See scanned result 12/17/21 09:30 Procalcitonin 46.16 ng/mL (<0.15) 12/15/21 04:11 Arterial Blood Glucose Not Reportable 12/21/21 10:20 Random Vancomycin 15.6 ug/mL (0-40.0) 12/16/21 05:00 Heparin-induced Plt Ab Negative (Negative) 12/17/21 09:30 UF Heparin High Dose 1 % Release 12/17/21 09:30 JAMILAH UFH Low Dose 0.1 0 % Release 12/17/21 09:30 JAMILAH UFH Low Dose 0.5 0 % Release 12/17/21 09:30 C. difficile Tox (PCR) Negative (Negative) 12/27/21 12:30 Hepatitis A IgM Ab Non-reactive (NonReactive) 12/27/21 Unknown Hep Bs Antigen Non-reactive (Negative) 12/27/21 Unknown Hep B Core IgM Ab Non-reactive (NonReactive) 12/27/21 Unknown Hepatitis C Antibody Non-reactive (NonReactive) 12/27/21 Unknown Blood Type O POSITIVE 12/23/21 16:20 Antibody Screen Negative 12/23/21 16:20 Crossmatch See Detail 12/23/21 16:20 Johnson/IV: Voiding Method Incontinent Active Medications - Current Medications Current Medications: Generic Name Dose Route Start Last Admin Trade Name Freq PRN Reason Stop Dose Admin Acetaminophen 650 mg 12/13/21 23:00 12/13/21 23:18 Acetaminophen 650 Mg Rect Supp [place] 650 mg Q4H PRN Administration Pain, Mild (1-3) Acetaminophen 650 mg 12/24/21 14:02 12/27/21 14:22 Acetaminophen 325 Mg/10.15 Ml Oral Liqd Unit Dose FEEDTUBE 650 mg Q6H PRN Administration Pain, Mild (1-3) Albuterol 2.5 mg 12/11/21 22:14 Albuterol 2.5 Mg/3 Ml Nebu IH Q6HR PRN Wheezing Albuterol/Ipratropium 1 ampul 12/14/21 08:00 12/27/21 21:07 Ipratropium/Albuterol Sulfate 3 Ml Ampul.Neb IH 1 ampul TIDRT KRISTA Administration Lipase/Protease/Amylase 1 each 12/16/21 11:15 Lipase 10,500/Protease 25,000/Amylase 43,750 (Units) Dr Blanco FEEDTUBE PRN PRN For Clogged Feeding Tube Atorvastatin Calcium 80 mg 12/15/21 22:00 12/27/21 22:05 Atorvastatin 40 Mg Tab FEEDTUBE 80 mg QHS KRISTA Administration Budesonide 0.5 mg 12/13/21 08:00 12/27/21 21:06 Budesonide 0.5 Mg/2 Ml Nebu IH 0.5 mg Q12HRT KRISTA Administration Carvedilol 6.25 mg 12/26/21 10:00 12/27/21 22:06 Carvedilol 6.25 Mg Tab PO 6.25 mg BID KRISTA Administration Dextrose 50 ml 12/11/21 22:23 12/26/21 18:12 Dextrose 50% In Water (25gm) 50 Ml Syringe IV 20 ml Q30MIN PRN Administration Hypoglycemia Protocol Guaifenesin 10 ml 12/27/21 05:30 12/27/21 05:54 Guaifenesin Dm 200/20 Mg Oral Liqd 10 Ml PO 10 ml Q4H PRN Administration Cough Haloperidol Lactate 2.5 mg 12/25/21 11:37 12/28/21 01:35 Haloperidol Lactate 5 Mg/1 Ml Inj IV 2.5 mg Q6H PRN Administration Agitation Hydrophilic Ointment 1 applic 12/16/21 14:30 Lip Therapy Vaseline TP Q2HR PRN Dry Lips Sodium Chloride 100 mls @ 999 mls/hr 12/12/21 12:00 Nacl 0.9% IV ABEL PRN Hypotension Cefazolin Sodium 1 gm in 50 mls @ 100 mls/hr 12/26/21 18:00 12/27/21 19:00 Ancef/Ns 1 Gm/50 Ml IV 12/29/21 17:59 100 mls/hr QPM KRISTA Administration Protocol Insulin Human Lispro 0 unit 12/15/21 12:00 12/28/21 06:19 Insulin Lispro 100 Unit/Ml SUB-Q Not Given Q6HR [facility] Protocol Isosorbide Dinitrate/Hydralazine 1 each 12/26/21 10:00 12/28/21 06:00 Isosorb Dinit/Hydralazine 20-37.5mg Tab PO 1 each Q8HR KRISTA Administration Lansoprazole 30 mg 12/25/21 10:00 12/27/21 09:19 Lansoprazole 30 Mg Solutab FEEDTUBE 30 mg QDAY KRISTA Administration Levetiracetam 500 mg 12/16/21 18:00 12/27/21 19:00 Levetiracetam 500 Mg/5 Ml Oral Liqd FEEDTUBE 500 mg TuThSa KRISTA Administration Midodrine 5 mg 12/24/21 12:00 12/27/21 18:11 Midodrine 5 Mg Tab FEEDTUBE Not Given TID@0800,1200,1600 [facility] Multi-Ingred Cream/Lotion/Oil/Oint 1 applic 12/16/21 14:10 Mineral Oil/Petrolatum, White Ophth Oint 3.5 Gm OU Q4HR PRN Dry Eye(s) Nitroglycerin 0.4 mg 12/11/21 22:11 Nitroglycerin 0.4 Mg Tab Subl SL Q5M PRN Chest Pain Simple Syrup 15 ml 12/16/21 11:15 Simple Syrup 15 Ml FEEDTUBE PRN PRN Hypoglycemia Simple Syrup 30 ml 12/16/21 11:15 12/26/21 17:10 Simple Syrup 15 Ml FEEDTUBE 30 ml PRN PRN Administration Hypoglycemia Sodium Bicarbonate 325 mg 12/16/21 11:15 Sodium Bicarbonate 325 Mg Tab FEEDTUBE PRN PRN For Clogged Feeding Tube Sodium Chloride 10 ml 12/11/21 22:11 12/27/21 22:07 Sodium Chloride 0.9% 10 Ml Flush Syringe IV 10 ml PRN PRN Administration LINE FLUSH Vancomycin HCl 125 mg 12/25/21 15:00 12/28/21 02:03 Vancomycin 250 Mg/10 Ml Oral Liqd PO 125 mg Q6H KRISTA Administration Protocol Nutrition/Malnutrition Assess - Dietary Evaluation Nutrition/Malnutrition Findings: Nutrition Notes Start: 12/12/21 11:57 Freq: Status: Active Protocol: Document 12/24/21 17:36 EVERARDO (Rec: 12/24/21 17:55 EVERARDO [email or web address]) Nutrition Notes Initial or Follow up Brief Note Current Diagnosis CKD (stage V CKD),Coronary Artery Disease,Sepsis, Hypertension,Heart Failure, Respiratory Failure Other Pertinent Diagnosis Colitis, Bacteremia, ESRD+HD, Septic Shock, Thrombocytopenia , Anemia,... Current Diet TF-Nepro w/CARBSTEADY @ 30 ml/ hr (from L 12/24). Height 4 ft 11 in Weight 61.9 kg [place] Body Weight (kg) 43.18 BMI 27.6 Weight change and time frame No body weight change in 2 days reported. Weight Status Overweight Subjective/Other Information RD consult for TF continuation . TF resumed on L 12/24. Pt continues on Mechanical ventilation, O2 saturation @ 98%, according to MV notes. Percent of energy/protein needs met: Prescribed TF-Nepro w/ CARBSTEADY @ 30 ml/hr provides for energy/protein needs (1, 296 Kcal/58 g) during LOS, 103 % Kcal; 82% AA. #1 Nutrition Diagnosis Inadequate oral intake Diagnosis Progress(for reassessment Continues documentation) Is patient on ventilator? Yes Is Patient Ambulatory and/or Out of Bed No REE-([facility]-confined to bed) [phone] Calculation Used for Recommendations Tyler Gomezcarito Additional Notes Protein: >1.2 g/Kg ABW; >74 g/ day. Fluids: 1-1.5 L/day, or as per MD. Nutrition Intervention Nutrition Support: Continue TF-Nepro w/CARBSTEADY @ 30 ml/hr. Flush: 130 ml water Q 4 hr, or as per MD. Kcal 1,269 Protein (gm) 58 Carbohydrates (gm) 116 Fat (gm) 69 Fluid (mL) 523 Fiber (gm) 9 % RDI: 103% Kcal; 82% AA. Goal #1 Provide at least 75% of energy /protein needs through Enteral Feeding during LOS. Goal #2 Maintain body weight within +/ -3% of admission body weight during LOS. Follow-Up By: 12/31/21 Additional Comments Continue monitoring, Ventilation status, renal function, GI Bleed, TF tolerance and BM.
[2021-12-28] MEDS: BUDESONIDE 0.5 MG/2 ML NEBU IH SCH ×2 (09:24→20:55)
[2021-12-28] MEDS: IPRATROPIUM/ALBUTEROL SULFATE 3 ML AMPUL.NEB IH SCH ×3 (09:24→20:55)
[2021-12-28] MEDS: carvediloL 6.25 MG TAB PO SCH ×2 (09:33→21:25)
[2021-12-28] MEDS: ACETAMINOPHEN 325 MG/10.15 ML ORAL LIQD UNIT DOSE FEEDTUBE PRN ×3 (09:33→23:20)
[2021-12-28] MEDS: LANSOPRAZOLE 30 MG SOLUTAB FEEDTUBE SCH (09:34)
[2021-12-28] MEDS: MIDODRINE 5 MG TAB FEEDTUBE SCH ×3 (09:34→16:32)
--- NOTE | 2021-12-28 13:51 | Progress Note ---
Assessment and Plan Septic shock Bacteremia with gram-positive cocci End-stage renal disease on dialysis Colitis Acute toxic metabolic encephalopathy Thrombocytopenia Non-ST elevation myocardial infarction A-Fib with RVR Hypertension Diabetes type 2 Anemia that is normocytic - continue prn BIPAP - C-diff assay negative - continue care as below otherwise; - continue wound care per RN / WCN - thrombocytopenia is improving (HIT assay negative) - continue to wean supplemental oxygen for target O2 sat's > 90% acutely - VAP bundle addressed - continue lung protective strategies - continue bronchodilators with pulmonary hygiene per RT - wean per pulmonary driven protocols otherwise - continue HD/UF for toxin and volume clearance - avoid nephrotoxins, renally dose all medications - continue to avoid benzodiazepine's, reduce the possibility of delirium - complete AB's per ID rec's (On Rocephin) - prn analgesia per pain score - Maintenance of sleep-wake cycle, avoid delirium - continue enteral nutritional support at goal rate as tolerated - G.I. & VTE prophylaxis - PT/OT/ROM exercises - continue mobility protocols for pressure ulcer prophylaxis - Monitor hemodynamics closely - continue other care per attending / other consultants - discharge planning ongoing concurrently .... Re-evaluate in am & prn Subjective Date of service: 12/28/21 Principal diagnosis: Septic shock ; Bacteremia; ESRD on dialysis; AMS; NSTEMI; HTN; DM II Interval history: Patient is seen today for: Septic shock ; gm +ve Bacteremia; ESRD on dialysis; AMS; NSTEMI; Hypertension; DM II Seen and examined at bedside; 24hour events reviewed; nursing and respiratory care staff consulted; no adverse overnight events reported to me; resting peacefully in bed; doing well so far post extubation; tolerating dialysis; denies chest pain or SOB; no high grade fevers Objective Vital Signs - 12hr 12/28/21 12/28/21 12/28/21 04:26 06:00 07:51 Temperature 98.6 F 98.2 F Pulse Rate 77 77 78 Pulse Rate [ Anterior Bilateral Throughout] Pulse Rate [ From Monitor] Respiratory 18 18 Rate Respiratory Rate [Anterior Bilateral Throughout] Blood Pressure 122/64 122/64 121/44 O2 Sat by Pulse 97 99 Oximetry 12/28/21 12/28/21 12/28/21 09:24 09:33 10:00 Temperature Pulse Rate 89 Pulse Rate [ 78 Anterior Bilateral Throughout] Pulse Rate [ 89 From Monitor] Respiratory 18 Rate Respiratory 18 Rate [Anterior Bilateral Throughout] Blood Pressure 124/60 O2 Sat by Pulse 100 96 Oximetry 12/28/21 11:21 Temperature 98.0 F Pulse Rate 80 Pulse Rate [ Anterior Bilateral Throughout] Pulse Rate [ From Monitor] Respiratory 18 Rate Respiratory Rate [Anterior Bilateral Throughout] Blood Pressure 100/49 O2 Sat by Pulse 100 Oximetry Constitutional: no acute distress, other (elderly female with normal respiratory effort at rest) Eyes: non-icteric ENT: oropharynx moist, other (extubated) Neck: supple, no JVD Effort: normal Ascultation: Bilateral: rhonchi (scant) Percussion: Bilateral: not dull Cardiovascular: regular rate and rhythm Gastrointestinal: normoactive bowel sounds, soft, non-tender, non-distended (protuberant) Integumentary: rash (right groin / ? scar), other (Left upper extremity AV graft; right forearm blisters (open and closed) and induration; no pus) Extremities: no cyanosis, pulses normal, no ischemia or petechiae, edema (right upper extremity) Neurologic: non-focal exam (grossly), pupils equal and round, CN II-XII normal, motor strength normal and Psychiatric: mood appropriate, affect normal CBC and BMP: 12/30/21 04:56 12/30/21 04:56 ABG, PT/INR, D-dimer: ABG ABG pH 7.450 pH Units (7.350-7.450) 12/24/21 Unknown POC ABG pCO2 36.0 mmHg (32.0-48.0) 12/21/21 10:20 ABG pCO2 39.1 mm Hg 12/24/21 Unknown POC ABG pO2 126.1 mmHg (83-108) H 12/21/21 10:20 ABG pO2 109.1 mm Hg (80.0-90.0) H 12/24/21 Unknown POC ABG HCO3 24.3 12/21/21 10:20 ABG O2 Saturation 98.1 % (95.0-99.0) 12/24/21 Unknown PT/INR, D-dimer PT 17.7 Sec. (12.2-14.9) H 12/22/21 14:05 INR 1.30 (0.87-1.13) H 12/22/21 14:05 Abnormal lab findings: Abnormal Labs 12/11/21 12/11/21 12/12/21 14:52 15:40 04:43 WBC RBC 3.57 L Hgb 9.4 L Hct 29.5 L MCH 26 L 27 L RDW 17.8 H 17.9 H Plt Count 119 L 110 L Lymph % (Auto) 4.0 L [place] % (Auto) Lymph # (Auto) 0.3 L [place] # (Auto) Seg Neutrophils % 90.0 H Seg Neuts % (Manual) Lymphocytes % (Manual) Monocytes % (Manual) Nucleated RBC % Seg Neutrophils # Seg Neutrophils # Man Lymphocytes # (Manual) Percent Retic PT INR Fibrinogen ABG pH POC ABG pO2 ABG pO2 ABG HCO3 ABG O2 Saturation ABG Base Excess ABG Hemoglobin VBG pO2 Oxyhemoglobin Sodium Potassium Chloride Carbon Dioxide 18 L BUN 76 H Creatinine 9.2 H Glucose POC Glucose Lactic Acid Calcium 7.7 L Phosphorus Magnesium Iron TIBC Ferritin Alkaline Phosphatase 237 H Lactate Dehydrogenase Troponin T 0.168 H* C-Reactive Protein Total Protein Albumin 3.6 L LDL Cholesterol Direct 16 L Crossmatch 12/12/21 12/12/21 12/12/21 04:43 04:43 08:49 WBC RBC Hgb Hct MCH RDW Plt Count Lymph % (Auto) [place] % (Auto) Lymph # (Auto) [place] # (Auto) Seg Neutrophils % Seg Neuts % (Manual) Lymphocytes % (Manual) Monocytes % (Manual) Nucleated RBC % Seg Neutrophils # Seg Neutrophils # Man Lymphocytes # (Manual) Percent Retic PT INR Fibrinogen ABG pH POC ABG pO2 ABG pO2 ABG HCO3 ABG O2 Saturation ABG Base Excess ABG Hemoglobin VBG pO2 Oxyhemoglobin Sodium 136 L Potassium Chloride 96.0 L Carbon Dioxide BUN 85 H Creatinine 9.6 H Glucose 57 L POC Glucose 47 L Lactic Acid Calcium 7.8 L Phosphorus Magnesium Iron TIBC Ferritin Alkaline Phosphatase Lactate Dehydrogenase Troponin T 0.175 H* C-Reactive Protein Total Protein Albumin LDL Cholesterol Direct Crossmatch 12/12/21 12/13/21 12/13/21 11:12 07:30 07:30 WBC RBC Hgb 9.7 L Hct 30.0 L MCH 27 L RDW 18.0 H Plt Count 99 L Lymph % (Auto) 4.8 L [place] % (Auto) Lymph # (Auto) 0.3 L [place] # (Auto) Seg Neutrophils % 88.2 H Seg Neuts % (Manual) Lymphocytes % (Manual) Monocytes % (Manual) Nucleated RBC % Seg Neutrophils # Seg Neutrophils # Man Lymphocytes # (Manual) Percent Retic PT INR Fibrinogen ABG pH POC ABG pO2 ABG pO2 ABG HCO3 ABG O2 Saturation ABG Base Excess ABG Hemoglobin VBG pO2 Oxyhemoglobin Sodium Potassium 5.1 H Chloride 97.8 L Carbon Dioxide 16 L BUN 92 H Creatinine 10.6 H Glucose 121 H POC Glucose 64 L Lactic Acid Calcium 7.6 L Phosphorus Magnesium Iron TIBC Ferritin Alkaline Phosphatase Lactate Dehydrogenase Troponin T C-Reactive Protein Total Protein Albumin LDL Cholesterol Direct Crossmatch 12/13/21 12/13/21 12/13/21 08:06 11:32 16:59 WBC RBC Hgb Hct MCH RDW Plt Count Lymph % (Auto) [place] % (Auto) Lymph # (Auto) [place] # (Auto) Seg Neutrophils % Seg Neuts % (Manual) Lymphocytes % (Manual) Monocytes % (Manual) Nucleated RBC % Seg Neutrophils # Seg Neutrophils # Man Lymphocytes # (Manual) Percent Retic PT INR Fibrinogen ABG pH POC ABG pO2 ABG pO2 ABG HCO3 ABG O2 Saturation ABG Base Excess ABG Hemoglobin VBG pO2 Oxyhemoglobin Sodium Potassium Chloride Carbon Dioxide BUN Creatinine Glucose POC Glucose 118 H 128 H 130 H Lactic Acid Calcium Phosphorus Magnesium Iron TIBC Ferritin Alkaline Phosphatase Lactate Dehydrogenase Troponin T C-Reactive Protein Total Protein Albumin LDL Cholesterol Direct Crossmatch 12/13/21 12/14/21 12/14/21 20:16 11:10 11:10 WBC RBC Hgb 9.9 L Hct MCH 27 L RDW 18.1 H Plt Count 82 L Lymph % (Auto) 5.8 L [place] % (Auto) Lymph # (Auto) 0.4 L [place] # (Auto) Seg Neutrophils % 88.3 H Seg Neuts % (Manual) Lymphocytes % (Manual) Monocytes % (Manual) Nucleated RBC % Seg Neutrophils # Seg Neutrophils # Man Lymphocytes # (Manual) Percent Retic PT INR Fibrinogen ABG pH POC ABG pO2 ABG pO2 ABG HCO3 ABG O2 Saturation ABG Base Excess ABG Hemoglobin VBG pO2 Oxyhemoglobin Sodium Potassium Chloride Carbon Dioxide 21 L BUN 57 H Creatinine 7.1 H Glucose 105 H POC Glucose 113 H Lactic Acid Calcium Phosphorus Magnesium Iron TIBC Ferritin Alkaline Phosphatase Lactate Dehydrogenase Troponin T C-Reactive Protein Total Protein Albumin LDL Cholesterol Direct Crossmatch 12/14/21 12/14/21 12/15/21 11:46 16:41 04:11 WBC RBC Hgb 9.9 L Hct 30.0 L MCH 27 L RDW 18.4 H Plt Count 57 L Lymph % (Auto) [place] % (Auto) Lymph # (Auto) [place] # (Auto) Seg Neutrophils % Seg Neuts % (Manual) Lymphocytes % (Manual) 9.0 L Monocytes % (Manual) 10.0 H Nucleated RBC % Seg Neutrophils # Seg Neutrophils # Man Lymphocytes # (Manual) 0.6 L Percent Retic PT INR Fibrinogen ABG pH POC ABG pO2 ABG pO2 ABG HCO3 ABG O2 Saturation ABG Base Excess ABG Hemoglobin VBG pO2 Oxyhemoglobin Sodium Potassium Chloride Carbon Dioxide BUN Creatinine Glucose POC Glucose 108 H 111 H Lactic Acid Calcium Phosphorus Magnesium Iron TIBC Ferritin Alkaline Phosphatase Lactate Dehydrogenase Troponin T C-Reactive Protein Total Protein Albumin LDL Cholesterol Direct Crossmatch 12/15/21 12/15/21 12/15/21 04:11 08:48 10:02 WBC RBC Hgb Hct MCH RDW Plt Count Lymph % (Auto) [place] % (Auto) Lymph # (Auto) [place] # (Auto) Seg Neutrophils % Seg Neuts % (Manual) Lymphocytes % (Manual) Monocytes % (Manual) Nucleated RBC % Seg Neutrophils # Seg Neutrophils # Man Lymphocytes # (Manual) Percent Retic PT INR Fibrinogen ABG pH POC ABG pO2 ABG pO2 ABG HCO3 ABG O2 Saturation ABG Base Excess ABG Hemoglobin VBG pO2 Oxyhemoglobin Sodium Potassium Chloride Carbon Dioxide 19 L BUN 68 H Creatinine 7.6 H Glucose POC Glucose 68 L 65 L Lactic Acid Calcium 8.1 L Phosphorus Magnesium Iron TIBC Ferritin Alkaline Phosphatase Lactate Dehydrogenase Troponin T C-Reactive Protein Total Protein Albumin LDL Cholesterol Direct Crossmatch 12/15/21 12/15/21 12/15/21 10:20 10:51 14:40 WBC RBC Hgb Hct MCH RDW Plt Count Lymph % (Auto) [place] % (Auto) Lymph # (Auto) [place] # (Auto) Seg Neutrophils % Seg Neuts % (Manual) Lymphocytes % (Manual) Monocytes % (Manual) Nucleated RBC % Seg Neutrophils # Seg Neutrophils # Man Lymphocytes # (Manual) Percent Retic PT INR Fibrinogen ABG pH POC ABG pO2 ABG pO2 ABG HCO3 ABG O2 Saturation ABG Base Excess ABG Hemoglobin VBG pO2 Oxyhemoglobin Sodium Potassium Chloride Carbon Dioxide BUN Creatinine Glucose POC Glucose 59 L 60 L Lactic Acid 2.50 H* Calcium Phosphorus Magnesium Iron TIBC Ferritin Alkaline Phosphatase Lactate Dehydrogenase Troponin T C-Reactive Protein Total Protein Albumin LDL Cholesterol Direct Crossmatch 12/15/21 12/15/21 12/16/21 14:40 19:50 05:00 WBC 12.4 H RBC Hgb 9.6 L Hct 29.4 L MCH 26 L RDW 18.1 H Plt Count 40 L Lymph % (Auto) [place] % (Auto) Lymph # (Auto) [place] # (Auto) Seg Neutrophils % Seg Neuts % (Manual) 95.0 H Lymphocytes % (Manual) 5.0 L Monocytes % (Manual) Nucleated RBC % Seg Neutrophils # Seg Neutrophils # Man 11.8 H Lymphocytes # (Manual) 0.6 L Percent Retic PT INR Fibrinogen ABG pH POC ABG pO2 ABG pO2 463.3 H ABG HCO3 ABG O2 Saturation 99.6 H ABG Base Excess ABG Hemoglobin 10.9 L VBG pO2 > 258.0 H Oxyhemoglobin Sodium Potassium Chloride Carbon Dioxide BUN Creatinine Glucose POC Glucose Lactic Acid Calcium Phosphorus Magnesium Iron TIBC Ferritin Alkaline Phosphatase Lactate Dehydrogenase Troponin T C-Reactive Protein 38.50 H Total Protein Albumin LDL Cholesterol Direct Crossmatch 12/16/21 12/16/21 12/16/21 05:00 06:15 09:58 WBC RBC Hgb Hct MCH RDW Plt Count Lymph % (Auto) [place] % (Auto) Lymph # (Auto) [place] # (Auto) Seg Neutrophils % Seg Neuts % (Manual) Lymphocytes % (Manual) Monocytes % (Manual) Nucleated RBC % Seg Neutrophils # Seg Neutrophils # Man Lymphocytes # (Manual) Percent Retic PT INR Fibrinogen ABG pH POC ABG pO2 ABG pO2 48.0 L ABG HCO3 ABG O2 Saturation 80.5 L ABG Base Excess -2.9 L ABG Hemoglobin 11.2 L VBG pO2 Oxyhemoglobin 78.8 L Sodium Potassium Chloride Carbon Dioxide BUN 75 H Creatinine 7.7 H Glucose POC Glucose 67 L Lactic Acid Calcium 8.3 L Phosphorus Magnesium Iron TIBC Ferritin Alkaline Phosphatase Lactate Dehydrogenase Troponin T C-Reactive Protein Total Protein Albumin LDL Cholesterol Direct Crossmatch 12/16/21 12/16/21 12/17/21 11:06 23:24 04:00 WBC 12.3 H RBC 3.32 L Hgb 8.8 L Hct 26.5 L MCH 26 L RDW 18.0 H Plt Count 27 L Lymph % (Auto) 5.9 L [place] % (Auto) Lymph # (Auto) 0.7 L [place] # (Auto) Seg Neutrophils % 88.3 H Seg Neuts % (Manual) Lymphocytes % (Manual) Monocytes % (Manual) Nucleated RBC % Seg Neutrophils # 10.9 H Seg Neutrophils # Man Lymphocytes # (Manual) Percent Retic PT INR Fibrinogen ABG pH POC ABG pO2 ABG pO2 137.7 H ABG HCO3 ABG O2 Saturation ABG Base Excess ABG Hemoglobin 9.9 L VBG pO2 Oxyhemoglobin Sodium Potassium Chloride Carbon Dioxide BUN Creatinine Glucose POC Glucose 110 H Lactic Acid Calcium Phosphorus Magnesium Iron TIBC Ferritin Alkaline Phosphatase Lactate Dehydrogenase Troponin T C-Reactive Protein Total Protein Albumin LDL Cholesterol Direct Crossmatch 12/17/21 12/17/21 12/17/21 04:30 04:30 11:18 WBC RBC Hgb Hct MCH RDW Plt Count Lymph % (Auto) [place] % (Auto) Lymph # (Auto) [place] # (Auto) Seg Neutrophils % Seg Neuts % (Manual) Lymphocytes % (Manual) Monocytes % (Manual) Nucleated RBC % Seg Neutrophils # Seg Neutrophils # Man Lymphocytes # (Manual) Percent Retic PT INR Fibrinogen ABG pH POC ABG pO2 ABG pO2 ABG HCO3 ABG O2 Saturation ABG Base Excess ABG Hemoglobin VBG pO2 Oxyhemoglobin Sodium Potassium Chloride Carbon Dioxide BUN 43 H Creatinine 5.0 H Glucose 129 H POC Glucose 149 H Lactic Acid Calcium 7.8 L Phosphorus 1.90 L Magnesium 1.60 L Iron TIBC Ferritin Alkaline Phosphatase Lactate Dehydrogenase Troponin T C-Reactive Protein Total Protein Albumin LDL Cholesterol Direct Crossmatch 12/17/21 12/17/21 12/17/21 14:35 16:58 18:32 WBC RBC Hgb Hct MCH RDW Plt Count Lymph % (Auto) [place] % (Auto) Lymph # (Auto) [place] # (Auto) Seg Neutrophils % Seg Neuts % (Manual) Lymphocytes % (Manual) Monocytes % (Manual) Nucleated RBC % Seg Neutrophils # Seg Neutrophils # Man Lymphocytes # (Manual) Percent Retic PT 17.4 H INR 1.27 H Fibrinogen 486 H ABG pH 7.316 L POC ABG pO2 ABG pO2 74.0 L ABG HCO3 ABG O2 Saturation 93.7 L ABG Base Excess -3.3 L ABG Hemoglobin 8.8 L VBG pO2 Oxyhemoglobin 91.7 L Sodium Potassium Chloride Carbon Dioxide BUN Creatinine Glucose POC Glucose 219 H Lactic Acid Calcium Phosphorus Magnesium Iron TIBC Ferritin Alkaline Phosphatase Lactate Dehydrogenase Troponin T C-Reactive Protein Total Protein Albumin LDL Cholesterol Direct Crossmatch 12/17/21 12/18/21 12/18/21 23:19 05:00 05:00 WBC 15.3 H RBC 3.25 L Hgb 8.4 L Hct 25.7 L MCH 26 L RDW 18.2 H Plt Count 28 L Lymph % (Auto) [place] % (Auto) Lymph # (Auto) [place] # (Auto) Seg Neutrophils % Seg Neuts % (Manual) 99.0 H Lymphocytes % (Manual) 1.0 L Monocytes % (Manual) Nucleated RBC % 1.0 H Seg Neutrophils # Seg Neutrophils # Man 15.1 H Lymphocytes # (Manual) 0.2 L Percent Retic 0.37 L PT INR Fibrinogen ABG pH POC ABG pO2 ABG pO2 ABG HCO3 ABG O2 Saturation ABG Base Excess ABG Hemoglobin VBG pO2 Oxyhemoglobin Sodium 135 L Potassium Chloride Carbon Dioxide 20 L BUN 53 H Creatinine 5.2 H Glucose 307 H POC Glucose 313 H Lactic Acid Calcium 8.0 L Phosphorus Magnesium Iron 13 L TIBC 109 L Ferritin Alkaline Phosphatase Lactate Dehydrogenase Troponin T C-Reactive Protein Total Protein Albumin LDL Cholesterol Direct Crossmatch 12/18/21 12/18/21 12/18/21 05:00 05:00 09:00 WBC RBC Hgb Hct MCH RDW Plt Count Lymph % (Auto) [place] % (Auto) Lymph # (Auto) [place] # (Auto) Seg Neutrophils % Seg Neuts % (Manual) Lymphocytes % (Manual) Monocytes % (Manual) Nucleated RBC % Seg Neutrophils # Seg Neutrophils # Man Lymphocytes # (Manual) Percent Retic PT INR Fibrinogen 481 H ABG pH POC ABG pO2 ABG pO2 50.2 L ABG HCO3 ABG O2 Saturation 81.7 L ABG Base Excess -3.6 L ABG Hemoglobin 8.0 L VBG pO2 Oxyhemoglobin 80.0 L Sodium Potassium Chloride Carbon Dioxide BUN Creatinine Glucose POC Glucose Lactic Acid Calcium Phosphorus Magnesium Iron TIBC Ferritin 383.4 H Alkaline Phosphatase Lactate Dehydrogenase Troponin T C-Reactive Protein Total Protein Albumin LDL Cholesterol Direct Crossmatch 12/18/21 12/18/21 12/18/21 10:56 11:10 12:00 WBC RBC Hgb Hct MCH RDW Plt Count Lymph % (Auto) [place] % (Auto) Lymph # (Auto) [place] # (Auto) Seg Neutrophils % Seg Neuts % (Manual) Lymphocytes % (Manual) Monocytes % (Manual) Nucleated RBC % Seg Neutrophils # Seg Neutrophils # Man Lymphocytes # (Manual) Percent Retic PT INR Fibrinogen ABG pH POC ABG pO2 ABG pO2 92.7 H ABG HCO3 19.8 L ABG O2 Saturation ABG Base Excess -3.8 L ABG Hemoglobin 6.6 L VBG pO2 Oxyhemoglobin Sodium Potassium Chloride Carbon Dioxide BUN Creatinine Glucose POC Glucose 190 H Lactic Acid Calcium Phosphorus 2.40 L D Magnesium Iron TIBC Ferritin Alkaline Phosphatase Lactate Dehydrogenase Troponin T C-Reactive Protein Total Protein Albumin LDL Cholesterol Direct Crossmatch 12/18/21 12/18/21 12/18/21 18:06 20:00 23:05 WBC 19.2 H RBC 3.51 L Hgb 8.8 L Hct 27.8 L MCH 25 L RDW 18.1 H Plt Count 34 L Lymph % (Auto) [place] % (Auto) Lymph # (Auto) [place] # (Auto) Seg Neutrophils % Seg Neuts % (Manual) Lymphocytes % (Manual) Monocytes % (Manual) Nucleated RBC % Seg Neutrophils # Seg Neutrophils # Man Lymphocytes # (Manual) Percent Retic PT INR Fibrinogen ABG pH POC ABG pO2 ABG pO2 62.5 L ABG HCO3 26.6 H ABG O2 Saturation 91.7 L ABG Base Excess ABG Hemoglobin 8.4 L VBG pO2 Oxyhemoglobin 89.9 L Sodium Potassium Chloride Carbon Dioxide BUN Creatinine Glucose POC Glucose 156 H Lactic Acid Calcium Phosphorus Magnesium Iron TIBC Ferritin Alkaline Phosphatase Lactate Dehydrogenase Troponin T C-Reactive Protein Total Protein Albumin LDL Cholesterol Direct Crossmatch 12/18/21 12/19/21 12/19/21 23:54 05:00 05:00 WBC 18.9 H RBC 3.29 L Hgb 8.4 L Hct 26.0 L MCH 26 L RDW 18.2 H Plt Count 34 L Lymph % (Auto) [place] % (Auto) Lymph # (Auto) [place] # (Auto) Seg Neutrophils % Seg Neuts % (Manual) 93.0 H Lymphocytes % (Manual) 2.0 L Monocytes % (Manual) Nucleated RBC % Seg Neutrophils # Seg Neutrophils # Man 17.6 H Lymphocytes # (Manual) 0.4 L Percent Retic PT INR Fibrinogen ABG pH POC ABG pO2 ABG pO2 ABG HCO3 ABG O2 Saturation ABG Base Excess ABG Hemoglobin VBG pO2 Oxyhemoglobin Sodium Potassium Chloride Carbon Dioxide BUN 30 H Creatinine 3.1 H Glucose 155 H POC Glucose 122 H Lactic Acid Calcium 8.2 L Phosphorus Magnesium Iron TIBC Ferritin Alkaline Phosphatase Lactate Dehydrogenase Troponin T C-Reactive Protein Total Protein Albumin LDL Cholesterol Direct Crossmatch 12/19/21 12/19/21 12/19/21 05:29 11:41 17:48 WBC RBC Hgb Hct MCH RDW Plt Count Lymph % (Auto) [place] % (Auto) Lymph # (Auto) [place] # (Auto) Seg Neutrophils % Seg Neuts % (Manual) Lymphocytes % (Manual) Monocytes % (Manual) Nucleated RBC % Seg Neutrophils # Seg Neutrophils # Man Lymphocytes # (Manual) Percent Retic PT INR Fibrinogen ABG pH POC ABG pO2 ABG pO2 ABG HCO3 ABG O2 Saturation ABG Base Excess ABG Hemoglobin VBG pO2 Oxyhemoglobin Sodium Potassium Chloride Carbon Dioxide BUN Creatinine Glucose POC Glucose 153 H 164 H 113 H Lactic Acid Calcium Phosphorus Magnesium Iron TIBC Ferritin Alkaline Phosphatase Lactate Dehydrogenase Troponin T C-Reactive Protein Total Protein Albumin LDL Cholesterol Direct Crossmatch 12/19/21 12/20/21 12/20/21 23:53 04:45 04:45 WBC 15.0 H RBC 3.39 L Hgb 8.4 L Hct 26.8 L MCH 25 L RDW 17.8 H Plt Count 36 L Lymph % (Auto) [place] % (Auto) Lymph # (Auto) [place] # (Auto) Seg Neutrophils % Seg Neuts % (Manual) Lymphocytes % (Manual) Monocytes % (Manual) Nucleated RBC % Seg Neutrophils # Seg Neutrophils # Man Lymphocytes # (Manual) Percent Retic PT INR Fibrinogen ABG pH POC ABG pO2 ABG pO2 ABG HCO3 ABG O2 Saturation ABG Base Excess ABG Hemoglobin VBG pO2 Oxyhemoglobin Sodium 135 L Potassium Chloride 96.1 L Carbon Dioxide BUN 48 H Creatinine 3.9 H Glucose 188 H POC Glucose 157 H Lactic Acid Calcium 8.1 L Phosphorus Magnesium Iron TIBC Ferritin Alkaline Phosphatase Lactate Dehydrogenase Troponin T C-Reactive Protein Total Protein Albumin LDL Cholesterol Direct Crossmatch 12/20/21 12/20/21 12/20/21 05:07 11:13 16:35 WBC RBC Hgb Hct MCH RDW Plt Count Lymph % (Auto) [place] % (Auto) Lymph # (Auto) [place] # (Auto) Seg Neutrophils % Seg Neuts % (Manual) Lymphocytes % (Manual) Monocytes % (Manual) Nucleated RBC % Seg Neutrophils # Seg Neutrophils # Man Lymphocytes # (Manual) Percent Retic PT INR Fibrinogen ABG pH POC ABG pO2 ABG pO2 ABG HCO3 ABG O2 Saturation ABG Base Excess ABG Hemoglobin VBG pO2 Oxyhemoglobin Sodium Potassium Chloride Carbon Dioxide BUN Creatinine Glucose POC Glucose 169 H 198 H 198 H Lactic Acid Calcium Phosphorus Magnesium Iron TIBC Ferritin Alkaline Phosphatase Lactate Dehydrogenase Troponin T C-Reactive Protein Total Protein Albumin LDL Cholesterol Direct Crossmatch 12/20/21 12/21/21 12/21/21 23:50 05:58 08:00 WBC 16.7 H RBC Hgb 9.3 L Hct 29.2 L MCH 25 L RDW 18.5 H Plt Count 62 L Lymph % (Auto) [place] % (Auto) Lymph # (Auto) [place] # (Auto) Seg Neutrophils % Seg Neuts % (Manual) Lymphocytes % (Manual) Monocytes % (Manual) Nucleated RBC % Seg Neutrophils # Seg Neutrophils # Man Lymphocytes # (Manual) Percent Retic PT INR Fibrinogen ABG pH POC ABG pO2 ABG pO2 ABG HCO3 ABG O2 Saturation ABG Base Excess ABG Hemoglobin VBG pO2 Oxyhemoglobin Sodium Potassium Chloride Carbon Dioxide BUN Creatinine Glucose POC Glucose 176 H 185 H Lactic Acid Calcium Phosphorus Magnesium Iron TIBC Ferritin Alkaline Phosphatase Lactate Dehydrogenase Troponin T C-Reactive Protein Total Protein Albumin LDL Cholesterol Direct Crossmatch 12/21/21 12/21/21 12/21/21 08:35 08:35 10:20 WBC RBC Hgb Hct MCH RDW Plt Count Lymph % (Auto) [place] % (Auto) Lymph # (Auto) [place] # (Auto) Seg Neutrophils % Seg Neuts % (Manual) Lymphocytes % (Manual) Monocytes % (Manual) Nucleated RBC % Seg Neutrophils # Seg Neutrophils # Man Lymphocytes # (Manual) Percent Retic PT 16.4 H INR 1.18 H Fibrinogen ABG pH POC ABG pO2 126.1 H ABG pO2 ABG HCO3 ABG O2 Saturation ABG Base Excess ABG Hemoglobin 11.1 L VBG pO2 Oxyhemoglobin Sodium Potassium 3.5 L Chloride Carbon Dioxide BUN 36 H Creatinine 2.7 H Glucose 174 H POC Glucose Lactic Acid Calcium 8.3 L Phosphorus Magnesium Iron TIBC Ferritin Alkaline Phosphatase Lactate Dehydrogenase 249 H Troponin T C-Reactive Protein Total Protein Albumin LDL Cholesterol Direct Crossmatch 12/21/21 12/21/21 12/21/21 11:18 17:14 18:00 WBC 20.2 H RBC Hgb 9.9 L Hct MCH 25 L RDW 18.0 H Plt Count 60 L Lymph % (Auto) [place] % (Auto) Lymph # (Auto) [place] # (Auto) Seg Neutrophils % Seg Neuts % (Manual) Lymphocytes % (Manual) Monocytes % (Manual) Nucleated RBC % Seg Neutrophils # Seg Neutrophils # Man Lymphocytes # (Manual) Percent Retic PT INR Fibrinogen ABG pH POC ABG pO2 ABG pO2 ABG HCO3 ABG O2 Saturation ABG Base Excess ABG Hemoglobin VBG pO2 Oxyhemoglobin Sodium Potassium Chloride Carbon Dioxide BUN Creatinine Glucose POC Glucose 181 H 222 H Lactic Acid Calcium Phosphorus Magnesium Iron TIBC Ferritin Alkaline Phosphatase Lactate Dehydrogenase Troponin T C-Reactive Protein Total Protein Albumin LDL Cholesterol Direct Crossmatch 12/21/21 12/21/21 12/22/21 19:26 23:28 04:14 WBC 23.9 H RBC Hgb Hct MCH 25 L RDW 17.8 H Plt Count 68 L Lymph % (Auto) [place] % (Auto) Lymph # (Auto) [place] # (Auto) Seg Neutrophils % Seg Neuts % (Manual) Lymphocytes % (Manual) Monocytes % (Manual) Nucleated RBC % Seg Neutrophils # Seg Neutrophils # Man Lymphocytes # (Manual) Percent Retic PT INR Fibrinogen ABG pH POC ABG pO2 ABG pO2 ABG HCO3 ABG O2 Saturation ABG Base Excess ABG Hemoglobin VBG pO2 Oxyhemoglobin Sodium Potassium Chloride Carbon Dioxide BUN Creatinine Glucose POC Glucose 214 H 260 H Lactic Acid Calcium Phosphorus Magnesium Iron TIBC Ferritin Alkaline Phosphatase Lactate Dehydrogenase Troponin T C-Reactive Protein Total Protein Albumin LDL Cholesterol Direct Crossmatch 12/22/21 12/22/21 12/22/21 04:14 05:28 11:12 WBC RBC Hgb Hct MCH RDW Plt Count Lymph % (Auto) [place] % (Auto) Lymph # (Auto) [place] # (Auto) Seg Neutrophils % Seg Neuts % (Manual) Lymphocytes % (Manual) Monocytes % (Manual) Nucleated RBC % Seg Neutrophils # Seg Neutrophils # Man Lymphocytes # (Manual) Percent Retic PT INR Fibrinogen ABG pH POC ABG pO2 ABG pO2 ABG HCO3 ABG O2 Saturation ABG Base Excess ABG Hemoglobin VBG pO2 Oxyhemoglobin Sodium 136 L Potassium 3.0 L Chloride Carbon Dioxide BUN 52 H Creatinine 3.5 H Glucose 202 H POC Glucose 223 H 191 H Lactic Acid Calcium 8.1 L Phosphorus Magnesium Iron TIBC Ferritin Alkaline Phosphatase Lactate Dehydrogenase Troponin T C-Reactive Protein Total Protein Albumin LDL Cholesterol Direct Crossmatch 12/22/21 12/22/21 12/23/21 14:05 17:57 04:39 WBC 21.1 H RBC Hgb 10.0 L Hct MCH 26 L RDW 17.6 H Plt Count 79 L Lymph % (Auto) [place] % (Auto) Lymph # (Auto) [place] # (Auto) Seg Neutrophils % Seg Neuts % (Manual) Lymphocytes % (Manual) Monocytes % (Manual) Nucleated RBC % Seg Neutrophils # Seg Neutrophils # Man Lymphocytes # (Manual) Percent Retic PT 17.7 H INR 1.30 H Fibrinogen ABG pH POC ABG pO2 ABG pO2 ABG HCO3 ABG O2 Saturation ABG Base Excess ABG Hemoglobin VBG pO2 Oxyhemoglobin Sodium Potassium Chloride Carbon Dioxide BUN Creatinine Glucose POC Glucose 140 H Lactic Acid Calcium Phosphorus Magnesium Iron TIBC Ferritin Alkaline Phosphatase Lactate Dehydrogenase Troponin T C-Reactive Protein Total Protein Albumin LDL Cholesterol Direct Crossmatch 12/23/21 12/23/21 12/23/21 04:39 05:11 11:44 WBC RBC Hgb Hct MCH RDW Plt Count Lymph % (Auto) [place] % (Auto) Lymph # (Auto) [place] # (Auto) Seg Neutrophils % Seg Neuts % (Manual) Lymphocytes % (Manual) Monocytes % (Manual) Nucleated RBC % Seg Neutrophils # Seg Neutrophils # Man Lymphocytes # (Manual) Percent Retic PT INR Fibrinogen ABG pH POC ABG pO2 ABG pO2 ABG HCO3 ABG O2 Saturation ABG Base Excess ABG Hemoglobin VBG pO2 Oxyhemoglobin Sodium 136 L Potassium Chloride Carbon Dioxide 19 L BUN 61 H Creatinine 4.5 H Glucose 113 H POC Glucose 109 H 132 H Lactic Acid Calcium 7.9 L Phosphorus 4.90 H Magnesium Iron TIBC Ferritin Alkaline Phosphatase Lactate Dehydrogenase Troponin T C-Reactive Protein Total Protein Albumin LDL Cholesterol Direct Crossmatch 12/23/21 12/23/21 12/23/21 14:05 16:20 16:59 WBC RBC Hgb 9.3 L Hct 28.7 L MCH RDW Plt Count Lymph % (Auto) [place] % (Auto) Lymph # (Auto) [place] # (Auto) Seg Neutrophils % Seg Neuts % (Manual) Lymphocytes % (Manual) Monocytes % (Manual) Nucleated RBC % Seg Neutrophils # Seg Neutrophils # Man Lymphocytes # (Manual) Percent Retic PT INR Fibrinogen ABG pH POC ABG pO2 ABG pO2 ABG HCO3 ABG O2 Saturation ABG Base Excess ABG Hemoglobin VBG pO2 Oxyhemoglobin Sodium Potassium Chloride Carbon Dioxide BUN Creatinine Glucose POC Glucose 180 H Lactic Acid Calcium Phosphorus Magnesium Iron TIBC Ferritin Alkaline Phosphatase Lactate Dehydrogenase Troponin T C-Reactive Protein Total Protein Albumin LDL Cholesterol Direct Crossmatch See Detail 12/23/21 12/23/21 12/24/21 21:44 23:30 03:45 WBC RBC Hgb Hct MCH RDW Plt Count Lymph % (Auto) [place] % (Auto) Lymph # (Auto) [place] # (Auto) Seg Neutrophils % Seg Neuts % (Manual) Lymphocytes % (Manual) Monocytes % (Manual) Nucleated RBC % Seg Neutrophils # Seg Neutrophils # Man Lymphocytes # (Manual) Percent Retic PT INR Fibrinogen ABG pH POC ABG pO2 ABG pO2 ABG HCO3 ABG O2 Saturation ABG Base Excess ABG Hemoglobin VBG pO2 Oxyhemoglobin Sodium Potassium Chloride Carbon Dioxide BUN Creatinine Glucose POC Glucose 141 H 146 H 199 H Lactic Acid Calcium Phosphorus Magnesium Iron TIBC Ferritin Alkaline Phosphatase Lactate Dehydrogenase Troponin T C-Reactive Protein Total Protein Albumin LDL Cholesterol Direct Crossmatch 12/24/21 12/24/21 12/24/21 06:00 06:00 12:37 WBC 16.8 H RBC 2.96 L Hgb 7.5 L Hct 23.3 L MCH 26 L RDW 17.8 H Plt Count 89 L Lymph % (Auto) [place] % (Auto) Lymph # (Auto) [place] # (Auto) Seg Neutrophils % Seg Neuts % (Manual) Lymphocytes % (Manual) Monocytes % (Manual) Nucleated RBC % Seg Neutrophils # Seg Neutrophils # Man Lymphocytes # (Manual) Percent Retic PT INR Fibrinogen ABG pH POC ABG pO2 ABG pO2 ABG HCO3 ABG O2 Saturation ABG Base Excess ABG Hemoglobin VBG pO2 Oxyhemoglobin Sodium Potassium 3.3 L Chloride 97.3 L Carbon Dioxide BUN 31 H Creatinine 2.8 H Glucose 208 H POC Glucose 181 H Lactic Acid Calcium 7.6 L Phosphorus Magnesium Iron TIBC Ferritin Alkaline Phosphatase Lactate Dehydrogenase Troponin T C-Reactive Protein Total Protein Albumin LDL Cholesterol Direct Crossmatch 12/24/21 12/24/21 12/24/21 14:00 17:23 21:50 WBC RBC Hgb 7.4 L 8.8 L Hct 22.0 L 25.9 L MCH RDW Plt Count Lymph % (Auto) [place] % (Auto) Lymph # (Auto) [place] # (Auto) Seg Neutrophils % Seg Neuts % (Manual) Lymphocytes % (Manual) Monocytes % (Manual) Nucleated RBC % Seg Neutrophils # Seg Neutrophils # Man Lymphocytes # (Manual) Percent Retic PT INR Fibrinogen ABG pH POC ABG pO2 ABG pO2 ABG HCO3 ABG O2 Saturation ABG Base Excess ABG Hemoglobin VBG pO2 Oxyhemoglobin Sodium Potassium Chloride Carbon Dioxide BUN Creatinine Glucose POC Glucose 167 H Lactic Acid Calcium Phosphorus Magnesium Iron TIBC Ferritin Alkaline Phosphatase Lactate Dehydrogenase Troponin T C-Reactive Protein Total Protein Albumin LDL Cholesterol Direct Crossmatch 12/24/21 12/24/21 12/25/21 23:54 Unknown 05:12 WBC 17.4 H RBC 3.10 L Hgb 8.3 L Hct 24.7 L MCH 27 L RDW 17.7 H Plt Count 105 L Lymph % (Auto) [place] % (Auto) Lymph # (Auto) [place] # (Auto) Seg Neutrophils % Seg Neuts % (Manual) Lymphocytes % (Manual) Monocytes % (Manual) Nucleated RBC % Seg Neutrophils # Seg Neutrophils # Man Lymphocytes # (Manual) Percent Retic PT INR Fibrinogen ABG pH POC ABG pO2 ABG pO2 109.1 H ABG HCO3 26.6 H ABG O2 Saturation ABG Base Excess ABG Hemoglobin 6.8 L VBG pO2 Oxyhemoglobin Sodium Potassium Chloride Carbon Dioxide BUN Creatinine Glucose POC Glucose 174 H Lactic Acid Calcium Phosphorus Magnesium Iron TIBC Ferritin Alkaline Phosphatase Lactate Dehydrogenase Troponin T C-Reactive Protein Total Protein Albumin LDL Cholesterol Direct Crossmatch 12/25/21 12/25/21 12/25/21 05:12 05:27 11:08 WBC RBC Hgb Hct MCH RDW Plt Count Lymph % (Auto) [place] % (Auto) Lymph # (Auto) [place] # (Auto) Seg Neutrophils % Seg Neuts % (Manual) Lymphocytes % (Manual) Monocytes % (Manual) Nucleated RBC % Seg Neutrophils # Seg Neutrophils # Man Lymphocytes # (Manual) Percent Retic PT INR Fibrinogen ABG pH POC ABG pO2 ABG pO2 ABG HCO3 ABG O2 Saturation ABG Base Excess ABG Hemoglobin VBG pO2 Oxyhemoglobin Sodium Potassium 3.5 L Chloride Carbon Dioxide BUN 38 H Creatinine 3.7 H Glucose 201 H POC Glucose 202 H 185 H Lactic Acid Calcium 8.0 L Phosphorus Magnesium Iron TIBC Ferritin Alkaline Phosphatase Lactate Dehydrogenase Troponin T C-Reactive Protein Total Protein Albumin LDL Cholesterol Direct Crossmatch 12/25/21 12/25/21 12/25/21 12:23 16:45 22:36 WBC RBC Hgb Hct MCH RDW Plt Count Lymph % (Auto) [place] % (Auto) Lymph # (Auto) [place] # (Auto) Seg Neutrophils % Seg Neuts % (Manual) Lymphocytes % (Manual) Monocytes % (Manual) Nucleated RBC % Seg Neutrophils # Seg Neutrophils # Man Lymphocytes # (Manual) Percent Retic PT INR Fibrinogen ABG pH POC ABG pO2 ABG pO2 ABG HCO3 ABG O2 Saturation ABG Base Excess ABG Hemoglobin VBG pO2 Oxyhemoglobin Sodium Potassium Chloride Carbon Dioxide BUN Creatinine Glucose POC Glucose 165 H 109 H 133 H Lactic Acid Calcium Phosphorus Magnesium Iron TIBC Ferritin Alkaline Phosphatase Lactate Dehydrogenase Troponin T C-Reactive Protein Total Protein Albumin LDL Cholesterol Direct Crossmatch 12/26/21 12/26/21 12/26/21 11:19 16:03 17:56 WBC RBC Hgb Hct MCH RDW Plt Count Lymph % (Auto) [place] % (Auto) Lymph # (Auto) [place] # (Auto) Seg Neutrophils % Seg Neuts % (Manual) Lymphocytes % (Manual) Monocytes % (Manual) Nucleated RBC % Seg Neutrophils # Seg Neutrophils # Man Lymphocytes # (Manual) Percent Retic PT INR Fibrinogen ABG pH POC ABG pO2 ABG pO2 ABG HCO3 ABG O2 Saturation ABG Base Excess ABG Hemoglobin VBG pO2 Oxyhemoglobin Sodium Potassium Chloride Carbon Dioxide BUN Creatinine Glucose POC Glucose 59 L 41 L 51 L Lactic Acid Calcium Phosphorus Magnesium Iron TIBC Ferritin Alkaline Phosphatase Lactate Dehydrogenase Troponin T C-Reactive Protein Total Protein Albumin LDL Cholesterol Direct Crossmatch 12/26/21 12/26/21 12/26/21 19:19 23:15 Unknown WBC 14.2 H RBC 3.14 L Hgb 8.5 L Hct 25.1 L MCH 27 L RDW 17.4 H Plt Count 119 L Lymph % (Auto) 8.0 L [place] % (Auto) 8.9 H Lymph # (Auto) 1.1 L [place] # (Auto) 1.3 H Seg Neutrophils % 81.7 H Seg Neuts % (Manual) Lymphocytes % (Manual) Monocytes % (Manual) Nucleated RBC % Seg Neutrophils # 11.6 H Seg Neutrophils # Man Lymphocytes # (Manual) Percent Retic PT INR Fibrinogen ABG pH POC ABG pO2 ABG pO2 ABG HCO3 ABG O2 Saturation ABG Base Excess ABG Hemoglobin VBG pO2 Oxyhemoglobin Sodium Potassium Chloride Carbon Dioxide BUN Creatinine Glucose POC Glucose 110 H 127 H Lactic Acid Calcium Phosphorus Magnesium Iron TIBC Ferritin Alkaline Phosphatase Lactate Dehydrogenase Troponin T C-Reactive Protein Total Protein Albumin LDL Cholesterol Direct Crossmatch 12/27/21 12/27/21 12/27/21 04:00 04:00 05:18 WBC RBC 2.81 L Hgb 7.7 L Hct 22.6 L MCH 27 L RDW 18.0 H Plt Count 120 L Lymph % (Auto) [place] % (Auto) Lymph # (Auto) [place] # (Auto) Seg Neutrophils % Seg Neuts % (Manual) Lymphocytes % (Manual) Monocytes % (Manual) Nucleated RBC % Seg Neutrophils # Seg Neutrophils # Man Lymphocytes # (Manual) Percent Retic PT INR Fibrinogen ABG pH POC ABG pO2 ABG pO2 ABG HCO3 ABG O2 Saturation ABG Base Excess ABG Hemoglobin VBG pO2 Oxyhemoglobin Sodium Potassium Chloride Carbon Dioxide BUN 39 H Creatinine 3.7 H Glucose 147 H POC Glucose 130 H Lactic Acid Calcium 8.0 L Phosphorus Magnesium Iron TIBC Ferritin Alkaline Phosphatase 222 H Lactate Dehydrogenase Troponin T C-Reactive Protein Total Protein 5.9 L Albumin 1.7 L LDL Cholesterol Direct Crossmatch 12/27/21 12/27/21 12/27/21 10:59 18:57 23:59 WBC RBC Hgb Hct MCH RDW Plt Count Lymph % (Auto) [place] % (Auto) Lymph # (Auto) [place] # (Auto) Seg Neutrophils % Seg Neuts % (Manual) Lymphocytes % (Manual) Monocytes % (Manual) Nucleated RBC % Seg Neutrophils # Seg Neutrophils # Man Lymphocytes # (Manual) Percent Retic PT INR Fibrinogen ABG pH POC ABG pO2 ABG pO2 ABG HCO3 ABG O2 Saturation ABG Base Excess ABG Hemoglobin VBG pO2 Oxyhemoglobin Sodium Potassium Chloride Carbon Dioxide BUN Creatinine Glucose POC Glucose 182 H 168 H 154 H Lactic Acid Calcium Phosphorus Magnesium Iron TIBC Ferritin Alkaline Phosphatase Lactate Dehydrogenase Troponin T C-Reactive Protein Total Protein Albumin LDL Cholesterol Direct Crossmatch 12/28/21 12/28/21 06:06 11:18 WBC RBC Hgb Hct MCH RDW Plt Count Lymph % (Auto) [place] % (Auto) Lymph # (Auto) [place] # (Auto) Seg Neutrophils % Seg Neuts % (Manual) Lymphocytes % (Manual) Monocytes % (Manual) Nucleated RBC % Seg Neutrophils # Seg Neutrophils # Man Lymphocytes # (Manual) Percent Retic PT INR Fibrinogen ABG pH POC ABG pO2 ABG pO2 ABG HCO3 ABG O2 Saturation ABG Base Excess ABG Hemoglobin VBG pO2 Oxyhemoglobin Sodium Potassium Chloride Carbon Dioxide BUN Creatinine Glucose POC Glucose 110 H 159 H Lactic Acid Calcium Phosphorus Magnesium Iron TIBC Ferritin Alkaline Phosphatase Lactate Dehydrogenase Troponin T C-Reactive Protein Total Protein Albumin LDL Cholesterol Direct Crossmatch Allied health notes reviewed: nursing
--- NOTE | 2021-12-28 17:10 | Event Note ---
Date: 12/28/21 The patient has a left arm AV graft with swelling of the arm and hand. Evaluation of the graft reveals increased pulsatility near the venous outflow. She is in need of a diagnostic fistulogram with possible intervention. I discussed the risk, benefits, and alternative procedures with the patient was expressed understanding and agrees to proceed. Tube feeds will be stopped after midnight. We will place her on the schedule for tomorrow morning.
[2021-12-28] MEDS: ceFAZolin/NS 1 GM/50 ML 1 GM/50 ML BAG IV SCH (17:11)
[2021-12-29] MEDS: INSULIN LISPRO 100 UNIT/ML SUB-Q SCH ×4 (00:16→17:03)
[2021-12-29] MEDS: VANCOMYCIN 250 MG/10 ML ORAL LIQD PO SCH (02:54)
[2021-12-29] MEDS: ISOSORB DINIT/HYDRALAZINE 20-37.5MG TAB PO SCH ×3 (06:09→21:39)
[2021-12-29 06:49] LABS: Hematocrit 22.1 % (30.3-42.9); Hemoglobin 7.5 gm/dl (10.1-14.3); Mean Corpuscular HGB Conc 34 % (30-34); Mean Corpuscular Volume 81 fl (79-97); Platelet Count 143 K/mm3 (140-440); Red Blood Count 2.73 M/mm3 (3.65-5.03)
[2021-12-29 07:08] LABS: Calcium 7.8 mg/dL (8.4-10.2)
[2021-12-29] MEDS: BUDESONIDE 0.5 MG/2 ML NEBU IH SCH ×2 (07:43→19:43)
[2021-12-29] MEDS: IPRATROPIUM/ALBUTEROL SULFATE 3 ML AMPUL.NEB IH SCH ×3 (07:43→19:44)
--- NOTE | 2021-12-29 08:04 | Progress Note ---
Assessment and Plan 66 years old female with history of hypertension, history of heart attack end- stage renal disease on hemodialysis and GERD was brought to the hospital because s/p fall, that occurred 2 days ago. States she did not trip or slip. States she felt dizzy and then found herself on the ground. Denies any CP, SOB, palpitations, diaphoresis prior to or after the fall. Has been having MCKEON,R hip, thigh, knee and leg pain since the fall. Patient also has ESRD and missed her last dialysis session. In the ER patient is found to have troponin of 0.168, BUN of 76 creatinine 9.2, potassium 4.4,CXR: pulmonary edema CT head: no acute intracranial process, CT C-spine: no fracture or traumatic subluxation CT pelvis: no acute fracture or dislocation, XR L spine: no fracture or traumatic subluxation XR R tib fib: no acute fracture or dislocatio,XR R femur: no acute fracture or dislocation, XR R hip with pelvis: no acute fracture or dislocation Going to admit the patient we will put the patient on chest pain pathway. Patient is on fall precaution Past Medical History: acute ND, ESRD, GERD, hypertension, renal failure Past Surgical History: Other (Right anterior chest hemodialysis port) Social history: no significant social history Family history: no significant family history, hypertension Patient transfered to telemetry. Patient sleeping. Opening eyes on verbal stimulation. Following some commands. Not well oriented. Patient weak. Patient is on 2 litres O2. O2 saturation 99%. No acute respiratory distress. Patient running low grade temp. No leukocytosis. Blood pressure 118/61 , Pulse 74, respirations 20. Chest xray done 12/22/21 reported Mild patchy opacities in both mid to lower lung zones have cleared. No new pulmonary or pleural abnormality. No pneumothorax. Patient is on Budesonide, albuterol/and atrovent aerosol treatments, Prevacid - Patient Problems (1) Pulmonary infiltrates Current Visit: Yes Status: Acute Plan to address problem: Patchy opacities in both mid to lower lung zones have cleared. No new pulmonary or pleural abnormality. No pneumothorax (2) Contusion of right lower extremity Current Visit: Yes Status: Acute Plan to address problem: Management as promary care and wound care. (3) Syncope Current Visit: Yes Status: Acute Plan to address problem: Blood pressure 118/61 Management as primary care and neurology. (4) ESRD (end stage renal disease) on dialysis Current Visit: Yes Status: Chronic Plan to address problem: Management as per nephrology. (5) Hypertension Current Visit: No Status: Chronic Plan to address problem: Management as per primary care. (6) Type 2 diabetes mellitus with diabetic chronic kidney disease Current Visit: No Status: Chronic Plan to address problem: Management as per primary care. (7) Rectal bleeding Current Visit: Yes Status: Acute Plan to address problem: Heparin was stopped. Management as per gastroenterology. Subjective Date of service: 12/29/21 Principal diagnosis: Septic shock ; Bacteremia; ESRD on dialysis; AMS; NSTEMI; HTN; DM II Interval history: 66 years old female with history of hypertension, history of heart attack end- stage renal disease on hemodialysis and GERD was brought to the hospital because s/p fall, that occurred 2 days ago. States she did not trip or slip. States she felt dizzy and then found herself on the ground. Denies any CP, SOB, palpitations, diaphoresis prior to or after the fall. Has been having MCKEON,R hip, thigh, knee and leg pain since the fall. Patient also has ESRD and missed her last dialysis session. In the ER patient is found to have troponin of 0.168, BUN of 76 creatinine 9.2, potassium 4.4,CXR: pulmonary edema CT head: no acute intracranial process, CT C-spine: no fracture or traumatic subluxation CT pelvis: no acute fracture or dislocation, XR L spine: no fracture or traumatic subluxation XR R tib fib: no acute fracture or dislocatio,XR R femur: no acute fracture or dislocation, XR R hip with pelvis: no acute fracture or dislocation Going to admit the patient we will put the patient on chest pain pathway. Patient is on fall precaution Past Medical History: acute ND, ESRD, GERD, hypertension, renal failure Past Surgical History: Other (Right anterior chest hemodialysis port) Social history: no significant social history Family history: no significant family history, hypertension Patient transfered to telemetry. Patient sleeping. Opening eyes on verbal stimulation. Following some commands. Not well oriented. Patient weak. Patient is on 2 litres O2. O2 saturation 99%. No acute respiratory distress. Patient running low grade temp. No leukocytosis. Blood pressure 118/61 , Pulse 74, respirations 20. Chest xray done 12/22/21 reported Mild patchy opacities in both mid to lower lung zones have cleared. No new pulmonary or pleural abnormality. No pneumothorax. Patient is on Budesonide, albuterol/and atrovent aerosol treatments, Prevacid Objective Vital Signs - 12hr 12/28/21 12/28/21 12/28/21 20:55 21:24 21:25 Temperature Pulse Rate 80 80 Pulse Rate [ 76 Anterior Bilateral Throughout] Respiratory Rate Respiratory 16 Rate [Anterior Bilateral Throughout] Blood Pressure 145/55 145/55 Blood Pressure [Left] O2 Sat by Pulse 100 Oximetry 12/28/21 12/28/21 12/29/21 22:00 23:37 03:55 Temperature 98.8 F 98.2 F Pulse Rate 77 77 78 Pulse Rate [ Anterior Bilateral Throughout] Respiratory 18 20 16 Rate Respiratory Rate [Anterior Bilateral Throughout] Blood Pressure 135/59 Blood Pressure 138/56 [Left] O2 Sat by Pulse 98 100 97 Oximetry 12/29/21 12/29/21 06:09 07:38 Temperature 99.0 F Pulse Rate 78 74 Pulse Rate [ Anterior Bilateral Throughout] Respiratory 20 Rate Respiratory Rate [Anterior Bilateral Throughout] Blood Pressure 135/59 118/61 Blood Pressure [Left] O2 Sat by Pulse 100 Oximetry Constitutional: no acute distress, asleep, other (elderly female with normal respiratory effort at rest) Eyes: non-icteric ENT: oropharynx moist, other (extubated) Neck: supple, no JVD Effort: normal Ascultation: Bilateral: rhonchi (scant) Percussion: Bilateral: not dull Cardiovascular: regular rate and rhythm Gastrointestinal: normoactive bowel sounds, soft, non-tender, non-distended (protuberant) Integumentary: rash (right groin / ? scar), other (Left upper extremity AV graft; right forearm blisters (open and closed) and induration; no pus) Extremities: no cyanosis, pulses normal, no ischemia or petechiae, edema (right upper extremity) Neurologic: non-focal exam (grossly), pupils equal and round, CN II-XII normal, motor strength normal and Psychiatric: mood appropriate, affect normal CBC and BMP: 12/29/21 06:30 12/29/21 06:30 ABG, PT/INR, D-dimer: ABG ABG pH 7.450 pH Units (7.350-7.450) 12/24/21 Unknown POC ABG pCO2 36.0 mmHg (32.0-48.0) 12/21/21 10:20 ABG pCO2 39.1 mm Hg 12/24/21 Unknown POC ABG pO2 126.1 mmHg (83-108) H 12/21/21 10:20 ABG pO2 109.1 mm Hg (80.0-90.0) H 12/24/21 Unknown POC ABG HCO3 24.3 12/21/21 10:20 ABG O2 Saturation 98.1 % (95.0-99.0) 12/24/21 Unknown PT/INR, D-dimer PT 17.7 Sec. (12.2-14.9) H 12/22/21 14:05 INR 1.30 (0.87-1.13) H 12/22/21 14:05 Abnormal lab findings: Abnormal Labs 12/11/21 12/11/21 12/12/21 14:52 15:40 04:43 WBC RBC 3.57 L Hgb 9.4 L Hct 29.5 L MCH 26 L 27 L RDW 17.8 H 17.9 H Plt Count 119 L 110 L Lymph % (Auto) 4.0 L Sampson % (Auto) Lymph # (Auto) 0.3 L Sampson # (Auto) Seg Neutrophils % 90.0 H Seg Neuts % (Manual) Lymphocytes % (Manual) Monocytes % (Manual) Nucleated RBC % Seg Neutrophils # Seg Neutrophils # Man Lymphocytes # (Manual) Percent Retic PT INR Fibrinogen ABG pH POC ABG pO2 ABG pO2 ABG HCO3 ABG O2 Saturation ABG Base Excess ABG Hemoglobin VBG pO2 Oxyhemoglobin Sodium Potassium Chloride Carbon Dioxide 18 L BUN 76 H Creatinine 9.2 H Glucose POC Glucose Lactic Acid Calcium 7.7 L Phosphorus Magnesium Iron TIBC Ferritin Alkaline Phosphatase 237 H Lactate Dehydrogenase Troponin T 0.168 H* C-Reactive Protein Total Protein Albumin 3.6 L LDL Cholesterol Direct 16 L Crossmatch 12/12/21 12/12/21 12/12/21 04:43 04:43 08:49 WBC RBC Hgb Hct MCH RDW Plt Count Lymph % (Auto) Sampson % (Auto) Lymph # (Auto) Sampson # (Auto) Seg Neutrophils % Seg Neuts % (Manual) Lymphocytes % (Manual) Monocytes % (Manual) Nucleated RBC % Seg Neutrophils # Seg Neutrophils # Man Lymphocytes # (Manual) Percent Retic PT INR Fibrinogen ABG pH POC ABG pO2 ABG pO2 ABG HCO3 ABG O2 Saturation ABG Base Excess ABG Hemoglobin VBG pO2 Oxyhemoglobin Sodium 136 L Potassium Chloride 96.0 L Carbon Dioxide BUN 85 H Creatinine 9.6 H Glucose 57 L POC Glucose 47 L Lactic Acid Calcium 7.8 L Phosphorus Magnesium Iron TIBC Ferritin Alkaline Phosphatase Lactate Dehydrogenase Troponin T 0.175 H* C-Reactive Protein Total Protein Albumin LDL Cholesterol Direct Crossmatch 12/12/21 12/13/21 12/13/21 11:12 07:30 07:30 WBC RBC Hgb 9.7 L Hct 30.0 L MCH 27 L RDW 18.0 H Plt Count 99 L Lymph % (Auto) 4.8 L Sampson % (Auto) Lymph # (Auto) 0.3 L Sampson # (Auto) Seg Neutrophils % 88.2 H Seg Neuts % (Manual) Lymphocytes % (Manual) Monocytes % (Manual) Nucleated RBC % Seg Neutrophils # Seg Neutrophils # Man Lymphocytes # (Manual) Percent Retic PT INR Fibrinogen ABG pH POC ABG pO2 ABG pO2 ABG HCO3 ABG O2 Saturation ABG Base Excess ABG Hemoglobin VBG pO2 Oxyhemoglobin Sodium Potassium 5.1 H Chloride 97.8 L Carbon Dioxide 16 L BUN 92 H Creatinine 10.6 H Glucose 121 H POC Glucose 64 L Lactic Acid Calcium 7.6 L Phosphorus Magnesium Iron TIBC Ferritin Alkaline Phosphatase Lactate Dehydrogenase Troponin T C-Reactive Protein Total Protein Albumin LDL Cholesterol Direct Crossmatch 12/13/21 12/13/21 12/13/21 08:06 11:32 16:59 WBC RBC Hgb Hct MCH RDW Plt Count Lymph % (Auto) Sampson % (Auto) Lymph # (Auto) Sampson # (Auto) Seg Neutrophils % Seg Neuts % (Manual) Lymphocytes % (Manual) Monocytes % (Manual) Nucleated RBC % Seg Neutrophils # Seg Neutrophils # Man Lymphocytes # (Manual) Percent Retic PT INR Fibrinogen ABG pH POC ABG pO2 ABG pO2 ABG HCO3 ABG O2 Saturation ABG Base Excess ABG Hemoglobin VBG pO2 Oxyhemoglobin Sodium Potassium Chloride Carbon Dioxide BUN Creatinine Glucose POC Glucose 118 H 128 H 130 H Lactic Acid Calcium Phosphorus Magnesium Iron TIBC Ferritin Alkaline Phosphatase Lactate Dehydrogenase Troponin T C-Reactive Protein Total Protein Albumin LDL Cholesterol Direct Crossmatch 04/30/22 05/01/22 05/01/22 20:16 11:10 11:10 WBC RBC Hgb 9.9 L Hct MCH 27 L RDW 18.1 H Plt Count 82 L Lymph % (Auto) 5.8 L Sampson % (Auto) Lymph # (Auto) 0.4 L Sampson # (Auto) Seg Neutrophils % 88.3 H Seg Neuts % (Manual) Lymphocytes % (Manual) Monocytes % (Manual) Nucleated RBC % Seg Neutrophils # Seg Neutrophils # Man Lymphocytes # (Manual) Percent Retic PT INR Fibrinogen ABG pH POC ABG pO2 ABG pO2 ABG HCO3 ABG O2 Saturation ABG Base Excess ABG Hemoglobin VBG pO2 Oxyhemoglobin Sodium Potassium Chloride Carbon Dioxide 21 L BUN 57 H Creatinine 7.1 H Glucose 105 H POC Glucose 113 H Lactic Acid Calcium Phosphorus Magnesium Iron TIBC Ferritin Alkaline Phosphatase Lactate Dehydrogenase Troponin T C-Reactive Protein Total Protein Albumin LDL Cholesterol Direct Crossmatch 12/14/21 12/14/21 12/15/21 11:46 16:41 04:11 WBC RBC Hgb 9.9 L Hct 30.0 L MCH 27 L RDW 18.4 H Plt Count 57 L Lymph % (Auto) Sampson % (Auto) Lymph # (Auto) Sampson # (Auto) Seg Neutrophils % Seg Neuts % (Manual) Lymphocytes % (Manual) 9.0 L Monocytes % (Manual) 10.0 H Nucleated RBC % Seg Neutrophils # Seg Neutrophils # Man Lymphocytes # (Manual) 0.6 L Percent Retic PT INR Fibrinogen ABG pH POC ABG pO2 ABG pO2 ABG HCO3 ABG O2 Saturation ABG Base Excess ABG Hemoglobin VBG pO2 Oxyhemoglobin Sodium Potassium Chloride Carbon Dioxide BUN Creatinine Glucose POC Glucose 108 H 111 H Lactic Acid Calcium Phosphorus Magnesium Iron TIBC Ferritin Alkaline Phosphatase Lactate Dehydrogenase Troponin T C-Reactive Protein Total Protein Albumin LDL Cholesterol Direct Crossmatch 12/15/21 12/15/21 12/15/21 04:11 08:48 10:02 WBC RBC Hgb Hct MCH RDW Plt Count Lymph % (Auto) Sampson % (Auto) Lymph # (Auto) Sampson # (Auto) Seg Neutrophils % Seg Neuts % (Manual) Lymphocytes % (Manual) Monocytes % (Manual) Nucleated RBC % Seg Neutrophils # Seg Neutrophils # Man Lymphocytes # (Manual) Percent Retic PT INR Fibrinogen ABG pH POC ABG pO2 ABG pO2 ABG HCO3 ABG O2 Saturation ABG Base Excess ABG Hemoglobin VBG pO2 Oxyhemoglobin Sodium Potassium Chloride Carbon Dioxide 19 L BUN 68 H Creatinine 7.6 H Glucose POC Glucose 68 L 65 L Lactic Acid Calcium 8.1 L Phosphorus Magnesium Iron TIBC Ferritin Alkaline Phosphatase Lactate Dehydrogenase Troponin T C-Reactive Protein Total Protein Albumin LDL Cholesterol Direct Crossmatch 12/15/21 12/15/21 12/15/21 10:20 10:51 14:40 WBC RBC Hgb Hct MCH RDW Plt Count Lymph % (Auto) Sampson % (Auto) Lymph # (Auto) Sampson # (Auto) Seg Neutrophils % Seg Neuts % (Manual) Lymphocytes % (Manual) Monocytes % (Manual) Nucleated RBC % Seg Neutrophils # Seg Neutrophils # Man Lymphocytes # (Manual) Percent Retic PT INR Fibrinogen ABG pH POC ABG pO2 ABG pO2 ABG HCO3 ABG O2 Saturation ABG Base Excess ABG Hemoglobin VBG pO2 Oxyhemoglobin Sodium Potassium Chloride Carbon Dioxide BUN Creatinine Glucose POC Glucose 59 L 60 L Lactic Acid 2.50 H* Calcium Phosphorus Magnesium Iron TIBC Ferritin Alkaline Phosphatase Lactate Dehydrogenase Troponin T C-Reactive Protein Total Protein Albumin LDL Cholesterol Direct Crossmatch 12/15/21 12/15/21 12/16/21 14:40 19:50 05:00 WBC 12.4 H RBC Hgb 9.6 L Hct 29.4 L MCH 26 L RDW 18.1 H Plt Count 40 L Lymph % (Auto) Sampson % (Auto) Lymph # (Auto) Sampson # (Auto) Seg Neutrophils % Seg Neuts % (Manual) 95.0 H Lymphocytes % (Manual) 5.0 L Monocytes % (Manual) Nucleated RBC % Seg Neutrophils # Seg Neutrophils # Man 11.8 H Lymphocytes # (Manual) 0.6 L Percent Retic PT INR Fibrinogen ABG pH POC ABG pO2 ABG pO2 463.3 H ABG HCO3 ABG O2 Saturation 99.6 H ABG Base Excess ABG Hemoglobin 10.9 L VBG pO2 > 258.0 H Oxyhemoglobin Sodium Potassium Chloride Carbon Dioxide BUN Creatinine Glucose POC Glucose Lactic Acid Calcium Phosphorus Magnesium Iron TIBC Ferritin Alkaline Phosphatase Lactate Dehydrogenase Troponin T C-Reactive Protein 38.50 H Total Protein Albumin LDL Cholesterol Direct Crossmatch 12/16/21 12/16/21 12/16/21 05:00 06:15 09:58 WBC RBC Hgb Hct MCH RDW Plt Count Lymph % (Auto) Sampson % (Auto) Lymph # (Auto) Sampson # (Auto) Seg Neutrophils % Seg Neuts % (Manual) Lymphocytes % (Manual) Monocytes % (Manual) Nucleated RBC % Seg Neutrophils # Seg Neutrophils # Man Lymphocytes # (Manual) Percent Retic PT INR Fibrinogen ABG pH POC ABG pO2 ABG pO2 48.0 L ABG HCO3 ABG O2 Saturation 80.5 L ABG Base Excess -2.9 L ABG Hemoglobin 11.2 L VBG pO2 Oxyhemoglobin 78.8 L Sodium Potassium Chloride Carbon Dioxide BUN 75 H Creatinine 7.7 H Glucose POC Glucose 67 L Lactic Acid Calcium 8.3 L Phosphorus Magnesium Iron TIBC Ferritin Alkaline Phosphatase Lactate Dehydrogenase Troponin T C-Reactive Protein Total Protein Albumin LDL Cholesterol Direct Crossmatch 12/16/21 12/16/21 12/17/21 11:06 23:24 04:00 WBC 12.3 H RBC 3.32 L Hgb 8.8 L Hct 26.5 L MCH 26 L RDW 18.0 H Plt Count 27 L Lymph % (Auto) 5.9 L Sampson % (Auto) Lymph # (Auto) 0.7 L Sampson # (Auto) Seg Neutrophils % 88.3 H Seg Neuts % (Manual) Lymphocytes % (Manual) Monocytes % (Manual) Nucleated RBC % Seg Neutrophils # 10.9 H Seg Neutrophils # Man Lymphocytes # (Manual) Percent Retic PT INR Fibrinogen ABG pH POC ABG pO2 ABG pO2 137.7 H ABG HCO3 ABG O2 Saturation ABG Base Excess ABG Hemoglobin 9.9 L VBG pO2 Oxyhemoglobin Sodium Potassium Chloride Carbon Dioxide BUN Creatinine Glucose POC Glucose 110 H Lactic Acid Calcium Phosphorus Magnesium Iron TIBC Ferritin Alkaline Phosphatase Lactate Dehydrogenase Troponin T C-Reactive Protein Total Protein Albumin LDL Cholesterol Direct Crossmatch 12/17/21 12/17/21 12/17/21 04:30 04:30 11:18 WBC RBC Hgb Hct MCH RDW Plt Count Lymph % (Auto) Sampson % (Auto) Lymph # (Auto) Sampson # (Auto) Seg Neutrophils % Seg Neuts % (Manual) Lymphocytes % (Manual) Monocytes % (Manual) Nucleated RBC % Seg Neutrophils # Seg Neutrophils # Man Lymphocytes # (Manual) Percent Retic PT INR Fibrinogen ABG pH POC ABG pO2 ABG pO2 ABG HCO3 ABG O2 Saturation ABG Base Excess ABG Hemoglobin VBG pO2 Oxyhemoglobin Sodium Potassium Chloride Carbon Dioxide BUN 43 H Creatinine 5.0 H Glucose 129 H POC Glucose 149 H Lactic Acid Calcium 7.8 L Phosphorus 1.90 L Magnesium 1.60 L Iron TIBC Ferritin Alkaline Phosphatase Lactate Dehydrogenase Troponin T C-Reactive Protein Total Protein Albumin LDL Cholesterol Direct Crossmatch 12/17/21 12/17/21 12/17/21 14:35 16:58 18:32 WBC RBC Hgb Hct MCH RDW Plt Count Lymph % (Auto) Sampson % (Auto) Lymph # (Auto) Sampson # (Auto) Seg Neutrophils % Seg Neuts % (Manual) Lymphocytes % (Manual) Monocytes % (Manual) Nucleated RBC % Seg Neutrophils # Seg Neutrophils # Man Lymphocytes # (Manual) Percent Retic PT 17.4 H INR 1.27 H Fibrinogen 486 H ABG pH 7.316 L POC ABG pO2 ABG pO2 74.0 L ABG HCO3 ABG O2 Saturation 93.7 L ABG Base Excess -3.3 L ABG Hemoglobin 8.8 L VBG pO2 Oxyhemoglobin 91.7 L Sodium Potassium Chloride Carbon Dioxide BUN Creatinine Glucose POC Glucose 219 H Lactic Acid Calcium Phosphorus Magnesium Iron TIBC Ferritin Alkaline Phosphatase Lactate Dehydrogenase Troponin T C-Reactive Protein Total Protein Albumin LDL Cholesterol Direct Crossmatch 12/17/21 12/18/21 12/18/21 23:19 05:00 05:00 WBC 15.3 H RBC 3.25 L Hgb 8.4 L Hct 25.7 L MCH 26 L RDW 18.2 H Plt Count 28 L Lymph % (Auto) Sampson % (Auto) Lymph # (Auto) Sampson # (Auto) Seg Neutrophils % Seg Neuts % (Manual) 99.0 H Lymphocytes % (Manual) 1.0 L Monocytes % (Manual) Nucleated RBC % 1.0 H Seg Neutrophils # Seg Neutrophils # Man 15.1 H Lymphocytes # (Manual) 0.2 L Percent Retic 0.37 L PT INR Fibrinogen ABG pH POC ABG pO2 ABG pO2 ABG HCO3 ABG O2 Saturation ABG Base Excess ABG Hemoglobin VBG pO2 Oxyhemoglobin Sodium 135 L Potassium Chloride Carbon Dioxide 20 L BUN 53 H Creatinine 5.2 H Glucose 307 H POC Glucose 313 H Lactic Acid Calcium 8.0 L Phosphorus Magnesium Iron 13 L TIBC 109 L Ferritin Alkaline Phosphatase Lactate Dehydrogenase Troponin T C-Reactive Protein Total Protein Albumin LDL Cholesterol Direct Crossmatch 12/18/21 12/18/21 12/18/21 05:00 05:00 09:00 WBC RBC Hgb Hct MCH RDW Plt Count Lymph % (Auto) Sampson % (Auto) Lymph # (Auto) Sampson # (Auto) Seg Neutrophils % Seg Neuts % (Manual) Lymphocytes % (Manual) Monocytes % (Manual) Nucleated RBC % Seg Neutrophils # Seg Neutrophils # Man Lymphocytes # (Manual) Percent Retic PT INR Fibrinogen 481 H ABG pH POC ABG pO2 ABG pO2 50.2 L ABG HCO3 ABG O2 Saturation 81.7 L ABG Base Excess -3.6 L ABG Hemoglobin 8.0 L VBG pO2 Oxyhemoglobin 80.0 L Sodium Potassium Chloride Carbon Dioxide BUN Creatinine Glucose POC Glucose Lactic Acid Calcium Phosphorus Magnesium Iron TIBC Ferritin 383.4 H Alkaline Phosphatase Lactate Dehydrogenase Troponin T C-Reactive Protein Total Protein Albumin LDL Cholesterol Direct Crossmatch 12/18/21 12/18/21 12/18/21 10:56 11:10 12:00 WBC RBC Hgb Hct MCH RDW Plt Count Lymph % (Auto) Sampson % (Auto) Lymph # (Auto) Sampson # (Auto) Seg Neutrophils % Seg Neuts % (Manual) Lymphocytes % (Manual) Monocytes % (Manual) Nucleated RBC % Seg Neutrophils # Seg Neutrophils # Man Lymphocytes # (Manual) Percent Retic PT INR Fibrinogen ABG pH POC ABG pO2 ABG pO2 92.7 H ABG HCO3 19.8 L ABG O2 Saturation ABG Base Excess -3.8 L ABG Hemoglobin 6.6 L VBG pO2 Oxyhemoglobin Sodium Potassium Chloride Carbon Dioxide BUN Creatinine Glucose POC Glucose 190 H Lactic Acid Calcium Phosphorus 2.40 L D Magnesium Iron TIBC Ferritin Alkaline Phosphatase Lactate Dehydrogenase Troponin T C-Reactive Protein Total Protein Albumin LDL Cholesterol Direct Crossmatch 12/18/21 12/18/21 12/18/21 18:06 20:00 23:05 WBC 19.2 H RBC 3.51 L Hgb 8.8 L Hct 27.8 L MCH 25 L RDW 18.1 H Plt Count 34 L Lymph % (Auto) Sampson % (Auto) Lymph # (Auto) Sampson # (Auto) Seg Neutrophils % Seg Neuts % (Manual) Lymphocytes % (Manual) Monocytes % (Manual) Nucleated RBC % Seg Neutrophils # Seg Neutrophils # Man Lymphocytes # (Manual) Percent Retic PT INR Fibrinogen ABG pH POC ABG pO2 ABG pO2 62.5 L ABG HCO3 26.6 H ABG O2 Saturation 91.7 L ABG Base Excess ABG Hemoglobin 8.4 L VBG pO2 Oxyhemoglobin 89.9 L Sodium Potassium Chloride Carbon Dioxide BUN Creatinine Glucose POC Glucose 156 H Lactic Acid Calcium Phosphorus Magnesium Iron TIBC Ferritin Alkaline Phosphatase Lactate Dehydrogenase Troponin T C-Reactive Protein Total Protein Albumin LDL Cholesterol Direct Crossmatch 12/18/21 12/19/21 12/19/21 23:54 05:00 05:00 WBC 18.9 H RBC 3.29 L Hgb 8.4 L Hct 26.0 L MCH 26 L RDW 18.2 H Plt Count 34 L Lymph % (Auto) Sampson % (Auto) Lymph # (Auto) Sampson # (Auto) Seg Neutrophils % Seg Neuts % (Manual) 93.0 H Lymphocytes % (Manual) 2.0 L Monocytes % (Manual) Nucleated RBC % Seg Neutrophils # Seg Neutrophils # Man 17.6 H Lymphocytes # (Manual) 0.4 L Percent Retic PT INR Fibrinogen ABG pH POC ABG pO2 ABG pO2 ABG HCO3 ABG O2 Saturation ABG Base Excess ABG Hemoglobin VBG pO2 Oxyhemoglobin Sodium Potassium Chloride Carbon Dioxide BUN 30 H Creatinine 3.1 H Glucose 155 H POC Glucose 122 H Lactic Acid Calcium 8.2 L Phosphorus Magnesium Iron TIBC Ferritin Alkaline Phosphatase Lactate Dehydrogenase Troponin T C-Reactive Protein Total Protein Albumin LDL Cholesterol Direct Crossmatch 12/19/21 12/19/21 12/19/21 05:29 11:41 17:48 WBC RBC Hgb Hct MCH RDW Plt Count Lymph % (Auto) Sampson % (Auto) Lymph # (Auto) Sampson # (Auto) Seg Neutrophils % Seg Neuts % (Manual) Lymphocytes % (Manual) Monocytes % (Manual) Nucleated RBC % Seg Neutrophils # Seg Neutrophils # Man Lymphocytes # (Manual) Percent Retic PT INR Fibrinogen ABG pH POC ABG pO2 ABG pO2 ABG HCO3 ABG O2 Saturation ABG Base Excess ABG Hemoglobin VBG pO2 Oxyhemoglobin Sodium Potassium Chloride Carbon Dioxide BUN Creatinine Glucose POC Glucose 153 H 164 H 113 H Lactic Acid Calcium Phosphorus Magnesium Iron TIBC Ferritin Alkaline Phosphatase Lactate Dehydrogenase Troponin T C-Reactive Protein Total Protein Albumin LDL Cholesterol Direct Crossmatch 12/19/21 12/20/21 12/20/21 23:53 04:45 04:45 WBC 15.0 H RBC 3.39 L Hgb 8.4 L Hct 26.8 L MCH 25 L RDW 17.8 H Plt Count 36 L Lymph % (Auto) Sampson % (Auto) Lymph # (Auto) Sampson # (Auto) Seg Neutrophils % Seg Neuts % (Manual) Lymphocytes % (Manual) Monocytes % (Manual) Nucleated RBC % Seg Neutrophils # Seg Neutrophils # Man Lymphocytes # (Manual) Percent Retic PT INR Fibrinogen ABG pH POC ABG pO2 ABG pO2 ABG HCO3 ABG O2 Saturation ABG Base Excess ABG Hemoglobin VBG pO2 Oxyhemoglobin Sodium 135 L Potassium Chloride 96.1 L Carbon Dioxide BUN 48 H Creatinine 3.9 H Glucose 188 H POC Glucose 157 H Lactic Acid Calcium 8.1 L Phosphorus Magnesium Iron TIBC Ferritin Alkaline Phosphatase Lactate Dehydrogenase Troponin T C-Reactive Protein Total Protein Albumin LDL Cholesterol Direct Crossmatch 12/20/21 12/20/21 12/20/21 05:07 11:13 16:35 WBC RBC Hgb Hct MCH RDW Plt Count Lymph % (Auto) Sampson % (Auto) Lymph # (Auto) Sampson # (Auto) Seg Neutrophils % Seg Neuts % (Manual) Lymphocytes % (Manual) Monocytes % (Manual) Nucleated RBC % Seg Neutrophils # Seg Neutrophils # Man Lymphocytes # (Manual) Percent Retic PT INR Fibrinogen ABG pH POC ABG pO2 ABG pO2 ABG HCO3 ABG O2 Saturation ABG Base Excess ABG Hemoglobin VBG pO2 Oxyhemoglobin Sodium Potassium Chloride Carbon Dioxide BUN Creatinine Glucose POC Glucose 169 H 198 H 198 H Lactic Acid Calcium Phosphorus Magnesium Iron TIBC Ferritin Alkaline Phosphatase Lactate Dehydrogenase Troponin T C-Reactive Protein Total Protein Albumin LDL Cholesterol Direct Crossmatch 12/20/21 12/21/21 12/21/21 23:50 05:58 08:00 WBC 16.7 H RBC Hgb 9.3 L Hct 29.2 L MCH 25 L RDW 18.5 H Plt Count 62 L Lymph % (Auto) Sampson % (Auto) Lymph # (Auto) Sampson # (Auto) Seg Neutrophils % Seg Neuts % (Manual) Lymphocytes % (Manual) Monocytes % (Manual) Nucleated RBC % Seg Neutrophils # Seg Neutrophils # Man Lymphocytes # (Manual) Percent Retic PT INR Fibrinogen ABG pH POC ABG pO2 ABG pO2 ABG HCO3 ABG O2 Saturation ABG Base Excess ABG Hemoglobin VBG pO2 Oxyhemoglobin Sodium Potassium Chloride Carbon Dioxide BUN Creatinine Glucose POC Glucose 176 H 185 H Lactic Acid Calcium Phosphorus Magnesium Iron TIBC Ferritin Alkaline Phosphatase Lactate Dehydrogenase Troponin T C-Reactive Protein Total Protein Albumin LDL Cholesterol Direct Crossmatch 12/21/21 12/21/21 12/21/21 08:35 08:35 10:20 WBC RBC Hgb Hct MCH RDW Plt Count Lymph % (Auto) Sampson % (Auto) Lymph # (Auto) Sampson # (Auto) Seg Neutrophils % Seg Neuts % (Manual) Lymphocytes % (Manual) Monocytes % (Manual) Nucleated RBC % Seg Neutrophils # Seg Neutrophils # Man Lymphocytes # (Manual) Percent Retic PT 16.4 H INR 1.18 H Fibrinogen ABG pH POC ABG pO2 126.1 H ABG pO2 ABG HCO3 ABG O2 Saturation ABG Base Excess ABG Hemoglobin 11.1 L VBG pO2 Oxyhemoglobin Sodium Potassium 3.5 L Chloride Carbon Dioxide BUN 36 H Creatinine 2.7 H Glucose 174 H POC Glucose Lactic Acid Calcium 8.3 L Phosphorus Magnesium Iron TIBC Ferritin Alkaline Phosphatase Lactate Dehydrogenase 249 H Troponin T C-Reactive Protein Total Protein Albumin LDL Cholesterol Direct Crossmatch 12/21/21 12/21/21 12/21/21 11:18 17:14 18:00 WBC 20.2 H RBC Hgb 9.9 L Hct MCH 25 L RDW 18.0 H Plt Count 60 L Lymph % (Auto) Sampson % (Auto) Lymph # (Auto) Sampson # (Auto) Seg Neutrophils % Seg Neuts % (Manual) Lymphocytes % (Manual) Monocytes % (Manual) Nucleated RBC % Seg Neutrophils # Seg Neutrophils # Man Lymphocytes # (Manual) Percent Retic PT INR Fibrinogen ABG pH POC ABG pO2 ABG pO2 ABG HCO3 ABG O2 Saturation ABG Base Excess ABG Hemoglobin VBG pO2 Oxyhemoglobin Sodium Potassium Chloride Carbon Dioxide BUN Creatinine Glucose POC Glucose 181 H 222 H Lactic Acid Calcium Phosphorus Magnesium Iron TIBC Ferritin Alkaline Phosphatase Lactate Dehydrogenase Troponin T C-Reactive Protein Total Protein Albumin LDL Cholesterol Direct Crossmatch 12/21/21 12/21/21 12/22/21 19:26 23:28 04:14 WBC 23.9 H RBC Hgb Hct MCH 25 L RDW 17.8 H Plt Count 68 L Lymph % (Auto) Sampson % (Auto) Lymph # (Auto) Sampson # (Auto) Seg Neutrophils % Seg Neuts % (Manual) Lymphocytes % (Manual) Monocytes % (Manual) Nucleated RBC % Seg Neutrophils # Seg Neutrophils # Man Lymphocytes # (Manual) Percent Retic PT INR Fibrinogen ABG pH POC ABG pO2 ABG pO2 ABG HCO3 ABG O2 Saturation ABG Base Excess ABG Hemoglobin VBG pO2 Oxyhemoglobin Sodium Potassium Chloride Carbon Dioxide BUN Creatinine Glucose POC Glucose 214 H 260 H Lactic Acid Calcium Phosphorus Magnesium Iron TIBC Ferritin Alkaline Phosphatase Lactate Dehydrogenase Troponin T C-Reactive Protein Total Protein Albumin LDL Cholesterol Direct Crossmatch 12/22/21 12/22/21 12/22/21 04:14 05:28 11:12 WBC RBC Hgb Hct MCH RDW Plt Count Lymph % (Auto) Sampson % (Auto) Lymph # (Auto) Sampson # (Auto) Seg Neutrophils % Seg Neuts % (Manual) Lymphocytes % (Manual) Monocytes % (Manual) Nucleated RBC % Seg Neutrophils # Seg Neutrophils # Man Lymphocytes # (Manual) Percent Retic PT INR Fibrinogen ABG pH POC ABG pO2 ABG pO2 ABG HCO3 ABG O2 Saturation ABG Base Excess ABG Hemoglobin VBG pO2 Oxyhemoglobin Sodium 136 L Potassium 3.0 L Chloride Carbon Dioxide BUN 52 H Creatinine 3.5 H Glucose 202 H POC Glucose 223 H 191 H Lactic Acid Calcium 8.1 L Phosphorus Magnesium Iron TIBC Ferritin Alkaline Phosphatase Lactate Dehydrogenase Troponin T C-Reactive Protein Total Protein Albumin LDL Cholesterol Direct Crossmatch 12/22/21 12/22/21 12/23/21 14:05 17:57 04:39 WBC 21.1 H RBC Hgb 10.0 L Hct MCH 26 L RDW 17.6 H Plt Count 79 L Lymph % (Auto) Sampson % (Auto) Lymph # (Auto) Sampson # (Auto) Seg Neutrophils % Seg Neuts % (Manual) Lymphocytes % (Manual) Monocytes % (Manual) Nucleated RBC % Seg Neutrophils # Seg Neutrophils # Man Lymphocytes # (Manual) Percent Retic PT 17.7 H INR 1.30 H Fibrinogen ABG pH POC ABG pO2 ABG pO2 ABG HCO3 ABG O2 Saturation ABG Base Excess ABG Hemoglobin VBG pO2 Oxyhemoglobin Sodium Potassium Chloride Carbon Dioxide BUN Creatinine Glucose POC Glucose 140 H Lactic Acid Calcium Phosphorus Magnesium Iron TIBC Ferritin Alkaline Phosphatase Lactate Dehydrogenase Troponin T C-Reactive Protein Total Protein Albumin LDL Cholesterol Direct Crossmatch 12/23/21 12/23/21 12/23/21 04:39 05:11 11:44 WBC RBC Hgb Hct MCH RDW Plt Count Lymph % (Auto) Sampson % (Auto) Lymph # (Auto) Sampson # (Auto) Seg Neutrophils % Seg Neuts % (Manual) Lymphocytes % (Manual) Monocytes % (Manual) Nucleated RBC % Seg Neutrophils # Seg Neutrophils # Man Lymphocytes # (Manual) Percent Retic PT INR Fibrinogen ABG pH POC ABG pO2 ABG pO2 ABG HCO3 ABG O2 Saturation ABG Base Excess ABG Hemoglobin VBG pO2 Oxyhemoglobin Sodium 136 L Potassium Chloride Carbon Dioxide 19 L BUN 61 H Creatinine 4.5 H Glucose 113 H POC Glucose 109 H 132 H Lactic Acid Calcium 7.9 L Phosphorus 4.90 H Magnesium Iron TIBC Ferritin Alkaline Phosphatase Lactate Dehydrogenase Troponin T C-Reactive Protein Total Protein Albumin LDL Cholesterol Direct Crossmatch 12/23/21 12/23/21 12/23/21 14:05 16:20 16:59 WBC RBC Hgb 9.3 L Hct 28.7 L MCH RDW Plt Count Lymph % (Auto) Sampson % (Auto) Lymph # (Auto) Sampson # (Auto) Seg Neutrophils % Seg Neuts % (Manual) Lymphocytes % (Manual) Monocytes % (Manual) Nucleated RBC % Seg Neutrophils # Seg Neutrophils # Man Lymphocytes # (Manual) Percent Retic PT INR Fibrinogen ABG pH POC ABG pO2 ABG pO2 ABG HCO3 ABG O2 Saturation ABG Base Excess ABG Hemoglobin VBG pO2 Oxyhemoglobin Sodium Potassium Chloride Carbon Dioxide BUN Creatinine Glucose POC Glucose 180 H Lactic Acid Calcium Phosphorus Magnesium Iron TIBC Ferritin Alkaline Phosphatase Lactate Dehydrogenase Troponin T C-Reactive Protein Total Protein Albumin LDL Cholesterol Direct Crossmatch See Detail 12/23/21 12/23/21 12/24/21 21:44 23:30 03:45 WBC RBC Hgb Hct MCH RDW Plt Count Lymph % (Auto) Sampson % (Auto) Lymph # (Auto) Sampson # (Auto) Seg Neutrophils % Seg Neuts % (Manual) Lymphocytes % (Manual) Monocytes % (Manual) Nucleated RBC % Seg Neutrophils # Seg Neutrophils # Man Lymphocytes # (Manual) Percent Retic PT INR Fibrinogen ABG pH POC ABG pO2 ABG pO2 ABG HCO3 ABG O2 Saturation ABG Base Excess ABG Hemoglobin VBG pO2 Oxyhemoglobin Sodium Potassium Chloride Carbon Dioxide BUN Creatinine Glucose POC Glucose 141 H 146 H 199 H Lactic Acid Calcium Phosphorus Magnesium Iron TIBC Ferritin Alkaline Phosphatase Lactate Dehydrogenase Troponin T C-Reactive Protein Total Protein Albumin LDL Cholesterol Direct Crossmatch 12/24/21 12/24/21 12/24/21 06:00 06:00 12:37 WBC 16.8 H RBC 2.96 L Hgb 7.5 L Hct 23.3 L MCH 26 L RDW 17.8 H Plt Count 89 L Lymph % (Auto) Sampson % (Auto) Lymph # (Auto) Sampson # (Auto) Seg Neutrophils % Seg Neuts % (Manual) Lymphocytes % (Manual) Monocytes % (Manual) Nucleated RBC % Seg Neutrophils # Seg Neutrophils # Man Lymphocytes # (Manual) Percent Retic PT INR Fibrinogen ABG pH POC ABG pO2 ABG pO2 ABG HCO3 ABG O2 Saturation ABG Base Excess ABG Hemoglobin VBG pO2 Oxyhemoglobin Sodium Potassium 3.3 L Chloride 97.3 L Carbon Dioxide BUN 31 H Creatinine 2.8 H Glucose 208 H POC Glucose 181 H Lactic Acid Calcium 7.6 L Phosphorus Magnesium Iron TIBC Ferritin Alkaline Phosphatase Lactate Dehydrogenase Troponin T C-Reactive Protein Total Protein Albumin LDL Cholesterol Direct Crossmatch 12/24/21 12/24/21 12/24/21 14:00 17:23 21:50 WBC RBC Hgb 7.4 L 8.8 L Hct 22.0 L 25.9 L MCH RDW Plt Count Lymph % (Auto) Sampson % (Auto) Lymph # (Auto) Sampson # (Auto) Seg Neutrophils % Seg Neuts % (Manual) Lymphocytes % (Manual) Monocytes % (Manual) Nucleated RBC % Seg Neutrophils # Seg Neutrophils # Man Lymphocytes # (Manual) Percent Retic PT INR Fibrinogen ABG pH POC ABG pO2 ABG pO2 ABG HCO3 ABG O2 Saturation ABG Base Excess ABG Hemoglobin VBG pO2 Oxyhemoglobin Sodium Potassium Chloride Carbon Dioxide BUN Creatinine Glucose POC Glucose 167 H Lactic Acid Calcium Phosphorus Magnesium Iron TIBC Ferritin Alkaline Phosphatase Lactate Dehydrogenase Troponin T C-Reactive Protein Total Protein Albumin LDL Cholesterol Direct Crossmatch 12/24/21 12/24/21 12/25/21 23:54 Unknown 05:12 WBC 17.4 H RBC 3.10 L Hgb 8.3 L Hct 24.7 L MCH 27 L RDW 17.7 H Plt Count 105 L Lymph % (Auto) Sampson % (Auto) Lymph # (Auto) Sampson # (Auto) Seg Neutrophils % Seg Neuts % (Manual) Lymphocytes % (Manual) Monocytes % (Manual) Nucleated RBC % Seg Neutrophils # Seg Neutrophils # Man Lymphocytes # (Manual) Percent Retic PT INR Fibrinogen ABG pH POC ABG pO2 ABG pO2 109.1 H ABG HCO3 26.6 H ABG O2 Saturation ABG Base Excess ABG Hemoglobin 6.8 L VBG pO2 Oxyhemoglobin Sodium Potassium Chloride Carbon Dioxide BUN Creatinine Glucose POC Glucose 174 H Lactic Acid Calcium Phosphorus Magnesium Iron TIBC Ferritin Alkaline Phosphatase Lactate Dehydrogenase Troponin T C-Reactive Protein Total Protein Albumin LDL Cholesterol Direct Crossmatch 12/25/21 12/25/21 12/25/21 05:12 05:27 11:08 WBC RBC Hgb Hct MCH RDW Plt Count Lymph % (Auto) Sampson % (Auto) Lymph # (Auto) Sampson # (Auto) Seg Neutrophils % Seg Neuts % (Manual) Lymphocytes % (Manual) Monocytes % (Manual) Nucleated RBC % Seg Neutrophils # Seg Neutrophils # Man Lymphocytes # (Manual) Percent Retic PT INR Fibrinogen ABG pH POC ABG pO2 ABG pO2 ABG HCO3 ABG O2 Saturation ABG Base Excess ABG Hemoglobin VBG pO2 Oxyhemoglobin Sodium Potassium 3.5 L Chloride Carbon Dioxide BUN 38 H Creatinine 3.7 H Glucose 201 H POC Glucose 202 H 185 H Lactic Acid Calcium 8.0 L Phosphorus Magnesium Iron TIBC Ferritin Alkaline Phosphatase Lactate Dehydrogenase Troponin T C-Reactive Protein Total Protein Albumin LDL Cholesterol Direct Crossmatch 12/25/21 12/25/21 12/25/21 12:23 16:45 22:36 WBC RBC Hgb Hct MCH RDW Plt Count Lymph % (Auto) Sampson % (Auto) Lymph # (Auto) Sampson # (Auto) Seg Neutrophils % Seg Neuts % (Manual) Lymphocytes % (Manual) Monocytes % (Manual) Nucleated RBC % Seg Neutrophils # Seg Neutrophils # Man Lymphocytes # (Manual) Percent Retic PT INR Fibrinogen ABG pH POC ABG pO2 ABG pO2 ABG HCO3 ABG O2 Saturation ABG Base Excess ABG Hemoglobin VBG pO2 Oxyhemoglobin Sodium Potassium Chloride Carbon Dioxide BUN Creatinine Glucose POC Glucose 165 H 109 H 133 H Lactic Acid Calcium Phosphorus Magnesium Iron TIBC Ferritin Alkaline Phosphatase Lactate Dehydrogenase Troponin T C-Reactive Protein Total Protein Albumin LDL Cholesterol Direct Crossmatch 12/26/21 12/26/21 12/26/21 11:19 16:03 17:56 WBC RBC Hgb Hct MCH RDW Plt Count Lymph % (Auto) Sampson % (Auto) Lymph # (Auto) Sampson # (Auto) Seg Neutrophils % Seg Neuts % (Manual) Lymphocytes % (Manual) Monocytes % (Manual) Nucleated RBC % Seg Neutrophils # Seg Neutrophils # Man Lymphocytes # (Manual) Percent Retic PT INR Fibrinogen ABG pH POC ABG pO2 ABG pO2 ABG HCO3 ABG O2 Saturation ABG Base Excess ABG Hemoglobin VBG pO2 Oxyhemoglobin Sodium Potassium Chloride Carbon Dioxide BUN Creatinine Glucose POC Glucose 59 L 41 L 51 L Lactic Acid Calcium Phosphorus Magnesium Iron TIBC Ferritin Alkaline Phosphatase Lactate Dehydrogenase Troponin T C-Reactive Protein Total Protein Albumin LDL Cholesterol Direct Crossmatch 12/26/21 12/26/21 12/26/21 19:19 23:15 Unknown WBC 14.2 H RBC 3.14 L Hgb 8.5 L Hct 25.1 L MCH 27 L RDW 17.4 H Plt Count 119 L Lymph % (Auto) 8.0 L Sampson % (Auto) 8.9 H Lymph # (Auto) 1.1 L Sampson # (Auto) 1.3 H Seg Neutrophils % 81.7 H Seg Neuts % (Manual) Lymphocytes % (Manual) Monocytes % (Manual) Nucleated RBC % Seg Neutrophils # 11.6 H Seg Neutrophils # Man Lymphocytes # (Manual) Percent Retic PT INR Fibrinogen ABG pH POC ABG pO2 ABG pO2 ABG HCO3 ABG O2 Saturation ABG Base Excess ABG Hemoglobin VBG pO2 Oxyhemoglobin Sodium Potassium Chloride Carbon Dioxide BUN Creatinine Glucose POC Glucose 110 H 127 H Lactic Acid Calcium Phosphorus Magnesium Iron TIBC Ferritin Alkaline Phosphatase Lactate Dehydrogenase Troponin T C-Reactive Protein Total Protein Albumin LDL Cholesterol Direct Crossmatch 12/27/21 12/27/21 12/27/21 04:00 04:00 05:18 WBC RBC 2.81 L Hgb 7.7 L Hct 22.6 L MCH 27 L RDW 18.0 H Plt Count 120 L Lymph % (Auto) Sampson % (Auto) Lymph # (Auto) Sampson # (Auto) Seg Neutrophils % Seg Neuts % (Manual) Lymphocytes % (Manual) Monocytes % (Manual) Nucleated RBC % Seg Neutrophils # Seg Neutrophils # Man Lymphocytes # (Manual) Percent Retic PT INR Fibrinogen ABG pH POC ABG pO2 ABG pO2 ABG HCO3 ABG O2 Saturation ABG Base Excess ABG Hemoglobin VBG pO2 Oxyhemoglobin Sodium Potassium Chloride Carbon Dioxide BUN 39 H Creatinine 3.7 H Glucose 147 H POC Glucose 130 H Lactic Acid Calcium 8.0 L Phosphorus Magnesium Iron TIBC Ferritin Alkaline Phosphatase 222 H Lactate Dehydrogenase Troponin T C-Reactive Protein Total Protein 5.9 L Albumin 1.7 L LDL Cholesterol Direct Crossmatch 12/27/21 12/27/21 12/27/21 10:59 18:57 23:59 WBC RBC Hgb Hct MCH RDW Plt Count Lymph % (Auto) Sampson % (Auto) Lymph # (Auto) Sampson # (Auto) Seg Neutrophils % Seg Neuts % (Manual) Lymphocytes % (Manual) Monocytes % (Manual) Nucleated RBC % Seg Neutrophils # Seg Neutrophils # Man Lymphocytes # (Manual) Percent Retic PT INR Fibrinogen ABG pH POC ABG pO2 ABG pO2 ABG HCO3 ABG O2 Saturation ABG Base Excess ABG Hemoglobin VBG pO2 Oxyhemoglobin Sodium Potassium Chloride Carbon Dioxide BUN Creatinine Glucose POC Glucose 182 H 168 H 154 H Lactic Acid Calcium Phosphorus Magnesium Iron TIBC Ferritin Alkaline Phosphatase Lactate Dehydrogenase Troponin T C-Reactive Protein Total Protein Albumin LDL Cholesterol Direct Crossmatch 12/28/21 12/28/21 12/28/21 06:06 11:18 16:41 WBC RBC Hgb Hct MCH RDW Plt Count Lymph % (Auto) Sampson % (Auto) Lymph # (Auto) Sampson # (Auto) Seg Neutrophils % Seg Neuts % (Manual) Lymphocytes % (Manual) Monocytes % (Manual) Nucleated RBC % Seg Neutrophils # Seg Neutrophils # Man Lymphocytes # (Manual) Percent Retic PT INR Fibrinogen ABG pH POC ABG pO2 ABG pO2 ABG HCO3 ABG O2 Saturation ABG Base Excess ABG Hemoglobin VBG pO2 Oxyhemoglobin Sodium Potassium Chloride Carbon Dioxide BUN Creatinine Glucose POC Glucose 110 H 159 H 106 H Lactic Acid Calcium Phosphorus Magnesium Iron TIBC Ferritin Alkaline Phosphatase Lactate Dehydrogenase Troponin T C-Reactive Protein Total Protein Albumin LDL Cholesterol Direct Crossmatch 12/28/21 12/29/21 12/29/21 23:43 05:40 06:30 WBC RBC 2.73 L Hgb 7.5 L Hct 22.1 L MCH 27 L RDW 18.0 H Plt Count Lymph % (Auto) Sampson % (Auto) Lymph # (Auto) Sampson # (Auto) Seg Neutrophils % Seg Neuts % (Manual) Lymphocytes % (Manual) Monocytes % (Manual) Nucleated RBC % Seg Neutrophils # Seg Neutrophils # Man Lymphocytes # (Manual) Percent Retic PT INR Fibrinogen ABG pH POC ABG pO2 ABG pO2 ABG HCO3 ABG O2 Saturation ABG Base Excess ABG Hemoglobin VBG pO2 Oxyhemoglobin Sodium Potassium Chloride Carbon Dioxide BUN Creatinine Glucose POC Glucose 171 H 143 H Lactic Acid Calcium Phosphorus Magnesium Iron TIBC Ferritin Alkaline Phosphatase Lactate Dehydrogenase Troponin T C-Reactive Protein Total Protein Albumin LDL Cholesterol Direct Crossmatch 12/29/21 06:30 WBC RBC Hgb Hct MCH RDW Plt Count Lymph % (Auto) Sampson % (Auto) Lymph # (Auto) Sampson # (Auto) Seg Neutrophils % Seg Neuts % (Manual) Lymphocytes % (Manual) Monocytes % (Manual) Nucleated RBC % Seg Neutrophils # Seg Neutrophils # Man Lymphocytes # (Manual) Percent Retic PT INR Fibrinogen ABG pH POC ABG pO2 ABG pO2 ABG HCO3 ABG O2 Saturation ABG Base Excess ABG Hemoglobin VBG pO2 Oxyhemoglobin Sodium 132 L D Potassium 3.3 L Chloride 95.9 L Carbon Dioxide BUN 30 H Creatinine 3.3 H Glucose 164 H POC Glucose Lactic Acid Calcium 7.8 L Phosphorus Magnesium Iron TIBC Ferritin Alkaline Phosphatase Lactate Dehydrogenase Troponin T C-Reactive Protein Total Protein Albumin LDL Cholesterol Direct Crossmatch Allied health notes reviewed: nursing
[2021-12-29] MEDS: carvediloL 6.25 MG TAB PO SCH ×2 (09:17→21:39)
[2021-12-29] MEDS: LANSOPRAZOLE 30 MG SOLUTAB FEEDTUBE SCH (09:17)
[2021-12-29] MEDS: MIDODRINE 5 MG TAB FEEDTUBE SCH ×3 (09:17→17:08)
[2021-12-29] MEDS: ACETAMINOPHEN 325 MG/10.15 ML ORAL LIQD UNIT DOSE FEEDTUBE PRN ×2 (09:17→20:22)
--- NOTE | 2021-12-29 10:51 | Progress Note ---
Subjective Date of service: 12/29/21 Principal diagnosis: Septic shock ; Bacteremia; ESRD on dialysis; AMS; NSTEMI; HTN; DM II Interval history: Patient was seen today for follow-up of multiple renal related issueS She is resting comfortably in bed no acute distress Events of 24 hours vitals labs intake output medications were reviewed Past medical history: Reviewed Family history: Reviewed Social history: Reviewed Allergies: Reviewed Physical examination: Vitals: Reviewed HEENT: No pallor or icterus oral mucosa moist Neck: Supple no JVD no thyromegaly Chest: Bilateral clear to auscultation anteriorly Heart: Regular rate and rhythm S1-S2 heard no S3-S4 Abdomen: Soft nontender no voluntary guarding rigidity rebound Extremity: Dry skin less than 1+ peripheral edema Psychiatric: No evidence of agitation and aggression noted Dermatology: No petechial rashes Labs and x-rays: Reviewed from today Assessment and plan #End-stage kidney disease: Patient will continue to see hemodialysis treatment 3 times a week will continue on Wednesday and Wednesday Monitor dialysis related labs/monitor for any access issues Fluid restriction 1200 cc/day high-protein diet #Access: Needs to be seen and followed by vascular surgery Permacath was removed due to infection fistula is working well but patient does have swelling #Septic shock echocardiogram did not show any evidence of vegetations, ID following Permacath was removed, admitted with septic shock with gram-positive bacteremia was admitted in ICU with encephalopathy non-ST elevation [place] atrial fibrillation with rapid ventricular response, s/p fall at home #Hypertension and volume: To monitor and follow #Anemia in end-stage kidney disease: To monitor and follow erythropoietin periodically goal hemoglobin between 05-26-08/17 Thrombocytopenia: HIT negative We will check dialysis related labs periodically, We'll continue to follow and make recommendation for renal standpoint Objective - Vital Signs Vital signs: Vital Signs - 12hr 12/28/21 12/29/21 12/29/21 23:37 03:55 06:09 Temperature 98.8 F 98.2 F Pulse Rate 77 78 78 Pulse Rate [ Anterior Bilateral Throughout] Respiratory 20 16 Rate Respiratory Rate [Anterior Bilateral Throughout] Blood Pressure 135/59 135/59 Blood Pressure 138/56 [Left] O2 Sat by Pulse 100 97 Oximetry 12/29/21 12/29/21 12/29/21 07:38 07:43 10:00 Temperature 99.0 F Pulse Rate 74 Pulse Rate [ 72 Anterior Bilateral Throughout] Respiratory 20 16 Rate Respiratory 20 Rate [Anterior Bilateral Throughout] Blood Pressure 118/61 Blood Pressure [Left] O2 Sat by Pulse 100 99 96 Oximetry - Lab 12/29/21 06:30 12/29/21 06:30 Most recent lab results ABG pH 7.450 pH Units (7.350-7.450) 12/24/21 Unknown ABG pCO2 39.1 mm Hg 12/24/21 Unknown ABG pO2 109.1 mm Hg (80.0-90.0) H 12/24/21 Unknown ABG HCO3 26.6 mmol/L (20.0-26.0) H 12/24/21 Unknown ABG O2 Saturation 98.1 % (95.0-99.0) 12/24/21 Unknown Calcium 7.8 mg/dL (8.4-10.2) L 12/29/21 06:30 Phosphorus 4.90 mg/dL (2.5-4.5) H 12/23/21 04:39 Magnesium 1.90 mg/dL (1.7-2.3) 12/23/21 04:39 Medications & Allergies - Medications Allergies/Adverse Reactions: Allergies No Known Allergies Allergy (Verified 12/11/21 22:19) Home Medications: Home Medications Medication Instructions Recorded Confirmed Last Taken Type Albuterol Sulfate [Proair 2 puff IH Q6HR PRN 11/23/21 12/14/21 Unknown History Digihaler] Calcium Acetate 2 tab PO TID 11/23/21 12/14/21 Unknown History Fluticasone/Umeclidin/Vilanter 1 each IH DAILY 11/23/21 12/14/21 Unknown History [Trelegy Ellipta 100-62.5-25] Furosemide [Lasix TAB] 40 mg PO QDAY 11/23/21 12/14/21 Unknown History Insulin Aspart (Nf) [NovoLOG 55 unit SQ TID 11/23/21 12/14/21 Unknown History Flexpen] Insulin Glargine [Lantus VIAL] 25 units SQ QHS 11/23/21 12/14/21 Unknown History Omeprazole 20 mg PO DAILY 11/23/21 12/14/21 Unknown History Spironolactone [Aldactone] 100 mg PO QDAY 11/23/21 12/14/21 Unknown History lisinopriL [Lisinopril] 20 mg PO BID 11/23/21 12/14/21 12/06/21 History 500 MG Docusate Sodium [Colace CAP] 100 mg PO BID PRN #60 capsule 11/24/21 12/14/21 Unknown Rx Aspirin EC [Halfprin EC] 81 mg PO DAILY 90 Days #90 tablet 11/26/21 12/14/21 Unknown Rx Aspirin [Adult Aspirin] 81 mg PO DAILY 90 Days #90 tab 11/26/21 12/14/21 Unknown Rx ISOSORBIDE MONOnitrate [Imdur ER] 60 mg PO QDAY 90 Days #90 tab 11/26/21 12/14/21 Unknown Rx Sevelamer Carbonate [Renvela] 800 mg PO TIDWM 90 Days #270 tab 11/26/21 12/14/21 Unknown Rx amLODIPine 10 mg PO DAILY 90 Days #90 tab 11/26/21 12/14/21 Unknown Rx carvediloL [Coreg] 25 mg PO BID 90 Days #180 tab 11/26/21 12/14/21 Unknown Rx Atorvastatin Calcium [Lipitor] 80 mg PO QHS 90 Days #90 tab 11/27/21 12/14/21 Unknown Rx levETIRAcetam [Keppra TAB] 500 mg PO 3XW 12/14/21 12/14/21 12/06/21 History 500 MG Active Medications: Generic Name Dose Route Start Last Admin Trade Name Freq PRN Reason Stop Dose Admin Acetaminophen 650 mg 12/13/21 23:00 12/13/21 23:18 Acetaminophen 650 Mg Rect Supp [place] 650 mg Q4H PRN Administration Pain, Mild (1-3) Acetaminophen 650 mg 12/24/21 14:02 12/29/21 09:17 Acetaminophen 325 Mg/10.15 Ml Oral Liqd Unit Dose FEEDTUBE 650 mg Q6H PRN Administration Pain, Mild (1-3) Albuterol 2.5 mg 12/11/21 22:14 Albuterol 2.5 Mg/3 Ml Nebu IH Q6HR PRN Wheezing Albuterol/Ipratropium 1 ampul 12/14/21 08:00 12/29/21 07:43 Ipratropium/Albuterol Sulfate 3 Ml Ampul.Neb IH 1 ampul TIDRT KRISTA Administration Lipase/Protease/Amylase 1 each 12/16/21 11:15 Lipase 10,500/Protease 25,000/Amylase 43,750 (Units) Dr Blanco FEEDTUBE PRN PRN For Clogged Feeding Tube Atorvastatin Calcium 80 mg 12/15/21 22:00 12/28/21 21:25 Atorvastatin 40 Mg Tab FEEDTUBE 80 mg QHS KRISTA Administration Budesonide 0.5 mg 12/13/21 08:00 12/29/21 07:43 Budesonide 0.5 Mg/2 Ml Nebu IH 0.5 mg Q12HRT KRISTA Administration Carvedilol 6.25 mg 12/26/21 10:00 12/29/21 09:17 Carvedilol 6.25 Mg Tab PO 6.25 mg BID KRISTA Administration Dextrose 50 ml 12/11/21 22:23 12/26/21 18:12 Dextrose 50% In Water (25gm) 50 Ml Syringe IV 20 ml Q30MIN PRN Administration Hypoglycemia Protocol Guaifenesin 10 ml 12/27/21 05:30 12/27/21 05:54 Guaifenesin Dm 200/20 Mg Oral Liqd 10 Ml PO 10 ml Q4H PRN Administration Cough Haloperidol Lactate 2.5 mg 12/25/21 11:37 12/28/21 01:35 Haloperidol Lactate 5 Mg/1 Ml Inj IV 2.5 mg Q6H PRN Administration Agitation Hydrophilic Ointment 1 applic 12/16/21 14:30 Lip Therapy Vaseline TP Q2HR PRN Dry Lips Sodium Chloride 100 mls @ 999 mls/hr 12/12/21 12:00 Nacl 0.9% IV ABEL PRN Hypotension Cefazolin Sodium 1 gm in 50 mls @ 100 mls/hr 12/26/21 18:00 12/28/21 17:11 Ancef/Ns 1 Gm/50 Ml IV 12/29/21 17:59 100 mls/hr QPM KRISTA Administration Protocol Insulin Human Lispro 0 unit 12/15/21 12:00 12/29/21 06:09 Insulin Lispro 100 Unit/Ml SUB-Q Not Given Q6HR KRISTA Protocol Isosorbide Dinitrate/Hydralazine 1 each 12/26/21 10:00 12/29/21 06:09 Isosorb Dinit/Hydralazine 20-37.5mg Tab PO 1 each Q8HR KRISTA Administration Lansoprazole 30 mg 12/25/21 10:00 12/29/21 09:17 Lansoprazole 30 Mg Solutab FEEDTUBE 30 mg QDAY KRISTA Administration Levetiracetam 500 mg 12/16/21 18:00 12/27/21 19:00 Levetiracetam 500 Mg/5 Ml Oral Liqd FEEDTUBE 500 mg TuThSa KRISTA Administration Loperamide HCl 2 mg 12/29/21 10:00 Loperamide 2 Mg Cap PO Q2H PRN Diarrhea Midodrine 5 mg 12/24/21 12:00 12/29/21 09:17 Midodrine 5 Mg Tab FEEDTUBE 5 mg TID@0800,1200,1600 KRISTA Administration Multi-Ingred Cream/Lotion/Oil/Oint 1 applic 12/16/21 14:10 Mineral Oil/Petrolatum, White Ophth Oint 3.5 Gm OU Q4HR PRN Dry Eye(s) Nitroglycerin 0.4 mg 12/11/21 22:11 Nitroglycerin 0.4 Mg Tab Subl SL Q5M PRN Chest Pain Simple Syrup 15 ml 12/16/21 11:15 Simple Syrup 15 Ml FEEDTUBE PRN PRN Hypoglycemia Simple Syrup 30 ml 12/16/21 11:15 12/26/21 17:10 Simple Syrup 15 Ml FEEDTUBE 30 ml PRN PRN Administration Hypoglycemia Sodium Bicarbonate 325 mg 12/16/21 11:15 Sodium Bicarbonate 325 Mg Tab FEEDTUBE PRN PRN For Clogged Feeding Tube Sodium Chloride 10 ml 12/11/21 22:11 12/27/21 22:07 Sodium Chloride 0.9% 10 Ml Flush Syringe IV 10 ml PRN PRN Administration LINE FLUSH
--- NOTE | 2021-12-29 11:14 | Progress Note ---
Assessment and Plan Cultures: Blood culture: group B strep Catheter tip culture: Group B strep Blood culture 12/16/2021: No growth C. difficile PCR negative. A/P: 66-year-old female past medical history hypertension, ESRD on HD now with: #Septic shock secondary to Group B strep bacteremia: Source possibly from dialysis cath. Catheter since been removed. TTE without evidence of vegetations. Repeat blood cultures negative. #Diffuse severe colitis: Noted on colonoscopy. Per GI, endoscopic appearance not classic for IBD. Ischemic v/s inflammatory. C. difficile PCR negative. #Thrombocytopenia: improved. #ESRD on HD: Renally dose antibiotics. #Acute GI bleed, anemia Recs: -IV Ancef ending 12/29/2021 i.e. today -C. difficile PCR is negative, agree with discontinuation of PO vancomycin -Wound care Garcia Bowens MD, FACP, [facility] ([facility] O: [phone] F: [phone] C: [phone] Subjective Date of service: 12/29/21 Principal diagnosis: Septic shock ; Bacteremia; ESRD on dialysis; AMS; NSTEMI; HTN; DM II Interval history: No fever. Diarrhea present, C. difficile came back negative. Denies abdominal pain. Discussed with RN. Getting wound care to right upper extremity. Objective - Exam Narrative Exam: Physical Exam: Constitutional: Alert, cooperative. No acute distress Head, Ears, Nose: Normocephalic, atraumatic. External ears, nose normal Eyes: Conjunctivae/corneas clear. No icterus. No ptosis. Neck: Supple, no meningeal signs Cardiovascular: S1, S2 + Respiratory: Good air entry, clear to auscultation bilaterally GI: Soft, mild tenderness +; bowel sounds normal. No peritoneal signs Musculoskeletal: RUE dressing + Skin: No rash or abscess Hem/Lymphatic: No palpable cervical or supraclavicular nodes. No lymphangitis Psych: Mood ok. Affect normal Neurological: Awake, alert, oriented. No gross abnormality - Constitutional Vitals: Vital Signs Temp Pulse Resp BP Pulse Ox 99.0 F 72 16 118/61 96 12/29/21 07:38 12/29/21 07:43 12/29/21 10:00 12/29/21 07:38 12/29/21 10:00 Temperature -Last 24 Hours Temperature 99.0 F Temperature 98.2 F Temperature 98.8 F Temperature 98.7 F Temperature 98.0 F - Labs CBC & Chem 7: 12/29/21 06:30 12/29/21 06:30 Labs: Abnormal lab results 12/28/21 12/28/21 12/28/21 Range/Units 11:18 16:41 23:43 RBC (3.65-5.03) M/mm3 Hgb (10.1-14.3) gm/dl Hct (30.3-42.9) % MCH (28-32) pg RDW (13.2-15.2) % Sodium (137-145) mmol/L Potassium (3.6-5.0) mmol/L Chloride (98-107) mmol/L BUN (7-17) mg/dL Creatinine (0.6-1.2) mg/dL Glucose (65-100) mg/dL POC Glucose 159 H 106 H 171 H (70-105) mg/dL Calcium (8.4-10.2) mg/dL 12/29/21 12/29/21 12/29/21 Range/Units 05:40 06:30 06:30 RBC 2.73 L (3.65-5.03) M/mm3 Hgb 7.5 L (10.1-14.3) gm/dl Hct 22.1 L (30.3-42.9) % MCH 27 L (28-32) pg RDW 18.0 H (13.2-15.2) % Sodium 132 L D (137-145) mmol/L Potassium 3.3 L (3.6-5.0) mmol/L Chloride 95.9 L (98-107) mmol/L BUN 30 H (7-17) mg/dL Creatinine 3.3 H (0.6-1.2) mg/dL Glucose 164 H (65-100) mg/dL POC Glucose 143 H (70-105) mg/dL Calcium 7.8 L (8.4-10.2) mg/dL
--- NOTE | 2021-12-29 12:25 | Progress Note ---
Assessment and Plan - Patient Problems (1) Syncope Current Visit: Yes Status: Acute Plan to address problem: Patient with end-stage renal disease on hemodialysis, admitted with transient dizziness and sepsis, suspected source indwelling Vas-Cath. She is status post respiratory failure, has been extubated successfully. History of a moderate severity cardiomyopathy, ejection fraction 35 to 40%. We will continue conservative cardiac management with medical therapy as tolerated. Subjective Date of service: 12/29/21 Principal diagnosis: Septic shock ; Bacteremia; ESRD on dialysis; AMS; NSTEMI; HTN; DM II Interval history: No new cardiac complaints, no cardiac events reported. Objective Vital Signs Temp Pulse Pulse Resp Resp BP BP 12/29/21 10:54 99.2 F 74 22 115/54 12/29/21 10:00 16 12/29/21 07:43 72 20 12/29/21 07:38 99.0 F 74 20 118/61 12/29/21 06:09 78 135/59 12/29/21 03:55 98.2 F 78 16 138/56 12/28/21 23:37 98.8 F 77 20 135/59 12/28/21 22:00 77 18 12/28/21 21:25 80 145/55 12/28/21 21:24 80 145/55 12/28/21 20:55 76 16 12/28/21 19:17 98.7 F 74 19 145/55 12/28/21 14:45 104/66 12/28/21 14:21 75 17 Pulse Ox 12/29/21 10:54 98 12/29/21 10:00 96 12/29/21 07:43 99 12/29/21 07:38 100 12/29/21 06:09 12/29/21 03:55 97 12/28/21 23:37 100 12/28/21 22:00 98 12/28/21 21:25 12/28/21 21:24 12/28/21 20:55 100 12/28/21 19:17 94 12/28/21 14:45 12/28/21 14:21 - Physical Examination General: No Apparent Distress HEENT: Positive: PERRL Neck: Positive: neck supple Cardiac: Positive: Reg Rate and Rhythm Lungs: Positive: Decreased Breath Sounds Neuro: Positive: Grossly Intact Abdomen: Positive: Soft Skin: Positive: Clear Extremities: Absent: edema - Labs and Meds CBC 12/29/21 Range/Units 06:30 WBC 4.7 (4.5-11.0) K/mm3 RBC 2.73 L (3.65-5.03) M/mm3 Hgb 7.5 L (10.1-14.3) gm/dl Hct 22.1 L (30.3-42.9) % Plt Count 143 (140-440) K/mm3 Comprehensive Metabolic Panel 12/29/21 Range/Units 06:30 Sodium 132 L D (137-145) mmol/L Potassium 3.3 L (3.6-5.0) mmol/L Chloride 95.9 L (98-107) mmol/L Carbon Dioxide 26 (22-30) mmol/L BUN 30 H (7-17) mg/dL Creatinine 3.3 H (0.6-1.2) mg/dL Glucose 164 H (65-100) mg/dL Calcium 7.8 L (8.4-10.2) mg/dL - Allied health notes Allied health notes reviewed: nursing
--- NOTE | 2021-12-29 12:34 | Progress Note ---
Assessment and Plan Assessment and plan: This is a 66-year-old female with known past medical history of ESRD on HD, HTN, heart-attack, and GERD initially admitted to the floor s/p fall at home. Patient was transferred to the ICU due to septic shock 09/17 GPC bacteremia requiring vasopressor. Hospital Course to Date: 12/12: No acute events overnight, reports extreme pain in her right leg, denies chest pain or shortness of breath 12/13: No acute events overnight, patient tearful and complaining of right leg pain however she is refusing analgesic medication 12/14: Continues to have right leg pain, does not participate in interview 12/15: Patient transferred to the ICU for hypotension on Levophed drip however she was weaned off by morning and midodrine was increased due to borderline MAP. Blood cultures grew 11/17 gram-positive cocci with suspected right upper chest permacath source. Patient started on vancomycin and infectious disease consulted. Plan for IR consult for permacath removal and assessment of aVF functioning. Possible temporary Vas-Cath placement for hemodialysis. Patient is encephalopathic likely secondary to sepsis. Continue current antibiotics and repeat 2D echo and blood cultures in the a.m. Right upper extremity swelling and pain noted and right upper extremity XR and Doppler ordered. 12/16: Patient noted to have blisters on left arm and RN asked to elevate and place cool compresses to site. AV fistula on left upper extremity access by hemodialysis nurse and hemodialysis ongoing. Vasopressin ordered in efforts to wean Levophed while on hemodialysis. Echocardiogram repeated. Blood cultures grew beta-hemolytic strep group B and antibiotics changed to ceftriaxone. Dobutamine drip discontinued. Remained sedated on fentanyl drip. 12/17: Thrombocytopenia worse today, unable to tolerate being off vasopressin, started on steroids, HIT assay ordered-discontinued. SCDs for now. [facility] will like to give normal saline 100 ml/hr for 2 L. 12/18: Wound care consult placed for right upper extremity, PSV trials today, weaning Levophed, dialysis planned for today. Hematology/oncology consulted yesterday who recommends twice daily Solu-Medrol. No acute events reported overnight. Patient will be started on IV iron 12/19: PSV today, mentation better and intermittently follows commands. Platelets stable. Reglan started for vomiting and will slowly increase TF. KUB with no acute process. 12/20: PSV today, mentation unchanged, CTH without acute findings, Platelets remains stable with no signs of bleeding, high residuals reported overnight and TF was off from approximately [id number]. TF resumed around 0400 at currently at 20/hr. RN to increase as tolerated. [facility] plans extubation Wednesday. HD today. Will keep femoral line for now in setting of low plts 12/21: Patient had moderate BM today with bright red and dark red blood->CBC pending, coags, LDH ordered, GI consulted and Dr. Lambert alerted. PSV again today. Patient is still intermittently following commands. 12/22: Remains on the vent, more somnolent this am. Patient also with persistent bloody stools, H&H remains stable, GI is also following. Will keep patient NPO for now, IV PPI, and serial H&H. Patient is tolerating PSV trial, However, intubation postpone due to increased lethargy and GIB. Awaiting on GI recommend ations. 12/23: With persistent rectal bleeding, H&H and vital signs remain stable. GI is on the case, plan for possible colonoscopy tomorrow. Keep patient NPO, continue IV PPI and serial H&H. Hypoglycemic overnight, most likely due to NPO status, continue D10W for now. D/W CCM continue PSV trial, possible extubation tomorrow. Continue HD per Nephro 12/24: Post colonoscopy at the bedside this am. Patient stable on thevent but lethargic. GI recommendations appreciated. Will resume TF, continue PPI and trend H&H X1more day. Leukocytosis improved this am, stool studies pending, Continue current IV antibiotics per ID. Plan for possible PSV trial today once more awake, possible extubation if patient tolerate PSV trial. 12/25: s/p extubation now stable on 3L NC. Post colonoscopy, still with blood tinge losse stools, stool studies pending. Continue current IV antiobiotics per ID. S/p 1unit of PRBCs, H&H is stable this am, thrombocytopenia improved. Continue to hold AC, trend CBC, and PPI. Consult placed to general surgery for RUE wound eval and management, wound care consult pending. D/w CCM, patient is stable for transfer to Telemetry. 12/26: Patient remains very lethargic, failed swallow evaluation likely due to profound leathargy, Continue aspiration precautions, Monitor H/H closely, GI input noted, will purse PEG placement if patients mental status does not improve to tolerate oral diet. Continue abx per infectious disease specialist. She still has evidence of dark tarry stool in the FMS. We will monitor leukocytosis for resolution. Wound care input from surgical team appreciated patient will likely undergo debridement Aspiration precaution. Awaiting C. difficile testing also. 12/27: Patient still with diarrhea awaiting awaiting C. difficile cultures. Continue to hold all stool softeners. She is more awake this morning and if she was able to tolerate Robitussin and some COVID last night we will have speech team repeat swallow evaluation. Hemoglobin did drop by 1 g we will continue to monitor considering renal failure would not transfuse at this time unless less than 6. Aggressive PT OT 12/28: Continue supportive care. Awaiting PT OT evaluation. Patient appears more awake today and have asked the nurse to repeat swallow evaluation. Anticipate discharge in a.m. Continue hemodialysis Patient will benefit from wound care further right upper extremity wound on discharge. Surgical input on wound management appreciated. 12/29: Patient showing remarkable clinical improvement after summary the patient is a 66-year-old female with history of end-stage renal disease on HD hypertension NV and GERD who was admitted septic shock and placed on ICU in addition with mechanical ventilation for respiratory failure. During hospitalization it appears that the patient has some reaction to the right upper extremity for which there was extra cessation and wound development which is being managed by the wound care team. Of fecal management system was placed due to recurrent diarrhea C. difficile test was done and negative COVID test was negative. Vancomycin that was started for treatment of possible C. difficile has been discontinued. The patient today is much awake passed swallow evaluation onto the resolve Dobbhoff has been discontinued. PT OT evaluation is ordered for discharge planning. Replace electrolyte. The patient is planned for a fistulogram today due to left arm AV graft with swelling in the hand. Discharge planning will be based on the procedure that at this time. Anticipate discharge in 24 hrs I have called to update family but was only able to leave a message Case management for discharge planning Assessment and Plan #Septic Shock 09/17 #GPC [id number] strep group B #Severe Colitis #Leukocytosis - Suspected source right upper chest Permacath, removed on 12/15 - Intial Blood cultures + beta-hemolytic strep group B in 4/4 bottles, repeat B.Cultures with NGTD - Echo with no evidence of vegetation - With persistent leukocytosis, afebrile - Severe colitis throughout the entire colon noted from colonoscopy on 12/24 - Stool studies pending - ID on consult, appreciated recommendations - Continue current IV Abx, Rocephin, per ID - Continue to F/U on B.cult - Daily CBC monitor #Heart Failure with Reduced Ejection Fraction #Severe Cardiomyopathy #NSTEMI #H/o Hypertension #History of CAD - Cardiology consulted, assistance appreciated - went in septic shock 09/17 bacteremia- s/p dobutamine and vaspressors - Echocardiogram 11/23: EF 35-40% - Repeat Echo this admit shows LVEF 30 to 35%, no valvular vegetations - Continue statin, ASA held due to GIB - midodrine adjusted and parameters added - Continue blood pressure monitor per protocol - Maintain MAP above 65 - Strick I&Os and daily weight #Acute Metabolic Encephalopathy #h/o seizure disorder and 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 #S/p Fall at home - most likely due to severe sepsis - CT head with no acute intracranial process - Imagings with no evidence of fractures or any acute findings - On the vent, not on any sedations, but lethargic - Continue current IV abx per ID - Frequent reorientation - Avoid benzodiazepine to reduce the possibility of delirium - Prn analgesia for pain management - Maintenance of sleep-wake cycle - Aspiration/seizure precautions - Continue fall precautions - Physical therapy eval ordered #Acute on Chronic Hypoxic Respiratory Failure - most likely due to fluid overload/sepsis shock - Decompensated on 12/15 was emergently intubated - Extubated on 12/24, now stable on 3L AK - [facility] consulted, appreciate recommendations - Aspiration precaution HOB above 30 - Continue O2 supplementation and SPO2 monitoring for SPO2 goal above 92% #ESRD (End Stage Renal Disease) on HD - Nephrology on consult, appreciated recommendation - BRICE AV-fistula is functioning, patient tolerating HD - Continue HD per Nephro - Strict intake and output - Avoid nephrotoxic medications; Renally dose medications - Monitor and replace electrolytes as needed #Extravasation of RUE #Sacral Wounds - RUE extravasation of RUE- possibly levophed- Antidote not available - RUE doppler negative DVT - WOCN consult pending - General Surgery consulted for wound eval and management - PRN analgesia for pain management #Normocytic Anemia, chronic #Thrombocytopenia-improved #Hyponatremia #Hypokalemia #Acute GI Bleed - Acute bloody stools since 12/21, probably due to low plt - H&H remains stable, Platelet count is improving - s/p 2units of FFP and 1unit of PRBCs - HIT panel negative - GI on consult, appreciated recommendations - 12/24- s/p Colonoscopy- diffuse severe colitis throughout the entire colon with erythema and edema and nodularity probably due to infectious or ischemic etiology - stool studies ordered to rule out infectious etiologies - Tolerating TF, still with bloody tinge loose stools - continue PPI and trend CBC - Continue to hold AC for now - Hematology is also following - Continue to monitor for s/s of any active bleeding - Transfuse 1 unit of plts whenever plt count <20 - Transfuse for hemoglobin less than 7 #Type 2 Diabetes Mellitus # Multi-nodular thyroid gland - Episode of hypoglycemia, most likely due to NPO status - Tolerating TF, continue enteral nutrition for now - Speech swallow eval ordered - Continue BG check and SSI Q6hrs - Continue Hypoglycemic Protocol - Avoid Hypoglycemia - Multinodular thyroid gland noted on CT head - Possible thyroid US when more stable vs outpatient #GI/DVT Prophylaxis - PPI- IV Protonix - SCDs to bilateral lower extremities while in bed History Interval history: Patient seen and examined, much more awake this morning. Discussed with nursing staff no new complaints, Hospitalist Physical - Physical exam Narrative exam: General appearance: Present: no acute distress, obese much more awake - EENT Eyes: Present: PERRL dry mucosal membrane ENT: hearing intact - Neck Neck: Present: normal ROM - Respiratory Respiratory effort: normal Respiratory: bilateral: diminished - Cardiovascular Rhythm: regular Heart Sounds: Present: S1 & S2 - Extremities Extremities: pulses intact, pulses symmetrical, abnormal ((RUE extravasation)) Extremity abnormal: edema right upper extremity worse than left - Peripheral Assessment Right upper Extremity Edema Type: Pitting Edema Degree: 3+ on the right side Capillary Refill: < 3 seconds Skin Temperature: Warm Peripheral Pulses: within normal limits - Abdominal General gastrointestinal: soft, non-distended, normal bowel sounds - Integumentary Integumentary: Present: warm ((RUE extravasation)) dressing to the right upper extremity - Psychiatric Psychiatric: appropriate mood/affect, cooperative, improved mentation - Neurologic Neurologic: moves all extremities (Limited range motion RUE), alert awake oriented x3 - Allied Health Allied health notes reviewed: nursing, case management - Constitutional Vitals: Temp Pulse Resp BP Pulse Ox 99.2 F 74 22 115/54 98 12/29/21 10:54 12/29/21 10:54 12/29/21 10:54 12/29/21 10:54 12/29/21 10:54 General appearance: Present: no acute distress, obese HEART Score - HEART Score Troponin: Troponin T 0.175 ng/mL (0.00-0.029) H* 12/12/21 04:43 Results - Labs CBC & Chem 7: 12/29/21 06:30 12/29/21 06:30 Labs: Laboratory Last Values WBC 4.7 K/mm3 (4.5-11.0) 12/29/21 06:30 RBC 2.73 M/mm3 (3.65-5.03) L 12/29/21 06:30 Hgb 7.5 gm/dl (10.1-14.3) L 12/29/21 06:30 Hct 22.1 % (30.3-42.9) L 12/29/21 06:30 MCV 81 fl (79-97) 12/29/21 06:30 MCH 27 pg (28-32) L 12/29/21 06:30 MCHC 34 % (30-34) 12/29/21 06:30 RDW 18.0 % (13.2-15.2) H 12/29/21 06:30 Plt Count 143 K/mm3 (140-440) 12/29/21 06:30 Lymph % (Auto) 8.0 % (13.4-35.0) L 12/26/21 Unknown [place] % (Auto) 8.9 % (0.0-7.3) H 12/26/21 Unknown Eos % (Auto) 0.4 % (0.0-4.3) 12/26/21 Unknown Baso % (Auto) 1.0 % (0.0-1.8) 12/26/21 Unknown Lymph # (Auto) 1.1 K/mm3 (1.2-5.4) L 12/26/21 Unknown [place] # (Auto) 1.3 K/mm3 (0.0-0.8) H 12/26/21 Unknown Eos # (Auto) 0.1 K/mm3 (0.0-0.4) 12/26/21 Unknown Baso # (Auto) 0.1 K/mm3 (0.0-0.1) 12/26/21 Unknown Add Manual Diff Complete 12/18/21 05:00 Total Counted 100 12/19/21 05:00 Seg Neutrophils % 81.7 % (40.0-70.0) H 12/26/21 Unknown Seg Neuts % (Manual) 93.0 % (40.0-70.0) H 12/19/21 05:00 Band Neutrophils % 2.0 % 12/19/21 05:00 Lymphocytes % (Manual) 2.0 % (13.4-35.0) L 12/19/21 05:00 Reactive Lymphs % (Man) 0 % 12/19/21 05:00 Monocytes % (Manual) 1.0 % (0.0-7.3) 12/19/21 05:00 Eosinophils % (Manual) 0 % (0.0-4.3) 12/19/21 05:00 Basophils % (Manual) 0 % (0.0-1.8) 12/19/21 05:00 Metamyelocytes % 2.0 % 12/19/21 05:00 Myelocytes % 0 % 12/19/21 05:00 Promyelocytes % 0 % 12/19/21 05:00 Blast Cells % 0 % 12/19/21 05:00 Nucleated RBC % Not Reportable 12/19/21 05:00 Seg Neutrophils # 11.6 K/mm3 (1.8-7.7) H 12/26/21 Unknown Seg Neutrophils # Man 17.6 K/mm3 (1.8-7.7) H 12/19/21 05:00 Band Neutrophils # 0.4 K/mm3 12/19/21 05:00 Lymphocytes # (Manual) 0.4 K/mm3 (1.2-5.4) L 12/19/21 05:00 Abs React Lymphs (Man) 0.0 K/mm3 12/19/21 05:00 Monocytes # (Manual) 0.2 K/mm3 (0.0-0.8) 12/19/21 05:00 Eosinophils # (Manual) 0.0 K/mm3 (0.0-0.4) 12/19/21 05:00 Basophils # (Manual) 0.0 K/mm3 (0.0-0.1) 12/19/21 05:00 Metamyelocytes # 0.4 K/mm3 12/19/21 05:00 Myelocytes # 0.0 K/mm3 12/19/21 05:00 Promyelocytes # 0.0 K/mm3 12/19/21 05:00 Blast Cells # 0.0 K/mm3 12/19/21 05:00 WBC Morphology Not Reportable 12/19/21 05:00 Hypersegmented Neuts Not Reportable 12/19/21 05:00 Hyposegmented Neuts 1+ 12/19/21 05:00 Hypogranular Neuts Not Reportable 12/19/21 05:00 Smudge Cells Not Reportable 12/19/21 05:00 Toxic Granulation Not Reportable 12/19/21 05:00 Toxic Vacuolation Not Reportable 12/19/21 05:00 Dohle Bodies Not Reportable 12/19/21 05:00 Pelger-Huet Anomaly Not Reportable 12/19/21 05:00 Charles Rods Not Reportable 12/19/21 05:00 Platelet Estimate Consistent w auto 12/19/21 05:00 Clumped Platelets Not Reportable 12/19/21 05:00 Plt Clumps, EDTA Not Reportable 12/19/21 05:00 Large Platelets Not Reportable 12/19/21 05:00 Giant Platelets Not Reportable 12/19/21 05:00 Platelet Satelliting Not Reportable 12/19/21 05:00 Plt Morphology Comment Not Reportable 12/19/21 05:00 RBC Morphology Not Reportable 12/19/21 05:00 Dimorphic RBCs Not Reportable 12/19/21 05:00 Polychromasia Not Reportable 12/19/21 05:00 Hypochromasia 1+ 12/19/21 05:00 Poikilocytosis Few 12/19/21 05:00 Anisocytosis Few 12/19/21 05:00 Microcytosis Not Reportable 12/19/21 05:00 Macrocytosis Not Reportable 12/19/21 05:00 Spherocytes Not Reportable 12/19/21 05:00 Pappenheimer Bodies Not Reportable 12/19/21 05:00 Sickle Cells Not Reportable 12/19/21 05:00 Target Cells Rare 12/19/21 05:00 Tear Drop Cells Not Reportable 12/19/21 05:00 Ovalocytes Rare 12/19/21 05:00 Helmet Cells Not Reportable 12/19/21 05:00 Murphy-Myrtle Bodies Not Reportable 12/19/21 05:00 [place] Rings Not Reportable 12/19/21 05:00 [place] Cells Not Reportable 12/19/21 05:00 Bite Cells Not Reportable 12/19/21 05:00 Crenated Cell Not Reportable 12/19/21 05:00 Elliptocytes Not Reportable 12/19/21 05:00 Acanthocytes (Spur) Not Reportable 12/19/21 05:00 Rouleaux Rare 12/19/21 05:00 Hemoglobin C Crystals Not Reportable 12/19/21 05:00 Schistocytes Rare 12/19/21 05:00 Malaria parasites Not Reportable 12/19/21 05:00 Percent Retic 0.37 % (0.78-2.58) L 12/18/21 05:00 Bryson Bodies Not Reportable 12/19/21 05:00 Haptoglobin 193 mg/dL (43-212) 12/18/21 05:00 Hem Pathologist Commnt Not Reportable 12/19/21 05:00 PT 17.7 Sec. (12.2-14.9) H 12/22/21 14:05 INR 1.30 (0.87-1.13) H 12/22/21 14:05 Fibrinogen 351 mg/dl (211-480) 12/21/21 08:35 Heparin Anti-Xa, Unfract Negative (Negative) 12/17/21 09:30 ABG pH 7.450 pH Units (7.350-7.450) 12/24/21 Unknown POC ABG pCO2 36.0 mmHg (32.0-48.0) 12/21/21 10:20 ABG pCO2 39.1 mm Hg 12/24/21 Unknown POC ABG pO2 126.1 mmHg (83-108) H 12/21/21 10:20 ABG pO2 109.1 mm Hg (80.0-90.0) H 12/24/21 Unknown POC ABG HCO3 24.3 12/21/21 10:20 ABG HCO3 26.6 mmol/L (20.0-26.0) H 12/24/21 Unknown ABG O2 Saturation 98.1 % (95.0-99.0) 12/24/21 Unknown ABG O2 Content 9.4 (0.0-44) 12/24/21 Unknown POC ABG Base Excess 0.6 12/21/21 10:20 ABG Base Excess 2.4 mmol/L (-2.0-3.0) 12/24/21 Unknown ABG Hemoglobin 6.8 gm/dl (12.0-16.0) L 12/24/21 Unknown ABG Oxyhemoglobin 97.4 (94-98) 12/21/21 10:20 ABG Carboxyhemoglobin 1.8 % (0.0-5.0) 12/24/21 Unknown ABG Methemoglobin 0.5 % (0.0-1.5) 12/24/21 Unknown ABG Sodium Not Reportable 12/21/21 10:20 ABG Potassium Not Reportable 12/21/21 10:20 ABG Chloride Not Reportable 12/21/21 10:20 ABG Glucose Not Reportable 12/21/21 10:20 VBG pO2 > 258.0 (25.0-47.0) H 12/15/21 19:50 Oxyhemoglobin 95.8 % (95.0-99.0) 12/24/21 Unknown Carboxyhemoglobin 0.9 (0.5-1.5) 12/21/21 10:20 FiO2 30 % 12/24/21 Unknown FiO2 % 30.0 12/21/21 10:20 Sodium 132 mmol/L (137-145) L D 12/29/21 06:30 Potassium 3.3 mmol/L (3.6-5.0) L 12/29/21 06:30 Chloride 95.9 mmol/L (98-107) L 12/29/21 06:30 Carbon Dioxide 26 mmol/L (22-30) 12/29/21 06:30 Anion Gap 13 mmol/L 12/29/21 06:30 BUN 30 mg/dL (7-17) H 12/29/21 06:30 Creatinine 3.3 mg/dL (0.6-1.2) H 12/29/21 06:30 Estimated GFR 17 ml/min 12/29/21 06:30 BUN/Creatinine Ratio 9 % 12/29/21 06:30 Glucose 164 mg/dL (65-100) H 12/29/21 06:30 POC Glucose 143 mg/dL (70-105) H 12/29/21 05:40 Lactic Acid 1.90 mmol/L (0.7-2.0) 12/16/21 05:00 Calcium 7.8 mg/dL (8.4-10.2) L 12/29/21 06:30 Phosphorus 4.90 mg/dL (2.5-4.5) H 12/23/21 04:39 Magnesium 1.90 mg/dL (1.7-2.3) 12/23/21 04:39 Iron 13 ug/dL (37-170) L 12/18/21 05:00 TIBC 109 mcg/dL (250-450) L 12/18/21 05:00 Ferritin 383.4 ng/mL (10.0-200.0) H 12/18/21 05:00 Total Bilirubin 0.50 mg/dL (0.1-1.2) 12/27/21 04:00 AST 23 units/L (5-40) 12/27/21 04:00 ALT 10 units/L (7-56) 12/27/21 04:00 Alkaline Phosphatase 222 units/L (35-129) H 12/27/21 04:00 Ammonia 26.0 umol/L (25-60) 12/26/21 Unknown Lactate Dehydrogenase 249 units/L (91-180) H 12/21/21 08:35 Troponin T 0.175 ng/mL (0.00-0.029) H* 12/12/21 04:43 C-Reactive Protein 38.50 mg/dL (0.00-1.30) H 12/15/21 14:40 Total Protein 5.9 g/dL (6.3-8.2) L 12/27/21 04:00 Albumin 1.7 g/dL (3.9-5) L 12/27/21 04:00 Albumin/Globulin Ratio 0.4 % 12/27/21 04:00 Triglycerides 92 mg/dL (2-149) 12/11/21 15:40 Cholesterol 72 mg/dL (50-199) 12/11/21 15:40 LDL Cholesterol Direct 16 mg/dL (50-130) L 12/11/21 15:40 HDL Cholesterol 41 mg/dL (40-59) 12/11/21 15:40 Cholesterol/HDL Ratio 1.75 % 12/11/21 15:40 Serotonin Release Assay See scanned result 12/17/21 09:30 Procalcitonin 46.16 ng/mL (<0.15) 12/15/21 04:11 Arterial Blood Glucose Not Reportable 12/21/21 10:20 Random Vancomycin 15.6 ug/mL (0-40.0) 12/16/21 05:00 Heparin-induced Plt Ab Negative (Negative) 12/17/21 09:30 UF Heparin High Dose 1 % Release 12/17/21 09:30 JAMILAH UFH Low Dose 0.1 0 % Release 12/17/21 09:30 JAMILAH UFH Low Dose 0.5 0 % Release 12/17/21 09:30 C. difficile Tox (PCR) Negative (Negative) 12/27/21 12:30 Hepatitis A IgM Ab Non-reactive (NonReactive) 12/27/21 Unknown Hep Bs Antigen Non-reactive (Negative) 12/27/21 Unknown Hep B Core IgM Ab Non-reactive (NonReactive) 12/27/21 Unknown Hepatitis C Antibody Non-reactive (NonReactive) 12/27/21 Unknown Blood Type O POSITIVE 12/23/21 16:20 Antibody Screen Negative 12/23/21 16:20 Crossmatch See Detail 12/23/21 16:20 Microbiology: Microbiology 12/24/21 09:15 Stool Stool Culture - Preliminary Johnson/IV: Voiding Method Incontinent Active Medications - Current Medications Current Medications: Generic Name Dose Route Start Last Admin Trade Name Freq PRN Reason Stop Dose Admin Acetaminophen 650 mg 12/13/21 23:00 12/13/21 23:18 Acetaminophen 650 Mg Rect Supp SC 650 mg Q4H PRN Administration Pain, Mild (1-3) Acetaminophen 650 mg 12/24/21 14:02 12/29/21 09:17 Acetaminophen 325 Mg/10.15 Ml Oral Liqd Unit Dose FEEDTUBE 650 mg Q6H PRN Administration Pain, Mild (1-3) Albuterol 2.5 mg 12/11/21 22:14 Albuterol 2.5 Mg/3 Ml Nebu IH Q6HR PRN Wheezing Albuterol/Ipratropium 1 ampul 12/14/21 08:00 12/29/21 07:43 Ipratropium/Albuterol Sulfate 3 Ml Ampul.Neb IH 1 ampul TIDRT KRISTA Administration Lipase/Protease/Amylase 1 each 12/16/21 11:15 Lipase 10,500/Protease 25,000/Amylase 43,750 (Units) Dr Blanco FEEDTUBE PRN PRN For Clogged Feeding Tube Atorvastatin Calcium 80 mg 12/15/21 22:00 12/28/21 21:25 Atorvastatin 40 Mg Tab FEEDTUBE 80 mg QHS KRISTA Administration Budesonide 0.5 mg 12/13/21 08:00 12/29/21 07:43 Budesonide 0.5 Mg/2 Ml Nebu IH 0.5 mg Q12HRT KRISTA Administration Carvedilol 6.25 mg 12/26/21 10:00 12/29/21 09:17 Carvedilol 6.25 Mg Tab PO 6.25 mg BID KRISTA Administration Dextrose 50 ml 12/11/21 22:23 12/26/21 18:12 Dextrose 50% In Water (25gm) 50 Ml Syringe IV 20 ml Q30MIN PRN Administration Hypoglycemia Protocol Guaifenesin 10 ml 12/27/21 05:30 12/27/21 05:54 Guaifenesin Dm 200/20 Mg Oral Liqd 10 Ml PO 10 ml Q4H PRN Administration Cough Haloperidol Lactate 2.5 mg 12/25/21 11:37 12/28/21 01:35 Haloperidol Lactate 5 Mg/1 Ml Inj IV 2.5 mg Q6H PRN Administration Agitation Hydrophilic Ointment 1 applic 12/16/21 14:30 Lip Therapy Vaseline TP Q2HR PRN Dry Lips Sodium Chloride 100 mls @ 999 mls/hr 12/12/21 12:00 Nacl 0.9% IV ABEL PRN Hypotension Cefazolin Sodium 1 gm in 50 mls @ 100 mls/hr 12/26/21 18:00 12/28/21 17:11 Ancef/Ns 1 Gm/50 Ml IV 12/29/21 17:59 100 mls/hr QPM KRISTA Administration Protocol Insulin Human Lispro 0 unit 12/15/21 12:00 12/29/21 06:09 Insulin Lispro 100 Unit/Ml SUB-Q Not Given Q6HR [facility] Protocol Isosorbide Dinitrate/Hydralazine 1 each 12/26/21 10:00 12/29/21 06:09 Isosorb Dinit/Hydralazine 20-37.5mg Tab PO 1 each Q8HR KRISTA Administration Lansoprazole 30 mg 12/25/21 10:00 12/29/21 09:17 Lansoprazole 30 Mg Solutab FEEDTUBE 30 mg QDAY KRISTA Administration Levetiracetam 500 mg 12/16/21 18:00 12/27/21 19:00 Levetiracetam 500 Mg/5 Ml Oral Liqd FEEDTUBE 500 mg TuThSa KRISTA Administration Loperamide HCl 2 mg 12/29/21 10:00 Loperamide 2 Mg Cap PO Q2H PRN Diarrhea Midodrine 5 mg 12/24/21 12:00 12/29/21 09:17 Midodrine 5 Mg Tab FEEDTUBE 5 mg TID@0800,1200,1600 KRISTA Administration Multi-Ingred Cream/Lotion/Oil/Oint 1 applic 12/16/21 14:10 Mineral Oil/Petrolatum, White Ophth Oint 3.5 Gm OU Q4HR PRN Dry Eye(s) Nitroglycerin 0.4 mg 12/11/21 22:11 Nitroglycerin 0.4 Mg Tab Subl SL Q5M PRN Chest Pain Simple Syrup 15 ml 12/16/21 11:15 Simple Syrup 15 Ml FEEDTUBE PRN PRN Hypoglycemia Simple Syrup 30 ml 12/16/21 11:15 12/26/21 17:10 Simple Syrup 15 Ml FEEDTUBE 30 ml PRN PRN Administration Hypoglycemia Sodium Bicarbonate 325 mg 12/16/21 11:15 Sodium Bicarbonate 325 Mg Tab FEEDTUBE PRN PRN For Clogged Feeding Tube Sodium Chloride 10 ml 12/11/21 22:11 12/27/21 22:07 Sodium Chloride 0.9% 10 Ml Flush Syringe IV 10 ml PRN PRN Administration LINE FLUSH Nutrition/Malnutrition Assess - Dietary Evaluation Nutrition/Malnutrition Findings: Nutrition Notes Start: 12/12/21 11:57 Freq: Status: Active Protocol: Document 12/24/21 17:36 EVERARDO (Rec: 12/24/21 17:55 EVERARDO [id number]) Nutrition Notes Initial or Follow up Brief Note Current Diagnosis CKD (stage V CKD),Coronary Artery Disease,Sepsis, Hypertension,Heart Failure, Respiratory Failure Other Pertinent Diagnosis Colitis, Bacteremia, ESRD+HD, Septic Shock, Thrombocytopenia , Anemia,... Current Diet TF-Nepro w/CARBSTEADY @ 30 ml/ hr (from L 12/24). Height 4 ft 11 in Weight 61.9 kg [place] Body Weight (kg) 43.18 BMI 27.6 Weight change and time frame No body weight change in 2 days reported. Weight Status Overweight Subjective/Other Information RD consult for TF continuation . TF resumed on L 12/24. Pt continues on Mechanical ventilation, O2 saturation @ 98%, according to MV notes. Percent of energy/protein needs met: Prescribed TF-Nepro w/ CARBSTEADY @ 30 ml/hr provides for energy/protein needs (1, 296 Kcal/58 g) during LOS, 103 % Kcal; 82% AA. #1 Nutrition Diagnosis Inadequate oral intake Diagnosis Progress(for reassessment Continues documentation) Is patient on ventilator? Yes Is Patient Ambulatory and/or Out of Bed No REE-([facility]-confined to bed) [phone] Calculation Used for Recommendations [facility] Additional Notes Protein: >1.2 g/Kg ABW; >74 g/ day. Fluids: 1-1.5 L/day, or as per MD. Nutrition Intervention Nutrition Support: Continue TF-Nepro w/CARBSTEADY @ 30 ml/hr. Flush: 130 ml water Q 4 hr, or as per MD. Kcal 1,269 Protein (gm) 58 Carbohydrates (gm) 116 Fat (gm) 69 Fluid (mL) 523 Fiber (gm) 9 % RDI: 103% Kcal; 82% AA. Goal #1 Provide at least 75% of energy /protein needs through Enteral Feeding during LOS. Goal #2 Maintain body weight within +/ -3% of admission body weight during LOS. Follow-Up By: 12/31/21 Additional Comments Continue monitoring, Ventilation status, renal function, GI Bleed, TF tolerance and BM.
[2021-12-29] MEDS ORDERED: HEPARIN/NS 5000 UNIT/500ML 500 ML IR ONE ×2 (14:18→15:20)
[2021-12-29] MEDS ORDERED: HEPARIN 10,000 UNITS/10 ML VIAL ONE (14:18)
[2021-12-29] MEDS ORDERED: SODIUM CHLORIDE 0.9% 500 ML 500 ML ONE (14:19)
[2021-12-29] MEDS ORDERED: LIDOCAINE 2%/EPINEPHRINE 1:200,000 VIAL (20 ML) INFILTRATI ONE (14:28)
[2021-12-29] MEDS ORDERED: MIDAZOLAM 2 MG/2 ML INJ ONE (15:03)
[2021-12-29] MEDS ORDERED: fentaNYL 100 MCG/2 ML INJ ONE (15:04)
[2021-12-29] MEDS ORDERED: ceFAZolin/Water 2 GM/20 ML 2 GM/20 ML SYRINGE IV ONE (15:05)
--- NOTE | 2021-12-29 16:12 | Post Operative Note ---
Date of procedure: 12/29/21 Pre-op diagnosis: AV access malfunction Post-op diagnosis: same Procedure: 1. Ultrasound-guided access of the left arm AV access towards the venous anastomosis with placement of a 7 Amharic sheath. 2. Fistulogram. 3. Angioplasty of the left innominate vein with a 10 mm x 40 mm angioplasty balloon (central dialysis access angioplasty). 4. Angioplasty of the left distal graft with a 10 mm x 40 mm angioplasty balloon and 9 mm x 60 mm angioplasty balloon. 5. Ultrasound-guided access of the left arm AV access towards the arterial anastomosis with placement of a 6 Amharic sheath. 6. Selection of the brachial artery in a retrograde fashion with angiography. 7. Angioplasty of the peripheral and midportion of the dialysis access with an 8 mm x 40 mm angioplasty balloon Anesthesia: local (With conscious sedation) Surgeon: KRISTAL GORDON Estimated blood loss: minimal Condition: stable Disposition: floor
--- NOTE | 2021-12-29 16:12 | Operative Report ---
Operative Report Operative Report: EXAM: 1. Ultrasound-guided access of the left arm AV access towards the venous anastomosis with placement of a 7 Emirati sheath. 2. Fistulogram. 3. Angioplasty of the left innominate vein with a 10 mm x 40 mm angioplasty balloon (central dialysis access angioplasty). 4. Angioplasty of the left distal graft with a 10 mm x 40 mm angioplasty balloon and 9 mm x 60 mm angioplasty balloon. 5. Ultrasound-guided access of the left arm AV access towards the arterial anastomosis with placement of a 6 Emirati sheath. 6. Selection of the brachial artery in a retrograde fashion with angiography. 7. Angioplasty of the peripheral and midportion of the dialysis access with an 8 mm x 40 mm angioplasty balloon DATE: 12/29/2021 [employer] INSTRUCTOR: KRISTAL GORDON MD INDICATION: AV access with malfunction MEDICATIONS: Please see nursing report for full details. DEVICES: 10 mm x 40 mm angioplasty balloon 9 mm x 60 mm angioplasty balloon 8 mm x 40 mm angioplasty balloon CONTRAST: Please see Human Services Professional report for full details PROCEDURE: The risks, benefits, and alternatives were discussed with the patient's family and the patient; informed consent was obtained. Patient was brought to the angiography suite and the AV access was prepped and draped in a sterile fashion. Ultrasound was used to evaluate the left arm AV access which demonstrated multiple pseudoaneurysms with stents. A suitable entry site was found and the area was anesthetized. 21-gauge micropuncture needle was used to access the left arm AV access. 0.018 inch wire was passed into the AV fistula. Needle was exchanged for transitional dilator. Wire was exchanged for 0.035 inch wire. Transitional dilator was exchanged for a 7 Emirati sheath. Digital subtraction angiography was performed demonstrating multiple pseudoaneurysms throughout the AV access with stents throughout the AV access. The stents were not covered which allowed the pseudoaneurysm was to persist. There was intermittent areas of 50 to 70% stenosis throughout the peripheral and midportion of the AV access. The distal portion of the AV access had a 70% stenosis. I am uncertain if this was a brachiobasilic AV fistula or an AV graft. The brachial arterial inflow proximal and distal to the anastomosis was patent. The anastomosis was patent. The AV access appears to connect into the basilic vein which is occluded centrally, but has a hypertrophic collateral passing retrograde and connecting into the axillary vein. The axillary vein and subclavian veins were patent but enlarged and tortuous. The proximal left innominate vein is stented and there is a 70% stenosis proximal and distal at the stent edges. The rest of the innominate vein is patent. SVC is patent. Wire and catheter were then used to select the basilic vein and multiple attempts were made to recanalize the central portion of the basilic vein but this was unsuccessful due to the large size of the basilic vein (15 mm). I then passed wire and catheter through the hypertrophic collateral into the axillary vein, subclavian vein, innominate vein, and into the SVC and then the IVC. 10 mm x 40 mm angioplasty balloon was used to perform angioplasty of the left innominate vein proximally and distally at burst pressures. Digital subtraction angiography demonstrated resolution of the stenosis adjacent to the stent in the left innominate vein. 10 mm x 40 mm angioplasty balloon was then used to perform angioplasty of the central portion of the AV access at low pressure. This was followed with a 9 mm x 60 mm angioplasty balloon was then used to perform angioplasty of the central portion of the AV access at high pressure. Digital subtraction angiography demonstrated no residual central AV access narrowing. Ultrasound was then used to identify a site for entry. 21-gauge micropuncture needle was used to access the left arm AV access. 0.018 inch wire was passed into the AV fistula. Needle was exchanged for transitional dilator. Wire was exchanged for a 0.035 inch wire. Transitional dilator was exchanged for a 6 Emirati sheath. Wire and catheter were then used to select the brachial artery in a retrograde fashion. Digital subtraction angiography was performed demonstrating patency of the left axillary artery, brachial artery proximal and distal to the anastomos is, and proximal radial and ulnar artery. The anastomosis was patent. The above-mentioned stenotic areas in the peripheral and midportion of the AV access are noted. 8 mm x 40 mm angioplasty balloon was then used to perform angioplasty throughout the stented portion of the AV access at high pressure. Digital subtraction angiography was performed demonstrating resolution of all the stenotic areas in the AV access. At this point, all wires, catheters, and sheaths were removed. Sites were closed with 3-0 Vicryl suture. Pressure was held until hemostasis was achieved. Patient tolerated the procedure well. No immediate postprocedural complications. FINDINGS: Please see procedure note above. IMPRESSION: Successful angioplasty of the peripheral dialysis access. Successful angioplasty of the central dialysis access.
[2021-12-29] MEDS: LOPERAMIDE 2 MG CAP PO PRN (21:40)
[2021-12-30] MEDS: ACETAMINOPHEN 325 MG/10.15 ML ORAL LIQD UNIT DOSE FEEDTUBE PRN ×3 (04:47→20:03)
[2021-12-30 05:16] LABS: Hematocrit 23.1 % (30.3-42.9); Hemoglobin 7.5 gm/dl (10.1-14.3); Mean Corpuscular HGB Conc 33 % (30-34); Mean Corpuscular Volume 82 fl (79-97); Platelet Count 142 K/mm3 (140-440); Red Blood Count 2.83 M/mm3 (3.65-5.03); Red Cell Distribution Width 18.3 % (13.2-15.2)
[2021-12-30 05:33] LABS: Calcium 7.7 mg/dL (8.4-10.2)
[2021-12-30] MEDS: INSULIN LISPRO 100 UNIT/ML SUB-Q SCH ×4 (05:54→18:04)
[2021-12-30] MEDS: ISOSORB DINIT/HYDRALAZINE 20-37.5MG TAB PO SCH ×3 (06:08→21:37)
[2021-12-30] MEDS ORDERED: CALCIUM CHLORIDE 1,000 MG/10 ML SYRINGE IV ONE (08:24)
[2021-12-30] MEDS: MIDODRINE 5 MG TAB FEEDTUBE SCH ×3 (08:59→15:10)
[2021-12-30] MEDS ORDERED: CALCIUM CHLORIDE 1,000 MG in SODIUM CHLORIDE 0.9% 100 ML IV ONE (09:00)
[2021-12-30] MEDS: LANSOPRAZOLE 30 MG SOLUTAB FEEDTUBE SCH (09:00)
[2021-12-30] MEDS ORDERED: POTASSIUM CHLORIDE ER 20 MEQ TAB PO SCH (09:00)
[2021-12-30] MEDS: LOPERAMIDE 2 MG CAP PO PRN (09:14)
--- NOTE | 2021-12-30 09:46 | Progress Note ---
Subjective Date of service: 12/30/21 Principal diagnosis: Septic shock ; Bacteremia; ESRD on dialysis; AMS; NSTEMI; HTN; DM II Interval history: Patient was seen today for follow-up of multiple renal related issueS She is resting comfortably in bed no acute distress Events of 24 hours vitals labs intake output medications were reviewed Past medical history: Reviewed Family history: Reviewed Social history: Reviewed Allergies: Reviewed Physical examination: Vitals: Reviewed HEENT: No pallor or icterus oral mucosa moist Neck: Supple no JVD no thyromegaly Chest: Bilateral clear to auscultation anteriorly Heart: Regular rate and rhythm S1-S2 heard no S3-S4 Abdomen: Soft nontender no voluntary guarding rigidity rebound Extremity: Dry skin less than 1+ peripheral edema Psychiatric: No evidence of agitation and aggression noted Dermatology: No petechial rashes Labs and x-rays: Reviewed from today Assessment and plan #End-stage kidney disease: Patient will continue to see hemodialysis treatment 3 times a week will continue on Wednesday and Wednesday Monitor dialysis related labs/monitor for any access issues Fluid restriction 1200 cc/day high-protein diet #Access: Needs to be seen and followed by vascular surgery Permacath was removed due to infection fistula is working well but patient does have swelling #Septic shock echocardiogram did not show any evidence of vegetations, ID following Permacath was removed, admitted with septic shock with gram-positive bacteremia was admitted in ICU with encephalopathy non-ST elevation PR atrial fibrillation with rapid ventricular response, s/p fall at home #Hypertension and volume: To monitor and follow #Anemia in end-stage kidney disease: To monitor and follow erythropoietin periodically goal hemoglobin between 05-26-08/17 Thrombocytopenia: HIT negative We will check dialysis related labs periodically, We'll continue to follow and make recommendation for renal standpoint Objective - Vital Signs Vital signs: Vital Signs - 12hr 12/29/21 12/30/21 12/30/21 23:01 03:39 04:47 Temperature 98.7 F 98.2 F Pulse Rate 81 72 Respiratory 18 16 20 Rate Blood Pressure 128/54 115/60 O2 Sat by Pulse 96 100 Oximetry 12/30/21 07:27 Temperature 98.3 F Pulse Rate 70 Respiratory 20 Rate Blood Pressure 122/53 O2 Sat by Pulse 100 Oximetry - Lab 12/30/21 04:56 12/30/21 04:56 Most recent lab results ABG pH 7.450 pH Units (7.350-7.450) 12/24/21 Unknown ABG pCO2 39.1 mm Hg 12/24/21 Unknown ABG pO2 109.1 mm Hg (80.0-90.0) H 12/24/21 Unknown ABG HCO3 26.6 mmol/L (20.0-26.0) H 12/24/21 Unknown ABG O2 Saturation 98.1 % (95.0-99.0) 12/24/21 Unknown Calcium 7.7 mg/dL (8.4-10.2) L 12/30/21 04:56 Phosphorus 4.90 mg/dL (2.5-4.5) H 12/23/21 04:39 Magnesium 1.90 mg/dL (1.7-2.3) 12/23/21 04:39 Medications & Allergies - Medications Allergies/Adverse Reactions: Allergies No Known Allergies Allergy (Verified 12/11/21 22:19) Home Medications: Home Medications Medication Instructions Recorded Confirmed Last Taken Type Albuterol Sulfate [Proair 2 puff IH Q6HR PRN 11/23/21 12/14/21 Unknown History Digihaler] Calcium Acetate 2 tab PO TID 11/23/21 12/14/21 Unknown History Fluticasone/Umeclidin/Vilanter 1 each IH DAILY 11/23/21 12/14/21 Unknown History [Trelegy Ellipta 100-62.5-25] Furosemide [Lasix TAB] 40 mg PO QDAY 11/23/21 12/14/21 Unknown History Insulin Aspart (Nf) [NovoLOG 55 unit SQ TID 11/23/21 12/14/21 Unknown History Flexpen] Insulin Glargine [Lantus VIAL] 25 units SQ QHS 11/23/21 12/14/21 Unknown History Omeprazole 20 mg PO DAILY 11/23/21 12/14/21 Unknown History Spironolactone [Aldactone] 100 mg PO QDAY 11/23/21 12/14/21 Unknown History lisinopriL [Lisinopril] 20 mg PO BID 11/23/21 12/14/21 12/06/21 History 500 MG Docusate Sodium [Colace CAP] 100 mg PO BID PRN #60 capsule 11/24/21 12/14/21 Unknown Rx Aspirin EC [Halfprin EC] 81 mg PO DAILY 90 Days #90 tablet 11/26/21 12/14/21 Unknown Rx Aspirin [Adult Aspirin] 81 mg PO DAILY 90 Days #90 tab 11/26/21 12/14/21 Unknown Rx ISOSORBIDE MONOnitrate [Imdur ER] 60 mg PO QDAY 90 Days #90 tab 11/26/21 12/14/21 Unknown Rx Sevelamer Carbonate [Renvela] 800 mg PO TIDWM 90 Days #270 tab 11/26/21 12/14/21 Unknown Rx amLODIPine 10 mg PO DAILY 90 Days #90 tab 11/26/21 12/14/21 Unknown Rx carvediloL [Coreg] 25 mg PO BID 90 Days #180 tab 11/26/21 12/14/21 Unknown Rx Atorvastatin Calcium [Lipitor] 80 mg PO QHS 90 Days #90 tab 11/27/21 12/14/21 Unknown Rx levETIRAcetam [Keppra TAB] 500 mg PO 3XW 12/14/21 12/14/21 12/06/21 History 500 MG Active Medications: Generic Name Dose Route Start Last Admin Trade Name Freq PRN Reason Stop Dose Admin Acetaminophen 650 mg 12/13/21 23:00 12/13/21 23:18 Acetaminophen 650 Mg Rect Supp MO 650 mg Q4H PRN Administration Pain, Mild (1-3) Acetaminophen 650 mg 12/24/21 14:02 12/30/21 04:47 Acetaminophen 325 Mg/10.15 Ml Oral Liqd Unit Dose FEEDTUBE 650 mg Q6H PRN Administration Pain, Mild (1-3) Albuterol 2.5 mg 12/11/21 22:14 Albuterol 2.5 Mg/3 Ml Nebu IH Q6HR PRN Wheezing Albuterol/Ipratropium 1 ampul 12/14/21 08:00 12/29/21 19:44 Ipratropium/Albuterol Sulfate 3 Ml Ampul.Neb IH 1 ampul TIDRT KRISTA Administration Lipase/Protease/Amylase 1 each 12/16/21 11:15 Lipase 10,500/Protease 25,000/Amylase 43,750 (Units) Dr Blanco FEEDTUBE PRN PRN For Clogged Feeding Tube Atorvastatin Calcium 80 mg 12/15/21 22:00 12/29/21 21:40 Atorvastatin 40 Mg Tab FEEDTUBE 80 mg QHS KRISTA Administration Budesonide 0.5 mg 12/13/21 08:00 12/29/21 19:43 Budesonide 0.5 Mg/2 Ml Nebu IH 0.5 mg Q12HRT KRISTA Administration Carvedilol 6.25 mg 12/26/21 10:00 12/29/21 21:39 Carvedilol 6.25 Mg Tab PO 6.25 mg BID KRISTA Administration Dextrose 50 ml 12/11/21 22:23 12/26/21 18:12 Dextrose 50% In Water (25gm) 50 Ml Syringe IV 20 ml Q30MIN PRN Administration Hypoglycemia Protocol Guaifenesin 10 ml 12/27/21 05:30 12/27/21 05:54 Guaifenesin Dm 200/20 Mg Oral Liqd 10 Ml PO 10 ml Q4H PRN Administration Cough Haloperidol Lactate 2.5 mg 12/25/21 11:37 12/28/21 01:35 Haloperidol Lactate 5 Mg/1 Ml Inj IV 2.5 mg Q6H PRN Administration Agitation Hydrophilic Ointment 1 applic 12/16/21 14:30 Lip Therapy Vaseline TP Q2HR PRN Dry Lips Sodium Chloride 100 mls @ 999 mls/hr 12/12/21 12:00 Nacl 0.9% IV ABEL PRN Hypotension Insulin Human Lispro 0 unit 12/15/21 12:00 12/30/21 05:54 Insulin Lispro 100 Unit/Ml SUB-Q Not Given Q6HR KRISTA Protocol Isosorbide Dinitrate/Hydralazine 1 each 12/26/21 10:00 12/30/21 06:08 Isosorb Dinit/Hydralazine 20-37.5mg Tab PO 1 each Q8HR KRISTA Administration Lansoprazole 30 mg 12/25/21 10:00 12/30/21 09:00 Lansoprazole 30 Mg Solutab FEEDTUBE 30 mg QDAY KRISTA Administration Levetiracetam 500 mg 12/16/21 18:00 12/27/21 19:00 Levetiracetam 500 Mg/5 Ml Oral Liqd FEEDTUBE 500 mg TuThSa KRISTA Administration Loperamide HCl 2 mg 12/29/21 10:00 12/30/21 09:14 Loperamide 2 Mg Cap PO 2 mg Q2H PRN Administration Diarrhea Midodrine 5 mg 12/24/21 12:00 12/30/21 08:59 Midodrine 5 Mg Tab FEEDTUBE 5 mg TID@0800,1200,1600 KRISTA Administration Multi-Ingred Cream/Lotion/Oil/Oint 1 applic 12/16/21 14:10 Mineral Oil/Petrolatum, White Ophth Oint 3.5 Gm OU Q4HR PRN Dry Eye(s) Nitroglycerin 0.4 mg 12/11/21 22:11 Nitroglycerin 0.4 Mg Tab Subl SL Q5M PRN Chest Pain Potassium Chloride 40 meq 12/30/21 09:00 12/30/21 08:59 Potassium Chloride Er 20 Meq Tab PO 12/30/21 13:00 40 meq ONCE@0900 KRISTA Administration Simple Syrup 15 ml 12/16/21 11:15 Simple Syrup 15 Ml FEEDTUBE PRN PRN Hypoglycemia Simple Syrup 30 ml 12/16/21 11:15 12/26/21 17:10 Simple Syrup 15 Ml FEEDTUBE 30 ml PRN PRN Administration Hypoglycemia Sodium Bicarbonate 325 mg 12/16/21 11:15 Sodium Bicarbonate 325 Mg Tab FEEDTUBE PRN PRN For Clogged Feeding Tube Sodium Chloride 10 ml 12/11/21 22:11 12/27/21 22:07 Sodium Chloride 0.9% 10 Ml Flush Syringe IV 10 ml PRN PRN Administration LINE FLUSH
--- NOTE | 2021-12-30 11:21 | Progress Note ---
Assessment and Plan - Patient Problems (1) Syncope Current Visit: Yes Status: Acute Plan to address problem: Patient with end-stage renal disease on hemodialysis, admitted with transient dizziness and sepsis, suspected source indwelling Vas-Cath. She is status post respiratory failure, has been extubated successfully. History of a moderate severity cardiomyopathy, ejection fraction 35 to 40%. We will continue conservative cardiac management with medical therapy as tolerated. Subjective Date of service: 12/30/21 Principal diagnosis: Septic shock ; Bacteremia; ESRD on dialysis; AMS; NSTEMI; HTN; DM II Interval history: No new cardiac complaints, no cardiac events reported. Dialysis planned for today. Objective Vital Signs Temp Pulse Pulse Resp Resp Resp BP 12/30/21 11:00 70 158/88 12/30/21 10:45 66 157/85 12/30/21 10:30 74 142/85 12/30/21 10:15 75 132/78 12/30/21 10:00 76 126/79 12/30/21 09:40 98.5 F 76 18 122/73 12/30/21 07:27 98.3 F 70 20 122/53 12/30/21 04:47 20 12/30/21 03:39 98.2 F 72 16 115/60 12/29/21 23:01 98.7 F 81 18 128/54 12/29/21 20:33 18 12/29/21 20:22 18 12/29/21 20:18 78 12/29/21 20:17 18 12/29/21 19:46 12/29/21 19:45 87 19 12/29/21 19:32 98.0 F 78 16 145/68 12/29/21 16:40 98.8 F 77 20 146/89 Pulse Ox Pulse Ox 12/30/21 11:00 12/30/21 10:45 12/30/21 10:30 12/30/21 10:15 12/30/21 10:00 12/30/21 09:40 100 12/30/21 07:27 100 12/30/21 04:47 12/30/21 03:39 100 12/29/21 23:01 96 12/29/21 20:33 96 12/29/21 20:22 12/29/21 20:18 12/29/21 20:17 12/29/21 19:46 100 12/29/21 19:45 12/29/21 19:32 98 12/29/21 16:40 98 - Physical Examination General: No Apparent Distress HEENT: Positive: PERRL Neck: Positive: neck supple Cardiac: Positive: Reg Rate and Rhythm Lungs: Positive: Decreased Breath Sounds Neuro: Positive: Grossly Intact Abdomen: Positive: Soft Skin: Positive: Clear Extremities: Absent: edema - Labs and Meds CBC 12/30/21 Range/Units 04:56 WBC 4.2 L (4.5-11.0) K/mm3 RBC 2.83 L (3.65-5.03) M/mm3 Hgb 7.5 L (10.1-14.3) gm/dl Hct 23.1 L (30.3-42.9) % Plt Count 142 (140-440) K/mm3 Comprehensive Metabolic Panel 12/30/21 Range/Units 04:56 Sodium 136 L (137-145) mmol/L Potassium 3.4 L (3.6-5.0) mmol/L Chloride 98.2 (98-107) mmol/L Carbon Dioxide 26 (22-30) mmol/L BUN 37 H (7-17) mg/dL Creatinine 4.2 H (0.6-1.2) mg/dL Glucose 117 H (65-100) mg/dL Calcium 7.7 L (8.4-10.2) mg/dL - Allied health notes Allied health notes reviewed: nursing
[2021-12-30] MEDS: carvediloL 6.25 MG TAB PO SCH ×2 (11:25→21:40)
--- NOTE | 2021-12-30 12:27 | Progress Note ---
Assessment and Plan Septic shock Bacteremia with gram-positive cocci End-stage renal disease on dialysis Colitis Acute toxic metabolic encephalopathy Thrombocytopenia Non-ST elevation myocardial infarction A-Fib with RVR Hypertension Diabetes type 2 Anemia that is normocytic - for dialysis today - continue wound care per RN / WCN - s/p antibiotic's course - continue care as below otherwise; - continue to wean supplemental oxygen for target O2 sat's > 90% acutely - VAP bundle addressed - continue lung protective strategies - continue bronchodilators with pulmonary hygiene per RT - wean per pulmonary driven protocols otherwise - continue HD/UF for toxin and volume clearance - avoid nephrotoxins, renally dose all medications - continue to avoid benzodiazepine's, reduce the possibility of delirium - prn analgesia per pain score - Maintenance of sleep-wake cycle, avoid delirium - continue enteral nutritional support at goal rate as tolerated - G.I. & VTE prophylaxis - PT/OT/ROM exercises - continue mobility protocols for pressure ulcer prophylaxis - Monitor hemodynamics closely - continue other care per attending / other consultants - discharge planning ongoing concurrently .... Re-evaluate in am & prn Subjective Date of service: 12/30/21 Principal diagnosis: Septic shock ; Bacteremia; ESRD on dialysis; AMS; NSTEMI; HTN; DM II Interval history: Patient is seen today for: Septic shock ; gm +ve Bacteremia; ESRD on dialysis; AMS; NSTEMI; Hypertension; DM II Seen and examined at bedside; 24hour events reviewed; nursing and respiratory care staff consulted; no adverse overnight events reported to me; resting peacefully in bed; s/p AV fistulogram with angioplasty; for dilaysis today; no emesis or overt aspiration Objective Vital Signs - 12hr 12/30/21 12/30/21 12/30/21 03:39 04:47 07:27 Temperature 98.2 F 98.3 F Pulse Rate 72 70 Respiratory 16 20 20 Rate Blood Pressure 115/60 122/53 O2 Sat by Pulse 100 100 Oximetry O2 Sat by Pulse Oximetry [ Anterior Bilateral Throughout] 12/30/21 12/30/21 12/30/21 09:40 10:00 10:15 Temperature 98.5 F Pulse Rate 76 76 75 Respiratory 18 18 Rate Blood Pressure 122/73 126/79 132/78 O2 Sat by Pulse 95 Oximetry O2 Sat by Pulse 100 Oximetry [ Anterior Bilateral Throughout] 12/30/21 12/30/21 12/30/21 10:30 10:45 11:00 Temperature Pulse Rate 74 66 70 Respiratory Rate Blood Pressure 142/85 157/85 158/88 O2 Sat by Pulse Oximetry O2 Sat by Pulse Oximetry [ Anterior Bilateral Throughout] 12/30/21 12/30/21 12/30/21 11:15 11:30 11:45 Temperature Pulse Rate 71 71 70 Respiratory Rate Blood Pressure 163/90 161/84 163/90 O2 Sat by Pulse Oximetry O2 Sat by Pulse Oximetry [ Anterior Bilateral Throughout] 12/30/21 12:00 Temperature Pulse Rate 72 Respiratory Rate Blood Pressure 160/94 O2 Sat by Pulse Oximetry O2 Sat by Pulse Oximetry [ Anterior Bilateral Throughout] Constitutional: no acute distress, other (elderly female with normal respiratory effort at rest) Eyes: non-icteric ENT: oropharynx moist, other (extubated) Neck: supple, no JVD Effort: normal Ascultation: Bilateral: rhonchi (scant) Percussion: Bilateral: not dull Cardiovascular: regular rate and rhythm Gastrointestinal: normoactive bowel sounds, soft, non-tender, non-distended (protuberant) Integumentary: rash (right groin / ? scar), other (Left upper extremity AV graft; right forearm blisters (open and closed) and induration; no pus) Extremities: no cyanosis, pulses normal, no ischemia or petechiae, edema (right upper extremity) Neurologic: non-focal exam (grossly), pupils equal and round, CN II-XII normal, motor strength normal and Psychiatric: mood appropriate, affect normal CBC and BMP: 12/30/21 04:56 12/31/21 Unknown ABG, PT/INR, D-dimer: ABG ABG pH 7.450 pH Units (7.350-7.450) 12/24/21 Unknown POC ABG pCO2 36.0 mmHg (32.0-48.0) 12/21/21 10:20 ABG pCO2 39.1 mm Hg 12/24/21 Unknown POC ABG pO2 126.1 mmHg (83-108) H 12/21/21 10:20 ABG pO2 109.1 mm Hg (80.0-90.0) H 12/24/21 Unknown POC ABG HCO3 24.3 12/21/21 10:20 ABG O2 Saturation 98.1 % (95.0-99.0) 12/24/21 Unknown PT/INR, D-dimer PT 17.7 Sec. (12.2-14.9) H 12/22/21 14:05 INR 1.30 (0.87-1.13) H 12/22/21 14:05 Abnormal lab findings: Abnormal Labs 12/11/21 12/11/21 12/12/21 14:52 15:40 04:43 WBC RBC 3.57 L Hgb 9.4 L Hct 29.5 L MCH 26 L 27 L RDW 17.8 H 17.9 H Plt Count 119 L 110 L Lymph % (Auto) 4.0 L [place] % (Auto) Lymph # (Auto) 0.3 L [place] # (Auto) Seg Neutrophils % 90.0 H Seg Neuts % (Manual) Lymphocytes % (Manual) Monocytes % (Manual) Nucleated RBC % Seg Neutrophils # Seg Neutrophils # Man Lymphocytes # (Manual) Percent Retic PT INR Fibrinogen ABG pH POC ABG pO2 ABG pO2 ABG HCO3 ABG O2 Saturation ABG Base Excess ABG Hemoglobin VBG pO2 Oxyhemoglobin Sodium Potassium Chloride Carbon Dioxide 18 L BUN 76 H Creatinine 9.2 H Glucose POC Glucose Lactic Acid Calcium 7.7 L Phosphorus Magnesium Iron TIBC Ferritin Alkaline Phosphatase 237 H Lactate Dehydrogenase Troponin T 0.168 H* C-Reactive Protein Total Protein Albumin 3.6 L LDL Cholesterol Direct 16 L Crossmatch 12/12/21 12/12/21 12/12/21 04:43 04:43 08:49 WBC RBC Hgb Hct MCH RDW Plt Count Lymph % (Auto) [place] % (Auto) Lymph # (Auto) [place] # (Auto) Seg Neutrophils % Seg Neuts % (Manual) Lymphocytes % (Manual) Monocytes % (Manual) Nucleated RBC % Seg Neutrophils # Seg Neutrophils # Man Lymphocytes # (Manual) Percent Retic PT INR Fibrinogen ABG pH POC ABG pO2 ABG pO2 ABG HCO3 ABG O2 Saturation ABG Base Excess ABG Hemoglobin VBG pO2 Oxyhemoglobin Sodium 136 L Potassium Chloride 96.0 L Carbon Dioxide BUN 85 H Creatinine 9.6 H Glucose 57 L POC Glucose 47 L Lactic Acid Calcium 7.8 L Phosphorus Magnesium Iron TIBC Ferritin Alkaline Phosphatase Lactate Dehydrogenase Troponin T 0.175 H* C-Reactive Protein Total Protein Albumin LDL Cholesterol Direct Crossmatch 12/12/21 12/13/21 12/13/21 11:12 07:30 07:30 WBC RBC Hgb 9.7 L Hct 30.0 L MCH 27 L RDW 18.0 H Plt Count 99 L Lymph % (Auto) 4.8 L [place] % (Auto) Lymph # (Auto) 0.3 L [place] # (Auto) Seg Neutrophils % 88.2 H Seg Neuts % (Manual) Lymphocytes % (Manual) Monocytes % (Manual) Nucleated RBC % Seg Neutrophils # Seg Neutrophils # Man Lymphocytes # (Manual) Percent Retic PT INR Fibrinogen ABG pH POC ABG pO2 ABG pO2 ABG HCO3 ABG O2 Saturation ABG Base Excess ABG Hemoglobin VBG pO2 Oxyhemoglobin Sodium Potassium 5.1 H Chloride 97.8 L Carbon Dioxide 16 L BUN 92 H Creatinine 10.6 H Glucose 121 H POC Glucose 64 L Lactic Acid Calcium 7.6 L Phosphorus Magnesium Iron TIBC Ferritin Alkaline Phosphatase Lactate Dehydrogenase Troponin T C-Reactive Protein Total Protein Albumin LDL Cholesterol Direct Crossmatch 12/13/21 12/13/21 12/13/21 08:06 11:32 16:59 WBC RBC Hgb Hct MCH RDW Plt Count Lymph % (Auto) [place] % (Auto) Lymph # (Auto) [place] # (Auto) Seg Neutrophils % Seg Neuts % (Manual) Lymphocytes % (Manual) Monocytes % (Manual) Nucleated RBC % Seg Neutrophils # Seg Neutrophils # Man Lymphocytes # (Manual) Percent Retic PT INR Fibrinogen ABG pH POC ABG pO2 ABG pO2 ABG HCO3 ABG O2 Saturation ABG Base Excess ABG Hemoglobin VBG pO2 Oxyhemoglobin Sodium Potassium Chloride Carbon Dioxide BUN Creatinine Glucose POC Glucose 118 H 128 H 130 H Lactic Acid Calcium Phosphorus Magnesium Iron TIBC Ferritin Alkaline Phosphatase Lactate Dehydrogenase Troponin T C-Reactive Protein Total Protein Albumin LDL Cholesterol Direct Crossmatch 12/13/21 12/14/21 12/14/21 20:16 11:10 11:10 WBC RBC Hgb 9.9 L Hct MCH 27 L RDW 18.1 H Plt Count 82 L Lymph % (Auto) 5.8 L [place] % (Auto) Lymph # (Auto) 0.4 L [place] # (Auto) Seg Neutrophils % 88.3 H Seg Neuts % (Manual) Lymphocytes % (Manual) Monocytes % (Manual) Nucleated RBC % Seg Neutrophils # Seg Neutrophils # Man Lymphocytes # (Manual) Percent Retic PT INR Fibrinogen ABG pH POC ABG pO2 ABG pO2 ABG HCO3 ABG O2 Saturation ABG Base Excess ABG Hemoglobin VBG pO2 Oxyhemoglobin Sodium Potassium Chloride Carbon Dioxide 21 L BUN 57 H Creatinine 7.1 H Glucose 105 H POC Glucose 113 H Lactic Acid Calcium Phosphorus Magnesium Iron TIBC Ferritin Alkaline Phosphatase Lactate Dehydrogenase Troponin T C-Reactive Protein Total Protein Albumin LDL Cholesterol Direct Crossmatch 12/14/21 12/14/21 12/15/21 11:46 16:41 04:11 WBC RBC Hgb 9.9 L Hct 30.0 L MCH 27 L RDW 18.4 H Plt Count 57 L Lymph % (Auto) [place] % (Auto) Lymph # (Auto) [place] # (Auto) Seg Neutrophils % Seg Neuts % (Manual) Lymphocytes % (Manual) 9.0 L Monocytes % (Manual) 10.0 H Nucleated RBC % Seg Neutrophils # Seg Neutrophils # Man Lymphocytes # (Manual) 0.6 L Percent Retic PT INR Fibrinogen ABG pH POC ABG pO2 ABG pO2 ABG HCO3 ABG O2 Saturation ABG Base Excess ABG Hemoglobin VBG pO2 Oxyhemoglobin Sodium Potassium Chloride Carbon Dioxide BUN Creatinine Glucose POC Glucose 108 H 111 H Lactic Acid Calcium Phosphorus Magnesium Iron TIBC Ferritin Alkaline Phosphatase Lactate Dehydrogenase Troponin T C-Reactive Protein Total Protein Albumin LDL Cholesterol Direct Crossmatch 12/15/21 12/15/21 12/15/21 04:11 08:48 10:02 WBC RBC Hgb Hct MCH RDW Plt Count Lymph % (Auto) [place] % (Auto) Lymph # (Auto) [place] # (Auto) Seg Neutrophils % Seg Neuts % (Manual) Lymphocytes % (Manual) Monocytes % (Manual) Nucleated RBC % Seg Neutrophils # Seg Neutrophils # Man Lymphocytes # (Manual) Percent Retic PT INR Fibrinogen ABG pH POC ABG pO2 ABG pO2 ABG HCO3 ABG O2 Saturation ABG Base Excess ABG Hemoglobin VBG pO2 Oxyhemoglobin Sodium Potassium Chloride Carbon Dioxide 19 L BUN 68 H Creatinine 7.6 H Glucose POC Glucose 68 L 65 L Lactic Acid Calcium 8.1 L Phosphorus Magnesium Iron TIBC Ferritin Alkaline Phosphatase Lactate Dehydrogenase Troponin T C-Reactive Protein Total Protein Albumin LDL Cholesterol Direct Crossmatch 12/15/21 12/15/21 12/15/21 10:20 10:51 14:40 WBC RBC Hgb Hct MCH RDW Plt Count Lymph % (Auto) [place] % (Auto) Lymph # (Auto) [place] # (Auto) Seg Neutrophils % Seg Neuts % (Manual) Lymphocytes % (Manual) Monocytes % (Manual) Nucleated RBC % Seg Neutrophils # Seg Neutrophils # Man Lymphocytes # (Manual) Percent Retic PT INR Fibrinogen ABG pH POC ABG pO2 ABG pO2 ABG HCO3 ABG O2 Saturation ABG Base Excess ABG Hemoglobin VBG pO2 Oxyhemoglobin Sodium Potassium Chloride Carbon Dioxide BUN Creatinine Glucose POC Glucose 59 L 60 L Lactic Acid 2.50 H* Calcium Phosphorus Magnesium Iron TIBC Ferritin Alkaline Phosphatase Lactate Dehydrogenase Troponin T C-Reactive Protein Total Protein Albumin LDL Cholesterol Direct Crossmatch 12/15/21 12/15/21 12/16/21 14:40 19:50 05:00 WBC 12.4 H RBC Hgb 9.6 L Hct 29.4 L MCH 26 L RDW 18.1 H Plt Count 40 L Lymph % (Auto) [place] % (Auto) Lymph # (Auto) [place] # (Auto) Seg Neutrophils % Seg Neuts % (Manual) 95.0 H Lymphocytes % (Manual) 5.0 L Monocytes % (Manual) Nucleated RBC % Seg Neutrophils # Seg Neutrophils # Man 11.8 H Lymphocytes # (Manual) 0.6 L Percent Retic PT INR Fibrinogen ABG pH POC ABG pO2 ABG pO2 463.3 H ABG HCO3 ABG O2 Saturation 99.6 H ABG Base Excess ABG Hemoglobin 10.9 L VBG pO2 > 258.0 H Oxyhemoglobin Sodium Potassium Chloride Carbon Dioxide BUN Creatinine Glucose POC Glucose Lactic Acid Calcium Phosphorus Magnesium Iron TIBC Ferritin Alkaline Phosphatase Lactate Dehydrogenase Troponin T C-Reactive Protein 38.50 H Total Protein Albumin LDL Cholesterol Direct Crossmatch 12/16/21 12/16/21 12/16/21 05:00 06:15 09:58 WBC RBC Hgb Hct MCH RDW Plt Count Lymph % (Auto) [place] % (Auto) Lymph # (Auto) [place] # (Auto) Seg Neutrophils % Seg Neuts % (Manual) Lymphocytes % (Manual) Monocytes % (Manual) Nucleated RBC % Seg Neutrophils # Seg Neutrophils # Man Lymphocytes # (Manual) Percent Retic PT INR Fibrinogen ABG pH POC ABG pO2 ABG pO2 48.0 L ABG HCO3 ABG O2 Saturation 80.5 L ABG Base Excess -2.9 L ABG Hemoglobin 11.2 L VBG pO2 Oxyhemoglobin 78.8 L Sodium Potassium Chloride Carbon Dioxide BUN 75 H Creatinine 7.7 H Glucose POC Glucose 67 L Lactic Acid Calcium 8.3 L Phosphorus Magnesium Iron TIBC Ferritin Alkaline Phosphatase Lactate Dehydrogenase Troponin T C-Reactive Protein Total Protein Albumin LDL Cholesterol Direct Crossmatch 12/16/21 12/16/21 12/17/21 11:06 23:24 04:00 WBC 12.3 H RBC 3.32 L Hgb 8.8 L Hct 26.5 L MCH 26 L RDW 18.0 H Plt Count 27 L Lymph % (Auto) 5.9 L [place] % (Auto) Lymph # (Auto) 0.7 L [place] # (Auto) Seg Neutrophils % 88.3 H Seg Neuts % (Manual) Lymphocytes % (Manual) Monocytes % (Manual) Nucleated RBC % Seg Neutrophils # 10.9 H Seg Neutrophils # Man Lymphocytes # (Manual) Percent Retic PT INR Fibrinogen ABG pH POC ABG pO2 ABG pO2 137.7 H ABG HCO3 ABG O2 Saturation ABG Base Excess ABG Hemoglobin 9.9 L VBG pO2 Oxyhemoglobin Sodium Potassium Chloride Carbon Dioxide BUN Creatinine Glucose POC Glucose 110 H Lactic Acid Calcium Phosphorus Magnesium Iron TIBC Ferritin Alkaline Phosphatase Lactate Dehydrogenase Troponin T C-Reactive Protein Total Protein Albumin LDL Cholesterol Direct Crossmatch 12/17/21 12/17/21 12/17/21 04:30 04:30 11:18 WBC RBC Hgb Hct MCH RDW Plt Count Lymph % (Auto) [place] % (Auto) Lymph # (Auto) [place] # (Auto) Seg Neutrophils % Seg Neuts % (Manual) Lymphocytes % (Manual) Monocytes % (Manual) Nucleated RBC % Seg Neutrophils # Seg Neutrophils # Man Lymphocytes # (Manual) Percent Retic PT INR Fibrinogen ABG pH POC ABG pO2 ABG pO2 ABG HCO3 ABG O2 Saturation ABG Base Excess ABG Hemoglobin VBG pO2 Oxyhemoglobin Sodium Potassium Chloride Carbon Dioxide BUN 43 H Creatinine 5.0 H Glucose 129 H POC Glucose 149 H Lactic Acid Calcium 7.8 L Phosphorus 1.90 L Magnesium 1.60 L Iron TIBC Ferritin Alkaline Phosphatase Lactate Dehydrogenase Troponin T C-Reactive Protein Total Protein Albumin LDL Cholesterol Direct Crossmatch 12/17/21 12/17/21 12/17/21 14:35 16:58 18:32 WBC RBC Hgb Hct MCH RDW Plt Count Lymph % (Auto) [place] % (Auto) Lymph # (Auto) [place] # (Auto) Seg Neutrophils % Seg Neuts % (Manual) Lymphocytes % (Manual) Monocytes % (Manual) Nucleated RBC % Seg Neutrophils # Seg Neutrophils # Man Lymphocytes # (Manual) Percent Retic PT 17.4 H INR 1.27 H Fibrinogen 486 H ABG pH 7.316 L POC ABG pO2 ABG pO2 74.0 L ABG HCO3 ABG O2 Saturation 93.7 L ABG Base Excess -3.3 L ABG Hemoglobin 8.8 L VBG pO2 Oxyhemoglobin 91.7 L Sodium Potassium Chloride Carbon Dioxide BUN Creatinine Glucose POC Glucose 219 H Lactic Acid Calcium Phosphorus Magnesium Iron TIBC Ferritin Alkaline Phosphatase Lactate Dehydrogenase Troponin T C-Reactive Protein Total Protein Albumin LDL Cholesterol Direct Crossmatch 12/17/21 12/18/21 12/18/21 23:19 05:00 05:00 WBC 15.3 H RBC 3.25 L Hgb 8.4 L Hct 25.7 L MCH 26 L RDW 18.2 H Plt Count 28 L Lymph % (Auto) [place] % (Auto) Lymph # (Auto) [place] # (Auto) Seg Neutrophils % Seg Neuts % (Manual) 99.0 H Lymphocytes % (Manual) 1.0 L Monocytes % (Manual) Nucleated RBC % 1.0 H Seg Neutrophils # Seg Neutrophils # Man 15.1 H Lymphocytes # (Manual) 0.2 L Percent Retic 0.37 L PT INR Fibrinogen ABG pH POC ABG pO2 ABG pO2 ABG HCO3 ABG O2 Saturation ABG Base Excess ABG Hemoglobin VBG pO2 Oxyhemoglobin Sodium 135 L Potassium Chloride Carbon Dioxide 20 L BUN 53 H Creatinine 5.2 H Glucose 307 H POC Glucose 313 H Lactic Acid Calcium 8.0 L Phosphorus Magnesium Iron 13 L TIBC 109 L Ferritin Alkaline Phosphatase Lactate Dehydrogenase Troponin T C-Reactive Protein Total Protein Albumin LDL Cholesterol Direct Crossmatch 12/18/21 12/18/21 12/18/21 05:00 05:00 09:00 WBC RBC Hgb Hct MCH RDW Plt Count Lymph % (Auto) [place] % (Auto) Lymph # (Auto) [place] # (Auto) Seg Neutrophils % Seg Neuts % (Manual) Lymphocytes % (Manual) Monocytes % (Manual) Nucleated RBC % Seg Neutrophils # Seg Neutrophils # Man Lymphocytes # (Manual) Percent Retic PT INR Fibrinogen 481 H ABG pH POC ABG pO2 ABG pO2 50.2 L ABG HCO3 ABG O2 Saturation 81.7 L ABG Base Excess -3.6 L ABG Hemoglobin 8.0 L VBG pO2 Oxyhemoglobin 80.0 L Sodium Potassium Chloride Carbon Dioxide BUN Creatinine Glucose POC Glucose Lactic Acid Calcium Phosphorus Magnesium Iron TIBC Ferritin 383.4 H Alkaline Phosphatase Lactate Dehydrogenase Troponin T C-Reactive Protein Total Protein Albumin LDL Cholesterol Direct Crossmatch 12/18/21 12/18/21 12/18/21 10:56 11:10 12:00 WBC RBC Hgb Hct MCH RDW Plt Count Lymph % (Auto) [place] % (Auto) Lymph # (Auto) [place] # (Auto) Seg Neutrophils % Seg Neuts % (Manual) Lymphocytes % (Manual) Monocytes % (Manual) Nucleated RBC % Seg Neutrophils # Seg Neutrophils # Man Lymphocytes # (Manual) Percent Retic PT INR Fibrinogen ABG pH POC ABG pO2 ABG pO2 92.7 H ABG HCO3 19.8 L ABG O2 Saturation ABG Base Excess -3.8 L ABG Hemoglobin 6.6 L VBG pO2 Oxyhemoglobin Sodium Potassium Chloride Carbon Dioxide BUN Creatinine Glucose POC Glucose 190 H Lactic Acid Calcium Phosphorus 2.40 L D Magnesium Iron TIBC Ferritin Alkaline Phosphatase Lactate Dehydrogenase Troponin T C-Reactive Protein Total Protein Albumin LDL Cholesterol Direct Crossmatch 12/18/21 12/18/21 12/18/21 18:06 20:00 23:05 WBC 19.2 H RBC 3.51 L Hgb 8.8 L Hct 27.8 L MCH 25 L RDW 18.1 H Plt Count 34 L Lymph % (Auto) [place] % (Auto) Lymph # (Auto) [place] # (Auto) Seg Neutrophils % Seg Neuts % (Manual) Lymphocytes % (Manual) Monocytes % (Manual) Nucleated RBC % Seg Neutrophils # Seg Neutrophils # Man Lymphocytes # (Manual) Percent Retic PT INR Fibrinogen ABG pH POC ABG pO2 ABG pO2 62.5 L ABG HCO3 26.6 H ABG O2 Saturation 91.7 L ABG Base Excess ABG Hemoglobin 8.4 L VBG pO2 Oxyhemoglobin 89.9 L Sodium Potassium Chloride Carbon Dioxide BUN Creatinine Glucose POC Glucose 156 H Lactic Acid Calcium Phosphorus Magnesium Iron TIBC Ferritin Alkaline Phosphatase Lactate Dehydrogenase Troponin T C-Reactive Protein Total Protein Albumin LDL Cholesterol Direct Crossmatch 12/18/21 12/19/21 12/19/21 23:54 05:00 05:00 WBC 18.9 H RBC 3.29 L Hgb 8.4 L Hct 26.0 L MCH 26 L RDW 18.2 H Plt Count 34 L Lymph % (Auto) [place] % (Auto) Lymph # (Auto) [place] # (Auto) Seg Neutrophils % Seg Neuts % (Manual) 93.0 H Lymphocytes % (Manual) 2.0 L Monocytes % (Manual) Nucleated RBC % Seg Neutrophils # Seg Neutrophils # Man 17.6 H Lymphocytes # (Manual) 0.4 L Percent Retic PT INR Fibrinogen ABG pH POC ABG pO2 ABG pO2 ABG HCO3 ABG O2 Saturation ABG Base Excess ABG Hemoglobin VBG pO2 Oxyhemoglobin Sodium Potassium Chloride Carbon Dioxide BUN 30 H Creatinine 3.1 H Glucose 155 H POC Glucose 122 H Lactic Acid Calcium 8.2 L Phosphorus Magnesium Iron TIBC Ferritin Alkaline Phosphatase Lactate Dehydrogenase Troponin T C-Reactive Protein Total Protein Albumin LDL Cholesterol Direct Crossmatch 12/19/21 12/19/21 12/19/21 05:29 11:41 17:48 WBC RBC Hgb Hct MCH RDW Plt Count Lymph % (Auto) [place] % (Auto) Lymph # (Auto) [place] # (Auto) Seg Neutrophils % Seg Neuts % (Manual) Lymphocytes % (Manual) Monocytes % (Manual) Nucleated RBC % Seg Neutrophils # Seg Neutrophils # Man Lymphocytes # (Manual) Percent Retic PT INR Fibrinogen ABG pH POC ABG pO2 ABG pO2 ABG HCO3 ABG O2 Saturation ABG Base Excess ABG Hemoglobin VBG pO2 Oxyhemoglobin Sodium Potassium Chloride Carbon Dioxide BUN Creatinine Glucose POC Glucose 153 H 164 H 113 H Lactic Acid Calcium Phosphorus Magnesium Iron TIBC Ferritin Alkaline Phosphatase Lactate Dehydrogenase Troponin T C-Reactive Protein Total Protein Albumin LDL Cholesterol Direct Crossmatch 12/19/21 12/20/21 12/20/21 23:53 04:45 04:45 WBC 15.0 H RBC 3.39 L Hgb 8.4 L Hct 26.8 L MCH 25 L RDW 17.8 H Plt Count 36 L Lymph % (Auto) [place] % (Auto) Lymph # (Auto) [place] # (Auto) Seg Neutrophils % Seg Neuts % (Manual) Lymphocytes % (Manual) Monocytes % (Manual) Nucleated RBC % Seg Neutrophils # Seg Neutrophils # Man Lymphocytes # (Manual) Percent Retic PT INR Fibrinogen ABG pH POC ABG pO2 ABG pO2 ABG HCO3 ABG O2 Saturation ABG Base Excess ABG Hemoglobin VBG pO2 Oxyhemoglobin Sodium 135 L Potassium Chloride 96.1 L Carbon Dioxide BUN 48 H Creatinine 3.9 H Glucose 188 H POC Glucose 157 H Lactic Acid Calcium 8.1 L Phosphorus Magnesium Iron TIBC Ferritin Alkaline Phosphatase Lactate Dehydrogenase Troponin T C-Reactive Protein Total Protein Albumin LDL Cholesterol Direct Crossmatch 12/20/21 12/20/21 12/20/21 05:07 11:13 16:35 WBC RBC Hgb Hct MCH RDW Plt Count Lymph % (Auto) [place] % (Auto) Lymph # (Auto) [place] # (Auto) Seg Neutrophils % Seg Neuts % (Manual) Lymphocytes % (Manual) Monocytes % (Manual) Nucleated RBC % Seg Neutrophils # Seg Neutrophils # Man Lymphocytes # (Manual) Percent Retic PT INR Fibrinogen ABG pH POC ABG pO2 ABG pO2 ABG HCO3 ABG O2 Saturation ABG Base Excess ABG Hemoglobin VBG pO2 Oxyhemoglobin Sodium Potassium Chloride Carbon Dioxide BUN Creatinine Glucose POC Glucose 169 H 198 H 198 H Lactic Acid Calcium Phosphorus Magnesium Iron TIBC Ferritin Alkaline Phosphatase Lactate Dehydrogenase Troponin T C-Reactive Protein Total Protein Albumin LDL Cholesterol Direct Crossmatch 12/20/21 12/21/21 12/21/21 23:50 05:58 08:00 WBC 16.7 H RBC Hgb 9.3 L Hct 29.2 L MCH 25 L RDW 18.5 H Plt Count 62 L Lymph % (Auto) [place] % (Auto) Lymph # (Auto) [place] # (Auto) Seg Neutrophils % Seg Neuts % (Manual) Lymphocytes % (Manual) Monocytes % (Manual) Nucleated RBC % Seg Neutrophils # Seg Neutrophils # Man Lymphocytes # (Manual) Percent Retic PT INR Fibrinogen ABG pH POC ABG pO2 ABG pO2 ABG HCO3 ABG O2 Saturation ABG Base Excess ABG Hemoglobin VBG pO2 Oxyhemoglobin Sodium Potassium Chloride Carbon Dioxide BUN Creatinine Glucose POC Glucose 176 H 185 H Lactic Acid Calcium Phosphorus Magnesium Iron TIBC Ferritin Alkaline Phosphatase Lactate Dehydrogenase Troponin T C-Reactive Protein Total Protein Albumin LDL Cholesterol Direct Crossmatch 12/21/21 12/21/21 12/21/21 08:35 08:35 10:20 WBC RBC Hgb Hct MCH RDW Plt Count Lymph % (Auto) [place] % (Auto) Lymph # (Auto) [place] # (Auto) Seg Neutrophils % Seg Neuts % (Manual) Lymphocytes % (Manual) Monocytes % (Manual) Nucleated RBC % Seg Neutrophils # Seg Neutrophils # Man Lymphocytes # (Manual) Percent Retic PT 16.4 H INR 1.18 H Fibrinogen ABG pH POC ABG pO2 126.1 H ABG pO2 ABG HCO3 ABG O2 Saturation ABG Base Excess ABG Hemoglobin 11.1 L VBG pO2 Oxyhemoglobin Sodium Potassium 3.5 L Chloride Carbon Dioxide BUN 36 H Creatinine 2.7 H Glucose 174 H POC Glucose Lactic Acid Calcium 8.3 L Phosphorus Magnesium Iron TIBC Ferritin Alkaline Phosphatase Lactate Dehydrogenase 249 H Troponin T C-Reactive Protein Total Protein Albumin LDL Cholesterol Direct Crossmatch 12/21/21 12/21/21 12/21/21 11:18 17:14 18:00 WBC 20.2 H RBC Hgb 9.9 L Hct MCH 25 L RDW 18.0 H Plt Count 60 L Lymph % (Auto) [place] % (Auto) Lymph # (Auto) [place] # (Auto) Seg Neutrophils % Seg Neuts % (Manual) Lymphocytes % (Manual) Monocytes % (Manual) Nucleated RBC % Seg Neutrophils # Seg Neutrophils # Man Lymphocytes # (Manual) Percent Retic PT INR Fibrinogen ABG pH POC ABG pO2 ABG pO2 ABG HCO3 ABG O2 Saturation ABG Base Excess ABG Hemoglobin VBG pO2 Oxyhemoglobin Sodium Potassium Chloride Carbon Dioxide BUN Creatinine Glucose POC Glucose 181 H 222 H Lactic Acid Calcium Phosphorus Magnesium Iron TIBC Ferritin Alkaline Phosphatase Lactate Dehydrogenase Troponin T C-Reactive Protein Total Protein Albumin LDL Cholesterol Direct Crossmatch 12/21/21 12/21/21 12/22/21 19:26 23:28 04:14 WBC 23.9 H RBC Hgb Hct MCH 25 L RDW 17.8 H Plt Count 68 L Lymph % (Auto) [place] % (Auto) Lymph # (Auto) [place] # (Auto) Seg Neutrophils % Seg Neuts % (Manual) Lymphocytes % (Manual) Monocytes % (Manual) Nucleated RBC % Seg Neutrophils # Seg Neutrophils # Man Lymphocytes # (Manual) Percent Retic PT INR Fibrinogen ABG pH POC ABG pO2 ABG pO2 ABG HCO3 ABG O2 Saturation ABG Base Excess ABG Hemoglobin VBG pO2 Oxyhemoglobin Sodium Potassium Chloride Carbon Dioxide BUN Creatinine Glucose POC Glucose 214 H 260 H Lactic Acid Calcium Phosphorus Magnesium Iron TIBC Ferritin Alkaline Phosphatase Lactate Dehydrogenase Troponin T C-Reactive Protein Total Protein Albumin LDL Cholesterol Direct Crossmatch 12/22/21 12/22/21 12/22/21 04:14 05:28 11:12 WBC RBC Hgb Hct MCH RDW Plt Count Lymph % (Auto) [place] % (Auto) Lymph # (Auto) [place] # (Auto) Seg Neutrophils % Seg Neuts % (Manual) Lymphocytes % (Manual) Monocytes % (Manual) Nucleated RBC % Seg Neutrophils # Seg Neutrophils # Man Lymphocytes # (Manual) Percent Retic PT INR Fibrinogen ABG pH POC ABG pO2 ABG pO2 ABG HCO3 ABG O2 Saturation ABG Base Excess ABG Hemoglobin VBG pO2 Oxyhemoglobin Sodium 136 L Potassium 3.0 L Chloride Carbon Dioxide BUN 52 H Creatinine 3.5 H Glucose 202 H POC Glucose 223 H 191 H Lactic Acid Calcium 8.1 L Phosphorus Magnesium Iron TIBC Ferritin Alkaline Phosphatase Lactate Dehydrogenase Troponin T C-Reactive Protein Total Protein Albumin LDL Cholesterol Direct Crossmatch 12/22/21 12/22/21 12/23/21 14:05 17:57 04:39 WBC 21.1 H RBC Hgb 10.0 L Hct MCH 26 L RDW 17.6 H Plt Count 79 L Lymph % (Auto) [place] % (Auto) Lymph # (Auto) [place] # (Auto) Seg Neutrophils % Seg Neuts % (Manual) Lymphocytes % (Manual) Monocytes % (Manual) Nucleated RBC % Seg Neutrophils # Seg Neutrophils # Man Lymphocytes # (Manual) Percent Retic PT 17.7 H INR 1.30 H Fibrinogen ABG pH POC ABG pO2 ABG pO2 ABG HCO3 ABG O2 Saturation ABG Base Excess ABG Hemoglobin VBG pO2 Oxyhemoglobin Sodium Potassium Chloride Carbon Dioxide BUN Creatinine Glucose POC Glucose 140 H Lactic Acid Calcium Phosphorus Magnesium Iron TIBC Ferritin Alkaline Phosphatase Lactate Dehydrogenase Troponin T C-Reactive Protein Total Protein Albumin LDL Cholesterol Direct Crossmatch 12/23/21 12/23/21 12/23/21 04:39 05:11 11:44 WBC RBC Hgb Hct MCH RDW Plt Count Lymph % (Auto) [place] % (Auto) Lymph # (Auto) [place] # (Auto) Seg Neutrophils % Seg Neuts % (Manual) Lymphocytes % (Manual) Monocytes % (Manual) Nucleated RBC % Seg Neutrophils # Seg Neutrophils # Man Lymphocytes # (Manual) Percent Retic PT INR Fibrinogen ABG pH POC ABG pO2 ABG pO2 ABG HCO3 ABG O2 Saturation ABG Base Excess ABG Hemoglobin VBG pO2 Oxyhemoglobin Sodium 136 L Potassium Chloride Carbon Dioxide 19 L BUN 61 H Creatinine 4.5 H Glucose 113 H POC Glucose 109 H 132 H Lactic Acid Calcium 7.9 L Phosphorus 4.90 H Magnesium Iron TIBC Ferritin Alkaline Phosphatase Lactate Dehydrogenase Troponin T C-Reactive Protein Total Protein Albumin LDL Cholesterol Direct Crossmatch 12/23/21 12/23/21 12/23/21 14:05 16:20 16:59 WBC RBC Hgb 9.3 L Hct 28.7 L MCH RDW Plt Count Lymph % (Auto) [place] % (Auto) Lymph # (Auto) [place] # (Auto) Seg Neutrophils % Seg Neuts % (Manual) Lymphocytes % (Manual) Monocytes % (Manual) Nucleated RBC % Seg Neutrophils # Seg Neutrophils # Man Lymphocytes # (Manual) Percent Retic PT INR Fibrinogen ABG pH POC ABG pO2 ABG pO2 ABG HCO3 ABG O2 Saturation ABG Base Excess ABG Hemoglobin VBG pO2 Oxyhemoglobin Sodium Potassium Chloride Carbon Dioxide BUN Creatinine Glucose POC Glucose 180 H Lactic Acid Calcium Phosphorus Magnesium Iron TIBC Ferritin Alkaline Phosphatase Lactate Dehydrogenase Troponin T C-Reactive Protein Total Protein Albumin LDL Cholesterol Direct Crossmatch See Detail 12/23/21 12/23/21 12/24/21 21:44 23:30 03:45 WBC RBC Hgb Hct MCH RDW Plt Count Lymph % (Auto) [place] % (Auto) Lymph # (Auto) [place] # (Auto) Seg Neutrophils % Seg Neuts % (Manual) Lymphocytes % (Manual) Monocytes % (Manual) Nucleated RBC % Seg Neutrophils # Seg Neutrophils # Man Lymphocytes # (Manual) Percent Retic PT INR Fibrinogen ABG pH POC ABG pO2 ABG pO2 ABG HCO3 ABG O2 Saturation ABG Base Excess ABG Hemoglobin VBG pO2 Oxyhemoglobin Sodium Potassium Chloride Carbon Dioxide BUN Creatinine Glucose POC Glucose 141 H 146 H 199 H Lactic Acid Calcium Phosphorus Magnesium Iron TIBC Ferritin Alkaline Phosphatase Lactate Dehydrogenase Troponin T C-Reactive Protein Total Protein Albumin LDL Cholesterol Direct Crossmatch 12/24/21 12/24/21 12/24/21 06:00 06:00 12:37 WBC 16.8 H RBC 2.96 L Hgb 7.5 L Hct 23.3 L MCH 26 L RDW 17.8 H Plt Count 89 L Lymph % (Auto) [place] % (Auto) Lymph # (Auto) [place] # (Auto) Seg Neutrophils % Seg Neuts % (Manual) Lymphocytes % (Manual) Monocytes % (Manual) Nucleated RBC % Seg Neutrophils # Seg Neutrophils # Man Lymphocytes # (Manual) Percent Retic PT INR Fibrinogen ABG pH POC ABG pO2 ABG pO2 ABG HCO3 ABG O2 Saturation ABG Base Excess ABG Hemoglobin VBG pO2 Oxyhemoglobin Sodium Potassium 3.3 L Chloride 97.3 L Carbon Dioxide BUN 31 H Creatinine 2.8 H Glucose 208 H POC Glucose 181 H Lactic Acid Calcium 7.6 L Phosphorus Magnesium Iron TIBC Ferritin Alkaline Phosphatase Lactate Dehydrogenase Troponin T C-Reactive Protein Total Protein Albumin LDL Cholesterol Direct Crossmatch 12/24/21 12/24/21 12/24/21 14:00 17:23 21:50 WBC RBC Hgb 7.4 L 8.8 L Hct 22.0 L 25.9 L MCH RDW Plt Count Lymph % (Auto) [place] % (Auto) Lymph # (Auto) [place] # (Auto) Seg Neutrophils % Seg Neuts % (Manual) Lymphocytes % (Manual) Monocytes % (Manual) Nucleated RBC % Seg Neutrophils # Seg Neutrophils # Man Lymphocytes # (Manual) Percent Retic PT INR Fibrinogen ABG pH POC ABG pO2 ABG pO2 ABG HCO3 ABG O2 Saturation ABG Base Excess ABG Hemoglobin VBG pO2 Oxyhemoglobin Sodium Potassium Chloride Carbon Dioxide BUN Creatinine Glucose POC Glucose 167 H Lactic Acid Calcium Phosphorus Magnesium Iron TIBC Ferritin Alkaline Phosphatase Lactate Dehydrogenase Troponin T C-Reactive Protein Total Protein Albumin LDL Cholesterol Direct Crossmatch 12/24/21 12/24/21 12/25/21 23:54 Unknown 05:12 WBC 17.4 H RBC 3.10 L Hgb 8.3 L Hct 24.7 L MCH 27 L RDW 17.7 H Plt Count 105 L Lymph % (Auto) [place] % (Auto) Lymph # (Auto) [place] # (Auto) Seg Neutrophils % Seg Neuts % (Manual) Lymphocytes % (Manual) Monocytes % (Manual) Nucleated RBC % Seg Neutrophils # Seg Neutrophils # Man Lymphocytes # (Manual) Percent Retic PT INR Fibrinogen ABG pH POC ABG pO2 ABG pO2 109.1 H ABG HCO3 26.6 H ABG O2 Saturation ABG Base Excess ABG Hemoglobin 6.8 L VBG pO2 Oxyhemoglobin Sodium Potassium Chloride Carbon Dioxide BUN Creatinine Glucose POC Glucose 174 H Lactic Acid Calcium Phosphorus Magnesium Iron TIBC Ferritin Alkaline Phosphatase Lactate Dehydrogenase Troponin T C-Reactive Protein Total Protein Albumin LDL Cholesterol Direct Crossmatch 12/25/21 12/25/21 12/25/21 05:12 05:27 11:08 WBC RBC Hgb Hct MCH RDW Plt Count Lymph % (Auto) [place] % (Auto) Lymph # (Auto) [place] # (Auto) Seg Neutrophils % Seg Neuts % (Manual) Lymphocytes % (Manual) Monocytes % (Manual) Nucleated RBC % Seg Neutrophils # Seg Neutrophils # Man Lymphocytes # (Manual) Percent Retic PT INR Fibrinogen ABG pH POC ABG pO2 ABG pO2 ABG HCO3 ABG O2 Saturation ABG Base Excess ABG Hemoglobin VBG pO2 Oxyhemoglobin Sodium Potassium 3.5 L Chloride Carbon Dioxide BUN 38 H Creatinine 3.7 H Glucose 201 H POC Glucose 202 H 185 H Lactic Acid Calcium 8.0 L Phosphorus Magnesium Iron TIBC Ferritin Alkaline Phosphatase Lactate Dehydrogenase Troponin T C-Reactive Protein Total Protein Albumin LDL Cholesterol Direct Crossmatch 12/25/21 12/25/21 12/25/21 12:23 16:45 22:36 WBC RBC Hgb Hct MCH RDW Plt Count Lymph % (Auto) [place] % (Auto) Lymph # (Auto) [place] # (Auto) Seg Neutrophils % Seg Neuts % (Manual) Lymphocytes % (Manual) Monocytes % (Manual) Nucleated RBC % Seg Neutrophils # Seg Neutrophils # Man Lymphocytes # (Manual) Percent Retic PT INR Fibrinogen ABG pH POC ABG pO2 ABG pO2 ABG HCO3 ABG O2 Saturation ABG Base Excess ABG Hemoglobin VBG pO2 Oxyhemoglobin Sodium Potassium Chloride Carbon Dioxide BUN Creatinine Glucose POC Glucose 165 H 109 H 133 H Lactic Acid Calcium Phosphorus Magnesium Iron TIBC Ferritin Alkaline Phosphatase Lactate Dehydrogenase Troponin T C-Reactive Protein Total Protein Albumin LDL Cholesterol Direct Crossmatch 12/26/21 12/26/21 12/26/21 11:19 16:03 17:56 WBC RBC Hgb Hct MCH RDW Plt Count Lymph % (Auto) [place] % (Auto) Lymph # (Auto) [place] # (Auto) Seg Neutrophils % Seg Neuts % (Manual) Lymphocytes % (Manual) Monocytes % (Manual) Nucleated RBC % Seg Neutrophils # Seg Neutrophils # Man Lymphocytes # (Manual) Percent Retic PT INR Fibrinogen ABG pH POC ABG pO2 ABG pO2 ABG HCO3 ABG O2 Saturation ABG Base Excess ABG Hemoglobin VBG pO2 Oxyhemoglobin Sodium Potassium Chloride Carbon Dioxide BUN Creatinine Glucose POC Glucose 59 L 41 L 51 L Lactic Acid Calcium Phosphorus Magnesium Iron TIBC Ferritin Alkaline Phosphatase Lactate Dehydrogenase Troponin T C-Reactive Protein Total Protein Albumin LDL Cholesterol Direct Crossmatch 12/26/21 12/26/21 12/26/21 19:19 23:15 Unknown WBC 14.2 H RBC 3.14 L Hgb 8.5 L Hct 25.1 L MCH 27 L RDW 17.4 H Plt Count 119 L Lymph % (Auto) 8.0 L [place] % (Auto) 8.9 H Lymph # (Auto) 1.1 L [place] # (Auto) 1.3 H Seg Neutrophils % 81.7 H Seg Neuts % (Manual) Lymphocytes % (Manual) Monocytes % (Manual) Nucleated RBC % Seg Neutrophils # 11.6 H Seg Neutrophils # Man Lymphocytes # (Manual) Percent Retic PT INR Fibrinogen ABG pH POC ABG pO2 ABG pO2 ABG HCO3 ABG O2 Saturation ABG Base Excess ABG Hemoglobin VBG pO2 Oxyhemoglobin Sodium Potassium Chloride Carbon Dioxide BUN Creatinine Glucose POC Glucose 110 H 127 H Lactic Acid Calcium Phosphorus Magnesium Iron TIBC Ferritin Alkaline Phosphatase Lactate Dehydrogenase Troponin T C-Reactive Protein Total Protein Albumin LDL Cholesterol Direct Crossmatch 12/27/21 12/27/21 12/27/21 04:00 04:00 05:18 WBC RBC 2.81 L Hgb 7.7 L Hct 22.6 L MCH 27 L RDW 18.0 H Plt Count 120 L Lymph % (Auto) [place] % (Auto) Lymph # (Auto) [place] # (Auto) Seg Neutrophils % Seg Neuts % (Manual) Lymphocytes % (Manual) Monocytes % (Manual) Nucleated RBC % Seg Neutrophils # Seg Neutrophils # Man Lymphocytes # (Manual) Percent Retic PT INR Fibrinogen ABG pH POC ABG pO2 ABG pO2 ABG HCO3 ABG O2 Saturation ABG Base Excess ABG Hemoglobin VBG pO2 Oxyhemoglobin Sodium Potassium Chloride Carbon Dioxide BUN 39 H Creatinine 3.7 H Glucose 147 H POC Glucose 130 H Lactic Acid Calcium 8.0 L Phosphorus Magnesium Iron TIBC Ferritin Alkaline Phosphatase 222 H Lactate Dehydrogenase Troponin T C-Reactive Protein Total Protein 5.9 L Albumin 1.7 L LDL Cholesterol Direct Crossmatch 12/27/21 12/27/21 12/27/21 10:59 18:57 23:59 WBC RBC Hgb Hct MCH RDW Plt Count Lymph % (Auto) [place] % (Auto) Lymph # (Auto) [place] # (Auto) Seg Neutrophils % Seg Neuts % (Manual) Lymphocytes % (Manual) Monocytes % (Manual) Nucleated RBC % Seg Neutrophils # Seg Neutrophils # Man Lymphocytes # (Manual) Percent Retic PT INR Fibrinogen ABG pH POC ABG pO2 ABG pO2 ABG HCO3 ABG O2 Saturation ABG Base Excess ABG Hemoglobin VBG pO2 Oxyhemoglobin Sodium Potassium Chloride Carbon Dioxide BUN Creatinine Glucose POC Glucose 182 H 168 H 154 H Lactic Acid Calcium Phosphorus Magnesium Iron TIBC Ferritin Alkaline Phosphatase Lactate Dehydrogenase Troponin T C-Reactive Protein Total Protein Albumin LDL Cholesterol Direct Crossmatch 12/28/21 12/28/21 12/28/21 06:06 11:18 16:41 WBC RBC Hgb Hct MCH RDW Plt Count Lymph % (Auto) [place] % (Auto) Lymph # (Auto) [place] # (Auto) Seg Neutrophils % Seg Neuts % (Manual) Lymphocytes % (Manual) Monocytes % (Manual) Nucleated RBC % Seg Neutrophils # Seg Neutrophils # Man Lymphocytes # (Manual) Percent Retic PT INR Fibrinogen ABG pH POC ABG pO2 ABG pO2 ABG HCO3 ABG O2 Saturation ABG Base Excess ABG Hemoglobin VBG pO2 Oxyhemoglobin Sodium Potassium Chloride Carbon Dioxide BUN Creatinine Glucose POC Glucose 110 H 159 H 106 H Lactic Acid Calcium Phosphorus Magnesium Iron TIBC Ferritin Alkaline Phosphatase Lactate Dehydrogenase Troponin T C-Reactive Protein Total Protein Albumin LDL Cholesterol Direct Crossmatch 12/28/21 12/29/21 12/29/21 23:43 05:40 06:30 WBC RBC 2.73 L Hgb 7.5 L Hct 22.1 L MCH 27 L RDW 18.0 H Plt Count Lymph % (Auto) [place] % (Auto) Lymph # (Auto) [place] # (Auto) Seg Neutrophils % Seg Neuts % (Manual) Lymphocytes % (Manual) Monocytes % (Manual) Nucleated RBC % Seg Neutrophils # Seg Neutrophils # Man Lymphocytes # (Manual) Percent Retic PT INR Fibrinogen ABG pH POC ABG pO2 ABG pO2 ABG HCO3 ABG O2 Saturation ABG Base Excess ABG Hemoglobin VBG pO2 Oxyhemoglobin Sodium Potassium Chloride Carbon Dioxide BUN Creatinine Glucose POC Glucose 171 H 143 H Lactic Acid Calcium Phosphorus Magnesium Iron TIBC Ferritin Alkaline Phosphatase Lactate Dehydrogenase Troponin T C-Reactive Protein Total Protein Albumin LDL Cholesterol Direct Crossmatch 12/29/21 12/29/21 12/29/21 06:30 16:42 22:59 WBC RBC Hgb Hct MCH RDW Plt Count Lymph % (Auto) [place] % (Auto) Lymph # (Auto) [place] # (Auto) Seg Neutrophils % Seg Neuts % (Manual) Lymphocytes % (Manual) Monocytes % (Manual) Nucleated RBC % Seg Neutrophils # Seg Neutrophils # Man Lymphocytes # (Manual) Percent Retic PT INR Fibrinogen ABG pH POC ABG pO2 ABG pO2 ABG HCO3 ABG O2 Saturation ABG Base Excess ABG Hemoglobin VBG pO2 Oxyhemoglobin Sodium 132 L D Potassium 3.3 L Chloride 95.9 L Carbon Dioxide BUN 30 H Creatinine 3.3 H Glucose 164 H POC Glucose 107 H 146 H Lactic Acid Calcium 7.8 L Phosphorus Magnesium Iron TIBC Ferritin Alkaline Phosphatase Lactate Dehydrogenase Troponin T C-Reactive Protein Total Protein Albumin LDL Cholesterol Direct Crossmatch 12/30/21 12/30/21 12/30/21 04:56 04:56 05:35 WBC 4.2 L RBC 2.83 L Hgb 7.5 L Hct 23.1 L MCH 27 L RDW 18.3 H Plt Count Lymph % (Auto) [place] % (Auto) Lymph # (Auto) [place] # (Auto) Seg Neutrophils % Seg Neuts % (Manual) Lymphocytes % (Manual) Monocytes % (Manual) Nucleated RBC % Seg Neutrophils # Seg Neutrophils # Man Lymphocytes # (Manual) Percent Retic PT INR Fibrinogen ABG pH POC ABG pO2 ABG pO2 ABG HCO3 ABG O2 Saturation ABG Base Excess ABG Hemoglobin VBG pO2 Oxyhemoglobin Sodium 136 L Potassium 3.4 L Chloride Carbon Dioxide BUN 37 H Creatinine 4.2 H Glucose 117 H POC Glucose 113 H Lactic Acid Calcium 7.7 L Phosphorus Magnesium Iron TIBC Ferritin Alkaline Phosphatase Lactate Dehydrogenase Troponin T C-Reactive Protein Total Protein Albumin LDL Cholesterol Direct Crossmatch 12/30/21 07:24 WBC RBC Hgb Hct MCH RDW Plt Count Lymph % (Auto) [place] % (Auto) Lymph # (Auto) [place] # (Auto) Seg Neutrophils % Seg Neuts % (Manual) Lymphocytes % (Manual) Monocytes % (Manual) Nucleated RBC % Seg Neutrophils # Seg Neutrophils # Man Lymphocytes # (Manual) Percent Retic PT INR Fibrinogen ABG pH POC ABG pO2 ABG pO2 ABG HCO3 ABG O2 Saturation ABG Base Excess ABG Hemoglobin VBG pO2 Oxyhemoglobin Sodium Potassium Chloride Carbon Dioxide BUN Creatinine Glucose POC Glucose 125 H Lactic Acid Calcium Phosphorus Magnesium Iron TIBC Ferritin Alkaline Phosphatase Lactate Dehydrogenase Troponin T C-Reactive Protein Total Protein Albumin LDL Cholesterol Direct Crossmatch Allied health notes reviewed: nursing
--- NOTE | 2021-12-30 13:11 | Progress Note ---
Assessment and Plan Cultures: Blood culture: group B strep Catheter tip culture: Group B strep Blood culture 12/16/2021: No growth C. difficile PCR negative. A/P: 66-year-old female past medical history hypertension, ESRD on HD now with: #Septic shock secondary to Group B strep bacteremia: Source possibly from dialysis cath. Catheter since been removed. TTE without evidence of vegetations. Repeat blood cultures negative. #Diffuse severe colitis: Noted on colonoscopy. Per GI, endoscopic appearance not classic for IBD. Ischemic v/s inflammatory. C. difficile PCR negative. #Thrombocytopenia: improved. #ESRD on HD: Renally dose antibiotics. #Acute GI bleed, anemia Recs: -completed abx -Wound care Will sign off. Please call with questions. Garcia Bowens MD, FACP, [facility] ([facility] O: [phone] F: [phone] C: [phone] Subjective Date of service: 12/30/21 Principal diagnosis: Septic shock ; Bacteremia; ESRD on dialysis; AMS; NSTEMI; HTN; DM II Interval history: No fever. Seen at dialysis. Had AV fistula angioplasty yesterday. Getting HD through [facility]. Has no complaints. Objective - Exam Narrative Exam: Physical Exam: Constitutional: Alert, cooperative. No acute distress Head, Ears, Nose: Normocephalic, atraumatic. External ears, nose normal Eyes: Conjunctivae/corneas clear. No icterus. No ptosis. Neck: Supple, no meningeal signs Cardiovascular: S1, S2 + Respiratory: Good air entry, clear to auscultation bilaterally GI: Soft, mild tenderness +; bowel sounds normal. No peritoneal signs Musculoskeletal: RUE dressing + Skin: No rash or abscess Hem/Lymphatic: No palpable cervical or supraclavicular nodes. No lymphangitis Psych: Mood ok. Affect normal Neurological: Awake, alert, oriented. No gross abnormality - Constitutional Vitals: Vital Signs Temp Pulse Resp BP Pulse Ox 98.5 F 77 18 140/77 95 12/30/21 09:40 12/30/21 12:45 12/30/21 10:00 12/30/21 12:45 12/30/21 10:00 Temperature -Last 24 Hours Temperature 98.5 F Temperature 98.3 F Temperature 98.2 F Temperature 98.7 F Temperature 98.0 F Temperature 98.8 F - Labs CBC & Chem 7: 12/30/21 04:56 12/30/21 04:56 Labs: Abnormal lab results 12/29/21 12/29/21 12/30/21 Range/Units 16:42 22:59 04:56 WBC 4.2 L (4.5-11.0) K/mm3 RBC 2.83 L (3.65-5.03) M/mm3 Hgb 7.5 L (10.1-14.3) gm/dl Hct 23.1 L (30.3-42.9) % MCH 27 L (28-32) pg RDW 18.3 H (13.2-15.2) % Sodium (137-145) mmol/L Potassium (3.6-5.0) mmol/L BUN (7-17) mg/dL Creatinine (0.6-1.2) mg/dL Glucose (65-100) mg/dL POC Glucose 107 H 146 H (70-105) mg/dL Calcium (8.4-10.2) mg/dL 12/30/21 12/30/21 12/30/21 Range/Units 04:56 05:35 07:24 WBC (4.5-11.0) K/mm3 RBC (3.65-5.03) M/mm3 Hgb (10.1-14.3) gm/dl Hct (30.3-42.9) % MCH (28-32) pg RDW (13.2-15.2) % Sodium 136 L (137-145) mmol/L Potassium 3.4 L (3.6-5.0) mmol/L BUN 37 H (7-17) mg/dL Creatinine 4.2 H (0.6-1.2) mg/dL Glucose 117 H (65-100) mg/dL POC Glucose 113 H 125 H (70-105) mg/dL Calcium 7.7 L (8.4-10.2) mg/dL
--- NOTE | 2021-12-30 13:17 | Progress Note ---
Assessment and Plan Assessment and plan: This is a 66-year-old female with known past medical history of ESRD on HD, HTN, heart-attack, and GERD initially admitted to the floor s/p fall at home. Patient was transferred to the ICU due to septic shock 09/17 GPC bacteremia requiring vasopressor. Hospital Course to Date: 12/12: No acute events overnight, reports extreme pain in her right leg, denies chest pain or shortness of breath 12/13: No acute events overnight, patient tearful and complaining of right leg pain however she is refusing analgesic medication 12/14: Continues to have right leg pain, does not participate in interview 12/15: Patient transferred to the ICU for hypotension on Levophed drip however she was weaned off by morning and midodrine was increased due to borderline MAP. Blood cultures grew 11/17 gram-positive cocci with suspected right upper chest permacath source. Patient started on vancomycin and infectious disease consulted. Plan for IR consult for permacath removal and assessment of aVF functioning. Possible temporary Vas-Cath placement for hemodialysis. Patient is encephalopathic likely secondary to sepsis. Continue current antibiotics and repeat 2D echo and blood cultures in the a.m. Right upper extremity swelling and pain noted and right upper extremity XR and Doppler ordered. 12/16: Patient noted to have blisters on left arm and RN asked to elevate and place cool compresses to site. AV fistula on left upper extremity access by hemodialysis nurse and hemodialysis ongoing. Vasopressin ordered in efforts to wean Levophed while on hemodialysis. Echocardiogram repeated. Blood cultures grew beta-hemolytic strep group B and antibiotics changed to ceftriaxone. Dobutamine drip discontinued. Remained sedated on fentanyl drip. 12/17: Thrombocytopenia worse today, unable to tolerate being off vasopressin, started on steroids, HIT assay ordered-discontinued. SCDs for now. [facility] will like to give normal saline 100 ml/hr for 2 L. 12/18: Wound care consult placed for right upper extremity, PSV trials today, weaning Levophed, dialysis planned for today. Hematology/oncology consulted yesterday who recommends twice daily Solu-Medrol. No acute events reported overnight. Patient will be started on IV iron 12/19: PSV today, mentation better and intermittently follows commands. Platelets stable. Reglan started for vomiting and will slowly increase TF. KUB with no ac [employer] process. 5/7: PSV today, mentation unchanged, CTH without acute findings, Platelets remains stable with no signs of bleeding, high residuals reported overnight and TF was off from approximately [id number]. TF resumed around 0 at currently at 20/hr. RN to increase as tolerated. [facility] plans extubation Wednesday. HD today. Will keep femoral line for now in setting of low plts 12/21: Patient had moderate BM today with bright red and dark red blood->CBC pending, coags, LDH ordered, GI consulted and Dr. Lambert alerted. PSV again today. Patient is still intermittently following commands. 12/22: Remains on the vent, more somnolent this am. Patient also with persistent bloody stools, H&H remains stable, GI is also following. Will keep patient NPO for now, IV PPI, and serial H&H. Patient is tolerating PSV trial, However, intubation postpone due to increased lethargy and GIB. Awaiting on GI recomme ndations. 12/23: With persistent rectal bleeding, H&H and vital signs remain stable. GI is on the case, plan for possible colonoscopy tomorrow. Keep patient NPO, continue IV PPI and serial H&H. Hypoglycemic overnight, most likely due to NPO status, continue D10W for now. D/W CCM continue PSV trial, possible extubation tomorrow. Continue HD per Nephro 12/24: Post colonoscopy at the bedside this am. Patient stable on thevent but lethargic. GI recommendations appreciated. Will resume TF, continue PPI and trend H&H X1 day. Leukocytosis improved this am, stool studies pending, Continue current IV antibiotics per ID. Plan for possible PSV trial today once more awake, possible extubation if patient tolerate PSV trial. 12/25: s/p extubation now stable on 3L NC. Post colonoscopy, still with blood tinge losse stools, stool studies pending. Continue current IV antiobiotics per ID. S/p 1unit of PRBCs, H&H is stable this am, thrombocytopenia improved. Continue to hold AC, trend CBC, and PPI. Consult placed to general surgery for RUE wound eval and management, wound care consult pending. D/w CCM, patient is stable for transfer to Telemetry. 12/26: Patient remains very lethargic, failed swallow evaluation likely due to profound leathargy, Continue aspiration precautions, Monitor H/H closely, GI input noted, will purse PEG placement if patients mental status does not improve to tolerate oral diet. Continue abx per infectious disease specialist. She still has evidence of dark tarry stool in the FMS. We will monitor leukocytosis for resolution. Wound care input from surgical team appreciated patient will likely undergo debridement Aspiration precaution. Awaiting C. difficile testing also. 12/27: Patient still with diarrhea awaiting awaiting C. difficile cultures. Continue to hold all stool softeners. She is more awake this morning and if she was able to tolerate Robitussin and some COVID last night we will have speech team repeat swallow evaluation. Hemoglobin did drop by 1 g we will continue to monitor considering renal failure would not transfuse at this time unless less than 6. Aggressive PT OT 12/28: Continue supportive care. Awaiting PT OT evaluation. Patient appears more awake today and have asked the nurse to repeat swallow evaluation. Anticipate discharge in a.m. Continue hemodialysis Patient will benefit from wound care further right upper extremity wound on discharge. Surgical input on wound management appreciated. 12/29: Patient showing remarkable clinical improvement after summary the patient is a 66-year-old female with history of end-stage renal disease on HD hypertension IN and GERD who was admitted septic shock and placed on ICU in addition with mechanical ventilation for respiratory failure. During hospitalization it appears that the patient has some reaction to the right upper extremity for which there was extra cessation and wound development which is being managed by the wound care team. Of fecal management system was placed due to recurrent diarrhea C. difficile test was done and negative COVID test was negative. Vancomycin that was started for treatment of possible C. difficile has been discontinued. The patient today is much awake passed swallow evaluation onto the resolve Dobbhoff has been discontinued. PT OT evaluation is ordered for discharge planning. Replace electrolyte. The patient is planned for a fistulogram today due to left arm AV graft with swelling in the hand. Discharge planning will be based on the procedure that at this time. Anticipate discharge in 24 hrs I have called to update family but was only able to leave a message Case management for discharge planning Assessment and Plan #Septic Shock 09/17 #GPC [id number] strep group B #Severe Colitis #Leukocytosisresolvedresolved - Suspected source right upper chest Permacath, removed on 5/2 - Intial Blood cultures + beta-hemolytic strep group B in 4/4 bottles. Repeat blood cultures NGTD x48 hours - Echo with no evidence of vegetation - Severe colitis throughout the entire colon noted from colonoscopy on 12/24 - Stool studies pending -Infectious disease consulted; appreciate recs - Continue current IV Abx, Rocephin, per ID #Heart Failure with Reduced Ejection Fractionresolved #Severe Cardiomyopathy #NSTEMIresolved #Hypertensionstable #History of CAD - Cardiology consulted; appreciate recs - went in septic shock 2/ bacteremia- s/p dobutamine and vaspressors - Echocardiogram (11/23/2021): EF 35-40% - Repeat Echo this admit shows LVEF 30 to 35%, no valvular vegetations - Continue statin, ASA held due to GIB - midodrine adjusted and parameters added #Acute Metabolic Encephalopathyresolved #h/o seizure disorder and 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 -Renally dose medications and avoid nephrotoxic drugs. Renal diet. #Extravasation of RUE #Sacral Wounds - RUE extravasation of RUE- possibly levophed- Antidote not available - RUE doppler negative DVT - WOCN consult pending - General Surgery consulted; appreciate recs - PRN analgesia for pain management #Normocytic Anemia, chronic #Thrombocytopenia-improved #Hyponatremiaresolved #Hypokalemia #Acute GI Bleedresolved - Acute bloody stools since 12/21, probably due to low plt - H&H remains stable, Platelet count is improving - s/p 2units of FFP and 1unit of PRBCs - HIT panel negative - GI on consult, appreciated recommendations - 12/24- s/p Colonoscopy- diffuse severe colitis throughout the entire colon with erythema and edema and nodularity probably due to infectious or ischemic etiology - stool studies ordered to rule out infectious etiologies - Tolerating TF, still with bloody tinge loose stools - Continue to hold AC for now - Hematology consulted; appreciate recs #Type 2 Diabetes Mellitus # Multi-nodular thyroid gland - Episode of hypoglycemia, most likely due to NPO status - Tolerating TF, continue enteral nutrition for now - Speech swallow eval ordered - Multinodular thyroid gland noted on CT head - Possible thyroid US when more stable vs outpatient #Severe protein caloric malnutrition Albumin 1.7 Nutrition consulted; appreciate recs. Continue dietary supplementation. #Advanced care planning -Disease education conducted, care plan discussed, diagnoses discussed, prognos is discussed, and patient acknowledges understanding with care plan -Time: +30 min #Discharge planning - Patient is pending subacute rehab authorization - Case management has been made aware. Disposition Plan: Continue medical management Total Time Spent with Patient (Minutes): 45 minutes History Interval history: No acute events overnight. Hospitalist Physical - Constitutional Vitals: Temp Pulse Resp BP Pulse Ox 98.5 F 77 18 140/77 95 12/30/21 09:40 12/30/21 12:45 12/30/21 10:00 12/30/21 12:45 12/30/21 10:00 General appearance: Present: no acute distress, well-nourished - EENT Eyes: Present: PERRL, EOM intact ENT: hearing intact, clear oral mucosa, dentition normal - Neck Neck: Present: supple, normal ROM - Respiratory Respiratory effort: normal Respiratory: bilateral: diminished (2 L nasal cannula) - Cardiovascular Rhythm: regular Heart Sounds: Present: S1 & S2 - Extremities Extremities: no ischemia, pulses intact, pulses symmetrical, normal temperature, normal color, abnormal (Sacral decubitus ulcer) Peripheral Pulses: within normal limits - Abdominal General gastrointestinal: soft, non-tender, non-distended, normal bowel sounds - Integumentary Integumentary: Present: clear, warm, dry - Psychiatric Psychiatric: appropriate mood/affect, cooperative - Neurologic Neurologic: CNII-XII intact - Allied Health Allied health notes reviewed: nursing HEART Score - HEART Score Troponin: Troponin T 0.175 ng/mL (0.00-0.029) H* 12/12/21 04:43 Results - Labs CBC & Chem 7: 12/30/21 04:56 12/31/21 Unknown Labs: Laboratory Last Values WBC 4.2 K/mm3 (4.5-11.0) L 12/30/21 04:56 RBC 2.83 M/mm3 (3.65-5.03) L 12/30/21 04:56 Hgb 7.5 gm/dl (10.1-14.3) L 12/30/21 04:56 Hct 23.1 % (30.3-42.9) L 12/30/21 04:56 MCV 82 fl (79-97) 12/30/21 04:56 MCH 27 pg (28-32) L 12/30/21 04:56 MCHC 33 % (30-34) 12/30/21 04:56 RDW 18.3 % (13.2-15.2) H 12/30/21 04:56 Plt Count 142 K/mm3 (140-440) 12/30/21 04:56 Lymph % (Auto) 8.0 % (13.4-35.0) L 12/26/21 Unknown [place] % (Auto) 8.9 % (0.0-7.3) H 12/26/21 Unknown Eos % (Auto) 0.4 % (0.0-4.3) 12/26/21 Unknown Baso % (Auto) 1.0 % (0.0-1.8) 12/26/21 Unknown Lymph # (Auto) 1.1 K/mm3 (1.2-5.4) L 12/26/21 Unknown [place] # (Auto) 1.3 K/mm3 (0.0-0.8) H 12/26/21 Unknown Eos # (Auto) 0.1 K/mm3 (0.0-0.4) 12/26/21 Unknown Baso # (Auto) 0.1 K/mm3 (0.0-0.1) 12/26/21 Unknown Add Manual Diff Complete 12/18/21 05:00 Total Counted 100 12/19/21 05:00 Seg Neutrophils % 81.7 % (40.0-70.0) H 12/26/21 Unknown Seg Neuts % (Manual) 93.0 % (40.0-70.0) H 12/19/21 05:00 Band Neutrophils % 2.0 % 12/19/21 05:00 Lymphocytes % (Manual) 2.0 % (13.4-35.0) L 12/19/21 05:00 Reactive Lymphs % (Man) 0 % 12/19/21 05:00 Monocytes % (Manual) 1.0 % (0.0-7.3) 12/19/21 05:00 Eosinophils % (Manual) 0 % (0.0-4.3) 12/19/21 05:00 Basophils % (Manual) 0 % (0.0-1.8) 12/19/21 05:00 Metamyelocytes % 2.0 % 12/19/21 05:00 Myelocytes % 0 % 12/19/21 05:00 Promyelocytes % 0 % 12/19/21 05:00 Blast Cells % 0 % 12/19/21 05:00 Nucleated RBC % Not Reportable 12/19/21 05:00 Seg Neutrophils # 11.6 K/mm3 (1.8-7.7) H 12/26/21 Unknown Seg Neutrophils # Man 17.6 K/mm3 (1.8-7.7) H 12/19/21 05:00 Band Neutrophils # 0.4 K/mm3 12/19/21 05:00 Lymphocytes # (Manual) 0.4 K/mm3 (1.2-5.4) L 12/19/21 05:00 Abs React Lymphs (Man) 0.0 K/mm3 12/19/21 05:00 Monocytes # (Manual) 0.2 K/mm3 (0.0-0.8) 12/19/21 05:00 Eosinophils # (Manual) 0.0 K/mm3 (0.0-0.4) 12/19/21 05:00 Basophils # (Manual) 0.0 K/mm3 (0.0-0.1) 12/19/21 05:00 Metamyelocytes # 0.4 K/mm3 12/19/21 05:00 Myelocytes # 0.0 K/mm3 12/19/21 05:00 Promyelocytes # 0.0 K/mm3 12/19/21 05:00 Blast Cells # 0.0 K/mm3 12/19/21 05:00 WBC Morphology Not Reportable 12/19/21 05:00 Hypersegmented Neuts Not Reportable 12/19/21 05:00 Hyposegmented Neuts 1+ 12/19/21 05:00 Hypogranular Neuts Not Reportable 12/19/21 05:00 Smudge Cells Not Reportable 12/19/21 05:00 Toxic Granulation Not Reportable 12/19/21 05:00 Toxic Vacuolation Not Reportable 12/19/21 05:00 Dohle Bodies Not Reportable 12/19/21 05:00 Pelger-Huet Anomaly Not Reportable 12/19/21 05:00 Charles Rods Not Reportable 12/19/21 05:00 Platelet Estimate Consistent w auto 12/19/21 05:00 Clumped Platelets Not Reportable 12/19/21 05:00 Plt Clumps, EDTA Not Reportable 12/19/21 05:00 Large Platelets Not Reportable 12/19/21 05:00 Giant Platelets Not Reportable 12/19/21 05:00 Platelet Satelliting Not Reportable 12/19/21 05:00 Plt Morphology Comment Not Reportable 12/19/21 05:00 RBC Morphology Not Reportable 12/19/21 05:00 Dimorphic RBCs Not Reportable 12/19/21 05:00 Polychromasia Not Reportable 12/19/21 05:00 Hypochromasia 1+ 12/19/21 05:00 Poikilocytosis Few 12/19/21 05:00 Anisocytosis Few 12/19/21 05:00 Microcytosis Not Reportable 12/19/21 05:00 Macrocytosis Not Reportable 12/19/21 05:00 Spherocytes Not Reportable 12/19/21 05:00 Pappenheimer Bodies Not Reportable 12/19/21 05:00 Sickle Cells Not Reportable 12/19/21 05:00 Target Cells Rare 12/19/21 05:00 Tear Drop Cells Not Reportable 12/19/21 05:00 Ovalocytes Rare 12/19/21 05:00 Helmet Cells Not Reportable 12/19/21 05:00 Murphy-Oelrichs Bodies Not Reportable 12/19/21 05:00 [place] Rings Not Reportable 12/19/21 05:00 Olivia Cells Not Reportable 12/19/21 05:00 Bite Cells Not Reportable 12/19/21 05:00 Crenated Cell Not Reportable 12/19/21 05:00 Elliptocytes Not Reportable 12/19/21 05:00 Acanthocytes (Spur) Not Reportable 12/19/21 05:00 Rouleaux Rare 12/19/21 05:00 Hemoglobin C Crystals Not Reportable 12/19/21 05:00 Schistocytes Rare 12/19/21 05:00 Malaria parasites Not Reportable 12/19/21 05:00 Percent Retic 0.37 % (0.78-2.58) L 12/18/21 05:00 Bryson Bodies Not Reportable 12/19/21 05:00 Haptoglobin 193 mg/dL (43-212) 12/18/21 05:00 Hem Pathologist Commnt Not Reportable 12/19/21 05:00 PT 17.7 Sec. (12.2-14.9) H 12/22/21 14:05 INR 1.30 (0.87-1.13) H 12/22/21 14:05 Fibrinogen 351 mg/dl (211-480) 12/21/21 08:35 Heparin Anti-Xa, Unfract Negative (Negative) 12/17/21 09:30 ABG pH 7.450 pH Units (7.350-7.450) 12/24/21 Unknown POC ABG pCO2 36.0 mmHg (32.0-48.0) 12/21/21 10:20 ABG pCO2 39.1 mm Hg 12/24/21 Unknown POC ABG pO2 126.1 mmHg (83-108) H 12/21/21 10:20 ABG pO2 109.1 mm Hg (80.0-90.0) H 12/24/21 Unknown POC ABG HCO3 24.3 12/21/21 10:20 ABG HCO3 26.6 mmol/L (20.0-26.0) H 12/24/21 Unknown ABG O2 Saturation 98.1 % (95.0-99.0) 12/24/21 Unknown ABG O2 Content 9.4 (0.0-44) 12/24/21 Unknown POC ABG Base Excess 0.6 12/21/21 10:20 ABG Base Excess 2.4 mmol/L (-2.0-3.0) 12/24/21 Unknown ABG Hemoglobin 6.8 gm/dl (12.0-16.0) L 12/24/21 Unknown ABG Oxyhemoglobin 97.4 (94-98) 12/21/21 10:20 ABG Carboxyhemoglobin 1.8 % (0.0-5.0) 12/24/21 Unknown ABG Methemoglobin 0.5 % (0.0-1.5) 12/24/21 Unknown ABG Sodium Not Reportable 12/21/21 10:20 ABG Potassium Not Reportable 12/21/21 10:20 ABG Chloride Not Reportable 12/21/21 10:20 ABG Glucose Not Reportable 12/21/21 10:20 VBG pO2 > 258.0 (25.0-47.0) H 12/15/21 19:50 Oxyhemoglobin 95.8 % (95.0-99.0) 12/24/21 Unknown Carboxyhemoglobin 0.9 (0.5-1.5) 12/21/21 10:20 FiO2 30 % 12/24/21 Unknown FiO2 % 30.0 12/21/21 10:20 Sodium 136 mmol/L (137-145) L 12/30/21 04:56 Potassium 3.4 mmol/L (3.6-5.0) L 12/30/21 04:56 Chloride 98.2 mmol/L (98-107) 12/30/21 04:56 Carbon Dioxide 26 mmol/L (22-30) 12/30/21 04:56 Anion Gap 15 mmol/L 12/30/21 04:56 BUN 37 mg/dL (7-17) H 12/30/21 04:56 Creatinine 4.2 mg/dL (0.6-1.2) H 12/30/21 04:56 Estimated GFR 13 ml/min 12/30/21 04:56 BUN/Creatinine Ratio 9 % 12/30/21 04:56 Glucose 117 mg/dL (65-100) H 12/30/21 04:56 POC Glucose 125 mg/dL (70-105) H 12/30/21 07:24 Lactic Acid 1.90 mmol/L (0.7-2.0) 12/16/21 05:00 Calcium 7.7 mg/dL (8.4-10.2) L 12/30/21 04:56 Phosphorus 4.90 mg/dL (2.5-4.5) H 12/23/21 04:39 Magnesium 1.90 mg/dL (1.7-2.3) 12/23/21 04:39 Iron 13 ug/dL (37-170) L 12/18/21 05:00 TIBC 109 mcg/dL (250-450) L 12/18/21 05:00 Ferritin 383.4 ng/mL (10.0-200.0) H 12/18/21 05:00 Total Bilirubin 0.50 mg/dL (0.1-1.2) 12/27/21 04:00 AST 23 units/L (5-40) 12/27/21 04:00 ALT 10 units/L (7-56) 12/27/21 04:00 Alkaline Phosphatase 222 units/L (35-129) H 12/27/21 04:00 Ammonia 26.0 umol/L (25-60) 12/26/21 Unknown Lactate Dehydrogenase 249 units/L (91-180) H 12/21/21 08:35 Troponin T 0.175 ng/mL (0.00-0.029) H* 12/12/21 04:43 C-Reactive Protein 38.50 mg/dL (0.00-1.30) H 12/15/21 14:40 Total Protein 5.9 g/dL (6.3-8.2) L 12/27/21 04:00 Albumin 1.7 g/dL (3.9-5) L 12/27/21 04:00 Albumin/Globulin Ratio 0.4 % 12/27/21 04:00 Triglycerides 92 mg/dL (2-149) 12/11/21 15:40 Cholesterol 72 mg/dL (50-199) 12/11/21 15:40 LDL Cholesterol Direct 16 mg/dL (50-130) L 12/11/21 15:40 HDL Cholesterol 41 mg/dL (40-59) 12/11/21 15:40 Cholesterol/HDL Ratio 1.75 % 12/11/21 15:40 Serotonin Release Assay See scanned result 12/17/21 09:30 Procalcitonin 46.16 ng/mL (<0.15) 12/15/21 04:11 Arterial Blood Glucose Not Reportable 12/21/21 10:20 Random Vancomycin 15.6 ug/mL (0-40.0) 12/16/21 05:00 Heparin-induced Plt Ab Negative (Negative) 12/17/21 09:30 UF Heparin High Dose 1 % Release 12/17/21 09:30 JAMILAH UFH Low Dose 0.1 0 % Release 12/17/21 09:30 JAMILAH UFH Low Dose 0.5 0 % Release 12/17/21 09:30 C. difficile Tox (PCR) Negative (Negative) 12/27/21 12:30 Hepatitis A IgM Ab Non-reactive (NonReactive) 12/27/21 Unknown Hep Bs Antigen Non-reactive (Negative) 12/27/21 Unknown Hep B Core IgM Ab Non-reactive (NonReactive) 12/27/21 Unknown Hepatitis C Antibody Non-reactive (NonReactive) 12/27/21 Unknown Blood Type O POSITIVE 12/23/21 16:20 Antibody Screen Negative 12/23/21 16:20 Crossmatch See Detail 12/23/21 16:20 Microbiology: Microbiology 12/24/21 09:15 Stool Stool Culture - Preliminary Johnson/IV: Voiding Method Incontinent Active Medications - Current Medications Current Medications: Generic Name Dose Route Start Last Admin Trade Name Freq PRN Reason Stop Dose Admin Acetaminophen 650 mg 12/13/21 23:00 12/13/21 23:18 Acetaminophen 650 Mg Rect Supp AL 650 mg Q4H PRN Administration Pain, Mild (1-3) Acetaminophen 650 mg 12/24/21 14:02 12/30/21 04:47 Acetaminophen 325 Mg/10.15 Ml Oral Liqd Unit Dose FEEDTUBE 650 mg Q6H PRN Administration Pain, Mild (1-3) Albuterol 2.5 mg 12/11/21 22:14 Albuterol 2.5 Mg/3 Ml Nebu IH Q6HR PRN Wheezing Albuterol/Ipratropium 1 ampul 12/14/21 08:00 12/29/21 19:44 Ipratropium/Albuterol Sulfate 3 Ml Ampul.Neb IH 1 ampul TIDRT KRISTA Administration Lipase/Protease/Amylase 1 each 12/16/21 11:15 Lipase 10,500/Protease 25,000/Amylase 43,750 (Units) Dr Blanco FEEDTUBE PRN PRN For Clogged Feeding Tube Atorvastatin Calcium 80 mg 12/15/21 22:00 12/29/21 21:40 Atorvastatin 40 Mg Tab FEEDTUBE 80 mg QHS KRISTA Administration Budesonide 0.5 mg 12/13/21 08:00 12/29/21 19:43 Budesonide 0.5 Mg/2 Ml Nebu IH 0.5 mg Q12HRT KRISTA Administration Carvedilol 6.25 mg 12/26/21 10:00 12/30/21 11:25 Carvedilol 6.25 Mg Tab PO Not Given BID KRISTA Dextrose 50 ml 12/11/21 22:23 12/26/21 18:12 Dextrose 50% In Water (25gm) 50 Ml Syringe IV 20 ml Q30MIN PRN Administration Hypoglycemia Protocol Guaifenesin 10 ml 12/27/21 05:30 12/27/21 05:54 Guaifenesin Dm 200/20 Mg Oral Liqd 10 Ml PO 10 ml Q4H PRN Administration Cough Haloperidol Lactate 2.5 mg 12/25/21 11:37 12/28/21 01:35 Haloperidol Lactate 5 Mg/1 Ml Inj IV 2.5 mg Q6H PRN Administration Agitation Hydrophilic Ointment 1 applic 12/16/21 14:30 Lip Therapy Vaseline TP Q2HR PRN Dry Lips Sodium Chloride 100 mls @ 999 mls/hr 12/12/21 12:00 Nacl 0.9% IV ABEL PRN Hypotension Insulin Human Lispro 0 unit 12/15/21 12:00 12/30/21 12:28 Insulin Lispro 100 Unit/Ml SUB-Q Not Given Q6HR KRISTA Protocol Isosorbide Dinitrate/Hydralazine 1 each 12/26/21 10:00 12/30/21 06:08 Isosorb Dinit/Hydralazine 20-37.5mg Tab PO 1 each Q8HR KRISTA Administration Lansoprazole 30 mg 12/25/21 10:00 12/30/21 09:00 Lansoprazole 30 Mg Solutab FEEDTUBE 30 mg QDAY KRISTA Administration Levetiracetam 500 mg 12/16/21 18:00 12/27/21 19:00 Levetiracetam 500 Mg/5 Ml Oral Liqd FEEDTUBE 500 mg TuThSa KRISTA Administration Loperamide HCl 2 mg 12/29/21 10:00 12/30/21 09:14 Loperamide 2 Mg Cap PO 2 mg Q2H PRN Administration Diarrhea Midodrine 5 mg 12/24/21 12:00 12/30/21 08:59 Midodrine 5 Mg Tab FEEDTUBE 5 mg TID@0800,1200,1600 KRISTA Administration Multi-Ingred Cream/Lotion/Oil/Oint 1 applic 12/16/21 14:10 Mineral Oil/Petrolatum, White Ophth Oint 3.5 Gm OU Q4HR PRN Dry Eye(s) Nitroglycerin 0.4 mg 12/11/21 22:11 Nitroglycerin 0.4 Mg Tab Subl SL Q5M PRN Chest Pain Simple Syrup 15 ml 12/16/21 11:15 Simple Syrup 15 Ml FEEDTUBE PRN PRN Hypoglycemia Simple Syrup 30 ml 12/16/21 11:15 12/26/21 17:10 Simple Syrup 15 Ml FEEDTUBE 30 ml PRN PRN Administration Hypoglycemia Sodium Bicarbonate 325 mg 12/16/21 11:15 Sodium Bicarbonate 325 Mg Tab FEEDTUBE PRN PRN For Clogged Feeding Tube Sodium Chloride 10 ml 12/11/21 22:11 12/27/21 22:07 Sodium Chloride 0.9% 10 Ml Flush Syringe IV 10 ml PRN PRN Administration LINE FLUSH Nutrition/Malnutrition Assess - Dietary Evaluation Nutrition/Malnutrition Findings: Nutrition Notes Start: 12/12/21 11:57 Freq: Status: Active Protocol: Document 12/24/21 17:36 EVERARDO (Rec: 12/24/21 17:55 EVERARDO [email or web address]) Nutrition Notes Initial or Follow up Brief Note Current Diagnosis CKD (stage V CKD),Coronary Artery Disease,Sepsis, Hypertension,Heart Failure, Respiratory Failure Other Pertinent Diagnosis Colitis, Bacteremia, ESRD+HD, Septic Shock, Thrombocytopenia , Anemia,... Current Diet TF-Nepro w/CARBSTEADY @ 30 ml/ hr (from L 12/24). Height 4 ft 11 in Weight 61.9 kg [place] Body Weight (kg) 43.18 BMI 27.6 Weight change and time frame No body weight change in 2 days reported. Weight Status Overweight Subjective/Other Information RD consult for TF continuation . TF resumed on L 12/24. Pt continues on Mechanical ventilation, O2 saturation @ 98%, according to MV notes. Percent of energy/protein needs met: Prescribed TF-Nepro w/ CARBSTEADY @ 30 ml/hr provides for energy/protein needs (1, 296 Kcal/58 g) during LOS, 103 % Kcal; 82% AA. #1 Nutrition Diagnosis Inadequate oral intake Diagnosis Progress(for reassessment Continues documentation) Is patient on ventilator? Yes Is Patient Ambulatory and/or Out of Bed No REE-([facility]. Jeor-confined to bed) 1294.956 Calculation Used for Recommendations Tyler Merlene Additional Notes Protein: >1.2 g/Kg ABW; >74 g/ day. Fluids: 1-1.5 L/day, or as per MD. Nutrition Intervention Nutrition Support: Continue TF-Nepro w/CARBSTEADY @ 30 ml/hr. Flush: 130 ml water Q 4 hr, or as per MD. Kcal 1,269 Protein (gm) 58 Carbohydrates (gm) 116 Fat (gm) 69 Fluid (mL) 523 Fiber (gm) 9 % RDI: 103% Kcal; 82% AA. Goal #1 Provide at least 75% of energy /protein needs through Enteral Feeding during LOS. Goal #2 Maintain body weight within +/ -3% of admission body weight during LOS. Follow-Up By: 12/31/21 Additional Comments Continue monitoring, Ventilation status, renal function, GI Bleed, TF tolerance and BM.
[2021-12-30] MEDS: IPRATROPIUM/ALBUTEROL SULFATE 3 ML AMPUL.NEB IH SCH ×2 (15:11→15:12)
[2021-12-30] MEDS: BUDESONIDE 0.5 MG/2 ML NEBU IH SCH (15:12)
[2021-12-30] MEDS: levETIRAcetam 500 MG/5 ML ORAL LIQD FEEDTUBE SCH (18:19)
[2021-12-31] MEDS: INSULIN LISPRO 100 UNIT/ML SUB-Q SCH ×4 (00:30→19:41)
[2021-12-31 06:13] LABS: Calcium 8.4 mg/dL (8.4-10.2)
[2021-12-31] MEDS: ISOSORB DINIT/HYDRALAZINE 20-37.5MG TAB PO SCH ×3 (06:13→22:34)
[2021-12-31] MEDS: LANSOPRAZOLE 30 MG SOLUTAB FEEDTUBE SCH (09:45)
[2021-12-31] MEDS: carvediloL 6.25 MG TAB PO SCH ×2 (09:46→22:34)
--- NOTE | 2021-12-31 09:47 | Progress Note ---
Subjective Date of service: 12/31/21 Principal diagnosis: Septic shock ; Bacteremia; ESRD on dialysis; AMS; NSTEMI; HTN; DM II Interval history: Assessment and plan #End-stage kidney disease: Patient will continue to see hemodialysis treatment 3 times a week will continue on Wednesday and Wednesday Monitor dialysis related labs/monitor for any access issues Fluid restriction 1200 cc/day high-protein diet #Access: Needs to be seen and followed by vascular surgery Permacath was removed due to infection fistula is working well but patient does have swelling #Septic shock echocardiogram did not show any evidence of vegetations, ID following Permacath was removed, admitted with septic shock with gram-positive bacteremia was admitted in ICU with encephalopathy non-ST elevation [place] atrial fibrillation with rapid ventricular response, s/p fall at home #Hypertension and volume: To monitor and follow #Anemia in end-stage kidney disease: To monitor and follow erythropoietin periodically goal hemoglobin between 05-26-08/17 Thrombocytopenia: HIT negative We will check dialysis related labs periodically, We'll continue to follow and make recommendation for renal standpoint Subjective Patient was seen today for follow-up of multiple renal related issueS She is resting comfortably in bed no acute distress Events of 24 hours vitals labs intake output medications were reviewed Physical examination: Vitals: Reviewed HEENT: No pallor or icterus oral mucosa moist Neck: Supple no JVD no thyromegaly Chest: Bilateral clear to auscultation anteriorly Heart: Regular rate and rhythm S1-S2 heard no S3-S4 Abdomen: Soft nontender no voluntary guarding rigidity rebound Extremity: Dry skin less than 1+ peripheral edema Psychiatric: No evidence of agitation and aggression noted Dermatology: No petechial rashes Labs and x-rays: availabe data reviewed Objective - Vital Signs Vital signs: Vital Signs - 12hr 12/30/21 12/30/21 12/31/21 22:00 23:25 03:02 Temperature 98.6 F 97.9 F Pulse Rate 83 77 71 Respiratory 18 18 18 Rate Blood Pressure 95/61 113/61 Blood Pressure [Left] O2 Sat by Pulse 97 94 100 Oximetry 12/31/21 12/31/21 06:13 08:13 Temperature 97.9 F Pulse Rate 71 71 Respiratory 18 Rate Blood Pressure 113/61 Blood Pressure 149/81 [Left] O2 Sat by Pulse 100 Oximetry - Lab 12/30/21 04:56 12/31/21 Unknown Most recent lab results ABG pH 7.450 pH Units (7.350-7.450) 12/24/21 Unknown ABG pCO2 39.1 mm Hg 12/24/21 Unknown ABG pO2 109.1 mm Hg (80.0-90.0) H 12/24/21 Unknown ABG HCO3 26.6 mmol/L (20.0-26.0) H 12/24/21 Unknown ABG O2 Saturation 98.1 % (95.0-99.0) 12/24/21 Unknown Calcium 8.4 mg/dL (8.4-10.2) 12/31/21 Unknown Phosphorus 4.90 mg/dL (2.5-4.5) H 12/23/21 04:39 Magnesium 1.90 mg/dL (1.7-2.3) 12/23/21 04:39 Medications & Allergies - Medications Allergies/Adverse Reactions: Allergies No Known Allergies Allergy (Verified 12/11/21 22:19) Home Medications: Home Medications Medication Instructions Recorded Confirmed Last Taken Type Albuterol Sulfate [Proair 2 puff IH Q6HR PRN 11/23/21 12/14/21 Unknown History Digihaler] Calcium Acetate 2 tab PO TID 11/23/21 12/14/21 Unknown History Fluticasone/Umeclidin/Vilanter 1 each IH DAILY 11/23/21 12/14/21 Unknown History [Trelegy Ellipta 100-62.5-25] Furosemide [Lasix TAB] 40 mg PO QDAY 11/23/21 12/14/21 Unknown History Insulin Aspart (Nf) [NovoLOG 55 unit SQ TID 11/23/21 12/14/21 Unknown History Flexpen] Insulin Glargine [Lantus VIAL] 25 units SQ QHS 11/23/21 12/14/21 Unknown History Omeprazole 20 mg PO DAILY 11/23/21 12/14/21 Unknown History Spironolactone [Aldactone] 100 mg PO QDAY 11/23/21 12/14/21 Unknown History lisinopriL [Lisinopril] 20 mg PO BID 11/23/21 12/14/21 12/06/21 History 500 MG Docusate Sodium [Colace CAP] 100 mg PO BID PRN #60 capsule 11/24/21 12/14/21 Unknown Rx Aspirin EC [Halfprin EC] 81 mg PO DAILY 90 Days #90 tablet 11/26/21 12/14/21 Unknown Rx Aspirin [Adult Aspirin] 81 mg PO DAILY 90 Days #90 tab 11/26/21 12/14/21 Unknown Rx ISOSORBIDE MONOnitrate [Imdur ER] 60 mg PO QDAY 90 Days #90 tab 11/26/21 12/14/21 Unknown Rx Sevelamer Carbonate [Renvela] 800 mg PO TIDWM 90 Days #270 tab 11/26/21 12/14/21 Unknown Rx amLODIPine 10 mg PO DAILY 90 Days #90 tab 11/26/21 12/14/21 Unknown Rx carvediloL [Coreg] 25 mg PO BID 90 Days #180 tab 11/26/21 12/14/21 Unknown Rx Atorvastatin Calcium [Lipitor] 80 mg PO QHS 90 Days #90 tab 11/27/21 12/14/21 Unknown Rx levETIRAcetam [Keppra TAB] 500 mg PO 3XW 12/14/21 12/14/21 12/06/21 History 500 MG Active Medications: Generic Name Dose Route Start Last Admin Trade Name Freq PRN Reason Stop Dose Admin Acetaminophen 650 mg 12/13/21 23:00 12/13/21 23:18 Acetaminophen 650 Mg Rect Supp [place] 650 mg Q4H PRN Administration Pain, Mild (1-3) Acetaminophen 650 mg 12/24/21 14:02 12/30/21 20:03 Acetaminophen 325 Mg/10.15 Ml Oral Liqd Unit Dose FEEDTUBE 650 mg Q6H PRN Administration Pain, Mild (1-3) Albuterol 2.5 mg 12/11/21 22:14 Albuterol 2.5 Mg/3 Ml Nebu IH Q6HR PRN Wheezing Albuterol/Ipratropium 1 ampul 12/14/21 08:00 12/30/21 15:12 Ipratropium/Albuterol Sulfate 3 Ml Ampul.Neb IH Not Given TIDRT KRISTA Lipase/Protease/Amylase 1 each 12/16/21 11:15 Lipase 10,500/Protease 25,000/Amylase 43,750 (Units) Dr Blanco FEEDTUBE PRN PRN For Clogged Feeding Tube Atorvastatin Calcium 80 mg 12/15/21 22:00 12/30/21 21:40 Atorvastatin 40 Mg Tab FEEDTUBE 80 mg QHS KRISTA Administration Budesonide 0.5 mg 12/13/21 08:00 12/30/21 15:12 Budesonide 0.5 Mg/2 Ml Nebu IH Not Given Q12HRT KRISTA Carvedilol 6.25 mg 12/26/21 10:00 12/30/21 21:40 Carvedilol 6.25 Mg Tab PO 6.25 mg BID KRISTA Administration Dextrose 50 ml 12/11/21 22:23 12/26/21 18:12 Dextrose 50% In Water (25gm) 50 Ml Syringe IV 20 ml Q30MIN PRN Administration Hypoglycemia Protocol Guaifenesin 10 ml 12/27/21 05:30 12/27/21 05:54 Guaifenesin Dm 200/20 Mg Oral Liqd 10 Ml PO 10 ml Q4H PRN Administration Cough Haloperidol Lactate 2.5 mg 12/25/21 11:37 12/28/21 01:35 Haloperidol Lactate 5 Mg/1 Ml Inj IV 2.5 mg Q6H PRN Administration Agitation Hydrophilic Ointment 1 applic 12/16/21 14:30 Lip Therapy Vaseline TP Q2HR PRN Dry Lips Sodium Chloride 100 mls @ 999 mls/hr 12/12/21 12:00 Nacl 0.9% IV ABEL PRN Hypotension Insulin Human Lispro 0 unit 12/15/21 12:00 12/31/21 06:49 Insulin Lispro 100 Unit/Ml SUB-Q Not Given Q6HR [facility] Protocol Isosorbide Dinitrate/Hydralazine 1 each 12/26/21 10:00 12/31/21 06:13 Isosorb Dinit/Hydralazine 20-37.5mg Tab PO Not Given Q8HR KRISTA Lansoprazole 30 mg 12/25/21 10:00 12/30/21 09:00 Lansoprazole 30 Mg Solutab FEEDTUBE 30 mg QDAY KRISTA Administration Levetiracetam 500 mg 12/16/21 18:00 12/30/21 18:19 Levetiracetam 500 Mg/5 Ml Oral Liqd FEEDTUBE 500 mg TuThSa KRISTA Administration Loperamide HCl 2 mg 12/29/21 10:00 12/30/21 09:14 Loperamide 2 Mg Cap PO 2 mg Q2H PRN Administration Diarrhea Midodrine 5 mg 12/24/21 12:00 12/30/21 15:10 Midodrine 5 Mg Tab FEEDTUBE Not Given TID@0800,1200,1600 KRISTA Multi-Ingred Cream/Lotion/Oil/Oint 1 applic 12/16/21 14:10 Mineral Oil/Petrolatum, White Ophth Oint 3.5 Gm OU Q4HR PRN Dry Eye(s) Nitroglycerin 0.4 mg 12/11/21 22:11 Nitroglycerin 0.4 Mg Tab Subl SL Q5M PRN Chest Pain Simple Syrup 15 ml 12/16/21 11:15 Simple Syrup 15 Ml FEEDTUBE PRN PRN Hypoglycemia Simple Syrup 30 ml 12/16/21 11:15 12/26/21 17:10 Simple Syrup 15 Ml FEEDTUBE 30 ml PRN PRN Administration Hypoglycemia Sodium Bicarbonate 325 mg 12/16/21 11:15 Sodium Bicarbonate 325 Mg Tab FEEDTUBE PRN PRN For Clogged Feeding Tube Sodium Chloride 10 ml 12/11/21 22:11 12/30/21 21:40 Sodium Chloride 0.9% 10 Ml Flush Syringe IV 10 ml PRN PRN Administration LINE FLUSH
[2021-12-31] MEDS: MIDODRINE 5 MG TAB FEEDTUBE SCH ×4 (09:49→19:00)
--- NOTE | 2021-12-31 10:22 | Progress Note ---
Assessment and Plan - Patient Problems (1) Syncope Current Visit: Yes Status: Acute Plan to address problem: Patient with end-stage renal disease on hemodialysis, admitted with transient dizziness and sepsis, suspected source indwelling Vas-Cath. She is status post respiratory failure, has been extubated successfully. History of a moderate severity cardiomyopathy, ejection fraction 35 to 40%. We will continue conservative cardiac management with medical therapy as tolerated. Subjective Date of service: 12/31/21 Principal diagnosis: Septic shock ; Bacteremia; ESRD on dialysis; AMS; NSTEMI; HTN; DM II Interval history: No new cardiac complaints, no cardiac events reported. Objective Vital Signs Temp Pulse Resp BP BP Pulse Ox Pulse Ox 12/31/21 09:46 69 12/31/21 08:13 97.9 F 71 18 149/81 100 12/31/21 06:13 71 113/61 12/31/21 03:02 97.9 F 71 18 113/61 100 12/30/21 23:25 98.6 F 77 18 95/61 94 12/30/21 22:00 83 18 97 12/30/21 21:40 82 94/56 12/30/21 21:37 82 94/56 12/30/21 20:33 99.7 F H 82 18 94/56 100 12/30/21 15:12 100 12/30/21 14:59 98.6 F 20 146/80 12/30/21 14:00 98.3 F 78 17 151/85 100 12/30/21 13:30 74 142/80 12/30/21 13:15 76 136/73 12/30/21 13:00 73 141/85 12/30/21 12:45 77 140/77 12/30/21 12:30 76 155/82 12/30/21 12:15 76 153/84 12/30/21 12:00 72 160/94 12/30/21 11:45 70 163/90 12/30/21 11:30 71 161/84 12/30/21 11:15 71 163/90 12/30/21 11:00 70 158/88 12/30/21 10:45 66 157/85 12/30/21 10:30 74 142/85 - Physical Examination General: No Apparent Distress HEENT: Positive: PERRL Neck: Positive: neck supple Cardiac: Positive: Reg Rate and Rhythm Lungs: Positive: Decreased Breath Sounds Neuro: Positive: Weakness (Generalized lethargy) Abdomen: Positive: Soft Skin: Positive: Clear Extremities: Absent: edema - Labs and Meds Comprehensive Metabolic Panel 12/31/21 Range/Units Unknown Sodium 139 (137-145) mmol/L Potassium 3.7 (3.6-5.0) mmol/L Chloride 102.9 (98-107) mmol/L Carbon Dioxide 31 H (22-30) mmol/L BUN 16 (7-17) mg/dL Creatinine 2.7 H (0.6-1.2) mg/dL Glucose 148 H (65-100) mg/dL Calcium 8.4 (8.4-10.2) mg/dL - Allied health notes Allied health notes reviewed: nursing
[2021-12-31] MEDS: BUDESONIDE 0.5 MG/2 ML NEBU IH SCH ×3 (11:00→20:20)
[2021-12-31] MEDS: IPRATROPIUM/ALBUTEROL SULFATE 3 ML AMPUL.NEB IH SCH ×4 (11:01→20:20)
--- NOTE | 2021-12-31 13:31 | Progress Note ---
Assessment and Plan Septic shock Bacteremia with gram-positive cocci End-stage renal disease on dialysis Colitis Acute toxic metabolic encephalopathy Thrombocytopenia Non-ST elevation myocardial infarction A-Fib with RVR Hypertension Diabetes type 2 Anemia that is normocytic - RN asked to call attending for moderate pain analgesia - prn supplemental oxygen for target O2 sat's > 90% acutely (1L NC now) - continue wound care per RN / WCN - continue care as below otherwise; - VAP bundle addressed - continue lung protective strategies - continue bronchodilators with pulmonary hygiene per RT - wean per pulmonary driven protocols otherwise - continue HD/UF for toxin and volume clearance - avoid nephrotoxins, renally dose all medications - continue to avoid benzodiazepine's, reduce the possibility of delirium - prn analgesia per pain score - Maintenance of sleep-wake cycle, avoid delirium - continue enteral nutritional support at goal rate as tolerated - G.I. & VTE prophylaxis - PT/OT/ROM exercises - continue mobility protocols for pressure ulcer prophylaxis - Monitor hemodynamics closely - continue other care per attending / other consultants - discharge planning ongoing concurrently .... Re-evaluate in am & prn Subjective Date of service: 12/31/21 Principal diagnosis: Septic shock ; Bacteremia; ESRD on dialysis; AMS; NSTEMI; HTN; DM II Interval history: Patient is seen today for: Septic shock ; gm +ve Bacteremia; ESRD on dialysis; AMS; NSTEMI; Hypertension; DM II Seen and examined at bedside; 24hour events reviewed; nursing and respiratory care staff consulted; no adverse overnight events reported to me; resting peacefully in bed; complains of moderate pain in arm; denies chest pain; no N/V/F/C Objective Vital Signs - 12hr 12/31/21 12/31/21 12/31/21 03:02 06:13 08:13 Temperature 97.9 F 97.9 F Pulse Rate 71 71 71 Pulse Rate [ Anterior Bilateral Throughout] Respiratory 18 18 Rate Respiratory Rate [Anterior Bilateral Throughout] Blood Pressure 113/61 113/61 Blood Pressure 149/81 [Left] O2 Sat by Pulse 100 100 Oximetry 12/31/21 12/31/21 09:46 11:00 Temperature Pulse Rate 69 Pulse Rate [ 82 Anterior Bilateral Throughout] Respiratory Rate Respiratory 18 Rate [Anterior Bilateral Throughout] Blood Pressure Blood Pressure [Left] O2 Sat by Pulse 97 Oximetry Constitutional: no acute distress, other (elderly female with normal respiratory effort at rest) Eyes: non-icteric ENT: oropharynx moist, other (extubated) Neck: supple, no JVD Effort: normal Ascultation: Bilateral: rhonchi (scant, bases) Percussion: Bilateral: not dull Cardiovascular: regular rate and rhythm Gastrointestinal: normoactive bowel sounds, soft, non-tender, non-distended (protuberant) Integumentary: rash (right groin / ? scar), other (Left upper extremity AV graft; right forearm blisters (open and closed) and induration; no pus) Extremities: no cyanosis, pulses normal, no ischemia or petechiae, edema (right upper extremity) Neurologic: non-focal exam (grossly), pupils equal and round, CN II-XII normal, motor strength normal and Psychiatric: mood appropriate, affect normal CBC and BMP: 01/01/22 04:52 01/01/22 04:52 ABG, PT/INR, D-dimer: ABG ABG pH 7.450 pH Units (7.350-7.450) 12/24/21 Unknown POC ABG pCO2 36.0 mmHg (32.0-48.0) 12/21/21 10:20 ABG pCO2 39.1 mm Hg 12/24/21 Unknown POC ABG pO2 126.1 mmHg (83-108) H 12/21/21 10:20 ABG pO2 109.1 mm Hg (80.0-90.0) H 12/24/21 Unknown POC ABG HCO3 24.3 12/21/21 10:20 ABG O2 Saturation 98.1 % (95.0-99.0) 12/24/21 Unknown PT/INR, D-dimer PT 17.7 Sec. (12.2-14.9) H 12/22/21 14:05 INR 1.30 (0.87-1.13) H 12/22/21 14:05 Abnormal lab findings: Abnormal Labs 12/11/21 12/11/21 12/12/21 14:52 15:40 04:43 WBC RBC 3.57 L Hgb 9.4 L Hct 29.5 L MCH 26 L 27 L RDW 17.8 H 17.9 H Plt Count 119 L 110 L Lymph % (Auto) 4.0 L [place] % (Auto) Lymph # (Auto) 0.3 L [place] # (Auto) Seg Neutrophils % 90.0 H Seg Neuts % (Manual) Lymphocytes % (Manual) Monocytes % (Manual) Nucleated RBC % Seg Neutrophils # Seg Neutrophils # Man Lymphocytes # (Manual) Percent Retic PT INR Fibrinogen ABG pH POC ABG pO2 ABG pO2 ABG HCO3 ABG O2 Saturation ABG Base Excess ABG Hemoglobin VBG pO2 Oxyhemoglobin Sodium Potassium Chloride Carbon Dioxide 18 L BUN 76 H Creatinine 9.2 H Glucose POC Glucose Lactic Acid Calcium 7.7 L Phosphorus Magnesium Iron TIBC Ferritin Alkaline Phosphatase 237 H Lactate Dehydrogenase Troponin T 0.168 H* C-Reactive Protein Total Protein Albumin 3.6 L LDL Cholesterol Direct 16 L Crossmatch 12/12/21 12/12/21 12/12/21 04:43 04:43 08:49 WBC RBC Hgb Hct MCH RDW Plt Count Lymph % (Auto) [place] % (Auto) Lymph # (Auto) [place] # (Auto) Seg Neutrophils % Seg Neuts % (Manual) Lymphocytes % (Manual) Monocytes % (Manual) Nucleated RBC % Seg Neutrophils # Seg Neutrophils # Man Lymphocytes # (Manual) Percent Retic PT INR Fibrinogen ABG pH POC ABG pO2 ABG pO2 ABG HCO3 ABG O2 Saturation ABG Base Excess ABG Hemoglobin VBG pO2 Oxyhemoglobin Sodium 136 L Potassium Chloride 96.0 L Carbon Dioxide BUN 85 H Creatinine 9.6 H Glucose 57 L POC Glucose 47 L Lactic Acid Calcium 7.8 L Phosphorus Magnesium Iron TIBC Ferritin Alkaline Phosphatase Lactate Dehydrogenase Troponin T 0.175 H* C-Reactive Protein Total Protein Albumin LDL Cholesterol Direct Crossmatch 12/12/21 12/13/21 12/13/21 11:12 07:30 07:30 WBC RBC Hgb 9.7 L Hct 30.0 L MCH 27 L RDW 18.0 H Plt Count 99 L Lymph % (Auto) 4.8 L [place] % (Auto) Lymph # (Auto) 0.3 L [place] # (Auto) Seg Neutrophils % 88.2 H Seg Neuts % (Manual) Lymphocytes % (Manual) Monocytes % (Manual) Nucleated RBC % Seg Neutrophils # Seg Neutrophils # Man Lymphocytes # (Manual) Percent Retic PT INR Fibrinogen ABG pH POC ABG pO2 ABG pO2 ABG HCO3 ABG O2 Saturation ABG Base Excess ABG Hemoglobin VBG pO2 Oxyhemoglobin Sodium Potassium 5.1 H Chloride 97.8 L Carbon Dioxide 16 L BUN 92 H Creatinine 10.6 H Glucose 121 H POC Glucose 64 L Lactic Acid Calcium 7.6 L Phosphorus Magnesium Iron TIBC Ferritin Alkaline Phosphatase Lactate Dehydrogenase Troponin T C-Reactive Protein Total Protein Albumin LDL Cholesterol Direct Crossmatch 12/13/21 12/13/21 12/13/21 08:06 11:32 16:59 WBC RBC Hgb Hct MCH RDW Plt Count Lymph % (Auto) [place] % (Auto) Lymph # (Auto) [place] # (Auto) Seg Neutrophils % Seg Neuts % (Manual) Lymphocytes % (Manual) Monocytes % (Manual) Nucleated RBC % Seg Neutrophils # Seg Neutrophils # Man Lymphocytes # (Manual) Percent Retic PT INR Fibrinogen ABG pH POC ABG pO2 ABG pO2 ABG HCO3 ABG O2 Saturation ABG Base Excess ABG Hemoglobin VBG pO2 Oxyhemoglobin Sodium Potassium Chloride Carbon Dioxide BUN Creatinine Glucose POC Glucose 118 H 128 H 130 H Lactic Acid Calcium Phosphorus Magnesium Iron TIBC Ferritin Alkaline Phosphatase Lactate Dehydrogenase Troponin T C-Reactive Protein Total Protein Albumin LDL Cholesterol Direct Crossmatch 12/13/21 12/14/21 12/14/21 20:16 11:10 11:10 WBC RBC Hgb 9.9 L Hct MCH 27 L RDW 18.1 H Plt Count 82 L Lymph % (Auto) 5.8 L [place] % (Auto) Lymph # (Auto) 0.4 L [place] # (Auto) Seg Neutrophils % 88.3 H Seg Neuts % (Manual) Lymphocytes % (Manual) Monocytes % (Manual) Nucleated RBC % Seg Neutrophils # Seg Neutrophils # Man Lymphocytes # (Manual) Percent Retic PT INR Fibrinogen ABG pH POC ABG pO2 ABG pO2 ABG HCO3 ABG O2 Saturation ABG Base Excess ABG Hemoglobin VBG pO2 Oxyhemoglobin Sodium Potassium Chloride Carbon Dioxide 21 L BUN 57 H Creatinine 7.1 H Glucose 105 H POC Glucose 113 H Lactic Acid Calcium Phosphorus Magnesium Iron TIBC Ferritin Alkaline Phosphatase Lactate Dehydrogenase Troponin T C-Reactive Protein Total Protein Albumin LDL Cholesterol Direct Crossmatch 12/14/21 12/14/21 12/15/21 11:46 16:41 04:11 WBC RBC Hgb 9.9 L Hct 30.0 L MCH 27 L RDW 18.4 H Plt Count 57 L Lymph % (Auto) [place] % (Auto) Lymph # (Auto) [place] # (Auto) Seg Neutrophils % Seg Neuts % (Manual) Lymphocytes % (Manual) 9.0 L Monocytes % (Manual) 10.0 H Nucleated RBC % Seg Neutrophils # Seg Neutrophils # Man Lymphocytes # (Manual) 0.6 L Percent Retic PT INR Fibrinogen ABG pH POC ABG pO2 ABG pO2 ABG HCO3 ABG O2 Saturation ABG Base Excess ABG Hemoglobin VBG pO2 Oxyhemoglobin Sodium Potassium Chloride Carbon Dioxide BUN Creatinine Glucose POC Glucose 108 H 111 H Lactic Acid Calcium Phosphorus Magnesium Iron TIBC Ferritin Alkaline Phosphatase Lactate Dehydrogenase Troponin T C-Reactive Protein Total Protein Albumin LDL Cholesterol Direct Crossmatch 12/15/21 12/15/21 12/15/21 04:11 08:48 10:02 WBC RBC Hgb Hct MCH RDW Plt Count Lymph % (Auto) [place] % (Auto) Lymph # (Auto) [place] # (Auto) Seg Neutrophils % Seg Neuts % (Manual) Lymphocytes % (Manual) Monocytes % (Manual) Nucleated RBC % Seg Neutrophils # Seg Neutrophils # Man Lymphocytes # (Manual) Percent Retic PT INR Fibrinogen ABG pH POC ABG pO2 ABG pO2 ABG HCO3 ABG O2 Saturation ABG Base Excess ABG Hemoglobin VBG pO2 Oxyhemoglobin Sodium Potassium Chloride Carbon Dioxide 19 L BUN 68 H Creatinine 7.6 H Glucose POC Glucose 68 L 65 L Lactic Acid Calcium 8.1 L Phosphorus Magnesium Iron TIBC Ferritin Alkaline Phosphatase Lactate Dehydrogenase Troponin T C-Reactive Protein Total Protein Albumin LDL Cholesterol Direct Crossmatch 12/15/21 12/15/21 12/15/21 10:20 10:51 14:40 WBC RBC Hgb Hct MCH RDW Plt Count Lymph % (Auto) [place] % (Auto) Lymph # (Auto) [place] # (Auto) Seg Neutrophils % Seg Neuts % (Manual) Lymphocytes % (Manual) Monocytes % (Manual) Nucleated RBC % Seg Neutrophils # Seg Neutrophils # Man Lymphocytes # (Manual) Percent Retic PT INR Fibrinogen ABG pH POC ABG pO2 ABG pO2 ABG HCO3 ABG O2 Saturation ABG Base Excess ABG Hemoglobin VBG pO2 Oxyhemoglobin Sodium Potassium Chloride Carbon Dioxide BUN Creatinine Glucose POC Glucose 59 L 60 L Lactic Acid 2.50 H* Calcium Phosphorus Magnesium Iron TIBC Ferritin Alkaline Phosphatase Lactate Dehydrogenase Troponin T C-Reactive Protein Total Protein Albumin LDL Cholesterol Direct Crossmatch 12/15/21 12/15/21 12/16/21 14:40 19:50 05:00 WBC 12.4 H RBC Hgb 9.6 L Hct 29.4 L MCH 26 L RDW 18.1 H Plt Count 40 L Lymph % (Auto) [place] % (Auto) Lymph # (Auto) [place] # (Auto) Seg Neutrophils % Seg Neuts % (Manual) 95.0 H Lymphocytes % (Manual) 5.0 L Monocytes % (Manual) Nucleated RBC % Seg Neutrophils # Seg Neutrophils # Man 11.8 H Lymphocytes # (Manual) 0.6 L Percent Retic PT INR Fibrinogen ABG pH POC ABG pO2 ABG pO2 463.3 H ABG HCO3 ABG O2 Saturation 99.6 H ABG Base Excess ABG Hemoglobin 10.9 L VBG pO2 > 258.0 H Oxyhemoglobin Sodium Potassium Chloride Carbon Dioxide BUN Creatinine Glucose POC Glucose Lactic Acid Calcium Phosphorus Magnesium Iron TIBC Ferritin Alkaline Phosphatase Lactate Dehydrogenase Troponin T C-Reactive Protein 38.50 H Total Protein Albumin LDL Cholesterol Direct Crossmatch 12/16/21 12/16/21 12/16/21 05:00 06:15 09:58 WBC RBC Hgb Hct MCH RDW Plt Count Lymph % (Auto) [place] % (Auto) Lymph # (Auto) [place] # (Auto) Seg Neutrophils % Seg Neuts % (Manual) Lymphocytes % (Manual) Monocytes % (Manual) Nucleated RBC % Seg Neutrophils # Seg Neutrophils # Man Lymphocytes # (Manual) Percent Retic PT INR Fibrinogen ABG pH POC ABG pO2 ABG pO2 48.0 L ABG HCO3 ABG O2 Saturation 80.5 L ABG Base Excess -2.9 L ABG Hemoglobin 11.2 L VBG pO2 Oxyhemoglobin 78.8 L Sodium Potassium Chloride Carbon Dioxide BUN 75 H Creatinine 7.7 H Glucose POC Glucose 67 L Lactic Acid Calcium 8.3 L Phosphorus Magnesium Iron TIBC Ferritin Alkaline Phosphatase Lactate Dehydrogenase Troponin T C-Reactive Protein Total Protein Albumin LDL Cholesterol Direct Crossmatch 12/16/21 12/16/21 12/17/21 11:06 23:24 04:00 WBC 12.3 H RBC 3.32 L Hgb 8.8 L Hct 26.5 L MCH 26 L RDW 18.0 H Plt Count 27 L Lymph % (Auto) 5.9 L [place] % (Auto) Lymph # (Auto) 0.7 L [place] # (Auto) Seg Neutrophils % 88.3 H Seg Neuts % (Manual) Lymphocytes % (Manual) Monocytes % (Manual) Nucleated RBC % Seg Neutrophils # 10.9 H Seg Neutrophils # Man Lymphocytes # (Manual) Percent Retic PT INR Fibrinogen ABG pH POC ABG pO2 ABG pO2 137.7 H ABG HCO3 ABG O2 Saturation ABG Base Excess ABG Hemoglobin 9.9 L VBG pO2 Oxyhemoglobin Sodium Potassium Chloride Carbon Dioxide BUN Creatinine Glucose POC Glucose 110 H Lactic Acid Calcium Phosphorus Magnesium Iron TIBC Ferritin Alkaline Phosphatase Lactate Dehydrogenase Troponin T C-Reactive Protein Total Protein Albumin LDL Cholesterol Direct Crossmatch 12/17/21 12/17/21 12/17/21 04:30 04:30 11:18 WBC RBC Hgb Hct MCH RDW Plt Count Lymph % (Auto) [place] % (Auto) Lymph # (Auto) [place] # (Auto) Seg Neutrophils % Seg Neuts % (Manual) Lymphocytes % (Manual) Monocytes % (Manual) Nucleated RBC % Seg Neutrophils # Seg Neutrophils # Man Lymphocytes # (Manual) Percent Retic PT INR Fibrinogen ABG pH POC ABG pO2 ABG pO2 ABG HCO3 ABG O2 Saturation ABG Base Excess ABG Hemoglobin VBG pO2 Oxyhemoglobin Sodium Potassium Chloride Carbon Dioxide BUN 43 H Creatinine 5.0 H Glucose 129 H POC Glucose 149 H Lactic Acid Calcium 7.8 L Phosphorus 1.90 L Magnesium 1.60 L Iron TIBC Ferritin Alkaline Phosphatase Lactate Dehydrogenase Troponin T C-Reactive Protein Total Protein Albumin LDL Cholesterol Direct Crossmatch 12/17/21 12/17/21 12/17/21 14:35 16:58 18:32 WBC RBC Hgb Hct MCH RDW Plt Count Lymph % (Auto) [place] % (Auto) Lymph # (Auto) [place] # (Auto) Seg Neutrophils % Seg Neuts % (Manual) Lymphocytes % (Manual) Monocytes % (Manual) Nucleated RBC % Seg Neutrophils # Seg Neutrophils # Man Lymphocytes # (Manual) Percent Retic PT 17.4 H INR 1.27 H Fibrinogen 486 H ABG pH 7.316 L POC ABG pO2 ABG pO2 74.0 L ABG HCO3 ABG O2 Saturation 93.7 L ABG Base Excess -3.3 L ABG Hemoglobin 8.8 L VBG pO2 Oxyhemoglobin 91.7 L Sodium Potassium Chloride Carbon Dioxide BUN Creatinine Glucose POC Glucose 219 H Lactic Acid Calcium Phosphorus Magnesium Iron TIBC Ferritin Alkaline Phosphatase Lactate Dehydrogenase Troponin T C-Reactive Protein Total Protein Albumin LDL Cholesterol Direct Crossmatch 12/17/21 12/18/21 12/18/21 23:19 05:00 05:00 WBC 15.3 H RBC 3.25 L Hgb 8.4 L Hct 25.7 L MCH 26 L RDW 18.2 H Plt Count 28 L Lymph % (Auto) [place] % (Auto) Lymph # (Auto) [place] # (Auto) Seg Neutrophils % Seg Neuts % (Manual) 99.0 H Lymphocytes % (Manual) 1.0 L Monocytes % (Manual) Nucleated RBC % 1.0 H Seg Neutrophils # Seg Neutrophils # Man 15.1 H Lymphocytes # (Manual) 0.2 L Percent Retic 0.37 L PT INR Fibrinogen ABG pH POC ABG pO2 ABG pO2 ABG HCO3 ABG O2 Saturation ABG Base Excess ABG Hemoglobin VBG pO2 Oxyhemoglobin Sodium 135 L Potassium Chloride Carbon Dioxide 20 L BUN 53 H Creatinine 5.2 H Glucose 307 H POC Glucose 313 H Lactic Acid Calcium 8.0 L Phosphorus Magnesium Iron 13 L TIBC 109 L Ferritin Alkaline Phosphatase Lactate Dehydrogenase Troponin T C-Reactive Protein Total Protein Albumin LDL Cholesterol Direct Crossmatch 12/18/21 12/18/21 12/18/21 05:00 05:00 09:00 WBC RBC Hgb Hct MCH RDW Plt Count Lymph % (Auto) [place] % (Auto) Lymph # (Auto) [place] # (Auto) Seg Neutrophils % Seg Neuts % (Manual) Lymphocytes % (Manual) Monocytes % (Manual) Nucleated RBC % Seg Neutrophils # Seg Neutrophils # Man Lymphocytes # (Manual) Percent Retic PT INR Fibrinogen 481 H ABG pH POC ABG pO2 ABG pO2 50.2 L ABG HCO3 ABG O2 Saturation 81.7 L ABG Base Excess -3.6 L ABG Hemoglobin 8.0 L VBG pO2 Oxyhemoglobin 80.0 L Sodium Potassium Chloride Carbon Dioxide BUN Creatinine Glucose POC Glucose Lactic Acid Calcium Phosphorus Magnesium Iron TIBC Ferritin 383.4 H Alkaline Phosphatase Lactate Dehydrogenase Troponin T C-Reactive Protein Total Protein Albumin LDL Cholesterol Direct Crossmatch 12/18/21 12/18/21 12/18/21 10:56 11:10 12:00 WBC RBC Hgb Hct MCH RDW Plt Count Lymph % (Auto) [place] % (Auto) Lymph # (Auto) [place] # (Auto) Seg Neutrophils % Seg Neuts % (Manual) Lymphocytes % (Manual) Monocytes % (Manual) Nucleated RBC % Seg Neutrophils # Seg Neutrophils # Man Lymphocytes # (Manual) Percent Retic PT INR Fibrinogen ABG pH POC ABG pO2 ABG pO2 92.7 H ABG HCO3 19.8 L ABG O2 Saturation ABG Base Excess -3.8 L ABG Hemoglobin 6.6 L VBG pO2 Oxyhemoglobin Sodium Potassium Chloride Carbon Dioxide BUN Creatinine Glucose POC Glucose 190 H Lactic Acid Calcium Phosphorus 2.40 L D Magnesium Iron TIBC Ferritin Alkaline Phosphatase Lactate Dehydrogenase Troponin T C-Reactive Protein Total Protein Albumin LDL Cholesterol Direct Crossmatch 12/18/21 12/18/21 12/18/21 18:06 20:00 23:05 WBC 19.2 H RBC 3.51 L Hgb 8.8 L Hct 27.8 L MCH 25 L RDW 18.1 H Plt Count 34 L Lymph % (Auto) [place] % (Auto) Lymph # (Auto) [place] # (Auto) Seg Neutrophils % Seg Neuts % (Manual) Lymphocytes % (Manual) Monocytes % (Manual) Nucleated RBC % Seg Neutrophils # Seg Neutrophils # Man Lymphocytes # (Manual) Percent Retic PT INR Fibrinogen ABG pH POC ABG pO2 ABG pO2 62.5 L ABG HCO3 26.6 H ABG O2 Saturation 91.7 L ABG Base Excess ABG Hemoglobin 8.4 L VBG pO2 Oxyhemoglobin 89.9 L Sodium Potassium Chloride Carbon Dioxide BUN Creatinine Glucose POC Glucose 156 H Lactic Acid Calcium Phosphorus Magnesium Iron TIBC Ferritin Alkaline Phosphatase Lactate Dehydrogenase Troponin T C-Reactive Protein Total Protein Albumin LDL Cholesterol Direct Crossmatch 12/18/21 12/19/21 12/19/21 23:54 05:00 05:00 WBC 18.9 H RBC 3.29 L Hgb 8.4 L Hct 26.0 L MCH 26 L RDW 18.2 H Plt Count 34 L Lymph % (Auto) [place] % (Auto) Lymph # (Auto) [place] # (Auto) Seg Neutrophils % Seg Neuts % (Manual) 93.0 H Lymphocytes % (Manual) 2.0 L Monocytes % (Manual) Nucleated RBC % Seg Neutrophils # Seg Neutrophils # Man 17.6 H Lymphocytes # (Manual) 0.4 L Percent Retic PT INR Fibrinogen ABG pH POC ABG pO2 ABG pO2 ABG HCO3 ABG O2 Saturation ABG Base Excess ABG Hemoglobin VBG pO2 Oxyhemoglobin Sodium Potassium Chloride Carbon Dioxide BUN 30 H Creatinine 3.1 H Glucose 155 H POC Glucose 122 H Lactic Acid Calcium 8.2 L Phosphorus Magnesium Iron TIBC Ferritin Alkaline Phosphatase Lactate Dehydrogenase Troponin T C-Reactive Protein Total Protein Albumin LDL Cholesterol Direct Crossmatch 05/06/22 05/06/22 05/06/22 05:29 11:41 17:48 WBC RBC Hgb Hct MCH RDW Plt Count Lymph % (Auto) [place] % (Auto) Lymph # (Auto) [place] # (Auto) Seg Neutrophils % Seg Neuts % (Manual) Lymphocytes % (Manual) Monocytes % (Manual) Nucleated RBC % Seg Neutrophils # Seg Neutrophils # Man Lymphocytes # (Manual) Percent Retic PT INR Fibrinogen ABG pH POC ABG pO2 ABG pO2 ABG HCO3 ABG O2 Saturation ABG Base Excess ABG Hemoglobin VBG pO2 Oxyhemoglobin Sodium Potassium Chloride Carbon Dioxide BUN Creatinine Glucose POC Glucose 153 H 164 H 113 H Lactic Acid Calcium Phosphorus Magnesium Iron TIBC Ferritin Alkaline Phosphatase Lactate Dehydrogenase Troponin T C-Reactive Protein Total Protein Albumin LDL Cholesterol Direct Crossmatch 12/19/21 12/20/21 12/20/21 23:53 04:45 04:45 WBC 15.0 H RBC 3.39 L Hgb 8.4 L Hct 26.8 L MCH 25 L RDW 17.8 H Plt Count 36 L Lymph % (Auto) [place] % (Auto) Lymph # (Auto) [place] # (Auto) Seg Neutrophils % Seg Neuts % (Manual) Lymphocytes % (Manual) Monocytes % (Manual) Nucleated RBC % Seg Neutrophils # Seg Neutrophils # Man Lymphocytes # (Manual) Percent Retic PT INR Fibrinogen ABG pH POC ABG pO2 ABG pO2 ABG HCO3 ABG O2 Saturation ABG Base Excess ABG Hemoglobin VBG pO2 Oxyhemoglobin Sodium 135 L Potassium Chloride 96.1 L Carbon Dioxide BUN 48 H Creatinine 3.9 H Glucose 188 H POC Glucose 157 H Lactic Acid Calcium 8.1 L Phosphorus Magnesium Iron TIBC Ferritin Alkaline Phosphatase Lactate Dehydrogenase Troponin T C-Reactive Protein Total Protein Albumin LDL Cholesterol Direct Crossmatch 12/20/21 12/20/21 12/20/21 05:07 11:13 16:35 WBC RBC Hgb Hct MCH RDW Plt Count Lymph % (Auto) [place] % (Auto) Lymph # (Auto) [place] # (Auto) Seg Neutrophils % Seg Neuts % (Manual) Lymphocytes % (Manual) Monocytes % (Manual) Nucleated RBC % Seg Neutrophils # Seg Neutrophils # Man Lymphocytes # (Manual) Percent Retic PT INR Fibrinogen ABG pH POC ABG pO2 ABG pO2 ABG HCO3 ABG O2 Saturation ABG Base Excess ABG Hemoglobin VBG pO2 Oxyhemoglobin Sodium Potassium Chloride Carbon Dioxide BUN Creatinine Glucose POC Glucose 169 H 198 H 198 H Lactic Acid Calcium Phosphorus Magnesium Iron TIBC Ferritin Alkaline Phosphatase Lactate Dehydrogenase Troponin T C-Reactive Protein Total Protein Albumin LDL Cholesterol Direct Crossmatch 12/20/21 12/21/21 12/21/21 23:50 05:58 08:00 WBC 16.7 H RBC Hgb 9.3 L Hct 29.2 L MCH 25 L RDW 18.5 H Plt Count 62 L Lymph % (Auto) [place] % (Auto) Lymph # (Auto) [place] # (Auto) Seg Neutrophils % Seg Neuts % (Manual) Lymphocytes % (Manual) Monocytes % (Manual) Nucleated RBC % Seg Neutrophils # Seg Neutrophils # Man Lymphocytes # (Manual) Percent Retic PT INR Fibrinogen ABG pH POC ABG pO2 ABG pO2 ABG HCO3 ABG O2 Saturation ABG Base Excess ABG Hemoglobin VBG pO2 Oxyhemoglobin Sodium Potassium Chloride Carbon Dioxide BUN Creatinine Glucose POC Glucose 176 H 185 H Lactic Acid Calcium Phosphorus Magnesium Iron TIBC Ferritin Alkaline Phosphatase Lactate Dehydrogenase Troponin T C-Reactive Protein Total Protein Albumin LDL Cholesterol Direct Crossmatch 12/21/21 12/21/21 12/21/21 08:35 08:35 10:20 WBC RBC Hgb Hct MCH RDW Plt Count Lymph % (Auto) [place] % (Auto) Lymph # (Auto) [place] # (Auto) Seg Neutrophils % Seg Neuts % (Manual) Lymphocytes % (Manual) Monocytes % (Manual) Nucleated RBC % Seg Neutrophils # Seg Neutrophils # Man Lymphocytes # (Manual) Percent Retic PT 16.4 H INR 1.18 H Fibrinogen ABG pH POC ABG pO2 126.1 H ABG pO2 ABG HCO3 ABG O2 Saturation ABG Base Excess ABG Hemoglobin 11.1 L VBG pO2 Oxyhemoglobin Sodium Potassium 3.5 L Chloride Carbon Dioxide BUN 36 H Creatinine 2.7 H Glucose 174 H POC Glucose Lactic Acid Calcium 8.3 L Phosphorus Magnesium Iron TIBC Ferritin Alkaline Phosphatase Lactate Dehydrogenase 249 H Troponin T C-Reactive Protein Total Protein Albumin LDL Cholesterol Direct Crossmatch 12/21/21 12/21/21 12/21/21 11:18 17:14 18:00 WBC 20.2 H RBC Hgb 9.9 L Hct MCH 25 L RDW 18.0 H Plt Count 60 L Lymph % (Auto) [place] % (Auto) Lymph # (Auto) [place] # (Auto) Seg Neutrophils % Seg Neuts % (Manual) Lymphocytes % (Manual) Monocytes % (Manual) Nucleated RBC % Seg Neutrophils # Seg Neutrophils # Man Lymphocytes # (Manual) Percent Retic PT INR Fibrinogen ABG pH POC ABG pO2 ABG pO2 ABG HCO3 ABG O2 Saturation ABG Base Excess ABG Hemoglobin VBG pO2 Oxyhemoglobin Sodium Potassium Chloride Carbon Dioxide BUN Creatinine Glucose POC Glucose 181 H 222 H Lactic Acid Calcium Phosphorus Magnesium Iron TIBC Ferritin Alkaline Phosphatase Lactate Dehydrogenase Troponin T C-Reactive Protein Total Protein Albumin LDL Cholesterol Direct Crossmatch 12/21/21 12/21/21 12/22/21 19:26 23:28 04:14 WBC 23.9 H RBC Hgb Hct MCH 25 L RDW 17.8 H Plt Count 68 L Lymph % (Auto) [place] % (Auto) Lymph # (Auto) [place] # (Auto) Seg Neutrophils % Seg Neuts % (Manual) Lymphocytes % (Manual) Monocytes % (Manual) Nucleated RBC % Seg Neutrophils # Seg Neutrophils # Man Lymphocytes # (Manual) Percent Retic PT INR Fibrinogen ABG pH POC ABG pO2 ABG pO2 ABG HCO3 ABG O2 Saturation ABG Base Excess ABG Hemoglobin VBG pO2 Oxyhemoglobin Sodium Potassium Chloride Carbon Dioxide BUN Creatinine Glucose POC Glucose 214 H 260 H Lactic Acid Calcium Phosphorus Magnesium Iron TIBC Ferritin Alkaline Phosphatase Lactate Dehydrogenase Troponin T C-Reactive Protein Total Protein Albumin LDL Cholesterol Direct Crossmatch 12/22/21 12/22/21 12/22/21 04:14 05:28 11:12 WBC RBC Hgb Hct MCH RDW Plt Count Lymph % (Auto) [place] % (Auto) Lymph # (Auto) [place] # (Auto) Seg Neutrophils % Seg Neuts % (Manual) Lymphocytes % (Manual) Monocytes % (Manual) Nucleated RBC % Seg Neutrophils # Seg Neutrophils # Man Lymphocytes # (Manual) Percent Retic PT INR Fibrinogen ABG pH POC ABG pO2 ABG pO2 ABG HCO3 ABG O2 Saturation ABG Base Excess ABG Hemoglobin VBG pO2 Oxyhemoglobin Sodium 136 L Potassium 3.0 L Chloride Carbon Dioxide BUN 52 H Creatinine 3.5 H Glucose 202 H POC Glucose 223 H 191 H Lactic Acid Calcium 8.1 L Phosphorus Magnesium Iron TIBC Ferritin Alkaline Phosphatase Lactate Dehydrogenase Troponin T C-Reactive Protein Total Protein Albumin LDL Cholesterol Direct Crossmatch 12/22/21 12/22/21 12/23/21 14:05 17:57 04:39 WBC 21.1 H RBC Hgb 10.0 L Hct MCH 26 L RDW 17.6 H Plt Count 79 L Lymph % (Auto) [place] % (Auto) Lymph # (Auto) [place] # (Auto) Seg Neutrophils % Seg Neuts % (Manual) Lymphocytes % (Manual) Monocytes % (Manual) Nucleated RBC % Seg Neutrophils # Seg Neutrophils # Man Lymphocytes # (Manual) Percent Retic PT 17.7 H INR 1.30 H Fibrinogen ABG pH POC ABG pO2 ABG pO2 ABG HCO3 ABG O2 Saturation ABG Base Excess ABG Hemoglobin VBG pO2 Oxyhemoglobin Sodium Potassium Chloride Carbon Dioxide BUN Creatinine Glucose POC Glucose 140 H Lactic Acid Calcium Phosphorus Magnesium Iron TIBC Ferritin Alkaline Phosphatase Lactate Dehydrogenase Troponin T C-Reactive Protein Total Protein Albumin LDL Cholesterol Direct Crossmatch 12/23/21 12/23/21 12/23/21 04:39 05:11 11:44 WBC RBC Hgb Hct MCH RDW Plt Count Lymph % (Auto) [place] % (Auto) Lymph # (Auto) [place] # (Auto) Seg Neutrophils % Seg Neuts % (Manual) Lymphocytes % (Manual) Monocytes % (Manual) Nucleated RBC % Seg Neutrophils # Seg Neutrophils # Man Lymphocytes # (Manual) Percent Retic PT INR Fibrinogen ABG pH POC ABG pO2 ABG pO2 ABG HCO3 ABG O2 Saturation ABG Base Excess ABG Hemoglobin VBG pO2 Oxyhemoglobin Sodium 136 L Potassium Chloride Carbon Dioxide 19 L BUN 61 H Creatinine 4.5 H Glucose 113 H POC Glucose 109 H 132 H Lactic Acid Calcium 7.9 L Phosphorus 4.90 H Magnesium Iron TIBC Ferritin Alkaline Phosphatase Lactate Dehydrogenase Troponin T C-Reactive Protein Total Protein Albumin LDL Cholesterol Direct Crossmatch 12/23/21 12/23/21 12/23/21 14:05 16:20 16:59 WBC RBC Hgb 9.3 L Hct 28.7 L MCH RDW Plt Count Lymph % (Auto) [place] % (Auto) Lymph # (Auto) [place] # (Auto) Seg Neutrophils % Seg Neuts % (Manual) Lymphocytes % (Manual) Monocytes % (Manual) Nucleated RBC % Seg Neutrophils # Seg Neutrophils # Man Lymphocytes # (Manual) Percent Retic PT INR Fibrinogen ABG pH POC ABG pO2 ABG pO2 ABG HCO3 ABG O2 Saturation ABG Base Excess ABG Hemoglobin VBG pO2 Oxyhemoglobin Sodium Potassium Chloride Carbon Dioxide BUN Creatinine Glucose POC Glucose 180 H Lactic Acid Calcium Phosphorus Magnesium Iron TIBC Ferritin Alkaline Phosphatase Lactate Dehydrogenase Troponin T C-Reactive Protein Total Protein Albumin LDL Cholesterol Direct Crossmatch See Detail 12/23/21 12/23/21 12/24/21 21:44 23:30 03:45 WBC RBC Hgb Hct MCH RDW Plt Count Lymph % (Auto) [place] % (Auto) Lymph # (Auto) [place] # (Auto) Seg Neutrophils % Seg Neuts % (Manual) Lymphocytes % (Manual) Monocytes % (Manual) Nucleated RBC % Seg Neutrophils # Seg Neutrophils # Man Lymphocytes # (Manual) Percent Retic PT INR Fibrinogen ABG pH POC ABG pO2 ABG pO2 ABG HCO3 ABG O2 Saturation ABG Base Excess ABG Hemoglobin VBG pO2 Oxyhemoglobin Sodium Potassium Chloride Carbon Dioxide BUN Creatinine Glucose POC Glucose 141 H 146 H 199 H Lactic Acid Calcium Phosphorus Magnesium Iron TIBC Ferritin Alkaline Phosphatase Lactate Dehydrogenase Troponin T C-Reactive Protein Total Protein Albumin LDL Cholesterol Direct Crossmatch 12/24/21 12/24/21 12/24/21 06:00 06:00 12:37 WBC 16.8 H RBC 2.96 L Hgb 7.5 L Hct 23.3 L MCH 26 L RDW 17.8 H Plt Count 89 L Lymph % (Auto) [place] % (Auto) Lymph # (Auto) [place] # (Auto) Seg Neutrophils % Seg Neuts % (Manual) Lymphocytes % (Manual) Monocytes % (Manual) Nucleated RBC % Seg Neutrophils # Seg Neutrophils # Man Lymphocytes # (Manual) Percent Retic PT INR Fibrinogen ABG pH POC ABG pO2 ABG pO2 ABG HCO3 ABG O2 Saturation ABG Base Excess ABG Hemoglobin VBG pO2 Oxyhemoglobin Sodium Potassium 3.3 L Chloride 97.3 L Carbon Dioxide BUN 31 H Creatinine 2.8 H Glucose 208 H POC Glucose 181 H Lactic Acid Calcium 7.6 L Phosphorus Magnesium Iron TIBC Ferritin Alkaline Phosphatase Lactate Dehydrogenase Troponin T C-Reactive Protein Total Protein Albumin LDL Cholesterol Direct Crossmatch 12/24/21 12/24/21 12/24/21 14:00 17:23 21:50 WBC RBC Hgb 7.4 L 8.8 L Hct 22.0 L 25.9 L MCH RDW Plt Count Lymph % (Auto) [place] % (Auto) Lymph # (Auto) [place] # (Auto) Seg Neutrophils % Seg Neuts % (Manual) Lymphocytes % (Manual) Monocytes % (Manual) Nucleated RBC % Seg Neutrophils # Seg Neutrophils # Man Lymphocytes # (Manual) Percent Retic PT INR Fibrinogen ABG pH POC ABG pO2 ABG pO2 ABG HCO3 ABG O2 Saturation ABG Base Excess ABG Hemoglobin VBG pO2 Oxyhemoglobin Sodium Potassium Chloride Carbon Dioxide BUN Creatinine Glucose POC Glucose 167 H Lactic Acid Calcium Phosphorus Magnesium Iron TIBC Ferritin Alkaline Phosphatase Lactate Dehydrogenase Troponin T C-Reactive Protein Total Protein Albumin LDL Cholesterol Direct Crossmatch 12/24/21 12/24/21 12/25/21 23:54 Unknown 05:12 WBC 17.4 H RBC 3.10 L Hgb 8.3 L Hct 24.7 L MCH 27 L RDW 17.7 H Plt Count 105 L Lymph % (Auto) [place] % (Auto) Lymph # (Auto) [place] # (Auto) Seg Neutrophils % Seg Neuts % (Manual) Lymphocytes % (Manual) Monocytes % (Manual) Nucleated RBC % Seg Neutrophils # Seg Neutrophils # Man Lymphocytes # (Manual) Percent Retic PT INR Fibrinogen ABG pH POC ABG pO2 ABG pO2 109.1 H ABG HCO3 26.6 H ABG O2 Saturation ABG Base Excess ABG Hemoglobin 6.8 L VBG pO2 Oxyhemoglobin Sodium Potassium Chloride Carbon Dioxide BUN Creatinine Glucose POC Glucose 174 H Lactic Acid Calcium Phosphorus Magnesium Iron TIBC Ferritin Alkaline Phosphatase Lactate Dehydrogenase Troponin T C-Reactive Protein Total Protein Albumin LDL Cholesterol Direct Crossmatch 12/25/21 12/25/21 12/25/21 05:12 05:27 11:08 WBC RBC Hgb Hct MCH RDW Plt Count Lymph % (Auto) [place] % (Auto) Lymph # (Auto) [place] # (Auto) Seg Neutrophils % Seg Neuts % (Manual) Lymphocytes % (Manual) Monocytes % (Manual) Nucleated RBC % Seg Neutrophils # Seg Neutrophils # Man Lymphocytes # (Manual) Percent Retic PT INR Fibrinogen ABG pH POC ABG pO2 ABG pO2 ABG HCO3 ABG O2 Saturation ABG Base Excess ABG Hemoglobin VBG pO2 Oxyhemoglobin Sodium Potassium 3.5 L Chloride Carbon Dioxide BUN 38 H Creatinine 3.7 H Glucose 201 H POC Glucose 202 H 185 H Lactic Acid Calcium 8.0 L Phosphorus Magnesium Iron TIBC Ferritin Alkaline Phosphatase Lactate Dehydrogenase Troponin T C-Reactive Protein Total Protein Albumin LDL Cholesterol Direct Crossmatch 12/25/21 12/25/21 12/25/21 12:23 16:45 22:36 WBC RBC Hgb Hct MCH RDW Plt Count Lymph % (Auto) [place] % (Auto) Lymph # (Auto) [place] # (Auto) Seg Neutrophils % Seg Neuts % (Manual) Lymphocytes % (Manual) Monocytes % (Manual) Nucleated RBC % Seg Neutrophils # Seg Neutrophils # Man Lymphocytes # (Manual) Percent Retic PT INR Fibrinogen ABG pH POC ABG pO2 ABG pO2 ABG HCO3 ABG O2 Saturation ABG Base Excess ABG Hemoglobin VBG pO2 Oxyhemoglobin Sodium Potassium Chloride Carbon Dioxide BUN Creatinine Glucose POC Glucose 165 H 109 H 133 H Lactic Acid Calcium Phosphorus Magnesium Iron TIBC Ferritin Alkaline Phosphatase Lactate Dehydrogenase Troponin T C-Reactive Protein Total Protein Albumin LDL Cholesterol Direct Crossmatch 12/26/21 12/26/21 12/26/21 11:19 16:03 17:56 WBC RBC Hgb Hct MCH RDW Plt Count Lymph % (Auto) [place] % (Auto) Lymph # (Auto) [place] # (Auto) Seg Neutrophils % Seg Neuts % (Manual) Lymphocytes % (Manual) Monocytes % (Manual) Nucleated RBC % Seg Neutrophils # Seg Neutrophils # Man Lymphocytes # (Manual) Percent Retic PT INR Fibrinogen ABG pH POC ABG pO2 ABG pO2 ABG HCO3 ABG O2 Saturation ABG Base Excess ABG Hemoglobin VBG pO2 Oxyhemoglobin Sodium Potassium Chloride Carbon Dioxide BUN Creatinine Glucose POC Glucose 59 L 41 L 51 L Lactic Acid Calcium Phosphorus Magnesium Iron TIBC Ferritin Alkaline Phosphatase Lactate Dehydrogenase Troponin T C-Reactive Protein Total Protein Albumin LDL Cholesterol Direct Crossmatch 12/26/21 12/26/21 12/26/21 19:19 23:15 Unknown WBC 14.2 H RBC 3.14 L Hgb 8.5 L Hct 25.1 L MCH 27 L RDW 17.4 H Plt Count 119 L Lymph % (Auto) 8.0 L [place] % (Auto) 8.9 H Lymph # (Auto) 1.1 L [place] # (Auto) 1.3 H Seg Neutrophils % 81.7 H Seg Neuts % (Manual) Lymphocytes % (Manual) Monocytes % (Manual) Nucleated RBC % Seg Neutrophils # 11.6 H Seg Neutrophils # Man Lymphocytes # (Manual) Percent Retic PT INR Fibrinogen ABG pH POC ABG pO2 ABG pO2 ABG HCO3 ABG O2 Saturation ABG Base Excess ABG Hemoglobin VBG pO2 Oxyhemoglobin Sodium Potassium Chloride Carbon Dioxide BUN Creatinine Glucose POC Glucose 110 H 127 H Lactic Acid Calcium Phosphorus Magnesium Iron TIBC Ferritin Alkaline Phosphatase Lactate Dehydrogenase Troponin T C-Reactive Protein Total Protein Albumin LDL Cholesterol Direct Crossmatch 12/27/21 12/27/21 12/27/21 04:00 04:00 05:18 WBC RBC 2.81 L Hgb 7.7 L Hct 22.6 L MCH 27 L RDW 18.0 H Plt Count 120 L Lymph % (Auto) [place] % (Auto) Lymph # (Auto) [place] # (Auto) Seg Neutrophils % Seg Neuts % (Manual) Lymphocytes % (Manual) Monocytes % (Manual) Nucleated RBC % Seg Neutrophils # Seg Neutrophils # Man Lymphocytes # (Manual) Percent Retic PT INR Fibrinogen ABG pH POC ABG pO2 ABG pO2 ABG HCO3 ABG O2 Saturation ABG Base Excess ABG Hemoglobin VBG pO2 Oxyhemoglobin Sodium Potassium Chloride Carbon Dioxide BUN 39 H Creatinine 3.7 H Glucose 147 H POC Glucose 130 H Lactic Acid Calcium 8.0 L Phosphorus Magnesium Iron TIBC Ferritin Alkaline Phosphatase 222 H Lactate Dehydrogenase Troponin T C-Reactive Protein Total Protein 5.9 L Albumin 1.7 L LDL Cholesterol Direct Crossmatch 12/27/21 12/27/21 12/27/21 10:59 18:57 23:59 WBC RBC Hgb Hct MCH RDW Plt Count Lymph % (Auto) [place] % (Auto) Lymph # (Auto) [place] # (Auto) Seg Neutrophils % Seg Neuts % (Manual) Lymphocytes % (Manual) Monocytes % (Manual) Nucleated RBC % Seg Neutrophils # Seg Neutrophils # Man Lymphocytes # (Manual) Percent Retic PT INR Fibrinogen ABG pH POC ABG pO2 ABG pO2 ABG HCO3 ABG O2 Saturation ABG Base Excess ABG Hemoglobin VBG pO2 Oxyhemoglobin Sodium Potassium Chloride Carbon Dioxide BUN Creatinine Glucose POC Glucose 182 H 168 H 154 H Lactic Acid Calcium Phosphorus Magnesium Iron TIBC Ferritin Alkaline Phosphatase Lactate Dehydrogenase Troponin T C-Reactive Protein Total Protein Albumin LDL Cholesterol Direct Crossmatch 12/28/21 12/28/21 12/28/21 06:06 11:18 16:41 WBC RBC Hgb Hct MCH RDW Plt Count Lymph % (Auto) [place] % (Auto) Lymph # (Auto) [place] # (Auto) Seg Neutrophils % Seg Neuts % (Manual) Lymphocytes % (Manual) Monocytes % (Manual) Nucleated RBC % Seg Neutrophils # Seg Neutrophils # Man Lymphocytes # (Manual) Percent Retic PT INR Fibrinogen ABG pH POC ABG pO2 ABG pO2 ABG HCO3 ABG O2 Saturation ABG Base Excess ABG Hemoglobin VBG pO2 Oxyhemoglobin Sodium Potassium Chloride Carbon Dioxide BUN Creatinine Glucose POC Glucose 110 H 159 H 106 H Lactic Acid Calcium Phosphorus Magnesium Iron TIBC Ferritin Alkaline Phosphatase Lactate Dehydrogenase Troponin T C-Reactive Protein Total Protein Albumin LDL Cholesterol Direct Crossmatch 12/28/21 12/29/21 12/29/21 23:43 05:40 06:30 WBC RBC 2.73 L Hgb 7.5 L Hct 22.1 L MCH 27 L RDW 18.0 H Plt Count Lymph % (Auto) [place] % (Auto) Lymph # (Auto) [place] # (Auto) Seg Neutrophils % Seg Neuts % (Manual) Lymphocytes % (Manual) Monocytes % (Manual) Nucleated RBC % Seg Neutrophils # Seg Neutrophils # Man Lymphocytes # (Manual) Percent Retic PT INR Fibrinogen ABG pH POC ABG pO2 ABG pO2 ABG HCO3 ABG O2 Saturation ABG Base Excess ABG Hemoglobin VBG pO2 Oxyhemoglobin Sodium Potassium Chloride Carbon Dioxide BUN Creatinine Glucose POC Glucose 171 H 143 H Lactic Acid Calcium Phosphorus Magnesium Iron TIBC Ferritin Alkaline Phosphatase Lactate Dehydrogenase Troponin T C-Reactive Protein Total Protein Albumin LDL Cholesterol Direct Crossmatch 12/29/21 12/29/21 12/29/21 06:30 16:42 22:59 WBC RBC Hgb Hct MCH RDW Plt Count Lymph % (Auto) [place] % (Auto) Lymph # (Auto) [place] # (Auto) Seg Neutrophils % Seg Neuts % (Manual) Lymphocytes % (Manual) Monocytes % (Manual) Nucleated RBC % Seg Neutrophils # Seg Neutrophils # Man Lymphocytes # (Manual) Percent Retic PT INR Fibrinogen ABG pH POC ABG pO2 ABG pO2 ABG HCO3 ABG O2 Saturation ABG Base Excess ABG Hemoglobin VBG pO2 Oxyhemoglobin Sodium 132 L D Potassium 3.3 L Chloride 95.9 L Carbon Dioxide BUN 30 H Creatinine 3.3 H Glucose 164 H POC Glucose 107 H 146 H Lactic Acid Calcium 7.8 L Phosphorus Magnesium Iron TIBC Ferritin Alkaline Phosphatase Lactate Dehydrogenase Troponin T C-Reactive Protein Total Protein Albumin LDL Cholesterol Direct Crossmatch 12/30/21 12/30/21 12/30/21 04:56 04:56 05:35 WBC 4.2 L RBC 2.83 L Hgb 7.5 L Hct 23.1 L MCH 27 L RDW 18.3 H Plt Count Lymph % (Auto) [place] % (Auto) Lymph # (Auto) [place] # (Auto) Seg Neutrophils % Seg Neuts % (Manual) Lymphocytes % (Manual) Monocytes % (Manual) Nucleated RBC % Seg Neutrophils # Seg Neutrophils # Man Lymphocytes # (Manual) Percent Retic PT INR Fibrinogen ABG pH POC ABG pO2 ABG pO2 ABG HCO3 ABG O2 Saturation ABG Base Excess ABG Hemoglobin VBG pO2 Oxyhemoglobin Sodium 136 L Potassium 3.4 L Chloride Carbon Dioxide BUN 37 H Creatinine 4.2 H Glucose 117 H POC Glucose 113 H Lactic Acid Calcium 7.7 L Phosphorus Magnesium Iron TIBC Ferritin Alkaline Phosphatase Lactate Dehydrogenase Troponin T C-Reactive Protein Total Protein Albumin LDL Cholesterol Direct Crossmatch 12/30/21 12/30/21 12/30/21 07:24 16:58 23:21 WBC RBC Hgb Hct MCH RDW Plt Count Lymph % (Auto) [place] % (Auto) Lymph # (Auto) [place] # (Auto) Seg Neutrophils % Seg Neuts % (Manual) Lymphocytes % (Manual) Monocytes % (Manual) Nucleated RBC % Seg Neutrophils # Seg Neutrophils # Man Lymphocytes # (Manual) Percent Retic PT INR Fibrinogen ABG pH POC ABG pO2 ABG pO2 ABG HCO3 ABG O2 Saturation ABG Base Excess ABG Hemoglobin VBG pO2 Oxyhemoglobin Sodium Potassium Chloride Carbon Dioxide BUN Creatinine Glucose POC Glucose 125 H 134 H 153 H Lactic Acid Calcium Phosphorus Magnesium Iron TIBC Ferritin Alkaline Phosphatase Lactate Dehydrogenase Troponin T C-Reactive Protein Total Protein Albumin LDL Cholesterol Direct Crossmatch 12/31/21 12/31/21 12/31/21 05:55 11:34 Unknown WBC RBC Hgb Hct MCH RDW Plt Count Lymph % (Auto) [place] % (Auto) Lymph # (Auto) [place] # (Auto) Seg Neutrophils % Seg Neuts % (Manual) Lymphocytes % (Manual) Monocytes % (Manual) Nucleated RBC % Seg Neutrophils # Seg Neutrophils # Man Lymphocytes # (Manual) Percent Retic PT INR Fibrinogen ABG pH POC ABG pO2 ABG pO2 ABG HCO3 ABG O2 Saturation ABG Base Excess ABG Hemoglobin VBG pO2 Oxyhemoglobin Sodium Potassium Chloride Carbon Dioxide 31 H BUN Creatinine 2.7 H Glucose 148 H POC Glucose 127 H 114 H Lactic Acid Calcium Phosphorus Magnesium Iron TIBC Ferritin Alkaline Phosphatase Lactate Dehydrogenase Troponin T C-Reactive Protein Total Protein Albumin LDL Cholesterol Direct Crossmatch Allied health notes reviewed: nursing
[2021-12-31] MEDS: ACETAMINOPHEN 325 MG/10.15 ML ORAL LIQD UNIT DOSE FEEDTUBE PRN (14:16)
[2021-12-31 14:25] LABS: Hemoglobin A2 Prime SEE SCANNED RESULT; Hemoglobin Barts SEE SCANNED RESULT; Hemoglobin E SEE SCANNED RESULT; Hemoglobin G SEE SCANNED RESULT; Hemoglobin Lepore SEE SCANNED RESULT; Hemoglobin O-Arab SEE SCANNED RESULT; IEF Confirm SEE SCANNED RESULT; Interpretation SEE SCANNED RESULT; Sickle Solubility Test SEE SCANNED RESULT
[2021-12-31] MEDS ORDERED: POTASSIUM CHLORIDE ER 20 MEQ TAB PO ONE (14:56)
--- NOTE | 2021-12-31 15:02 | Progress Note ---
Assessment and Plan Assessment and plan: This is a 66-year-old female with known past medical history of ESRD on HD, HTN, heart-attack, and GERD initially admitted to the floor s/p fall at home. Patient was transferred to the ICU due to septic shock 09/17 [facility]PC bacteremia requiring vasopressor. Hospital Course to Date: 12/12: No acute events overnight, reports extreme pain in her right leg, denies chest pain or shortness of breath 12/13: No acute events overnight, patient tearful and complaining of right leg pain however she is refusing analgesic medication 12/14: Continues to have right leg pain, does not participate in interview 12/15: Patient transferred to the ICU for hypotension on Levophed drip however she was weaned off by morning and midodrine was increased due to borderline MAP. Blood cultures grew 11/17 gram-positive cocci with suspected right upper chest permacath source. Patient started on vancomycin and infectious disease consulted. Plan for IR consult for permacath removal and assessment of aVF functioning. Possible temporary Vas-Cath placement for hemodialysis. Patient is encephalopathic likely secondary to sepsis. Continue current antibiotics and repeat 2D echo and blood cultures in the a.m. Right upper extremity swelling and pain noted and right upper extremity XR and Doppler ordered. 12/16: Patient noted to have blisters on left arm and RN asked to elevate and place cool compresses to site. AV fistula on left upper extremity access by hemodialysis nurse and hemodialysis ongoing. Vasopressin ordered in efforts to wean Levophed while on hemodialysis. Echocardiogram repeated. Blood cultures grew beta-hemolytic strep group B and antibiotics changed to ceftriaxone. Dobutamine drip discontinued. Remained sedated on fentanyl drip. 12/17: Thrombocytopenia worse today, unable to tolerate being off vasopressin, started on steroids, HIT assay ordered-discontinued. SCDs for now. [facility] will like to give normal saline 100 ml/hr for 2 L. 12/18: Wound care consult placed for right upper extremity, PSV trials today, weaning Levophed, dialysis planned for today. Hematology/oncology consulted yesterday who recommends twice daily Solu-Medrol. No acute events reported overnight. Patient will be started on IV iron 12/19: PSV today, mentation better and intermittently follows commands. Platelets stable. Reglan started for vomiting and will slowly increase TF. KUB with no acu te process. 5/7: PSV today, mentation unchanged, CTH without acute findings, Platelets remains stable with no signs of bleeding, high residuals reported overnight and TF was off from approximately [id number]. TF resumed around 0 at currently at 20/hr. RN to increase as tolerated. [facility] plans extubation Wednesday. HD today. Will keep femoral line for now in setting of low plts 12/21: Patient had moderate BM today with bright red and dark red blood->CBC pending, coags, LDH ordered, GI consulted and Dr. Lambert alerted. PSV again today. Patient is still intermittently following commands. 12/22: Remains on the vent, more somnolent this am. Patient also with persistent bloody stools, H&H remains stable, GI is also following. Will keep patient NPO for now, IV PPI, and serial H&H. Patient is tolerating PSV trial, However, intubation postpone due to increased lethargy and GIB. Awaiting on GI recommen dations. 12/23: With persistent rectal bleeding, H&H and vital signs remain stable. GI is on the case, plan for possible colonoscopy tomorrow. Keep patient NPO, continue IV PPI and serial H&H. Hypoglycemic overnight, most likely due to NPO status, continue D10W for now. D/W CCM continue PSV trial, possible extubation tomorrow. Continue HD per Nephro 12/24: Post colonoscopy at the bedside this am. Patient stable on thevent but lethargic. GI recommendations appreciated. Will resume TF, continue PPI and trend H&H X1 day. Leukocytosis improved this am, stool studies pending, Continue current IV antibiotics per ID. Plan for possible PSV trial today once more awake, possible extubation if patient tolerate PSV trial. 12/25: s/p extubation now stable on 3L NC. Post colonoscopy, still with blood tinge losse stools, stool studies pending. Continue current IV antiobiotics per ID. S/p 1unit of PRBCs, H&H is stable this am, thrombocytopenia improved. Continue to hold AC, trend CBC, and PPI. Consult placed to general surgery for RUE wound eval and management, wound care consult pending. D/w CCM, patient is stable for transfer to Telemetry. 12/26: Patient remains very lethargic, failed swallow evaluation likely due to profound leathargy, Continue aspiration precautions, Monitor H/H closely, GI input noted, will purse PEG placement if patients mental status does not improve to tolerate oral diet. Continue abx per infectious disease specialist. She still has evidence of dark tarry stool in the FMS. We will monitor leukocytosis for resolution. Wound care input from surgical team appreciated patient will likely undergo debridement Aspiration precaution. Awaiting C. difficile testing also. 12/27: Patient still with diarrhea awaiting awaiting C. difficile cultures. Continue to hold all stool softeners. She is more awake this morning and if she was able to tolerate Robitussin and some COVID last night we will have speech team repeat swallow evaluation. Hemoglobin did drop by 1 g we will continue to monitor considering renal failure would not transfuse at this time unless less than 6. Aggressive PT OT 12/28: Continue supportive care. Awaiting PT OT evaluation. Patient appears more awake today and have asked the nurse to repeat swallow evaluation. Anticipate discharge in a.m. Continue hemodialysis Patient will benefit from wound care further right upper extremity wound on discharge. Surgical input on wound management appreciated. 12/29: Patient showing remarkable clinical improvement after summary the patient is a 66-year-old female with history of end-stage renal disease on HD hypertension AR and GERD who was admitted septic shock and placed on ICU in addition with mechanical ventilation for respiratory failure. During hospitalization it appears that the patient has some reaction to the right upper extremity for which there was extra cessation and wound development which is being managed by the wound care team. Of fecal management system was placed due to recurrent diarrhea C. difficile test was done and negative COVID test was negative. Vancomycin that was started for treatment of possible C. difficile has been discontinued. The patient today is much awake passed swallow evaluation onto the resolve Dobbhoff has been discontinued. PT OT evaluation is ordered for discharge planning. Replace electrolyte. The patient is planned for a fistulogram today due to left arm AV graft with swelling in the hand. Discharge planning will be based on the procedure that at this time. Anticipate discharge in 24 hrs I have called to update family but was only able to leave a message Case management for discharge planning Assessment and Plan #Septic Shock 09/17 #GPC [id number] strep group B #Severe Colitis #Leukocytosisresolvedresolved - Suspected source right upper chest Permacath, removed on 5/2 - Intial Blood cultures + beta-hemolytic strep group B in 4/4 bottles. Repeat blood cultures NGTD x48 hours - Echo with no evidence of vegetation - Severe colitis throughout the entire colon noted from colonoscopy on 12/24 - Stool studies pending -Infectious disease consulted; appreciate recs - Continue current IV Abx, Rocephin, per ID #Heart Failure with Reduced Ejection Fractionresolved #Severe Cardiomyopathy #NSTEMIresolved #Hypertensionstable #History of CAD - Cardiology consulted; appreciate recs - went in septic shock 2/ bacteremia- s/p dobutamine and vaspressors - Echocardiogram (11/23/2021): EF 35-40% - Repeat Echo this admit shows LVEF 30 to 35%, no valvular vegetations - Continue statin, ASA held due to GIB - midodrine adjusted and parameters added #Acute Metabolic Encephalopathyresolved #h/o seizure disorder and 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 -Renally dose medications and avoid nephrotoxic drugs. Renal diet. #Extravasation of RUE #Sacral Wounds - RUE extravasation of RUE- possibly levophed- Antidote not available - RUE doppler negative DVT - WOCN consult pending - General Surgery consulted; appreciate recs - PRN analgesia for pain management #Normocytic Anemia, chronic #Thrombocytopenia-improved #Hyponatremiaresolved #Hypokalemia #Acute GI Bleedresolved - Acute bloody stools since 12/21, probably due to low plt - H&H remains stable, Platelet count is improving - s/p 2units of FFP and 1unit of PRBCs - HIT panel negative - GI on consult, appreciated recommendations - 12/24- s/p Colonoscopy- diffuse severe colitis throughout the entire colon with erythema and edema and nodularity probably due to infectious or ischemic etiology - stool studies ordered to rule out infectious etiologies - Tolerating TF, still with bloody tinge loose stools - Continue to hold AC for now - Hematology consulted; appreciate recs #Type 2 Diabetes Mellitus # Multi-nodular thyroid gland - Episode of hypoglycemia, most likely due to NPO status - Tolerating TF, continue enteral nutrition for now - Speech swallow eval ordered - Multinodular thyroid gland noted on CT head - Possible thyroid US when more stable vs outpatient #Severe protein caloric malnutrition Albumin 1.7 Nutrition consulted; appreciate recs. Continue dietary supplementation. #Advanced care planning -Disease education conducted, care plan discussed, diagnoses discussed, prognosi s discussed, and patient acknowledges understanding with care plan -Time: +30 min #Discharge planning - Patient is pending subacute rehab authorization - Case management has been made aware. Disposition Plan: Continue medical management Total Time Spent with Patient (Minutes): 45 minutes History Interval history: No acute events overnight. Hospitalist Physical - Constitutional Vitals: Temp Pulse Resp BP Pulse Ox 98.3 F 75 18 107/70 97 12/31/21 14:09 12/31/21 14:16 12/31/21 11:00 12/31/21 14:09 12/31/21 11:00 General appearance: Present: no acute distress, cachectic - EENT Eyes: Present: PERRL, EOM intact ENT: hearing intact, clear oral mucosa, dentition normal - Neck Neck: Present: supple, normal ROM - Respiratory Respiratory effort: normal Respiratory: bilateral: diminished (On 2 L nasal cannula) - Cardiovascular Rhythm: regular Heart Sounds: Present: S1 & S2 - Extremities Extremities: no ischemia, pulses intact, pulses symmetrical, No edema, normal temperature, normal color, abnormal (Sacral decubitus ulcer) Peripheral Pulses: within normal limits - Abdominal General gastrointestinal: soft, non-tender, non-distended, normal bowel sounds - Integumentary Integumentary: Present: clear, warm, dry - Psychiatric Psychiatric: appropriate mood/affect, cooperative - Neurologic Neurologic: CNII-XII intact - Allied Health Allied health notes reviewed: nursing HEART Score - HEART Score Troponin: Troponin T 0.175 ng/mL (0.00-0.029) H* 12/12/21 04:43 Results - Labs CBC & Chem 7: 12/30/21 04:56 12/31/21 Unknown Labs: Laboratory Last Values WBC 4.2 K/mm3 (4.5-11.0) L 12/30/21 04:56 RBC 2.83 M/mm3 (3.65-5.03) L 12/30/21 04:56 Hgb 7.5 gm/dl (10.1-14.3) L 12/30/21 04:56 Hgb Comment See scanned result 12/19/21 05:00 Hct 23.1 % (30.3-42.9) L 12/30/21 04:56 MCV 82 fl (79-97) 12/30/21 04:56 MCH 27 pg (28-32) L 12/30/21 04:56 MCHC 33 % (30-34) 12/30/21 04:56 RDW 18.3 % (13.2-15.2) H 12/30/21 04:56 Plt Count 142 K/mm3 (140-440) 12/30/21 04:56 Lymph % (Auto) 8.0 % (13.4-35.0) L 12/26/21 Unknown Parmer % (Auto) 8.9 % (0.0-7.3) H 12/26/21 Unknown Eos % (Auto) 0.4 % (0.0-4.3) 12/26/21 Unknown Baso % (Auto) 1.0 % (0.0-1.8) 12/26/21 Unknown Lymph # (Auto) 1.1 K/mm3 (1.2-5.4) L 12/26/21 Unknown Parmer # (Auto) 1.3 K/mm3 (0.0-0.8) H 12/26/21 Unknown Eos # (Auto) 0.1 K/mm3 (0.0-0.4) 12/26/21 Unknown Baso # (Auto) 0.1 K/mm3 (0.0-0.1) 12/26/21 Unknown Add Manual Diff Complete 12/18/21 05:00 Total Counted 100 12/19/21 05:00 Seg Neutrophils % 81.7 % (40.0-70.0) H 12/26/21 Unknown Seg Neuts % (Manual) 93.0 % (40.0-70.0) H 12/19/21 05:00 Band Neutrophils % 2.0 % 12/19/21 05:00 Lymphocytes % (Manual) 2.0 % (13.4-35.0) L 12/19/21 05:00 Reactive Lymphs % (Man) 0 % 12/19/21 05:00 Monocytes % (Manual) 1.0 % (0.0-7.3) 12/19/21 05:00 Eosinophils % (Manual) 0 % (0.0-4.3) 12/19/21 05:00 Basophils % (Manual) 0 % (0.0-1.8) 12/19/21 05:00 Metamyelocytes % 2.0 % 12/19/21 05:00 Myelocytes % 0 % 12/19/21 05:00 Promyelocytes % 0 % 12/19/21 05:00 Blast Cells % 0 % 12/19/21 05:00 Nucleated RBC % Not Reportable 12/19/21 05:00 Seg Neutrophils # 11.6 K/mm3 (1.8-7.7) H 12/26/21 Unknown Seg Neutrophils # Man 17.6 K/mm3 (1.8-7.7) H 12/19/21 05:00 Band Neutrophils # 0.4 K/mm3 12/19/21 05:00 Lymphocytes # (Manual) 0.4 K/mm3 (1.2-5.4) L 12/19/21 05:00 Abs React Lymphs (Man) 0.0 K/mm3 12/19/21 05:00 Monocytes # (Manual) 0.2 K/mm3 (0.0-0.8) 12/19/21 05:00 Eosinophils # (Manual) 0.0 K/mm3 (0.0-0.4) 12/19/21 05:00 Basophils # (Manual) 0.0 K/mm3 (0.0-0.1) 12/19/21 05:00 Metamyelocytes # 0.4 K/mm3 12/19/21 05:00 Myelocytes # 0.0 K/mm3 12/19/21 05:00 Promyelocytes # 0.0 K/mm3 12/19/21 05:00 Blast Cells # 0.0 K/mm3 12/19/21 05:00 WBC Morphology Not Reportable 12/19/21 05:00 Hypersegmented Neuts Not Reportable 12/19/21 05:00 Hyposegmented Neuts 1+ 12/19/21 05:00 Hypogranular Neuts Not Reportable 12/19/21 05:00 Smudge Cells Not Reportable 12/19/21 05:00 Toxic Granulation Not Reportable 12/19/21 05:00 Toxic Vacuolation Not Reportable 12/19/21 05:00 Dohle Bodies Not Reportable 12/19/21 05:00 Pelger-Huet Anomaly Not Reportable 12/19/21 05:00 Charles Rods Not Reportable 12/19/21 05:00 Platelet Estimate Consistent w auto 12/19/21 05:00 Clumped Platelets Not Reportable 12/19/21 05:00 Plt Clumps, EDTA Not Reportable 12/19/21 05:00 Large Platelets Not Reportable 12/19/21 05:00 Giant Platelets Not Reportable 12/19/21 05:00 Platelet Satelliting Not Reportable 12/19/21 05:00 Plt Morphology Comment Not Reportable 12/19/21 05:00 RBC Morphology Not Reportable 12/19/21 05:00 Dimorphic RBCs Not Reportable 12/19/21 05:00 Polychromasia Not Reportable 12/19/21 05:00 Hypochromasia 1+ 12/19/21 05:00 Poikilocytosis Few 12/19/21 05:00 Anisocytosis Few 12/19/21 05:00 Microcytosis Not Reportable 12/19/21 05:00 Macrocytosis Not Reportable 12/19/21 05:00 Spherocytes Not Reportable 12/19/21 05:00 Pappenheimer Bodies Not Reportable 12/19/21 05:00 Sickle Cells Not Reportable 12/19/21 05:00 Target Cells Rare 12/19/21 05:00 Tear Drop Cells Not Reportable 12/19/21 05:00 Ovalocytes Rare 12/19/21 05:00 Helmet Cells Not Reportable 12/19/21 05:00 Murphy-Pershing Bodies Not Reportable 12/19/21 05:00 [place] Rings Not Reportable 12/19/21 05:00 Metaline Cells Not Reportable 12/19/21 05:00 Bite Cells Not Reportable 12/19/21 05:00 Crenated Cell Not Reportable 12/19/21 05:00 Elliptocytes Not Reportable 12/19/21 05:00 Acanthocytes (Spur) Not Reportable 12/19/21 05:00 Rouleaux Rare 12/19/21 05:00 Hemoglobin C Crystals Not Reportable 12/19/21 05:00 Schistocytes Rare 12/19/21 05:00 Malaria parasites Not Reportable 12/19/21 05:00 Percent Retic 0.37 % (0.78-2.58) L 12/18/21 05:00 Sickle Cell Solubility See scanned result 12/19/21 05:00 Hemoglobin A See scanned result 12/19/21 05:00 Hemoglobin A2 See scanned result 12/19/21 05:00 Hemoglobin A2 Prime See scanned result 12/19/21 05:00 Hemoglobin C See scanned result 12/19/21 05:00 Hemoglobin D See scanned result 12/19/21 05:00 Hemoglobin E See scanned result 12/19/21 05:00 Hgb F Diffential Stain See scanned result 12/19/21 05:00 Hemoglobin F Quant See scanned result 12/19/21 05:00 Hemoglobin G See scanned result 12/19/21 05:00 Hemoglobin S See scanned result 12/19/21 05:00 Hemoglobin O-Paia See scanned result 12/19/21 05:00 Hemoglobin Barts See scanned result 12/19/21 05:00 Hemoglobin Christian See scanned result 12/19/21 05:00 Variant Hemoglobin See scanned result 12/19/21 05:00 Abnorm Hgb IEF Confirm See scanned result 12/19/21 05:00 Hemoglobin Interpret See scanned result 12/19/21 05:00 Hemoglobinopathy Note See scanned result 12/19/21 05:00 Bryson Bodies Not Reportable 12/19/21 05:00 Haptoglobin 193 mg/dL (43-212) 12/18/21 05:00 Hem Pathologist Commnt Not Reportable 12/19/21 05:00 PT 17.7 Sec. (12.2-14.9) H 12/22/21 14:05 INR 1.30 (0.87-1.13) H 12/22/21 14:05 Fibrinogen 351 mg/dl (211-480) 12/21/21 08:35 Heparin Anti-Xa, Unfract Negative (Negative) 12/17/21 09:30 ABG pH 7.450 pH Units (7.350-7.450) 12/24/21 Unknown POC ABG pCO2 36.0 mmHg (32.0-48.0) 12/21/21 10:20 ABG pCO2 39.1 mm Hg 12/24/21 Unknown POC ABG pO2 126.1 mmHg (83-108) H 12/21/21 10:20 ABG pO2 109.1 mm Hg (80.0-90.0) H 12/24/21 Unknown POC ABG HCO3 24.3 12/21/21 10:20 ABG HCO3 26.6 mmol/L (20.0-26.0) H 12/24/21 Unknown ABG O2 Saturation 98.1 % (95.0-99.0) 12/24/21 Unknown ABG O2 Content 9.4 (0.0-44) 12/24/21 Unknown POC ABG Base Excess 0.6 12/21/21 10:20 ABG Base Excess 2.4 mmol/L (-2.0-3.0) 12/24/21 Unknown ABG Hemoglobin 6.8 gm/dl (12.0-16.0) L 12/24/21 Unknown ABG Oxyhemoglobin 97.4 (94-98) 12/21/21 10:20 ABG Carboxyhemoglobin 1.8 % (0.0-5.0) 12/24/21 Unknown ABG Methemoglobin 0.5 % (0.0-1.5) 12/24/21 Unknown ABG Sodium Not Reportable 12/21/21 10:20 ABG Potassium Not Reportable 12/21/21 10:20 ABG Chloride Not Reportable 12/21/21 10:20 ABG Glucose Not Reportable 12/21/21 10:20 VBG pO2 > 258.0 (25.0-47.0) H 12/15/21 19:50 Oxyhemoglobin 95.8 % (95.0-99.0) 12/24/21 Unknown Carboxyhemoglobin 0.9 (0.5-1.5) 12/21/21 10:20 FiO2 30 % 12/24/21 Unknown FiO2 % 30.0 12/21/21 10:20 Sodium 139 mmol/L (137-145) 12/31/21 Unknown Potassium 3.7 mmol/L (3.6-5.0) 12/31/21 Unknown Chloride 102.9 mmol/L (98-107) 12/31/21 Unknown Carbon Dioxide 31 mmol/L (22-30) H 12/31/21 Unknown Anion Gap 9 mmol/L 12/31/21 Unknown BUN 16 mg/dL (7-17) 12/31/21 Unknown Creatinine 2.7 mg/dL (0.6-1.2) H 12/31/21 Unknown Estimated GFR 21 ml/min 12/31/21 Unknown BUN/Creatinine Ratio 6 % 12/31/21 Unknown Glucose 148 mg/dL (65-100) H 12/31/21 Unknown POC Glucose 114 mg/dL (70-105) H 12/31/21 11:34 Lactic Acid 1.90 mmol/L (0.7-2.0) 12/16/21 05:00 Calcium 8.4 mg/dL (8.4-10.2) 12/31/21 Unknown Phosphorus 4.90 mg/dL (2.5-4.5) H 12/23/21 04:39 Magnesium 1.90 mg/dL (1.7-2.3) 12/23/21 04:39 Iron 13 ug/dL (37-170) L 12/18/21 05:00 TIBC 109 mcg/dL (250-450) L 12/18/21 05:00 Ferritin 383.4 ng/mL (10.0-200.0) H 12/18/21 05:00 Total Bilirubin 0.50 mg/dL (0.1-1.2) 12/27/21 04:00 AST 23 units/L (5-40) 12/27/21 04:00 ALT 10 units/L (7-56) 12/27/21 04:00 Alkaline Phosphatase 222 units/L (35-129) H 12/27/21 04:00 Ammonia 26.0 umol/L (25-60) 12/26/21 Unknown Lactate Dehydrogenase 249 units/L (91-180) H 12/21/21 08:35 Troponin T 0.175 ng/mL (0.00-0.029) H* 12/12/21 04:43 C-Reactive Protein 38.50 mg/dL (0.00-1.30) H 12/15/21 14:40 Total Protein 5.9 g/dL (6.3-8.2) L 12/27/21 04:00 Albumin 1.7 g/dL (3.9-5) L 12/27/21 04:00 Albumin/Globulin Ratio 0.4 % 12/27/21 04:00 Triglycerides 92 mg/dL (2-149) 12/11/21 15:40 Cholesterol 72 mg/dL (50-199) 12/11/21 15:40 LDL Cholesterol Direct 16 mg/dL (50-130) L 12/11/21 15:40 HDL Cholesterol 41 mg/dL (40-59) 12/11/21 15:40 Cholesterol/HDL Ratio 1.75 % 12/11/21 15:40 Serotonin Release Assay See scanned result 12/17/21 09:30 Procalcitonin 46.16 ng/mL (<0.15) 12/15/21 04:11 Arterial Blood Glucose Not Reportable 12/21/21 10:20 Random Vancomycin 15.6 ug/mL (0-40.0) 12/16/21 05:00 Heparin-induced Plt Ab Negative (Negative) 12/17/21 09:30 UF Heparin High Dose 1 % Release 12/17/21 09:30 JAMILAH UFH Low Dose 0.1 0 % Release 12/17/21 09:30 JAMILAH UFH Low Dose 0.5 0 % Release 12/17/21 09:30 C. difficile Tox (PCR) Negative (Negative) 12/27/21 12:30 Hepatitis A IgM Ab Non-reactive (NonReactive) 12/27/21 Unknown Hep Bs Antigen Non-reactive (Negative) 12/27/21 Unknown Hep B Core IgM Ab Non-reactive (NonReactive) 12/27/21 Unknown Hepatitis C Antibody Non-reactive (NonReactive) 12/27/21 Unknown Blood Type O POSITIVE 12/23/21 16:20 Antibody Screen Negative 12/23/21 16:20 Crossmatch See Detail 12/23/21 16:20 Johnson/IV: Voiding Method Incontinent Active Medications - Current Medications Current Medications: Generic Name Dose Route Start Last Admin Trade Name Freq PRN Reason Stop Dose Admin Acetaminophen 650 mg 12/13/21 23:00 12/13/21 23:18 Acetaminophen 650 Mg Rect Supp [place] 650 mg Q4H PRN Administration Pain, Mild (1-3) Acetaminophen 650 mg 12/24/21 14:02 12/31/21 14:16 Acetaminophen 325 Mg/10.15 Ml Oral Liqd Unit Dose FEEDTUBE 650 mg Q6H PRN Administration Pain, Mild (1-3) Hydrocodone Bitart/Acetaminophen 1 each 12/31/21 14:57 Hydrocodone/Acetaminophen 5-325 Mg Tab PO Q6H PRN Pain, Moderate (4-6) Albuterol 2.5 mg 12/11/21 22:14 Albuterol 2.5 Mg/3 Ml Nebu IH Q6HR PRN Wheezing Albuterol/Ipratropium 1 ampul 12/14/21 08:00 12/31/21 11:02 Ipratropium/Albuterol Sulfate 3 Ml Ampul.Neb IH Not Given TIDRT KRISTA Lipase/Protease/Amylase 1 each 12/16/21 11:15 Lipase 10,500/Protease 25,000/Amylase 43,750 (Units) Dr Blanco FEEDTUBE PRN PRN For Clogged Feeding Tube Atorvastatin Calcium 80 mg 12/15/21 22:00 12/30/21 21:40 Atorvastatin 40 Mg Tab FEEDTUBE 80 mg QHS KRISTA Administration Budesonide 0.5 mg 12/13/21 08:00 12/31/21 11:02 Budesonide 0.5 Mg/2 Ml Nebu IH Not Given Q12HRT KRISTA Carvedilol 6.25 mg 12/26/21 10:00 12/31/21 09:46 Carvedilol 6.25 Mg Tab PO 6.25 mg BID KRISTA Administration Dextrose 50 ml 12/11/21 22:23 12/26/21 18:12 Dextrose 50% In Water (25gm) 50 Ml Syringe IV 20 ml Q30MIN PRN Administration Hypoglycemia Protocol Guaifenesin 10 ml 12/27/21 05:30 12/27/21 05:54 Guaifenesin Dm 200/20 Mg Oral Liqd 10 Ml PO 10 ml Q4H PRN Administration Cough Haloperidol Lactate 2.5 mg 12/25/21 11:37 12/28/21 01:35 Haloperidol Lactate 5 Mg/1 Ml Inj IV 2.5 mg Q6H PRN Administration Agitation Hydromorphone HCl 1 mg 12/31/21 14:57 Hydromorphone 1 Mg/1 Ml Inj IV Q4H PRN Pain , Severe (7-10) Hydrophilic Ointment 1 applic 12/16/21 14:30 Lip Therapy Vaseline TP Q2HR PRN Dry Lips Sodium Chloride 100 mls @ 999 mls/hr 12/12/21 12:00 Nacl 0.9% IV ABEL PRN Hypotension Insulin Human Lispro 0 unit 12/15/21 12:00 12/31/21 14:23 Insulin Lispro 100 Unit/Ml SUB-Q Not Given Q6HR [facility] Protocol Isosorbide Dinitrate/Hydralazine 1 each 12/26/21 10:00 12/31/21 14:16 Isosorb Dinit/Hydralazine 20-37.5mg Tab PO 1 each Q8HR KRISTA Administration Lansoprazole 30 mg 12/25/21 10:00 12/31/21 09:45 Lansoprazole 30 Mg Solutab FEEDTUBE 30 mg QDAY KRISTA Administration Levetiracetam 500 mg 12/16/21 18:00 12/30/21 18:19 Levetiracetam 500 Mg/5 Ml Oral Liqd FEEDTUBE 500 mg TuThSa KRISTA Administration Loperamide HCl 2 mg 12/29/21 10:00 12/30/21 09:14 Loperamide 2 Mg Cap PO 2 mg Q2H PRN Administration Diarrhea Midodrine 5 mg 12/24/21 12:00 12/31/21 14:33 Midodrine 5 Mg Tab FEEDTUBE 5 mg TID@0800,1200,1600 [facility] Administration Multi-Ingred Cream/Lotion/Oil/Oint 1 applic 12/16/21 14:10 Mineral Oil/Petrolatum, White Ophth Oint 3.5 Gm OU Q4HR PRN Dry Eye(s) Nitroglycerin 0.4 mg 12/11/21 22:11 Nitroglycerin 0.4 Mg Tab Subl SL Q5M PRN Chest Pain Simple Syrup 15 ml 12/16/21 11:15 Simple Syrup 15 Ml FEEDTUBE PRN PRN Hypoglycemia Simple Syrup 30 ml 12/16/21 11:15 12/26/21 17:10 Simple Syrup 15 Ml FEEDTUBE 30 ml PRN PRN Administration Hypoglycemia Sodium Bicarbonate 325 mg 12/16/21 11:15 Sodium Bicarbonate 325 Mg Tab FEEDTUBE PRN PRN For Clogged Feeding Tube Sodium Chloride 10 ml 12/11/21 22:11 12/30/21 21:40 Sodium Chloride 0.9% 10 Ml Flush Syringe IV 10 ml PRN PRN Administration LINE FLUSH Nutrition/Malnutrition Assess - Dietary Evaluation Nutrition/Malnutrition Findings: Nutrition Notes Start: 12/12/21 11:57 Freq: Status: Active Protocol: Document 12/31/21 12:04 EVERARDO (Rec: 12/31/21 12:44 EVERARDO [id number]) Nutrition Notes Initial or Follow up Reassessment Current Diagnosis CKD (stage V CKD),Coronary Artery Disease,Decubitus( Pressure Ulcer),Hypertension, Heart Failure,Respiratory Failure,Malnutrition Other Pertinent Diagnosis Colitis, ESRD+HD, s/p Septic Shock, Thrombocytopenia, Anemia, NSTEMI, ... Current Diet Mechanical Soft Diet (since D 12/29), D Suppl (from D 12/31) . Labs/Tests 12/31: CO2 31, Crea 2.7, GHlu 148. Pertinent Medications 12/31: Nutritionally unremarkable. Height 4 ft 11 in Weight 64.5 kg [place] Body Weight (kg) 43.18 BMI 28.7 Weight change and time frame 2.6 Kg body weight gain in 1 week reported. Weight Status Overweight Subjective/Other Information RD consult for routine F/U on dietary advancement. Pt is now on PO diet; Pt's PO intake of meals has been Poor (25-50%), according to ADL notes. I will prescribe Dietary Supplements to compensate for poor PO intake of meals and increase Protein intake. Fluid restricted to 1,200 ml/ day and high protein diet recommended, according to Progress notes. SODA JERKER note on 12/29/21 12:03: Swallowing function was reassessed. Patient is safe for a mechanical soft diet with ground meats/thins. Informed the patient's nurse. Fistulogram and replacement took place on 12/29, according to Progress notes. Pt was extubated on 12/24, according to Progress notes. Pt is on Nasal Cannula, O2 saturation @ 95%, according to Physical Assessment History notes. Pt has missing teeth, according to Physical Assessment History notes. Pt present dierrhea since admission, according to Physical Assessment History notes. Percent of energy/protein needs met: Prescribed Mechanical Soft Diet provides for energy/ protein needs (2,048 Kcal/97 g ) during LOS; additionally, Dietary Supplements will compensate for possible poor or insufficient PO intake of meals with 850 Kcal and 38 g of protein. Burn Absent Trauma Absent GI Symptoms Diarrhea Food Allergy No Skin Integrity/Comment Sacral Stage I ulcer, R-UE wound. Current % PO Poor (25-49%) Minimum of two criteria No #1 Nutrition Diagnosis Inadequate oral intake Comments: SODA JERKER note on 12/29/21 12:03: Swallowing function was reassessed. Patient is safe for a mechanical soft diet with ground meats/thins. Informed the patient's nurse. Diagnosis Progress(for reassessment Improved documentation) Is patient on ventilator? No Is Patient Ambulatory and/or Out of Bed No REE-([facility]-confined to bed) 1326.120 Calculation Used for Recommendations [facility] Additional Notes Protein: >1.2 g/Kg ABW; >74 g/ day. Fluids: 1-1.5 L/day, or as per MD. Nutrition Intervention Change Diet Order: Continue Mechanical Soft Diet, as tolerated; eventually, advance to Renal Diet. Add Supplement/Snack (indicate name/kcal Start 8 fl oz Nepro w/ /protein ) CARBSTEADY; BID Provides kCal: 850 Provides Protein (gm) 38 Goal #1 Compensate, through dietary supplementation, for possible poor or insufficient PO intake of meals during LOS. Goal #2 Adjust the dietary intervention to better serve Pt's needs and clinical conditions during LOS. Goal #3 Maintain body weight within +/ -3% of admission body weight during LOS. Follow-Up By: 01/07/22 Additional Comments Continue monitoring food tolerance, %PO intake of meals , and BM.
[2021-12-31] MEDS: HYDROcodone/ACETAMINOPHEN 5-325 MG TAB PO PRN (17:01)
[2022-01-01] MEDS: INSULIN LISPRO 100 UNIT/ML SUB-Q SCH ×5 (00:49→21:12)
[2022-01-01] MEDS: HYDROmorphone 1 MG/1 ML INJ IV PRN ×2 (02:53→20:34)
[2022-01-01] MEDS: ISOSORB DINIT/HYDRALAZINE 20-37.5MG TAB PO SCH ×3 (05:25→21:12)
[2022-01-01 06:25] LABS: Hematocrit 21.7 % (30.3-42.9); Hemoglobin 7.2 gm/dl (10.1-14.3); Mean Corpuscular HGB Conc 33 % (30-34); Mean Corpuscular Volume 82 fl (79-97); Platelet Count 148 K/mm3 (140-440); Red Blood Count 2.64 M/mm3 (3.65-5.03); Red Cell Distribution Width 18.3 % (13.2-15.2)
[2022-01-01 06:49] LABS: Calcium 8.2 mg/dL (8.4-10.2)
[2022-01-01 07:41] LABS: Anisocytosis 1+; Total Cells Counted 100
[2022-01-01 07:42] LABS: Hypochromasia 1+; Platelet Estimate Consistent w Auto; Smudge Cells Few
--- NOTE | 2022-01-01 09:25 | Progress Note ---
Subjective Date of service: 01/01/22 Principal diagnosis: Septic shock ; Bacteremia; ESRD on dialysis; AMS; NSTEMI; HTN; DM II Interval history: Assessment and plan #End-stage kidney disease: Patient will continue to see hemodialysis treatment 3 times a week will continue on Wednesday and Wednesday Monitor dialysis related labs/monitor for any access issues Fluid restriction 1200 cc/day high-protein diet #Access: Permacath was removed due to infection fistula is working well but patient does have swelling #Septic shock echocardiogram did not show any evidence of vegetations, ID following Permacath was removed, admitted with septic shock with gram-positive bacteremia #Hypertension and volume: To monitor and follow #Anemia in end-stage kidney disease: To monitor and follow erythropoietin periodically goal hemoglobin between Thrombocytopenia: HIT negative We will check dialysis related labs periodically, We'll continue to follow and make recommendation for renal standpoint Subjective Patient was seen today for follow-up of multiple renal related issueS She is resting comfortably in bed no acute distress Events of 24 hours vitals labs intake output medications were reviewed Physical examination: Vitals: Reviewed HEENT: No pallor or icterus oral mucosa moist Neck: Supple no JVD no thyromegaly Chest: Bilateral clear to auscultation anteriorly Heart: Regular rate and rhythm S1-S2 heard no S3-S4 Abdomen: Soft nontender no voluntary guarding rigidity rebound Extremity: Dry skin less than 1+ peripheral edema Psychiatric: No evidence of agitation and aggression noted Dermatology: No petechial rashes Labs and x-rays: availabe data reviewed Objective - Vital Signs Vital signs: Vital Signs - 12hr 01/01/22 01/01/22 01/01/22 01:06 03:21 05:25 Temperature 97.5 F L Pulse Rate 77 73 Respiratory 17 Rate Blood Pressure 125/53 120/58 O2 Sat by Pulse 95 Oximetry 01/01/22 08:16 Temperature 98.6 F Pulse Rate 76 Respiratory 18 Rate Blood Pressure 96/53 O2 Sat by Pulse 98 Oximetry - Lab 01/01/22 04:52 01/01/22 04:52 Most recent lab results ABG pH 7.450 pH Units (7.350-7.450) 12/24/21 Unknown ABG pCO2 39.1 mm Hg 12/24/21 Unknown ABG pO2 109.1 mm Hg (80.0-90.0) H 12/24/21 Unknown ABG HCO3 26.6 mmol/L (20.0-26.0) H 12/24/21 Unknown ABG O2 Saturation 98.1 % (95.0-99.0) 12/24/21 Unknown Calcium 8.2 mg/dL (8.4-10.2) L 01/01/22 04:52 Phosphorus 4.90 mg/dL (2.5-4.5) H 12/23/21 04:39 Magnesium 1.90 mg/dL (1.7-2.3) 12/23/21 04:39 Medications & Allergies - Medications Allergies/Adverse Reactions: Allergies No Known Allergies Allergy (Verified 12/11/21 22:19) Home Medications: Home Medications Medication Instructions Recorded Confirmed Last Taken Type Albuterol Sulfate [Proair 2 puff IH Q6HR PRN 11/23/21 12/14/21 Unknown History Digihaler] Calcium Acetate 2 tab PO TID 11/23/21 12/14/21 Unknown History Fluticasone/Umeclidin/Vilanter 1 each IH DAILY 11/23/21 12/14/21 Unknown History [Trelegy Ellipta 100-62.5-25] Furosemide [Lasix TAB] 40 mg PO QDAY 11/23/21 12/14/21 Unknown History Insulin Aspart (Nf) [NovoLOG 55 unit SQ TID 11/23/21 12/14/21 Unknown History Flexpen] Insulin Glargine [Lantus VIAL] 25 units SQ QHS 11/23/21 12/14/21 Unknown History Omeprazole 20 mg PO DAILY 11/23/21 12/14/21 Unknown History Spironolactone [Aldactone] 100 mg PO QDAY 11/23/21 12/14/21 Unknown History lisinopriL [Lisinopril] 20 mg PO BID 11/23/21 12/14/21 12/06/21 History 500 MG Docusate Sodium [Colace CAP] 100 mg PO BID PRN #60 capsule 11/24/21 12/14/21 Unknown Rx Aspirin EC [Halfprin EC] 81 mg PO DAILY 90 Days #90 tablet 11/26/21 12/14/21 Unknown Rx Aspirin [Adult Aspirin] 81 mg PO DAILY 90 Days #90 tab 11/26/21 12/14/21 Unknown Rx ISOSORBIDE MONOnitrate [Imdur ER] 60 mg PO QDAY 90 Days #90 tab 11/26/21 12/14/21 Unknown Rx Sevelamer Carbonate [Renvela] 800 mg PO TIDWM 90 Days #270 tab 11/26/21 12/14/21 Unknown Rx amLODIPine 10 mg PO DAILY 90 Days #90 tab 11/26/21 12/14/21 Unknown Rx carvediloL [Coreg] 25 mg PO BID 90 Days #180 tab 11/26/21 12/14/21 Unknown Rx Atorvastatin Calcium [Lipitor] 80 mg PO QHS 90 Days #90 tab 11/27/21 12/14/21 Unknown Rx levETIRAcetam [Keppra TAB] 500 mg PO 3XW 12/14/21 12/14/21 12/06/21 History 500 MG Active Medications: Generic Name Dose Route Start Last Admin Trade Name Freq PRN Reason Stop Dose Admin Acetaminophen 650 mg 12/13/21 23:00 12/13/21 23:18 Acetaminophen 650 Mg Rect Supp DE 650 mg Q4H PRN Administration Pain, Mild (1-3) Acetaminophen 650 mg 12/24/21 14:02 12/31/21 14:16 Acetaminophen 325 Mg/10.15 Ml Oral Liqd Unit Dose FEEDTUBE 650 mg Q6H PRN Administration Pain, Mild (1-3) Hydrocodone Bitart/Acetaminophen 1 each 12/31/21 14:57 12/31/21 17:01 Hydrocodone/Acetaminophen 5-325 Mg Tab PO 1 each Q6H PRN Administration Pain, Moderate (4-6) Albuterol 2.5 mg 12/11/21 22:14 Albuterol 2.5 Mg/3 Ml Nebu IH Q6HR PRN Wheezing Albuterol/Ipratropium 1 ampul 12/14/21 08:00 12/31/21 20:20 Ipratropium/Albuterol Sulfate 3 Ml Ampul.Neb IH 1 ampul TIDRT KRISTA Administration Lipase/Protease/Amylase 1 each 12/16/21 11:15 Lipase 10,500/Protease 25,000/Amylase 43,750 (Units) Dr Blanco FEEDTUBE PRN PRN For Clogged Feeding Tube Atorvastatin Calcium 80 mg 12/15/21 22:00 12/31/21 22:34 Atorvastatin 40 Mg Tab FEEDTUBE 80 mg QHS KRISTA Administration Budesonide 0.5 mg 12/13/21 08:00 12/31/21 20:20 Budesonide 0.5 Mg/2 Ml Nebu IH 0.5 mg Q12HRT KRISTA Administration Carvedilol 6.25 mg 12/26/21 10:00 12/31/21 22:34 Carvedilol 6.25 Mg Tab PO 6.25 mg BID KRISTA Administration Dextrose 50 ml 12/11/21 22:23 12/26/21 18:12 Dextrose 50% In Water (25gm) 50 Ml Syringe IV 20 ml Q30MIN PRN Administration Hypoglycemia Protocol Guaifenesin 10 ml 12/27/21 05:30 12/27/21 05:54 Guaifenesin Dm 200/20 Mg Oral Liqd 10 Ml PO 10 ml Q4H PRN Administration Cough Haloperidol Lactate 2.5 mg 12/25/21 11:37 12/28/21 01:35 Haloperidol Lactate 5 Mg/1 Ml Inj IV 2.5 mg Q6H PRN Administration Agitation Hydromorphone HCl 1 mg 12/31/21 14:57 01/01/22 02:53 Hydromorphone 1 Mg/1 Ml Inj IV 1 mg Q4H PRN Administration Pain , Severe (7-10) Hydrophilic Ointment 1 applic 12/16/21 14:30 Lip Therapy Vaseline TP Q2HR PRN Dry Lips Sodium Chloride 100 mls @ 999 mls/hr 12/12/21 12:00 Nacl 0.9% IV ABEL PRN Hypotension Insulin Human Lispro 0 unit 01/01/22 07:30 Insulin Lispro 100 Unit/Ml SUB-Q ACHS KRISTA Protocol Isosorbide Dinitrate/Hydralazine 1 each 12/26/21 10:00 01/01/22 05:25 Isosorb Dinit/Hydralazine 20-37.5mg Tab PO 1 each Q8HR KRISTA Administration Lansoprazole 30 mg 12/25/21 10:00 12/31/21 09:45 Lansoprazole 30 Mg Solutab FEEDTUBE 30 mg QDAY KRISTA Administration Levetiracetam 500 mg 12/16/21 18:00 12/30/21 18:19 Levetiracetam 500 Mg/5 Ml Oral Liqd FEEDTUBE 500 mg TuThSa KRISTA Administration Loperamide HCl 2 mg 12/29/21 10:00 12/30/21 09:14 Loperamide 2 Mg Cap PO 2 mg Q2H PRN Administration Diarrhea Midodrine 5 mg 12/24/21 12:00 12/31/21 19:00 Midodrine 5 Mg Tab FEEDTUBE 5 mg TID@0800,1200,1600 KRISTA Administration Multi-Ingred Cream/Lotion/Oil/Oint 1 applic 12/16/21 14:10 Mineral Oil/Petrolatum, White Ophth Oint 3.5 Gm OU Q4HR PRN Dry Eye(s) Nitroglycerin 0.4 mg 12/11/21 22:11 Nitroglycerin 0.4 Mg Tab Subl SL Q5M PRN Chest Pain Simple Syrup 15 ml 12/16/21 11:15 Simple Syrup 15 Ml FEEDTUBE PRN PRN Hypoglycemia Simple Syrup 30 ml 12/16/21 11:15 12/26/21 17:10 Simple Syrup 15 Ml FEEDTUBE 30 ml PRN PRN Administration Hypoglycemia Sodium Bicarbonate 325 mg 12/16/21 11:15 Sodium Bicarbonate 325 Mg Tab FEEDTUBE PRN PRN For Clogged Feeding Tube Sodium Chloride 10 ml 12/11/21 22:11 12/30/21 21:40 Sodium Chloride 0.9% 10 Ml Flush Syringe IV 10 ml PRN PRN Administration LINE FLUSH
--- NOTE | 2022-01-01 09:28 | Progress Note ---
Assessment and Plan Septic shock Bacteremia with gram-positive cocci End-stage renal disease on dialysis Colitis Acute toxic metabolic encephalopathy Thrombocytopenia Non-ST elevation myocardial infarction A-Fib with RVR Hypertension Diabetes type 2 Anemia that is normocytic - RN asked to call attending for moderate pain analgesia - prn supplemental oxygen for target O2 sat's > 90% acutely (1L NC now) - continue wound care per RN / WCN - continue care as below otherwise; - VAP bundle addressed - continue lung protective strategies - continue bronchodilators with pulmonary hygiene per RT - wean per pulmonary driven protocols otherwise - continue HD/UF for toxin and volume clearance - avoid nephrotoxins, renally dose all medications - continue to avoid benzodiazepine's, reduce the possibility of delirium - prn analgesia per pain score - Maintenance of sleep-wake cycle, avoid delirium - continue enteral nutritional support at goal rate as tolerated - G.I. & VTE prophylaxis - PT/OT/ROM exercises - continue mobility protocols for pressure ulcer prophylaxis - Monitor hemodynamics closely - continue other care per attending / other consultants - discharge planning ongoing concurrently .... Re-evaluate in am & prn Subjective Date of service: 01/01/22 Principal diagnosis: Septic shock ; Bacteremia; ESRD on dialysis; AMS; NSTEMI; HTN; DM II Interval history: Patient is seen today for: Septic shock ; gm +ve Bacteremia; ESRD on dialysis; AMS; NSTEMI; Hypertension; DM II Seen and examined at bedside; 24hour events reviewed; nursing and respiratory care staff consulted; no adverse overnight events reported to me; resting peacefully in bed; Objective Vital Signs - 12hr 01/01/22 01/01/22 01/01/22 01:06 03:21 05:25 Temperature 97.5 F L Pulse Rate 77 73 Respiratory 17 Rate Blood Pressure 125/53 120/58 O2 Sat by Pulse 95 Oximetry 01/01/22 08:16 Temperature 98.6 F Pulse Rate 76 Respiratory 18 Rate Blood Pressure 96/53 O2 Sat by Pulse 98 Oximetry Constitutional: no acute distress, other (elderly female with normal respiratory effort at rest) Eyes: non-icteric ENT: oropharynx moist, other (extubated) Neck: supple, no JVD Effort: normal Ascultation: Bilateral: rhonchi (scant, bases) Percussion: Bilateral: not dull Cardiovascular: regular rate and rhythm Gastrointestinal: normoactive bowel sounds, soft, non-tender, non-distended (protuberant) Integumentary: rash (right groin / ? scar), other (Left upper extremity AV graft; right forearm blisters (open and closed) and induration; no pus) Extremities: no cyanosis, pulses normal, no ischemia or petechiae, edema (right upper extremity) Neurologic: non-focal exam (grossly), pupils equal and round, CN II-XII normal, motor strength normal and Psychiatric: mood appropriate, affect normal CBC and BMP: 01/01/22 04:52 01/01/22 04:52 ABG, PT/INR, D-dimer: ABG ABG pH 7.450 pH Units (7.350-7.450) 12/24/21 Unknown POC ABG pCO2 36.0 mmHg (32.0-48.0) 12/21/21 10:20 ABG pCO2 39.1 mm Hg 12/24/21 Unknown POC ABG pO2 126.1 mmHg (83-108) H 12/21/21 10:20 ABG pO2 109.1 mm Hg (80.0-90.0) H 12/24/21 Unknown POC ABG HCO3 24.3 12/21/21 10:20 ABG O2 Saturation 98.1 % (95.0-99.0) 12/24/21 Unknown PT/INR, D-dimer PT 17.7 Sec. (12.2-14.9) H 12/22/21 14:05 INR 1.30 (0.87-1.13) H 12/22/21 14:05 Abnormal lab findings: Abnormal Labs 12/11/21 12/11/21 12/12/21 14:52 15:40 04:43 WBC RBC 3.57 L Hgb 9.4 L Hct 29.5 L MCH 26 L 27 L RDW 17.8 H 17.9 H Plt Count 119 L 110 L Lymph % (Auto) 4.0 L [place] % (Auto) Lymph # (Auto) 0.3 L [place] # (Auto) Seg Neutrophils % 90.0 H Seg Neuts % (Manual) Lymphocytes % (Manual) Monocytes % (Manual) Basophils % (Manual) Nucleated RBC % Seg Neutrophils # Seg Neutrophils # Man Lymphocytes # (Manual) Percent Retic PT INR Fibrinogen ABG pH POC ABG pO2 ABG pO2 ABG HCO3 ABG O2 Saturation ABG Base Excess ABG Hemoglobin VBG pO2 Oxyhemoglobin Sodium Potassium Chloride Carbon Dioxide 18 L BUN 76 H Creatinine 9.2 H Glucose POC Glucose Lactic Acid Calcium 7.7 L Phosphorus Magnesium Iron TIBC Ferritin Alkaline Phosphatase 237 H Lactate Dehydrogenase Troponin T 0.168 H* C-Reactive Protein Total Protein Albumin 3.6 L LDL Cholesterol Direct 16 L Crossmatch 12/12/21 12/12/21 12/12/21 04:43 04:43 08:49 WBC RBC Hgb Hct MCH RDW Plt Count Lymph % (Auto) [place] % (Auto) Lymph # (Auto) [place] # (Auto) Seg Neutrophils % Seg Neuts % (Manual) Lymphocytes % (Manual) Monocytes % (Manual) Basophils % (Manual) Nucleated RBC % Seg Neutrophils # Seg Neutrophils # Man Lymphocytes # (Manual) Percent Retic PT INR Fibrinogen ABG pH POC ABG pO2 ABG pO2 ABG HCO3 ABG O2 Saturation ABG Base Excess ABG Hemoglobin VBG pO2 Oxyhemoglobin Sodium 136 L Potassium Chloride 96.0 L Carbon Dioxide BUN 85 H Creatinine 9.6 H Glucose 57 L POC Glucose 47 L Lactic Acid Calcium 7.8 L Phosphorus Magnesium Iron TIBC Ferritin Alkaline Phosphatase Lactate Dehydrogenase Troponin T 0.175 H* C-Reactive Protein Total Protein Albumin LDL Cholesterol Direct Crossmatch 12/12/21 12/13/21 12/13/21 11:12 07:30 07:30 WBC RBC Hgb 9.7 L Hct 30.0 L MCH 27 L RDW 18.0 H Plt Count 99 L Lymph % (Auto) 4.8 L [place] % (Auto) Lymph # (Auto) 0.3 L [place] # (Auto) Seg Neutrophils % 88.2 H Seg Neuts % (Manual) Lymphocytes % (Manual) Monocytes % (Manual) Basophils % (Manual) Nucleated RBC % Seg Neutrophils # Seg Neutrophils # Man Lymphocytes # (Manual) Percent Retic PT INR Fibrinogen ABG pH POC ABG pO2 ABG pO2 ABG HCO3 ABG O2 Saturation ABG Base Excess ABG Hemoglobin VBG pO2 Oxyhemoglobin Sodium Potassium 5.1 H Chloride 97.8 L Carbon Dioxide 16 L BUN 92 H Creatinine 10.6 H Glucose 121 H POC Glucose 64 L Lactic Acid Calcium 7.6 L Phosphorus Magnesium Iron TIBC Ferritin Alkaline Phosphatase Lactate Dehydrogenase Troponin T C-Reactive Protein Total Protein Albumin LDL Cholesterol Direct Crossmatch 12/13/21 12/13/21 12/13/21 08:06 11:32 16:59 WBC RBC Hgb Hct MCH RDW Plt Count Lymph % (Auto) [place] % (Auto) Lymph # (Auto) [place] # (Auto) Seg Neutrophils % Seg Neuts % (Manual) Lymphocytes % (Manual) Monocytes % (Manual) Basophils % (Manual) Nucleated RBC % Seg Neutrophils # Seg Neutrophils # Man Lymphocytes # (Manual) Percent Retic PT INR Fibrinogen ABG pH POC ABG pO2 ABG pO2 ABG HCO3 ABG O2 Saturation ABG Base Excess ABG Hemoglobin VBG pO2 Oxyhemoglobin Sodium Potassium Chloride Carbon Dioxide BUN Creatinine Glucose POC Glucose 118 H 128 H 130 H Lactic Acid Calcium Phosphorus Magnesium Iron TIBC Ferritin Alkaline Phosphatase Lactate Dehydrogenase Troponin T C-Reactive Protein Total Protein Albumin LDL Cholesterol Direct Crossmatch 12/13/21 12/14/21 12/14/21 20:16 11:10 11:10 WBC RBC Hgb 9.9 L Hct MCH 27 L RDW 18.1 H Plt Count 82 L Lymph % (Auto) 5.8 L [place] % (Auto) Lymph # (Auto) 0.4 L [place] # (Auto) Seg Neutrophils % 88.3 H Seg Neuts % (Manual) Lymphocytes % (Manual) Monocytes % (Manual) Basophils % (Manual) Nucleated RBC % Seg Neutrophils # Seg Neutrophils # Man Lymphocytes # (Manual) Percent Retic PT INR Fibrinogen ABG pH POC ABG pO2 ABG pO2 ABG HCO3 ABG O2 Saturation ABG Base Excess ABG Hemoglobin VBG pO2 Oxyhemoglobin Sodium Potassium Chloride Carbon Dioxide 21 L BUN 57 H Creatinine 7.1 H Glucose 105 H POC Glucose 113 H Lactic Acid Calcium Phosphorus Magnesium Iron TIBC Ferritin Alkaline Phosphatase Lactate Dehydrogenase Troponin T C-Reactive Protein Total Protein Albumin LDL Cholesterol Direct Crossmatch 12/14/21 12/14/21 12/15/21 11:46 16:41 04:11 WBC RBC Hgb 9.9 L Hct 30.0 L MCH 27 L RDW 18.4 H Plt Count 57 L Lymph % (Auto) [place] % (Auto) Lymph # (Auto) [place] # (Auto) Seg Neutrophils % Seg Neuts % (Manual) Lymphocytes % (Manual) 9.0 L Monocytes % (Manual) 10.0 H Basophils % (Manual) Nucleated RBC % Seg Neutrophils # Seg Neutrophils # Man Lymphocytes # (Manual) 0.6 L Percent Retic PT INR Fibrinogen ABG pH POC ABG pO2 ABG pO2 ABG HCO3 ABG O2 Saturation ABG Base Excess ABG Hemoglobin VBG pO2 Oxyhemoglobin Sodium Potassium Chloride Carbon Dioxide BUN Creatinine Glucose POC Glucose 108 H 111 H Lactic Acid Calcium Phosphorus Magnesium Iron TIBC Ferritin Alkaline Phosphatase Lactate Dehydrogenase Troponin T C-Reactive Protein Total Protein Albumin LDL Cholesterol Direct Crossmatch 12/15/21 12/15/21 12/15/21 04:11 08:48 10:02 WBC RBC Hgb Hct MCH RDW Plt Count Lymph % (Auto) [place] % (Auto) Lymph # (Auto) [place] # (Auto) Seg Neutrophils % Seg Neuts % (Manual) Lymphocytes % (Manual) Monocytes % (Manual) Basophils % (Manual) Nucleated RBC % Seg Neutrophils # Seg Neutrophils # Man Lymphocytes # (Manual) Percent Retic PT INR Fibrinogen ABG pH POC ABG pO2 ABG pO2 ABG HCO3 ABG O2 Saturation ABG Base Excess ABG Hemoglobin VBG pO2 Oxyhemoglobin Sodium Potassium Chloride Carbon Dioxide 19 L BUN 68 H Creatinine 7.6 H Glucose POC Glucose 68 L 65 L Lactic Acid Calcium 8.1 L Phosphorus Magnesium Iron TIBC Ferritin Alkaline Phosphatase Lactate Dehydrogenase Troponin T C-Reactive Protein Total Protein Albumin LDL Cholesterol Direct Crossmatch 12/15/21 12/15/21 12/15/21 10:20 10:51 14:40 WBC RBC Hgb Hct MCH RDW Plt Count Lymph % (Auto) [place] % (Auto) Lymph # (Auto) [place] # (Auto) Seg Neutrophils % Seg Neuts % (Manual) Lymphocytes % (Manual) Monocytes % (Manual) Basophils % (Manual) Nucleated RBC % Seg Neutrophils # Seg Neutrophils # Man Lymphocytes # (Manual) Percent Retic PT INR Fibrinogen ABG pH POC ABG pO2 ABG pO2 ABG HCO3 ABG O2 Saturation ABG Base Excess ABG Hemoglobin VBG pO2 Oxyhemoglobin Sodium Potassium Chloride Carbon Dioxide BUN Creatinine Glucose POC Glucose 59 L 60 L Lactic Acid 2.50 H* Calcium Phosphorus Magnesium Iron TIBC Ferritin Alkaline Phosphatase Lactate Dehydrogenase Troponin T C-Reactive Protein Total Protein Albumin LDL Cholesterol Direct Crossmatch 12/15/21 12/15/21 12/16/21 14:40 19:50 05:00 WBC 12.4 H RBC Hgb 9.6 L Hct 29.4 L MCH 26 L RDW 18.1 H Plt Count 40 L Lymph % (Auto) [place] % (Auto) Lymph # (Auto) [place] # (Auto) Seg Neutrophils % Seg Neuts % (Manual) 95.0 H Lymphocytes % (Manual) 5.0 L Monocytes % (Manual) Basophils % (Manual) Nucleated RBC % Seg Neutrophils # Seg Neutrophils # Man 11.8 H Lymphocytes # (Manual) 0.6 L Percent Retic PT INR Fibrinogen ABG pH POC ABG pO2 ABG pO2 463.3 H ABG HCO3 ABG O2 Saturation 99.6 H ABG Base Excess ABG Hemoglobin 10.9 L VBG pO2 > 258.0 H Oxyhemoglobin Sodium Potassium Chloride Carbon Dioxide BUN Creatinine Glucose POC Glucose Lactic Acid Calcium Phosphorus Magnesium Iron TIBC Ferritin Alkaline Phosphatase Lactate Dehydrogenase Troponin T C-Reactive Protein 38.50 H Total Protein Albumin LDL Cholesterol Direct Crossmatch 12/16/21 12/16/21 12/16/21 05:00 06:15 09:58 WBC RBC Hgb Hct MCH RDW Plt Count Lymph % (Auto) [place] % (Auto) Lymph # (Auto) [place] # (Auto) Seg Neutrophils % Seg Neuts % (Manual) Lymphocytes % (Manual) Monocytes % (Manual) Basophils % (Manual) Nucleated RBC % Seg Neutrophils # Seg Neutrophils # Man Lymphocytes # (Manual) Percent Retic PT INR Fibrinogen ABG pH POC ABG pO2 ABG pO2 48.0 L ABG HCO3 ABG O2 Saturation 80.5 L ABG Base Excess -2.9 L ABG Hemoglobin 11.2 L VBG pO2 Oxyhemoglobin 78.8 L Sodium Potassium Chloride Carbon Dioxide BUN 75 H Creatinine 7.7 H Glucose POC Glucose 67 L Lactic Acid Calcium 8.3 L Phosphorus Magnesium Iron TIBC Ferritin Alkaline Phosphatase Lactate Dehydrogenase Troponin T C-Reactive Protein Total Protein Albumin LDL Cholesterol Direct Crossmatch 12/16/21 12/16/21 12/17/21 11:06 23:24 04:00 WBC 12.3 H RBC 3.32 L Hgb 8.8 L Hct 26.5 L MCH 26 L RDW 18.0 H Plt Count 27 L Lymph % (Auto) 5.9 L [place] % (Auto) Lymph # (Auto) 0.7 L [place] # (Auto) Seg Neutrophils % 88.3 H Seg Neuts % (Manual) Lymphocytes % (Manual) Monocytes % (Manual) Basophils % (Manual) Nucleated RBC % Seg Neutrophils # 10.9 H Seg Neutrophils # Man Lymphocytes # (Manual) Percent Retic PT INR Fibrinogen ABG pH POC ABG pO2 ABG pO2 137.7 H ABG HCO3 ABG O2 Saturation ABG Base Excess ABG Hemoglobin 9.9 L VBG pO2 Oxyhemoglobin Sodium Potassium Chloride Carbon Dioxide BUN Creatinine Glucose POC Glucose 110 H Lactic Acid Calcium Phosphorus Magnesium Iron TIBC Ferritin Alkaline Phosphatase Lactate Dehydrogenase Troponin T C-Reactive Protein Total Protein Albumin LDL Cholesterol Direct Crossmatch 12/17/21 12/17/21 12/17/21 04:30 04:30 11:18 WBC RBC Hgb Hct MCH RDW Plt Count Lymph % (Auto) [place] % (Auto) Lymph # (Auto) [place] # (Auto) Seg Neutrophils % Seg Neuts % (Manual) Lymphocytes % (Manual) Monocytes % (Manual) Basophils % (Manual) Nucleated RBC % Seg Neutrophils # Seg Neutrophils # Man Lymphocytes # (Manual) Percent Retic PT INR Fibrinogen ABG pH POC ABG pO2 ABG pO2 ABG HCO3 ABG O2 Saturation ABG Base Excess ABG Hemoglobin VBG pO2 Oxyhemoglobin Sodium Potassium Chloride Carbon Dioxide BUN 43 H Creatinine 5.0 H Glucose 129 H POC Glucose 149 H Lactic Acid Calcium 7.8 L Phosphorus 1.90 L Magnesium 1.60 L Iron TIBC Ferritin Alkaline Phosphatase Lactate Dehydrogenase Troponin T C-Reactive Protein Total Protein Albumin LDL Cholesterol Direct Crossmatch 12/17/21 12/17/21 12/17/21 14:35 16:58 18:32 WBC RBC Hgb Hct MCH RDW Plt Count Lymph % (Auto) [place] % (Auto) Lymph # (Auto) [place] # (Auto) Seg Neutrophils % Seg Neuts % (Manual) Lymphocytes % (Manual) Monocytes % (Manual) Basophils % (Manual) Nucleated RBC % Seg Neutrophils # Seg Neutrophils # Man Lymphocytes # (Manual) Percent Retic PT 17.4 H INR 1.27 H Fibrinogen 486 H ABG pH 7.316 L POC ABG pO2 ABG pO2 74.0 L ABG HCO3 ABG O2 Saturation 93.7 L ABG Base Excess -3.3 L ABG Hemoglobin 8.8 L VBG pO2 Oxyhemoglobin 91.7 L Sodium Potassium Chloride Carbon Dioxide BUN Creatinine Glucose POC Glucose 219 H Lactic Acid Calcium Phosphorus Magnesium Iron TIBC Ferritin Alkaline Phosphatase Lactate Dehydrogenase Troponin T C-Reactive Protein Total Protein Albumin LDL Cholesterol Direct Crossmatch 12/17/21 12/18/21 12/18/21 23:19 05:00 05:00 WBC 15.3 H RBC 3.25 L Hgb 8.4 L Hct 25.7 L MCH 26 L RDW 18.2 H Plt Count 28 L Lymph % (Auto) [place] % (Auto) Lymph # (Auto) [place] # (Auto) Seg Neutrophils % Seg Neuts % (Manual) 99.0 H Lymphocytes % (Manual) 1.0 L Monocytes % (Manual) Basophils % (Manual) Nucleated RBC % 1.0 H Seg Neutrophils # Seg Neutrophils # Man 15.1 H Lymphocytes # (Manual) 0.2 L Percent Retic 0.37 L PT INR Fibrinogen ABG pH POC ABG pO2 ABG pO2 ABG HCO3 ABG O2 Saturation ABG Base Excess ABG Hemoglobin VBG pO2 Oxyhemoglobin Sodium 135 L Potassium Chloride Carbon Dioxide 20 L BUN 53 H Creatinine 5.2 H Glucose 307 H POC Glucose 313 H Lactic Acid Calcium 8.0 L Phosphorus Magnesium Iron 13 L TIBC 109 L Ferritin Alkaline Phosphatase Lactate Dehydrogenase Troponin T C-Reactive Protein Total Protein Albumin LDL Cholesterol Direct Crossmatch 12/18/21 12/18/21 12/18/21 05:00 05:00 09:00 WBC RBC Hgb Hct MCH RDW Plt Count Lymph % (Auto) [place] % (Auto) Lymph # (Auto) [place] # (Auto) Seg Neutrophils % Seg Neuts % (Manual) Lymphocytes % (Manual) Monocytes % (Manual) Basophils % (Manual) Nucleated RBC % Seg Neutrophils # Seg Neutrophils # Man Lymphocytes # (Manual) Percent Retic PT INR Fibrinogen 481 H ABG pH POC ABG pO2 ABG pO2 50.2 L ABG HCO3 ABG O2 Saturation 81.7 L ABG Base Excess -3.6 L ABG Hemoglobin 8.0 L VBG pO2 Oxyhemoglobin 80.0 L Sodium Potassium Chloride Carbon Dioxide BUN Creatinine Glucose POC Glucose Lactic Acid Calcium Phosphorus Magnesium Iron TIBC Ferritin 383.4 H Alkaline Phosphatase Lactate Dehydrogenase Troponin T C-Reactive Protein Total Protein Albumin LDL Cholesterol Direct Crossmatch 12/18/21 12/18/21 12/18/21 10:56 11:10 12:00 WBC RBC Hgb Hct MCH RDW Plt Count Lymph % (Auto) [place] % (Auto) Lymph # (Auto) [place] # (Auto) Seg Neutrophils % Seg Neuts % (Manual) Lymphocytes % (Manual) Monocytes % (Manual) Basophils % (Manual) Nucleated RBC % Seg Neutrophils # Seg Neutrophils # Man Lymphocytes # (Manual) Percent Retic PT INR Fibrinogen ABG pH POC ABG pO2 ABG pO2 92.7 H ABG HCO3 19.8 L ABG O2 Saturation ABG Base Excess -3.8 L ABG Hemoglobin 6.6 L VBG pO2 Oxyhemoglobin Sodium Potassium Chloride Carbon Dioxide BUN Creatinine Glucose POC Glucose 190 H Lactic Acid Calcium Phosphorus 2.40 L D Magnesium Iron TIBC Ferritin Alkaline Phosphatase Lactate Dehydrogenase Troponin T C-Reactive Protein Total Protein Albumin LDL Cholesterol Direct Crossmatch 12/18/21 12/18/21 12/18/21 18:06 20:00 23:05 WBC 19.2 H RBC 3.51 L Hgb 8.8 L Hct 27.8 L MCH 25 L RDW 18.1 H Plt Count 34 L Lymph % (Auto) [place] % (Auto) Lymph # (Auto) [place] # (Auto) Seg Neutrophils % Seg Neuts % (Manual) Lymphocytes % (Manual) Monocytes % (Manual) Basophils % (Manual) Nucleated RBC % Seg Neutrophils # Seg Neutrophils # Man Lymphocytes # (Manual) Percent Retic PT INR Fibrinogen ABG pH POC ABG pO2 ABG pO2 62.5 L ABG HCO3 26.6 H ABG O2 Saturation 91.7 L ABG Base Excess ABG Hemoglobin 8.4 L VBG pO2 Oxyhemoglobin 89.9 L Sodium Potassium Chloride Carbon Dioxide BUN Creatinine Glucose POC Glucose 156 H Lactic Acid Calcium Phosphorus Magnesium Iron TIBC Ferritin Alkaline Phosphatase Lactate Dehydrogenase Troponin T C-Reactive Protein Total Protein Albumin LDL Cholesterol Direct Crossmatch 12/18/21 12/19/21 12/19/21 23:54 05:00 05:00 WBC 18.9 H RBC 3.29 L Hgb 8.4 L Hct 26.0 L MCH 26 L RDW 18.2 H Plt Count 34 L Lymph % (Auto) [place] % (Auto) Lymph # (Auto) [place] # (Auto) Seg Neutrophils % Seg Neuts % (Manual) 93.0 H Lymphocytes % (Manual) 2.0 L Monocytes % (Manual) Basophils % (Manual) Nucleated RBC % Seg Neutrophils # Seg Neutrophils # Man 17.6 H Lymphocytes # (Manual) 0.4 L Percent Retic PT INR Fibrinogen ABG pH POC ABG pO2 ABG pO2 ABG HCO3 ABG O2 Saturation ABG Base Excess ABG Hemoglobin VBG pO2 Oxyhemoglobin Sodium Potassium Chloride Carbon Dioxide BUN 30 H Creatinine 3.1 H Glucose 155 H POC Glucose 122 H Lactic Acid Calcium 8.2 L Phosphorus Magnesium Iron TIBC Ferritin Alkaline Phosphatase Lactate Dehydrogenase Troponin T C-Reactive Protein Total Protein Albumin LDL Cholesterol Direct Crossmatch 12/19/21 12/19/21 12/19/21 05:29 11:41 17:48 WBC RBC Hgb Hct MCH RDW Plt Count Lymph % (Auto) [place] % (Auto) Lymph # (Auto) [place] # (Auto) Seg Neutrophils % Seg Neuts % (Manual) Lymphocytes % (Manual) Monocytes % (Manual) Basophils % (Manual) Nucleated RBC % Seg Neutrophils # Seg Neutrophils # Man Lymphocytes # (Manual) Percent Retic PT INR Fibrinogen ABG pH POC ABG pO2 ABG pO2 ABG HCO3 ABG O2 Saturation ABG Base Excess ABG Hemoglobin VBG pO2 Oxyhemoglobin Sodium Potassium Chloride Carbon Dioxide BUN Creatinine Glucose POC Glucose 153 H 164 H 113 H Lactic Acid Calcium Phosphorus Magnesium Iron TIBC Ferritin Alkaline Phosphatase Lactate Dehydrogenase Troponin T C-Reactive Protein Total Protein Albumin LDL Cholesterol Direct Crossmatch 12/19/21 12/20/21 12/20/21 23:53 04:45 04:45 WBC 15.0 H RBC 3.39 L Hgb 8.4 L Hct 26.8 L MCH 25 L RDW 17.8 H Plt Count 36 L Lymph % (Auto) [place] % (Auto) Lymph # (Auto) [place] # (Auto) Seg Neutrophils % Seg Neuts % (Manual) Lymphocytes % (Manual) Monocytes % (Manual) Basophils % (Manual) Nucleated RBC % Seg Neutrophils # Seg Neutrophils # Man Lymphocytes # (Manual) Percent Retic PT INR Fibrinogen ABG pH POC ABG pO2 ABG pO2 ABG HCO3 ABG O2 Saturation ABG Base Excess ABG Hemoglobin VBG pO2 Oxyhemoglobin Sodium 135 L Potassium Chloride 96.1 L Carbon Dioxide BUN 48 H Creatinine 3.9 H Glucose 188 H POC Glucose 157 H Lactic Acid Calcium 8.1 L Phosphorus Magnesium Iron TIBC Ferritin Alkaline Phosphatase Lactate Dehydrogenase Troponin T C-Reactive Protein Total Protein Albumin LDL Cholesterol Direct Crossmatch 12/20/21 12/20/21 12/20/21 05:07 11:13 16:35 WBC RBC Hgb Hct MCH RDW Plt Count Lymph % (Auto) [place] % (Auto) Lymph # (Auto) [place] # (Auto) Seg Neutrophils % Seg Neuts % (Manual) Lymphocytes % (Manual) Monocytes % (Manual) Basophils % (Manual) Nucleated RBC % Seg Neutrophils # Seg Neutrophils # Man Lymphocytes # (Manual) Percent Retic PT INR Fibrinogen ABG pH POC ABG pO2 ABG pO2 ABG HCO3 ABG O2 Saturation ABG Base Excess ABG Hemoglobin VBG pO2 Oxyhemoglobin Sodium Potassium Chloride Carbon Dioxide BUN Creatinine Glucose POC Glucose 169 H 198 H 198 H Lactic Acid Calcium Phosphorus Magnesium Iron TIBC Ferritin Alkaline Phosphatase Lactate Dehydrogenase Troponin T C-Reactive Protein Total Protein Albumin LDL Cholesterol Direct Crossmatch 12/20/21 12/21/21 12/21/21 23:50 05:58 08:00 WBC 16.7 H RBC Hgb 9.3 L Hct 29.2 L MCH 25 L RDW 18.5 H Plt Count 62 L Lymph % (Auto) [place] % (Auto) Lymph # (Auto) [place] # (Auto) Seg Neutrophils % Seg Neuts % (Manual) Lymphocytes % (Manual) Monocytes % (Manual) Basophils % (Manual) Nucleated RBC % Seg Neutrophils # Seg Neutrophils # Man Lymphocytes # (Manual) Percent Retic PT INR Fibrinogen ABG pH POC ABG pO2 ABG pO2 ABG HCO3 ABG O2 Saturation ABG Base Excess ABG Hemoglobin VBG pO2 Oxyhemoglobin Sodium Potassium Chloride Carbon Dioxide BUN Creatinine Glucose POC Glucose 176 H 185 H Lactic Acid Calcium Phosphorus Magnesium Iron TIBC Ferritin Alkaline Phosphatase Lactate Dehydrogenase Troponin T C-Reactive Protein Total Protein Albumin LDL Cholesterol Direct Crossmatch 12/21/21 12/21/21 12/21/21 08:35 08:35 10:20 WBC RBC Hgb Hct MCH RDW Plt Count Lymph % (Auto) [place] % (Auto) Lymph # (Auto) [place] # (Auto) Seg Neutrophils % Seg Neuts % (Manual) Lymphocytes % (Manual) Monocytes % (Manual) Basophils % (Manual) Nucleated RBC % Seg Neutrophils # Seg Neutrophils # Man Lymphocytes # (Manual) Percent Retic PT 16.4 H INR 1.18 H Fibrinogen ABG pH POC ABG pO2 126.1 H ABG pO2 ABG HCO3 ABG O2 Saturation ABG Base Excess ABG Hemoglobin 11.1 L VBG pO2 Oxyhemoglobin Sodium Potassium 3.5 L Chloride Carbon Dioxide BUN 36 H Creatinine 2.7 H Glucose 174 H POC Glucose Lactic Acid Calcium 8.3 L Phosphorus Magnesium Iron TIBC Ferritin Alkaline Phosphatase Lactate Dehydrogenase 249 H Troponin T C-Reactive Protein Total Protein Albumin LDL Cholesterol Direct Crossmatch 12/21/21 12/21/21 12/21/21 11:18 17:14 18:00 WBC 20.2 H RBC Hgb 9.9 L Hct MCH 25 L RDW 18.0 H Plt Count 60 L Lymph % (Auto) [place] % (Auto) Lymph # (Auto) [place] # (Auto) Seg Neutrophils % Seg Neuts % (Manual) Lymphocytes % (Manual) Monocytes % (Manual) Basophils % (Manual) Nucleated RBC % Seg Neutrophils # Seg Neutrophils # Man Lymphocytes # (Manual) Percent Retic PT INR Fibrinogen ABG pH POC ABG pO2 ABG pO2 ABG HCO3 ABG O2 Saturation ABG Base Excess ABG Hemoglobin VBG pO2 Oxyhemoglobin Sodium Potassium Chloride Carbon Dioxide BUN Creatinine Glucose POC Glucose 181 H 222 H Lactic Acid Calcium Phosphorus Magnesium Iron TIBC Ferritin Alkaline Phosphatase Lactate Dehydrogenase Troponin T C-Reactive Protein Total Protein Albumin LDL Cholesterol Direct Crossmatch 12/21/21 12/21/21 12/22/21 19:26 23:28 04:14 WBC 23.9 H RBC Hgb Hct MCH 25 L RDW 17.8 H Plt Count 68 L Lymph % (Auto) [place] % (Auto) Lymph # (Auto) [place] # (Auto) Seg Neutrophils % Seg Neuts % (Manual) Lymphocytes % (Manual) Monocytes % (Manual) Basophils % (Manual) Nucleated RBC % Seg Neutrophils # Seg Neutrophils # Man Lymphocytes # (Manual) Percent Retic PT INR Fibrinogen ABG pH POC ABG pO2 ABG pO2 ABG HCO3 ABG O2 Saturation ABG Base Excess ABG Hemoglobin VBG pO2 Oxyhemoglobin Sodium Potassium Chloride Carbon Dioxide BUN Creatinine Glucose POC Glucose 214 H 260 H Lactic Acid Calcium Phosphorus Magnesium Iron TIBC Ferritin Alkaline Phosphatase Lactate Dehydrogenase Troponin T C-Reactive Protein Total Protein Albumin LDL Cholesterol Direct Crossmatch 12/22/21 12/22/21 12/22/21 04:14 05:28 11:12 WBC RBC Hgb Hct MCH RDW Plt Count Lymph % (Auto) [place] % (Auto) Lymph # (Auto) [place] # (Auto) Seg Neutrophils % Seg Neuts % (Manual) Lymphocytes % (Manual) Monocytes % (Manual) Basophils % (Manual) Nucleated RBC % Seg Neutrophils # Seg Neutrophils # Man Lymphocytes # (Manual) Percent Retic PT INR Fibrinogen ABG pH POC ABG pO2 ABG pO2 ABG HCO3 ABG O2 Saturation ABG Base Excess ABG Hemoglobin VBG pO2 Oxyhemoglobin Sodium 136 L Potassium 3.0 L Chloride Carbon Dioxide BUN 52 H Creatinine 3.5 H Glucose 202 H POC Glucose 223 H 191 H Lactic Acid Calcium 8.1 L Phosphorus Magnesium Iron TIBC Ferritin Alkaline Phosphatase Lactate Dehydrogenase Troponin T C-Reactive Protein Total Protein Albumin LDL Cholesterol Direct Crossmatch 12/22/21 12/22/21 12/23/21 14:05 17:57 04:39 WBC 21.1 H RBC Hgb 10.0 L Hct MCH 26 L RDW 17.6 H Plt Count 79 L Lymph % (Auto) [place] % (Auto) Lymph # (Auto) [place] # (Auto) Seg Neutrophils % Seg Neuts % (Manual) Lymphocytes % (Manual) Monocytes % (Manual) Basophils % (Manual) Nucleated RBC % Seg Neutrophils # Seg Neutrophils # Man Lymphocytes # (Manual) Percent Retic PT 17.7 H INR 1.30 H Fibrinogen ABG pH POC ABG pO2 ABG pO2 ABG HCO3 ABG O2 Saturation ABG Base Excess ABG Hemoglobin VBG pO2 Oxyhemoglobin Sodium Potassium Chloride Carbon Dioxide BUN Creatinine Glucose POC Glucose 140 H Lactic Acid Calcium Phosphorus Magnesium Iron TIBC Ferritin Alkaline Phosphatase Lactate Dehydrogenase Troponin T C-Reactive Protein Total Protein Albumin LDL Cholesterol Direct Crossmatch 12/23/21 12/23/21 12/23/21 04:39 05:11 11:44 WBC RBC Hgb Hct MCH RDW Plt Count Lymph % (Auto) [place] % (Auto) Lymph # (Auto) [place] # (Auto) Seg Neutrophils % Seg Neuts % (Manual) Lymphocytes % (Manual) Monocytes % (Manual) Basophils % (Manual) Nucleated RBC % Seg Neutrophils # Seg Neutrophils # Man Lymphocytes # (Manual) Percent Retic PT INR Fibrinogen ABG pH POC ABG pO2 ABG pO2 ABG HCO3 ABG O2 Saturation ABG Base Excess ABG Hemoglobin VBG pO2 Oxyhemoglobin Sodium 136 L Potassium Chloride Carbon Dioxide 19 L BUN 61 H Creatinine 4.5 H Glucose 113 H POC Glucose 109 H 132 H Lactic Acid Calcium 7.9 L Phosphorus 4.90 H Magnesium Iron TIBC Ferritin Alkaline Phosphatase Lactate Dehydrogenase Troponin T C-Reactive Protein Total Protein Albumin LDL Cholesterol Direct Crossmatch 12/23/21 12/23/21 12/23/21 14:05 16:20 16:59 WBC RBC Hgb 9.3 L Hct 28.7 L MCH RDW Plt Count Lymph % (Auto) [place] % (Auto) Lymph # (Auto) [place] # (Auto) Seg Neutrophils % Seg Neuts % (Manual) Lymphocytes % (Manual) Monocytes % (Manual) Basophils % (Manual) Nucleated RBC % Seg Neutrophils # Seg Neutrophils # Man Lymphocytes # (Manual) Percent Retic PT INR Fibrinogen ABG pH POC ABG pO2 ABG pO2 ABG HCO3 ABG O2 Saturation ABG Base Excess ABG Hemoglobin VBG pO2 Oxyhemoglobin Sodium Potassium Chloride Carbon Dioxide BUN Creatinine Glucose POC Glucose 180 H Lactic Acid Calcium Phosphorus Magnesium Iron TIBC Ferritin Alkaline Phosphatase Lactate Dehydrogenase Troponin T C-Reactive Protein Total Protein Albumin LDL Cholesterol Direct Crossmatch See Detail 12/23/21 12/23/21 12/24/21 21:44 23:30 03:45 WBC RBC Hgb Hct MCH RDW Plt Count Lymph % (Auto) [place] % (Auto) Lymph # (Auto) [place] # (Auto) Seg Neutrophils % Seg Neuts % (Manual) Lymphocytes % (Manual) Monocytes % (Manual) Basophils % (Manual) Nucleated RBC % Seg Neutrophils # Seg Neutrophils # Man Lymphocytes # (Manual) Percent Retic PT INR Fibrinogen ABG pH POC ABG pO2 ABG pO2 ABG HCO3 ABG O2 Saturation ABG Base Excess ABG Hemoglobin VBG pO2 Oxyhemoglobin Sodium Potassium Chloride Carbon Dioxide BUN Creatinine Glucose POC Glucose 141 H 146 H 199 H Lactic Acid Calcium Phosphorus Magnesium Iron TIBC Ferritin Alkaline Phosphatase Lactate Dehydrogenase Troponin T C-Reactive Protein Total Protein Albumin LDL Cholesterol Direct Crossmatch 12/24/21 12/24/21 12/24/21 06:00 06:00 12:37 WBC 16.8 H RBC 2.96 L Hgb 7.5 L Hct 23.3 L MCH 26 L RDW 17.8 H Plt Count 89 L Lymph % (Auto) [place] % (Auto) Lymph # (Auto) [place] # (Auto) Seg Neutrophils % Seg Neuts % (Manual) Lymphocytes % (Manual) Monocytes % (Manual) Basophils % (Manual) Nucleated RBC % Seg Neutrophils # Seg Neutrophils # Man Lymphocytes # (Manual) Percent Retic PT INR Fibrinogen ABG pH POC ABG pO2 ABG pO2 ABG HCO3 ABG O2 Saturation ABG Base Excess ABG Hemoglobin VBG pO2 Oxyhemoglobin Sodium Potassium 3.3 L Chloride 97.3 L Carbon Dioxide BUN 31 H Creatinine 2.8 H Glucose 208 H POC Glucose 181 H Lactic Acid Calcium 7.6 L Phosphorus Magnesium Iron TIBC Ferritin Alkaline Phosphatase Lactate Dehydrogenase Troponin T C-Reactive Protein Total Protein Albumin LDL Cholesterol Direct Crossmatch 12/24/21 12/24/21 12/24/21 14:00 17:23 21:50 WBC RBC Hgb 7.4 L 8.8 L Hct 22.0 L 25.9 L MCH RDW Plt Count Lymph % (Auto) [place] % (Auto) Lymph # (Auto) [place] # (Auto) Seg Neutrophils % Seg Neuts % (Manual) Lymphocytes % (Manual) Monocytes % (Manual) Basophils % (Manual) Nucleated RBC % Seg Neutrophils # Seg Neutrophils # Man Lymphocytes # (Manual) Percent Retic PT INR Fibrinogen ABG pH POC ABG pO2 ABG pO2 ABG HCO3 ABG O2 Saturation ABG Base Excess ABG Hemoglobin VBG pO2 Oxyhemoglobin Sodium Potassium Chloride Carbon Dioxide BUN Creatinine Glucose POC Glucose 167 H Lactic Acid Calcium Phosphorus Magnesium Iron TIBC Ferritin Alkaline Phosphatase Lactate Dehydrogenase Troponin T C-Reactive Protein Total Protein Albumin LDL Cholesterol Direct Crossmatch 12/24/21 12/24/21 12/25/21 23:54 Unknown 05:12 WBC 17.4 H RBC 3.10 L Hgb 8.3 L Hct 24.7 L MCH 27 L RDW 17.7 H Plt Count 105 L Lymph % (Auto) [place] % (Auto) Lymph # (Auto) [place] # (Auto) Seg Neutrophils % Seg Neuts % (Manual) Lymphocytes % (Manual) Monocytes % (Manual) Basophils % (Manual) Nucleated RBC % Seg Neutrophils # Seg Neutrophils # Man Lymphocytes # (Manual) Percent Retic PT INR Fibrinogen ABG pH POC ABG pO2 ABG pO2 109.1 H ABG HCO3 26.6 H ABG O2 Saturation ABG Base Excess ABG Hemoglobin 6.8 L VBG pO2 Oxyhemoglobin Sodium Potassium Chloride Carbon Dioxide BUN Creatinine Glucose POC Glucose 174 H Lactic Acid Calcium Phosphorus Magnesium Iron TIBC Ferritin Alkaline Phosphatase Lactate Dehydrogenase Troponin T C-Reactive Protein Total Protein Albumin LDL Cholesterol Direct Crossmatch 12/25/21 12/25/21 12/25/21 05:12 05:27 11:08 WBC RBC Hgb Hct MCH RDW Plt Count Lymph % (Auto) [place] % (Auto) Lymph # (Auto) [place] # (Auto) Seg Neutrophils % Seg Neuts % (Manual) Lymphocytes % (Manual) Monocytes % (Manual) Basophils % (Manual) Nucleated RBC % Seg Neutrophils # Seg Neutrophils # Man Lymphocytes # (Manual) Percent Retic PT INR Fibrinogen ABG pH POC ABG pO2 ABG pO2 ABG HCO3 ABG O2 Saturation ABG Base Excess ABG Hemoglobin VBG pO2 Oxyhemoglobin Sodium Potassium 3.5 L Chloride Carbon Dioxide BUN 38 H Creatinine 3.7 H Glucose 201 H POC Glucose 202 H 185 H Lactic Acid Calcium 8.0 L Phosphorus Magnesium Iron TIBC Ferritin Alkaline Phosphatase Lactate Dehydrogenase Troponin T C-Reactive Protein Total Protein Albumin LDL Cholesterol Direct Crossmatch 12/25/21 12/25/21 12/25/21 12:23 16:45 22:36 WBC RBC Hgb Hct MCH RDW Plt Count Lymph % (Auto) [place] % (Auto) Lymph # (Auto) [place] # (Auto) Seg Neutrophils % Seg Neuts % (Manual) Lymphocytes % (Manual) Monocytes % (Manual) Basophils % (Manual) Nucleated RBC % Seg Neutrophils # Seg Neutrophils # Man Lymphocytes # (Manual) Percent Retic PT INR Fibrinogen ABG pH POC ABG pO2 ABG pO2 ABG HCO3 ABG O2 Saturation ABG Base Excess ABG Hemoglobin VBG pO2 Oxyhemoglobin Sodium Potassium Chloride Carbon Dioxide BUN Creatinine Glucose POC Glucose 165 H 109 H 133 H Lactic Acid Calcium Phosphorus Magnesium Iron TIBC Ferritin Alkaline Phosphatase Lactate Dehydrogenase Troponin T C-Reactive Protein Total Protein Albumin LDL Cholesterol Direct Crossmatch 12/26/21 12/26/21 12/26/21 11:19 16:03 17:56 WBC RBC Hgb Hct MCH RDW Plt Count Lymph % (Auto) [place] % (Auto) Lymph # (Auto) [place] # (Auto) Seg Neutrophils % Seg Neuts % (Manual) Lymphocytes % (Manual) Monocytes % (Manual) Basophils % (Manual) Nucleated RBC % Seg Neutrophils # Seg Neutrophils # Man Lymphocytes # (Manual) Percent Retic PT INR Fibrinogen ABG pH POC ABG pO2 ABG pO2 ABG HCO3 ABG O2 Saturation ABG Base Excess ABG Hemoglobin VBG pO2 Oxyhemoglobin Sodium Potassium Chloride Carbon Dioxide BUN Creatinine Glucose POC Glucose 59 L 41 L 51 L Lactic Acid Calcium Phosphorus Magnesium Iron TIBC Ferritin Alkaline Phosphatase Lactate Dehydrogenase Troponin T C-Reactive Protein Total Protein Albumin LDL Cholesterol Direct Crossmatch 12/26/21 12/26/21 12/26/21 19:19 23:15 Unknown WBC 14.2 H RBC 3.14 L Hgb 8.5 L Hct 25.1 L MCH 27 L RDW 17.4 H Plt Count 119 L Lymph % (Auto) 8.0 L [place] % (Auto) 8.9 H Lymph # (Auto) 1.1 L [place] # (Auto) 1.3 H Seg Neutrophils % 81.7 H Seg Neuts % (Manual) Lymphocytes % (Manual) Monocytes % (Manual) Basophils % (Manual) Nucleated RBC % Seg Neutrophils # 11.6 H Seg Neutrophils # Man Lymphocytes # (Manual) Percent Retic PT INR Fibrinogen ABG pH POC ABG pO2 ABG pO2 ABG HCO3 ABG O2 Saturation ABG Base Excess ABG Hemoglobin VBG pO2 Oxyhemoglobin Sodium Potassium Chloride Carbon Dioxide BUN Creatinine Glucose POC Glucose 110 H 127 H Lactic Acid Calcium Phosphorus Magnesium Iron TIBC Ferritin Alkaline Phosphatase Lactate Dehydrogenase Troponin T C-Reactive Protein Total Protein Albumin LDL Cholesterol Direct Crossmatch 12/27/21 12/27/21 12/27/21 04:00 04:00 05:18 WBC RBC 2.81 L Hgb 7.7 L Hct 22.6 L MCH 27 L RDW 18.0 H Plt Count 120 L Lymph % (Auto) [place] % (Auto) Lymph # (Auto) [place] # (Auto) Seg Neutrophils % Seg Neuts % (Manual) Lymphocytes % (Manual) Monocytes % (Manual) Basophils % (Manual) Nucleated RBC % Seg Neutrophils # Seg Neutrophils # Man Lymphocytes # (Manual) Percent Retic PT INR Fibrinogen ABG pH POC ABG pO2 ABG pO2 ABG HCO3 ABG O2 Saturation ABG Base Excess ABG Hemoglobin VBG pO2 Oxyhemoglobin Sodium Potassium Chloride Carbon Dioxide BUN 39 H Creatinine 3.7 H Glucose 147 H POC Glucose 130 H Lactic Acid Calcium 8.0 L Phosphorus Magnesium Iron TIBC Ferritin Alkaline Phosphatase 222 H Lactate Dehydrogenase Troponin T C-Reactive Protein Total Protein 5.9 L Albumin 1.7 L LDL Cholesterol Direct Crossmatch 12/27/21 12/27/21 12/27/21 10:59 18:57 23:59 WBC RBC Hgb Hct MCH RDW Plt Count Lymph % (Auto) [place] % (Auto) Lymph # (Auto) [place] # (Auto) Seg Neutrophils % Seg Neuts % (Manual) Lymphocytes % (Manual) Monocytes % (Manual) Basophils % (Manual) Nucleated RBC % Seg Neutrophils # Seg Neutrophils # Man Lymphocytes # (Manual) Percent Retic PT INR Fibrinogen ABG pH POC ABG pO2 ABG pO2 ABG HCO3 ABG O2 Saturation ABG Base Excess ABG Hemoglobin VBG pO2 Oxyhemoglobin Sodium Potassium Chloride Carbon Dioxide BUN Creatinine Glucose POC Glucose 182 H 168 H 154 H Lactic Acid Calcium Phosphorus Magnesium Iron TIBC Ferritin Alkaline Phosphatase Lactate Dehydrogenase Troponin T C-Reactive Protein Total Protein Albumin LDL Cholesterol Direct Crossmatch 12/28/21 12/28/21 12/28/21 06:06 11:18 16:41 WBC RBC Hgb Hct MCH RDW Plt Count Lymph % (Auto) [place] % (Auto) Lymph # (Auto) [place] # (Auto) Seg Neutrophils % Seg Neuts % (Manual) Lymphocytes % (Manual) Monocytes % (Manual) Basophils % (Manual) Nucleated RBC % Seg Neutrophils # Seg Neutrophils # Man Lymphocytes # (Manual) Percent Retic PT INR Fibrinogen ABG pH POC ABG pO2 ABG pO2 ABG HCO3 ABG O2 Saturation ABG Base Excess ABG Hemoglobin VBG pO2 Oxyhemoglobin Sodium Potassium Chloride Carbon Dioxide BUN Creatinine Glucose POC Glucose 110 H 159 H 106 H Lactic Acid Calcium Phosphorus Magnesium Iron TIBC Ferritin Alkaline Phosphatase Lactate Dehydrogenase Troponin T C-Reactive Protein Total Protein Albumin LDL Cholesterol Direct Crossmatch 12/28/21 12/29/21 12/29/21 23:43 05:40 06:30 WBC RBC 2.73 L Hgb 7.5 L Hct 22.1 L MCH 27 L RDW 18.0 H Plt Count Lymph % (Auto) [place] % (Auto) Lymph # (Auto) [place] # (Auto) Seg Neutrophils % Seg Neuts % (Manual) Lymphocytes % (Manual) Monocytes % (Manual) Basophils % (Manual) Nucleated RBC % Seg Neutrophils # Seg Neutrophils # Man Lymphocytes # (Manual) Percent Retic PT INR Fibrinogen ABG pH POC ABG pO2 ABG pO2 ABG HCO3 ABG O2 Saturation ABG Base Excess ABG Hemoglobin VBG pO2 Oxyhemoglobin Sodium Potassium Chloride Carbon Dioxide BUN Creatinine Glucose POC Glucose 171 H 143 H Lactic Acid Calcium Phosphorus Magnesium Iron TIBC Ferritin Alkaline Phosphatase Lactate Dehydrogenase Troponin T C-Reactive Protein Total Protein Albumin LDL Cholesterol Direct Crossmatch 12/29/21 12/29/21 12/29/21 06:30 16:42 22:59 WBC RBC Hgb Hct MCH RDW Plt Count Lymph % (Auto) [place] % (Auto) Lymph # (Auto) [place] # (Auto) Seg Neutrophils % Seg Neuts % (Manual) Lymphocytes % (Manual) Monocytes % (Manual) Basophils % (Manual) Nucleated RBC % Seg Neutrophils # Seg Neutrophils # Man Lymphocytes # (Manual) Percent Retic PT INR Fibrinogen ABG pH POC ABG pO2 ABG pO2 ABG HCO3 ABG O2 Saturation ABG Base Excess ABG Hemoglobin VBG pO2 Oxyhemoglobin Sodium 132 L D Potassium 3.3 L Chloride 95.9 L Carbon Dioxide BUN 30 H Creatinine 3.3 H Glucose 164 H POC Glucose 107 H 146 H Lactic Acid Calcium 7.8 L Phosphorus Magnesium Iron TIBC Ferritin Alkaline Phosphatase Lactate Dehydrogenase Troponin T C-Reactive Protein Total Protein Albumin LDL Cholesterol Direct Crossmatch 12/30/21 12/30/21 12/30/21 04:56 04:56 05:35 WBC 4.2 L RBC 2.83 L Hgb 7.5 L Hct 23.1 L MCH 27 L RDW 18.3 H Plt Count Lymph % (Auto) [place] % (Auto) Lymph # (Auto) [place] # (Auto) Seg Neutrophils % Seg Neuts % (Manual) Lymphocytes % (Manual) Monocytes % (Manual) Basophils % (Manual) Nucleated RBC % Seg Neutrophils # Seg Neutrophils # Man Lymphocytes # (Manual) Percent Retic PT INR Fibrinogen ABG pH POC ABG pO2 ABG pO2 ABG HCO3 ABG O2 Saturation ABG Base Excess ABG Hemoglobin VBG pO2 Oxyhemoglobin Sodium 136 L Potassium 3.4 L Chloride Carbon Dioxide BUN 37 H Creatinine 4.2 H Glucose 117 H POC Glucose 113 H Lactic Acid Calcium 7.7 L Phosphorus Magnesium Iron TIBC Ferritin Alkaline Phosphatase Lactate Dehydrogenase Troponin T C-Reactive Protein Total Protein Albumin LDL Cholesterol Direct Crossmatch 12/30/21 12/30/21 12/30/21 07:24 16:58 23:21 WBC RBC Hgb Hct MCH RDW Plt Count Lymph % (Auto) [place] % (Auto) Lymph # (Auto) [place] # (Auto) Seg Neutrophils % Seg Neuts % (Manual) Lymphocytes % (Manual) Monocytes % (Manual) Basophils % (Manual) Nucleated RBC % Seg Neutrophils # Seg Neutrophils # Man Lymphocytes # (Manual) Percent Retic PT INR Fibrinogen ABG pH POC ABG pO2 ABG pO2 ABG HCO3 ABG O2 Saturation ABG Base Excess ABG Hemoglobin VBG pO2 Oxyhemoglobin Sodium Potassium Chloride Carbon Dioxide BUN Creatinine Glucose POC Glucose 125 H 134 H 153 H Lactic Acid Calcium Phosphorus Magnesium Iron TIBC Ferritin Alkaline Phosphatase Lactate Dehydrogenase Troponin T C-Reactive Protein Total Protein Albumin LDL Cholesterol Direct Crossmatch 12/31/21 12/31/21 12/31/21 05:55 11:34 Unknown WBC RBC Hgb Hct MCH RDW Plt Count Lymph % (Auto) [place] % (Auto) Lymph # (Auto) [place] # (Auto) Seg Neutrophils % Seg Neuts % (Manual) Lymphocytes % (Manual) Monocytes % (Manual) Basophils % (Manual) Nucleated RBC % Seg Neutrophils # Seg Neutrophils # Man Lymphocytes # (Manual) Percent Retic PT INR Fibrinogen ABG pH POC ABG pO2 ABG pO2 ABG HCO3 ABG O2 Saturation ABG Base Excess ABG Hemoglobin VBG pO2 Oxyhemoglobin Sodium Potassium Chloride Carbon Dioxide 31 H BUN Creatinine 2.7 H Glucose 148 H POC Glucose 127 H 114 H Lactic Acid Calcium Phosphorus Magnesium Iron TIBC Ferritin Alkaline Phosphatase Lactate Dehydrogenase Troponin T C-Reactive Protein Total Protein Albumin LDL Cholesterol Direct Crossmatch 01/01/22 01/01/22 04:52 04:52 WBC RBC 2.64 L Hgb 7.2 L Hct 21.7 L MCH 27 L RDW 18.3 H Plt Count Lymph % (Auto) [place] % (Auto) Lymph # (Auto) [place] # (Auto) Seg Neutrophils % Seg Neuts % (Manual) Lymphocytes % (Manual) Monocytes % (Manual) 8.0 H Basophils % (Manual) 2.0 H Nucleated RBC % Seg Neutrophils # Seg Neutrophils # Man Lymphocytes # (Manual) 1.0 L Percent Retic PT INR Fibrinogen ABG pH POC ABG pO2 ABG pO2 ABG HCO3 ABG O2 Saturation ABG Base Excess ABG Hemoglobin VBG pO2 Oxyhemoglobin Sodium Potassium Chloride Carbon Dioxide BUN 21 H Creatinine 3.4 H Glucose POC Glucose Lactic Acid Calcium 8.2 L Phosphorus Magnesium Iron TIBC Ferritin Alkaline Phosphatase Lactate Dehydrogenase Troponin T C-Reactive Protein Total Protein Albumin LDL Cholesterol Direct Crossmatch Allied health notes reviewed: nursing
[2022-01-01] MEDS: BUDESONIDE 0.5 MG/2 ML NEBU IH SCH ×2 (09:53→21:40)
[2022-01-01] MEDS: IPRATROPIUM/ALBUTEROL SULFATE 3 ML AMPUL.NEB IH SCH ×3 (09:53→21:40)
[2022-01-01] MEDS: HYDROcodone/ACETAMINOPHEN 5-325 MG TAB PO PRN ×2 (10:09→16:30)
[2022-01-01] MEDS: MIDODRINE 5 MG TAB FEEDTUBE SCH ×3 (10:09→17:44)
[2022-01-01] MEDS: LANSOPRAZOLE 30 MG SOLUTAB FEEDTUBE SCH (10:12)
--- NOTE | 2022-01-01 10:14 | Progress Note ---
Assessment and Plan - Patient Problems (1) Syncope Current Visit: Yes Status: Acute Plan to address problem: Patient with end-stage renal disease on hemodialysis, admitted with transient dizziness and sepsis, suspected source indwelling Vas-Cath. She is status post respiratory failure, has been extubated successfully. History of a moderate severity cardiomyopathy, ejection fraction 35 to 40%. We will continue conservative cardiac management with medical therapy as tolerated. Subjective Date of service: 01/01/22 Principal diagnosis: Septic shock ; Bacteremia; ESRD on dialysis; AMS; NSTEMI; HTN; DM II Interval history: Patient is comfortable, no cardiac complaints, no cardiac events reported. Objective Vital Signs Temp Pulse Pulse Resp Resp BP BP 01/01/22 08:16 98.6 F 76 18 96/53 01/01/22 08:00 78 18 01/01/22 05:25 120/58 01/01/22 03:21 97.5 F L 73 17 125/53 01/01/22 01:06 77 12/31/21 20:30 97.8 F 76 18 101/55 12/31/21 20:29 12/31/21 20:22 12/31/21 20:20 80 16 12/31/21 20:18 76 12/31/21 18:01 18 12/31/21 16:50 98.2 F 74 18 111/61 12/31/21 15:34 84 16 12/31/21 14:16 75 12/31/21 14:09 98.3 F 75 107/70 12/31/21 11:00 82 18 Pulse Ox 01/01/22 08:16 98 01/01/22 08:00 01/01/22 05:25 01/01/22 03:21 95 01/01/22 01:06 12/31/21 20:30 95 12/31/21 20:29 95 12/31/21 20:22 98 12/31/21 20:20 12/31/21 20:18 12/31/21 18:01 12/31/21 16:50 90 12/31/21 15:34 12/31/21 14:16 12/31/21 14:09 12/31/21 11:00 97 - Physical Examination General: No Apparent Distress HEENT: Positive: PERRL Neck: Positive: neck supple Cardiac: Positive: Reg Rate and Rhythm Lungs: Positive: Decreased Breath Sounds Neuro: Positive: Weakness (Generalized lethargy) Abdomen: Positive: Soft Skin: Positive: Clear Extremities: Absent: edema - Labs and Meds CBC 01/01/22 Range/Units 04:52 WBC 5.4 (4.5-11.0) K/mm3 RBC 2.64 L (3.65-5.03) M/mm3 Hgb 7.2 L (10.1-14.3) gm/dl Hct 21.7 L (30.3-42.9) % Plt Count 148 (140-440) K/mm3 Comprehensive Metabolic Panel 01/01/22 Range/Units 04:52 Sodium 139 (137-145) mmol/L Potassium 4.7 D (3.6-5.0) mmol/L Chloride 104.1 (98-107) mmol/L Carbon Dioxide 25 (22-30) mmol/L BUN 21 H (7-17) mg/dL Creatinine 3.4 H (0.6-1.2) mg/dL Glucose 94 (65-100) mg/dL Calcium 8.2 L (8.4-10.2) mg/dL - Allied health notes Allied health notes reviewed: nursing
[2022-01-01] MEDS: carvediloL 6.25 MG TAB PO SCH ×2 (10:25→21:12)
--- NOTE | 2022-01-01 10:41 | Progress Note ---
Assessment and Plan This is a 66-year-old female with known past medical history of ESRD on HD, HTN, heart-attack, and GERD initially admitted to the floor s/p fall at home. Patient was transferred to the ICU due to septic shock 2/2 GPC bacteremia requiring v asopressor. Right arm with scalded skin syndrome. Swelling is improved. Daily dressing changes have been done. We will add Silvadene topical ointment to treatment regiment and have physical therapy see for immobility of the right hand. Will sign off for now. Subjective Date of service: 01/01/22 Narrative: Right arm with scalded skin syndrome. Swelling is improved. Daily dressing changes have been done. We will add Silvadene topical ointment to treatment regiment and have physical therapy see for immobility of the right hand. Will sign off for now. Objective Vital Signs - 12hr 01/01/22 01/01/22 01/01/22 01:06 03:21 05:25 Temperature 97.5 F L Pulse Rate 77 73 Pulse Rate [ Anterior Bilateral Throughout] Respiratory 17 Rate Respiratory Rate [Anterior Bilateral Throughout] Blood Pressure 125/53 120/58 O2 Sat by Pulse 95 Oximetry 01/01/22 01/01/22 08:00 08:16 Temperature 98.6 F Pulse Rate 76 Pulse Rate [ 78 Anterior Bilateral Throughout] Respiratory 18 Rate Respiratory 18 Rate [Anterior Bilateral Throughout] Blood Pressure 96/53 O2 Sat by Pulse 98 Oximetry - Labs 01/01/22 04:52 01/01/22 04:52 Diabetes panel 01/01/22 Range/Units 04:52 Sodium 139 (137-145) mmol/L Potassium 4.7 D (3.6-5.0) mmol/L Chloride 104.1 (98-107) mmol/L Carbon Dioxide 25 (22-30) mmol/L BUN 21 H (7-17) mg/dL Creatinine 3.4 H (0.6-1.2) mg/dL Glucose 94 (65-100) mg/dL Calcium 8.2 L (8.4-10.2) mg/dL Calcium panel 01/01/22 Range/Units 04:52 Calcium 8.2 L (8.4-10.2) mg/dL Pituitary panel 01/01/22 Range/Units 04:52 Sodium 139 (137-145) mmol/L Potassium 4.7 D (3.6-5.0) mmol/L Chloride 104.1 (98-107) mmol/L Carbon Dioxide 25 (22-30) mmol/L BUN 21 H (7-17) mg/dL Creatinine 3.4 H (0.6-1.2) mg/dL Glucose 94 (65-100) mg/dL Calcium 8.2 L (8.4-10.2) mg/dL Adrenal panel 01/01/22 Range/Units 04:52 Sodium 139 (137-145) mmol/L Potassium 4.7 D (3.6-5.0) mmol/L Chloride 104.1 (98-107) mmol/L Carbon Dioxide 25 (22-30) mmol/L BUN 21 H (7-17) mg/dL Creatinine 3.4 H (0.6-1.2) mg/dL Glucose 94 (65-100) mg/dL Calcium 8.2 L (8.4-10.2) mg/dL
--- NOTE | 2022-01-01 11:30 | Discharge Summary ---
Providers - Providers Date of Admission: 12/11/21 22:11 Date of discharge: 01/01/22 Attending physician: SIDRA LOPEZ MD 12/11/21 Consult to Cardiac Rehabilitation [CONS] Routine Reason For Exam: Phase I 12/11/21 22:11 Consult to Cardiology [CONS] Routine Consulting Provider: BARB CHISHOLM Reason For Exam: Elevated troponin 12/11/21 22:13 Consult to Physician [CONS] Routine Comment: Dr. Cornejo spoke with Dr. Stanford @ 1944 Consulting Provider: YUDITH STANFORD Physician Instructions: Reason For Exam: esrd 12/11/21 22:23 Consult to Dietitian/Nutrition [CONS] Routine Physician Instructions: Reason For Exam: Reason for Consult: Diet education 12/14/21 08:47 Physical Therapy Evaluation and Treat [CONS] Routine Comment: Patient extubated today 12/24/21. Reason For Exam: falls/debility 12/15/21 07:32 Consult to Physician [CONS] Routine Comment: spoke to dr. Shelby/ jordana Consulting Provider: SHONA ESPINOSA Physician Instructions: Reason For Exam: Sepsis, Bacteremia 12/15/21 07:33 Consult to Physician [CONS] Routine Comment: Consulting Provider: NAVEEN CLEMENTS Physician Instructions: Reason For Exam: CCM, Sepsis 12/15/21 10:09 Consult to Dietitian/Nutrition [CONS] Routine Physician Instructions: Reason For Exam: Reason for Consult: Write/Manage Tube Feeding 12/15/21 10:13 Consult to Interventional Radiology [CONS] Routine Consulting Provider: KRISTAL HENRY Reason For Exam: needs permacath removal- bacteremia Place consult to:: office Notified:: yes Phone number called:: [phone] Was contact made?: Yes Time called:: 12:18 Comment:: 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/ jordana 12/16/21 11:16 Consult to Dietitian/Nutrition [CONS] Routine Physician Instructions: Assess nutrtn needs, initiate, modify, manage TF Reason For Exam: Reason for Consult: Write/Manage Tube Feeding Reason for Consult: Write/Manage Tube Feeding 12/17/21 14:12 Consult to Physician [CONS] Routine Comment: Consulting Provider: ELISABETH LAMBERT Physician Instructions: call left message on voice mail Reason For Exam: thrombocytopenia 12/18/21 14:21 Consult to Wound/ET Nurse [CONS] Stat Reason For Exam: wound eval, right arm blister/open 12/21/21 08:11 Consult to Physician [CONS] Routine Comment: dr. Corado o/kedar /jordana Consulting Provider: ELYSE JEFF Physician Instructions: Reason For Exam: GIB 12/24/21 14:19 Occupational Therapy Evaluate and Treat [CONS] Routine Comment: Reason For Exam: Debility 12/25/21 11:32 Consult to Physician [CONS] Routine Comment: called office/ jordana Consulting Provider: RICKEY CAZARES Physician Instructions: Reason For Exam: RUE wound eval and management Speech Therapy Evaluation and Treat [CONS] Routine Reason For Exam: Swallow eval and treat 12/27/21 11:21 Consult to Physician [CONS] Routine Comment: Consulting Provider: KRISTAL HENRY Physician Instructions: Reason For Exam: swellin g left upper 12/28/21 08:34 Consult to Case Management [CONS] Routine Services Needed at Discharge: Home Health Services Notified:: no Additional Physician Instructions: Home health care, wound care planning for discharge. Anticipate discharge in am if patient tolerating Oral diet 12/29/21 08:55 Occupational Therapy Evaluate and Treat [CONS] Routine Comment: RECOMMENDATIONS FOR PLACEMENT Reason For Exam: WEAKNESS Physical Therapy Evaluation and Treat [CONS] Routine Comment: RECOMMENDATIONS FOR PLACEMENT Reason For Exam: WEAKNESS 12/29/21 08:59 Speech Therapy Evaluation and Treat [CONS] Routine Reason For Exam: REMOVAL OF NG TUBE 01/01/22 10:37 Physical Therapy Evaluation and Treat [CONS] Urgent Comment: rom eval and excer, cock up splint Reason For Exam: right hand limited mobility Primary care physician: SURVEY TECHNICIAN Hospitalization Reason for admission: Septic shock, NSTEMI, acute on chronic systolic heart failure Condition: Stable Pertinent studies: Reviewed. Procedures: Reviewed. Hospital course: 12/12: No acute events overnight, reports extreme pain in her right leg, denies chest pain or shortness of breath 12/13: No acute events overnight, patient tearful and complaining of right leg pain however she is refusing analgesic medication 12/14: Continues to have right leg pain, does not participate in interview 12/15: Patient transferred to the ICU for hypotension on Levophed drip however she was weaned off by morning and midodrine was increased due to borderline MAP. Blood cultures grew 11/17 gram-positive cocci with suspected right upper chest permacath source. Patient started on vancomycin and infectious disease consulted. Plan for IR consult for permacath removal and assessment of aVF functioning. Possible temporary Vas-Cath placement for hemodialysis. Patient is encephalopathic likely secondary to sepsis. Continue current antibiotics and repeat 2D echo and blood cultures in the a.m. Right upper extremity swelling and pain noted and right upper extremity XR and Doppler ordered. 12/16: Patient noted to have blisters on left arm and RN asked to elevate and place cool compresses to site. AV fistula on left upper extremity access by hemodialysis nurse and hemodialysis ongoing. Vasopressin ordered in efforts to wean Levophed while on hemodialysis. Echocardiogram repeated. Blood cultures grew beta-hemolytic strep group B and antibiotics changed to ceftriaxone. Dobutamine drip discontinued. Remained sedated on fentanyl drip. 12/17: Thrombocytopenia worse today, unable to tolerate being off vasopressin, started on steroids, HIT assay ordered-discontinued. SCDs for now. [facility] will like to give normal saline 100 ml/hr for 2 L. 12/18: Wound care consult placed for right upper extremity, PSV trials today, weaning Levophed, dialysis planned for today. Hematology/oncology consulted yesterday who recommends twice daily Solu-Medrol. No acute events reported overnight. Patient will be started on IV iron 12/19: PSV today, mentation better and intermittently follows commands. Platelets stable. Reglan started for vomiting and will slowly increase TF. KUB with no acute process. 12/20: PSV today, mentation unchanged, CTH without acute findings, Platelets remains stable with no signs of bleeding, high residuals reported overnight and TF was off from approximately 7725-1774. TF resumed around 0400 at currently at 20/hr. RN to increase as tolerated. [facility] plans extubation Wednesday. HD today. Will keep femoral line for now in setting of low plts 12/21: Patient had moderate BM today with bright red and dark red blood->CBC pending, coags, LDH ordered, GI consulted and Dr. Lambert alerted. PSV again today. Patient is still intermittently following commands. 12/22: Remains on the vent, more somnolent this am. Patient also with persistent bloody stools, H&H remains stable, GI is also following. Will keep patient NPO for now, IV PPI, and serial H&H. Patient is tolerating PSV trial, However, intubation postpone due to increased lethargy and GIB. Awaiting on GI recommendations. 12/23: With persistent rectal bleeding, H&H and vital signs remain stable. GI is on the case, plan for possible colonoscopy tomorrow. Keep patient NPO, continue IV PPI and serial H&H. Hypoglycemic overnight, most likely due to NPO status, continue D10W for now. D/W CCM continue PSV trial, possible extubation tomorrow. Continue HD per Nephro 12/24: Post colonoscopy at the bedside this am. Patient stable on thevent but lethargic. GI recommendations appreciated. Will resume TF, continue PPI and trend H&H X1more day. Leukocytosis improved this am, stool studies pending, Continue current IV antibiotics per ID. Plan for possible PSV trial today once more awake, possible extubation if patient tolerate PSV trial. 12/25: s/p extubation now stable on 3L NC. Post colonoscopy, still with blood tinge losse stools, stool studies pending. Continue current IV antiobiotics per ID. S/p 1unit of PRBCs, H&H is stable this am, thrombocytopenia improved. Continue to hold AC, trend CBC, and PPI. Consult placed to general surgery for RUE wound eval and management, wound care consult pending. D/w CCM, patient is stable for transfer to Telemetry. 12/26: Patient remains very lethargic, failed swallow evaluation likely due to profound leathargy, Continue aspiration precautions, Monitor H/H closely, GI input noted, will purse PEG placement if patients mental status does not improve to tolerate oral diet. Continue abx per infectious disease specialist. She still has evidence of dark tarry stool in the FMS. We will monitor leukocytosis for resolution. Wound care input from surgical team appreciated patient will likely undergo debridement Aspiration precaution. Awaiting C. difficile testing also. 12/27: Patient still with diarrhea awaiting awaiting C. difficile cultures. Continue to hold all stool softeners. She is more awake this morning and if she was able to tolerate Robitussin and some COVID last night we will have speech team repeat swallow evaluation. Hemoglobin did drop by 1 g we will continue to monitor considering renal failure would not transfuse at this time unless less than 6. Aggressive PT OT 12/28: Continue supportive care. Awaiting PT OT evaluation. Patient appears more awake today and have asked the nurse to repeat swallow evaluation. Anticipate discharge in a.m. Continue hemodialysis Patient will benefit from wound care further right upper extremity wound on discharge. Surgical input on wound management appreciated. 12/29: Patient showing remarkable clinical improvement after summary the patient is a 66-year-old female with history of end-stage renal disease on HD hypertension ID and GERD who was admitted septic shock and placed on ICU in addition with mechanical ventilation for respiratory failure. During hospitalization it appears that the patient has some reaction to the right upper extremity for which there was extra cessation and wound development which is being managed by the wound care team. Of fecal management system was placed due to recurrent diarrhea C. difficile test was done and negative COVID test was negative. Vancomycin that was started for treatment of possible C. difficile has been discontinued. The patient today is much awake passed swallow evaluation onto the resolve Dobbhoff has been discontinued. PT OT evaluation is ordered for discharge planning. Replace electrolyte. The patient is planned for a fistulogram today due to left arm AV graft with swelling in the hand. Discharge planning will be based on the procedure that at this time. Anticipate discharge in 24 hrs I have called to update family but was only able to leave a message Case management for discharge planning Disposition: 01 HOME / SELF CARE / HOMELESS Final Discharge Diagnosis (Prints w/discharge instructions): Septic shock secondary to gram-positive bacteremia (beta-hemolytic strep group B), severe colitis, leukocytosis, acute on chronic systolic heart failure, severe cardiomyopathy, NSTEMI, hypertension, history of CAD, acute metabolic encephalopathy, history of seizure disorder, history of CVA with left-sided weakness, ground-level fall at home, acute on chronic hypoxic respiratory failure, ESRD on hemodialysis, sacral wounds, normocytic anemia, th rombocytopenia, hyponatremia, hypokalemia, acute GI bleed, insulin-dependent type 2 diabetes mellitus with hyperglycemia, multinodular thyroid gland, severe protein caloric malnutrition Time spent for discharge: 45 min Core Measure Documentation - Palliative Care Palliative Care/ Comfort Measures: Not Applicable - Core Measures Any of the following diagnoses?: acute ID, heart failure - Acute ID Discharge Requirements Aspirin at discharge: No Reason for no aspirin on DC: Medical contraindication NIKOLAI/ARB for LVSD if EF <40%: No Reason for no NIKOLAI/ARB: Renal impairment Beta akin at discharge: Yes Statin for LDL = or >100 mg/dl on DC: Yes - Heart Failure Discharge Requirements NIKOLAI/ARB for LVSD if EF <40%: Not Applicable Reason for no NIKOLAI/ARB: Renal impairment Beta akin at discharge: Yes Exam - Constitutional Vitals: Temp Pulse Resp BP Pulse Ox 98.6 F 76 18 96/53 98 01/01/22 08:16 01/01/22 08:16 01/01/22 08:16 01/01/22 08:16 01/01/22 08:16 General appearance: Present: mild distress, cachectic - EENT Eyes: Present: PERRL, EOM intact ENT: hearing intact, clear oral mucosa, dentition normal - Neck Neck: Present: supple, normal ROM - Respiratory Respiratory effort: normal - Cardiovascular Rhythm: regular Heart Sounds: Present: S1 & S2 - Extremities Extremities: no ischemia, pulses intact, pulses symmetrical, normal temperature, normal color Peripheral Pulses: within normal limits - Abdominal General gastrointestinal: Present: soft, non-tender, non-distended, normal bowel sounds Female genitourinary: Present: deferred - Rectal Rectal Exam: deferred - Integumentary Integumentary: Present: warm, dry, erythema (Sacral decubitus ulcer) - Musculoskeletal Musculoskeletal: left sided weakness, generalized weakness - Psychiatric Psychiatric: appropriate mood/affect, cooperative, depressed - Neurologic Neurologic: CNII-XII intact - Allied Health Allied health notes reviewed: nursing Plan Activity: advance as tolerated Diet: low salt, diabetic Care Plan Goals: Patient is medically cleared for discharge. Assessment: 12/12: No acute events overnight, reports extreme pain in her right leg, denies chest pain or shortness of breath 12/13: No acute events overnight, patient tearful and complaining of right leg pain however she is refusing analgesic medication 12/14: Continues to have right leg pain, does not participate in interview 12/15: Patient transferred to the ICU for hypotension on Levophed drip however she was weaned off by morning and midodrine was increased due to borderline MAP. Blood cultures grew 11/17 gram-positive cocci with suspected right upper chest permacath source. Patient started on vancomycin and infectious disease consulted. Plan for IR consult for permacath removal and assessment of aVF functioning. Possible temporary Vas-Cath placement for hemodialysis. Patient is encephalopathic likely secondary to sepsis. Continue current antibiotics and repeat 2D echo and blood cultures in the a.m. Right upper extremity swelling and pain noted and right upper extremity XR and Doppler ordered. 12/16: Patient noted to have blisters on left arm and RN asked to elevate and place cool compresses to site. AV fistula on left upper extremity access by hemodialysis nurse and hemodialysis ongoing. Vasopressin ordered in efforts to wean Levophed while on hemodialysis. Echocardiogram repeated. Blood cultures grew beta-hemolytic strep group B and antibiotics changed to ceftriaxone. Dobutamine drip discontinued. Remained sedated on fentanyl drip. 12/17: Thrombocytopenia worse today, unable to tolerate being off vasopressin, started on steroids, HIT assay ordered-discontinued. SCDs for now. [facility] will like to give normal saline 100 ml/hr for 2 L. 12/18: Wound care consult placed for right upper extremity, PSV trials today, weaning Levophed, dialysis planned for today. Hematology/oncology consulted yesterday who recommends twice daily Solu-Medrol. No acute events reported overnight. Patient will be started on IV iron 12/19: PSV today, mentation better and intermittently follows commands. Platelets stable. Reglan started for vomiting and will slowly increase TF. KUB with no acute process. 12/20: PSV today, mentation unchanged, CTH without acute findings, Platelets remains stable with no signs of bleeding, high residuals reported overnight and TF was off from approximately 6956-2129. TF resumed around 0400 at currently at 20/hr. RN to increase as tolerated. [facility] plans extubation Wednesday. HD today. Will keep femoral line for now in setting of low plts 12/21: Patient had moderate BM today with bright red and dark red blood->CBC pending, coags, LDH ordered, GI consulted and Dr. Lambert alerted. PSV again today. Patient is still intermittently following commands. 12/22: Remains on the vent, more somnolent this am. Patient also with persistent bloody stools, H&H remains stable, GI is also following. Will keep patient NPO for now, IV PPI, and serial H&H. Patient is tolerating PSV trial, However, intubation postpone due to increased lethargy and GIB. Awaiting on GI recommendations. 12/23: With persistent rectal bleeding, H&H and vital signs remain stable. GI is on the case, plan for possible colonoscopy tomorrow. Keep patient NPO, continue IV PPI and serial H&H. Hypoglycemic overnight, most likely due to NPO status, continue D10W for now. D/W CCM continue PSV trial, possible extubation tomorrow. Continue HD per Nephro 12/24: Post colonoscopy at the bedside this am. Patient stable on thevent but lethargic. GI recommendations appreciated. Will resume TF, continue PPI and trend H&H X1more day. Leukocytosis improved this am, stool studies pending, Continue current IV antibiotics per ID. Plan for possible PSV trial today once more awake, possible extubation if patient tolerate PSV trial. 12/25: s/p extubation now stable on 3L NC. Post colonoscopy, still with blood tinge losse stools, stool studies pending. Continue current IV antiobiotics per ID. S/p 1unit of PRBCs, H&H is stable this am, thrombocytopenia improved. Continue to hold AC, trend CBC, and PPI. Consult placed to general surgery for RUE wound eval and management, wound care consult pending. D/w CCM, patient is stable for transfer to Telemetry. 12/26: Patient remains very lethargic, failed swallow evaluation likely due to profound leathargy, Continue aspiration precautions, Monitor H/H closely, GI input noted, will purse PEG placement if patients mental status does not improve to tolerate oral diet. Continue abx per infectious disease specialist. She still has evidence of dark tarry stool in the FMS. We will monitor leukocytosis for resolution. Wound care input from surgical team appreciated patient will likely undergo debridement Aspiration precaution. Awaiting C. difficile testing also. 12/27: Patient still with diarrhea awaiting awaiting C. difficile cultures. Continue to hold all stool softeners. She is more awake this morning and if she was able to tolerate Robitussin and some COVID last night we will have speech team repeat swallow evaluation. Hemoglobin did drop by 1 g we will continue to monitor considering renal failure would not transfuse at this time unless less than 6. Aggressive PT OT 12/28: Continue supportive care. Awaiting PT OT evaluation. Patient appears more awake today and have asked the nurse to repeat swallow evaluation. Anticipate discharge in a.m. Continue hemodialysis Patient will benefit from wound care further right upper extremity wound on discharge. Surgical input on wound management appreciated. 12/29: Patient showing remarkable clinical improvement after summary the patient is a 66-year-old female with history of end-stage renal disease on HD hypertension ID and GERD who was admitted septic shock and placed on ICU in addition with mechanical ventilation for respiratory failure. During hospitalization it appears that the patient has some reaction to the right upper extremity for which there was extra cessation and wound development which is being managed by the wound care team. Of fecal management system was placed due to recurrent diarrhea C. difficile test was done and negative COVID test was negative. Vancomycin that was started for treatment of possible C. difficile has been discontinued. The patient today is much awake passed swallow evaluation onto the resolve Dobbhoff has been discontinued. PT OT evaluation is ordered for discharge planning. Replace electrolyte. The patient is planned for a fistulogram today due to left arm AV graft with swelling in the hand. Discharge planning will be based on the procedure that at this time. Anticipate discharge in 24 hrs I have called to update family but was only able to leave a message Case management for discharge planning Follow up with: PRIMARY CARE, [Primary Care Provider] - 7 Days Prescriptions: AtorvaSTATin [Lipitor] 80 mg FEEDTUBE QHS #30 tablet Aspirin [Adult Aspirin] 81 mg PO DAILY #30 tab Isosorb Dinit/Hydralazine [Bidil 20/37.5MG] 1 each PO Q8HR #90 tablet Calcium Acetate 2 tab PO TID #90 tab carvediloL [Coreg] 6.25 mg PO BID #60 tablet levETIRAcetam [Keppra TAB] 500 mg PO 3XW #15 Midodrine [Proamatine] 5 mg FEEDTUBE TID@0800,1200,1600 #90 tablet Sevelamer Carbonate [Renvela] 800 mg PO TIDWM 90 Days #270 tab calcitrioL [Rocaltrol] 0.5 mcg PO QDAY #30 capsule SILVER sulfADIAZINE 50 GRAM [Thermazene 50 Gram] 1 applic TP QDAY #2 tube Fluticasone/Umeclidin/Vilanter [Trelegy Ellipta 100-62.5-25] 1 each IH DAILY #1 inh
[2022-01-01] MEDS: CALCITRIOL 0.5 MCG CAP PO SCH (13:25)
[2022-01-01] MEDS: levETIRAcetam 500 MG/5 ML ORAL LIQD FEEDTUBE SCH (19:11)
[2022-01-02] MEDS: HYDROcodone/ACETAMINOPHEN 5-325 MG TAB PO PRN ×3 (04:40→17:00)
[2022-01-02] MEDS: ISOSORB DINIT/HYDRALAZINE 20-37.5MG TAB PO SCH ×3 (06:34→21:17)
--- NOTE | 2022-01-02 08:27 | Progress Note ---
Assessment and Plan - Patient Problems (1) Syncope Current Visit: Yes Status: Acute Plan to address problem: Patient with end-stage renal disease on hemodialysis, admitted with transient dizziness and sepsis, suspected source indwelling Vas-Cath. She is status post respiratory failure, has been extubated successfully. History of a moderate severity cardiomyopathy, ejection fraction 35 to 40%. We will continue conservative cardiac management with medical therapy as tolerated. Subjective Date of service: 01/02/22 Principal diagnosis: Septic shock ; Bacteremia; ESRD on dialysis; AMS; NSTEMI; HTN; DM II Interval history: Patient is comfortable, no cardiac complaints, no cardiac events reported. Objective Vital Signs Temp Pulse Pulse Resp Resp BP BP 01/02/22 08:13 97.9 F 16 106/54 01/02/22 04:40 20 01/02/22 03:37 97.3 F L 85 17 111/69 01/01/22 23:25 108/70 01/01/22 23:18 99.2 F 85 18 90/45 01/01/22 22:00 82 18 01/01/22 21:42 01/01/22 21:04 20 01/01/22 20:34 18 01/01/22 20:00 77 18 01/01/22 19:35 97.6 F 79 18 130/69 01/01/22 15:59 98.6 F 75 18 140/76 01/01/22 15:00 98.0 F 80 18 140/76 01/01/22 14:40 78 159/79 01/01/22 14:30 78 149/83 01/01/22 14:15 78 157/77 01/01/22 14:00 75 160/73 01/01/22 13:45 75 140/77 01/01/22 13:30 79 131/75 01/01/22 13:15 78 151/69 01/01/22 13:00 76 158/77 01/01/22 12:45 77 153/81 01/01/22 12:30 77 163/83 01/01/22 12:15 80 169/86 01/01/22 12:00 75 149/72 01/01/22 11:45 75 136/82 01/01/22 11:30 75 137/78 01/01/22 11:15 75 138/75 01/01/22 11:10 99.1 F 75 18 129/75 01/01/22 10:00 16 Pulse Ox Pulse Ox 01/02/22 08:13 01/02/22 04:40 01/02/22 03:37 97 01/01/22 23:25 01/01/22 23:18 96 01/01/22 22:00 96 01/01/22 21:42 98 01/01/22 21:04 01/01/22 20:34 01/01/22 20:00 01/01/22 19:35 100 01/01/22 15:59 96 01/01/22 15:00 100 01/01/22 14:40 01/01/22 14:30 01/01/22 14:15 01/01/22 14:00 01/01/22 13:45 01/01/22 13:30 01/01/22 13:15 01/01/22 13:00 01/01/22 12:45 01/01/22 12:30 01/01/22 12:15 01/01/22 12:00 01/01/22 11:45 01/01/22 11:30 01/01/22 11:15 01/01/22 11:10 98 01/01/22 10:00 96 - Physical Examination General: No Apparent Distress HEENT: Positive: PERRL Neck: Positive: neck supple Cardiac: Positive: Reg Rate and Rhythm Lungs: Positive: Decreased Breath Sounds Neuro: Positive: Weakness (Generalized lethargy) Abdomen: Positive: Soft Skin: Positive: Clear Extremities: Absent: edema - Allied health notes Allied health notes reviewed: nursing
[2022-01-02] MEDS: INSULIN LISPRO 100 UNIT/ML SUB-Q SCH ×4 (09:08→21:21)
--- NOTE | 2022-01-02 09:09 | Progress Note ---
Assessment and Plan 66 years old female with history of hypertension, history of heart attack end- stage renal disease on hemodialysis and GERD was brought to the hospital because s/p fall, that occurred 2 days ago. States she did not trip or slip. States she felt dizzy and then found herself on the ground. Denies any CP, SOB, palpitations, diaphoresis prior to or after the fall. Has been having MCKEON,R hip, thigh, knee and leg pain since the fall. Patient also has ESRD and missed her last dialysis session. In the ER patient is found to have troponin of 0.168, BUN of 76 creatinine 9.2, potassium 4.4,CXR: pulmonary edema CT head: no acute intracranial process, CT C-spine: no fracture or traumatic subluxation CT pelvis: no acute fracture or dislocation, XR L spine: no fracture or traumatic subluxation XR R tib fib: no acute fracture or dislocatio,XR R femur: no acute fracture or dislocation, XR R hip with pelvis: no acute fracture or dislocation Going to admit the patient we will put the patient on chest pain pathway. Patient is on fall precaution Past Medical History: acute ID, ESRD, GERD, hypertension, renal failure Past Surgical History: Other (Right anterior chest hemodialysis port) Social history: no significant social history Family history: no significant family history, hypertension Patient awake. On 3 litres O2, O2 saturation 95%. No acute respiratory distress. Patient running low grade temp. No leukocytosis. Blood pressure 137/52 , Pulse 85, respirations 20. Chest xray done 12/22/21 reported Mild patchy opacities in both mid to lower lung zones have cleared. No new pulmonary or pleural abnormality. No pneumothorax. Patient is on Budesonide, albuterol/and atrovent aerosol treatments, Prevacid - Patient Problems (1) Pulmonary infiltrates Status: Acute Plan to address problem: Patchy opacities in both mid to lower lung zones have cleared. No new pulmonary or pleural abnormality. No pneumothorax (2) Contusion of right lower extremity Status: Acute Plan to address problem: Management as promary care and wound care. (3) Syncope Status: Acute Plan to address problem: Blood pressure 118/61 Management as primary care and neurology. (4) ESRD (end stage renal disease) on dialysis Status: Chronic Plan to address problem: Management as per nephrology. (5) Hypertension Status: Chronic Plan to address problem: Management as per primary care. (6) Type 2 diabetes mellitus with diabetic chronic kidney disease Status: Chronic Plan to address problem: Management as per primary care. (7) Rectal bleeding Status: Acute Plan to address problem: Heparin was stopped. Management as per gastroenterology. Subjective Date of service: 01/02/22 Principal diagnosis: Septic shock ; Bacteremia; ESRD on dialysis; AMS; NSTEMI; HTN; DM II Interval history: 66 years old female with history of hypertension, history of heart attack end-stage renal disease on hemodialysis and GERD was brought to the hospital because s/p fall, that occurred 2 days ago. States she did not trip or slip. States she felt dizzy and then found herself on the ground. Denies any CP, SOB, palpitations, diaphoresis prior to or after the fall. Has been having MCKEON,R hip, thigh, knee and leg pain since the fall. Patient also has ESRD and missed her last dialysis session. In the ER patient is found to have troponin of 0.168, BUN of 76 creatinine 9.2, potassium 4.4,CXR: pulmonary edema CT head: no acute intracranial process, CT C-spine: no fracture or traumatic subluxation CT pelvis: no acute fracture or dislocation, XR L spine: no fracture or traumatic subluxation XR R tib fib: no acute fracture or dislocatio,XR R femur: no acute fracture or dislocation, XR R hip with pelvis: no acute fracture or dislocation Going to admit the patient we will put the patient on chest pain pathway. Patient is on fall precaution Past Medical History: acute ID, ESRD, GERD, hypertension, renal failure Past Surgical History: Other (Right anterior chest hemodialysis port) Social history: no significant social history Family history: no significant family history, hypertension Patient awake. On 3 litres O2, O2 saturation 95%. No acute respiratory distress. Patient running low grade temp. No leukocytosis. Blood pressure 137/52 , Pulse 85, respirations 20. Chest xray done 12/22/21 reported Mild patchy opacities in both mid to lower lung zones have cleared. No new pulmonary or pleural abnormality. No pneumothorax. Patient is on Budesonide, albuterol/and atrovent aerosol treatments, Prevacid Objective Vital Signs - 12hr 01/01/22 01/01/22 01/01/22 21:42 22:00 23:18 Temperature 99.2 F Pulse Rate 82 85 Respiratory 18 18 Rate Blood Pressure 90/45 Blood Pressure [Left] O2 Sat by Pulse 98 96 96 Oximetry 01/01/22 01/02/22 01/02/22 23:25 03:37 04:40 Temperature 97.3 F L Pulse Rate 85 Respiratory 17 20 Rate Blood Pressure 111/69 Blood Pressure 108/70 [Left] O2 Sat by Pulse 97 Oximetry 01/02/22 08:13 Temperature 97.9 F Pulse Rate Respiratory 16 Rate Blood Pressure 106/54 Blood Pressure [Left] O2 Sat by Pulse Oximetry Constitutional: no acute distress, other (elderly female with normal respiratory effort at rest) Eyes: non-icteric ENT: oropharynx moist, other (extubated) Neck: supple, no JVD Effort: normal Ascultation: Bilateral: rhonchi (scant, bases) Percussion: Bilateral: not dull Cardiovascular: regular rate and rhythm Gastrointestinal: normoactive bowel sounds, soft, non-tender, non-distended (protuberant) Integumentary: rash (right groin / ? scar), other (Left upper extremity AV graft; right forearm blisters (open and closed) and induration; no pus) Extremities: no cyanosis, pulses normal, no ischemia or petechiae, edema (right upper extremity) Neurologic: non-focal exam (grossly), pupils equal and round, CN II-XII normal, motor strength normal and Psychiatric: mood appropriate, affect normal CBC and BMP: 01/01/22 04:52 01/01/22 04:52 ABG, PT/INR, D-dimer: ABG ABG pH 7.450 pH Units (7.350-7.450) 12/24/21 Unknown POC ABG pCO2 36.0 mmHg (32.0-48.0) 12/21/21 10:20 ABG pCO2 39.1 mm Hg 12/24/21 Unknown POC ABG pO2 126.1 mmHg (83-108) H 12/21/21 10:20 ABG pO2 109.1 mm Hg (80.0-90.0) H 12/24/21 Unknown POC ABG HCO3 24.3 12/21/21 10:20 ABG O2 Saturation 98.1 % (95.0-99.0) 12/24/21 Unknown PT/INR, D-dimer PT 17.7 Sec. (12.2-14.9) H 12/22/21 14:05 INR 1.30 (0.87-1.13) H 12/22/21 14:05 Abnormal lab findings: Abnormal Labs 12/11/21 12/11/21 12/12/21 14:52 15:40 04:43 WBC RBC 3.57 L Hgb 9.4 L Hct 29.5 L MCH 26 L 27 L RDW 17.8 H 17.9 H Plt Count 119 L 110 L Lymph % (Auto) 4.0 L [place] % (Auto) Lymph # (Auto) 0.3 L [place] # (Auto) Seg Neutrophils % 90.0 H Seg Neuts % (Manual) Lymphocytes % (Manual) Monocytes % (Manual) Basophils % (Manual) Nucleated RBC % Seg Neutrophils # Seg Neutrophils # Man Lymphocytes # (Manual) Percent Retic PT INR Fibrinogen ABG pH POC ABG pO2 ABG pO2 ABG HCO3 ABG O2 Saturation ABG Base Excess ABG Hemoglobin VBG pO2 Oxyhemoglobin Sodium Potassium Chloride Carbon Dioxide 18 L BUN 76 H Creatinine 9.2 H Glucose POC Glucose Lactic Acid Calcium 7.7 L Phosphorus Magnesium Iron TIBC Ferritin Alkaline Phosphatase 237 H Lactate Dehydrogenase Troponin T 0.168 H* C-Reactive Protein Total Protein Albumin 3.6 L LDL Cholesterol Direct 16 L Crossmatch 12/12/21 12/12/21 12/12/21 04:43 04:43 08:49 WBC RBC Hgb Hct MCH RDW Plt Count Lymph % (Auto) [place] % (Auto) Lymph # (Auto) [place] # (Auto) Seg Neutrophils % Seg Neuts % (Manual) Lymphocytes % (Manual) Monocytes % (Manual) Basophils % (Manual) Nucleated RBC % Seg Neutrophils # Seg Neutrophils # Man Lymphocytes # (Manual) Percent Retic PT INR Fibrinogen ABG pH POC ABG pO2 ABG pO2 ABG HCO3 ABG O2 Saturation ABG Base Excess ABG Hemoglobin VBG pO2 Oxyhemoglobin Sodium 136 L Potassium Chloride 96.0 L Carbon Dioxide BUN 85 H Creatinine 9.6 H Glucose 57 L POC Glucose 47 L Lactic Acid Calcium 7.8 L Phosphorus Magnesium Iron TIBC Ferritin Alkaline Phosphatase Lactate Dehydrogenase Troponin T 0.175 H* C-Reactive Protein Total Protein Albumin LDL Cholesterol Direct Crossmatch 12/12/21 12/13/21 12/13/21 11:12 07:30 07:30 WBC RBC Hgb 9.7 L Hct 30.0 L MCH 27 L RDW 18.0 H Plt Count 99 L Lymph % (Auto) 4.8 L [place] % (Auto) Lymph # (Auto) 0.3 L [place] # (Auto) Seg Neutrophils % 88.2 H Seg Neuts % (Manual) Lymphocytes % (Manual) Monocytes % (Manual) Basophils % (Manual) Nucleated RBC % Seg Neutrophils # Seg Neutrophils # Man Lymphocytes # (Manual) Percent Retic PT INR Fibrinogen ABG pH POC ABG pO2 ABG pO2 ABG HCO3 ABG O2 Saturation ABG Base Excess ABG Hemoglobin VBG pO2 Oxyhemoglobin Sodium Potassium 5.1 H Chloride 97.8 L Carbon Dioxide 16 L BUN 92 H Creatinine 10.6 H Glucose 121 H POC Glucose 64 L Lactic Acid Calcium 7.6 L Phosphorus Magnesium Iron TIBC Ferritin Alkaline Phosphatase Lactate Dehydrogenase Troponin T C-Reactive Protein Total Protein Albumin LDL Cholesterol Direct Crossmatch 12/13/21 12/13/21 12/13/21 08:06 11:32 16:59 WBC RBC Hgb Hct MCH RDW Plt Count Lymph % (Auto) [place] % (Auto) Lymph # (Auto) [place] # (Auto) Seg Neutrophils % Seg Neuts % (Manual) Lymphocytes % (Manual) Monocytes % (Manual) Basophils % (Manual) Nucleated RBC % Seg Neutrophils # Seg Neutrophils # Man Lymphocytes # (Manual) Percent Retic PT INR Fibrinogen ABG pH POC ABG pO2 ABG pO2 ABG HCO3 ABG O2 Saturation ABG Base Excess ABG Hemoglobin VBG pO2 Oxyhemoglobin Sodium Potassium Chloride Carbon Dioxide BUN Creatinine Glucose POC Glucose 118 H 128 H 130 H Lactic Acid Calcium Phosphorus Magnesium Iron TIBC Ferritin Alkaline Phosphatase Lactate Dehydrogenase Troponin T C-Reactive Protein Total Protein Albumin LDL Cholesterol Direct Crossmatch 12/13/21 12/14/21 12/14/21 20:16 11:10 11:10 WBC RBC Hgb 9.9 L Hct MCH 27 L RDW 18.1 H Plt Count 82 L Lymph % (Auto) 5.8 L [place] % (Auto) Lymph # (Auto) 0.4 L [place] # (Auto) Seg Neutrophils % 88.3 H Seg Neuts % (Manual) Lymphocytes % (Manual) Monocytes % (Manual) Basophils % (Manual) Nucleated RBC % Seg Neutrophils # Seg Neutrophils # Man Lymphocytes # (Manual) Percent Retic PT INR Fibrinogen ABG pH POC ABG pO2 ABG pO2 ABG HCO3 ABG O2 Saturation ABG Base Excess ABG Hemoglobin VBG pO2 Oxyhemoglobin Sodium Potassium Chloride Carbon Dioxide 21 L BUN 57 H Creatinine 7.1 H Glucose 105 H POC Glucose 113 H Lactic Acid Calcium Phosphorus Magnesium Iron TIBC Ferritin Alkaline Phosphatase Lactate Dehydrogenase Troponin T C-Reactive Protein Total Protein Albumin LDL Cholesterol Direct Crossmatch 12/14/21 12/14/21 12/15/21 11:46 16:41 04:11 WBC RBC Hgb 9.9 L Hct 30.0 L MCH 27 L RDW 18.4 H Plt Count 57 L Lymph % (Auto) [place] % (Auto) Lymph # (Auto) [place] # (Auto) Seg Neutrophils % Seg Neuts % (Manual) Lymphocytes % (Manual) 9.0 L Monocytes % (Manual) 10.0 H Basophils % (Manual) Nucleated RBC % Seg Neutrophils # Seg Neutrophils # Man Lymphocytes # (Manual) 0.6 L Percent Retic PT INR Fibrinogen ABG pH POC ABG pO2 ABG pO2 ABG HCO3 ABG O2 Saturation ABG Base Excess ABG Hemoglobin VBG pO2 Oxyhemoglobin Sodium Potassium Chloride Carbon Dioxide BUN Creatinine Glucose POC Glucose 108 H 111 H Lactic Acid Calcium Phosphorus Magnesium Iron TIBC Ferritin Alkaline Phosphatase Lactate Dehydrogenase Troponin T C-Reactive Protein Total Protein Albumin LDL Cholesterol Direct Crossmatch 12/15/21 12/15/21 12/15/21 04:11 08:48 10:02 WBC RBC Hgb Hct MCH RDW Plt Count Lymph % (Auto) [place] % (Auto) Lymph # (Auto) [place] # (Auto) Seg Neutrophils % Seg Neuts % (Manual) Lymphocytes % (Manual) Monocytes % (Manual) Basophils % (Manual) Nucleated RBC % Seg Neutrophils # Seg Neutrophils # Man Lymphocytes # (Manual) Percent Retic PT INR Fibrinogen ABG pH POC ABG pO2 ABG pO2 ABG HCO3 ABG O2 Saturation ABG Base Excess ABG Hemoglobin VBG pO2 Oxyhemoglobin Sodium Potassium Chloride Carbon Dioxide 19 L BUN 68 H Creatinine 7.6 H Glucose POC Glucose 68 L 65 L Lactic Acid Calcium 8.1 L Phosphorus Magnesium Iron TIBC Ferritin Alkaline Phosphatase Lactate Dehydrogenase Troponin T C-Reactive Protein Total Protein Albumin LDL Cholesterol Direct Crossmatch 12/15/21 12/15/21 12/15/21 10:20 10:51 14:40 WBC RBC Hgb Hct MCH RDW Plt Count Lymph % (Auto) [place] % (Auto) Lymph # (Auto) [place] # (Auto) Seg Neutrophils % Seg Neuts % (Manual) Lymphocytes % (Manual) Monocytes % (Manual) Basophils % (Manual) Nucleated RBC % Seg Neutrophils # Seg Neutrophils # Man Lymphocytes # (Manual) Percent Retic PT INR Fibrinogen ABG pH POC ABG pO2 ABG pO2 ABG HCO3 ABG O2 Saturation ABG Base Excess ABG Hemoglobin VBG pO2 Oxyhemoglobin Sodium Potassium Chloride Carbon Dioxide BUN Creatinine Glucose POC Glucose 59 L 60 L Lactic Acid 2.50 H* Calcium Phosphorus Magnesium Iron TIBC Ferritin Alkaline Phosphatase Lactate Dehydrogenase Troponin T C-Reactive Protein Total Protein Albumin LDL Cholesterol Direct Crossmatch 12/15/21 12/15/21 12/16/21 14:40 19:50 05:00 WBC 12.4 H RBC Hgb 9.6 L Hct 29.4 L MCH 26 L RDW 18.1 H Plt Count 40 L Lymph % (Auto) [place] % (Auto) Lymph # (Auto) [place] # (Auto) Seg Neutrophils % Seg Neuts % (Manual) 95.0 H Lymphocytes % (Manual) 5.0 L Monocytes % (Manual) Basophils % (Manual) Nucleated RBC % Seg Neutrophils # Seg Neutrophils # Man 11.8 H Lymphocytes # (Manual) 0.6 L Percent Retic PT INR Fibrinogen ABG pH POC ABG pO2 ABG pO2 463.3 H ABG HCO3 ABG O2 Saturation 99.6 H ABG Base Excess ABG Hemoglobin 10.9 L VBG pO2 > 258.0 H Oxyhemoglobin Sodium Potassium Chloride Carbon Dioxide BUN Creatinine Glucose POC Glucose Lactic Acid Calcium Phosphorus Magnesium Iron TIBC Ferritin Alkaline Phosphatase Lactate Dehydrogenase Troponin T C-Reactive Protein 38.50 H Total Protein Albumin LDL Cholesterol Direct Crossmatch 12/16/21 12/16/21 12/16/21 05:00 06:15 09:58 WBC RBC Hgb Hct MCH RDW Plt Count Lymph % (Auto) [place] % (Auto) Lymph # (Auto) [place] # (Auto) Seg Neutrophils % Seg Neuts % (Manual) Lymphocytes % (Manual) Monocytes % (Manual) Basophils % (Manual) Nucleated RBC % Seg Neutrophils # Seg Neutrophils # Man Lymphocytes # (Manual) Percent Retic PT INR Fibrinogen ABG pH POC ABG pO2 ABG pO2 48.0 L ABG HCO3 ABG O2 Saturation 80.5 L ABG Base Excess -2.9 L ABG Hemoglobin 11.2 L VBG pO2 Oxyhemoglobin 78.8 L Sodium Potassium Chloride Carbon Dioxide BUN 75 H Creatinine 7.7 H Glucose POC Glucose 67 L Lactic Acid Calcium 8.3 L Phosphorus Magnesium Iron TIBC Ferritin Alkaline Phosphatase Lactate Dehydrogenase Troponin T C-Reactive Protein Total Protein Albumin LDL Cholesterol Direct Crossmatch 12/16/21 12/16/21 12/17/21 11:06 23:24 04:00 WBC 12.3 H RBC 3.32 L Hgb 8.8 L Hct 26.5 L MCH 26 L RDW 18.0 H Plt Count 27 L Lymph % (Auto) 5.9 L [place] % (Auto) Lymph # (Auto) 0.7 L [place] # (Auto) Seg Neutrophils % 88.3 H Seg Neuts % (Manual) Lymphocytes % (Manual) Monocytes % (Manual) Basophils % (Manual) Nucleated RBC % Seg Neutrophils # 10.9 H Seg Neutrophils # Man Lymphocytes # (Manual) Percent Retic PT INR Fibrinogen ABG pH POC ABG pO2 ABG pO2 137.7 H ABG HCO3 ABG O2 Saturation ABG Base Excess ABG Hemoglobin 9.9 L VBG pO2 Oxyhemoglobin Sodium Potassium Chloride Carbon Dioxide BUN Creatinine Glucose POC Glucose 110 H Lactic Acid Calcium Phosphorus Magnesium Iron TIBC Ferritin Alkaline Phosphatase Lactate Dehydrogenase Troponin T C-Reactive Protein Total Protein Albumin LDL Cholesterol Direct Crossmatch 12/17/21 12/17/21 12/17/21 04:30 04:30 11:18 WBC RBC Hgb Hct MCH RDW Plt Count Lymph % (Auto) [place] % (Auto) Lymph # (Auto) [place] # (Auto) Seg Neutrophils % Seg Neuts % (Manual) Lymphocytes % (Manual) Monocytes % (Manual) Basophils % (Manual) Nucleated RBC % Seg Neutrophils # Seg Neutrophils # Man Lymphocytes # (Manual) Percent Retic PT INR Fibrinogen ABG pH POC ABG pO2 ABG pO2 ABG HCO3 ABG O2 Saturation ABG Base Excess ABG Hemoglobin VBG pO2 Oxyhemoglobin Sodium Potassium Chloride Carbon Dioxide BUN 43 H Creatinine 5.0 H Glucose 129 H POC Glucose 149 H Lactic Acid Calcium 7.8 L Phosphorus 1.90 L Magnesium 1.60 L Iron TIBC Ferritin Alkaline Phosphatase Lactate Dehydrogenase Troponin T C-Reactive Protein Total Protein Albumin LDL Cholesterol Direct Crossmatch 12/17/21 12/17/21 12/17/21 14:35 16:58 18:32 WBC RBC Hgb Hct MCH RDW Plt Count Lymph % (Auto) [place] % (Auto) Lymph # (Auto) [place] # (Auto) Seg Neutrophils % Seg Neuts % (Manual) Lymphocytes % (Manual) Monocytes % (Manual) Basophils % (Manual) Nucleated RBC % Seg Neutrophils # Seg Neutrophils # Man Lymphocytes # (Manual) Percent Retic PT 17.4 H INR 1.27 H Fibrinogen 486 H ABG pH 7.316 L POC ABG pO2 ABG pO2 74.0 L ABG HCO3 ABG O2 Saturation 93.7 L ABG Base Excess -3.3 L ABG Hemoglobin 8.8 L VBG pO2 Oxyhemoglobin 91.7 L Sodium Potassium Chloride Carbon Dioxide BUN Creatinine Glucose POC Glucose 219 H Lactic Acid Calcium Phosphorus Magnesium Iron TIBC Ferritin Alkaline Phosphatase Lactate Dehydrogenase Troponin T C-Reactive Protein Total Protein Albumin LDL Cholesterol Direct Crossmatch 12/17/21 12/18/21 12/18/21 23:19 05:00 05:00 WBC 15.3 H RBC 3.25 L Hgb 8.4 L Hct 25.7 L MCH 26 L RDW 18.2 H Plt Count 28 L Lymph % (Auto) [place] % (Auto) Lymph # (Auto) [place] # (Auto) Seg Neutrophils % Seg Neuts % (Manual) 99.0 H Lymphocytes % (Manual) 1.0 L Monocytes % (Manual) Basophils % (Manual) Nucleated RBC % 1.0 H Seg Neutrophils # Seg Neutrophils # Man 15.1 H Lymphocytes # (Manual) 0.2 L Percent Retic 0.37 L PT INR Fibrinogen ABG pH POC ABG pO2 ABG pO2 ABG HCO3 ABG O2 Saturation ABG Base Excess ABG Hemoglobin VBG pO2 Oxyhemoglobin Sodium 135 L Potassium Chloride Carbon Dioxide 20 L BUN 53 H Creatinine 5.2 H Glucose 307 H POC Glucose 313 H Lactic Acid Calcium 8.0 L Phosphorus Magnesium Iron 13 L TIBC 109 L Ferritin Alkaline Phosphatase Lactate Dehydrogenase Troponin T C-Reactive Protein Total Protein Albumin LDL Cholesterol Direct Crossmatch 12/18/21 12/18/21 12/18/21 05:00 05:00 09:00 WBC RBC Hgb Hct MCH RDW Plt Count Lymph % (Auto) [place] % (Auto) Lymph # (Auto) [place] # (Auto) Seg Neutrophils % Seg Neuts % (Manual) Lymphocytes % (Manual) Monocytes % (Manual) Basophils % (Manual) Nucleated RBC % Seg Neutrophils # Seg Neutrophils # Man Lymphocytes # (Manual) Percent Retic PT INR Fibrinogen 481 H ABG pH POC ABG pO2 ABG pO2 50.2 L ABG HCO3 ABG O2 Saturation 81.7 L ABG Base Excess -3.6 L ABG Hemoglobin 8.0 L VBG pO2 Oxyhemoglobin 80.0 L Sodium Potassium Chloride Carbon Dioxide BUN Creatinine Glucose POC Glucose Lactic Acid Calcium Phosphorus Magnesium Iron TIBC Ferritin 383.4 H Alkaline Phosphatase Lactate Dehydrogenase Troponin T C-Reactive Protein Total Protein Albumin LDL Cholesterol Direct Crossmatch 12/18/21 12/18/21 12/18/21 10:56 11:10 12:00 WBC RBC Hgb Hct MCH RDW Plt Count Lymph % (Auto) [place] % (Auto) Lymph # (Auto) [place] # (Auto) Seg Neutrophils % Seg Neuts % (Manual) Lymphocytes % (Manual) Monocytes % (Manual) Basophils % (Manual) Nucleated RBC % Seg Neutrophils # Seg Neutrophils # Man Lymphocytes # (Manual) Percent Retic PT INR Fibrinogen ABG pH POC ABG pO2 ABG pO2 92.7 H ABG HCO3 19.8 L ABG O2 Saturation ABG Base Excess -3.8 L ABG Hemoglobin 6.6 L VBG pO2 Oxyhemoglobin Sodium Potassium Chloride Carbon Dioxide BUN Creatinine Glucose POC Glucose 190 H Lactic Acid Calcium Phosphorus 2.40 L D Magnesium Iron TIBC Ferritin Alkaline Phosphatase Lactate Dehydrogenase Troponin T C-Reactive Protein Total Protein Albumin LDL Cholesterol Direct Crossmatch 12/18/21 12/18/21 12/18/21 18:06 20:00 23:05 WBC 19.2 H RBC 3.51 L Hgb 8.8 L Hct 27.8 L MCH 25 L RDW 18.1 H Plt Count 34 L Lymph % (Auto) [place] % (Auto) Lymph # (Auto) [place] # (Auto) Seg Neutrophils % Seg Neuts % (Manual) Lymphocytes % (Manual) Monocytes % (Manual) Basophils % (Manual) Nucleated RBC % Seg Neutrophils # Seg Neutrophils # Man Lymphocytes # (Manual) Percent Retic PT INR Fibrinogen ABG pH POC ABG pO2 ABG pO2 62.5 L ABG HCO3 26.6 H ABG O2 Saturation 91.7 L ABG Base Excess ABG Hemoglobin 8.4 L VBG pO2 Oxyhemoglobin 89.9 L Sodium Potassium Chloride Carbon Dioxide BUN Creatinine Glucose POC Glucose 156 H Lactic Acid Calcium Phosphorus Magnesium Iron TIBC Ferritin Alkaline Phosphatase Lactate Dehydrogenase Troponin T C-Reactive Protein Total Protein Albumin LDL Cholesterol Direct Crossmatch 12/18/21 12/19/21 12/19/21 23:54 05:00 05:00 WBC 18.9 H RBC 3.29 L Hgb 8.4 L Hct 26.0 L MCH 26 L RDW 18.2 H Plt Count 34 L Lymph % (Auto) [place] % (Auto) Lymph # (Auto) [place] # (Auto) Seg Neutrophils % Seg Neuts % (Manual) 93.0 H Lymphocytes % (Manual) 2.0 L Monocytes % (Manual) Basophils % (Manual) Nucleated RBC % Seg Neutrophils # Seg Neutrophils # Man 17.6 H Lymphocytes # (Manual) 0.4 L Percent Retic PT INR Fibrinogen ABG pH POC ABG pO2 ABG pO2 ABG HCO3 ABG O2 Saturation ABG Base Excess ABG Hemoglobin VBG pO2 Oxyhemoglobin Sodium Potassium Chloride Carbon Dioxide BUN 30 H Creatinine 3.1 H Glucose 155 H POC Glucose 122 H Lactic Acid Calcium 8.2 L Phosphorus Magnesium Iron TIBC Ferritin Alkaline Phosphatase Lactate Dehydrogenase Troponin T C-Reactive Protein Total Protein Albumin LDL Cholesterol Direct Crossmatch 12/19/21 12/19/21 12/19/21 05:29 11:41 17:48 WBC RBC Hgb Hct MCH RDW Plt Count Lymph % (Auto) [place] % (Auto) Lymph # (Auto) [place] # (Auto) Seg Neutrophils % Seg Neuts % (Manual) Lymphocytes % (Manual) Monocytes % (Manual) Basophils % (Manual) Nucleated RBC % Seg Neutrophils # Seg Neutrophils # Man Lymphocytes # (Manual) Percent Retic PT INR Fibrinogen ABG pH POC ABG pO2 ABG pO2 ABG HCO3 ABG O2 Saturation ABG Base Excess ABG Hemoglobin VBG pO2 Oxyhemoglobin Sodium Potassium Chloride Carbon Dioxide BUN Creatinine Glucose POC Glucose 153 H 164 H 113 H Lactic Acid Calcium Phosphorus Magnesium Iron TIBC Ferritin Alkaline Phosphatase Lactate Dehydrogenase Troponin T C-Reactive Protein Total Protein Albumin LDL Cholesterol Direct Crossmatch 12/19/21 12/20/21 12/20/21 23:53 04:45 04:45 WBC 15.0 H RBC 3.39 L Hgb 8.4 L Hct 26.8 L MCH 25 L RDW 17.8 H Plt Count 36 L Lymph % (Auto) [place] % (Auto) Lymph # (Auto) [place] # (Auto) Seg Neutrophils % Seg Neuts % (Manual) Lymphocytes % (Manual) Monocytes % (Manual) Basophils % (Manual) Nucleated RBC % Seg Neutrophils # Seg Neutrophils # Man Lymphocytes # (Manual) Percent Retic PT INR Fibrinogen ABG pH POC ABG pO2 ABG pO2 ABG HCO3 ABG O2 Saturation ABG Base Excess ABG Hemoglobin VBG pO2 Oxyhemoglobin Sodium 135 L Potassium Chloride 96.1 L Carbon Dioxide BUN 48 H Creatinine 3.9 H Glucose 188 H POC Glucose 157 H Lactic Acid Calcium 8.1 L Phosphorus Magnesium Iron TIBC Ferritin Alkaline Phosphatase Lactate Dehydrogenase Troponin T C-Reactive Protein Total Protein Albumin LDL Cholesterol Direct Crossmatch 12/20/21 12/20/21 12/20/21 05:07 11:13 16:35 WBC RBC Hgb Hct MCH RDW Plt Count Lymph % (Auto) [place] % (Auto) Lymph # (Auto) [place] # (Auto) Seg Neutrophils % Seg Neuts % (Manual) Lymphocytes % (Manual) Monocytes % (Manual) Basophils % (Manual) Nucleated RBC % Seg Neutrophils # Seg Neutrophils # Man Lymphocytes # (Manual) Percent Retic PT INR Fibrinogen ABG pH POC ABG pO2 ABG pO2 ABG HCO3 ABG O2 Saturation ABG Base Excess ABG Hemoglobin VBG pO2 Oxyhemoglobin Sodium Potassium Chloride Carbon Dioxide BUN Creatinine Glucose POC Glucose 169 H 198 H 198 H Lactic Acid Calcium Phosphorus Magnesium Iron TIBC Ferritin Alkaline Phosphatase Lactate Dehydrogenase Troponin T C-Reactive Protein Total Protein Albumin LDL Cholesterol Direct Crossmatch 12/20/21 12/21/21 12/21/21 23:50 05:58 08:00 WBC 16.7 H RBC Hgb 9.3 L Hct 29.2 L MCH 25 L RDW 18.5 H Plt Count 62 L Lymph % (Auto) [place] % (Auto) Lymph # (Auto) [place] # (Auto) Seg Neutrophils % Seg Neuts % (Manual) Lymphocytes % (Manual) Monocytes % (Manual) Basophils % (Manual) Nucleated RBC % Seg Neutrophils # Seg Neutrophils # Man Lymphocytes # (Manual) Percent Retic PT INR Fibrinogen ABG pH POC ABG pO2 ABG pO2 ABG HCO3 ABG O2 Saturation ABG Base Excess ABG Hemoglobin VBG pO2 Oxyhemoglobin Sodium Potassium Chloride Carbon Dioxide BUN Creatinine Glucose POC Glucose 176 H 185 H Lactic Acid Calcium Phosphorus Magnesium Iron TIBC Ferritin Alkaline Phosphatase Lactate Dehydrogenase Troponin T C-Reactive Protein Total Protein Albumin LDL Cholesterol Direct Crossmatch 12/21/21 12/21/21 12/21/21 08:35 08:35 10:20 WBC RBC Hgb Hct MCH RDW Plt Count Lymph % (Auto) [place] % (Auto) Lymph # (Auto) [place] # (Auto) Seg Neutrophils % Seg Neuts % (Manual) Lymphocytes % (Manual) Monocytes % (Manual) Basophils % (Manual) Nucleated RBC % Seg Neutrophils # Seg Neutrophils # Man Lymphocytes # (Manual) Percent Retic PT 16.4 H INR 1.18 H Fibrinogen ABG pH POC ABG pO2 126.1 H ABG pO2 ABG HCO3 ABG O2 Saturation ABG Base Excess ABG Hemoglobin 11.1 L VBG pO2 Oxyhemoglobin Sodium Potassium 3.5 L Chloride Carbon Dioxide BUN 36 H Creatinine 2.7 H Glucose 174 H POC Glucose Lactic Acid Calcium 8.3 L Phosphorus Magnesium Iron TIBC Ferritin Alkaline Phosphatase Lactate Dehydrogenase 249 H Troponin T C-Reactive Protein Total Protein Albumin LDL Cholesterol Direct Crossmatch 12/21/21 12/21/21 12/21/21 11:18 17:14 18:00 WBC 20.2 H RBC Hgb 9.9 L Hct MCH 25 L RDW 18.0 H Plt Count 60 L Lymph % (Auto) [place] % (Auto) Lymph # (Auto) [place] # (Auto) Seg Neutrophils % Seg Neuts % (Manual) Lymphocytes % (Manual) Monocytes % (Manual) Basophils % (Manual) Nucleated RBC % Seg Neutrophils # Seg Neutrophils # Man Lymphocytes # (Manual) Percent Retic PT INR Fibrinogen ABG pH POC ABG pO2 ABG pO2 ABG HCO3 ABG O2 Saturation ABG Base Excess ABG Hemoglobin VBG pO2 Oxyhemoglobin Sodium Potassium Chloride Carbon Dioxide BUN Creatinine Glucose POC Glucose 181 H 222 H Lactic Acid Calcium Phosphorus Magnesium Iron TIBC Ferritin Alkaline Phosphatase Lactate Dehydrogenase Troponin T C-Reactive Protein Total Protein Albumin LDL Cholesterol Direct Crossmatch 12/21/21 12/21/21 12/22/21 19:26 23:28 04:14 WBC 23.9 H RBC Hgb Hct MCH 25 L RDW 17.8 H Plt Count 68 L Lymph % (Auto) [place] % (Auto) Lymph # (Auto) [place] # (Auto) Seg Neutrophils % Seg Neuts % (Manual) Lymphocytes % (Manual) Monocytes % (Manual) Basophils % (Manual) Nucleated RBC % Seg Neutrophils # Seg Neutrophils # Man Lymphocytes # (Manual) Percent Retic PT INR Fibrinogen ABG pH POC ABG pO2 ABG pO2 ABG HCO3 ABG O2 Saturation ABG Base Excess ABG Hemoglobin VBG pO2 Oxyhemoglobin Sodium Potassium Chloride Carbon Dioxide BUN Creatinine Glucose POC Glucose 214 H 260 H Lactic Acid Calcium Phosphorus Magnesium Iron TIBC Ferritin Alkaline Phosphatase Lactate Dehydrogenase Troponin T C-Reactive Protein Total Protein Albumin LDL Cholesterol Direct Crossmatch 12/22/21 12/22/21 12/22/21 04:14 05:28 11:12 WBC RBC Hgb Hct MCH RDW Plt Count Lymph % (Auto) [place] % (Auto) Lymph # (Auto) [place] # (Auto) Seg Neutrophils % Seg Neuts % (Manual) Lymphocytes % (Manual) Monocytes % (Manual) Basophils % (Manual) Nucleated RBC % Seg Neutrophils # Seg Neutrophils # Man Lymphocytes # (Manual) Percent Retic PT INR Fibrinogen ABG pH POC ABG pO2 ABG pO2 ABG HCO3 ABG O2 Saturation ABG Base Excess ABG Hemoglobin VBG pO2 Oxyhemoglobin Sodium 136 L Potassium 3.0 L Chloride Carbon Dioxide BUN 52 H Creatinine 3.5 H Glucose 202 H POC Glucose 223 H 191 H Lactic Acid Calcium 8.1 L Phosphorus Magnesium Iron TIBC Ferritin Alkaline Phosphatase Lactate Dehydrogenase Troponin T C-Reactive Protein Total Protein Albumin LDL Cholesterol Direct Crossmatch 12/22/21 12/22/21 12/23/21 14:05 17:57 04:39 WBC 21.1 H RBC Hgb 10.0 L Hct MCH 26 L RDW 17.6 H Plt Count 79 L Lymph % (Auto) [place] % (Auto) Lymph # (Auto) [place] # (Auto) Seg Neutrophils % Seg Neuts % (Manual) Lymphocytes % (Manual) Monocytes % (Manual) Basophils % (Manual) Nucleated RBC % Seg Neutrophils # Seg Neutrophils # Man Lymphocytes # (Manual) Percent Retic PT 17.7 H INR 1.30 H Fibrinogen ABG pH POC ABG pO2 ABG pO2 ABG HCO3 ABG O2 Saturation ABG Base Excess ABG Hemoglobin VBG pO2 Oxyhemoglobin Sodium Potassium Chloride Carbon Dioxide BUN Creatinine Glucose POC Glucose 140 H Lactic Acid Calcium Phosphorus Magnesium Iron TIBC Ferritin Alkaline Phosphatase Lactate Dehydrogenase Troponin T C-Reactive Protein Total Protein Albumin LDL Cholesterol Direct Crossmatch 12/23/21 12/23/21 12/23/21 04:39 05:11 11:44 WBC RBC Hgb Hct MCH RDW Plt Count Lymph % (Auto) [place] % (Auto) Lymph # (Auto) [place] # (Auto) Seg Neutrophils % Seg Neuts % (Manual) Lymphocytes % (Manual) Monocytes % (Manual) Basophils % (Manual) Nucleated RBC % Seg Neutrophils # Seg Neutrophils # Man Lymphocytes # (Manual) Percent Retic PT INR Fibrinogen ABG pH POC ABG pO2 ABG pO2 ABG HCO3 ABG O2 Saturation ABG Base Excess ABG Hemoglobin VBG pO2 Oxyhemoglobin Sodium 136 L Potassium Chloride Carbon Dioxide 19 L BUN 61 H Creatinine 4.5 H Glucose 113 H POC Glucose 109 H 132 H Lactic Acid Calcium 7.9 L Phosphorus 4.90 H Magnesium Iron TIBC Ferritin Alkaline Phosphatase Lactate Dehydrogenase Troponin T C-Reactive Protein Total Protein Albumin LDL Cholesterol Direct Crossmatch 12/23/21 12/23/21 12/23/21 14:05 16:20 16:59 WBC RBC Hgb 9.3 L Hct 28.7 L MCH RDW Plt Count Lymph % (Auto) [place] % (Auto) Lymph # (Auto) [place] # (Auto) Seg Neutrophils % Seg Neuts % (Manual) Lymphocytes % (Manual) Monocytes % (Manual) Basophils % (Manual) Nucleated RBC % Seg Neutrophils # Seg Neutrophils # Man Lymphocytes # (Manual) Percent Retic PT INR Fibrinogen ABG pH POC ABG pO2 ABG pO2 ABG HCO3 ABG O2 Saturation ABG Base Excess ABG Hemoglobin VBG pO2 Oxyhemoglobin Sodium Potassium Chloride Carbon Dioxide BUN Creatinine Glucose POC Glucose 180 H Lactic Acid Calcium Phosphorus Magnesium Iron TIBC Ferritin Alkaline Phosphatase Lactate Dehydrogenase Troponin T C-Reactive Protein Total Protein Albumin LDL Cholesterol Direct Crossmatch See Detail 12/23/21 12/23/21 12/24/21 21:44 23:30 03:45 WBC RBC Hgb Hct MCH RDW Plt Count Lymph % (Auto) [place] % (Auto) Lymph # (Auto) [place] # (Auto) Seg Neutrophils % Seg Neuts % (Manual) Lymphocytes % (Manual) Monocytes % (Manual) Basophils % (Manual) Nucleated RBC % Seg Neutrophils # Seg Neutrophils # Man Lymphocytes # (Manual) Percent Retic PT INR Fibrinogen ABG pH POC ABG pO2 ABG pO2 ABG HCO3 ABG O2 Saturation ABG Base Excess ABG Hemoglobin VBG pO2 Oxyhemoglobin Sodium Potassium Chloride Carbon Dioxide BUN Creatinine Glucose POC Glucose 141 H 146 H 199 H Lactic Acid Calcium Phosphorus Magnesium Iron TIBC Ferritin Alkaline Phosphatase Lactate Dehydrogenase Troponin T C-Reactive Protein Total Protein Albumin LDL Cholesterol Direct Crossmatch 12/24/21 12/24/21 12/24/21 06:00 06:00 12:37 WBC 16.8 H RBC 2.96 L Hgb 7.5 L Hct 23.3 L MCH 26 L RDW 17.8 H Plt Count 89 L Lymph % (Auto) [place] % (Auto) Lymph # (Auto) [place] # (Auto) Seg Neutrophils % Seg Neuts % (Manual) Lymphocytes % (Manual) Monocytes % (Manual) Basophils % (Manual) Nucleated RBC % Seg Neutrophils # Seg Neutrophils # Man Lymphocytes # (Manual) Percent Retic PT INR Fibrinogen ABG pH POC ABG pO2 ABG pO2 ABG HCO3 ABG O2 Saturation ABG Base Excess ABG Hemoglobin VBG pO2 Oxyhemoglobin Sodium Potassium 3.3 L Chloride 97.3 L Carbon Dioxide BUN 31 H Creatinine 2.8 H Glucose 208 H POC Glucose 181 H Lactic Acid Calcium 7.6 L Phosphorus Magnesium Iron TIBC Ferritin Alkaline Phosphatase Lactate Dehydrogenase Troponin T C-Reactive Protein Total Protein Albumin LDL Cholesterol Direct Crossmatch 12/24/21 12/24/21 12/24/21 14:00 17:23 21:50 WBC RBC Hgb 7.4 L 8.8 L Hct 22.0 L 25.9 L MCH RDW Plt Count Lymph % (Auto) [place] % (Auto) Lymph # (Auto) [place] # (Auto) Seg Neutrophils % Seg Neuts % (Manual) Lymphocytes % (Manual) Monocytes % (Manual) Basophils % (Manual) Nucleated RBC % Seg Neutrophils # Seg Neutrophils # Man Lymphocytes # (Manual) Percent Retic PT INR Fibrinogen ABG pH POC ABG pO2 ABG pO2 ABG HCO3 ABG O2 Saturation ABG Base Excess ABG Hemoglobin VBG pO2 Oxyhemoglobin Sodium Potassium Chloride Carbon Dioxide BUN Creatinine Glucose POC Glucose 167 H Lactic Acid Calcium Phosphorus Magnesium Iron TIBC Ferritin Alkaline Phosphatase Lactate Dehydrogenase Troponin T C-Reactive Protein Total Protein Albumin LDL Cholesterol Direct Crossmatch 12/24/21 12/24/21 12/25/21 23:54 Unknown 05:12 WBC 17.4 H RBC 3.10 L Hgb 8.3 L Hct 24.7 L MCH 27 L RDW 17.7 H Plt Count 105 L Lymph % (Auto) [place] % (Auto) Lymph # (Auto) [place] # (Auto) Seg Neutrophils % Seg Neuts % (Manual) Lymphocytes % (Manual) Monocytes % (Manual) Basophils % (Manual) Nucleated RBC % Seg Neutrophils # Seg Neutrophils # Man Lymphocytes # (Manual) Percent Retic PT INR Fibrinogen ABG pH POC ABG pO2 ABG pO2 109.1 H ABG HCO3 26.6 H ABG O2 Saturation ABG Base Excess ABG Hemoglobin 6.8 L VBG pO2 Oxyhemoglobin Sodium Potassium Chloride Carbon Dioxide BUN Creatinine Glucose POC Glucose 174 H Lactic Acid Calcium Phosphorus Magnesium Iron TIBC Ferritin Alkaline Phosphatase Lactate Dehydrogenase Troponin T C-Reactive Protein Total Protein Albumin LDL Cholesterol Direct Crossmatch 12/25/21 12/25/21 12/25/21 05:12 05:27 11:08 WBC RBC Hgb Hct MCH RDW Plt Count Lymph % (Auto) [place] % (Auto) Lymph # (Auto) [place] # (Auto) Seg Neutrophils % Seg Neuts % (Manual) Lymphocytes % (Manual) Monocytes % (Manual) Basophils % (Manual) Nucleated RBC % Seg Neutrophils # Seg Neutrophils # Man Lymphocytes # (Manual) Percent Retic PT INR Fibrinogen ABG pH POC ABG pO2 ABG pO2 ABG HCO3 ABG O2 Saturation ABG Base Excess ABG Hemoglobin VBG pO2 Oxyhemoglobin Sodium Potassium 3.5 L Chloride Carbon Dioxide BUN 38 H Creatinine 3.7 H Glucose 201 H POC Glucose 202 H 185 H Lactic Acid Calcium 8.0 L Phosphorus Magnesium Iron TIBC Ferritin Alkaline Phosphatase Lactate Dehydrogenase Troponin T C-Reactive Protein Total Protein Albumin LDL Cholesterol Direct Crossmatch 12/25/21 12/25/21 12/25/21 12:23 16:45 22:36 WBC RBC Hgb Hct MCH RDW Plt Count Lymph % (Auto) [place] % (Auto) Lymph # (Auto) [place] # (Auto) Seg Neutrophils % Seg Neuts % (Manual) Lymphocytes % (Manual) Monocytes % (Manual) Basophils % (Manual) Nucleated RBC % Seg Neutrophils # Seg Neutrophils # Man Lymphocytes # (Manual) Percent Retic PT INR Fibrinogen ABG pH POC ABG pO2 ABG pO2 ABG HCO3 ABG O2 Saturation ABG Base Excess ABG Hemoglobin VBG pO2 Oxyhemoglobin Sodium Potassium Chloride Carbon Dioxide BUN Creatinine Glucose POC Glucose 165 H 109 H 133 H Lactic Acid Calcium Phosphorus Magnesium Iron TIBC Ferritin Alkaline Phosphatase Lactate Dehydrogenase Troponin T C-Reactive Protein Total Protein Albumin LDL Cholesterol Direct Crossmatch 12/26/21 12/26/21 12/26/21 11:19 16:03 17:56 WBC RBC Hgb Hct MCH RDW Plt Count Lymph % (Auto) [place] % (Auto) Lymph # (Auto) [place] # (Auto) Seg Neutrophils % Seg Neuts % (Manual) Lymphocytes % (Manual) Monocytes % (Manual) Basophils % (Manual) Nucleated RBC % Seg Neutrophils # Seg Neutrophils # Man Lymphocytes # (Manual) Percent Retic PT INR Fibrinogen ABG pH POC ABG pO2 ABG pO2 ABG HCO3 ABG O2 Saturation ABG Base Excess ABG Hemoglobin VBG pO2 Oxyhemoglobin Sodium Potassium Chloride Carbon Dioxide BUN Creatinine Glucose POC Glucose 59 L 41 L 51 L Lactic Acid Calcium Phosphorus Magnesium Iron TIBC Ferritin Alkaline Phosphatase Lactate Dehydrogenase Troponin T C-Reactive Protein Total Protein Albumin LDL Cholesterol Direct Crossmatch 12/26/21 12/26/21 12/26/21 19:19 23:15 Unknown WBC 14.2 H RBC 3.14 L Hgb 8.5 L Hct 25.1 L MCH 27 L RDW 17.4 H Plt Count 119 L Lymph % (Auto) 8.0 L [place] % (Auto) 8.9 H Lymph # (Auto) 1.1 L [place] # (Auto) 1.3 H Seg Neutrophils % 81.7 H Seg Neuts % (Manual) Lymphocytes % (Manual) Monocytes % (Manual) Basophils % (Manual) Nucleated RBC % Seg Neutrophils # 11.6 H Seg Neutrophils # Man Lymphocytes # (Manual) Percent Retic PT INR Fibrinogen ABG pH POC ABG pO2 ABG pO2 ABG HCO3 ABG O2 Saturation ABG Base Excess ABG Hemoglobin VBG pO2 Oxyhemoglobin Sodium Potassium Chloride Carbon Dioxide BUN Creatinine Glucose POC Glucose 110 H 127 H Lactic Acid Calcium Phosphorus Magnesium Iron TIBC Ferritin Alkaline Phosphatase Lactate Dehydrogenase Troponin T C-Reactive Protein Total Protein Albumin LDL Cholesterol Direct Crossmatch 12/27/21 12/27/21 12/27/21 04:00 04:00 05:18 WBC RBC 2.81 L Hgb 7.7 L Hct 22.6 L MCH 27 L RDW 18.0 H Plt Count 120 L Lymph % (Auto) [place] % (Auto) Lymph # (Auto) [place] # (Auto) Seg Neutrophils % Seg Neuts % (Manual) Lymphocytes % (Manual) Monocytes % (Manual) Basophils % (Manual) Nucleated RBC % Seg Neutrophils # Seg Neutrophils # Man Lymphocytes # (Manual) Percent Retic PT INR Fibrinogen ABG pH POC ABG pO2 ABG pO2 ABG HCO3 ABG O2 Saturation ABG Base Excess ABG Hemoglobin VBG pO2 Oxyhemoglobin Sodium Potassium Chloride Carbon Dioxide BUN 39 H Creatinine 3.7 H Glucose 147 H POC Glucose 130 H Lactic Acid Calcium 8.0 L Phosphorus Magnesium Iron TIBC Ferritin Alkaline Phosphatase 222 H Lactate Dehydrogenase Troponin T C-Reactive Protein Total Protein 5.9 L Albumin 1.7 L LDL Cholesterol Direct Crossmatch 12/27/21 12/27/21 12/27/21 10:59 18:57 23:59 WBC RBC Hgb Hct MCH RDW Plt Count Lymph % (Auto) [place] % (Auto) Lymph # (Auto) [place] # (Auto) Seg Neutrophils % Seg Neuts % (Manual) Lymphocytes % (Manual) Monocytes % (Manual) Basophils % (Manual) Nucleated RBC % Seg Neutrophils # Seg Neutrophils # Man Lymphocytes # (Manual) Percent Retic PT INR Fibrinogen ABG pH POC ABG pO2 ABG pO2 ABG HCO3 ABG O2 Saturation ABG Base Excess ABG Hemoglobin VBG pO2 Oxyhemoglobin Sodium Potassium Chloride Carbon Dioxide BUN Creatinine Glucose POC Glucose 182 H 168 H 154 H Lactic Acid Calcium Phosphorus Magnesium Iron TIBC Ferritin Alkaline Phosphatase Lactate Dehydrogenase Troponin T C-Reactive Protein Total Protein Albumin LDL Cholesterol Direct Crossmatch 12/28/21 12/28/21 12/28/21 06:06 11:18 16:41 WBC RBC Hgb Hct MCH RDW Plt Count Lymph % (Auto) [place] % (Auto) Lymph # (Auto) [place] # (Auto) Seg Neutrophils % Seg Neuts % (Manual) Lymphocytes % (Manual) Monocytes % (Manual) Basophils % (Manual) Nucleated RBC % Seg Neutrophils # Seg Neutrophils # Man Lymphocytes # (Manual) Percent Retic PT INR Fibrinogen ABG pH POC ABG pO2 ABG pO2 ABG HCO3 ABG O2 Saturation ABG Base Excess ABG Hemoglobin VBG pO2 Oxyhemoglobin Sodium Potassium Chloride Carbon Dioxide BUN Creatinine Glucose POC Glucose 110 H 159 H 106 H Lactic Acid Calcium Phosphorus Magnesium Iron TIBC Ferritin Alkaline Phosphatase Lactate Dehydrogenase Troponin T C-Reactive Protein Total Protein Albumin LDL Cholesterol Direct Crossmatch 12/28/21 12/29/21 12/29/21 23:43 05:40 06:30 WBC RBC 2.73 L Hgb 7.5 L Hct 22.1 L MCH 27 L RDW 18.0 H Plt Count Lymph % (Auto) [place] % (Auto) Lymph # (Auto) [place] # (Auto) Seg Neutrophils % Seg Neuts % (Manual) Lymphocytes % (Manual) Monocytes % (Manual) Basophils % (Manual) Nucleated RBC % Seg Neutrophils # Seg Neutrophils # Man Lymphocytes # (Manual) Percent Retic PT INR Fibrinogen ABG pH POC ABG pO2 ABG pO2 ABG HCO3 ABG O2 Saturation ABG Base Excess ABG Hemoglobin VBG pO2 Oxyhemoglobin Sodium Potassium Chloride Carbon Dioxide BUN Creatinine Glucose POC Glucose 171 H 143 H Lactic Acid Calcium Phosphorus Magnesium Iron TIBC Ferritin Alkaline Phosphatase Lactate Dehydrogenase Troponin T C-Reactive Protein Total Protein Albumin LDL Cholesterol Direct Crossmatch 12/29/21 12/29/21 12/29/21 06:30 16:42 22:59 WBC RBC Hgb Hct MCH RDW Plt Count Lymph % (Auto) [place] % (Auto) Lymph # (Auto) [place] # (Auto) Seg Neutrophils % Seg Neuts % (Manual) Lymphocytes % (Manual) Monocytes % (Manual) Basophils % (Manual) Nucleated RBC % Seg Neutrophils # Seg Neutrophils # Man Lymphocytes # (Manual) Percent Retic PT INR Fibrinogen ABG pH POC ABG pO2 ABG pO2 ABG HCO3 ABG O2 Saturation ABG Base Excess ABG Hemoglobin VBG pO2 Oxyhemoglobin Sodium 132 L D Potassium 3.3 L Chloride 95.9 L Carbon Dioxide BUN 30 H Creatinine 3.3 H Glucose 164 H POC Glucose 107 H 146 H Lactic Acid Calcium 7.8 L Phosphorus Magnesium Iron TIBC Ferritin Alkaline Phosphatase Lactate Dehydrogenase Troponin T C-Reactive Protein Total Protein Albumin LDL Cholesterol Direct Crossmatch 12/30/21 12/30/21 12/30/21 04:56 04:56 05:35 WBC 4.2 L RBC 2.83 L Hgb 7.5 L Hct 23.1 L MCH 27 L RDW 18.3 H Plt Count Lymph % (Auto) [place] % (Auto) Lymph # (Auto) [place] # (Auto) Seg Neutrophils % Seg Neuts % (Manual) Lymphocytes % (Manual) Monocytes % (Manual) Basophils % (Manual) Nucleated RBC % Seg Neutrophils # Seg Neutrophils # Man Lymphocytes # (Manual) Percent Retic PT INR Fibrinogen ABG pH POC ABG pO2 ABG pO2 ABG HCO3 ABG O2 Saturation ABG Base Excess ABG Hemoglobin VBG pO2 Oxyhemoglobin Sodium 136 L Potassium 3.4 L Chloride Carbon Dioxide BUN 37 H Creatinine 4.2 H Glucose 117 H POC Glucose 113 H Lactic Acid Calcium 7.7 L Phosphorus Magnesium Iron TIBC Ferritin Alkaline Phosphatase Lactate Dehydrogenase Troponin T C-Reactive Protein Total Protein Albumin LDL Cholesterol Direct Crossmatch 12/30/21 12/30/21 12/30/21 07:24 16:58 23:21 WBC RBC Hgb Hct MCH RDW Plt Count Lymph % (Auto) [place] % (Auto) Lymph # (Auto) [place] # (Auto) Seg Neutrophils % Seg Neuts % (Manual) Lymphocytes % (Manual) Monocytes % (Manual) Basophils % (Manual) Nucleated RBC % Seg Neutrophils # Seg Neutrophils # Man Lymphocytes # (Manual) Percent Retic PT INR Fibrinogen ABG pH POC ABG pO2 ABG pO2 ABG HCO3 ABG O2 Saturation ABG Base Excess ABG Hemoglobin VBG pO2 Oxyhemoglobin Sodium Potassium Chloride Carbon Dioxide BUN Creatinine Glucose POC Glucose 125 H 134 H 153 H Lactic Acid Calcium Phosphorus Magnesium Iron TIBC Ferritin Alkaline Phosphatase Lactate Dehydrogenase Troponin T C-Reactive Protein Total Protein Albumin LDL Cholesterol Direct Crossmatch 12/31/21 12/31/21 12/31/21 05:55 11:34 Unknown WBC RBC Hgb Hct MCH RDW Plt Count Lymph % (Auto) [place] % (Auto) Lymph # (Auto) [place] # (Auto) Seg Neutrophils % Seg Neuts % (Manual) Lymphocytes % (Manual) Monocytes % (Manual) Basophils % (Manual) Nucleated RBC % Seg Neutrophils # Seg Neutrophils # Man Lymphocytes # (Manual) Percent Retic PT INR Fibrinogen ABG pH POC ABG pO2 ABG pO2 ABG HCO3 ABG O2 Saturation ABG Base Excess ABG Hemoglobin VBG pO2 Oxyhemoglobin Sodium Potassium Chloride Carbon Dioxide 31 H BUN Creatinine 2.7 H Glucose 148 H POC Glucose 127 H 114 H Lactic Acid Calcium Phosphorus Magnesium Iron TIBC Ferritin Alkaline Phosphatase Lactate Dehydrogenase Troponin T C-Reactive Protein Total Protein Albumin LDL Cholesterol Direct Crossmatch 01/01/22 01/01/22 01/01/22 04:52 04:52 16:20 WBC RBC 2.64 L Hgb 7.2 L Hct 21.7 L MCH 27 L RDW 18.3 H Plt Count Lymph % (Auto) [place] % (Auto) Lymph # (Auto) [place] # (Auto) Seg Neutrophils % Seg Neuts % (Manual) Lymphocytes % (Manual) Monocytes % (Manual) 8.0 H Basophils % (Manual) 2.0 H Nucleated RBC % Seg Neutrophils # Seg Neutrophils # Man Lymphocytes # (Manual) 1.0 L Percent Retic PT INR Fibrinogen ABG pH POC ABG pO2 ABG pO2 ABG HCO3 ABG O2 Saturation ABG Base Excess ABG Hemoglobin VBG pO2 Oxyhemoglobin Sodium Potassium Chloride Carbon Dioxide BUN 21 H Creatinine 3.4 H Glucose POC Glucose 116 H Lactic Acid Calcium 8.2 L Phosphorus Magnesium Iron TIBC Ferritin Alkaline Phosphatase Lactate Dehydrogenase Troponin T C-Reactive Protein Total Protein Albumin LDL Cholesterol Direct Crossmatch 01/01/22 20:07 WBC RBC Hgb Hct MCH RDW Plt Count Lymph % (Auto) [place] % (Auto) Lymph # (Auto) [place] # (Auto) Seg Neutrophils % Seg Neuts % (Manual) Lymphocytes % (Manual) Monocytes % (Manual) Basophils % (Manual) Nucleated RBC % Seg Neutrophils # Seg Neutrophils # Man Lymphocytes # (Manual) Percent Retic PT INR Fibrinogen ABG pH POC ABG pO2 ABG pO2 ABG HCO3 ABG O2 Saturation ABG Base Excess ABG Hemoglobin VBG pO2 Oxyhemoglobin Sodium Potassium Chloride Carbon Dioxide BUN Creatinine Glucose POC Glucose 213 H Lactic Acid Calcium Phosphorus Magnesium Iron TIBC Ferritin Alkaline Phosphatase Lactate Dehydrogenase Troponin T C-Reactive Protein Total Protein Albumin LDL Cholesterol Direct Crossmatch Allied health notes reviewed: nursing
[2022-01-02] MEDS: LANSOPRAZOLE 30 MG SOLUTAB FEEDTUBE SCH (09:21)
[2022-01-02] MEDS: MIDODRINE 5 MG TAB FEEDTUBE SCH ×3 (09:21→17:00)
[2022-01-02] MEDS: CALCITRIOL 0.5 MCG CAP PO SCH (09:21)
[2022-01-02] MEDS: carvediloL 6.25 MG TAB PO SCH ×2 (09:21→21:17)
[2022-01-02] MEDS: IPRATROPIUM/ALBUTEROL SULFATE 3 ML AMPUL.NEB IH SCH ×3 (09:28→21:16)
[2022-01-02] MEDS: BUDESONIDE 0.5 MG/2 ML NEBU IH SCH ×2 (09:28→21:16)
--- NOTE | 2022-01-02 10:01 | Electrocardiograph Report ---
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
--- NOTE | 2022-01-02 11:41 | Progress Note ---
Assessment and Plan Assessment and plan: This is a 66-year-old female with known past medical history of ESRD on HD, HTN, heart-attack, and GERD initially admitted to the floor s/p fall at home. Patient was transferred to the ICU due to septic shock 09/17 GPC bacteremia requiring vasopressor. Hospital Course to Date: 12/12: No acute events overnight, reports extreme pain in her right leg, denies chest pain or shortness of breath 12/13: No acute events overnight, patient tearful and complaining of right leg pain however she is refusing analgesic medication 12/14: Continues to have right leg pain, does not participate in interview 12/15: Patient transferred to the ICU for hypotension on Levophed drip however she was weaned off by morning and midodrine was increased due to borderline MAP. Blood cultures grew 11/17 gram-positive cocci with suspected right upper chest permacath source. Patient started on vancomycin and infectious disease consulted. Plan for IR consult for permacath removal and assessment of aVF functioning. Possible temporary Vas-Cath placement for hemodialysis. Patient is encephalopathic likely secondary to sepsis. Continue current antibiotics and repeat 2D echo and blood cultures in the a.m. Right upper extremity swelling and pain noted and right upper extremity XR and Doppler ordered. 12/16: Patient noted to have blisters on left arm and RN asked to elevate and place cool compresses to site. AV fistula on left upper extremity access by hemodialysis nurse and hemodialysis ongoing. Vasopressin ordered in efforts to wean Levophed while on hemodialysis. Echocardiogram repeated. Blood cultures grew beta-hemolytic strep group B and antibiotics changed to ceftriaxone. Dobutamine drip discontinued. Remained sedated on fentanyl drip. 12/17: Thrombocytopenia worse today, unable to tolerate being off vasopressin, started on steroids, HIT assay ordered-discontinued. SCDs for now. [facility] will like to give normal saline 100 ml/hr for 2 L. 12/18: Wound care consult placed for right upper extremity, PSV trials today, weaning Levophed, dialysis planned for today. Hematology/oncology consulted yesterday who recommends twice daily Solu-Medrol. No acute events reported overnight. Patient will be started on IV iron 12/19: PSV today, mentation better and intermittently follows commands. Platelets stable. Reglan started for vomiting and will slowly increase TF. KUB with no acu te process. 5/7: PSV today, mentation unchanged, CTH without acute findings, Platelets remains stable with no signs of bleeding, high residuals reported overnight and TF was off from approximately [id number]. TF resumed around 0 at currently at 20/hr. RN to increase as tolerated. [facility] plans extubation Wednesday. HD today. Will keep femoral line for now in setting of low plts 12/21: Patient had moderate BM today with bright red and dark red blood->CBC pending, coags, LDH ordered, GI consulted and Dr. Lambert alerted. PSV again today. Patient is still intermittently following commands. 12/22: Remains on the vent, more somnolent this am. Patient also with persistent bloody stools, H&H remains stable, GI is also following. Will keep patient NPO for now, IV PPI, and serial H&H. Patient is tolerating PSV trial, However, intubation postpone due to increased lethargy and GIB. Awaiting on GI recommen dations. 12/23: With persistent rectal bleeding, H&H and vital signs remain stable. GI is on the case, plan for possible colonoscopy tomorrow. Keep patient NPO, continue IV PPI and serial H&H. Hypoglycemic overnight, most likely due to NPO status, continue D10W for now. D/W CCM continue PSV trial, possible extubation tomorrow. Continue HD per Nephro 12/24: Post colonoscopy at the bedside this am. Patient stable on thevent but lethargic. GI recommendations appreciated. Will resume TF, continue PPI and trend H&H X1 day. Leukocytosis improved this am, stool studies pending, Continue current IV antibiotics per ID. Plan for possible PSV trial today once more awake, possible extubation if patient tolerate PSV trial. 12/25: s/p extubation now stable on 3L NC. Post colonoscopy, still with blood tinge losse stools, stool studies pending. Continue current IV antiobiotics per ID. S/p 1unit of PRBCs, H&H is stable this am, thrombocytopenia improved. Continue to hold AC, trend CBC, and PPI. Consult placed to general surgery for RUE wound eval and management, wound care consult pending. D/w CCM, patient is stable for transfer to Telemetry. 12/26: Patient remains very lethargic, failed swallow evaluation likely due to profound leathargy, Continue aspiration precautions, Monitor H/H closely, GI input noted, will purse PEG placement if patients mental status does not improve to tolerate oral diet. Continue abx per infectious disease specialist. She still has evidence of dark tarry stool in the FMS. We will monitor leukocytosis for resolution. Wound care input from surgical team appreciated patient will likely undergo debridement Aspiration precaution. Awaiting C. difficile testing also. 12/27: Patient still with diarrhea awaiting awaiting C. difficile cultures. Continue to hold all stool softeners. She is more awake this morning and if she was able to tolerate Robitussin and some COVID last night we will have speech team repeat swallow evaluation. Hemoglobin did drop by 1 g we will continue to monitor considering renal failure would not transfuse at this time unless less than 6. Aggressive PT OT 12/28: Continue supportive care. Awaiting PT OT evaluation. Patient appears more awake today and have asked the nurse to repeat swallow evaluation. Anticipate discharge in a.m. Continue hemodialysis Patient will benefit from wound care further right upper extremity wound on discharge. Surgical input on wound management appreciated. 12/29: Patient showing remarkable clinical improvement after summary the patient is a 66-year-old female with history of end-stage renal disease on HD hypertension AR and GERD who was admitted septic shock and placed on ICU in addition with mechanical ventilation for respiratory failure. During hospitalization it appears that the patient has some reaction to the right upper extremity for which there was extra cessation and wound development which is being managed by the wound care team. Of fecal management system was placed due to recurrent diarrhea C. difficile test was done and negative COVID test was negative. Vancomycin that was started for treatment of possible C. difficile has been discontinued. The patient today is much awake passed swallow evaluation onto the resolve Dobbhoff has been discontinued. PT OT evaluation is ordered for discharge planning. Replace electrolyte. The patient is planned for a fistulogram today due to left arm AV graft with swelling in the hand. Discharge planning will be based on the procedure that at this time. Anticipate discharge in 24 hrs I have called to update family but was only able to leave a message Case management for discharge planning Assessment and Plan #Septic Shock 09/17 GPC [id number] strep group Bresolved #Severe Colitisresolved #Leukocytosisresolvedresolved - Suspected source right upper chest Permacath, removed on 12/15 - Intial Blood cultures + beta-hemolytic strep group B in 4/ bottles. Repeat blood cultures NGTD x48 hours - Echo with no evidence of vegetation - Severe colitis throughout the entire colon noted from colonoscopy on 12/24 - Stool studies pending -Infectious disease consulted; appreciate recs - Continue current IV Abx, Rocephin, per ID #Heart Failure with Reduced Ejection Fractionresolved #Severe Cardiomyopathy #NSTEMIresolved #Hypertensionstable #History of CAD - Cardiology consulted; appreciate recs - went in septic shock / bacteremia- s/p dobutamine and vaspressors - Echocardiogram (11/23/2021): EF 35-40% - Repeat Echo this admit shows LVEF 30 to 35%, no valvular vegetations - Continue statin, ASA held due to GIB - midodrine adjusted and parameters added #Acute Metabolic Encephalopathyresolved #h/o seizure disorder and 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 -Renally dose medications and avoid nephrotoxic drugs. Renal diet. #Extravasation of RUE #Sacral Wounds - RUE extravasation of RUE- possibly levophed- Antidote not available - RUE doppler negative DVT - WOCN consult pending - General Surgery consulted; appreciate recs - PRN analgesia for pain management #Normocytic Anemia, chronic #Thrombocytopenia-improved #Hyponatremiaresolved #Hypokalemia #Acute GI Bleedresolved - Acute bloody stools since 12/21, probably due to low plt - H&H remains stable, Platelet count is improving - s/p 2units of FFP and 1unit of PRBCs - HIT panel negative - GI on consult, appreciated recommendations - 12/24- s/p Colonoscopy- diffuse severe colitis throughout the entire colon with erythema and edema and nodularity probably due to infectious or ischemic etiology - stool studies ordered to rule out infectious etiologies - Tolerating TF, still with bloody tinge loose stools - Continue to hold AC for now - Hematology consulted; appreciate recs #Type 2 Diabetes Mellitus # Multi-nodular thyroid gland - Episode of hypoglycemia, most likely due to NPO status - Tolerating TF, continue enteral nutrition for now - Speech swallow eval ordered - Multinodular thyroid gland noted on CT head - Possible thyroid US when more stable vs outpatient #Severe protein caloric malnutrition Albumin 1.7 Nutrition consulted; appreciate recs. Continue dietary supplementation. #Advanced care planning -Disease education conducted, care plan discussed, diagnoses discussed, prognosis discussed, and patient acknowledges understanding with care plan -Time: +30 min #Discharge planning - Patient is pending subacute rehab authorization - Case management has been made aware. Disposition Plan: Pending SNF/rehab authorization Total Time Spent with Patient (Minutes): 30 minutes History Interval history: No acute events overnight. Hospitalist Physical - Constitutional Vitals: Temp Pulse Resp BP Pulse Ox 97.9 F 76 16 102/56 92 01/02/22 11:35 01/02/22 11:35 01/02/22 11:35 01/02/22 11:35 01/02/22 11:35 General appearance: Present: mild distress, cachectic - EENT Eyes: Present: PERRL, EOM intact ENT: hearing intact, clear oral mucosa, edentulous - Neck Neck: Present: supple, normal ROM - Respiratory Respiratory effort: normal Respiratory: bilateral: diminished - Cardiovascular Rhythm: regular Heart Sounds: Present: S1 & S2 - Extremities Extremities: no ischemia, pulses intact, pulses symmetrical, No edema, normal temperature, normal color Peripheral Pulses: within normal limits - Abdominal General gastrointestinal: soft, non-tender, non-distended, normal bowel sounds - Integumentary Integumentary: Present: clear, warm, dry - Psychiatric Psychiatric: appropriate mood/affect, cooperative, depressed, other (Very tearful with conversations) - Neurologic Neurologic: CNII-XII intact - Allied Health Allied health notes reviewed: nursing HEART Score - HEART Score Troponin: Troponin T 0.175 ng/mL (0.00-0.029) H* 12/12/21 04:43 Results - Labs CBC & Chem 7: 01/01/22 04:52 01/01/22 04:52 Labs: Laboratory Last Values WBC 5.4 K/mm3 (4.5-11.0) 01/01/22 04:52 RBC 2.64 M/mm3 (3.65-5.03) L 01/01/22 04:52 Hgb 7.2 gm/dl (10.1-14.3) L 01/01/22 04:52 Hgb Comment See scanned result 12/19/21 05:00 Hct 21.7 % (30.3-42.9) L 01/01/22 04:52 MCV 82 fl (79-97) 01/01/22 04:52 MCH 27 pg (28-32) L 01/01/22 04:52 MCHC 33 % (30-34) 01/01/22 04:52 RDW 18.3 % (13.2-15.2) H 01/01/22 04:52 Plt Count 148 K/mm3 (140-440) 01/01/22 04:52 Lymph % (Auto) 8.0 % (13.4-35.0) L 12/26/21 Unknown Hall % (Auto) 8.9 % (0.0-7.3) H 12/26/21 Unknown Eos % (Auto) 0.4 % (0.0-4.3) 12/26/21 Unknown Baso % (Auto) 1.0 % (0.0-1.8) 12/26/21 Unknown Lymph # (Auto) 1.1 K/mm3 (1.2-5.4) L 12/26/21 Unknown Hall # (Auto) 1.3 K/mm3 (0.0-0.8) H 12/26/21 Unknown Eos # (Auto) 0.1 K/mm3 (0.0-0.4) 12/26/21 Unknown Baso # (Auto) 0.1 K/mm3 (0.0-0.1) 12/26/21 Unknown Add Manual Diff Complete 01/01/22 04:52 Total Counted 100 01/01/22 04:52 Seg Neutrophils % 81.7 % (40.0-70.0) H 12/26/21 Unknown Seg Neuts % (Manual) 70.0 % (40.0-70.0) 01/01/22 04:52 Band Neutrophils % 0 % 01/01/22 04:52 Lymphocytes % (Manual) 18.0 % (13.4-35.0) 01/01/22 04:52 Reactive Lymphs % (Man) 1.0 % 01/01/22 04:52 Monocytes % (Manual) 8.0 % (0.0-7.3) H 01/01/22 04:52 Eosinophils % (Manual) 1.0 % (0.0-4.3) 01/01/22 04:52 Basophils % (Manual) 2.0 % (0.0-1.8) H 01/01/22 04:52 Metamyelocytes % 0 % 01/01/22 04:52 Myelocytes % 0 % 01/01/22 04:52 Promyelocytes % 0 % 01/01/22 04:52 Blast Cells % 0 % 01/01/22 04:52 Nucleated RBC % Not Reportable 01/01/22 04:52 Seg Neutrophils # 11.6 K/mm3 (1.8-7.7) H 12/26/21 Unknown Seg Neutrophils # Man 3.8 K/mm3 (1.8-7.7) 01/01/22 04:52 Band Neutrophils # 0.0 K/mm3 01/01/22 04:52 Lymphocytes # (Manual) 1.0 K/mm3 (1.2-5.4) L 01/01/22 04:52 Abs React Lymphs (Man) 0.1 K/mm3 01/01/22 04:52 Monocytes # (Manual) 0.4 K/mm3 (0.0-0.8) 01/01/22 04:52 Eosinophils # (Manual) 0.1 K/mm3 (0.0-0.4) 01/01/22 04:52 Basophils # (Manual) 0.1 K/mm3 (0.0-0.1) 01/01/22 04:52 Metamyelocytes # 0.0 K/mm3 01/01/22 04:52 Myelocytes # 0.0 K/mm3 01/01/22 04:52 Promyelocytes # 0.0 K/mm3 01/01/22 04:52 Blast Cells # 0.0 K/mm3 01/01/22 04:52 WBC Morphology Not Reportable 01/01/22 04:52 Hypersegmented Neuts Not Reportable 01/01/22 04:52 Hyposegmented Neuts Not Reportable 01/01/22 04:52 Hypogranular Neuts Not Reportable 01/01/22 04:52 Smudge Cells Few 01/01/22 04:52 Toxic Granulation Not Reportable 01/01/22 04:52 Toxic Vacuolation Not Reportable 01/01/22 04:52 Dohle Bodies Not Reportable 01/01/22 04:52 Pelger-Huet Anomaly Not Reportable 01/01/22 04:52 Charles Rods Not Reportable 01/01/22 04:52 Platelet Estimate Consistent w auto 01/01/22 04:52 Clumped Platelets Not Reportable 01/01/22 04:52 Plt Clumps, EDTA Not Reportable 01/01/22 04:52 Large Platelets Not Reportable 01/01/22 04:52 Giant Platelets Not Reportable 01/01/22 04:52 Platelet Satelliting Not Reportable 01/01/22 04:52 Plt Morphology Comment Not Reportable 01/01/22 04:52 RBC Morphology Not Reportable 01/01/22 04:52 Dimorphic RBCs Not Reportable 01/01/22 04:52 Polychromasia Not Reportable 01/01/22 04:52 Hypochromasia 1+ 01/01/22 04:52 Poikilocytosis Not Reportable 01/01/22 04:52 Anisocytosis 1+ 01/01/22 04:52 Microcytosis Not Reportable 01/01/22 04:52 Macrocytosis Not Reportable 01/01/22 04:52 Spherocytes Not Reportable 01/01/22 04:52 Pappenheimer Bodies Not Reportable 01/01/22 04:52 Sickle Cells Not Reportable 01/01/22 04:52 Target Cells Not Reportable 01/01/22 04:52 Tear Drop Cells Not Reportable 01/01/22 04:52 Ovalocytes Not Reportable 01/01/22 04:52 Helmet Cells Not Reportable 01/01/22 04:52 Murphy-Fulda Bodies Not Reportable 01/01/22 04:52 Drexel Rings Not Reportable 01/01/22 04:52 Woden Cells Not Reportable 01/01/22 04:52 Bite Cells Not Reportable 01/01/22 04:52 Crenated Cell Not Reportable 01/01/22 04:52 Elliptocytes Not Reportable 01/01/22 04:52 Acanthocytes (Spur) Not Reportable 01/01/22 04:52 Rouleaux Not Reportable 01/01/22 04:52 Hemoglobin C Crystals Not Reportable 01/01/22 04:52 Schistocytes Not Reportable 01/01/22 04:52 Malaria parasites Not Reportable 01/01/22 04:52 Percent Retic 0.37 % (0.78-2.58) L 12/18/21 05:00 Sickle Cell Solubility See scanned result 12/19/21 05:00 Hemoglobin A See scanned result 12/19/21 05:00 Hemoglobin A2 See scanned result 12/19/21 05:00 Hemoglobin A2 Prime See scanned result 12/19/21 05:00 Hemoglobin C See scanned result 12/19/21 05:00 Hemoglobin D See scanned result 12/19/21 05:00 Hemoglobin E See scanned result 12/19/21 05:00 Hgb F Diffential Stain See scanned result 12/19/21 05:00 Hemoglobin F Quant See scanned result 12/19/21 05:00 Hemoglobin G See scanned result 12/19/21 05:00 Hemoglobin S See scanned result 12/19/21 05:00 Hemoglobin O-Reading See scanned result 12/19/21 05:00 Hemoglobin Barts See scanned result 12/19/21 05:00 Hemoglobin Christian See scanned result 12/19/21 05:00 Variant Hemoglobin See scanned result 12/19/21 05:00 Abnorm Hgb IEF Confirm See scanned result 12/19/21 05:00 Hemoglobin Interpret See scanned result 12/19/21 05:00 Hemoglobinopathy Note See scanned result 12/19/21 05:00 Bryson Bodies Not Reportable 01/01/22 04:52 Haptoglobin 193 mg/dL (43-212) 12/18/21 05:00 Hem Pathologist Commnt No 01/01/22 04:52 PT 17.7 Sec. (12.2-14.9) H 12/22/21 14:05 INR 1.30 (0.87-1.13) H 12/22/21 14:05 Fibrinogen 351 mg/dl (211-480) 12/21/21 08:35 Heparin Anti-Xa, Unfract Negative (Negative) 12/17/21 09:30 ABG pH 7.450 pH Units (7.350-7.450) 12/24/21 Unknown POC ABG pCO2 36.0 mmHg (32.0-48.0) 12/21/21 10:20 ABG pCO2 39.1 mm Hg 12/24/21 Unknown POC ABG pO2 126.1 mmHg (83-108) H 12/21/21 10:20 ABG pO2 109.1 mm Hg (80.0-90.0) H 12/24/21 Unknown POC ABG HCO3 24.3 12/21/21 10:20 ABG HCO3 26.6 mmol/L (20.0-26.0) H 12/24/21 Unknown ABG O2 Saturation 98.1 % (95.0-99.0) 12/24/21 Unknown ABG O2 Content 9.4 (0.0-44) 12/24/21 Unknown POC ABG Base Excess 0.6 12/21/21 10:20 ABG Base Excess 2.4 mmol/L (-2.0-3.0) 12/24/21 Unknown ABG Hemoglobin 6.8 gm/dl (12.0-16.0) L 12/24/21 Unknown ABG Oxyhemoglobin 97.4 (94-98) 12/21/21 10:20 ABG Carboxyhemoglobin 1.8 % (0.0-5.0) 12/24/21 Unknown ABG Methemoglobin 0.5 % (0.0-1.5) 12/24/21 Unknown ABG Sodium Not Reportable 12/21/21 10:20 ABG Potassium Not Reportable 12/21/21 10:20 ABG Chloride Not Reportable 12/21/21 10:20 ABG Glucose Not Reportable 12/21/21 10:20 VBG pO2 > 258.0 (25.0-47.0) H 12/15/21 19:50 Oxyhemoglobin 95.8 % (95.0-99.0) 12/24/21 Unknown Carboxyhemoglobin 0.9 (0.5-1.5) 12/21/21 10:20 FiO2 30 % 12/24/21 Unknown FiO2 % 30.0 12/21/21 10:20 Sodium 139 mmol/L (137-145) 01/01/22 04:52 Potassium 4.7 mmol/L (3.6-5.0) D 01/01/22 04:52 Chloride 104.1 mmol/L (98-107) 01/01/22 04:52 Carbon Dioxide 25 mmol/L (22-30) 01/01/22 04:52 Anion Gap 15 mmol/L 01/01/22 04:52 BUN 21 mg/dL (7-17) H 01/01/22 04:52 Creatinine 3.4 mg/dL (0.6-1.2) H 01/01/22 04:52 Estimated GFR 16 ml/min 01/01/22 04:52 BUN/Creatinine Ratio 6 % 01/01/22 04:52 Glucose 94 mg/dL (65-100) 01/01/22 04:52 POC Glucose 213 mg/dL (70-105) H 01/01/22 20:07 Lactic Acid 1.90 mmol/L (0.7-2.0) 12/16/21 05:00 Calcium 8.2 mg/dL (8.4-10.2) L 01/01/22 04:52 Phosphorus 4.90 mg/dL (2.5-4.5) H 12/23/21 04:39 Magnesium 1.90 mg/dL (1.7-2.3) 12/23/21 04:39 Iron 13 ug/dL (37-170) L 12/18/21 05:00 TIBC 109 mcg/dL (250-450) L 12/18/21 05:00 Ferritin 383.4 ng/mL (10.0-200.0) H 12/18/21 05:00 Total Bilirubin 0.50 mg/dL (0.1-1.2) 12/27/21 04:00 AST 23 units/L (5-40) 12/27/21 04:00 ALT 10 units/L (7-56) 12/27/21 04:00 Alkaline Phosphatase 222 units/L (35-129) H 12/27/21 04:00 Ammonia 26.0 umol/L (25-60) 12/26/21 Unknown Lactate Dehydrogenase 249 units/L (91-180) H 12/21/21 08:35 Troponin T 0.175 ng/mL (0.00-0.029) H* 12/12/21 04:43 C-Reactive Protein 38.50 mg/dL (0.00-1.30) H 12/15/21 14:40 Total Protein 5.9 g/dL (6.3-8.2) L 12/27/21 04:00 Albumin 1.7 g/dL (3.9-5) L 12/27/21 04:00 Albumin/Globulin Ratio 0.4 % 12/27/21 04:00 Triglycerides 92 mg/dL (2-149) 12/11/21 15:40 Cholesterol 72 mg/dL (50-199) 12/11/21 15:40 LDL Cholesterol Direct 16 mg/dL (50-130) L 12/11/21 15:40 HDL Cholesterol 41 mg/dL (40-59) 12/11/21 15:40 Cholesterol/HDL Ratio 1.75 % 12/11/21 15:40 Serotonin Release Assay See scanned result 12/17/21 09:30 Procalcitonin 46.16 ng/mL (<0.15) 12/15/21 04:11 Arterial Blood Glucose Not Reportable 12/21/21 10:20 Random Vancomycin 15.6 ug/mL (0-40.0) 12/16/21 05:00 Heparin-induced Plt Ab Negative (Negative) 12/17/21 09:30 UF Heparin High Dose 1 % Release 12/17/21 09:30 JAMILAH UFH Low Dose 0.1 0 % Release 12/17/21 09:30 JAMILAH UFH Low Dose 0.5 0 % Release 12/17/21 09:30 C. difficile Tox (PCR) Negative (Negative) 12/27/21 12:30 SARS-CoV-2 (PCR) Negative (Negative) 01/02/22 10:50 Hepatitis A IgM Ab Non-reactive (NonReactive) 12/27/21 Unknown Hep Bs Antigen Non-reactive (Negative) 12/27/21 Unknown Hep B Core IgM Ab Non-reactive (NonReactive) 12/27/21 Unknown Hepatitis C Antibody Non-reactive (NonReactive) 12/27/21 Unknown Blood Type O POSITIVE 12/23/21 16:20 Antibody Screen Negative 12/23/21 16:20 Crossmatch See Detail 12/23/21 16:20 Microbiology: Microbiology 12/24/21 09:15 Stool Stool Culture - Preliminary Johnson/IV: Voiding Method Incontinent Active Medications - Current Medications Current Medications: Generic Name Dose Route Start Last Admin Trade Name Freq PRN Reason Stop Dose Admin Acetaminophen 650 mg 12/13/21 23:00 12/13/21 23:18 Acetaminophen 650 Mg Rect Supp TN 650 mg Q4H PRN Administration Pain, Mild (1-3) Acetaminophen 650 mg 12/24/21 14:02 12/31/21 14:16 Acetaminophen 325 Mg/10.15 Ml Oral Liqd Unit Dose FEEDTUBE 650 mg Q6H PRN Administration Pain, Mild (1-3) Hydrocodone Bitart/Acetaminophen 1 each 12/31/21 14:57 01/02/22 09:45 Hydrocodone/Acetaminophen 5-325 Mg Tab PO 1 each Q6H PRN Administration Pain, Moderate (4-6) Albuterol 2.5 mg 12/11/21 22:14 Albuterol 2.5 Mg/3 Ml Nebu IH Q6HR PRN Wheezing Albuterol/Ipratropium 1 ampul 12/14/21 08:00 01/02/22 09:28 Ipratropium/Albuterol Sulfate 3 Ml Ampul.Neb IH 1 ampul TIDRT KRISTA Administration Lipase/Protease/Amylase 1 each 12/16/21 11:15 Lipase 10,500/Protease 25,000/Amylase 43,750 (Units) Dr Blanco FEEDTUBE PRN PRN For Clogged Feeding Tube Atorvastatin Calcium 80 mg 12/15/21 22:00 01/01/22 21:12 Atorvastatin 40 Mg Tab FEEDTUBE 80 mg QHS KRISTA Administration Budesonide 0.5 mg 12/13/21 08:00 01/02/22 09:28 Budesonide 0.5 Mg/2 Ml Nebu IH 0.5 mg Q12HRT KRISTA Administration Calcitriol 0.5 mcg 01/01/22 14:00 01/02/22 09:21 Calcitriol 0.5 Mcg Cap PO 0.5 mcg QDAY KRISTA Administration Carvedilol 6.25 mg 12/26/21 10:00 01/02/22 09:21 Carvedilol 6.25 Mg Tab PO 6.25 mg BID KRISTA Administration Dextrose 50 ml 12/11/21 22:23 12/26/21 18:12 Dextrose 50% In Water (25gm) 50 Ml Syringe IV 20 ml Q30MIN PRN Administration Hypoglycemia Protocol Guaifenesin 10 ml 12/27/21 05:30 12/27/21 05:54 Guaifenesin Dm 200/20 Mg Oral Liqd 10 Ml PO 10 ml Q4H PRN Administration Cough Haloperidol Lactate 2.5 mg 12/25/21 11:37 12/28/21 01:35 Haloperidol Lactate 5 Mg/1 Ml Inj IV 2.5 mg Q6H PRN Administration Agitation Hydromorphone HCl 1 mg 12/31/21 14:57 01/01/22 20:34 Hydromorphone 1 Mg/1 Ml Inj IV 1 mg Q4H PRN Administration Pain , Severe (7-10) Hydrophilic Ointment 1 applic 12/16/21 14:30 Lip Therapy Vaseline TP Q2HR PRN Dry Lips Sodium Chloride 100 mls @ 999 mls/hr 12/12/21 12:00 Nacl 0.9% IV ABEL PRN Hypotension Insulin Human Lispro 0 unit 01/01/22 07:30 01/02/22 09:08 Insulin Lispro 100 Unit/Ml SUB-Q Not Given ACHS [facility] Protocol Isosorbide Dinitrate/Hydralazine 1 each 12/26/21 10:00 01/02/22 06:34 Isosorb Dinit/Hydralazine 20-37.5mg Tab PO 1 each Q8HR KRISTA Administration Lansoprazole 30 mg 12/25/21 10:00 01/02/22 09:21 Lansoprazole 30 Mg Solutab FEEDTUBE 30 mg QDAY KRISTA Administration Levetiracetam 500 mg 12/16/21 18:00 01/01/22 19:11 Levetiracetam 500 Mg/5 Ml Oral Liqd FEEDTUBE 500 mg TuThSa KRISTA Administration Loperamide HCl 2 mg 12/29/21 10:00 12/30/21 09:14 Loperamide 2 Mg Cap PO 2 mg Q2H PRN Administration Diarrhea Midodrine 5 mg 12/24/21 12:00 01/02/22 09:21 Midodrine 5 Mg Tab FEEDTUBE 5 mg TID@0800,1200,1600 KRISTA Administration Multi-Ingred Cream/Lotion/Oil/Oint 1 applic 12/16/21 14:10 Mineral Oil/Petrolatum, White Ophth Oint 3.5 Gm OU Q4HR PRN Dry Eye(s) Nitroglycerin 0.4 mg 12/11/21 22:11 Nitroglycerin 0.4 Mg Tab Subl SL Q5M PRN Chest Pain Silver Sulfadiazine 1 applic 01/01/22 12:00 01/02/22 09:45 Silver Sulfadiazine Cream 50 Gm TP 1 applic QDAY KRISTA Administration Simple Syrup 15 ml 12/16/21 11:15 Simple Syrup 15 Ml FEEDTUBE PRN PRN Hypoglycemia Simple Syrup 30 ml 12/16/21 11:15 12/26/21 17:10 Simple Syrup 15 Ml FEEDTUBE 30 ml PRN PRN Administration Hypoglycemia Sodium Bicarbonate 325 mg 12/16/21 11:15 Sodium Bicarbonate 325 Mg Tab FEEDTUBE PRN PRN For Clogged Feeding Tube Sodium Chloride 10 ml 12/11/21 22:11 12/30/21 21:40 Sodium Chloride 0.9% 10 Ml Flush Syringe IV 10 ml PRN PRN Administration LINE FLUSH Nutrition/Malnutrition Assess - Dietary Evaluation Nutrition/Malnutrition Findings: Nutrition Notes Start: 12/12/21 11:57 Freq: Status: Active Protocol: Document 12/31/21 12:04 EVERARDO (Rec: 12/31/21 12:44 EVERARDO [id number]) Nutrition Notes Initial or Follow up Reassessment Current Diagnosis CKD (stage V CKD),Coronary Artery Disease,Decubitus( Pressure Ulcer),Hypertension, Heart Failure,Respiratory Failure,Malnutrition Other Pertinent Diagnosis Colitis, ESRD+HD, s/p Septic Shock, Thrombocytopenia, Anemia, NSTEMI, ... Current Diet Mechanical Soft Diet (since D 12/29), D Suppl (from D 12/31) . Labs/Tests 12/31: CO2 31, Crea 2.7, GHlu 148. Pertinent Medications 12/31: Nutritionally unremarkable. Height 4 ft 11 in Weight 64.5 kg [place] Body Weight (kg) 43.18 BMI 28.7 Weight change and time frame 2.6 Kg body weight gain in 1 week reported. Weight Status Overweight Subjective/Other Information RD consult for routine F/U on dietary advancement. Pt is now on PO diet; Pt's PO intake of meals has been Poor (25-50%), according to ADL notes. I will prescribe Dietary Supplements to compensate for poor PO intake of meals and increase Protein intake. Fluid restricted to 1,200 ml/ day and high protein diet recommended, according to Progress notes. MACHINE ERECTOR note on 12/29/21 12:03: Swallowing function was reassessed. Patient is safe for a mechanical soft diet with ground meats/thins. Informed the patient's nurse. Fistulogram and replacement took place on 12/29, according to Progress notes. Pt was extubated on 12/24, according to Progress notes. Pt is on Nasal Cannula, O2 saturation @ 95%, according to Physical Assessment History notes. Pt has missing teeth, according to Physical Assessment History notes. Pt present dierrhea since admission, according to Physical Assessment History notes. Percent of energy/protein needs met: Prescribed Mechanical Soft Diet provides for energy/ protein needs (2,048 Kcal/97 g ) during LOS; additionally, Dietary Supplements will compensate for possible poor or insufficient PO intake of meals with 850 Kcal and 38 g of protein. Burn Absent Trauma Absent GI Symptoms Diarrhea Food Allergy No Skin Integrity/Comment Sacral Stage I ulcer, R-UE wound. Current % PO Poor (25-49%) Minimum of two criteria No #1 Nutrition Diagnosis Inadequate oral intake Comments: MACHINE ERECTOR note on 12/29/21 12:03: Swallowing function was reassessed. Patient is safe for a mechanical soft diet with ground meats/thins. Informed the patient's nurse. Diagnosis Progress(for reassessment Improved documentation) Is patient on ventilator? No Is Patient Ambulatory and/or Out of Bed No REE-([place] [facility]-confined to bed) 1326.120 [facility]culation [facility] Additional Notes Protein: >1.2 g/Kg ABW; >74 g/ day. Fluids: 1-1.5 L/day, or as per MD. Nutrition Intervention Change Diet Order: Continue Mechanical Soft Diet, as tolerated; eventually, advance to Renal Diet. Add Supplement/Snack (indicate name/kcal Start 8 fl oz Nepro w/ /protein ) CARBSTEADY; BID Provides kCal: 850 Provides Protein (gm) 38 Goal #1 Compensate, through dietary supplementation, for possible poor or insufficient PO intake of meals during LOS. Goal #2 Adjust the dietary intervention to better serve Pt's needs and clinical conditions during LOS. Goal #3 Maintain body weight within +/ -3% of admission body weight during LOS. Follow-Up By: 01/07/22 Additional Comments Continue monitoring food tolerance, %PO intake of meals , and BM.
--- NOTE | 2022-01-02 12:02 | Progress Note ---
Subjective Date of service: 01/02/22 Principal diagnosis: Septic shock ; Bacteremia; ESRD on dialysis; AMS; NSTEMI; HTN; DM II Interval history: Assessment and plan #End-stage kidney disease: Patient will continue to see hemodialysis treatment 3 times a week will continue on Wednesday and Wednesday Monitor dialysis related labs/monitor for any access issues Fluid restriction 1200 cc/day high-protein diet #Access: Permacath was removed due to infection fistula is working well but patient does have swelling #Septic shock echocardiogram did not show any evidence of vegetations, ID following Permacath was removed, admitted with septic shock with gram-positive bacteremia #Hypertension and volume: To monitor and follow #Anemia in end-stage kidney disease: To monitor and follow erythropoietin periodically goal hemoglobin between Thrombocytopenia: HIT negative We will check dialysis related labs periodically, We'll continue to follow and make recommendation for renal standpoint Subjective Patient was seen today for follow-up of multiple renal related issueS She is resting comfortably in bed no acute distress Events of 24 hours vitals labs intake output medications were reviewed Physical examination: Vitals: Reviewed HEENT: No pallor or icterus oral mucosa moist Neck: Supple no JVD no thyromegaly Chest: Bilateral clear to auscultation anteriorly Heart: Regular rate and rhythm S1-S2 heard no S3-S4 Abdomen: Soft nontender no voluntary guarding rigidity rebound Extremity: Dry skin less than 1+ peripheral edema Psychiatric: No evidence of agitation and aggression noted Dermatology: No petechial rashes Labs and x-rays: availabe data reviewed Objective - Vital Signs Vital signs: Vital Signs - 12hr 01/02/22 01/02/22 01/02/22 03:37 04:40 08:13 Temperature 97.3 F L 97.9 F Pulse Rate 85 Respiratory 17 20 16 Rate Blood Pressure 111/69 106/54 Blood Pressure [Left] O2 Sat by Pulse 97 Oximetry 01/02/22 01/02/22 10:00 11:35 Temperature 97.9 F Pulse Rate 76 Respiratory 16 16 Rate Blood Pressure Blood Pressure 102/56 [Left] O2 Sat by Pulse 96 92 Oximetry - Lab 01/01/22 04:52 01/01/22 04:52 Most recent lab results ABG pH 7.450 pH Units (7.350-7.450) 12/24/21 Unknown ABG pCO2 39.1 mm Hg 12/24/21 Unknown ABG pO2 109.1 mm Hg (80.0-90.0) H 12/24/21 Unknown ABG HCO3 26.6 mmol/L (20.0-26.0) H 12/24/21 Unknown ABG O2 Saturation 98.1 % (95.0-99.0) 12/24/21 Unknown Calcium 8.2 mg/dL (8.4-10.2) L 01/01/22 04:52 Phosphorus 4.90 mg/dL (2.5-4.5) H 12/23/21 04:39 Magnesium 1.90 mg/dL (1.7-2.3) 12/23/21 04:39 Medications & Allergies - Medications Allergies/Adverse Reactions: Allergies No Known Allergies Allergy (Verified 12/11/21 22:19) Home Medications: Home Medications Medication Instructions Recorded Confirmed Last Taken Type Albuterol Sulfate [Proair 2 puff IH Q6HR PRN 11/23/21 12/14/21 Unknown History Digihaler] Insulin Aspart (Nf) [NovoLOG 55 unit SQ TID 11/23/21 12/14/21 Unknown History Flexpen] Insulin Glargine [Lantus VIAL] 25 units SQ QHS 11/23/21 12/14/21 Unknown History Omeprazole 20 mg PO DAILY 11/23/21 12/14/21 Unknown History Aspirin [Adult Aspirin] 81 mg PO DAILY #30 tab 01/01/22 Unknown Rx AtorvaSTATin [Lipitor] 80 mg FEEDTUBE QHS #30 tablet 01/01/22 Unknown Rx Calcium Acetate 2 tab PO TID #90 tab 01/01/22 Unknown Rx Fluticasone/Umeclidin/Vilanter 1 each IH DAILY #1 inh 01/01/22 Unknown Rx [Trelegy Ellipta 100-62.5-25] Isosorb Dinit/Hydralazine [Bidil 1 each PO Q8HR #90 tablet 01/01/22 Unknown Rx 20/37.5MG] Midodrine [Proamatine] 5 mg FEEDTUBE TID@0800,1200,1600 01/01/22 Unknown Rx #90 tablet SILVER sulfADIAZINE 50 GRAM 1 applic TP QDAY #2 tube 01/01/22 Unknown Rx [Thermazene 50 Gram] Sevelamer Carbonate [Renvela] 800 mg PO TIDWM 90 Days #270 tab 01/01/22 Unknown Rx calcitrioL [Rocaltrol] 0.5 mcg PO QDAY #30 capsule 01/01/22 Unknown Rx carvediloL [Coreg] 6.25 mg PO BID #60 tablet 01/01/22 Unknown Rx levETIRAcetam [Keppra TAB] 500 mg PO 3XW #15 01/01/22 Unknown Rx Active Medications: Generic Name Dose Route Start Last Admin Trade Name Freq PRN Reason Stop Dose Admin Acetaminophen 650 mg 12/13/21 23:00 12/13/21 23:18 Acetaminophen 650 Mg Rect Supp OH 650 mg Q4H PRN Administration Pain, Mild (1-3) Acetaminophen 650 mg 12/24/21 14:02 12/31/21 14:16 Acetaminophen 325 Mg/10.15 Ml Oral Liqd Unit Dose FEEDTUBE 650 mg Q6H PRN Administration Pain, Mild (1-3) Hydrocodone Bitart/Acetaminophen 1 each 12/31/21 14:57 01/02/22 09:45 Hydrocodone/Acetaminophen 5-325 Mg Tab PO 1 each Q6H PRN Administration Pain, Moderate (4-6) Albuterol 2.5 mg 12/11/21 22:14 Albuterol 2.5 Mg/3 Ml Nebu IH Q6HR PRN Wheezing Albuterol/Ipratropium 1 ampul 12/14/21 08:00 01/02/22 09:28 Ipratropium/Albuterol Sulfate 3 Ml Ampul.Neb IH 1 ampul TIDRT KRISTA Administration Lipase/Protease/Amylase 1 each 12/16/21 11:15 Lipase 10,500/Protease 25,000/Amylase 43,750 (Units) Dr Blanco FEEDTUBE PRN PRN For Clogged Feeding Tube Atorvastatin Calcium 80 mg 12/15/21 22:00 01/01/22 21:12 Atorvastatin 40 Mg Tab FEEDTUBE 80 mg QHS KRISTA Administration Budesonide 0.5 mg 12/13/21 08:00 01/02/22 09:28 Budesonide 0.5 Mg/2 Ml Nebu IH 0.5 mg Q12HRT KRISTA Administration Calcitriol 0.5 mcg 01/01/22 14:00 01/02/22 09:21 Calcitriol 0.5 Mcg Cap PO 0.5 mcg QDAY KRISTA Administration Carvedilol 6.25 mg 12/26/21 10:00 01/02/22 09:21 Carvedilol 6.25 Mg Tab PO 6.25 mg BID KRISTA Administration Dextrose 50 ml 12/11/21 22:23 12/26/21 18:12 Dextrose 50% In Water (25gm) 50 Ml Syringe IV 20 ml Q30MIN PRN Administration Hypoglycemia Protocol Guaifenesin 10 ml 12/27/21 05:30 12/27/21 05:54 Guaifenesin Dm 200/20 Mg Oral Liqd 10 Ml PO 10 ml Q4H PRN Administration Cough Haloperidol Lactate 2.5 mg 12/25/21 11:37 12/28/21 01:35 Haloperidol Lactate 5 Mg/1 Ml Inj IV 2.5 mg Q6H PRN Administration Agitation Hydromorphone HCl 1 mg 12/31/21 14:57 01/01/22 20:34 Hydromorphone 1 Mg/1 Ml Inj IV 1 mg Q4H PRN Administration Pain , Severe (7-10) Hydrophilic Ointment 1 applic 12/16/21 14:30 Lip Therapy Vaseline TP Q2HR PRN Dry Lips Sodium Chloride 100 mls @ 999 mls/hr 12/12/21 12:00 Nacl 0.9% IV ABEL PRN Hypotension Insulin Human Lispro 0 unit 01/01/22 07:30 01/02/22 09:08 Insulin Lispro 100 Unit/Ml SUB-Q Not Given ACHS [facility] Protocol Isosorbide Dinitrate/Hydralazine 1 each 12/26/21 10:00 01/02/22 06:34 Isosorb Dinit/Hydralazine 20-37.5mg Tab PO 1 each Q8HR KRISTA Administration Lansoprazole 30 mg 12/25/21 10:00 01/02/22 09:21 Lansoprazole 30 Mg Solutab FEEDTUBE 30 mg QDAY KRISTA Administration Levetiracetam 500 mg 12/16/21 18:00 01/01/22 19:11 Levetiracetam 500 Mg/5 Ml Oral Liqd FEEDTUBE 500 mg TuThSa KRISTA Administration Loperamide HCl 2 mg 12/29/21 10:00 12/30/21 09:14 Loperamide 2 Mg Cap PO 2 mg Q2H PRN Administration Diarrhea Midodrine 5 mg 12/24/21 12:00 01/02/22 09:21 Midodrine 5 Mg Tab FEEDTUBE 5 mg TID@0800,1200,1600 KRISTA Administration Multi-Ingred Cream/Lotion/Oil/Oint 1 applic 12/16/21 14:10 Mineral Oil/Petrolatum, White Ophth Oint 3.5 Gm OU Q4HR PRN Dry Eye(s) Nitroglycerin 0.4 mg 12/11/21 22:11 Nitroglycerin 0.4 Mg Tab Subl SL Q5M PRN Chest Pain Silver Sulfadiazine 1 applic 01/01/22 12:00 01/02/22 09:45 Silver Sulfadiazine Cream 50 Gm TP 1 applic QDAY KRISTA Administration Simple Syrup 15 ml 12/16/21 11:15 Simple Syrup 15 Ml FEEDTUBE PRN PRN Hypoglycemia Simple Syrup 30 ml 12/16/21 11:15 12/26/21 17:10 Simple Syrup 15 Ml FEEDTUBE 30 ml PRN PRN Administration Hypoglycemia Sodium Bicarbonate 325 mg 12/16/21 11:15 Sodium Bicarbonate 325 Mg Tab FEEDTUBE PRN PRN For Clogged Feeding Tube Sodium Chloride 10 ml 12/11/21 22:11 12/30/21 21:40 Sodium Chloride 0.9% 10 Ml Flush Syringe IV 10 ml PRN PRN Administration LINE FLUSH
--- NOTE | 2022-01-02 15:47 | Event Note ---
Date: 01/02/22 Please refer to the discharge summary on 01/01/2022.
[2022-01-02 21:17] VITALS: BP 139/60
== END 2022-01-02 22:30 | disposition home health service (06) | DRG 853 ==
LOC: ED 11:51 → 4A 22:11 → CC1 12-14 23:14 → 4A 12-25 23:35
PROVIDERS: ADMIT Hospitalist; ATTEND Student in an Organized Health Care Education/Training Program
PROC: 5A1D70Z Performance of Urinary Filtration, Intermittent, Less than 6 Hours Per Day (ICD-10-PCS; 2021-12-13)
PROC: 5A1955Z Respiratory Ventilation, Greater than 96 Consecutive Hours (ICD-10-PCS; principal; 2021-12-15)
PROC: 0BH17EZ Insertion of Endotracheal Airway into Trachea, Via Natural or Artificial Opening (ICD-10-PCS; 2021-12-15)
PROC: 0JPT3XZ Removal of Tunneled Vascular Access Device from Trunk Subcutaneous Tissue and Fascia, Percutaneous Approach (ICD-10-PCS; 2021-12-15)
PROC: 05PYX3Z Removal of Infusion Device from Upper Vein, External Approach (ICD-10-PCS; 2021-12-15)
PROC: 06HN33Z Insertion of Infusion Device into Left Femoral Vein, Percutaneous Approach (ICD-10-PCS; 2021-12-15)
PROC: B54CZZA Ultrasonography of Left Lower Extremity Veins, Guidance (ICD-10-PCS; 2021-12-15)
PROC: 4A033R1 Measurement of Arterial Saturation, Peripheral, Percutaneous Approach (ICD-10-PCS; 2021-12-16)
PROC: 5A1D70Z Performance of Urinary Filtration, Intermittent, Less than 6 Hours Per Day (ICD-10-PCS; 2021-12-16)
PROC: 5A1D70Z Performance of Urinary Filtration, Intermittent, Less than 6 Hours Per Day (ICD-10-PCS; 2021-12-18)
PROC: 5A1D70Z Performance of Urinary Filtration, Intermittent, Less than 6 Hours Per Day (ICD-10-PCS; 2021-12-20)
PROC: 05HM33Z Insertion of Infusion Device into Right Internal Jugular Vein, Percutaneous Approach (ICD-10-PCS; 2021-12-22)
PROC: B543ZZA Ultrasonography of Right Jugular Veins, Guidance (ICD-10-PCS; 2021-12-22)
PROC: 5A1D70Z Performance of Urinary Filtration, Intermittent, Less than 6 Hours Per Day (ICD-10-PCS; 2021-12-23)
PROC: 0DBE8ZX Excision of Large Intestine, Via Natural or Artificial Opening Endoscopic, Diagnostic (ICD-10-PCS; 2021-12-24)
PROC: 30243K1 Transfusion of Nonautologous Frozen Plasma into Central Vein, Percutaneous Approach (ICD-10-PCS; 2021-12-24)
PROC: 30243N1 Transfusion of Nonautologous Red Blood Cells into Central Vein, Percutaneous Approach (ICD-10-PCS; 2021-12-24)
PROC: 5A1D70Z Performance of Urinary Filtration, Intermittent, Less than 6 Hours Per Day (ICD-10-PCS; 2021-12-25)
PROC: 5A1D70Z Performance of Urinary Filtration, Intermittent, Less than 6 Hours Per Day (ICD-10-PCS; 2021-12-27)
PROC: 03723ZZ Dilation of Innominate Artery, Percutaneous Approach (ICD-10-PCS; 2021-12-29)
PROC: 037C3ZZ Dilation of Left Radial Artery, Percutaneous Approach (ICD-10-PCS; 2021-12-29)
PROC: 037Y3ZZ Dilation of Upper Artery, Percutaneous Approach (ICD-10-PCS; 2021-12-29)
PROC: 5A1D70Z Performance of Urinary Filtration, Intermittent, Less than 6 Hours Per Day (ICD-10-PCS; 2021-12-30)
PROC: 5A1D70Z Performance of Urinary Filtration, Intermittent, Less than 6 Hours Per Day (ICD-10-PCS; 2022-01-01)
DX: A40.1 Sepsis due to streptococcus, group B (principal); N18.6 End stage renal disease; G93.41 Metabolic encephalopathy; R65.21 Severe sepsis with septic shock; I50.23 Acute on chronic systolic (congestive) heart failure; I21.4 Non-ST elevation (NSTEMI) myocardial infarction; E43 Unspecified severe protein-calorie malnutrition; J96.21 Acute and chronic respiratory failure with hypoxia; I48.21 Permanent atrial fibrillation; I13.2 Hypertensive heart and chronic kidney disease with heart failure and with stage 5 chronic kidney disease, or end stage renal disease; I42.9 Cardiomyopathy, unspecified; E87.1 Hypo-osmolality and hyponatremia; K92.2 Gastrointestinal hemorrhage, unspecified; Z20.822 Contact with and (suspected) exposure to COVID-19; R77.8 Other specified abnormalities of plasma proteins; E11.22 Type 2 diabetes mellitus with diabetic chronic kidney disease; R55 Syncope and collapse; I25.10 Atherosclerotic heart disease of native coronary artery without angina pectoris; E63.9 Nutritional deficiency, unspecified; K52.9 Noninfective gastroenteritis and colitis, unspecified; D64.9 Anemia, unspecified; D69.6 Thrombocytopenia, unspecified; E87.6 Hypokalemia; E11.65 Type 2 diabetes mellitus with hyperglycemia; Z86.73 Personal history of transient ischemic attack (TIA), and cerebral infarction without residual deficits
CPT/HCPCS: 36415; 36600; 36902; 36907; 70450; 71045; 72125; 72131; 72192; 74018; 80048; 80053; 80061; 80074; 80202; 82140; 82728; 82803; 82805; 82962; 83010; 83550; 83615; 83735; 84100; 84145; 84484; 85007; 85014; 85018; 85025; 85027; 85045; 85384; 85610; 86022; 86140; 86850; 86900; 86901; 86920; 87040; 87045; 87070; 87076; 87116; 87205; 87493; 88305; 93005; 93308; 93321; 93325; 94002; 94003; 94640; 94760; 95819; 96374; 96375; 99285; G0378; J1815; J2354; J3490; Q9967; C1725; C1751; C1769; C1894; C9113; J0171; J0690; J0696; J1170; J1250; J1630; J1644; J1885; J2250; J2270; J2405; J2704; J2765; J2916; J2930; J3010; J3370; J3475; J3480; J7030; J7040; J7050; P9016; P9017; P9047; U0003

== ENCOUNTER 2022-01-08 12:51 | Emergency (ER) | payer MEDICARE, MEDICAID ==
--- NOTE | 2022-01-08 13:25 | Emergency Department Report ---
HPI - General Chief Complaint: Urogenital-Female Time Seen by Provider: 01/08/22 13:22 - HPI HPI: The patient was sent from hemodialysis where she completed her usual hemodialysis today saying that they want to check her back. The patient has known sacral ulcers and was complaining of some pain in the area today at hemodialysis. The patient otherwise has no complaints. She does complain of some right foot pain has been going on for the last couple of days. Recently she had a colonoscopy and had some type of trouble in her right upper extremity for which she ended up with 2 ulcers on her dorsal right hand and forearm. She denies nausea vomiting fever chills chest pain focal weakness headache or any other associated symptoms. Nothing makes it better nor worse. ED Past Medical Hx - Past Medical History Hx Hypertension: Yes Hx Heart Attack/AMI: Yes Hx GERD: Yes Hx Renal Disease: Yes - Surgical History Additional Surgical History: Right anterior chest hemodialysis port - Social History Smoking Status: Unknown if ever smoked - Medications Home Medications: Home Medications Medication Instructions Recorded Confirmed Last Taken Type Albuterol Sulfate [Proair 2 puff IH Q6HR PRN 11/23/21 12/14/21 Unknown History Digihaler] Insulin Aspart (Nf) [NovoLOG 55 unit SQ TID 11/23/21 12/14/21 Unknown History Flexpen] Insulin Glargine [Lantus VIAL] 25 units SQ QHS 11/23/21 12/14/21 Unknown History Omeprazole 20 mg PO DAILY 11/23/21 12/14/21 Unknown History Aspirin [Adult Aspirin] 81 mg PO DAILY #30 tab 01/01/22 Unknown Rx AtorvaSTATin [Lipitor] 80 mg FEEDTUBE QHS #30 tablet 01/01/22 Unknown Rx Calcium Acetate 2 tab PO TID #90 tab 01/01/22 Unknown Rx Fluticasone/Umeclidin/Vilanter 1 each IH DAILY #1 inh 01/01/22 Unknown Rx [Trelegy Ellipta 100-62.5-25] Isosorb Dinit/Hydralazine [Bidil 1 each PO Q8HR #90 tablet 01/01/22 Unknown Rx 20/37.5MG] Midodrine [Proamatine] 5 mg FEEDTUBE TID@0800,1200,1600 01/01/22 Unknown Rx #90 tablet SILVER sulfADIAZINE 50 GRAM 1 applic TP QDAY #2 tube 01/01/22 Unknown Rx [Thermazene 50 Gram] Sevelamer Carbonate [Renvela] 800 mg PO TIDWM 90 Days #270 tab 01/01/22 Unknown Rx calcitrioL [Rocaltrol] 0.5 mcg PO QDAY #30 capsule 01/01/22 Unknown Rx carvediloL [Coreg] 6.25 mg PO BID #60 tablet 01/01/22 Unknown Rx levETIRAcetam [Keppra TAB] 500 mg PO 3XW #15 01/01/22 Unknown Rx ED Review of Systems ROS: Stated complaint: HALLCINATIONS Other details as noted in HPI Other: All systems reviewed and negative Physical Exam - Physical Exam General: Physical Exam: Constitutional: AAOX3. No acute distress. No diaphoresis. HENT: Normocephalic. Pupils equal and reactive. No throat edema or erythema. Neck: No neck rigidity or tenderness. Cardiovascular: Heart sounds: No murmur. Normal rate and regular rhythm. Pulses: Intact distal pulses. Lungs: No wheezing or rales. Chest wall: No tenderness. Abdominal: No distension. No mass/pulsatile mass. No abdominal tenderness, guarding nor rebound. Musculoskeletal: Normal range of motion. No edema, No calf TTP. The patient has a pressure ulcer on her right foot on the heel with no evidence of acute infection. There is an AV fistula with a good thrill in her left upper extr emity at the arm. There is also some edema on her right upper extremity with 2 ulcers on her hand and forearm. The patient has a bilateral sacral stage II decubitus ulcers with no active infection. Skin: Warm and dry. Neurological: Alert and oriented to person, place, and time. Psychiatric: Mood and affect normal. Normal cognition and memory. Normal judgement. ED Course - Reevaluation(s) Reevaluation #1: 01/08/22 15:53 Case management evaluated the patient and she was just discharged out of the hospital and does have home health but will come and give her local care and her sacral and foot wounds. At this time on reevaluation she is comfortable and did not require any pain medicine. The wounds do not look acutely infected and so she will be discharged home. Critical care attestation.: If time is entered above; I have spent that time in minutes in the direct care of this critically ill patient, excluding procedure time. ED Disposition Clinical Impression: Decubitus skin ulcer Disposition: 01 HOME / SELF CARE / HOMELESS Is pt being admited?: No Does the pt Need Aspirin: No Condition: Stable Time of Disposition: 15:55 Print Language: UPPER SORBIAN
--- NOTE | 2022-01-08 14:03 | XRay Report ---
CHEST 1 VIEW 01/08/2022 12:53 PM INDICATION / CLINICAL INFORMATION: Chest Pain. COMPARISON: 12/22/2021 FINDINGS: SUPPORT DEVICES: None. HEART / MEDIASTINUM: Stable. LUNGS / PLEURA: Mild interstitial thickening remains. No localized infiltrate. No pneumothorax. ADDITIONAL FINDINGS: No significant additional findings. IMPRESSION: Stable mild interstitial thickening. Signer Name: Kevin De La Garza MD Signed: 01/08/2022 1:58 PM Workstation Name: [id number]
[2022-01-08 21:07] VITALS: BP 104/60
== END 2022-01-08 21:12 | disposition home or self-care (01) ==
LOC: ED 12:51
DX: L89.519 Pressure ulcer of right ankle, unspecified stage (principal); L97.519 Non-pressure chronic ulcer of other part of right foot with unspecified severity; I16.1 Hypertensive emergency; I12.0 Hypertensive chronic kidney disease with stage 5 chronic kidney disease or end stage renal disease; N18.6 End stage renal disease; Z99.2 Dependence on renal dialysis; K21.9 Gastro-esophageal reflux disease without esophagitis; Z98.890 Other specified postprocedural states
CPT/HCPCS: 71045; 99283; 99284

== ENCOUNTER 2022-01-17 10:40 | Emergency (ER) | payer MEDICARE, MEDICAID ==
--- NOTE | 2022-01-17 15:55 | Emergency Department Report ---
ED General Adult HPI - General Chief complaint: Weakness Stated complaint: LOW HEMOGLOBIN Time Seen by Provider: 01/17/22 15:45 Source: patient Mode of arrival: Ambulatory Limitations: No Limitations - History of Present Illness Initial comments: Patient is 66 years old female with history of end-stage renal disease on hemodialysis. Patient brought to the emergency room via EMS from local dialysis center for evaluation of low hemoglobin. Patient presented to dialysis center today and she had a hemoglobin checked today and found that it was 6. Patient currently denying any hematemesis, hematochezia, melena, hemoptysis. Patient is not on any blood thinner medicine. -: This morning Associated Symptoms: denies other symptoms - Related Data Home Medications Medication Instructions Recorded Confirmed Last Taken Albuterol Sulfate [Proair 2 puff IH Q6HR PRN 11/23/21 12/14/21 Unknown Digihaler] Insulin Aspart (Nf) [NovoLOG 55 unit SQ TID 11/23/21 12/14/21 Unknown Flexpen] Insulin Glargine [Lantus VIAL] 25 units SQ QHS 11/23/21 12/14/21 Unknown Omeprazole 20 mg PO DAILY 11/23/21 12/14/21 Unknown Previous Rx's Medication Instructions Recorded Last Taken Type Aspirin [Adult Aspirin] 81 mg PO DAILY #30 tab 01/01/22 Unknown Rx AtorvaSTATin [Lipitor] 80 mg FEEDTUBE QHS #30 tablet 01/01/22 Unknown Rx Calcium Acetate 2 tab PO TID #90 tab 01/01/22 Unknown Rx Fluticasone/Umeclidin/Vilanter 1 each IH DAILY #1 inh 01/01/22 Unknown Rx [Trelegy Ellipta 100-62.5-25] Isosorb Dinit/Hydralazine [Bidil 1 each PO Q8HR #90 tablet 01/01/22 Unknown Rx 20/37.5MG] Midodrine [Proamatine] 5 mg FEEDTUBE TID@0800,1200,1600 01/01/22 Unknown Rx #90 tablet SILVER sulfADIAZINE 50 GRAM 1 applic TP QDAY #2 tube 01/01/22 Unknown Rx [Thermazene 50 Gram] Sevelamer Carbonate [Renvela] 800 mg PO TIDWM 90 Days #270 tab 01/01/22 Unknown Rx calcitrioL [Rocaltrol] 0.5 mcg PO QDAY #30 capsule 01/01/22 Unknown Rx carvediloL [Coreg] 6.25 mg PO BID #60 tablet 01/01/22 Unknown Rx levETIRAcetam [Keppra TAB] 500 mg PO 3XW #15 01/01/22 Unknown Rx Allergies Allergy/AdvReac Type Severity Reaction Status Date / Time No Known Allergies Allergy Verified 12/11/21 22:19 ED Review of Systems ROS: Stated complaint: LOW HEMOGLOBIN Other details as noted in HPI Comment: All other systems reviewed and negative Constitutional: denies: chills, diaphoresis, fever Respiratory: denies: cough, shortness of breath, SOB with exertion Cardiovascular: denies: chest pain, palpitations Gastrointestinal: denies: abdominal pain, nausea, vomiting Neurological: weakness. denies: headache, numbness, paresthesias, confusion, abnormal gait ED Past Medical Hx - Past Medical History Previous Medical History?: Yes Hx Hypertension: Yes Hx Heart Attack/AMI: Yes Hx GERD: Yes Hx Renal Disease: Yes - Surgical History Past Surgical History?: Yes Additional Surgical History: Right anterior chest hemodialysis port - Social History Smoking Status: Unknown if ever smoked - Medications Home Medications: Home Medications Medication Instructions Recorded Confirmed Last Taken Type Albuterol Sulfate [Proair 2 puff IH Q6HR PRN 11/23/21 12/14/21 Unknown History Digihaler] Insulin Aspart (Nf) [NovoLOG 55 unit SQ TID 11/23/21 12/14/21 Unknown History Flexpen] Insulin Glargine [Lantus VIAL] 25 units SQ QHS 11/23/21 12/14/21 Unknown History Omeprazole 20 mg PO DAILY 11/23/21 12/14/21 Unknown History Aspirin [Adult Aspirin] 81 mg PO DAILY #30 tab 01/01/22 Unknown Rx AtorvaSTATin [Lipitor] 80 mg FEEDTUBE QHS #30 tablet 01/01/22 Unknown Rx Calcium Acetate 2 tab PO TID #90 tab 01/01/22 Unknown Rx Fluticasone/Umeclidin/Vilanter 1 each IH DAILY #1 inh 01/01/22 Unknown Rx [Trelegy Ellipta 100-62.5-25] Isosorb Dinit/Hydralazine [Bidil 1 each PO Q8HR #90 tablet 01/01/22 Unknown Rx 20/37.5MG] Midodrine [Proamatine] 5 mg FEEDTUBE TID@0800,1200,1600 01/01/22 Unknown Rx #90 tablet SILVER sulfADIAZINE 50 GRAM 1 applic TP QDAY #2 tube 01/01/22 Unknown Rx [Thermazene 50 Gram] Sevelamer Carbonate [Renvela] 800 mg PO TIDWM 90 Days #270 tab 01/01/22 Unknown Rx calcitrioL [Rocaltrol] 0.5 mcg PO QDAY #30 capsule 01/01/22 Unknown Rx carvediloL [Coreg] 6.25 mg PO BID #60 tablet 01/01/22 Unknown Rx levETIRAcetam [Keppra TAB] 500 mg PO 3XW #15 01/01/22 Unknown Rx ED Physical Exam - General Limitations: No Limitations General appearance: alert, in no apparent distress - Head Head exam: Present: atraumatic, normocephalic, normal inspection - Eye Eye exam: Present: normal appearance - ENT ENT exam: Present: normal exam, normal orophraynx, mucous membranes moist - Neck Neck exam: Present: normal inspection, full ROM. Absent: tenderness, meningismus - Respiratory Respiratory exam: Present: normal lung sounds bilaterally - Cardiovascular Cardiovascular Exam: Present: regular rate, normal rhythm, normal heart sounds - GI/Abdominal GI/Abdominal exam: Present: soft, normal bowel sounds. Absent: distended, tenderness, guarding, rebound, rigid, organomegaly, mass, bruit, pulsatile mass, hernia - Extremities Exam Extremities exam: Absent: calf tenderness - Back Exam Back exam: Present: normal inspection, full ROM. Absent: CVA tenderness (R), CVA tenderness (L) - Neurological Exam Neurological exam: Present: alert, oriented X3, CN II-XII intact - Psychiatric Psychiatric exam: Present: normal mood - Skin Skin exam: Present: normal color ED Course Vital Signs 01/17/22 01/17/22 01/17/22 10:44 16:12 16:13 Temperature 98.2 F Pulse Rate 76 67 Respiratory 16 16 Rate Blood Pressure 118/74 178/74 [Left] O2 Sat by Pulse 98 93 93 Oximetry ED Medical Decision Making - Lab Data Result diagrams: 01/17/22 16:11 01/17/22 16:11 - Radiology Data Radiology results: report reviewed - Medical Decision Making Patient is 66 years old female with history of end-stage renal disease on hemodialysis. Patient brought to the emergency room via EMS from local dialysis center for evaluation of low hemoglobin. Patient presented to dialysis center today and she had a hemoglobin checked today and found that it was 6. Patient currently denying any hematemesis, hematochezia, melena, hemoptysis. Patient is not on any blood thinner medicine. Patient hemoglobin came back at 6.1 with a hematocrit of 19. 2 units of PRBC ordered. I discussed the patient with Dr. Lr, patient search manager and stated they will follow-up with the patient. I discussed the patient with Dr. Grande, he agreed to admit the patient to medical service for further management. Critical Care Time: Yes Critical care time in (mins) excluding proc time.: 35 Critical care attestation.: If time is entered above; I have spent that time in minutes in the direct care of this critically ill patient, excluding procedure time. ED Disposition Clinical Impression: ESRD (end stage renal disease) on dialysis, Acute anemia Disposition: 09 ADMITTED INPATIENT Is pt being admited?: Yes Condition: Stable
[2022-01-17 16:22] LABS: Hemoglobin 6.1 gm/dl (10.1-14.3); Mean Corpuscular HGB Conc 32 % (30-34); Mean Corpuscular Volume 83 fl (79-97); Platelet Count 227 K/mm3 (140-440); Red Blood Count 2.29 M/mm3 (3.65-5.03); Red Cell Distribution Width 19.8 % (13.2-15.2)
[2022-01-17] MEDS ORDERED: SODIUM CHLORIDE 0.9% 500 ML 500 ML IV ONE (16:26)
[2022-01-17 16:33] LABS: INR 1.22 (0.87-1.13)
[2022-01-17 16:46] LABS: Albumin 2.2 g/dL (3.9-5); Blood Urea Nitrogen 16 mg/dL (7-17); Calcium 8.3 mg/dL (8.4-10.2); Hemolysis Index 52
[2022-01-17 16:48] LABS: Alanine Aminotransferase < 5 units/L (7-56); BUN/Creatinine Ratio 4
[2022-01-17 21:35] VITALS: BP 154/81
--- NOTE | 2022-01-17 21:57 | History and Physical Report ---
History of Present Illness Date of examination: 01/17/22 History of present illness: Patient is 66 years old female with history of end-stage renal disease on hemodialysis. Patient brought to the emergency room via EMS from local dialysis center for evaluation of low hemoglobin. Patient presented to [facility] and she had a hemoglobin checked today and found that it was 6. Patient currently denying any hematemesis, hematochezia, melena, hemoptysis. Patient is not on any blood thinner medicine. -: This morning Associated Symptoms: denies other symptoms - Related Data Home Medications Medication Instructions Recorded Confirmed Last Taken Albuterol Sulfate [Proair 2 puff IH Q6HR PRN 11/23/21 12/14/21 Unknown Digihaler] Insulin Aspart (Nf) [NovoLOG 55 unit SQ TID 11/23/21 12/14/21 Unknown Flexpen] Insulin Glargine [Lantus VIAL] 25 units SQ QHS 11/23/21 12/14/21 Unknown Omeprazole 20 mg PO DAILY 11/23/21 12/14/21 Unknown Previous Rx's Medication Instructions Recorded Last Taken Type Aspirin [Adult Aspirin] 81 mg PO DAILY #30 tab 01/01/22 Unknown Rx AtorvaSTATin [Lipitor] 80 mg FEEDTUBE QHS #30 tablet 01/01/22 Unknown Rx Calcium Acetate 2 tab PO TID #90 tab 01/01/22 Unknown Rx Fluticasone/Umeclidin/Vilanter 1 each IH DAILY #1 inh 01/01/22 Unknown Rx [Trelegy Ellipta 100-62.5-25] Isosorb Dinit/Hydralazine [Bidil 1 each PO Q8HR #90 tablet 01/01/22 Unknown Rx 20/37.5MG] Midodrine [Proamatine] 5 mg FEEDTUBE TID@0800,1200,1600 01/01/22 Unknown Rx #90 tablet SILVER sulfADIAZINE 50 GRAM 1 applic TP QDAY #2 tube 01/01/22 Unknown Rx [Thermazene 50 Gram] Sevelamer Carbonate [Renvela] 800 mg PO TIDWM 90 Days #270 tab 01/01/22 Unknown Rx calcitrioL [Rocaltrol] 0.5 mcg PO QDAY #30 capsule 01/01/22 Unknown Rx carvediloL [Coreg] 6.25 mg PO BID #60 tablet 01/01/22 Unknown Rx levETIRAcetam [Keppra TAB] 500 mg PO 3XW #15 01/01/22 Unknown Rx Allergies Allergy/AdvReac Type Severity Reaction Status Date / Time No Known Allergies Allergy Verified 12/11/21 22:19 - Past Medical History --Previous Medical History?: Yes --Hypertension: Yes --Heart Attack/AMI: Yes --GERD: Yes --Renal Disease: Yes - Surgical History --Past Surgical History?: Yes --Additional Surgical History: Right anterior chest hemodialysis port - Social History --Smoking Status: Unknown if ever smoked - Medications Home Medications: Home Medications Medication Instructions Recorded Confirmed Last Taken Type Albuterol Sulfate [Proair 2 puff IH Q6HR PRN 11/23/21 12/14/21 Unknown History Digihaler] Insulin Aspart (Nf) [NovoLOG 55 unit SQ TID 11/23/21 12/14/21 Unknown History Flexpen] Insulin Glargine [Lantus VIAL] 25 units SQ QHS 11/23/21 12/14/21 Unknown History Omeprazole 20 mg PO DAILY 11/23/21 12/14/21 Unknown History Aspirin [Adult Aspirin] 81 mg PO DAILY #30 tab 01/01/22 Unknown Rx AtorvaSTATin [Lipitor] 80 mg FEEDTUBE QHS #30 tablet 01/01/22 Unknown Rx Calcium Acetate 2 tab PO TID #90 tab 01/01/22 Unknown Rx Fluticasone/Umeclidin/Vilanter 1 each IH DAILY #1 inh 01/01/22 Unknown Rx [Trelegy Ellipta 100-62.5-25] Isosorb Dinit/Hydralazine [Bidil 1 each PO Q8HR #90 tablet 01/01/22 Unknown Rx 20/37.5MG] Midodrine [Proamatine] 5 mg FEEDTUBE TID@0800,1200,1600 01/01/22 Unknown Rx #90 tablet SILVER sulfADIAZINE 50 GRAM 1 applic TP QDAY #2 tube 01/01/22 Unknown Rx [Thermazene 50 Gram] Sevelamer Carbonate [Renvela] 800 mg PO TIDWM 90 Days #270 tab 01/01/22 Unknown Rx calcitrioL [Rocaltrol] 0.5 mcg PO QDAY #30 capsule 01/01/22 Unknown Rx carvediloL [Coreg] 6.25 mg PO BID #60 tablet 01/01/22 Unknown Rx levETIRAcetam [Keppra TAB] 500 mg PO 3XW #15 01/01/22 Unknown Rx Review of Systems ROS: Stated complaint: LOW HEMOGLOBIN Other details as noted in HPI Comment: All other systems reviewed and negative Constitutional: denies: chills, diaphoresis, fever Respiratory: denies: cough, shortness of breath, SOB with exertion Cardiovascular: denies: chest pain, palpitations Gastrointestinal: denies: abdominal pain, nausea, vomiting Neurological: weakness. denies: headache, numbness, paresthesias, confusion, abnormal gait Medications and Allergies Allergies Allergy/AdvReac Type Severity Reaction Status Date / Time No Known Allergies Allergy Verified 12/11/21 22:19 Home Medications Medication Instructions Recorded Confirmed Last Taken Type Albuterol Sulfate [Proair 2 puff IH Q6HR PRN 11/23/21 12/14/21 Unknown History Digihaler] Insulin Aspart (Nf) [NovoLOG 55 unit SQ TID 11/23/21 12/14/21 Unknown History Flexpen] Insulin Glargine [Lantus VIAL] 25 units SQ QHS 11/23/21 12/14/21 Unknown History Omeprazole 20 mg PO DAILY 11/23/21 12/14/21 Unknown History Aspirin [Adult Aspirin] 81 mg PO DAILY #30 tab 01/01/22 Unknown Rx AtorvaSTATin [Lipitor] 80 mg FEEDTUBE QHS #30 tablet 01/01/22 Unknown Rx Calcium Acetate 2 tab PO TID #90 tab 01/01/22 Unknown Rx Fluticasone/Umeclidin/Vilanter 1 each IH DAILY #1 inh 01/01/22 Unknown Rx [Trelegy Ellipta 100-62.5-25] Isosorb Dinit/Hydralazine [Bidil 1 each PO Q8HR #90 tablet 01/01/22 Unknown Rx 20/37.5MG] Midodrine [Proamatine] 5 mg FEEDTUBE TID@0800,1200,1600 01/01/22 Unknown Rx #90 tablet SILVER sulfADIAZINE 50 GRAM 1 applic TP QDAY #2 tube 01/01/22 Unknown Rx [Thermazene 50 Gram] Sevelamer Carbonate [Renvela] 800 mg PO TIDWM 90 Days #270 tab 01/01/22 Unknown Rx calcitrioL [Rocaltrol] 0.5 mcg PO QDAY #30 capsule 01/01/22 Unknown Rx carvediloL [Coreg] 6.25 mg PO BID #60 tablet 01/01/22 Unknown Rx levETIRAcetam [Keppra TAB] 500 mg PO 3XW #15 01/01/22 Unknown Rx Exam - Constitutional Vitals: Temp Pulse Resp BP Pulse Ox 97.6 F 68 17 154/81 95 01/17/22 21:15 01/17/22 21:15 01/17/22 21:15 01/17/22 21:15 01/17/22 21:15 Results - Labs CBC & Chem 7: 01/17/22 16:11 01/17/22 16:11 Labs: Laboratory Last Values WBC 6.8 K/mm3 (4.5-11.0) 01/17/22 16:11 RBC 2.29 M/mm3 (3.65-5.03) L 01/17/22 16:11 Hgb 6.1 gm/dl (10.1-14.3) L 01/17/22 16:11 Hct 19.0 % (30.3-42.9) L* 01/17/22 16:11 MCV 83 fl (79-97) 01/17/22 16:11 MCH 27 pg (28-32) L 01/17/22 16:11 MCHC 32 % (30-34) 01/17/22 16:11 RDW 19.8 % (13.2-15.2) H 01/17/22 16:11 Plt Count 227 K/mm3 (140-440) 01/17/22 16:11 PT 16.8 Sec. (12.2-14.9) H 01/17/22 16:11 INR 1.22 (0.87-1.13) H 01/17/22 16:11 APTT 36.0 Sec. (24.2-36.6) 01/17/22 16:11 Sodium 137 mmol/L (137-145) 01/17/22 16:11 Potassium 3.9 mmol/L (3.6-5.0) 01/17/22 16:11 Chloride 96.2 mmol/L (98-107) L 01/17/22 16:11 Carbon Dioxide 32 mmol/L (22-30) H 01/17/22 16:11 Anion Gap 13 mmol/L 01/17/22 16:11 BUN 16 mg/dL (7-17) 01/17/22 16:11 Creatinine 3.8 mg/dL (0.6-1.2) H 01/17/22 16:11 Estimated GFR 14 ml/min 01/17/22 16:11 BUN/Creatinine Ratio 4 % 01/17/22 16:11 Glucose 75 mg/dL (65-100) 01/17/22 16:11 Calcium 8.3 mg/dL (8.4-10.2) L 01/17/22 16:11 Total Bilirubin 0.40 mg/dL (0.1-1.2) 01/17/22 16:11 AST 16 units/L (5-40) 01/17/22 16:11 ALT < 5 units/L (7-56) L 01/17/22 16:11 Alkaline Phosphatase 148 units/L (35-129) H 01/17/22 16:11 Total Protein 7.8 g/dL (6.3-8.2) 01/17/22 16:11 Albumin 2.2 g/dL (3.9-5) L 01/17/22 16:11 Albumin/Globulin Ratio 0.4 % 01/17/22 16:11 Blood Type O POSITIVE 01/17/22 16:11 Antibody Screen Negative 01/17/22 16:11 Crossmatch See Detail 01/17/22 16:11
[2022-01-17] MEDS ORDERED: NON-FORMULARY EACH (Albuterol Sulfate [Proair Digihaler] 90 MCG Aer.Pw.Bas) IH PRN (21:59)
[2022-01-17] MEDS ORDERED: ISOSORB DINIT/HYDRALAZINE 20-37.5MG TAB PO SCH (22:00)
[2022-01-17] MEDS ORDERED: INSULIN GLARGINE 100 UNITS/ML SUB-Q SCH (22:00)
[2022-01-17] MEDS ORDERED: carvediloL 6.25 MG TAB PO SCH (22:00)
[2022-01-17] MEDS ORDERED: ACETAMINOPHEN 325 MG TAB PO PRN (22:07)
[2022-01-17] MEDS ORDERED: ONDANSETRON 4 MG/2 ML INJ IV PRN (22:07)
[2022-01-17] MEDS ORDERED: MORPHINE 2 MG/1 ML INJ IV PRN (22:07)
[2022-01-17] MEDS ORDERED: INSULIN LISPRO 100 UNIT/ML SUB-Q ONE (22:13)
[2022-01-17] MEDS ORDERED: HEPARIN 5,000 UNIT/1 ML VIAL SUB-Q SCH (22:15)
--- NOTE | 2022-01-18 07:18 | Event Note ---
Date: 01/17/22 Patient left AMA in spite of counseling
[2022-01-18] MEDS ORDERED: MIDODRINE 5 MG TAB FEEDTUBE SCH (08:00)
[2022-01-18] MEDS ORDERED: NON-FORMULARY EACH (Calcium Acetate [Calcium Acetate] 667 MG Tablet) PO SCH (08:00)
[2022-01-18] MEDS ORDERED: SEVELAMER CARBONATE 800 MG TAB PO SCH (08:00)
[2022-01-18] MEDS ORDERED: CALCIUM ACETATE 667 MG CAP PO SCH (08:00)
[2022-01-18] MEDS ORDERED: CALCITRIOL 0.5 MCG CAP PO SCH (10:00)
[2022-01-18] MEDS ORDERED: ASPIRIN EC 81 MG TAB PO SCH (10:00)
[2022-01-18] MEDS ORDERED: PANTOPRAZOLE 20 MG TAB PO SCH (10:00)
[2022-01-18] MEDS ORDERED: NON-FORMULARY EACH (Omeprazole [Omeprazole] 20 MG Capsule.Dr) PO SCH (10:00)
== END 2022-01-17 22:26 | disposition left against medical advice (07) ==
LOC: ED 10:40
DX: D64.9 Anemia, unspecified (principal); I13.11 Hypertensive heart and chronic kidney disease without heart failure, with stage 5 chronic kidney disease, or end stage renal disease; N18.6 End stage renal disease; Z99.2 Dependence on renal dialysis; K21.9 Gastro-esophageal reflux disease without esophagitis; Z98.890 Other specified postprocedural states
CPT/HCPCS: 36415; 36430; 80053; 85027; 85610; 85730; 86850; 86900; 86901; 86920; 99284; J7040; P9016; J1815

== ENCOUNTER 2022-01-20 15:23 | Emergency (ER) | payer MEDICARE, MEDICAID ==
[2022-01-20] MEDS ORDERED: SODIUM CHLORIDE 0.9% 1000 ML 1,000 ML IV ONE (18:08)
[2022-01-20 19:23] LABS: Basophils % (Auto) 0.4 % (0.0-1.8); Eosinophils % (Auto) 0.7 % (0.0-4.3); Hematocrit 25.3 % (30.3-42.9); Hemoglobin 8.1 gm/dl (10.1-14.3); Lymphocytes # (Auto) 1.2 K/mm3 (1.2-5.4); Lymphocytes % (Auto) 17.2 % (13.4-35.0); Mean Corpuscular HGB Conc 32 % (30-34); Mean Corpuscular Volume 85 fl (79-97); Monocytes # (Auto) 0.7 K/mm3 (0.0-0.8); Monocytes % (Auto) 10.2 % (0.0-7.3); Platelet Count 179 K/mm3 (140-440); Red Blood Count 2.98 M/mm3 (3.65-5.03)
[2022-01-20 19:24] LABS: Red Cell Distribution Width 20.4 % (13.2-15.2)
[2022-01-20 19:38] LABS: Albumin 2.5 g/dL (3.9-5); BUN/Creatinine Ratio 4; Blood Urea Nitrogen 10 mg/dL (7-17); Calcium 8.2 mg/dL (8.4-10.2); Hemolysis Index 4
[2022-01-20 19:40] LABS: Alanine Aminotransferase < 5 units/L (7-56)
[2022-01-20 20:05] LABS: Chol/HDL Ratio 2.05 %
--- NOTE | 2022-01-20 21:12 | Emergency Department Report ---
ED General Adult HPI - General Chief complaint: Weakness Stated complaint: ABNORMAL LABS Time Seen by Provider: 01/20/22 18:08 Source: patient, EMS Mode of arrival: Stretcher Limitations: Physical Limitation - History of Present Illness Initial comments: Patient is a 66-year-old female sent by dialysis for blood transfusion. Patient states her hemoglobin and there was 6.4. States that she is unable to get dialysis until her hemoglobin is improved. She denies any symptoms. - Related Data Home Medications Medication Instructions Recorded Confirmed Last Taken Albuterol Sulfate [Proair 2 puff IH Q6HR PRN 11/23/21 12/14/21 Unknown Digihaler] Insulin Aspart (Nf) [NovoLOG 55 unit SQ TID 11/23/21 12/14/21 Unknown Flexpen] Insulin Glargine [Lantus VIAL] 25 units SQ QHS 11/23/21 12/14/21 Unknown Omeprazole 20 mg PO DAILY 11/23/21 12/14/21 Unknown Previous Rx's Medication Instructions Recorded Last Taken Type Aspirin [Adult Aspirin] 81 mg PO DAILY #30 tab 01/01/22 Unknown Rx AtorvaSTATin [Lipitor] 80 mg FEEDTUBE QHS #30 tablet 01/01/22 Unknown Rx Calcium Acetate 2 tab PO TID #90 tab 01/01/22 Unknown Rx Fluticasone/Umeclidin/Vilanter 1 each IH DAILY #1 inh 01/01/22 Unknown Rx [Trelegy Ellipta 100-62.5-25] Isosorb Dinit/Hydralazine [Bidil 1 each PO Q8HR #90 tablet 01/01/22 Unknown Rx 20/37.5MG] Midodrine [Proamatine] 5 mg FEEDTUBE TID@0800,1200,1600 01/01/22 Unknown Rx #90 tablet SILVER sulfADIAZINE 50 GRAM 1 applic TP QDAY #2 tube 01/01/22 Unknown Rx [Thermazene 50 Gram] Sevelamer Carbonate [Renvela] 800 mg PO TIDWM 90 Days #270 tab 01/01/22 Unknown Rx calcitrioL [Rocaltrol] 0.5 mcg PO QDAY #30 capsule 01/01/22 Unknown Rx carvediloL [Coreg] 6.25 mg PO BID #60 tablet 01/01/22 Unknown Rx levETIRAcetam [Keppra TAB] 500 mg PO 3XW #15 01/01/22 Unknown Rx Allergies Allergy/AdvReac Type Severity Reaction Status Date / Time No Known Allergies Allergy Verified 01/20/22 17:52 ED Review of Systems ROS: Stated complaint: ABNORMAL LABS Other details as noted in HPI Comment: All other systems reviewed and negative Constitutional: denies: chills, fever Respiratory: denies: cough, shortness of breath, wheezing Cardiovascular: denies: chest pain, palpitations Gastrointestinal: denies: abdominal pain, nausea, diarrhea Genitourinary: denies: urgency, dysuria, discharge Musculoskeletal: denies: back pain, joint swelling, arthralgia Skin: denies: rash, lesions Neurological: denies: headache, weakness, paresthesias Psychiatric: denies: anxiety, depression ED Past Medical Hx - Past Medical History Hx Hypertension: Yes Hx Heart Attack/AMI: Yes Hx GERD: Yes Hx Renal Disease: Yes - Surgical History Additional Surgical History: Right anterior chest hemodialysis port - Social History Smoking Status: Unknown if ever smoked - Medications Home Medications: Home Medications Medication Instructions Recorded Confirmed Last Taken Type Albuterol Sulfate [Proair 2 puff IH Q6HR PRN 11/23/21 12/14/21 Unknown History Digihaler] Insulin Aspart (Nf) [NovoLOG 55 unit SQ TID 11/23/21 12/14/21 Unknown History Flexpen] Insulin Glargine [Lantus VIAL] 25 units SQ QHS 11/23/21 12/14/21 Unknown History Omeprazole 20 mg PO DAILY 11/23/21 12/14/21 Unknown History Aspirin [Adult Aspirin] 81 mg PO DAILY #30 tab 01/01/22 Unknown Rx AtorvaSTATin [Lipitor] 80 mg FEEDTUBE QHS #30 tablet 01/01/22 Unknown Rx Calcium Acetate 2 tab PO TID #90 tab 01/01/22 Unknown Rx Fluticasone/Umeclidin/Vilanter 1 each IH DAILY #1 inh 01/01/22 Unknown Rx [Trelegy Ellipta 100-62.5-25] Isosorb Dinit/Hydralazine [Bidil 1 each PO Q8HR #90 tablet 01/01/22 Unknown Rx 20/37.5MG] Midodrine [Proamatine] 5 mg FEEDTUBE TID@0800,1200,1600 01/01/22 Unknown Rx #90 tablet SILVER sulfADIAZINE 50 GRAM 1 applic TP QDAY #2 tube 01/01/22 Unknown Rx [Thermazene 50 Gram] Sevelamer Carbonate [Renvela] 800 mg PO TIDWM 90 Days #270 tab 01/01/22 Unknown Rx calcitrioL [Rocaltrol] 0.5 mcg PO QDAY #30 capsule 01/01/22 Unknown Rx carvediloL [Coreg] 6.25 mg PO BID #60 tablet 01/01/22 Unknown Rx levETIRAcetam [Keppra TAB] 500 mg PO 3XW #15 01/01/22 Unknown Rx ED Physical Exam - General Limitations: Physical Limitation General appearance: alert, in no apparent distress - Head Head exam: Present: atraumatic, normocephalic - Neck Neck exam: Present: normal inspection - Respiratory Respiratory exam: Present: normal lung sounds bilaterally. Absent: respiratory distress - Cardiovascular Cardiovascular Exam: Present: regular rate, normal rhythm. Absent: systolic murmur, diastolic murmur, rubs, gallop - GI/Abdominal GI/Abdominal exam: Present: soft. Absent: distended, tenderness - Neurological Exam Neurological exam: Present: alert, oriented X3 - Psychiatric Psychiatric exam: Present: normal affect, normal mood - Skin Skin exam: Present: warm, dry, intact, normal color ED Course Vital Signs 01/20/22 17:50 Temperature 98.5 F Pulse Rate 65 Blood Pressure 113/60 [Left] O2 Sat by Pulse 98 Oximetry ED Medical Decision Making - Lab Data Result diagrams: 01/20/22 18:56 01/20/22 18:56 - Medical Decision Making Hemoglobin is 8.1. Vital signs are stable. Patient does not require blood transfusion at this time. Her potassium is within normal limits. I discussed the results with patient. She is stable for discharge home with return precautions. Follow-up with dialysis within 2 days. Critical care attestation.: If time is entered above; I have spent that time in minutes in the direct care of this critically ill patient, excluding procedure time. ED Disposition Clinical Impression: Anemia Disposition: HOME / SELF CARE / HOMELESS Is pt being admited?: No Condition: Stable Instructions: Complete Blood Count
[2022-01-20] MEDS ORDERED: LORazepam 2 MG/ML VIAL ONE (21:19)
[2022-01-20 22:27] VITALS: BP 125/85
--- NOTE | 2022-01-22 12:05 | Electrocardiograph Report ---
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
== END 2022-01-20 22:27 | disposition home or self-care (01) ==
LOC: ED 15:23
DX: D64.9 Anemia, unspecified (principal); I10 Essential (primary) hypertension; Z86.79 Personal history of other diseases of the circulatory system
CPT/HCPCS: 36415; 80053; 80061; 82330; 82550; 83735; 84100; 84443; 84484; 85025; 93005; 99283; J7030; J2060